=== PATIENT | male | born 1975 | race Caucasian/White ===

== ENCOUNTER 2017-10-06 19:20 | Observation (INO) | payer MEDICARE, SELFPAY ==
[2017-10-06 19:23] VITALS: BP 178/112; PULSE 89; RESP 18; TEMP 37.1; O2SAT 100; BMI 23.8
[2017-10-06 21:31] VITALS: BP 144/97; PULSE 101; RESP 19; O2SAT 98
[2017-10-06 21:46] LABS: Absolute Lymphocyte Count 0.54 X10^3/ul (0.83-4.51); Absolute Neutrophil Count 5.2 X10^3/uL (2.0-7.7); Basophil# 0.01 X10^3/uL; Basophil% 0.2 % (0-1); Eosinophil# 0.03 X10^3/uL; Eosinophils% 0.5 % (0-5); Hematocrit 31.7 % (40-54); Lymphocyte # 0.54 X10^3/ul (4.0); Lymphocyte % 9.2 % (19-41); Mean Corp Hgb Conc 31.5 g/gl (32-36); Mean Corpuscular Hgb 29.7 pg (27.0-32.0); Mean Corpuscular Volume 94.1 fL (80-94); Mean Platelet Vol. 9.4 fl (6.2-12.0); Monocyte# 0.07 X10^3/uL; Monocyte% 1.2 % (0-10); Neutrophil # 5.22 X10^3/uL (2.7-7.7); Neutrophil % 88.9 % (47-70); Platelet Count 180 K/mm3 (150-450); RBC Distribution Width CV 13.6 % (11.6-14.6); RBC Distribution Width SD 46.8 fl (35.1-43.9); Red Blood Count 3.37 M/mm3 (4.6-6.2); White Blood Count 5.9 K/mm3 (4.4-11.0)
[2017-10-06 21:48] LABS: Differential Indicated SCAN CRITERIA MET; POSITIVE COUNT NO; POSITIVE DIFFERENTIAL YES; POSITIVE MORPHOLOGY NO
[2017-10-06 22:00] LABS: Anion Gap 10 (5-15); BUN 40 mg/dL (7-18); BUN/Creat Ratio 2.3 RATIO (10-20); Calcium,Total 6.8 mg/dL (8.5-10.1); Chloride 99 mmol/L (98-107); EST Glomerular Filtration Rate 3 mL/min (>60); Est Glom Filt Rate - Afr Amer 4 mL/min (>60); Estimated Creatinine Clearance 5.74 ml/min; Glucose 153 mg/dL (74-106); Potassium 5.6 mmol/L (3.5-5.1); Sodium Level 138 mmol/L (136-145)
--- NOTE | 2017-10-06 22:02 | EKG12_ITS ---
Test Reason : GENERAL ILLNESS Blood Pressure : / mmHG Vent. Rate : 070 BPM Atrial Rate : 070 BPM P-R Int : 162 ms QRS Dur : 084 ms QT Int : 472 ms P-R-T Axes : 056 -59 041 degrees QTc Int : 509 ms Normal sinus rhythm Left anterior fascicular block Prolonged QT Abnormal ECG Confirmed by VERITO VYAS ([id number]), editor farm journal AMOS LEO ([id number]) on 10/09/2017 2:40:36 PM Referred By: FABIAN Confirmed By:VERITO VYAS
--- NOTE | 2017-10-06 22:02 | ED.RN ---
LAB CALLED WITH CRITICAL LAB RESULTS. POTASSIUM 5.[address] PERALTA MADE AWARE. ORDERS PLACED AT THIS TIME NEPHROLOGY PAGED AT THIS TIME
[2017-10-06] MEDS: Sodium Polystyrene Sulfonate 15 GM/60 ML UDC 30 GM PO (22:18)
--- NOTE | 2017-10-06 22:21 | ED.VISSUMM ---
- ER Visit Summary Date of Service: 10/06/17 Chief Complaint: [Need for dialysis] History of Present Illness: The patient is a 42 M [presents to the emergency department with complaint of needing dialysis. Patient states that earlier today he was at [facility] and had a fistulogram but they would not dialyze him. Patient states his last full dialysis was 3 days ago and that his weight at home and today was 79 kg and normally his dry weight is 72 kg. Patient called his dialysis location and was advised to come to the [facility] for dialysis. Patient denies recent illness.] Physical Examination: [HEENT-PERRLA, EOMI. Cranial nerves II through XII grossly intact. TMs clear. Mucous membranes moist. No adenopathy. Cardiovascular-regular rate and rhythm without murmur or ectopy Lungs-clear to auscultation, chest wall stable without crepitus or subcu emphysema Abdomen-normoactive bowel sounds, soft, nontender, no rebound or rigidity, no peritoneal signs. Extremities-intact ?4, normal range of motion, normal pulses, atraumatic]. Patient has a clean dressing over his left upper arm fistula. Patient has a good thrill noted over the fistula. Patient has normal pulses distally. Test Results: [CBC with differential obtained showed a white blood cell count of 5.9, hemoglobin 10, hematocrit 32, platelets 180. Chemistry showed a potassium of 5.6, glucose 153, BUN 40, creatinine 17.5. EKG obtained showed a sinus rhythm with ventricular rate of 70 bpm with slightly peaked T waves noted throughout. Patient had a prolonged QT.] Emergency Department Course and Treatment: [Patient case was discussed with personal property appraiser on-call Dr. Nevarez]. Patient will be admitted and dialyzed first thing in the morning. Patient case was discussed with Dr. Cristiano Hatch who will admit patient. Patient was given 30 g of Kayexalate p.o. Treatment Plan: [Admit for dialysis] Disposition: [Admit] Impression: [Renal failure Hyperkalemia] This note was generated with [employer] dictation software. It may contain incorrect words, spelling, and punctuation that were not noted in review of the chart prior to signing ED Disposition - Plan for ED Patient: Chief Complaint: General Illness Referrals: Tom Conte MD [Primary Care Provider] -
--- NOTE | 2017-10-06 22:24 | ED.DCSUM_ITS ---
- ER Visit Summary Date of Service: 10/06/17 Chief Complaint: [Need for dialysis] History of Present Illness: The patient is a 42 M [presents to the emergency department with complaint of needing dialysis. Patient states that earlier today he was at [facility] and had a fistulogram but they would not dialyze him. Patient states his last full dialysis was 3 days ago and that his weight at home and today was 79 kg and normally his dry weight is 72 kg. Patient called his dialysis location and was advised to come to [facility] for [facility]. Patient denies recent illness.] Physical Examination: [HEENT-PERRLA, EOMI. Cranial nerves II through XII grossly intact. TMs clear. Mucous membranes moist. No adenopathy. Cardiovascular-regular rate and rhythm without murmur or ectopy Lungs-clear to auscultation, chest wall stable without crepitus or subcu emphysema Abdomen-normoactive bowel sounds, soft, nontender, no rebound or rigidity, no peritoneal signs. Extremities-intact ?4, normal range of motion, normal pulses, atraumatic]. Patient has a clean dressing over his left upper arm fistula. Patient has a good thrill noted over the fistula. Patient has normal pulses distally. Test Results: [CBC with differential obtained showed a white blood cell count of 5.9, hemoglobin 10, hematocrit 32, platelets 180. Chemistry showed a potassium of 5.6, glucose 153, BUN 40, creatinine 17.5. EKG obtained showed a sinus rhythm with ventricular rate of 70 bpm with slightly peaked T waves noted throughout. Patient had a prolonged QT.] Emergency Department Course and Treatment: [Patient case was discussed with synthetic cloth binding cutter on-call Dr. Nevarez]. Patient will be admitted and dialyzed first thing in the morning. Patient case was discussed with Dr. Cristiano Hatch who will admit patient. Patient was given 30 g of Kayexalate p.o. Treatment Plan: [Admit for dialysis] Disposition: [Admit] Impression: [Renal failure Hyperkalemia] This note was generated with [employer] dictation software. It may contain incorrect words, spelling, and punctuation that were not noted in review of the chart prior to signing ED Disposition - Plan for ED Patient: Chief Complaint: General Illness Referrals: Tom Conte MD [Primary Care Provider] -
[2017-10-06 22:25] VITALS: BP 144/97; PULSE 91; RESP 18; O2SAT 97
--- NOTE | 2017-10-06 22:28 | PCM.HP.STD ---
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 (4) ESRD (end stage renal disease) on dialysis Status: Acute (5) HTN (hypertension) Status: Chronic Qualifiers: (6) COPD (chronic obstructive pulmonary disease) Status: Chronic Qualifiers: (7) AICD (automatic cardioverter/defibrillator) present Status: Chronic History of Present Illness Date of Admission: 10/06/17 Chief Complaint: renal failure need dialysis The patient is a 42 year old male patient with end stage renal disease who is dialysis dependent presents to the ER not feeling well. He states earlier today he was at [facility] and had is graft worked on for his dialysis. He has had trouble completing dialysis sessions lately due to arm pain and bleeding from his graft site. He has elevate potassium of 5.6 and creatinine is 17. Nephrology was consulted and admission was requested and plan for dialysis i the AM Past Medical History Past Medical History (Chronic Problems): Chronic Problems Non-compliance with renal dialysis (Chronic) Non compliance with medical treatment (Chronic) Non compliance w medication regimen (Chronic) Renal transplant failure and rejection (Chronic) Renal Txp failure x 2 secondary to non-complaince with treatments and therapies. HTN (hypertension) (Chronic) Anemia due to chronic renal failure treated with erythropoietin, stage 5 (Chronic) Hyperphosphatemia (Chronic) COPD (chronic obstructive pulmonary disease) (Chronic) AICD (automatic cardioverter/defibrillator) present (Chronic) Systolic CHF, chronic (Chronic) Allergies Iodinated Contrast- Oral and IV Dye [CONTRASTS] Allergy (Verified 10/06/17 19:22) Fever and skin rash Penicillins Allergy (Verified 10/06/17 19:22) Anaphylaxis cyclobenzaprine [From Flexeril] Adverse Reaction (Verified 10/06/17 19:22) Other hydralazine Adverse Reaction (Verified 10/06/17 19:22) Low blood pressure tramadol [From Ultram] Adverse Reaction (Verified 10/06/17 19:22) Unknown Home Medications: Ambulatory Orders Medication Instructions Recorded Carvedilol [Coreg (Beta Gurinder)] 25 mg PO BID 10/31/15 Famotidine [Pepcid] 20 mg PO DAILY PRN PRN 10/31/15 Calcium Acetate 4 tab PO TIDCM #100 capsule 09/03/16 Lisinopril [Zestril] 5 mg PO DAILY #30 tablet 12/03/16 Clopidogrel Bisulfate [Plavix] 75 mg PO DAILY 10/06/17 Surgical History: cholecystectomy, - - cadaveric renal transplant x2 in 1996 and 2011, subtotal parathyroidectomy, 2 failed kidney transplants, recent dialysis access Smoking Status: Current every day smoker - *Family History Maternal History Items: - - unknown, does not speak to his mom Paternal History Items: Diabetes, Heart Disease - Father had [place], Hypertension Review of Systems Constitutional: Denies: Chills, Fever, Weight Change HEENT: Denies: Head Aches, Sinus Congestion, Sinus Drainage Cardiovascular: Denies: Chest Pain, Palpitations Respiratory: Denies: Cough, Shortness of breath at rest, Sputum production Gastrointestinal: Denies: Abdominal Pain, Nausea, Vomiting Genitourinary: Denies: Dysuria Musculoskeletal: Reports: Arm Pain. Denies: Joint Pain, Joint Tenderness Skin: Denies: Rash, Wounds Neurological: Denies: Numbness, Tingling, Focal weakness Psychiatric: Denies: Anxiety, Depression, Homicidal Ideations, Suicidal Ideations Hematologic/ Lymphatic: Denies: Easy Bruising, Easy Bleeding VTE Information - Inpt Only VTE Present on Admission: No VTE Mechan Device Prophylaxis: SCD's VTE Pharm Prophylaxis ordered?: No - Physical Exam General: Alert, Oriented x3, Cooperative HEENT: Atraumatic, Normocephalic Neck: Supple Lungs: Clear to auscultation, Normal air movement Cardiovascular: Regular rate, Normal S1, Normal S2 Abdomen: Bowel Sounds Present, Soft, Non Tender Extremities: No edema, Capillary Refill Less than 3 Seconds, - - left arm graft +thrill Skin: No rashes, No breakdown Musculoskeletal: No Tenderness to Palpation of Joints or Extremities Neurological: Neuro grossly intact Psych/Mental Status: Normal Affect, Appropriate Vital Signs Temp Pulse Resp BP Pulse Ox 98.8 F 91 18 144/97 H 97 10/06/17 19:23 10/06/17 22:25 10/06/17 22:25 10/06/17 22:25 10/06/17 22:25 Weight: 171 lb 1.259 oz Body Mass Index (BMI) 23.8 Finger Stick Blood Glucose 86 Laboratory Tests Past 24 Hrs 10/06/17 10/06/17 21:05 21:05 WBC 5.9 RBC 3.37 L Hgb 10.0 L Hct 31.7 L MCV 94.1 H MCH 29.7 MCHC 31.5 L RDW 13.6 RDW Differential 46.8 H Plt Count 180 MPV 9.4 Immature Gran % (Auto) 0.000 Neut % (Auto) 88.9 H Lymph % (Auto) 9.2 L [place] % (Auto) 1.2 Eos % (Auto) 0.5 Baso % (Auto) 0.2 Absolute Neuts (auto) 5.2 Absolute Lymphs (auto) 0.54 L Total Counted Not Reportable Differential Comment Sodium 138 Potassium 5.6 H Chloride 99 Carbon Dioxide 29.0 Anion Gap 10 BUN 40 H Creatinine 17.50 H* Estim Creat Clear Calc 5.74 Est GFR (MDRD) Af Amer 4 L Est GFR (MDRD) Non-Af 3 L BUN/Creatinine Ratio 2.3 L Glucose 153 H Calcium 6.8 L Assessment/Plan Chronic Problems Non-compliance with renal dialysis (Chronic) Non compliance with medical treatment (Chronic) Non compliance w medication regimen (Chronic) Renal transplant failure and rejection (Chronic) Renal Txp failure x 2 secondary to non-complaince with treatments and therapies. HTN (hypertension) (Chronic) Anemia due to chronic renal failure treated with erythropoietin, stage 5 (Chronic) Hyperphosphatemia (Chronic) COPD (chronic obstructive pulmonary disease) (Chronic) AICD (automatic cardioverter/defibrillator) present (Chronic) Systolic CHF, chronic (Chronic) Assessment ESRD Plan - admit to general medical floor - consult nephrology - regular diet plan for dialysis in the AM - [facility] [place] for DVT prophylaxis Code Visit Inpatient E&M: 10403 Init Hosp L2
--- NOTE | 2017-10-06 22:39 | HP.PCM_ITS ---
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 (4) ESRD (end stage renal disease) on dialysis Status: Acute (5) HTN (hypertension) Status: Chronic Qualifiers: (6) COPD (chronic obstructive pulmonary disease) Status: Chronic Qualifiers: (7) AICD (automatic cardioverter/defibrillator) present Status: Chronic History of Present Illness Date of Admission: 10/06/17 Chief Complaint: renal failure need dialysis The patient is a 42 year old male patient with end stage renal disease who is dialysis dependent presents to the ER not feeling well. He states earlier today he was at [facility] and had is graft worked on for his dialysis. He has had trouble completing dialysis sessions lately due to arm pain and bleeding from his graft site. He has elevate potassium of 5.6 and creatinine is 17. Nephrology was consulted and admission was requested and plan for dialysis i the AM Past Medical History Past Medical History (Chronic Problems): Chronic Problems Non-compliance with renal dialysis (Chronic) Non compliance with medical treatment (Chronic) Non compliance w medication regimen (Chronic) Renal transplant failure and rejection (Chronic) Renal Txp failure x 2 secondary to non-complaince with treatments and therapies. HTN (hypertension) (Chronic) Anemia due to chronic renal failure treated with erythropoietin, stage 5 ( Chronic) Hyperphosphatemia (Chronic) COPD (chronic obstructive pulmonary disease) (Chronic) AICD (automatic cardioverter/defibrillator) present (Chronic) Systolic CHF, chronic (Chronic) Allergies Iodinated Contrast- Oral and IV Dye [CONTRASTS] Allergy (Verified 10/06/17 19:22 ) Fever and skin rash Penicillins Allergy (Verified 10/06/17 19:22) Anaphylaxis cyclobenzaprine [From Flexeril] Adverse Reaction (Verified 10/06/17 19:22) Other hydralazine Adverse Reaction (Verified 10/06/17 19:22) Low blood pressure tramadol [From Ultram] Adverse Reaction (Verified 10/06/17 19:22) Unknown Home Medications: Ambulatory Orders Medication Instructions Recorded Carvedilol [Coreg (Beta Gurinder)] 25 mg PO BID 10/31/15 Famotidine [Pepcid] 20 mg PO DAILY PRN PRN 10/31/15 Calcium Acetate 4 tab PO TIDCM #100 capsule 09/03/16 Lisinopril [Zestril] 5 mg PO DAILY #30 tablet 12/03/16 Clopidogrel Bisulfate [Plavix] 75 mg PO DAILY 10/06/17 Surgical History: cholecystectomy, - - cadaveric renal transplant x2 in 1996 and 2011, subtotal parathyroidectomy, 2 failed kidney transplants, recent dialysis access Smoking Status: Current every day smoker - *Family History Maternal History Items: - - unknown, does not speak to his mom Paternal History Items: Diabetes, Heart Disease - Father had [place], Hypertension Review of Systems Constitutional: Denies: Chills, Fever, Weight Change HEENT: Denies: Head Aches, Sinus Congestion, Sinus Drainage Cardiovascular: Denies: Chest Pain, Palpitations Respiratory: Denies: Cough, Shortness of breath at rest, Sputum production Gastrointestinal: Denies: Abdominal Pain, Nausea, Vomiting Genitourinary: Denies: Dysuria Musculoskeletal: Reports: Arm Pain. Denies: Joint Pain, Joint Tenderness Skin: Denies: Rash, Wounds Neurological: Denies: Numbness, Tingling, Focal weakness Psychiatric: Denies: Anxiety, Depression, Homicidal Ideations, Suicidal Ideations Hematologic/ Lymphatic: Denies: Easy Bruising, Easy Bleeding VTE Information - Inpt Only VTE Present on Admission: No VTE Mechan Device Prophylaxis: SCD's VTE Pharm Prophylaxis ordered?: No - Physical Exam General: Alert, Oriented x3, Cooperative HEENT: Atraumatic, Normocephalic Neck: Supple Lungs: Clear to auscultation, Normal air movement Cardiovascular: Regular rate, Normal S1, Normal S2 Abdomen: Bowel Sounds Present, Soft, Non Tender Extremities: No edema, Capillary Refill Less than 3 Seconds, - - left arm graft +thrill Skin: No rashes, No breakdown Musculoskeletal: No Tenderness to Palpation of Joints or Extremities Neurological: Neuro grossly intact Psych/Mental Status: Normal Affect, Appropriate Vital Signs Temp Pulse Resp BP Pulse Ox 98.8 F 91 18 144/97 H 97 10/06/17 19:23 10/06/17 22:25 10/06/17 22:25 10/06/17 22:25 10/06/17 22:25 Weight: 171 lb 1.259 oz Body Mass Index (BMI) 23.8 Finger Stick Blood Glucose 86 Laboratory Tests Past 24 Hrs 10/06/17 10/06/17 21:05 21:05 WBC 5.9 RBC 3.37 L Hgb 10.0 L Hct 31.7 L MCV 94.1 H MCH 29.7 MCHC 31.5 L RDW 13.6 RDW Differential 46.8 H Plt Count 180 MPV 9.4 Immature Gran % (Auto) 0.000 Neut % (Auto) 88.9 H Lymph % (Auto) 9.2 L [place] % (Auto) 1.2 Eos % (Auto) 0.5 Baso % (Auto) 0.2 Absolute Neuts (auto) 5.2 Absolute Lymphs (auto) 0.54 L Total Counted Not Reportable Differential Comment Sodium 138 Potassium 5.6 H Chloride 99 Carbon Dioxide 29.0 Anion Gap 10 BUN 40 H Creatinine 17.50 H* Estim Creat Clear Calc 5.74 Est GFR (MDRD) Af Amer 4 L Est GFR (MDRD) Non-Af 3 L BUN/Creatinine Ratio 2.3 L Glucose 153 H Calcium 6.8 L Assessment/Plan Chronic Problems Non-compliance with renal dialysis (Chronic) Non compliance with medical treatment (Chronic) Non compliance w medication regimen (Chronic) Renal transplant failure and rejection (Chronic) Renal Txp failure x 2 secondary to non-complaince with treatments and therapies. HTN (hypertension) (Chronic) Anemia due to chronic renal failure treated with erythropoietin, stage 5 ( Chronic) Hyperphosphatemia (Chronic) COPD (chronic obstructive pulmonary disease) (Chronic) AICD (automatic cardioverter/defibrillator) present (Chronic) Systolic CHF, chronic (Chronic) Assessment ESRD Plan - admit to general medical floor - consult nephrology - regular diet plan for dialysis in the AM [place] [facility] [place] Code Visit Inpatient E&M: 02586 Init Hosp L2
[2017-10-06 23:16] VITALS: BMI 24.1
[2017-10-07 00:16] VITALS: BMI 24.1
[2017-10-07 01:12] VITALS: PULSE 90; RESP 16
[2017-10-07 06:00] VITALS: BP 126/79; PULSE 78; RESP 16; TEMP 36.7; O2SAT 100
[2017-10-07] MEDS: Calcium Acetate 667 MG Capsule 2668 MG PO ×3 (09:46→22:34)
[2017-10-07] MEDS: Clopidogrel Bisulfate 75 MG Tablet PO (09:47)
[2017-10-07] MEDS: Lisinopril 5 MG Tablet PO (09:47)
[2017-10-07] MEDS: Carvedilol 25 MG Tablet PO (09:47)
--- NOTE | 2017-10-07 09:54 | PCM.CONS.R ---
Consultation - Renal PCP/ Referring MD: Requesting physician: [] Primary care physician: Tom Conte MD - History of Present Illness History of Present Illness: The patient is a 42 year old M ESRD on MWF schedule of HD. Patient underwent fistulagram with angioplasty yesterday at [facility] due to bleeding from the AVF site. Patient missed HD session yesterday due to vascular intervention. Patient presented to [place] [facility] because he is not feeling well. K was 5.6. Patient was admitted to get dialysis this morning. Patient is complaining of pain at the cannulation site. ROS: 12 systems review is negative today except the pain at the AVF cannulation site[] - Allergies Allergies: Allergies Iodinated Contrast- Oral and IV Dye [CONTRASTS] Allergy (Verified 10/06/17 19:22) Fever and skin rash Penicillins Allergy (Verified 10/06/17 19:22) Anaphylaxis cyclobenzaprine [From Flexeril] Adverse Reaction (Verified 10/07/17 00:05) dizzy, faints hydralazine Adverse Reaction (Verified 10/06/17 19:22) Low blood pressure tramadol [From Ultram] Adverse Reaction (Verified 10/07/17 00:05) Rash - Current Medications Current Medications: Current Medications Calcium Acetate (Phoslo Gel Cap) 2,668 mg PO TIDCM [facility] Last Admin: 10/07/17 09:46 Dose: 2,668 mg Carvedilol (Coreg) 25 mg PO BID [facility] Last Admin: 10/07/17 09:47 Dose: 25 mg Clopidogrel Bisulfate (Plavix) 75 mg PO DAILY [facility] Last Admin: 10/07/17 09:47 Dose: 75 mg Famotidine (Pepcid) 20 mg PO DAILY PRN PRN PRN Reason: INDIGESTION Lisinopril (Zestril) 5 mg PO DAILY [facility] Last Admin: 10/07/17 09:47 Dose: 5 mg Magnesium Hydroxide (Milk Of Magnesia) 30 ml PO DAILY PRN PRN PRN Reason: Constipation Sodium Chloride () 5 - 30 ml IV UD PRN PRN Reason: SALINE FLUSH - Past Medical History Past Medical History (Chronic Problems): Chronic Problems Non-compliance with renal dialysis (Chronic) Non compliance with medical treatment (Chronic) Non compliance w medication regimen (Chronic) Renal transplant failure and rejection (Chronic) Renal Txp failure x 2 secondary to non-complaince with treatments and therapies. HTN (hypertension) (Chronic) Anemia due to chronic renal failure treated with erythropoietin, stage 5 (Chronic) Hyperphosphatemia (Chronic) COPD (chronic obstructive pulmonary disease) (Chronic) AICD (automatic cardioverter/defibrillator) present (Chronic) Systolic CHF, chronic (Chronic) - Past Surgical History Surgical History: cholecystectomy, - - cadaveric renal transplant x2 in 1996 and 2011, subtotal parathyroidectomy, 2 failed kidney transplants, recent dialysis access - Social History Smoking Status: Current every day smoker - Family History Maternal History Items: - - unknown, does not speak to his mom Paternal History Items: Diabetes, Heart Disease - Father had [place], Hypertension - Physical Exam General: Alert, Oriented x3 HEENT: Atraumatic Oral: Moist Mucosa Neck: Supple, No JVD Lungs: Clear to auscultation Cardiovascular: Regular rate, Regular Rhythm, Normal S1, Normal S2 Abdomen: Bowel Sounds Present, Soft, Non Tender Extremities: No clubbing, No cyanosis, No edema Lymphatic: No Cervical, Supraclavicular, or Inguinal Adenopathy Neurological: Cranial nerves II-XII grossly intact Psych/Mental Status: Normal Affect Vital Signs Temp Pulse Resp BP Pulse Ox 98.0 F 78 16 126/79 H 100 10/07/17 06:00 10/07/17 06:00 10/07/17 06:00 10/07/17 06:00 10/07/17 06:00 Oxygen Delivery Method Room Air Weight: 78.5 kg Body Mass Index (BMI) 24.1 Assessment/Plan 1- ESRD on MWF Missed HD session Friday 10/06 HD session today foor 3.5 hours, BQ 400 BQ 600 UF 2L HD access is LUE AVF which has good thrill and bruit. 2- Hyperkalemia: HD session today with 2 K bath. Will continue to follow Daniela Oro MD [phone]
--- NOTE | 2017-10-07 10:00 | CON.PCM_ITS ---
Consultation - Renal PCP/ Referring MD: Requesting physician: [] Primary care physician: Tom Conte MD - History of Present Illness History of Present Illness: The patient is a 42 year old M ESRD on MWF schedule of HD. Patient underwent fistulagram with angioplasty yesterday at [facility] due to bleeding from the AVF site. Patient missed HD session yesterday due to vascular intervention. Patient presented to [place] ED because he is not feeling well. K was 5.6. Patient was admitted to get dialysis this morning. Patient is complaining of pain at the cannulation site. ROS: 12 systems review is negative today except the pain at the AVF cannulation site[] - Allergies Allergies: Allergies Iodinated Contrast- Oral and IV Dye [CONTRASTS] Allergy (Verified 10/06/17 19:22 ) Fever and skin rash Penicillins Allergy (Verified 10/06/17 19:22) Anaphylaxis cyclobenzaprine [From Flexeril] Adverse Reaction (Verified 10/07/17 00:05) dizzy, faints hydralazine Adverse Reaction (Verified 10/06/17 19:22) Low blood pressure tramadol [From Ultram] Adverse Reaction (Verified 10/07/17 00:05) Rash - Current Medications Current Medications: Current Medications Calcium Acetate (Phoslo Gel Cap) 2,668 mg PO TIDCM [facility] Last Admin: 10/07/17 09:46 Dose: 2,668 mg Carvedilol (Coreg) 25 mg PO BID [facility] Last Admin: 10/07/17 09:47 Dose: 25 mg Clopidogrel Bisulfate (Plavix) 75 mg PO DAILY [facility] Last Admin: 10/07/17 09:47 Dose: 75 mg Famotidine (Pepcid) 20 mg PO DAILY PRN PRN PRN Reason: INDIGESTION Lisinopril (Zestril) 5 mg PO DAILY [facility] Last Admin: 10/07/17 09:47 Dose: 5 mg Magnesium Hydroxide (Milk Of Magnesia) 30 ml PO DAILY PRN PRN PRN Reason: Constipation Sodium Chloride () 5 - 30 ml IV UD PRN PRN Reason: SALINE FLUSH - Past Medical History Past Medical History (Chronic Problems): Chronic Problems Non-compliance with renal dialysis (Chronic) Non compliance with medical treatment (Chronic) Non compliance w medication regimen (Chronic) Renal transplant failure and rejection (Chronic) Renal Txp failure x 2 secondary to non-complaince with treatments and therapies. HTN (hypertension) (Chronic) Anemia due to chronic renal failure treated with erythropoietin, stage 5 ( Chronic) Hyperphosphatemia (Chronic) COPD (chronic obstructive pulmonary disease) (Chronic) AICD (automatic cardioverter/defibrillator) present (Chronic) Systolic CHF, chronic (Chronic) - Past Surgical History Surgical History: cholecystectomy, - - cadaveric renal transplant x2 in 1996 and 2011, subtotal parathyroidectomy, 2 failed kidney transplants, recent dialysis access - Social History Smoking Status: Current every day smoker - Family History Maternal History Items: - - unknown, does not speak to his mom Paternal History Items: Diabetes, Heart Disease - Father had RI, Hypertension - Physical Exam General: Alert, Oriented x3 HEENT: Atraumatic Oral: Moist Mucosa Neck: Supple, No JVD Lungs: Clear to auscultation Cardiovascular: Regular rate, Regular Rhythm, Normal S1, Normal S2 Abdomen: Bowel Sounds Present, Soft, Non Tender Extremities: No clubbing, No cyanosis, No edema Lymphatic: No Cervical, Supraclavicular, or Inguinal Adenopathy Neurological: Cranial nerves II-XII grossly intact Psych/Mental Status: Normal Affect Vital Signs Temp Pulse Resp BP Pulse Ox 98.0 F 78 16 126/79 H 100 10/07/17 06:00 10/07/17 06:00 10/07/17 06:00 10/07/17 06:00 10/07/17 06:00 Oxygen Delivery Method Room Air Weight: 78.5 kg Body Mass Index (BMI) 24.1 Assessment/Plan 1- ESRD on MWF Missed HD session Friday 10/06 HD session today foor 3.5 hours, BQ 400 BQ 600 UF 2L HD access is LUE AVF which has good thrill and bruit. 2- Hyperkalemia: HD session today with 2 K bath. Will continue to follow Daniela Oro MD [phone]
--- NOTE | 2017-10-07 10:25 | PCM.PROGNOTE ---
Subjective: Chief complaint: Follow-up after admission for mild hypokalemia and highly elevated creatinine due to missed hemodialysis secondary to malfunctioning AV fistula. Patient seen and examined. No acute events overnight. He denies any specific complaints. He denies chest pain or shortness of breath. No abdominal pain, nausea vomiting. He mentioned that he has been having trouble and problems with his left arm AV fistula with multiple sticks, bleeding and pain of his left upper arm during dialysis. Yesterday, he underwent fistulogram with balloon dilatation of the left subclavian vein stent and that was done at [facility]. The patient came last night to the emergency room and mentioned that he did not get his hemodialysis yesterday after he had the fistulogram and he gained about 7 kg. His vital signs are stable. - Physical Exam General: Alert, Oriented x3, Cooperative, No apparent distress HEENT: Atraumatic, PERRLA, EOMI Oral: Moist Mucosa, No Gingival or Mucosal Lesions/ Ulcerations Neck: Supple, No JVD, Negative Carotid Bruits, Trachea Midline, Thyroid Normal Size and Texture Lungs: Clear to auscultation, No rhonchi, No wheeze, No rales, Diminished Cardiovascular: Regular rate, Regular Rhythm, Normal S1, Normal S2, No murmurs, PMI Normal Abdomen: Bowel Sounds Present, Soft, Non Tender, Non-Distended, No Hepato-splenomegaly Extremities: No clubbing, No cyanosis, No edema Skin: No rashes, No breakdown Lymphatic: No Cervical, Supraclavicular, or Inguinal Adenopathy Neurological: Cranial nerves II-XII grossly intact, Motor Exam 5/5 strength throughout Psych/Mental Status: Normal Affect, Appropriate, Alert and oriented to time, place, person, mood and affect Vital Signs Temp Pulse Resp BP Pulse Ox 98.0 F 78 16 126/79 H 100 10/07/17 06:00 10/07/17 06:00 10/07/17 06:00 10/07/17 06:00 10/07/17 06:00 Oxygen Delivery Method Room Air Weight: 173 lb 1.006 oz Body Mass Index (BMI) 24.1 Laboratory Tests 10/06/17 10/06/17 Range/Units 21:05 21:05 WBC 5.9 (4.4-11.0) K/mm3 RBC 3.37 L (4.6-6.2) M/mm3 Hgb 10.0 L (13.0-16.5) g/dl Hct 31.7 L (40-54) % MCV 94.1 H (80-94) fL MCH 29.7 (27.0-32.0) pg MCHC 31.5 L (32-36) g/gl RDW 13.6 (11.6-14.6) % RDW Differential 46.8 H (35.1-43.9) fl Plt Count 180 (150-450) K/mm3 MPV 9.4 (6.2-12.0) fl Immature Gran % (Auto) 0.000 (0.0-0.9) % Neut % (Auto) 88.9 H (47-70) % Lymph % (Auto) 9.2 L (19-41) % [place] % (Auto) 1.2 (0-10) % Eos % (Auto) 0.5 (0-5) % Baso % (Auto) 0.2 (0-1) % Absolute Neuts (auto) 5.2 (2.0-7.7) X10^3/uL Absolute Lymphs (auto) 0.54 L (0.83-4.51) X10^3/ul Total Counted Not Reportable Differential Comment Sodium 138 (136-145) mmol/L Potassium 5.6 H (3.5-5.1) mmol/L Chloride 99 (98-107) mmol/L Carbon Dioxide 29.0 (21.0-32.0) mmol/L Anion Gap 10 (5-15) BUN 40 H (7-18) mg/dL Creatinine 17.50 H* (0.70-1.30) mg/dL Estim Creat Clear Calc 5.74 ml/min Est GFR (MDRD) Af Amer 4 L (>60) mL/min Est GFR (MDRD) Non-Af 3 L (>60) mL/min BUN/Creatinine Ratio 2.3 L (10-20) RATIO Glucose 153 H (74-106) mg/dL Calcium 6.8 L (8.5-10.1) mg/dL Medical Necessity - Tobacco Use Smoking Status: Current every day smoker Assessment/Plan This is a 42 years old male patient presented to the emergency room because he missed his hemodialysis yesterday, getting around 7 kg and he requests to be admitted for hemodialysis. The patient has been having issues with his left arm AV fistula with left upper arm pain, bleeding and difficult cannulation for hemodialysis over the last few weeks and he underwent fistulogram with balloon dilatation of the left subclavian vein stent, found to have highly elevated BUN and creatinine as well as mild hyperkalemia. #1 ESRD on hemodialysis: Missed hemodialysis yesterday because of malfunctioning left upper arm AV fistula. Yesterday, he underwent fistulogram with balloon dilatation of the left subclavian vein stent at [facility]. Patient has been having issues with bleeding, pain and difficult cannulation of the AV fistula over the last few weeks and he missed his hemodialysis yesterday. His creatinine is 17 and his potassium is 5.6. He has no symptoms. Denies chest pain or shortness of breath. No evidence of acute pulmonary edema. His vitals are stable. Nephrology consulted and plan for hemodialysis this afternoon. #2 hyperkalemia: Secondary to missed hemodialysis, admission potassium was 5.6. No EKG changes. He received 1 dose of Kayexalate. Plan for hemodialysis today, repeat BMP tomorrow morning. #3 hypertension: Blood pressure stable, continue Coreg and lisinopril. #4 COPD: Clinically stable, pulse ox is normal on room air. Plan for albuterol as needed. #5 chronic anemia: Secondary to anemia of chronic disease, hemoglobin and hematocrit are stable at baseline. #6 ESRD on hemodialysis MWF: Status post failed renal transplant ?2. Currently on hemodialysis. Plan as above. #7 DVT prophylaxis: Subcu heparin. This note was generated with [employer] dictation software. It may contain incorrect words, spelling, and punctuation that were not noted in checking the note before signing.
--- NOTE | 2017-10-07 10:29 | PN_ITS ---
Subjective: Chief complaint: Follow-up after admission for mild hypokalemia and highly elevated creatinine due to missed hemodialysis secondary to malfunctioning AV fistula. Patient seen and examined. No acute events overnight. He denies any specific complaints. He denies chest pain or shortness of breath. No abdominal pain, nausea vomiting. He mentioned that he has been having trouble and problems with his left arm AV fistula with multiple sticks, bleeding and pain of his left upper arm during dialysis. Yesterday, he underwent fistulogram with balloon dilatation of the left subclavian vein stent and that was done at [facility]. The patient came last night to the emergency room and mentioned that he did not get his hemodialysis yesterday after he had the fistulogram and he gained about 7 kg. His vital signs are stable. - Physical Exam General: Alert, Oriented x3, Cooperative, No apparent distress HEENT: Atraumatic, PERRLA, EOMI Oral: Moist Mucosa, No Gingival or Mucosal Lesions/ Ulcerations Neck: Supple, No JVD, Negative Carotid Bruits, Trachea Midline, Thyroid Normal Size and Texture Lungs: Clear to auscultation, No rhonchi, No wheeze, No rales, Diminished Cardiovascular: Regular rate, Regular Rhythm, Normal S1, Normal S2, No murmurs, PMI Normal Abdomen: Bowel Sounds Present, Soft, Non Tender, Non-Distended, No Hepato- splenomegaly Extremities: No clubbing, No cyanosis, No edema Skin: No rashes, No breakdown Lymphatic: No Cervical, Supraclavicular, or Inguinal Adenopathy Neurological: Cranial nerves II-XII grossly intact, Motor Exam 5/5 strength throughout Psych/Mental Status: Normal Affect, Appropriate, Alert and oriented to time, place, person, mood and affect Vital Signs Temp Pulse Resp BP Pulse Ox 98.0 F 78 16 126/79 H 100 10/07/17 06:00 10/07/17 06:00 10/07/17 06:00 10/07/17 06:00 10/07/17 06:00 Oxygen Delivery Method Room Air Weight: 173 lb 1.006 oz Body Mass Index (BMI) 24.1 Laboratory Tests 3 10/06/17 10/06/17 Range/Units 21:05 21:05 WBC 5.9 (4.4-11.0) K/mm3 RBC 3.37 L (4.6-6.2) M/mm3 Hgb 10.0 L (13.0-16.5) g/dl Hct 31.7 L (40-54) % MCV 94.1 H (80-94) fL MCH 29.7 (27.0-32.0) pg MCHC 31.5 L (32-36) g/gl RDW 13.6 (11.6-14.6) % RDW Differential 46.8 H (35.1-43.9) fl Plt Count 180 (150-450) K/mm3 MPV 9.4 (6.2-12.0) fl Immature Gran % (Auto) 0.000 (0.0-0.9) % Neut % (Auto) 88.9 H (47-70) % Lymph % (Auto) 9.2 L (19-41) % [place] % (Auto) 1.2 (0-10) % Eos % (Auto) 0.5 (0-5) % Baso % (Auto) 0.2 (0-1) % Absolute Neuts (auto) 5.2 (2.0-7.7) X10^3/uL Absolute Lymphs (auto) 0.54 L (0.83-4.51) X10^3/ul Total Counted Not Reportable Differential Comment Sodium 138 (136-145) mmol/L Potassium 5.6 H (3.5-5.1) mmol/L Chloride 99 (98-107) mmol/L Carbon Dioxide 29.0 (21.0-32.0) mmol/L Anion Gap 10 (5-15) BUN 40 H (7-18) mg/dL Creatinine 17.50 H* (0.70-1.30) mg/dL Estim Creat Clear Calc 5.74 ml/min Est GFR (MDRD) Af Amer 4 L (>60) mL/min Est GFR (MDRD) Non-Af 3 L (>60) mL/min BUN/Creatinine Ratio 2.3 L (10-20) RATIO Glucose 153 H (74-106) mg/dL Calcium 6.8 L (8.5-10.1) mg/dL Medical Necessity - Tobacco Use Smoking Status: Current every day smoker Assessment/Plan This is a 42 years old male patient presented to the emergency room because he missed his hemodialysis yesterday, getting around 7 kg and he requests to be admitted for hemodialysis. The patient has been having issues with his left arm AV fistula with left upper arm pain, bleeding and difficult cannulation for hemodialysis over the last few weeks and he underwent fistulogram with balloon dilatation of the left subclavian vein stent, found to have highly elevated BUN and creatinine as well as mild hyperkalemia. #1 ESRD on hemodialysis: Missed hemodialysis yesterday because of malfunctioning left upper arm AV fistula. Yesterday, he underwent fistulogram with balloon dilatation of the left subclavian vein stent at [facility]. Patient has been having issues with bleeding, pain and difficult cannulation of the AV fistula over the last few weeks and he missed his hemodialysis yesterday. His creatinine is 17 and his potassium is 5.6. He has no symptoms. Denies chest pain or shortness of breath. No evidence of acute pulmonary edema. His vitals are stable. Nephrology consulted and plan for hemodialysis this afternoon. #2 hyperkalemia: Secondary to missed hemodialysis, admission potassium was 5.6. No EKG changes. He received 1 dose of Kayexalate. Plan for hemodialysis today, repeat BMP tomorrow morning. #3 hypertension: Blood pressure stable, continue Coreg and lisinopril. #4 COPD: Clinically stable, pulse ox is normal on room air. Plan for albuterol as needed. #5 chronic anemia: Secondary to anemia of chronic disease, hemoglobin and hematocrit are stable at baseline. #6 ESRD on hemodialysis MWF: Status post failed renal transplant ?2. Currently on hemodialysis. Plan as above. #7 DVT prophylaxis: Subcu heparin. This note was generated with [employer] dictation software. It may contain incorrect words, spelling, and punctuation that were not noted in checking the note before signing.
--- NOTE | 2017-10-07 11:46 | CASEMGMT ---
RN NIELS Face to Face with patient for initial transition planning/care coordination assessment. RN NIELS introduced self and role at [facility]. Patient sitting in chair, alert and oriented. Patient willing to participate in assessment and is able to answer all questions appropriately. Care providers, pharmacy, and demographics verified. Patient states that he is currently looking for new place to live and has recently been in assisted and has to go back. Patient states he has no further needs or concerns at this time. Referral made to NASRIN Ge for information regarding housing information. CM to follow for discharge planning needs that may arise. Disposition Plan: Patient to discharge home with family support and follow-up plans in place.
[2017-10-07 11:53] VITALS: BP 132/95; PULSE 86; RESP 16; TEMP 36.6; O2SAT 97
--- NOTE | 2017-10-07 13:32 | NURSING ---
pt in halls stated that he does not want his fistula to work so he does not have to go back to assisted. he stated that he wanted the port placed back in his chest that way he would not be allowed to be in assisted. pt also stated that if he had to go to assisted he was going to removed the dressing to his fistula and show the police that he should not be in assisted. he also stated that he might just leave the [facility].
[2017-10-07 14:43] VITALS: BP 129/78; PULSE 66; RESP 16; TEMP 36.7; O2SAT 100
--- NOTE | 2017-10-07 14:49 | NURSING ---
dialysis nurse with pt.
[2017-10-07 19:46] VITALS: BP 115/63; PULSE 68; RESP 16; TEMP 36.7
[2017-10-07 19:50] VITALS: BP 102/53; PULSE 70; RESP 18; TEMP 37.2; O2SAT 98
--- NOTE | 2017-10-07 19:52 | DIALYSIS ---
hemodialysis completed x 3.5 hrs. 2K bath. See HD flowsheet on chart for details. UF 2000ml. Access via AYDE AVG. pt dyllan well.
[2017-10-07] MEDS: Heparin Injection (Vial) 5,000 UNIT/ML VIAL 5000 UNIT SC (22:34)
[2017-10-08 05:13] VITALS: BP 128/84; PULSE 64; RESP 18; TEMP 36.6; O2SAT 100
[2017-10-08 06:12] LABS: Absolute Lymphocyte Count 1.64 X10^3/ul (0.83-4.51); Absolute Neutrophil Count 2.9 X10^3/uL (2.0-7.7); Basophil# 0.02 X10^3/uL; Basophil% 0.4 % (0-1); Eosinophil# 0.11 X10^3/uL; Eosinophils% 2.1 % (0-5); Hematocrit 28.8 % (40-54); Hemoglobin 9.1 g/dl (13.0-16.5); Lymphocyte # 1.64 X10^3/ul (4.0); Lymphocyte % 31.8 % (19-41); Mean Corp Hgb Conc 31.6 g/gl (32-36); Mean Corpuscular Hgb 29.9 pg (27.0-32.0); Mean Corpuscular Volume 94.7 fL (80-94); Mean Platelet Vol. 9.5 fl (6.2-12.0); Monocyte# 0.52 X10^3/uL; Monocyte% 10.1 % (0-10); Neutrophil # 2.86 X10^3/uL (2.7-7.7); Neutrophil % 55.6 % (47-70); Platelet Count 166 K/mm3 (150-450); RBC Distribution Width CV 13.7 % (11.6-14.6); RBC Distribution Width SD 47.8 fl (35.1-43.9); Red Blood Count 3.04 M/mm3 (4.6-6.2); White Blood Count 5.2 K/mm3 (4.4-11.0)
[2017-10-08 06:19] LABS: Anion Gap 8 (5-15); BUN 25 mg/dL (7-18); BUN/Creat Ratio 2.2 RATIO (10-20); Calcium,Total 6.8 mg/dL (8.5-10.1); Chloride 98 mmol/L (98-107); EST Glomerular Filtration Rate 5 mL/min (>60); Est Glom Filt Rate - Afr Amer 6 mL/min (>60); Estimated Creatinine Clearance 8.66 ml/min; Glucose 84 mg/dL (74-106); Potassium 4.2 mmol/L (3.5-5.1); Sodium Level 140 mmol/L (136-145)
[2017-10-08 06:26] LABS: POSITIVE COUNT NO; POSITIVE DIFFERENTIAL NO; POSITIVE MORPHOLOGY NO
--- NOTE | 2017-10-08 08:50 | DCINST_ITS ---
You will use the following diet at home:: Cardiac, Renal (restricted protein/ sodium) Your food should be the consistency of: Regular Discharge Activity: Return to Normal Activity Weight Bearing Status: Full weight bearing Call your doctor if you observe: Fever of 101 or Higher, Shortness of breath, Dizziness, Fainting spells, Chest pain, Increased palpitations (irregular heartbeat), Uncontrolled pain Additional Instructions: Please follow-up with your kidney doctor as soon as your vascular surgeon who performed the dialysis fistula. Allergies/Adverse Reactions: Allergies Iodinated Contrast- Oral and IV Dye [CONTRASTS] Allergy (Verified 10/06/17 19:22 ) Fever and skin rash Penicillins Allergy (Verified 10/06/17 19:22) Anaphylaxis cyclobenzaprine [From Flexeril] Adverse Reaction (Verified 10/07/17 00:05) dizzy, faints hydralazine Adverse Reaction (Verified 10/06/17 19:22) Low blood pressure tramadol [From Ultram] Adverse Reaction (Verified 10/07/17 00:05) Rash Medications to take at Discharge Carvedilol [Coreg (Beta Gurinder)] 25 mg PO BID 10/31/15 Famotidine [Pepcid] 20 mg PO DAILY PRN PRN 10/31/15 Calcium Acetate 4 tab PO TIDCM #100 capsule 09/03/16 Lisinopril [Zestril] 5 mg PO DAILY #30 tablet 12/03/16 Clopidogrel Bisulfate [Plavix] 75 mg PO DAILY 10/06/17 Primary Care Physician: Tom Conte MD [Primary Care Provider] - Please follow up with your Primary Care Physician in: 1 week.
--- NOTE | 2017-10-08 09:39 | CASEMGMT ---
Social Work Note NASRIN met with pt to discuss discharge planning. Per RN NIELS Red pt is from correction and is not wanting to go back and pt is currently looking for houses to live in as well. NASRIN met with pt, introduced self and role at [facility]. Pt states that he is unsure at this time where he is going at discharge. Pt states that he is waiting for a phone call to determine if he is able to go home or go back to correction at discharge. SW offered support to pt in case he does have to go to correction. Pt states that previously he was living at his cousins home. Pt states that he is currently still looking for a place to live. SW offered to provide pt with housing resources but pt denied. He states 'I don't need any resources I have it handled. SW let pt know that if he decides to have housing resources to let staff know and this worker can come back to see him. Pt denied additional needs or concerns at this time. Plan: Return home Rosalina Ge [employer], [employer]
[2017-10-08 10:00] VITALS: BP 126/94; PULSE 71; RESP 18; TEMP 37.1; O2SAT 100
[2017-10-08] MEDS: Clopidogrel Bisulfate 75 MG Tablet PO (10:06)
[2017-10-08] MEDS: Heparin Injection (Vial) 5,000 UNIT/ML VIAL 5000 UNIT SC (10:06)
[2017-10-08] MEDS: Calcium Acetate 667 MG Capsule 2668 MG PO ×3 (10:06→18:01)
[2017-10-08] MEDS: Carvedilol 25 MG Tablet PO (10:06)
[2017-10-08] MEDS: Nepro Liquid 120 ML LIQUID PO (10:07)
--- NOTE | 2017-10-08 11:30 | PN.RENAL_ITS ---
Subjective: Tolerated HD session well yesterday with 2L UF Seen today today during HD session Tolerating the session well - Physical Exam General: Alert, Oriented x3 HEENT: Atraumatic Oral: Moist Mucosa Neck: Supple, No JVD Lungs: Clear to auscultation, Normal air movement Cardiovascular: Regular rate, Normal S1, Normal S2 Abdomen: Bowel Sounds Present, Soft Extremities: No clubbing, No edema Musculoskeletal: No Tenderness to Palpation of Joints or Extremities Lymphatic: No Cervical, Supraclavicular, or Inguinal Adenopathy Neurological: Cranial nerves II-XII grossly intact, Neuro grossly intact Psych/Mental Status: Normal Affect Vital Signs Temp Pulse Resp BP Pulse Ox 98 F 64 18 128/84 H 100 10/08/17 05:13 10/08/17 05:13 10/08/17 05:13 10/08/17 05:13 10/08/17 05:13 Oxygen Delivery Method Room Air Weight: 78.5 kg Body Mass Index (BMI) 24.1 Intake and Output for Last 24 Hours 10/06/17 10/07/17 10/08/17 23:59 23:59 23:59 Intake Total 950 / 950 1600 / 1600 Output Total 1999 / 1999 Balance -1050 / -1050 1600 / 1600 Laboratory Tests Past 24 Hrs 10/08/17 10/08/17 05:10 05:10 WBC 5.2 RBC 3.04 L Hgb 9.1 L Hct 28.8 L MCV 94.7 H MCH 29.9 MCHC 31.6 L RDW 13.7 RDW Differential 47.8 H Plt Count 166 MPV 9.5 Immature Gran % (Auto) 0.000 Neut % (Auto) 55.6 Lymph % (Auto) 31.8 [place] % (Auto) 10.1 H Eos % (Auto) 2.1 Baso % (Auto) 0.4 Absolute Neuts (auto) 2.9 Absolute Lymphs (auto) 1.64 Total Counted Not Reportable Sodium 140 Potassium 4.2 Chloride 98 Carbon Dioxide 34.0 H Anion Gap 8 BUN 25 H Creatinine 11.60 H* Estim Creat Clear Calc 8.66 Est GFR (MDRD) Af Amer 6 L Est GFR (MDRD) Non-Af 5 L BUN/Creatinine Ratio 2.2 L Glucose 84 Calcium 6.8 L Medical Necessity - Tobacco Use Smoking Status: Current every day smoker Assessment/Plan 1- ESRD on MWF Last HD session 10/07 with 2 L UF HD session today foor 3 hours, BQ 400 BQ 600 UF 2L HD access is LUE AVF which has good thrill and bruit. 2- Hyperkalemia: resolved with HD Will continue to follow Daniela Oro MD [phone]
[2017-10-08 15:00] VITALS: BP 147/81; PULSE 59; RESP 16; TEMP 37.1; O2SAT 99
--- NOTE | 2017-10-08 17:34 | DIALYSIS ---
HD X 3 HRS ON A 3K BATH. UF -2600ML. TOLERATED TREATMENT WELL. POST WEIGHT 74.8KG. EPOGEN AND VENOFER GIVEN DURING DIALYSIS. [place] [facility]. REPORT GIVEN TO FLOOR RN
--- NOTE | 2017-10-08 18:29 | NURSING ---
while giving discharge inst pt asked if he could stay 2 more days because he does not want to go to custodial. told pt no. he stated that he was going to leave and go to a different hospital. he
--- NOTE | 2017-10-09 12:42 | PCM.DC.SUM ---
Discharge Date and Diagnosis Date of Admission: 10/06/17 Date of Discharge: 10/08/17 - Primary Discharge Diagnosis #1 missed hemodialysis, probable early uremia. #2 hyperkalemia. #3 malfunctioning left upper arm AV fistula, status post fistulogram with balloon dilatation of the left subclavian vein stent that was done at [facility] on the day of admission. - Secondary Discharge Diagnosis Chronic Problems Non-compliance with renal dialysis (Chronic) Non compliance with medical treatment (Chronic) Non compliance w medication regimen (Chronic) Renal transplant failure and rejection (Chronic) Renal Txp failure x 2 secondary to non-complaince with treatments and therapies. HTN (hypertension) (Chronic) Anemia due to chronic renal failure treated with erythropoietin, stage 5 (Chronic) Hyperphosphatemia (Chronic) COPD (chronic obstructive pulmonary disease) (Chronic) AICD (automatic cardioverter/defibrillator) present (Chronic) Systolic CHF, chronic (Chronic) Hospital Course and Treatment Dr. Oro: Nephrology. Operations: None Procedures: Dialysis Summary of Care Provided: Patient seen and examined on the day of discharge and appeared to be stable for discharge home. He denied any significant symptoms. Vital signs are stable. - Physical Exam General: Alert, Oriented x3, Cooperative, No apparent distress. HEENT: Atraumatic, PERRLA, EOMI. Neck: Supple, No JVD, Negative Carotid Bruits, Trachea Midline, Thyroid Normal. Lungs: Clear to auscultation, Normal air movement, No rhonchi, No wheeze, No rales. Cardiovascular: Regular rate, Regular Rhythm, Normal S1, Normal S2, PMI Normal. Abdomen: Bowel Sounds Present, Soft, Non Tender, Non-Distended, No Hepato-splenomegaly. Extremities: No clubbing, No cyanosis, No edema Skin: No rashes, No breakdown Neurological: Neuro grossly intact Vital Signs are stable. Hospital course: The patient is a 42 year old M presented to the emergency room requesting admission for hemodialysis because he missed his hemodialysis after he underwent fistulogram with balloon dilatation of the left subclavian vein stent at [facility] that was done on the day of admission. On admission, his BUN was 40 and his creatinine was 17.5. Patient was anxious upon admission and that could be due to probable early uremia. His potassium was 5.6 upon admission without EKG changes. Nephrology consulted and recommended to continue dialysis through the left upper arm AV fistula. Dialysis performed ?2 during this admission through the left upper arm AV fistula without any problems. His potassium came back to normal after dialysis. Patient's vital signs were stable throughout admission. Patient discharged home in a stable medical condition, discharged on his chronic home medication without any changes, recommended follow-up with his customer energy specialist in 2 weeks, follow-up with PCP in 1 week and follow-up with his vascular surgeon at [facility] in the near future for repeat evaluation of his left upper arm AV fistula. Discharge Activity: Return to Normal Activity Weight Bearing Status: Full weight bearing Call your doctor if you observe: Fever of 101 or Higher, Shortness of breath, Dizziness, Fainting spells, Chest pain, Increased palpitations (irregular heartbeat), Uncontrolled pain Home Medications: Medications to take at Discharge Carvedilol [Coreg (Beta Gurinder)] 25 mg PO BID 10/31/15 Famotidine [Pepcid] 20 mg PO DAILY PRN PRN 10/31/15 Calcium Acetate 4 tab PO TIDCM #100 capsule 09/03/16 Lisinopril [Zestril] 5 mg PO DAILY #30 tablet 12/03/16 Clopidogrel Bisulfate [Plavix] 75 mg PO DAILY 10/06/17 Primary Care Physician: Tom Conte MD [Primary Care Provider] - Please follow up with your Primary Care Physician in: 1 week. Please Follow Up With: Juni Conte Disposition: Home Minutes spent on discharge:: 32 Patient Condition:: Stable Medical Necessity - Tobacco Use Smoking Status: Current every day smoker Meaningful Use Info Meaningful Use Diagnoses (Choose all that apply): None applicable Code Visit Inpatient E&M: 17529 Disch Hosp
--- NOTE | 2017-10-09 12:47 | DS.PCM_ITS ---
Discharge Date and Diagnosis Date of Admission: 10/06/17 Date of Discharge: 10/08/17 - Primary Discharge Diagnosis #1 missed hemodialysis, probable early uremia. #2 hyperkalemia. #3 malfunctioning left upper arm AV fistula, status post fistulogram with balloon dilatation of the left subclavian vein stent that was done at [facility] on the day of admission. - Secondary Discharge Diagnosis Chronic Problems Non-compliance with renal dialysis (Chronic) Non compliance with medical treatment (Chronic) Non compliance w medication regimen (Chronic) Renal transplant failure and rejection (Chronic) Renal Txp failure x 2 secondary to non-complaince with treatments and therapies. HTN (hypertension) (Chronic) Anemia due to chronic renal failure treated with erythropoietin, stage 5 ( Chronic) Hyperphosphatemia (Chronic) COPD (chronic obstructive pulmonary disease) (Chronic) AICD (automatic cardioverter/defibrillator) present (Chronic) Systolic CHF, chronic (Chronic) Hospital Course and Treatment Dr. Oro: Nephrology. Operations: None Procedures: Dialysis Summary of Care Provided: Patient seen and examined on the day of discharge and appeared to be stable for discharge home. He denied any significant symptoms. Vital signs are stable. - Physical Exam General: Alert, Oriented x3, Cooperative, No apparent distress. HEENT: Atraumatic, PERRLA, EOMI. Neck: Supple, No JVD, Negative Carotid Bruits, Trachea Midline, Thyroid Normal. Lungs: Clear to auscultation, Normal air movement, No rhonchi, No wheeze, No rales. Cardiovascular: Regular rate, Regular Rhythm, Normal S1, Normal S2, PMI Normal. Abdomen: Bowel Sounds Present, Soft, Non Tender, Non-Distended, No Hepato- splenomegaly. Extremities: No clubbing, No cyanosis, No edema Skin: No rashes, No breakdown Neurological: Neuro grossly intact Vital Signs are stable. Hospital course: The patient is a 42 year old M presented to the emergency room requesting admission for hemodialysis because he missed his hemodialysis after he underwent fistulogram with balloon dilatation of the left subclavian vein stent at [facility] that was done on the day of admission. On admission, his BUN was 40 and his creatinine was 17.5. Patient was anxious upon admission and that could be due to probable early uremia. His potassium was 5.6 upon admission without EKG changes. Nephrology consulted and recommended to continue dialysis through the left upper arm AV fistula. Dialysis performed ?2 during this admission through the left upper arm AV fistula without any problems. His potassium came back to normal after dialysis. Patient's vital signs were stable throughout admission. Patient discharged home in a stable medical condition, discharged on his chronic home medication without any changes , recommended follow-up with his ditch tender in 2 weeks, follow-up with PCP in 1 week and follow-up with his vascular surgeon at [facility] in the near future for repeat evaluation of his left upper arm AV fistula. Discharge Activity: Return to Normal Activity Weight Bearing Status: Full weight bearing Call your doctor if you observe: Fever of 101 or Higher, Shortness of breath, Dizziness, Fainting spells, Chest pain, Increased palpitations (irregular heartbeat), Uncontrolled pain Home Medications: Medications to take at Discharge Carvedilol [Coreg (Beta Gurinder)] 25 mg PO BID 10/31/15 Famotidine [Pepcid] 20 mg PO DAILY PRN PRN 10/31/15 Calcium Acetate 4 tab PO TIDCM #100 capsule 09/03/16 Lisinopril [Zestril] 5 mg PO DAILY #30 tablet 12/03/16 Clopidogrel Bisulfate [Plavix] 75 mg PO DAILY 10/06/17 Primary Care Physician: Tom Conte MD [Primary Care Provider] - Please follow up with your Primary Care Physician in: 1 week. Please Follow Up With: Juni Conte Disposition: Home Minutes spent on discharge:: 32 Patient Condition:: Stable Medical Necessity - Tobacco Use Smoking Status: Current every day smoker Meaningful Use Info Meaningful Use Diagnoses (Choose all that apply): None applicable Code Visit Inpatient E&M: 60092 Disch Hosp
== END 2017-10-08 18:21 | disposition home or self-care (01) ==
LOC: ED 21:45 → MS3 23:05
PROVIDERS: Admitting Provider Family Medicine; Emergency Provider Emergency Medicine; Family Provider Family Medicine; PCP Family Medicine; Visit Provider Hospitalist
DX: E11.22 Type 2 diabetes mellitus with diabetic chronic kidney disease (principal); I13.2 Hypertensive heart and chronic kidney disease with heart failure and with stage 5 chronic kidney disease, or end stage renal disease; N18.6 End stage renal disease; I50.22 Chronic systolic (congestive) heart failure; D63.1 Anemia in chronic kidney disease; Z99.2 Dependence on renal dialysis; Z94.0 Kidney transplant status; Z91.15 Patient's noncompliance with renal dialysis; T86.12 Kidney transplant failure; J44.9 Chronic obstructive pulmonary disease, unspecified; E87.5 Hyperkalemia; Z95.810 Presence of automatic (implantable) cardiac defibrillator; F17.210 Nicotine dependence, cigarettes, uncomplicated
CPT/HCPCS: 36415; 80048; 85025; 90937; 93005; 96372; 96374; 96375; 97802; 99218; 99284; 99406; J0885; A4216; G0257; G0378

== ENCOUNTER 2018-02-05 08:47 | Day surgery (SDC) | payer MEDICARE, SELFPAY ==
[2018-01-30 13:38] LABS: Hemoglobin 11.6 g/dl (13.0-16.5); Mean Corp Hgb Conc 32.2 g/gl (32-36); Mean Corpuscular Hgb 30.1 pg (27.0-32.0); Mean Corpuscular Volume 93.3 fL (80-94); Mean Platelet Vol. 9.7 fl (6.2-12.0); Platelet Count 160 K/mm3 (150-450); RBC Distribution Width CV 13.1 % (11.6-14.6); RBC Distribution Width SD 43.4 fl (35.1-43.9); Red Blood Count 3.86 M/mm3 (4.6-6.2); White Blood Count 7.9 K/mm3 (4.4-11.0)
[2018-01-30 13:42] LABS: Scan Indicated on CBC? Y/N NO
[2018-01-30 14:14] LABS: Anion Gap 8 (5-15); BUN 20 mg/dL (7-18); BUN/Creat Ratio 1.9 RATIO (10-20); Chloride 95 mmol/L (98-107); EST Glomerular Filtration Rate 6 mL/min (>60); Est Glom Filt Rate - Afr Amer 7 mL/min (>60); Glucose 96 mg/dL (74-106); Potassium 4.1 mmol/L (3.5-5.1); Sodium Level 136 mmol/L (136-145)
[2018-02-05] VITALS (10 sets, daily range): BP systolic 98–132; BP diastolic 34–59; PULSE 59–82; RESP 16–18; TEMP 36.2–36.9; O2SAT 97–100; BMI 22.6
--- NOTE | 2018-02-05 11:11 | DCINST_ITS ---
Discharge Diet: Renal Diet Discharge Activity: May Not Drive - for 2-3 days or while taking narcotic pain medications., May Not Shower, May Take a Tub Bath - in 5 days. Lifting Restrictions: 5 pounds Keep extremity elevated above heart level: - - Keep arm elevated above the heart level for 3 days. Additional Activity Instructions:: Exercise hand vigorously with a stress ball. Call your doctor if your incision/area has: Continuous Slow Oozing, Sudden Increased Bleeding - apply pressure and call your doctor., Increased Pain/ Swelling, Increased Redness, Foul Smelling Discharge Call your doctor if you observe: Fever of 101 or Higher Suture Line Care: Avoid Pulling/Pushing, Avoid Pinching/Bending Cleanse incision/area with: Keep Dressing Clean & Dry Additional Dressing/Incision Instructions:: Please elevate your right arm for comfort. If possible please leave the Rogers wrap in place for 3-4 days. Try to strictly elevate your right upper extremity to limit swelling and pain. After 3 -4 days she may remove the Rogers wrap and the cough dressing. Leave the Steri- Strips in place. Keep the incision clean and dry place Allergies/Adverse Reactions: Allergies Iodinated Contrast- Oral and IV Dye [CONTRASTS] Allergy (Verified 01/29/18 08:17 ) Fever and skin rash Penicillins Allergy (Verified 01/29/18 08:17) Anaphylaxis cyclobenzaprine [From Flexeril] Adverse Reaction (Verified 01/29/18 08:17) dizzy, faints hydralazine Adverse Reaction (Verified 01/29/18 08:17) Low blood pressure tramadol [From Ultram] Adverse Reaction (Verified 01/29/18 08:17) Rash Medications to take at Discharge Carvedilol [Coreg (Beta Gurinder)] 25 mg PO BID 10/31/15 Calcium Acetate 4 tab PO TIDCM #100 cap 09/03/16 Oxycodone HCl/Acetaminophen [Percocet 5/325] 1 tab PO Q6H PRN PRN 2 Days #6 tab 02/05/18 The following prescriptions were given: Oxycodone HCl/Acetaminophen [Percocet 5/325] 1 tab PO Q6H PRN PRN 2 Days #6 tab PRN Reason: Pain Primary Care Physician: Tom Conte MD [Primary Care Provider] - Test Results: Test results from this visit will be discussed in further detail at your follow- up appointment, if applicable. Please Follow Up With: Kadeem Ventura MD - [phone] When: Call to make an appointment for suture removal and follow up in 1 week.
[2018-02-05] MEDS: Bupivacaine 0.5% PF 10 ML VIAL (11:23)
[2018-02-05] MEDS: Heparin Injection (Vial) 5,000 UNIT/ML VIAL 5000 UNIT (13:00)
--- NOTE | 2018-02-05 14:02 | OP.PCM_ITS ---
Problem List (1) ESRD (end stage renal disease) on dialysis Status: Acute Report of Operation Date of Procedure: 02/05/18 Pre-Operative Diagnosis: Stage V renal failure. Thrombosed left upper extremity fistula. Need for arteriovenous hemodialysis access Post-Operative Diagnosis: Same Surgery/Procedure Performed:: Transposition right extremity basilic vein to brachial artery arteriovenous fistula creation Description of Surgical Findings:: Timeout informed consent was obtained. 42-year-old gent was taken out from placement table underwent monitored anesthesia care local anesthetic. Clindamycin 900 mg given intravenously preoperatively. The right upper extremity was sterilely prepped and draped. 20 cc of 1% lidocaine mixed 50-50 with 0.5% Marcaine and 21 cc of 0.5% lidocaine was used as local anesthetic the basilic vein appear to extend past the antecubital crease onto the proximal forearm. Local was instilled. A stepwise incision was made in the right proximal forearm and upper inner arm. Tedious sharp and blunt dissection was used to dissect free the basilic vein. Side branches were secured with 3-0 Vicryl ligatures and hemoclips were indicated that dissection was performed all the way up to the axilla. I then had a quite a reasonable length of vein. I then measured the length of vein and at the antecubital area did a sharp blunt dissection to identify the brachial artery vessel loop was placed. A tunneler was used to connect between the brachial artery site and the upper arm site and a generous curve as there was extra vein available. Having then tunneled the vein patient then received 8000 units of heparin. Peripheral vascular clamps are placed on the brachial artery 11 blade was used to make a arteriotomy which was extended with Christian scissors. A end-to-side anastomosis of the basilic vein to brachial artery was created with a running 7-0 Prolene. Repair suture of 7-0 Prolene was additionally utilized to obtain complete hemostasis. Solid anastomosis was felt to be intact. Good flow was noted. There was a pulse thrill and bruit. The right hand was then inspected. Appear to be pink and slightly diminished capillary refill. Doppler signals demonstrated at least biphasic flow at the radial artery and monophasic flow of the ulnar artery. The wounds were now closed with deep layer of multiple interrupted 3-0 Vicryl sutures. The skin edges are approximated running septic or 4-0 Monocryl. Steri -Strips Telfa soft roll Rogers wrap applied. Sponge and instrument and needle counts were reported the surgeon be correct. Specimens none. Drains none. Blood loss 150 cc. Kadeem Ventura M.D., F.A.C.S. Type of Anesthesia:: Local MAC Anesthesiologist: Houston Rehman
== END 2018-02-05 17:01 | disposition home or self-care (01) ==
LOC: SDC 08:48 → AC 08:48
PROVIDERS: Family Provider Family Medicine; PCP Family Medicine; Visit Provider Surgery
PROC: (CPT 36825; principal; 2018-02-05 10:45)
DX: T82.868A Thrombosis due to vascular prosthetic devices, implants and grafts, initial encounter (principal); I13.2 Hypertensive heart and chronic kidney disease with heart failure and with stage 5 chronic kidney disease, or end stage renal disease; N18.6 End stage renal disease; I50.22 Chronic systolic (congestive) heart failure; D63.1 Anemia in chronic kidney disease; T86.12 Kidney transplant failure; F17.200 Nicotine dependence, unspecified, uncomplicated; I27.20 Pulmonary hypertension, unspecified; Z99.2 Dependence on renal dialysis; Z91.15 Patient's noncompliance with renal dialysis; Z95.810 Presence of automatic (implantable) cardiac defibrillator; Z79.899 Other long term (current) drug therapy
CPT/HCPCS: 36825; 36415; 80048; 85027

== ENCOUNTER → 2020-11-02 13:39 | Outpatient (CLI) | payer MEDICARE, MEDICAID, SELFPAY ==
[2020-10-20 13:23] VITALS: BMI 23.8
--- NOTE | 2020-11-02 13:43 | ECHOD_ITS ---
Reason For Study: MURMUR Procedure This was a 2D Doppler, Color Flow transthoracic echocardiogram. Exam performed in department. Left Ventricle Normal LV size. Left ventricular systolic function is lower limits of normal. The estimated ejection fraction is 50 %. Stage 2 diastolic dysfunction. No regional wall motion abnormalities noted. Right Ventricle Normal RV size. ICD or pacer leads identified within the right ventricle. Normal systolic function. Atria The left atrium is moderately enlarged. Normal right atrium. Mitral Valve There is mild mitral annular calcification. Mild (1+) eccentric mitral valve insufficiency. Tricuspid Valve Normal tricuspid valve. Mild tricuspid valve insufficiency. Pulmonary artery systolic pressure is 32 mmHg. Aortic Valve Trisinus/trileaflet aortic valve. Great Vessels Normal aortic root. The pulmonary artery is normal size. Normal inferior vena cava. Pericardium/Pleural No pericardial effusion. Medication DO NOT USE DEFINITY D/T RENAL FAILURE!!. MMode/2D Measurements & Calculations LVIDd: 5.0 cm IVSd: 1.1 cm Ao root diam: 4.0 cm LVIDs: 3.5 cm LVPWd: 1.2 cm RVDd: 3.7 cm FS: 30.9 % LAV(MOD-bp): 77.5 ml LA A4 area: 26.6 cm2 LA dimension(2D): 3.7 cm LAV(MOD-bp) Indexed: 40.1 ml/m2 LAV(MOD-sp2): 63.3 ml LAV(MOD-sp4): 95.6 ml RA A4 area: 19.0 cm2 Time Measurements MV dec time: 0.22 sec Doppler Measurements & Calculations MV E max kasi: 119.3 cm/sec Lat Peak E' Kasi: 11.6 cm/sec Med Peak E' Kasi: 5.9 cm/sec MV A max kasi: 97.5 cm/sec E/E' lat: 10.3 E/E' med: 20.1 MV E/A: 1.2 Ao V2 max: 242.5 cm/sec LV V1 max: 118.7 cm/sec PA V2 max: 131.8 cm/sec Ao max P.5 mmHg LV V1 max P.6 mmHg Ao V2 mean: 167.4 cm/sec LV V1 mean P.9 mmHg Ao mean P.5 mmHg LV V1 mean: 80.2 cm/sec Ao V2 VTI: 49.1 cm LV V1 VTI: 26.4 cm TR max kasi: 262.7 cm/sec TR max P.6 mmHg ECHO/Echo Complete Interpretation Summary Normal LV size. Left ventricular systolic function is lower limits of normal. The estimated ejection fraction is 50 %. Stage 2 diastolic dysfunction. Compared to previous study, the left ventricular systolic function has improved .. Ordering Physician: Joan Joe/Pablo Rogers Referring Physician: EDUARDO BENTON Performed By: Zuleyma Chamberlain, TREY, RVT
== END ==
PROVIDERS: PCP Family Medicine; Referring Provider Physician Assistant Medical; Visit Provider Physician Assistant Medical
DX: I50.22 Chronic systolic (congestive) heart failure (principal); R01.1 Cardiac murmur, unspecified
CPT/HCPCS: 93306

== ENCOUNTER → 2021-02-15 12:42 | Outpatient (CLI) | payer MEDICARE, MEDICAID, SELFPAY ==
[2021-02-15 13:36] LABS: Absolute Lymphocyte Count 0.86 X10^3/uL (0.83-4.51); Absolute Neutrophil Count 4.5 X10^3/uL (2.0-7.7); Basophil# 0.04 X10^3/uL; Basophil% 0.6 % (0-1); Eosinophil# 0.17 X10^3/uL; Eosinophils% 2.7 % (0-5); Hematocrit 28.8 % (40-54); Lymphocyte # 0.86 X10^3/ul (0.83-4.51); Lymphocyte % 13.7 % (19-41); Mean Corp Hgb Conc 31.3 g/dL (32-36); Mean Corpuscular Hgb 28.3 pg (27.0-32.0); Mean Corpuscular Volume 90.6 fL (80-94); Mean Platelet Vol. 8.6 fl (6.2-12.0); Monocyte% 11.2 % (0-10); NRBC Flagged by Analyzer 0 % (0-5); Neutrophil # 4.47 X10^3/uL (2.7-7.7); Neutrophil % 71.3 % (47-70); Platelet Count 220 K/mm3 (150-450); RBC Distribution Width CV 17.2 % (11.6-14.6); RBC Distribution Width SD 56.1 fl (35.1-43.9); Red Blood Count 3.18 M/mm3 (4.6-6.2); White Blood Count 6.3 K/mm3 (4.4-11.0)
[2021-02-15 14:03] LABS: Anion Gap 9 (5-15); BUN 52 mg/dL (7-18); BUN/Creat Ratio 3.5 RATIO (10-20); Calcium,Total 7.6 mg/dL (8.5-10.1); Chloride 100 mmol/L (98-107); EST Glomerular Filtration Rate 4 mL/min (>60); Est Glom Filt Rate - Afr Amer 5 mL/min (>60); Glucose 89 mg/dL (74-106); Potassium 3.2 mmol/L (3.5-5.1); Sodium Level 138 mmol/L (136-145); Uric Acid 5.4 mg/dL (3.5-7.2)
== END ==
PROVIDERS: PCP Family Medicine; Referring Provider Physician Assistant; Visit Provider Physician Assistant
DX: M79.671 Pain in right foot (principal)
CPT/HCPCS: 36415; 80048; 84550; 85025

== ENCOUNTER 2021-03-27 17:17 | Emergency (ER) | payer MEDICARE, MEDICAID, SELFPAY ==
[2021-03-27 17:19] VITALS: BP 159/92; PULSE 84; RESP 16; TEMP 36.4; O2SAT 99; BMI 23.7
--- NOTE | 2021-03-27 17:35 | RAD_ITS ---
STUDY: X-RAY - RIGHT FOOT CLINICAL: Male, 45 years old. Right lower leg swelling since this weekend. TECHNIQUE: 3 view(s) of the foot. COMPARISON: None. FINDINGS: Normal talus, calcaneus, and tarsal bones. Normal visualized subtalar, talonavicular, calcaneocuboid, tarsal and tarsometatarsal articulations. Normal metatarsi. Atherosclerotic calcifications are present. There is degenerative arthrosis of the metatarsophalangeal joint of the hallux . Normal tibial and fibular sesamoid bones. Normal interphalangeal joint of the great toe. Normal phalanges of the great toe. Normal second through fifth metatarsophalangeal joints. Normal interphalangeal joints and phalanges of the lesser toes. The soft tissue structures are unremarkable. There is no demonstrated fracture. RAD/Foot min 3 Views IMPRESSION: No significant process Electronically Signed: Jose Pardo MD at 19:01 EDT , Service support ,
--- NOTE | 2021-03-27 17:36 | EDS_ITS ---
HPI History of Present Illness Chief Complaint: Edema Detail of Chief Complaint: Pain and swelling to right foot and ankle that he said for about 3 or 4 day Informant: patient Narrative Narrative: Patient presents to the emergency department pain and swelling his right foot and ankle that he said for 3 or 4 days. Patient states that he was in urgent care and referred to the emergency department. Patient denies any trauma. Patient states that typically when he wakes up in the morning the swelling is down but throughout the day gets worse. Patient was told that he should have an ultrasound to rule out a blood clot in his leg. He denies recent travel or surgery. He is never had a blood clot. Patient is on peritoneal dialysis currently and has history of hypertension. Patient has history of pacer and defibrillator. [facility] Medical History (Updated 03/27/21 @ 20:[address] Sina Senior, ) Anemia due to chronic renal failure treated with erythropoietin, stage 5 Anxiety and depression Chronic systolic (congestive) heart failure COPD (chronic obstructive pulmonary disease) ESRD (end stage renal disease) on dialysis Essential hypertension GERD (gastroesophageal reflux disease) Hyperkalemia Hyperphosphatemia Non compliance w medication regimen Non compliance with medical treatment Non-compliance with renal dialysis Non-ischemic cardiomyopathy Problem with dialysis access Renal transplant failure and rejection Systolic murmur Home Medications carvedilol 25 mg PO BID 10/31/15 [History Last Taken 10/01/16] acetaminophen 325 mg tablet 650 mg PO Q4H PRN tab 07/07/19 [History Last Taken Unknown] albuterol sulfate 90 mcg/actuation aerosol inhaler 2 puff INHALATION Q6H PRN 07/07/19 [History Last Taken Unknown] amlodipine 10 mg tablet 10 mg PO DAILY 07/07/19 [History Last Taken Unknown] calcium acetate(phosphat bind) 667 mg capsule 2,668 mg PO TIDCM cap 07/07/19 [History Last Taken Unknown] diphenhydramine HCl 50 mg capsule 50 mg PO .COMPLEX #1 cap 07/07/19 [Rx Last Taken Unknown] prednisone 50 mg tablet 50 mg PO .COMPLEX #3 tab 07/07/19 [Rx Last Taken Unknown] Allergy/AdvReac Type Severity Reaction Status Date / Time nifedipine [From Procardia] Allergy Severe Swelling Verified 03/27/21 17:21 Iodinated Contrast Media Allergy Fever and Verified 10/05/21 17:21 [CONTRASTS] skin rash Penicillins Allergy Anaphylaxis Verified 03/27/21 17:21 cyclobenzaprine AdvReac dizzy, Verified 03/27/21 17:21 [From Flexeril] faints hydralazine AdvReac Low blood Verified 03/27/21 17:21 pressure tramadol [From Ultram] AdvReac Rash Verified 03/27/21 17:21 Family History Father Diabetes Heart disease Hypertension Presence of implantable cardioverter-defibrillator (ICD) Brother Heart disease Hypertension Diabetes Presence of implantable cardioverter-defibrillator (ICD) LVAD (left ventricular assist device) present Surgical History History of implantable cardiac defibrillator (ICD) (02/03/15) Hx of cholecystectomy Hx of kidney transplant Hx of partial thyroidectomy (12/07/99) Presence of surgically created primary arteriovenous shunt for hemodialysis Social History (Updated 07/13/19 @ 14:[address] Taras Renee MD) Smoking Status: Current every day smoker tobacco type: cigarettes second hand exposure: Yes quit status: considering quitting alcohol intake: current alcohol intake frequency: holidays/special occasions only substance use type: does not use caffeine: Yes Type: carbonated beverages Number of servings: 3 what type of physical activity do you participate in: walking frequency: daily seatbelt use: always ROS ROS ED Constitutional Constitutional ED: Reports systems reviewed and no addt'l complaints, except as documented; Denies body ache(s), change in weight or chills Eyes Eyes: Denies acute decrease in peripheral vision, change in vision, double vision or loss of vision ENT ENT ED: Reports none; Denies ear pain, lip swelling, loss taste/smell, neck pain, otalgia or sore throat Cardiovascular Cardiovascular: Reports none; Denies abdominal pain, chest pain with activity, leg edema, lightheadedness, palpitations, rapid heart rate or syncope Respiratory/Chest Respiratory/Chest: Reports none; Denies change in mental status, dry cough, dyspnea, hemoptysis, shortness of breath at rest or shortness of breath with exertion Gastrointestinal Gastrointestinal: Reports none; Denies abdominal pain, change in stool character, diarrhea, hematemesis, hematochezia, melena, rectal bleeding or vomiting Genitourinary Genitourinary ED: Reports none; Denies abdominal discomfort, anuria, dysuria, genital pain or polyuria Musculoskeletal Musculoskeletal: Reports none and other Details: Pain right foot and swelling right foot and ankle ; Denies arthralgias, back pain, difficulty walking, extremity pain, muscle weakness or myalgias Integumentary Reports none; Denies abscess or rash Neurologic Neurologic: Reports none; Denies abnormal gait, confusion, focal weakness, frequent falls, headache(s), loss of vision, numbness, paresthesias, radicular pain, vertigo or weakness Psychiatric Psychiatric: Reports systems reviewed and no addt'l complaints, except as documented and none; Denies behavioral changes, confusion, difficulty concentrating, hallucinations, suicidal ideation, tactile hallucinations or visual hallucinations Endocrine Endocrinology: Denies none, cold intolerance, excessive sweating, fatigue or heat intolerance Hematologic/Lymphatic Hematologic/Lymphatic: Reports none; Denies anemia, easy bleeding or easy bruisi ng Allergic/Immunologic Allergic/Immunologic ED: Denies as per HPI, none, lip swelling, mouth swelling, throat swelling, tongue swelling or hives EXAM Physical Exam Const Vital Signs: 03/27/21 17:19 Temperature 97.6 F L Temperature Source Temporal Pulse Rate 84 Respiratory Rate 16 Blood Pressure 159/92 H Blood Pressure Mean 114 Pulse Ox 99 Oxygen Delivery Method Room Air Positive well nourished and well developed General Appearance ED: well developed and NAD HEENT Reports TM's clear and moist mucous membranes normocephalic and atraumatic; Negative for trauma or tenderness Tympanic Membrane ED: Yes TM's clear Eyes PERRL and EOMs intact bilaterally General Eye ED: Negative for pale conjunctiva or scleral icterus Neck no lymphadenopathy, supple and no JVD General: Negative for tenderness Chest Wall inspection of chest normal and palpation of chest normal Chest: Negative for tenderness Resp normal respiratory effort and clear to auscultation bilaterally Effort and Inspection: Negative for respiratory distress or pain with movement Auscultation: Negative for rhonchi, wheezes or diminished lung sounds Cardio regular rate, regular rhythm, S1 normal heart sound, S2 normal heart sound and no murmurs Peripheral Pulses: pulses 2+ throughout GI normal to inspection, nondistended, normoactive bowel sounds, soft to palpation, non-tender, non-distended and no masses Back/Spine no CVA tenderness and no thoracic nor lumbar tenderness Extremity Extremity Narrative: Evaluation of the right lower extremity reveals diffuse swelling about the ankle and right foot. Patient has tenderness over the base of the fifth metatarsal. There is no ecchymosis or bruising. Neurovascularly intact. Patient has normal dorsal pedal and posterior tibial pulses. No evidence of cellulitis and no evidence of open skin noted. General Extremety ED: Negative for edema General Extremity: Negative for edema Neuro oriented x3, CN's II-XII intact bilaterally, no sensory deficits noted and gait normal Sensorium / Orientation: awake, alert, oriented to person, oriented to place and oriented to time Motor Exam: strength 5/5 throughout and strength abnormal Psych mental status grossly normal Skin no rashes or lesions noted and no wounds MDM MDM MDM Narrative Medical decision making narrative: Patient had a negative venous Doppler of the right lower extremity and x-rays were unremarkable. At this point based on his description that the swelling usually resolves by morning when he wakes up and gets worse throughout the day suspect possibly venous insufficiency. Patient advised on compression stockings and follow-up with his primary care physician within next 5 to 7 days. Radiography Diagnostic Testing: Radiology Impression Foot X-Ray 03/27/21 17:35 IMPRESSION: No significant process Electronically Signed: Jose Pardo MD at 19:01 EDT , Service support , Venous Duplex 03/27/21 18:20 IMPRESSION: 1. Normal venous Doppler ultrasound of the right lower extremity. 2. Mild subcutaneous edema in the right calf Electronically Signed: Jose Pardo MD at 19:22 EDT , Service support , Three-view x-rays of the right foot obtained interpreted by myself as no acute fractures. Radiology was in agreement. Discharge Plan Triage Chief Complaint: Edema ED Provider: Sina Senior Dx/Rx/DC Orders Clinical Impression: Leg edema Instructions: ED Peripheral Edema, Unilateral Prescriptions: No Action albuterol sulfate 90 mcg/actuation HFA aerosol inhaler 2 puff INHALATION Q6H PRNRF: 0 amlodipine 10 mg tablet 10 mg PO DAILY RF: 0 acetaminophen 325 mg tablet 650 mg PO Q4H PRNRF: 0 calcium acetate(phosphat bind) 667 mg capsule 2,668 mg PO TIDCM RF: 0 carvedilol 25 MG tablet 25 mg PO BID RF: 0 prednisone 50 mg tablet 50 mg tablet 50 mg PO .COMPLEX Qty: 3 RF: 0 diphenhydramine HCl 50 mg capsule 50 mg PO .COMPLEX Qty: 1 RF: 0 Primary Care Provider: Tom Conte Referrals: Tom Conte MD [Primary Care Provider] - 5-7 Days Disposition Disposition: Home, Self Care
--- NOTE | 2021-03-27 17:41 | ED.RN ---
RLE edema, nonpitting since Friday. Painful to ambulate. Alert and oriented x4.
--- NOTE | 2021-03-27 18:20 | US_ITS ---
STUDY: VENOUS DOPPLER ULTRASOUND - RIGHT LOWER EXTREMITY REASON FOR EXAM: Male, 45 years old. RT FOOT PAIN WITH CALF SWELLING - SUBSIDES WHEN LEG IS ELEVATED TECHNIQUE: Ultrasound evaluation of the deep vein system to include osman-scale imaging and compression was performed. Osman-scale imaging and Doppler sonographic evaluation, including duplex spectral analysis and qualitative color flow sonography, was performed. COMPARISON: None. FINDINGS: Common Femoral Vein: Normal compression, spontaneity and augmentation. Normal color Doppler. Common Femoral Vein/Greater Saphenous Junction: Normal compression, spontaneity and augmentation. Normal color Doppler. Deep Femoral Vein: Normal compression, spontaneity and augmentation. Normal color Doppler. Femoral Proximal: Normal compression, spontaneity and augmentation. Normal color Doppler. Femoral Middle: Normal compression, spontaneity and augmentation. Normal color Doppler. Femoral Distal: Normal compression, spontaneity and augmentation. Normal color Doppler. Popliteal Vein: Normal compression, spontaneity and augmentation. Normal color Doppler. Posterior Tibial Vein: Normal compression, spontaneity and augmentation. Normal color Doppler. Peroneal Vein: Normal compression, spontaneity and augmentation. Normal color Doppler. Mild subcutaneous edema is seen in the right calf. The left common femoral vein was evaluated and is normal. US/Venous Duplex Imag/Limited/Uni IMPRESSION: 1. Normal venous Doppler ultrasound of the right lower extremity. 2. Mild subcutaneous edema in the right calf Electronically Signed: Jose Pardo MD at 19:22 EDT , Service support ,
[2021-03-27 20:36] VITALS: RESP 18; O2SAT 99
== END 2021-03-27 20:37 | disposition home or self-care (01) ==
PROVIDERS: Emergency Provider Emergency Medicine; PCP Family Medicine
DX: M79.89 Other specified soft tissue disorders (principal); F17.210 Nicotine dependence, cigarettes, uncomplicated; Z99.2 Dependence on renal dialysis
CPT/HCPCS: 73630; 93971; 99283

== ENCOUNTER → 2021-11-01 | Outpatient (CLI) | payer MEDICARE, MEDICAID, SELFPAY ==
--- NOTE | 2021-11-01 07:13 | ECHOD_ITS ---
Reason For Study: CHEST PAIN Procedure This was a 2D Doppler, Color Flow transthoracic echocardiogram. Exam performed in department. Left Ventricle Normal LV size. Mild concentric left ventricular hypertrophy. The estimated ejection fraction is 40 %. There is mild to moderate global hypokinesis of the left ventricle. Right Ventricle Normal RV size. ICD or pacer leads identified within the right ventricle. Normal systolic function. Atria Normal left atrium. Normal right atrium. ICD or pacer leads identified within the right atrium. Mitral Valve Normal mitral valve. Mild (1+) eccentric mitral valve insufficiency. Tricuspid Valve Normal tricuspid valve. Aortic Valve Normal aortic valve. Trisinus/trileaflet aortic valve. Peak aortic valve gradient 22 mmHg. Mean aortic valve gradient 14 mmHg. Pulmonic Valve Normal pulmonic valve. Great Vessels Normal aortic root. The pulmonary artery is normal size. Normal inferior vena cava. Pericardium/Pleural Small pericardial effusion. MMode/2D Measurements & Calculations LVIDd: 5.9 cm IVSd: 1.3 cm LVOT diam: 2.0 cm LVIDs: 4.6 cm LVPWd: 1.3 cm LVOT area: 3.0 cm2 RVDd: 3.1 cm FS: 21.4 % Ao root diam: 3.0 cm LAV(MOD-bp): 45.3 ml LVAd ap4: 55.4 cm2 LAV(MOD-bp) Indexed: 23.7 ml/m2 LVLd ap4: 10.0 cm LAV(MOD-sp2): 45.0 ml EDV(MOD-sp4): 249.6 ml LAV(MOD-sp4): 45.5 ml EDV(sp4-el): 261.3 ml LVAs ap4: 39.3 cm2 LVLs ap4: 8.4 cm ESV(MOD-sp4): 150.8 ml ESV(sp4-el): 156.6 ml EF(MOD-sp4): 39.6 % EF(sp4-el): 40.1 % SV(MOD-sp4): 98.8 ml SV(sp4-el): 104.6 ml LA A4 area: 17.8 cm2 LA dimension(2D): 3.5 cm RA A4 area: 16.2 cm2 Time Measurements MV dec time: 0.28 sec Doppler Measurements & Calculations MV E max kasi: 92.3 cm/sec Lat Peak E' Kasi: 9.4 cm/sec Med Peak E' Kasi: 6.3 cm/sec MV A max kasi: 84.4 cm/sec E/E' lat: 9.8 E/E' med: 14.7 MV E/A: 1.1 Ao V2 max: 238.7 cm/sec LV V1 max: 136.8 cm/sec SV(LVOT): 85.5 ml Ao max P.8 mmHg LV V1 max P.5 mmHg Ao V2 mean: 180.1 cm/sec LV V1 mean P.9 mmHg Ao mean P.3 mmHg LV V1 mean: 90.8 cm/sec Ao V2 VTI: 50.1 cm LV V1 VTI: 28.3 cm YARI(I,D): 1.7 cm2 YARI(V,D): 1.7 cm2 PA V2 max: 127.8 cm/sec ECHO/Echo Complete Interpretation Summary Normal LV size. Mild concentric left ventricular hypertrophy. The estimated ejection fraction is 40 %. There is mild to moderate global hypokinesis of the left ventricle. Small pericardial effusion. Ordering Physician: Joan Joe/Pablo Rogers Referring Physician: EDUARDO BENTON Performed By: Diya Ware RDCS
--- NOTE | 2021-11-01 11:53 | STRESSREP ---
Stress Test Report Pharmacal myocardial perfusion stress test. 46-year-old man with a history of chest pain. Stress protocol: Resting KG demonstrates normal sinus rhythm with rate of 63 bpm premature ventricular complexes are noted. Nonspecific ST changes noted. 0.4 mg of regadenoson was infused per usual protocol followed by rapid intravenous saline flush injection continuous EKG monitoring was performed. The maximum heart rate was 78 bpm which was 45% of max impacted heart rate the maximum workload was 1 metabolic equivalent. At rest and during infusion there were nonspecific ST changes noted with did not meet the criteria for ischemia. No clinical angina was noted. The maximum blood pressure was 146/78 mmHg. Myocardial perfusion protocol. 11.1 mCi of technetium 99m sestamibi was injected at rest. 0.4 mg of regadenoson was infused per usual protocol. At peak infusion 33.9 mCi of technetium 99m sestamibi was injected stress images were obtained stress and rest images were reconstructed and compared in the short axis vertical long and horizontal long axis. Gated images were also obtained. Perfusion SPECT analysis: Review of the stress images demonstrate normal uptake of tracer noted in all areas of the myocardium. The resting images similarly demonstrate normal uptake of tracer noted in all areas of the myocardium. No areas of reversibility are noted to suggest ischemia and no previous infarct is noted. Gated SPECT analysis: The gated ejection fraction is estimated to be 40%. Conclusion: Normal pharmacologic myocardial perfusion stress test. Cardiomyopathy present.
== END | disposition home or self-care (01) ==
LOC: CVS 07:13
PROVIDERS: PCP Family Medicine; Referring Provider Physician Assistant Medical; Visit Provider Physician Assistant Medical
DX: R07.9 Chest pain, unspecified (principal); I42.8 Other cardiomyopathies
CPT/HCPCS: 78452; 93017; 93306; A9500; A4216; J2785

== ENCOUNTER 2022-02-04 05:17 | Observation (INO) | payer MEDICARE, MEDICAID, SELFPAY ==
[2022-02-04] VITALS (13 sets, daily range): BP systolic 157–216; BP diastolic 89–133; PULSE 69–86; RESP 16–20; TEMP 36–36.8; O2SAT 96–100; BMI 23.1
--- NOTE | 2022-02-04 05:39 | PCM.HP.STD ---
HPI - General General Date of Admission: 02/04/22 Date of Service: 02/04/22 Chief Complaint: Shortness of breath started about 8 PM on 02/01/2022. Right moderate pleural effusion as per chest x-ray, ER physician RAFA Posadas JOSE ELIAS DODSON, is a 46 M with multiple comorbidities including chronic HFrEF, nonischemic cardiomyopathy status post AICD, ESRD on hemodialysis is directly admitted in PCU from [place] ED for evaluation of shortness of breath. Patient started having shortness of breath on 02/01 evening, Friday which gradually progressed to the extent that he is not able to breathe and went to [place] ED. He also feels congested on the right lung. Patient denies any chest pain or pressure but feels he cannot breathe from right lung. No fever chills, no sinus congestion, sore throat. Patient does not make urine as he is on dialysis. In [place] ED, vitals temperature 97.1 ?F, pulse 95/min, BP 200/112, pulse ox 93% on room air. When patient came to PCU his blood pressure is too high systolic in the 220s. Antihypertensive medications were started. Patient denies symptoms of dizziness near syncope. Lab work from [facility] ED reviewed. K5.1, bicarb 26, BUN/creatinine 76/14.7. CBC H&H 9.8/29.8. NT proBNP more than 35,000 WBC and platelet count normal. EKG normal sinus rhythm 93 bpm, LVH, nonspecific ST-T abnormality QTC 390 ms. High-sensitivity troponin 72. Chest x-ray report available, reported moderate right pleural effusion with associated compressive atelectasis of right lower lobe. Trace left pleural effusion with minimal atelectasis. Chest wall edema. Mild cardiomegaly. Patient came with CD but still not uploaded to view the image. [facility] Medical History Anemia due to chronic renal failure treated with erythropoietin, stage 5 Anxiety and depression Chronic systolic (congestive) heart failure COPD (chronic obstructive pulmonary disease) ESRD (end stage renal disease) on dialysis Essential hypertension GERD (gastroesophageal reflux disease) Hyperkalemia Hyperphosphatemia Non compliance w medication regimen Non compliance with medical treatment Non-compliance with renal dialysis Non-ischemic cardiomyopathy Problem with dialysis access Renal transplant failure and rejection Systolic murmur Home Medications carvedilol 25 mg tablet 25 mg PO BID blood pressure 10/31/15 [History Last Taken 10/01/16] acetaminophen 325 mg tablet 650 mg PO Q4H PRN Pain 07/07/19 [History Last Taken Unknown] amlodipine 10 mg tablet 10 mg PO DAILY 07/07/19 [History Last Taken Unknown] calcium acetate(phosphat bind) 667 mg capsule 2,668 mg PO TIDCM phosphate binder 07/07/19 [History Last Taken Unknown] hydralazine 50 mg tablet 50 mg PO TID 08/21/21 [History Last Taken Unknown] lisinopril 5 mg tablet 5 mg PO DAILY 08/21/21 [History Last Taken Unknown] nifedipine 30 mg tablet,extended release 30 mg PO DAILY 08/21/21 [History Last Taken Unknown] sevelamer carbonate 800 mg tablet 800 mg PO TID 08/21/21 [History Last Taken Unknown] Allergy/AdvReac Type Severity Reaction Status Date / Time nifedipine [From Procardia] Allergy Severe Swelling Verified 11/27/21 10:36 Iodinated Contrast Media Allergy Fever and Verified 11/27/21 10:36 [CONTRASTS] skin rash Penicillins Allergy Anaphylaxis Verified 11/27/21 10:36 cyclobenzaprine AdvReac dizzy, Verified 11/27/21 10:36 [From Flexeril] faints hydralazine AdvReac Low blood Verified 11/27/21 10:36 pressure tramadol [From Ultram] AdvReac Rash Verified 11/27/21 10:36 Family History Father Diabetes Heart disease Hypertension Presence of implantable cardioverter-defibrillator (ICD) Brother Heart disease Hypertension Diabetes Presence of implantable cardioverter-defibrillator (ICD) LVAD (left ventricular assist device) present Surgical History History of implantable cardiac defibrillator (ICD) (02/03/15) Hx of cholecystectomy Hx of kidney transplant Hx of partial thyroidectomy (12/07/99) Presence of surgically created primary arteriovenous shunt for hemodialysis Social History Smoking Status: Current every day smoker tobacco type: cigarettes second hand exposure: Yes quit status: considering quitting alcohol intake: current alcohol intake frequency: holidays/special occasions only substance use type: does not use caffeine: Yes Type: carbonated beverages Number of servings: 3 what type of physical activity do you participate in: walking frequency: daily seatbelt use: always ROS ROS Narrative Constitutional: Reports fatigue and weakness. No fever HEENT: Reports systems reviewed and no addt'l complaints, except as documented Respiratory/Chest: Shortness of breath, dyspnea at rest. Denies chest pain or pressure but mainly right chest congestion. Gastrointestinal: Denies coffee ground emesis, hematemesis or vomiting Genitourinary: Patient does not make urine. Musculoskeletal: Mild knee joint pain and limited range of motion Neurologic: Denies seizure-like activity skin: No ulcer. No rash Endocrinology: Reports systems reviewed and no addt'l complaints, except as documented Hematologic/Lymphatic: Reports systems reviewed and no addt'l complaints, except as documented Rest 14 ROS are negative except as mentioned in HPI Vital Signs Vital Signs Vital Signs: 02/04/22 05:32 02/04/22 05:28 Pulse Rate 85 Respiratory Effort Normal Respiratory Depth Normal Respiratory Pattern Normal Oxygen Delivery Method Nasal Cannula Oxygen Flow Rate (L/min) 3 Weight Weight: 165 lb 9.074 oz Body Mass Index (BMI) 23.1 Physical Exam Narrative General: Alert, Oriented x3, Cooperative HEENT: Atraumatic, PERRLA, EOMI, Normocephalic Oral: Oral mucosa dry. No Gingival or Mucosal Lesions/ Ulcerations Neck: Supple, No JVD, Negative Carotid Bruits Lungs: Air entry diminished/absent in right lung below fifth ICS posteriorly. Stony dullness present. Left lung clear. Cardiovascular: Regular rate, Regular Rhythm, Normal S1, Normal S2, No murmurs. Left subclavicular AICD Abdomen: Bowel Sounds Present, Soft, Non Tender, Non-Distended : On hemodialysis. Right arm dialysis access AV fistula Extremities: Bilateral leg 2+ pitting symmetrical edema, Capillary Refill Less than 3 Seconds Skin: No rashes, No breakdown Musculoskeletal: No Tenderness to Palpation of Joints or Extremities. ROM intact Neurological: Cranial nerves II-XII grossly intact, DTR 2+/4 and Symmetrical Psych/Mental Status: In mild distress due to shortness of breath Results Lab / Micro Data Result Diagrams: 02/04/22 05:44 Assessment & Plan Assessment/Plan (1) Acute dyspnea: (2) Pleural effusion, right: PLAN: Plan This is 38-year-old question gentleman admitted from [place] ED as a direct admit for progressive worsening of shortness of breath for last 3 days and a right moderate pleural effusion. 1. Acute dyspnea and right moderate pleural effusion probably due to missed hemodialysis/CHF exacerbation: As per ER physician from [place] ED, patient had similar pleural effusion in October 2021. Chest x-ray portable ordered stat. Cycle troponin enzymes. On DuoNeb ordered. I myself called Dr. Kaufman and requested urgent hemodialysis for volume overload and shortness of breath. quality assurance monitor. Serum magnesium, phosphorus and BMP ordered stat. 2. Acute on chronic combined systolic and diastolic heart failure : Patient last echo in October 2021 shows EF 40%, mild concentric LVH. Echo in 2020 shows EF 50% with stage II diastolic dysfunction. Pharmacological nuclear stress test in 2021 was normal. Patient was seen in cardiology office by DEBBIE Zaidi in November 2021. Continue patient on maximum medical therapy. Cycle troponin. First troponin was 72 on upper limit normal. I do not think patient is having ischemic event/ACS as per history. 3. COPD: On 3 L of oxygen. Continue DuoNeb every 4 hourly. Does not seem to be in exacerbation. Incentive spirometry Pep and Mucinex. 4. Hypertensive urgency: Blood pressure is very high in systolic 22 hydralazine 10 mg IV stat. Amlodipine 10 mg, carvedilol 25 mg twice daily, hydralazine 50 mg 3 times daily and Afinitor 10 mg daily also ordered. Advised to get hypertension: Blood pressure stable, continue Coreg and lisinopril. 5. Anemia of chronic disease/ESRD on hemodialysis: Patient hemoglobin 9.8/29.8% is on baseline. #6 ESRD on hemodialysis MWF: It seems patient has missed hemodialysis 1 or 2 sessions. Fluid overload. Rest as mentioned above #7 DVT prophylaxis: Subcu heparin. Living will/advanced directive/end of life care: Patient does have living will or advanced directive. His is power of commonwealth attorney for health. After discussion of benefits/risks procedures involved with full code, DNR CC arrest and DNR CC, the patient and his opted for full code. Patient does want artificial life support including intubation, tube feed, ventilator and/chest compression, central venous catheter, vasopressor and DC shock if needed Total time spent in [id number] encounter in discussion of advanced directive 16 minutes. Charges/Coding Visit Charges OBSV E&M: 50283 Initial observation care L3 Procedures Hospitalists Procedures: 21453 Advncd Care Plan 30 Min
--- NOTE | 2022-02-04 06:00 | RAD_ITS ---
STUDY: X-RAY CHEST REASON FOR EXAM: Male, 46 years old. sob, right pleural effusion TECHNIQUE: AP portable. 5:50 AM. COMPARISON: 12/01/2016. FINDINGS: LINES/DEVICES: Pacemaker leads unchanged. Central venous catheter has been removed compared to the prior. LUNGS: Consolidation in the right mid to lower lung hazy opacity in the upper lung. Large right pleural effusion. Patchy opacity in the left lung base. No pneumothorax. MEDIASTINUM: Unremarkable. CARDIAC SILHOUETTE: Not enlarged. BONES AND SOFT TISSUES: No acute abnormalities. RAD/Chest 1 View (Portable) IMPRESSION: Large right pleural effusion with likely combination of atelectasis /consolidation and edema in the right lung. Cannot exclude other underlying abnormality. Minimal left basilar atelectasis. Electronically Signed: Zuleyma Mosquera MD at 7:08 EDT ,
[2022-02-04] MEDS: 0.9% Saline Lock 10 ML Syringe IV (06:48)
[2022-02-04] MEDS: hydrALAZINE 20 MG/ML Vial 10 MG IV (06:48)
[2022-02-04] MEDS: amLODIPine 10 MG Tablet PO (07:00)
[2022-02-04] MEDS: Carvedilol 25 MG Tablet PO (07:00)
[2022-02-04] MEDS: Ipratropium/Albuterol Sulfate 3 ML AMPUL.NEB INHALATION ×2 (07:02→14:09)
[2022-02-04 07:36] LABS: Troponin-I HS 62 pg/mL (3.0-78.0)
[2022-02-04 07:39] LABS: Anion Gap 16 (5-15); BUN 82 mg/dL (7-18); BUN/Creat Ratio 5.4 RATIO (10-20); Chloride 101 mmol/L (98-107); EST Glomerular Filtration Rate 4 mL/min (>60); Est Glom Filt Rate - Afr Amer 4 mL/min (>60); Estimated Creatinine Clearance 6.31 ml/min; Glucose 253 mg/dL (74-106); Potassium 5.4 mmol/L (3.5-5.1); Sodium Level 138 mmol/L (136-145)
--- NOTE | 2022-02-04 11:15 | PCM.HOSP.N ---
Hospitalist Note Patient seen and examined. Patient lying in bed asleep. Currently undergoing dialysis. Discussed case with Carla BARRON with nephrology and will likely get dialysis for the next 3 days.
[2022-02-04 11:54] LABS: Troponin-I HS 59 pg/mL (3.0-78.0)
[2022-02-04] MEDS: SEVELAMER CARBONATE 800 MG TABLET PO (13:30)
[2022-02-04] MEDS: Heparin Injection (Vial) 5,000 UNIT/ML VIAL 5000 UNIT SC (13:30)
[2022-02-04] MEDS: Psyllium 1 PACKET PO (13:31)
[2022-02-04] MEDS: guaiFENesin 1,200 MG Tablet 1200 MG PO (13:31)
[2022-02-04] MEDS: Senna/Docusate Sodium 1 Tablet 2 TABLET PO (13:31)
[2022-02-04] MEDS: Lisinopril 5 MG Tablet PO (13:33)
[2022-02-04] MEDS: NIFEdipine 30 MG Tablet PO (13:33)
[2022-02-04] MEDS: hydrALAZINE 50 MG Tablet PO (13:33)
--- NOTE | 2022-02-04 13:40 | CASEMGMT ---
Addendum entered by Rosalina Rutledge 02/04/22 14:32: This RN CM to room to discuss dialysis and any issues missing HD. Pt states was at work friday and was not able to get to dialysis and was trying to go to clinic on friday. [facility] are only open MWF so friday is not an option. Pt states no concerns with getting OP HD MWF from now on. Pt voices no further questions/concerns/needs. Hitesh PEACOCK CM Addendum entered by Rosalina Rutledge 02/04/22 13:45: Per nurse at [facility], pt only missed friday treatment. Hitesh PEACOCK CM Original Note: Pt goes to OP HD at [facility] in [place] MWF. Hitesh PEACOCK CM
--- NOTE | 2022-02-04 13:48 | DCINST_ITS ---
Discharge Instructions Diet Discharge Diet: Low fat / Low cholesterol and Renal Diet Activity Discharge Activity: Return to Normal Activity Dressing / Incision Call your doctor if you observe: Inability to urinate and Shortness of breath Follow Up Care Test Results: Test results from this visit will be discussed in further detail at your follow- up appointment, if applicable. Discharge Plan Admission Admit Date/Time: 02/04/22 05:17 Primary Reason for Your Visit: ESRD Attending Provider: Chi Perez Primary Care Provider: Tom Conte Consulting Providers: Ambrocio Pablo ; Gerardo Bradford Discharge Orders/Prescriptions Prescriptions: Continued amlodipine 10 mg tablet 10 mg PO DAILY acetaminophen 325 mg tablet 650 mg PO Q4H PRN (Reason: Pain) calcium acetate(phosphat bind) 667 mg capsule 2,668 mg PO TIDCM Label Comments: kidneys Rx Instructions: Take 2 caps with each snack hydralazine 50 mg tablet 50 mg PO TID nifedipine 30 mg tablet extended release 30 mg PO DAILY sevelamer carbonate 800 mg tablet 800 mg PO TID Rx Instructions: must administer with a meal/food lisinopril 5 mg tablet 5 mg PO DAILY carvedilol 25 MG tablet 25 mg PO BID Label Comments: blood pressure/heart - has not had for awhile Referrals / Follow Up: Tom Conte MD [Primary Care Provider] - Disposition Disposition (needs filled in before D/C Order can be placed): Home, Self Care
--- NOTE | 2022-02-04 13:51 | DS.PCM_ITS ---
Documented by User: LORI Colon 02/04/22 13:59 Providers Date of Admission: 02/04/22 Date of Discharge: 02/04/22 Primary Care Physician: Dr. Tom Conte MD Consultations 02/04/22 06:16 Consult: Nephrology Routine Consulting Provider: Ambrocio Pablo Reason for Consult: Urgent HD, SOB EMERGENT Consult: No MD Notified: Yes Date Notified: 02/04/22 Time Notified: 05:48 Method of Notification: Verbal Reason For Visit: SOB, ESRD ON HD Diagnosis Discharge Diagnosis (1) Acute dyspnea: Status: Acute Code(s): R06.00 - Dyspnea, unspecified (2) Pleural effusion, right: Status: Acute Code(s): J90 - Pleural effusion, not elsewhere classified Medications at Discharge Home Medications carvedilol 25 mg tablet 25 mg PO BID blood pressure 10/31/15 acetaminophen 325 mg tablet 650 mg PO Q4H PRN Pain 07/07/19 amlodipine 10 mg tablet 10 mg PO DAILY 07/07/19 calcium acetate(phosphat bind) 667 mg capsule 2,668 mg PO TIDCM phosphate binder 07/07/19 hydralazine 50 mg tablet 50 mg PO TID 08/21/21 lisinopril 5 mg tablet 5 mg PO DAILY 08/21/21 nifedipine 30 mg tablet,extended release 30 mg PO DAILY 08/21/21 sevelamer carbonate 800 mg tablet 800 mg PO TID 08/21/21 Hospital Course Operations None Procedures None Summary of Care Provided Minutes Spent on Discharge: 20 Hospital Course: Patient is a 46-year-old male who initially presented to the ER with shortness of breath. Patient is end-stage renal disease and has been on dialysis for approximately 20 years. Patient stated that he missed dialysis on Friday as he got a new job and thought that he could reschedule at last minute and was not able to. Patient received dialysis this morning and it is much improved, 3100 ml removed. Discussed with patient importance of going to dialysis as scheduled and compliance with all medications, patient verbalized understanding. Physical Exam Const alert, oriented x3 and no apparent distress General Appearance: cooperative HEENT normocephalic and head/scalp atraumatic Eyes conjunctivae normal and no scleral icterus Neck supple General: trachea midline Resp normal respiratory effort and normal air movement Effort and Inspection: able to speak in complete sentences and symmetric chest movement Auscultation: crackles Cardio regular rate, regular rhythm, S1 normal heart sound, S2 normal heart sound and peripheral pulses 2+ throughout GI normal to inspection, nondistended, normoactive bowel sounds, soft to palpation and non-tender Extremity normal capillary refill and no clubbing, cyanosis or edema Extremity Narrative: Fistula to right upper arm, positive thrill and bruit Skin skin turgor normal Neuro no focal motor deficits and no sensory deficits noted Psych affect normal Weight / BMI Weight Weight: 165 lb 9.074 oz Body Mass Index (BMI) 23.1 ABG / Lab / Microbiology Data Result Diagrams: 02/04/22 05:44 Laboratory: Laboratory Results - last 24 hr 02/04/22 05:44: Sodium 138, Potassium 5.4 H, Chloride 101, Carbon Dioxide 21.0, Anion Gap 16 H, BUN 82 H, Creatinine 15.20 H*, Estim Creat Clear Calc 6.31, Est GFR (MDRD) Af Amer 4 L, Est GFR (MDRD) Non-Af 4 L, BUN/Creatinine Ratio 5.4 L, Glucose 253 H, Calcium 8.0 L, Magnesium 3.0 H, Troponin I High Sens Cancelled 02/04/22 05:44: Phosphorus 9.0 H* 02/04/22 06:50: Troponin I High Sens 62 02/04/22 11:07: Troponin I High Sens 59 Radiography Diagnostic Testing: Radiology Impression Chest X-Ray 02/04/22 06:00 IMPRESSION: Large right pleural effusion with likely combination of atelectasis /consolidation and edema in the right lung. Cannot exclude other underlying abnormality. Minimal left basilar atelectasis. Electronically Signed: Zuleyma Mosquera MD at 7:08 EDT , D/C Instructions Discharge Diet: Low fat / Low cholesterol and Renal Diet Call your doctor if you observe: Inability to urinate and Shortness of breath Meaningful Use Info Meaningful Use Diagnoses (Choose all that apply): None applicable Discharge Plan Admission Admit Date/Time: 02/04/22 05:17 Primary Reason for Your Visit: ESRD Attending Provider: Chi Perez Primary Care Provider: Tom Conte Consulting Providers: Ambrocio Pablo ; Gerardo Bradford Discharge Orders/Prescriptions Prescriptions: Continued amlodipine 10 mg tablet 10 mg PO DAILY acetaminophen 325 mg tablet 650 mg PO Q4H PRN (Reason: Pain) calcium acetate(phosphat bind) 667 mg capsule 2,668 mg PO TIDCM Label Comments: kidneys Rx Instructions: Take 2 caps with each snack hydralazine 50 mg tablet 50 mg PO TID nifedipine 30 mg tablet extended release 30 mg PO DAILY sevelamer carbonate 800 mg tablet 800 mg PO TID Rx Instructions: must administer with a meal/food lisinopril 5 mg tablet 5 mg PO DAILY carvedilol 25 MG tablet 25 mg PO BID Label Comments: blood pressure/heart - has not had for awhile Referrals / Follow Up: Tom Conte MD [Primary Care Provider] - Disposition Disposition (needs filled in before D/C Order can be placed): Home, Self Care Documented by User: Dr. Chi Perez DO 02/04/22 16:21 Providers Date of Admission: 02/04/22 Reason For Visit: SOB, ESRD ON HD Diagnosis Discharge Diagnosis (1) Acute dyspnea: Status: Acute Code(s): R06.00 - Dyspnea, unspecified (2) Pleural effusion, right: Status: Acute Code(s): J90 - Pleural effusion, not elsewhere classified Medications at Discharge Home Medications carvedilol 25 mg tablet 25 mg PO BID blood pressure 10/31/15 acetaminophen 325 mg tablet 650 mg PO Q4H PRN Pain 07/07/19 amlodipine 10 mg tablet 10 mg PO DAILY 07/07/19 calcium acetate(phosphat bind) 667 mg capsule 2,668 mg PO TIDCM phosphate binder 07/07/19 hydralazine 50 mg tablet 50 mg PO TID 08/21/21 lisinopril 5 mg tablet 5 mg PO DAILY 08/21/21 nifedipine 30 mg tablet,extended release 30 mg PO DAILY 08/21/21 sevelamer carbonate 800 mg tablet 800 mg PO TID 08/21/21 ABG / Lab / Microbiology Data Result Diagrams: 02/04/22 05:44 Discharge Plan Admission Admit Date/Time: 02/04/22 05:17 Primary Reason for Your Visit: ESRD Attending Provider: Chi Perez Primary Care Provider: Tom Conte Consulting Providers: Ambrocio Pablo ; Gerardo Bradford Discharge Orders/Prescriptions Prescriptions: Continued amlodipine 10 mg tablet 10 mg PO DAILY acetaminophen 325 mg tablet 650 mg PO Q4H PRN (Reason: Pain) calcium acetate(phosphat bind) 667 mg capsule 2,668 mg PO TIDCM Label Comments: kidneys Rx Instructions: Take 2 caps with each snack hydralazine 50 mg tablet 50 mg PO TID nifedipine 30 mg tablet extended release 30 mg PO DAILY sevelamer carbonate 800 mg tablet 800 mg PO TID Rx Instructions: must administer with a meal/food lisinopril 5 mg tablet 5 mg PO DAILY carvedilol 25 MG tablet 25 mg PO BID Label Comments: blood pressure/heart - has not had for awhile Referrals / Follow Up: Tom Conte MD [Primary Care Provider] - Disposition Disposition (needs filled in before D/C Order can be placed): Home, Self Care Charges/Coding Addendum Addendum: Patient seen and examined independently. Data and vitals reviewed. I agree with the above note by the nurse practitioner. This is a 38-year-old male presents with shortness of breath that began the day of admission. Patient was doing well up until the day as he was not able to tiff athe and presented to an outside emergency room. Patient was noted to be hypertensive at 200/112 and was 93% on room air. Chest x-ray showed a large right pleural effusion. Patient is on chronic dialysis and states that he has been compliant. Patient was brought in and his hospitalization was un complicated. Patient did receive dialysis today and was feeling well while on dialysis despite having some leg cramps. Patient feels good and ready to go home and greater to go back to work. Patient states that he is compliant with diet and states that he will have a Sprite that will last him days and does not drink any alcohol and goes to his scheduled dialysis sessions with exception of this past Friday. Physical exam: Patient is seen on dialysis. Large fistula in right upper extremity. Heart rate regular rate and rhythm plus S1-S2 with a murmurs Rubs. Lungs Are Clear to Auscultation Bilaterally. Assessment and plan: Right pleural effusion: Likely transudative due to his end- stage renal disease. It is concerning that he may be more noncompliant that he states but he is adamant that he goes dialysis every session. No indication for thoracentesis at this time but if it does get larger that may be indicated. End-stage renal disease: On hemodialysis. Patient did have dialysis today. Patient to have further dialysis per his senior planning analyst. Greater than 25 minutes spent discussing with patient, reviewing data, documents and developing a plan with the patient. Visit Charges OBSV E&M: 00259 Observation care discharge
--- NOTE | 2022-02-04 14:03 | PHA.DC.MR ---
Pharmacy Service has performed discharge medication reconciliation for this patient. The patient's discharge medication list was reviewed for discrepancies and discrepancies were resolved. Home Medications carvedilol 25 mg tablet 25 mg PO BID blood pressure 10/31/15 acetaminophen 325 mg tablet 650 mg PO Q4H PRN Pain 07/07/19 amlodipine 10 mg tablet 10 mg PO DAILY 07/07/19 calcium acetate(phosphat bind) 667 mg capsule 2,668 mg PO TIDCM phosphate binder 07/07/19 hydralazine 50 mg tablet 50 mg PO TID 08/21/21 lisinopril 5 mg tablet 5 mg PO DAILY 08/21/21 nifedipine 30 mg tablet,extended release 30 mg PO DAILY 08/21/21 sevelamer carbonate 800 mg tablet 800 mg PO TID 08/21/21
--- NOTE | 2022-02-04 14:54 | PCM.CONS.R ---
Assessment & Plan Assessment/Plan (1) ESRD (end stage renal disease) on dialysis: (2) Pleural effusion, right: (3) Essential hypertension: (4) Hyperkalemia: PLAN: Plan Patient was transferred to [facility] for dialysis needs after he presented to [place] emergency room with complaints of shortness of breath. Chest x-ray showed large right pleural effusion, white count normal, patient afebrile. Patient was also noted to be hypertensive and mild hyperkalemic, potassium 5.4. He underwent hemodialysis today over 3 hours and 45 minutes and tolerated about 3 L fluid removal. Patient was requiring oxygen on admission, he is now on room air. Breathing has improved. Blood pressure has improved. No changes were made to his antihypertensives. Patient is feeling better after dialysis. There is possibility that patient will be discharged to home today. Okay for discharge per renal standpoint. Patient states that he will be able to make his dialysis session on Friday. Patient's outpatient EDW 72.5 kg. Dry weight can be slowly challenged in the outpatient setting; reviewed this with patient. Unable to get below EDW today with dialysis today as patient did have some mild bilateral leg cramping towards the end of dialysis. Patient receives WAQAR with dialysis. Thank you for allowing us to participate in the care of Mr. Dodson. HPI Consult Data Date of Consult: 02/04/22 HPI Narrative HPI Narrative: JOSE ELIAS DODSON, is a 46 M with past medical history significant for end-stage renal disease on hemodialysis at [facility] under the direction of Dr. Hu Friday schedule, nonischemic cardiomyopathy status post AICD who presented emergency room with complaints of shortness of breath. Admitted for further evaluation and treatment. Patient reports that he missed his dialysis session last Friday. Patient states he started a new job. He denies any recent fevers or chills, no recent nausea vomiting or diarrhea. No recent cramping with dialysis. FOR[facility]LY [facility] Medical History Anemia due to chronic renal failure treated with erythropoietin, stage 5 Anxiety and depression Chronic systolic (congestive) heart failure COPD (chronic obstructive pulmonary disease) ESRD (end stage renal disease) on dialysis Essential hypertension GERD (gastroesophageal reflux disease) Hyperkalemia Hyperphosphatemia Non compliance w medication regimen Non compliance with medical treatment Non-compliance with renal dialysis Non-ischemic cardiomyopathy Problem with dialysis access Renal transplant failure and rejection Systolic murmur Home Medications carvedilol 25 mg tablet 25 mg PO BID blood pressure 10/31/15 [History Last Taken 10/01/16] acetaminophen 325 mg tablet 650 mg PO Q4H PRN Pain 07/07/19 [History Last Taken Unknown] amlodipine 10 mg tablet 10 mg PO DAILY 07/07/19 [History Last Taken Unknown] calcium acetate(phosphat bind) 667 mg capsule 2,668 mg PO TIDCM phosphate binder 07/07/19 [History Last Taken Unknown] hydralazine 50 mg tablet 50 mg PO TID 08/21/21 [History Last Taken Unknown] lisinopril 5 mg tablet 5 mg PO DAILY 08/21/21 [History Last Taken Unknown] nifedipine 30 mg tablet,extended release 30 mg PO DAILY 08/21/21 [History Last Taken Unknown] sevelamer carbonate 800 mg tablet 800 mg PO TID 08/21/21 [History Last Taken Unknown] Allergy/AdvReac Type Severity Reaction Status Date / Time nifedipine [From Procardia] Allergy Severe Swelling Verified 11/27/21 10:36 Iodinated Contrast Media Allergy Fever and Verified 11/27/21 10:36 [CONTRASTS] skin rash Penicillins Allergy Anaphylaxis Verified 11/27/21 10:36 cyclobenzaprine AdvReac dizzy, Verified 11/27/21 10:36 [From Flexeril] faints hydralazine AdvReac Low blood Verified 11/27/21 10:36 pressure tramadol [From Ultram] AdvReac Rash Verified 11/27/21 10:36 Family History Father Diabetes Heart disease Hypertension Presence of implantable cardioverter-defibrillator (ICD) Brother Heart disease Hypertension Diabetes Presence of implantable cardioverter-defibrillator (ICD) LVAD (left ventricular assist device) present Surgical History History of implantable cardiac defibrillator (ICD) (02/03/15) Hx of cholecystectomy Hx of kidney transplant Hx of partial thyroidectomy (12/07/99) Presence of surgically created primary arteriovenous shunt for hemodialysis Social History Smoking Status: Current every day smoker tobacco type: cigarettes second hand exposure: Yes quit status: considering quitting alcohol intake: current alcohol intake frequency: holidays/special occasions only substance use type: does not use caffeine: Yes Type: carbonated beverages Number of servings: 3 what type of physical activity do you participate in: walking frequency: daily seatbelt use: always Physical Exam Narrative Alert and oriented x3, no apparent distress Cardio: S1-S2, RRR Respiratory: Lung sounds clear anteriorly and posteriorly. On room air GI: Abdomen soft, nontender, positive bowel sounds Extremities: No edema noted to bilateral lower legs or arms AV fistula right arm positive thrill and bruit Lab / Micro Data Result Diagrams: 02/04/22 05:44 Labs: Laboratory Results - last 24 hr 02/04/22 05:44: Sodium 138, Potassium 5.4 H, Chloride 101, Carbon Dioxide 21.0, Anion Gap 16 H, BUN 82 H, Creatinine 15.20 H*, Estim Creat Clear Calc 6.31, Est GFR (MDRD) Af Amer 4 L, Est GFR (MDRD) Non-Af 4 L, BUN/Creatinine Ratio 5.4 L, Glucose 253 H, Calcium 8.0 L, Magnesium 3.0 H, Troponin I High Sens Cancelled 02/04/22 05:44: Phosphorus 9.0 H* 02/04/22 06:50: Troponin I High Sens 62 02/04/22 11:07: Troponin I High Sens 59 Radiology Impression Chest X-Ray 02/04/22 06:00 IMPRESSION: Large right pleural effusion with likely combination of atelectasis /consolidation and edema in the right lung. Cannot exclude other underlying abnormality. Minimal left basilar atelectasis. Electronically Signed: Zuleyma Mosquera MD at 7:08 EDT ,
== END 2022-02-04 13:50 | disposition home or self-care (01) ==
PROVIDERS: Admitting Provider Internal Medicine; PCP Family Medicine
DX: J90 Pleural effusion, not elsewhere classified (principal); I13.2 Hypertensive heart and chronic kidney disease with heart failure and with stage 5 chronic kidney disease, or end stage renal disease; Z99.2 Dependence on renal dialysis; J44.9 Chronic obstructive pulmonary disease, unspecified; I42.8 Other cardiomyopathies; I50.22 Chronic systolic (congestive) heart failure; N18.6 End stage renal disease; F17.210 Nicotine dependence, cigarettes, uncomplicated; Z95.810 Presence of automatic (implantable) cardiac defibrillator; E87.5 Hyperkalemia; D63.1 Anemia in chronic kidney disease; K21.9 Gastro-esophageal reflux disease without esophagitis; Z91.19 Patient's noncompliance with other medical treatment and regimen; Z94.0 Kidney transplant status; Z79.899 Other long term (current) drug therapy; Z99.81 Dependence on supplemental oxygen
CPT/HCPCS: 36415; 71045; 80048; 83735; 84100; 84484; 90937; 94640; 94667; 96372; 96374; 99218; 99251; 99406; J7030; A4216; G0257; G0378; G0379; G0463

== ENCOUNTER 2022-06-29 20:40 | Emergency (ER) | payer MEDICARE, MEDICAID, SELFPAY ==
[2022-06-29 20:41] VITALS: BP 157/89; PULSE 87; RESP 17; TEMP 36.6; O2SAT 100; BMI 21.2
--- NOTE | 2022-06-29 21:20 | EDS_ITS ---
HPI History of Present Illness Chief Complaint: Chest Other Detail of Chief Complaint: Discomfort at the right pleural effusion chest tube. Informant: patient and spouse/S.O. Onset/Context/Timing Onset: Today Context: Gradual Onset Timing: Continuous Current Severity: Mild Maximum Severity: Mild Narrative Narrative: 46-year-old male history of end-stage renal disease gets dialyzed Friday gets heparin with his dialysis is on no other blood thinners. History of COPD, CHF, cardiomyopathy and a defibrillator. Friday about 5 days ago at [facility] he had a right pleural catheter placed by interventional radiology. Procedure was doing well with little uncomfortable but told him that would take some time. He has noticed some blood in the tube and a small amount of seepage around it. He denies any fever or shortness of breath. He had a prior right pleural effusion tube but that [address] the [address] the one that he currently has in. Prior similar symptoms: Yes Recent Illness/Hospitalization: No PFSH PFSH Medical History Anemia due to chronic renal failure treated with erythropoietin, stage 5 Anxiety and depression Chronic systolic (congestive) heart failure COPD (chronic obstructive pulmonary disease) ESRD (end stage renal disease) on dialysis Essential hypertension GERD (gastroesophageal reflux disease) History of implantable cardiac defibrillator (ICD) (02/03/15) Hyperkalemia Hyperphosphatemia Non compliance w medication regimen Non compliance with medical treatment Non-compliance with renal dialysis Non-ischemic cardiomyopathy Problem with dialysis access Renal transplant failure and rejection Systolic murmur Home Medications acetaminophen 325 mg tablet 650 mg PO Q4H PRN Pain 07/07/19 [History Last Taken Unknown] calcium acetate(phosphat bind) 667 mg capsule 2,668 mg PO TIDCM phosphate binder 07/07/19 [History Last Taken Unknown] hydralazine 50 mg tablet 50 mg PO TID 08/21/21 [History Last Taken Unknown] lisinopril 5 mg tablet 5 mg PO DAILY 08/21/21 [History Last Taken Unknown] sevelamer carbonate 800 mg tablet 800 mg PO TID 08/21/21 [History Last Taken Unknown] nifedipine 90 mg tablet,extended release 24 hr 90 mg PO DAILY #90 tabs 06/19/22 [Rx Last Taken Unknown] Allergy/AdvReac Type Severity Reaction Status Date / Time Iodinated Contrast Media Allergy Fever and Verified 06/29/22 20:43 [CONTRASTS] skin rash Penicillins Allergy Anaphylaxis Verified 06/29/22 20:43 cyclobenzaprine AdvReac dizzy, Verified 06/29/22 20:43 [From Flexeril] faints tramadol [From Ultram] AdvReac Rash Verified 06/29/22 20:43 Family History Father Diabetes Heart disease Hypertension Presence of implantable cardioverter-defibrillator (ICD) Brother Heart disease Hypertension Diabetes Presence of implantable cardioverter-defibrillator (ICD) LVAD (left ventricular assist device) present Surgical History Hx of cholecystectomy Hx of kidney transplant Hx of partial thyroidectomy (12/07/99) Presence of surgically created primary arteriovenous shunt for hemodialysis Social History Smoking Status: Current every day smoker tobacco type: cigarettes second hand exposure: Yes quit status: considering quitting alcohol intake: never substance use type: does not use caffeine: Yes Type: carbonated beverages Number of servings: 3 what type of physical activity do you participate in: walking frequency: daily seatbelt use: always ROS ROS ED ROS Narrative Denies recent illness. Review of Systems ROS Unobtainable: Denies due to encephalopathy Constitutional Constitutional ED: Denies chills or fever(s) ENT ENT ED: Denies ear pain Cardiovascular Cardiovascular: Denies chest pain Respiratory/Chest Respiratory/Chest: Denies cough or dyspnea Gastrointestinal Gastrointestinal: Denies abdominal pain Genitourinary Genitourinary ED: Denies dysuria or hematuria Musculoskeletal Musculoskeletal: Denies arthralgias Integumentary Denies abscess Neurologic Neurologic: Denies headache(s) Psychiatric Psychiatric: Denies anxiety or depression Endocrine Endocrinology: Denies cold intolerance Hematologic/Lymphatic Hematologic/Lymphatic: Reports none Allergic/Immunologic Allergic/Immunologic ED: Denies mouth swelling or tongue swelling EXAM Physical Exam Narrative Exam Narrative: Middle-age male. Vital signs stable afebrile. Pulse ox 90% on room air no signs hypoxia. H EENT exam unremarkable. Neck nontender. Lungs clear to auscultation bilaterally. Chest wall nontender. He has a tunneled right pleural effusion catheter placed along his right lower rib cage. It goes underneath the skin and tunnels into his chest cavity. There is no redness. There is a small amount of blood in the tube. There is no signs of infection. Heart regular rhythm. Abdomen soft nontender normal bowel sounds no peritoneal signs. Moving all 4 extremities. Dialysis shunt with a thrill in his right upper arm. Neurologically is awake and alert. Const Vital Signs: 06/29/22 20:41 Temperature 98 F Temperature Source Temporal Pulse Rate 87 Respiratory Rate 17 Blood Pressure 157/89 H Blood Pressure Mean 111 Pulse Ox 100 Oxygen Delivery Method Room Air Positive well nourished and well developed; Negative for obese, cachectic, contractures or unkempt General Appearance ED: well developed and NAD; Negative for unkempt, cachectic, contractures, cyanotic, diaphoretic or pallor Nutritional Appearance: Negative for cachectic or obese HEENT Reports moist mucous membranes Negative for trauma or tenderness Eyes PERRL and EOMs intact bilaterally General Eye ED: Negative for pale conjunctiva or scleral icterus Neck no lymphadenopathy, supple and no JVD General: Negative for tenderness Chest Wall inspection of chest normal and palpation of chest normal Chest Narrative: Right tunneled subcu pleural effusion catheter right lower chest wall. No signs of infection. Resp normal respiratory effort Auscultation: Negative for rales, rhonchi or wheezes Cardio regular rate, regular rhythm, S1 normal heart sound, S2 normal heart sound and no murmurs GI normal to inspection, nondistended, normoactive bowel sounds, non-tender, non- distended and no masses Inspection: Negative for abdominal distention Auscultation: normoactive bowel sounds Palpation: soft; Negative for tender or guarding Back/Spine no CVA tenderness General Back: Negative for CVA tenderness Cervical Spine: Negative for cervical spine tenderness Thoracic Spine / Upper Back: Negative for thoracic spinal tenderness Lumbar Spine / Lower Back: Negative for lumbar spinal tenderness Extremity normal to inspection Extremity Narrative: Right upper arm dialysis catheter with thrill. General Extremety ED: Negative for tenderness Neuro oriented x3 Sensorium / Orientation: alert; Negative for orientation impaired, lethargic or stuporous Motor Exam: strength 5/5 throughout Psych mental status grossly normal Appearance: Negative for unkempt Attitude: No agitated Mood & Affect: Negative for depressed, anxious or tearful Skin no rashes or lesions noted and no wounds General Skin Exam: Negative for jaundice or pallor Lesions: No lesion noted Rashes: No rashes noted Trauma: Negative for abrasion Wounds: Negative for wounds noted MDM MDM MDM Narrative Medical decision making narrative: 46-year-old male with extensive past medical history including cardiac history, COPD end-stage renal disease and right pleural effusion. He has a tunneled right pleural effusion catheter placed by interventional radiology at [facility] 5 days ago. Complains small amount of blood in seepage. Catheter appears to be in good positioning. Obtain a chest x-ray. There is no signs of infection. He does not need any lab work. He has been getting his dialysis regularly. Repeat exam patient is doing well at 10:08 PM. He will be discharged to home. Chest x-ray unremarkable. He will be discharged home. Radiography Chest X-Ray - ED: 1 View, Read by ED Physician, Heart, Mediastinum, Bony Structures, Chronic Changes and Right Effusion Diagnostic Testing: Clinical Impression(s) from Imaging Studies Chest X-Ray 06/29/22 21:25 IMPRESSION: Small right pleural effusion and basilar atelectasis status post chest tube placement. Electronically Signed: Tom Gautam MD at 21:50 EST Reading Location ID and State: [facility] / [place] , Service support , Chest x-ray, portable, single view interpreted by myself and the radiologist shows a right pleural effusion. Right pleural cath in the right lower chest cavity. Discharge Plan Triage Chief Complaint: Chest Other Other Complaint: General Illness ED Provider: Oneil Underwood Dx/Rx/DC Orders Clinical Impression: Complication of chest tube, Pleural effusion on right, History of end stage renal disease Instructions: ED Pleural Effusion Prescriptions: No Action acetaminophen 325 mg tablet 650 mg PO Q4H PRN (Reason: Pain) calcium acetate(phosphat bind) 667 mg capsule 2,668 mg PO TIDCM Label Comments: kidneys Rx Instructions: Take 2 caps with each snack hydralazine 50 mg tablet 50 mg PO TID sevelamer carbonate 800 mg tablet 800 mg PO TID Rx Instructions: must administer with a meal/food lisinopril 5 mg tablet 5 mg PO DAILY nifedipine 90 mg tablet extended release 24hr 90 mg PO DAILY Qty: 90 3RF Primary Care Provider: Tom Conte Referrals: Tom Conte MD [Primary Care Provider] - Activity Restrictions/Additional Instructions: Her fusion appears to be draining. The catheter appears to be in good position. Follow-up. As scheduled. Disposition Disposition: Home, Self Care
--- NOTE | 2022-06-29 21:25 | RAD_ITS ---
INDICATION: recent pleural catheter placed. effusion EXAMINATION/TECHNIQUE: X-RAY - XR Chest 1 View COMPARISON: February 04, 2022 FINDINGS: LINES/DEVICES: Chest tube is seen at the right lung base. Pacemaker noted on the left with electrodes in satisfactory position LUNGS: There is a right pleural effusion with yatelectasis or infiltrate at the right base MEDIASTINUM AND CARDIOVASCULAR STRUCTURES: Cardiac silhouette not enlarged. Central airways and mediastinal contour are unremarkable. BONES AND SOFT TISSUES: Unremarkable. RAD/Chest 1 View (Portable) IMPRESSION: Small right pleural effusion and basilar atelectasis status post chest tube placement. Electronically Signed: Tom Gautam MD at 21:50 EST ,
== END 2022-06-29 22:44 | disposition home or self-care (01) ==
PROVIDERS: Emergency Provider Emergency Medicine; PCP Family Medicine; Visit Provider Emergency Medicine
DX: T85.9XXA Unspecified complication of internal prosthetic device, implant and graft, initial encounter (principal); I13.2 Hypertensive heart and chronic kidney disease with heart failure and with stage 5 chronic kidney disease, or end stage renal disease; Z99.2 Dependence on renal dialysis; J44.9 Chronic obstructive pulmonary disease, unspecified; I50.22 Chronic systolic (congestive) heart failure; N18.6 End stage renal disease; F17.210 Nicotine dependence, cigarettes, uncomplicated; J90 Pleural effusion, not elsewhere classified; X58.XXXA Exposure to other specified factors, initial encounter
CPT/HCPCS: 71045; 99283

== ENCOUNTER 2022-07-30 19:26 | Emergency (ER) | payer MEDICARE, MEDICAID, SELFPAY ==
[2022-07-30 19:27] VITALS: BP 131/75; PULSE 102; RESP 16; TEMP 37.7; O2SAT 93; BMI 21.2
--- NOTE | 2022-07-30 19:30 | EKG12_ITS ---
Test Reason : CP Blood Pressure : / mmHG Vent. Rate : 090 BPM Atrial Rate : 090 BPM P-R Int : 148 ms QRS Dur : 096 ms QT Int : 372 ms P-R-T Axes : 039 -30 119 degrees QTc Int : 455 ms Normal sinus rhythm Left axis deviation Left ventricular hypertrophy with repolarization abnormality Abnormal ECG Confirmed by SARITA MCCALL, NITO ([id number]), communications editor DEJAH LEA ([id number]) on 08/01/2022 1:03:30 PM Referred By: GLADIS Confirmed By:NITO STEIN MD
[2022-07-30 20:27] VITALS: BP 134/78; PULSE 78; RESP 16; O2SAT 99
--- NOTE | 2022-07-30 20:29 | EX.ED.GENINJ ---
HPI History of Present Illness Chief Complaint: Chest Other Narrative Narrative: 46-year-old male with history of nonischemic cardiomyopathy, hypertension, end-stage renal disease on dialysis presenting with fever for the last week. He states that for the last week he has had fevers at night of less than 100 ?F. Last night he said his temperature was 104 ?F. He states that he just sat in took a couple of deep breaths and relax and his fever went away. He did not take anything to treat the fever. He states that he does have a defibrillator and upper chest wall. He reports that this was really red and tender. It is now back to normal. Patient also has a right-sided chest tube in. This is managed by [facility]. He supposed to have this out in a week or so. He states he does not still try to drain fluid from this and is not getting much. He states that his surgeon request that he call him back in a week and report again. Other than the fever the patient states he is not very sent home. He has a little bit of stomach upset. [facility] Medical History Anemia due to chronic renal failure treated with erythropoietin, stage 5 Anxiety and depression Chronic systolic (congestive) heart failure COPD (chronic obstructive pulmonary disease) ESRD (end stage renal disease) on dialysis Essential hypertension GERD (gastroesophageal reflux disease) History of implantable cardiac defibrillator (ICD) (02/03/15) Hyperkalemia Hyperphosphatemia Non compliance w medication regimen Non compliance with medical treatment Non-compliance with renal dialysis Non-ischemic cardiomyopathy Problem with dialysis access Renal transplant failure and rejection Systolic murmur Home Medications acetaminophen 325 mg tablet 650 mg PO Q4H PRN Pain 07/07/19 [History Last Taken Unknown] calcium acetate(phosphat bind) 667 mg capsule 2,668 mg PO TIDCM phosphate binder 07/07/19 [History Last Taken Unknown] hydralazine 50 mg tablet 50 mg PO TID 08/21/21 [History Last Taken Unknown] lisinopril 5 mg tablet 5 mg PO DAILY 08/21/21 [History Last Taken Unknown] sevelamer carbonate 800 mg tablet 800 mg PO TID 08/21/21 [History Last Taken Unknown] nifedipine 90 mg tablet,extended release 24 hr 90 mg PO DAILY #90 tabs 06/19/22 [Rx Last Taken Unknown] Allergy/AdvReac Type Severity Reaction Status Date / Time Iodinated Contrast Media Allergy Fever and Verified 07/30/22 19:31 [CONTRASTS] skin rash Penicillins Allergy Anaphylaxis Verified 07/30/22 19:31 cyclobenzaprine AdvReac dizzy, Verified 07/30/22 19:31 [From Flexeril] faints tramadol [From Ultram] AdvReac Rash Verified 07/30/22 19:31 Family History Father Diabetes Heart disease Hypertension Presence of implantable cardioverter-defibrillator (ICD) Brother Heart disease Hypertension Diabetes Presence of implantable cardioverter-defibrillator (ICD) LVAD (left ventricular assist device) present Surgical History Hx of cholecystectomy Hx of kidney transplant Hx of partial thyroidectomy (12/07/99) Presence of surgically created primary arteriovenous shunt for hemodialysis Social History Smoking Status: Current every day smoker tobacco type: cigarettes second hand exposure: Yes quit status: considering quitting alcohol intake: never substance use type: does not use caffeine: Yes Type: carbonated beverages Number of servings: 3 what type of physical activity do you participate in: walking frequency: daily seatbelt use: always ROS ROS ED Constitutional Constitutional ED: Reports fever(s) Eyes Eyes: Denies change in vision ENT ENT ED: Denies rhinorrhea or sore throat Cardiovascular Cardiovascular: Reports chest pain Respiratory/Chest Respiratory/Chest: Denies cough or dyspnea Gastrointestinal Gastrointestinal: Reports nausea; Denies abdominal pain Genitourinary Genitourinary ED: Denies dysuria or hematuria Musculoskeletal Musculoskeletal: Denies arthralgias or back pain Integumentary Denies abscess or Abrasions Neurologic Neurologic: Denies headache(s) Psychiatric Psychiatric: Denies anxiety or depression EXAM Physical Exam Const Vital Signs: 07/30/22 19:27 07/30/22 20:27 Temperature 99.9 F H Temperature Source Oral Pulse Rate 102 H 78 Respiratory Rate 16 16 Blood Pressure 131/75 H 134/78 H Blood Pressure Mean 93 96 Pulse Ox 93 99 Oxygen Delivery Method Room Air Room Air Positive well nourished General Appearance ED: NAD HEENT atraumatic Eyes PERRL and EOMs intact bilaterally Chest Wall Chest Narrative: Defibrillator site nontender. No surrounding erythema or induration. No fluctuance. Resp normal respiratory effort and clear to auscultation bilaterally Resp Narrative: Equal symmetric breath sounds and chest wall rise. Cardio regular rhythm Rate: regular rate GI normal to inspection, nondistended, normoactive bowel sounds Neuro oriented x3 and CN's II-XII intact bilaterally Sensorium / Orientation: alert and oriented to person Motor Exam: strength 5/5 throughout Psych mental status grossly normal and thought process normal Skin no rashes or lesions noted MDM MDM MDM Narrative Medical decision making narrative: 46-year-old male presenting with fevers for the last week. He states the only happen at night. From what sounds like he did not have a fever until last night and he states it was 104 ?F and he did nothing for this and it resolved on its own. Nobody else in his household is sick. He states he does not feel ill. He does state that there is a tingling sensation from where his pacemaker defibrillator that to the left shoulder. He states not painful. He does report this was previously reddened but it does not look that way currently. There is no fluctuance induration or erythema. The area is not tender. Lungs clear to auscultation bilaterally. Patient slightly tachycardic at a heart rate of 102 initially but after settling in the bed he is 78. Temperature 99.9. Pulse ox currently anywhere 93 to 99%. Differential diagnosis pneumonia, viral etiology most likely. Patient does have a indwelling chest tube for pneumothorax. States is not draining anymore. Does not look infected on examination. CBC to assess white blood cell count, hemoglobin, differential. No leukocytosis. Hemoglobin stable 8.5. Platelet count 318. Minimal left shift. CMP to assess renal function, liver function, electrolytes, glucose and anion gap. LFTs are normal. Glucose 99 no anion gap. Creatinine 10.3 however patient is end-stage renal disease on dialysis. Sodium slightly low at 132. Potassium is normal. EKG normal sinus rhythm with a ventricular rate of 90 bpm with evidence of LVH.High-sensitivity troponin was 41. this is actually much lower than his normal troponins in the past. Patient also had recent negative stress test. COVID and influenza to assess for viral sources and these are negative. Chest x-ray on my interpretation shows a mild increase in the right pleural effusion however the radiologist interpretation agrees. Given patient's essentially normal work-up believe he is stable for discharge. Return precautions were discussed. Impression: 1. Febrile illness Lab Data Attestation: I reviewed the patient's lab results. Labs: Laboratory Results - last 24 hr 07/30/22 07/30/22 20:40 20:40 WBC 8.1 RBC 3.21 L Hgb 8.5 L Hct 27.1 L MCV 84.4 MCH 26.5 L MCHC 31.4 L RDW Std Deviation 46.5 H RDW Coeff of Good 15.1 H Plt Count 318 MPV 8.5 Immature Gran % (Auto) 0.500 Neut % (Auto) 77.1 H Lymph % (Auto) 8.6 L [place] % (Auto) 12.8 H Eos % (Auto) 0.6 Baso % (Auto) 0.4 Absolute Neuts (auto) 6.2 Absolute Lymphs (auto) 0.70 L Nucleated RBC % 0 Sodium 132 L Potassium 4.8 Chloride 93 L Carbon Dioxide 29.0 Anion Gap 10 BUN 55 H Creatinine 10.30 H* Estim Creat Clear Calc 8.56 Est GFR (MDRD) Af Amer 7 L Est GFR (MDRD) Non-Af 6 L BUN/Creatinine Ratio 5.3 L Glucose 99 Calcium 7.8 L Total Bilirubin 0.50 AST 28 ALT 20 Alkaline Phosphatase 95 Troponin I High Sens 41 Total Protein 7.6 Albumin 2.5 L Globulin 5.1 H Albumin/Globulin Ratio 0.5 L Radiography Diagnostic Testing: Clinical Impression(s) from Imaging Studies Chest X-Ray 07/30/22 20:55 IMPRESSION: Increased right pleural effusion. Normal appearance of the cardiac device and leads. Electronically Signed: Cristiano Ngo MD at 21:15 EST , Discharge Plan Triage Chief Complaint: Chest Other ED Provider: Basim Ha Dx/Rx/DC Orders Prescriptions: No Action acetaminophen 325 mg tablet 650 mg PO Q4H PRN (Reason: Pain) calcium acetate(phosphat bind) 667 mg capsule 2,668 mg PO TIDCM Label Comments: kidneys Rx Instructions: Take 2 caps with each snack hydralazine 50 mg tablet 50 mg PO TID sevelamer carbonate 800 mg tablet 800 mg PO TID Rx Instructions: must administer with a meal/food lisinopril 5 mg tablet 5 mg PO DAILY nifedipine 90 mg tablet extended release 24hr 90 mg PO DAILY Qty: 90 3RF Primary Care Provider: Tom Conte Referrals: Tom Conte MD [Primary Care Provider] -
[2022-07-30 20:48] LABS: Absolute Neutrophil Count 6.2 X10^3/uL (2.0-7.7); Basophil# 0.03 X10^3/uL; Basophil% 0.4 % (0-1); Eosinophil# 0.05 X10^3/uL; Eosinophils% 0.6 % (0-5); Hematocrit 27.1 % (40-54); Hemoglobin 8.5 g/dL (13.0-16.5); Lymphocyte % 8.6 % (19-41); Mean Corp Hgb Conc 31.4 g/dL (32-36); Mean Corpuscular Hgb 26.5 pg (27.0-32.0); Mean Corpuscular Volume 84.4 fL (80-94); Mean Platelet Vol. 8.5 fl (6.2-12.0); Monocyte# 1.04 X10^3/uL; Monocyte% 12.8 % (0-10); NRBC Flagged by Analyzer 0 % (0-5); Neutrophil # 6.24 X10^3/uL (2.7-7.7); Neutrophil % 77.1 % (47-70); Platelet Count 318 K/mm3 (150-450); RBC Distribution Width CV 15.1 % (11.6-14.6); RBC Distribution Width SD 46.5 fl (35.1-43.9); Red Blood Count 3.21 M/mm3 (4.6-6.2); White Blood Count 8.1 K/mm3 (4.4-11.0)
--- NOTE | 2022-07-30 20:55 | RAD_ITS ---
INDICATION: Fever, pain at the fibular site EXAMINATION/TECHNIQUE: X-RAY - XR Chest 1 View COMPARISON: 06/29/2022 FINDINGS: LINES/DEVICES: Dual lead cardiac device in the left chest remains. Both leads appear intact and connected to the generator. Right lung base chest tube redemonstrated. LUNGS: Mild increase in right pleural effusion. Right lower lung consolidation/atelectasis redemonstrated. The left lung appears clear. MEDIASTINUM AND CARDIOVASCULAR STRUCTURES: Cardiac silhouette not enlarged. Central airways and mediastinal contour are unremarkable. RAD/Chest 1 View (Portable) IMPRESSION: Increased right pleural effusion. Normal appearance of the cardiac device and leads. Electronically Signed: Cristiano Ngo MD at 21:15 EST ,
[2022-07-30 21:00] VITALS: BP 145/78; PULSE 78; RESP 16; O2SAT 99
[2022-07-30 21:18] LABS: ALB/GLOB Ratio 0.5 RATIO (0.9-2.4); AST(SGOT) 28 U/L (15-37); Alanine Aminotransfer ALT/SGPT 20 U/L (16-61); Albumin, Serum 2.5 g/dL (3.2-5.0); Alkaline Phosphatase 95 U/L (45-117); Anion Gap 10 (5-15); BUN 55 mg/dL (7-18); BUN/Creat Ratio 5.3 RATIO (10-20); Calcium,Total 7.8 mg/dL (8.5-10.1); Chloride 93 mmol/L (98-107); EST Glomerular Filtration Rate 6 mL/min (>60); Est Glom Filt Rate - Afr Amer 7 mL/min (>60); Estimated Creatinine Clearance 8.56 ml/min; Globulin 5.1 g/dL (2.2-4.2); Glucose 99 mg/dL (74-106); Potassium 4.8 mmol/L (3.5-5.1); Protein, Total 7.6 g/dL (6.4-8.2); Sodium Level 132 mmol/L (136-145); Troponin-I HS 41 pg/mL (3.0-78.0)
[2022-07-30 22:00] VITALS: BP 140/47; PULSE 78; RESP 14; O2SAT 98
[2022-07-30 23:03] VITALS: BP 128/78; PULSE 78; RESP 16; O2SAT 100
[2022-07-30 23:05] VITALS: BP 130/78; PULSE 78; RESP 16; TEMP 36.6; O2SAT 99
== END 2022-07-30 23:06 | disposition home or self-care (01) ==
PROVIDERS: Emergency Provider Student in an Organized Health Care Education/Training Program; PCP Family Medicine; Visit Provider Student in an Organized Health Care Education/Training Program
DX: R50.9 Fever, unspecified (principal); I13.2 Hypertensive heart and chronic kidney disease with heart failure and with stage 5 chronic kidney disease, or end stage renal disease; Z99.2 Dependence on renal dialysis; J44.9 Chronic obstructive pulmonary disease, unspecified; I50.22 Chronic systolic (congestive) heart failure; N18.6 End stage renal disease; Z20.822 Contact with and (suspected) exposure to COVID-19
CPT/HCPCS: 71045; 80053; 84484; 85025; 87428; 93005; 99283; A4216

== ENCOUNTER → 2022-10-28 | Outpatient (CLI) | payer MEDICARE, MEDICAID, SELFPAY ==
--- NOTE | 2022-10-28 14:12 | ECHOD_ITS ---
Reason For Study: DCMP Procedure This was a 2D Doppler, Color Flow transthoracic echocardiogram. Exam performed in department. Left Ventricle Mildly dilated left ventricle. Moderately severe global left ventricular systolic dysfunction. The estimated ejection fraction is 30 %. Stage 2 diastolic dysfunction. There is moderate to severe global hypokinesis of the left ventricle. Right Ventricle Normal RV size. ICD or pacer leads identified within the right ventricle. Normal systolic function. Atria Normal left atrium. Normal right atrium. Mitral Valve Normal mitral valve. Tricuspid Valve Normal tricuspid valve. Mild (1+) tricuspid valve insufficiency. Aortic Valve Trisinus/trileaflet aortic valve. Mild focal aortic valve calcification. Pulmonic Valve Normal pulmonic valve. Great Vessels Normal aortic root. The pulmonary artery is normal size. Normal inferior vena cava. Pericardium/Pleural No pericardial effusion. MMode/2D Measurements & Calculations LVIDd: 6.5 cm IVSd: 0.94 cm Ao root diam: 2.7 cm LVIDs: 5.8 cm LVPWd: 1.1 cm RVDd: 2.6 cm FS: 11.4 % LAV(MOD-sp4): 45.8 ml LVAd ap4: 44.6 cm2 SV(MOD-sp4): 66.3 ml LVLd ap4: 9.3 cm EDV(MOD-sp4): 175.8 ml EDV(sp4-el): 182.2 ml LVAs ap4: 31.4 cm2 LVLs ap4: 7.3 cm ESV(MOD-sp4): 109.5 ml ESV(sp4-el): 114.5 ml EF(MOD-sp4): 37.7 % EF(sp4-el): 37.2 % SV(sp4-el): 67.7 ml LA A4 area: 17.4 cm2 LA dimension(2D): 4.3 cm RA A4 area: 20.4 cm2 TAPSE_phl: 2.7 cm Time Measurements MV dec time: 0.14 sec Doppler Measurements & Calculations MV E max kasi: 79.9 cm/sec Lat Peak E' Kasi: 7.7 cm/sec Med Peak E' Kasi: 5.3 cm/sec MV A max kasi: 76.4 cm/sec E/E' lat: 10.4 E/E' med: 15.0 MV E/A: 1.0 MV V2 max: 95.3 cm/sec Ao V2 max: 205.1 cm/sec MV max P.6 mmHg MV dec slope: 560.3 cm/sec2 Ao max P.8 mmHg MV V2 mean: 61.0 cm/sec Ao V2 mean: 140.3 cm/sec MV mean P.7 mmHg Ao mean P.3 mmHg MV V2 VTI: 28.8 cm Ao V2 VTI: 36.1 cm AV (velocity ratio): 0.85 LV V1 max: 168.3 cm/sec PA V2 max: 102.8 cm/sec TR max kasi: 273.8 cm/sec LV V1 max P.3 mmHg PA V2 mean: 74.4 cm/sec TR max P.0 mmHg LV V1 mean P.2 mmHg LV V1 mean: 126.6 cm/sec LV V1 VTI: 30.8 cm ECHO/Echo Complete Interpretation Summary Mildly dilated left ventricle. Moderately severe global left ventricular systolic dysfunction. There is moderate to severe global hypokinesis of the left ventricle. The estimated ejection fraction is 30 %. Stage 2 diastolic dysfunction. Compared to previous study, the left ventricular systolic function has worsened .. Ordering Physician: Tevin Khan Referring Physician: Tevin Khan Performed By: Anushka Acuña RCS
== END | disposition home or self-care (01) ==
LOC: CVS 14:08
PROVIDERS: PCP Family Medicine; Referring Provider Internal Medicine Cardiovascular Disease; Visit Provider Internal Medicine Cardiovascular Disease
DX: I42.8 Other cardiomyopathies (principal)
CPT/HCPCS: 93306

== ENCOUNTER → 2024-10-07 | Outpatient (CLI) | payer MEDICARE, MEDICAID, SELFPAY ==
--- NOTE | 2024-10-07 13:45 | ECHOD_ITS ---
Reason For Study Reason For Study: OTHER Procedure This was a 2D Doppler, Color Flow transthoracic echocardiogram. Exam performed in department. Left Ventricle Normal LV size. Mild concentric left ventricular hypertrophy. The left ventricular ejection fraction is 50 %. Stage I diastolic dysfunction with elevated left atrial filling pressures. Right Ventricle Normal right ventricle. ICD or pacer leads identified within the right ventricle. Atria The left atrium is mildly enlarged. Normal right atrium. ICD or pacer leads identified within the right atrium. Mitral Valve Mild diffuse mitral valve thickening. Moderate (2+) mitral valve insufficiency. Tricuspid Valve Mild tricuspid valve insufficiency. Normal pulmonary artery pressure. Aortic Valve Trisinus/trileaflet aortic valve. Mild diffuse aortic valve thickening. Pulmonic Valve The pulmonic valve is not well visualized. Great Vessels Normal sized aortic root. Pericardium/Pleural No pericardial effusion. MMode/2D Measurements & Calculations LVIDd: 4.8 cm IVSd: 1.4 cm LVOT diam: 2.1 cm LVIDs: 3.7 cm LVPWd: 1.5 cm LVOT area: 3.4 cm2 RVDd: 3.2 cm FS: 22.6 % Ao root diam: 3.0 cm LAV(MOD-bp): 54.4 ml LVAd ap4: 37.8 cm2 LAV(MOD-bp) Indexed: 27.6 ml/m2 LVLd ap4: 9.9 cm LAV(MOD-sp2): 58.4 ml EDV(MOD-sp4): 125.9 ml LAV(MOD-sp4): 49.8 ml EDV(sp4-el): 124.9 ml LVAs ap4: 27.1 cm2 LVLs ap4: 8.7 cm ESV(MOD-sp4): 73.9 ml ESV(sp4-el): 71.6 ml EF(MOD-sp4): 41.3 % EF(sp4-el): 42.7 % SV(MOD-sp4): 52.0 ml SV(sp4-el): 53.3 ml LA A4 area: 17.8 cm2 SI(MOD-sp4): 26.4 ml/m2 LA dimension(2D): 4.3 cm RA A4 area: 16.7 cm2 Time Measurements MV dec time: 0.14 sec Doppler Measurements & Calculations MV E max aksi: 112.5 cm/sec Lat Peak E' Kasi: 10.8 cm/sec Med Peak E' Kasi: 5.7 cm/sec MV A max kasi: 125.8 cm/sec E/E' lat: 10.4 E/E' med: 19.6 MV E/A: 0.89 MV V2 max: 121.1 cm/sec Ao V2 max: 231.4 cm/sec MV max P.9 mmHg MV dec slope: 815.1 cm/sec2 Ao max P.4 mmHg MV V2 mean: 98.7 cm/sec Ao V2 mean: 164.9 cm/sec MV mean P.1 mmHg Ao mean P.4 mmHg MV V2 VTI: 39.1 cm Ao V2 VTI: 50.2 cm AV (velocity ratio): 0.78 MVA(VTI): 3.4 cm2 YARI(I,D): 2.6 cm2 YARI(V,D): 2.6 cm2 LV V1 max: 178.4 cm/sec SV(LVOT): 132.2 ml PA V2 max: 114.3 cm/sec LV V1 max P.7 mmHg PA V2 mean: 82.9 cm/sec LV V1 mean P.0 mmHg LV V1 mean: 69.1 cm/sec LV V1 VTI: 39.2 cm ECHO/Echo Complete Interpretation Summary Mild concentric left ventricular hypertrophy. The left ventricular ejection fraction is 50 %. Stage I diastolic dysfunction with elevated left atrial filling pressures. The left atrium is mildly enlarged. Moderate (2+) mitral valve insufficiency. Mild tricuspid valve insufficiency. Mild diffuse aortic valve thickening. Ordering Physician: Tevin Khan Referring Physician: Tevin Khan Performed By: Anushka Acuña RCS
== END | disposition home or self-care (01) ==
LOC: CVS 13:40
PROVIDERS: Referring Provider Internal Medicine Cardiovascular Disease; Visit Provider Internal Medicine Cardiovascular Disease
DX: I42.8 Other cardiomyopathies (principal); Z95.810 Presence of automatic (implantable) cardiac defibrillator
CPT/HCPCS: 93306

== ENCOUNTER 2024-12-07 21:22 | Emergency (ER) | payer MEDICARE, MEDICAID, SELFPAY ==
[2024-12-07 21:22] VITALS: BP 166/89; PULSE 86; RESP 17; TEMP 36; O2SAT 98
[2024-12-07 21:39] VITALS: BMI 23.6
[2024-12-07] MEDS: 0.9% Normal Saline (1000mL) 1,000 ML 250 ML IV (22:03)
[2024-12-07] MEDS: Morphine 2 MG/ML Syringe IV (22:04)
[2024-12-07] MEDS: DiphenhydrAMINE 50 MG/ML Syringe IV (22:04)
[2024-12-07] MEDS: Methylprednisolone Sod Succ 40 MG/ML VIAL IV (22:06)
[2024-12-07 22:15] LABS: Absolute Lymphocyte Count 1.05 X10^3/uL (0.83-4.51); Absolute Neutrophil Count 3.4 X10^3/uL (2.0-7.7); Basophil# 0.05 X10^3/uL; Eosinophil# 0.15 X10^3/uL; Eosinophils% 2.9 % (0-5); Hematocrit 22.4 % (40-54); Hemoglobin 7.4 g/dL (13.0-16.5); Lymphocyte # 1.05 X10^3/ul (0.83-4.51); Lymphocyte % 20.3 % (19-41); Mean Corpuscular Hgb 27.9 pg (27.0-32.0); Mean Corpuscular Volume 84.5 fL (80-94); Mean Platelet Vol. 10.3 fl (6.2-12.0); Monocyte# 0.51 X10^3/uL; Monocyte% 9.8 % (0-10); NRBC Flagged by Analyzer 0 % (0-5); Neutrophil % 65.6 % (47-70); Platelet Count 171 K/mm3 (150-450); RBC Distribution Width CV 13.3 % (11.6-14.6); RBC Distribution Width SD 40.7 fl (35.1-43.9); Red Blood Count 2.65 M/mm3 (4.6-6.2); White Blood Count 5.2 K/mm3 (4.4-11.0)
--- NOTE | 2024-12-07 22:25 | CT_ITS ---
PROCEDURE: ABDOMEN/PELVIS W IV CONT ONLY 12/07/2024 REASON FOR EXAM: RIGHT LOWER QUADRANT ABDOMINAL PAIN TECHNIQUE: ABDOMEN/PELVIS W IV CONT ONLY. Coronal and Sagittal reconstruction series were provided. ORAL CONTRAST TYPE: None. AMOUNT: mL CONTRAST: Isovue 370 VOLUME: 81 mL One or more dose reduction techniques were used (e.g., Automated exposure control, adjustment of the mA and/or kV according to patient size, use of iterative reconstruction technique. RADIATION DOSE SUMMARY: CTDlvol: 9.97+ 11.0 mGy DLP: 588.47 mGycm COMPARISON: None. FINDINGS: Right lower lobe scarring. Right pleural thickening and loculated pleural effusion with peripheral calcifications. Cardiomegaly. The peripheral soft tissues are unremarkable. Degenerative changes of the spine. Atherosclerosis. Normal caliber abdominal aorta. The liver is enlarged with normal attenuation. Surgically absent gallbladder. The pancreas, and adrenals are unremarkable. The right kidney is not visualized. Severe atrophy of the left kidney. The urinary bladder is decompressed. Loops of small bowel in the right lower quadrant measuring up to 3.0 cm. The appendix is not discretely visualized. Within the bilateral pelvis there is a right 2.0 x 3.9 cm and left 3.8 x 2.2 cm partially calcified lesions. CT/Abdomen/Pelvis W IV Cont ONLY IMPRESSION: Focally dilated loops of small bowel possibly representing developing/low-grade obstruction. Right lower lobe pleural thickening with a loculated effusion with peripheral c alcifications and right lower lobe scarring. Consider prior asbestos exposure. Pelvic calcified lesions which may represent lymph nodes. Reading Location: [place] [id number]
--- NOTE | 2024-12-07 22:44 | EX.ED.DYSGE1 ---
HPI <Dr. Blaise Marinelli MD - Last Filed: 12/08/24 13:46> History of Present Illness Chief Complaint: Abd Pain Detail of Chief Complaint: Right lower quadrant abdominal pain Informant: patient Onset/Context/Timing Onset: Days (Onset 3 to 4 days ago) Context: Gradual Onset Timing: Continuous Quality: Decreased appetite and pain Location: Right lower quadrant Current Severity: Mild Maximum Severity: Moderate Worsened by: Palpation Relieved by: Nothing Associated Symptoms Associated Symptoms: Decreased appetite Narrative Narrative: Patient is a 49-year-old male with end-stage renal disease who had a failed left cadaveric renal transplant and a failed right cadaveric renal transplant who presents with right lower quadrant Jeff pain. He is presently on no immunosuppressive meds. He does he hemodialysis at home 5 days/week. He denies fever, chills night sweats. He does endorse nausea and decreased appetite. He makes no urine. There is no history of diverticulosis or diverticulitis. Prior similar symptoms: No Recent Illness/Hospitalization: No PFSH <Dr. Blaise Marinelli MD - Last Filed: 12/08/24 13:46> PFSH Medical History Inferior vena caval stenosis Steel syndrome Anemia of chronic disease Chest pain History of implantable cardiac defibrillator (ICD) (02/03/15) Chronic systolic (congestive) heart failure Tobacco abuse disorder Systolic murmur Non-ischemic cardiomyopathy GERD (gastroesophageal reflux disease) Anxiety and depression Essential hypertension Problem with dialysis access Non-compliance with renal dialysis Non compliance with medical treatment Non compliance w medication regimen Hyperkalemia COPD (chronic obstructive pulmonary disease) Hyperphosphatemia Anemia due to chronic renal failure treated with erythropoietin, stage 5 ESRD (end stage renal disease) on dialysis Renal transplant failure and rejection Home Medications ?Medication ?Instructions ?Recorded ?Last Taken ?Type acetaminophen 325 mg tablet 650 mg PO Q4H PRN Pain 07/07/19 Unknown History sevelamer carbonate 800 mg tablet 800 mg PO TID 08/21/21 Unknown History aspirin 81 mg tablet,delayed 81 mg PO DAILY 02/04/24 Unknown History release (Adult Low Dose Aspirin) atorvastatin 40 mg tablet (Lipitor) 40 mg PO DAILY 02/04/24 Unknown History hydralazine 100 mg tablet 100 mg PO TID 04/07/24 Unknown History carvedilol 6.25 mg tablet 6.25 mg PO BID #180 tabs 09/08/24 Unknown Rx isosorbide mononitrate 60 mg 60 mg PO QAM #30 tabs 10/14/24 Unknown Rx tablet,extended release 24 hr albuterol sulfate 90 mcg/actuation 2 puff inhalation Q4H PRN PRN 12/08/24 Unknown History aerosol inhaler wheezing carvedilol 3.125 mg tablet 3.125 mg PO BID 12/08/24 Unknown History isosorbide mononitrate 30 mg 30 mg PO BID 12/08/24 Unknown History tablet,extended release 24 hr nicotine 21 mg/24 hr daily 1 patch topical DAILY 12/08/24 Unknown History transdermal patch Allergy/AdvReac Type Severity Reaction Status Date / Time Iodinated Contrast Media Allergy Fever and Verified 09/07/24 14:59 (CONTRASTS) skin rash Penicillins Allergy Anaphylaxis Verified 09/07/24 14:59 cyclobenzaprine (From AdvReac dizzy, Verified 09/07/24 14:59 Flexeril) faints tramadol (From Ultram) AdvReac Rash Verified 09/07/24 14:59 Family History Father Diabetes Heart disease Hypertension Presence of implantable cardioverter-defibrillator (ICD) Brother Heart disease Hypertension Diabetes Presence of implantable cardioverter-defibrillator (ICD) LVAD (left ventricular assist device) present Surgical History Hx of cardiac catheterization (~09/26/22) S/P internal cardiac defibrillator procedure Presence of surgically created primary arteriovenous shunt for hemodialysis Hx of cholecystectomy Hx of kidney transplant Hx of partial thyroidectomy (12/07/99) Social History Smoking Status: Light Smoker (<10/day) second hand exposure: Yes quit status: considering quitting alcohol intake: never substance use type: does not use caffeine: Yes Type: carbonated beverages Number of servings: 3 what type of physical activity do you participate in: walking frequency: daily seatbelt use: always ROS <Dr. Blaise Marinelli MD - Last Filed: 12/08/24 13:46> ROS ED Constitutional Constitutional ED: Denies chills, fever(s), subjective or sweats Cardiovascular Cardiovascular: Denies chest pain or palpitations Respiratory/Chest Respiratory/Chest: Denies cough, dyspnea or dyspnea on exertion Gastrointestinal Gastrointestinal: Reports nausea; Denies abdominal pain, constipation, diarrhea, melena or vomiting Genitourinary Genitourinary ED: Denies dysuria, hematuria or urinary frequency Musculoskeletal Musculoskeletal: Denies arthralgias, back pain or myalgias Integumentary Denies rash Hematologic/Lymphatic Hematologic/Lymphatic: Reports systems reviewed and no addt'l complaints, except as documented EXAM <Dr. Blaise Marinelli MD - Last Filed: 12/08/24 13:46> Physical Exam Const Vital Signs: 12/07/24 21:22 12/07/24 23:22 12/08/24 01:00 Temperature 96.8 F L Temperature Source Temporal Pulse Rate 86 84 83 Respiratory Rate 17 16 16 Blood Pressure 166/89 H 184/96 H 173/97 H Blood Pressure Mean 114 125 122 Pulse Ox 98 94 94 Oxygen Delivery Method Room Air Room Air Room Air 12/08/24 03:00 12/08/24 03:15 Temperature 97.6 F L Temperature Source Pulse Rate 79 83 Respiratory Rate 16 16 Blood Pressure 169/98 H 175/95 H Blood Pressure Mean 121 121 Pulse Ox 98 96 Oxygen Delivery Method Room Air Positive well nourished and well developed General Appearance ED: well developed and NAD; Negative for cyanotic or diaphoretic HEENT Reports dry mucous membranes HEENT Narrative: Head atraumatic and normocephalic. Ears normal. Nares patent. Mouth ED: Yes dry mucous membranes Mouth: dry mucous membranes Eyes PERRL and EOMs intact bilaterally General Eye ED: Yes pale conjunctiva; Negative for scleral icterus Neck no lymphadenopathy, supple and no JVD Resp normal respiratory effort and clear to auscultation bilaterally Cardio regular rate, regular rhythm, S1 normal heart sound, S2 normal heart sound and no murmurs GI no masses; Negative for normal to inspection, nondistended, normoactive bowel sounds, non-tender, non-distended or hepatosplenomegaly GI Narrative: Multiple surgical scars noted. Inspection: abdominal distention Auscultation: hypoactive bowel sounds Palpation: soft and tender RLQ and McBurney's point; Negative for guarding, splenomegaly, mass or rebound tenderness present Back/Spine no CVA tenderness Extremity normal to inspection Neuro oriented x3, CN's II-XII intact bilaterally and no sensory deficits noted Sensorium / Orientation: alert Psych mental status grossly normal Skin no rashes or lesions noted, no wounds and skin turgor normal <Dr. Jenn Cullen DO - Last Filed: 12/08/24 02:25> Physical Exam Const Vital Signs: 12/07/24 21:22 12/07/24 23:22 12/08/24 01:00 Temperature 96.8 F L Temperature Source Temporal Pulse Rate 86 84 83 Respiratory Rate 17 16 16 Blood Pressure 166/89 H 184/96 H 173/97 H Blood Pressure Mean 114 125 122 Pulse Ox 98 94 94 Oxygen Delivery Method Room Air Room Air Room Air 12/08/24 03:00 12/08/24 03:15 Temperature 97.6 F L Temperature Source Pulse Rate 79 83 Respiratory Rate 16 16 Blood Pressure 169/98 H 175/95 H Blood Pressure Mean 121 121 Pulse Ox 98 96 Oxygen Delivery Method Room Air MDM <Dr. Blaise Marinelli MD - Last Filed: 12/08/24 13:46> [facility] MDM Narrative Medical decision making narrative: Abdominal pain unknown etiology, appendicitis, mesenteric adenitis, right-sided diverticulitis, inflammatory bowel disorder which would be unlikely since he denies diarrhea or mucus in his stool and no prior history. Patient was pretreated with Solu-Cortef and diphenhydramine since he has rash to contrast. Lab Data Labs: Laboratory Results - last 24 hr 12/07/24 21:45 WBC 5.2 RBC 2.65 L Hgb 7.4 L Hct 22.4 L MCV 84.5 MCH 27.9 MCHC 33.0 RDW Std Deviation 40.7 RDW Coeff of Good 13.3 Plt Count 171 MPV 10.3 Immature Gran % (Auto) 0.400 Neut % (Auto) 65.6 Lymph % (Auto) 20.3 [place] % (Auto) 9.8 Eos % (Auto) 2.9 Baso % (Auto) 1.0 Absolute Neuts (auto) 3.4 Absolute Lymphs (auto) 1.05 Nucleated RBC % 0 Sodium 136 Potassium 5.0 Chloride 92 L Carbon Dioxide 28.7 Anion Gap 15 BUN 51 H Creatinine 12.60 H* Estim Creat Clear Calc 7.39 L* Est GFR (MDRD) Non-Af 4 L BUN/Creatinine Ratio 4.0 L Glucose 115 H Calcium 8.3 Radiography Diagnostic Testing: Clinical Impression(s) from Imaging Studies Abdomen/Pelvis CT 12/07/24 22:25 IMPRESSION: Focally dilated loops of small bowel possibly representing developing/low-grade obstruction. Right lower lobe pleural thickening with a loculated effusion with peripheral calcifications and right lower lobe scarring. Consider prior asbestos exposure. Pelvic calcified lesions which may represent lymph nodes. Reading Location: [place] [id number] Treatment and Re-Evaluation :: Patient was reassessed at 2333. He still has pain in the right lower quadrant. His pain has improved after IV opiate analgesia. Case was turned over to Dr. Ruperto Cullen to make disposition once CAT scan has been interpreted by radiologist. <Dr. Jenn Cullen, DO - Last Filed: 12/08/24 02:25> [facility] Lab Data Labs: Laboratory Results - last 24 hr 12/07/24 21:45 WBC 5.2 RBC 2.65 L Hgb 7.4 L Hct 22.4 L MCV 84.5 MCH 27.9 MCHC 33.0 RDW Std Deviation 40.7 RDW Coeff of Good 13.3 Plt Count 171 MPV 10.3 Immature Gran % (Auto) 0.400 Neut % (Auto) 65.6 Lymph % (Auto) 20.3 [place] % (Auto) 9.8 Eos % (Auto) 2.9 Baso % (Auto) 1.0 Absolute Neuts (auto) 3.4 Absolute Lymphs (auto) 1.05 Nucleated RBC % 0 Sodium 136 Potassium 5.0 Chloride 92 L Carbon Dioxide 28.7 Anion Gap 15 BUN 51 H Creatinine 12.60 H* Estim Creat Clear Calc 7.39 L* Est GFR (MDRD) Non-Af 4 L BUN/Creatinine Ratio 4.0 L Glucose 115 H Calcium 8.3 Radiography Diagnostic Testing: Clinical Impression(s) from Imaging Studies Abdomen/Pelvis CT 12/07/24 22:25 IMPRESSION: Focally dilated loops of small bowel possibly representing developing/low-grade obstruction. Right lower lobe pleural thickening with a loculated effusion with peripheral calcifications and right lower lobe scarring. Consider prior asbestos exposure. Pelvic calcified lesions which may represent lymph nodes. Reading Location: [id number] Treatment and Re-Evaluation :: Patient was reassessed at 2333. He still has pain in the right lower quadrant. His pain has improved after IV opiate analgesia. Case was turned over to Dr. Jenn Cullen to make disposition once CAT scan has been interpreted by radiologist. Patient signed out to me by Dr. Marinelli pending CT results. Patient had recurrent pain is given additional 2 mg IV morphine. No further vomiting at this time. CT shows focally dilated loops of small bowel possibly representing developing or low-grade obstruction. Case discussed with general surgery, Dr. Brannon, who reviewed the images. He agrees that probably is a developing obstruction but is concerned this is right in the area of one of his prior renal transplant and feels that the patient be better suited at a facility with transplant medicine backup. I spoke with the patient who is agreeable to transport. His transplant previously was at [facility] however he is in the process of trying to get established over at and would like to go to . I spoke to [facility] at Dr. Foy who agreed with transfer and recommended ER to ER transfer. I then spoke with Dr. Orellana who accepted the patient. Will arrange for transportation. Patient remains hemodynamically stable in the emergency room. Blood pressure is elevated however patient does have history of hypertension. CT of the abdomen pelvis also picked up right lower lobe pleural thickening with a loculated effusion and peripheral calcifications. This is more of a chronic finding and not associate with his clinical presentation today my opinion. Discharge Plan Triage Chief Complaint: Abd Pain ED Provider: Blaise Marinelli Dx/Rx/DC Orders Clinical Impression: Abdominal pain, acute, right lower quadrant, Essential hypertension, Non-ischemic cardiomyopathy, Tobacco abuse disorder, S/P internal cardiac defibrillator procedure, Anemia of chronic disease, Coronary artery disease, End-stage renal disease on hemodialysis, Partial small bowel obstruction Prescriptions: No Action acetaminophen 325 mg tablet 650 mg PO Q4H PRN (Reason: Pain) sevelamer carbonate 800 mg tablet 800 mg PO TID Rx Instructions: must administer with a meal/food atorvastatin [Lipitor] 40 mg tablet 40 mg PO DAILY aspirin [Adult Low Dose Aspirin] 81 mg tablet,delayed release (DR/EC) 81 mg PO DAILY carvedilol 6.25 mg tablet 6.25 mg PO BID Qty: 180 3RF Rx Instructions: must administer with a meal/food isosorbide mononitrate 30 mg tablet extended release 24 hr 30 mg PO BID carvedilol 3.125 mg tablet 3.125 mg PO BID nicotine 21 mg/24 hr patch 24 hour 1 patch topical DAILY albuterol sulfate 90 mcg/actuation HFA aerosol inhaler 2 puff inhalation Q4H PRN PRN (Reason: wheezing) hydralazine 100 mg tablet 100 mg PO TID isosorbide mononitrate 60 mg tablet extended release 24 hr 60 mg PO QAM Qty: 30 11RF Primary Care Provider: Truman Alston Referrals: Truman Alston DO [Primary Care Provider] - Print Language: Setswana Disposition Disposition: Acute Care Hospital Discharge Location: Main Discharge Date/Time: 12/08/24 04:17
[2024-12-07 22:49] LABS: Anion Gap 15 (5-15); BUN 51 mg/dL (4-19); Calcium,Total 8.3 mg/dL (7.6-11.0); Carbon Dioxide 28.7 mmol/L (21.0-32.0); Chloride 92 mmol/L (98-108); EST Glomerular Filtration Rate 4 (>60); Estimated Creatinine Clearance 7.39 ml/min (50-250); Glucose 115 mg/dL (70-99); Sodium Level 136 mmol/L (133-145)
[2024-12-07 23:22] VITALS: BP 184/96; PULSE 84; RESP 16; O2SAT 94
[2024-12-08 01:00] VITALS: BP 173/97; PULSE 83; RESP 16; O2SAT 94
[2024-12-08] MEDS: Morphine 2 MG/ML Syringe IV (01:09)
[2024-12-08 03:00] VITALS: BP 169/98; PULSE 79; RESP 16; O2SAT 98
[2024-12-08 03:15] VITALS: BP 175/95; PULSE 83; RESP 16; TEMP 36.4; O2SAT 96
== END 2024-12-08 04:17 | disposition short-term general hospital (02) ==
LOC: ED 22:15
PROVIDERS: Emergency Provider Emergency Medicine; Visit Provider Emergency Medicine
DX: R10.31 Right lower quadrant pain (principal); I13.2 Hypertensive heart and chronic kidney disease with heart failure and with stage 5 chronic kidney disease, or end stage renal disease; N18.6 End stage renal disease; I50.22 Chronic systolic (congestive) heart failure; K56.600 Partial intestinal obstruction, unspecified as to cause; J44.9 Chronic obstructive pulmonary disease, unspecified; I42.8 Other cardiomyopathies; R21 Rash and other nonspecific skin eruption; F17.200 Nicotine dependence, unspecified, uncomplicated; Z99.2 Dependence on renal dialysis; I25.10 Atherosclerotic heart disease of native coronary artery without angina pectoris; D63.1 Anemia in chronic kidney disease; T86.12 Kidney transplant failure; K21.9 Gastro-esophageal reflux disease without esophagitis; Z79.899 Other long term (current) drug therapy
CPT/HCPCS: 74177; 80048; 85025; 96361; 96374; 96375; 96376; 99285; Q9967; A4216

== ENCOUNTER 2025-03-15 21:20 | Emergency (ER) | payer MEDICARE, MEDICAID, SELFPAY ==
[2025-03-15 21:21] VITALS: BP 165/97; PULSE 95; RESP 18; TEMP 36.4; O2SAT 97; BMI 22.4
--- OUTSIDE RECORDS SUMMARY | 2025-03-15 21:57 | XMS RPT_ITS | CCD ---
Author Organization [facility] Care Team Providers Care Sugar Trucker Name Role Phone Tom Conte Unavailable Unavailable None, No PCP Unavailable Unavailable Update Needed Unavailable Unavailable Anabela Jurado Unavailable Unavailable Tom Conte Unavailable Unavailable Napoleon Wu Unavailable Unavailable Tom Conte Unavailable BOGDAN QUEZADA Attending Unavailable ROBERT GARCIA Referring Unavailable TOM CONTE Primary Care Unavailable TOM CONTE MD Primary Care Physician Tom Conte MD Primary Care Provider Robert Garcia MD Unavailable TOM CONTE MD Primary Care Physician Dr. Tom Conte Primary Care Provider Dr. Tom Conte Referring Provider DEBBIE Olivera Attending Provider DEBBIE Olivera Referring Provider DEBBIE Olivera Other Provider Dr. Pablo Rogers Attending Provider Robert Garcia MD Unavailable Dr. Tom Conte Primary Care Provider Dr. Tom Conte Referring Provider DEBBIE Olivera Attending Provider Dr. Gerardo Bradford Admit Provider Dr. Gerardo Bradford Attending Provider Dr. Gerardo Bradford Other Provider Tom Conte MD Primary Care Provider Latha MCCALL, Dayanand Unavailable Latha MCCALL, Dayanand Unavailable Tom Conte MD Primary Care Provider Tom Conte MD Primary Care Provider Latha MCCALL, Dayanand Unavailable [phone] Tom Conte Primary Care Provider Dr. Tom Conte Referring Provider Dr. Tevin Khan Attending Provider AJ HUERTA Attending Unavailable TOM CONTE Primary Care Unavailable TOM CONTE Referring Unavailable FERNANDO FITZPATRICK Admitting Unavailable FERNANDO FITZPATRICK Attending Unavailable TOM CONTE Primary Care Unavailable TOM CONTE Primary Care Unavailable GHANDOUR, ABED AL HAMID Admitting Unavaila ble GHANDOUR, ABED AL HAMID Attending Unavaila ble ZOILA DANIA Consulting Unavailable CHAYA LEO Referring Unavailable TOM CONTE Primary Care Unavailable FERNANDO REDDY Attending Unavailable RHIANNA WILKINS Admitting Unavailable THOR OLIVO Admitting Unavailable MANJIT FIELD Referring Unavailable THOR OLIVO Attending Unavailable TOM CONTE Primary Care Unavailable TOM CONTE Primary Care Unavailable OLGA LIDIA SHERIDAN Admitting Unavailable OLGA LIDIA SHERIDAN Attending Unavailable CELSO REED Admitting Unavailab CELSO Mir Attending Unavailab le TOM CONTE Primary Care Unavailable TOM CONTE Primary Care Unavailable АЛЕКСАНДРANDOUR, ABED AL HAMID Admitting Unavaila ble GHANDOUR, ABED AL HAMID Attending Unavaila MANJIT Powers Referring Unavailable TOM CONTE Primary Care Unavailable GLORIA MALIK MD Admitting Unava ilable KING, GLORIA MCCALL Attending Unava ilable GLORIA MALIK MD Primary Care Unava ilable TOM CONTE MD Consulting Unavailable PROVIDER, UNKNOWN Consulting Unavailable ALLAN, FERNANDO Admitting Unavailable ALLAN, FERNANDO Attending Unavailable JERRELL, FERNANDO Primary Care Unavailable TOM CONTE MD Consulting Unavailable PROVIDER, UNKNOWN Consulting Unavailable JULIAN MCLEAN Admitting Unavailable LEMJULIAN SUAREZ Attending Unavailable JULIAN MCLEAN Primary Care Unavailable TOM CONTE MD Consulting Unavailable TOM CONTE MD Referring Unavailable PROVIDER, UNKNOWN Consulting Unavailable CHRISTOPHER BAEZA DO Admitting Unavailable CHRISTOPHER BAEZA DO Attending Unavailable CHRISTOPHER BAEZA DO Primary Care Unavailable TOM CONTE MD Consulting Unavailable TOM CONTE MD Referring Unavailable PROVIDER, UNKNOWN Consulting Unavailable SONU, SERENA E Admitting Unavailable SONUSERENA Attending Unavailable SONU, SERENA E Primary Care Unavailable TOM CONTE MD Consulting Unavailable PROVIDER, UNKNOWN Consulting Unavailable SONU, SERENA E Admitting Unavailable SONU SERENA E Attending Unavailable SONU, SERENA E Primary Care Unavailable TOM CONTE MD Consulting Unavailable TOM CONTE MD Referring Unavailable PROVIDER, UNKNOWN Consulting Unavailable AHRAPHAEL NOWAK Admitting Unavailable RAPHAEL SHORT Attending Unavailable RAPHAEL SHORT Primary Care Unavailable TOM CONTE MD Consulting Unavailable PROVIDER, UNKNOWN Consulting Unavailable Dr. Tom Conte Primary Care Provider Dr. Tom Conte Referring Provider Dr. Tevin Khan Attending Provider Janie Mcclure Attending Provider Unavailable Dr. Pablo Rogers Attending Provider [phone] MONIE ALSTON DO Attending Unavailable MONIE ALSTON DO Primary Care Unavailable DR ERNST MACIEL MD Attending UnavailTOM Webb MD Primary Care Unavailable CAROLE LEDBETTER DO Attending Unavailable TOM CONTE MD Primary Care Unavailable DR HARVEY HARVEY MD Attending Unavailable TOM CONTE MD Primary Care Unavailable ELISEO STORY MD Attending Unavailable INÉS MCCALL, TOM Vega Primary Care Unavailable VINCENZO BARBER MD Attending Unavailable TOM CONTE MD Primary Care Unavailable INÉS MCCALL, TOM Vega Primary Care Unavailable DR ALIZA BLUNT MD Attending Unavailable GERALDINE AVLIA DO Admitting Unavailable TOM CONTE MD Primary Care Unavailable AJ BRYANT MD Consulting Unavailable JUAN FRANCISCO MCCALL, HUGO Stanley Attending Unavailabl cecilio GARCIA MD, ROBERT Consulting Unavailable YOLANDA MCCALL, YARA Consulting U deysi BARBER MD, VINCENZO Consulting Unavailable ELISEO STORY MD Attending Unavailable INÉS MCCALL, TOM Vega Primary Care Unavailable RAMIRO MARTIN MD Attending Unavailable INÉS MCCALL, TOM Vega Primary Care Unavailable VERONICA MCCALL, RAMIRO Ward Attending Unavailable INÉS MCCALL, TOM Vega Primary Care Unavailable INÉS MCCALL, TOM Vega Primary Care Unavailable JEFF SOUZA DO Attending Unavailable Latha MCCALL, Irmand Unavailable Monie Alston DO Primary Care Provider Monie Alston DO Primary Care Provider Inés MCCALL, Tom Vega Primary Care Provider Latha MCCALL, Robert Unavailable MONIE ALSTON DO Primary Care Physician Dr. Monie Alston DO Primary Care Provider [phone] Dr. Pablo Rogers MD Attending Provider Dr. Pablo Rogers MD Referring Provider Dr. Monie Alston DO Referring Provider Dr. Tevin Khan MD Attending Provider Dr. Tevin Khan MD Referring Provider MONIE ALSTON Primary Care Unavailable CHRISTAL LIMA Referring Unavailable MONIE ALSTON Primary Care Unavailable MONIE ALSTON Primary Care Unavailable MONIE ALSTON Primary Care Unavailable MONIE ALSTON Primary Care Unavailable CHAYA BRIDGES Attending Unavailable MONIE ALSTON Primary Care Unavailable COLUMBA KEITH Attending Unavailable Dr. Blaise Marinelli MD Emergency Provider [phone] Inés MCCALL, Tom Barksdale Primary Care Provider Teresa Torres Unavailable Unavailable BOGDAN PONCE MD Admitting Unavailable NAKIA BUSTOS MD, LEIGHA Consulting Un available CHANDANA NEWMAN MD Attending Unavailable MONIE ALSTON DO Primary Care Unavailable NORMA MARIE MD, DR NICHOLAS GAFFNEY Consulting Unavaila lisa OWENS MD, CHAYA Ny Consulting Unavailable VIOLET MCCALL, KD Consulting Unavailable VIOLET MCCALL, KD Attending Unavailable CARMEN HOUSE DO Consulting Unavailable KALYANI PERFORMANCE INSTRUCTOR-MANUFACTURING COORDINATOR, UNA Duff Referring Unavail able ALSTON DO, MONIE E Primary Care Unavailable CARL GRAVES PA-C Attending Unavailable ALSTON DO, MONIE E Primary Care Unavailable ALSTON DO, MONIE E Primary Care Unavailable KATYA PERFORMANCE INSTRUCTOR-MANUFACTURING COORDINATOR, NAIDA Attending Unavailab ralf ALCAZAR MD, KAYLAH Attending Unavailable YARA GUERRERO MD Admitting U YARA Bradley MD Consulting U navailable ALSTON DO, MONIE E Primary Care Unavailable ROMAN MCCALL, CHAYA Ny Consulting Unavailable DESI MCCALL, SILVER Vega Consulting Unavaila lisa KOTHARI MD, JALEN Vgea Consulting Unavailable Bill, Tevin Referring Unavailable Alston, Monie Primary Care Unavailable Bill, Tevin Attending Unavailable Alston, Monie Primary Care Unavailable Blaise Marinelli Attending Unavailable Ken, Pablo Attending Unavailable Ken, Pablo Referring Unavailable Alston, Monie Primary Care Unavailable Alston, Monie Primary Care Unavailable Ken, Pablo Referring Unavailable Ken, [place] Attending Unavailable Alston, Monie Primary Care Unavailable Alston, Monie Referring Unavailable Bill, Tevin Attending Unavailable Alston, Monie Referring Unavailable Alston, Monie Primary Care Unavailable Bill, Tevin Attending Unavailable Alston, Monie Primary Care Unavailable Bill, Tevin Attending Unavailable Ken, [place] Referring Unavailable Alston, Monie Primary Care Unavailable Ken, [place] Attending Unavailable Joan Olivera Attending Unavail able Alston, Monie Primary Care Unavailable Alston, Monie Referring Unavailable ALSTON DO, MONIE E Primary Care Unavailable ROBERT GARCIA MD Attending Unavailable ALSTON DO, MONIE E Primary Care Unavailable ALSTON DO, MONIE E Attending Unavailable ALSTON DO, MONIE E Primary Care Unavailable ALSTON DO, MONIE E Attending Unavailable ALSTON DO, MONIE E Primary Care Unavailable HÉCTOR JEONG DO Attending Unavailable YOLANDA MCCALL, YARA Consulting U deysi PONCE MD, BOGDAN Al Consulting Unavailable KRIS MCCALL, DR ALBA Attending Unavailabl e ALSTON DO, MONIE E Primary Care Unavailable ALSTON DO, MONIE E Primary Care Unavailable SILVIA PAVON MD Attending Unavailable ANGEL MANZANO, MONIE Barron Primary Care Unavailable ODILIA DAVILA DO Attending Unavailable SCANNING, GENERIC PROVIDER Referring Unava ilable TOM CONTE Primary Care Unavailabl e JESUS CASTREJON Attending Unavailable EVARISTO DONNELLY Admitting Unavailabl e JESUS CASTREJON Referring Unavailable TOM CONTE [facility] Care Unavailabl e TOM CONTE [facility] Care Unavailabl e TOM CONTE [place] Primary Care Unavailabl e LOIDA PEREA Attending Unavailable TONYA BELL Attending Unavailab le TOM CONTE Primary Care Unavailabl e Allergies Allergy Classification Reported Allergen(s) Allergy Type Date of Onset Reaction(s) Facility [facility] (3 sources) Contrast media Substance Allergy [facility] Work Phone: Penicillins (antibiotic) (3 sources) Penicillins; Translations: [Penicillins] Drug Allergy [facility] Work Phone: (14 sources) Penicillins; Translations: [Penicillins] drug allergy 05-16-[address] [facility] Other [place] [facility] (1 source) allergy to substance [facility] Work Phone: (8 sources) Contrast media Allergy to substance (finding) [facility] Work Phone: (19 sources) Contrast media; Translations: [iodinated radiocontrast agents] Drug allergy Eruption of skin (disorder), Fever (finding) [facility] (20 sources) hydrALAZINE; Translations: [hydralazine] Drug Allergy 02-06-20 17 Unknown [facility] (20 sources) NIFEdipine; Translations: [nifedipine] Drug Allergy 05-28-20 16 Swelling [facility] (20 sources) Penicillin; Translations: [penicillin] Drug Allergy Anaphylaxis (disorder) [facility] (20 sources) traMADol; Translations: [tramadol] Drug Allergy 02-06-20 17 Unknown, Eruption of skin (disorder) [facility] (20 sources) Contrast media; Translations: [DYE] Drug Intolerance 07-04-19 16 Other: See Comments [facility] Work Phone: (20 sources) cyclobenzaprine; Translations: [CYCLOBENZAPRINE] Drug Allergy 02-06-20 17 Unknown, Eruption of skin (disorder) [facility] Work Phone: (4 sources) Penicillins Propensity to adverse reactions to drug 05-16-[address] [facility] Work Phone: (20 sources) Iodinated [facility]; Translations: [IODINATED CONTRAST MEDIA] Allergy to substance 07-13-19 20 Rash, Fever [facility] (20 sources) Penicillins Propensity to adverse reactions to drug 05-16-[address] [facility] Work Phone: (6 sources) Penicillins Allergy to substance 06-29-19 Anaphylaxis [facility] (1 source) cyclobenzaprine Drug Allergy [facility] Repository (1 source) hydrALAZINE Drug Allergy [facility] Repository (1 source) NIFEdipine Drug Allergy [facility] Rep[facility] (1 source) traMADol Drug Allergy [facility] Rep[facility] (1 source) CONTRAST ALLERGY PREMED PACK Drug allergy (disorder) [facility] Rep[facility] (1 source) Penicillins Propensity to adverse reactions to drug 05-16-[address] [facility] (4 sources) Penicillin G; Translations: [PENICILLIN G] Drug Allergy 12-09-19 [facility] Work Phone: (6 sources) fentaNYL; Translations: [fentanyl] Drug Allergy Feeling agitated (finding) [facility] (6 sources) Propranolol; Translations: [propranolol] Drug Allergy Feeling agitated (finding) [facility] (1 source) cyclobenzaprine Drug Allergy 09-08-19 [facility] (1 source) Penicillins Drug allergy (disorder) 09-08-19 [facility] (1 source) traMADol Drug Allergy 09-08-19 [facility] Medications Current Medications Medication Drug Class(es) Dates Sig (Normalized) Sig (Original) acetaminophen 325 mg oral tablet (20 sources) Start: 12-08-2024 take 1 tablet by mouth every four hours as needed 650 mg, oral, Every 4 hours PRN, pain mild (1-3), first line, Starting on Fri12/08/24 at 1027, Administer tablet or oral liquid per patient preference., If ordered PRN for pain, nurse is permitted to administer this medication for higher pain scores based on patient preference? Yes Start: 09-23-2022 acetaminophen 325 mg oral capsule Dose : 650 mg = 2 cap(s), Oral, q4h, PRN for pain, 0 Refill(s) Start Date: 09/23/22 Status: Ordered Medication Dispense Status: Completed Total Allowed Fills: 1 Fills Dispensed: 0 Start: 07-07-2019 take 650 mg by mouth every four hours Acetaminophen Active 650 MG PO Q4H July 07, 2019 1:00am Start: 09-29-2017 Tylenol Extra Strength 500 mg oral tablet Dose : 1,500 mg = 3 tab(s), Oral, q4h, PRN as needed for pain Start Date: 09/29/17 Status: Ordered Start: 03-19-2016 take 2 tablets by mo uth every four hours as needed for pain Acetaminophen 325 mg tablet Active 650 mg PO Q4H as needed for Pain July 07, 2019 1:00am Comment on above: Take 2 tablets every 4 hours as needed for pain. acetaminophen 325 mg / HYDROcodone bitartrate 5 mg oral tablet (2 sources) Opioid Agonist Start: 12-09-2022 End: 12-12-2022 take 1 tablet by mouth every eight hours as needed for pain Norman 325- 5 mg oral tablet Dose = 1 tab(s), Oral, q8h, PRN as needed for pain, X 3 day(s), # 9 tab(s), 0 Refill(s), Sciatic pain, 68 Start Date: 12/09/22 Stop Date: 12/12/22 Status: Ordered Start: 01-27-2022 End: 01-30-2022 take 1 tablet by mouth every eight hours as needed for pain Norman 325- 5 mg oral tablet Dose = 1 tab(s), Oral, q8h, PRN as needed for pain, X 3 day(s), # 9 tab(s), 0 Refill(s), Strain of muscle of left posterior lower leg Torn muscle, 73 Start Date: 01/27/22 Stop Date: 01/30/22 Status: Ordered albuterol 0.83 mg/ml inhalation solution (17 sources) beta2-Adrenergic Agonist Start: 12-08-2024 take 2.5 mg by inhalation every four hours as needed 2.5 mg, nebulization, Every 4 hours PRN, shortness of breath, Starting on Fri12/08/24 at 0939 Start: 12-08-2024 Albuterol Sulf ate 90 mcg/actuation HFA aerosol inhaler Active 2 NMA INHALATION EVERY 4 HOURS NEEDED as needed for wheezing December 08, 2024 12:00am Start: 08-24-2024 take 2 puff(s) by in halation every four hours as needed for wheezing albuterol 90 mcg/actuation inhaler INHALE 2 PUFFS EVERY 4 HOURS NEEDED FOR FOR WHEEZING 08/24/2024 Active Start: 05-30-2024 take 2 puff(s) by in halation every four hours as needed for wheezing albuterol HFA (PROVENTIL HFA, VENTOLIN HFA) 90 mcg/actuation inhaler Inhale 2 Puffs as instructed every 4 hours as needed for wheezing/shortness of breath. 8 g 05/30/2024 Active Start: 07-07-2019 End: 08-21-2021 Albuterol Sulfate 90 mcg/act uation HFA aerosol inhaler Discontinued 2 NMA INHALATION EVERY 6 HOURS as needed July 07, 2019 1:00am August 21, 2021 11:57am Start: 07-07-2019 End: 08-21-2021 take 1 puff(s) by inhalation every six hours Albuterol Sulfate Discontinued 2 PUFF INHALATION EVERY 6 HOURS July 07, 2019 1:00am August 21, 2021 11:57am albuterol MDI (90 mcg/inh) CFC free inhalation aerosol (10 sources) Start: 08-24-2024 take 1 puff(s) by inhalation every four hours as needed for wheezing albuterol MDI (90 mcg/inh) CFC free inhalation aerosol 1 puff(s), Inhalation, q4h, PRN as needed for wheezing, # 18 gram(s), 3 Refill(s), Pharmacy: [id number], 184.8, cm, 08/24/24 14:18:00 EST, Height, kg, 08/24/24 14:18:00 EST, Dosing Weight Start Date: 08/24/24 Status: Ordered Medication Dispense Status: Completed Quantity: 18.0 Unit: g Total Allowed Fills: 4 Fills Dispensed: 0 Start: 08-24-2024 take 1 puff(s) by in halation every four hours as needed for wheezing albuterol MDI (90 mcg/inh) CFC free inhalation aerosol 1 puff(s), Inhalation, q4h, PRN as needed for wheezing, # 18 gram(s), 3 Refill(s), Pharmacy: [id number], 184.8, cm, 08/24/24 14:18:00 EST, Height, kg, 08/24/24 14:18:00 EST, Dosing Weight Start Date: 08/24/24 Status: Ordered Quantity: 18.0 Unit: g Repeat number: 4 aspirin 81 mg delayed release oral tablet (20 sources) Platelet Aggregation Inhibitor, Nonsteroidal Anti-inflammatory Drug Start: 02-04-2024 take 1 tablet by mouth once daily aspirin 81 mg EC tablet Take 1 tablet (81 mg) by mouth once daily. 02/04/2024 Active Start: 08-09-2023 take 1 tablet by michael once daily aspirin 81 mg chewable tablet 1 tablet by ORAL/FEEDING TUBE route once daily. 08/09/2023 Active Comment on above: 1 tablet by ORAL/FEE DING TUBE route once daily. atorvastatin 40 mg oral tablet (20 sources) HMG-CoA Reductase Inhibitor Start: 12-20-2024 atorvastatin 40 mg oral tablet Dose : 40 mg = 1 tab(s), Oral, qDay, # 100 tab(s), 3 Refill(s), Pharmacy: [facility]/pharmacy #[id number], 165.1, cm, 12/18/24 18:33:00 EDT, Height, kg, 12/20/24 16:54:00 EDT, Dosing Weight Start Date: 12/20/24 Status: Ordered Medication Dispense Status: Completed Quantity: 100.0 Unit: tab(s) Total Allowed Fills: 4 Fills Dispensed: 0 Start: 12-08-2024 take 40 mg by mouth once daily 40 mg, oral, Nightly, First dose on Fri12/08/24 at 2100 Start: 08-08-2023 End: 10-22-2024 take 1 tablet by mouth once daily atorvastatin (Lipitor) 40 mg tablet Take 1 tablet (40 mg) by mouth once daily. 08/08/2023 Active Start: 09-27-2022 End: 10-27-2022 atorvastatin 40 mg oral tabl et Dose : 40 mg = 1 tab(s), Oral, qDay, # 30 tab(s), 0 Refill(s), Pharmacy: [id number], 180.3, cm, 09/23/22 13:37:00 EDT, Height Start Date: 09/27/22 Stop Date: 10/27/22 Status: Ordered Quantity: 30.0 Unit: tab(s) Repeat number: 1 Comment on above: Take 1 tablet by michael th daily at bedtime. busPIRone hydrochloride 5 mg oral tablet (20 sources) Start: 02-03-2025 End: 05-04-2025 busPIRone 5 mg oral tablet Dose : 5 mg = 1 tab(s), Oral, TID, # 270 tab(s), 0 Refill(s), Pharmacy: [facility]/pharmacy #[id number], 184, cm, 02/03/25 9:50:00 EDT, Height, kg, 02/03/25 9:50:00 EDT, Dosing Weight Start Date: 02/03/25 Stop Date: 05/04/25 Status: Ordered Medication Dispense Status: Completed Quantity: 270.0 Unit: tab(s) Total Allowed Fills: 1 Fills Dispensed: 0 Start: 08-26-2022 End: 09-11-2023 take 1 tablet by mouth three times daily Buspirone 5 mg tablet Discontinued 5 mg PO THREE TIMES A DAY September 19, 2022 12:00am September 11, 2023 10:12am Comment on above: Take 1 tablet by michael th three times daily. calcium acetate 667 mg oral capsule (20 sources) Start: 09-23-2022 calcium acetate 667 mg oral capsule Dose : 2,668 mg = 4 cap(s), Oral, TIDM, 0 Refill(s) Start Date: 09/23/22 Status: Ordered Medication Dispense Status: Completed Total Allowed Fills: 1 Fills Dispensed: 0 Start: 07-07-2019 End: 02-04-2024 take 2 capsules by mouth three times daily at mealtime Calcium Acetate(Phosphat Bind) 667 mg capsule Discontinued 2668 mg PO 3 TIMES DAILY WITH MEALS July 07, 2019 9:36am February 04, 2024 3:11pm Take 2 caps with each snack Start: 09-03-2016 End: 07-07-2019 Calcium Acetate(Phosphat Bin d) 667 MG capsule Discontinued 4 {tbl} PO 3 TIMES DAILY WITH MEALS September 03, 2016 1:22pm July 07, 2019 9:39am Start: 10-31-2015 End: 09-03-2016 Calcium Acetate(Phosphat Bin d) 667 MG capsule Discontinued 3 {tbl} PO NEEDED as needed for AFTER SNACKS October 31, 2015 12:00am September 03, 2016 1:20pm Start: 10-31-2015 End: 07-07-2019 take 4 tablets by mouth three times daily at mealtime Calcium Acetate(Phosphat Bind) Discontinued 4 TABLET PO 3 TIMES DAILY WITH MEALS September 03, 2016 1:22pm July 07, 2019 9:39am End: 08-08-2023 calcium acetate (PHOSLO) 667 mg tab Take 667 mg by mouth as directed. takes 4 capsules 3 times a day plus 2 capsules with each snack. 08/08/2023 Discontinued (Erroneous entry) Comment on above: Take 667 mg by mouth as directed. takes 4 capsules 3 times a day plus 2 capsules with each snack. carvedilol 6.25 mg oral tablet (20 sources) alpha-Adrenergic Marcela, beta-Adrenergic Marcela Start: 12-20-2024 carvedilol 6.25 mg oral tablet Dose : 6.25 mg = 1 tab(s), Oral, BID, # 180 tab(s), 3 Refill(s), Pharmacy: [facility]/pharmacy #[id number], 165.1, cm, 12/18/24 18:33:00 EDT, Height, kg, 12/20/24 16:54:00 EDT, Dosing Weight Start Date: 12/20/24 Status: Ordered Medication Dispense Status: Completed Quantity: 180.0 Unit: tab(s) Total Allowed Fills: 4 Fills Dispensed: 0 Start: 09-08-2024 take 1 tablet by michael th twice daily at mealtime Carvedilol 6.25 mg tablet Active 6.25 mg PO TWICE A DAY 180 September 08, 2024 12:00am must administer with a meal/food Start: 03-03-2023 End: 09-08-2024 take 1 tablet by mouth twice daily carvedilol (Coreg) 3.125 mg tablet Take 1 tablet (3.125 mg) by mouth 2 times a day. 03/03/2023 Active Start: 09-27-2022 End: 10-27-2022 Coreg 3.125 mg oral tablet D ose : 3.125 mg = 1 tab(s), Oral, BIDM, # 60 tab(s), 0 Refill(s), Pharmacy: [id number], 180.3, cm, 09/23/22 13:37:00 EDT, Height Start Date: 09/27/22 Stop Date: 10/27/22 Status: Ordered Start: 12-07-2018 take 1 tablet by michael th twice daily carvedilol 6.25 mg oral tablet TAKE 1 TABLET BY MOUTH TWICE DAILY Start Date: 12/07/18 Status: Ordered Start: 10-31-2015 End: 03-03-2023 take 1 tablet by mouth twice daily Carvedilol 25 MG tablet Discontinued 25 mg PO TWICE A DAY October 31, 2015 12:00am June 19, 2022 7:18pm Start: 09-17-2014 End: 10-19-2014 take 1 tablet by mouth twice daily Carvedilol 6.25 MG tablet Discontinued 6.25 mg PO TWICE A DAY 60 September 17, 2014 12:00am October 19, 2014 11:55am Carvedilol 25 MG Oral Tablet Quantity: 0 Refills: 0 Ordered: 14-Oct-2019 DO Active Comment on above: Take 25 mg by mouth twice daily with meals. Take 1 tablet by michael th twice daily with meals. Per [facility] cefdinir 300 mg oral capsule (1 source) Cephalosporin Antibacterial Start: 11-25-19 End: 12-02-19 cefdinir (OMNICEF) 300 mg capsule Indications: Other acute nonsuppurative otitis media of left ear, recurrence not specified Take 1 capsule by mouth every 48 hours for 7 days. Take after dialysis 4 capsule 11/24/2024 12/01/2024 Active doxycycline hyclate 100 mg oral tablet (3 sources) Tetracycline-class Drug Start: 05-30-20 End: 06-09-20 take 1 tablet by mouth twice daily doxycycline (VIBRA-TABS) 100 mg tablet Indications: Acute cough Take 1 tablet by mouth two times a day for 10 days. 20 tablet 05/30/2024 06/09/2024 Active Start: 04-13-2024 End: 04-20-2024 take 1 tablet by mouth twice daily doxycycline (VIBRA-TABS) 100 mg tablet Take 1 tablet by mouth two times a day for 7 days. 14 tablet 04/13/2024 04/20/2024 Active Start: 04-30-2021 End: 05-07-2021 doxycycline hyclate 100 mg o ral capsule Dose : 100 mg = 1 cap(s), Oral, BID, X 7 day(s), # 14 cap(s), 0 Refill(s), 05/07/21 22:01:00 EST, 72.7 Start Date: 04/30/21 Stop Date: 05/07/21 Status: Ordered 12 hr guaiFENesin 600 mg extended release oral tablet (1 source) Start: 11-24-2024 End: 12-01-2024 take 1 tablet by mouth twice daily guaiFENesin (MUCINEX) 600 mg 12 hr tablet Indications: Viral URI with cough Take 1 tablet by mouth two times a day for 7 days. 14 tablet 11/24/2024 12/01/2024 Active 1 ml heparin sodium, porcine 5000 unt/ml injection (1 source) Unfractionated Heparin, Anti-coagulant Start: 12-08-2024 inject 5000 [IU] by subcutaneous injection every eight hours 5,000 Units, subcutaneous, Every 8 hours scheduled, First dose on Fri12/08/24 at 0935 Inhalational Spacing Device (1 source) Start: 05-30-2024 End: 05-30-2024 Inhalational Spacing Device 1 Device one time only for 1 dose. 1 Each 05/30/2024 05/30/2024 Active 24 hr isosorbide mononitrate 30 mg extended release oral tablet (20 sources) Nitrate Vasodilator Start: 12-03-2024 End: 04-19-2025 isosorbide mononitrate 30 mg oral tablet, extended release Dose : 60 mg = 2 tab(s), Oral, qDayAC, # 180 tab(s), 3 Refill(s), [id number], 165.1, cm, 12/18/24 18:33:00 EDT, Height, kg, 12/20/24 16:54:00 EDT, Dosing Weight Start Date: 12/20/24 Stop Date: 04/19/25 Status: Ordered Medication Dispense Status: Completed Quantity: 180.0 Unit: tab(s) Total Allowed Fills: 4 Fills Dispensed: 0 Start: 10-14-2024 take 1 tablet by michael once daily 60 mg, oral, Daily, First dose on Fri12/08/24 at 1000, If scored, tablet may be split. Do not crush or chew. Start: 02-04-2024 End: 10-14-2024 take 1 tablet by mouth once daily, then take 1 tablet by mouth every twenty-four hours Isosorbide Mononitrate 30 mg tablet extended release 24 hr Discontinued 30 mg PO DAILY February 04, 2024 3:41pm October 14, 2024 9:35am Start: 09-27-2022 End: 10-27-2022 isosorbide mononitrate 30 mg oral tablet, extended release Dose : 30 mg = 1 tab(s), Oral, qDayAC, # 30 tab(s), 0 Refill(s), Pharmacy: [id number], 180.3, cm, 09/23/22 13:37:00 EDT, Height Start Date: 09/27/22 Stop Date: 10/27/22 Status: Ordered Quantity: 30.0 Unit: tab(s) Repeat number: 1 Start: 09-27-2022 End: 04-02-2025 take 2 tablets by mouth once daily isosorbide mononitrate ER (Imdur) 30 mg 24 hr tablet Take 2 tablets (60 mg) by mouth once daily. 09/27/2022 04/02/2025 Active iv contrast (will be provided with radiology test) (1 source) Start: 05-29-2023 End: 05-30-2023 inject 1 dose intravenously once iv contrast (will be provided with radiology test) Indications: Vasculopathy CTA CHEST - No IV access, insert saline lock prior to the sedation, infusion, injection for imaging exam. Discontinue saline lock post exam. If Pt. has a central line or IVAD, may access for administration according to line specific nursing protocol. Once exam is complete flush line and de-access according to line specific nursing protocol in the CT contrast administration guidelines link. 1 Each 0 05/29/2023 05/30/2023 Active Comment on above: CTA CHEST - No IV access, insert saline lock prior to the sedation, infusion, injection for imaging exam. Discontinue saline lock post exam. If Pt. has a central line or IVAD, may access for administration according to line specific nursing protocol. Once exam is complete flush line and de-access according to line specific nursing protocol in the CT contrast administration guidelines link. lanolin 0.157 mg/mg / menthol 0.0044 mg/mg / petrolatum 0.24 mg/mg / zinc oxide 0.206 mg/mg topical ointment (3 sources) Start: 12-23-2024 apply 1 dose topically three times daily Calmoseptine 0.44%-20.6% topical ointment Apply 1 kyleigh, Topical, TID, clean affected area before application, # 113 gram(s), 2 Refill(s), Pharmacy: [facility]/pharmacy #[id number], Ointment, 184, cm, 12/23/24 9:59:00 EDT, Height, 70.6, kg, 12/23/24 9:59:00 EDT, Dosing Weight Start Date: 12/23/24 Status: Ordered Medication Dispense Status: Completed Quantity: 113.0 Unit: g Total Allowed Fills: 3 Fills Dispensed: 0 Indications: Pressure ulcer of unspecified site, stage 1; lidocaine 0.05 mg/mg medicated patch (20 sources) Antiarrhythmic, Amide Local Anesthetic Start: 12-09-2022 End: 01-08-2023 Lidoderm 5% topical patch Apply 1 patch(es), Transdermal, qDay, X 30 day(s), # 30 patch(es), 0 Refill(s), 68 Start Date: 12/09/22 Stop Date: 01/08/23 Status: Ordered Start: 07-01-2022 apply 1 dose transde rmal route every twenty-four hours lidocaine (LIDODERM) 5 % Apply 1 Patch as directed every 24 hours. 10 Patch 2 07/01/2022 Suspended Comment on above: Apply 1 Patch as dir ected every 24 hours. metroNIDAZOLE 500 mg oral tablet (1 source) Nitroimidazole Antimicrobial Start: End: metroNIDAZOLE 500 mg oral tablet Dose : 500 mg = 1 tab(s), Oral, q8h, X 10 day(s), # 30 tab(s), 0 Refill(s), 10/21/21 20:05:00 EDT, 73 Start Date: 10/11/21 Stop Date: 10/21/21 Status: Ordered midodrine hydrochloride 5 mg oral tablet (3 sources) alpha-Adrenergic Agonist Start: midodrine 5 mg oral tablet Dose : 10 mg = 2 tab(s), Oral, TID, # 180 tab(s), 0 Refill(s) Start Date: 09/18/23 Status: Ordered Quantity: 180.0 Unit: tab(s) Repeat number: 1 Nephro-Elle oral tablet (6 sources) Start: take 1 tablet by mouth once daily Nephro-Elle oral tablet Dose = 1 tab(s), Oral, Daily, # 90 tab(s), 0 Refill(s) Start Date: 10/22/20 Status: Ordered 24 hr nicotine 0.875 mg/hr transdermal system (7 sources) Cholinergic Nicotinic Agonist Start: 025 apply 1 dose topically every twenty-four hours Nicotine 21 mg/24 hr patch 24 hour Active 1 NMA TOPICAL DAILY December 08, 2024 12:00am Start: 12-06-2024 apply 1 dose transde rmal route every twenty-four hours nicotine (Nicoderm CQ) 21 mg/[address] 1 patch on the skin once every 24 hours. 12/06/2024 Active Start: 12-03-2024 End: 01-02-2025 nicotine 21 mg/24 hr transde rmal film, extended release 21 = mg Apply 1 patch(es), Transdermal, qDay, apply to skin, X 30 day(s), # 30 patch(es), 0 Refill(s), Pharmacy: [facility]/pharmacy #[id number], 180, cm, 12/03/24 13:46:00 EDT, Height, 75.5, kg, 12/03/24 13:46:00 EDT, Dosing Weight Start Date: 12/03/24 Stop Date: 01/02/25 Status: Ordered Quantity: 30.0 Unit: patch(es) Repeat number: 1 nystatin 100,000 units/g topical powder (1 source) Start: 04-30-2021 End: 05-07-2021 nystatin 100,000 units/g topical powder Apply 1 kyleigh, Topical, BID, X 7 day(s), # 30 gram(s), 0 Refill(s), Powder, 72.7 Start Date: 04/30/21 Stop Date: 05/07/21 Status: Ordered ondansetron 4 mg disintegrating oral tablet (1 source) Serotonin-3 Receptor Antagonist Start: 10-11-2021 End: 10-14-2021 ondansetron 4 mg oral tablet, disintegrating Dose : 4 mg = 1 tab(s), Oral, TID, X 3 day(s), # 10 tab(s), 0 Refill(s), 10/14/21 18:24:00 EDT Start Date: 10/11/21 Stop Date: 10/14/21 Status: Ordered oxyCODONE hydrochloride 5 mg oral tablet (19 sources) Opioid Agonist Start: 08-08-2023 End: 08-15-2023 take 1 tablet by mouth every six hours as needed oxyCODONE IR (ROXICODONE) 5 mg immediate release tablet Indications: Postoperative pain Take 1 tablet by mouth every 6 hours as needed for up to 7 days. 28 tablet 0 08/08/2023 08/15/2023 Active Start: 10-31-2014 End: 11-02-2014 take 2 tablets by mouth every four hours as needed for pain Oxycodone 5 MG tablet Discontinued 10 mg PO EVERY 4 HOURS NEEDED as needed for Pain October 31, 2014 12:11pm November 02, 2014 12:03pm Start: 10-19-2014 End: 10-31-2014 take 10-20 mg by mouth every four hours as needed for pain Oxycodone 5 MG tablet Discontinued 10 - 20 mg PO EVERY 4 HOURS NEEDED as needed for Pain 80 October 19, 2014 12:00am October 31, 2014 12:11pm Start: 10-19-2014 End: 11-02-2014 take 10 mg by mouth every four hours as needed Oxycodone Discontinued 10 MG PO EVERY 4 HOURS NEEDED October 31, 2014 12:11pm November 02, 2014 12:03pm Comment on above: Take 1 tablet by michael th every 6 hours as needed for up to 7 days. polyethylene glycol 3350 29179 mg powder for oral solution (2 sources) Osmotic Laxative Start: 12-08-2024 17 g, oral, Daily, First dose on Fri12/08/24 at 0900, Bowel Regimen - for prevention of constipation. Start: 10-06-2020 End: 07-17-2021 polyethylene glycol 3350 (SD RALAX, GLYCOLAX) 17 gram/dose powder Indications: Blood in stool Use as directed for Miralax / Gatorade Bowel Prep Kit 238 g 10/06/2020 07/17/2021 Discontinued predniSONE 10 mg oral tablet (20 sources) Start: 08-24-2024 End: 09-07-2024 take 6 tablets by mouth once daily, then take 4 tablets by mouth once daily, then take 2 tablets by mouth once daily, then take 1 tablet by mouth once daily, then take 0.5 tablet by mouth once daily prednisone 10mg tab (TAPER) Taper 78-41-89-10-5 mg, Oral, Daily, Take 6 tabs daily x 3days, then 4 tabs daily x 3days, then 2 tabs daily x 3days,then 1 tab daily x 3days,then 1/2 tab daily x 2 days, # 40 tab(s), 0 Refill(s), Pharmacy: [facility] #[id number], Low back pain with left-sided sciatica, 184.8, cm, 08/24/24 14:18:00 EST, Height, kg, 08/24/24 14:18:00 EST, Dosing Weight Start Date: 08/24/24 Stop Date: 09/07/24 Status: Ordered Quantity: 40.0 Unit: tab(s) Repeat number: 1 Indication: Lumbago with sciatica, left side Start: 04-13-2024 predniSONE (DE LTASONE) 10 mg tablet Take 4 tabs daily for 3 days, then 2 tabs daily for 3 days, then 1 tab daily for 3 days with food. 21 tablet 05/30/2024 Active Start: 04-01-2024 End: 04-05-2024 take 2 tablets by mouth once daily at mealtime predniSONE (DELTASONE) 20 mg tablet Take 2 tablets by mouth once daily for 4 days. Take daily with food. 8 tablet 04/01/2024 04/05/2024 Active Start: 05-29-2023 predniSONE (DE LTASONE) 50 mg Take one tablet by mouth13 hrs prior to scan, then 7 hrs prior to scan and then 1 hr prior to scan 3 tablet 0 05/29/2023 Suspended Start: 12-09-2022 End: 12-14-2022 predniSONE 10 mg oral tablet Dose : 40 mg = 4 tab(s), Oral, qDay, # 20 tab(s), 0 Refill(s) Start Date: 12/09/22 Stop Date: 12/14/22 Status: Ordered Start: 07-07-2019 End: 08-21-2021 Prednisone 50 mg tablet Discontinued 50 mg PO .COMPLEX July 07, 2019 1:00am August 21, 2021 11:57am 50 mg PO Take 1 tablet 13 hours, 7 hours and 1 hour prior to test; Start: 04-18-2013 End: 01-24-2014 take 4 tablets by mouth once daily Prednisone 5 MG tablet Discontinued 20 mg PO DAILY April 18, 2013 12:00am January 24, 2014 1:17pm Start: 04-18-2013 End: 01-24-2014 take 20 mg by mouth once daily Prednisone Discontinued 20 MG PO DAILY April 18, 2013 12:00am January 24, 2014 1:17pm Comment on above: Take one tablet by m outh13 hrs prior to scan, then 7 hrs prior to scan and then 1 hr prior to scan sertraline 25 mg oral tablet (7 sources) Serotonin Reuptake Inhibitor Start: 10-09-2020 End: 07-17-2021 sertraline 25 mg oral tablet Dose : 25 mg = 1 tab(s), Oral, qDay, # 30 tab(s), 0 Refill(s) Start Date: 10/22/20 Status: Ordered sevelamer carbonate 800 mg oral tablet (20 sources) Phosphate Binder Start: 09-29-2017 Renvela 800 mg oral tablet (NF) Dose : 800 mg = 1 tab(s), Oral, TIDM Start Date: 09/29/17 Status: Ordered Medication Dispense Status: Completed Total Allowed Fills: 1 Fills Dispensed: 0 Renvela TABS Terry ntity: 0 Refills: 0 Ordered: 18-Aug-2018 DO Active Renvela TABS Ref ills: 0 Active Renvela TABS Ref ills: 0 DO Active Comment on above: Take 1 tablet by michael th three times daily. sodium zirconium cyclosilicate 56696 mg powder for oral suspension (1 source) Start: 5 End: 5 take 10 g by mouth every eight hours 10 g, oral, Every 8 hours, First dose on Fri12/08/24 at 0905, For 6 doses, Empty entire contents of packet(s) into 45 mL water. Stir well and administer immediately. If powder remains, rinse glass with water and administer. Symbicort 80 mcg-4.5 mcg/inh Inhaler (10 sources) Start: 4 take 1 dose by inhalation twice daily Symbicort 80 mcg-4.5 mcg/inh Inhaler Dose = 2 puff(s), Inhalation, BID, # 10.2 gram(s), 2 Refill(s), Pharmacy: [facility] #[id number], COPD (chronic obstructive pulmonary disease), 184.4, cm, 06/02/24 14:51:00 EST, Height, kg, 06/02/24 14:51:00 EST, Dosing Weight Start Date: 06/02/24 Status: Ordered Medication Dispense Status: Completed Quantity: 10.2 Unit: g Total Allowed Fills: 3 Fills Dispensed: 0 Indications: Chronic obstructive pulmonary disease, unspecified; Start: 06-02-2024 take 1 dose by inhal ation twice daily Symbicort 80 mcg-4.5 mcg/inh Inhaler Dose = 2 puff(s), Inhalation, BID, # 10.2 gram(s), 2 Refill(s), Pharmacy: [facility] #[id number], COPD (chronic obstructive pulmonary disease), 184.4, cm, 06/02/24 14:51:00 EST, Height, kg, 06/02/24 14:51:00 EST, Dosing Weight Start Date: 06/02/24 Status: Ordered Quantity: 10.2 Unit: g Repeat number: 3 Indications: Chronic obstructive pulmonary disease, unspecified; Start: 06-02-2024 take 1 dose by inhal ation twice daily Symbicort 80 mcg-4.5 mcg/inh Inhaler Dose = 2 puff(s), Inhalation, BID, # 10.2 gram(s), 2 Refill(s), Pharmacy: [facility] #[id number], COPD (chronic obstructive pulmonary disease), 184.4, cm, 06/02/24 14:51:00 EST, Height, kg, 06/02/24 14:51:00 EST, Dosing Weight Start Date: 06/02/24 Status: Ordered Quantity: 10.2 Unit: g Repeat number: 3 Indication: Chronic obstructive pulmonary disease, unspecified tiZANidine 2 mg oral tablet (3 sources) Central alpha-2 Adrenergic Agonist Start: 10-08-2022 tiZANidine 2 mg oral tablet Dose : 2 mg = 1 tab(s), Oral, q8h, # 24 tab(s), 0 Refill(s), Chest pain Start Date: 10/08/22 Status: Ordered Completed/Discontinued Medications Medication Drug Class(es) Dates Sig (Normalized) Sig (Original) acetaminophen 325 mg / oxyCODONE hydrochloride 5 mg oral tablet (16 sources) Opioid Agonist Start: 02-05-2018 End: 02-13-2018 Oxycodone-Acetamino phen 1 TABLET tablet Discontinued 1 {tbl} PO EVERY 6 HOURS NEEDED as needed for Pain 6 2 February 05, 2018 12:00am February 13, 2018 3:05pm Start: 02-05-2018 End: 02-13-2018 take 1 tablet by mouth every six hours as needed Oxycodone-Acetaminophen Discontinued 1 TABLET PO EVERY 6 HOURS NEEDED 6 February 05, 2018 12:00am February 13, 2018 3:05pm Start: 09-15-2014 End: 09-17-2014 Oxycodone-Acetaminophen (Per cocet 10-325 Mg Tablet) 1 EACH tablet Discontinued 1 {tbl} PO EVERY 8 HOURS NEEDED as needed for Pain September 15, 2014 12:00am September 17, 2014 11:14am ALPRAZolam 1 mg oral tablet (20 sources) Benzodiazepine Start: 08-02-2015 End: 09-07-2015 take 1 tablet by mouth twice daily as needed for anxiety Alprazolam (Xanax) 1 MG tablet Discontinued 1 mg PO TWICE DAILY NEEDED as needed for Anxiety August 02, 2015 5:12pm September 07, 2015 4:48pm Start: 10-31-2014 End: 11-02-2014 take 1 tablet by mouth three times daily Alprazolam 0.5 MG tablet Discontinued 0.5 mg PO THREE TIMES A DAY October 31, 2014 12:00am November 02, 2014 12:02pm Start: 09-17-2014 End: 09-17-2014 take 2 tablets by mouth twice daily as needed for anxiety Alprazolam 0.25 MG tablet Discontinued 0.5 mg PO TWICE DAILY NEEDED as needed for anxiety September 17, 2014 11:12am September 17, 2014 11:15am Start: 09-17-2014 End: 09-17-2014 take 0.5 mg by mouth twice daily as needed Alprazolam Discontinued 0.5 MG PO TWICE DAILY NEEDED September 17, 2014 11:12am September 17, 2014 11:15am Start: 09-15-2014 End: 09-17-2014 take 1 tablet by mouth twice daily Alprazolam 0.25 MG tablet Discontinued 0.25 mg PO TWICE A DAY September 15, 2014 12:00am September 17, 2014 11:13am amLODIPine 10 mg oral tablet (20 sources) Dihydropyridine Calcium Channel Marcela Start: 09-03-2016 End: 08-08-2023 take 1 tablet by mouth once daily Amlodipine 10 MG tablet Discontinued 10 mg PO DAILY September 03, 2016 1:23pm December 03, 2016 8:50am Start: 04-29-2013 End: 01-24-2014 take 1 tablet by mouth once daily Amlodipine 5 MG tablet Discontinued 5 mg PO DAILY April 29, 2013 1:00am January 24, 2014 1:15pm amLODIPine Besyl ate 10 MG Oral Tablet Quantity: 0 Refills: 0 Ordered: 14-Oct-2019 DO Active Comment on above: Take 1 tablet by michael once daily. azithromycin 250 mg oral tablet (20 sources) Macrolide Antimicrobial Start: 02-26-2022 End: 07-01-2022 azithromycin (ZITHROMAX) 250 mg tablet Take 2 tabs on the first day, then one tab daily for 4 days. 6 tablet 02/26/2022 07/01/2022 Discontinued (Course of therapy completed) Start: 09-07-2013 End: 01-24-2014 take 1 tablet by mouth once daily Azithromycin 250 MG tablet Discontinued 250 mg PO DAILY September 07, 2013 12:00am January 24, 2014 1:16pm Comment on above: Take 2 tabs on the f irst day, then one tab daily for 4 days. baclofen 10 mg oral tablet (4 sources) gamma-Aminobutyric Acid-ergic Agonist Start: 3 End: 3 baclofen 10 mg oral tablet Dose : 10 mg = 1 tab(s), Oral, TID, # 21 tab(s), 0 Refill(s) Start Date: 12/09/22 Stop Date: 12/16/22 Status: Ordered Quantity: 21.0 Unit: tab(s) Repeat number: 1 benzonatate 100 mg oral capsule (16 sources) Non-narcotic Antitussive Start: 0 End: 0 take 1 capsule by mouth three times daily as needed Benzonatate 100 mg capsule Discontinued 100 mg PO THREE TIMES A DAY as needed July 07, 2019 1:00am July 13, 2019 2:31pm Start: 09-07-2013 End: 01-24-2014 take 2 capsules by mouth three times daily as needed for cough Benzonatate 100 MG capsule Discontinued 200 mg PO 3 TIMES DAILY NEEDED as needed for Cough September 07, 2013 12:00am January 24, 2014 1:16pm Start: 09-07-2013 End: 01-24-2014 take 200 mg by mouth three times daily as needed Benzonatate Discontinued 200 MG PO 3 TIMES DAILY NEEDED September 07, 2013 12:00am January 24, 2014 1:16pm bisacodyl 5 mg delayed release oral tablet (1 source) Stimulant Laxative Start: 10-06-2020 End: 07-17-2021 Bisacodyl (DULCOLAX) 5 mg tab Indications: Blood in stool Use as directed for Miralax / Gatorade Bowel Prep Kit 4 tablet 10/06/2020 07/17/2021 Discontinued calcium carbonate 500 mg chewable tablet (20 sources) Start: 09-15-2014 End: 08-20-2015 take 3 tablets by mouth three times daily Calcium Carbonate 500 MG tablet Discontinued 1500 mg PO THREE TIMES A DAY September 15, 2014 12:00am August 20, 2015 12:53pm Start: 09-15-2014 End: 08-20-2015 take 1500 mg by mouth three times daily Calcium Carbonate Discontinued 1500 MG PO THREE TIMES A DAY September 15, 2014 12:00am August 20, 2015 12:53pm Start: 04-29-2013 End: 01-24-2014 take 3 tablets by mouth three times daily at mealtime Calcium Carbonate 500 MG tablet Discontinued 1500 mg PO 3 TIMES DAILY WITH MEALS April 29, 2013 1:00am January 24, 2014 1:17pm Start: 04-29-2013 End: 01-24-2014 take 1500 mg by mouth three times daily at mealtime Calcium Carbonate Discontinued 1500 MG PO 3 TIMES DAILY WITH MEALS April 29, 2013 1:00am January 24, 2014 1:17pm Tums CHEW TAKE T ABLET PRN Quantity: 0 Refills: 0 Ordered: 29-Sep-2018 DO Active Tums CHEW TAKE T ABLET PRN Refills: 0 Active Tums CHEW TAKE T ABLET PRN Refills: 0 DO Active calcium chloride 0.0014 meq/ml / potassium chloride 0.004 meq/ml / sodium chloride 0.103 meq/ml / sodium lactate 0.028 meq/ml injectable solution (1 source) Start: 12-08-2024 End: 12-08-2024 1,000 mL, intravenous, at 999 mL/hr, Administer over 1 Hours, Once, On Fri12/08/24 at 0550, For 1 dose clopidogrel 75 mg oral tablet (19 sources) [id number] Platelet Inhibitor Start: 09-30-2017 End: 01-19-2018 take 1 tablet by mouth once daily Clopidogrel 75 MG tablet Discontinued 75 mg PO DAILY October 06, 2017 12:00am January 19, 2018 12:54pm Plavix 75 MG Ora l Tablet Quantity: 0 Refills: 0 Ordered: 28-Feb-2021 DO Active diphenhydrAMINE hydrochloride 50 mg oral capsule (20 sources) Histamine-1 Receptor Antagonist Start: 05-29-2023 diphenhydrAMINE (BENADRYL) 50 mg capsule Take 1 capsule by mouth as directed for 1 dose. Take 1 capsule by mouth 1 hour prior to your scan. 1 capsule 0 05/29/2023 Suspended Start: 07-07-2019 End: 08-21-2021 Diphenhydramine Hcl 50 mg ca psule Discontinued 50 mg PO .COMPLEX 1 July 07, 2019 1:00am August 21, 2021 11:57am 50 mg PO Take 1 tablet night prior to test; Start: 09-29-2017 Benadryl 25 mg oral tablet Dose : 25 mg = 1 tab(s), Oral, TID, PRN as needed for allergy symptoms Start Date: 09/29/17 Status: Ordered Comment on above: Take 1 capsule by [facility] as directed for 1 dose. Take 1 capsule by mouth 1 hour prior to your scan. etodolac 400 mg oral tablet (6 sources) Nonsteroidal Anti-inflammatory Drug Start: 1 End: 1 etodolac 400 mg oral tablet Dose : 400 mg = 1 tab(s), Oral, BID, # 14 tab(s), 0 Refill(s), Foot pain Start Date: 02/07/21 Stop Date: 02/14/21 Status: Ordered famotidine 20 mg oral tablet (8 sources) Histamine-2 Receptor Antagonist Start: 6 End: 8 take 1 tablet by mouth once daily as needed Famotidine 20 MG tablet Discontinued 20 mg PO DAILY NEEDED as needed for Indigestion October 31, 2015 12:00am January 19, 2018 12:54pm Gatorade Sports Drink (1 source) Start: 1 End: 2 Gatorade Sports Drink Indications: Blood in stool Use as directed for Miralax / Gatorade Bowel Prep Kit 64 oz 10/06/2020 07/17/2021 Discontinued hydrALAZINE (20 sources) Arteriolar Vasodilator Start: 5 End: 5 take 1 tablet by mouth in the evening hydrALAZINE Start: 01/31/25 4:00:00 PM EDT, Dose = 25 mg, = 1 tab(s), Oral, 0, 01/31/25 9:27:00 EDT Start Date: 01/31/25 Stop Date: 01/31/25 Status: Completed Medication Dispense Status: Completed Total Allowed Fills: 1 Fills Dispensed: 0 Start: 01-31-2025 End: 01-31-2025 take 1 tablet by mouth in the morning hydrALAZINE Start: 01/31/25 9:32:00 AM EDT, Dose = 25 mg, = 1 tab(s), Oral, 0, 01/31/25 9:27:00 EDT Start Date: 01/31/25 Stop Date: 01/31/25 Status: Completed Medication Dispense Status: Completed Total Allowed Fills: 1 Fills Dispensed: 0 Start: 12-20-2024 hydrALAZINE 25 mg oral tablet Dose : 25 mg = 1 tab(s), Oral, TID, # 270 tab(s), 3 Refill(s), Pharmacy: [facility]/pharmacy #[id number], 165.1, cm, 12/18/24 18:33:00 EDT, Height, kg, 12/20/24 16:54:00 EDT, Dosing Weight Start Date: 12/20/24 Status: Ordered Medication Dispense Status: Completed Quantity: 270.0 Unit: tab(s) Total Allowed Fills: 4 Fills Dispensed: 0 Start: 12-20-2024 End: 12-20-2024 take 1 tablet by mouth in the evening hydrALAZINE Start: 12/20/24 7:31:00 PM EDT, Dose = 25 mg, = 1 tab(s), Oral, NOW, 12/20/24 19:31:00 EDT Start Date: 12/20/24 Stop Date: 12/20/24 Status: Completed Repeat number: 1 Start: 12-08-2024 take 50 mg by mouth three times daily 50 mg, oral, 3 times daily, First dose on Fri12/08/24 at 0910 Start: 04-07-2024 take 1 tablet by michael th three times daily hydrALAZINE (Apresoline) 100 mg tablet Take 1 tablet (100 mg) by mouth 3 times a day. 12/01/2024 Active Start: 03-16-2024 End: 04-07-2024 take 1 tablet by mouth twice daily Hydralazine 50 mg tablet Discontinued 50 mg PO TWICE A DAY March 16, 2024 12:00am April 07, 2024 9:24am Start: 03-08-2024 take 2 tablets by mo uth three times daily hydrALAZINE (APRESOLINE) 50 mg tablet Take 100 mg by mouth three times a day. 03/08/2024 Active Start: 03-08-2024 take 1 tablet by michael every twelve hours hydrALAZINE (APRESOLINE) 50 mg tablet Take 1 tablet by mouth every 12 hours. 03/08/2024 Active Start: 01-29-2023 End: 09-11-2023 take 1 tablet by mouth twice daily Hydralazine 10 mg tablet Discontinued 10 mg PO TWICE A DAY 60 January 29, 2023 12:00am September 11, 2023 10:13am Start: 10-22-2020 End: 08-08-2023 take 1 tablet by mouth three times daily Hydralazine 50 mg tablet Discontinued 50 mg PO THREE TIMES A DAY August 21, 2021 1:00am January 21, 2023 10:58am Start: 09-17-2014 End: 10-19-2014 take 1 tablet by mouth three times daily Hydralazine 25 MG tablet Discontinued 25 mg PO THREE TIMES A DAY 90 September 17, 2014 12:00am October 19, 2014 11:55am hydrALAZINE HCl - 25 MG Oral Tablet Quantity: 0 Refills: 0 Ordered: 14-Oct-2019 DO Active Comment on above: Take 50 mg by mouth three times daily. 0.5 ml HYDROmorphone hydrochloride 1 mg/ml prefilled syringe (1 source) Opioid Agonist Start: 12-09-19 End: 12-09-19 0.5 mg, intravenous, Once, On Fri12/08/24 at 0550, For 1 dose hydrOXYzine hydrochloride 25 mg oral tablet (20 sources) Antihistamine Start: 09-20-19 End: 02-04-20 take 1 tablet by mouth three times daily as needed Hydroxyzine Hcl 25 mg tablet Discontinued 25 mg PO THREE TIMES A DAY as needed for itching September 19, 2022 12:00am February 04, 2024 3:11pm Start: 08-26-2022 End: 10-01-2022 take 0.5 tablet by mouth three times daily as needed for anxiety hydrOXYzine HCl (ATARAX) 25 mg tablet Indications: SONJA (generalized anxiety disorder) Take 0.5 tablets by mouth three times daily as needed for anxiety. 30 tablet 1 10/01/2022 Suspended Comment on above: Take 0.5 tablets by mouth three times daily as needed for itching/rash. Take 0.5 tablets by mouth three times daily as needed for anxiety. levoFLOXacin 500 mg oral tablet (8 sources) Quinolone Antimicrobial Start: 2016 End: 2016 take 1 tablet by mouth once daily Levofloxacin 500 MG tablet Discontinued 500 mg PO DAILY July 22, 2016 1:00am July 29, 2016 4:29pm lisinopril 5 mg oral tablet (20 sources) Angiotensin Converting Enzyme Inhibitor Start: 2016 End: 2023 take 1 tablet by mouth once daily Lisinopril 5 mg tablet Discontinued 5 mg PO DAILY August 21, 2021 1:00am September 11, 2023 10:13am On Hold: hypotension Comment on above: 5 mg. Take 5 mg by mouth o nce daily. methylPREDNISolone 4 mg oral tablet (18 sources) Corticosteroid Start: 2021 End: 2022 methylPREDNISolone (MEDROL, CHETAN,) 4 mg Dose-Pack Use orally as directed. 21 tablet 02/26/2022 07/01/2022 Discontinued (Course of therapy completed) Comment on above: Use orally as direct ed. metoprolol tartrate 50 mg oral tablet (8 sources) beta-Adrenergic Marcela Start: 2015 End: 2015 take 1 tablet by mouth twice daily Metoprolol Tartrate 50 MG tablet Discontinued 50 mg PO TWICE A DAY September 06, 2015 12:00am September 07, 2015 4:46pm Multi Vitamin TABS (1 source) Multi Vitamin TA BS Refills: 0 Active Multi Vitamin TABS (8 sources) Multi Vitamin TA BS Quantity: 0 Refills: 0 Ordered: 14-Oct-2019 DO Active mycophenolate mofetil 250 mg oral capsule (16 sources) Start: 2012 End: 2013 take 1 capsule by mouth twice daily Mycophenolate Mofetil 250 MG capsule Discontinued 500 mg PO TWICE A DAY April 29, 2013 1:00am January 24, 2014 1:16pm Start: 04-29-2013 End: 01-24-2014 take 500 mg by mouth twice daily Mycophenolate Mofetil Discontinued 500 MG PO TWICE A DAY April 29, 2013 1:00am January 24, 2014 1:16pm Start: 04-18-2013 End: 04-29-2013 take 1 tablet by mouth twice daily Mycophenolate Mofetil 500 MG tablet Discontinued 500 mg PO TWICE A DAY April 18, 2013 12:00am April 29, 2013 5:31am nabumetone 500 mg oral tablet (3 sources) Nonsteroidal Anti-inflammatory Drug Start: 01-27-2022 End: 02-03-2022 nabumetone 500 mg oral tablet Dose : 1,000 mg = 2 tab(s), Oral, BID, # 28 tab(s), 0 Refill(s), Strain of muscle of left posterior lower leg Start Date: 01/27/22 Stop Date: 02/03/22 Status: Ordered NIFEdipine 90 mg osmotic 24 hr extended release oral tablet (20 sources) Dihydropyridine Calcium Channel Marcela Start: 06-19-2022 End: 03-03-2023 take 1 tablet by mouth once daily Nifedipine 90 mg tablet extended release 24hr Discontinued 90 mg PO DAILY March 03, 2023 2:27pm March 03, 2023 2:46pm Currently holding due to low BP Start: 05-29-2022 End: 06-19-2022 take 3 tablets by mouth once daily Nifedipine 30 mg tablet extended release Discontinued 90 mg PO DAILY May 29, 2022 12:24pm June 19, 2022 7:17pm Start: 05-29-2022 End: 06-19-2022 take 90 mg by mouth once daily Nifedipine Discontinued 90 MG PO DAILY May 29, 2022 12:24pm June 19, 2022 7:17pm Start: 08-21-2021 End: 05-29-2022 take 1 tablet by mouth once daily Nifedipine 30 mg tablet extended release Discontinued 30 mg PO DAILY August 21, 2021 1:00am May 29, 2022 12:24pm Start: 04-30-2021 End: 03-03-2023 take 1 tablet by mouth twice daily NIFEdipine XL (ADALAT CC) 30 mg 24 hr tablet Take 30 mg by mouth twice daily. 04/30/2021 03/03/2023 Discontinued (Discontinued by another Health Care Provider) Comment on above: Take 30 mg by mouth twice daily. perflutren lipid microspheres 1.3 mL in NaCl (PF) 0.9% 10 mL injection (DEFINITY) (6 sources) Start: 10-12-2020 End: 01-11-2022 perflutren lipid microspheres 1.3 mL in NaCl (PF) 0.9% 10 mL injection (DEFINITY) 125 ml sodium chloride 9 mg/ml prefilled syringe (6 sources) Start: 10-12-2020 End: 01-11-2022 sodium chloride 0.9 % (flush) 10 mL (BD POSIFLUSH) sulfamethoxazole 400 mg / trimethoprim 80 mg oral tablet (16 sources) Dihydrofolate Reductase Inhibitor Antibacterial, Sulfonamide Antimicrobial Start: 04-29-2013 End: 01-24-2014 Sulfamethoxazole-Trime thoprim (Bactrim 400-80 Mg Tablet) 1 EACH tablet Discontinued 1 {tbl} PO DAILY April 29, 2013 1:00am January 24, 2014 1:17pm Start: 04-18-2013 End: 04-29-2013 take 1 tablet by mouth once daily Bactrim 400-80 mg Tablet Discontinued 1 TABLET PO DAILY April 18, 2013 5:43am April 29, 2013 5:31am Start: 04-18-2013 End: 04-29-2013 Bactrim 400-80 mg Tablet Discontinued 1 {tbl} PO DAILY April 18, 2013 12:00am April 29, 2013 5:31am Start: 04-18-2013 End: 04-29-2013 take 1 tablet by mouth once daily Bactrim 400-80 mg Tablet Discontinued 1 TABLET PO DAILY April 17, 2013 11:00pm April 29, 2013 4:31am Start: 04-18-2013 End: 04-29-2013 take 1 tablet by mouth once daily Bactrim 400-80 mg Tablet Discontinued 1 TABLET PO DAILY April 18, 2013 12:00am April 29, 2013 5:31am suvorexant 10 mg oral tablet (1 source) Orexin Receptor Antagonist Start: 11-14-2020 End: 01-13-2021 take 1 tablet by mouth at bedtime as needed suvorexant (BELSOMRA) 10 mg tab Indications: Chronic insomnia Take 1 tablet by mouth at bedtime as needed for up to 60 days. For insomnia 30 tablet 1 11/14/2020 01/13/2021 tacrolimus 1 mg oral capsule (20 sources) Calcineurin Inhibitor Immunosuppressant Start: 04-29-2013 End: 01-24-2014 take 6 mg by mouth twice daily Tacrolimus 1 MG capsule Discontinued 6 mg PO TWICE A DAY April 29, 2013 1:00am January 24, 2014 1:17pm Start: 04-29-2013 End: 01-24-2014 take 6 mg by mouth twice daily Tacrolimus Discontinued 6 MG PO TWICE A DAY April 29, 2013 1:00am January 24, 2014 1:17pm Start: 04-18-2013 End: 04-29-2013 take 3 capsules by mouth once daily Tacrolimus 1 MG capsule Discontinued 3 mg PO DAILY April 18, 2013 12:00am April 29, 2013 5:30am Start: 04-18-2013 End: 04-29-2013 take 4 capsules by mouth at bedtime Tacrolimus 1 MG capsule Discontinued 4 mg PO AT BEDTIME April 18, 2013 12:00am April 29, 2013 5:31am Start: 04-18-2013 End: 04-29-2013 Tacrolimus (Protopic) 60 GM Oint...G. Discontinued April 18, 2013 12:00am April 29, 2013 5:30am Start: 04-18-2013 End: 04-29-2013 take 3 mg by mouth once daily Tacrolimus Discontinued 3 MG PO DAILY April 18, 2013 12:00am April 29, 2013 5:30am Start: 04-18-2013 End: 04-29-2013 take 4 mg by mouth at bedtime Tacrolimus Discontinued 4 MG PO AT BEDTIME April 18, 2013 12:00am April 29, 2013 5:31am Problems Active Problems Problem Classification Problem Date Documented Date Episodic/Chronic Acute and unspecified renal failure (19 sources) Chronic renal failure 03-01-2014 Chronic Comment on above: Cleared for surgery 04/26/15. Last hemodialysis 02/28/14, full run per pt Has history of two f alessio kidey transplants and prior peritoneal dialysis.Needs catheter for future dialysis. Allergic reactions (4 sources) Radiographic dye allergy status; Translations: [Allergy status to narcotic agent status] Onset: Episodic Anxiety disorders (20 sources) Anxiety; Translations: [Anxiety disorder, unspecified] Onset: 4 03-01-2014 Chronic Comment on above: active without cardi ac limitations, EKG NSR without changes suggestive for ischemia Attention-deficit, conduct, and disruptive behavior disorders (10 sources) Behavior showing reduced motor activity 08-24-2024 Episodic Bacterial infection; unspecified site (11 sources) History of methicillin resistant Staphylococcus aureus infection; Translations: [Personal history of Methicillin resistant Staphylococcus aureus infection] Onset: 5 05-13-2023 Episodic Chronic kidney disease (20 sources) End stage renal disease; Translations: [End stage renal disease] Onset: 3 10-25-2014 Chronic Comment on above: Last hemodialysis . Chronic obstructive pulmonary disease and bronchiectasis (20 sources) Chronic obstructive lung disease; Translations: [Chronic airway obstruction, not elsewhere classified] Onset: 6 08-02-2015 Chronic Chronic ulcer of skin (7 sources) Pressure ulcer stage 1; Translations: [Pressure ulcer of unspecified site, stage 1] Onset: 5 12-23-2024 Chronic Complication of device; implant or graft (20 sources) Kidney transplant failure; Translations: [Kidney transplant failure and rejection] Onset: 3 02-12-2017 Chronic Comment on above: Renal Txp failure x 2 secondary to non-complaince with treatments and therapies. Complication of device; implant or graft (20 sources) Complication of catheter; Translations: [Unspecified complication of internal prosthetic device, implant and graft, initial encounter] Onset: 3 07-01-2022 Episodic Complications of surgical procedures or medical care (8 sources) History of subtotal thyroidectomy; Translations: [Postprocedural hypothyroidism] Onset: 0 03-26-2021 Chronic Comment on above: Three and a half gla nd parathyroidectomy, bilateral cervical thymectomy Complications of surgical procedures or medical care (3 sources) Postprocedural hematoma of skin and subcutaneous tissue following other procedure; Translations: [Infection following a procedure, superficial incisional surgical site, initial encounter] Onset: 5 Episodic Conduction disorders (20 sources) Automatic implantable cardiac defibrillator in situ; Translations: [Automatic implantable cardiac defibrillator in situ] Onset: 5 04-26-2015 Chronic Comment on above: Patient states devic e has never fired. Device placed 01/2015 is a [employer] Itrevia 7 DR-T,model [id number];serial [id number] The device is a [email or web address].May use a magnet per cardiology clearance. Congestive heart failure; nonhypertensive (20 sources) Congestive heart failure; Translations: [Congestive heart failure, unspecified] Onset: 6 08-02-2015 Chronic Coronary atherosclerosis and other heart disease (20 sources) Coronary arteriosclerosis; Translations: [Atherosclerotic heart disease of [place] coronary artery without angina pectoris] Onset: 5 09-07-2024 Chronic Deficiency and other anemia (6 sources) Anemia of chronic disease; Translations: [Anemia in other chronic diseases classified elsewhere] 05-01-2023 Chronic Deficiency and other anemia (1 source) Anemia of chronic renal failure; Translations: [Anemia in chronic kidney disease] Chronic Deficiency and other anemia (1 source) Anemia in chronic kidney disease; Translations: [Anemia in chronic kidney disease] Onset: 5 Chronic Deficiency and other anemia (1 source) Anemia in other chronic diseases classified elsewhere; Translations: [Anemia in other chronic diseases classified elsewhere] Onset: 5 Chronic Deficiency and other anemia (20 sources) Anemia; Translations: [Anemia, unspecified] Onset: 3 03-01-2014 Episodic Deficiency and other anemia (1 source) Anemia, unspecified; Translations: [Anemia, unspecified] Onset: 5 Episodic Digestive congenital anomalies (20 sources) Malrotation of colon; 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 Fluid and electrolyte disorders (20 sources) Hyponatremia; Translations: [Hypo-osmolality and hyponatremia] Onset: 5 02-05-2018 Episodic Genitourinary symptoms and ill-defined conditions (20 sources) History of chronic renal impairment; Translations: [Personal history of other specified urinary system disorders] Onset: 3 07-01-2022 Episodic Headache; including migraine (20 sources) Migraine; Translations: [Migraine, unspecified, not intractable, without status migrainosus] Onset: 3 10-25-2014 Chronic Headache; including migraine (20 sources) Headache; Translations: [Headache] Onset: 3 10-25-2014 Episodic Heart valve disorders (20 sources) Aortic stenosis, non-rheumatic ; Translations: [Nonrheumatic aortic (valve) stenosis] Onset: 3 Chronic Heart valve disorders (20 sources) Systolic murmur; Translations: [Cardiac murmur, unspecified] Onset: 3 07-01-2022 Episodic Hypertension with complications and secondary hypertension (20 sources) Benign hypertensive renal disease; Translations: [Hypertensive chronic kidney disease with stage 5 chronic kidney disease or end stage renal disease] Onset: 5 10-05-2013 Chronic Intestinal obstruction without hernia (5 sources) Partial obstruction of small bowel; Translations: [Partial intestinal obstruction, unspecified as to cause] Onset: 5 12-08-2024 Episodic Malaise and fatigue (20 sources) Asthenia; Translations: [Weakness] Onset: 5 08-23-2014 Episodic Miscellaneous mental health disorders (20 sources) Psychophysiologic insomnia; Translations: [Psychophysiologic insomnia] Onset: 1 11-14-2020 Chronic Mood disorders (20 sources) Depressive disorder; Translations: [Recurrent major depressive episodes, moderate ] Onset: 7 10-25-2014 Chronic Nonspecific chest pain (20 sources) Chest wall pain; Translations: [Other chest pain] Episodic Open wounds of extremities (2 sources) Laceration of forearm; Translations: [Laceration without foreign body of left forearm, initial encounter] Onset: 5 Episodic Other aftercare (3 sources) Encounter for therapeutic drug level monitoring; Translations: [Encounter for therapeutic drug level monitoring] Onset: 5 Episodic Other aftercare (1 source) snf (current) use of inhaled steroids; Translations: [snf (current) use of inhaled steroids] Onset: 5 Episodic Other aftercare (3 sources) Other sourcer (current) drug therapy; Translations: [Other skilled nursing (current) drug therapy] Onset: 5 Episodic Other aftercare (1 source) snf (current) use of bisphosphonates; Translations: [snf (current) use of bisphosphonates] Onset: 5 Episodic Other aftercare (1 source) snf (current) use of aspirin; Translations: [student counselor (current) use of aspirin] Onset: 5 Episodic Other and ill-defined heart disease (20 sources) Left ventricular systolic dysfunction; Translations: [Heart disease, unspecified] Onset: 6 07-01-2022 Chronic Other circulatory disease (20 sources) Acquired arteriovenous fistula; Translations: [Arteriovenous fistula, acquired] Onset: 3 Chronic Other circulatory disease (1 source) Carotid bruit; Translations: [Other specified symptoms and signs involving the circulatory and respiratory systems] Episodic Other circulatory disease (1 source) Low blood pressure; Translations: [Hypotension, unspecified] 01-20-2023 Episodic Other circulatory disease (2 sources) Vascular disorder; Translations: [Unspecified disorder of circulatory system] 05-23-2023 Episodic Other congenital anomalies (3 sources) Hereditary disorder of musculoskeletal system; Translations: [Other specified congenital malformation syndromes, not elsewhere classified] 11-11-2023 Chronic Other connective tissue disease (1 source) Foot pain; Translations: [Pain in unspecified foot] Onset: 3 Episodic Other connective tissue disease (1 source) Musculoskeletal symptom; Translations: [Other symptoms and signs involving the musculoskeletal system] Onset: 3 Episodic Other connective tissue disease (11 sources) Wrist sign 01-16-2023 Episodic Other connective tissue disease (10 sources) Triggering of digit 02-20-2024 Episodic Other diseases of veins and lymphatics (1 source) Obstruction of superior vena cava; 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] 05-23-2023 Episodic Other diseases of veins and lymphatics (3 sources) Inferior vena cava stenosis; 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] 11-11-2023 Episodic Other ear and sense organ disorders (9 sources) Impacted cerumen 06-10-2025 Episodic Other endocrine disorders (1 source) Hyperparathyroidism, unspecified; Translations: [Hyperparathyroidism, unspecified] Onset: 5 Chronic Other gastrointestinal disorders (20 sources) Diarrhea; Translations: [Diarrhea, unspecified] Onset: 2 Episodic Other injuries and conditions due to external causes (2 sources) Traumatic AND/OR non-traumatic injury; Translations: [Other injury of unspecified body region, initial encounter] Onset: 2 Episodic Other injuries and conditions due to external causes (10 sources) History of fall 08-24-2024 Episodic Other injuries and conditions due to external causes (10 sources) Injury of ankle; Translations: [Unspecified injury of unspecified ankle, initial encounter] Onset: 5 Episodic Other injuries and conditions due to external causes (1 source) History of falling; Translations: [History of falling] Onset: 5 Episodic Other injuries and conditions due to external causes (2 sources) Tear of skin 03-11-2025 Episodic Other injuries and conditions due to external causes (1 source) Other injury of unspecified body region, initial encounter; Translations: [Other injury of unspecified body region, initial encounter] Onset: 5 Episodic Other lower respiratory disease (20 sources) Dyspnea on exertion 08-02-2015 Episodic Other lower respiratory disease (20 sources) Dyspnea; Translations: [Shortness of breath] Onset: 3 08-23-2014 Episodic Other lower respiratory disease (2 sources) H/O: pneumonia; Translations: [Personal history of pneumonia (recurrent)] Episodic Other lower respiratory disease (1 source) Dyspnea, unspecified; Translations: [Other respiratory abnormalities] Episodic Other lower respiratory disease (1 source) Other disorders of lung; Translations: [Restrictive lung disease] Onset: 3 Episodic Other lower respiratory disease (1 source) Cough; Translations: [Acute cough] 05-30-2024 Episodic Other nervous system disorders (20 sources) Uremic encephalopathy; 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] Onset: 3 07-01-2022 Chronic Other nutritional; endocrine; and metabolic disorders (8 sources) Hyperphosphatemia; Translations: [Other disorders of phosphorus metabolism] 02-05-2018 Chronic Other nutritional; endocrine; and metabolic disorders (16 sources) Hypocalcemia; Translations: [Hypocalcemia] 02-05-2018 Chronic Other nutritional; endocrine; and metabolic disorders (20 sources) H/O: endocrine disorder; Translations: [Personal history of other endocrine, nutritional and metabolic disease] Onset: 3 08-02-2015 Episodic Comment on above: HYPERPARATHYROIDISM - DR HERNANDEZ NOTES Other nutritional; endocrine; and metabolic disorders (10 sources) Overweight in adulthood with body mass index of 25 or more but less than 30 01-14-2024 Episodic Other screening for suspected conditions (not mental disorders or infectious disease) (20 sources) Electrocardiogram abnormal; Translations: [Abnormal electrocardiogram [ECG] [EKG]] Onset: 3 07-01-2022 Episodic Other upper respiratory disease (1 source) Epistaxis; Translations: [Left-sided epistaxis] Onset: 5 Episodic Other upper respiratory infections (2 sources) Acute upper respiratory infection, unspecified; Translations: [Viral upper respiratory tract infection] Onset: 5 11-24-2024 Episodic Otitis media and related conditions (11 sources) Other acute nonsuppurative otitis media, left ear; Translations: [Acute secretory otitis media] Onset: 5 11-24-2024 Episodic La-; endo-; and myocarditis; cardiomyopathy (except that caused by tuberculosis or sexually transmitted disease) (20 sources) Cardiomyopathy; Translations: [Other primary cardiomyopathies] Onset: 3 08-02-2015 Chronic Comment on above: Echo 12/2014 EF 20%. Echo 09/2023 EF 30% Peripheral and visceral atherosclerosis (9 sources) Peripheral vascular disease, unspecified; Translations: [Peripheral vascular disease, unspecified] Onset: 4 11-12-2023 Chronic Pleurisy; pneumothorax; pulmonary collapse (20 sources) Pleural effusion; Translations: [Pleural effusion, not elsewhere classified] Onset: 2 Resolved: 3 Episodic Pneumonia (except that caused by tuberculosis or sexually transmitted disease) (20 sources) Pneumonia; Translations: [Pneumonia, unspecified organism] Onset: 3 10-28-2014 Episodic Pulmonary heart disease (2 sources) Pulmonary hypertension; Translations: [Pulmonary hypertension, unspecified] Onset: 5 Chronic Residual codes; unclassified (19 sources) Device in situ 08-02-2015 Episodic Comment on above: dialysis cath right chest Residual codes; unclassified (20 sources) Noncompliance with treatment; Translations: [Patient's noncompliance with other medical treatment and regimen] Onset: 7 02-12-2017 Episodic Residual codes; unclassified (20 sources) Edema of lower extremity; Translations: [Localized edema] Onset: 3 Resolved: 3 07-01-2022 Episodic Residual codes; unclassified (8 sources) Tobacco user; Translations: [Tobacco use] 07-13-2019 Episodic Residual codes; unclassified (8 sources) Noncompliance with medication regimen; Translations: [Patient's other noncompliance with medication regimen] 03-26-2021 Episodic Residual codes; unclassified (1 source) Procedure and treatment not carried out because of patient's decision for other reasons; Translations: [Procedure and treatment not carried out because of patient's decision for other reasons] Onset: 5 Episodic Residual codes; unclassified (1 source) Family history of ischemic heart disease and other diseases of the circulatory system; Translations: [Family history of ischemic heart disease and other diseases of the circulatory system] Onset: 5 Episodic Respiratory failure; insufficiency; arrest (adult) (20 sources) Acute hypoxemic respiratory failure; Translations: [Acute respiratory failure with hypoxia] Onset: 3 Resolved: 3 07-01-2022 Episodic Screening and history of mental health and substance abuse codes (1 source) Personal history of nicotine dependence; Translations: [Personal history of nicotine dependence] Onset: 5 Episodic Spondylosis; intervertebral disc disorders; other back problems (14 sources) Sciatica; Translations: [Sciatica, unspecified side] Onset: 3 Episodic Sprains and strains (20 sources) Shoulder strain; Translations: [Strain of unspecified muscle, fascia and tendon at shoulder and upper arm level, right arm, initial encounter] Onset: 2 Episodic Substance-related disorders (20 sources) Cigarette smoker ; Translations: [Tobacco user] Onset: 6 08-02-2015 Chronic Superficial injury; contusion (8 sources) Contusion of hand; Translations: [Contusion of right hand, initial encounter] 02-05-2018 Episodic Syncope (8 sources) Syncope and collapse; Translations: [Syncope and collapse] 02-05-2018 Episodic Unclassified (19 sources) Eye glasses, device (physical object) 10-25-2014 Unclassified (19 sources) Infection control status 04-26-2015 Comment on above: MRSA Unclassified (19 sources) Patient noncompliance - general 08-02-2015 Comment on above: NOTED ON DR HERNANDEZ'S OFFICE NOTES Unclassified (1 source) New Patient Onset: 2 Unclassified (1 source) ENCOUNTER FOR SCREENING FOR COVID-19; Translations: [ENCOUNTER FOR SCREENING FOR COVID-19] Onset: 2 Unclassified (10 sources) Finding related to ability to use transport 02-20-2024 Past or Other Problems Problem Classification Problem Date Documented Date Episodic/Chronic Abdominal pain (20 sources) Abdominal pain; Translations: [Unspecified abdominal pain] Onset: 10-01-2013 07-30-2015 Episodic Coma; stupor; and brain damage (20 sources) Daytime somnolence; Translations: [Somnolence] Onset: 08-18-2015 08-18-2015 Episodic Diabetes mellitus without complication (20 sources) High hemoglobin A1c level; Translations: [Other abnormal glucose] Onset: 10-13-2020 10-13-2020 Episodic Immunizations and screening for infectious disease (20 sources) Methicillin resistant staphylococcus aureus carrier; Translations: [Carrier or suspected carrier of Methicillin resistant Staphylococcus aureus] Onset: 02-28-2014 02-28-2014 Episodic Nausea and vomiting (20 sources) Vomiting; Translations: [Vomiting, unspecified] Onset: 10-11-2021 Episodic Other injuries and conditions due to external causes (1 source) Unspecified injury of unspecified ankle, initial encounter; Translations: [Unspecified injury of unspecified ankle, initial encounter] Onset: 12-06-2024 Episodic Other lower respiratory disease (20 sources) Snoring; Translations: [Snoring] Onset: 08-18-2015 08-18-2015 Episodic Other lower respiratory disease (4 sources) Shortness of breath; Translations: [Shortness of breath] Onset: 02-04-2022 Episodic Other nervous system disorders (17 sources) Postoperative pain ; Translations: [Other acute postprocedural pain] Onset: 08-07-2023 08-07-2023 Episodic Unclassified (4 sources) Patient encounter status; Translations: [Pre-transplant evaluation for kidney transplant] NEGATED: Highlighted row has not occurred!Residual codes; unclassified (20 sources) Disease Episodic Results Test Name Value Interpretation Reference [facility] XR CHEST 2 VIEWSon XR CHEST 2 VIEWS ORIGINAL HISTORY: Cough, shortness of breath COMPARISON: 04 January 2025 FINDINGS: A left ICD is unchanged. There is patchy airspace disease in the right lower lobe. There is a small right effusion. The pulmonary vasculature is unremarkable in appearance. The cardiac silhouette is enlarged. IMPRESSION: Right consolidation and small right effusion. Interpreted by: Aj Dhaliwal MD Preliminary Report By: Aj Dhaliwal MD Electronically signed By Aj Dhaliwal MD Dictated Date: 03/11/2025 8:56:24 AM Prelim Date: 03/11/2025 8:57:16 AM Sign Date: 03/11/2025 8:57:16 AM Ordering Provider: ROBERT Street [facility] ABO and Rh group panel (Bld) on 02-15-2025 ABO group Nom (Bld) O Normal [facility] Comment on above: Performed By: #### 5 7021-8 #### MARTINEZ Al ([id number]) [facility] ([facility]) [address] [place] [address] 59712 D Ag Ql (Bld) Positive Normal [facility] Comment on above: Performed By: #### 5 7021-8 #### MARTINEZ Al ([id number]) [facility] ([facility]) [address] [place] [address] 13701 Amylaseon 02-15-2025 Amylase [Catalytic activity/Vol] 74 U/L Normal 29-103 [facility] Comment on above: Performed By: #### 5 7021-8 #### MARTINEZ Al ([id number]) [facility] ([facility]) [address] [place] [address] 41051 C peptideon 02-15-2025 C peptide [Mass/Vol] 7.3 ng/mL High 0.7-3.9 [facility] Comment on above: Performed By: #### 1 9123-9 #### MARTINEZ Al ([id number]) [facility] ([facility]) [address] [place] [address] 34690 CBC panel Auto (Bld)on 02-15 Erythrocyte distribution width (RBC) [Ratio] 16.5 % High 11.5-14.5 [facility] Comment on above: Performed By: #### 5 8410-2 #### MARTINEZ Al ([id number]) [facility] ([facility]) [address] [place] [address] 95289 Hematocrit (Bld) [Volume fraction] 21.9 % Low 41.0-52.0 [facility] Comment on above: Performed By: #### 5 8410-2 #### MARTINEZ Al ([id number]) [facility] ([facility]) [address] [place] [address] 73507 Hemoglobin (Bld) [Mass/Vol] 6.7 g/dL Low 13.5-17.5 [facility] Comment on above: Performed By: #### 5 8410-2 #### MARTINEZ Al ([id number]) [facility] ([facility]) [address] [place] [address] 53187 MCH (RBC) [Entitic mass] 28.2 pg Normal 26.0-34.0 [facility] Comment on above: Performed By: #### 5 8410-2 #### MARTINEZ Al ([id number]) [facility] ([facility]) [address] [place] [address] 83579 MCHC (RBC) [Mass/Vol] 30.6 g/dL Low 32.0-36.0 [facility] Comment on above: Performed By: #### 5 8410-2 #### MARTINEZ Al ([id number]) [facility] ([facility]) [address] [place] [address] 16260 MCV (RBC) [Entitic vol] 92 fL Normal 80-100 [facility] Comment on above: Performed By: #### 5 8410-2 #### MARTINEZ Al ([id number]) [facility] ([facility]) [address] [place] [address] Nucleated RBC/100 WBC (Bld) [Ratio] 0.0 /100 WBCs Normal 0.0-0.0 [facility] Comment on above: Performed By: #### 5 8410-2 #### MARTINEZ Al ([id number]) [facility] ([facility]) [address] [place] [address] 94258 Platelets (Bld) [#/Vol] 204 x10*3/uL Normal 150-450 [facility] Comment on above: Performed By: #### 5 8410-2 #### MARTINEZ Al ([id number]) [facility] ([facility]) [address] [place] [address] 06077 RBC (Bld) [#/Vol] 2.38 x10*6/uL Low 4.50-5.90 [facility] Comment on above: Performed By: #### 5 8410-2 #### MARTINEZ Al ([id number]) [facility] ([facility]) [address] [place] [address] 19846 WBC (Bld) [#/Vol] 5.3 x10*3/uL Normal 4.4-11.3 [facility] Comment on above: Performed By: #### 5 8410-2 #### MARTINEZ Al ([id number]) [facility] ([facility]) [address] [place] [address] 19624 Coagulation tissue factor in ducedon 02-15-2025 PT Coag (PPP) [Time] 12.1 s Normal 9.8-12.4 [facility] Comment on above: Performed By: #### 5 902-2 #### MARTINEZ TALBERT L ([id number]) [facility] ([facility]) [address] [place] [address] Creatinineon 02-15-2025 Creatinine [Mass/Vol] 16.54 mg/dL High 0.50-1.30 [facility] Comment on above: Performed By: #### 5 7021-8 #### MARTINEZ Al ([id number]) [facility] ([facility]) [address] [place], [place] [address] Creatinine [Mass/Vol]on 01-22 Glomerular filtration rate 3 mL/min/1.73m*2 Low >60 [facility] Comment on above: Result Comment: Calc ulations of estimated GFR are performed using the 2020 CKD-EPI Study Refit equation without the race variable for the IDMS-Traceable creatinine methods. https://jasn.asnjournals.org/content/early//ASN.905010 5258 Performed By: #### 5 7021-8 #### MARTINEZ Al ([id number]) [facility] ([facility]) [address] [place] [address] Cytomegalovirus Ab.IgG avidi tyon 02-15-2025 CMV IgG avidity IA [Ratio] Reactive Abnormal Nonreactive [facility] Comment on above: Performed By: #### 1 9123-9 #### MARTINEZ Al ([id number]) [facility] ([facility]) [address] [place] [address] DRUG PROFILE 9, BLOOD W/ REF BOAZ TO CONFIRMATIONon 02-15-2025 Amphetamines Screen Ql Negative Normal [facility] Comment on above: Result Comment: Pres umptively Negative by immunoassay. Testing by mass spectrometry is available on request. Interpretive Information: Amphetamines Screen, S/P Methodology: Immunoassay Positive Cutoff: 20 ng/mL Performed By: #### 2 4323-8 #### MARTINEZ Al ([id number]) [facility] ([facility]) [address] [place], [place] [address] Annotation comment [Interpretation] Narrative See Note Normal [facility] Comment on above: Result Comment: Inte rpretive Information: Drug Screen with Reflex to Quant S/P Presumptive negative results for drug(s) and/or drug metabolite(s) may indicate non-compliance, inappropriate timing of specimen collection relative to drug administration, poor drug absorption, or limitations of testing. The concentration at which the screening test can detect a drug or metabolite varies within a drug class. For medical purposes only; not valid for forensic use. This test was developed and its performance characteristics determined by [employer]. It has not been cleared or approved by the [place] Food and Drug Administration. This test was performed in a CLIA certified laboratory and is intended for clinical purposes. Performed By: [facility] [address] [place] [address] [employer] Electrician Helper: Waqas Nelson MD, PhD CLIA Number: [id number] Performed By: #### 2 4323-8 #### MARTINEZ TALBERT L ([id number]) [facility] ([facility]) [address] [place] [address] Barbiturates Screen Ql Negative [facility] Comment on above: Result Comment: Pres umptively Negative by immunoassay. Testing by mass spectrometry is available on request. Interpretive Information: Barbiturates Screen, S/P Methodology: Immunoassay Positive Cutoff: 50 ng/mL Performed By: #### 2 4323-8 #### MARTINEZ SCHMOTZER L ([id number]) [facility] ([facility]) [address] [place] [address] Benzodiazepines Screen Ql Negative [facility] Comment on above: Result Comment: Pres umptively Negative by immunoassay. Testing by mass spectrometry is available on request. Interpretive Information: Benzodiazepines Screen, S/P Methodology: Immunoassay Positive Cutoff: 50 ng/mL Performed By: #### 2 4323-8 #### MARTINEZ CERDAMOTZER L ([id number]) [facility] ([facility]) [address] [place], [place] [address] Buprenorphine [Mass/Vol] Negative [facility] Comment on above: Result Comment: Pres umptively Negative by immunoassay. Testing by mass spectrometry is available on request. Interpretive Information: Buprenorphine Screen, S/P Methodology: Immunoassay Positive Cutoff: 1 ng/mL Performed By: #### 2 4323-8 #### MARTINEZ CERDAMOTZER L ([id number]) [facility] ([facility]) [address] [place] [address] Cannabinoids Screen Ql Negative [facility] Comment on above: Result Comment: Pres umptively Negative by immunoassay. Testing by mass spectrometry is available on request. Interpretive Information: Carboxy-THC Screen, S/P Methodology: Immunoassay Positive Cutoff: 20 ng/mL This test does not distinguish between the delta-8 and delta-9 forms of Carboxy-THC or their metabolites. Performed By: #### 2 4323-8 #### MARTINEZ Al ([id number]) [facility] ([facility]) [address] [place] [address] Cocaine Screen Ql Negative Normal [facility] Comment on above: Result Comment: Pres umptively Negative by immunoassay. Testing by mass spectrometry is available on request. Interpretive Information: Cocaine Screen, S/P Methodology: Immunoassay Positive Cutoff: 20 ng/mL Performed By: #### 2 4323-8 #### MARTINEZ CERDAMOTZER L ([id number]) [facility] [place] [address] Methadone Screen Ql Negative Normal [facility] Comment on above: Result Comment: Pres umptively Negative by immunoassay. Testing by mass spectrometry is available on request. Interpretive Information: Methadone Screen, S/P Methodology: Immunoassay Positive Cutoff: 25 ng/mL Performed By: #### 2 4323-8 #### MARTINEZ CERDAMOTZER L ([id number]) [facility] ([place] [address] Methamphetamine Ql Negative Normal [facility] Comment on above: Result Comment: Pres umptively Negative by immunoassay. Testing by mass spectrometry is available on request. Interpretive Information: Methamphetamine Screen, S/P Methodology: Immunoassay Positive Cutoff: 20 ng/mL Performed By: #### 2 4323-8 #### MARTINEZ CERDAMOTZER L ([id number]) [facility] ([facility]) [address] [place] [address] Opiates Screen Ql Negative Normal [facility] Comment on above: Result Comment: Pres umptively Negative by immunoassay. Testing by mass spectrometry is available on request. Interpretive Information: Opiates Screen, S/P Methodology: Immunoassay Positive Cutoff: 20 ng/mL Performed By: #### 2 4323-8 #### MARTINEZ SCHMOTZER L ([id number]) [facility] ([facility]) [address] [place] [address] oxyCODONE Ql Negative Normal [facility] Comment on above: Result Comment: Pres umptively Negative by immunoassay. Testing by mass spectrometry is available on request. Interpretive Information: Oxycodone/Oxymorphone Screen, S/P Methodology: Immunoassay Positive Cutoff: 20 ng/mL Performed By: #### 2 4323-8 #### MARTINEZ Al ([id number]) [facility] ([facility]) [address] [place] [address] Phencyclidine Screen Ql Negative Normal [facility] Comment on above: Result Comment: Pres umptively Negative by immunoassay. Testing by mass spectrometry is available on request. Interpretive Information: Phencyclidine Screen, S/P Methodology: Immunoassay Positive Cutoff: 10 ng/mL Performed By: #### 2 4323-8 #### MARTINEZ Al ([id number]) [facility] ([facility]) [address] [place] [address] YADIEL-DAVALOS VIRUS ANTIBODY PANELon 02-15-2025 EBV capsid IgG IA Qn (S) Positive Abnormal Negative [facility] Comment on above: Order Comment: EBV I NTERPRETATION CHARTPRIMARY ACUTEVCA-IGG: +/-VCA-IGM: +/-EA-IGG: +/-NA-IGG: -LATE ACUTEVCA-IGG: +VCA-IGM: +/-EA-IGG: +/-NA-IGG: +/-RECOVERINGVCA-IGG: +VCA-IGM: -EA-IGG: +NA-IGG: -PREVIOUS INFECTIONVCA-IGG: +VCA-IGM: -EA-IGG: -NA-IGG: +/- Performed By: #### 1 9123-9 #### MARTINEZ Al ([id number]) [facility] ([facility]) [address] [place] [address] EBV capsid IgM IA Qn (S) Negative Normal Negative [facility] Comment on above: Order Comment: EBV I NTERPRETATION CHARTPRIMARY ACUTEVCA-IGG: +/-VCA-IGM: +/-EA-IGG: +/-NA-IGG: -LATE ACUTEVCA-IGG: +VCA-IGM: +/-EA-IGG: +/-NA-IGG: +/-RECOVERINGVCA-IGG: +VCA-IGM: -EA-IGG: +NA-IGG: -PREVIOUS INFECTIONVCA-IGG: +VCA-IGM: -EA-IGG: -NA-IGG: +/- Performed By: #### 1 9123-9 #### MARTINEZ Al ([id number]) [facility] ([facility]) [address] [place] [address] EBV early IgG Ql (S) Positive Abnormal Negative [facility] Comment on above: Order Comment: EBV I NTERPRETATION CHARTPRIMARY ACUTEVCA-IGG: +/-VCA-IGM: +/-EA-IGG: +/-NA-IGG: -LATE ACUTEVCA-IGG: +VCA-IGM: +/-EA-IGG: +/-NA-IGG: +/-RECOVERINGVCA-IGG: +VCA-IGM: -EA-IGG: +NA-IGG: -PREVIOUS INFECTIONVCA-IGG: +VCA-IGM: -EA-IGG: -NA-IGG: +/- Performed By: #### 1 9123-9 #### MARTINEZ Al ([id number]) [facility] ([facility]) [address] [place] [address] EBV nuclear Ab Ql (S) Positive Abnormal Negative [facility] Comment on above: Order Comment: EBV I NTERPRETATION CHARTPRIMARY ACUTEVCA-IGG: +/-VCA-IGM: +/-EA-IGG: +/-NA-IGG: -LATE ACUTEVCA-IGG: +VCA-IGM: +/-EA-IGG: +/-NA-IGG: +/-RECOVERINGVCA-IGG: +VCA-IGM: -EA-IGG: +NA-IGG: -PREVIOUS INFECTIONVCA-IGG: +VCA-IGM: -EA-IGG: -NA-IGG: +/- Performed By: #### 1 9123-9 #### MARTINEZ Al ([id number]) [facility] ([facility]) [address] [place] [address] FLOW AUTOCROSSMATCHon 2024 FLOW AUTOCROSSMATCH Normal [facility] Comment on above: Order Comment: Test performed at:[facility] LaboratoryW.[facility], [address] [place] [address] Performed By: #### 1 9123-9 #### MARTINEZ Al ([id number]) [facility] ([facility]) [address] [place] [address] HLA RESULTS See Attached Normal [facility] Comment on above: Order Comment: Test performed at:[facility] and Immunogenetics LaboratoryWKyle [facility], [address] [place] [address] Performed By: #### 1 9123-9 #### MARTINEZ Al ([id number]) [facility] ([facility]) [address] [place] [address] Performed By: #### 2 4323-8 #### MARTINEZ Al ([id number]) [facility] ([facility]) [address] [place] [address] HIV 1+2 Ab+HIV1 p24 Agon HIV 1+2 Ab+HIV1 p24 Ag IA Ql Non-Reactive Normal Nonreactive [facility] Comment on above: Order Comment: HIV A g/Ab screen is performed using the Siemens [employer] HIV Ag/Ab Combo assay which detects the presence of HIV p24 antigen as well as antibodies to HIV-1 (Group M and O) and HIV-2.No laboratory evidence of HIV infection. If acute HIV infection is suspected, consider testing for HIV RNA by PCR (viral load). Performed By: #### 5 7021-8 #### MARTINEZ Al ([id number]) [facility] ([facility]) [address] [place] [address] HLA DNA TYPE PANELon 025 HLA-A AND B AND C (class I) typing panel Normal [facility] Comment on above: Order Comment: Test performed at:[facility] and Immunogenetics Laboratory.[facility], [address]th [place] [id number] Performed By: #### 2 4323-8 #### MARTINEZ Al ([id number]) [facility] ([facility]) [address] [place] [address] 42536 HLA-DP2 Ql (Bld/Tiss) Normal [facility] Comment on above: Order Comment: Test performed at:[facility] and [facility]ogenetics Laboratory.[facility], [address] [place] [id number] Performed By: #### 2 4323-8 #### MARTINEZ Al ([id number]) [facility] ([facility]) [address] [place], [place] [address] HLA-DQB1 High resolution Nom (Bld/Tiss) Normal [facility] Comment on above: Order Comment: Test performed at:[facility] and Immunogenetics LaboratoryW.[facility], [address] [place], [place] [address] Performed By: #### 2 4323-8 #### MARTINEZ Al ([id number]) [facility] ([facility]) [address] [place], [place] [address] HLA-DRB1 High resolution Nom (Bld/Tiss) Normal [facility] Comment on above: Order Comment: Test performed at:[facility] and [facility]etics Laboratory.[facility], [address] [place], [place] [address] Performed By: #### 2 4323-8 #### MARTINEZ Al ([id number]) [facility] ([facility]) [address] [place] [address] 26449 HLA NEW KIDNEY,K/P EVALUATIO N PANELon 02-15-2025 FLOW AUTOCROSSMATCH Normal [facility] Comment on above: Order Comment: Test performed at:[facility] and Immunogenetics LaboratoryKyle [facility], [address] [place], [place] [phone] performed at:[facility], [address] [place] [phone] Performed By: #### 1 9123-9 #### MARTINEZ Al ([id number]) [facility] ([facility]) [address] [place] [address] 06968 HLA CLASS I AB SCREEN, Normal [facility] Comment on above: Order Comment: Test performed at:[facility] and Immunogenetics LaboratoryW.[facility], [address] [place] [id number] performed at:[facility] Laboratory.[facility], [address] [place] [phone] Performed By: #### 1 9123-9 #### MARTINEZ Al ([id number]) [facility] ([facility]) [address] [place] [address] HLA CLASS II AB SCREEN, Normal [facility] Comment on above: Order Comment: Test performed at:[facility] and Immunogenetics LaboratoryW.[facility], [address] [place] [phone] performed at:[facility], [address] [place] [phone] Performed By: #### 1 9123-9 #### MARTINEZ Al ([id number]) [facility] ([facility]) [address] [place], [place] [address] HLA RESULTS Collection only Normal [facility] Comment on above: Order Comment: Test performed at:[facility] and Immunogenetics LaboratoryA[facility], [address] [place] [id number] performed at:[facility] and Immunogen[facility] LaboratoryA[facility], [address] [place] [phone] Performed By: #### 1 9123-9 #### MARTINEZ Al ([id number]) [facility] ([facility]) [address] [place] [address] 62417 HLA-A AND B AND C (class I) typing panel Normal [facility] Comment on above: Order Comment: Test performed at:[facility] and [facility] Laboratory.[facility], [address] [address]Psiw performed at:[facility] and Immunogenetics LaboratoryA[facility], [address] [place] [phone] Performed By: #### 1 9123-9 #### MARTINEZ Al ([id number]) [facility] ([facility]) [address] [place], [place] [address] HLA-DP2 Ql (Bld/Tiss) Normal [facility] Comment on above: Order Comment: Test performed at:[facility] and Immunogenetics LaboratoryW.[facility], [address] [place], [place] [phone] performed at:[facility] and [facility]ogen[facility] LaboratoryA[facility], [address] [place], [place] [address] Performed By: #### 1 9123-9 #### MARTINEZ Al ([id number]) [facility] ([facility]) [address] [place], [place] [address] HLA-DQB1 High resolution Nom (Bld/Tiss) Normal [facility] Comment on above: Order Comment: Test performed at:[facility] and [facility] LaboratoryA[facility], [address] [place] [address]Rwrv performed at:[facility] and [facility]ogen[facility] LaboratoryA[facility], [address] [place], [place] [address] Performed By: #### 1 9123-9 #### MARTINEZ Al ([id number]) [facility] ([facility]) [address] [place], [place] [address] HLA-DRB1 High resolution Nom (Bld/Tiss) Normal [facility] Comment on above: Order Comment: Test performed at:[facility] and Immunogenetics LaboratoryKyle [facility], [address] [place], [place] [address]Test performed at:[facility] and Immunogenetics LaboratoryK[facility], [address] [place], [place] [address] Performed By: #### 1 9123-9 #### MARTINEZ Al ([id number]) [facility] ([facility]) [address] [place], [place] [address] HLA TRANSPLANT ANTIBODY PANE Deng 02-15-2025 HLA-A+B+C (class I) Ab (S) Normal [facility] Comment on above: Order Comment: Test performed at:[facility] and Immunogenetics LaboratoryKyle [facility], [address] [place] [address] Performed By: #### 2 4323-8 #### MARTINEZ Al ([id number]) [facility] ([facility]) [address] [place], [place] [address] HLA-DP+DQ+DR (class II) Ab (S) Normal [facility] Comment on above: Order Comment: Test performed at:[facility] and Immunogenetics LaboratoryK[facility], [address] [place], [place] [address] Performed By: #### 2 4323-8 #### MARTINEZ Al ([id number]) [facility] ([facility]) [address] [place] [address] HbA1c (Bld) [Mass fraction]o n 02-15-2025 Average glucose Estimated from glycated hemoglobin (Bld) [Mass/Vol] 114 mg/dL Normal Not Established [facility] Comment on above: Order Comment: Diagn osis of Diabetes-Adults Non-Diabetic: < or = 5.6% Increased risk for developing diabetes: 5.7-6.4% Diagnostic of diabetes: > or = 6.5% Performed By: #### 4 548-4 #### MARTINEZ Al ([id number]) [facility] ([facility]) [address] [place] [address] Hemoglobin A1c/Hemoglobin.to tiffany 02-15-2025 HbA1c (Bld) [Mass fraction] 5.6 % Normal See comment [facility] Comment on above: Order Comment: Diagn osis of Diabetes-Adults Non-Diabetic: < or = 5.6% Increased risk for developing diabetes: 5.7-6.4% Diagnostic of diabetes: > or = 6.5% Performed By: #### 4 548-4 #### MARTINEZ Al ([id number]) [facility] ([facility]) [address] [place] [address] 87324 Hepatic function 2000 panelo n 02-15-2025 Albumin BCP dye [Mass/Vol] 4.2 g/dL Normal 3.4-5.0 [facility] Comment on above: Performed By: #### 5 7021-8 #### MARTINEZ Al ([id number]) [facility] ([facility]) [id number] [place] [address] 47131 ALP [Catalytic activity/Vol] 59 U/L Normal 33-120 [facility] [facility] Comment on above: Performed By: #### 5 7021-8 #### MARTINEZ Al ([id number]) [facility] ([facility]) [address] [place] [address]198 ALT With P-5'-P [Catalytic activity/Vol] 23 U/L Normal 10-52 [facility] Comment on above: Result Comment: Elana ents treated with Sulfasalazine may generate falsely decreased results for ALT. Performed By: #### 5 7021-8 #### MARTINEZ Al ([id number]) [facility] ([facility]) [id number] [place] [address] 65288 AST With P-5'-P [Catalytic activity/Vol] 23 U/L Normal 9-39 [facility] Comment on above: Performed By: #### 5 7021-8 #### MARTINEZ Al ([id number]) [facility] ([facility]) [address] [place] [address] 61766 Bilirubin [Mass/Vol] 0.4 mg/dL Normal 0.0-1.2 [facility] Comment on above: Performed By: #### 5 7021-8 #### MARTINEZ Al ([id number]) [facility] ([facility]) [address] [place], [place] [address] Bilirubin.direct [Mass/Vol] 0.1 mg/dL Normal 0.0-0.3 [facility] Comment on above: Performed By: #### 5 7021-8 #### MARTINEZ Al ([id number]) [facility] ([facility]) [address] [place], [place] [address] Protein [Mass/Vol] 6.7 g/dL Normal 6.4-8.2 [facility] Comment on above: Performed By: #### 5 7021-8 #### MARTINEZ Al ([id number]) [facility] ([facility]) [address] [place], [place] [address] Hepatitis B virus core Abon 02-15-2025 HBV core Ab Ql (S) Non-Reactive Normal Nonreactive [facility] Comment on above: Performed By: #### 1 9123-9 #### MARTINEZ Al ([id number]) [facility] ([facility]) [address] [place], [place] [address] Hepatitis B virus surface Ab on 02-15-2025 HBV surface Ab Qn (S) 980.4 mIU/mL High <10.0 U [facility] Comment on above: Result Comment: Inte rpretive Criteria: <10 mIU/mL Nonreactive >=10 mIU/mL Reactive Biotin interference may cause falsely decreased results. Patients taking a Biotin dose of up to 5 mg/day should refrain from taking Biotin for 24 hours before sample collection. Providers may contact their local laboratory for further information. Performed By: #### 5 7021-8 #### MARTINEZ Al ([id number]) [facility] ([facility]) [address] [place], [place] [address] Hepatitis B virus surface Ag on 02-15-2025 HBV surface Ag IA Ql Non-Reactive Normal Nonreactive [facility] Comment on above: Result Comment: Biot in interference may cause falsely decreased results. Patients taking a Biotin dose of up to 5 mg/day should refrain from taking Biotin for 24 hours before sample collection. Providers may contact their local laboratory for further information. Performed By: #### 5 7021-8 #### MARTINEZ Al ([id number]) [facility] ([facility]) [id number] [place], [place] [id number] Hepatitis C virus Abon 02-15 HCV Ab Ql (S) Non-Reactive Normal Nonreactive [facility] Comment on above: Result Comment: Resu lts from patients taking biotin supplements or receiving high-dose biotin therapy should be interpreted with caution due to possible interference with this test. Providers may contact their local laboratory for further information. Performed By: #### 1 9123-9 #### MARTINEZ Al ([id number]) [facility] ([facility]) [address] [place], [place] [address] Homocysteineon 02-15-2025 Homocysteine [Moles/Vol] 41.59 umol/L High 5.00-13.90 [facility] Comment on above: Order Comment: Refer ence values apply to fasting specimens only. Non-fasting specimens produce slightly higher and likely clinically insignificant changes in homocysteine levels. Performed By: #### 1 9123-9 #### MARTINEZ Al ([id number]) [facility] ([facility]) [address] [place], [place] [address] LIPID PANEL NON-FASTINGon Cholesterol [Mass/Vol] 95 mg/dL Normal 0-199 [facility] Comment on above: Result Comment: Age Desirable Borderline High High 0-19 Y 0 - 169 170 - 199 >/= 200 20-24 Y 0 - 189 190 - 224 >/= 225 >24 Y 0 - 199 200 - 239 >/= 240 All ranges are based on fasting samples. Specific therapeutic targets will vary based on patient-specific cardiac risk. Pediatric guidelines reference:Pediatrics 2011, 128(S5).Adult guidelines reference: NCEP ATPIII Guidelines,AMINTA 2001, 258:2486-09 Venipuncture immediately after or during the administration of Metamizole may lead to falsely low results. Testing should be performed immediately prior to Metamizole dosing. Performed By: #### 5 7021-8 #### MARTINEZ lA ([id number]) [facility] ([facility]) [address] [place] [address] 63553 Cholesterol in HDL [Mass/Vol] 37.6 mg/dL [facility] Comment on above: Result Comment: Age Very Low Low Normal High 0-19 Y < 35 < 40 40-45 ---- 20-24 Y ---- < 40 >45 ---- >24 Y ---- < 40 40-60 >60 Performed By: #### 5 7021-8 #### MARTINEZ Al ([id number]) [facility] ([facility]) [address] [place] [address] 68613 CHOLESTEROL/HDL RATIO 2.5 Normal [facility] Comment on above: Result Comment: Ref Values Desirable < 3.4 High Risk > 5.0 Performed By: #### 5 7021-8 #### MARTINEZ Al ([id number]) [facility] ([facility]) [address] [place] [address] 08798 NON-HDL CHOLESTEROL 57 mg/dL Normal 0-149 [facility] Comment on above: Result Comment: Age Desiable Borderline High High Very High 0-19 Y 0 - 119 120 - 144 >/= 145 >/= 160 20-24 Y 0 - 149 150 - 189 >/= 190 ---- >24 Y 30 MG/DL ABOVE LDL CHOLESTEROL GOAL Performed By: #### 5 7021-8 #### MARTINEZ Al ([id number]) [facility] ([facility]) [address] [place] [address]246 M. tuberculosis stim IFN-g a nd spot count panel (Bld)on 02-15-2025 Gamma interferon negative control spot count (Bld) [#] Passed [facility] Comment on above: Performed By: #### 2 4323-8 #### MARTINEZ Al ([id number]) [facility] ([facility]) [address] [place] [address] M. tuberculosis stim IFN-g CFP10 Ag spot count (Bld) [#] 0 Normal [facility] Comment on above: Performed By: #### 2 4323-8 #### MARTINEZ TALBERT L ([id number]) [facility] ([facility]) [address] [place] [address] M. tuberculosis stim IFN-g ESAT-6 Ag spot count (Bld) [#] 0 Normal [facility] Comment on above: Performed By: #### 2 4323-8 #### MARTINEZ TALBERT L ([id number]) [facility] ([facility]) [address] [place] [address] 07346 M. tuberculosis stim IFN-g Ql (Bld) [Interp] Negative Normal Negative [facility] Comment on above: Result Comment: A negative test result does not exclude the possibility of exposure to or infection with Mycobacterium tuberculosis (M. tuberculosis). Patients with recent exposure to TB infected individuals exhibiting a negative T-SPOT.TB result should be considered for retesting within 6 weeks or if other relevant clinical symptoms indicate. Results from T-SPOT.TB testing must be used in conjunction with each individual's epidemiological history, current medical status, and results of other diagnostic evaluations. The T-SPOT.TB test is qualitative and results are reported as positive, borderline, or negative, given that the test controls perform as expected. In line with the Centers for Disease Control and Prevention's 2010 recommendation to report quantitative measurements alongside the qualitative result, the laboratory provides spot counts for informational purposes only. The T-SPOT.TB test should not be interpreted as a quantitative test. Performed By: #### 2 4323-8 #### MARTINEZ Al ([id number]) [facility] ([facility]) [address] [place] [address] Mitogen stimulated gamma interferon positive control spot count (Bld) [#] Passed [facility] Comment on above: Result Comment: For additional information, please refer to [email or web address] (This link is being provided for informational/ educational purposes only.) Performed By: #### 2 4323-8 #### MARTINEZ Al ([id number]) [facility] ([facility]) [address] [place] [address]35 NICOTINE AND METABOLITES,Son 02-15-2025 Cotinine [Mass/Vol] 177 ng/mL Normal [facility] Comment on above: Performed By: #### 2 4323-8 #### MARTINEZ Al ([id number]) [facility] ([facility]) [address] [place] [address] 12323 Nicotine [Mass/Vol] <5 Normal [facility] Comment on above: Result Comment: INTE RPRETIVE INFORMATION: Nicotine and Metabolites, Serum or Plasma, Quantitative Methodology: Quantitative Liquid Chromatography-Tandem Mass Spectrometry Positive cutoff: 5 ng/mL For medical purposes only; not valid for forensic use. This test is designed to evaluate recent use of nicotine-containing products. Passive and active exposure cannot be discriminated definitively, although a cutoff of 10 ng/mL cotinine is frequently used for surgery qualification purposes. For smoking cessation programs or compliance testing, the absence of expected drug(s) and/or drug metabolite(s) may indicate non-compliance, inappropriate timing of specimen collection relative to drug administration, poor drug absorption, or limitations of testing. This test cannot distinguish between use of tobacco and purified nicotine products. The concentration value must be greater than or equal to the cutoff to be reported as positive. This test was developed and its performance characteristics determined by [facility] [facility]. It has not been cleared or approved by the [place] Food and Drug Administration. This test was performed in a CLIA certified laboratory and is intended for clinical purposes. Performed By: [facility] [address] [place] [address] [employer] Electric[employer] Helper: Waqas Nelson MD, PhD CLIA Number: [id number] Performed By: #### 2 4323-8 #### MARTINEZ Al ([id number]) [facility] ([facility]) [address] [place] [address] 19551 PSA, TOTAL AND FREEon 2024 Free PSA [Mass/Vol] 0.1 ng/mL Normal [facility] Comment on above: Performed By: #### 2 4323-8 #### MARTINEZ Al ([id number]) [facility] ([facility]) [address] [place] [address] 47457 Free PSA/Total PSA [Mass fraction] 25 % Normal [facility] Comment on above: Result Comment: INTE RPRETIVE INFORMATION: Prostate Specific Antigen, Free Percentage [facility] uses the Belia Free PSA electrochemiluminescent immunoassay method in conjunction with the Belia PSA electrochemiluminescent immunoassay method to determine the free PSA percentage. Values obtained with different assay methods should not be used interchangeably. The free PSA percentage is an aid in distinguishing prostate cancer from benign prostatic conditions in individuals with a prostate age 50 years and older with a total PSA between 3 and 10 ng/mL and negative digital rectal examination findings. Prostatic biopsy is required for the diagnosis of cancer. In patients with total PSA concentrations of 4-10 ng/mL, the probability of finding prostate cancer on needle biopsy by age in years is: %fPSA 50-59 60-69 70 or older 0 - 10% 49% 58% 65% 11 - 18% 27% 34% 41% 19 - 25% 18% 24% 30% Greater than 25% 9% 12% 16% Other factors may help determine the actual risk of prostate cancer in individual patients. Performed By: [facility] [address] [place] [address] [employer] Electrician Helper: Waqas Nelson MD, PhD CLIA Number: [id number] Performed By: #### 2 4323-8 #### MARTINEZ Al ([id number]) [facility] ([facility]) [address] [place] [address] 30726 Prostate specific Ag IA [Mass/Vol] 0.4 ng/mL Normal 0.0-4.0 [facility] Comment on above: Result Comment: INTE RPRETIVE INFORMATION: Prostate Specific Antigen The Belia PSA electrochemiluminescent immunoassay is used. Results obtained with different test methods or kits cannot be used interchangeably. The Belia PSA method is approved for use as an aid in the detection of prostate cancer when used in conjunction with a digital rectal exam in individuals with a prostate age 50 years and older. The Belia PSA is also indicated for the serial measurement of PSA to aid in the prognosis and management of prostate cancer patients. Elevated PSA concentrations can only suggest the presence of prostate cancer until biopsy is performed. PSA concentrations can also be elevated in benign prostatic hyperplasia or inflammatory conditions of the prostate. PSA is generally not elevated in healthy individuals or individuals with nonprostatic carcinoma. Performed By: #### 2 4323-8 #### MARTINEZ Al ([id number]) [facility] ([facility]) [id number] [place] [address] 10638 PT Coag (PPP) [Time]on 02-15 INR Coag (PPP) [Relative time] 1.1 Normal 0.9-1.1 [facility] Comment on above: Performed By: #### 5 902-2 #### MARTINEZ Al ([id number]) [facility] ([facility]) [address] [place] [address] 38932 Phosphateon 02-15-2025 Phosphate [Mass/Vol] 10.2 mg/dL High 2.5-4.9 [facility] Comment on above: Performed By: #### 5 7021-8 #### MARTINEZ Al ([id number]) [facility] ([facility]) [address] [place] [address] 63145 Treponema pallidum Ab.IgG+Ig Mon 02-15-2025 T. pallidum IgG+IgM IA Ql (S) Non-Reactive Normal Nonreactive [facility] Comment on above: Result Comment: No s ignificant level of Treponema pallidum antibody detected. Repeat testing in 2 to 4 weeks may be considered if early infection or incubating syphilis infection is suspected. Performed By: #### 1 9123-9 #### MARTINEZ Al ([id number]) [facility] ([facility]) [address] [place] [address] 43435 Urea nitrogenon 02-15-2025 Urea nitrogen [Mass/Vol] 90 mg/dL High 6-23 [facility] Comment on above: Performed By: #### 5 7021-8 #### MARTINEZ Al ([id number]) [facility] ([facility]) [address] [place] [address] 01353 VZV IgG IA Ql (S)on 02-16-20 25 VARICELLA ZOSTER IGG INDEX 7.5 AI High <=0.8 [facility] Comment on above: Order Comment: NEGAT RAFITA: No IgG antibodies specific to VZV detected.It is likely that the patient has not had aprevious exposure to VZV through infectionor vaccination. Alternatively, the patient may have beenexposed to VZV but a failure to respond may indicateimmunodeficiency.EQUIVOCAL:Equivocal results; obtain additional sample for retesting.POSITIVE: IgG antibody to VZV detected. This may indicate thatthe patient was exposed to VZV through infection orvaccination. The interpretation of serological tests shouldtake into account the immunological status of the patient. Testresults for patients, including immunocompromised patients, neonates,and pediatric patients, reflect their capacity to respondimmunologically to the virus as well as their exposure to thepathogen. Patients treated with IVIG may demonstrate alteredresults in serological assays. Performed By: #### 1 9123-9 #### MARTINEZ Al ([id number]) [facility] ([facility]) [address] [place] [address] Varicella zoster virus Ab.Ig Brendan 02-15-2025 VZV IgG IA Ql (S) Positive Abnormal Negative [facility] Comment on above: Order Comment: NEGAT RAFITA: No IgG antibodies specific to VZV detected.It is likely that the patient has not had aprevious exposure to VZV through infectionor vaccination. Alternatively, the patient may have beenexposed to VZV but a failure to respond may indicateimmunodeficiency.EQUIVOCAL:Equivocal results; obtain additional sample for retesting.POSITIVE: IgG antibody to VZV detected. This may indicate thatthe patient was exposed to VZV through infection orvaccination. The interpretation of serological tests shouldtake into account the immunological status of the patient. Testresults for patients, including immunocompromised patients, neonates,and pediatric patients, reflect their capacity to respondimmunologically to the virus as well as their exposure to thepathogen. Patients treated with IVIG may demonstrate alteredresults in serological assays. Performed By: #### 1 9123-9 #### MARTINEZ Al ([id number]) [facility] ([facility]) [address] [place] [address] .Auto Diffon 01-31-2025 Basophil, Absolute 0.0 10 3/mcL Normal 0.0-0.3 [facility] Comment on above: Performed By: #### C MP, MG, GFR, ANEU, CBC, ADIFF #### [address] [address] Basophils/100 WBC (Bld) 0.4 % Normal 0.0-2.5 [facility] Comment on above: Performed By: #### C MP, MG, GFR, ANEU, CBC, ADIFF #### [address] [address] Eosinophil, Absolute 0.0 10 3/mcL Normal 0.0-0.7 [facility] Comment on above: Performed By: #### C MP, MG, GFR, ANEU, CBC, ADIFF #### [address] [address] Eosinophils/100 WBC (Bld) 0.5 % Normal 0.0-6.0 [facility] Comment on above: Performed By: #### C MP, MG, GFR, ANEU, CBC, ADIFF #### [address] [address] Lymphocyte, Absolute 1.1 10 3/mcL Normal 0.9-4.3 [facility] Comment on above: Performed By: #### C MP, MG, GFR, ANEU, CBC, ADIFF #### [address] [address] Lymphocytes/100 WBC (Bld) 17.2 % Low 20.0-40.0 [facility] Comment on above: Performed By: #### C MP, MG, GFR, ANEU, CBC, ADIFF #### [address] [address] Monocyte, Absolute 0.5 10 3/mcL Normal 0.1-1.4 [facility] Comment on above: Performed By: #### C MP, MG, GFR, ANEU, CBC, ADIFF #### [address] [address] Monocytes/100 WBC (Bld) 7.1 % Normal 2.0-13.0 [facility] Comment on above: Performed By: #### C MP, MG, GFR, ANEU, CBC, ADIFF #### [address] [place], [place] [address] Neutrophils/100 WBC (Bld) 74.8 % Normal 50.0-75.0 [facility] Comment on above: Performed By: #### C MP, MG, GFR, ANEU, CBC, ADIFF #### [address] [address] .GFRon 01-31-2025 Estimated Glomerular Filtration Rate 4 ml/min/1.73sqm Normal [facility] Comment on above: Result Comment: Stages of Chronic Kidney Disease (CKD) Stage Description eGFR(ml/min/1.73 sq.m.) CKD 1 Normal kidney function or >=90 normal kindney function with possible kidney damage (ex. Proteinuria) CKD 2 Kidney damage with mild loss 60-89 of kidney function CKD 3a Mild to moderate loss of kidney 45-59 function CKD 3b Moderate to severe loss of 30-44 of kindey function CKD 4 Severe loss of kidney function 15-29 CKD 5 Kidney failure <15 Note: (go live 2024) the eGFR calculation was updated to the 2020 CKD-EPI creatinine equation without a race factor to calculate the eGFR results. Performed By: #### C MP, MG, GFR, ANEU, CBC, ADIFF #### [address] [address] .NEUABSon 01-31-2025 Neutrophil, Absolute 4.9 10 3/mcL Normal 2.3-8.1 [facility] Comment on above: Performed By: #### C MP, MG, GFR, ANEU, CBC, ADIFF #### [address] [address] BMPon 01-31-2025 BUN/Creatinine Ratio 5.1 ratio Low 10.0-22.0 [facility] Comment on above: Performed By: #### C MP, MG, GFR, ANEU, CBC, ADIFF #### [address] [address] Calcium [Mass/Vol] 8.1 mg/dL Low 8.7-10.4 [facility] Comment on above: Performed By: #### C MP, MG, GFR, ANEU, CBC, ADIFF #### [address] [address] Chloride [Moles/Vol] 96 mmol/L Low 98-110 [facility] Comment on above: Performed By: #### C MP, MG, GFR, ANEU, CBC, ADIFF #### [address] [address] CO2 [Moles/Vol] 27 mmol/L Normal 22-32 [facility] Comment on above: Performed By: #### C MP, MG, GFR, ANEU, CBC, ADIFF #### [address] [address] Creatinine [Mass/Vol] 14.74 mg/dL High 0.60-1.40 [facility] Comment on above: Result Comment: Test ing performed on [employer] analyzer using enzymatic creatinine methodology. Performed By: #### C MP, MG, GFR, ANEU, CBC, ADIFF #### [address] [address] Electrolyte Balance 13.0 mEq/L Normal 4.0-15.0 [facility] Comment on above: Performed By: #### C MP, MG, GFR, ANEU, CBC, ADIFF #### [address] [address] Glucose [Mass/Vol] 96 mg/dL Normal 70-110 [facility] Comment on above: Performed By: #### C MP, MG, GFR, ANEU, CBC, ADIFF #### [address] [address] Potassium [Moles/Vol] 4.7 mmol/L Normal 3.5-5.0 [facility] Comment on above: Performed By: #### C MP, MG, GFR, ANEU, CBC, ADIFF #### [address] [address] Sodium [Moles/Vol] 136 mmol/L Normal 136-145 [facility] Comment on above: Performed By: #### C MP, MG, GFR, ANEU, CBC, ADIFF #### [address] [address] Urea nitrogen [Mass/Vol] 75.0 mg/dL High 8.0-22.0 [facility] Comment on above: Performed By: #### C MP, MG, GFR, ANEU, CBC, ADIFF #### [place] [id number] CBCon 01-31-2025 Erythrocyte distribution width (RBC) [Ratio] 15.6 % High 11.5-15.5 [facility] Comment on above: Performed By: #### C MP, MG, GFR, ANEU, CBC, ADIFF #### [place] [address] Hematocrit (Bld) [Volume fraction] 21.1 % Low 40.0-52.0 [facility] Comment on above: Performed By: #### C MP, MG, GFR, ANEU, CBC, ADIFF #### [place] [address] Hgb 7.0 G/dL Low 13.0-17.5 [facility] Comment on above: Performed By: #### C MP, MG, GFR, ANEU, CBC, ADIFF #### [place] [id number] MCH (RBC) [Entitic mass] 28.0 pg Normal 27.0-33.0 [facility] Comment on above: Performed By: #### C MP, MG, GFR, ANEU, CBC, ADIFF #### [place] [id number] MCHC 33.1 G/dL Normal 32.0-36.0 [facility] Comment on above: Performed By: #### C MP, MG, GFR, ANEU, CBC, ADIFF #### [place] [address] MCV (RBC) [Entitic vol] 84.7 fL Normal 81.0-100.0 [facility] Comment on above: Performed By: #### C MP, MG, GFR, ANEU, CBC, ADIFF #### [place] [id number] Platelet 187 10 3/mcL Normal 150-450 [facility] Comment on above: Performed By: #### C MP, MG, GFR, ANEU, CBC, ADIFF #### [place] [address] Platelet mean volume (Bld) [Entitic vol] 7.5 fL Normal 6.4-10.5 [facility] Comment on above: Performed By: #### C MP, MG, GFR, ANEU, CBC, ADIFF #### [place] [address] RBC 2.49 10 6/mcL Low 4.50-6.00 [facility] Comment on above: Performed By: #### C MP, MG, GFR, ANEU, CBC, ADIFF #### [place] [address] WBC 6.6 10 3/mcL Normal 4.5-10.8 [facility] Comment on above: Performed By: #### C MP, MG, GFR, ANEU, CBC, ADIFF #### [place] [address] HEPACon 01-31-2025 Hep A IgM Ab Non-Reactive Normal Non-Reactive [facility] Comment on above: Performed By: #### C MP, MG, GFR, ANEU, CBC, ADIFF #### [place] [address] Hep A IgM Ab Int See [facility] Comment on above: Result Comment: Clinical Interpretation: No serological evidence of a current Hepatitis A infection. Performed By: #### C MP, MG, GFR, ANEU, CBC, ADIFF #### [place] [address] Hep B Core IgM Ab Non-Reactive Normal Non-Reactive [facility] Comment on above: Performed By: #### C MP, MG, GFR, ANEU, CBC, ADIFF #### [place] [address] Hep B Core IgM Ab Int See [facility] Comment on above: Result Comment: Clinical Interpretation: Samples with a value < 0.80 Index are considered nonreactive (negative) for IgM antibodies to hepatitis B core antigen. Performed By: #### C MP, MG, GFR, ANEU, CBC, ADIFF #### [facility] [address] [place] [address] Hep B Surf Ag Non-Reactive Normal Non-Reactive [facility] Comment on above: Performed By: #### C MP, MG, GFR, ANEU, CBC, ADIFF #### [place] [id number] [place] [address] Hep C Ab Non-Reactive Normal Non-Reactive [facility] Comment on above: Performed By: #### C MP, MG, GFR, ANEU, CBC, ADIFF #### [place] [id number] [place] [address] Hep C Ab Int See Interp Normal [facility] Comment on above: Result Comment: Clinical Interpretation: Nonreactive: Samples with a value < 0.80 are considered nonreactive (negative) for antibodies to HCV. A negative test result does not exclude the possibility of exposure to or infection with HCV. HCV antibodies may be undetectable in some stages of the infection and in some clinical conditions. Performed By: #### C MP, MG, GFR, ANEU, CBC, ADIFF #### [place] [address] LABORATORYOrdered By: Misty Fuller on 01-31-2025 LDose Vancomycin: (random) See eMAR (01/31/25 1:50 PM) Normal Chemistry S LABORATORYOrdered By: SYSTEM SYSTEM on 01-31-2025 Vancomycin [Mass/Vol] 16.3 mcg/mL Invalid Interpretation Code AH ADM SS Albumin BCP dye [Mass/Vol] 3.5 G/dL Normal 3.2 - 4.8 G/dL AH ADM SS Basophils (Bld) [#/Vol] 0.0 103/mcL Normal 0.0 - 0.3 10^3/mcL AH Workflow SS Basophils/100 WBC (Bld) 0.4 % Normal 0.0 - 2.5 % AH Workflow SS Eosinophils (Bld) [#/Vol] 0.0 103/mcL Normal 0.0 - 0.7 10^3/mcL AH Workflow SS Eosinophils/100 WBC (Bld) 0.5 % Normal 0.0 - 6.0 % AH Workflow SS Erythrocyte distribution width (RBC) [Ratio] 15.6 % High 11.5 - 15.5 % AH Workflow SS Estimated Glomerular Filtration Rate 4 ml/min/1.73sqm Invalid Interpretation Code AH ADM SS Comment on above: Interpretive Data: Stages of Chronic Kidney Disease (CKD) Stage Description eGFR(ml/min/1.73 sq.m.) CKD 1 Normal kidney function or >=90 normal kindney function with possible kidney damage (ex. Proteinuria) CKD 2 Kidney damage with mild loss 60-89 of kidney function CKD 3a Mild to moderate loss of kidney 45-59 function CKD 3b Moderate to severe loss of 30-44 of kindey function CKD 4 Severe loss of kidney function 15-29 CKD 5 Kidney failure <15 Note: (go live 2024) the eGFR calculation was updated to the 2020 CKD-EPI creatinine equation without a race factor to calculate the eGFR results. Hematocrit (Bld) [Volume fraction] 21.1 % Low 40.0 - 52.0 % AH Workflow SS Hemoglobin (Bld) [Mass/Vol] 7.0 G/dL Low 13.0 - 17.5 G/dL AH Workflow SS Lymphocytes (Bld) [#/Vol] 1.1 103/mcL Normal 0.9 - 4.3 10^3/mcL AH Workflow SS Lymphocytes/100 WBC (Bld) 17.2 % Low 20.0 - 40.0 % AH Workflow SS MCH (RBC) [Entitic mass] 28.0 pg Normal 27.0 - 33.0 pg AH Workflow SS MCHC 33.1 G/dL Normal 32.0 - 36.0 G/dL AH Workflow SS MCV (RBC) [Entitic vol] 84.7 fL Normal 81.0 - 100.0 fL AH Workflow SS Monocytes (Bld) [#/Vol] 0.5 103/mcL Normal 0.1 - 1.4 10^3/mcL AH Workflow SS Monocytes/100 WBC (Bld) 7.1 % Normal 2.0 - 13.0 % AH Workflow SS Neutrophils (Bld) [#/Vol] 4.9 103/mcL Normal 2.3 - 8.1 10^3/mcL AH Workflow SS Neutrophils/100 WBC (Bld) 74.8 % Normal 50.0 - 75.0 % AH Workflow SS Phosphate [Mass/Vol] 9.9 mg/dL Invalid Interpretation Code 2.4 - 5.1 mg/dL ADM SS Platelet mean volume (Bld) [Entitic vol] 7.5 fL Normal 6.4 - 10.5 fL AH Workflow SS Platelets (Bld) [#/Vol] 187 103/mcL Normal 150 - 450 10^3/mcL AH Workflow SS RBC (Bld) [#/Vol] 2.49 106/mcL Low 4.50 - 6.0 0 10^6/mcL AH Workflow SS WBC (Bld) [#/Vol] 6.6 103/mcL Normal 4.5 - 10.8 10^3/mcL AH Workflow SS LABORATORYOrdered By: Maddie foster on 01-31-2025 Cholesterol [Mass/Vol] 82 mg/dL Normal 50 - 199 mg/dL ADM SS Comment on above: Interpretive Data: C holesterol Reference Interval: Less than 200 Desirable 200-239 Borderline high risk 240 and above High risk Cholesterol in HDL [Mass/Vol] 33 mg/dL Low 40 - 59 mg/dL ADM SS Cholesterol in LDL [Mass/Vol] 35 mg/dL Normal 0 - 129 mg/dL ADM SS HAV IgM IA Ql See Interp 12 *NA* (01/31/25 5:36 AM) Invalid Interpretation Code [place] [facility] S Comment on above: Result Comment: Clinical Interpretation: No serological evidence of a current Hepatitis A infection. HAV IgM IA Ql Non-Reactive (01/31/25 5:36 AM) Normal Non-Reactive AH ADM SS HBV core IgM IA Ql See Interp 11 *NA* (01/31/25 5:36 AM) Invalid Interpretation Code [place] [facility] S Comment on above: Result Comment: Clinical Interpretation: Samples with a value < 0.80 Index are considered nonreactive (negative) for IgM antibodies to hepatitis B core antigen. HBV core IgM IA Ql Non-Reactive (01/31/25 5:36 AM) Normal Non-Reactive AH ADM SS HBV surface Ag IA Ql Non-Reactive (01/31/25 5:36 AM) Normal Non-Reactive AH ADM SS HCV Ab IA Ql Non-Reactive (01/31/25 5:36 AM) Normal Non-Reactive AH ADM SS HCV Ab IA Ql See Interp 13 *NA* (01/31/25 5:36 AM) Invalid Interpretation Code [place] [facility] S Comment on above: Result Comment: Clinical Interpretation: Nonreactive: Samples with a value < 0.80 are considered nonreactive (negative) for antibodies to HCV. A negative test result does not exclude the possibility of exposure to or infection with HCV. HCV antibodies may be undetectable in some stages of the infection and in some clinical conditions. Triglyceride [Mass/Vol] 72 mg/dL Normal 3 - 149 mg/dL ADM SS LIPIDon 01-31-2025 Cholesterol [Mass/Vol] 82 mg/dL Normal 50-199 [facility] Comment on above: Result Comment: Chol esterol Reference Interval: Less than 200 Desirable 200-239 Borderline high risk 240 and above High risk Performed By: #### C MP, MG, GFR, ANEU, CBC, ADIFF #### [address] [address] Cholesterol in HDL [Mass/Vol] 33 mg/dL Low 40-59 [facility] Comment on above: Performed By: #### C MP, MG, GFR, ANEU, CBC, ADIFF #### [address] [address] Cholesterol in LDL [Mass/Vol] 35 mg/dL Normal 0-129 [facility] Comment on above: Performed By: #### C MP, MG, GFR, ANEU, CBC, ADIFF #### [address] [address] Triglyceride [Mass/Vol] 72 mg/dL Normal 3-149 [facility] Comment on above: Performed By: #### C MP, MG, GFR, ANEU, CBC, ADIFF #### [address] [address] Laboratory - Chemistry and C hemistry - challengeOrdered By: SYSTEM SYSTEM on 01-31-2025 Calcium [Mass/Vol] 8.1 mg/dL Low 8.7 - 10. 4 mg/dL ADM SS Chloride [Moles/Vol] 96 mmol/L Low 98 - 11 0 mEq/L AH ADM SS CO2 [Moles/Vol] 27 mmol/L Normal 22 - 32 mEq/L AH ADM SS Creatinine [Mass/Vol] 14.74 mg/dL High 0.60 - 1.40 mg/dL ADM SS Comment on above: Interpretive Data: T esting performed on [employer] analyzer using enzymatic creatinine methodology. Glucose [Mass/Vol] 96 mg/dL Normal 70 - 110 mg/dL ADM SS Potassium [Moles/Vol] 4.7 mmol/L Normal 3.5 - 5.0 mEq/L AH ADM SS Sodium [Moles/Vol] 136 mmol/L Normal 136 - 145 mEq/L AH ADM SS Urea nitrogen [Mass/Vol] 75.0 mg/dL High 8.0 - 22.0 mg/dL AH ADM SS Urea nitrogen/Creatinine [Mass ratio] 5.1 ratio Low 10.0 - 22.0 ratio AH ADM SS No Panel InformationOrdered By: SYSTEM SYSTEM on 01-31-2025 Electrolyte Balance 13.0 mEq/L Normal 4.0 - 15 .0 mEq/L AH ADM SS RFPon 01-31-2025 Albumin Level 3.5 G/dL Normal 3.2-4.8 [facility] Comment on above: Performed By: #### C MP, MG, GFR, ANEU, CBC, ADIFF #### [place] [address] Phosphate [Mass/Vol] 9.9 mg/dL Critically abnormal 2.4-5.1 [facility] Comment on above: Performed By: #### C MP, MG, GFR, ANEU, CBC, ADIFF #### [place] [address] VANCRon 01-31-2025 LDose Vancomycin: (random) See eMAR Normal [facility] Comment on above: Order Comment: Post Dialysis Performed By: #### A DIFF, GFR, BMP, CBC, ANEU #### [place] [address] Vancomycin Lvl (random) 16.3 mcg/mL Normal [facility] Comment on above: Order Comment: Post Dialysis Performed By: #### A DIFF, GFR, BMP, CBC, ANEU #### [place] [address] .Auto Diffon 01-30-2025 Basophil, Absolute 0.0 10 3/mcL Normal 0.0-0.3 [facility] Comment on above: Performed By: #### C MP, MG, GFR, ANEU, CBC, ADIFF #### [place] [address] Basophils/100 WBC (Bld) 0.5 % Normal 0.0-2.5 [facility] Comment on above: Performed By: #### C MP, MG, GFR, ANEU, CBC, ADIFF #### [address] [address] Eosinophil, Absolute 0.0 10 3/mcL Normal 0.0-0.7 [facility] Comment on above: Performed By: #### C MP, MG, GFR, ANEU, CBC, ADIFF #### [address] [address] Eosinophils/100 WBC (Bld) 0.0 % Normal 0.0-6.0 [facility] Comment on above: Performed By: #### C MP, MG, GFR, ANEU, CBC, ADIFF #### [address] [address] Lymphocyte, Absolute 0.3 10 3/mcL Low 0.9-4.3 [facility] Comment on above: Performed By: #### C MP, MG, GFR, ANEU, CBC, ADIFF #### [address] [address] Lymphocytes/100 WBC (Bld) 8.7 % Low 20.0-40.0 [facility] Comment on above: Performed By: #### C MP, MG, GFR, ANEU, CBC, ADIFF #### [address] [address] Monocyte, Absolute 0.0 10 3/mcL Low 0.1-1.4 [facility] Comment on above: Performed By: #### C MP, MG, GFR, ANEU, CBC, ADIFF #### [address] [address] Monocytes/100 WBC (Bld) 1.2 % Low 2.0-13.0 [facility] Comment on above: Performed By: #### C MP, MG, GFR, ANEU, CBC, ADIFF #### [address] [address] Neutrophils/100 WBC (Bld) 89.6 % High 50.0-75.0 [facility] Comment on above: Performed By: #### C MP, MG, GFR, ANEU, CBC, ADIFF #### [address] [address] .GFRon 01-30-2025 Estimated Glomerular Filtration Rate 4 ml/min/1.73sqm Normal [facility] Comment on above: Result Comment: Stages of Chronic Kidney Disease (CKD) Stage Description eGFR(ml/min/1.73 sq.m.) CKD 1 Normal kidney function or >=90 normal kindney function with possible kidney damage (ex. Proteinuria) CKD 2 Kidney damage with mild loss 60-89 of kidney function CKD 3a Mild to moderate loss of kidney 45-59 function CKD 3b Moderate to severe loss of 30-44 of kindey function CKD 4 Severe loss of kidney function 15-29 CKD 5 Kidney failure <15 Note: (go live 2024) the eGFR calculation was updated to the 2020 CKD-EPI creatinine equation without a race factor to calculate the eGFR results. Performed By: #### A DIFF, GFR, BMP, CBC, ANEU #### [place] [address] .NEUABSon 01-30-2025 Neutrophil, Absolute 3.0 10 3/mcL Normal 2.3-8.1 [facility] Comment on above: Performed By: #### C MP, MG, GFR, ANEU, CBC, ADIFF #### [place] [address] CBCon 01-30-2025 Erythrocyte distribution width (RBC) [Ratio] 15.7 % High 11.5-15.5 [facility] Comment on above: Performed By: #### C MP, MG, GFR, ANEU, CBC, ADIFF #### [place] [address] Hematocrit (Bld) [Volume fraction] 22.6 % Low 40.0-52.0 [facility] Comment on above: Performed By: #### C MP, MG, GFR, ANEU, CBC, ADIFF #### [place] [address] Hgb 7.4 G/dL Low 13.0-17.5 [facility] Comment on above: Performed By: #### C MP, MG, GFR, ANEU, CBC, ADIFF #### [place] [address] MCH (RBC) [Entitic mass] 27.6 pg Normal 27.0-33.0 [facility] Comment on above: Performed By: #### C MP, MG, GFR, ANEU, CBC, ADIFF #### [place] [address] MCHC 32.6 G/dL Normal 32.0-36.0 [facility] Comment on above: Performed By: #### C MP, MG, GFR, ANEU, CBC, ADIFF #### [place] [address] MCV (RBC) [Entitic vol] 84.8 fL Normal 81.0-100.0 [facility] Comment on above: Performed By: #### C MP, MG, GFR, ANEU, CBC, ADIFF #### [place] [address] Platelet 172 10 3/mcL Normal 150-450 [facility] Comment on above: Performed By: #### C MP, MG, GFR, ANEU, CBC, ADIFF #### [place] [address] Platelet mean volume (Bld) [Entitic vol] 8.0 fL Normal 6.4-10.5 [facility] Comment on above: Performed By: #### C MP, MG, GFR, ANEU, CBC, ADIFF #### [place] [address] RBC 2.67 10 6/mcL Low 4.50-6.00 [facility] Comment on above: Performed By: #### C MP, MG, GFR, ANEU, CBC, ADIFF #### [place] [address] WBC 3.3 10 3/mcL Low 4.5-10.8 [facility] Comment on above: Performed By: #### C MP, MG, GFR, ANEU, CBC, ADIFF #### [place] [address] CMPon 01-30-2025 Albumin Level 3.4 G/dL Normal 3.2-4.8 [facility] Comment on above: Performed By: #### C MP, MG, GFR, ANEU, CBC, ADIFF #### [place] [address] Albumin/Globulin [Mass ratio] 1.0 {ratio} Normal 0.9-1.6 [facility] Comment on above: Performed By: #### C MP, MG, GFR, ANEU, CBC, ADIFF #### [place] [id number] ALP [Catalytic activity/Vol] 58 U/L Normal 38-126 [facility] Comment on above: Performed By: #### C MP, MG, GFR, ANEU, CBC, ADIFF #### [place] [id number] ALT/SGPT <7 Low 12-55 [facility] Comment on above: Performed By: #### C MP, MG, GFR, ANEU, CBC, ADIFF #### [place] [id number] AST [Catalytic activity/Vol] 8 U/L Normal 8-34 [facility] Comment on above: Performed By: #### C MP, MG, GFR, ANEU, CBC, ADIFF #### [place] [id number] Bili Total 0.20 mg/dL Normal 0.20-1.20 [facility] Comment on above: Result Comment: Use of this assay is not recommended for patients undergoing treatment with eltrombopag due to the potential for falsely elevated results. Performed By: #### C MP, MG, GFR, ANEU, CBC, ADIFF #### [place] [id number] BUN/Creatinine Ratio 4.7 ratio Low 10.0-22.0 [facility] Comment on above: Performed By: #### C MP, MG, GFR, ANEU, CBC, ADIFF #### [place] [id number] Calcium [Mass/Vol] 8.2 mg/dL Low 8.7-10.4 [facility] Comment on above: Performed By: #### C MP, MG, GFR, ANEU, CBC, ADIFF #### [address] [address] Chloride [Moles/Vol] 97 mmol/L Low 98-110 [facility] Comment on above: Performed By: #### C MP, MG, GFR, ANEU, CBC, ADIFF #### [address] [address] CO2 [Moles/Vol] 26 mmol/L Normal 22-32 [facility] Comment on above: Performed By: #### C MP, MG, GFR, ANEU, CBC, ADIFF #### [address] [address] Creatinine [Mass/Vol] 12.75 mg/dL High 0.60-1.40 [facility] Comment on above: Result Comment: Test ing performed on [employer] analyzer using enzymatic creatinine methodology. Performed By: #### C MP, MG, GFR, ANEU, CBC, ADIFF #### [address] [address] Electrolyte Balance 12.0 mEq/L Normal 4.0-15.0 [facility] Comment on above: Performed By: #### C MP, MG, GFR, ANEU, CBC, ADIFF #### [address] [address] Globulin 3.3 G/dL Normal 2.5-4.2 [facility] Comment on above: Performed By: #### C MP, MG, GFR, ANEU, CBC, ADIFF #### [address] [address] Glucose [Mass/Vol] 197 mg/dL High 70-110 [facility] Comment on above: Performed By: #### C MP, MG, GFR, ANEU, CBC, ADIFF #### [address] [address] Potassium [Moles/Vol] 4.8 mmol/L Normal 3.5-5.0 [facility] Comment on above: Performed By: #### C MP, MG, GFR, ANEU, CBC, ADIFF #### [address] [address] Sodium [Moles/Vol] 135 mmol/L Low 136-145 [facility] Comment on above: Performed By: #### C MP, MG, GFR, ANEU, CBC, ADIFF #### [place] [address] Total Protein 6.7 G/dL Normal 5.7-8.2 [facility] Comment on above: Performed By: #### C MP, MG, GFR, ANEU, CBC, ADIFF #### [place] [address] Urea nitrogen [Mass/Vol] 60.0 mg/dL High 8.0-22.0 [facility] Comment on above: Performed By: #### C MP, MG, GFR, ANEU, CBC, ADIFF #### [place] [address] CRPon 01-30-2025 C-Reactive Protein 2.6 mg/dL High 0.0-1.0 [facility] Comment on above: Performed By: #### A DIFF, GFR, BMP, CBC, ANEU #### [place] [address] ESRon 01-30-2025 Erythrocyte Sed Rate 38 mm/hr High 0-20 [facility] Comment on above: Performed By: #### A DIFF, GFR, BMP, CBC, ANEU #### [place] [address] LABORATORYOrdered By: SYSTEM SYSTEM on 01-30-2025 Troponin I.cardiac DL <= 0.01 ng/mL [Mass/Vol] 24 ng/L Normal 0 - 54 ng/L ADM Comment on above: Interpretive Data: High Sensitive Troponin I Reference Ranges: Female: 0-34 ng/L Male: 0-54 ng/L Testing performed on [employer] analyzer using direct chemiluminescent technology. Albumin BCP dye [Mass/Vol] 3.4 G/dL Normal 3.2 - 4.8 G/dL ADM SS Albumin/Globulin [Mass ratio] 1.0 {ratio} Normal 0.9 - 1.6 ratio ADM SS ALP [Catalytic activity/Vol] 58 U/L Normal 38 - 126 U/L ADM SS ALT No additional P-5'-P [Catalytic activity/Vol] U/L 1 Low 12 - 55 U/L ADM SS AST [Catalytic activity/Vol] 8 U/L Normal 8 - 34 U/L ADM SS Basophils (Bld) [#/Vol] 0.0 103/mcL Normal 0.0 - 0.3 10^3/mcL AH Workflow SS Basophils/100 WBC (Bld) 0.5 % Normal 0.0 - 2.5 % Workflow SS Bilirubin [Mass/Vol] 0.20 mg/dL Normal 0.20 - 1.20 mg/dL ADM SS Comment on above: Interpretive Data: U se of this assay is not recommended for patients undergoing treatment with eltrombopag due to the potential for falsely elevated results. Calcium [Mass/Vol] 8.2 mg/dL Low 8.7 - 10. 4 mg/dL ADM SS Chloride [Moles/Vol] 97 mmol/L Low 98 - 11 0 mEq/L ADM SS CO2 [Moles/Vol] 26 mmol/L Normal 22 - 32 mEq/L ADM SS Creatinine [Mass/Vol] 12.75 mg/dL High 0.60 - 1.40 mg/dL ADM SS Comment on above: Interpretive Data: T esting performed on [employer] analyzer using enzymatic creatinine methodology. CRP [Mass/Vol] 2.6 mg/dL High 0.0 - 1.0 mg/dL ADM SS Electrolyte Balance 12.0 mEq/L Normal 4.0 - 15 .0 mEq/L ADM SS Eosinophils (Bld) [#/Vol] 0.0 103/mcL Normal 0.0 - 0.7 10^3/mcL Workflow SS Eosinophils/100 WBC (Bld) 0.0 % Normal 0.0 - 6.0 % Workflow SS Erythrocyte distribution width (RBC) [Ratio] 15.7 % High 11.5 - 15.5 % Workflow SS Estimated Glomerular Filtration Rate 4 ml/min/1.73sqm Invalid Interpretation Code ADM SS Comment on above: Interpretive Data: Stages of Chronic Kidney Disease (CKD) Stage Description eGFR(ml/min/1.73 sq.m.) CKD 1 Normal kidney function or >=90 normal kindney function with possible kidney damage (ex. Proteinuria) CKD 2 Kidney damage with mild loss 60-89 of kidney function CKD 3a Mild to moderate loss of kidney 45-59 function CKD 3b Moderate to severe loss of 30-44 of kindey function CKD 4 Severe loss of kidney function 15-29 CKD 5 Kidney failure <15 Note: (go live 2024) the eGFR calculation was updated to the 2020 CKD-EPI creatinine equation without a race factor to calculate the eGFR results. Globulin 3.3 G/dL Normal 2.5 - 4.2 G/dL AH ADM SS Glucose [Mass/Vol] 197 mg/dL High 70 - 110 mg/dL AH ADM SS Hematocrit (Bld) [Volume fraction] 22.6 % Low 40.0 - 52.0 % AH Workflow SS Hemoglobin (Bld) [Mass/Vol] 7.4 G/dL Low 13.0 - 17.5 G/dL AH Workflow SS Lymphocytes (Bld) [#/Vol] 0.3 103/mcL Low 0.9 - 4.3 10^3/mcL AH Workflow SS Lymphocytes/100 WBC (Bld) 8.7 % Low 20.0 - 40.0 % AH Workflow SS Magnesium [Mass/Vol] 2.5 mg/dL High 1.6 - 2 .4 mg/dL ADM SS MCH (RBC) [Entitic mass] 27.6 pg Normal 27.0 - 33.0 pg AH Workflow SS MCHC 32.6 G/dL Normal 32.0 - 36.0 G/dL AH Workflow SS MCV (RBC) [Entitic vol] 84.8 fL Normal 81.0 - 100.0 fL AH Workflow SS Monocytes (Bld) [#/Vol] 0.0 103/mcL Low 0.1 - 1.4 10^3/mcL AH Workflow SS Monocytes/100 WBC (Bld) 1.2 % Low 2.0 - 13.0 % AH Workflow SS Neutrophils (Bld) [#/Vol] 3.0 103/mcL Normal 2.3 - 8.1 10^3/mcL AH Workflow SS Neutrophils/100 WBC (Bld) 89.6 % High 50.0 - 75.0 % AH Workflow SS Platelet mean volume (Bld) [Entitic vol] 8.0 fL Normal 6.4 - 10.5 fL AH Workflow SS Platelets (Bld) [#/Vol] 172 103/mcL Normal 150 - 450 10^3/mcL AH Workflow SS Potassium [Moles/Vol] 4.8 mmol/L Normal 3.5 - 5.0 mEq/L AH ADM SS Protein [Mass/Vol] 6.7 G/dL Normal 5.7 - 8.2 G/dL AH ADM SS RBC (Bld) [#/Vol] 2.67 106/mcL Low 4.50 - 6.0 0 10^6/mcL Workflow SS Sodium [Moles/Vol] 135 mmol/L Low 136 - 145 mEq/L AH ADM SS Troponin I.cardiac DL <= 0.01 ng/mL [Mass/Vol] 26 ng/L Normal 0 - 54 ng/L AH ADM SS Comment on above: Interpretive Data: High Sensitive Troponin I Reference Ranges: Female: 0-34 ng/L Male: 0-54 ng/L Testing performed on [employer] IM analyzer using direct chemiluminescent technology. Urea nitrogen [Mass/Vol] 60.0 mg/dL High 8.0 - 22.0 mg/dL AH ADM SS Urea nitrogen/Creatinine [Mass ratio] 4.7 ratio Low 10.0 - 22.0 ratio AH ADM SS WBC (Bld) [#/Vol] 3.3 103/mcL Low 4.5 - 10.8 10^3/mcL Workflow SS Troponin I.cardiac DL <= 0.01 ng/mL [Mass/Vol] 29 ng/L Normal 0 - 54 ng/L AH ADM SS Comment on above: Interpretive Data: High Sensitive Troponin I Reference Ranges: Female: 0-34 ng/L Male: 0-54 ng/L Testing performed on [employer] IM analyzer using direct chemiluminescent technology. LABORATORYOrdered By: Melquiades Davis on 01-30-2025 ESR 15 minute reading (Bld) [Velocity] 38 mm/hr High 0 - 20 mm/hr AH Auto Heme SS MGon 01-30-2025 Magnesium [Mass/Vol] 2.5 mg/dL High 1.6-2.4 [facility] Comment on above: Performed By: #### C MP, MG, GFR, ANEU, CBC, ADIFF #### [place] [address] No Panel Informationon 01-30 Microscopic examination of blood, culture Culture has been received in lab and is no growth to date. Routine cultures are held for [address] [facility] Work Phone: [facility] High Sensitivity Troponin I 24 ng/L Normal 0-54 [facility] Comment on above: Result Comment: High Sensitive Troponin I Reference Ranges: Female: 0-34 ng/L Male: 0-54 ng/L Testing performed on [employer] IM analyzer using direct chemiluminescent technology. Performed By: #### A DIFF, GFR, BMP, CBC, ANEU #### [place] [address] High Sensitivity Troponin I 26 ng/L Normal 0-54 [facility] Comment on above: Result Comment: High Sensitive Troponin I Reference Ranges: Female: 0-34 ng/L Male: 0-54 ng/L Testing performed on [employer] IM analyzer using direct chemiluminescent technology. Performed By: #### C MP, MG, GFR, ANEU, CBC, ADIFF #### [place] [address] High Sensitivity Troponin I 29 ng/L Normal 0-54 [facility] Comment on above: Result Comment: High Sensitive Troponin I Reference Ranges: Female: 0-34 ng/L Male: 0-54 ng/L Testing performed on [employer] IM analyzer using direct chemiluminescent technology. Performed By: #### A DIFF, GFR, BMP, CBC, ANEU #### [place] [address] .GFRon 01-29-2025 Estimated Glomerular Filtration Rate 5 ml/min/1.73sqm Normal [facility] Comment on above: Result Comment: Stages of Chronic Kidney Disease (CKD) Stage Description eGFR(ml/min/1.73 sq.m.) CKD 1 Normal kidney function or >=90 normal kindney function with possible kidney damage (ex. Proteinuria) CKD 2 Kidney damage with mild loss 60-89 of kidney function CKD 3a Mild to moderate loss of kidney 45-59 function CKD 3b Moderate to severe loss of 30-44 of kindey function CKD 4 Severe loss of kidney function 15-29 CKD 5 Kidney failure <15 Note: (go live 2024) the eGFR calculation was updated to the 2020 CKD-EPI creatinine equation without a race factor to calculate the eGFR results. Performed By: #### B MP, MORPH, DIFF, ESR, MDW, CBC, TROPHS, CRP, GFR ####[address] [address] .MDWon 01-29-2025 Monocyte Distribution Width 18.67 Normal 0.00-20.00 [facility] Comment on above: Result Comment: For ED adult patients suspected of sepsis, MDW<=20.0 does not rule out sepsis or risk of sepsis Performed By: #### B MP, MORPH, DIFF, ESR, MDW, CBC, TROPHS, CRP, GFR ####[address] [address] .Manual Diffon 01-29-2025 Basophil %, Manual 0.0 % Normal 0.0-2.5 [facility] Comment on above: Performed By: #### B MP, MORPH, DIFF, ESR, MDW, CBC, TROPHS, CRP, GFR ####[address] [address] Basophil, Abs Manual 0.0 10 3/mcL Normal 0.0-0.3 [facility] Comment on above: Performed By: #### B MP, MORPH, DIFF, ESR, MDW, CBC, TROPHS, CRP, GFR ####[address] [address] Eosinophil %, Manual 3.0 % Normal 0.0-6.0 [facility] Comment on above: Performed By: #### B MP, MORPH, DIFF, ESR, MDW, CBC, TROPHS, CRP, GFR ####[address] [address] Eosinophil, Abs Manual 0.2 10 3/mcL Normal 0.0-0.7 [facility] Comment on above: Performed By: #### B MP, MORPH, DIFF, ESR, MDW, CBC, TROPHS, CRP, GFR ####[address] [address] Lymphocyte %, Manual 19.0 % Low 20.0-40.0 [facility] Comment on above: Performed By: #### B MP, MORPH, DIFF, ESR, MDW, CBC, TROPHS, CRP, GFR ####[address] [address] Lymphocyte, Abs Manual 0.9 10 3/mcL Normal 0.9-4.3 [facility] Comment on above: Performed By: #### B MP, MORPH, DIFF, ESR, MDW, CBC, TROPHS, CRP, GFR ####[address] [address] Monocyte %, Manual 8.0 % Normal 2.0-13.0 [facility] Comment on above: Performed By: #### B MP, MORPH, DIFF, ESR, MDW, CBC, TROPHS, CRP, GFR ####[address] [address] Monocyte, Abs Manual 0.4 10 3/mcL Normal 0.1-1.4 [facility] Comment on above: Performed By: #### B MP, MORPH, DIFF, ESR, MDW, CBC, TROPHS, CRP, GFR ####[address] [address] Neutrophil %, Manual 70.0 % Normal 50.0-75.0 [facility] Comment on above: Performed By: #### B MP, MORPH, DIFF, ESR, MDW, CBC, TROPHS, CRP, GFR ####[address] [address] Neutrophil, Abs Manual 3.5 10 3/mcL Normal 2.3-8.1 [facility] Comment on above: Performed By: #### B MP, MORPH, DIFF, ESR, MDW, CBC, TROPHS, CRP, GFR ####[address] [address] Nucleated RBC 0.0 /100 WBC Normal [facility] Comment on above: Performed By: #### B MP, MORPH, DIFF, ESR, MDW, CBC, TROPHS, CRP, GFR ####[address] [address] .Morphon 01-29-2025 Anisocytosis Ql (Bld) 1+ Normal [facility] Comment on above: Performed By: #### B MP, MORPH, DIFF, ESR, MDW, CBC, TROPHS, CRP, GFR ####[facility] [place], [place] [address] Hypochrom 1+ Normal [facility] Comment on above: Performed By: #### B MP, MORPH, DIFF, ESR, MDW, CBC, TROPHS, CRP, GFR ####[facility] [place], [place] [address] Microcytosis 1+ Normal [facility] Comment on above: Performed By: #### B MP, MORPH, DIFF, ESR, MDW, CBC, TROPHS, CRP, GFR ####[address] [place], [place] [address] Ovalocytes 1+ Normal [facility] Comment on above: Performed By: #### B MP, MORPH, DIFF, ESR, MDW, CBC, TROPHS, CRP, GFR ####[address] [place], [place] [address] Platelet Estimate Normal Normal [facility] Comment on above: Performed By: #### B MP, MORPH, DIFF, ESR, MDW, CBC, TROPHS, CRP, GFR ####[address] [place], [place] [address] ABO/Rh (Gel)on 01-29-2025 ABO/Rh Interp Positive Invalid Interpretation Code [facility] Comment on above: Performed By: #### A BSGEL, ABOGEL #### [address] [address] ABS (Gel)on 01-29-2025 ABSC Interp (Gel) Negative Normal [facility] Comment on above: Performed By: #### A BSGEL, ABOGEL #### [address] [place], [place] [address] BMPon 01-29-2025 BUN/Creatinine Ratio 5 ratio Low 7-27 [facility] Comment on above: Performed By: #### B MP, MORPH, DIFF, ESR, MDW, CBC, TROPHS, CRP, GFR ####[facility] [place], [place] [address] Calcium [Mass/Vol] 8.3 mg/dL Low 8.4-10.2 [facility] Comment on above: Performed By: #### B MP, MORPH, DIFF, ESR, MDW, CBC, TROPHS, CRP, GFR ####[address] [address] Chloride [Moles/Vol] 98 mmol/L Normal 98-107 [facility] Comment on above: Performed By: #### B MP, MORPH, DIFF, ESR, MDW, CBC, TROPHS, CRP, GFR ####[address] [address] CO2 [Moles/Vol] 33 mmol/L High 22-29 [facility] Comment on above: Performed By: #### B MP, MORPH, DIFF, ESR, MDW, CBC, TROPHS, CRP, GFR ####[address] [address] Creatinine [Mass/Vol] 11.99 mg/dL High 0.67-1.17 [facility] Comment on above: Performed By: #### B MP, MORPH, DIFF, ESR, MDW, CBC, TROPHS, CRP, GFR ####[address] [address] Electrolyte Balance 7.0 mEq/L Normal 4.0-15.0 [facility] Comment on above: Performed By: #### B MP, MORPH, DIFF, ESR, MDW, CBC, TROPHS, CRP, GFR ####[address] [address] Glucose [Mass/Vol] 97 mg/dL Normal 70-105 [facility] Comment on above: Performed By: #### B MP, MORPH, DIFF, ESR, MDW, CBC, TROPHS, CRP, GFR ####[address] [address] Potassium [Moles/Vol] 4.6 mmol/L Normal 3.5-5.1 [facility] Comment on above: Performed By: #### B MP, MORPH, DIFF, ESR, MDW, CBC, TROPHS, CRP, GFR ####[address] [place], [place] [address] Sodium [Moles/Vol] 138 mmol/L Normal 136-145 [facility] Comment on above: Performed By: #### B MP, MORPH, DIFF, ESR, MDW, CBC, TROPHS, CRP, GFR ####[address] [place], [place] [address] Urea nitrogen [Mass/Vol] 62 mg/dL High 7-18 [facility] Comment on above: Performed By: #### B MP, MORPH, DIFF, ESR, MDW, CBC, TROPHS, CRP, GFR ####[address] [place], [place] [address] CBCon 01-29-2025 Erythrocyte distribution width (RBC) [Ratio] 15.7 % High 11.5-15.5 [facility] Comment on above: Performed By: #### B MP, MORPH, DIFF, ESR, MDW, CBC, TROPHS, CRP, GFR ####[address] [address] Hematocrit (Bld) [Volume fraction] 20.5 % Low 40.0-52.0 [facility] Comment on above: Performed By: #### B MP, MORPH, DIFF, ESR, MDW, CBC, TROPHS, CRP, GFR ####[address] [place], [place] [address] Hgb 6.7 G/dL Critically abnormal 13.0-17.5 [facility] Comment on above: Performed By: #### B MP, MORPH, DIFF, ESR, MDW, CBC, TROPHS, CRP, GFR ####[address] [place], [place] [address] MCH (RBC) [Entitic mass] 27.5 pg Normal 27.0-33.0 [facility] Comment on above: Performed By: #### B MP, MORPH, DIFF, ESR, MDW, CBC, TROPHS, CRP, GFR ####[address] [place], [place] [address] MCHC 32.8 G/dL Normal 32.0-36.0 [facility] Comment on above: Performed By: #### B MP, MORPH, DIFF, ESR, MDW, CBC, TROPHS, CRP, GFR ####[facility] [place], [place] [address] MCV (RBC) [Entitic vol] 83.9 fL Normal 81.0-100.0 [facility] Comment on above: Performed By: #### B MP, MORPH, DIFF, ESR, MDW, CBC, TROPHS, CRP, GFR ####[address] [place], [place] [address] Platelet 165 10 3/mcL Normal 150-450 [facility] Comment on above: Performed By: #### B MP, MORPH, DIFF, ESR, MDW, CBC, TROPHS, CRP, GFR ####[address] [place], [place] [address] Platelet mean volume (Bld) [Entitic vol] 7.5 fL Normal 6.4-10.5 [facility] Comment on above: Performed By: #### B MP, MORPH, DIFF, ESR, MDW, CBC, TROPHS, CRP, GFR ####[facility] [place], [place] [address] RBC 2.44 10 6/mcL Low 4.50-6.00 [facility] Comment on above: Performed By: #### B MP, MORPH, DIFF, ESR, MDW, CBC, TROPHS, CRP, GFR ####[facility] [place], [place] [address] WBC 5.0 10 3/mcL Normal 4.5-10.8 [facility] Comment on above: Performed By: #### B MP, MORPH, DIFF, ESR, MDW, CBC, TROPHS, CRP, GFR ####[facility] [place], [place] [address] CRPon 01-29-2025 C-Reactive Protein 3.1 mg/dL High 0.0-0.3 [facility] Comment on above: Performed By: #### B MP, MORPH, DIFF, ESR, MDW, CBC, TROPHS, CRP, GFR ####[address] [place], [place] [address] CT THORAX W/ CONTRASTon CT THORAX W/ CONTRAST ORIGINAL EXAMINATION: CT OF THE CHEST WITH CONTRAST 01/29/2025 8:17 pm TECHNIQUE: CT of the chest was performed with the administration of intravenous contrast. Multiplanar reformatted images are provided for review. Automated exposure control, iterative reconstruction, and/or weight based adjustment of the mA/kV was utilized to reduce the radiation dose to as low as reasonably achievable. COMPARISON: 12/18/2024, 01/04/2025 HISTORY: ORDERING SYSTEM PROVIDED HISTORY: Reason for Exam: possible infection upper left chest post pacemaker installation on Friday. pt is having drainage and pain at surgical sight. pt unable to raise left arm Soft tissue infection suspected, chest, no prior imaging FINDINGS: Mediastinum: The aorta and main pulmonary artery are normal in caliber. Mild cardiomegaly is similar to prior exam. There are no pathologically enlarged mediastinal lymph nodes. There is no pericardial effusion. Atherosclerotic calcifications are seen within the coronary arteries and aorta. Lungs/pleura: Interval improvement of right pleural effusion. There is still a trace amount of right pleural fluid. Again demonstrated is right-sided pleural thickening and right upper peritoneal thickening. Improving right middle lobe and right lower lobe airspace disease. Septal thickening is improved compared to prior exam. No pneumothorax. No mass is seen. There are a few scattered calcified granulomas. Upper Abdomen: No acute process in the visualized portions of the upper abdomen. Atrophic left kidney. Similar appearing peritoneal thickening around the liver. Soft Tissues/Bones: No acute osseous abnormality. Mild degenerative changes of the thoracic spine. There is a large collection in the left chest wall near the pacemaker site which is difficult to measure and incompletely visualized on this CT due to streak artifacts from the pacemaker. Locules of air are seen superiorly within the collection. IMPRESSION: 1. Large collection in the left anterior chest wall surrounds the pacemaker and contains locules of air, concerning for an abscess. 2. Slight interval improvement of right lower and middle lobe airspace disease. 3. Probably resolved edema with trace right effusion. 4. Other stable findings as above. I have personally reviewed the images of this examination and agree with the resident's findings and interpretation. Interpreted by: [place] Rachel, DO Preliminary Report By: Daron Olivo Electronically signed By Nayeli España DO Dictated Date: 01/29/2025 8:30:31 PM Prelim Date: 01/29/2025 8:49:51 PM Sign Date: 01/29/2025 9:04:32 PM Ordering Provider: [address] [facility] ESRon 01-29-2025 Erythrocyte Sed Rate 22 mm/hr High 0-20 [facility] Comment on above: Performed By: #### B MP, MORPH, DIFF, ESR, MDW, CBC, TROPHS, CRP, GFR ####[address] [place] [address] LABORATORYOrdered By: Constanza Joy on 01-29-2025 ABO and Rh group Nom (Bld) Blood group O Rh(D) positive Invalid Interpretation Code AO BB Auto SS Blood group antibody screen Ql Negative ABSC (01/29/25 8:19 PM) Normal AO BB Auto SS RBC Product Ready RBC Ready for Pickup (01/29/25 8:04 PM) Normal AO BB SS ESR Photometric method (Bld) [Velocity] 22 mm/hr High 0 - 20 mm/hr AO Man Heme SS LABORATORYOrdered By: SYSTEM SYSTEM on 01-29-2025 CRP [Mass/Vol] 3.1 mg/dL High 0.0 - 0.3 mg/dL AO ADM SS Anisocytosis Ql (Bld) 1+ *NA* (01/29/25 7:33 PM) Invalid Interpretation Code AO Workflow SS Basophil %, Manual 0.0 % Normal 0.0 - 2.5 % AO Wo rkflow SS Basophils (Bld) [#/Vol] 0.0 103/mcL Normal 0.0 - 0.3 10^3/mcL AO Workflow SS Calcium [Mass/Vol] 8.3 mg/dL Low 8.4 - 10. 2 mg/dL AO ADM SS Chloride [Moles/Vol] 98 mmol/L Normal 98 - 10 7 mmol/L AO ADM SS CO2 [Moles/Vol] 33 mmol/L High 22 - 29 mmol/L AO ADM SS Creatinine [Mass/Vol] 11.99 mg/dL High 0.67 - 1.17 mg/dL AO ADM SS Electrolyte Balance 7.0 mEq/L Normal 4.0 - 15 .0 mEq/L AO ADM SS Eosinophil %, Manual 3.0 % Normal 0.0 - 6.0 % AO Workflow SS Eosinophils (Bld) [#/Vol] 0.2 103/mcL Normal 0.0 - 0.7 10^3/mcL AO Workflow SS Erythrocyte distribution width (RBC) [Ratio] 15.7 % High 11.5 - 15.5 % AO Workflow SS Estimated Glomerular Filtration Rate 5 ml/min/1.73sqm Invalid Interpretation Code AO Chemistry S Comment on above: Interpretive Data: Stages of Chronic Kidney Disease (CKD) Stage Description eGFR(ml/min/1.73 sq.m.) CKD 1 Normal kidney function or >=90 normal kindney function with possible kidney damage (ex. Proteinuria) CKD 2 Kidney damage with mild loss 60-89 of kidney function CKD 3a Mild to moderate loss of kidney 45-59 function CKD 3b Moderate to severe loss of 30-44 of kindey function CKD 4 Severe loss of kidney function 15-29 CKD 5 Kidney failure <15 Note: (go live 2024) the eGFR calculation was updated to the 2020 CKD-EPI creatinine equation without a race factor to calculate the eGFR results. Glucose [Mass/Vol] 97 mg/dL Normal 70 - 105 mg/dL AO ADM SS Hematocrit (Bld) [Volume fraction] 20.5 % Low 40.0 - 52.0 % AO Workflow SS Hemoglobin (Bld) [Mass/Vol] 6.7 G/dL Invalid Interpretation Code 13.0 - 17.5 G/dL AO Workflow SS Hypochromia Ql (Bld) 1+ *NA* (01/29/25 7:33 PM) Invalid Interpretation Code AO Workflow SS Lymphocytes (Bld) [#/Vol] 0.9 103/mcL Normal 0.9 - 4.3 10^3/mcL AO Workflow SS Lymphocytes/100 WBC (Bld) 19.0 % Low 20.0 - 40.0 % AO Workflow SS MCH (RBC) [Entitic mass] 27.5 pg Normal 27.0 - 33.0 pg AO Workflow SS MCHC 32.8 G/dL Normal 32.0 - 36.0 G/dL AO Workflow SS MCV (RBC) [Entitic vol] 83.9 fL Normal 81.0 - 100.0 fL AO Workflow SS Microcytes Ql (Bld) 1+ *NA* (01/29/25 7:33 PM) Invalid Interpretation Code AO Workflow SS Monocyte distribution width Auto (Bld) [Entitic vol] 18.67 1 Normal 0.00 - 20.00 AO Workflow SS Comment on above: Result Comment: For ED adult patients suspected of sepsis, MDW<=20.0 does not rule out sepsis or risk of sepsis Monocytes (Bld) [#/Vol] 0.4 103/mcL Normal 0.1 - 1.4 10^3/mcL AO Workflow SS Monocytes/100 WBC (Bld) 8.0 % Normal 2.0 - 13.0 % AO Workflow SS Neutrophils (Bld) [#/Vol] 3.5 103/mcL Normal 2.3 - 8.1 10^3/mcL AO Workflow SS Neutrophils/100 WBC (Bld) 70.0 % Normal 50.0 - 75.0 % AO Workflow SS Nucleated RBC 0.0 /100 WBC Invalid Interpretation Code AO Workflow SS Ovalocytes LM Ql (Bld) 1+ *NA* (01/29/25 7:33 PM) Invalid Interpretation Code AO Workflow SS Platelet mean volume (Bld) [Entitic vol] 7.5 fL Normal 6.4 - 10.5 fL AO Workflow SS Platelets (Bld) [#/Vol] 165 103/mcL Normal 150 - 450 10^3/mcL AO Workflow SS Platelets LM Ql (Bld) Normal *NA* (01/29/25 7:33 PM) Invalid Interpretation Code AO Workflow SS Potassium [Moles/Vol] 4.6 mmol/L Normal 3.5 - 5.1 mmol/L AO ADM SS RBC (Bld) [#/Vol] 2.44 106/mcL Low 4.50 - 6.0 0 10^6/mcL AO Workflow SS Sodium [Moles/Vol] 138 mmol/L Normal 136 - 145 mmol/L AO ADM SS Troponin I.cardiac DL <= 0.01 ng/mL [Mass/Vol] 40 ng/L Normal 0 - 76 ng/L AO ADM SS Comment on above: Interpretive Data: H igh Sensitive Troponin I Reference Ranges: Female: 0-51 ng/L Male: 0-76 ng/L Testing performed on [employer] using a homogeneous sandwich chemiluminescent immunoassay based on [employer] technology. Urea nitrogen [Mass/Vol] 62 mg/dL High 7 - 18 mg/dL AO ADM SS Urea nitrogen/Creatinine [Mass ratio] 5 ratio Low 7 - 27 ratio AO ADM SS WBC (Bld) [#/Vol] 5.0 103/mcL Normal 4.5 - 10.8 10^3/mcL AO Workflow SS RBC (Product)on 01-29-2025 RBC Product Ready RBC Ready for Pickup Normal [facility] Comment on above: Performed By: #### R BCP #### [facility] [address] [place], [place] [address] TROPHSon 01-29-2025 High Sensitivity Troponin I 40 ng/L Normal 0-76 [facility] Comment on above: Result Comment: High Sensitive Troponin I Reference Ranges: Female: 0-51 ng/L Male: 0-76 ng/L Testing performed on [employer] using a homogeneous sandwich chemiluminescent immunoassay based on [employer] technology. Performed By: #### B MP, MORPH, DIFF, ESR, MDW, CBC, TROPHS, CRP, GFR ####[address] [place], [place] [address] .Auto Diffon 01-26-2025 Basophil, Absolute 0.1 10 3/mcL Normal 0.0-0.3 [facility] Comment on above: Performed By: #### A DIFF, GFR, BMP, CBC, ANEU #### [address] [address] Basophils/100 WBC (Bld) 2.5 % Normal 0.0-2.5 [facility] Comment on above: Performed By: #### A DIFF, GFR, BMP, CBC, ANEU #### [address] [address] Eosinophil, Absolute 0.1 10 3/mcL Normal 0.0-0.7 [facility] Comment on above: Performed By: #### A DIFF, GFR, BMP, CBC, ANEU #### [address] [address] Eosinophils/100 WBC (Bld) 2.8 % Normal 0.0-6.0 [facility] Comment on above: Performed By: #### A DIFF, GFR, BMP, CBC, ANEU #### [address] [address] Lymphocyte, Absolute 1.0 10 3/mcL Normal 0.9-4.3 [facility] Comment on above: Performed By: #### A DIFF, GFR, BMP, CBC, ANEU #### [address] [address] Lymphocytes/100 WBC (Bld) 21.3 % Normal 20.0-40.0 [facility] Comment on above: Performed By: #### A DIFF, GFR, BMP, CBC, ANEU #### [address] [address] Monocyte, Absolute 0.4 10 3/mcL Normal 0.1-1.4 [facility] Comment on above: Performed By: #### A DIFF, GFR, BMP, CBC, ANEU #### [address] [address] Monocytes/100 WBC (Bld) 7.9 % Normal 2.0-13.0 [facility] Comment on above: Performed By: #### A DIFF, GFR, BMP, CBC, ANEU #### [address] [address] Neutrophils/100 WBC (Bld) 65.5 % Normal 50.0-75.0 [facility] Comment on above: Performed By: #### A DIFF, GFR, BMP, CBC, ANEU #### [address] [address] .GFRon 01-26-2025 Estimated Glomerular Filtration Rate 4 ml/min/1.73sqm Normal [facility] Comment on above: Result Comment: Stages of Chronic Kidney Disease (CKD) Stage Description eGFR(ml/min/1.73 sq.m.) CKD 1 Normal kidney function or >=90 normal kindney function with possible kidney damage (ex. Proteinuria) CKD 2 Kidney damage with mild loss 60-89 of kidney function CKD 3a Mild to moderate loss of kidney 45-59 function CKD 3b Moderate to severe loss of 30-44 of kindey function CKD 4 Severe loss of kidney function 15-29 CKD 5 Kidney failure <15 Note: (go live 2024) the eGFR calculation was updated to the 2020 CKD-EPI creatinine equation without a race factor to calculate the eGFR results. Performed By: #### A DIFF, GFR, BMP, CBC, ANEU #### [facility] [address] [place], [place] [address] .NEUABSon 01-26-2025 Neutrophil, Absolute 3.2 10 3/mcL Normal 2.3-8.1 [facility] Comment on above: Performed By: #### A DIFF, GFR, BMP, CBC, ANEU #### [address] [address] BMPon 01-26-2025 BUN/Creatinine Ratio 5.0 ratio Low 10.0-22.0 [facility] Comment on above: Performed By: #### A DIFF, GFR, BMP, CBC, ANEU #### [place] [id number] Calcium [Mass/Vol] 8.3 mg/dL Low 8.7-10.4 [facility] Comment on above: Performed By: #### A DIFF, GFR, BMP, CBC, ANEU #### [place] [address] Chloride [Moles/Vol] 98 mmol/L Normal 98-110 [facility] Comment on above: Performed By: #### A DIFF, GFR, BMP, CBC, ANEU #### [place] [id number] CO2 [Moles/Vol] 26 mmol/L Normal 22-32 [facility] Comment on above: Performed By: #### A DIFF, GFR, BMP, CBC, ANEU #### [place] [id number] Creatinine [Mass/Vol] 15.10 mg/dL High 0.60-1.40 [facility] Comment on above: Result Comment: Test ing performed on [employer] analyzer using enzymatic creatinine methodology. Performed By: #### A DIFF, GFR, BMP, CBC, ANEU #### [place] [id number] Electrolyte Balance 16.0 mEq/L High 4.0-15.0 [facility] Comment on above: Performed By: #### A DIFF, GFR, BMP, CBC, ANEU #### [place] [id number] Glucose [Mass/Vol] 91 mg/dL Normal 70-110 [facility] Comment on above: Performed By: #### A DIFF, GFR, BMP, CBC, ANEU #### [place] [address] Potassium [Moles/Vol] 4.5 mmol/L Normal 3.5-5.0 [facility] Comment on above: Performed By: #### A DIFF, GFR, BMP, CBC, ANEU #### [place] [address] Sodium [Moles/Vol] 140 mmol/L Normal 136-145 [facility] Comment on above: Performed By: #### A DIFF, GFR, BMP, CBC, ANEU #### [place] [address] Urea nitrogen [Mass/Vol] 76.0 mg/dL High 8.0-22.0 [facility] Comment on above: Performed By: #### A DIFF, GFR, BMP, CBC, ANEU #### [place] [id number] CBCon 01-26-2025 Erythrocyte distribution width (RBC) [Ratio] 15.1 % Normal 11.5-15.5 [facility] Comment on above: Performed By: #### A DIFF, GFR, BMP, CBC, ANEU #### [place] [address] Hematocrit (Bld) [Volume fraction] 26.8 % Low 40.0-52.0 [facility] Comment on above: Performed By: #### A DIFF, GFR, BMP, CBC, ANEU #### [place] [address] Hgb 8.7 G/dL Low 13.0-17.5 [facility] Comment on above: Performed By: #### A DIFF, GFR, BMP, CBC, ANEU #### [place] [address] MCH (RBC) [Entitic mass] 27.2 pg Normal 27.0-33.0 [facility] Comment on above: Performed By: #### A DIFF, GFR, BMP, CBC, ANEU #### [address] [address] MCHC 32.4 G/dL Normal 32.0-36.0 [facility] Comment on above: Performed By: #### A DIFF, GFR, BMP, CBC, ANEU #### [address] [address] MCV (RBC) [Entitic vol] 83.9 fL Normal 81.0-100.0 [facility] Comment on above: Performed By: #### A DIFF, GFR, BMP, CBC, ANEU #### [place] [address] Platelet 175 10 3/mcL Normal 150-450 [facility] Comment on above: Performed By: #### A DIFF, GFR, BMP, CBC, ANEU #### [place] [address] Platelet mean volume (Bld) [Entitic vol] 8.1 fL Normal 6.4-10.5 [facility] Comment on above: Performed By: #### A DIFF, GFR, BMP, CBC, ANEU #### [address] [address] RBC 3.19 10 6/mcL Low 4.50-6.00 [facility] Comment on above: Performed By: #### A DIFF, GFR, BMP, CBC, ANEU #### [address] [address] WBC 4.9 10 3/mcL Normal 4.5-10.8 [facility] Comment on above: Performed By: #### A DIFF, GFR, BMP, CBC, ANEU #### [address] [address] LABORATORYOrdered By: SYSTEM SYSTEM on 01-26-2025 Basophils (Bld) [#/Vol] 0.1 103/mcL Normal 0.0 - 0.3 10^3/mcL AH Workflow SS Basophils/100 WBC (Bld) 2.5 % Normal 0.0 - 2.5 % AH Workflow SS Calcium [Mass/Vol] 8.3 mg/dL Low 8.7 - 10. 4 mg/dL AH ADM SS Chloride [Moles/Vol] 98 mmol/L Normal 98 - 11 0 mEq/L AH ADM SS CO2 [Moles/Vol] 26 mmol/L Normal 22 - 32 mEq/L ADM SS Creatinine [Mass/Vol] 15.10 mg/dL High 0.60 - 1.40 mg/dL ADM SS Comment on above: Interpretive Data: T esting performed on [employer] analyzer using enzymatic creatinine methodology. Electrolyte Balance 16.0 mEq/L High 4.0 - 15 .0 mEq/L ADM SS Eosinophils (Bld) [#/Vol] 0.1 103/mcL Normal 0.0 - 0.7 10^3/mcL Workflow SS Eosinophils/100 WBC (Bld) 2.8 % Normal 0.0 - 6.0 % Workflow SS Erythrocyte distribution width (RBC) [Ratio] 15.1 % Normal 11.5 - 15.5 % Workflow SS Estimated Glomerular Filtration Rate 4 ml/min/1.73sqm Invalid Interpretation Code Chemistry S Comment on above: Interpretive Data: Stages of Chronic Kidney Disease (CKD) Stage Description eGFR(ml/min/1.73 sq.m.) CKD 1 Normal kidney function or >=90 normal kindney function with possible kidney damage (ex. Proteinuria) CKD 2 Kidney damage with mild loss 60-89 of kidney function CKD 3a Mild to moderate loss of kidney 45-59 function CKD 3b Moderate to severe loss of 30-44 of kindey function CKD 4 Severe loss of kidney function 15-29 CKD 5 Kidney failure <15 Note: (go live 2024) the eGFR calculation was updated to the 2020 CKD-EPI creatinine equation without a race factor to calculate the eGFR results. Glucose [Mass/Vol] 91 mg/dL Normal 70 - 110 mg/dL ADM SS Hematocrit (Bld) [Volume fraction] 26.8 % Low 40.0 - 52.0 % Workflow SS Hemoglobin (Bld) [Mass/Vol] 8.7 G/dL Low 13.0 - 17.5 G/dL Workflow SS Lymphocytes (Bld) [#/Vol] 1.0 103/mcL Normal 0.9 - 4.3 10^3/mcL Workflow SS Lymphocytes/100 WBC (Bld) 21.3 % Normal 20.0 - 40.0 % Workflow SS MCH (RBC) [Entitic mass] 27.2 pg Normal 27.0 - 33.0 pg Workflow SS MCHC 32.4 G/dL Normal 32.0 - 36.0 G/dL Workflow SS MCV (RBC) [Entitic vol] 83.9 fL Normal 81.0 - 100.0 fL AH Workflow SS Monocytes (Bld) [#/Vol] 0.4 103/mcL Normal 0.1 - 1.4 10^3/mcL AH Workflow SS Monocytes/100 WBC (Bld) 7.9 % Normal 2.0 - 13.0 % AH Workflow SS Neutrophils (Bld) [#/Vol] 3.2 103/mcL Normal 2.3 - 8.1 10^3/mcL AH Workflow SS Neutrophils/100 WBC (Bld) 65.5 % Normal 50.0 - 75.0 % Workflow SS Platelet mean volume (Bld) [Entitic vol] 8.1 fL Normal 6.4 - 10.5 fL Workflow SS Platelets (Bld) [#/Vol] 175 103/mcL Normal 150 - 450 10^3/mcL Workflow SS Potassium [Moles/Vol] 4.5 mmol/L Normal 3.5 - 5.0 mEq/L ADM SS RBC (Bld) [#/Vol] 3.19 106/mcL Low 4.50 - 6.0 0 10^6/mcL Workflow SS Sodium [Moles/Vol] 140 mmol/L Normal 136 - 145 mEq/L ADM SS Urea nitrogen [Mass/Vol] 76.0 mg/dL High 8.0 - 22.0 mg/dL ADM SS Urea nitrogen/Creatinine [Mass ratio] 5.0 ratio Low 10.0 - 22.0 ratio ADM SS WBC (Bld) [#/Vol] 4.9 103/mcL Normal 4.5 - 10.8 10^3/mcL Workflow SS XR CHEST 2 VIEWSon XR CHEST 2 VIEWS ORIGINAL EXAMINATION: TWO XRAY VIEWS OF THE CHEST01/04/2025 2:08 pm COMPARISON: Chest x-ray 12/18/2024 HISTORY: ORDERING SYSTEM PROVIDED HISTORY: Reason for Exam: CP, hx ICD FINDINGS: Cardiomediastinal contours are within normal limits. ICD is present overlying the left thorax with leads terminating in the right atrium and the right ventricle. There is no evidence of lead fracture. Chronic interstitial right lower lobe consolidation and scarring with a small underlying effusion. Right posterolateral 8th rib hyperdense lesion measuring 6.4 x 8.0 mm may represent nodule versus sclerotic focus. No pneumothorax or pleural effusion. No acute osseous abnormalities. IMPRESSION: Chronic appearing right lower lobe consolidation and or scarring with underlying effusion. Hyperdense lesion measuring 6.4 x 8.0 mm may represent nodule versus sclerotic focus. Recommend radiographic follow-up to resolution. I have personally reviewed the images of this examination and agree with the resident's findings and interpretation. Interpreted by: Aj Dhaliwal MD Preliminary Report By: Christopher Merida Electronically signed By Aj Dhaliwal MD Dictated Date: 01/04/2025 3:25:44 PM Prelim Date: 01/04/2025 4:06:33 PM Sign Date: 01/04/2025 4:06:33 PM Ordering Provider: [address] [facility] .Auto Diffon 12-20-2024 Basophil, Absolute 0.1 10 3/mcL Normal 0.0-0.3 [facility] Comment on above: Performed By: #### A DIFF, GFR, BMP, CBC, ANEU #### [address] [address] Basophils/100 WBC (Bld) 1.0 % Normal 0.0-2.5 [facility] Comment on above: Performed By: #### A DIFF, GFR, BMP, CBC, ANEU #### [address] [address] Eosinophil, Absolute 0.1 10 3/mcL Normal 0.0-0.7 [facility] Comment on above: Performed By: #### A DIFF, GFR, BMP, CBC, ANEU #### [address] [address] Eosinophils/100 WBC (Bld) 1.2 % Normal 0.0-6.0 [facility] Comment on above: Performed By: #### A DIFF, GFR, BMP, CBC, ANEU #### [address] [address] Lymphocyte, Absolute 1.0 10 3/mcL Normal 0.9-4.3 [facility] Comment on above: Performed By: #### A DIFF, GFR, BMP, CBC, ANEU #### [address] [address] Lymphocytes/100 WBC (Bld) 11.6 % Low 20.0-40.0 [facility] Comment on above: Performed By: #### A DIFF, GFR, BMP, CBC, ANEU #### [address] [address] Monocyte, Absolute 1.7 10 3/mcL High 0.1-1.4 [facility] Comment on above: Performed By: #### A DIFF, GFR, BMP, CBC, ANEU #### [address] [address] Monocytes/100 WBC (Bld) 18.9 % High 2.0-13.0 [facility] Comment on above: Performed By: #### A DIFF, GFR, BMP, CBC, ANEU #### [address] [address] Neutrophils/100 WBC (Bld) 67.3 % Normal 50.0-75.0 [facility] Comment on above: Performed By: #### A DIFF, GFR, BMP, CBC, ANEU #### [address] [address] .GFRon 12-20-2024 Estimated Glomerular Filtration Rate 6 ml/min/1.73sqm Normal [facility] Comment on above: Result Comment: Stages of Chronic Kidney Disease (CKD) Stage Description eGFR(ml/min/1.73 sq.m.) CKD 1 Normal kidney function or >=90 normal kindney function with possible kidney damage (ex. Proteinuria) CKD 2 Kidney damage with mild loss 60-89 of kidney function CKD 3a Mild to moderate loss of kidney 45-59 function CKD 3b Moderate to severe loss of 30-44 of kindey function CKD 4 Severe loss of kidney function 15-29 CKD 5 Kidney failure <15 Note: (go live 2024) the eGFR calculation was updated to the 2020 CKD-EPI creatinine equation without a race factor to calculate the eGFR results. Performed By: #### A DIFF, GFR, BMP, CBC, ANEU #### [address] [address] .NEUABSon 12-20-2024 Neutrophil, Absolute 6.1 10 3/mcL Normal 2.3-8.1 [facility] Comment on above: Performed By: #### A DIFF, GFR, BMP, CBC, ANEU #### [place] [address] CBCon 12-20-2024 Erythrocyte distribution width (RBC) [Ratio] 15.4 % Normal 11.5-15.5 [facility] Comment on above: Performed By: #### A DIFF, GFR, BMP, CBC, ANEU #### [place] [address] Hematocrit (Bld) [Volume fraction] 21.8 % Low 40.0-52.0 [facility] Comment on above: Performed By: #### A DIFF, GFR, BMP, CBC, ANEU #### [place] [address] Hgb 7.2 G/dL Low 13.0-17.5 [facility] Comment on above: Performed By: #### A DIFF, GFR, BMP, CBC, ANEU #### [place] [address] MCH (RBC) [Entitic mass] 28.1 pg Normal 27.0-33.0 [facility] Comment on above: Performed By: #### A DIFF, GFR, BMP, CBC, ANEU #### [place] [address] MCHC 33.1 G/dL Normal 32.0-36.0 [facility] Comment on above: Performed By: #### A DIFF, GFR, BMP, CBC, ANEU #### [place] [address] MCV (RBC) [Entitic vol] 85.0 fL Normal 81.0-100.0 [facility] Comment on above: Performed By: #### A DIFF, GFR, BMP, CBC, ANEU #### [place] [address] Platelet 229 10 3/mcL Normal 150-450 [facility] Comment on above: Performed By: #### A DIFF, GFR, BMP, CBC, ANEU #### [place] [address] Platelet mean volume (Bld) [Entitic vol] 7.6 fL Normal 6.4-10.5 [facility] Comment on above: Performed By: #### A DIFF, GFR, BMP, CBC, ANEU #### [place] [address] RBC 2.56 10 6/mcL Low 4.50-6.00 [facility] Comment on above: Performed By: #### A DIFF, GFR, BMP, CBC, ANEU #### [place] [address] WBC 9.0 10 3/mcL Normal 4.5-10.8 [facility] Comment on above: Performed By: #### A DIFF, GFR, BMP, CBC, ANEU #### [place] [address] CMPon 12-20-2024 Albumin/Globulin [Mass ratio] 1.2 {ratio} Normal 0.9-1.6 [facility] Comment on above: Performed By: #### A DIFF, GFR, BMP, CBC, ANEU #### [place] [address] ALP [Catalytic activity/Vol] 59 U/L Normal 38-126 [facility] Comment on above: Performed By: #### A DIFF, GFR, BMP, CBC, ANEU #### [place] [address] ALT [Catalytic activity/Vol] 10 U/L Low 12-55 [facility] Comment on above: Performed By: #### A DIFF, GFR, BMP, CBC, ANEU #### [place] [address] AST [Catalytic activity/Vol] 30 U/L Normal 8-34 [facility] Comment on above: Performed By: #### A DIFF, GFR, BMP, CBC, ANEU #### [place] [address] Bili Total <0.20 Normal 0.20-1.20 [facility] Comment on above: Result Comment: Use of this assay is not recommended for patients undergoing treatment with eltrombopag due to the potential for falsely elevated results. Performed By: #### A DIFF, GFR, BMP, CBC, ANEU #### [facility] [address] [place] [address] Globulin 2.9 G/dL Normal 2.5-4.2 [facility] Comment on above: Performed By: #### A DIFF, GFR, BMP, CBC, ANEU #### [place] [id number] [place] [address] Total Protein 6.4 G/dL Normal 5.7-8.2 [facility] Comment on above: Performed By: #### A DIFF, GFR, BMP, CBC, ANEU #### [place] [id number] [place] [id number] LABORATORYOrdered By: SYSTEM SYSTEM on 12-20-2024 Albumin/Globulin [Mass ratio] 1.2 {ratio} Normal 0.9 - 1.6 ratio AH ADM SS ALP [Catalytic activity/Vol] 59 U/L Normal 38 - 126 U/L ADM SS ALT No additional P-5'-P [Catalytic activity/Vol] 10 U/L Low 12 - 55 U/L AH ADM SS AST [Catalytic activity/Vol] 30 U/L Normal 8 - 34 U/L AH ADM SS Basophils (Bld) [#/Vol] 0.1 103/mcL Normal 0.0 - 0.3 10^3/mcL AH Workflow SS Basophils/100 WBC (Bld) 1.0 % Normal 0.0 - 2.5 % Workflow SS Bilirubin [Mass/Vol] mg/dL Normal 0.20 - 1.20 mg/dL ADM SS Comment on above: Interpretive Data: U se of this assay is not recommended for patients undergoing treatment with eltrombopag due to the potential for falsely elevated results. Eosinophils (Bld) [#/Vol] 0.1 103/mcL Normal 0.0 - 0.7 10^3/mcL Workflow SS Eosinophils/100 WBC (Bld) 1.2 % Normal 0.0 - 6.0 % Workflow SS Erythrocyte distribution width (RBC) [Ratio] 15.4 % Normal 11.5 - 15.5 % Workflow SS Estimated Glomerular Filtration Rate 6 ml/min/1.73sqm Invalid Interpretation Code AH ADM SS Comment on above: Interpretive Data: Stages of Chronic Kidney Disease (CKD) Stage Description eGFR(ml/min/1.73 sq.m.) CKD 1 Normal kidney function or >=90 normal kindney function with possible kidney damage (ex. Proteinuria) CKD 2 Kidney damage with mild loss 60-89 of kidney function CKD 3a Mild to moderate loss of kidney 45-59 function CKD 3b Moderate to severe loss of 30-44 of kindey function CKD 4 Severe loss of kidney function 15-29 CKD 5 Kidney failure <15 Note: (go live 2024) the eGFR calculation was updated to the 2020 CKD-EPI creatinine equation without a race factor to calculate the eGFR results. Globulin 2.9 G/dL Normal 2.5 - 4.2 G/dL AH ADM SS Hematocrit (Bld) [Volume fraction] 21.8 % Low 40.0 - 52.0 % AH Workflow SS Hemoglobin (Bld) [Mass/Vol] 7.2 G/dL Low 13.0 - 17.5 G/dL AH Workflow SS Lymphocytes (Bld) [#/Vol] 1.0 103/mcL Normal 0.9 - 4.3 10^3/mcL AH Workflow SS Lymphocytes/100 WBC (Bld) 11.6 % Low 20.0 - 40.0 % AH Workflow SS Magnesium [Mass/Vol] 2.3 mg/dL Normal 1.6 - 2 .4 mg/dL AH ADM SS MCH (RBC) [Entitic mass] 28.1 pg Normal 27.0 - 33.0 pg AH Workflow SS MCHC 33.1 G/dL Normal 32.0 - 36.0 G/dL AH Workflow SS MCV (RBC) [Entitic vol] 85.0 fL Normal 81.0 - 100.0 fL AH Workflow SS Monocytes (Bld) [#/Vol] 1.7 103/mcL High 0.1 - 1.4 10^3/mcL AH Workflow SS Monocytes/100 WBC (Bld) 18.9 % High 2.0 - 13.0 % AH Workflow SS Neutrophils (Bld) [#/Vol] 6.1 103/mcL Normal 2.3 - 8.1 10^3/mcL AH Workflow SS Neutrophils/100 WBC (Bld) 67.3 % Normal 50.0 - 75.0 % AH Workflow SS Phosphate [Mass/Vol] 6.4 mg/dL High 2.4 - 5 .1 mg/dL AH ADM SS Platelet mean volume (Bld) [Entitic vol] 7.6 fL Normal 6.4 - 10.5 fL AH Workflow SS Platelets (Bld) [#/Vol] 229 103/mcL Normal 150 - 450 10^3/mcL AH Workflow SS Protein [Mass/Vol] 6.4 G/dL Normal 5.7 - 8.2 G/dL AH ADM SS RBC (Bld) [#/Vol] 2.56 106/mcL Low 4.50 - 6.0 0 10^6/mcL AH Workflow SS WBC (Bld) [#/Vol] 9.0 103/mcL Normal 4.5 - 10.8 10^3/mcL AH Workflow SS Laboratory - Chemistry and C hemistry - challengeOrdered By: SYSTEM SYSTEM on 12-20-2024 Albumin BCP dye [Mass/Vol] 3.5 G/dL Normal 3.2 - 4.8 G/dL ADM SS Calcium [Mass/Vol] 8.4 mg/dL Low 8.7 - 10. 4 mg/dL AH ADM SS Chloride [Moles/Vol] 99 mmol/L Normal 98 - 11 0 mEq/L AH ADM SS CO2 [Moles/Vol] 28 mmol/L Normal 22 - 32 mEq/L AH ADM SS Creatinine [Mass/Vol] 9.51 mg/dL High 0.60 - 1.40 mg/dL AH ADM SS Comment on above: Interpretive Data: T esting performed on [employer] analyzer using enzymatic creatinine methodology. Glucose [Mass/Vol] 88 mg/dL Normal 70 - 110 mg/dL AH ADM SS Potassium [Moles/Vol] 4.3 mmol/L Normal 3.5 - 5.0 mEq/L AH ADM SS Sodium [Moles/Vol] 138 mmol/L Normal 136 - 145 mEq/L AH ADM SS Urea nitrogen [Mass/Vol] 30.0 mg/dL High 8.0 - 22.0 mg/dL AH ADM SS Urea nitrogen/Creatinine [Mass ratio] 3.2 ratio Low 10.0 - 22.0 ratio AH ADM SS MGon 12-20-2024 Magnesium [Mass/Vol] 2.3 mg/dL Normal 1.6-2.4 [facility] Comment on above: Performed By: #### A DIFF, GFR, BMP, CBC, ANEU #### [place] [address] No Panel InformationOrdered By: SYSTEM SYSTEM on 12-20-2024 Electrolyte Balance 11.0 mEq/L Normal 4.0 - 15 .0 mEq/L ADM SS RFPon 12-20-2024 Albumin Level 3.5 G/dL Normal 3.2-4.8 [facility] Comment on above: Performed By: #### A DIFF, GFR, BMP, CBC, ANEU #### [address] [address] BUN/Creatinine Ratio 3.2 ratio Low 10.0-22.0 [facility] Comment on above: Performed By: #### A DIFF, GFR, BMP, CBC, ANEU #### [address] [address] Calcium [Mass/Vol] 8.4 mg/dL Low 8.7-10.4 [facility] Comment on above: Performed By: #### A DIFF, GFR, BMP, CBC, ANEU #### [address] [address] Chloride [Moles/Vol] 99 mmol/L Normal 98-110 [facility] Comment on above: Performed By: #### A DIFF, GFR, BMP, CBC, ANEU #### [address] [address] CO2 [Moles/Vol] 28 mmol/L Normal 22-32 [facility] Comment on above: Performed By: #### A DIFF, GFR, BMP, CBC, ANEU #### [address] [address] Creatinine [Mass/Vol] 9.51 mg/dL High 0.60-1.40 [facility] Comment on above: Result Comment: Test ing performed on [employer] analyzer using enzymatic creatinine methodology. Performed By: #### A DIFF, GFR, BMP, CBC, ANEU #### [address] [address] Electrolyte Balance 11.0 mEq/L Normal 4.0-15.0 [facility] Comment on above: Performed By: #### A DIFF, GFR, BMP, CBC, ANEU #### [address] [address] Glucose [Mass/Vol] 88 mg/dL Normal 70-110 [facility] Comment on above: Performed By: #### A DIFF, GFR, BMP, CBC, ANEU #### [address] [address] Phosphate [Mass/Vol] 6.4 mg/dL High 2.4-5.1 [facility] Comment on above: Performed By: #### A DIFF, GFR, BMP, CBC, ANEU #### [place] [id number] Potassium [Moles/Vol] 4.3 mmol/L Normal 3.5-5.0 [facility] Comment on above: Performed By: #### A DIFF, GFR, BMP, CBC, ANEU #### [address] [address] Sodium [Moles/Vol] 138 mmol/L Normal 136-145 [facility] Comment on above: Performed By: #### A DIFF, GFR, BMP, CBC, ANEU #### [place] [id number] Urea nitrogen [Mass/Vol] 30.0 mg/dL High 8.0-22.0 [facility] Comment on above: Performed By: #### A DIFF, GFR, BMP, CBC, ANEU #### [address] [address] .Auto Diffon 12-19-2024 Basophil, Absolute 0.0 10 3/mcL Normal 0.0-0.3 [facility] Comment on above: Performed By: #### A DIFF, GFR, BMP, CBC, ANEU #### [address] [address] Basophils/100 WBC (Bld) 0.6 % Normal 0.0-2.5 [facility] Comment on above: Performed By: #### A DIFF, GFR, BMP, CBC, ANEU #### [address] [address] Eosinophil, Absolute 0.0 10 3/mcL Normal 0.0-0.7 [facility] Comment on above: Performed By: #### A DIFF, GFR, BMP, CBC, ANEU #### [address] [address] Eosinophils/100 WBC (Bld) 0.3 % Normal 0.0-6.0 [facility] Comment on above: Performed By: #### A DIFF, GFR, BMP, CBC, ANEU #### [address] [address] Lymphocyte, Absolute 0.9 10 3/mcL Normal 0.9-4.3 [facility] Comment on above: Performed By: #### A DIFF, GFR, BMP, CBC, ANEU #### [address] [address] Lymphocytes/100 WBC (Bld) 12.9 % Low 20.0-40.0 [facility] Comment on above: Performed By: #### A DIFF, GFR, BMP, CBC, ANEU #### [address] [address] Monocyte, Absolute 0.9 10 3/mcL Normal 0.1-1.4 [facility] Comment on above: Performed By: #### A DIFF, GFR, BMP, CBC, ANEU #### [address] [address] Monocytes/100 WBC (Bld) 13.1 % High 2.0-13.0 [facility] Comment on above: Performed By: #### A DIFF, GFR, BMP, CBC, ANEU #### [address] [address] Neutrophils/100 WBC (Bld) 73.1 % Normal 50.0-75.0 [facility] Comment on above: Performed By: #### A DIFF, GFR, BMP, CBC, ANEU #### [address] [address] .GFRon 12-19-2024 Estimated Glomerular Filtration Rate 5 ml/min/1.73sqm Normal [facility] Comment on above: Result Comment: Stages of Chronic Kidney Disease (CKD) Stage Description eGFR(ml/min/1.73 sq.m.) CKD 1 Normal kidney function or >=90 normal kindney function with possible kidney damage (ex. Proteinuria) CKD 2 Kidney damage with mild loss 60-89 of kidney function CKD 3a Mild to moderate loss of kidney 45-59 function CKD 3b Moderate to severe loss of 30-44 of kindey function CKD 4 Severe loss of kidney function 15-29 CKD 5 Kidney failure <15 Note: (go live 2024) the eGFR calculation was updated to the 2020 CKD-EPI creatinine equation without a race factor to calculate the eGFR results. Performed By: #### A DIFF, GFR, BMP, CBC, ANEU #### [address] [address] .NEUABSon 12-19-2024 Neutrophil, Absolute 4.9 10 3/mcL Normal 2.3-8.1 [facility] Comment on above: Performed By: #### A DIFF, GFR, BMP, CBC, ANEU #### [place] [id number] BGon 12-19-2024 Base excess Calc (Bld) [Moles/Vol] 3.0 mmol/L Normal [facility] Comment on above: Performed By: #### A DIFF, GFR, BMP, CBC, ANEU #### [place] [address] CO2 [Moles/Vol] 29.5 mmol/L Normal 22.0-30.0 [facility] Comment on above: Performed By: #### A DIFF, GFR, BMP, CBC, ANEU #### [place] [address] HCO3 (Bld) [Moles/Vol] 28.1 mmol/L Normal 21.0-29.0 [facility] Comment on above: Performed By: #### A DIFF, GFR, BMP, CBC, ANEU #### [place] [address] Oxygen (Bld) [Partial pressure] 141.8 mm[Hg] High 74.0-108.0 [facility] Comment on above: Performed By: #### A DIFF, GFR, BMP, CBC, ANEU #### [place] [address] Oxygen saturation in Blood 99.1 % High 92.0-96.0 [facility] Comment on above: Performed By: #### A DIFF, GFR, BMP, CBC, ANEU #### [address] [address] pCO2 45.7 mmHg Normal 32.0-46.0 [facility] Comment on above: Performed By: #### A DIFF, GFR, BMP, CBC, ANEU #### [place] [address] pH (Bld) 7.406 [pH] Normal 7.380-7.460 [facility] Comment on above: Performed By: #### A DIFF, GFR, BMP, CBC, ANEU #### [place] [address] CBCon 12-19-2024 Erythrocyte distribution width (RBC) [Ratio] 15.1 % Normal 11.5-15.5 [facility] Comment on above: Performed By: #### A DIFF, GFR, BMP, CBC, ANEU #### [place] [address] Hematocrit (Bld) [Volume fraction] 22.3 % Low 40.0-52.0 [facility] Comment on above: Performed By: #### A DIFF, GFR, BMP, CBC, ANEU #### [place] [address] Hgb 7.3 G/dL Low 13.0-17.5 [facility] Comment on above: Performed By: #### A DIFF, GFR, BMP, CBC, ANEU #### [place] [address] MCH (RBC) [Entitic mass] 27.8 pg Normal 27.0-33.0 [facility] Comment on above: Performed By: #### A DIFF, GFR, BMP, CBC, ANEU #### [place] [address] MCHC 32.7 G/dL Normal 32.0-36.0 [facility] Comment on above: Performed By: #### A DIFF, GFR, BMP, CBC, ANEU #### [place] [address] MCV (RBC) [Entitic vol] 85.0 fL Normal 81.0-100.0 [facility] Comment on above: Performed By: #### A DIFF, GFR, BMP, CBC, ANEU #### [address] [address] Platelet 234 10 3/mcL Normal 150-450 [facility] Comment on above: Performed By: #### A DIFF, GFR, BMP, CBC, ANEU #### [place] [address] Platelet mean volume (Bld) [Entitic vol] 7.6 fL Normal 6.4-10.5 [facility] Comment on above: Performed By: #### A DIFF, GFR, BMP, CBC, ANEU #### [place] [address] RBC 2.62 10 6/mcL Low 4.50-6.00 [facility] Comment on above: Performed By: #### A DIFF, GFR, BMP, CBC, ANEU #### [place] [address] WBC 6.7 10 3/mcL Normal 4.5-10.8 [facility] Comment on above: Performed By: #### A DIFF, GFR, BMP, CBC, ANEU #### [address] [address] CMPon 12-19-2024 Albumin/Globulin [Mass ratio] 1.1 {ratio} Normal 0.9-1.6 [facility] Comment on above: Performed By: #### A DIFF, GFR, BMP, CBC, ANEU #### [place] [id number] ALP [Catalytic activity/Vol] 55 U/L Normal 38-126 [facility] Comment on above: Performed By: #### A DIFF, GFR, BMP, CBC, ANEU #### [place] [id number] ALT/SGPT <8 Low 12-55 [facility] Comment on above: Performed By: #### A DIFF, GFR, BMP, CBC, ANEU #### [place] [address] AST [Catalytic activity/Vol] 13 U/L Normal 8-34 [facility] Comment on above: Performed By: #### A DIFF, GFR, BMP, CBC, ANEU #### [place] [address] Bili Total 0.20 mg/dL Normal 0.20-1.20 [facility] Comment on above: Result Comment: Use of this assay is not recommended for patients undergoing treatment with eltrombopag due to the potential for falsely elevated results. Performed By: #### A DIFF, GFR, BMP, CBC, ANEU #### [place] [address] Globulin 2.9 G/dL Normal 2.5-4.2 [facility] Comment on above: Performed By: #### A DIFF, GFR, BMP, CBC, ANEU #### [place] [address] Total Protein 6.2 G/dL Normal 5.7-8.2 [facility] Comment on above: Performed By: #### A DIFF, GFR, BMP, CBC, ANEU #### [place] [address] LABORATORYOrdered By: Li Rose on 12-19-2024 CO2 [Moles/Vol] 29.5 mmol/L Normal 22.0 - 30.0 mmol/L [facility] SS HCO3 (Bld) [Moles/Vol] 28.1 mmol/L Normal 21.0 - 29.0 mmol/L [facility] SS Oxygen (Bld) [Partial pressure] 141.8 mm[Hg] High 74.0 - 108.0 mm Hg [facility] SS pCO2 45.7 mm[Hg] Normal 32.0 - 46.0 mm Hg [facility] SS pH (Bld) 7.406 [pH] Normal 7.380 - 7.460 [facility] SS Sodium [Moles/Vol] 3.0 mmol/L Invalid Interpretation Code Main [facility] Comm SS LABORATORYOrdered By: SYSTEM SYSTEM on 12-19-2024 Albumin/Globulin [Mass ratio] 1.1 {ratio} Normal 0.9 - 1.6 ratio ADM SS ALP [Catalytic activity/Vol] 55 U/L Normal 38 - 126 U/L ADM SS ALT No additional P-5'-P [Catalytic activity/Vol] U/L 1 Low 12 - 55 U/L ADM SS AST [Catalytic activity/Vol] 13 U/L Normal 8 - 34 U/L ADM SS Basophils (Bld) [#/Vol] 0.0 103/mcL Normal 0.0 - 0.3 10^3/mcL Workflow SS Basophils/100 WBC (Bld) 0.6 % Normal 0.0 - 2.5 % Workflow SS Bilirubin [Mass/Vol] 0.20 mg/dL Normal 0.20 - 1.20 mg/dL ADM SS Comment on above: Interpretive Data: U se of this assay is not recommended for patients undergoing treatment with eltrombopag due to the potential for falsely elevated results. Eosinophils (Bld) [#/Vol] 0.0 103/mcL Normal 0.0 - 0.7 10^3/mcL Workflow SS Eosinophils/100 WBC (Bld) 0.3 % Normal 0.0 - 6.0 % Workflow SS Erythrocyte distribution width (RBC) [Ratio] 15.1 % Normal 11.5 - 15.5 % Workflow SS Estimated Glomerular Filtration Rate 5 ml/min/1.73sqm Invalid Interpretation Code ADM SS Comment on above: Interpretive Data: Stages of Chronic Kidney Disease (CKD) Stage Description eGFR(ml/min/1.73 sq.m.) CKD 1 Normal kidney function or >=90 normal kindney function with possible kidney damage (ex. Proteinuria) CKD 2 Kidney damage with mild loss 60-89 of kidney function CKD 3a Mild to moderate loss of kidney 45-59 function CKD 3b Moderate to severe loss of 30-44 of kindey function CKD 4 Severe loss of kidney function 15-29 CKD 5 Kidney failure <15 Note: (go live 2024) the eGFR calculation was updated to the 2020 CKD-EPI creatinine equation without a race factor to calculate the eGFR results. Globulin 2.9 G/dL Normal 2.5 - 4.2 G/dL ADM SS Hematocrit (Bld) [Volume fraction] 22.3 % Low 40.0 - 52.0 % Workflow SS Hemoglobin (Bld) [Mass/Vol] 7.3 G/dL Low 13.0 - 17.5 G/dL Workflow SS Lymphocytes (Bld) [#/Vol] 0.9 103/mcL Normal 0.9 - 4.3 10^3/mcL AH Workflow SS Lymphocytes/100 WBC (Bld) 12.9 % Low 20.0 - 40.0 % AH Workflow SS Magnesium [Mass/Vol] 2.2 mg/dL Normal 1.6 - 2 .4 mg/dL AH ADM SS MCH (RBC) [Entitic mass] 27.8 pg Normal 27.0 - 33.0 pg AH Workflow SS MCHC 32.7 G/dL Normal 32.0 - 36.0 G/dL AH Workflow SS MCV (RBC) [Entitic vol] 85.0 fL Normal 81.0 - 100.0 fL AH Workflow SS Monocytes (Bld) [#/Vol] 0.9 103/mcL Normal 0.1 - 1.4 10^3/mcL AH Workflow SS Monocytes/100 WBC (Bld) 13.1 % High 2.0 - 13.0 % AH Workflow SS Neutrophils (Bld) [#/Vol] 4.9 103/mcL Normal 2.3 - 8.1 10^3/mcL AH Workflow SS Neutrophils/100 WBC (Bld) 73.1 % Normal 50.0 - 75.0 % AH Workflow SS Phosphate [Mass/Vol] 8.5 mg/dL High 2.4 - 5 .1 mg/dL AH ADM SS Platelet mean volume (Bld) [Entitic vol] 7.6 fL Normal 6.4 - 10.5 fL AH Workflow SS Platelets (Bld) [#/Vol] 234 103/mcL Normal 150 - 450 10^3/mcL AH Workflow SS Protein [Mass/Vol] 6.2 G/dL Normal 5.7 - 8.2 G/dL AH ADM SS RBC (Bld) [#/Vol] 2.62 106/mcL Low 4.50 - 6.0 0 10^6/mcL AH Workflow SS WBC (Bld) [#/Vol] 6.7 103/mcL Normal 4.5 - 10.8 10^3/mcL AH Workflow SS LABORATORYOrdered By: Linh Suggs on 12-19-2024 Cholesterol [Mass/Vol] 95 mg/dL Normal 50 - 199 mg/dL AH ADM SS Comment on above: Interpretive Data: C holesterol Reference Interval: Less than 200 Desirable 200-239 Borderline high risk 240 and above High risk Cholesterol in HDL [Mass/Vol] 24 mg/dL Low 40 - 59 mg/dL AH ADM SS Cholesterol in LDL [Mass/Vol] 37 mg/dL Normal 0 - 129 mg/dL ADM SS Triglyceride [Mass/Vol] 168 mg/dL High 3 - 149 mg/dL ADM SS LABORATORYOrdered By: Li Roy on 12-19-2024 Blood Glucose Testing Reason Routine (12/19/24 1:04 AM) [facility] Work Phone: Glucose [Mass/Vol] 106 mg/dL Normal 70 - 110 mg/dL [facility] Work Phone: LIPIDon 12-19-2024 Cholesterol [Mass/Vol] 95 mg/dL Normal 50-199 [facility] Comment on above: Result Comment: Chol esterol Reference Interval: Less than 200 Desirable 200-239 Borderline high risk 240 and above High risk Performed By: #### A DIFF, GFR, BMP, CBC, ANEU #### [address] [address] Cholesterol in HDL [Mass/Vol] 24 mg/dL Low 40-59 [facility] Comment on above: Performed By: #### A DIFF, GFR, BMP, CBC, ANEU #### [address] [address] Cholesterol in LDL [Mass/Vol] 37 mg/dL Normal 0-129 [facility] Comment on above: Performed By: #### A DIFF, GFR, BMP, CBC, ANEU #### [address] [address] Triglyceride [Mass/Vol] 168 mg/dL High 3-149 [facility] Comment on above: Performed By: #### A DIFF, GFR, BMP, CBC, ANEU #### [address] [address] Laboratory - Chemistry and C hemistry - challengeOrdered By: SYSTEM SYSTEM on 12-19-2024 Albumin BCP dye [Mass/Vol] 3.3 G/dL Normal 3.2 - 4.8 G/dL ADM SS Calcium [Mass/Vol] 8.1 mg/dL Low 8.7 - 10. 4 mg/dL ADM SS Chloride [Moles/Vol] 98 mmol/L Normal 98 - 11 0 mEq/L AH ADM SS CO2 [Moles/Vol] 28 mmol/L Normal 22 - 32 mEq/L ADM SS Creatinine [Mass/Vol] 11.63 mg/dL High 0.60 - 1.40 mg/dL ADM SS Comment on above: Interpretive Data: T esting performed on [employer] analyzer using enzymatic creatinine methodology. Glucose [Mass/Vol] 91 mg/dL Normal 70 - 110 mg/dL ADM SS Potassium [Moles/Vol] 5.6 mmol/L High 3.5 - 5.0 mEq/L ADM SS Sodium [Moles/Vol] 138 mmol/L Normal 136 - 145 mEq/L ADM SS Urea nitrogen [Mass/Vol] 44.0 mg/dL High 8.0 - 22.0 mg/dL ADM SS Urea nitrogen/Creatinine [Mass ratio] 3.8 ratio Low 10.0 - 22.0 ratio ADM SS MGon 12-19-2024 Magnesium [Mass/Vol] 2.2 mg/dL Normal 1.6-2.4 [facility] Comment on above: Performed By: #### A DIFF, GFR, BMP, CBC, ANEU #### [address] [address] No Panel InformationOrdered By: SYSTEM SYSTEM on 12-19-2024 Electrolyte Balance 12.0 mEq/L Normal 4.0 - 15 .0 mEq/L ADM RFPon 12-19-2024 Albumin Level 3.3 G/dL Normal 3.2-4.8 [facility] Comment on above: Performed By: #### A DIFF, GFR, BMP, CBC, ANEU #### [address] [address] BUN/Creatinine Ratio 3.8 ratio Low 10.0-22.0 [facility] Comment on above: Performed By: #### A DIFF, GFR, BMP, CBC, ANEU #### [address] [address] Calcium [Mass/Vol] 8.1 mg/dL Low 8.7-10.4 [facility] Comment on above: Performed By: #### A DIFF, GFR, BMP, CBC, ANEU #### [address] [address] Chloride [Moles/Vol] 98 mmol/L Normal 98-110 [facility] Comment on above: Performed By: #### A DIFF, GFR, BMP, CBC, ANEU #### [address] [address] CO2 [Moles/Vol] 28 mmol/L Normal 22-32 [facility] Comment on above: Performed By: #### A DIFF, GFR, BMP, CBC, ANEU #### [address] [address] Creatinine [Mass/Vol] 11.63 mg/dL High 0.60-1.40 [facility] Comment on above: Result Comment: Test ing performed on [employer] analyzer using enzymatic creatinine methodology. Performed By: #### A DIFF, GFR, BMP, CBC, ANEU #### [address] [address] Electrolyte Balance 12.0 mEq/L Normal 4.0-15.0 [facility] Comment on above: Performed By: #### A DIFF, GFR, BMP, CBC, ANEU #### [address] [address] Glucose [Mass/Vol] 91 mg/dL Normal 70-110 [facility] Comment on above: Performed By: #### A DIFF, GFR, BMP, CBC, ANEU #### [address] [address] Phosphate [Mass/Vol] 8.5 mg/dL High 2.4-5.1 [facility] Comment on above: Performed By: #### A DIFF, GFR, BMP, CBC, ANEU #### [address] [address] Potassium [Moles/Vol] 5.6 mmol/L High 3.5-5.0 [facility] Comment on above: Performed By: #### A DIFF, GFR, BMP, CBC, ANEU #### [address] [address] Sodium [Moles/Vol] 138 mmol/L Normal 136-145 [facility] Comment on above: Performed By: #### A DIFF, GFR, BMP, CBC, ANEU #### [address] [address] Urea nitrogen [Mass/Vol] 44.0 mg/dL High 8.0-22.0 [facility] Comment on above: Performed By: #### A DIFF, GFR, BMP, CBC, ANEU #### [place] [address] .GFRon 12-18-2024 Estimated Glomerular Filtration Rate 6 ml/min/1.73sqm [facility] Comment on above: Result Comment: Stages of Chronic Kidney Disease (CKD) Stage Description eGFR(ml/min/1.73 sq.m.) CKD 1 Normal kidney function or >=90 normal kindney function with possible kidney damage (ex. Proteinuria) CKD 2 Kidney damage with mild loss 60-89 of kidney function CKD 3a Mild to moderate loss of kidney 45-59 function CKD 3b Moderate to severe loss of 30-44 of kindey function CKD 4 Severe loss of kidney function 15-29 CKD 5 Kidney failure <15 Note: (go live 2024) the eGFR calculation was updated to the 2020 CKD-EPI creatinine equation without a race factor to calculate the eGFR results. Performed By: #### A DIFF, GFR, BMP, CBC, ANEU #### [place] [address] Estimated Glomerular Filtration Rate 3 ml/min/1.73sqm [facility] Comment on above: Result Comment: Stages of Chronic Kidney Disease (CKD) Stage Description eGFR(ml/min/1.73 sq.m.) CKD 1 Normal kidney function or >=90 normal kindney function with possible kidney damage (ex. Proteinuria) CKD 2 Kidney damage with mild loss 60-89 of kidney function CKD 3a Mild to moderate loss of kidney 45-59 function CKD 3b Moderate to severe loss of 30-44 of kindey function CKD 4 Severe loss of kidney function 15-29 CKD 5 Kidney failure <15 Note: (go live 2024) the eGFR calculation was updated to the 2020 CKD-EPI creatinine equation without a race factor to calculate the eGFR results. Performed By: #### A DIFF, GFR, BMP, CBC, ANEU #### [place] [id number] .Manual Diffon 12-18-2024 Basophil %, Manual 0.0 % Normal 0.0-2.5 [facility] Comment on above: Performed By: #### A DIFF, GFR, BMP, CBC, ANEU #### [address] [address] Basophil, Abs Manual 0.0 10 3/mcL Normal 0.0-0.3 [facility] Comment on above: Performed By: #### A DIFF, GFR, BMP, CBC, ANEU #### [address] [address] Eosinophil %, Manual 0.0 % Normal 0.0-6.0 [facility] Comment on above: Performed By: #### A DIFF, GFR, BMP, CBC, ANEU #### [address] [address] Eosinophil, Abs Manual 0.0 10 3/mcL Normal 0.0-0.7 [facility] Comment on above: Performed By: #### A DIFF, GFR, BMP, CBC, ANEU #### [address] [address] Lymphocyte %, Manual 3.0 % Low 20.0-40.0 [facility] Comment on above: Performed By: #### A DIFF, GFR, BMP, CBC, ANEU #### [address] [address] Lymphocyte, Abs Manual 0.3 10 3/mcL Low 0.9-4.3 [facility] Comment on above: Performed By: #### A DIFF, GFR, BMP, CBC, ANEU #### [address] [address] Monocyte %, Manual 0.0 % Low 2.0-13.0 [facility] Comment on above: Performed By: #### A DIFF, GFR, BMP, CBC, ANEU #### [address] [address] Monocyte, Abs Manual 0.0 10 3/mcL Low 0.1-1.4 [facility] Comment on above: Performed By: #### A DIFF, GFR, BMP, CBC, ANEU #### [address] [address] Neutrophil %, Manual 97.0 % High 50.0-75.0 [facility] Comment on above: Performed By: #### A DIFF, GFR, BMP, CBC, ANEU #### [place] [address] Neutrophil, Abs Manual 9.0 10 3/mcL High 2.3-8.1 [facility] Comment on above: Performed By: #### A DIFF, GFR, BMP, CBC, ANEU #### [place] [address] Nucleated RBC 0.0 /100 WBC Normal [facility] Comment on above: Performed By: #### A DIFF, GFR, BMP, CBC, ANEU #### [place] [address] .Morphon 12-18-2024 Platelet Clumps Few Normal [facility] Comment on above: Performed By: #### A DIFF, GFR, BMP, CBC, ANEU #### [place] [address] Platelet Estimate Normal [facility] Comment on above: Performed By: #### A DIFF, GFR, BMP, CBC, ANEU #### [place] [address] Ovalocytes 1+ Normal [facility] Comment on above: Performed By: #### A DIFF, GFR, BMP, CBC, ANEU #### [place] [address] Poik 1+ [facility] Comment on above: Performed By: #### A DIFF, GFR, BMP, CBC, ANEU #### [place] [address] BGon 12-18-2024 Base excess Calc (Bld) [Moles/Vol] -5.8000 mmol/L [facility] Comment on above: Performed By: #### C MP, MG, GFR, ANEU, CBC, ADIFF #### [place] [address] CO2 [Moles/Vol] 20.7 mmol/L Low 22.0-30.0 [facility] Comment on above: Performed By: #### C MP, MG, GFR, ANEU, CBC, ADIFF #### [place] [address] HCO3 (Bld) [Moles/Vol] 19.6 mmol/L Low 21.0-29.0 [facility] Comment on above: Performed By: #### C MP, MG, GFR, ANEU, CBC, ADIFF #### [place] [address] Oxygen (Bld) [Partial pressure] 80.5 mm[Hg] Normal 74.0-108.0 [facility] Comment on above: Performed By: #### C MP, MG, GFR, ANEU, CBC, ADIFF #### [place] [address] Oxygen saturation in Blood 94.2 % Normal 92.0-96.0 [facility] Comment on above: Performed By: #### C MP, MG, GFR, ANEU, CBC, ADIFF #### [place] [address] pCO2 37.6 mmHg Normal 32.0-46.0 [facility] Comment on above: Performed By: #### C MP, MG, GFR, ANEU, CBC, ADIFF #### [place] [address] pH (Bld) 7.334 [pH] Low 7.380-7.460 [facility] Comment on above: Performed By: #### C MP, MG, GFR, ANEU, CBC, ADIFF #### [place] [address] CAIONon 12-18-2024 Calcium Ionized 0.93 mmol/L Low 1.12-1.32 [facility] Comment on above: Performed By: #### A DIFF, GFR, BMP, CBC, ANEU #### [place] [address] CBCon 12-18-2024 WBC 9.3 10 3/mcL Normal 4.5-10.8 [facility] Comment on above: Performed By: #### A DIFF, GFR, BMP, CBC, ANEU #### [place] [address] Platelet 272 10 3/mcL Normal 150-450 [facility] Comment on above: Performed By: #### A DIFF, GFR, BMP, CBC, ANEU #### [place] [address] Platelet mean volume (Bld) [Entitic vol] 7.9 fL Normal 6.4-10.5 [facility] Comment on above: Performed By: #### A DIFF, GFR, BMP, CBC, ANEU #### [place] [address] Erythrocyte distribution width (RBC) [Ratio] 14.9 % Normal 11.5-15.5 [facility] Comment on above: Performed By: #### A DIFF, GFR, BMP, CBC, ANEU #### [place] [address] Hematocrit (Bld) [Volume fraction] 25.1 % Low 40.0-52.0 [facility] Comment on above: Performed By: #### A DIFF, GFR, BMP, CBC, ANEU #### [place] [address] Hgb 8.0 G/dL Low 13.0-17.5 [facility] Comment on above: Performed By: #### A DIFF, GFR, BMP, CBC, ANEU #### [place] [id number] MCH (RBC) [Entitic mass] 27.2 pg Normal 27.0-33.0 [facility] Comment on above: Performed By: #### A DIFF, GFR, BMP, CBC, ANEU #### [place] [address] MCHC 31.8 G/dL Low 32.0-36.0 [facility] Comment on above: Performed By: #### A DIFF, GFR, BMP, CBC, ANEU #### [place] [address] MCV (RBC) [Entitic vol] 85.3 fL Normal 81.0-100.0 [facility] Comment on above: Performed By: #### A DIFF, GFR, BMP, CBC, ANEU #### [place] [id number] RBC 2.94 10 6/mcL Low 4.50-6.00 [facility] Comment on above: Performed By: #### A DIFF, GFR, BMP, CBC, ANEU #### [place] [id number] CMPon 12-18-2024 Albumin Level 3.5 G/dL Normal 3.2-4.8 [facility] Comment on above: Performed By: #### A DIFF, GFR, BMP, CBC, ANEU #### [place] [address] Albumin/Globulin [Mass ratio] 1.1 {ratio} Normal 0.9-1.6 [facility] Comment on above: Performed By: #### A DIFF, GFR, BMP, CBC, ANEU #### [place] [address] ALP [Catalytic activity/Vol] 63 U/L Normal 38-126 [facility] Comment on above: Performed By: #### A DIFF, GFR, BMP, CBC, ANEU #### [place] [address] ALT/SGPT <8 Low 12-55 [facility] Comment on above: Performed By: #### A DIFF, GFR, BMP, CBC, ANEU #### [place] [address] AST [Catalytic activity/Vol] 13 U/L Normal 8-34 [facility] Comment on above: Performed By: #### A DIFF, GFR, BMP, CBC, ANEU #### [place] [address] Bili Total 0.30 mg/dL Normal 0.20-1.20 [facility] Comment on above: Result Comment: Use of this assay is not recommended for patients undergoing treatment with eltrombopag due to the potential for falsely elevated results. Performed By: #### A DIFF, GFR, BMP, CBC, ANEU #### [place] [address] BUN/Creatinine Ratio 3.5 ratio Low 10.0-22.0 [facility] Comment on above: Performed By: #### A DIFF, GFR, BMP, CBC, ANEU #### [address] [address] Calcium [Mass/Vol] 8.5 mg/dL Low 8.7-10.4 [facility] Comment on above: Performed By: #### A DIFF, GFR, BMP, CBC, ANEU #### [address] [address] Chloride [Moles/Vol] 99 mmol/L Normal 98-110 [facility] Comment on above: Performed By: #### A DIFF, GFR, BMP, CBC, ANEU #### [address] [address] CO2 [Moles/Vol] 26 mmol/L Normal 22-32 [facility] Comment on above: Performed By: #### A DIFF, GFR, BMP, CBC, ANEU #### [place] [id number] Creatinine [Mass/Vol] 9.32 mg/dL High 0.60-1.40 [facility] Comment on above: Result Comment: Test ing performed on [employer] analyzer using enzymatic creatinine methodology. Performed By: #### A DIFF, GFR, BMP, CBC, ANEU #### [address] [address] Electrolyte Balance 13.0 mEq/L Normal 4.0-15.0 [facility] Comment on above: Performed By: #### A DIFF, GFR, BMP, CBC, ANEU #### [address] [address] Globulin 3.3 G/dL Normal 2.5-4.2 [facility] Comment on above: Performed By: #### A DIFF, GFR, BMP, CBC, ANEU #### [address] [address] Glucose [Mass/Vol] 114 mg/dL High 70-110 [facility] Comment on above: Performed By: #### A DIFF, GFR, BMP, CBC, ANEU #### [place] [id number] Potassium [Moles/Vol] 4.7 mmol/L Normal 3.5-5.0 [facility] Comment on above: Performed By: #### A DIFF, GFR, BMP, CBC, ANEU #### [address] [address] Sodium [Moles/Vol] 138 mmol/L Normal 136-145 [facility] Comment on above: Performed By: #### A DIFF, GFR, BMP, CBC, ANEU #### [place] [id number] Total Protein 6.8 G/dL Normal 5.7-8.2 [facility] Comment on above: Performed By: #### A DIFF, GFR, BMP, CBC, ANEU #### [place] [id number] Urea nitrogen [Mass/Vol] 33.0 mg/dL High 8.0-22.0 [facility] Comment on above: Performed By: #### A DIFF, GFR, BMP, CBC, ANEU #### [place] [address] Albumin Level 3.5 G/dL Normal 3.2-4.8 [facility] Comment on above: Performed By: #### A DIFF, GFR, BMP, CBC, ANEU #### [place] [id number] Albumin/Globulin [Mass ratio] 1.0 {ratio} Normal 0.9-1.6 [facility] Comment on above: Performed By: #### A DIFF, GFR, BMP, CBC, ANEU #### [address] [address] ALP [Catalytic activity/Vol] 67 U/L Normal 38-126 [facility] Comment on above: Performed By: #### A DIFF, GFR, BMP, CBC, ANEU #### [place] [id number] ALT/SGPT <7 Low 12-55 [facility] Comment on above: Performed By: #### A DIFF, GFR, BMP, CBC, ANEU #### [place] [id number] AST [Catalytic activity/Vol] 15 U/L Normal 8-34 [facility] Comment on above: Performed By: #### A DIFF, GFR, BMP, CBC, ANEU #### [address] [address] Bili Total <0.20 Normal 0.20-1.20 [facility] Comment on above: Result Comment: Use of this assay is not recommended for patients undergoing treatment with eltrombopag due to the potential for falsely elevated results. Performed By: #### A DIFF, GFR, BMP, CBC, ANEU #### [place] [id number] BUN/Creatinine Ratio 3.9 ratio Low 10.0-22.0 [facility] Comment on above: Performed By: #### A DIFF, GFR, BMP, CBC, ANEU #### [address] [address] Calcium [Mass/Vol] 8.1 mg/dL Low 8.7-10.4 [facility] Comment on above: Performed By: #### A DIFF, GFR, BMP, CBC, ANEU #### [place] [id number] Chloride [Moles/Vol] 100 mmol/L Normal 98-110 [facility] Comment on above: Performed By: #### A DIFF, GFR, BMP, CBC, ANEU #### [place] [id number] CO2 [Moles/Vol] 20 mmol/L Low 22-32 [facility] Comment on above: Performed By: #### A DIFF, GFR, BMP, CBC, ANEU #### [address] [address] Creatinine [Mass/Vol] 18.40 mg/dL High 0.60-1.40 [facility] Comment on above: Result Comment: Test ing performed on [employer] analyzer using enzymatic creatinine methodology. Performed By: #### A DIFF, GFR, BMP, CBC, ANEU #### [address] [address] Electrolyte Balance 18.0 mEq/L High 4.0-15.0 [facility] Comment on above: Performed By: #### A DIFF, GFR, BMP, CBC, ANEU #### [address] [address] Globulin 3.6 G/dL Normal 2.5-4.2 [facility] Comment on above: Performed By: #### A DIFF, GFR, BMP, CBC, ANEU #### [address] [address] Glucose [Mass/Vol] 165 mg/dL High 70-110 [facility] Comment on above: Performed By: #### A DIFF, GFR, BMP, CBC, ANEU #### [address] [address] Potassium [Moles/Vol] 5.3 mmol/L High 3.5-5.0 [facility] Comment on above: Performed By: #### A DIFF, GFR, BMP, CBC, ANEU #### [address] [address] Sodium [Moles/Vol] 138 mmol/L Normal 136-145 [facility] Comment on above: Performed By: #### A DIFF, GFR, BMP, CBC, ANEU #### [address] [address] Total Protein 7.1 G/dL Normal 5.7-8.2 [facility] Comment on above: Performed By: #### A DIFF, GFR, BMP, CBC, ANEU #### [address] [address] Urea nitrogen [Mass/Vol] 72.0 mg/dL High 8.0-22.0 [facility] Comment on above: Performed By: #### A DIFF, GFR, BMP, CBC, ANEU #### [address] [address] [address] ANGIOGRAPHY CHEST W/CONTR Shola 12-18-2024 CT ANGIOGRAPHY CHEST W/CONTRAST ORIGINAL EXAMINATION: CTA OF THE CHEST 12/18/2024 5:09 am TECHNIQUE: CTA of the chest was performed after the administration of intravenous contrast. Multiplanar reformatted images are provided for review. MIP images are provided for review. Automated exposure control, iterative reconstruction, and/or weight based adjustment of the mA/kV was utilized to reduce the radiation dose to as low as reasonably achievable. COMPARISON: Chest x-ray on 12/17/2024. CT chest on 09/13/2024. HISTORY: ORDERING SYSTEM PROVIDED HISTORY: Reason for Exam: pt states he began to have midsternal chest pain tonight, now radiating to the left arm upon arrival. pt states hx of pacemaker and dialysis difficulty breathing; suspect PE FINDINGS: Pulmonary Arteries: Pulmonary arteries are adequately opacified for evaluation. No evidence of intraluminal filling defect to suggest pulmonary embolism. The main pulmonary artery is mildly dilated with diameter 3.2 cm. Mediastinum: There is no mediastinal mass or lymph node enlargement. There is moderate generalized enlargement of the heart. Cardiac size is actually increased compared with CT scan on 09/13/2024 from transverse diameter of 14.5 cm to 16 cm. No pericardial fluid is present. There is moderate atherosclerotic coronary artery calcification. The thoracic aorta is nonaneurysmal. Lungs/pleura: There is new small right pleural effusion. Right lower lobe and right middle lobe airspace disease is present. Septal thickening is present bilaterally consistent with pulmonary edema. There is no focal left lung infiltrate and no left pleural fluid. Upper Abdomen: Limited images of the upper abdomen demonstrate peritoneal thickening around the liver which shows only mild progression since 10/11/2021 CT abdomen. Upper pole the left kidney is included and demonstrates chronic atrophy. Soft Tissues/Bones: No acute bone or soft tissue abnormality. IMPRESSION: 1. No evidence of pulmonary embolism. 2. Moderate cardiomegaly with pulmonary edema and small right pleural effusion. 3. Right lower lobe and right middle lobe airspace disease may be due to pneumonia or atelectasis. 4. Peritoneal thickening around the liver shows only mild progression since 10/11/2021. Interpreted by: Raymon Calle MD Preliminary Report By: Raymon Calle MD Electronically signed By Raymon Calle MD Dictated Date: 12/18/2024 5:13:31 AM Prelim Date: 12/18/2024 5:24:11 AM Sign Date: 12/18/2024 5:24:11 AM Ordering Provider: HÉCTOR JEONG Interpreted by: Raymon Calle MD Preliminary Report By: Raymon Calle MD Electronically signed By Raymon Calle MD Dictated Date: 12/18/2024 5:13:31 AM Prelim Date: 12/18/2024 5:24:11 AM Sign Date: 12/18/2024 5:24:11 AM Ordering Provider: HÉCTOR JEONG Normal [facility] HBSAGon 12-18-2024 Hep B Surf Ag Non-Reactive Normal Non-Reactive [facility] Comment on above: Performed By: #### A DIFF, GFR, BMP, CBC, ANEU #### [facility] [address] [place] [address] LABORATORYOrdered By: Li Roy on 12-18-2024 Blood Glucose Testing Reason Routine (12/18/24 8:49 PM) [facility] Work Phone: Glucose [Mass/Vol] 115 mg/dL High 70 - 110 mg/dL [facility] Work Phone: Blood Glucose Testing Reason Routine (12/18/24 5:15 PM) [facility] Work Phone: Glucose [Mass/Vol] 114 mg/dL High 70 - 110 mg/dL [facility] Work Phone: LABORATORYOrdered By: SYSTEM SYSTEM on 12-18-2024 Albumin/Globulin [Mass ratio] 1.1 {ratio} Normal 0.9 - 1.6 ratio ADM SS ALP [Catalytic activity/Vol] 63 U/L Normal 38 - 126 U/L ADM SS ALT No additional P-5'-P [Catalytic activity/Vol] U/L 1 Low 12 - 55 U/L ADM SS AST [Catalytic activity/Vol] 13 U/L Normal 8 - 34 U/L ADM SS Bilirubin [Mass/Vol] 0.30 mg/dL Normal 0.20 - 1.20 mg/dL ADM SS Comment on above: Interpretive Data: U se of this assay is not recommended for patients undergoing treatment with eltrombopag due to the potential for falsely elevated results. Estimated Glomerular Filtration Rate 6 ml/min/1.73sqm Invalid Interpretation Code ADM SS Comment on above: Interpretive Data: Stages of Chronic Kidney Disease (CKD) Stage Description eGFR(ml/min/1.73 sq.m.) CKD 1 Normal kidney function or >=90 normal kindney function with possible kidney damage (ex. Proteinuria) CKD 2 Kidney damage with mild loss 60-89 of kidney function CKD 3a Mild to moderate loss of kidney 45-59 function CKD 3b Moderate to severe loss of 30-44 of kindey function CKD 4 Severe loss of kidney function 15-29 CKD 5 Kidney failure <15 Note: (go live 2024) the eGFR calculation was updated to the 2020 CKD-EPI creatinine equation without a race factor to calculate the eGFR results. Globulin 3.3 G/dL Normal 2.5 - 4.2 G/dL AH ADM SS Magnesium [Mass/Vol] 2.2 mg/dL Normal 1.6 - 2 .4 mg/dL AH ADM SS Protein [Mass/Vol] 6.8 G/dL Normal 5.7 - 8.2 G/dL AH ADM SS Troponin I.cardiac DL <= 0.01 ng/mL [Mass/Vol] 42 ng/L Normal 0 - 54 ng/L AH ADM SS Comment on above: Interpretive Data: High Sensitive Troponin I Reference Ranges: Female: 0-34 ng/L Male: 0-54 ng/L Testing performed on [employer] analyzer using direct chemiluminescent technology. Basophils (Bld) [#/Vol] 0.0 103/mcL Normal 0.0 - 0.3 10^3/mcL AH Workflow SS Basophils/100 WBC (Bld) 0.0 % Normal 0.0 - 2.5 % AH Workflow SS Eosinophils (Bld) [#/Vol] 0.0 103/mcL Normal 0.0 - 0.7 10^3/mcL AH Workflow SS Eosinophils/100 WBC (Bld) 0.0 % Normal 0.0 - 6.0 % AH Workflow SS Erythrocyte distribution width (RBC) [Ratio] 14.9 % Normal 11.5 - 15.5 % AH Workflow SS Hematocrit (Bld) [Volume fraction] 25.1 % Low 40.0 - 52.0 % AH Workflow SS Hemoglobin (Bld) [Mass/Vol] 8.0 G/dL Low 13.0 - 17.5 G/dL AH Workflow SS Lymphocytes (Bld) [#/Vol] 0.3 103/mcL Low 0.9 - 4.3 10^3/mcL AH Workflow SS Lymphocytes/100 WBC (Bld) 3.0 % Low 20.0 - 40.0 % AH Workflow SS MCH (RBC) [Entitic mass] 27.2 pg Normal 27.0 - 33.0 pg AH Workflow SS MCHC 31.8 G/dL Low 32.0 - 36.0 G/dL AH Workflow SS MCV (RBC) [Entitic vol] 85.3 fL Normal 81.0 - 100.0 fL AH Workflow SS Monocytes (Bld) [#/Vol] 0.0 103/mcL Low 0.1 - 1.4 10^3/mcL AH Workflow SS Monocytes/100 WBC (Bld) 0.0 % Low 2.0 - 13.0 % AH Workflow SS Natriuretic peptide.B prohormone N-Terminal IA [Mass/Vol] 028765 pg/mL High 0 - 900 pg/mL AH ADM SS Neutrophils (Bld) [#/Vol] 9.0 103/mcL High 2.3 - 8.1 10^3/mcL AH Workflow SS Neutrophils/100 WBC (Bld) 97.0 % High 50.0 - 75.0 % AH Workflow SS Nucleated RBC 0.0 /100 WBC Invalid Interpretation Code AH Workflow SS Ovalocytes LM Ql (Bld) 1+ *NA* (12/18/24 9:29 AM) Invalid Interpretation Code AH Workflow SS Phosphate [Mass/Vol] 8.0 mg/dL High 2.4 - 5 .1 mg/dL AH ADM SS Platelet Clumps Few *NA* (12/18/24 9:29 AM) Invalid Interpretation Code AH Workflow SS Platelet mean volume (Bld) [Entitic vol] 7.9 fL Normal 6.4 - 10.5 fL AH Workflow SS Platelets (Bld) [#/Vol] 272 103/mcL Normal 150 - 450 10^3/mcL AH Workflow SS Platelets LM Ql (Bld) Normal *NA* (12/18/24 9:29 AM) Invalid Interpretation Code AH Workflow SS Poikilocytosis LM Ql (Bld) 1+ *NA* (12/18/24 9:29 AM) Invalid Interpretation Code AH Workflow SS RBC (Bld) [#/Vol] 2.94 106/mcL Low 4.50 - 6.0 0 10^6/mcL AH Workflow SS Troponin I.cardiac DL <= 0.01 ng/mL [Mass/Vol] 37 ng/L Normal 0 - 54 ng/L AH ADM SS Comment on above: Interpretive Data: High Sensitive Troponin I Reference Ranges: Female: 0-34 ng/L Male: 0-54 ng/L Testing performed on [employer] IM analyzer using direct chemiluminescent technology. TSH Qn 6.993 mIU/mL High 0.550 - 4.780 mIU/mL AH ADM SS WBC (Bld) [#/Vol] 9.3 103/mcL Normal 4.5 - 10.8 10^3/mcL AH Workflow SS LABORATORYOrdered By: Li Rose on 12-18-2024 Calcium Ionized 0.93 mmol/L Low 1.12 - 1.32 mmol/L AH Main Rapid Comm SS LABORATORYOrdered By: Linh Suggs on 12-18-2024 HBV surface Ag IA Ql Non-Reactive (12/18/24 9:29 AM) Normal Non-Reactive AH ADM SS CO2 [Moles/Vol] 20.7 mmol/L Low 22.0 - 30.0 mmol/L AH Main Rapid Comm SS HCO3 (Bld) [Moles/Vol] 19.6 mmol/L Low 21.0 - 29.0 mmol/L Main Rapid Comm SS Oxygen (Bld) [Partial pressure] 80.5 mm[Hg] Normal 74.0 - 108.0 mm Hg AH Main Rapid Comm SS pCO2 37.6 mm[Hg] Normal 32.0 - 46.0 mm Hg AH Main Rapid Comm SS pH (Bld) 7.334 [pH] Low 7.380 - 7.460 AH Main Rapid Comm SS Sodium [Moles/Vol] -5.8000 mmol/L Invalid Interpretation Code Main Rapid Comm SS MGon 12-18-2024 Magnesium [Mass/Vol] 2.2 mg/dL Normal 1.6-2.4 [facility] Comment on above: Performed By: #### A DIFF, GFR, BMP, CBC, ANEU #### [address] [address] Magnesium [Mass/Vol] 2.6 mg/dL High 1.6-2.4 [facility] Comment on above: Performed By: #### A DIFF, GFR, BMP, CBC, ANEU #### [address] [address] PBNPon 12-18-2024 Natriuretic peptide B (Bld) [Mass/Vol] 770657 pg/mL High 0-900 [facility] Comment on above: Performed By: #### A DIFF, GFR, BMP, CBC, ANEU #### [address] 12-18-2024 Phosphate [Mass/Vol] 8.0 mg/dL High 2.4-5.1 [facility] Comment on above: Performed By: #### A DIFF, GFR, BMP, CBC, ANEU #### [address] 12-18-2024 High Sensitivity Troponin I 42 ng/L Normal 0-54 [facility] Comment on above: Result Comment: High Sensitive Troponin I Reference Ranges: Female: 0-34 ng/L Male: 0-54 ng/L Testing performed on [employer] IM analyzer using direct chemiluminescent technology. Performed By: #### A DIFF, GFR, BMP, CBC, ANEU #### [place] [address] High Sensitivity Troponin I 37 ng/L Normal 0-54 [facility] Comment on above: Result Comment: High Sensitive Troponin I Reference Ranges: Female: 0-34 ng/L Male: 0-54 ng/L Testing performed on [employer] IM analyzer using direct chemiluminescent technology. Performed By: #### A DIFF, GFR, BMP, CBC, ANEU #### [place] [address] TSHon 12-18-2024 TSH 6.993 mIU/mL High 0.550-4.780 [facility] Comment on above: Performed By: #### A DIFF, GFR, BMP, CBC, ANEU #### [place] [address] XR CHEST 1 VIEWon 12-18-2024 XR CHEST 1 VIEW ORIGINAL EXAMINATION: ONE XRAY VIEW OF THE CHEST12/18/2024 8:13 am COMPARISON: 12/18/2024 HISTORY: ORDERING SYSTEM PROVIDED HISTORY: Reason for Exam: Intubated FINDINGS: The exam is rotated. Enlarged cardiac silhouette noted. The endotracheal tube projects 5.2 cm above the reyna. The enteric tube courses below the diaphragm. Pacer/defibrillator device seen from a left chest wall approach, unchanged. Loculated right pleural effusions seen. Consolidation is most prevalent at the right lung base. There are some patchy alveolar opacities in the left lung. No visible pneumothorax. No aggressive bony lesions. Bony detail is limited. IMPRESSION: Loculated right pleural effusion. Multifocal airspace disease is most confluent in the right lung base. Follow to resolution. Support devices, as above Interpreted by: Jaycob Grimaldo MD Preliminary Report By: Jaycob Grimaldo MD Electronically signed By Jaycob Grimaldo MD Dictated Date: 12/18/2024 8:32:50 AM Prelim Date: 12/18/2024 8:34:21 AM Sign Date: 12/18/2024 8:34:21 AM Ordering Provider: NOEMÍ MORENO Interpreted by: Jaycob Grimaldo MD Preliminary Report By: Jaycob Grimaldo MD Electronically signed By Jaycob Grimaldo MD Dictated Date: 12/18/2024 8:32:50 AM Prelim Date: 12/18/2024 8:34:21 AM Sign Date: 12/18/2024 8:34:21 AM Ordering Provider: NOEMÍ MORENO [facility] XR CHEST 1 VIEW ORIGINAL EXAMINATION: ONE XRAY VIEW OF THE CHEST 12/18/2024 6:43 am COMPARISON: Chest x-ray on 12/17/2024. CT chest on 12/18/2024 HISTORY: ORDERING SYSTEM PROVIDED HISTORY: Reason for Exam: Tube/line placement Post-intubation FINDINGS: The endotracheal tube tip is 5 cm above the reyna. Enteric tube tip is in the stomach. The side port is at the gastroesophageal junction. Left subclavian cardiac conduction device is in place. Cardiomegaly is stable. Left mid and lower lung zone airspace disease and small left pleural effusion are unchanged. There is no acute left lung infiltrate. No pneumothorax is present. IMPRESSION: 1. Endotracheal tube in satisfactory position. 2. Enteric tube side port is at the gastroesophageal junction. Recommend advancing the enteric tube by 8 cm. 3. Stable left lung infiltrate and small left pleural effusion. Interpreted by: Raymon Calle MD Preliminary Report By: Raymon Calle MD Electronically signed By Raymon Calle MD Dictated Date: 12/18/2024 6:48:01 AM Prelim Date: 12/18/2024 6:50:32 AM Sign Date: 12/18/2024 6:50:32 AM Ordering Provider: HÉCTOR JEONG Interpreted by: Raymon Calle MD Preliminary Report By: Raymon Calle MD Electronically signed By Raymon Calle MD Dictated Date: 12/18/2024 6:48:01 AM Prelim Date: 12/18/2024 6:50:32 AM Sign Date: 12/18/2024 6:50:32 AM Ordering Provider: HÉCTOR JEONG Normal [facility] .Auto Diffon 12-17-2024 Basophil, Absolute 0.1 10 3/mcL Normal 0.0-0.3 [facility] Comment on above: Performed By: #### T ROPHS, PRO, GFR, CBC, ANEU, PBNP, CMP, ADIFF, APTT, W ####[facility] [place], [place] [address] Basophils/100 WBC (Bld) 1.3 % Normal 0.0-2.5 [facility] Comment on above: Performed By: #### T ROPHS, PRO, GFR, CBC, ANEU, PBNP, CMP, ADIFF, APTT, KAYLA ####[facility] [place], [place] [address] Eosinophil, Absolute 0.2 10 3/mcL Normal 0.0-0.7 [facility] Comment on above: Performed By: #### T ROPHS, PRO, GFR, CBC, ANEU, PBNP, CMP, ADIFF, APTT, W ####[facility] [place], [place] [address] Eosinophils/100 WBC (Bld) 4.3 % Normal 0.0-6.0 [facility] Comment on above: Performed By: #### T ROPHS, PRO, GFR, CBC, ANEU, PBNP, CMP, ADIFF, APTT, W ####[facility] [place], [place] [address] Lymphocyte, Absolute 0.8 10 3/mcL Low 0.9-4.3 [facility] Comment on above: Performed By: #### T ROPHS, PRO, GFR, CBC, ANEU, PBNP, CMP, ADIFF, APTT, KAYLA ####[address] [place], [place] [address] Lymphocytes/100 WBC (Bld) 17.5 % Low 20.0-40.0 [facility] Comment on above: Performed By: #### T ROPHS, PRO, GFR, CBC, ANEU, PBNP, CMP, ADIFF, APTT, W ####[address] [place], [place] [address] Monocyte, Absolute 0.8 10 3/mcL Normal 0.1-1.4 [facility] Comment on above: Performed By: #### T ROPHS, PRO, GFR, CBC, ANEU, PBNP, CMP, ADIFF, APTT, KAYLA ####[address] [place], [place] [address] Monocytes/100 WBC (Bld) 16.1 % High 2.0-13.0 [facility] Comment on above: Performed By: #### T ROPHS, PRO, GFR, CBC, ANEU, PBNP, CMP, ADIFF, APTT, KAYLA ####[address] [place], [place] [address] Neutrophils/100 WBC (Bld) 60.8 % Normal 50.0-75.0 [facility] Comment on above: Performed By: #### T ROPHS, PRO, GFR, CBC, ANEU, PBNP, CMP, ADIFF, APTT, KAYLA ####[address] [place], [place] [address] .GFRon 12-17-2024 Estimated Glomerular Filtration Rate 3 ml/min/1.73sqm Normal [facility] Comment on above: Result Comment: Stages of Chronic Kidney Disease (CKD) Stage Description eGFR(ml/min/1.73 sq.m.) CKD 1 Normal kidney function or >=90 normal kindney function with possible kidney damage (ex. Proteinuria) CKD 2 Kidney damage with mild loss 60-89 of kidney function CKD 3a Mild to moderate loss of kidney 45-59 function CKD 3b Moderate to severe loss of 30-44 of kindey function CKD 4 Severe loss of kidney function 15-29 CKD 5 Kidney failure <15 Note: (go live 2024) the eGFR calculation was updated to the 2020 CKD-EPI creatinine equation without a race factor to calculate the eGFR results. Performed By: #### T ROPHS, PRO, GFR, CBC, ANEU, PBNP, CMP, ADIFF, APTT, KAYLA ####[facility] [place], [place] [address] .MDWon 12-17-2024 Monocyte Distribution Width 16.34 Normal 0.00-20.00 [facility] Comment on above: Result Comment: For ED adult patients suspected of sepsis, MDW<=20.0 does not rule out sepsis or risk of sepsis Performed By: #### T ROPHS, PRO, GFR, CBC, ANEU, PBNP, CMP, ADIFF, APTT, KAYLA ####[address] [place] [address] .NEUABSon 12-17-2024 Neutrophil, Absolute 2.9 10 3/mcL Normal 2.3-8.1 [facility] Comment on above: Performed By: #### T ROPHS, PRO, GFR, CBC, ANEU, PBNP, CMP, ADIFF, APTT, KAYLA ####[address] [place] [address] APTTon 12-17-2024 aPTT Coag (Bld) [Time] 38.0 s High 25.0-35.0 [facility] Comment on above: Result Comment: For Heparin anticoagulation therapy, the recommended therapeutic range is: 45.4-75.9 seconds. Patients on heparin therapy may have an extreme result. Performed By: #### T ROPHS, PRO, GFR, CBC, ANEU, PBNP, CMP, ADIFF, APTT, KAYLA ####[address] [place] [address] CBCon 12-17-2024 Erythrocyte distribution width (RBC) [Ratio] 14.9 % Normal 11.5-15.5 [facility] Comment on above: Performed By: #### T ROPHS, PRO, GFR, CBC, ANEU, PBNP, CMP, ADIFF, APTT, KAYLA ####[address] [place] [id number] Hematocrit (Bld) [Volume fraction] 24.4 % Low 40.0-52.0 [facility] Comment on above: Performed By: #### T CARENHS, PRO, GFR, CBC, ANEU, PBNP, CMP, ADIFF, APTT, MDW ####[address] [place], [place] [address] Hgb 8.0 G/dL Low 13.0-17.5 [facility] Comment on above: Performed By: #### T ROPHS, PRO, GFR, CBC, ANEU, PBNP, CMP, ADIFF, APTT, MDW ####[address] [place], [place] [address] MCH (RBC) [Entitic mass] 28.0 pg Normal 27.0-33.0 [facility] Comment on above: Performed By: #### T AMAYA, PRO, GFR, CBC, ANEU, PBNP, CMP, ADIFF, APTT, KAYLA ####[address] [place], [place] [address] MCHC 32.7 G/dL Normal 32.0-36.0 [facility] Comment on above: Performed By: #### T AMAYA, PRO, GFR, CBC, ANEU, PBNP, CMP, ADIFF, APTT, W ####[address] [place], [place] [address] MCV (RBC) [Entitic vol] 85.5 fL Normal 81.0-100.0 [facility] Comment on above: Performed By: #### T CARENHS, PRO, GFR, CBC, ANEU, PBNP, CMP, ADIFF, APTT, MDW ####[address] [place], [place] [address] Platelet 239 10 3/mcL Normal 150-450 [facility] Comment on above: Performed By: #### T ROPHS, PRO, GFR, CBC, ANEU, PBNP, CMP, ADIFF, APTT, MDW ####[address] [place], [place] [address] Platelet mean volume (Bld) [Entitic vol] 7.2 fL Normal 6.4-10.5 [facility] Comment on above: Performed By: #### T AMAYA, PRO, GFR, CBC, ANEU, PBNP, CMP, ADIFF, APTT, KAYLA ####[address] [place], [place] [address] RBC 2.85 10 6/mcL Low 4.50-6.00 [facility] Comment on above: Performed By: #### T AMAYA, PRO, GFR, CBC, ANEU, PBNP, CMP, ADIFF, APTT, KAYLA ####[address] [place], [place] [address] WBC 4.8 10 3/mcL Normal 4.5-10.8 [facility] Comment on above: Performed By: #### T AMAYA, PRO, GFR, CBC, ANEU, PBNP, CMP, ADIFF, APTT, KAYLA ####[address] [place], [place] [address] CMPon 12-17-2024 Albumin Level 3.3 G/dL Low 3.5-5.0 [facility] Comment on above: Performed By: #### T AMAYA, PRO, GFR, CBC, ANEU, PBNP, CMP, ADIFF, APTT, KAYLA ####[address] [place], [place] [address] Albumin/Globulin [Mass ratio] 0.8 {ratio} Low 1.1-2.5 [facility] Comment on above: Performed By: #### T AMAYA, PRO, GFR, CBC, ANEU, PBNP, CMP, ADIFF, APTT, KAYLA ####[address] [place], [place] [address] ALP [Catalytic activity/Vol] 72 U/L Normal 40-135 [facility] Comment on above: Performed By: #### T CARENHS, PRO, GFR, CBC, ANEU, PBNP, CMP, ADIFF, APTT, KAYLA ####[address] [place], [place] [address] ALT [Catalytic activity/Vol] 15 U/L Low 16-63 [facility] Comment on above: Performed By: #### T ROPHS, PRO, GFR, CBC, ANEU, PBNP, CMP, ADIFF, APTT, KAYLA ####[address] [place], [place] [address] AST [Catalytic activity/Vol] 10 U/L Normal 10-40 [facility] Comment on above: Performed By: #### T ROPHS, PRO, GFR, CBC, ANEU, PBNP, CMP, ADIFF, APTT, KAYLA ####[address] [place], [place] [address] Bili Total 0.4 mg/dL Normal 0.2-1.0 [facility] Comment on above: Result Comment: Use of this assay is not recommended for patients undergoing treatment with eltrombopag due to the potential for falsely elevated results. Performed By: #### T ROPHS, PRO, GFR, CBC, ANEU, PBNP, CMP, ADIFF, APTT, KAYLA ####[address] [place], [place] [address] BUN/Creatinine Ratio 4 ratio Low 7-27 [facility] Comment on above: Performed By: #### T ROPHS, PRO, GFR, CBC, ANEU, PBNP, CMP, ADIFF, APTT, KAYLA ####[address] [place], [place] [address] Calcium [Mass/Vol] 7.8 mg/dL Low 8.4-10.2 [facility] Comment on above: Performed By: #### T ROPHS, PRO, GFR, CBC, ANEU, PBNP, CMP, ADIFF, APTT, KAYLA ####[address] [place], [place] [address] Chloride [Moles/Vol] 103 mmol/L Normal 98-107 [facility] Comment on above: Performed By: #### T ROPHS, PRO, GFR, CBC, ANEU, PBNP, CMP, ADIFF, APTT, KAYLA ####[address] [place], [place] [address] CO2 [Moles/Vol] 28 mmol/L Normal 22-29 [facility] Comment on above: Performed By: #### T CARENHS, PRO, GFR, CBC, ANEU, PBNP, CMP, ADIFF, APTT, KAYLA ####[address] [place], [place] [address] Creatinine [Mass/Vol] 16.91 mg/dL High 0.67-1.17 [facility] Comment on above: Performed By: #### T ROPHS, PRO, GFR, CBC, ANEU, PBNP, CMP, ADIFF, APTT, KAYLA ####[address] [place], [place] [address] Electrolyte Balance 13.0 mEq/L Normal 4.0-15.0 [facility] Comment on above: Performed By: #### T CARENHS, PRO, GFR, CBC, ANEU, PBNP, CMP, ADIFF, APTT, KAYLA ####[address] [place], [place] [address] Globulin 4.2 G/dL Normal 2.7-4.4 [facility] Comment on above: Performed By: #### T AMAYA, PRO, GFR, CBC, ANEU, PBNP, CMP, ADIFF, APTT, KAYLA ####[address] [place], [place] [address] Glucose [Mass/Vol] 110 mg/dL High 70-105 [facility] Comment on above: Performed By: #### T AMAYA, PRO, GFR, CBC, ANEU, PBNP, CMP, ADIFF, APTT, KAYLA ####[address] [place], [place] [address] Potassium [Moles/Vol] 4.5 mmol/L Normal 3.5-5.1 [facility] Comment on above: Performed By: #### T CARENHS, PRO, GFR, CBC, ANEU, PBNP, CMP, ADIFF, APTT, KAYLA ####[address] [place], [place] [address] Sodium [Moles/Vol] 144 mmol/L Normal 136-145 [facility] Comment on above: Performed By: #### T ROPHS, PRO, GFR, CBC, ANEU, PBNP, CMP, ADIFF, APTT, W ####[address] [place], [place] [address] Total Protein 7.5 G/dL Normal 6.4-8.2 [facility] Comment on above: Performed By: #### T ROPHS, PRO, GFR, CBC, ANEU, PBNP, CMP, ADIFF, APTT, KAYLA ####[address] [place], [place] [address] Urea nitrogen [Mass/Vol] 73 mg/dL High 7-18 [facility] Comment on above: Performed By: #### T ROPHS, PRO, GFR, CBC, ANEU, PBNP, CMP, ADIFF, APTT, KAYLA ####[address] [place], [place] [address] LABORATORYOrdered By: SYSTEM SYSTEM on 12-17-2024 Troponin I.cardiac DL <= 0.01 ng/mL [Mass/Vol] 29 ng/L Normal 0 - 76 ng/L AO ADM SS Comment on above: Interpretive Data: H igh Sensitive Troponin I Reference Ranges: Female: 0-51 ng/L Male: 0-76 ng/L Testing performed on [employer] using a homogeneous sandwich chemiluminescent immunoassay based on [employer] technology. Albumin BCP dye [Mass/Vol] 3.3 G/dL Low 3.5 - 5.0 G/dL AO ADM SS Albumin/Globulin [Mass ratio] 0.8 {ratio} Low 1.1 - 2.5 ratio AO ADM SS ALP [Catalytic activity/Vol] 72 U/L Normal 40 - 135 U/L AO ADM SS ALT With P-5'-P [Catalytic activity/Vol] 15 U/L Low 16 - 63 U/L AO ADM SS aPTT Coag (PPP) [Time] 38.0 s High 25.0 - 35.0 seconds AO [facility] SS Comment on above: Interpretive Data: F or Heparin anticoagulation therapy, the recommended therapeutic range is: 45.4-75.9 seconds. Patients on heparin therapy may have an extreme result. AST With P-5'-P [Catalytic activity/Vol] 10 U/L Normal 10 - 40 U/L AO ADM SS Basophils (Bld) [#/Vol] 0.1 103/mcL Normal 0.0 - 0.3 10^3/mcL AO Workflow SS Basophils/100 WBC (Bld) 1.3 % Normal 0.0 - 2.5 % AO Workflow SS Bilirubin [Mass/Vol] 0.4 mg/dL Normal 0.2 - 1 .0 mg/dL AO ADM SS Comment on above: Interpretive Data: U se of this assay is not recommended for patients undergoing treatment with eltrombopag due to the potential for falsely elevated results. Calcium [Mass/Vol] 7.8 mg/dL Low 8.4 - 10. 2 mg/dL AO ADM SS Chloride [Moles/Vol] 103 mmol/L Normal 98 - 10 7 mmol/L AO ADM SS CO2 [Moles/Vol] 28 mmol/L Normal 22 - 29 mmol/L AO ADM SS Creatinine [Mass/Vol] 16.91 mg/dL High 0.67 - 1.17 mg/dL AO ADM SS Electrolyte Balance 13.0 mEq/L Normal 4.0 - 15 .0 mEq/L AO ADM SS Eosinophil, Absolute 0.2 103/mcL Normal 0.0 - 0 .7 10^3/mcL AO Workflow SS Eosinophils/100 WBC (Bld) 4.3 % Normal 0.0 - 6.0 % AO Workflow SS Erythrocyte distribution width (RBC) [Ratio] 14.9 % Normal 11.5 - 15.5 % AO Workflow SS Estimated Glomerular Filtration Rate 3 ml/min/1.73sqm Invalid Interpretation Code AO Chemistry S Comment on above: Interpretive Data: Stages of Chronic Kidney Disease (CKD) Stage Description eGFR(ml/min/1.73 sq.m.) CKD 1 Normal kidney function or >=90 normal kindney function with possible kidney damage (ex. Proteinuria) CKD 2 Kidney damage with mild loss 60-89 of kidney function CKD 3a Mild to moderate loss of kidney 45-59 function CKD 3b Moderate to severe loss of 30-44 of kindey function CKD 4 Severe loss of kidney function 15-29 CKD 5 Kidney failure <15 Note: (go live 2024) the eGFR calculation was updated to the 2020 CKD-EPI creatinine equation without a race factor to calculate the eGFR results. Globulin 4.2 G/dL Normal 2.7 - 4.4 G/dL AO ADM SS Glucose [Mass/Vol] 110 mg/dL High 70 - 105 mg/dL AO ADM SS Hematocrit (Bld) [Volume fraction] 24.4 % Low 40.0 - 52.0 % AO Workflow SS Hemoglobin (Bld) [Mass/Vol] 8.0 G/dL Low 13.0 - 17.5 G/dL AO Workflow SS INR Coag (PPP) [Relative time] 1.0 {INR} Invalid Interpretation Code AO [facility] SS Comment on above: Interpretive Data: Omar bishop [employer] [place] [employer] (CHEST, 1991, 102:[id number]) recommended therapeutic range for oral anticoagulant therapy is: LOW RISK: Prophylaxis of venous thrombosis INR: 2.0-3.0 Treatment of pulmonary embolism 2.0-3.0 Prevention of systemic embolism 2.0-3.0 HIGH RISK: Mechanical prosthetic valves 2.5-3.5 Lymphocytes (Bld) [#/Vol] 0.8 103/mcL Low 0.9 - 4.3 10^3/mcL AO Workflow SS Lymphocytes/100 WBC (Bld) 17.5 % Low 20.0 - 40.0 % AO Workflow SS MCH (RBC) [Entitic mass] 28.0 pg Normal 27.0 - 33.0 pg AO Workflow SS MCHC 32.7 G/dL Normal 32.0 - 36.0 G/dL AO Workflow SS MCV (RBC) [Entitic vol] 85.5 fL Normal 81.0 - 100.0 fL AO Workflow SS Monocyte distribution width Auto (Bld) [Entitic vol] 16.34 1 Normal 0.00 - 20.00 AO Workflow SS Comment on above: Result Comment: For ED adult patients suspected of sepsis, MDW<=20.0 does not rule out sepsis or risk of sepsis Monocytes (Bld) [#/Vol] 0.8 103/mcL Normal 0.1 - 1.4 10^3/mcL AO Workflow SS Monocytes/100 WBC (Bld) 16.1 % High 2.0 - 13.0 % AO Workflow SS Neutrophils (Bld) [#/Vol] 2.9 103/mcL Normal 2.3 - 8.1 10^3/mcL AO Workflow SS Neutrophils/100 WBC (Bld) 60.8 % Normal 50.0 - 75.0 % AO Workflow SS Platelet mean volume (Bld) [Entitic vol] 7.2 fL Normal 6.4 - 10.5 fL AO Workflow SS Platelets (Bld) [#/Vol] 239 103/mcL Normal 150 - 450 10^3/mcL AO Workflow SS Potassium [Moles/Vol] 4.5 mmol/L Normal 3.5 - 5.1 mmol/L AO ADM SS Protein [Mass/Vol] 7.5 G/dL Normal 6.4 - 8.2 G/dL AO ADM SS PT Coag (PPP) [Time] 11.9 s Normal 9.0 - 1 4.4 seconds AO [facility] SS RBC (Bld) [#/Vol] 2.85 106/mcL Low 4.50 - 6.0 0 10^6/mcL AO Workflow SS Sodium [Moles/Vol] 144 mmol/L Normal 136 - 145 mmol/L AO ADM SS Troponin I.cardiac DL <= 0.01 ng/mL [Mass/Vol] 35 ng/L Normal 0 - 76 ng/L AO ADM SS Comment on above: Interpretive Data: H igh Sensitive Troponin I Reference Ranges: Female: 0-51 ng/L Male: 0-76 ng/L Testing performed on [employer] using a homogeneous sandwich chemiluminescent immunoassay based on [employer] technology. Urea nitrogen [Mass/Vol] 73 mg/dL High 7 - 18 mg/dL AO ADM SS Urea nitrogen/Creatinine [Mass ratio] 4 ratio Low 7 - 27 ratio AO ADM SS WBC (Bld) [#/Vol] 4.8 103/mcL Normal 4.5 - 10.8 10^3/mcL AO Workflow SS LABORATORYOrdered By: Jennifer Licona on 12-17-2024 Natriuretic peptide.B prohormone N-Terminal [Mass/Vol] pg/mL High 0 - 125 pg/mL AO Chemistry S PBNPon 12-17-2024 N-Terminal proBNP >37680 High 0-125 [facility] Comment on above: Performed By: #### T AMAYA, PRO, GFR, CBC, ANEU, PBNP, CMP, ADIFF, APTT, KAYLA ####[address] [place], [place] [address] PROon 12-17-2024 PT Coag (PPP) [Time] 11.9 s Normal 9.0-14.4 [facility] Comment on above: Performed By: #### T AMAYA, PRO, GFR, CBC, ANEU, PBNP, CMP, ADIFF, APTT, KAYLA ####[address] [place], [place] [address] PT International Ratio 1.0 Normal [facility] Comment on above: Result Comment: [employer] [place] [employer] [place] [employer] (CHEST, 1991, 102:[id number]) recommended therapeutic range for oral anticoagulant therapy is: LOW RISK: Prophylaxis of venous thrombosis INR: 2.0-3.0 Treatment of pulmonary embolism 2.0-3.0 Prevention of systemic embolism 2.0-3.0 HIGH RISK: Mechanical prosthetic valves 2.5-3.5 Performed By: #### T AMAYA, PRO, GFR, CBC, ANEU, PBNP, CMP, ADIFF, APTT, KAYLA ####[address] [place], [place] [address] TROPHSon 12-17-2024 High Sensitivity Troponin I 29 ng/L Normal 0-76 [facility] Comment on above: Result Comment: High Sensitive Troponin I Reference Ranges: Female: 0-51 ng/L Male: 0-76 ng/L Testing performed on [employer] using a homogeneous sandwich chemiluminescent immunoassay based on [employer] technology. Performed By: #### Omar CONDE ###[address] [place], [place] [address] High Sensitivity Troponin I 35 ng/L Normal 0-[address] [place] [address] Comment on above: Result Comment: High Sensitive Troponin I Reference Ranges: Female: 0-51 ng/L Male: 0-76 ng/L Testing performed on [employer] using a homogeneous sandwich chemiluminescent immunoassay based on [employer] technology. Performed By: #### T AMAYA, PRO, GFR, CBC, ANEU, PBNP, CMP, ADIFF, APTT, KAYLA ####[address] [place], [place] [address] XR CHEST 1 VIEWon 12-17-2024 XR CHEST 1 VIEW ORIGINAL EXAMINATION: ONE XRAY VIEW OF THE CHEST12/17/2024 10:29 pm COMPARISON: 10/08/2022 HISTORY: ORDERING SYSTEM PROVIDED HISTORY: Reason for Exam: chest pain FINDINGS: Left chest wall ICD with leads in stable position. Stable cardiomediastinal contours. Small right pleural effusion with adjacent right basilar airspace opacities. No large left pleural effusion or visible pneumothorax. No acute osseous abnormality. IMPRESSION: Small right pleural effusion with adjacent right basilar atelectasis or other airspace disease. Recommend follow-up to resolution. I have reviewed the resident's preliminary report and agree with findings and impression. Interpreted by: Omer Marks Preliminary Report By: Parth Vega Electronically signed By Omer Marks Dictated Date: 12/17/2024 11:26:52 PM Prelim Date: 12/17/2024 11:29:54 PM Sign Date: 12/17/2024 11:40:51 PM Ordering Provider: HÉCTOR JEONG Interpreted by: Omer Marks Preliminary Report By: Parth Vega Electronically signed By Omer Marks Dictated Date: 12/17/2024 11:26:52 PM Prelim Date: 12/17/2024 11:29:54 PM Sign Date: 12/17/2024 11:40:51 PM Ordering Provider: HÉCTOR JEONG Normal [facility] Blood type and Indirect anti body screen panel (Bld)on 12-08-2024 ABO group Nom (Bld) O [facility] Blood group antibody screen Ql Negative [facility] D Ag Ql (Bld) Positive [facility] ABO group Nom (Bld) O Normal [facility] Comment on above: Performed By: #### 3 4532-2 #### MARTINEZ Al ([id number]) [facility] ([facility]) [address] [place] [address] Blood group antibody screen Ql Negative [facility] Comment on above: Performed By: #### 3 4532-2 #### MARTINEZ Al ([id number]) [facility] ([facility]) [address] [place] [address] D Ag Ql (Bld) Positive [facility] Comment on above: Performed By: #### 3 4532-2 #### MARTINEZ Al ([id number]) [facility] ([facility]) [address] [place] [address] CBC W Auto Differential pane l (Bld)on 12-08-2024 Basophils (Bld) [#/Vol] 0.01 10*3/uL [facility] Basophils/100 WBC (Bld) 0.2 % 0.0 - 2.0 % [facility] Eosinophils (Bld) [#/Vol] 0.01 10*3/uL [facility] Eosinophils/100 WBC (Bld) 0.2 % 0.0 - 6.0 % [facility] Erythrocyte distribution width (RBC) [Ratio] 13.2 % 11.5 - 14.5 % [facility] Hematocrit (Bld) [Volume fraction] 23.2 % Low 41.0 - 52.0 % [facility] Hemoglobin (Bld) [Mass/Vol] 7.7 g/dL Low 13.5 - 17.5 g/dL [facility] Immature granulocytes (Bld) [#/Vol] 0.01 10*3/uL [facility] Immature granulocytes/100 WBC (Bld) 0.2 % 0.0 - 0.9 % [facility] Comment on above: Immature Granulocyte Count (IG) includes promyelocytes, myelocytes and metamyelocytes but does not include bands. Percent differential counts (%) should be interpreted in the context of the absolute cell counts (cells/UL). Interpretation and review of laboratory results Abnormal [facility] Lymphocytes (Bld) [#/Vol] 0.37 10*3/uL Low [facility] Lymphocytes/100 WBC (Bld) 7.9 % 13.0 - 44.0 % [facility] MCH (RBC) [Entitic mass] 27.4 pg 26.0 - 34.0 pg [facility] MCHC (RBC) [Mass/Vol] 33.2 g/dL 32.0 - 36.0 g/dL [facility] MCV (RBC) [Entitic vol] 83 fL 80 - 100 fL [facility] Monocytes (Bld) [#/Vol] 0.09 10*3/uL Low [facility] Monocytes/100 WBC (Bld) 1.9 % 2.0 - 10.0 % [facility] Neutrophils (Bld) [#/Vol] 4.22 10*3/uL [facility] Comment on above: Percent differential counts (%) should be interpreted in the context of the absolute cell counts (cells/uL). Neutrophils/100 WBC (Bld) 89.6 % 40.0 - 80.0 % [facility] Nucleated RBC/100 WBC (Bld) [Ratio] 0 % [facility] Platelets (Bld) [#/Vol] 191 10*3/uL [facility] RBC (Bld) [#/Vol] 2.81 10*6/uL Low [facility] WBC (Bld) [#/Vol] 4.7 10*3/uL [facility] Basophils (Bld) [#/Vol] 0.01 x10*3/uL Normal 0.00-0.10 [facility] Comment on above: Performed By: #### 5 7021-8 #### MARTINEZ Al ([id number]) [facility] ([facility]) [address] [place] [address] 66227 Basophils/100 WBC (Bld) 0.2 % Normal 0.0-2.0 [facility] Comment on above: Performed By: #### 5 7021-8 #### MARTINEZ Al ([id number]) [facility] ([facility]) [address] [place] [address] 18360 Eosinophils (Bld) [#/Vol] 0.01 x10*3/uL Normal 0.00-0.70 [facility] Comment on above: Performed By: #### 5 7021-8 #### MARTINEZ Al ([id number]) [facility] ([facility]) [address] [place] [address] 16313 Eosinophils/100 WBC (Bld) 0.2 % Normal 0.0-6.0 [facility] Comment on above: Performed By: #### 5 7021-8 #### MARTINEZ Al ([id number]) [facility] ([facility]) [address] [place] [address] 01425 Erythrocyte distribution width (RBC) [Ratio] 13.2 % Normal 11.5-14.5 [facility] Comment on above: Performed By: #### 5 7021-8 #### MARTINEZ Al ([id number]) [facility] ([facility]) [address] [place] [address] 02020 Hematocrit (Bld) [Volume fraction] 23.2 % Low 41.0-52.0 [facility] Comment on above: Performed By: #### 5 7021-8 #### MARTINEZ CERDAMOALYSAER L ([id number]) [facility] ([facility]) [address] [place] [address] 86015 Hemoglobin (Bld) [Mass/Vol] 7.7 g/dL Low 13.5-17.5 [facility] Comment on above: Performed By: #### 5 7021-8 #### MARTINEZ TALBERT L ([id number]) [facility] ([facility]) [address] [place] [address] 58315 Immature granulocytes (Bld) [#/Vol] 0.01 x10*3/uL Normal 0.00-0.70 [facility] Comment on above: Performed By: #### 5 7021-8 #### MARTINEZ TALBERT L ([id number]) [facility] ([facility]) [address] [place] [address] 50892 Immature granulocytes/100 WBC (Bld) 0.2 % Normal 0.0-0.9 [facility] Comment on above: Result Comment: Willa ture Granulocyte Count (IG) includes promyelocytes, myelocytes and metamyelocytes but does not include bands. Percent differential counts (%) should be interpreted in the context of the absolute cell counts (cells/UL). Performed By: #### 5 7021-8 #### MARTINEZ TALBERT L ([id number]) [facility] ([facility]) [address] [place] [address] 68175 Lymphocytes (Bld) [#/Vol] 0.37 x10*3/uL Low 1.20-4.80 [facility] Comment on above: Performed By: #### 5 7021-8 #### MARTINEZ CERDAMOALYSAER L ([id number]) [facility] ([facility]) [address] [place] [address] 86141 Lymphocytes/100 WBC (Bld) 7.9 % Normal 13.0-44.0 [facility] Comment on above: Performed By: #### 5 7021-8 #### MARTINEZ Al ([id number]) [facility] ([facility]) [address] [place] [address] 46949 MCH (RBC) [Entitic mass] 27.4 pg Normal 26.0-34.0 [facility] Comment on above: Performed By: #### 5 7021-8 #### MARTINEZ lA ([id number]) [facility] ([facility]) [address] [place] [address] 14808 MCHC (RBC) [Mass/Vol] 33.2 g/dL Normal 32.0-36.0 [facility] Comment on above: Performed By: #### 5 7021-8 #### MARTINEZ Al ([id number]) [facility] ([facility]) [address] [place] [address] 22952 MCV (RBC) [Entitic vol] 83 fL Normal 80-100 [facility] Comment on above: Performed By: #### 5 7021-8 #### MARTINEZ Al ([id number]) [facility] ([facility]) [address] [place] [address] 21459 Monocytes (Bld) [#/Vol] 0.09 x10*3/uL Low 0.10-1.00 [facility] Comment on above: Performed By: #### 5 7021-8 #### MARTINEZ Al ([id number]) [facility] ([facility]) [address] [place] [address] 15712 Monocytes/100 WBC (Bld) 1.9 % Normal 2.0-10.0 [facility] Comment on above: Performed By: #### 5 7021-8 #### MARTINEZ Al ([id number]) [facility] ([facility]) [address] [place] [address] 04609 Neutrophils (Bld) [#/Vol] 4.22 x10*3/uL Normal 1.20-7.70 [facility] Comment on above: Result Comment: Perc ent differential counts (%) should be interpreted in the context of the absolute cell counts (cells/uL). Performed By: #### 5 7021-8 #### MARTINEZ Al ([id number]) [facility] ([facility]) [address] [place] [address] Neutrophils/100 WBC (Bld) 89.6 % Normal 40.0-80.0 [facility] Comment on above: Performed By: #### 5 7021-8 #### MARTINEZ Al ([id number]) [facility] ([facility]) [address] [place] [address] 60914 Nucleated RBC/100 WBC (Bld) [Ratio] 0.0 /100 WBCs Normal 0.0-0.0 [facility] Comment on above: Performed By: #### 5 7021-8 #### MARTINEZ Al ([id number]) [facility] ([facility]) [address] [place] [address] 61351 Platelets (Bld) [#/Vol] 191 x10*3/uL Normal 150-450 [facility] Comment on above: Performed By: #### 5 7021-8 #### MARTINEZ Al ([id number]) [facility] ([facility]) [address] [place] [address] 49907 RBC (Bld) [#/Vol] 2.81 x10*6/uL Low 4.50-5.90 [facility] Comment on above: Performed By: #### 5 7021-8 #### MARTINEZ Al ([id number]) [facility] ([facility]) [address] [place] [address] 49805 WBC (Bld) [#/Vol] 4.7 x10*3/uL Normal 4.4-11.3 [facility] Comment on above: Performed By: #### 5 7021-8 #### MARTINEZ Al ([id number]) [facility] ([facility]) [address] [place] [address] 15425 Comprehensive metabolic 2000 panelon 12-08-2024 Albumin BCP dye [Mass/Vol] 4 g/dL 3.4 - 5.0 g/dL [facility] ALP [Catalytic activity/Vol] 62 U/L 33 - 120 U/L [facility] ALT With P-5'-P [Catalytic activity/Vol] 11 U/L 10 - 52 U/L [facility] Comment on above: Patients treated wit h Sulfasalazine may generate falsely decreased results for ALT. Anion gap [Moles/Vol] 19 mmol/L 10 - 2 0 mmol/L [facility] AST With P-5'-P [Catalytic activity/Vol] 12 U/L 9 - 39 U/L [facility] Bilirubin [Mass/Vol] 0.5 mg/dL 0.0 - 1 .2 mg/dL [facility] Calcium [Mass/Vol] 8.5 mg/dL Low 8.6 - 10. 6 mg/dL [facility] Chloride [Moles/Vol] 93 mmol/L Low 98 - 10 7 mmol/L [facility] CO2 [Moles/Vol] 27 mmol/L 21 - 32 mmol/L [facility] Creatinine [Mass/Vol] 13.53 mg/dL High 0.50 - 1.30 mg/dL [facility] GFR/1.73 sq M.predicted among non-blacks MDRD (S/P/Bld) [Vol rate/Area] 4 mL/min/{1.73_m2} Low - PINF [facility] Comment on above: Calculations of deanna mated GFR are performed using the 2020 CKD-EPI Study Refit equation without the race variable for the IDMS-Traceable creatinine methods. https://jasn.asnjournals.org/content/early/ASN.075132 0249 Glucose [Mass/Vol] 136 mg/dL High 74 - 99 mg/dL [facility] Interpretation and review of laboratory results Abnormal [facility] Potassium [Moles/Vol] 5.4 mmol/L High 3.5 - 5.3 mmol/L [facility] Protein [Mass/Vol] 7.4 g/dL 6.4 - 8.2 g/dL [facility] Sodium [Moles/Vol] 134 mmol/L Low 136 - 145 mmol/L [facility] Urea nitrogen [Mass/Vol] 55 mg/dL High 6 - 23 mg/dL [facility] Albumin BCP dye [Mass/Vol] 4.0 g/dL Normal 3.4-5.0 [facility] Comment on above: Performed By: #### 2 4323-8 #### MARTINEZ Al ([id number]) [facility] ([facility]) [address] [place] [address] 99879 ALP [Catalytic activity/Vol] 62 U/L Normal 33-120 [facility] Comment on above: Performed By: #### 2 4323-8 #### MARTINEZ Al ([id number]) [facility] ([facility]) [address] [place] [address] 83759 ALT With P-5'-P [Catalytic activity/Vol] 11 U/L Normal 10-52 [facility] Comment on above: Result Comment: Elana ents treated with Sulfasalazine may generate falsely decreased results for ALT. Performed By: #### 2 4323-8 #### MARTINEZ Al ([id number]) [facility] ([facility]) [address] [place] [address] 57423 Anion gap [Moles/Vol] 19 mmol/L Normal 10-20 [facility] Comment on above: Performed By: #### 2 4323-8 #### MARTINEZ Al ([id number]) [facility] ([facility]) [address] [place] [address] 60767 AST With P-5'-P [Catalytic activity/Vol] 12 U/L Normal 9-39 [facility] Comment on above: Performed By: #### 2 4323-8 #### MARTINEZ Al ([id number]) [facility] ([facility]) [address] [place] [address] 01433 Bilirubin [Mass/Vol] 0.5 mg/dL Normal 0.0-1.2 [facility] Comment on above: Performed By: #### 2 4323-8 #### MARTINEZ Al ([id number]) [facility] ([facility]) [address] [place] [address] Calcium [Mass/Vol] 8.5 mg/dL Low 8.6-10.6 [facility] Comment on above: Performed By: #### 2 4323-8 #### MARTINEZ Al ([id number]) [facility] ([facility]) [address] [place] [address] Chloride [Moles/Vol] 93 mmol/L Low 98-107 [facility] Comment on above: Performed By: #### 2 4323-8 #### MARTINEZ TALBERT L ([id number]) [facility] ([facility]) [address] [place] [address] CO2 [Moles/Vol] 27 mmol/L Normal 21-32 [facility] Comment on above: Performed By: #### 2 4323-8 #### MARTINEZ Al ([id number]) [facility] ([facility]) [address] [place] [address] Creatinine [Mass/Vol] 13.53 mg/dL High 0.50-1.30 [facility] Comment on above: Performed By: #### 2 4323-8 #### MARTINEZ TALBERT L ([id number]) [facility] ([facility]) [address] [place] [address] Glomerular filtration rate/1.73 sq M.predicted 4 mL/min/1.73m*2 Low >60 [facility] Comment on above: Result Comment: Calc ulations of estimated GFR are performed using the 2020 CKD-EPI Study Refit equation without the race variable for the IDMS-Traceable creatinine methods. https://jasn.asnjournals.org/content//ASN.241176 7532 Performed By: #### 2 4323-8 #### MARTINEZ Al ([id number]) [facility] ([facility]) [address] [place] [address] Glucose [Mass/Vol] 136 mg/dL High 74-99 [facility] Comment on above: Performed By: #### 2 4323-8 #### MARTINEZ SHEAER L ([id number]) [facility] ([facility]) [address] [place] [address] Potassium [Moles/Vol] 5.4 mmol/L High 3.5-5.3 [facility] Comment on above: Performed By: #### 2 4323-8 #### MARTINEZ TALBERT L ([id number]) [facility] ([facility]) [address] [place] [address] 29630 Protein [Mass/Vol] 7.4 g/dL Normal 6.4-8.2 [facility] Comment on above: Performed By: #### 2 4323-8 #### MARTINEZ TALBERT L ([id number]) [facility] ([facility]) [address] [place] [address] 15674 Sodium [Moles/Vol] 134 mmol/L Low 136-145 [facility] Comment on above: Performed By: #### 2 4323-8 #### MARTINEZ TALBERT L ([id number]) [facility] ([facility]) [address] [place] [address] 94940 Urea nitrogen [Mass/Vol] 55 mg/dL High 6-23 [facility] Comment on above: Performed By: #### 2 4323-8 #### MARTINEZ TALBERT L ([id number]) [facility] ([facility]) [address] [place] [address] 79245 ECG 12-LEADon 12-08-2024 ECG 12-LEAD Ventricular Rate 76 Atrial Rate 76 P-R Interval 158 QRS Duration 96 Q-T Interval 436 QTC Calculation(Bazett) 490 P Ogilvie 51 R Ogilvie -12 T Ogilvie 83 QRS Count 12 Q Onset 214 P Onset 135 P Offset 186 T Offset 432 QTC Fredericia 471 Diagnosis Normal sinus rhythm Minimal voltage criteria for LVH, may be normal variant ( [place] product ) QTcB >= 480 msec Abnormal ECG When compared with ECG of 20-OCT-2018 14:38, QRS axis Shifted left See ED provider note for full interpretation and clinical correlation Confirmed by Francie Chandler ([id number]) on 12/09/2024 12:14:04 AM Normal [facility] Gas panel (BldV)on Anion gap 4 (BldV) [Moles/Vol] 11 mmol/L 10.0 - 25.0 mmol/L [facility] Base excess Calc (BldV) [Moles/Vol] 3.4 mmol/L High -2.0 - 3.0 mmol/L [facility] Calcium.ionized (BldV) [Moles/Vol] 0.99 mmol/L Low 1.10 - 1.33 mmol/L [facility] Chloride (BldV) [Moles/Vol] 98 mmol/L 98 - 107 mmol/L [facility] CO2 (BldV) [Partial pressure] 45 mm[Hg] [facility] Glucose [Mass/Vol] 143 mg/dL High 74 - 99 mg/dL [facility] HCO3 (Bld) [Moles/Vol] 28.5 mmol/L High 22.0 - 26.0 mmol/L [facility] Hematocrit Est (Bld) [Volume fraction] 25 % Low 41.0 - 52.0 % [facility] Hemoglobin (Bld) [Mass/Vol] 8.2 g/dL Low 13.5 - 17.5 g/dL [facility] Inhaled oxygen concentration 21 % [facility] Interpretation and review of laboratory results Abnormal [facility] Lactate (BldV) [Moles/Vol] 0.7 mmol/L 0.4 - 2.0 mmol/L [facility] Oxygen (BldV) [Partial pressure] 32 mm[Hg] Low [facility] Oxygen saturation in Venous blood 44 % Low 45 - 75 % [facility] Oxyhemoglobin (BldV) [Mass fraction] 42.6 % Low 45.0 - 75.0 % [facility] pH (BldV) 7.41 [pH] 7.33 - 7.43 pH [facility] Potassium (BldV) [Moles/Vol] 5.9 mmol/L High 3.5 - 5.3 mmol/L [facility] Sodium (BldV) [Moles/Vol] 132 mmol/L Low 136 - 145 mmol/L [facility] Anion gap 4 (BldV) [Moles/Vol] 11.0 mmol/L Normal 10.0-25.0 [facility] Comment on above: Performed By: #### 2 4339-4 #### MARTINEZ Al ([id number]) [facility] ([facility]) [address] [place] [address] 62132 Base excess Calc (BldV) [Moles/Vol] 3.4 mmol/L High -2.0-3.0 [facility] Comment on above: Performed By: #### 2 4339-4 #### MARTINEZ Al ([id number]) [facility] ([facility]) [address] [place] [address] 13380 Calcium.ionized (BldV) [Moles/Vol] 0.99 mmol/L Low 1.10-1.33 [facility] Comment on above: Performed By: #### 2 4339-4 #### MARTINEZ Al ([id number]) [facility] ([facility]) [address] [place] [address] 00512 Chloride (BldV) [Moles/Vol] 98 mmol/L Normal 98-107 [facility] Comment on above: Performed By: #### 2 4339-4 #### MARTINEZ Al ([id number]) [facility] ([facility]) [address] [place] [address] 57498 CO2 (BldV) [Partial pressure] 45 mm Hg Normal 41-51 [facility] Comment on above: Performed By: #### 2 4339-4 #### MARTINEZ Al (64851) [facility] ([facility]) [address] [place] [address] 52186 Glucose [Mass/Vol] 143 mg/dL High 74-99 [facility] Comment on above: Performed By: #### 2 4339-4 #### MARTINEZ Al (55015) [facility] ([facility]) [address] [place] [address] 99264 HCO3 (Bld) [Moles/Vol] 28.5 mmol/L High 22.0-26.0 [facility] Comment on above: Performed By: #### 2 4339-4 #### MARTINEZ Al ([id number]) [facility] ([facility]) [address] [place] [address] 15180 Hematocrit Est (Bld) [Volume fraction] 25.0 % Low 41.0-52.0 [facility] Comment on above: Performed By: #### 2 4339-4 #### MARTINEZ Al (77876) [facility] ([facility]) [address] [place] [address] 81608 Hemoglobin (Bld) [Mass/Vol] 8.2 g/dL Low 13.5-17.5 [facility] Comment on above: Performed By: #### 2 4339-4 #### MARTINEZ Al (78391) [facility] ([facility]) [address] [place] [address] 47640 Inhaled oxygen concentration 21 % Normal [facility] Comment on above: Performed By: #### 2 4339-4 #### MARTINEZ Al ([id number]) [facility] ([facility]) [address] [place] [address] 35988 Lactate (BldV) [Moles/Vol] 0.7 mmol/L Normal 0.4-2.0 [facility] Comment on above: Performed By: #### 2 4339-4 #### MARTINEZ Al ([id number]) [facility] ([facility]) [address] [place] [address] 37700 Oxygen (BldV) [Partial pressure] 32 mm Hg Low 35-45 [facility] Comment on above: Performed By: #### 2 4339-4 #### MARTINEZ Al ([id number]) [facility] ([facility]) [address] [place] [address] 26604 Oxygen saturation in Venous blood 44 % Low 45-75 [facility] Comment on above: Performed By: #### 2 4339-4 #### MARTINEZ Al ([id number]) [facility] ([facility]) [address] [place] [address] 67902 Oxyhemoglobin (BldV) [Mass fraction] 42.6 % Low 45.0-75.0 [facility] Comment on above: Performed By: #### 2 4339-4 #### MARTINEZ Al ([id number]) [facility] ([facility]) [address] [place] [address] 89082 pH (BldV) 7.41 [pH] Normal 7.33-7.43 [facility] Comment on above: Performed By: #### 2 4339-4 #### MARTINEZ TALBERT L ([id number]) [facility] ([facility]) [address] [place] [address] 54753 Potassium (BldV) [Moles/Vol] 5.9 mmol/L High 3.5-5.3 [facility] Comment on above: Performed By: #### 2 4339-4 #### MARTINEZ SHEAER L ([id number]) [facility] ([facility]) [address] [place] [address] 89521 Sodium (BldV) [Moles/Vol] 132 mmol/L Low 136-145 [facility] Comment on above: Performed By: #### 2 4339-4 #### MARTINEZ COPETZER L ([id number]) [facility] ([facility]) [address] [place] [address] 31217 HBV surface Ab Qn (S)on 11-21 Interpretation and review of laboratory results Abnormal [facility] HBV surface Ag IA Qlon 12-08 Interpretation and review of laboratory results Normal [facility] Hepatitis B surface antibody on 12-08-2024 HBV surface Ab Qn (S) [facility] Comment on above: Interpretive Criteri a: <10 mIU/mL Nonreactive >=10 mIU/mL Reactive Biotin interference may cause falsely decreased results. Patients taking a Biotin dose of up to 5 mg/day should refrain from taking Biotin for 24 hours before sample collection. Providers may contact their local laboratory for further information. Hepatitis B surface antigeno n 12-08-2024 HBV surface Ag IA Ql Non-Reactive Nonreactive [facility] Comment on above: Biotin interference may cause falsely decreased results. Patients taking a Biotin dose of up to 5 mg/day should refrain from taking Biotin for 24 hours before sample collection. Providers may contact their local laboratory for further information. Hepatitis B virus surface Ab on 12-08-2024 HBV surface Ab Qn (S) >1000.0 High <10.0 [facility] Comment on above: Result Comment: Inte rpretive Criteria: <10 mIU/mL Nonreactive >=10 mIU/mL Reactive Biotin interference may cause falsely decreased results. Patients taking a Biotin dose of up to 5 mg/day should refrain from taking Biotin for 24 hours before sample collection. Providers may contact their local laboratory for further information. Performed By: #### 1 6935-9 #### MARTINEZ Al ([id number]) [facility] ([facility]) [address] [place] [address] Hepatitis B virus surface Ag on 12-08-2024 HBV surface Ag IA Ql Non-Reactive Normal Nonreactive [facility] Comment on above: Result Comment: Biot in interference may cause falsely decreased results. Patients taking a Biotin dose of up to 5 mg/day should refrain from taking Biotin for 24 hours before sample collection. Providers may contact their local laboratory for further information. Performed By: #### 5 196-1 #### MARTINEZ Al (84998) [facility] ([facility]) [address] [place] [address] 74853 Magnesiumon 12-08-2024 Magnesium [Mass/Vol] 2.34 mg/dL 1.60 - 2.40 mg/dL [facility] Magnesium [Mass/Vol] 2.34 mg/dL Normal 1.60-2.40 [facility] Comment on above: Performed By: #### 1 9123-9 #### MARTINEZ Al ([id number]) [facility] ([facility]) [address] [place] [address] 91528 Magnesium [Mass/Vol]on 12-08 Interpretation and review of laboratory results Normal [facility] No Panel Informationon 12-08 [facility] Abdomen/Pelvis W IV Cont ONL Yon 12-07-2024 Abdomen/Pelvis W IV Cont ONLY [facility] [address] [place] [address] Abdomen/Pelvis W IV Cont ONLY MR#: [id number] Acct: [id number] Name: CARLITOS SWEENEY Rep #: [id number] : 1975 M 49 From: Sarthak Carrillo MD PCP: Dr. Monie Alston, DO Status: REG ER Study: Abdomen/Pelvis W IV Cont ONLY Date of Exam: Exam# [id number] Ordering Dr: Blaise Marinelli MD PROCEDURE: ABDOMEN/PELVIS W IV CONT ONLY 12/07/2024 REASON FOR EXAM: RIGHT LOWER QUADRANT ABDOMINAL PAIN TECHNIQUE: ABDOMEN/PELVIS W IV CONT ONLY. Coronal and Sagittal reconstruction series were provided. ORAL CONTRAST TYPE: None. AMOUNT: mL CONTRAST: Isovue 370 VOLUME: 81 mL One or more dose reduction techniques were used (e.g., Automated exposure control, adjustment of the mA and/or kV according to patient size, use of iterative reconstruction technique. RADIATION DOSE SUMMARY: CTDlvol: 9.97+ 11.0 mGy DLP: 588.47 mGycm COMPARISON: None. FINDINGS: Right lower lobe scarring. Right pleural thickening and loculated pleural effusion with peripheral calcifications. Cardiomegaly. The peripheral soft tissues are unremarkable. Degenerative changes of the spine. Atherosclerosis. Normal caliber abdominal aorta. The liver is enlarged with normal attenuation. Surgically absent gallbladder. The pancreas, and adrenals are unremarkable. The right kidney is not visualized. Severe atrophy of the left kidney. The urinary bladder is decompressed. Loops of small bowel in the right lower quadrant measuring up to 3.0 cm. The appendix is not discretely visualized. Within the bilateral pelvis there is a right 2.0 x 3.9 cm and left 3.8 x 2.2 cm partially calcified lesions. CT/Abdomen/Pelvis W IV Cont ONLY IMPRESSION: Focally dilated loops of small bowel possibly representing developing/low-grade obstruction. Right lower lobe pleural thickening with a loculated effusion with peripheral calcifications and right lower lobe scarring. Consider prior asbestos exposure. Pelvic calcified lesions which may represent lymph nodes. Reading Location: [id number] CC: Dr. Monie Alston DO; Dr. Blaise Marinelli MD Fishing Rod Marker: Signed Normal [facility] Absolute lymphocyte countOrd ered By: Blaise Marinelli on 12-07-2024 Lymphocytes Auto (Unsp spec) [#/Vol] 1.05 10*3/uL 0.83-4.51 [facility] Absolute neutrophil countOrd ered By: Blaiseamaris Marinelli on 12-07-2024 Neutrophils (Bld) [#/Vol] 3.4 10*3/uL 2.0-7.7 [facility] Anion gap in Serum or Plasma Ordered By: Blaiseamaris Marinelli on 12-07-2024 Anion gap [Moles/Vol] 15 mmol/L 5-15 [facility] Automated lymphocyte count a s percentage of total leukocytesOrdered By: Blaiseamaris Marinelli on 12-07-2024 Lymphocytes/100 WBC Auto (Unsp spec) 20.3 % 19-41 [facility] BUN/creatinine ratioOrdered By: Blaiseamaris Marinelli on 12-07-2024 Urea nitrogen/Creatinine [Mass ratio] 4.0 mg/mg Low 10-20 [facility] Basic Metabolic Profile (BMP )on 12-07-2024 BUN/CRE 4.0 RATIO Low 10-20 [facility] Comment on above: Performed By: #### L 100.0100, L500.2500 #### [facility] [address] [place], [address] Calcium [Mass/Vol] 8.3 mg/dL Normal 7.6-11.0 [facility] Comment on above: Performed By: #### L 100.0100, L500.2500 #### [facility] [address] [place], [address] Chloride [Moles/Vol] 92 mmol/L Low 98-108 [facility] Comment on above: Performed By: #### L 100.0100, L500.2500 #### [facility] [address] [place], [address] CO2 [Moles/Vol] 28.7 mmol/L Normal 21.0-32.0 [facility] Comment on above: Performed By: #### L 100.0100, L500.2500 #### [facility] [address] [place], [address] Creatinine [Mass/Vol] 12.60 mg/dL Invalid Interpretation Code 0.70-1.20 [facility] Comment on above: Result Comment: Crit ical Result(s) Called at 2248: by: NBURNS TO MMARTIAN??Results read back by same. Performed By: #### L 100.0100, L500.2500 #### [facility] [address] [place], [address] ECRCL 7.39 ml/min Invalid Interpretation Code 50-250 [facility] Comment on above: Performed By: #### L 100.0100, L500.2500 #### [facility] [address] [place], [address] GAP 15 Normal 5-15 [facility] Comment on above: Performed By: #### L 100.0100, L500.2500 #### [facility] [address] [place], [address] GFR/1.73 sq M.predicted among non-blacks MDRD (S/P/Bld) [Vol rate/Area] 4 mL/min/{1.73_m2} Low >60 [facility] Comment on above: Result Comment: mL/m in/1.73m2 CKD-EPI Creatinine Equation (2020) Performed By: #### L 100.0100, L500.2500 #### [facility] [address] [place], [address] Glucose [Mass/Vol] 115 mg/dL High 70-99 [facility] Comment on above: Performed By: #### L 100.0100, L500.2500 #### [facility] [address] [place], [address] Potassium [Moles/Vol] 5.0 mmol/L Normal 3.3-5.1 [facility] Comment on above: Performed By: #### L 100.0100, L500.2500 #### [facility] [address] [place], [address] Sodium [Moles/Vol] 136 mmol/L Normal 133-145 [facility] Comment on above: Performed By: #### L 100.0100, L500.2500 #### [facility] [address] [place], [address] Urea nitrogen [Mass/Vol] 51 mg/dL High 4-19 [facility] Comment on above: Performed By: #### L 100.0100, L500.2500 #### [facility] [address] [place], [address] Basophil percentageOrdered B y: Blaise Marinelli on 12-07-2024 Basophils/100 WBC (Bld) 1.0 % 0-1 [facility] CBC W/Diff, Automatedon 11-21 Absolute Lymph 1.05 X10 3/uL Normal 0.83-4.51 [facility] Comment on above: Performed By: #### L 100.0100, L500.2500 #### [facility] [address] [place], [address] Absolute Neut 3.4 X10 3/uL Normal 2.0-7.7 [facility] Comment on above: Performed By: #### L 100.0100, L500.2500 #### [facility] [address] [place], [address] Basophils/100 WBC (Bld) 1.0 % Normal 0-1 [facility] Comment on above: Performed By: #### L 100.0100, L500.2500 #### [facility] [address] [place], [address] Eosinophils/100 WBC (Bld) 2.9 % Normal 0-5 [facility] Comment on above: Performed By: #### L 100.0100, L500.2500 #### [facility] [address] [place], [address] Erythrocyte distribution width (RBC) [Ratio] 13.3 % Normal 11.6-14.6 [facility] Comment on above: Performed By: #### L 100.0100, L500.2500 #### [facility] [address] [place], [address] Hematocrit (Bld) [Volume fraction] 22.4 % Low 40-54 [facility] Comment on above: Performed By: #### L 100.0100, L500.2500 #### [facility] [address] [place], [address] Hemoglobin (Bld) [Mass/Vol] 7.4 g/dL Low 13.0-16.5 [facility] Comment on above: Performed By: #### L 100.0100, L500.2500 #### [facility] [address] [place], [address] IG% 0.400 Normal 0.0-0.9 [facility] Comment on above: Result Comment: IG% - Immature Granulocytes (promyelocytes, myelocytes and metamyelocytes) > 1% indicates that a LEFT SHIFT is Present. Performed By: #### L 100.0100, L500.2500 #### [facility] [address] [place], [address] Lymphocytes/100 WBC (Bld) 20.3 % Normal 19-41 [facility] Comment on above: Performed By: #### L 100.0100, L500.2500 #### [facility] [address] [place], [address] MCH (RBC) [Entitic mass] 27.9 pg Normal 27.0-32.0 [facility] Comment on above: Performed By: #### L 100.0100, L500.2500 #### [facility] [address] [place], [address] MCHC (RBC) [Mass/Vol] 33.0 g/dL Normal 32-36 [facility] Comment on above: Performed By: #### L 100.0100, L500.2500 #### [facility] [address] [place], [address] MCV (RBC) [Entitic vol] 84.5 fL Normal 80-94 [facility] Comment on above: Performed By: #### L 100.0100, L500.2500 #### [facility] [address] [place], [address] Monocytes/100 WBC (Bld) 9.8 % Normal 0-10 [facility] Comment on above: Performed By: #### L 100.0100, L500.2500 #### [facility] [address] [place], [address] Neutrophils/100 WBC (Bld) 65.6 % Normal 47-70 [facility] Comment on above: Performed By: #### L 100.0100, L500.2500 #### [facility] [address] [place], [address] Nucleated RBC (Bld) [#/Vol] 0 10*3/uL Normal 0-5 [facility] Comment on above: Performed By: #### L 100.0100, L500.2500 #### [facility] [address] [place], [address] Platelet mean volume (Bld) [Entitic vol] 10.3 fL Normal 6.2-12.0 [facility] Comment on above: Performed By: #### L 100.0100, L500.2500 #### [facility] [address] [place], [address] Platelets (Bld) [#/Vol] 171 10*3/uL Normal 150-450 [facility] Comment on above: Performed By: #### L 100.0100, L500.2500 #### [facility] [address] [place], [address] RBC (Bld) [#/Vol] 2.65 10*6/uL Low 4.6-6.2 [facility] Comment on above: Performed By: #### L 100.0100, L500.2500 #### [facility] [address] [place], [address] RDW SD 40.7 fl Normal 35.1-43.9 [facility] Comment on above: Performed By: #### L 100.0100, L500.2500 #### [facility] [address] [place], [address] WBC (Bld) [#/Vol] 5.2 10*3/uL Normal 4.4-11.0 [facility] Comment on above: Performed By: #### L 100.0100, L500.2500 #### [facility] [address] [place], [address] Carbon dioxide, total [Moles /volume] in Central venous bloodOrdered By: Blaise Marinelli on 12-07-2024 CO2 [Moles/Vol] 28.7 mmol/L 21.0-32.0 [facility] Chloride assayOrdered By: Ug o Marinelli on 12-07-2024 Chloride [Moles/Vol] 92 mmol/L Low 98-108 [facility] Emergency Department Summary on 12-07-2024 Emergency Department Summary [facility] Medical Records Department [address] [place] [address] Emergency Department Summary 12/07/24 MR#: [id number] Acct: [id number] Name: CARLITOS SWEENEY Rep #: [id number] : 1975 49 From: Blaise Marinelli MD PCP: Dr. Monie Alston, DO Status:DEP ER Location: ED HPI History of Present Illness Chief Complaint: Abd Pain Detail of Chief Complaint: Right lower quadrant abdominal pain Informant: patient Onset/Context/Timing Onset: Days (Onset 3 to 4 days ago) Context: Gradual Onset Timing: Continuous Quality: Decreased appetite and pain Location: Right lower quadrant Current Severity: Mild Maximum Severity: Moderate Worsened by: Palpation Relieved by: Nothing Associated Symptoms Associated Symptoms: Decreased appetite Narrative Narrative: Patient is a 49-year-old male with end-stage renal disease who had a failed left cadaveric renal transplant and a failed right cadaveric renal transplant who presents with right lower quadrant Do nnell pain. He is presently on no immunosuppressive meds. He does he hemodialysis at home 5 days/week. He denies fever, chills night sweats. He does endorse nausea and decreased appetite. He makes no urine. There is no history of diverticulosis or diverticulitis. Prior similar symptoms: No Recent Illness/Hospitalization: No PFSH PFSH Medical History Inferior vena caval stenosis Steel syndrome Anemia of chronic disease Chest pain History of implantable cardiac defibrillator (ICD) (02/03/15) Chronic systolic (congestive) heart failure Tobacco abuse disorder Systolic murmur Non-ischemic cardiomyopathy GERD (gastroesophageal reflux disease) Anxiety and depression Essential hypertension Problem with dialysis access Non-compliance with renal dialysis Non compliance with medical treatment Non compliance w medication regimen Hyperkalemia COPD (chronic obstructive pulmonary disease) Hyperphosphatemia Anemia due to chronic renal failure treated with erythropoietin, stage 5 ESRD (end stage renal disease) on dialysis Renal transplant failure and rejection Home Medications ???Medication ???Instructions ???Recorded ???Last Taken ???Type acetaminophen 325 mg tablet 650 mg PO Q4H PRN Pain 07/07/19 Un known History sevelamer carbonate 800 mg tablet 800 mg PO TID 08/21/21 Unknown Hi story aspirin 81 mg tablet,delayed 81 mg PO DAILY 02/04/24 Unknown Hi story release (Adult Low Dose Aspirin) atorvastatin 40 mg tablet (Lipitor) 40 mg PO DAILY 02/04/24 Unknown History hydralazine 100 mg tablet 100 mg PO TID 04/07/24 Unknown His tory carvedilol 6.25 mg tablet 6.25 mg PO BID #180 tabs 09/08/24 Unknown Rx isosorbide mononitrate 60 mg 60 mg PO QAM #30 tabs 10/14/24 Unk nown Rx tablet,extended release 24 hr albuterol sulfate 90 mcg/actuation 2 puff inhalation Q4H PRN PRN Unknown History aerosol inhaler wheezing carvedilol 3.125 mg tablet 3.125 mg PO BID 12/08/24 Unknown H istory isosorbide mononitrate 30 mg 30 mg PO BID 12/08/24 Unknown Hist ory tablet,extended release 24 hr nicotine 21 mg/24 hr daily 1 patch topical DAILY 12/08/24 Unk nown History transdermal patch Allergy/AdvReac Type Severity Reaction Status Date / Time Iodinated Contrast Media Allergy Fever and Verified 09/07/24 14:59 (CONTRASTS) skin rash Penicillins Allergy Anaphylaxis Verified 09/07/24 14:59 cyclobenzaprine (From AdvReac dizzy, Verified 09/07/24 14:59 Flexeril) faints tramadol (From Ultram) AdvReac Rash Verified 09/07/24 14:59 Family History Father Diabetes Heart disease Hypertension Presence of implantable cardioverter-defibrillator (ICD) Brother Heart disease Hypertension Diabetes Presence of implantable cardioverter-defibrillator (ICD) LVAD (left ventricular assist device) present Surgical History Hx of cardiac catheterization ( 09/26/22) S/P internal cardiac defibrillator procedure Presence of surgically created primary arteriovenous shunt for hemodialysis Hx of cholecystectomy Hx of kidney transplant Hx of partial thyroidectomy (12/07/99) Social History Smoking Status: Light Smoker (<10/day) second hand exposure: Yes quit status: considering quitting alcohol intake: never substance use type: does not use caffeine: Yes Type: carbonated beverages Number of servings: 3 what type of physical activity do you participate in: walking frequency: daily seatbelt use: always ROS ROS ED Constitutional Constitutional ED: Denies chills, fever(s), subjective or sweats Cardiovascular Cardiovascular: Denies chest pain or palpitations Respirat (more content not included)... Normal [facility] Eosinophil percentageOrdered By: Blaise Marinelli on 12-07-2024 Eosinophils/100 WBC (Bld) 2.9 % 0-5 [facility] Erythrocyte distribution wid th ratioOrdered By: Blaiseamaris Marinelli on 12-07-2024 Erythrocyte distribution width (RBC) [Ratio] 13.3 % 11.6-14.6 [facility] Erythrocyte distribution wid th standard deviationOrdered By: Blaiseamaris Marinelli on 12-07-2024 Erythrocyte distribution width (RBC) [Ratio] 40.7 fl 35.1-43.9 [facility] Glomerular filtration rate ( GFR) estimation/1.73 sq m using serum, plasma, or whole bOrdered By: Blaiseamaris Marinelli on 12-07-2024 GFR/1.73 sq M.predicted among non-blacks MDRD (S/P/Bld) [Vol rate/Area] 4 mL/min/{1.73_m2} Low >60 [facility] Comment on above: mL/min/1.73m2 CKD-EP I Creatinine Equation (2020) Hematocrit Auto (Bld) [Volum e fraction]Ordered By: Blaiseamaris Marinelli on 12-07-2024 Hematocrit (Bld) [Volume fraction] 22.4 % Low 40-54 [facility] Hemoglobin measurementOrdere d By: Blaise Marinelli on 12-07-2024 Hemoglobin (Bld) [Mass/Vol] 7.4 g/dL Low 13.0-16.5 [facility] Immature granulocytes/100 WB C Auto (Bld)Ordered By: Blaise Marinelli 12-07-2024 Immature granulocytes/100 WBC (Bld) 0.400 % 0.0-0.9 [facility] Comment on above: IG% - Immature Granu locytes (promyelocytes, myelocytes and metamyelocytes) > 1% indicates that a LEFT SHIFT is Present. MCV (mean corpuscular volume ) determinationOrdered By: Blaise Marinelli on 12-07-2024 MCV (RBC) [Entitic vol] 84.5 fL 80-94 [facility] Mean corpuscular hemoglobin (MCH) determinationOrdered By: Blaiseamaris Marinelli 12-07-2024 MCH (RBC) [Entitic mass] 27.9 pg 27.0-32.0 [facility] Mean corpuscular hemoglobin concentration (MCHC) determinationOrdered By: Blaise Marinelli on 12-07-2024 MCHC (RBC) [Mass/Vol] 33.0 g/dL 32-36 [facility] Mean platelet volume determi nationOrdered By: Blaise Marinelli on 12-07-2024 Platelet mean volume (Bld) [Entitic vol] 10.3 fL 6.2-12.0 [facility] Monocyte percentageOrdered B y: Blaise Marinelli on 12-07-2024 Monocytes/100 WBC (Bld) 9.8 % 0-10 [facility] Neutrophil percentageOrdered By: Blaiseamaris Marinelli on 12-07-2024 Neutrophils/100 WBC (Bld) 65.6 % 47-70 [facility] Nucleated red blood cell per centageOrdered By: Blaise Marinelli on 12-07-2024 Nucleated RBC/100 WBC (Bld) [Ratio] 0 % 0-5 [facility] Platelet countOrdered By: López Marinelli on 12-07-2024 Platelets (Bld) [#/Vol] 171 10*3/uL 150-450 [facility] Potassium measurement (mass/ volume)Ordered By: Blaise Marinelli on 12-07-2024 Potassium (Unsp spec) [Mass/Vol] 5.0 mmol/L 3.3-5.1 [facility] RBC Auto (Bld) [#/Vol]Ordere d By: Blaise Marinelli on 12-07-2024 RBC (Bld) [#/Vol] 2.65 10*6/uL Low 4.6-6.2 [facility] Serum creatinine measurement (mass/volume)Ordered By: Blaise Marinelli on 12-07-2024 Creatinine [Mass/Vol] 12.60 mg/dL High 0.70-1.20 [facility] Comment on above: Critical Result(s) C alled at 4652: by: NBURNS TO MMARTIAN Results read back by same. Serum glucose measurement (m ass/volume)Ordered By: Blaise Marinelli on 12-07-2024 Glucose [Mass/Vol] 115 mg/dL High 70-99 [facility] Serum or plasma calcium kassandra urement (mass/volume)Ordered By: [facility] on 12-07-2024 Calcium [Mass/Vol] 8.3 mg/dL 7.6-11.0 [facility] Serum or plasma urea nitroge n measurement (mass/volume)Ordered By: [facility] on 12-07-2024 Urea nitrogen [Mass/Vol] 51 mg/dL High 4-19 [facility] Sodium levelOrdered By: [facility] on 12-07-2024 Sodium [Moles/Vol] 136 mmol/L 133-145 [facility] White blood cell (WBC) count Ordered By: [facility] on 12-07-2024 WBC (Bld) [#/Vol] 5.2 10*3/uL 4.4-11.0 [facility] XR ANKLE AND FOOT 6 VIEWS RI АЛЕКСАНДРTon 12-06-2024 XR ANKLE AND FOOT 6 VIEWS RIGHT ORIGINAL EXAMINATION: 6 XRAY VIEWS OF THE RIGHT FOOT and ankle12/06/2024 9:42 pm COMPARISON: 08/15/2022 HISTORY: ORDERING SYSTEM PROVIDED HISTORY: Reason for Exam: injury, FINDINGS: No acute fracture or dislocation is seen. Vascular calcifications. Os peroneum seen. IMPRESSION: No acute fracture or dislocation. I have personally reviewed the images of this examination and agree with the resident's findings and interpretation. Interpreted by: Lyle Mendenhall Preliminary Report By: Ranjith Donovan Electronically signed By Lyle Mendenhall Dictated Date: 12/06/2024 9:46:46 PM Prelim Date: 12/06/2024 9:52:03 PM Sign Date: 12/06/2024 10:00:33 PM Ordering Provider: ODILIA Street [facility] Aren 11-24-2024 CNOV Office Visit ([facility] ) -- CARLITOS SWEENEY ([id number]) 1975 M NFR Date Time Provider Department 11/24/24 12:00 PM COLUMBA KEITH [facility] During your visit today, we recorded the following information about you: Pulse Respiration Blood pressure Weight 97/minute 20/minute 142/82 76.3 kg Columba Keith APRN.MANUFACTURING COORDINATOR 11/24/2024 12:57 PM Signed [facility] Subjective Carlitos Sweeney is a 49 year old male. Patient presents with: Sinus Problem: Congestion, cough, left ear issues x 4 days Sinus Problem Associated symptoms include congestion and coughing. Pertinent negatives include no chest pain, chills, fatigue, fever, headaches, myalgias, rash or sore throat. Carlitos Sweeney is a 49 year old male who presents with congestion, cough, sinus congestion and drainage and left ear feeling clogged for the past 4 days. He is currently on dialysis due to ESRD. Denies fever, chills, body aches. Has taken OTC cold medication without improvement. Review of Systems Constitutional: Negative for chills, fatigue and fever. HENT: Positive for congestion, ear pain, hearing loss and sinus pressure. Negative for ear discharge, sinus pain and sore throat. Respiratory: Positive for cough. Negative for shortness of breath and wheezing. Cardiovascular: Negative for chest pain. Musculoskeletal: Negative for myalgias. Skin: Negative for rash. Neurological: Negative for headaches. Objective BP 142/82 Pulse 97 Resp 20 Wt 76.3 kg (168 lb 3.4 oz) SpO2 98% BMI 23.46 kg/m? PAST MEDICAL HISTORY Diagnosis Date - Abdominal pain 10/01/2013 - Anemia associated with stage 5 chronic renal failure (HCC) ([facility]) 07/01/2022 - Anxiety 10/01/2013 - Arteriovenous fistula, acquired ([facility]) 11/21/2022 - BENIGN HYP RENAL W KID FAIL 02/11/2005 - Cardiomyopathy ([facility]) 07/01/2022 Echo 12/2014 EF 20%. - Chronic combined systolic and diastolic CHF (congestive heart failure) ([facility]) 08/18/2015 Seeing cardio in [place] (has pace maker/defibulator) - Chronic kidney disease, stage 5 ([facility]) Dialysis M,W,F @ [facility] - Chronic obstructive pulmonary disease ([facility]) 08/18/2015 - Chronic obstructive pulmonary disease ([facility]) 08/18/[address] 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 - Elevated hemoglobin A1c 10/13/2020 - End stage renal failure on dialysis (HCC) 02/12/2017 - Essential hypertension 09/10/2013 - Gastroesophageal reflux disease without esophagitis 10/23/2016 - H/O: endocrine disorder 07/01/2022 Comment on above: HYPERPARATHYROIDISM - DR HERNANDEZ NOTES - Hemodialysis patient ([facility]) 03/28/2016 - History of cardiac pacemaker in situ 08/31/2015 - History of implantable cardiac defibrillator (ICD) 02/03/2015 - Hyperkalemia 02/12/2017 - Hyperphosphatemia 02/12/2017 - Hypertensive heart disease with congestive heart failure (HCC) 02/12/2017 - Hypocalcemia 02/12/2017 - Implantable cardioverter-defibrillator (ICD) in situ 02/12/2017 - Kidney replaced by transplant 05/27/1997 - Kidney transplant failure and rejection 05/12/2013 - Kidney transplant rejection 05/12/2013 - Left ventricular systolic dysfunction 08/31/2015 - Malrotation of colon 07/01/[address]d 07/02/2015 Comment on above: noted on ct abd 07/02/2015 - Migraine headache 07/01/2022 - Mild episode of recurrent major depressive disorder (HCC) 09/04/2021 - Moderate episode of recurrent major depressive disorder (HCC) 10/23/2016 - MRSA colonization, nasal 02/28/2014 - Nonrheumatic aortic valve stenosis 11/21/2022 Seeing cardio - Presence of combination internal cardiac defibrillator (ICD) and pacemaker - Psychophysiological insomnia 11/14/2020 Patient needs substance agreement and Tox screening done at appt on 01/10/2021. If cancels or No Shows the Belsomra will be stopped. - Recurrent right pleural effusion 02/12/2022 - Smoker 08/18/2015 Started at age 14 up to 1-1.5 PPD, currently at 1/2 PPD (10/2016), as of 05/2019 less than 1/2 a PPD - Uremic encephalopathy 07/01/2022 PAST SURGICAL HISTORY Procedure Laterality Date - 2D ECHO (EXEP) 11/02/2020 EF=50%, mod Joshi dysf - CHOLECYSTECTOMY - INSJ TUNNELED CVC W/O SUBQ PORT/MANAGER TRAINING AND DEVELOPMENT AGE 3 YR/> 01/21/2014 - PAST SURGICAL HISTORY OF 05/1997 Renal Transplant, cadaveric - PAST SURGICAL HISTORY OF 09/2011 renal transplant - PAST SURGICAL HISTORY OF Right cautery right nare for chronic nosebleeds - PAST SURGICAL HISTORY OF 01/31/2017 LEFT UPPER ARM AVG ALLERGIES Iodinated Contrast Media, Cyclobenzaprine, Dye, Penicillins, Procardia [Nifedipine], and Tramadol MEDICATIONS - albuterol HFA (PROVENTIL HFA, VENTOLIN HFA) 90 mcg/actuation inhaler Inhale 2 Puffs as instructed every 4 hours as needed for wheezing/shortness of breath. - hydrALAZINE (APRESOLINE) 50 mg tablet Take 100 mg by mouth three times a day. - atorvastatin (LIPITOR) 40 mg (more content not included)... Normal [facility] CNOVon 10-18-2024 CNOV Office Visit ([facility] ) -- CARLITOS SWEENEY ([id number]) 1975 M NFR Date Time Provider Department 10/18/24 10:30 AM CHAYA BRIDGES [facility] During your visit today, we recorded the following information about you: Temperature Pulse Respiration Blood pressure 96.9 degrees 86/minute 16/minute 172/80 Weight 78.7 kg Chaya Bridges MD 10/18/2024 11:22 AM Signed [facility] Subjective Carlitos Murphy Zahra is a 49 year old male. Patient presents with: Nose Bleed: left side x this am Patient presents with concern for nosebleed that began at 3 AM. He did have blood run down the back of his throat and he coughed out a blood clot. Bleeding stopped but had resumed once more today. He feels as though it is going to start bleeding again soon. He denies any injury. He has some frontal sinus pressure but no significant headache. He took his blood pressure medication 1 hour before arrival. His blood pressure has been running 150s to 170s over 80s to 90s at dialysis. He denies any abnormal bruising or blood in his stool. He makes no urine and is edentulous. He has had epistaxis requiring cautery and packing in the past. Review of Systems Objective BP 182/100 Pulse 86 Temp 36.1 ?C (96.9 ?F) Resp 16 Wt 78.7 kg (173 lb 8 oz) SpO2 98% BMI 24.20 kg/m? Last 4 Encounter BP Readings: Date: BP: 10/18/2024 172/80 05/30/2024 109/69 04/13/2024 159/77 04/01/2024 140/80 Physical Exam Constitutional: General: He is not in acute distress. Appearance: He is not ill-appearing. HENT: Right Ear: There is impacted cerumen. Left Ear: Tympanic membrane and ear canal normal. Ears: Comments: Rounded whitish mass (reports mass has been present for years) in the distal right canal anterior superior aspect occluding one third of the canal with the remainder of the canal occluded with cerumen at that level Nose: Comments: Small eschar very superior vestibule of the cartilaginous nose left nostril. Eschar and suspected ulceration left nostril septum without active bleeding Eyes: Extraocular Movements: Extraocular movements intact. Conjunctiva/sclera: Conjunctivae normal. Pupils: Pupils are equal, round, and reactive to light. Cardiovascular: Rate and Rhythm: Normal rate and regular rhythm. Heart sounds: No murmur heard. Pulmonary: Effort: No respiratory distress. Breath sounds: No wheezing, rhonchi or rales. Musculoskeletal: Cervical back: Neck supple. Lymphadenopathy: Cervical: No cervical adenopathy. Neurological: Mental Status: He is alert. {ASSESSMENT/PLAN: 1. Left-sided epistaxis - ICD9: 784.7, ICD10: R04.0 (primary diagnosis) Appears to have distal source of epistaxis. I advised pinching the nose for 10 minutes if bleeding recurs. Follow-up with ENT or with the emergency room if unable to stop bleeding for packing or cauterization. 2. Essential hypertension - ICD9: 401.9, ICD10: I10 Repeat BP 172/80. 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 Chaya Bridges MD Differential Diagnoses - distal nasal epistaxis from mechanical abrasion is more likely for the following reason(s): suggested by HANDP Procedures Allergies As of Date: 10/18/2024 Noted Allergy Reaction IODINATED CONTRAST MEDIA 07/13/2019 2 - Rash CYCLOBENZAPRINE 02/05/2017 16 - Unknown DYE 07/04/2015 14 - Other: See Comments Comments: IV contrast makes pt run a high temperature PENICILLINS 05/16/2003 2 - Rash PROCARDIA (NIFEDIPINE) 05/28/2016 7 - Swelling TRAMADOL 02/05/2017 16 - Unknown Date Reviewed: 10/18/2024 Reviewed by: Autumn Taylor MA - Fully Assessed Reason for Visit: Nose Bleed [204] Cmt: left side x this am Primary Visit Diagnosis:Left-sided epistaxis [R04.0] Other Visit Diagnosis:Essential hypertension [I10] Prescriptions as of 10/18/2024 - albuterol HFA (PROVENTIL HFA, VENTOLIN HFA) 90 mcg/actuation inhaler Inhale 2 Puffs as instructed every 4 hours as needed for wheezing/shortness of breath. - hydrALAZINE (APRESOLINE) 50 mg tablet Take 100 mg by mouth three times a day. - atorvastatin (LIPITOR) 40 mg tablet Take 1 tablet by mouth daily at bedtime. - aspirin 81 mg chewable tablet 1 tablet by ORAL/FEEDING TUBE route once daily. - carvedilol (COREG) 3.125 mg tablet Take 1 tablet by mouth twice daily with meals. Per [facility] - sevelamer carbonate (RENVELA) 800 mg tablet Take 1 tablet by mouth three times daily. - acetaminophen (TYLENOL) 325 mg tablet Take 2 tablets every 4 hours as needed for pain. Problem List As Of Date 10/18/2024 Noted Resolved Kidney replaced by transplant [Z94.0] 02/11/2005 Benign hypertensive kidney disease with chronic*02/11/2005 CKD (chronic kidney disease) stage 5, GFR less *04/26/2013 Kidney transplant failure and rejection [T86.12*05/12/2013 Essential hypertension [I10] 09/10/2013 Anxiety [ (more content not included)... Normal [facility] Echocardiogram study reportO rdered By: Tevin Khan on 10-11-2024 Study report [facility] [address] [place] [address] Echo Complete 10/07/24 1354 MR#: [id number] Acct: [id number] Name: CARLITOS SWEENEY Rep #:[id number] : 1975 49 From: Tevin Khan MD Attending Dr: Dr. Tevin Khan MD Status: REG CLI Ordering Dr: Tevin Khan MD Date: Location: [facility] Sex: M C Admitted: Reason For Study Reason For Study: OTHER Procedure This was a 2D Doppler, Color Flow transthoracic echocardiogram. Exam performed in department. Left Ventricle Normal LV size. Mild concentric left ventricular hypertrophy. The left ventricular ejection fraction is 50 %. Stage I diastolic dysfunction with elevated left atrial filling pressures. Right Ventricle Normal right ventricle. ICD or pacer leads identified within the right ventricle. Atria The left atrium is mildly enlarged. Normal right atrium. ICD or pacer leads identified within the right atrium. Mitral Valve Mild diffuse mitral valve thickening. Moderate (2+) mitral valve insufficiency. Tricuspid Valve Mild tricuspid valve insufficiency. Normal pulmonary artery pressure. Aortic Valve Trisinus/trileaflet aortic valve. Mild diffuse aortic valve thickening. Pulmonic Valve The pulmonic valve is not well visualized. Great Vessels Normal sized aortic root. Pericardium/Pleural No pericardial effusion. MMode/2D Measurements & Calculations LVIDd: 4.8 cm IVSd: 1.4 cm LVOT diam: 2.1 cm LVIDs: 3.7 cm LVPWd: 1.5 cm LVOT area: 3.4 cm2 RVDd: 3.2 cm FS: 22.6 % Ao root diam: 3.0 cm LAV(MOD-bp): 54.4 ml LVAd ap4: 37.8 cm2 LAV(MOD-bp) Indexed: 27.6 ml/m2 LVLd ap4: 9.9 cm LAV(MOD-sp2): 58.4 ml EDV(MOD-sp4): 125.9 ml LAV(MOD-sp4): 49.8 ml EDV(sp4-el): 124.9 ml LVAs ap4: 27.1 cm2 LVLs ap4: 8.7 cm ESV(MOD-sp4): 73.9 ml ESV(sp4-el): 71.6 ml EF(MOD-sp4): 41.3 % EF(sp4-el): 42.7 % SV(MOD-sp4): 52.0 ml SV(sp4-el): 53.3 ml LA A4 area: 17.8 cm2 SI(MOD-sp4): 26.4 ml/m2 __ LA dimension(2D): 4.3 cm RA A4 area: 16.7 cm2 Time Measurements MV dec time: 0.14 sec Doppler Measurements & Calculations MV E max vianey: 112.5 cm/sec Lat Peak E' Vianey: 10.8 cm/sec Med Peak E' Vianey: 5.7 cm/sec MV A max vianey: 125.8 cm/sec E/E' lat: 10.4 E/E' med: 19.6 MV E/A: 0.89 __ MV V2 max: 121.1 cm/sec Ao V2 max: 231.4 cm/sec MV max P.9 mmHg MV dec slope: 815.1 cm/sec2 Ao max P.4 mmHg MV V2 mean: 98.7 cm/sec Ao V2 mean: 164.9 cm/sec MV mean P.1 mmHg Ao mean P.4 mmHg MV V2 VTI: 39.1 cm Ao V2 VTI: 50.2 cm AV (velocity ratio): 0.78 MVA(VTI): 3.4 cm2 YARI(I,D): 2.6 cm2 YARI(V,D): 2.6 cm2 __ LV V1 max: 178.4 cm/sec SV(LVOT): 132.2 ml PA V2 max: 114.3 cm/sec LV V1 max P.7 mmHg PA V2 mean: 82.9 cm/sec LV V1 mean P.0 mmHg LV V1 mean: 69.1 cm/sec LV V1 VTI: 39.2 cm ECHO/Echo Complete Interpretation Summary Mild concentric left ventricular hypertrophy. The left ventricular ejection fraction is 50 %. Stage I diastolic dysfunction with elevated left atrial filling pressures. The left atrium is mildly enlarged. Moderate (2+) mitral valve insufficiency. Mild tricuspid valve insufficiency. Mild diffuse aortic valve thickening. Ordering Physician: Tevin Khan Referring Physician: Tevin Khan Performed By: Anushka Acuña RCS 10/11/24 0835 Date _ Tevin Khan MD CC: Dr. Tevin Khan MD; Dr. 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 Tevin Khan MD Status: REG CLI Ordering Dr: Tevin Khan MD Date: 10/07/24 Location: [facility] Sex: M C Admitted: Reason For Study Reason For Study: OTHER Procedure This was a 2D Doppler, Color Flow transthoracic echocardiogram. Exam performed in department. Left Ventricle Normal LV size. Mild concentric left ventricular hypertrophy. The left ventricular ejection fraction is 50 %. Stage I diastolic dysfunction with elevated left atrial filling pressures. Right Ventricle Normal right ventricle. ICD or pacer leads identified within the right ventricle. Atria The left atrium is mildly enlarged. Normal right atrium. ICD or pacer leads identified within the right atrium. Mitral Valve Mild diffuse mitral valve thickening. Moderate (2+) mitral valve insufficiency. Tricuspid Valve Mild tricuspid valve insufficiency. Normal pulmonary artery pressure. Aortic Valve Trisinus/trileaflet aortic valve. Mild diffuse aortic valve thickening. Pulmonic Valve The pulmonic valve is not well visualized. Great Vessels Normal sized aortic root. Pericardium/Pleural No pericardial effusion. MMode/2D Measurements Calculations LVIDd: 4.8 cm IVSd: 1.4 cm LVOT diam: 2.1 cm LVIDs: 3.7 cm LVPWd: 1.5 cm LVOT area: 3.4 cm2 RVDd: 3.2 cm FS: 22.6 % Ao root diam: 3.0 cm LAV(MOD-bp): 54.4 ml LVAd ap4: 37.8 cm2 LAV(MOD-bp) Indexed: 27.6 ml/m2 LVLd ap4: 9.9 cm LAV(MOD-sp2): 58.4 ml EDV(MOD-sp4): 125.9 ml LAV(MOD-sp4): 49.8 ml EDV(sp4-el): 124.9 ml LVAs ap4: 27.1 cm2 LVLs ap4: 8.7 cm ESV(MOD-sp4): 73.9 ml ESV(sp4-el): 71.6 ml EF(MOD-sp4): 41.3 % EF(sp4-el): 42.7 % SV(MOD-sp4): 52.0 ml SV(sp4-el): 53.3 ml LA A4 area: 17.8 cm2 SI(MOD-sp4): 26.4 ml/m2 LA dimension(2D): 4.3 cm RA A4 area: 16.7 cm2 Time Measurements MV dec time: 0.14 sec Doppler Measurements Calculations MV E max vianey: 112.5 cm/sec Lat Peak E' Vianey: 10.8 cm/sec Med Peak E' Vianey: 5.7 cm/sec MV A max vianey: 125.8 cm/sec E/E' lat: 10.4 E/E' med: 19.6 MV E/A: 0.89 MV V2 max: 121.1 cm/sec Ao V2 max: 231.4 cm/sec MV max P.9 mmHg MV dec slope: 815.1 cm/sec2 Ao max P.4 mmHg MV V2 mean: 98.7 cm/sec Ao V2 mean: 164.9 cm/sec MV mean P.1 mmHg Ao mean P.4 mmHg MV V2 VTI: 39.1 cm Ao V2 VTI: 50.2 cm AV (velocity ratio): 0.78 MVA(VTI): 3.4 cm2 YARI(I,D): 2.6 cm2 YARI(V,D): 2.6 cm2 LV V1 max: 178.4 cm/sec SV(LVOT): 132.2 ml PA V2 max: 114.3 cm/sec LV V1 max P.7 mmHg PA V2 mean: 82.9 cm/sec LV V1 mean P.0 mmHg LV V1 mean: 69.1 cm/sec LV V1 VTI: 39.2 cm ECHO/Echo Complete Interpretation Summary Mild concentric left ventricular hypertrophy. The left ventricular ejection fraction is 50 %. Stage I diastolic dysfunction with elevated left atrial filling pressures. The left atrium is mildly enlarged. Moderate (2+) mitral valve insufficiency. Mild tricuspid valve insufficiency. Mild diffuse aortic valve thickening. Ordering Physician: Tevin Khan Referring Physician: Tevin Khan Performed By: Anushka Acuña RCS 10/11/24 0835 Date Tevin Khan MD CC: Dr. Tevin Khan MD; Dr. 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 Multiplanar reformatted images are provided for review. Automated exposure control, iterative reconstruction, and/or weight based adjustment of the mA/kV was utilized to reduce the radiation dose to as low as reasonably achievable. COMPARISON: CT thorax 11/28/2022 HISTORY: ORDERING SYSTEM PROVIDED HISTORY: Reason for Exam: current tobacco use, age [age] pt reports 40 pack year hx. Current smoker. Hx COPD. FINDINGS: The heart is enlarged but stable in size. Left subclavian AICD is noted with leads in unchanged position. No significant change in a suspected calcified fibrin sheath within the superior vena cava. Mild aortic atherosclerotic calcifications. Severe multivessel coronary artery calcifications and/or stents. The great vessels appear normal in caliber. There is redemonstration of multiple collateral vessels within the chest wall. No lymphadenopathy is visible on this unenhanced exam. Gallbladder is surgically absent. Redemonstration of severe left renal atrophy. There are a couple small left renal cyst. No suspicious findings seen in the visualized portion of the abdomen. The abdomen is not evaluated in detail. Trachea and mainstem bronchi are patent. The previously seen small loculated right pleural effusion has completely resolved. There is mild residual right pleural thickening and subpleural scarring throughout the right lung. No focal consolidation, large pleural effusion or pneumothorax. There is a left upper lobe calcified granuloma. Couple additional punctate right lung calcified granulomas. Stable 2 mm right apical pulmonary nodule (series 4, image 30). Stable 3 mm right upper lobe pulmonary nodule (series 4, image 61). 3 mm left upper lobe pulmonary nodule (series 4, image 34). No new or enlarging pulmonary nodules. There are mild pleural calcifications within the right lung base. No aggressive osseous lesions visible. Degenerative changes seen in the spine. IMPRESSION: Stable small lung nodules. For patients with appropriate lung cancer risk, annual CT screening is recommended. Severe coronary artery calcifications and/or stents. No significant change in suspected calcified fibrin sheath within the superior vena cava. Resolution of previously seen loculated right pleural effusion with mild right pleural thickening and subpleural scarring. Information below is for Lung nodule tracking purposes: Nodule: S3 BLN Other Findings: P-CAC Change: No Change Recall : 1yr scr Recall Type: LDCT LungRads: 2s Interpreted by: Bernabe Chávez Preliminary Report By: Bernabe Chávez Electronically signed By Bernabe Chávez Dictated Date: 09/15/2024 9:52:08 AM Prelim Date: 09/15/2024 10:06:05 AM Sign Date: 09/15/2024 10:06:05 AM Ordering Provider: MONIE ALSTON [facility] Cardiology Visit Reporton Cardiology Visit Report [facility] [address] [place], [place] [address] OFFICE VISIT Date of Service: 09/07/24 MR#: [id number] Acct: [id number] Name: CARLITOS SWEENEY Rep #: [id number] : 1975 Provider: Dr. Tevin Khan MD Age/Sex: 48/M Location: [facility] Status: Signed HPI HPI History of Present Illness Details: This gentleman with history of nonischemic cardiomyopathy, hypertension and end-stage renal disease is here for follow-up visit. He has an ICD implanted. Denies any complaints today. No chest pains. No shortness of breath. No palpitations. Denies orthopnea or PND. No ankle edema. Intake Vital Signs 03/16/24 15:21 09/07/24 08:17 Height 5 ft 11 in 5 ft 11 in Weight: 164 lb 7.437 oz BMI 22.9 BP 142/88 H Blood Pressure Location Lt brachial Position Sitting Respiration 18 Pulse 86 Pulse Source NIBP Intake Visit Reasons: 6 M FU Artificial Flowers [place] Required: No Accompanied by: Is patient in pain?: No Allergies Iodinated Contrast Media (CONTRASTS) Allergy (Verified 09/07/24 14:59) Fever and skin rash Penicillins Allergy (Verified 09/07/24 14:59) Anaphylaxis cyclobenzaprine (From Flexeril) Adverse Reaction (Verified 09/07/24 14:59) dizzy, faints tramadol (From Ultram) Adverse Reaction (Verified 09/07/24 14:59) Rash Medications ???Medication ???Instructions ???Recorded ???Confirmed ???Type acetaminophen 325 mg tablet 650 mg PO Q4H PRN Pain 07/07/19 History sevelamer carbonate 800 mg tablet 800 mg PO TID 08/21/21 09/07/24 H istory aspirin 81 mg tablet,delayed 81 mg PO DAILY 02/04/24 09/07/24 H istory release (Adult Low Dose Aspirin) atorvastatin 40 mg tablet (Lipitor) 40 mg PO DAILY 02/04/24 5 History carvedilol 3.125 mg tablet (Coreg) 3.125 mg PO BID 02/04/24 5 History isosorbide mononitrate 30 mg 30 mg PO DAILY #30 tabs 02/04/24 0 09/07/24 Rx tablet,extended release 24 hr hydralazine 100 mg tablet 100 mg PO TID 04/07/24 09/07/24 Hi story Ejection fraction %: 30 Have you fallen in the past year?: No PFSH Medical History Anemia due to chronic renal failure treated with erythropoietin, stage 5 Anemia of chronic disease Anxiety and depression Chest pain Chronic systolic (congestive) heart failure COPD (chronic obstructive pulmonary disease) ESRD (end stage renal disease) on dialysis Essential hypertension GERD (gastroesophageal reflux disease) History of implantable cardiac defibrillator (ICD) (02/03/15) Hyperkalemia Hyperphosphatemia Inferior vena caval stenosis Non compliance w medication regimen Non compliance with medical treatment Non-compliance with renal dialysis Non-ischemic cardiomyopathy Problem with dialysis access 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 Systolic murmur Tobacco abuse disorder Surgical History Hx of cardiac catheterization ( 09/26/22) Hx of cholecystectomy Hx of kidney transplant Hx of partial thyroidectomy (12/07/99) Presence of surgically created primary arteriovenous shunt for hemodialysis S/P internal cardiac defibrillator procedure Family History Father Diabetes Heart disease Hypertension Presence of implantable cardioverter-defibrillator (ICD) Brother Heart disease Hypertension Diabetes Presence of implantable cardioverter-defibrillator (ICD) LVAD (left ventricular assist device) present Social History Smoking Status: Light Smoker (<10/day) second hand exposure: Yes quit status: considering quitting alcohol intake: never substance use type: does not use caffeine: Yes Type: carbonated beverages Number of servings: 3 what type of physical activity do you participate in: walking frequency: daily seatbelt use: always ROS Const Const: Positive for headache(s) (chronic); Negative for fatigue, weakness or weight gain ENT ENT: Positive for headache(s) (chronic); Negative for dizziness, Nosebleed/epistaxis or balance problems Cardio Chest Pain: No Palpitations: No Edema: None Muscle aches with walking: None Resp Respiratory: Negative for SOB with activity, SOB at rest or SOB orthopnea SOB lying down GI GI: Negative nausea, vomiting or heartburn Musc Musc: Positive for joint pain (low back pain); Negative for muscle aches/ myalgia, muscle weakness or balance problems Neuro Neuro: Positive for headache(s) (chronic); Negative for dizziness, lightheadedness, near syncope, syncope or weakness Endo Endo: Negative for fatigue Cardiology Exam Const Appearance: comfortable and no acute distress Nutritional Appearance: w (more content not included)... Normal [facility] CNPNon 09-01-2024 CNPN Telephone (VASSMN) -- CARLITOS SWEENEY ([id number]) 1975 M NFR Date Time Provider Department 09/01/24 BRITTON MORIN During your visit today, we recorded the following information about you: Yessy Bridges 09/01/2024 2:58 PM Signed Left voicemail for patient to call office to update/verify correct mailing address. Allergies As of Date: 09/01/2024 Noted Allergy Reaction IODINATED CONTRAST MEDIA 07/13/2019 2 - Rash CYCLOBENZAPRINE 02/05/2017 16 - Unknown DYE 07/04/2015 14 - Other: See Comments Comments: IV contrast makes pt run a high temperature PENICILLINS 05/16/2003 2 - Rash PROCARDIA (NIFEDIPINE) 05/28/2016 7 - Swelling TRAMADOL 02/05/2017 16 - Unknown Date Reviewed: 05/30/2024 Reviewed by: Enriqueta Mcleod MA - Fully Assessed Prescriptions as of 09/01/2024 - predniSONE (DELTASONE) 10 mg tablet Take 4 tabs daily for 3 days, then 2 tabs daily for 3 days, then 1 tab daily for 3 days with food. - albuterol HFA (PROVENTIL HFA, VENTOLIN HFA) 90 mcg/actuation inhaler Inhale 2 Puffs as instructed every 4 hours as needed for wheezing/shortness of breath. - predniSONE (DELTASONE) 10 mg tablet Take 4 tabs daily for 3 days, then 2 tabs daily for 3 days, then 1 tab daily for 3 days with food. - hydrALAZINE (APRESOLINE) 50 mg tablet Take 100 mg by mouth three times a day. - atorvastatin (LIPITOR) 40 mg tablet Take 1 tablet by mouth daily at bedtime. - aspirin 81 mg chewable tablet 1 tablet by ORAL/FEEDING TUBE route once daily. - carvedilol (COREG) 3.125 mg tablet Take 1 tablet by mouth twice daily with meals. Per [facility] - sevelamer carbonate (RENVELA) 800 mg tablet Take 1 tablet by mouth three times daily. - acetaminophen (TYLENOL) 325 mg tablet Take 2 tablets every 4 hours as needed for pain. Problem List As Of Date 09/01/2024 Noted Resolved Kidney replaced by transplant [Z94.0] 02/11/2005 Benign hypertensive kidney disease with chronic*02/11/2005 CKD (chronic kidney disease) stage 5, GFR less *04/26/2013 Kidney transplant failure and rejection [T86.12*05/12/2013 Essential hypertension [I10] 09/10/2013 Anxiety [F41.9] 10/01/2013 Abdominal pain [R10.9] 10/01/2013 MRSA colonization, nasal [Z22.322] 02/28/2014 Smoker [F17.200] 08/18/2015 Chronic obstructive pulmonary disease (HCC) [J4*08/18/2015 Chronic combined systolic and diastolic CHF (co*08/18/2015 Hemodialysis patient ([facility]) [Z99.2] 03/28/2016 Gastroesophageal reflux disease without esophag*10/23/2016 Noncompliance with renal dialysis (HCC) [Z91.15*10/23/2016 Noncompliance with treatment [Z91.199] 10/23/2016 Implantable cardioverter-defibrillator (ICD) in*02/12/2017 ESRD (end stage renal disease) ([facility]) [N18.6] 02/12/2017 Hypertensive heart disease with congestive hear*02/12/2017 Elevated hemoglobin A1c [R73.09] 10/13/2020 Psychophysiological insomnia [F51.04] 11/14/2020 Mild episode of recurrent major depressive diso*09/04/2021 Recurrent right pleural effusion [J90] 02/12/2022 11/21/2022 Acute respiratory failure with hypoxemia (HCC) *07/01/2022 11/21/2022 Anemia associated with stage 5 chronic renal fa*07/01/2022 Cardiomyopathy (HCC) [I42.9] 07/01/2022 Complication of catheter [T85.9XXA] 07/01/2022 Encounter for screening for cardiovascular diso*07/01/2022 History of implantable cardiac defibrillator (I*02/03/2015 History of cardiac pacemaker in situ [Z95.0] 08/31/2015 H/O: endocrine disorder [Z86.39] 07/01/2022 Left ventricular systolic dysfunction [I51.9] 08/31/2015 Edema of lower extremity [R60.0] 07/01/2022 11/21/2022 Malrotation of colon [Q43.3] 07/01/2022 Migraine headache [G43.909] 07/01/2022 Nonrheumatic aortic valve stenosis [I35.0] 11/21/2022 Arteriovenous fistula, acquired (HCC) [I77.0] 11/21/2022 Postoperative pain [G89.18] 08/07/2023 Peripheral arterial disease (HCC) [I73.9] 11/12/2023 Encounter Status:Closed by YESSY BRIDGES on 09/01/24 Normal [facility] XR SPINE LUMBAR FLEX/EXT W/O BLIQUESon 08-24-2024 XR SPINE LUMBAR FLEX/EXT W/OBLIQUES ORIGINAL EXAMINATION: 7 XRAY VIEWS OF THE LUMBAR SPINE WITH OBLIQUES AND FLEXION/EXTENSION VIEWS08/24/2024 3:49 pm COMPARISON: 09/10/2020. HISTORY: ORDERING SYSTEM PROVIDED HISTORY: Reason for Exam: months of low back pain left sciatica, eval spine health for fracture malalignment etc FINDINGS: There are 5 lumbar-type vertebral bodies. Vertebral body heights are maintained. There is slight retrolisthesis of L2 on L3 and L3 on L4. These findings appear unchanged on flexion and extension imaging. Intervertebral disc space heights are maintained. Mild facet arthropathy is noted within the lower lumbar spine. A poly lobulated calcified density projects over the right pelvis. ICD leads are partially visualized. IMPRESSION: No acute osseous abnormality. Mild multilevel degenerative changes within the lumbar spine, as described above. These findings have slightly progressed since the prior exam. Nonspecific calcified body in the pelvis, similar to the prior exam I have personally reviewed the images of this examination and agree with the resident's findings and interpretation. Interpreted by: Jaycob Grimaldo MD Preliminary Report By: Martinez Barrios Electronically signed By Jaycob Grimaldo MD Dictated Date: 08/24/2024 3:54:48 PM Prelim Date: 08/24/2024 4:23:52 PM Sign Date: 08/24/2024 4:23:52 PM Ordering Provider: MONIE ALSTON [facility] [place] 08-04-2024 CNPN Telephone (Kleen ExtremeSMN) -- CARLITOS SWEENEY ([id number]) 1975 M NFR Date Time Provider Department 08/04/24 GIO VELARDE During your visit today, we recorded the following information about you: Yessy Bridges 08/04/2024 2:34 PM Signed Received returned mail from post office, triend calling patient to verify correct address, no answer and no v/m available. Allergies As of Date: 08/04/2024 Noted Allergy Reaction IODINATED CONTRAST MEDIA 07/13/2019 2 - Rash CYCLOBENZAPRINE 02/05/2017 16 - Unknown DYE 07/04/2015 14 - Other: See Comments Comments: IV contrast makes pt run a high temperature PENICILLINS 05/16/2003 2 - Rash PROCARDIA (NIFEDIPINE) 05/28/2016 7 - Swelling TRAMADOL 02/05/2017 16 - Unknown Date Reviewed: 05/30/2024 Reviewed by: Enriqueta Mcleod MA - Fully Assessed Reason for Visit: Patient Update [1234] Prescriptions as of 08/04/2024 - predniSONE (DELTASONE) 10 mg tablet Take 4 tabs daily for 3 days, then 2 tabs daily for 3 days, then 1 tab daily for 3 days with food. - albuterol HFA (PROVENTIL HFA, VENTOLIN HFA) 90 mcg/actuation inhaler Inhale 2 Puffs as instructed every 4 hours as needed for wheezing/shortness of breath. - predniSONE (DELTASONE) 10 mg tablet Take 4 tabs daily for 3 days, then 2 tabs daily for 3 days, then 1 tab daily for 3 days with food. - hydrALAZINE (APRESOLINE) 50 mg tablet Take 100 mg by mouth three times a day. - atorvastatin (LIPITOR) 40 mg tablet Take 1 tablet by mouth daily at bedtime. - aspirin 81 mg chewable tablet 1 tablet by ORAL/FEEDING TUBE route once daily. - carvedilol (COREG) 3.125 mg tablet Take 1 tablet by mouth twice daily with meals. Per [facility] - sevelamer carbonate (RENVELA) 800 mg tablet Take 1 tablet by mouth three times daily. - acetaminophen (TYLENOL) 325 mg tablet Take 2 tablets every 4 hours as needed for pain. Problem List As Of Date 08/04/2024 Noted Resolved Kidney replaced by transplant [Z94.0] 02/11/2005 Benign hypertensive kidney disease with chronic*02/11/2005 CKD (chronic kidney disease) stage 5, GFR less *04/26/2013 Kidney transplant failure and rejection [T86.12*05/12/2013 Essential hypertension [I10] 09/10/2013 Anxiety [F41.9] 10/01/2013 Abdominal pain [R10.9] 10/01/2013 MRSA colonization, nasal [Z22.322] 02/28/2014 Smoker [F17.200] 08/18/2015 Chronic obstructive pulmonary disease (HCC) [J4*08/18/2015 Chronic combined systolic and diastolic CHF (co*08/18/2015 Hemodialysis patient ([facility]) [Z99.2] 03/28/2016 Gastroesophageal reflux disease without esophag*10/23/2016 Noncompliance with renal dialysis (HCC) [Z91.15*10/23/2016 Noncompliance with treatment [Z91.199] 10/23/2016 Implantable cardioverter-defibrillator (ICD) in*02/12/2017 ESRD (end stage renal disease) (HCC) [N18.6] 02/12/2017 Hypertensive heart disease with congestive hear*02/12/2017 Elevated hemoglobin A1c [R73.09] 10/13/2020 Psychophysiological insomnia [F51.04] 11/14/2020 Mild episode of recurrent major depressive diso*09/04/2021 Recurrent right pleural effusion [J90] 02/12/2022 11/21/2022 Acute respiratory failure with hypoxemia (HCC) *07/01/2022 11/21/2022 Anemia associated with stage 5 chronic renal fa*07/01/2022 Cardiomyopathy (HCC) [I42.9] 07/01/2022 Complication of catheter [T85.9XXA] 07/01/2022 Encounter for screening for cardiovascular diso*07/01/2022 History of implantable cardiac defibrillator (I*02/03/2015 History of cardiac pacemaker in situ [Z95.0] 08/31/2015 H/O: endocrine disorder [Z86.39] 07/01/2022 Left ventricular systolic dysfunction [I51.9] 08/31/2015 Edema of lower extremity [R60.0] 07/01/2022 11/21/2022 Malrotation of colon [Q43.3] 07/01/2022 Migraine headache [G43.909] 07/01/2022 Nonrheumatic aortic valve stenosis [I35.0] 11/21/2022 Arteriovenous fistula, acquired (HCC) [I77.0] 11/21/2022 Postoperative pain [G89.18] 08/07/2023 Peripheral arterial disease (HCC) [I73.9] 11/12/2023 Encounter Status:Closed by YESSY BRIDGES on 08/04/24 [facility] 05-30-2024 CNOV Office Visit ([facility] ) -- CARLITOS SWEENEY ([id number]) 1975 M NFR Date Time Provider Department 05/30/24 12:00 PM SOILA MARIATR During your visit today, we recorded the following information about you: Temperature Pulse Respiration Blood pressure 99.5 degrees 95/minute 16/minute 109/69 Weight 72.6 kg Soila Maria APRN.CNP 05/30/2024 12:38 PM Signed This note was created using NoteWriter. Subjective Carlitos Sweeney is a 48 year old male. 48 year old male with PMH migraine, CHF, cardiomyopathy, kidney failure ( @ age of 18) and is M-W-F (last treatment Friday) presents for illness. Acute onset 3 days ago + cough +productive +runny nose +sinus pressure Denies fever or chills Denies body aches Denies N/V/D Denies CP Denies dyspnea Used allergy medicine with some relief of sinus pressure Cough worse with laying down and at night +tobacco usage , but endorses he cannot smoke as much related to illness The history is provided by the patient. No medical language specialist was used. URI He complains of cough, shortness of breath, sputum production and wheezing. There is no chest tightness, difficulty breathing, frequent throat clearing, hemoptysis or hoarse voice. This is a new problem. The current episode started in the past 7 days. The problem occurs constantly. The problem has been gradually worsening. The cough is productive of sputum. Associated symptoms include ear congestion, ear pain, headaches, nasal congestion, postnasal drip, rhinorrhea, sneezing and a sore throat. Pertinent negatives include no appetite change, chest pain, dyspnea on exertion, fever, heartburn, malaise/fatigue, myalgias, orthopnea, PND, sweats, trouble swallowing or weight loss. His symptoms are aggravated by nothing. His symptoms are alleviated by nothing. He reports no improvement on treatment. Risk factors for lung disease include smoking/tobacco exposure. There is no history of asthma, bronchiectasis, bronchitis, COPD, emphysema or pneumonia. PAST MEDICAL HISTORY Diagnosis Date Abdominal pain 10/01/2013 Anemia associated with stage 5 chronic renal failure (HCC) (HCC) 07/01/2022 Anxiety 10/01/2013 Arteriovenous fistula, acquired (HCC) 11/21/2022 BENIGN HYP RENAL W KID FAIL 02/11/2005 Cardiomyopathy (HCC) 07/01/2022 Echo 12/2014 EF 20%. Chronic combined systolic and diastolic CHF (congestive heart failure) ([facility]) 08/18/2015 Seeing cardio in [place] (has pace maker/defibulator) Chronic kidney disease, stage 5 ([facility]) Dialysis M,W,F @ [facility] Chronic obstructive pulmonary disease ([facility]) 08/18/2015 Chronic obstructive pulmonary disease ([facility]) 08/18/[address] Barber ([place]) Congenital solitary kidney pt was born with solitary atrophic kidney Elevated hemoglobin A1c 10/13/2020 End stage renal failure on dialysis ([facility]) 02/12/2017 Essential hypertension 09/10/2013 Gastroesophageal reflux disease without esophagitis 10/23/2016 H/O: endocrine disorder 07/01/2022 Comment on above: HYPERPARATHYROIDISM - DR HERNANDEZ NOTES Hemodialysis patient ([facility]) 03/28/2016 History of cardiac pacemaker in situ 08/31/2015 History of implantable cardiac defibrillator (ICD) 02/03/2015 Hyperkalemia 02/12/2017 Hyperphosphatemia 02/12/2017 Hypertensive heart disease with congestive heart failure ([facility]) 02/12/2017 Hypocalcemia 02/12/2017 Implantable cardioverter-defibrillator (ICD) in situ 02/12/2017 Kidney replaced by transplant 05/27/1997 Kidney transplant failure and rejection 05/12/2013 Kidney transplant rejection 05/12/2013 Left ventricular systolic dysfunction 08/31/2015 Malrotation of colon 07/01/[address]d 07/02/2015 Comment on above: noted on ct abd 07/02/2015 Migraine headache 07/01/2022 Mild episode of recurrent major depressive disorder (HCC) 09/04/2021 Moderate episode of recurrent major depressive disorder (HCC) 10/23/2016 MRSA colonization, nasal 02/28/2014 Nonrheumatic aortic valve stenosis 11/21/2022 Seeing cardio Presence of combination internal cardiac defibrillator (ICD) and pacemaker Psychophysiological insomnia 11/14/2020 Patient needs substance agreement and Tox screening done at appt on 01/10/2021. If cancels or No Shows the Belsomra will be stopped. 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 PAST SURGICAL HISTORY Procedure Laterality Date 2D ECHO (EXEP) 11/02/2020 EF=50%, mod Joshi dysf CHOLECYSTECTOMY INSJ TUNNELED CVC W/O SUBQ PORT/MANAGER TRAINING AND DEVELOPMENT AGE 3 YR/> 01/21/2014 PAST SURGICAL HISTORY OF 05/1997 Renal Transplant, cadaveric PAST SURGICAL HISTORY OF 09/2011 renal transplant PAST SURGICAL HISTORY OF Right cautery right nare for chronic nosebleeds PAST SURGICAL HISTORY OF 01/31/2017 LEFT UPPER ARM AVG (more content not included)... Normal [facility] CNOVon 04-13-2024 CNOV Office Visit ([facility] ) -- CARLITOS SWEENEY ([id number]) 1975 M NFR Date Time Provider Department 04/13/24 2:30 PM SOILA MARIA [facility] During your visit today, we recorded the following information about you: Temperature Pulse Respiration Blood pressure 97.7 degrees 83/minute 18/minute 159/77 Weight 76 kg Soila Maria APRN.CNP 04/13/2024 3:07 PM Signed This note was created using Swankriter. Subjective Carlitosamy Sweeney is a 48 year old male. 48 year old male with extensive PMH which includes cardiomyopathy, HFrEF status post AICD, congenital solitary kidney, COPD, HTN, GERD, ESRD s/p renal transplant now on HD MWF via RUE fistula presents for illness. Acute onset 4 days ago + sinus pressure + cough +productive, increasing sputum Increased SOB Denies dyspnea Denies hemoptysis Denies CP Current tobacco smoker Girlfriend here for same. Patient endorses he was able to complete all of his dialysis yesterday. The history is provided by the patient. No medical language specialist was used. Cough This is a new problem. The current episode started more than 2 days ago. The problem occurs constantly. The problem has been gradually worsening. The cough is Productive of sputum. There has been no fever. Associated symptoms include shortness of breath and wheezing. Pertinent negatives include no chest pain, no chills, no sweats, no weight loss, no ear congestion, no ear pain, no headaches, no rhinorrhea, no sore throat, no myalgias and no eye redness. He has tried nothing for the symptoms. The treatment provided no relief. He is a smoker. His past medical history is significant for bronchitis and COPD. His past medical history does not include pneumonia, bronchiectasis, emphysema or asthma. PAST MEDICAL HISTORY Diagnosis Date Abdominal pain 10/01/2013 Anemia associated with stage 5 chronic renal failure ([facility]) ([facility]) 07/01/2022 Anxiety 10/01/2013 Arteriovenous fistula, acquired ([facility]) 11/21/2022 BENIGN HYP RENAL W KID FAIL 02/11/2005 Cardiomyopathy ([facility]) 07/01/2022 Echo 12/2014 EF 20%. Chronic combined systolic and diastolic CHF (congestive heart failure) ([facility]) 08/18/2015 Seeing cardio in [place] (has pace maker/defibulator) Chronic kidney disease, stage 5 ([facility]) Dialysis M,W,F @ [facility] Chronic obstructive pulmonary disease ([facility]) 08/18/2015 Chronic obstructive pulmonary disease ([facility]) 08/18/[address] Barber ([place]) Congenital solitary kidney pt was born with solitary atrophic kidney Elevated hemoglobin A1c 10/13/2020 End stage renal failure on dialysis ([facility]) 02/12/2017 Essential hypertension 09/10/2013 Gastroesophageal reflux disease without esophagitis 10/23/2016 H/O: endocrine disorder 07/01/2022 Comment on above: HYPERPARATHYROIDISM - DR HERNANDEZ NOTES Hemodialysis patient ([facility]) 03/28/2016 History of cardiac pacemaker in situ 08/31/2015 History of implantable cardiac defibrillator (ICD) 02/03/2015 Hyperkalemia 02/12/2017 Hyperphosphatemia 02/12/2017 Hypertensive heart disease with congestive heart failure ([facility]) 02/12/2017 Hypocalcemia 02/12/2017 Implantable cardioverter-defibrillator (ICD) in situ 02/12/2017 Kidney replaced by transplant 05/27/1997 Kidney transplant failure and rejection 05/12/2013 Kidney transplant rejection 05/12/2013 Left ventricular systolic dysfunction 08/31/2015 Malrotation of colon 07/01/[address]d 07/02/2015 Comment on above: noted on ct abd 07/02/2015 Migraine headache 07/01/2022 Mild episode of recurrent major depressive disorder (HCC) 09/04/2021 Moderate episode of recurrent major depressive disorder (HCC) 10/23/2016 MRSA colonization, nasal 02/28/2014 Nonrheumatic aortic valve stenosis 11/21/2022 Seeing cardio Presence of combination internal cardiac defibrillator (ICD) and pacemaker Psychophysiological insomnia 11/14/2020 Patient needs substance agreement and Tox screening done at appt on 01/10/2021. If cancels or No Shows the Belsomra will be stopped. 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 PAST SURGICAL HISTORY Procedure Laterality Date 2D ECHO (EXEP) 11/02/2020 EF=50%, mod Joshi dysf CHOLECYSTECTOMY INSJ TUNNELED CVC W/O SUBQ PORT/MANAGER TRAINING AND DEVELOPMENT AGE 3 YR/> 01/21/2014 PAST SURGICAL HISTORY OF 05/1997 Renal Transplant, cadaveric PAST SURGICAL HISTORY OF 09/2011 renal transplant PAST SURGICAL HISTORY OF Right cautery right nare for chronic nosebleeds PAST SURGICAL HISTORY OF 01/31/2017 LEFT UPPER ARM AVG ALLERGIES Iodinated Contrast Media, Cyclobenzaprine, Dye, Penicillins, Procardia [Nifedipine], and Tramadol MEDICATIONS hydrALAZINE (APRESOLINE) 50 mg tablet Take 100 mg by mouth three times a day. atorvastatin (LIPITOR) 40 mg tablet Take 1 tablet by m (more content not included)... [facility] CNOVon 04-01-2024 CNOV Office Visit ([facility] ) -- CARLITOS SWEENEY ([id number]) 1975 M NFR Date Time Provider Department 04/01/24 2:30 PM CHRISTAL LIMA [facility] During your visit today, we recorded the following information about you: Temperature Pulse Respiration Blood pressure 98 degrees 93/minute 18/minute 140/80 Weight 76 kg Christal Lima PA 04/01/2024 3:26 PM Signed This note was created using HazelMail. Subjective Carlitos Sweeney is a 48 year old male. Relevant PMH and allergies reviewed: HTN, CHF, ESRD current dialysis patient, smoker, chronic lower back pain Pt is a 48 year old male who presents today with lower back pain x5 days. Pt states he has a history of lower back pain after falling off of a ladder 10-15 years ago but this is the worse his pain has ever been. Pt states this week his lower back pain has been progressively worsening throughout the week. He does not remember any particular injury to his back this week. He denies any new numbness or tingling in the extremities, radiating pain or loss of bowel/bladder. Pt states pain worsens when he tries to get up from laying down, sitting too long or bends over. He was using a back brace to help with the pain, but whenever the brace was off the pain was very intense. Pt states since he is a dialysis patient he is limited on the medication he can use and has to use tylenol for most problem, but the tylenol has not been helping to decrease the lower back pain this week. Pt states he has tried heat and lidocaine patches in the past without any significant relief. He has also tried going to the chiropractor without any lasting relief. Pt denies any fever, chills, nausea, vomiting, abdominal pain, chest pain, shortness of breath, fatigue, weakness and headaches. The history is provided by the patient. No medical language specialist was used. Back Pain This is a chronic problem. The current episode started more than 2 days ago. The problem occurs constantly. The problem has been gradually worsening. The pain is associated with falling. The pain is present in the lumbar spine. The quality of the pain is described as aching. The pain does not radiate. The pain is severe. The symptoms are aggravated by bending and certain positions. The pain is The same all the time. Stiffness is present In the morning. Pertinent negatives include no chest pain, no fever, no numbness, no headaches, no abdominal pain, no bowel incontinence, no bladder incontinence, no dysuria, no tingling and no weakness. He has tried NSAIDs for the symptoms. The treatment provided no relief. PAST MEDICAL HISTORY Diagnosis Date Abdominal pain 10/01/2013 Anemia associated with stage 5 chronic renal failure ([facility]) ([facility]) 07/01/2022 Anxiety 10/01/2013 Arteriovenous fistula, acquired ([facility]) 11/21/2022 BENIGN HYP RENAL W KID FAIL 02/11/2005 Cardiomyopathy ([facility]) 07/01/2022 Echo 12/2014 EF 20%. Chronic combined systolic and diastolic CHF (congestive heart failure) ([facility]) 08/18/2015 Seeing cardio in [place] (has pace maker/defibulator) Chronic kidney disease, stage 5 ([facility]) Dialysis M,W,F @ [facility] Chronic obstructive pulmonary disease ([facility]) 08/18/2015 Chronic obstructive pulmonary disease ([facility]) 08/18/[address] Barber ([place]) Congenital solitary kidney pt was born with solitary atrophic kidney Elevated hemoglobin A1c 10/13/2020 End stage renal failure on dialysis ([facility]) 02/12/2017 Essential hypertension 09/10/2013 Gastroesophageal reflux disease without esophagitis 10/23/2016 H/O: endocrine disorder 07/01/2022 Comment on above: HYPERPARATHYROIDISM - DR HERNANDEZ NOTES Hemodialysis patient ([facility]) 03/28/2016 History of cardiac pacemaker in situ 08/31/2015 History of implantable cardiac defibrillator (ICD) 02/03/2015 Hyperkalemia 02/12/2017 Hyperphosphatemia 02/12/2017 Hypertensive heart disease with congestive heart failure ([facility]) 02/12/2017 Hypocalcemia 02/12/2017 Implantable cardioverter-defibrillator (ICD) in situ 02/12/2017 Kidney replaced by transplant 05/27/1997 Kidney transplant failure and rejection 05/12/2013 Kidney transplant rejection 05/12/2013 Left ventricular systolic dysfunction 08/31/2015 Malrotation of colon 07/01/[address]d 07/02/2015 Comment on above: noted on ct abd 07/02/2015 Migraine headache 07/01/2022 Mild episode of recurrent major depressive disorder ([facility]) 09/04/2021 Moderate episode of recurrent major depressive disorder ([facility]) 10/23/2016 MRSA colonization, nasal 02/28/2014 Nonrheumatic aortic valve stenosis 11/21/2022 Seeing cardio Presence of combination internal cardiac defibrillator (ICD) and pacemaker Psychophysiological insomnia 11/14/2020 Patient [facility] substance agreement [facility] If cancels or No Shows the Belsomra will be stopped. Recurrent right pleural effusion 02/12/2022 Smoker (more content not included)... [facility] XR LUMBAR 3V AP/LAT/L5-S1on 04-01-2024 XR LUMBAR 3V AP/LAT/L5-S1 * * *Final Report* * * DATE OF EXAM: Apr 01 2024 2:58PM WOX [id number] - XR LUMBAR 3V AP/LAT/L5-S1 / PROCEDURE REASON: Lumbar pain * * * * Physician Interpretation * * * * X-ray lumbosacral spine, AP, lateral and L5-S1 views Indication: Low back pain Comparison: CT abdomen and pelvis 01/06/2018 Counting reference: Lumbosacral junction. For the purposes of this report, L5S1 is considered the last lumbar type disc space and L4-5 is considered the level of the iliac crest. No acute fracture or facet subluxation. Mild dextroscoliosis of the lumbar spine. Intervertebral disc spaces are maintained. Sacroiliac joints appear normal. Calcification in the right pelvis corresponds to a calcified atrophic right renal transplant on the prior CT. IMPRESSION: NO EVIDENCE OF FRACTURE Fishing Rod Marker: HENRY Transcribe Date/Time: Apr 01 2024 2:59P Dictated by : HENRIQUE LEES MD This examination was interpreted and the report reviewed and electronically signed by: HENRIQUE LEES MD on Apr 01 2024 3:03PM EST [id number] [facility] XR Lumbar spine 3 Viewson IMPRESSION: NO EVIDE NCE OF FRACTURE Fishing Rod Marker: PSCB Transcribe Date/Time: Apr 01 2024 2:59P Dictated by : HENRIQUE LEES MD This examination was interpreted and the report reviewed and electronically signed by: HENRIQUE LEES MD on Apr 01 2024 3:03PM EST DIVISION OF RADIOLOGY * * *Final Report* * * DATE OF EXAM: Apr 01 2024 2:58PM WOX [id number] - XR LUMBAR 3V AP/LAT/L5-S1 / PROCEDURE REASON: Lumbar pain * * * * Physician Interpretation * * * * X-ray lumbosacral spine, AP, lateral and L5-S1 views Indication: Low back pain Comparison: CT abdomen and pelvis 01/06/2018 Counting reference: Lumbosacral junction. For the purposes of this report, L5S1 is considered the last lumbar type disc space and L4-5 is considered the level of the iliac crest. No acute fracture or facet subluxation. Mild dextroscoliosis of the lumbar spine. Intervertebral disc spaces are maintained. Sacroiliac joints appear normal. Calcification in the right pelvis corresponds to a calcified atrophic right renal transplant on the prior CT. DIVISION OF RADIOLOGY Provider, Mary Ann Reyna [facility] - 04/01/2024 * * *Final Report* * * DATE OF EXAM: Apr 01 2024 2:58PM WOX [id number] - XR LUMBAR 3V AP/LAT/L5-S1 / PROCEDURE REASON: Lumbar pain * * * * Physician Interpretation * * * * X-ray lumbosacral spine, AP, lateral and L5-S1 views Indication: Low back pain Comparison: CT abdomen and pelvis 01/06/2018 Counting reference: Lumbosacral junction. For the purposes of this report, L5S1 is considered the last lumbar type disc space and L4-5 is considered the level of the iliac crest. No acute fracture or facet subluxation. Mild dextroscoliosis of the lumbar spine. Intervertebral disc spaces are maintained. Sacroiliac joints appear normal. Calcification in the right pelvis corresponds to a calcified atrophic right renal transplant on the prior CT. IMPRESSION IMPRESSION: NO EVIDENCE OF FRACTURE Fishing Rod Marker: PSCB Transcribe Date/Time: Apr 01 2024 2:59P Dictated by : HENRIQUE LEES MD This examination was interpreted and the report reviewed and electronically signed by: HENRIQUE LEES MD on Apr 01 2024 3:03PM EST [facility] Radiology Study observation (narrative) [facility] XR Lumbar spine 3 ViewsOrder ed By: [facility] Provider on 04-01-[address] [facility] Cardiology Visit Reporton Cardiology Visit Report [facility] [address] [place] [address] OFFICE VISIT Date of Service: 03/16/24 MR#: [id number] Acct: [id number] Name: CARLITOS SWEENEY Rep #: [id number] : 1975 Provider: DEBBIE Barboza Age/Sex: 48/M Location: [facility] Status: Signed HPI HPI History of Present Illness Details: Carlitos Sweeney is a 48-year-old gentleman with a history of nonischemic cardiomyopathy with defibrillator placement in 2014. EF has improved. He also has a history of end-stage renal disease for he is on hemodialysis he has had 2 failed kidney transplants. He had an echocardiogram done in 2002 which demonstrated mildly dilated left ventricle, moderately severe global left ventricular systolic dysfunction with an estimated ejection fraction of 30%. Stage II diastolic dysfunction. He did have an echocardiogram in 2020 which demonstrated an EF of 50%. He did undergo a diagnostic heart catheterization at [facility] in September 2022 which demonstrated left ventricle estimated ejection fraction 40 to 45%. Mild coronary artery disease. No significant lesion identified. Nonischemic cardiomyopathy. In January he was noted to have more chest discomfort. He was started on isosorbide. He has not had any further symptoms of chest discomfort since starting the isosorbide. He does not have any worsening shortness of breath His dialysis at //Fri at [facility]. He is done with his treatments by 1030. Intake Vital Signs 02/04/24 15:10 03/16/24 15:18 03/16/24 15:21 Height 5 ft 11 in 5 ft 11 in 5 ft 11 in Weight: 170 lb BMI 23.7 BP 134/78 H Blood Pressure Location Lt brachial Position Sitting Respiration 18 Pulse 77 Pulse Source Monitor Pulse Oximetry (%) 98 Intake Visit Reasons: 6 W FU Artificial Flowers [place] Required: No Is patient in pain?: No Allergies Iodinated Contrast Media (CONTRASTS) Allergy (Verified 03/16/24 15:19) Fever and skin rash Penicillins Allergy (Verified 03/16/24 15:19) Anaphylaxis cyclobenzaprine (From Flexeril) Adverse Reaction (Verified 03/16/24 15:19) dizzy, faints tramadol (From Ultram) Adverse Reaction (Verified 03/16/24 15:19) Rash Medications ???Medication ???Instructions ???Recorded ???Confirmed ???Type acetaminophen 325 mg tablet 650 mg PO Q4H PRN Pain 07/07/19 02/04/24 History sevelamer carbonate 800 mg tablet 800 mg PO TID 08/21/21 02/04/24 History aspirin 81 mg tablet,delayed 81 mg PO DAILY 02/04/24 02/04/24 History release (Adult Low Dose Aspirin) atorvastatin 40 mg tablet (Lipitor) 40 mg PO DAILY 02/04/24 03/16/24 History carvedilol 3.125 mg tablet (Coreg) 3.125 mg PO BID 02/04/24 03/16/24 History isosorbide mononitrate 30 mg 30 mg PO DAILY #30 tabs 02/04/24 03/16/24 Rx tablet,extended release 24 hr hydralazine 50 mg tablet 50 mg PO BID 03/16/24 03/16/24 History Nurse's Note: no medication list, was started on a new blood pressure medication doesnt know what it is PFSH Medical History Inferior vena caval stenosis Steel syndrome Anemia of chronic disease Chest pain History of implantable cardiac defibrillator (ICD) (02/03/15) Chronic systolic (congestive) heart failure Tobacco abuse disorder Systolic murmur Non-ischemic cardiomyopathy GERD (gastroesophageal reflux disease) Anxiety and depression Essential hypertension Problem with dialysis access Non-compliance with renal dialysis Non compliance with medical treatment Non compliance w medication regimen Hyperkalemia COPD (chronic obstructive pulmonary disease) Hyperphosphatemia Anemia due to chronic renal failure treated with erythropoietin, stage 5 ESRD (end stage renal disease) on dialysis Renal transplant failure and rejection Surgical History Hx of cardiac catheterization ( 09/26/22) S/P internal cardiac defibrillator procedure Presence of surgically created primary arteriovenous shunt for hemodialysis Hx of cholecystectomy Hx of kidney transplant Hx of partial thyroidectomy (12/07/99) Family History Father Diabetes Heart disease Hypertension Presence of implantable cardioverter-defibrillator (ICD) Brother Heart disease Hypertension Diabetes Presence of implantable cardioverter-defibrillator (ICD) LVAD (left ventricular assist device) present Social History Smoking Status: Light Smoker (<10/day) second hand exposure: Yes quit status: considering quitting alcohol intake: never substance use type: does not use caffeine: Yes Type: carbonated beverages Number of servings: 3 what type of physical activity do you participate in: walkin (more content not included)... Normal [facility] ICD CLINIC CHECKon 4 AV Delay Adaptive Paced Minimum (ms) [address] [facility] AV Delay Paced (ms) 140 ms [facility] Battery Voltage 2.[address] [facility] Omer RA Pacing Amplitude (volts) 1.[address] [facility] Omer RA Pacing Polarity BI [facility] Omer RA Pacing Pulse Width (ms) 0.[address] [facility] Omer RA Sensing Amplitude (mvolts) 0.[address] [facility] Omer RA Sensing Polarity BI [facility] Omer RV Pacing Amplitude (volts) 1.[address] [facility] Omer RV Pacing Polarity BI [facility] Omer RV Pacing Pulse Width (ms) 0.[address] [facility] Omer RV Sensing Amplitude (mvolts) 0.[address] [facility] Omer RV Sensing Polarity BI [facility] Detection Configuration (Vent) 1 - Zone [facility] FastVT_Detection Interval [address] [facility] ICD FastVT DetectionStatus Monitor [facility] ICD-AMS EPISODES 160 {beats}/min [facility] ICD-ATP Episodes (Vent) [address] [facility] ICD-Device [facility] ICD-Fast Ventricular Tachycardia [address] [facility] ICD-LEADIMPEDANCEATRI AL [address] [facility] ICD-Percent Pacing (Atrial) 2 % [facility] ICD-Percent Pacing (Vent) 0 % [facility] [id number] 0 [facility] ICD-SHOCKSDELIVEREDVE NTRICULAR [address] [facility] Lead Impedance (RV) 736 ohm [facility] Lead Impedance High Voltage [address] [facility] Lead1 g [facility] Lead2 g [facility] Location RV [facility] Location RA [facility] Lower Rate (bpm) 60 {beats}/min [facility] Max Sensor Rate (bpm) 120 {beats}/min [facility] MDT_PROG_TACHY_ZONE_D ETECTIONS_STATUS ENABLED [facility] Model 660619 Itrevia 7 DR-T [facility] Model 359 065 Linox Smart SD 60/[address] [facility] Model Setrox S60 [facility] Pacing Mode DDD [facility] Serial Number [id number] [facility] Serial Number [id number] [facility] Serial Number [id number] [facility] Test Charge Energy 40 J [facility] Test Charge Time 9.3 s [facility] Therapy Status (Vent) Enabled [facility] Thresh RA Capture Amplitude (volts) 0.[address] [facility] Thresh RA Capture Duration (ms) 0.[address] [facility] Thresh RV Capture Amplitude (VOLTS) 0.[address] [facility] Thresh RV Capture Duration (MS) 0.[address] [facility] Tracking Rate (bpm) 140 {beats}/min [facility] VF Zone Detection Interval [address] [facility] VF Zone Therapy Configuration 1 ATP(s) + 8 Shock(s) [facility] No Panel Informationon 08-08 BLANK _ [facility] Implant Date 02/03/[address] [facility] ICD CLINIC CHECKon 4 AV Delay Adaptive Paced Minimum (ms) [address] [facility] AV Delay Adaptive Rate Maximum (bpm) 130 {beats}/min [facility] AV Delay Adaptive Rate Minimum (bpm) 60 {beats}/min [facility] AV Delay Adaptive Sensed Minimum (ms) [address] [facility] AV Delay Adaptive Status ENABLED [facility] AV Delay Paced (ms) 140 ms [facility] AV Delay Sensed (ms) [address] [facility] Omer LV Pacing Polarity Unknown [facility] Omer LV Sensing Polarity Unknown [facility] Omer RA Pacing Amplitude (volts) 1.[address] [facility] Omer RA Pacing Polarity BI [facility] Omer RA Pacing Pulse Width (ms) 0.[address] [facility] Omer RA Sensing Amplitude (mvolts) 0.[address] [facility] Omer RA Sensing Polarity BI [facility] Omer RV Pacing Amplitude (volts) 1.[address] [facility] Omer RV Pacing Polarity BI [facility] Omer RV Pacing Pulse Width (ms) 0.[address] [facility] Omer RV Sensing Amplitude (mvolts) 0.[address] [facility] Omer RV Sensing Polarity BI [facility] Detection Configuration (Vent) 1 - Zone [facility] ICD FastVT DetectionStatus DISABLED [facility] ICD-AMS EPISODES 160 {beats}/min [facility] ICD-Device Mfg BIO [facility] ICD-FALLBACKRATE_BPM DDIR [facility] ICD-Hysteresis Rate 60 {beats}/min C [facility] ICD-PVC Intervention 375 [facility] ICD-Rate Modulation Acceleration Reaction [address] [facility] ICD-Rate Modulation Deceleration 0.[address] [facility] ICD-Rate Modulation [place] Medium [facility] ICD-Rate Modulation Threshold Mean [facility] ICD-Rhythm Sinus Rhythm [facility] Lead1 Mfg BIO [facility] Lead2 Mfg BIO [facility] Location RV [facility] Location RA [facility] Lower Rate (bpm) 60 {beats}/min [facility] Max Sensor Rate (bpm) 120 {beats}/min [facility] MDT_PROG_TACHY_ZONE_D ETECTIONS_STATUS DISABLED [facility] Model 997386 Itrevia 7 DR-Omar [facility] Model 359 065 Linox Smart SD 60/[address] [facility] Model Setrox S60 [facility] Pacemaker Dependent? NO [facility] Pacing Mode DDD [facility] Serial Number [id number] [facility] Serial Number [id number] [facility] Serial Number [id number] [facility] Therapy Status (Vent) Enabled [facility] Tracking Rate (bpm) 140 {beats}/min [facility] VF Zone Detection Interval [address] [facility] VF Zone Therapy Configuration 0 ATP(s) + 8 Shock(s) [facility] No Panel Informationon 08-07 BLANK _ [facility] Implant Date 02/03/[address] [facility] CNPNon 06-30-2023 CNPN Telephone (CDLBME) -- CARLITOS SWEENEY ([id number]) 1975 M NFR Date Time Provider Department 06/30/23 DEBBIE ROBERTSON During your visit today, we recorded the following information about you: Debbie Robertson RN 06/30/2023 1:14 PM Signed Left message regarding reminder for stress test tomorrow and given instructions. Allergies As of Date: 06/30/2023 Noted Allergy Reaction IODINATED CONTRAST MEDIA 07/13/2019 2 - Rash CYCLOBENZAPRINE 02/05/2017 16 - Unknown DYE 07/04/2015 14 - Other: See Comments Comments: IV contrast makes pt run a high temperature PENICILLINS 05/16/2003 2 - Rash PROCARDIA (NIFEDIPINE) 05/28/2016 7 - Swelling TRAMADOL 02/05/2017 16 - Unknown Date Reviewed: 06/04/2023 Reviewed by: Sona Jordan MA - Fully Assessed Reason for Visit: Reminder Call [[id number]] Prescriptions as of 06/30/2023 - predniSONE (DELTASONE) 50 mg Take one tablet by mouth13 hrs prior to scan, then 7 hrs prior to scan and then 1 hr prior to scan - diphenhydrAMINE (BENADRYL) 50 mg capsule Take 1 capsule by mouth as directed for 1 dose. Take 1 capsule by mouth 1 hour prior to your scan. - carvedilol (COREG) 3.125 mg tablet Take 1 tablet by mouth twice daily with meals. Per [facility] - busPIRone (BUSPAR) 5 mg tablet Take 1 tablet by mouth three times daily. - hydrOXYzine HCl (ATARAX) 25 mg tablet Take 0.5 tablets by mouth three times daily as needed for anxiety. - lidocaine (LIDODERM) 5 % Apply 1 Patch as directed every 24 hours. - hydrALAZINE (APRESOLINE) 50 mg tablet Take 50 mg by mouth three times daily. - sevelamer carbonate (RENVELA) 800 mg tablet Take 1 tablet by mouth three times daily. - lisinopril (ZESTRIL, PRINIVIL) 5 mg tablet Take 5 mg by mouth once daily. - amLODIPine (NORVASC) 10 mg tablet Take 1 tablet by mouth once daily. - acetaminophen (TYLENOL) 325 mg tablet Take 2 tablets every 4 hours as needed for pain. - calcium acetate (PHOSLO) 667 mg tab Take 667 mg by mouth as directed. takes 4 capsules 3 times a day plus 2 capsules with each snack. 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] 02/28/2014 Smoker [F17.200] 08/18/2015 Chronic obstructive pulmonary disease (HCC) [J4*08/18/2015 Chronic combined systolic and diastolic CHF (co*08/18/2015 Hemodialysis patient (HCC) [Z99.2] 03/28/2016 Gastroesophageal reflux disease without esophag*10/23/2016 Noncompliance with renal dialysis (HCC) [Z91.15*10/23/2016 Noncompliance with treatment [Z91.199] 10/23/2016 Implantable cardioverter-defibrillator (ICD) in*02/12/2017 ESRD (end stage renal disease) ([facility]) [N18.6] 02/12/2017 Hypertensive heart disease with congestive hear*02/12/2017 Elevated hemoglobin A1c [R73.09] 10/13/2020 Psychophysiological insomnia [F51.04] 11/14/2020 Mild episode of recurrent major depressive diso*09/04/2021 Recurrent right pleural effusion [J90] 02/12/2022 11/21/2022 Acute respiratory failure with hypoxemia (HCC) *07/01/2022 11/21/2022 Anemia associated with stage 5 chronic renal fa*07/01/2022 Cardiomyopathy (HCC) [I42.9] 07/01/2022 Complication of catheter [T85.9XXA] 07/01/2022 Encounter for screening for cardiovascular diso*07/01/2022 History of implantable cardiac defibrillator (I*02/03/2015 History of cardiac pacemaker in situ [Z95.0] 08/31/2015 H/O: endocrine disorder [Z86.39] 07/01/2022 Left ventricular systolic dysfunction [I51.9] 08/31/2015 Edema of lower extremity [R60.0] 07/01/2022 11/21/2022 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 A/V FISTULA GRAFT UNL VAS LABon 06-04-[address] [facility] FT4on 05-13-2023 Free T4 [Mass/Vol] 0.82 ng/dL Normal 0.76-1.46 [facility] ([place]) Comment on above: Performed By: #### P SA, TSH, FT4, VIDH ####[address] [place] [address] PSAon 05-13-2023 Prostate Specific Antigen 0.50 ng/mL Normal 0.00-4.00 [facility] ([place]) Comment on above: Performed By: #### P SA, TSH, FT4, VIDH ####[address] [place] [address] TSHon 05-13-2023 TSH Qn 2.18 m[IU]/L Normal 0.36-3.74 [facility] ([place]) Comment on above: Performed By: #### P SA, TSH, FT4, VIDH ####[address] [place], [place] [address] VIDHon 05-13-2023 Vit. D 25-Hydroxy 44.1 ng/mL Normal [facility] ([place]) Comment on above: Result Comment: Inte rpretive Values Based on Total 25(OH) Vitamin D: Deficient <20 ng/mL Insufficient 20 - <30 ng/mL Sufficient 30-100 ng/mL Performed By: #### P SA, TSH, FT4, VIDH ####[address] [place], [place] [address] XR HAND MINIMUM 3 VIEWS RIGH Ton 05-13-2023 XR HAND MINIMUM 3 VIEWS RIGHT ORIGINAL EXAMINATION: THREE XRAY VIEWS OF THE RIGHT HAND05/13/2023 3:18 pm COMPARISON: None HISTORY: ORDERING SYSTEM PROVIDED HISTORY: Reason for Exam: right thumb wound at tip rule out osteomyelitis FINDINGS: There is no acute fracture or dislocation. There is minimal soft tissue ulceration at the distal tip of the thumb. No subcutaneous gas or osseous erosive change. There is no radiopaque foreign body. The articulations are intact. IMPRESSION: No acute osseous abnormality. Interpreted by: Christopher Bishop DO Preliminary Report By: Christopher Bishop DO Electronically signed By Christopher Bishop DO Dictated Date: 05/13/2023 3:19:36 PM Prelim Date: 05/13/2023 3:20:58 PM Sign Date: 05/13/2023 3:20:58 PM Ordering Provider: MONIE ALSTON [facility] ([place]) IR ARTERIOGRAM-AV SHUNT FIST ULOGRAMon 05-06-2023 IR ARTERIOGRAM-AV SHUNT FISTULOGRAM ORIGINAL HISTORY: ORDERING SYSTEM PROVIDED HISTORY: Reason for Exam: CENTRAL STENOSIS, right upper extremity swelling, hemodialysis PROCEDURE: 1 34000 - Ultrasound guidance for vascular access 2. 97424 - Diagnostic angiography of dialysis circuit (fistulogram) with fluoroscopy (no intervention) 3. 86605 - +Angioplasty, central dialysis segment MEDICAL ASSISTANT OB GYN: Dr. Blunt SILK SCREEN ETCHER: None FLUORO: 60 min AIR KERMA DOSE: 5.2 mGy ANESTHESIA: Moderate conscious sedation administered. Patient was monitored throughout the procedure by nurse. INTRASERVICE TIME (min): 117 CONTRAST: Documented in Surginet. DIALYSIS ACCESS: Right upper arm AV fistula, brachiobasilic MATERIALS: 7 Fr Prelude 6 [place] Island[place] guide catheter ferraro Micropuncture Stiff Glidewire Amplatz Inflator [place] balloons: 14 mm DEFINITIONS: Dialysis circuit: Segments of vessel/graft from arterial anastomosis (including perianastomotic artery immediately adjacent to arterial anastomosis) to the RA. Peripheral dialysis segment: Portion of circuit from arterial anastomosis to central segment. Includes through axillary/cephalic vein as well through CFV. Perianastomotic segment included. Central dialysis segment: All draining veins central to peripheral segment (subclavian, BCV, SVC, EIV, CIV, IVC, and central collaterals). Src: [email or web address] STENOSIS: Normal: 0% stenosis Minimal: <25% stenosis Mild: 25-49% Moderate: 50-69% Severe: >=70% The procedure, risks, limitations, and alternatives were discussed. All questions answered. Written informed consent obtained. Maximal sterile barrier technique including cutaneous antisepsis utilized. Percutaneous site sterilely prepped and draped. Time out performed. Access utilized ultrasound with permanent image stored. After local anesthesia administration, fistula access cannulated with micropuncture directed antegrade. Diagnostic angiography through micropuncture sheath performed. FINDINGS: Peripheral dialysis segment: No severe stenosis of visualized fistula, basilic vein, and axillary vein. Reflux angiogram 2 value with the anastomosis was not performed as there is a strong thrill present. 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 Focal stenosis is projecting just inferior to the medial clavicular head. Right subclavian vein is widely patent.. SVC demonstrates no definite severe stenosis although flow is suboptimal given upstream stenosis. 2 lead left ICD noted. Working sheath placed. Over the wire, balloon dilation performed of stenosis. Prolonged inflation performed for 3 minutes. Severe waisting noted during inflation. Follow up angiography demonstrates minimal 10% residual stenosis. There is near complete resolution of collaterals. However now visible is a mild to moderate 40-50% stenosis of the inferior SVC just upstream to the caval atrial junction. Given markedly improved flow this was not treated at this time as right brachiocephalic lesion treatment may be adequate for clinical response of upper extremity edema. All wires and catheters removed. After sheath removal, hemostasis obtained with manual compression and QuikClot pad. Sterile dressing placed. COMPLICATIONS: None EBL: Minimal CONDITION: Stable, unchanged IMPRESSION: 1. 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 2. Successful balloon dilatation of stenosis with minimal 10% residual stenosis. Also now better visualized due to improve flow into the SVC, there is 40-50% stenosis of the inferior SVC near the cavoatrial junction. This was not treated as resolution of the right brachiocephalic vein lesion may be adequate for relieving right upper extremity swelling. 3. Remaining dialysis circuit demonstrates no significant stenosis. Reflux angiogram not performed the anastomosis given strong thrill present within fistula. DISCHARGE SUMMARY: REASON FOR HOSPITALIZATION: Fistulogram with angioplasty OUTCOME: No acute complication. DISPOSITION: To prior residence. FOLLOW UP: With referring provider and IR as needed. Interpreted by: Aliza Blunt MD Preliminary Report By: Aliza Blunt MD Electronically signed By Aliza Blunt MD Dictated Date: 05/06/2023 5:15:36 PM Prelim Date: 05/06/2023 5:31:16 PM Sign Date: 05/06/2023 5:31:16 PM Ordering Provider: GLORIA Street [facility] ([place]) .Auto Diffon 04-22-2023 Basophil, Absolute 0.0 10 3/mcL Normal 0.0-0.3 Count includes the [facility] ([place]) Comment on above: Performed By: #### C BC, BMP, GFR, PRO, ADIFF, ANEU ####[address] [address] Basophils/100 WBC (Bld) 0.3 % Normal 0.0-2.5 [facility] ([place]) Comment on above: Performed By: #### C BC, BMP, GFR, PRO, ADIFF, ANEU ####[address] [address] Eosinophil, Absolute 0.0 10 3/mcL Normal 0.0-0.7 [facility] ([place]) Comment on above: Performed By: #### C BC, BMP, GFR, PRO, ADIFF, ANEU ####[address] [address] Eosinophils/100 WBC (Bld) 0.0 % Normal 0.0-6.0 [facility] ([place]) Comment on above: Performed By: #### C BC, BMP, GFR, PRO, ADIFF, ANEU ####[address] [address] Lymphocyte, Absolute 0.3 10 3/mcL Low 0.9-4.3 [facility] ([place]) Comment on above: Performed By: #### C BC, BMP, GFR, PRO, ADIFF, ANEU ####[address] [address] Lymphocytes/100 WBC (Bld) 5.2 % Low 20.0-40.0 [facility] ([place]) Comment on above: Performed By: #### C BC, BMP, GFR, PRO, ADIFF, ANEU ####[address] [address] Monocyte, Absolute 0.1 10 3/mcL Normal 0.1-1.4 Count includes the [facility] ([place]) Comment on above: Performed By: #### C BC, BMP, GFR, PRO, ADIFF, ANEU ####[address] [address] Monocytes/100 WBC (Bld) 0.9 % Low 2.0-13.0 [facility] ([place]) Comment on above: Performed By: #### C BC, BMP, GFR, PRO, ADIFF, ANEU ####[address] [address] Neutrophils/100 WBC (Bld) 93.6 % High 50.0-75.0 [facility] ([place]) Comment on above: Performed By: #### C BC, BMP, GFR, PRO, ADIFF, ANEU ####[address] [address] .GFRon 04-22-2023 GFR 7 ml/min/1.73sqm Normal [facility] ([place]) Comment on above: Result Comment: GFR Population mean for , Non- Americans Ages 20-29 = 116 mL/min/1.73 sq.m. Ages 30-39 = 107 mL/min/1.73 sq.m. Ages 40-49 = 99 mL/min/1.73 sq.m. Ages 50-59 = 93 mL/min/1.73 sq.m. Ages 60-69 = 85 mL/min/1.73 sq.m. Ages 70+ = 75 mL/min/1.73 sq.m. Chronic Kidney Disease: Less than 60 mL/min/1.73 square meters End Stage Renal Disease: Less than 15 mL/min/1.73 square meters Performed By: #### C BC, BMP, GFR, PRO, ADIFF, ANEU ####[address] [address] GFR Non- 6 ml/min/1.73sqm Normal [facility] ([place]) Comment on above: Result Comment: GFR Population mean for , Non- Americans Ages 20-29 = 116 mL/min/1.73 sq.m. Ages 30-39 = 107 mL/min/1.73 sq.m. Ages 40-49 = 99 mL/min/1.73 sq.m. Ages 50-59 = 93 mL/min/1.73 sq.m. Ages 60-69 = 85 mL/min/1.73 sq.m. Ages 70+ = 75 mL/min/1.73 sq.m. Chronic Kidney Disease: Less than 60 mL/min/1.73 square meters End Stage Renal Disease: Less than 15 mL/min/1.73 square meters Performed By: #### C BC, BMP, GFR, PRO, ADIFF, ANEU ####[address] [address] .NEUABSon 04-22-2023 Neutrophil, Absolute 5.2 10 3/mcL Normal 2.3-8.1 [facility] ([place]) Comment on above: Performed By: #### C BC, BMP, GFR, PRO, ADIFF, ANEU ####[address] [address] BMPon 04-22-2023 BUN/Creatinine Ratio 4.4 ratio Low 10.0-22.0 Count includes the [facility] ([place]) Comment on above: Performed By: #### C BC, BMP, GFR, PRO, ADIFF, ANEU ####[address] [address] Calcium [Mass/Vol] 9.2 mg/dL Normal 8.7-10.4 [facility] ([place]) Comment on above: Performed By: #### C BC, BMP, GFR, PRO, ADIFF, ANEU ####[address] [address] Chloride [Moles/Vol] 98 mmol/L Normal 98-110 Count includes the [facility] ([place]) Comment on above: Performed By: #### C BC, BMP, GFR, PRO, ADIFF, ANEU ####[address] [address] CO2 [Moles/Vol] 33 mmol/L High 22-32 [facility] ([place]) Comment on above: Performed By: #### C BC, BMP, GFR, PRO, ADIFF, ANEU ####[address] [address] Creatinine [Mass/Vol] 9.81 mg/dL High 0.60-1.40 [facility] ([place]) Comment on above: Performed By: #### C BC, BMP, GFR, PRO, ADIFF, ANEU ####[address] [address] Electrolyte Balance 4.0 mEq/L Normal 4.0-15.0 [facility] ([place]) Comment on above: Performed By: #### C BC, BMP, GFR, PRO, ADIFF, ANEU ####[address] [address] Glucose [Mass/Vol] 134 mg/dL High 70-110 [facility] ([place]) Comment on above: Performed By: #### C BC, BMP, GFR, PRO, ADIFF, ANEU ####[address] [address] Potassium [Moles/Vol] 4.4 mmol/L Normal 3.5-5.0 [facility] ([place]) Comment on above: Performed By: #### C BC, BMP, GFR, PRO, ADIFF, ANEU ####[place] [address] Sodium [Moles/Vol] 135 mmol/L Low 136-145 [facility] ([place]) Comment on above: Performed By: #### C BC, BMP, GFR, PRO, ADIFF, ANEU ####[address] [address] Urea nitrogen [Mass/Vol] 43.0 mg/dL High 8.0-22.0 [facility] ([place]) Comment on above: Performed By: #### C BC, BMP, GFR, PRO, ADIFF, ANEU ####[address] [address] CBCon 04-22-2023 Erythrocyte distribution width (RBC) [Ratio] 15.3 % Normal 11.5-15.5 [facility] ([place]) Comment on above: Performed By: #### C BC, BMP, GFR, PRO, ADIFF, ANEU ####[place] [address] Hematocrit (Bld) [Volume fraction] 33.5 % Low 40.0-52.0 [facility] ([place]) Comment on above: Performed By: #### C BC, BMP, GFR, PRO, ADIFF, ANEU ####[place] [address] Hgb 11.2 G/dL Low 13.0-17.5 [facility] ([place]) Comment on above: Performed By: #### C BC, BMP, GFR, PRO, ADIFF, ANEU ####[place] [address] MCH (RBC) [Entitic mass] 30.6 pg Normal 27.0-33.0 [facility] ([place]) Comment on above: Performed By: #### C BC, BMP, GFR, PRO, ADIFF, ANEU ####[place] [address] MCHC 33.5 G/dL Normal 32.0-36.0 [facility] ([place]) Comment on above: Performed By: #### C BC, BMP, GFR, PRO, ADIFF, ANEU ####[place] [address] MCV (RBC) [Entitic vol] 91.6 fL Normal 81.0-100.0 [facility] ([place]) Comment on above: Performed By: #### C BC, BMP, GFR, PRO, ADIFF, ANEU ####[place] [address] Platelet 228 10 3/mcL Normal 150-450 [facility] ([place]) Comment on above: Performed By: #### C BC, BMP, GFR, PRO, ADIFF, ANEU ####[place] [address] Platelet mean volume (Bld) [Entitic vol] 7.4 fL Normal 6.4-10.5 [facility] ([place]) Comment on above: Performed By: #### C BC, BMP, GFR, PRO, ADIFF, ANEU ####[place] [address] RBC 3.65 10 6/mcL Low 4.50-6.00 [facility] ([place]) Comment on above: Performed By: #### C BC, BMP, GFR, PRO, ADIFF, ANEU ####[place] [address] WBC 5.5 10 3/mcL Normal 4.5-10.8 [facility] ([place]) Comment on above: Performed By: #### C BC, BMP, GFR, PRO, ADIFF, ANEU ####[place] [address] PROon 04-22-2023 INR Coag (PPP) [Relative time] 0.9 {INR} Normal [facility] ([place]) Comment on above: Result Comment: [employer] [place] [employer] [place] [employer] (CHEST, 1992, 102:[id number]) recommended therapeutic range for oral anticoagulant therapy is: LOW RISK: Prophylaxis of venous thrombosis INR: 2.0-3.0 Treatment of pulmonary embolism 2.0-3.0 Prevention of systemic embolism 2.0-3.0 HIGH RISK: Mechanical prosthetic valves 2.5-3.5 Performed By: #### C BC, BMP, GFR, PRO, ADIFF, ANEU ####[place] [address] PT Coag (PPP) [Time] 10.7 s Normal 9.0-14.2 Count includes the [facility] ([place]) Comment on above: Result Comment: Effe ctive 01/05/08, Protime results may be affected by some antibiotics (i.e. Ciprofloxacin, Azithromycin, Bactrim) which may potentiate the action of oral anticoagulants, with further increases in Protime/INR. Performed By: #### C BC, BMP, GFR, PRO, ADIFF, ANEU ####[place] [address] XR WRIST NAVICULAR 4 VIEWS L Ton 01-16-2023 XR WRIST NAVICULAR 4 VIEWS LEFT ORIGINAL EXAMINATION: 4 XRAY VIEWS OF THE LEFT WRIST 01/16/2023 4:39 pm COMPARISON: 02/22/2020 HISTORY: ORDERING SYSTEM PROVIDED HISTORY: Reason for Exam: trauma FINDINGS: No acute fracture or dislocation. The joint spaces are maintained. Maintained carpal arcs.. No radiopaque retained foreign body or appreciable soft tissue swelling. Vascular calcifications. IMPRESSION: No acute fracture or dislocation. I have personally reviewed the images of this examination and agree with the resident's findings and interpretation. Interpreted by: Bernabe Long Preliminary Report By: Elder Fuller Electronically signed By Bernabe Long Dictated Date: 01/16/2023 5:08:21 PM Prelim Date: 01/16/2023 5:10:43 PM Sign Date: 01/16/2023 5:34:20 PM Ordering Provider: ERNST MACIEL [facility]) XR FOOT MINIMUM 3 VIEWS LEFT on 12-28-2022 XR FOOT MINIMUM 3 VIEWS LEFT ORIGINAL EXAMINATION: THREE XRAY VIEWS OF THE LEFT FOOT 12/28/2022 4:57 pm COMPARISON: None. HISTORY: ORDERING SYSTEM PROVIDED HISTORY: Reason for Exam: pain FINDINGS: No acute fracture or dislocation. Chronic appearing irregularity of the big toe proximal phalanx distally, presumably degenerative. Peripheral vascular calcifications. No radiopaque foreign body IMPRESSION: No acute fracture or dislocation. Interpreted by: Lyle Mendenhall Preliminary Report By: Lyle Mendenhall Electronically signed By Lyle Mendenhall Dictated Date: 12/28/2022 5:48:21 PM Prelim Date: 12/28/2022 5:50:37 PM Sign Date: 12/28/2022 5:50:37 PM Ordering Provider: CAROLE LEDBETTER [facility]) CT THORAX W/O CONTRASTon CT THORAX W/O CONTRAST ORIGINAL EXAMINATION: CT OF THE CHEST WITHOUT CONTRAST 11/28/2022 8:03 pm TECHNIQUE: CT of the chest was performed without the administration of intravenous contrast. Multiplanar reformatted images are provided for review. Automated exposure control, iterative reconstruction, and/or weight based adjustment of the mA/kV was utilized to reduce the radiation dose to as low as reasonably achievable. COMPARISON: Chest radiograph 10/08/2022, CT chest 08/31/2022. HISTORY: ORDERING SYSTEM PROVIDED HISTORY: Reason for Exam: pleural effusion. sob on exertion FINDINGS: Thyroid gland is unremarkable. There is no mediastinal or hilar lymphadenopathy. Heart is normal in size without significant pericardial thickening or effusion. Moderate atherosclerotic calcifications are present within coronary arteries and aortic arch. Aorta and pulmonary artery are normal in caliber. Left subclavian approach cardiac pacer/AICD device is noted with the tips projecting at the level of right atrium and right ventricle. Proximal left subclavian artery stent. Major airways are patent. Small loculated right pleural effusion with adjacent atelectasis. Small loculated thick-walled pleural collection measures 7.8 x 3.2 x 2.9 cm (AP X TR x CC), previously 10.5 x 5.4 x 5.2 cm. No pneumothorax. No pneumothorax. Consolidative opacities are improved from previous study. Focal area of subpleural fibrosis noted in the right lower lung. 3-4 mm calcified granulomas vs fibrocalcific scarring noted in the right lower lobe and left upper lobe. No acute or suspicious osseous lesions identified. Partially visualized atrophic left kidney. Small hiatal hernia. IMPRESSION: Loculated right pleural effusion has decreased in size from 08/31/2022, and is described as above. Interval improvement in consolidative opacities within the right lung. I have personally reviewed the images of this examination and agree with the resident's finding and interpretation. Interpreted by: Napoleon Blunt MD Preliminary Report By: Nuzhat Murphy Electronically signed By Napoleon Blunt MD Dictated Date: 11/29/2022 1:25:57 PM Prelim Date: 11/29/2022 2:56:11 PM Sign Date: 11/29/2022 2:56:11 PM Ordering Provider: VINCENZO BARBER [facility] ([place]) EMERGENCY REPORTon 3 EMERGENCY REPORT [facility] EMERGENCY ROOM REPORT NAME ACCOUNT SEX AGE ADMIT DISCHARGE PT MED. RECORD# NUMBER DATE DATE TYPE [facility] [id number] M 46 09/23/22 3 [id number] ROOM: ER DATE OF : 1975 DICTATING PHYSICIAN: Julian Mclean HISTORY OF PRESENT ILLNESS: This is a 46-year-old male who presents with concern for shortness of breath. He states that he woke up this morning and was slightly short of breath. He went outside into the cold air to go to dialysis and became more short of breath. He called EMS. EMS states he was 80% on room air. He was placed on a nonrebreather. He has a slight cough but no worse than normal. He denies any fever, chills, nausea or vomiting. He receives dialysis on Friday, Friday and Friday. He was last dialyzed on Friday, which is now 3 days ago. Full dialysis. PAST MEDICAL HISTORY: COPD and end-stage renal disease. PAST SURGICAL HISTORY: Right AV fistula. SOCIAL HISTORY: Current smoker. REVIEW OF SYSTEMS: Ten systems were reviewed and otherwise negative unless stated above. PHYSICAL EXAMINATION: GENERAL: The patient appears ill, pale and nontoxic. HEENT: Head is normocephalic without evidence of trauma. Eyes: Extraocular motions are intact, PERRLA. Mouth: Buccal mucosa is slightly tacky. NECK: Trachea is midline. Supple. LUNGS: Lungs are coarse with diminished breath sounds bilaterally and expiratory wheezing. Mild to moderate distress. HEART: S1 and S2 appreciated, tachycardic. ABDOMEN: Soft and nontender. No rebound or guarding. MUSCULOSKELETAL: Muscle strength is +5/5 in the upper and lower extremities. EXTREMITIES: Right upper extremity fistula with palpable thrill. NEUROLOGIC: Alert. No focal deficits. SKIN: Pale. PSYCHIATRIC: Mood and affect are normal. DIAGNOSTIC DATA: Abnormal laboratory work as follows: Hemoglobin is 8.8, hematocrit 28, and platelets 506,000. Potassium is 6.1, chloride 95, BUN 65, and creatinine 11.58. AST is 203, ALT 112, and alkaline phosphatase 121. Anion gap is 21. Pro-BNP is greater than 35,000. ABGs showed a pH of 7.51, CO2 of 33, pO2 of 61, and bicarbonate of 27. Chest x-ray shows a right pleural effusion as well as pulmonary edema and possible consolidation. EMERGENCY DEPARTMENT COURSE AND TREATMENT: The patient appears ill. Page 1 of 2 [facility] Emergency Room Report [facility] : 1975 The patient is on a nonrebreather. The patient was switched to nasal cannula at 3 liters and maintained saturations of 93-94%. He was treated with two [id number] DuoNebs with improvement of his respiratory status. He was found to be chronically anemic. The patient also has end-stage renal disease and hyperkalemia. He was treated with calcium gluconate, sodium bicarbonate, insulin, and dextrose. The patient has no current fever or leukocytosis at this time and will not be treated with antibiotic therapy. The patient needs dialysis. I spoke first with [facility] at his request, and they have no bed availability. I then spoke with Yana, who is agreeable to accept the patient. Dr. Avila is the accepting hospitalist. DIAGNOSIS: 1. Acute hypoxemic respiratory failure. 2. End-stage renal disease. 3. Pulmonary edema. 4. Chronic anemia. 5. Pleural effusion. PLAN/DISPOSITION: The patient was transferred in stable condition for further treatment and evaluation. Dictated By: Julian Mclean DO 09/23/22 11:25 JOB #: [id number] Transcribed By: della 09/23/22 11:32 Electronically signed by: E-SIGN: Julian Mclean D.O. 10/14/22 06:57 Page 2 of 2 [facility] Emergency Room Report Normal [facility] 10-08-2022 Troponin I High Sensitivity 34.6 ng/L Normal 0.0-76.2 [facility] ([place]) Comment on above: Performed By: #### T [facility] ####[id number] [place], [place] [address] XR CHEST 2 VIEWSon 3 XR CHEST 2 VIEWS ORIGINAL EXAMINATION: TWO XRAY VIEWS OF THE CHEST 10/08/2022 4:16 pm COMPARISON: Chest x-ray 09/26/2022 HISTORY: ORDERING SYSTEM PROVIDED HISTORY: Reason for Exam: Chest Pain FINDINGS: Left AICD with 2 intact leads in stable position. Stable cardiomediastinal contours. Improved aeration at the left lung base. Moderate locule right pleural effusion has slightly decreased in size. Airspace disease within the right lower lung is relatively unchanged. No vascular congestion or pneumothorax. IMPRESSION: Moderate loculated right pleural effusion has slightly decreased in size from the prior study. There is similar appearance of adjacent pneumonia and/or atelectasis. Improved aeration of the left lung with no residual airspace disease at the left lung base. I have personally reviewed the images of this examination and agree with the resident's findings and interpretation. Interpreted by: Bernabe Long Preliminary Report By: Betsey Mcarthur Electronically signed By Bernabe Long Dictated Date: 10/08/2022 4:25:16 PM Prelim Date: 10/08/2022 4:28:40 PM Sign Date: 10/08/2022 4:29:36 PM Ordering Provider: ELISEO Street [facility] ([place]) .Auto Diffon 09-27-2022 Basophil, Absolute 0.1 10 3/mcL Normal 0.0-0.3 Count includes the [facility] ([place]) Comment on above: Performed By: #### C BC, GFR, BMP, ADIFF, ANEU ####[address] [address] Basophils/100 WBC (Bld) 1.1 % Normal 0.0-2.5 [facility] ([place]) Comment on above: Performed By: #### C BC, GFR, BMP, ADIFF, ANEU ####[address] [address] Eosinophil, Absolute 0.2 10 3/mcL Normal 0.0-0.7 [facility] ([place]) Comment on above: Performed By: #### C BC, GFR, BMP, ADIFF, ANEU ####[address] [address] Eosinophils/100 WBC (Bld) 3.8 % Normal 0.0-6.0 [facility] ([place]) Comment on above: Performed By: #### C BC, GFR, BMP, ADIFF, ANEU ####[address] [address] Lymphocyte, Absolute 0.6 10 3/mcL Low 0.9-4.3 [facility] ([place]) Comment on above: Performed By: #### C BC, GFR, BMP, ADIFF, ANEU ####[address] [address] Lymphocytes/100 WBC (Bld) 10.6 % Low 20.0-40.0 [facility] ([place]) Comment on above: Performed By: #### C BC, GFR, BMP, ADIFF, ANEU ####[address] [address] Monocyte, Absolute 0.7 10 3/mcL Normal 0.1-1.4 Count includes the [facility] ([place]) Comment on above: Performed By: #### C BC, GFR, BMP, ADIFF, ANEU ####[address] [address] Monocytes/100 WBC (Bld) 11.4 % Normal 2.0-13.0 [facility] ([place]) Comment on above: Performed By: #### C BC, GFR, BMP, ADIFF, ANEU ####[address] [address] Neutrophils/100 WBC (Bld) 73.1 % Normal 50.0-75.0 [facility] ([place]) Comment on above: Performed By: #### C BC, GFR, BMP, ADIFF, ANEU ####[address] [address] .GFRon 09-27-2022 GFR 9 ml/min/1.73sqm Normal [facility] ([place]) Comment on above: Result Comment: GFR Population mean for , Non- Americans Ages 20-29 = 116 mL/min/1.73 sq.m. Ages 30-39 = 107 mL/min/1.73 sq.m. Ages 40-49 = 99 mL/min/1.73 sq.m. Ages 50-59 = 93 mL/min/1.73 sq.m. Ages 60-69 = 85 mL/min/1.73 sq.m. Ages 70+ = 75 mL/min/1.73 sq.m. Chronic Kidney Disease: Less than 60 mL/min/1.73 square meters End Stage Renal Disease: Less than 15 mL/min/1.73 square meters Performed By: #### C BC, GFR, BMP, ADIFF, ANEU ####[address] [address] GFR Non- 8 ml/min/1.73sqm Normal [facility] ([place]) Comment on above: Result Comment: GFR Population mean for , Non- Americans Ages 20-29 = 116 mL/min/1.73 sq.m. Ages 30-39 = 107 mL/min/1.73 sq.m. Ages 40-49 = 99 mL/min/1.73 sq.m. Ages 50-59 = 93 mL/min/1.73 sq.m. Ages 60-69 = 85 mL/min/1.73 sq.m. Ages 70+ = 75 mL/min/1.73 sq.m. Chronic Kidney Disease: Less than 60 mL/min/1.73 square meters End Stage Renal Disease: Less than 15 mL/min/1.73 square meters Performed By: #### C BC, GFR, BMP, ADIFF, ANEU ####[address] [address] .NEUABSon 09-27-2022 Neutrophil, Absolute 4.2 10 3/mcL Normal 2.3-8.1 [facility] ([place]) Comment on above: Performed By: #### C BC, GFR, BMP, ADIFF, ANEU ####[place] [address] BMPon 09-27-2022 BUN/Creatinine Ratio 4.3 ratio Low 10.0-22.0 Count includes the [facility] ([place]) Comment on above: Performed By: #### C BC, GFR, BMP, ADIFF, ANEU ####[place] [address] Calcium [Mass/Vol] 8.2 mg/dL Low 8.7-10.4 [facility] ([place]) Comment on above: Performed By: #### C BC, GFR, BMP, ADIFF, ANEU ####[place] [address] Chloride [Moles/Vol] 99 mmol/L Normal 98-110 Count includes the [facility] ([place]) Comment on above: Performed By: #### C BC, GFR, BMP, ADIFF, ANEU ####[place] [address] CO2 [Moles/Vol] 29 mmol/L Normal 22-32 [facility] ([place]) Comment on above: Performed By: #### C BC, GFR, BMP, ADIFF, ANEU ####[address] [address] Creatinine [Mass/Vol] 7.64 mg/dL High 0.60-1.40 [facility] ([place]) Comment on above: Performed By: #### C BC, GFR, BMP, ADIFF, ANEU ####[place] [address] Electrolyte Balance 6.0 mEq/L Normal 4.0-15.0 [facility] ([place]) Comment on above: Performed By: #### C BC, GFR, BMP, ADIFF, ANEU ####[place] [address] Glucose [Mass/Vol] 89 mg/dL Normal 70-110 [facility] ([place]) Comment on above: Performed By: #### C BC, GFR, BMP, ADIFF, ANEU ####[place] [id number] Potassium [Moles/Vol] 5.5 mmol/L High 3.5-5.0 [facility] ([place]) Comment on above: Performed By: #### C BC, GFR, BMP, ADIFF, ANEU ####[place] [address] Sodium [Moles/Vol] 134 mmol/L Low 136-145 [facility] ([place]) Comment on above: Performed By: #### C BC, GFR, BMP, ADIFF, ANEU ####[place] [address] Urea nitrogen [Mass/Vol] 33.0 mg/dL High 8.0-22.0 [facility] ([place]) Comment on above: Performed By: #### C BC, GFR, BMP, ADIFF, ANEU ####[place] [address] CBCon 09-27-2022 Erythrocyte distribution width (RBC) [Ratio] 17.7 % High 11.5-15.5 [facility] ([place]) Comment on above: Performed By: #### C BC, GFR, BMP, ADIFF, ANEU ####[place] [address] Hematocrit (Bld) [Volume fraction] 26.4 % Low 40.0-52.0 [facility] ([place]) Comment on above: Performed By: #### C BC, GFR, BMP, ADIFF, ANEU ####[place] [address] Hgb 8.1 G/dL Low 13.0-17.5 [facility] ([place]) Comment on above: Performed By: #### C BC, GFR, BMP, ADIFF, ANEU ####[place] [address] MCH (RBC) [Entitic mass] 25.1 pg Low 27.0-33.0 [facility] ([place]) Comment on above: Performed By: #### C BC, GFR, BMP, ADIFF, ANEU ####[place] [address] MCHC 30.9 G/dL Low 32.0-36.0 [facility] ([place]) Comment on above: Performed By: #### C BC, GFR, BMP, ADIFF, ANEU ####[place] [address] MCV (RBC) [Entitic vol] 81.2 fL Normal 81.0-100.0 [facility] ([place]) Comment on above: Performed By: #### C BC, GFR, BMP, ADIFF, ANEU ####[place] [address] Platelet 312 10 3/mcL Normal 150-450 [facility] ([place]) Comment on above: Performed By: #### C BC, GFR, BMP, ADIFF, ANEU ####[place] [address] Platelet mean volume (Bld) [Entitic vol] 6.3 fL Low 6.4-10.5 [facility] ([place]) Comment on above: Performed By: #### C BC, GFR, BMP, ADIFF, ANEU ####[place] [address] RBC 3.25 10 6/mcL Low 4.50-6.00 [facility] ([place]) Comment on above: Performed By: #### C BC, GFR, BMP, ADIFF, ANEU ####[place] [address] WBC 5.8 10 3/mcL Normal 4.5-10.8 [facility] ([place]) Comment on above: Performed By: #### C BC, GFR, BMP, ADIFF, ANEU ####[place] [address] Jose 04-07-2023 Potassium [Moles/Vol] 4.1 mmol/L Normal 3.5-5.0 [facility] ([place]) Comment on above: Performed By: #### R BCP #### [address] [address] .Auto Diffon 09-26-2022 Basophil, Absolute 0.0 10 3/mcL Normal 0.0-0.3 Count includes the [facility] ([place]) Comment on above: Performed By: #### G FR, FES, FOL, CMP, MG, FERR, CBC, B12, ADIFF, RFP, ANEU ####[address] [address] Basophils/100 WBC (Bld) 0.8 % Normal 0.0-2.5 [facility] ([place]) Comment on above: Performed By: #### G FR, FES, FOL, CMP, MG, FERR, CBC, B12, ADIFF, RFP, ANEU ####[address] [address] Eosinophil, Absolute 0.2 10 3/mcL Normal 0.0-0.7 [facility] ([place]) Comment on above: Performed By: #### G FR, FES, FOL, CMP, MG, FERR, CBC, B12, ADIFF, RFP, ANEU ####[address] [address] Eosinophils/100 WBC (Bld) 2.5 % Normal 0.0-6.0 [facility] ([place]) Comment on above: Performed By: #### G FR, FES, FOL, CMP, MG, FERR, CBC, B12, ADIFF, RFP, ANEU ####[address] [address] Lymphocyte, Absolute 0.7 10 3/mcL Low 0.9-4.3 [facility] ([place]) Comment on above: Performed By: #### G FR, FES, FOL, CMP, MG, FERR, CBC, B12, ADIFF, RFP, ANEU ####[address] [address] Lymphocytes/100 WBC (Bld) 11.3 % Low 20.0-40.0 [facility] ([place]) Comment on above: Performed By: #### G FR, FES, FOL, CMP, MG, FERR, CBC, B12, ADIFF, RFP, ANEU ####[address] [address] Monocyte, Absolute 0.8 10 3/mcL Normal 0.1-1.4 Count includes the [facility] ([place]) Comment on above: Performed By: #### G FR, FES, FOL, CMP, MG, FERR, CBC, B12, ADIFF, RFP, ANEU ####[address] [address] Monocytes/100 WBC (Bld) 13.1 % High 2.0-13.0 [facility] ([place]) Comment on above: Performed By: #### G FR, FES, FOL, CMP, MG, FERR, CBC, B12, ADIFF, RFP, ANEU ####[address] [address] Neutrophils/100 WBC (Bld) 72.3 % Normal 50.0-75.0 [facility] ([place]) Comment on above: Performed By: #### G FR, FES, FOL, CMP, MG, FERR, CBC, B12, ADIFF, RFP, ANEU ####[address] [address] .GFRon 09-26-2022 GFR 13 ml/min/1.73sqm Normal [facility] ([place]) Comment on above: Result Comment: GFR Population mean for , Non- Americans Ages 20-29 = 116 mL/min/1.73 sq.m. Ages 30-39 = 107 mL/min/1.73 sq.m. Ages 40-49 = 99 mL/min/1.73 sq.m. Ages 50-59 = 93 mL/min/1.73 sq.m. Ages 60-69 = 85 mL/min/1.73 sq.m. Ages 70+ = 75 mL/min/1.73 sq.m. Chronic Kidney Disease: Less than 60 mL/min/1.73 square meters End Stage Renal Disease: Less than 15 mL/min/1.73 square meters Performed By: #### G FR, FES, FOL, CMP, MG, FERR, CBC, B12, ADIFF, RFP, ANEU ####[address] [address] GFR Non- 11 ml/min/1.73sqm Normal [facility] ([place]) Comment on above: Result Comment: GFR Population mean for , Non- Americans Ages 20-29 = 116 mL/min/1.73 sq.m. Ages 30-39 = 107 mL/min/1.73 sq.m. Ages 40-49 = 99 mL/min/1.73 sq.m. Ages 50-59 = 93 mL/min/1.73 sq.m. Ages 60-69 = 85 mL/min/1.73 sq.m. Ages 70+ = 75 mL/min/1.73 sq.m. Chronic Kidney Disease: Less than 60 mL/min/1.73 square meters End Stage Renal Disease: Less than 15 mL/min/1.73 square meters Performed By: #### G FR, FES, FOL, CMP, MG, FERR, CBC, B12, ADIFF, RFP, ANEU ####[place] [address] .NEUABSon 09-26-2022 Neutrophil, Absolute 4.6 10 3/mcL Normal 2.3-8.1 [facility] ([place]) Comment on above: Performed By: #### G FR, FES, FOL, CMP, MG, FERR, CBC, B12, ADIFF, RFP, ANEU ####[place] [address] B12on 09-26-2022 Cobalamin (Vitamin B12) [Mass/Vol] 650 pg/mL Normal 211-911 [facility] ([place]) Comment on above: Performed By: #### G FR, FES, FOL, CMP, MG, FERR, CBC, B12, ADIFF, RFP, ANEU ####[place] [address] CBCon 09-26-2022 Erythrocyte distribution width (RBC) [Ratio] 17.5 % High 11.5-15.5 [facility] ([place]) Comment on above: Performed By: #### G FR, FES, FOL, CMP, MG, FERR, CBC, B12, ADIFF, RFP, ANEU ####[place] [address] Hematocrit (Bld) [Volume fraction] 24.6 % Low 40.0-52.0 [facility] ([place]) Comment on above: Performed By: #### G FR, FES, FOL, CMP, MG, FERR, CBC, B12, ADIFF, RFP, ANEU ####[place] [address] Hgb 7.6 G/dL Low 13.0-17.5 [facility] ([place]) Comment on above: Performed By: #### G FR, FES, FOL, CMP, MG, FERR, CBC, B12, ADIFF, RFP, ANEU ####[place] [address] MCH (RBC) [Entitic mass] 24.9 pg Low 27.0-33.0 [facility] ([place]) Comment on above: Performed By: #### G FR, FES, FOL, CMP, MG, FERR, CBC, B12, ADIFF, RFP, ANEU ####[place] [address] MCHC 30.7 G/dL Low 32.0-36.0 [facility] ([place]) Comment on above: Performed By: #### G FR, FES, FOL, CMP, MG, FERR, CBC, B12, ADIFF, RFP, ANEU ####[place] [address] MCV (RBC) [Entitic vol] 81.0 fL Normal 81.0-100.0 [facility] ([place]) Comment on above: Performed By: #### G FR, FES, FOL, CMP, MG, FERR, CBC, B12, ADIFF, RFP, ANEU ####[place] [address] Platelet 325 10 3/mcL Normal 150-450 [facility] ([place]) Comment on above: Performed By: #### G FR, FES, FOL, CMP, MG, FERR, CBC, B12, ADIFF, RFP, ANEU ####[place] [address] Platelet mean volume (Bld) [Entitic vol] 6.3 fL Low 6.4-10.5 [facility] ([place]) Comment on above: Performed By: #### G FR, FES, FOL, CMP, MG, FERR, CBC, B12, ADIFF, RFP, ANEU ####[place] [address] RBC 3.04 10 6/mcL Low 4.50-6.00 [facility] ([place]) Comment on above: Performed By: #### G FR, FES, FOL, CMP, MG, FERR, CBC, B12, ADIFF, RFP, ANEU ####[place] [address] WBC 6.4 10 3/mcL Normal 4.5-10.8 [facility] ([place]) Comment on above: Performed By: #### G FR, FES, FOL, CMP, MG, FERR, CBC, B12, ADIFF, RFP, ANEU ####[place] [address] CMPon 09-26-2022 Albumin/Globulin [Mass ratio] 0.6 {ratio} Low 0.9-1.6 [facility] ([place]) Comment on above: Performed By: #### G FR, FES, FOL, CMP, MG, FERR, CBC, B12, ADIFF, RFP, ANEU ####[place] [address] ALP [Catalytic activity/Vol] 79 U/L Normal 38-126 [facility] ([place]) Comment on above: Performed By: #### G FR, FES, FOL, CMP, MG, FERR, CBC, B12, ADIFF, RFP, ANEU ####[place] [address] ALT [Catalytic activity/Vol] 70 U/L High 12-55 [facility] ([place]) Comment on above: Performed By: #### G FR, FES, FOL, CMP, MG, FERR, CBC, B12, ADIFF, RFP, ANEU ####[place] [address] AST [Catalytic activity/Vol] 53 U/L High 8-34 [facility] ([place]) Comment on above: Performed By: #### G FR, FES, FOL, CMP, MG, FERR, CBC, B12, ADIFF, RFP, ANEU ####[place] [address] Bili Total 0.20 mg/dL Normal 0.20-1.20 [facility] ([place]) Comment on above: Result Comment: Use of this assay is not recommended for patients undergoing treatment with eltrombopag due to the potential for falsely elevated results. Performed By: #### G FR, FES, FOL, CMP, MG, FERR, CBC, B12, ADIFF, RFP, ANEU ####[place] [address] Globulin 4.4 G/dL High 1.5-3.8 [facility] ([place]) Comment on above: Performed By: #### G FR, FES, FOL, CMP, MG, FERR, CBC, B12, ADIFF, RFP, ANEU ####[place] [address] Total Protein 6.9 G/dL Normal 5.7-8.2 [facility] ([place]) Comment on above: Result Comment: No te - New Reference Range in effect 20 Performed By: #### G FR, FES, FOL, CMP, MG, FERR, CBC, B12, ADIFF, RFP, ANEU ####[place] [address] Ilia 09-26-2022 Ferritin [Mass/Vol] 1977.5 ng/mL High 26.0-388.0 [facility] ([place]) Comment on above: Performed By: #### G FR, FES, FOL, CMP, MG, FERR, CBC, B12, ADIFF, RFP, ANEU ####[place] [address] FESon 09-26-2022 Iron [Mass/Vol] 23 ug/dL Low 65-175 [facility] ([place] Comment on above: Performed By: #### G FR, FES, FOL, CMP, MG, FERR, CBC, B12, ADIFF, RFP, ANEU ####[place] [address] Iron Sat 13 % Normal [facility] ([place] Comment on above: Performed By: #### G FR, FES, FOL, CMP, MG, FERR, CBC, B12, ADIFF, RFP, ANEU ####[place] [address] TIBC 183 mcg/dL Low 250-500 [facility] ([place] Comment on above: Performed By: #### G FR, FES, FOL, CMP, MG, FERR, CBC, B12, ADIFF, RFP, ANEU ####[place] [address] FOLon 09-26-2022 Folate 3.88 ng/mL Low 5.38-24.00 [facility] ([place] Comment on above: Performed By: #### G FR, FES, FOL, CMP, MG, FERR, CBC, B12, ADIFF, RFP, ANEU ####[place] [address] MGon 09-26-2022 Magnesium [Mass/Vol] 2.1 mg/dL Normal 1.6-2.4 Count includes the [facility] ([place]) Comment on above: Performed By: #### G FR, FES, FOL, CMP, MG, FERR, CBC, B12, ADIFF, RFP, ANEU ####[place] [address] RFPon 09-26-2022 Albumin Level 2.5 G/dL Low 3.2-4.8 [facility] ([place] Comment on above: Performed By: #### G FR, FES, FOL, CMP, MG, FERR, CBC, B12, ADIFF, RFP, ANEU ####[place] [address] BUN/Creatinine Ratio 4.0 ratio Low 10.0-22.0 Count includes the [facility] ([place]) Comment on above: Performed By: #### G FR, FES, FOL, CMP, MG, FERR, CBC, B12, ADIFF, RFP, ANEU ####[place] [address] Calcium [Mass/Vol] 8.0 mg/dL Low 8.7-10.4 [facility] ([place]) Comment on above: Performed By: #### G FR, FES, FOL, CMP, MG, FERR, CBC, B12, ADIFF, RFP, ANEU ####[address] [address] Chloride [Moles/Vol] 102 mmol/L Normal 98-110 Count includes the [facility] ([place]) Comment on above: Performed By: #### G FR, FES, FOL, CMP, MG, FERR, CBC, B12, ADIFF, RFP, ANEU ####[address] [address] CO2 [Moles/Vol] 31 mmol/L Normal 22-32 [facility] ([place] Comment on above: Performed By: #### G FR, FES, FOL, CMP, MG, FERR, CBC, B12, ADIFF, RFP, ANEU ####[address] [address] Creatinine [Mass/Vol] 5.75 mg/dL High 0.60-1.40 [facility] ([place]) Comment on above: Performed By: #### G FR, FES, FOL, CMP, MG, FERR, CBC, B12, ADIFF, RFP, ANEU ####[address] [address] Electrolyte Balance 5.0 mEq/L Normal 4.0-15.0 [facility] ([place]) Comment on above: Performed By: #### G FR, FES, FOL, CMP, MG, FERR, CBC, B12, ADIFF, RFP, ANEU ####[address] [address] Glucose [Mass/Vol] 96 mg/dL Normal 70-110 [facility] ([place]) Comment on above: Performed By: #### G FR, FES, FOL, CMP, MG, FERR, CBC, B12, ADIFF, RFP, ANEU ####[address] [address] Phosphate [Mass/Vol] 3.1 mg/dL Normal 2.4-5.1 Count includes the [facility] ([place]) Comment on above: Result Comment: No te - New Reference Range in effect 20 Performed By: #### G FR, FES, FOL, CMP, MG, FERR, CBC, B12, ADIFF, RFP, ANEU ####[place] [address] [address] [place] [id number] Potassium [Moles/Vol] 5.1 mmol/L High 3.5-5.0 [facility] ([place]) Comment on above: Performed By: #### G FR, FES, FOL, CMP, MG, FERR, CBC, B12, ADIFF, RFP, ANEU ####[address] [address] Sodium [Moles/Vol] 138 mmol/L Normal 136-145 [facility] ([place]) Comment on above: Performed By: #### G FR, FES, FOL, CMP, MG, FERR, CBC, B12, ADIFF, RFP, ANEU ####[address] [address] Urea nitrogen [Mass/Vol] 23.0 mg/dL High 8.0-22.0 [facility] ([place] Comment on above: Performed By: #### G FR, FES, FOL, CMP, MG, FERR, CBC, B12, ADIFF, RFP, ANEU ####[address] [address] XR CHEST 1 VIEWon 09-26-2022 XR CHEST 1 VIEW ORIGINAL EXAMINATION: ONE XRAY VIEW OF THE CHEST09/26/2022 9:27 am COMPARISON: 2022 HISTORY: ORDERING SYSTEM PROVIDED HISTORY: Reason for Exam: F/U Vascular Congestion FINDINGS: The heart is enlarged. Pacer/defibrillator device is unchanged. Masslike area of consolidation seen in the right lung base. Bibasilar airspace disease noted. There are likely bilateral pleural effusions, larger on the right. No aggressive osseous lesions identified. IMPRESSION: Masslike consolidative density in the right lung base may correlate with an area of rounded atelectasis on the CT exam. CT surveillance advised Persistent loculated right pleural fluid collection. There is likely a small left pleural effusion Bibasilar lateral airspace disease seen in the lower lungs, more prevalent on the right. Interpreted by: Jaycob Grimaldo MD Preliminary Report By: Jaycob Grimaldo MD Electronically signed By Jaycob Grimaldo MD Dictated Date: 09/26/2022 9:33:57 AM Prelim Date: 09/26/2022 9:36:05 AM Sign Date: 09/26/2022 9:36:05 AM Ordering Provider: NAPOLEON CARVAJAL [facility] ([place]) XR CHEST 1 VIEW ORIGINAL EXAMINATION: ONE XRAY VIEW OF THE CHEST 2022 6:25 pm COMPARISON: Chest x-ray 09/23/2022, CT chest 08/31/2022. HISTORY: ORDERING SYSTEM PROVIDED HISTORY: Reason for Exam: pleural effusion, please check after dialysis FINDINGS: Left subclavian pacemaker/AICD is noted with leads in unchanged position. A left subclavian vascular stent is noted. Surgical clip is noted within the lower right neck. Cardiomediastinal silhouette is stable. Atherosclerotic calcifications are noted within the aortic arch. There is an unchanged moderate right loculated appearing pleural effusion with adjacent hazy airspace disease. Unchanged small left pleural effusion with mild adjacent hazy airspace disease. No pneumothorax. IMPRESSION: No significant change in bilateral lung aeration with moderate loculated right pleural effusion and small left pleural effusion with adjacent hazy airspace disease. I have reviewed this report and agree with the resident findings and interpretation. Interpreted by: Aj Dhaliwal MD Preliminary Report By: Bernabe Chávez Electronically signed By Aj Dhaliwal MD Dictated Date: 2022 10:11:06 PM Prelim Date: 2022 10:13:44 PM Sign Date: 2022 10:16:49 PM Ordering Provider: TONY BOSCH [facility] ([place]) .Auto Diffon 2022 Basophil, Absolute 0.1 10 3/mcL Normal 0.0-0.3 Count includes the [facility] ([place]) Comment on above: Performed By: #### C BC, MG, CMP, ADIFF, GFR, ANEU ####[address] [address] Basophils/100 WBC (Bld) 1.1 % Normal 0.0-2.5 [facility] ([place]) Comment on above: Performed By: #### C BC, MG, CMP, ADIFF, GFR, ANEU ####[address] [address] Eosinophil, Absolute 0.2 10 3/mcL Normal 0.0-0.7 [facility] ([place]) Comment on above: Performed By: #### C BC, MG, CMP, ADIFF, GFR, ANEU ####[address] [address] Eosinophils/100 WBC (Bld) 3.9 % Normal 0.0-6.0 [facility] ([place]) Comment on above: Performed By: #### C BC, MG, CMP, ADIFF, GFR, ANEU ####[address] [address] Lymphocyte, Absolute 0.5 10 3/mcL Low 0.9-4.3 [facility] ([place]) Comment on above: Performed By: #### C BC, MG, CMP, ADIFF, GFR, ANEU ####[address] [address] Lymphocytes/100 WBC (Bld) 9.1 % Low 20.0-40.0 [facility] ([place]) Comment on above: Performed By: #### C BC, MG, CMP, ADIFF, GFR, ANEU ####[address] [address] Monocyte, Absolute 0.6 10 3/mcL Normal 0.1-1.4 Count includes the [facility] ([place]) Comment on above: Performed By: #### C BC, MG, CMP, ADIFF, GFR, ANEU ####[address] [address] Monocytes/100 WBC (Bld) 11.5 % Normal 2.0-13.0 [facility] ([place]) Comment on above: Performed By: #### C BC, MG, CMP, ADIFF, GFR, ANEU ####[address] [address] Neutrophils/100 WBC (Bld) 74.4 % Normal 50.0-75.0 [facility] ([place]) Comment on above: Performed By: #### C BC, MG, CMP, ADIFF, GFR, ANEU ####[address] [address] .GFRon 2022 GFR 9 ml/min/1.73sqm Normal [facility] ([place]) Comment on above: Result Comment: GFR Population mean for , Non- Americans Ages 20-29 = 116 mL/min/1.73 sq.m. Ages 30-39 = 107 mL/min/1.73 sq.m. Ages 40-49 = 99 mL/min/1.73 sq.m. Ages 50-59 = 93 mL/min/1.73 sq.m. Ages 60-69 = 85 mL/min/1.73 sq.m. Ages 70+ = 75 mL/min/1.73 sq.m. Chronic Kidney Disease: Less than 60 mL/min/1.73 square meters End Stage Renal Disease: Less than 15 mL/min/1.73 square meters Performed By: #### C BC, MG, CMP, ADIFF, GFR, ANEU ####[place] [address] GFR Non- 7 ml/min/1.73sqm Normal [facility] ([place]) Comment on above: Result Comment: GFR Population mean for , Non- Americans Ages 20-29 = 116 mL/min/1.73 sq.m. Ages 30-39 = 107 mL/min/1.73 sq.m. Ages 40-49 = 99 mL/min/1.73 sq.m. Ages 50-59 = 93 mL/min/1.73 sq.m. Ages 60-69 = 85 mL/min/1.73 sq.m. Ages 70+ = 75 mL/min/1.73 sq.m. Chronic Kidney Disease: Less than 60 mL/min/1.73 square meters End Stage Renal Disease: Less than 15 mL/min/1.73 square meters Performed By: #### C BC, MG, CMP, ADIFF, GFR, ANEU ####[place] [address] .NEUABSon 2022 Neutrophil, Absolute 3.8 10 3/mcL Normal 2.3-8.1 [facility] ([place]) Comment on above: Performed By: #### C BC, MG, CMP, ADIFF, GFR, ANEU ####[place] [address] ABO/Rh (Gel)on 2022 ABO/Rh Interp Positive Invalid Interpretation Code [facility] ([place]) Comment on above: Performed By: #### A KEYON ABOGEL #### [place] [address] ABS (Gel)on 2022 ABSC Interp (Gel) Negative Normal [facility] ([place]) Comment on above: Performed By: #### A KEYON ABOGEL ####[place] [address] CBCon 2022 Erythrocyte distribution width (RBC) [Ratio] 17.1 % High 11.5-15.5 [facility] ([place]) Comment on above: Performed By: #### C BC, MG, CMP, ADIFF, GFR, ANEU ####[place] [address] Hematocrit (Bld) [Volume fraction] 23.8 % Low 40.0-52.0 [facility] ([place] Comment on above: Performed By: #### C BC, MG, CMP, ADIFF, GFR, ANEU ####[place] [address] Hgb 7.5 G/dL Low 13.0-17.5 [facility] ([place] Comment on above: Performed By: #### C BC, MG, CMP, ADIFF, GFR, ANEU ####[place] [address] MCH (RBC) [Entitic mass] 25.3 pg Low 27.0-33.0 [facility] ([place] Comment on above: Performed By: #### C BC, MG, CMP, ADIFF, GFR, ANEU ####[place] [address] MCHC 31.5 G/dL Low 32.0-36.0 [facility] ([place] Comment on above: Performed By: #### C BC, MG, CMP, ADIFF, GFR, ANEU ####[place] [address] MCV (RBC) [Entitic vol] 80.2 fL Low 81.0-100.0 [facility] ([place] Comment on above: Performed By: #### C BC, MG, CMP, ADIFF, GFR, ANEU ####[place] [address] Platelet 342 10 3/mcL Normal 150-450 [facility] ([place] Comment on above: Performed By: #### C BC, MG, CMP, ADIFF, GFR, ANEU ####[place] [address] Platelet mean volume (Bld) [Entitic vol] 6.6 fL Normal 6.4-10.5 [facility] ([place] Comment on above: Performed By: #### C BC, MG, CMP, ADIFF, GFR, ANEU ####[place] [address] RBC 2.97 10 6/mcL Low 4.50-6.00 [facility] ([place] Comment on above: Performed By: #### C BC, MG, CMP, ADIFF, GFR, ANEU ####[place] [address] WBC 5.2 10 3/mcL Normal 4.5-10.8 [facility] ([place] Comment on above: Performed By: #### C BC, MG, CMP, ADIFF, GFR, ANEU ####[place] [address] CMPon 2022 Albumin Level 2.4 G/dL Low 3.2-4.8 [facility] ([place] Comment on above: Performed By: #### C BC, MG, CMP, ADIFF, GFR, ANEU ####[place] [address] Albumin/Globulin [Mass ratio] 0.6 {ratio} Low 0.9-1.6 [facility] ([place] Comment on above: Performed By: #### C BC, MG, CMP, ADIFF, GFR, ANEU ####[place] [address] ALP [Catalytic activity/Vol] 79 U/L Normal 38-126 [facility] ([place] Comment on above: Performed By: #### C BC, MG, CMP, ADIFF, GFR, ANEU ####[address] [address] ALT [Catalytic activity/Vol] 65 U/L High 12-55 [facility] ([place] Comment on above: Performed By: #### C BC, MG, CMP, ADIFF, GFR, ANEU ####[address] [address] AST [Catalytic activity/Vol] 46 U/L High 8-34 [facility] ([place] Comment on above: Performed By: #### C BC, MG, CMP, ADIFF, GFR, ANEU ####[address] [address] Bili Total <0.20 Normal 0.20-1.20 [facility] ([place] Comment on above: Result Comment: Use of this assay is not recommended for patients undergoing treatment with eltrombopag due to the potential for falsely elevated results. Performed By: #### C BC, MG, CMP, ADIFF, GFR, ANEU ####[address] [address] BUN/Creatinine Ratio 4.7 ratio Low 10.0-22.0 Count includes the [facility] ([place]) Comment on above: Performed By: #### C BC, MG, CMP, ADIFF, GFR, ANEU ####[address] [address] Calcium [Mass/Vol] 7.8 mg/dL Low 8.7-10.4 [facility] ([place]) Comment on above: Performed By: #### C BC, MG, CMP, ADIFF, GFR, ANEU ####[address] [address] Chloride [Moles/Vol] 102 mmol/L Normal 98-110 Count includes the [facility] ([place]) Comment on above: Performed By: #### C BC, MG, CMP, ADIFF, GFR, ANEU ####[address] [address] CO2 [Moles/Vol] 31 mmol/L Normal 22-32 [facility] ([place] Comment on above: Performed By: #### C BC, MG, CMP, ADIFF, GFR, ANEU ####[address] [address] Creatinine [Mass/Vol] 7.85 mg/dL High 0.60-1.40 [facility] ([place]) Comment on above: Performed By: #### C BC, MG, CMP, ADIFF, GFR, ANEU ####[address] [address] Electrolyte Balance 8.0 mEq/L Normal 4.0-15.0 [facility] ([place]) Comment on above: Performed By: #### C BC, MG, CMP, ADIFF, GFR, ANEU ####[address] [address] Globulin 4.1 G/dL High 1.5-3.8 [facility] ([place] Comment on above: Performed By: #### C BC, MG, CMP, ADIFF, GFR, ANEU ####[address] [address] Glucose [Mass/Vol] 124 mg/dL High 70-110 [facility] ([place] Comment on above: Performed By: #### C BC, MG, CMP, ADIFF, GFR, ANEU ####[address] [address] Potassium [Moles/Vol] 4.8 mmol/L Normal 3.5-5.0 [facility] ([place] Comment on above: Performed By: #### C BC, MG, CMP, ADIFF, GFR, ANEU ####[address] [address] Sodium [Moles/Vol] 141 mmol/L Normal 136-145 [facility] ([place]) Comment on above: Performed By: #### C BC, MG, CMP, ADIFF, GFR, ANEU ####[address] [address] Total Protein 6.5 G/dL Normal 5.7-8.2 [facility] ([place]) Comment on above: Result Comment: No te - New Reference Range in effect 20 Performed By: #### C BC, MG, CMP, ADIFF, GFR, ANEU ####[place] [address] Urea nitrogen [Mass/Vol] 37.0 mg/dL High 8.0-22.0 [facility] ([place] Comment on above: Performed By: #### C BC, MG, CMP, ADIFF, GFR, ANEU ####[place] [address] MGon 2022 Magnesium [Mass/Vol] 2.2 mg/dL Normal 1.6-2.4 Count includes the [facility] ([place]) Comment on above: Performed By: #### C BC, MG, CMP, ADIFF, GFR, ANEU ####[place] [address] RBC (Product)on 2022 RBC Product Ready RBC Ready for Pickup Normal [facility] ([place]) Comment on above: Performed By: #### R BCP #### [place] [address] TROPHSon 2022 Troponin I High Sensitivity 32.00 ng/L Normal 0.00-54.00 [facility] ([place]) Comment on above: Result Comment: If t he High Sensitive Troponin result is below the 99th percentile value (<45 ng/L) at the first blood draw, at least two additional blood samples should be drawn before results are interpreted as negative for AMI. Performed By: #### T ROP ####[place] [address] .Auto Diffon 09-24-2022 Basophil, Absolute 0.0 10 3/mcL Normal 0.0-0.3 Count includes the [facility] ([place]) Comment on above: Performed By: #### R BCP #### [place] [address] Basophils/100 WBC (Bld) 0.7 % Normal 0.0-2.5 [facility] ([place] Comment on above: Performed By: #### R BCP #### [place] [address] Eosinophil, Absolute 0.2 10 3/mcL Normal 0.0-0.7 [facility] ([place]) Comment on above: Performed By: #### R BCP #### [address] [address] Eosinophils/100 WBC (Bld) 3.1 % Normal 0.0-6.0 [facility] ([place]) Comment on above: Performed By: #### R BCP #### [address] [address] Lymphocyte, Absolute 0.5 10 3/mcL Low 0.9-4.3 [facility] ([place]) Comment on above: Performed By: #### R BCP #### [address] [address] Lymphocytes/100 WBC (Bld) 9.9 % Low 20.0-40.0 [facility] ([place] Comment on above: Performed By: #### R BCP #### [address] [address] Monocyte, Absolute 0.5 10 3/mcL Normal 0.1-1.4 Count includes the [facility] ([place]) Comment on above: Performed By: #### R BCP #### [address] [address] Monocytes/100 WBC (Bld) 9.7 % Normal 2.0-13.0 [facility] ([place]) Comment on above: Performed By: #### R BCP #### [address] [address] Neutrophils/100 WBC (Bld) 76.6 % High 50.0-75.0 [facility] ([place]) Comment on above: Performed By: #### R BCP #### [address] [address] .GFRon 09-24-2022 GFR Non- 4 ml/min/1.73sqm Normal [facility] ([place]) Comment on above: Result Comment: GFR Population mean for , Non- Americans Ages 20-29 = 116 mL/min/1.73 sq.m. Ages 30-39 = 107 mL/min/1.73 sq.m. Ages 40-49 = 99 mL/min/1.73 sq.m. Ages 50-59 = 93 mL/min/1.73 sq.m. Ages 60-69 = 85 mL/min/1.73 sq.m. Ages 70+ = 75 mL/min/1.73 sq.m. Chronic Kidney Disease: Less than 60 mL/min/1.73 square meters End Stage Renal Disease: Less than 15 mL/min/1.73 square meters Performed By: #### A DIFF, MG, LD, ANEU, GFR, CMP, CBC ####[place] [address] GFR 5 ml/min/1.73sqm Normal [facility] ([place]) Comment on above: Result Comment: GFR Population mean for , Non- Americans Ages 20-29 = 116 mL/min/1.73 sq.m. Ages 30-39 = 107 mL/min/1.73 sq.m. Ages 40-49 = 99 mL/min/1.73 sq.m. Ages 50-59 = 93 mL/min/1.73 sq.m. Ages 60-69 = 85 mL/min/1.73 sq.m. Ages 70+ = 75 mL/min/1.73 sq.m. Chronic Kidney Disease: Less than 60 mL/min/1.73 square meters End Stage Renal Disease: Less than 15 mL/min/1.73 square meters Performed By: #### A DIFF, MG, LD, ANEU, GFR, CMP, CBC ####[place] [address] .NEUABSon 09-24-2022 Neutrophil, Absolute 4.3 10 3/mcL Normal 2.3-8.1 [facility] ([place]) Comment on above: Performed By: #### A DIFF, MG, LD, ANEU, GFR, CMP, CBC ####[place] [address] CBCon 09-24-2022 Erythrocyte distribution width (RBC) [Ratio] 17.4 % High 11.5-15.5 [facility] ([place] Comment on above: Performed By: #### R BCP #### [address] [address] Hematocrit (Bld) [Volume fraction] 24.3 % Low 40.0-52.0 [facility] ([place]) Comment on above: Performed By: #### R BCP #### [place] [address] Hgb 7.7 G/dL Low 13.0-17.5 [facility] ([place] Comment on above: Performed By: #### R BCP #### [place] [address] MCH (RBC) [Entitic mass] 25.0 pg Low 27.0-33.0 [facility] ([place] Comment on above: Performed By: #### R BCP #### [place] [address] MCHC 31.5 G/dL Low 32.0-36.0 [facility] ([place] Comment on above: Performed By: #### R BCP #### [place] [address] MCV (RBC) [Entitic vol] 79.5 fL Low 81.0-100.0 [facility] ([place] Comment on above: Performed By: #### R BCP #### [place] [address] Platelet 368 10 3/mcL Normal 150-450 [facility] ([place]) Comment on above: Performed By: #### R BCP #### [place] [address] Platelet mean volume (Bld) [Entitic vol] 6.9 fL Normal 6.4-10.5 [facility] ([place] Comment on above: Performed By: #### R BCP #### [place] [address] RBC 3.06 10 6/mcL Low 4.50-6.00 [facility] ([place] Comment on above: Performed By: #### R BCP #### [place] [address] WBC 5.6 10 3/mcL Normal 4.5-10.8 [facility] ([place] Comment on above: Performed By: #### R BCP #### [address] [address] CMPon 09-24-2022 Albumin Level 2.4 G/dL Low 3.2-4.8 [facility] ([place] Comment on above: Performed By: #### A DIFF, MG, LD, ANEU, GFR, CMP, CBC ####[address] [address] Albumin/Globulin [Mass ratio] 0.6 {ratio} Low 0.9-1.6 [facility] ([place] Comment on above: Performed By: #### A DIFF, MG, LD, ANEU, GFR, CMP, CBC ####[address] [address] ALP [Catalytic activity/Vol] 89 U/L Normal 38-126 [facility] ([place] Comment on above: Performed By: #### A DIFF, MG, LD, ANEU, GFR, CMP, CBC ####[place] [id number] ALT [Catalytic activity/Vol] 83 U/L High 12-55 [facility] ([place] Comment on above: Performed By: #### A DIFF, MG, LD, ANEU, GFR, CMP, CBC ####[place] [id number] AST [Catalytic activity/Vol] 96 U/L High 8-34 [facility] ([place] Comment on above: Performed By: #### A DIFF, MG, LD, ANEU, GFR, CMP, CBC ####[place] [id number] Bili Total 0.20 mg/dL Normal 0.20-1.20 [facility] ([place]) Comment on above: Result Comment: Use of this assay is not recommended for patients undergoing treatment with eltrombopag due to the potential for falsely elevated results. Performed By: #### A DIFF, MG, LD, ANEU, GFR, CMP, CBC ####[place] [address] BUN/Creatinine Ratio 6.2 ratio Low 10.0-22.0 Count includes the [facility] ([place]) Comment on above: Performed By: #### A DIFF, MG, LD, ANEU, GFR, CMP, CBC ####[place] [address] Calcium [Mass/Vol] 7.5 mg/dL Low 8.7-10.4 [facility] ([place] Comment on above: Performed By: #### A DIFF, MG, LD, ANEU, GFR, CMP, CBC ####[place] [address] Chloride [Moles/Vol] 98 mmol/L Normal 98-110 Count includes the [facility] ([place] Comment on above: Performed By: #### A DIFF, MG, LD, ANEU, GFR, CMP, CBC ####[place] [address] CO2 [Moles/Vol] 27 mmol/L Normal 22-32 [facility] ([place] Comment on above: Performed By: #### A DIFF, MG, LD, ANEU, GFR, CMP, CBC ####[place] [address] Creatinine [Mass/Vol] 12.90 mg/dL High 0.60-1.40 [facility] ([place]) Comment on above: Performed By: #### A DIFF, MG, LD, ANEU, GFR, CMP, CBC ####[place] [address] Electrolyte Balance 13.0 mEq/L Normal 4.0-15.0 [facility] ([place]) Comment on above: Performed By: #### A DIFF, MG, LD, ANEU, GFR, CMP, CBC ####[place] [address] Globulin 4.1 G/dL High 1.5-3.8 [facility] ([place] Comment on above: Performed By: #### A DIFF, MG, LD, ANEU, GFR, CMP, CBC ####[place] [address] Glucose [Mass/Vol] 146 mg/dL High 70-110 [facility] ([place] Comment on above: Performed By: #### A DIFF, MG, LD, ANEU, GFR, CMP, CBC ####[address] [address] Potassium [Moles/Vol] 5.0 mmol/L Normal 3.5-5.0 [facility] ([place]) Comment on above: Performed By: #### A DIFF, MG, LD, ANEU, GFR, CMP, CBC ####[place] [address] Sodium [Moles/Vol] 138 mmol/L Normal 136-145 [facility] ([place]) Comment on above: Performed By: #### A DIFF, MG, LD, ANEU, GFR, CMP, CBC ####[place] [address] Total Protein 6.5 G/dL Normal 5.7-8.2 [facility] ([place]) Comment on above: Result Comment: No te - New Reference Range in effect 20 Performed By: #### A DIFF, MG, LD, ANEU, GFR, CMP, CBC ####[place] [address] Urea nitrogen [Mass/Vol] 80.0 mg/dL High 8.0-22.0 [facility] ([place]) Comment on above: Performed By: #### A DIFF, MG, LD, ANEU, GFR, CMP, CBC ####[place] [address] [facility]Hon 09-24-2022 Hematocrit (Bld) [Volume fraction] 25.2 % Low 40.0-52.0 [facility] ([place]) Comment on above: Order Comment: pleas e check after HD and call for transfusion if less than 8. Performed By: #### H H ####[place] [address] Hgb 8.0 G/dL Low 13.0-17.5 [facility] ([place]) Comment on above: Order Comment: pleas e check after HD and call for transfusion if less than 8. Performed By: #### H H ####[place] [address] LDHon 09-24-2022 LDH 248 U/L High 120-246 [facility] ([place]) Comment on above: Performed By: #### A DIFF, MG, LD, ANEU, GFR, CMP, CBC ####[address] [address] MGon 09-24-2022 Magnesium [Mass/Vol] 2.6 mg/dL High 1.6-2.4 Count includes the [facility] ([place]) Comment on above: Performed By: #### A DIFF, MG, LD, ANEU, GFR, CMP, CBC ####[address] [address] US ABDOMEN LIMITEDon 023 US ABDOMEN LIMITED ORIGINAL EXAMINATION: RIGHT UPPER QUADRANT ULTRASOUND 09/24/2022 3:44 pm COMPARISON: CT abdomen and pelvis 10/11/2021 HISTORY: ORDERING SYSTEM PROVIDED HISTORY: Reason for Exam: Elevated LFTs FINDINGS: LIVER: There is mildly increased echogenicity throughout the liver with obscuration of the underlying portal triads and poor through transmission of sound. No focal hepatic masses. No intrahepatic biliary dilatation. BILIARY SYSTEM: Gallbladder surgically absent. Common bile duct is within normal limits measuring 2.0 mm. RIGHT KIDNEY: Surgically absent. PANCREAS: Visualized portions of the pancreas are unremarkable. OTHER: No evidence of right upper quadrant ascites. IMPRESSION: Mild hepatic steatosis versus other diffuse hepatocellular disease. I have reviewed this report and agree with the resident findings and interpretation. Interpreted by: Aj Dhaliwal MD Preliminary Report By: Bernabe Chávez Electronically signed By Aj Dhaliwal MD Dictated Date: 09/24/2022 4:01:45 PM Prelim Date: 09/24/2022 4:04:42 PM Sign Date: 09/24/2022 4:44:50 PM Ordering Provider: TONY Street [facility] ([place]) .Auto Diffon 09-23-2022 Basophil, Absolute 0.1 10 3/mcL Normal 0.0-0.3 Count includes the [facility] ([place]) Comment on above: Performed By: #### T ROPHS, GFR, ADIFF, ANEU, CBC, BMP ####[address] [address] Basophils/100 WBC (Bld) 1.0 % Normal 0.0-2.5 [facility] ([place]) Comment on above: Performed By: #### T ROPHS, GFR, ADIFF, ANEU, CBC, BMP ####[address] [address] Eosinophil, Absolute 0.0 10 3/mcL Normal 0.0-0.7 [facility] ([place]) Comment on above: Performed By: #### T ROPHS, GFR, ADIFF, ANEU, CBC, BMP ####[address] [address] Eosinophils/100 WBC (Bld) 0.3 % Normal 0.0-6.0 [facility] ([place]) Comment on above: Performed By: #### T ROPHS, GFR, ADIFF, ANEU, CBC, BMP ####[address] [address] Lymphocyte, Absolute 0.7 10 3/mcL Low 0.9-4.3 [facility] ([place]) Comment on above: Performed By: #### T ROPHS, GFR, ADIFF, ANEU, CBC, BMP ####[address] [address] Lymphocytes/100 WBC (Bld) 8.1 % Low 20.0-40.0 [facility] ([place]) Comment on above: Performed By: #### T ROPHS, GFR, ADIFF, ANEU, CBC, BMP ####[address] [address] Monocyte, Absolute 0.8 10 3/mcL Normal 0.1-1.4 Count includes the [facility] ([place]) Comment on above: Performed By: #### T ROPHS, GFR, ADIFF, ANEU, CBC, BMP ####[address] [address] Monocytes/100 WBC (Bld) 9.0 % Normal 2.0-13.0 [facility] ([place]) Comment on above: Performed By: #### T ROPHS, GFR, ADIFF, ANEU, CBC, BMP ####[address] [address] Neutrophils/100 WBC (Bld) 81.6 % High 50.0-75.0 [facility] ([place]) Comment on above: Performed By: #### T ROPHS, GFR, ADIFF, ANEU, CBC, BMP ####[place] [id number] .GFRon 09-23-2022 GFR 6 ml/min/1.73sqm Normal [facility] ([place]) Comment on above: Result Comment: GFR Population mean for , Non- Americans Ages 20-29 = 116 mL/min/1.73 sq.m. Ages 30-39 = 107 mL/min/1.73 sq.m. Ages 40-49 = 99 mL/min/1.73 sq.m. Ages 50-59 = 93 mL/min/1.73 sq.m. Ages 60-69 = 85 mL/min/1.73 sq.m. Ages 70+ = 75 mL/min/1.73 sq.m. Chronic Kidney Disease: Less than 60 mL/min/1.73 square meters End Stage Renal Disease: Less than 15 mL/min/1.73 square meters Performed By: #### T AMAYA, GFR, ADIFF, ANEU, CBC, BMP ####[place] [address] GFR Non- 5 ml/min/1.73sqm Normal [facility] ([place]) Comment on above: Result Comment: GFR Population mean for , Non- Americans Ages 20-29 = 116 mL/min/1.73 sq.m. Ages 30-39 = 107 mL/min/1.73 sq.m. Ages 40-49 = 99 mL/min/1.73 sq.m. Ages 50-59 = 93 mL/min/1.73 sq.m. Ages 60-69 = 85 mL/min/1.73 sq.m. Ages 70+ = 75 mL/min/1.73 sq.m. Chronic Kidney Disease: Less than 60 mL/min/1.73 square meters End Stage Renal Disease: Less than 15 mL/min/1.73 square meters Performed By: #### T AMAYA, GFR, ADIFF, ANEU, CBC, BMP ####[place] [id number] .NEUABSon 09-23-2022 Neutrophil, Absolute 7.2 10 3/mcL Normal 2.3-8.1 [facility] ([place]) Comment on above: Performed By: #### T ROPHS, GFR, ADIFF, ANEU, CBC, BMP ####[facility] [place] [address] ARTERIAL BLOOD GAS ANALYSISo n 09-23-2022 ALLENS TEST Positive Normal [facility] Comment on above: Result Comment: { TI ME CALLED [id number] Performed By: #### 2 17403 #### [facility],[address] [place] [address] ARTERIAL BLOOD GAS ANALYSIS Normal [facility] Comment on above: Result Comment: KARISSA RIAL BLOOD GAS Performed By: #### 2 34083 #### [facility],[address] [place] [address] BE 3 Normal -2 - 3 [facility] Comment on above: Performed By: #### 2 18170 #### [facility],[address] [place], [place] [id number] HCO3 (Bld) [Moles/Vol] 27 mmol/L High 22 - 26 [facility] Comment on above: Performed By: #### 2 43077 #### [facility],[address] [place] [address] Heart rate 104 /min Normal [facility] Comment on above: Performed By: #### 2 10398 #### [facility],[address] [place] [address] MODALITY NC Normal [facility] Comment on above: Performed By: #### 2 73289 #### [facility],[address] [place] [address] PCO2 33 mm Hg Low 35 - 45 [facility] Comment on above: Performed By: #### 2 88153 #### [facility],[address] [place] [address] pH (Bld) 7.51 [pH] High 7.35 - 7.45 [facility] Comment on above: Performed By: #### 2 57107 #### [facility],[address] [place] [address] PO2 61 mm Hg Low 80 - 105 [facility] Comment on above: Performed By: #### 2 13942 #### [facility],[address] [place] [address] SAMPLE SITE LR Normal [facility] Comment on above: Performed By: #### 2 36843 #### [facility],[address] [place] [address] SaO2 93 Low 95 - 98 [facility] Comment on above: Result Comment: TIME RESULT CALLED _[id number] 09/23/22.0753.SONJA. { FIO2/LPM 2L Performed By: #### 2 54734 #### [facility],[address] [place] [address] TOTAL RR 40 Normal [facility] Comment on above: Performed By: #### 2 64936 #### [facility],[address] [place] [address] VENT N/A Normal [facility] Comment on above: Performed By: #### 2 36137 #### [facility],[address] [place] [address] BMPon 09-23-2022 BUN/Creatinine Ratio 6.3 ratio Low 10.0-22.0 Count includes the [facility] ([place]) Comment on above: Performed By: #### T AMAYA, GFR, ADIFF, ANEU, CBC, BMP ####[address] [address] Calcium [Mass/Vol] 8.3 mg/dL Low 8.7-10.4 [facility] ([place]) Comment on above: Performed By: #### T AMAYA, GFR, ADIFF, ANEU, CBC, BMP ####[address] [address] Chloride [Moles/Vol] 98 mmol/L Normal 98-110 Count includes the [facility] ([place]) Comment on above: Performed By: #### T ROPHS, GFR, ADIFF, ANEU, CBC, BMP ####[address] [address] CO2 [Moles/Vol] 26 mmol/L Normal 22-32 [facility] ([place]) Comment on above: Performed By: #### T ROPHS, GFR, ADIFF, ANEU, CBC, BMP ####[address] [address] Creatinine [Mass/Vol] 11.89 mg/dL High 0.60-1.40 [facility] ([place]) Comment on above: Performed By: #### T ROPHS, GFR, ADIFF, ANEU, CBC, BMP ####[place] [address] Electrolyte Balance 14.0 mEq/L Normal 4.0-15.0 [facility] ([place]) Comment on above: Performed By: #### T ROPHS, GFR, ADIFF, ANEU, CBC, BMP ####[place] [address] Glucose [Mass/Vol] 112 mg/dL High 70-110 [facility] ([place]) Comment on above: Performed By: #### T ROPHS, GFR, ADIFF, ANEU, CBC, BMP ####[address] [address] Potassium [Moles/Vol] 5.0 mmol/L Normal 3.5-5.0 [facility] ([place]) Comment on above: Performed By: #### T ROPHS, GFR, ADIFF, ANEU, CBC, BMP ####[address] [address] Sodium [Moles/Vol] 138 mmol/L Normal 136-145 [facility] ([place]) Comment on above: Performed By: #### T ROPHS, GFR, ADIFF, ANEU, CBC, BMP ####[address] [address] Urea nitrogen [Mass/Vol] 75.0 mg/dL High 8.0-22.0 [facility] ([place]) Comment on above: Performed By: #### T ROPHS, GFR, ADIFF, ANEU, CBC, BMP ####[place] [address] CBCon 09-23-2022 Erythrocyte distribution width (RBC) [Ratio] 17.6 % High 11.5-15.5 [facility] ([place]) Comment on above: Performed By: #### T ROPHS, GFR, ADIFF, ANEU, CBC, BMP ####[place] [address] Hematocrit (Bld) [Volume fraction] 26.9 % Low 40.0-52.0 [facility] ([place]) Comment on above: Performed By: #### T ROPHS, GFR, ADIFF, ANEU, CBC, BMP ####[place] [address] Hgb 8.6 G/dL Low 13.0-17.5 [facility] ([place]) Comment on above: Performed By: #### T ROPLITO, GFR, ADIFF, ANEU, CBC, BMP ####[place] [address] MCH (RBC) [Entitic mass] 25.4 pg Low 27.0-33.0 [facility] ([place]) Comment on above: Performed By: #### T ROPLITO, GFR, ADIFF, ANEU, CBC, BMP ####[place] [address] MCHC 32.1 G/dL Normal 32.0-36.0 [facility] ([place]) Comment on above: Performed By: #### T ROPHS, GFR, ADIFF, ANEU, CBC, BMP ####[place] [address] MCV (RBC) [Entitic vol] 79.1 fL Low 81.0-100.0 [facility] ([place]) Comment on above: Performed By: #### T ROPHS, GFR, ADIFF, ANEU, CBC, BMP ####[place] [address] Platelet 387 10 3/mcL Normal 150-450 [facility] ([place]) Comment on above: Performed By: #### T ROPHS, GFR, ADIFF, ANEU, CBC, BMP ####[place] [address] Platelet mean volume (Bld) [Entitic vol] 7.0 fL Normal 6.4-10.5 [facility] ([place]) Comment on above: Performed By: #### T ROPHS, GFR, ADIFF, ANEU, CBC, BMP ####[place] [address] RBC 3.40 10 6/mcL Low 4.50-6.00 [facility] ([place]) Comment on above: Performed By: #### T ROPHS, GFR, ADIFF, ANEU, CBC, BMP ####[place] [address] WBC 8.8 10 3/mcL Normal 4.5-10.8 [facility] ([place]) Comment on above: Performed By: #### T ROPHS, GFR, ADIFF, ANEU, CBC, BMP ####[place] [address] CBC + DIFFon 09-23-2022 Baso # 0.10 x10EE3/UL Normal 0.00 - 0.10 [facility] Comment on above: Performed By: #### 2 59936 #### [facility],[address] [place] [address] Basophils/100 WBC (Bld) 0.7 % Normal 0.0 - 2.0 [facility] Comment on above: Performed By: #### 2 64551 #### [facility],[address] [place] [address] CBC + DIFF Normal [facility] Comment on above: Result Comment: CBC- COMPLETE BLOOD COUNT Performed By: #### 2 91954 #### [address] [address] EO # 0.10 x10EE3/UL Normal 0.00 - 0.50 [facility] Comment on above: Performed By: #### 2 20686 #### [facility],[address] [place] [address] Eosinophils/100 WBC (Bld) 0.6 % Normal 0.0 - 7.0 [facility] Comment on above: Performed By: #### 2 28992 #### [facility],[address] [place] [address] Erythrocyte distribution width (RBC) [Ratio] 17.6 % High 12.0 - 15.6 [facility] Comment on above: Performed By: #### 2 03840 #### [facility],[address] [place] [address] Hematocrit (Bld) [Volume fraction] 28.0 % Low 40.0 - 52.0 [facility] Comment on above: Performed By: #### 2 99056 #### [facility],[address] [place] [address] Hemoglobin (Bld) [Mass/Vol] 8.8 g/dL Low 13.0 - 17.5 [facility] Comment on above: Performed By: #### 2 91290 #### [facility],[address] [place] [address] Lymph # 0.80 x10EE3/UL Normal 0.80 - 2.80 [facility] Comment on above: Performed By: #### 2 50031 #### [facility],[address] [place] [address] Lymphocytes/100 WBC (Bld) 8.2 % Low 20.0 - 45.0 [facility] Comment on above: Performed By: #### 2 92933 #### [facility],[address] [place] [address] MANUAL DIFF N/A Normal [facility] Comment on above: Performed By: #### 2 29650 #### [facility],[address] [place] [address] MCH (RBC) [Entitic mass] 25 pg Low 27 - 33 [facility] Comment on above: Performed By: #### 2 08586 #### [facility],[address] [place] [address] MCHC 31 X10 3 Low 32 - 36 [facility] Comment on above: Performed By: #### 2 31070 #### [facility],[address] [place], [place] [phone] MCV (RBC) [Entitic vol] 80 fL Low 81 - 98 [facility] Comment on above: Performed By: #### 2 11205 #### [facility],[address] [place] [address] [place] # 0.80 x10EE3/UL Normal 0.20 - 1.00 [facility] Comment on above: Performed By: #### 2 87619 #### [facility],[address] [place] [address] MONOS % 8.4 % Normal 0.0 - 10.0 [facility] Comment on above: Performed By: #### 2 43043 #### [facility],[address] [place], [place] [phone] Morphology Jose (Bld) [Interp] N/A Normal [facility] Comment on above: Performed By: #### 2 29090 #### [facility],[address] [place] [address] Neut # 8.00 x10EE3/UL High 1.50 - 7.10 [facility] Comment on above: Performed By: #### 2 13906 #### [facility],[address] [place], [place] [phone] Neutrophils/100 WBC (Bld) 82.1 % High 46.0 - 76.0 [facility] Comment on above: Performed By: #### 2 27527 #### [facility],[address] [place], [place] [phone] PLATELET 506 x10EE3/UL High 150 - 450 [facility] Comment on above: Performed By: #### 2 30069 #### [facility],[address] [place] [address] Platelet mean volume (Bld) [Entitic vol] 6.6 fL Normal 6.4 - 10.5 [facility] Comment on above: Result Comment: AUTO MATED DIFFERENTIAL Performed By: #### 2 00311 #### [facility],[address] [place] [address] RBC 3.51 x 10EE6/UL Low 4.50 - 6.00 [facility] Comment on above: Performed By: #### 2 83467 #### [facility],[address] [place] [address] WBC 9.8 x 10EE3/UL Normal 4.5 - 10.8 [facility] Comment on above: Performed By: #### 2 98617 #### [facility],[address] [place] [address] CHEST 1 VIEWon 09-23-2022 CHEST 1 VIEW [place] [address] Patient: CARLITOS SWEENEY Phone#: : 1975 Age: 46 Gender: M Pt. Type: ER Account: [id number] Location: [facility] Ordering: JULIAN MCLEAN Exam Date: 09/23/2022/7:15 Family Phys: TOM CONTE Charge Code: [id number] Physician: [place] Order #: [id number] Dose#: PROCEDURE: X-RAY CHEST 1 VIEW COMPARISON: [facility], XR, CHEST 2 VIEWS, 02/11/2022, 0:16. INDICATIONS: Shortness of breath. FINDINGS: LUNGS: Asymmetric diffuse hazy opacity in the right lung may represent interstitial edema versus diffuse infiltrate. There is focal superimposed opacity in the right lung base measuring approximately 4.2 x 4.5 cm. There is loss of visualization the right hemidiaphragm, may be due to pleural effusion versus atelectasis or airspace disease Left lung base hazy interstitial markings may represent infiltrate versus atelectasis. VASCULATURE: Normal. Unremarkable pulmonary vasculature. CARDIAC: Cardiomegaly. Left chest wall cardiac device with 2 leads. MEDIASTINUM: Aortic calcifications PLEURA: Obscured right hemidiaphragm may represent pleural effusion or airspace disease BONES: Normal. No fracture or visible bony lesion. OTHER: Vascular stent noted at the level the upper thorax. Monitoring leads project across the thorax CONCLUSION: 1. Right lung base opacity may represent mass versus consolidation. When the patient's acute symptoms have resolved recommend follow-up confirm clearing. 2. Diffuse asymmetric right hazy opacity concerning for diffuse infiltrate versus pulmonary edema. 3. Subtle left lung base hazy opacity may represent infiltrate versus atelectasis Dictated by: Kathy Boateng MD on 09/23/2022 at 8:45 Approved by: Kathy Boateng MD on 09/23/2022 at 8:48 Normal [facility] CMP with eGFRon 09-23-2022 AGE 46 years Normal [facility] Comment on above: Performed By: #### 2 69129 #### [facility],[address] [place] [address] Albumin [Mass/Vol] 3.2 g/dL Low 3.4 - 5.0 [facility] Comment on above: Performed By: #### 2 67038 #### [facility],[address] [place] [address] Albumin/Globulin [Mass ratio] 0.6 {ratio} Low 0.9 - 1.6 [facility] Comment on above: Performed By: #### 2 97109 #### [facility],[address] [place] [address] ALK PHOS 121 U/L High 46 - 116 [facility] Comment on above: Performed By: #### 2 75202 #### [facility],[address] [place] [address] ALT [Catalytic activity/Vol] 112 U/L High 16 - 63 [facility] Comment on above: Performed By: #### 2 10435 #### [facility],[address] [place] [address] Anion gap [Moles/Vol] 21 mmol/L High 10 - 20 [facility] Comment on above: Performed By: #### 2 07138 #### [facility],[address] [place] [address] AST [Catalytic activity/Vol] 203 U/L High 15 - 37 [facility] Comment on above: Performed By: #### 2 19217 #### [facility],[address] [place] [address] B/C RATIO 6 ratio Normal 0 - 30 [facility] Comment on above: Performed By: #### 2 36968 #### [facility],[address] [place] [address] Bilirubin [Mass/Vol] 0.6 mg/dL Normal 0.2 - 1.0 [facility] Comment on above: Performed By: #### 2 09749 #### [facility],[address] [place] [address] Calcium [Mass/Vol] 8.8 mg/dL Normal 8.5 - 10.1 [facility] Comment on above: Performed By: #### 2 58443 #### [facility],[address] [place] [address] Chloride [Moles/Vol] 95 mmol/L Low 98 - 107 [facility] Comment on above: Performed By: #### 2 08644 #### [facility],[address] [place] [address] CMP with eGFR Normal [facility] Comment on above: Result Comment: COMP REHENSIVE METABOLIC PANEL Performed By: #### 2 55967 #### [facility],[address] [place] [address] CO2 [Moles/Vol] 25.8 mmol/L Normal 21.0 - 32.0 [facility] Comment on above: Performed By: #### 2 35048 #### [facility],[address] [place] [address] Creatinine [Mass/Vol] 11.58 mg/dL High 0.70 - 1.30 J l [facility] Comment on above: Performed By: #### 2 70134 #### [facility],[address] [place] [address] eGFR 5 ML/MINUTE Low 60 - 999 [facility] Comment on above: Performed By: #### 2 95024 #### [facility],[address] [place] [address] eGFR(AA) 6 ML/MINUTE Low 60 - 999 [facility] Comment on above: Result Comment: ACCO RDING TO THE NATIONAL KIDNEY DISEASE EDUCATION PROGRAM(NKDE), A NORMAL eGFR IS A VALUE GREATER THAN OR EQUAL TO 60 ML/MIN/1.73 SQ METERS. CHRONIC KIDNEY DISEASE: <60mL/MIN/1.73 SQ METERS KIDNEY FAILURE: <15mL/MIN/1.73 SQ METERS THIS TEST SHOULD ONLY BE USED FOR PATIENTS 18 YEARS OF AGE AND OLDER. Performed By: #### 2 02339 #### [facility],[address] [place] [address] Globulin (S) [Mass/Vol] 5.8 g/dL High 1.5 - 3.8 [facility] Comment on above: Performed By: #### 2 78321 #### [facility],[address] [place] [address] Glucose [Mass/Vol] 103 mg/dL Normal 74 - 106 [facility] Comment on above: Performed By: #### 2 24118 #### [facility],[address] [place] [address] Potassium [Moles/Vol] 6.1 mmol/L Critically high 3.5 - 5.1 [facility] Comment on above: Result Comment: { CA LLED TO SHIELA/Morelia2/BKO { READ BACK BY SHIELA/[id number] Performed By: #### 2 08822 #### [facility],[address] [place] [address] Protein [Mass/Vol] 9.0 g/dL High 6.4 - 8.2 [facility] Comment on above: Performed By: #### 2 94307 #### [facility],[address] [place] [address] Sodium [Moles/Vol] 136 mmol/L Normal 136 - 145 [facility] Comment on above: Performed By: #### 2 28184 #### [facility],[address] [place] [address] Urea nitrogen [Mass/Vol] 65 mg/dL High 7 - 18 [facility] Comment on above: Performed By: #### 2 40288 #### [facility],[address] [place], [place] [address] CORONAVIRUS (SARS) ANTIGEN T ESTon 09-23-2022 EXTERNAL QC DONE? YES Normal [facility] Comment on above: Performed By: #### 2 48272 #### [place] [address] INTERNAL CONTROL PASS Normal [facility] Comment on above: Performed By: #### 2 30219 #### [facility],[address] [place] [address] SARS ANTIGEN Negative Normal NORMAL: NEGATIVE [facility] Comment on above: Performed By: #### 2 41791 #### [place] [address] SEND TO ? YES Normal [facility] Comment on above: Result Comment: SARS -CoV-2 THIS TEST IS BEING USED UNDER THE FDA EUA PROCEDURE. THIS ASSAY HAS BEEN VALIDATED AT [facility] FOR USE WITH NASAL AND NASOPHARYNGEAL SWAB SPECIMENS. INTERPRETIVE DATA TEST RESULTS SHOULD ALWAYS BE CONSIDERED IN THE CONTEXT OF CLINICAL OBSERVATIONS AND EPIDEMIOLOGICAL DATA IN MAKING FINAL DIAGNOSIS AND PATIENT MANAGEMENT DECISIONS. PATIENT MANAGEMENT SHOULD FOLLOW CURRENT CDC GUIDELINES. THE [place]RISTIAN[place] SARS ANTIGEN EMY DOES NOT DIFFERENTIATE BETWEEN SARS-CoV & SARS-CoV-2. A POSITIVE TEST RESULT INDICATES THE PRESENCE OF SARS-CoV-2 NUCLEOCAPSID PROTEIN ANTIGEN, AND THE PATIENT IS INFECTED WITH THE VIRUS AND PRESUMED TO BE CONTAGIOUS. A NEGATIVE TEST RESULT FOR THIS TEST MEANS THAT SARS-CoV-2 NUCLEOCAPSID PROTEIN ANTIGEN WAS NOT PRESENT IN THE SPECIMEN ABOVE THE LIMIT OF DETECTION. HOWEVER, A NEGATIVE RESULT DOES NOT RULE OUT COVID-19 AND SHOULD NOT BE USED THE SOLE BASIS FOR TREATMENT OR PATIENT MANAGEMENT DECISIONS. A NEGATIVE RESULT DOES NOT EXCLUDE THE POSSIBILITY OF COVID-19. NEGATIVE RESULTS, FROM PATIENTS WITH SYMPTOM ONSET BEYOND FIVE DAYS, SHOULD BE TREATED PRESUMPTIVE AND CONFIRMATION WITH A MOLECULAR ASSAY, IF NECESSARY, FOR PATIENT MANAGEMENT, MAY BE PERFORMED. WHEN DIAGNOSTIC TESTING IS NEGATIVE, THE POSSIBLILTY OF A FALSE NEGATIVE RESULT SHOULD BE CONSIDERED IN THE CONTEXT OF A PATIENT'S RECENT EXPOSURES AND THE PRESENCE OF CLINICAL SIGNS AND SYMPTOMS CONSISTENT WITH COVID-19. THE POSSIBILITY OF A FALSE NEGATIVE RESULT SHOULD ESPECIALLY BE CONSIDERED IF THE PATIENT'S RECENT EXPOSURES OR CLINICAL PRESENTATION INDICATE THAT COVID-19 IS LIKELY, AND DIAGNOSTIC TESTS FOR OTHER CAUSES OF ILLNESS (e.g., OTHER RESPIRATORY ILLNESS) ARE NEGATIVE. IF COVID-19 IS STILL SUSPECTED BASED ON EXPOSURE HISTORY TOGETHER WITH OTHER CLINICAL FINDINGS, RE-TESTING SHOULD BE CONSIDERED BY HEALTHCARE PROVIDERS IN CONSULTATION WITH PUBLIC HEALTH AUTHORITIES. Performed By: #### 2 [id number] #### [place] [id number] CULTURE BLOOD [YANA]on Microscopic examination of blood, culture CULTURE BLOOD [YANA] _BLOOD CULTURE_ [facility] RE[facility] AND ATTACHMENTS FOR SCANNED REPORT 09/30/[email or web address] Normal [facility] Comment on above: Performed By: #### 2 [id number] #### [facility],[address] [place] [address] Performed By: #### 2 [id number] #### [address] [address] LACTATEon 09-23-2022 Lactate [Moles/Vol] 1.9 mmol/L Normal 0.4 - 2.0 [facility] Comment on above: Performed By: #### 2 [id number] #### [address] [address] NT-proBNPon 09-23-2022 NT PRO-BNP >53708 High 0 - 125 [facility] Comment on above: Performed By: #### 2 [id number] #### [facility],[address] [place] [address] TROPHSon 09-23-2022 Troponin I High Sensitivity 33.71 ng/L Normal 0.00-54.00 [facility] ([place]) Comment on above: Result Comment: If t he High Sensitive Troponin result is below the 99th percentile value (<45 ng/L) at the first blood draw, at least two additional blood samples should be drawn before results are interpreted as negative for AMI. Performed By: #### T AMAYA ####[place] [address] Troponin I High Sensitivity 42.23 ng/L Normal 0.00-54.00 [facility] ([place]) Comment on above: Result Comment: If t he High Sensitive Troponin result is below the 99th percentile value (<45 ng/L) at the first blood draw, at least two additional blood samples should be drawn before results are interpreted as negative for AMI. Performed By: #### T AMAYA, GFR, ADIFF, ANEU, CBC, BMP ####[place] [id number] TROPONIN I, HIGH SENSITIVITY on 09-23-2022 HS TROPONIN 28.6 pg/mL Normal 0.0 - 76.2 [facility] Comment on above: Performed By: #### 2 [id number] #### [facility],[address] [place] [address] XR CHEST 1 VIEWon 09-23-2022 XR CHEST 1 VIEW ORIGINAL EXAMINATION: ONE XRAY VIEW OF THE CHEST09/23/2022 2:39 pm CHEST ONE VIEW AP/PA COMPARISON: 09/01/2022, 08/31/2022 HISTORY: ORDERING SYSTEM PROVIDED HISTORY: Reason for Exam: Shortness of breath FINDINGS: The heart size is stable. There is a left-sided AICD. There is moderate right pleural effusion with adjacent consolidation. There may be a small left pleural effusion. Prominent interstitial markings are seen in the right lung. Overall aeration is not significantly changed. There is no pneumothorax. No acute osseous abnormality. IMPRESSION: Right basilar consolidation with moderate right pleural effusion. Suspect small left pleural effusion. Overall aeration is not significantly changed. Interpreted by: Christopher Blood MD Preliminary Report By: Christopher Blood MD Electronically signed By Christopher Blood MD Dictated Date: 09/23/2022 3:34:35 PM Prelim Date: 09/23/2022 3:38:23 PM Sign Date: 09/23/2022 3:38:23 PM Ordering Provider: EBER Street [facility] ([place]) XR Chest PA and Lateralon IMPRESSION: Stable abnormal chest. Significant opacification of the right hemithorax. Fishing Rod Marker: PSCB Transcribe Date/Time: Sep 19 2022 4:31P Dictated by : ISIDRO HUGO MD This examination was interpreted and the report reviewed and electronically signed by: ISIDRO HUGO MD on Sep 19 2022 4:33PM [facility] DIVISION OF RADIOLOGY * * *Final Report* * * DATE OF EXAM: Sep 19 2022 12:21PM WOX [id number] - XR CHEST 2V FRONTAL/LAT / PROCEDURE REASON: Pleural effusion * * * * Physician Interpretation * * * * EXAMINATION: CHEST RADIOGRAPH (2 VIEW FRONTAL & LATERAL) CLINICAL HISTORY: Pleural effusion MQ: XC2_6 EXAM DATE/TIME: 09/19/2022 12:21 PM COMPARISON: 09/01/2022 RESULT: Lines, tubes, and devices: Left cardiac pacer and leads is unchanged Lungs and pleura: Large area of opacification involving much of the mid and lower lung field on the right remains consistent with loculated fluid and consolidation. No new significant collapse or consolidation. No pneumothorax Cardiomediastinal silhouette: Stable cardiomediastinal silhouette. Bones and soft tissues: Unremarkable. DIVISION OF RADIOLOGY Provider, [facility] - 09/19/2022 * * *Final Report* * * DATE OF EXAM: Sep 19 2022 12:21PM WOX [id number] - XR CHEST 2V FRONTAL/LAT / PROCEDURE REASON: Pleural effusion * * * * Physician Interpretation * * * * EXAMINATION: CHEST RADIOGRAPH (2 VIEW FRONTAL & LATERAL) CLINICAL HISTORY: Pleural effusion MQ: XC2_6 EXAM DATE/TIME: 09/19/2022 12:21 PM COMPARISON: 09/01/2022 RESULT: Lines, tubes, and devices: Left cardiac pacer and leads is unchanged Lungs and pleura: Large area of opacification involving much of the mid and lower lung field on the right remains consistent with loculated fluid and consolidation. No new significant collapse or consolidation. No pneumothorax Cardiomediastinal silhouette: Stable cardiomediastinal silhouette. Bones and soft tissues: Unremarkable. IMPRESSION IMPRESSION: Stable abnormal chest. Significant opacification of the right hemithorax. Fishing Rod Marker: PSCB Transcribe Date/Time: Sep 19 2022 4:31P Dictated by : ISIDRO HUGO MD This examination was interpreted and the report reviewed and electronically signed by: ISIDRO HUGO MD on Sep 19 2022 4:33PM EST [facility] Radiology Study observation (narrative) [facility] XR Chest PA and LateralOrder ed By: [facility] Provider on 09-19-[address] [facility] CNPNon 09-17-2022 CNPN Telephone [facility] -- CARLITOS SWEENEY ([id number]) 1975 M NFR Date Time Provider Department 09/17/22 VALERIE PUENTE [facility] During your visit today, we recorded the following information about you: Valerie Puente Sec 09/17/2022 9:21 AM Signed The patient was scheduled 09-12-22 with the [facility] Failure Clinic, however, no showed. A letter was mailed to the patient asking them to contact the Clinic to reschedule. Allergies As of Date: 09/17/2022 Noted Allergy Reaction IODINATED CONTRAST MEDIA 07/13/2019 2 - Rash CYCLOBENZAPRINE 02/05/2017 16 - Unknown DYE 07/04/2015 14 - Other: See Comments Comments: IV contrast makes pt run a high temperature PENICILLINS 05/16/2003 2 - Rash PROCARDIA (NIFEDIPINE) 05/28/2016 7 - Swelling TRAMADOL 02/05/2017 16 - Unknown Date Reviewed: 09/16/2022 Reviewed by: Manjit Field MD - Fully Assessed Reason for Visit: Appointment [186] Cmt: [facility] missed appt letter Prescriptions as of 09/17/2022 - busPIRone (BUSPAR) 5 mg tablet Take 1 tablet by mouth three times daily. - hydrOXYzine HCl (ATARAX) 25 mg tablet Take 0.5 tablets by mouth three times daily as needed for itching/rash. - lidocaine (LIDODERM) 5 % Apply 1 Patch as directed every 24 hours. - hydrALAZINE (APRESOLINE) 50 mg tablet Take 50 mg by mouth three times daily. - NIFEdipine XL (ADALAT CC) 30 mg 24 hr tablet Take 30 mg by mouth twice daily. - sevelamer carbonate (RENVELA) 800 mg tablet Take 1 tablet by mouth three times daily. - lisinopril (ZESTRIL, PRINIVIL) 5 mg tablet 5 mg. - amLODIPine (NORVASC) 10 mg tablet Take 1 tablet by mouth once daily. - acetaminophen (TYLENOL) 325 mg tablet Take 2 tablets every 4 hours as needed for pain. - calcium acetate (PHOSLO) 667 mg tab Take 667 mg by mouth as directed. takes 4 capsules 3 times a day plus 2 capsules with each snack. - carvedilol (COREG) 25 mg tablet Take 25 mg by mouth twice daily with meals. Problem List As Of Date 09/17/2022 Noted Resolved Kidney replaced by transplant [Z94.0] 02/11/2005 Benign hypertensive kidney disease with chronic*02/11/2005 CKD (chronic kidney disease) stage 4, GFR 15-29*04/26/2013 Kidney transplant failure and rejection [T86.12*05/12/2013 Essential hypertension [I10] 09/10/2013 Anxiety [F41.9] 10/01/2013 Abdominal pain [R10.9] 10/01/2013 MRSA colonization, nasal [Z22.322] 02/28/2014 Anemia of chronic renal failure [N18.9, D63.1] 08/18/2015 Tobacco use disorder [F17.200] 08/18/2015 Chronic obstructive pulmonary disease (HCC) [J4*08/18/2015 Chronic combined systolic and diastolic CHF (co*08/18/2015 Snores [R06.83] 08/18/2015 Uncontrolled daytime somnolence [R40.0] 08/18/2015 Hemodialysis patient ([facility]) [Z99.2] 03/28/2016 Gastroesophageal reflux disease without esophag*10/23/2016 Moderate episode of recurrent major depressive *10/23/2016 Noncompliance with renal dialysis (HCC) [Z91.15]10/23/2016 Noncompliance with treatment [Z91.199] 10/23/2016 Implantable cardioverter-defibrillator (ICD) in*02/12/2017 End stage renal failure on dialysis (HCC) [N18.*02/12/2017 Hypertensive heart disease with congestive hear*02/12/2017 Elevated hemoglobin A1c [R73.09] 10/13/2020 Psychophysiological insomnia [F51.04] 11/14/2020 Mild episode of recurrent major depressive diso*09/04/2021 Recurrent right pleural effusion [J90] 02/12/2022 Abnormal electrocardiography [R94.31] 07/01/2022 Acute respiratory failure with hypoxemia ([facility]) *07/01/2022 Anemia [D64.9] 07/01/2022 Cardiomyopathy ([facility]) [I42.9] 07/01/2022 Cigarette smoker [F17.210] 02/04/2022 Complication of catheter [T85.9XXA] 07/01/2022 Diarrhea [R19.7] 10/11/2021 Encounter for kidney dialysis [[id number]] 07/01/2022 History of implantable cardiac defibrillator (I*02/03/2015 Headache [R51] 07/01/2022 History of cardiac pacemaker in situ [Z95.0] 08/31/2015 History of end stage renal disease [Z87.448] 07/01/2022 H/O: endocrine disorder [Z86.39] 07/01/2022 Left ventricular systolic dysfunction [I51.9] 08/31/2015 Edema of lower extremity [R60.0] 07/01/2022 Depressive disorder [F32.A] 07/01/2022 Malrotation of colon [Q43.3] 07/01/2022 Migraine headache [G43.909] 07/01/2022 Pneumonia [J18.9] 07/01/2022 Acute dyspnea [R06.00] 07/01/2022 Smoker's respiratory syndrome [F17.200] 08/31/2015 Strain of shoulder [S46.919A] 01/27/2022 Systolic murmur [R01.1] 07/01/2022 Vomiting [R11.10] 10/11/2021 Uremic encephalopathy [G93.49, N19] 07/01/2022 Pleural effusion, right [J90] 09/02/2022 Letter Text Encounter Status:Closed by VALERIE VEGA on 09/17/22 [facility] Telephone ([facility]) -- CARLITOS SWEENEY ([id number]) 1975 M NFR Date Time Provider Department 09/12/22 MYAH BOURGEOIS [facility] During your visit today, we recorded the following information about you: Myah Bourgeois RN 09/12/2022 2:18 PM Signed Call placed to patient for scheduled telehealth appt. Pt did not answer. Voicemail left for pt with [facility] phone number to reschedule. Allergies As of Date: 09/12/2022 Noted Allergy Reaction IODINATED CONTRAST MEDIA 07/13/2019 2 - Rash CYCLOBENZAPRINE 02/05/2017 16 - Unknown DYE 07/04/2015 14 - Other: See Comments Comments: IV contrast makes pt run a high temperature PENICILLINS 05/16/2003 2 - Rash PROCARDIA (NIFEDIPINE) 05/28/2016 7 - Swelling TRAMADOL 02/05/2017 16 - Unknown Date Reviewed: 09/01/2022 Reviewed by: Jana Ochoa RN - Fully Assessed Reason for Visit: Appointment [186] Prescriptions as of 09/12/2022 - busPIRone (BUSPAR) 5 mg tablet Take 1 tablet by mouth three times daily. - hydrOXYzine HCl (ATARAX) 25 mg tablet Take 0.5 tablets by mouth three times daily as needed for itching/rash. - lidocaine (LIDODERM) 5 % Apply 1 Patch as directed every 24 hours. - hydrALAZINE (APRESOLINE) 50 mg tablet Take 50 mg by mouth three times daily. - NIFEdipine XL (ADALAT CC) 30 mg 24 hr tablet Take 30 mg by mouth twice daily. - sevelamer carbonate (RENVELA) 800 mg tablet Take 1 tablet by mouth three times daily. - lisinopril (ZESTRIL, PRINIVIL) 5 mg tablet 5 mg. - amLODIPine (NORVASC) 10 mg tablet Take 1 tablet by mouth once daily. - acetaminophen (TYLENOL) 325 mg tablet Take 2 tablets every 4 hours as needed for pain. - calcium acetate (PHOSLO) 667 mg tab Take 667 mg by mouth as directed. takes 4 capsules 3 times a day plus 2 capsules with each snack. - carvedilol (COREG) 25 mg tablet Take 25 mg by mouth twice daily with meals. Problem List As Of Date 09/12/2022 Noted Resolved Kidney replaced by transplant [Z94.0] 02/11/2005 Benign hypertensive kidney disease with chronic*02/11/2005 CKD (chronic kidney disease) stage 4, GFR 15-29*04/26/2013 Kidney transplant failure and rejection [T86.12*05/12/2013 Essential hypertension [I10] 09/10/2013 Anxiety [F41.9] 10/01/2013 Abdominal pain [R10.9] 10/01/2013 MRSA colonization, nasal [Z22.322] 02/28/2014 Anemia of chronic renal failure [N18.9, D63.1] 08/18/2015 Tobacco use disorder [F17.200] 08/18/2015 Chronic obstructive pulmonary disease (HCC) [J4*08/18/2015 Chronic combined systolic and diastolic CHF (co*08/18/2015 Snores [R06.83] 08/18/2015 Uncontrolled daytime somnolence [R40.0] 08/18/2015 Hemodialysis patient ([facility]) [Z99.2] 03/28/2016 Gastroesophageal reflux disease without esophag*10/23/2016 Moderate episode of recurrent major depressive *10/23/2016 Noncompliance with renal dialysis (HCC) [Z91.15]10/23/2016 Noncompliance with treatment [Z91.199] 10/23/2016 Implantable cardioverter-defibrillator (ICD) in*02/12/2017 End stage renal failure on dialysis (HCC) [N18.*02/12/2017 Hypertensive heart disease with congestive hear*02/12/2017 Elevated hemoglobin A1c [R73.09] 10/13/2020 Psychophysiological insomnia [F51.04] 11/14/2020 Mild episode of recurrent major depressive diso*09/04/2021 Recurrent right pleural effusion [J90] 02/12/2022 Abnormal electrocardiography [R94.31] 07/01/2022 Acute respiratory failure with hypoxemia (HCC) *07/01/2022 Anemia [D64.9] 07/01/2022 Cardiomyopathy (HCC) [I42.9] 07/01/2022 Cigarette smoker [F17.210] 02/04/2022 Complication of catheter [T85.9XXA] 07/01/2022 Diarrhea [R19.7] 10/11/2021 Encounter for kidney dialysis [FZE1810] 07/01/2022 History of implantable cardiac defibrillator (I*02/03/2015 Headache [R51] 07/01/2022 History of cardiac pacemaker in situ [Z95.0] 08/31/2015 History of end stage renal disease [Z87.448] 07/01/2022 H/O: endocrine disorder [Z86.39] 07/01/2022 Left ventricular systolic dysfunction [I51.9] 08/31/2015 Edema of lower extremity [R60.0] 07/01/2022 Depressive disorder [F32.A] 07/01/2022 Malrotation of colon [Q43.3] 07/01/2022 Migraine headache [G43.909] 07/01/2022 Pneumonia [J18.9] 07/01/2022 Acute dyspnea [R06.00] 07/01/2022 Smoker's respiratory syndrome [F17.200] 08/31/2015 Strain of shoulder [S46.919A] 01/27/2022 Systolic murmur [R01.1] 07/01/2022 Vomiting [R11.10] 10/11/2021 Uremic encephalopathy [G93.49, N19] 07/01/2022 Pleural effusion, right [J90] 09/02/2022 Encounter Status:Closed by MYAH BOURGEOIS on 09/12/22 [facility] CNPKaryn 09-03-2022 CNPN Telephone ([facility]) -- ZAHRACARLITOS ([id number]) 1975 M NFR Date Time Provider Department 09/03/22 VALERIE PUENTE [facility] During your visit today, we recorded the following information about you: Valerie Puente Sec 09/03/2022 4:04 PM Signed The patient was discharged from [facility] 09-02-22 with an order to schedule with the Heart Failure Clinic. The Clinic reached out to the patient. TeleHealth appointment scheduled 09-12-22. Allergies As of Date: 09/03/2022 Noted Allergy Reaction IODINATED CONTRAST MEDIA 07/13/2019 2 - Rash CYCLOBENZAPRINE 02/05/2017 16 - Unknown DYE 07/04/2015 14 - Other: See Comments Comments: IV contrast makes pt run a high temperature PENICILLINS 05/16/2003 2 - Rash PROCARDIA (NIFEDIPINE) 05/28/2016 7 - Swelling TRAMADOL 02/05/2017 16 - Unknown Date Reviewed: 09/01/2022 Reviewed by: Jana Ochoa RN - Fully Assessed Reason for Visit: Orders [681] Cmt: [facility] order contact/appt Prescriptions as of 09/03/2022 - busPIRone (BUSPAR) 5 mg tablet Take 1 tablet by mouth three times daily. - hydrOXYzine HCl (ATARAX) 25 mg tablet Take 0.5 tablets by mouth three times daily as needed for itching/rash. - lidocaine (LIDODERM) 5 % Apply 1 Patch as directed every 24 hours. - hydrALAZINE (APRESOLINE) 50 mg tablet Take 50 mg by mouth three times daily. - NIFEdipine XL (ADALAT CC) 30 mg 24 hr tablet Take 30 mg by mouth twice daily. - sevelamer carbonate (RENVELA) 800 mg tablet Take 1 tablet by mouth three times daily. - lisinopril (ZESTRIL, PRINIVIL) 5 mg tablet 5 mg. - amLODIPine (NORVASC) 10 mg tablet Take 1 tablet by mouth once daily. - acetaminophen (TYLENOL) 325 mg tablet Take 2 tablets every 4 hours as needed for pain. - calcium acetate (PHOSLO) 667 mg tab Take 667 mg by mouth as directed. takes 4 capsules 3 times a day plus 2 capsules with each snack. - carvedilol (COREG) 25 mg tablet Take 25 mg by mouth twice daily with meals. Problem List As Of Date 09/03/2022 Noted Resolved Kidney replaced by transplant [Z94.0] 02/11/2005 Benign hypertensive kidney disease with chronic*02/11/2005 CKD (chronic kidney disease) stage 4, GFR 15-29*04/26/2013 Kidney transplant failure and rejection [T86.12*05/12/2013 Essential hypertension [I10] 09/10/2013 Anxiety [F41.9] 10/01/2013 Abdominal pain [R10.9] 10/01/2013 MRSA colonization, nasal [Z22.322] 02/28/2014 Anemia of chronic renal failure [N18.9, D63.1] 08/18/2015 Tobacco use disorder [F17.200] 08/18/2015 Chronic obstructive pulmonary disease (HCC) [J4*08/18/2015 Chronic combined systolic and diastolic CHF (co*08/18/2015 Snores [R06.83] 08/18/2015 Uncontrolled daytime somnolence [R40.0] 08/18/2015 Hemodialysis patient ([facility]) [Z99.2] 03/28/2016 Gastroesophageal reflux disease without esophag*10/23/2016 Moderate episode of recurrent major depressive *10/23/2016 Noncompliance with renal dialysis (HCC) [Z91.15]10/23/2016 Noncompliance with treatment [Z91.199] 10/23/2016 Implantable cardioverter-defibrillator (ICD) in*02/12/2017 End stage renal failure on dialysis (HCC) [N18.*02/12/2017 Hypertensive heart disease with congestive hear*02/12/2017 Elevated hemoglobin A1c [R73.09] 10/13/2020 Psychophysiological insomnia [F51.04] 11/14/2020 Mild episode of recurrent major depressive diso*09/04/2021 Recurrent right pleural effusion [J90] 02/12/2022 Abnormal electrocardiography [R94.31] 07/01/2022 Acute respiratory failure with hypoxemia (HCC) *07/01/2022 Anemia [D64.9] 07/01/2022 Cardiomyopathy (HCC) [I42.9] 07/01/2022 Cigarette smoker [F17.210] 02/04/2022 Complication of catheter [T85.9XXA] 07/01/2022 Diarrhea [R19.7] 10/11/2021 Encounter for kidney dialysis [[id number]] 07/01/2022 History of implantable cardiac defibrillator (I*02/03/2015 Headache [R51] 07/01/2022 History of cardiac pacemaker in situ [Z95.0] 08/31/2015 History of end stage renal disease [Z87.448] 07/01/2022 H/O: endocrine disorder [Z86.39] 07/01/2022 Left ventricular systolic dysfunction [I51.9] 08/31/2015 Edema of lower extremity [R60.0] 07/01/2022 Depressive disorder [F32.A] 07/01/2022 Malrotation of colon [Q43.3] 07/01/2022 Migraine headache [G43.909] 07/01/2022 Pneumonia [J18.9] 07/01/2022 Acute dyspnea [R06.00] 07/01/2022 Smoker's respiratory syndrome [F17.200] 08/31/2015 Strain of shoulder [S46.919A] 01/27/2022 Systolic murmur [R01.1] 07/01/2022 Vomiting [R11.10] 10/11/2021 Uremic encephalopathy [G93.49, N19] 07/01/2022 Pleural effusion, right [J90] 09/02/2022 Encounter Status:Closed by VALERIE VEGA on 09/03/22 [facility] CNDSon 09-02-2022 CNDS HNO ID: [id number] Author: Fernando Reddy DO Service: Hospital Medicine Author Type: Physician Type: Discharge Summary Filed: 09/02/2022 2:30 PM Note Text: DISCHARGE SUMMARY PATIENT NAME: Carlitos Sweeney Code Status: Not on file Highest Readmission Risk Score: 20 The 30 day readmissions risk score is derived from an internally validated risk model which evaluates patient level characteristics, utilization history, medication orders and lab results up until the day of discharge. Patients with a score of 40 or above are considered highest risk for readmission. Specific patient level drivers will be listed at the bottom of the summary. Admission Information Admission Information ADMIT DATE: 09/01/2022 DISCHARGE DATE: 09/02/2022 MY DOCTORS AND MEDICAL TEAM: My Main Hospital Doctor: Fernando Reddy DO Primary Care Provider: Tom Conte MD My Medical Team Members: Treatment Team: Attending Provider: Fernando Reddy DO Consulting: Mandeep Figueroa MD Primary Service: SANDRA ALEXANDRA Consulting: Carmela Gabriel MD Consulting: Dania Oconnor MD MY CONDITION AT DISCHARGE: Stable REASON I WAS IN THE HOSPITAL: dyspnea SUMMARY OF WHAT HAPPENED WHILE I WAS IN THE HOSPITAL: Patient was admitted for dyspnea. 46 yo M with hx of ESRD, chronic systolic and diastolic HF who presented with dyspnea and moderate sized R pleural effusion on chest xray. He recently had a pleurX catheter removed on 08/08/22 (per ) for a pleural effusion they were told was form his CHF. Pulmonology consulted and recommend HD, no plans for PleurX catheter this admission. They will order repeat chest xray in 1-2 weeks to reevaluate the effusion. His symptoms have improved and he is stable for discharge after dialysis. He does not urinate, so no indication for lasix. He had some pain at his ICD site prior to admission, but that has since resolved, and he can follow up with his PCP outpatient. He states he has a court date tomorrow at 9:30 that he needs to attend. OTHER PROBLEMS/DIAGNOSIS: Active Problems: * No active hospital problems. * Resolved Problems: * No resolved hospital problems. * OPERATIONS PERFORMED WHILE IN THE HOSPITAL: None IMPORTANT TEST/PROCEDURES: dialysis TEST RESULTS NOT AVAILABLE AT THIS TIME: No pending results Discharge Disposition Home/Self Care Activity When You Leave the Hospital Activity Resume pre-hospital activity Diet Instructions Diet Resume pre-hospital diet Follow Up Appointments Follow-Up Appointment Follow up chest xray in 1 week When: In 1 week Manjit Field MD [phone] [address] [place] [address] PCP Requested Referral Follow-Up Appointment When: In 1 week Tom Conte MD [phone] [address] [facility] [address] PCP Requested Referral Additional Provider to Provider Information: Treatment Team: Attending Provider: Fernando Reddy DO Consulting: Mandeep Figueroa MD Primary Service: SANDRA ALEXANDRA Consulting: Carmela Gabriel MD Consulting: Dania Oconnor MD FOLLOW-UP APPOINTMENTS ALREADY SCHEDULED WITH A [facility] PROVIDER: Future Appointments Date Time Provider Department Center 09/16/2022 2:15 PM Manjit Field MD [facility] 09/26/2022 2:00 PM Lyudmila An APRN.MANUFACTURING COORDINATOR [facility] [employer] Allergen Reactions Iodinated Contrast * Rash Cyclobenzaprine Unknown Dye Other: See Comments IV contrast makes pt run a high temperature Penicillins Rash Procardia [Nifedipi* Swelling Tramadol Unknown DISCHARGE MEDICATION: Current Discharge Medication List CONTINUE these medications which have NOT CHANGED busPIRone (BUSPAR) 5 mg Take 5 mg by mouth three times daily. Qty: 90 tablet Refills: 0 Associated Diagnoses:SONJA (generalized anxiety disorder) hydrOXYzine HCl (ATARAX) 12.5 mg Take 12.5 mg by mouth three times daily as needed for itching/rash. Qty: 30 tablet Refills: 0 Associated Diagnoses:SONJA (generalized anxiety disorder) lidocaine (LIDODERM) 1 Patch Apply 1 Patch as directed every 24 hours. Qty: 10 Patch Refills: 2 hydrALAZINE (APRESOLINE) 50 mg Take 50 mg by mouth three times daily. NIFEdipine XL (ADALAT CC) 30 mg Take 30 mg by mouth twice daily. sevelamer carbonate (RENVELA) 1 tablet Take 1 tablet by mouth three times daily. lisinopril (ZESTRIL) 5 mg 5 mg. amLODIPine (NORVASC) 10 mg Take 10 mg by mouth once daily. Refills: 0 acetaminophen (TYLENOL) 325 mg tablet Take 2 tablets every 4 hours as needed for pain. calcium acetate(phosphat bind) (ELIPHOS) 667 mg Take 667 mg by mouth as directed. takes 4 capsules 3 times a day plus 2 capsules with each snack. carvedilol (COREG) 25 mg Take 25 mg by mouth twice daily with meals. BP 113/69 Pulse 78 Temp 36.7 ?C (98.1 ?F) (Oral) Resp 16 Ht 180.3 cm (5' 11) Wt 69 kg (152 lb 1.9 oz) SpO2 98% BMI 21.22 kg/m? GEN: AANDox3, NAD CARDIO: s1 s2, RRR, no rubs or gallop (more content not included)... Normal [facility] CONSULTon 09-02-2022 CONSULT HNO ID: [id number] Author: Chen Avalos MD Service: Pulmonary Disease Author Type: Physician Type: Consults Filed: 09/02/2022 2:36 PM Note Text: Attending Note I have personally performed a face to face assessment of the patient and have reviewed the KYLEIGH note. I performed a substantive portion of the visit including all aspects of the following. My michael findings include: HISTORY OF PRESENT ILLNESS: Carlitos Sweeney is a 46 year old male, Ht 180.3 cm (5' 11) BMI 21.22 kg/m2, with a history of ESRD on HD every MWF. Reports strict compliance with HD sessions. Reports typically gets 1 to 2 kg off each dialysis session. Has a past medical history significant for Right Aspira tunneled catheter, for recurrent right pleural effusion. First TPC was placed March 2022. Larger TPC placed 07/25/2022. TPC was removed 08/08/2022 due to minimal pleural fluid drainage. Pleural labs January 2022 consistent with transudative effusion. February 14, 2022 pleural fluid cytology negative for malignancy. Consulted today for recurrent right pleural effusion. Currently denies any shortness of breath. OBJECTIVE: 09/01/22 1724 09/01/22 1956 09/02/22 0400 09/02/22 0900 BP: 108/67 109/63 119/69 113/69 Pulse: 77 76 78 78 Resp: 16 17 18 16 Temp: 36.7 ?C (98.1 ?F) 37.1 ?C (98.8 ?F) 36.9 ?C (98.4 ?F) 36.7 ?C (98.1 ?F) TempSrc: Oral Oral Oral Oral SpO2: 96% 97% 98% 98% Weight: Height: PHYSICAL EXAM: PSYCHOLOGIST SOCIAL: Alert and oriented Eyes: PER Neck: Unremarkable; No adenopathy or JVD Cardiovascular: Regular rhythm Respiratory: Clear to auscultation Abdomen: Soft and Nontender Extremities: Edema- No Skin: Abnormalities- No IMPRESSION: -Right pleural effusion -ESRD HD every MWF -Acute on chronic HFrEF -Restrictive lung disease (due to previous pleural effusion) -Tobacco use disorder Plan: - He is asymptomatic from his right pleural effusion. Would continue to diurese per HD. -Encouraged to quit smoking. -Continue medical management of CHF -He has an outpatient pulmonary appointment coming up with Dr. Daniela Field. Instructed to have a chest x-ray a day or 2 prior to that appointment and the need for repeat thoracentesis can be assessed at that appointment. . Other additions or changes: None Signature: Chen Avalos MD Date: 09/02/2022 Time: 2:21 PM [facility] PULMONARY MEDICINE CONSULT NOTE SERVICE DATE: 09/02/2022 SERVICE TIME: 9:17 AM REASON FOR ADMISSION: Chest pain REASON FOR CONSULT: Pleural effusion Subjective CHIEF COMPLAINT: chest pain HISTORY OF PRESENT ILLNESS: Carlitos Sweeney is a 46 year old male with a past medical history of ESRD on IHD s/p kidney transplant x 2 () for congential solitary kidney, HFrEF s/p ICD placement, current smoker. Presented to the [facility] ED on 09/01/2022 evaluation of chest pain at his ICD site. Pain had been worsening over the last several days. ED work-up significant for Cr 9.27, right pleural effusion on chest x-ray, patient was admitted to [facility] for further management. When seen today patient is on room air. He denies shortness of breath, cough, fever, chills, lower extremity edema. Patient recently had a Pleurx catheter removed on 08/08, was placed for recurrent right-sided pleural effusion which was transudate, cytology and culture negative, thought to be secondary to CHF/renal disease. Denies missing any dialysis sessions. States he feels well enough to go home, has not been having dyspnea, able to accomplish all his daily activities without issue. Current smoker, cut down to 2 to 3 cigarettes/day, was smoking a pack a day for about 30 years. 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 Has 2 dogs at home. No known exposure to asbestos. Not on home O2 or inhalers. REVIEW OF SYSTEMS: Constitutional: Denies malaise, fever/chills, night sweats, weight loss. HEENT: Denies headache, rhinorrhea, sore throat RESPIRATORY: See HPI, Denies shortness of breath, cough, wheezing CARDIOVASCULAR: Admits to chest pain, denies palpitations GASTROINTESTINAL: Denies abdominal pain, nausea, vomiting, diarrhea GENITOURINARY: Denies dysuria, frequency or incontinence. MUSCULOSKELETAL: Denies joint pain or swelling, back pain. NEUROLOGIC: Denies focal neurological deficits, dizziness or syncope. SKIN: Denies lesions, rash, and itching. HEMATOLOGIC/LYMPHATIC/IMMU NOLOGIC: Denies easy bruising or swollen glands. ENDOCRINE: Denies cold or heat intolerance, polyuria, polydipsia. The remainder of the ROS were reviewed and negative. Objective PAST MEDICAL HISTORY Diagnosis Date Abdominal pain 10/01/2013 Anemia of chronic renal failure 08/18/2015 Anxiety 10/01/2013 BENIGN HYP RENAL W KID FAIL 02/11/2005 Chronic combined systolic and diastolic CHF (congestive heart failure) (HCC) 08/18/2015 S (more content not included)... Normal [facility] NT-proBNP [facility]-nc 09-02 Natriuretic peptide.B prohormone N-Terminal [Mass/Vol] >82893 High <125 [facility] Comment on above: Order Comment: Speci men Type: BLOOD SPECIMENOrdering Facility: [facility] Address: [address] [place] [id number] Performed By: #### 2 4362-6, 89943-0 ####[facility] LABORATORYCLIA [id number] [place] [address] [place] Renal function 2000 panelon 09-02-2022 Albumin [Mass/Vol] 3.4 g/dL Low 3.9-4.9 [facility] Comment on above: Order Comment: Speci men Type: BLOOD SPECIMENOrdering Facility: [facility] Address: [address] [place] [address] Performed By: #### 2 4362-6, 22617-7 ####[facility] LABORATORYCLIA [id number] [place] [address] [place] Anion gap [Moles/Vol] 14 mmol/L Normal 9-18 [facility] Comment on above: Order Comment: Speci men Type: BLOOD SPECIMENOrdering Facility: [facility] Address: [address] [place] [address] Performed By: #### 2 4362-6, 78354-1 ####[facility] LABORATORYCLIA [id number] [place] [address] [place] Calcium [Mass/Vol] 8.6 mg/dL Normal 8.5-10.2 [facility] Comment on above: Order Comment: Speci men Type: BLOOD SPECIMENOrdering Facility: [facility] Address: [address] [place] [address] Performed By: #### 2 4362-6, 30354-3 ####[facility] LABORATORYCLIA [id number] [place] [address] [place] Chloride [Moles/Vol] 93 mmol/L Low 97-105 [facility] Comment on above: Order Comment: Speci men Type: BLOOD SPECIMENOrdering Facility: [facility] Address: [address] [place] [address] Performed By: #### 2 4362-6, 60389-3 ####[facility] LABORATORYCLIA [id number] [place] [address] [place] CO2 [Moles/Vol] 25 mmol/L Normal 22-30 [facility] Comment on above: Order Comment: Speci men Type: BLOOD SPECIMENOrdering Facility: [facility] Address: [address] [place] [address] Performed By: #### 2 4362-6, 28376-6 ####[facility] LABORATORYCLIA [id number] [place] [address] [place] Creatinine [Mass/Vol] 9.27 mg/dL High 0.73-1.22 [facility] Comment on above: Order Comment: Milad chapman Type: BLOOD SPECIMENOrdering Facility: [facility] Address: [address] [address] Performed By: #### 2 4362-6, 82681-5 ####[facility] HOSPITALIA [id number] [address] ESTIMATED GLOMERULAR FILTRATION RATE 6 mL/min/1.73m??? Low >=60 [facility] Comment on above: Order Comment: Milad chapman Type: BLOOD SPECIMENOrdering Facility: [facility] Address: [address] [place] [address] Result Comment: Deanna mated Glomerular Filtration Rate (eGFR) is calculated using the 2020 CKD-EPI creatinine equation. This equation utilizes serum creatinine, sex, and age as parameters. The creatinine assay has traceable calibration to isotope dilution-mass spectrometry. Refer to KDIGO guidelines for clinical interpretation. In patients with unstable renal function, e.g. those with acute kidney injury, the eGFR may not accurately reflect actual GFR. Performed By: #### 2 4362-6, 31249-1 ####[facility] HOSPITALIA [id number] [address] [place] Glucose [Mass/Vol] 101 mg/dL High 74-99 [facility] Comment on above: Order Comment: Milad chapman Type: BLOOD SPECIMENOrdering Facility: [facility] Address: [address] [place] [address] Result Comment: The [place] Diabetes Association (ADA) provides guidance for cutoff values for fasting glucose and random glucose. The ADA defines fasting as no caloric intake for at least 8 hours. Fasting plasma glucose results between 100 to 125 mg/dL indicate increased risk for diabetes (prediabetes). Fasting plasma glucose results greater than or equal to 126 mg/dL meet the criteria for diagnosis of diabetes. In the absence of unequivocal hyperglycemia, results should be confirmed by repeat testing. In a patient with classic symptoms of hyperglycemia or hyperglycemic crisis, random plasma glucose results greater than or equal to 200 mg/dL meet the criteria for diagnosis of diabetes. Reference: Standards of Medical Care in Diabetes 2016, [place] Diabetes Association. Diabetes Care. 2016.39(Suppl 1). Performed By: #### 2 4362-6, 55615-2 ####[facility] LABORATORYCLIA [id number] [place] [address] [place] Phosphate [Mass/Vol] 4.8 mg/dL Normal 2.7-4.8 [facility] Comment on above: Order Comment: Speci men Type: BLOOD SPECIMENOrdering Facility: [facility] Address: [address] [place] [address] Performed By: #### 2 4362-6, 80815-3 ####[facility] LABORATORYCLIA [id number] [place] [address] [place] Potassium [Moles/Vol] 5.3 mmol/L High 3.7-5.1 [facility] Comment on above: Order Comment: Speci men Type: BLOOD SPECIMENOrdering Facility: [facility] Address: [address] [address] Performed By: #### 2 4362-6, 31016-6 ####[facility] LABORATORYCLIA [id number] [address] [place] Sodium [Moles/Vol] 132 mmol/L Low 136-144 [facility] Comment on above: Order Comment: Speci men Type: BLOOD SPECIMENOrdering Facility: [facility] Address: [address] [address] Performed By: #### 2 4362-6, 18666-9 ####[facility] LABORATORYCLIA [id number] [place] [address] [place] Urea nitrogen [Mass/Vol] 53 mg/dL High 9-24 [facility] Comment on above: Order Comment: Speci men Type: BLOOD SPECIMENOrdering Facility: [facility] Address: [address] [address] Performed By: #### 2 4362-6, 50301-4 ####[facility] LABORATORYCLIA [id number] [place], [place] [address] [place] [address] OF [facility] .Auto Diffon 09-01-2022 Basophil, Absolute 0.1 10 3/mcL Normal 0.0-0.2 Count includes the [facility] ([place]) Comment on above: Performed By: #### R BCP #### [address] [address] Basophils/100 WBC (Bld) 1.2 % Normal 0.0-2.5 [facility] ([place]) Comment on above: Performed By: #### R BCP #### [address] [address] Eosinophil, Absolute 0.2 10 3/mcL Normal 0.0-0.4 [facility] ([place]) Comment on above: Performed By: #### R BCP #### [address] [address] Eosinophils/100 WBC (Bld) 3.4 % Normal 0.0-7.0 [facility] ([place]) Comment on above: Performed By: #### R BCP #### [address] [address] Lymphocyte, Absolute 0.8 10 3/mcL Normal 0.8-3.9 [facility] ([place]) Comment on above: Performed By: #### R BCP #### [address] [address] Lymphocytes/100 WBC (Bld) 12.1 % Normal 10.0-50.0 [facility] ([place]) Comment on above: Performed By: #### R BCP #### [address] [address] Monocyte, Absolute 0.9 10 3/mcL Normal 0.2-1.0 Count includes the [facility] ([place]) Comment on above: Performed By: #### R BCP #### [address] [address] Monocytes/100 WBC (Bld) 12.9 % Normal 1.7-13.0 [facility] ([place]) Comment on above: Performed By: #### R BCP #### [address] [address] Neutrophils/100 WBC (Bld) 70.4 % Normal 37.0-80.0 [facility] ([place]) Comment on above: Performed By: #### R BCP #### [address] [address] .GFRon 09-01-2022 GFR 9 ml/min/1.73sqm Normal [facility] ([place]) Comment on above: Result Comment: GFR Population mean for , Non- Americans Ages 20-29 = 116 mL/min/1.73 sq.m. Ages 30-39 = 107 mL/min/1.73 sq.m. Ages 40-49 = 99 mL/min/1.73 sq.m. Ages 50-59 = 93 mL/min/1.73 sq.m. Ages 60-69 = 85 mL/min/1.73 sq.m. Ages 70+ = 75 mL/min/1.73 sq.m. Chronic Kidney Disease: Less than 60 mL/min/1.73 square meters End Stage Renal Disease: Less than 15 mL/min/1.73 square meters Performed By: #### R BCP #### [address] [address] GFR Non- 8 ml/min/1.73sqm Normal [facility] ([place]) Comment on above: Result Comment: GFR Population mean for , Non- Americans Ages 20-29 = 116 mL/min/1.73 sq.m. Ages 30-39 = 107 mL/min/1.73 sq.m. Ages 40-49 = 99 mL/min/1.73 sq.m. Ages 50-59 = 93 mL/min/1.73 sq.m. Ages 60-69 = 85 mL/min/1.73 sq.m. Ages 70+ = 75 mL/min/1.73 sq.m. Chronic Kidney Disease: Less than 60 mL/min/1.73 square meters End Stage Renal Disease: Less than 15 mL/min/1.73 square meters Performed By: #### R BCP #### [address] [address] .MDWon 09-01-2022 Monocyte Distribution Width 17.04 Normal 0.00-20.00 [facility] ([place]) Comment on above: Result Comment: For ED adult patients suspected of sepsis, MDW<=20.0 does not rule out sepsis or risk of sepsis Performed By: #### R BCP #### [address] [address] .NEUABSon 09-01-2022 Neutrophil, Absolute 4.7 10 3/mcL Normal 2.9-6.2 [facility] ([place]) Comment on above: Performed By: #### R BCP #### [address] [address] ALLIED [facility] [place] 09-01-2022 ALLIED HEALTH HNO ID: [id number] Author: Jayne Valdes RT(R) Service: Radiology Author Type: Mdm Sr Type: Allied Health Filed: 09/01/2022 10:28 AM Note Text: Radiology Service Progress Note PATIENT NAME: Carlitos Sweeney DATE OF SERVICE: September 01, 2022 TIME: 10:28 AM PATIENT IDENTITY VERIFICATION COMPLETED USING TWO (2) IDENTIFIERS: Name and Date of confirmed by patient verbally and Name and Date of confirmed by identification band. FALL SCREENING: Has the patient had 2 falls in the last year or 1 fall with injury or currently using an Ambulatory Assistive Device (Walker, Cane, Wheelchair, Crutches, etc.)? Inpatient: Screened on floor PATIENT GENDER DATA: Male PATIENT RELEVANT IMPLANT DATA REVIEWED: Not Applicable RADIOLOGY DEPARTMENT: General X-ray: Exam(s) Completed: Chest X-Ray PERIPHERAL IV DATA: Not applicable SIGNED BY: Kell Dutton RT(R) September 01, 2022 10:28 AM Normal [facility] BMPon 09-01-2022 BUN/Creatinine Ratio 5 ratio Low 7-27 Count includes the [facility] ([place]) Comment on above: Performed By: #### R BCP #### [address] [address] Calcium [Mass/Vol] 8.1 mg/dL Low 8.4-10.2 [facility] ([place]) Comment on above: Performed By: #### R BCP #### [address] [address] Chloride [Moles/Vol] 96 mmol/L Low 98-107 Count includes the [facility] ([place]) Comment on above: Performed By: #### R BCP #### [address] [address] CO2 [Moles/Vol] 32 mmol/L High 22-29 [facility] ([place]) Comment on above: Performed By: #### R BCP #### [address] [address] Creatinine [Mass/Vol] 7.52 mg/dL High 0.70-1.30 [facility] ([place]) Comment on above: Performed By: #### R BCP #### [address] [place] [address] Electrolyte Balance 7.0 mEq/L Normal 4.0-15.0 [facility] ([place]) Comment on above: Performed By: #### R BCP #### [address] [address] Glucose [Mass/Vol] 102 mg/dL Normal 70-105 [facility] ([place]) Comment on above: Performed By: #### R BCP #### [address] [address] Potassium [Moles/Vol] 4.4 mmol/L Normal 3.5-5.1 [facility] ([place]) Comment on above: Performed By: #### R BCP #### [address] [id number] Sodium [Moles/Vol] 135 mmol/L Low 136-145 [facility] ([place]) Comment on above: Performed By: #### R BCP #### [address] [address] Urea nitrogen [Mass/Vol] 36 mg/dL High 7-18 [facility] ([place]) Comment on above: Performed By: #### R BCP #### [address] [address] CBCon 09-01-2022 Erythrocyte distribution width (RBC) [Ratio] 16.9 % High 11.5-14.5 [facility] ([place]) Comment on above: Performed By: #### R BCP #### [address] [place] [address] Hematocrit (Bld) [Volume fraction] 23.3 % Low 42.0-52.0 [facility] ([place]) Comment on above: Performed By: #### R BCP #### [address] [place] [address] Hgb 7.4 G/dL Low 14.0-18.0 [facility] ([place]) Comment on above: Performed By: #### R BCP #### [address] [place] [address] MCH (RBC) [Entitic mass] 25.7 pg Low 27.0-31.2 [facility] ([place]) Comment on above: Performed By: #### R BCP #### [address] [place] [address] MCHC 31.8 G/dL Normal 31.8-35.4 [facility] ([place]) Comment on above: Performed By: #### R BCP #### [address] [place] [address] MCV (RBC) [Entitic vol] 80.6 fL Normal 80.0-94.0 [facility] ([place]) Comment on above: Performed By: #### R BCP #### [address] [place] [address] Platelet 377 10 3/mcL Normal 130-400 [facility] ([place]) Comment on above: Performed By: #### R BCP #### [address] [place] [address] Platelet mean volume (Bld) [Entitic vol] 6.6 fL Low 7.4-10.4 [facility] ([place]) Comment on above: Performed By: #### R BCP #### [address] [place] [id number] RBC 2.89 10 6/mcL Low 4.04-6.13 [facility] ([place]) Comment on above: Performed By: #### R BCP #### [address] [place] [id number] WBC 6.7 10 3/mcL Normal 4.6-10.8 [facility] ([place]) Comment on above: Performed By: #### R BCP #### [facility] [address] [place] [address] CONSULTon 09-01-2022 CONSULT HNO ID: [id number] Author: Mandeep Figueroa MD Service: Nephrology Author Type: Physician Type: Consults Filed: 09/01/2022 4:58 PM Note Text: [facility] [address] [place] [address] Consult Note Patient's Name: Carlitos Sweeney 3:38 PM 09/01/2022 ATTENDING/ADMITTING PHYSICIAN:Rhianna Wilkins MD Reason for consultation: ESRD. History of Present Ilness: Carlitos Sweeney is a 46-year-old man with past history of ESRD status post failed kidney transplant, COPD, hypertension and secondary hyperparathyroidism. The patient initially presented to [facility] with pain around the ICD insertion site. During the work-up in the ED, the patient was found to have dyspnea and right pleural effusion. The patient used to have a Pleurx catheter for chronic right pleural effusion which was removed about 1 month ago. The patient is admitted to the hospital for treatment of right pleural effusion and heart failure exacerbation. Nephrology is asked see the patient because of dialysis management in ESRD patient. The patient feels better today. There is no chest pain. Dyspnea has improved, and he can lay flat when I visited him. There has been no nausea, vomiting, or diarrhea. PAST MEDICAL HISTORY Diagnosis Date Abdominal pain 10/01/2013 Anemia of chronic renal failure 08/18/2015 Anxiety 10/01/2013 BENIGN HYP RENAL W KID FAIL 02/11/2005 Chronic combined systolic and diastolic CHF (congestive heart failure) ([facility]) 08/18/2015 Seeing cardio in [place] (has pace maker/defibulator) Chronic kidney disease, stage 5 ([facility]) Dialysis M,W,F @ [facility] Chronic obstructive pulmonary disease ([facility]) 08/18/2015 CKD (chronic kidney disease) stage 4, GFR 15-29 ml/min ([facility]) 04/26/[address] 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 End stage renal failure on dialysis ([facility]) 02/12/2017 Essential hypertension 09/10/2013 Gastroesophageal reflux disease without esophagitis 10/23/2016 Hemodialysis patient ([facility]) 03/28/2016 History of cardiac pacemaker in situ 08/31/2015 History of implantable cardiac defibrillator (ICD) 02/03/2015 Hyperkalemia 02/12/2017 Hyperphosphatemia 02/12/2017 Hypertensive heart disease with congestive heart failure (HCC) 02/12/2017 Hypocalcemia 02/12/2017 Implantable cardioverter-defibrillator (ICD) in situ 02/12/2017 Kidney replaced by transplant 05/27/97 Kidney transplant failure and rejection 05/12/2013 Kidney transplant rejection 05/12/2013 Moderate episode of recurrent major depressive disorder (HCC) 10/23/2016 MRSA colonization, nasal 02/28/2014 Presence of combination internal cardiac defibrillator (ICD) and pacemaker Psychophysiological insomnia 11/14/2020 Patient needs substance agreement and Tox screening done at appt on 01/10/2021. If cancels or No Shows the Belsomra will be stopped. Smoker 08/18/2015 Started at age 14 up to 1-1.5 PPD, currently at 1/2 PPD (10/2016), as of 05/2019 less than 1/2 a PPD PAST SURGICAL HISTORY Procedure Laterality Date 2D ECHO (EXEP) 11/02/2020 EF=50%, mod Joshi dysf CHOLECYSTECTOMY INSJ TUNNELED CVC W/O SUBQ PORT/MANAGER TRAINING AND DEVELOPMENT AGE 3 YR/> 01/21/2014 PAST SURGICAL HISTORY OF 05/1997 Renal Transplant, cadaveric PAST SURGICAL HISTORY OF 09/2011 renal transplant PAST SURGICAL HISTORY OF Right cautery right nare for chronic nosebleeds PAST SURGICAL HISTORY OF 01/31/2017 LEFT UPPER ARM AVG FAMILY HISTORY Problem Relation Age of Onset Diabetes Father Heart Father Asthma Brother Heart Brother Diabetes Paternal Uncle Anesthesia Problems No Family History reports that he has been smoking cigarettes. He has a 14.50 pack-year smoking history. He has never used smokeless tobacco. He reports that he does not drink alcohol and does not use drugs. Allergies: Iodinated Contrast Media, Cyclobenzaprine, Dye, Penicillins, Procardia [Nifedipine], and Tramadol Current Medications: Current Facility-Administered Medications Medication Dose Route Frequency carvedilol 25 mg tab(s) (COREG) 25 mg ORAL BID w MEALS busPIRone 5 mg tab(s) (BUSPAR) 5 mg ORAL TID hydrOXYzine HCl 12.5 mg tab(s) (ATARAX) 12.5 mg ORAL TID PRN lisinopril 5 mg tab(s) (ZESTRIL) 5 mg ORAL DAILY hydrALAZINE 50 mg tab(s) (APRESOLINE) 50 mg ORAL TID amLODIPine 10 mg tab(s) (NORVASC) 10 mg ORAL DAILY NIFEdipine ER 30 mg tab(s) (PROCARDIA XL) 30 mg ORAL BID calcium acetate 667 mg tab(s) (CALPHRON) 667 mg ORAL As Directed sevelamer carbonate 800 mg tab(s) (RENVELA) 800 mg ORAL TID lidocaine 4 % 1 Patch (SALONPAS) 1 Patch TRANSDERMAL DAILY lidocaine patch - REMOVE OTHER AT BEDTIME Review of Systems: 10 ROS negative other than stated above Physical exam: BP 153/94 Pulse 85 Temp 36.8 ?C (98.2 ?F) (Oral) Resp 18 Ht 180.3 cm (5' 11) Wt 69 kg (152 lb 1.9 oz) SpO2 96% BMI 21.22 kg/m? General: AAO x 3, speaking in full sentences, no access (more content not included)... Normal [facility] [id number] 09-01-2022 SARS-CoV-2 (COVID-19) RNA JAMILAH+probe Ql (Unsp spec) Negative Normal Negative [facility] ([place]) Comment on above: Performed By: #### C OVD19 ####[id number] [place], [place] [address] SARS-CoV-2 (COVID-19) RNA JAMILAH+probe Ql (Unsp spec) Normal [facility] ([place]) Comment on above: Result Comment: Nega tive results do not preclude SARS-CoV-2 infection and should not be used as the sole basis for patient management decisions. Negative results must be combined with clinical observations, patient history, and epidemiological information. There is a risk of false negative values resulting from improperly collected, transported, or handled specimens. There is a risk of false negative values due to the presence of sequence variants in the pathogen targets of the assay, procedural errors, amplification inhibitors in specimens, or inadequate numbers of organisms for amplification. BARRIE SARS-CoV-2 Assay is a Real-Time reverse-transcriptase polymerase chain reaction (RT-PCR) based qualitative in vitro diagnostic test intended for the qualitative detection of nucleic acid from the SARS-CoV-2 in nasopharyngeal swab specimens collected from individuals suspected of COVID-19 by their healthcare provider. Testing is limited to laboratories certified under the Clinical Laboratory Improvement Amendments of 1988 (CLIA), 42 U.S.C. ?263a, to perform moderate and high complexity tests. COVID-19 Int Performed By: #### C OVD19 ####[address] [place], [place] [address] CT THORAX W/O CONTRASTon CT THORAX W/O CONTRAST ORIGINAL EXAMINATION: CT OF THE CHEST WITHOUT CONTRAST 08/31/2022 11:34 pm TECHNIQUE: CT of the chest was performed without the administration of intravenous contrast. Multiplanar reformatted images are provided for review. Automated exposure control, iterative reconstruction, and/or weight based adjustment of the mA/kV was utilized to reduce the radiation dose to as low as reasonably achievable. COMPARISON: Chest x-ray of the same date. HISTORY: ORDERING SYSTEM PROVIDED HISTORY: Reason for Exam: pneumonia, pleural effusion on CXR Patient reported thoracentesis 6 weeks ago at [facility]. FINDINGS: Evaluation of the lungs demonstrates dense consolidations of the basilar aspects of all 3 right lung lobes. There is associated atelectasis seen of the right middle lobe. Furthermore, there is demonstration of a pleural effusion with locules of air within highly concerning for empyema or possible pulmonary abscess. The empyema appears to measure approximately 10.5 x 5.4 x 5.2 cm in size. This is difficult to evaluate due to lack of IV contrast. The left lung demonstrates left basilar atelectasis and is otherwise clear. No evidence of pneumothorax. The heart is moderately enlarged status post left-sided AICD device placement. Coronary artery calcifications are appreciated. The main pulmonary artery is borderline in size measuring 3.2 cm indicative of pulmonary arterial hypertension. Lack of IV contrast limits evaluation of lymphadenopathy. Within this limitation there appears to be a enlarged subcarinal lymph node measuring 1.1 cm. Additional borderline right paratracheal lymph nodes are noted. These are likely reactive in nature. Limited evaluation of the upper abdomen demonstrates left renal atrophy. No acute fracture or aggressive osseous lesion is seen of the bony structures. IMPRESSION: Dense consolidations seen of the right lung as described above consistent with pneumonia. Findings on the basis of empyema versus large right basilar pulmonary abscess with evaluation limited due to lack of IV contrast. This measures approximately 10.5 x 5.4 x 5.2 cm. Reactive mediastinal lymphadenopathy. Borderline dilated main pulmonary artery indicative of pulmonary arterial hypertension. Coronary artery calcifications. Interpreted by: Jean Carlos Turner MD Preliminary Report By: Jean Carlos Turner MD Electronically signed By Jean Carlos Turner MD Dictated Date: 08/31/2022 11:36:24 PM Prelim Date: 08/31/2022 11:47:27 PM Sign Date: 08/31/2022 11:47:27 PM Ordering Provider: RAMIRO Street [facility] ([place]) HISTORY PHYSICALon HISTORY PHYSICAL HNO ID: [id number] Author: Rhianna Wilkins MD Service: Hospital Medicine Author Type: Physician Type: HANDP Filed: 09/01/2022 2:43 PM Note Text: DEPARTMENT OF INTERNAL MEDICINE HISTORY AND PHYSICAL EXAM SERVICE DATE: 09/01/2022 SERVICE TIME: 9a Primary Care Physician: Tom Conte MD Subjective CHIEF COMPLAINT: Chest Pain HPI: This is a 46 year old male who presents with chest pain around his ICD area that brought him to the [facility] ER. Patient noticed that he had been having some SOb with exertion for the past weeks. Patient had previously had a pleurex cath place on his right side for a pleural effusion in March 2022, which he said was from his CHF. THe pleurex cath was removed a month ago after the effusion improved. Work up in the ED shows a recollection of the right pleural effusion. Now patient is no longer with pain at his ICD site, the device did not fire. No fever or chills. No cough. No nvd. PAST MEDICAL HISTORY Diagnosis Date Abdominal pain 10/01/2013 Anemia of chronic renal failure 08/18/2015 Anxiety 10/01/2013 BENIGN HYP RENAL W KID FAIL 02/11/2005 Chronic combined systolic and diastolic CHF (congestive heart failure) (HCC) 08/18/2015 Seeing cardio in [place] (has pace maker/defibulator) Chronic kidney disease, stage 5 (HCC) Dialysis M,W,F @ [facility] Chronic obstructive pulmonary disease ([facility]) 08/18/2015 CKD (chronic kidney disease) stage 4, GFR 15-29 ml/min ([facility]) 04/26/[address] 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 End stage renal failure on dialysis ([facility]) 02/12/2017 Essential hypertension 09/10/2013 Gastroesophageal reflux disease without esophagitis 10/23/2016 Hemodialysis patient ([facility]) 03/28/2016 History of cardiac pacemaker in situ 08/31/2015 History of implantable cardiac defibrillator (ICD) 02/03/2015 Hyperkalemia 02/12/2017 Hyperphosphatemia 02/12/2017 Hypertensive heart disease with congestive heart failure ([facility]) 02/12/2017 Hypocalcemia 02/12/2017 Implantable cardioverter-defibrillator (ICD) in situ 02/12/2017 Kidney replaced by transplant 05/27/97 Kidney transplant failure and rejection 05/12/2013 Kidney transplant rejection 05/12/2013 Moderate episode of recurrent major depressive disorder ([facility]) 10/23/2016 MRSA colonization, nasal 02/28/2014 Presence of combination internal cardiac defibrillator (ICD) and pacemaker Psychophysiological insomnia 11/14/2020 Patient needs substance agreement and Tox screening done at appt on 01/10/2021. If cancels or No Shows the Belsomra will be stopped. Smoker 08/18/2015 Started at age 14 up to 1-1.5 PPD, currently at 1/2 PPD (10/2016), as of 05/2019 less than 1/2 a PPD PAST SURGICAL HISTORY Procedure Laterality Date 2D ECHO (EXEP) 11/02/2020 EF=50%, mod Joshi dysf CHOLECYSTECTOMY INSJ TUNNELED CVC W/O SUBQ PORT/MANAGER TRAINING AND DEVELOPMENT AGE 3 YR/> 01/21/2014 PAST SURGICAL HISTORY OF 05/1997 Renal Transplant, cadaveric PAST SURGICAL HISTORY OF 09/2011 renal transplant PAST SURGICAL HISTORY OF Right cautery right nare for chronic nosebleeds PAST SURGICAL HISTORY OF 01/31/2017 LEFT UPPER ARM AVG FAMILY HISTORY Problem Relation Age of Onset Diabetes Father Heart Father Asthma Brother Heart Brother Diabetes Paternal Uncle Anesthesia Problems No Family History Social History Tobacco Use Smoking status: Every Day Packs/day: 0.50 Years: 29.00 Pack years: 14.50 Types: Cigarettes Smokeless tobacco: Never Tobacco comments: off and on, less than half of pack Vaping Use Vaping Use: Never used Substance Use Topics Alcohol use: No Drug use: No MEDICATIONS: Reviewed ALLERGIES Allergen Reactions Iodinated Contrast * Rash Cyclobenzaprine Unknown Dye Other: See Comments IV contrast makes pt run a high temperature Penicillins Rash Procardia [Nifedipi* Swelling Tramadol Unknown REVIEW OF SYSTEM: All systems were reviewed and negative, except for what is mentioned in the HPI. Objective PHYSICAL EXAM: BP 153/94 Pulse 85 Temp (Src) 98.2 (Oral) Resp 18 Ht 5' 11 (1.80m) Wt 152 lb 1.9 oz (69.0kg) SpO2 96% BMI 21.23 kg/(m2). O2 Therapy: Room Air GENERAL: Alert, no distress, cooperative SKIN: Skin color, texture, turgor normal. No rashes or lesions. HEAD/SINUSES: No significant findings LUNGS: decrease BS R>L CARDIAC: Normal S1 and S2; no rubs, murmurs, or gallops ABDOMEN: Abdomen soft, non-tender, BS normal, No masses or organomegaly EXTREMITIES: Extremities normal, no deformities, edema, clubbing or skin discoloration. Good capillary refill., No ulcers NEURO: Gait normal. Reflexes normal and symmetric. Sensation grossly intact, Cranial nerves II-XII intact PULSES: 2+ radial, 2+ carotid DATA: Diagnostic tests reviewed for today's visit: MEDICATIONS: Current Facility-Administered Medications Medication Dose Route Frequency carvedilol 25 mg tab(s) (COREG) 25 mg ORAL BID w MEALS (more content not included)... Normal [facility] LABORATORYOrdered By: SYSTEM SYSTEM on 09-01-2022 Troponin I.cardiac DL <= 0.01 ng/mL [Mass/Vol] 35.9 ng/L Invalid Interpretation Code 0.0 - 76.2 ng/L AO ADM SS LABORATORYOrdered By: Diane Benjamin on 09-01-2022 SARS-CoV-2 (COVID-19) RNA JAMILAH+probe Ql (Resp) Negative results do not preclude SARS-CoV-2 infection and should not be used as the sole basis for patient management decisions. Negative results must be combined with clinical observations, patient history, and epidemiological information.There is a risk of false negative values resulting from improperly collected, transported, or handled specimens.There is a risk of false negative values due to the presence of sequence variants in the pathogen targets of the assay, procedural errors, amplification inhibitors in specimens, or inadequate numbers of organisms for amplification.BARRIE SARS-CoV-2 Assay is a Real-Time reverse-transcriptase polymerase chain reaction (RT-PCR) based qualitative in vitro diagnostic test intended for the qualitative detection of nucleic acid from the SARS-CoV-2 in nasopharyngeal swab specimens collected from individuals suspected of COVID-19 by their healthcare provider. Testing is limited to laboratories certified under the Clinical Laboratory Improvement Amendments of 1988 (CLIA), 42 U.S.C. 263a, to perform moderate and high complexity tests. Invalid Interpretation Code AO Auto Urine SS No Panel Informationon 09-01 Microscopic examination of blood, culture Culture has been received in lab and is no growth to date. Routine cultures are held for 5 days. [facility] Work Phone: [facility] 09-01-2022 Troponin I High Sensitivity 35.9 ng/L Normal 0.0-76.2 [facility] ([place]) Comment on above: Performed By: #### T [facility] #### [facility] [address] [place], [place] [address] Troponin I High Sensitivity 33.3 ng/L Normal 0.0-76.2 [facility] ([place]) Comment on above: Performed By: #### R [facility] #### [facility] [address] [place] [id number] XR CHEST 1V FRONTALon 2022 XR CHEST 1V FRONTAL * * *Final Report* * * DATE OF EXAM: Sep 01 2022 10:27AM [id number] - XR CHEST 1V FRONTAL / PROCEDURE REASON: Shortness of breath * * * * Physician Interpretation * * * * EXAMINATION: CHEST RADIOGRAPH (SINGLE VIEW AP OR PA) CLINICAL HISTORY: Shortness of breath MQ: XC1_5 Comparison: Previous studies with the most recent performed 07/15/2022 RESULT: Lines, tubes, and devices: Left-sided AICD again noted. Interval removal of the previously seen right-sided pleural drain. Lungs and pleura: Moderate right-sided pleural effusion, increased in volume from previous. This could be at least partially loculated laterally. Parenchymal changes at the right lung base compatible with pneumonia or atelectasis. Cardiomediastinal silhouette: Stable cardiac size. Other: None IMPRESSION: Enlarging right pleural effusion. Basilar atelectasis or pneumonia. Right lower lobe lung parenchyma is suboptimally evaluated due to the effusion. Fishing Rod Marker: HENRY Transcribe Date/Time: Sep 01 2022 1:42P Dictated by : TAL OSPINA MD This examination was interpreted and the report reviewed and electronically signed by: ATL OSPINA MD on Sep 01 2022 1:43PM EST [id number] Normal [facility] XR CHEST 2 VIEWSon 3 XR CHEST 2 VIEWS ORIGINAL EXAMINATION: TWO XRAY VIEWS OF THE CHEST 08/31/2022 10:29 pm COMPARISON: Chest x-ray 06/15/2021, 08/23/2018.. HISTORY: ORDERING SYSTEM PROVIDED HISTORY: Reason for Exam: Chest Pain for 1 hour FINDINGS: Left dual lead AICD is noted with leads in unchanged position. A vascular stent is noted within the region of the left subclavian vessels. The cardiomediastinal silhouette is stable. There is a small loculated right pleural effusion with adjacent right basilar consolidation. There is mild bilateral interstitial prominence which is likely chronic in etiology. The osseous structures appear intact. IMPRESSION: Right basilar pneumonia with small right loculated appearing pleural effusion. Bilateral interstitial prominence is most likely chronic. Superimposed edema or atypical infection is not excluded. I have personally reviewed the images of this examination and agree with the resident's findings and interpretation. Interpreted by: Jean Carlos Turner MD Preliminary Report By: Bernabe Chávez Electronically signed By Jean Carlos Turner MD Dictated Date: 08/31/2022 10:32:02 PM Prelim Date: 08/31/2022 10:36:14 PM Sign Date: 08/31/2022 10:38:31 PM Ordering Provider: RAMIRO MARTIN [facility] ([place]) LABORATORYOrdered By: Diane Benjamin on 08-31-2022 Basophil, Absolute 0.1 103/mcL Invalid Interpretation Code 0.0 - 0.2 10^3/mcL AO Workflow SS Basophils/100 WBC (Bld) 1.2 % Invalid Interpretation Code 0.0 - 2.5 % AO Workflow SS Eosinophil, Absolute 0.2 103/mcL Invalid Interpretation Code 0.0 - 0.4 10^3/mcL AO Workflow SS Eosinophils/100 WBC (Bld) 3.4 % Invalid Interpretation Code 0.0 - 7.0 % AO Workflow SS Erythrocyte distribution width (RBC) [Ratio] 16.9 % Invalid Interpretation Code 11.5 - 14.5 % AO Workflow SS Hematocrit (Bld) [Volume fraction] 23.3 % Invalid Interpretation Code 42.0 - 52.0 % AO Workflow SS Hemoglobin (Bld) [Mass/Vol] 7.4 G/dL Invalid Interpretation Code 14.0 - 18.0 G/dL AO Workflow SS Lymphocyte, Absolute 0.8 103/mcL Invalid Interpretation Code 0.8 - 3.9 10^3/mcL AO Workflow SS Lymphocytes/100 WBC (Bld) 12.1 % Invalid Interpretation Code 10.0 - 50.0 % AO Workflow SS MCH (RBC) [Entitic mass] 25.7 pg Invalid Interpretation Code 27.0 - 31.2 pg AO Workflow SS MCHC 31.8 G/dL Invalid Interpretation Code 31.8 - 35.4 G/dL AO Workflow SS MCV (RBC) [Entitic vol] 80.6 fL Invalid Interpretation Code 80.0 - 94.0 fL AO Workflow SS Monocyte distribution width Auto (Bld) [Entitic vol] 17.04 Invalid Interpretation Code 0.00 - 20.00 AO Workflow SS Comment on above: Result Comment: For ED adult patients suspected of sepsis, MDW<=20.0 does not rule out sepsis or risk of sepsis Monocyte, Absolute 0.9 103/mcL Invalid Interpretation Code 0.2 - 1.0 10^3/mcL AO Workflow SS Monocytes/100 WBC (Bld) 12.9 % Invalid Interpretation Code 1.7 - 13.0 % AO Workflow SS Neutrophil, Absolute 4.7 103/mcL Invalid Interpretation Code 2.9 - 6.2 10^3/mcL AO Workflow SS Neutrophils/100 WBC (Bld) 70.4 % Invalid Interpretation Code 37.0 - 80.0 % AO Workflow SS Platelet mean volume (Bld) [Entitic vol] 6.6 fL Invalid Interpretation Code 7.4 - 10.4 fL AO Workflow SS Platelets (Bld) [#/Vol] 377 103/mcL Invalid Interpretation Code 130 - 400 10^3/mcL AO Workflow SS RBC (Bld) [#/Vol] 2.89 106/mcL Invalid Interpretation Code 4.04 - 6.13 10^6/mcL AO Workflow SS WBC (Bld) [#/Vol] 6.7 103/mcL Invalid Interpretation Code 4.6 - 10.8 10^3/mcL AO Workflow SS LABORATORYOrdered By: SYSTEM SYSTEM on 08-31-2022 Calcium [Mass/Vol] 8.1 mg/dL Invalid Interpretation Code 8.4 - 10.2 mg/dL AO ADM SS Chloride [Moles/Vol] 96 mmol/L Invalid Interpretation Code 98 - 107 mmol/L AO ADM SS CO2 [Moles/Vol] 32 mmol/L Invalid Interpretation Code 22 - 29 mmol/L AO ADM SS Creatinine [Mass/Vol] 7.52 mg/dL Invalid Interpretation Code 0.70 - 1.30 mg/dL AO ADM SS Electrolyte Balance 7.0 mEq/L Invalid Interpretation Code 4.0 - 15.0 mEq/L AO ADM SS GFR 9 ml/min/1.73sqm Invalid Interpretation Code AO Chemistry S GFR Non- 8 ml/min/1.73sqm Invalid Interpretation Code AO Chemistry S Glucose [Mass/Vol] 102 mg/dL Invalid Interpretation Code 70 - 105 mg/dL AO ADM SS Potassium [Moles/Vol] 4.4 mmol/L Invalid Interpretation Code 3.5 - 5.1 mmol/L AO ADM SS Sodium [Moles/Vol] 135 mmol/L Invalid Interpretation Code 136 - 145 mmol/L AO ADM SS Troponin I.cardiac DL <= 0.01 ng/mL [Mass/Vol] 33.3 ng/L Invalid Interpretation Code 0.0 - 76.2 ng/L AO ADM SS Urea nitrogen [Mass/Vol] 36 mg/dL Invalid Interpretation Code 7 - 18 mg/dL AO ADM SS Urea nitrogen/Creatinine [Mass ratio] 5 ratio Invalid Interpretation Code 7 - 27 ratio AO ADM SS XR HAND MINIMUM 3 VIEWS RIGH Ton 08-20-2022 XR HAND MINIMUM 3 VIEWS RIGHT ORIGINAL EXAMINATION: THREE XRAY VIEWS OF THE RIGHT HAND08/20/2022 4:55 pm COMPARISON: 12/07/2018 HISTORY: ORDERING SYSTEM PROVIDED HISTORY: Reason for Exam: pain FINDINGS: No acute fracture. Mild dorsal displacement of the ulna. Mild overlying soft tissue swelling is present. Subtle remote deformity of the distal 5th metacarpal consistent with previous fracture. No radiopaque foreign body. IMPRESSION: 1. Mild dorsal displacement of the ulna appreciated on lateral view is probably positional. Clinical correlation with symptoms and signs is recommended and if malalignment is suspected, orthopedic consult and/or nonemergent MRI may be considered for further evaluation. 2. No acute fracture identified. I have personally reviewed the images of this examination and agree with the resident's findings and interpretation. Interpreted by: Bernabe Long Preliminary Report By: Napoleon Turcios Electronically signed By Bernabe Long Dictated Date: 08/20/2022 4:59:04 PM Prelim Date: 08/20/2022 5:03:40 PM Sign Date: 08/20/2022 5:20:31 PM Ordering Provider: RAMIRO MARTIN [facility] ([place]) XR FOOT MINIMUM 3 VIEWS [facility] 08-15-2022 XR FOOT MINIMUM 3 VIEWS RIGHT ORIGINAL EXAMINATION: THREE XRAY VIEWS OF THE RIGHT FOOT 08/15/2022 7:46 pm COMPARISON: Right ankle radiographs 02/07/2021. right foot radiographs 10/23/2020 HISTORY: ORDERING SYSTEM PROVIDED HISTORY: Reason for Exam: foot pain FINDINGS: No visible acute fracture or dislocation. Incidental note is made of an os perineum. Normal osseous mineralization. No visible aggressive osseous lesions. There is no significant arthrosis present. Normal midfoot alignment. No tibiotalar effusion. Minimal atherosclerosis. No visible radiopaque foreign body. IMPRESSION: 1. No acute fracture or dislocation. Interpreted by: Jaycob Schwartz DO Preliminary Report By: Jaycob Schwartz DO Electronically signed By Jaycob Schwartz DO Dictated Date: 08/15/2022 7:57:18 PM Prelim Date: 08/15/2022 7:58:22 PM Sign Date: 08/15/2022 7:58:22 PM Ordering Provider: JEFF SOUZA [facility] ([place]) BRIEF OP NOTon 08-08-2022 BRIEF OP NOT HNO ID: [id number] Author: Fernando Fitzpatrick DO Service: Interventional Radiology Author Type: Physician Type: Brief Op Note Filed: 08/08/2022 8:52 AM Note Text: BRIEF OPERATIVE / PROCEDURE NOTE LOG ID: [id number] SURGERY/PROCEDURE DATE: 08/08/2022 INCISION/PROCEDURE START TIME: 8:27 AM INCISION CLOSE/PROCEDURE END TIME: 8:41 AM SURGEON(S)/PROCEDURALIST(S ) AND SILK SCREEN ETCHER(S): Surgeon(s) and Role: * Fernanod Fitzpatrick DO - Primary No Additional Staff SURGERY/PROCEDURE(S): Tunneled pleural drain removal ANESTHESIA: Local FINDINGS: Initial radiograph showed small loculated right pleural effusion, not being drained by tunneled pleural drain. Discussion was had with patient, and despite small fluid collection decision was made to remove the tube. Right Aspira drain subsequently removed without issue. ESTIMATED BLOOD LOSS: 0 ml SPECIMENS: None COMPLICATIONS: None PRE-OP/PRE-PROCEDURE DIAGNOSIS: Pleural effusion POST-OP/POST-PROCEDURE DIAGNOSIS: Same as Preop SIGNATURE: Fernando Fitzpatrick DO PATIENT NAME: Carlitos Sweeney DATE: August 08, 2022 TIME: 8:49 AM Normal [facility] IR REM TUNNEL INTRAPERI CATH on 08-08-2022 IR REM TUNNEL INTRAPERI CATH * * *Final Report* * * DATE OF EXAM: Aug 08 2022 8:46AM [place] [id number] - IR REM TUNNEL INTRAPERI CATH / PROCEDURE REASON: effusion * * * * Physician Interpretation * * * * PROCEDURE: TUNNELED PLEURAL CATHETER REMOVAL Procedural Personnel Attending physician(s): Fernando Fitzpatrick D.O. Fellow physician(s): None Resident physician(s): None Advanced practice provider(s): None Medical Student(s): None Pre-procedure diagnosis: Pleural effusion Post-procedure diagnosis: Same Indication: Catheter no longer needed Additional clinical history: Patient with history of recurrent pleural effusion with tunneled pleural drainage catheter placed on 04/04/2022 requiring subsequent revision on 06/14/2022 and 06/25/2022. Patient is having pain at the site of the tunneled pleural catheter and is no longer having output from the drain, removal was requested. PROCEDURE SUMMARY: - Tunneled central venous catheter removal - Additional procedure(s): Thoracentesis PROCEDURE DETAILS: Pre-procedure Consent: Risks, benefits, treatment options, potential complications and personnel to be involved were discussed (including the risks of radiation exposure, contrast and anesthesia administration, and any equipment needed for the procedure to ensure best possible outcome) with the patient and all questions were answered and consent was obtained prior to procedure. Transfusion of blood products: No Medication reconciliation: The patient's medications and allergies were reviewed in the electronic medical record and reconciled to the proposed procedure/treatment. La-procedure discussion: The appropriate elements of the pre-procedure discussion, safety check list and sign-out were performed. Time out: A time out was performed immediately prior to procedure start with the nursing and interventional team, correctly identifying the name, date of , procedure, anatomy (including marking of site and side if applicable), patient position, procedure consent form, relevant diagnostic and radiology test results, antibiotic administration if applicable, safety precautions, and procedure-specific equipment needs. Start of procedure: 826 End of procedure: 840 Patient position: Supine Preparation: The site was prepared and draped using all elements of maximal sterile barrier technique including sterile gloves, sterile gown, cap, mask, large sterile sheet, hand hygiene and cutaneous antisepsis. Contrast Contrast agent: None Contrast volume (mL): 0 Image Guidance Fluoroscopic guidance. FLUOROSCOPIC RADIATION SUMMARY: Plane A, Air Kerma: 1.0 mGy Dose Area Product (DAP): Fluoro Time: 0:06 min:sec Radiation dose exceed 5 Gy: No If radiation dose exceeded 5 Gy, was counseling and instructional brochure provided: N/A Anesthesia/sedation Level of anesthesia/sedation: No sedation Anesthesia/sedation administered by: Not applicable Total intra-service sedation time (minutes): 0 Local anesthesia: 1 % lidocaine Preparation The site was prepared and draped using maximal sterile barrier technique including cutaneous antisepsis. Thoracentesis Indwelling right tunneled pleural drainage catheter was attached to suction and approximately 100 mL serous fluid was drained prior to removal. Catheter removal Local anesthesia was administered. The suture holding the catheter was severed and catheter was removed with gentle traction without any dissection. Closure Hemostasis was achieved with manual compression. Sterile dressing(s) applied. Additional Details Additional description of procedure: None Equipment details: None Number and Type of Removed Specimens: : N/A Estimated blood loss (mL): Less than 10 Standardized report: [email or web address] [id number] Complications There were no immediate complications and no other complications. Conclusion The patient was comfortable and was transferred to the recovery room in stable condition. The procedure was performed by the: attending radiologist, without an document control assistant. The attending radiologist performed the following procedural activities: Entire procedure IMPRESSION: 1. RIGHT THORACENTESIS WITH 100ML SEROUS FLUID DRAINED THROUGH INDWELLING PLEURAL CATHETER PRIOR TO REMOVAL. 2. REMOVAL OF RIGHT-SIDED TUNNELED CHEST DRAINAGE CATHETER. Plan: Please re-consult interventional radiology if new catheter placement is desired. Attestation Signer name: Fernando Fitzpatrick DO I attest that I was present for the entire procedure. I reviewed the stored images and agree with the report as written. Fishing Rod Marker: PSCB Transcribe Date/Time: Aug 12 2022 1:46P Dictated by : FERNANDO FITZPATRICK DO This examination was interpreted and the report reviewed and electronically signed by: FERNANDO FITZPATRICK DO on Aug 12 2022 1:50PM EST [id number] Normal [facility] NURSING PROGon 08-08-2022 NURSING PROG HNO ID: [id number] Author: Harini Araujo RN Service: Interventional Radiology Author Type: Registered Nurse Type: Nursing Progress Note Filed: 08/08/2022 8:26 AM Note Text: Aspira connected to wall suction per Dr Fitzpatrick. 100 cc fluid drained. Patient tolerated well. Normal [facility] PT EDon 08-08-2022 PT ED HNO ID: [id number] Author: Harini Araujo RN Service: Interventional Radiology Author Type: Registered Nurse Type: Patient Education Filed: 08/08/2022 8:17 AM Note Text: At home instructions reviewed with patient and understanding verbalized. Written copy provided for discharge. Normal [facility] Absolute lymphocyte countOrd ered By: Dr. Ha on 07-30-2022 Lymphocytes Auto (Unsp spec) [#/Vol] 0.70 10*3/uL 0.83-4.51 [facility] Basophil percentageOrdered B y: Dr. Ha on 07-30-2022 Basophils/100 WBC (Bld) 0.4 % 0-1 [facility] Bilirubin [Mass/Vol] 0.50 mg/dL 0.20-1.00 [facility] Comment on above: For patients on eltr ombopag therapy, use of Dimension Raymond TBIL is not recommended. Chloride [Moles/Vol] 93 mmol/L 98-107 [facility] Eosinophils/100 WBC (Bld) 0.6 % 0-5 [facility] Glucose [Mass/Vol] 99 mg/dL 74-106 [facility] Neutrophils (Bld) [#/Vol] 6.2 10*3/uL 2.0-7.7 [facility] Neutrophils/100 WBC (Bld) 77.1 % 47-70 [facility] Potassium [Moles/Vol] 4.8 mmol/L 3.5-5.1 [facility] Protein [Mass/Vol] 7.6 g/dL 6.4-8.2 [facility] Sodium [Moles/Vol] 132 mmol/L 136-145 [facility] WBC (Bld) [#/Vol] 8.1 10*3/uL 4.4-11.0 [facility] Blood erythrocytes count (nu mber/volume)Ordered By: Dr. Ha on 07-30-2022 RBC (Bld) [#/Vol] 3.21 10*6/uL 4.6-6.2 [facility] Blood hemoglobin measurement (mass/volume)Ordered By: Dr. Ha on 07-30-2022 Hemoglobin (Bld) [Mass/Vol] 8.5 g/dL 13.0-16.5 [facility] Blood lymphocytes/100 leukoc ytesOrdered By: Dr. Ha on 07-30-2022 Lymphocytes/100 WBC (Bld) 8.6 % 19-41 [facility] Blood monocytes/100 leukocyt esOrdered By: Dr. Ha on 07-30-2022 Monocytes/100 WBC (Bld) 12.8 % 0-10 [facility] Blood platelet mean volumeOr dered By: Dr. Ha on 07-30-2022 Platelet mean volume (Bld) [Entitic vol] 8.5 fL 6.2-12.0 [facility] Determination of erythrocyte mean corpuscular volume (MCV)Ordered By: Dr. Ha on 07-30-2022 MCV (RBC) [Entitic vol] 84.4 fL 80-94 [facility] Hematocrit Auto (Bld) [Volum e fraction]Ordered By: Dr. Ha on 07-30-2022 Hematocrit (Bld) [Volume fraction] 27.1 % 40-54 [facility] Influenza virus A and B and SARS-CoV-2 (COVID-19) Ag panel - Upper respiratory specimOrdered By: Dr. Ha on 07-30-2022 SARS-CoV-2 (COVID-19) RNA JAMILAH+probe Ql (Resp) [facility] Laboratory - Chemistry and C hemistry - challengeOrdered By: Dr. Ha on 07-30-2022 ALP [Catalytic activity/Vol] 95 U/L 45-117 [facility] ALT [Catalytic activity/Vol] 20 U/L 16-61 [facility] CO2 [Moles/Vol] 29.0 mmol/L 21.0-32.0 [facility] Globulin (S) [Mass/Vol] 5.1 g/dL 2.2-4.2 [facility] Urea nitrogen/Creatinine [Mass ratio] 5.3 mg/mg 10-20 [facility] - Hematology and Cell countsOrdered By: Dr. Ha on 07-30-2022 Erythrocyte distribution width (RBC) [Entitic vol] 46.5 fL 35.1-43.9 [facility] Erythrocyte distribution width (RBC) [Ratio] 15.1 % 11.6-14.6 [facility] Immature granulocytes/100 WBC (Bld) 0.500 % 0.0-0.9 [facility] Comment on above: IG% - Immature Granu locytes (promyelocytes, myelocytes and metamyelocytes) > 1% indicates that a LEFT SHIFT is Present. MCH (RBC) [Entitic mass] 26.5 pg 27.0-32.0 [facility] Nucleated RBC/100 WBC (Bld) [Ratio] 0 % 0-5 [facility] MCHC Auto (RBC) [Mass/Vol]Or dered By: Dr. Ha on 07-30-2022 MCHC (RBC) [Mass/Vol] 31.4 g/dL 32-36 [facility] No Panel InformationOrdered By: Dr. Ha on 07-30-2022 Estimated Creatinine Clearance Calc 8.56 ml/min [facility] Estimated GFR (MDRD) Amer 7 mL/min >60 [facility] Comment on above: GFR Calc Estimated GFR (MDRD) Non-Af Amer 6 mL/min >60 [facility] Comment on above: Non- GFR Calc Troponin I High Sensitivity 41 pg/mL 3.0-78.0 [facility] Comment on above: Please Note: [place] t Units and Gender Specific Reference Ranges. For more information see Policy Stat Procedure Raymond High Sensitivity Troponin (TNIH) and attachments. Platelets bldOrdered By: Dr. Ha on 07-30-2022 Platelets (Bld) [#/Vol] 318 10*3/uL 150-450 [facility] Serum or plasma albumin kassandra urement (mass/volume)Ordered By: Dr. Ha on 07-30-2022 Albumin [Mass/Vol] 2.5 g/dL 3.2-5.0 [facility] Serum or plasma albumin/glob ulin mass ratioOrdered By: Dr. Ha on 07-30-2022 Albumin/Globulin [Mass ratio] 0.5 {ratio} 0.9-2.4 [facility] Serum or plasma calcium kassandra urement (mass/volume)Ordered By: Dr. Ha on 07-30-2022 Calcium [Mass/Vol] 7.8 mg/dL 8.5-10.1 [facility] Serum or plasma creatinine m easurement (mass/volume)Ordered By: Dr. Ha on 07-30-2022 Creatinine [Mass/Vol] 10.30 mg/dL 0.70-1.30 [facility] Comment on above: Critical Result(s) C alled at: 21:24:12 07/30/2022 by: Tati Nettles. Results read back by same.The validity of the calculated GFR & GFRAA in patients over 70 years has not been determined. Clinical correlation is essential. Serum or plasma urea nitroge n measurement (mass/volume)Ordered By: Dr. Ha on 07-30-2022 Urea nitrogen [Mass/Vol] 55 mg/dL 7-18 [facility] Thin prep Papanicolaou smear with manual screeningOrdered By: Dr. Ha on 07-30-2022 Thin prep Papanicolaou smear with manual screening 28 U/L 15-37 [facility] Thin prep Papanicolaou smear with manual screening 10 5-15 [facility] XR CHEST 2V FRONTAL/LATon [facility] XR Chest PA and Lateralon IMPRESSION: Persistent partially loculated yiiys-le-suvioibj right pleural effusion without substantial interval change with subjacent patchy opacities. Fishing Rod Marker: HENRY Transcribe Date/Time: Jul 15 2022 3:45P Dictated by : COURTNEY DOWNS MD This examination was interpreted and the report reviewed and electronically signed by: COURTNEY DOWNS MD on Jul 15 2022 3:46PM [facility] DIVISION OF RADIOLOGY * * *Final Report* * * DATE OF EXAM: Jul 15 2022 2:41PM WOX [id number] - XR CHEST 2V FRONTAL/LAT / PROCEDURE REASON: Pleural effusion * * * * Physician Interpretation * * * * EXAMINATION: CHEST RADIOGRAPH (2 VIEW FRONTAL & LATERAL) CLINICAL HISTORY: Pleural effusion MQ: XC2_6 EXAM DATE/TIME: 07/15/2022 2:41 PM COMPARISON: Chest x-ray dated May 31, 2022 RESULT: Lines, tubes, and devices: Left transvenous pacemaker/AICD with leads projecting over the right-sided cardiac chambers. Thin bore right pleural catheter projects over the right base. Lungs and pleura: There is a persistent partially loculated clrua-xc-apczpcst right pleural effusion without substantial interval change with subjacent patchy opacities. No pneumothorax. Cardiomediastinal silhouette: Normal cardiomediastinal silhouette. Bones and soft tissues: Stable appearance DIVISION OF RADIOLOGY Provider, [facility] - 07/15/2022 * * *Final Report* * * DATE OF EXAM: Jul 15 2022 2:41PM WOX 5291 - XR CHEST 2V FRONTAL/LAT / PROCEDURE REASON: Pleural effusion * * * * Physician Interpretation * * * * EXAMINATION: CHEST RADIOGRAPH (2 VIEW FRONTAL & LATERAL) CLINICAL HISTORY: Pleural effusion MQ: XC2_6 EXAM DATE/TIME: 07/15/2022 2:41 PM COMPARISON: Chest x-ray dated May 31, 2022 RESULT: Lines, tubes, and devices: Left transvenous pacemaker/AICD with leads projecting over the right-sided cardiac chambers. Thin bore right pleural catheter projects over the right base. Lungs and pleura: There is a persistent partially loculated oxloe-lf-pufnwpbs right pleural effusion without substantial interval change with subjacent patchy opacities. No pneumothorax. Cardiomediastinal silhouette: Normal cardiomediastinal silhouette. Bones and soft tissues: Stable appearance IMPRESSION IMPRESSION: Persistent partially loculated ssxmd-bj-acytmcpf right pleural effusion without substantial interval change with subjacent patchy opacities. Fishing Rod Marker: PSCB Transcribe Date/Time: Jul 15 2022 3:45P Dictated by : COURTNEY DOWNS MD This examination was interpreted and the report reviewed and electronically signed by: COURTNEY DOWNS MD on Jul 15 2022 3:46PM EST [facility] Radiology Study observation (narrative) [facility] XR Chest PA and LateralOrder ed By: [facility] Provider on 07-15-[address] [facility] BRIEF OP NOTon 06-25-2022 BRIEF OP NOT HNO ID: [id number] Author: Braxton Olivia MD Service: Radiology Author Type: Resident Type: Brief Op Note Filed: 06/25/2022 2:05 PM Note Text: BRIEF OPERATIVE / PROCEDURE NOTE LOG ID: [id number] SURGERY/PROCEDURE DATE: 06/25/2022 INCISION/PROCEDURE START TIME: 9:50 AM INCISION CLOSE/PROCEDURE END TIME: 10:10 AM SURGEON(S)/PROCEDURALIST(S ) AND SILK SCREEN ETCHER(S): Surgeon(s) and Role: * Ministerio Hauser MD, MD - Primary No Additional Staff SURGERY/PROCEDURE(S): Right sided tunneled pleural catheter, Aspira drain, placement. Right Aspira pleural catheter removal. ANESTHESIA: Procedural Sedation FINDINGS: Loculated effusion. Basilar tunneled catheter placement ESTIMATED BLOOD LOSS: <10 mls SPECIMENS: None COMPLICATIONS: None PRE-OP/PRE-PROCEDURE DIAGNOSIS: Persistent right pleural effusion POST-OP/POST-PROCEDURE DIAGNOSIS: Same as Preop SIGNATURE: Braxton Olivia MD PATIENT NAME: Carlitos Sweeney DATE: June 25, 2022 TIME: 10:20 AM Normal [facility] HISTORY PHYSICALon HISTORY PHYSICAL HNO ID: [id number] Author: Braxton Olivia MD Service: Radiology Author Type: Resident Type: HANDP Filed: 06/25/2022 9:32 AM Note Text: -- Attestation signed by Ministerio Hauser MD, MD at 06/25/2022 11:34 AM Agree -- UPDATED PROCEDURAL SEDATION HISTORY AND PHYSICAL EXAMINATION SERVICE DATE: 06/25/2022 SERVICE TIME: 9:31 AM PROCEDURE SCHEDULED: Procedure(s) with comments: INSERTION PLEURAL CATHETER/ EXCHANGE? 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 SEDATION GOAL: Moderate SIGNATURE: Braxton Olivia MD PATIENT NAME: Carlitos Sweeney DATE: June 25, 2022 TIME: 9:31 AM PAGER: Normal [facility] IR INSERT TUNNELED PLEURAL C ATHon 06-25-2022 IR INSERT TUNNELED PLEURAL CATH * * *Final Report* * * DATE OF EXAM: Jun 25 2022 10:31AM [facility]JUAN [id number] - IR INSERT TUNNELED PLEURAL CATH / PROCEDURE REASON: effusion * * * * Physician Interpretation * * * * PROCEDURE: TUNNELED PLEURAL CATHETER PLACEMENT (ASPIRA) AND THORACENTESIS, REMOVAL OF OLD TUNNELED PLEURAL CATHETER Procedural Personnel Attending physician(s): Ministerio Cadena MD Fellow physician(s): None Resident physician(s): Braxton Olivia MD Advanced practice provider(s): None Medical Student(s): None Pre-procedure diagnosis: Persistent right pleural effusion. Post-procedure diagnosis: Same Indication: Non-malignant pleural effusion Additional clinical history: None PROCEDURE DETAILS: Pre-procedure Consent: Risks, benefits, treatment options, potential complications and personnel to be involved were discussed (including the risks of radiation exposure, contrast and anesthesia administration, and any equipment needed for the procedure to ensure best possible outcome) with the patient and all questions were answered and consent was obtained prior to procedure. Transfusion of blood products: No Medication reconciliation: The patient's medications and allergies were reviewed in the electronic medical record and reconciled to the proposed procedure/treatment. La-procedure discussion: The appropriate elements of the pre-procedure discussion, safety check list and sign-out were performed. Time out: A time out was performed immediately prior to procedure start with the nursing and interventional team, correctly identifying the name, date of , procedure, anatomy (including marking of site and side if applicable), patient position, procedure consent form, relevant diagnostic and radiology test results, antibiotic administration if applicable, safety precautions, and procedure-specific equipment needs. Start of procedure: 0950 End of procedure: 1010 Patient position: Supine Preparation: The site was prepared and draped using maximal sterile barrier technique including cutaneous antisepsis. Antibiotics: None Antibiotic infusion start time: N/A Prophylactic antibiotic administered: None Additional med: None Contrast Contrast agent: None Contrast volume (mL): 0 Image Guidance: Fluoroscopic and sonographic with digital storage of pertinent images FLUOROSCOPIC RADIATION SUMMARY: Plane A, Air Kerma: 30.0 mGy Fluoro Time: 3:12 min:sec Radiation dose exceed 5 Gy: No If radiation dose exceeded 5 Gy, was counseling and instructional brochure provided: N/A Anesthesia/sedation Level of anesthesia/sedation: Moderate sedation (conscious sedation) Anesthesia/sedation administered by: Independent trained observer under attending supervision with continuous monitoring of the patient?s level of consciousness and physiologic status Total intra-service sedation time (minutes): 21 minutes Local anesthesia: Lidocaine Limited thoracic ultrasound Limited thoracic ultrasound was performed. A safe window for catheter insertion was identified. Findings: Moderate pleural effusion with significant number of loculations. Tunneled pleural catheter placement Local anesthesia was administered. The pleural cavity was accessed with a 18 G needle needle and a wire was placed. A subcutaneous tunnel was anesthetized adjacent to the puncture site and the catheter was tunneled through the subcutaneous tissues. Serial dilation of the pleural access point was performed, and a peel-away sheath was placed. The catheter was passed into the sheath as it was peeled away. Pleural access technique: Real-time ultrasound guidance Catheter placed: Aspira tunneled pleural catheter system. Closure The pleural access site was closed and the catheter was secured to the skin. A sterile bandage was applied. Access site closure technique: Absorbable suture and tissue adhesive Catheter securement technique: Non-absorbable suture Tunneled pleural catheter removal The cuff securing the catheter in place was freed utilizing blunt and sharp dissection. The catheter was removed in its entirety. Skin entry site was closed with nonabsorbable suture. A sterile dressing was applied. Additional Details Additional description of procedure: Fluid was removed Equipment details: None Number and Type of Removed Specimens: 0: N/A Estimated blood loss (mL): Less than 10 Standardized report: SIR_TunneledPleuralCathete r_v3 Complications There were no immediate complications and no other complications. Conclusion The patient was comfortable and was transferred to the recovery room in stable condition. The procedure was performed by the: the document control assistant, and the attending radiologist personally supervised the entire procedure. The attending radiologist performed the following procedural activities: Personal supervision of the entir (more content not included)... Normal [facility] IR CHEST TUBE INSERTon 06-14 IR CHEST TUBE INSERT * * *Final Report* * * DATE OF EXAM: Jun 14 2022 3:26PM [facility] [id number] - IR CHEST TUBE INSERT / PROCEDURE REASON: effusion * * * * Physician Interpretation * * * * EXAMINATION: IR CHEST TUBE INSERT PATIENT/TECHNOLOGIST PROVIDED HISTORY: Recurrent right pleural effusion CLINICAL INFORMATION: effusion. The patient reports that when he initially got the catheter placed, the used to drain about 1 L every other day, now, he gets about 200 cc of fluid every other day. Comparison: 04/04/2022 Contrast Media 1: cavity administration of 5 ml of OMNIPAQUE 300 Fluoroscopic Radiation Summary: Plane A, Air Kerma: 52.0 mGy Fluoro time: 5:36 min:sec Sedation/anesthesia: No sedation and no anesthesia was administered. Start time: 3:04 PM End time: 3:20 PM TECHNIQUE/RESULTS: Initial contrast injection through the catheter was performed. This demonstrated that there are several sideholes which are occluded and which are not draining appropriately. However, there was still a significant amount of contrast entering into the pleural space. The hub of the Aspira after was removed, and a Fernandes catheter and Bentson wire were advanced as far distally into the catheter as possible. tPA was instilled throughout the length of the catheter as the Fernandes catheter was being retracted. A total of 10 mg of tPA was instilled throughout the length of the catheter. The tPA was allowed to dwell for 1 hour. After 1 hour, catheter aspiration was performed. This demonstrated significant improvement in drainage, and a total of 650 cc of fluid was able to be aspirated. IMPRESSION: Partially obstructed Aspira Catheter, with several sideholes partially occluded. Successful tPA treatment, with improvement in drainage of the catheter (650 cc was able to be obtained at the end of the procedure). Fishing Rod Marker: [facility] Transcribe Date/Time: Jun 14 2022 4:22P Dictated by : MINISTERIO CADENA MD This examination was interpreted and the report reviewed and electronically signed by: MINISTERIO CADENA MD on Jun 14 2022 4:33PM EST [id number] Normal [facility] XR Chest PA and Lateralon IMPRESSION: Improvement without resolution of the right pleural effusion after placement of a right chest tube. A follow-up exam is recommended. Fishing Rod Marker: [facility] Transcribe Date/Time: Jun 02 2022 4:35P Dictated by : RAVI ESCOBAR MD This examination was interpreted and the report reviewed and electronically signed by: RAVI ESCOBAR MD on Jun 02 2022 4:37PM EST DIVISION OF RADIOLOGY * * *Final Report* * * DATE OF EXAM: May 31 2022 12:50PM WOX 5291 - XR CHEST 2V FRONTAL/LAT / PROCEDURE REASON: Pleural effusion * * * * Physician Interpretation * * * * EXAMINATION: CHEST RADIOGRAPH (2 VIEW FRONTAL & LATERAL) CLINICAL HISTORY: Pleural effusion MQ: XC2_6 EXAM DATE/TIME: 05/31/2022 12:50 PM COMPARISON: 03/11/2022. RESULT: Lines, tubes, and devices: A right lower chest tube has been placed since the prior examination. A left pacemaker remains in place. Lungs and pleura: There has been improvement of the partially loculated right pleural effusion. There are persistent right lower lung infiltrate/atelectatic changes. Cardiomediastinal silhouette: Normal cardiomediastinal silhouette. Bones and soft tissues: Unremarkable. DIVISION OF RADIOLOGY Provider, [facility] - 06/02/2022 * * *Final Report* * * DATE OF EXAM: May 31 2022 12:50PM WOX 5291 - XR CHEST 2V FRONTAL/LAT / PROCEDURE REASON: Pleural effusion * * * * Physician Interpretation * * * * EXAMINATION: CHEST RADIOGRAPH (2 VIEW FRONTAL & LATERAL) CLINICAL HISTORY: Pleural effusion MQ: XC2_6 EXAM DATE/TIME: 05/31/2022 12:50 PM COMPARISON: 03/11/2022. RESULT: Lines, tubes, and devices: A right lower chest tube has been placed since the prior examination. A left pacemaker remains in place. Lungs and pleura: There has been improvement of the partially loculated right pleural effusion. There are persistent right lower lung infiltrate/atelectatic changes. Cardiomediastinal silhouette: Normal cardiomediastinal silhouette. Bones and soft tissues: Unremarkable. IMPRESSION IMPRESSION: Improvement without resolution of the right pleural effusion after placement of a right chest tube. A follow-up exam is recommended. Fishing Rod Marker: PSCB Transcribe Date/Time: Jun 02 2022 4:35P Dictated by : RAVI ESCOBAR MD This examination was interpreted and the report reviewed and electronically signed by: RAVI ESCOBAR MD on Jun 02 2022 4:37PM EST [facility] XR Chest PA and LateralOrder ed By: [facility] Provider on 06-02-[address] [facility] XR Chest PA and Lateralon Radiology Study observation (narrative) [facility] [place] 04-08-2022 [facility] Telephone ([facility]) -- CARLITOS SWEENEY ([id number]) 1975 M NFR Date Time Provider Department 04/08/22 DEONTE PONCE During your visit today, we recorded the following information about you: Deonte Ponce APRN.CNP 04/08/2022 3:20 PM Signed Called back to pt and relied answer from Dr. Huerta that this could be a piece of fat. Deonte Ponce APRN.CNP Allergies As of Date: 04/08/2022 Noted Allergy Reaction CYCLOBENZAPRINE 02/05/2017 16 - Unknown DYE 07/04/2015 14 - Other: See Comments Comments: IV contrast makes pt run a high temperature HYDRALAZINE 02/05/2017 16 - Unknown PENICILLINS 05/16/2003 2 - Rash PROCARDIA (NIFEDIPINE) 05/28/2016 7 - Swelling TRAMADOL 02/05/2017 16 - Unknown Date Reviewed: 04/04/2022 Reviewed by: Aleja Shankar, MADONNA - Fully Assessed Reason for Visit: Returning Patient's Call [[id number]] Prescriptions as of 04/08/2022 - azithromycin (ZITHROMAX) 250 mg tablet Take 2 tabs on the first day, then one tab daily for 4 days. - methylPREDNISolone (MEDROL, CHETAN,) 4 mg Dose-Pack Use orally as directed. - hydrALAZINE (APRESOLINE) 50 mg tablet Take 50 mg by mouth three times daily. - NIFEdipine XL (ADALAT CC) 30 mg 24 hr tablet Take 30 mg by mouth twice daily. - sevelamer carbonate (RENVELA) 800 mg tablet Take 1 tablet by mouth three times daily. - lisinopril (ZESTRIL, PRINIVIL) 5 mg tablet 5 mg. - amLODIPine (NORVASC) 10 mg tablet Take 1 tablet by mouth once daily. - acetaminophen (TYLENOL) 325 mg tablet Take 2 tablets every 4 hours as needed for pain. - calcium acetate (PHOSLO) 667 mg tab Take 667 mg by mouth as directed. takes 4 capsules 3 times a day plus 2 capsules with each snack. - carvedilol (COREG) 25 mg tablet Take 25 mg by mouth twice daily with meals. 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] 02/28/2014 Anemia of chronic renal failure [N18.9, D63.1] 08/18/2015 Tobacco use disorder [F17.200] 08/18/2015 Chronic obstructive pulmonary disease (HCC) [J4*08/18/2015 Chronic combined systolic and diastolic CHF (co*08/18/2015 Snores [R06.83] 08/18/2015 Uncontrolled daytime somnolence [R40.0] 08/18/2015 Hemodialysis patient (HCC) [Z99.2] 03/28/2016 Gastroesophageal reflux disease without esophag*10/23/2016 Moderate episode of recurrent major depressive *10/23/2016 Noncompliance with renal dialysis (HCC) [Z91.15]10/23/2016 Noncompliance with treatment [Z91.199] 10/23/2016 Implantable cardioverter-defibrillator (ICD) in*02/12/2017 End stage renal failure on dialysis (HCC) [N18.*02/12/2017 Hypertensive heart disease with congestive hear*02/12/2017 Elevated hemoglobin A1c [R73.09] 10/13/2020 Psychophysiological insomnia [F51.04] 11/14/2020 Mild episode of recurrent major depressive diso*09/04/2021 Recurrent right pleural effusion [J90] 02/12/2022 Encounter Status:Closed by DEONTE PONCE on 04/08/22 [facility] BRIEF OP NOTon 04-04-2022 BRIEF OP NOT HNO ID: [id number] Author: Celso Reed MD, MD Service: Interventional Radiology Author Type: Physician Type: Brief Op Note Filed: 04/04/2022 5:12 PM Note Text: INTERVENTIONAL RADIOLOGY POST PROCEDURE NOTE DATE: 04/04/22 NAME: Carlitos Sweeney LOG ID: [id number] Pre-Procedure Diagnosis: Recurrent pleural effusion. ESRD Staff Midwife/Apprenticeship Director: Surgeon(s) and Role: * Celso Reed MD, - Primary Procedure: Right tunneled pleural catheter (Aspira) Anesthesia: Procedural Sedation Findings: Tunneled catheter placed. Good position. A total of 1,500 cc of fluid were aspirated. Estimated Blood Loss: 10 mls Specimen: 10 cc of right pleural fluid to the lab. Complications: None Post-Op/Post-Procedure Diagnosis: Successful placement of tunneled right pleural catheter (Aspira) Ready to use. Normal [facility] CBC panel Auto (Bld)on 04-04 Erythrocyte distribution width (RBC) [Ratio] 16.1 % High 11.5-15.0 [facility] Comment on above: Order Comment: Milad chapman Type: BLOOD SPECIMENOrdering Facility: [facility] Address: [address] [place] [address] Performed By: #### 5 8410-2 ####[facility] LABORATORYCLIA [id number] [place] [address] [place] Hematocrit (Bld) [Volume fraction] 30.3 % Low 39.0-51.0 [facility] Comment on above: Order Comment: Milad chapman Type: BLOOD SPECIMENOrdering Facility: [facility] Address: [address] [place] [address] Performed By: #### 5 8410-2 ####[facility] LABORATORYCLIA [id number] [place] [address] [place] Hemoglobin (Bld) [Mass/Vol] 9.5 g/dL Low 13.0-17.0 [facility] Comment on above: Order Comment: Milad chapman Type: BLOOD SPECIMENOrdering Facility: [facility] Address: [address] [address] Performed By: #### 5 8410-2 ####[facility] LABORATORYCLIA [id number] [address] MCH (RBC) [Entitic mass] 28.3 pg Normal 26.0-34.0 [facility] Comment on above: Order Comment: Speci men Type: BLOOD SPECIMENOrdering Facility: [facility] Address: [address] [place] [address] Performed By: #### 5 8410-2 ####[facility] LABORATORYCLIA [id number] [address] MCHC (RBC) [Mass/Vol] 31.4 g/dL Normal 30.5-36.0 [facility] Comment on above: Order Comment: Speci men Type: BLOOD SPECIMENOrdering Facility: [facility] Address: [address] [place] [address] Performed By: #### 5 8410-2 ####[facility] LABORATORYCLIA [id number] [address] MCV (RBC) [Entitic vol] 90.2 fL Normal 80.0-100.0 [facility] Comment on above: Order Comment: Speci men Type: BLOOD SPECIMENOrdering Facility: [facility] Address: [address] [place] [address] Performed By: #### 5 8410-2 ####[facility] LABORATORYCLIA [id number] [address] Nucleated RBC (Bld) [#/Vol] 10*3/uL Normal <0.01 [facility] Comment on above: Order Comment: Speci men Type: BLOOD SPECIMENOrdering Facility: [facility] Address: [address] [place] [address] Performed By: #### 5 8410-2 ####[facility] LABORATORYCLIA [id number] [address] Platelet mean volume (Bld) [Entitic vol] 8.7 fL Low 9.0-12.7 [facility] Comment on above: Order Comment: Speci men Type: BLOOD SPECIMENOrdering Facility: [facility] Address: [address] [place] [address] Performed By: #### 5 8410-2 ####[facility] LABORATORYCLIA [id number] [address] Platelets (Bld) [#/Vol] 196 10*3/uL Normal 150-400 [facility] Comment on above: Order Comment: Speci men Type: BLOOD SPECIMENOrdering Facility: [facility] Address: [address] [place] [address] Performed By: #### 5 8410-2 ####[facility] LABORATORYCLIA [id number] [address] RBC (Bld) [#/Vol] 3.36 10*6/uL Low 4.20-6.00 [facility] Comment on above: Order Comment: Speci men Type: BLOOD SPECIMENOrdering Facility: [facility] Address: [address] [place] [address] Performed By: #### 5 8410-2 ####[facility] LABORATORYCLIA [id number] [address] WBC (Bld) [#/Vol] 4.15 10*3/uL Normal 3.70-11.00 [facility] Comment on above: Order Comment: Speci men Type: BLOOD SPECIMENOrdering Facility: [facility] Address: [address] [place] [address] Performed By: #### 5 8410-2 ####[facility] LABORATORYCLIA [id number] [address] [place] Erythrocyte distribution width (RBC) [Ratio] 16.1 % High 11.5 - 15.0 % [facility] Hematocrit (Bld) [Volume fraction] 30.3 % Low 39.0 - 51.0 % [facility] Hemoglobin (Bld) [Mass/Vol] 9.5 g/dL Low 13.0 - 17.0 g/dL [facility] MCH (RBC) [Entitic mass] 28.3 pg 26.0 - 34.[address] [facility] MCHC (RBC) [Mass/Vol] 31.4 g/dL 30.5 - 36.0 g/dL [facility] MCV (RBC) [Entitic vol] 90.2 fL 80.0 - 100.[address] [facility] Nucleated RBC (Bld) [#/Vol] <0.01 k/uL [facility] Platelet mean volume (Bld) [Entitic vol] 8.7 fL Low 9.0 - 12.[address] [facility] Platelets (Bld) [#/Vol] 196 10*3/uL 150 - 400 k/uL [facility] RBC (Bld) [#/Vol] 3.36 10*6/uL Low 4.20 - 6.0 0 m/uL [facility] WBC (Bld) [#/Vol] 4.15 10*3/uL 3.70 - 11. 00 k/uL [facility] HISTORY PHYSICALon HISTORY PHYSICAL HNO ID: [id number] Author: Celso Reed MD, MD Service: Interventional Radiology Author Type: Physician Type: HANDP Filed: 04/04/2022 10:30 AM Note Text: UPDATED HISTORY AND PHYSICAL EXAMINATION Date: 04/04/22 Name: Carlitos Sweeney PHYSICAL EXAM MUST BE COMPLETED ON ADMISSION The History and Physical (completed in the past 30 days) has been reviewed and the patient has been examined. The contents accurately reflect the patient's condition with the following additions or revisions since the HANDP was completed. Examination indicates no changes. This HANDP can be found in the attached. Normal [facility] IR INSERT TUNNELED PLEURAL C ATH 04-04-2022 IR INSERT TUNNELED PLEURAL CATH * * *Final Report* * * DATE OF EXAM: Apr 04 2022 3:27PM [facility] [id number] - IR INSERT TUNNELED PLEURAL CATH / PROCEDURE REASON: effusion * * * * Physician Interpretation * * * * 1. ULTRASOUND GUIDED PUNCTURE RIGHT CHEST 2. PLACEMENT OF TUNNELED RIGHT CHEST CATHETER (ASPIRA) UNDER FLUOROSCOPIC GUIDANCE 3. CONSCIOUS SEDATION INDICATION: Recurrent right pleural effusion. The referring physician has requested placement of a tunneled chest catheter. COMPARISON: Chest x-ray dated 03/11/2022. TECHNIQUE AND FINDINGS: The advantages, alternatives and potential complications of placement of tunneled chest tube placement, including but not limited to bleeding, infection, pneumothorax, damage to surrounding viscera, electrolyte disturbance, renal failure, hypotension, adverse reaction to intraprocedural medications and aggravation of existing medical conditions were discussed with the patient who understood the discussion and provided written consent for the procedure. Preprocedural laboratory values were in an acceptable range for the planned procedure. Time out was performed prior to the study. Ultrasound of the right chest confirmed the presence of a large pleural effusion. The mid/lower right lateral chest was chosen for puncture. The surgical site was cleaned, prepped and draped. Maximal sterile barrier technique was used throughout the complete procedure. Local anesthesia was given to the soft tissues with lidocaine 1%. The chest was punctured under direct sonographic guidance with an 18 G single wall needle. An Amplatz guidewire was advanced. A second incision was made anterior and superior to the puncture site. Using blunt dissection, a subcutaneous tunnel was created. The catheter was then advanced through the tunnel toward the entry puncture site. The entry site was dilated for placement of a peel-away sheath. The catheter was finally advanced through the sheath and positioned at the lower chest. Fluoroscopy confirmed good position of the catheter. The chest entry site was closed with 4-0 resorbable suture and surgical glue. The catheter was secured to the skin with 2-0 Prolene x2. There was adequate function of the catheter with aspiration of pleural fluid in the IR suite (1500 cc). The drainage catheter was then capped. The patient tolerated the procedure well and left IR in stable condition. There were no immediate complications. MODERATE SEDATION: Under Dr. Nolasco's supervision, Versed 1.5 mg and Fentanyl 75 micrograms were provided intravenously for moderate conscious sedation. Heart rate, blood pressure and oxygen saturation were continuously monitored during the complete procedure by the IR physician and IR nurse. Moderate sedation physician-patient face time: 35 minutes. Cumulative dose: 4 mGy. Fluoroscopy time: 1.5 minutes. Estimated blood loss: Less than 10 cc. Medications: Lidocaine 1% 10 cc. IMPRESSION: 1. Successful placement of a right-sided tunneled chest catheter (Aspira) as described above. 2. No immediate complications. Fishing Rod Marker: HENRY Transcribe Date/Time: Apr 10 2022 1:05A Dictated by : CELSO REED MD This examination was interpreted and the report reviewed and electronically signed by: CELSO REED MD on Apr 10 2022 1:09AM EST [id number] Normal [facility] PT panel Coag (PPP)on 2021 INR Coag (PPP) [Relative time] 1.0 {INR} Normal 0.9-1.3 [facility] Comment on above: Order Comment: Specdevin chapman Type: BLOOD SPECIMENOrdering Facility: [facility] Address: [address] [place], [place] [id number] Result Comment: Jacquelyn min K Antagonist (VKA) Therapeutic Range: INR 2 to 3 (Target INR of 2.5) Note: For patients treated with VKA drugs, such as warfarin, the [place] [employer] 2012 Guideline recommends a therapeutic INR range of 2 to 3 (target INR of 2.5). This recommendation includes high-risk patients with antiphospholipid syndrome with previous arterial or venous thromboembolism, current-generation mechanical or bioprosthetic aortic heart valve replacement. Note: Patients with mechanical aortic valve replacement and additional risk factors for thromboembolic events (atrial fibrillation, previous thromboembolism, LV dysfunction, hypercoagulable conditions) or an older generation mechanical AVR (i.e., ball in-Cage) or any mechanical MVR should have a INR therapeutic range of 2.5 to 3.5 (target INR of 3). Andrew FOUNTAIN, et al. Chest 2012, 141:7S-47S Mireya RA, et al. [facility] 2017, 70: 252-289 Performed By: #### 3 4528-0 ####[facility] LABORATORYCLIA [id number] [address] [place] PT Coag (PPP) [Time] 10.7 s Normal 9.7-13.0 [facility] Comment on above: Order Comment: Milad chapman Type: BLOOD SPECIMENOrdering Facility: [facility] Address: [address] [id number] Performed By: #### 3 4528-0 ####[facility] LABORATORYCLIA [id number] [address] [place] INR Coag (PPP) [Relative time] 1.0 {INR} 0.9 - 1.[address] [facility] PT Coag (PPP) [Time] 10.7 s 9.7 - 1 3.[address] [facility] No Panel Informationon 04-[address] [facility] SPIROMETRY - BASELINE AND PO ST DILATORon 04-02-2022 DLCO (ml/min/mmHg) 11.16 ml/min/mmHg [facility] DLCO/VA (ml/min/mmHg/L) 3.86 ml/min/mmHg/L [facility] ERV BOX (L) 0.[address] [facility] [id number]% POST (L/S) 2.11 L/S [facility] [id number]% PRE (L/S) 1.34 L/S [facility] FEV1 PRE (L) 1.[address] [facility] FEV1/FVC POST (%) 83 % [facility] FEV1/FVC PRE (%) 81 % [facility] FEV1_POST (L) 1.[address] [facility] FRC Box (L) 1.[address] [facility] FVC POST (L) 1.[address] [facility] FVC PRE (L) 1.[address] [facility] IC BOX (L) 1.[address] [facility] PEF POST (L/S) 4.13 L/S [facility] PEF PRE (L/S) 3.80 L/S [facility] RV Box (L) 1.[address] [facility] RV/TLC Box (%) 49 % [facility] TLC Box (L) 3.[address] [facility] VA (L) 2.[address] [facility] VC (L) BOX 1.[address] [facility] CNOVon 04-01-2022 CNOV Office Visit ([facility]) -- CARLITOS SWEENEY ([id number]) 1975 M NFR Date Time Provider Department 04/01/22 2:00 PM AJ HUERTA [facility] During your visit today, we recorded the following information about you: Pulse Blood pressure Weight Height 61/minute 134/70 71.4 kg 1.803 m Aj Huerta MD 04/01/2022 6:21 PM Signed PRIMARY CARE PHYSICIAN: Tom Conte [address] [place] [address] Subjective Chief Complaint Patient presents with: New Patient: Referral Leslie Field MD recurrent (R) pleural effusion. HISTORY OF PRESENT ILLNESS: Mr. Sweeney is a 46 year old male presenting to the office for evaluation of recurrent right-sided pleural effusion. He has a past medical history of ESRD on HD, 2 kidney transplants, and right AV fistula. He also has hypertension, HFrEF status post AICD with an EF of 40%, congenital solitary kidney, and a history of peritonitis with an indwelling peritoneal dialysis catheter up until about September of this year. He is a current every day smoker with about 27-sczy-zwux history. So far has had 2 thoracenteses on the right with removal of 2 L of 1.2 L last on March 11, 2022. He was prescribed antibiotics and steroids at this time, neither which helped. Both times, the patient requested the procedure be stopped due to pain/shortness of breath and coughing, therefore fluid was left inside the chest cavity both times. Fluid returned mostly transudative with no malignant cells. The patient denies nausea, vomiting, fevers, chills, lightheadedness, dizziness, orthopnea, PND, headaches, back pain, easily bleeding or bruising, recent cancer diagnoses, or recent hospitalizations for any reason other than stated above. Review of Systems Constitutional: Negative for chills, fever, malaise/fatigue and weight loss. HENT: Negative for sore throat. Eyes: Negative for blurred vision and double vision. Respiratory: Positive for cough and shortness of breath. Negative for hemoptysis, wheezing and stridor. Cardiovascular: Positive for chest pain. Negative for palpitations, leg swelling and PND. Gastrointestinal: Negative for abdominal pain, melena, nausea and vomiting. Genitourinary: Negative for flank pain and hematuria. Musculoskeletal: Negative for myalgias. Skin: Negative for rash. Neurological: Negative for dizziness, seizures, loss of consciousness and weakness. Endo/Heme/Allergies: Does not bruise/bleed easily. Objective PAST MEDICAL HISTORY Diagnosis Date Abdominal pain 10/01/2013 Anemia of chronic renal failure 08/18/2015 Anxiety 10/01/2013 BENIGN HYP RENAL W KID FAIL 02/11/2005 Chronic combined systolic and diastolic CHF (congestive heart failure) ([facility]) 08/18/2015 Seeing cardio in [place] (has pace maker/defibulator) Chronic kidney disease, stage 5 ([facility]) Dialysis M,W,F @ [facility] Chronic obstructive pulmonary disease ([facility]) 08/18/2015 CKD (chronic kidney disease) stage 4, GFR 15-29 ml/min ([facility]) 04/26/[address] 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 End stage renal failure on dialysis ([facility]) 02/12/2017 Essential hypertension 09/10/2013 Gastroesophageal reflux disease without esophagitis 10/23/2016 Hemodialysis patient ([facility]) 03/28/2016 Hyperkalemia 02/12/2017 Hyperphosphatemia 02/12/2017 Hypertensive heart disease with congestive heart failure ([facility]) 02/12/2017 Hypocalcemia 02/12/2017 Implantable cardioverter-defibrillator (ICD) in situ 02/12/2017 Kidney replaced by transplant 05/27/97 Kidney transplant failure and rejection 05/12/2013 Kidney transplant rejection 05/12/2013 Moderate episode of recurrent major depressive disorder (HCC) 10/23/2016 MRSA colonization, nasal 02/28/2014 Presence of combination internal cardiac defibrillator (ICD) and pacemaker Psychophysiological insomnia 11/14/2020 [facility] needs substance agreement [facility]. If cancels or No Shows the Belsomra will be stopped. Smoker 08/18/2015 Started at age 14 up to 1-1.5 PPD, currently at 1/2 PPD (10/2016), as of 05/2019 less than 1/2 a PPD PAST SURGICAL HISTORY Procedure Laterality Date 2D ECHO (EXEP) 11/02/2020 EF=50%, mod Joshi dysf CHOLECYSTECTOMY INSJ TUNNELED CVC W/O SUBQ PORT/MANAGER TRAINING AND DEVELOPMENT AGE 3 YR/> 01/21/2014 PAST SURGICAL HISTORY OF 05/1997 Renal Transplant, cadaveric PAST SURGICAL HISTORY OF 09/2011 renal transplant PAST SURGICAL HISTORY OF Right cautery right nare for chronic nosebleeds PAST SURGICAL HISTORY OF 01/31/2017 LEFT UPPER ARM AVG FAMILY HISTORY Problem Relation Age of Onset Diabetes Father Heart Father Asthma Brother Heart Brother Diabetes Paternal Uncle Anesthesia Problems No Family History Social History Tobacco Use Smoking status: Every Day Packs/day: 0.50 Years: 29.00 Pack years: 14.50 (more content not included)... Normal [facility] [place] 04-01-2022 [facility] ([facility] -- CARLITOS SWEENEY ([id number]) 1975 M NFR Date Time Provider Department 04/01/22 AJ HUERTA [facility] During your visit today, we recorded the following information about you: Chris Jean-Baptiste 04/01/2022 4:05 PM Signed Phoned [facility] Interventional Radiology [phone] to schedule pt for placement right pleural catheter. They will call pt directly to schedule procedure. Allergies As of Date: 04/01/2022 Noted Allergy Reaction CYCLOBENZAPRINE 02/05/2017 16 - Unknown DYE 07/04/2015 14 - Other: See Comments Comments: IV contrast makes pt run a high temperature HYDRALAZINE 02/05/2017 16 - Unknown PENICILLINS 05/16/2003 2 - Rash PROCARDIA (NIFEDIPINE) 05/28/2016 7 - Swelling TRAMADOL 02/05/2017 16 - Unknown Date Reviewed: 04/01/2022 Reviewed by: Elvia Ramirez LPN - Fully Assessed Reason for Visit: Patient Update [1234] Prescriptions as of 04/01/2022 - azithromycin (ZITHROMAX) 250 mg tablet Take 2 tabs on the first day, then one tab daily for 4 days. - methylPREDNISolone (MEDROL, CHETAN,) 4 mg Dose-Pack Use orally as directed. - hydrALAZINE (APRESOLINE) 50 mg tablet Take 50 mg by mouth three times daily. - NIFEdipine XL (ADALAT CC) 30 mg 24 hr tablet Take 30 mg by mouth twice daily. - sevelamer carbonate (RENVELA) 800 mg tablet Take 1 tablet by mouth three times daily. - lisinopril (ZESTRIL, PRINIVIL) 5 mg tablet 5 mg. - amLODIPine (NORVASC) 10 mg tablet Take 1 tablet by mouth once daily. - acetaminophen (TYLENOL) 325 mg tablet Take 2 tablets every 4 hours as needed for pain. - calcium acetate (PHOSLO) 667 mg tab Take 667 mg by mouth as directed. takes 4 capsules 3 times a day plus 2 capsules with each snack. - carvedilol (COREG) 25 mg tablet Take 25 mg by mouth twice daily with meals. Problem List As Of Date 04/01/2022 Noted Resolved Kidney replaced by transplant [Z94.0] 02/11/2005 Benign hypertensive kidney disease with chronic*02/11/2005 CKD (chronic kidney disease) stage 4, GFR 15-29*04/26/2013 Kidney transplant failure and rejection [T86.12*05/12/2013 Essential hypertension [I10] 09/10/2013 Anxiety [F41.9] 10/01/2013 Abdominal pain [R10.9] 10/01/2013 MRSA colonization, nasal [Z22.322] 02/28/2014 Anemia of chronic renal failure [N18.9, D63.1] 08/18/2015 Tobacco use disorder [F17.200] 08/18/2015 Chronic obstructive pulmonary disease (HCC) [J4*08/18/2015 Chronic combined systolic and diastolic CHF (co*08/18/2015 Snores [R06.83] 08/18/2015 Uncontrolled daytime somnolence [R40.0] 08/18/2015 Hemodialysis patient (HCC) [Z99.2] 03/28/2016 Gastroesophageal reflux disease without esophag*10/23/2016 Moderate episode of recurrent major depressive *10/23/2016 Noncompliance with renal dialysis (HCC) [Z91.15]10/23/2016 Noncompliance with treatment [Z91.199] 10/23/2016 Implantable cardioverter-defibrillator (ICD) in*02/12/2017 End stage renal failure on dialysis (HCC) [N18.*02/12/2017 Hypertensive heart disease with congestive hear*02/12/2017 Elevated hemoglobin A1c [R73.09] 10/13/2020 Psychophysiological insomnia [F51.04] 11/14/2020 Mild episode of recurrent major depressive diso*09/04/2021 Recurrent right pleural effusion [J90] 02/12/2022 Encounter Status:Closed by CHRIS JEAN-BAPTISTE on 04/01/22 Normal [facility] CORONAVIRUS PCR - [facility] 03-28-2022 SARS-CoV-2 (COVID-19) RNA JAMILAH+probe Ql (Unsp spec) Negative Normal NORMAL: NEGATIVE [facility] Comment on above: Performed By: #### 2 [id number] #### [facility],[address] [place] [address] SEND TO IC? YES Normal [facility] Comment on above: Result Comment: RESU LTS FAXED TO INFECTION CONTROL. SARS-CoV-2 THIS TEST IS BEING USED UNDER THE FDA EUA PROCEDURE. THIS ASSAY HAS BEEN VALIDATED IN THE [facility] FOR USE WITH NASOPHARYNGEAL SPECIMENS IN [facility]. INTERPRET[facility] LABORATORY TEST RESULTS SHOULD ALWAYS BE CONSIDERED IN THE CONTEXT OF CLINICAL OBSERVATIONS AND EPIDEMIOLOGICAL DATA IN MAKING FINAL DIAGNOSIS AND PATIENT MANAGEMENT DECISIONS. PATIENT MANAGEMENT SHOULD FOLLOW CURRENT CDC GUIDELINES. A POSITIVE TEST RESULT FOR COVID-19 INDICATES THAT RNA FROM SARS-CoV-2 WAS DETECTED, AND THE PATIENT IS INFECTED WITH THE VIRUS AND PRESUMED TO BE CONTAGIOUS. A NEGATIVE TEST RESULT FOR THIS TEST MEANS THAT SARS-CoV-2 RNA WAS NOT PRESENT IN THE SPECIMEN ABOVE THE LIMIT OF DETECTION. HOWEVER, A NEGATVIE RESULT DOES NOT RULE OUT COVID-19 AND SHOULD NOT BE USED THE SOLE BASIS FOR TREATMENT OR PATIENT MANAGEMENT DECISIONS. A NEGATIVE RESULT DOES NOT EXCLUDE THE POSSIBILITY OF COVID-19. WHEN DIAGNOSTIC TESTING IS NEGATIVE, THE POSSIBLILTY OF A FALSE NEGATIVE RESULT SHOULD BE CONSIDERED IN THE CONTEXT OF A PATIENT'S RECENT EXPOSURES AND THE PRESENCE OF CLINICAL SIGNS AND SYMPTOMS CONSISTENT WITH COVID-19. THE POSSIBILITY OF A FALSE NEGATIVE RESULT SHOULD ESPECIALLY BE CONSIDERED IF THE PATIENT'S RECENT EXPOSURES OR CLINICAL PRESENTATION INDICATE THAT COVID-19 IS LIKELY, AND DIAGNOSTIC TESTS FOR OTHER CAUSES OF ILLNESS (e.g., OTHER RESPIRATORY ILLNESS) ARE NEGATIVE. IF COVID-19 IS STILL SUSPECTED BASED ON EXPOSURE HISTORY TOGETHER WITH OTHER CLINICAL FINDINGS, RE-TESTED SHOULD BE CONSIDERED BY HEALTHCARE PROVIDERS IN CONSULTATION WITH PUBLIC HEALTH AUTHORITIES. Performed By: #### 2 [id number] #### [facility],[address] [place] [address] HEALTH 03-11-2022 [facility] HNO ID: [id number] Author: RT Jag(R) Service: Radiology Author Type: Technologist Type: Allied Health Filed: 03/11/2022 2:41 PM Note Text: Radiology Service Progress Note PATIENT NAME: Carlitos Sweeney DATE OF SERVICE: March 11, 2022 TIME: 2:41 PM PATIENT IDENTITY VERIFICATION COMPLETED USING TWO (2) IDENTIFIERS: Name and Date of confirmed by patient verbally and Name and Date of confirmed by identification band. FALL SCREENING: Has the patient had 2 falls in the last year or 1 fall with injury or currently using an Ambulatory Assistive Device (Walker, Cane, Wheelchair, Crutches, etc.)? No PATIENT GENDER DATA: Male PATIENT RELEVANT IMPLANT DATA REVIEWED: Not Applicable RADIOLOGY DEPARTMENT: General X-ray: Exam(s) Completed: Chest X-Ray PERIPHERAL IV DATA: Not applicable SIGNED BY: RT Jag(R) March 11, 2022 2:41 PM [facility] BRIEF OP NOTon 03-11-2022 BRIEF OP NOT HNO ID: [id number] Author: Olga Lidia Sheridan APRN.CNP Service: Interventional Radiology Author Type: Nurse Practitioner Type: Brief Op Note Filed: 03/11/2022 2:30 PM Note Text: BRIEF OP NOTE LOG ID: [id number] Surgery/Procedure Date: 03/11/2022 Surgeon(s)/Proceduralist(s ) and Social And Human Services Assistant(s): Olga Lidia Sheridan APRN.CNP Procedure(s): R thoracentesis Anesthesia: local 5 ml lidocaine Findings: 1200 ml clear yellow fluid, stopped due to pain/pressure/coughing. At least a moderate to large effusion remained. Estimated Blood Loss: <3 ml Specimens: No Complications: none Pre-Op/Pre-Procedure Diagnosis: effusion Post-Op/Post-Procedure Diagnosis: same SIGNATURE: Olga Lidia Sheridan APRN.CNP PATIENT NAME: Carlitos Sweeney DATE: March 11, 2022 TIME: 2:20 PM PAGER/CONTACT #: [phone] Normal [facility] IMAGING GUIDED THORACENTESIS on 03-11-[address] [facility] US THORACENTESIS BIon 2021 US THORACENTESIS BI * * *Final Report* * * DATE OF EXAM: Mar 11 2022 2:34PM SANDRAU 2049 - US THORACENTESIS BI / PROCEDURE REASON: J90 * * * * Physician Interpretation * * * * EXAM TITLE: ULTRASOUND GUIDED RIGHT THORACENTESIS DATE: 03/11/2022 COMPARISON: Thoracentesis dated 02/14/2022 CLINICAL INDICATION/HISTORY: Pleural effusion TECHNIQUE: Informed consent was obtained from the patient. The patient was placed in an erect position with the arms over a tray table and ultrasound interrogated the right hemithorax. An appropriate skin entrance site was identified, prepped, and anesthetized. Under ultrasound guidance a 5-[place] Islander Yueh needle was passed into the pleural space and fluid was aspirated with the aid of a vacuum bottle. A specimen was not sent for laboratory analysis. An image was captured documenting the needle in the pleural space. PPE: Surgical mask, protective eyewear, and gloves. FINDINGS: Ultrasound reveals a large amount of fluid. 1200 cc of clear yellow fluid was obtained. IMPRESSION: Technically successful ultrasound-guided right thoracentesis yielded 1200 cc of clear yellow fluid which was not sent for laboratory analysis. Stopped due to coughing, pressure, and pain. At least a moderate to large effusion remained. A follow-up chest radiograph will be obtained to determine the presence or absence of pneumothorax. Fishing Rod Marker: HENRY Transcribe Date/Time: Mar 11 2022 3:05P Dictated by : OLGA LIDIA SHERIDAN CNP This examination was interpreted and the report reviewed and electronically signed by: OLGA LIDIA SHERIDAN CNP on Mar 11 2022 3:07PM EST [id number] Normal [facility] XR CHEST 1V FRONTALon 2021 XR CHEST 1V FRONTAL * * *Final Report* * * DATE OF EXAM: Mar 11 2022 2:41PM AKX [id number] - XR CHEST 1V FRONTAL / PROCEDURE REASON: Post-operative / post-procedure assessment, asymptomatic * * * * Physician Interpretation * * * * EXAMINATION: CHEST RADIOGRAPH (SINGLE VIEW AP OR PA) CLINICAL HISTORY: Post-operative / post-procedure assessment, asymptomatic MQ: XC1_5 Comparison: Chest x-ray February 26, 2022 RESULT: Lines, tubes, and devices: Left chest AICD with leads profiling right atrium and right ventricle. Lungs and pleura: No pneumothorax. Pleural parenchymal opacities at the right lung base likely representing combination of right lower lung atelectasis and small to moderate-sized pleural effusion. The effusion is decreased in size from prior chest x-ray. Cardiomediastinal silhouette: Normal cardiomediastinal silhouette. Other: . IMPRESSION: No pneumothorax. Decrease in size of right pleural effusion. Probable small to moderate-sized residual pleural effusion. Left lung base atelectasis. Fishing Rod Marker: PSCB Transcribe Date/Time: Mar 11 2022 2:45P Dictated by : DWIGHT MOSCOSO MD This examination was interpreted and the report reviewed and electronically signed by: DWIGHT MOSCOSO MD on Mar 11 2022 2:47PM EST [id number] Normal [facility] XR CHEST 2V FRONTAL/LATon [facility] XR Chest PA and Lateralon IMPRESSION: Moderately large right pleural effusion with subjacent opacity. Fishing Rod [facility] Transcribe Date/Time: Feb 26 2022 12:36P Dictated by : COURTNEY DOWNS MD This examination was interpreted and the report reviewed and electronically signed by: COURTNEY DOWNS MD on Feb 26 2022 12:47PM EST DIVISION OF RADIOLOGY * * *Final Report* * * DATE OF EXAM: Feb 26 2022 12:11PM WOX 5291 - XR CHEST 2V FRONTAL/LAT / PROCEDURE REASON: Shortness of breath * * * * Physician Interpretation * * * * EXAMINATION: CHEST RADIOGRAPH (2 VIEW FRONTAL & LATERAL) CLINICAL HISTORY: Shortness of breath MQ: XC2_6 EXAM DATE/TIME: 02/26/2022 12:11 PM COMPARISON: Chest x-ray dated February 14, 2022 RESULT: Lines, tubes, and devices: Left transvenous pacemaker/AICD with leads projecting over the right-sided cardiac chambers. Left subclavian vascular stent. Lungs and pleura: Moderately large right pleural effusion with subjacent opacity. No pneumothorax. Cardiomediastinal silhouette: Evaluation degraded by obscuring with right-sided borders. Bones and soft tissues: Stable appearance of the osseous structures. Sclerotic density projects over the right scapular region. DIVISION OF RADIOLOGY Provider, Mary Ann Carbone - 02/26/2022 * * *Final Report* * * DATE OF EXAM: Feb 26 2022 12:11PM WOX 5291 - XR CHEST 2V FRONTAL/LAT / PROCEDURE REASON: Shortness of breath * * * * Physician Interpretation * * * * EXAMINATION: CHEST RADIOGRAPH (2 VIEW FRONTAL & LATERAL) CLINICAL HISTORY: Shortness of breath MQ: XC2_6 EXAM DATE/TIME: 02/26/2022 12:11 PM COMPARISON: Chest x-ray dated February 14, 2022 RESULT: Lines, tubes, and devices: Left transvenous pacemaker/AICD with leads projecting over the right-sided cardiac chambers. Left subclavian vascular stent. Lungs and pleura: Moderately large right pleural effusion with subjacent opacity. No pneumothorax. Cardiomediastinal silhouette: Evaluation degraded by obscuring with right-sided borders. Bones and soft tissues: Stable appearance of the osseous structures. Sclerotic density projects over the right scapular region. IMPRESSION IMPRESSION: Moderately large right pleural effusion with subjacent opacity. Fishing Rod Marker: HENRY Transcribe Date/Time: Feb 26 2022 12:36P Dictated by : COURTNEY DOWNS MD This examination was interpreted and the report reviewed and electronically signed by: COURTNEY DOWNS MD on Feb 26 2022 12:47PM EST [facility] Radiology Study observation (narrative) [facility] XR Chest PA and LateralOrder ed By: Ccf Provider on 02-26-[address] [facility] ALLIED HEALTHon 02-14-2022 ALLIED HEALTH HNO ID: [id number] Author: RT Gracie(R) Service: Radiology Author Type: Technologist Type: Allied Health Filed: 02/14/2022 11:52 AM Note Text: Radiology Service Progress Note PATIENT NAME: Carlitos Sweeney DATE OF SERVICE: February 14, 2022 TIME: 11:51 AM PATIENT IDENTITY VERIFICATION COMPLETED USING TWO (2) IDENTIFIERS: Name and Date of confirmed by patient verbally and Name and Date of confirmed by identification band. FALL SCREENING: Has the patient had 2 falls in the last year or 1 fall with injury or currently using an Ambulatory Assistive Device (Walker, Cane, Wheelchair, Crutches, etc.)? No PATIENT GENDER DATA: Male PATIENT RELEVANT IMPLANT DATA REVIEWED: Not Applicable RADIOLOGY DEPARTMENT: General X-ray: Exam(s) Completed: Chest X-Ray PERIPHERAL IV DATA: Not applicable SIGNED BY: DUC TSANG RT(R) February 14, 2022 11:51 AM Normal [facility] BF MANUAL DIFFon 02-14-2022 Diff Total Body Fluid 100 cells counted [facility] Eosin%, BF 1 % [facility] Lymph%, BF 53 % High 18 - 36 % [facility] Macro%, BF 24 % Low 64 - 80 % [facility] Meso%, BF 15 % High 0 - 2 % [facility] [place]%, BF 6 % [facility] Neut%, BF 1 % 0 - 1 % [facility] DIF TTL, BODY FLUID 100 cells counted Normal [facility] Comment on above: Order Comment: Speci men Type: BODY FLUID SAMPLEOrdering Facility: [facility] Address: [address] [place] [address] Performed By: #### C CBF, [id number] ####[facility] LABORATORYCLIA [id number] [address] OF [place] EOSIN%, BF 1 % Normal [facility] Comment on above: Order Comment: Speci men Type: BODY FLUID SAMPLEOrdering Facility: [facility] Address: [address] [place] [address] Performed By: #### C CBF, [id number] ####[facility] LABORATORYCLIA [id number] [place] [address] [place] LYMPH%, BF 53 % High 18-36 [facility] Comment on above: Order Comment: Speci men Type: BODY FLUID SAMPLEOrdering Facility: [facility] Address: [address] [place] [address] Performed By: #### C CBF, [id number] ####[facility]ORATORYCLIA [id number] [address] MACRO%, BF 24 % Low 64-80 [facility] Comment on above: Order Comment: Speci men Type: BODY FLUID SAMPLEOrdering Facility: [facility] Address: [address] [place] [address] Performed By: #### C CBF, [id number] ####[facility] LABORATORYCLIA [id number] [address] OF [place] MESO %, BF 15 % High 0-2 [facility] Comment on above: Order Comment: Speci men Type: BODY FLUID SAMPLEOrdering Facility: [facility] Address: [address] [place] [address] Performed By: #### C CBF, [id number] ####[facility]ATORYCLIA [id number] [address] MONO% BF 6 % Normal [facility] Comment on above: Order Comment: Speci men Type: BODY FLUID SAMPLEOrdering Facility: [facility] Address: [address] [place] [address] Performed By: #### C CBF, [id number] ####[facility]ORATORYCLIA [id number] [address] NEUT%, BF 1 % Normal 0-1 [facility] Comment on above: Order Comment: Speci men Type: BODY FLUID SAMPLEOrdering Facility: [facility] Address: [address] [place] [address] Performed By: #### C CBF, [id number] ####[facility]ORATORYCLIA [id number] [address] BODY FLUID CELL COUNTon 08-2 Clarity (Unsp spec) Not Indicated Normal Clear [facility] Comment on above: Order Comment: Speci men Type: BODY FLUID SAMPLEOrdering Facility: [facility] Address: [address] [place] [address] Performed By: #### C CBF, [id number] ####[facility]ATORYCLIA [id number] [address] Color (Body fld) Not Indicated Normal Yellow [facility] Comment on above: Order Comment: Speci men Type: BODY FLUID SAMPLEOrdering Facility: [facility] Address: [address] [place] [address] Performed By: #### C CBF, [id number] ####[facility] LABORATORYCLIA [id number] [address] RBC Manual cnt (Body fld) [#/Vol] <2000 Normal <2000 [facility] Comment on above: Order Comment: Speci men Type: BODY FLUID SAMPLEOrdering Facility: [facility] Address: [address] [place] [address] Performed By: #### C CBF, [id number] ####[facility] LABORATORYCLIA [id number] [address] Specimen source Nom (Body fld) Pleural Normal [facility] Comment on above: Order Comment: Speci men Type: BODY FLUID SAMPLEOrdering Facility: [facility] Address: [address] [place] [address] Performed By: #### C CBF, [id number] ####[facility] LABORATORYCLIA [id number] [address] WBC Manual cnt (Body fld) [#/Vol] 243 /uL Normal <1000 [facility] Comment on above: Order Comment: Speci men Type: BODY FLUID SAMPLEOrdering Facility: [facility] Address: [address] [place] [address] Performed By: #### C CBF, [id number] ####[facility] LABORATORYCLIA [id number] [address] Clarity (Unsp spec) Clear Clear [facility] Clarity (Unsp spec) Not Indicated Clear [facility] Color (Body fld) Yellow Yellow [facility] Color (Body fld) Not Indicated Yellow [facility] RBC Manual cnt (Body fld) [#/Vol] <2,000 /uL [facility] Specimen source Nom (Body fld) Pleural [facility] WBC Manual cnt (Body fld) [#/Vol] 243 /uL <1,000 /uL [facility] BRIEF OP NOTon 02-14-2022 BRIEF OP NOT HNO ID: [id number] Author: Keyla Lemons APRN.CNP Service: Interventional Radiology Author Type: Nurse Practitioner Type: Brief Op Note Filed: 02/14/2022 11:35 AM Note Text: BRIEF OPERATIVE / PROCEDURE NOTE LOG ID: [id number] SURGERY/PROCEDURE DATE: 02/14/2022 SURGEON(S)/PROCEDURALIST(S ) AND SILK SCREEN ETCHER(S): Surgeon(s) and Role: Keyla Lemons CNP * Thor Olivo APRN.MANUFACTURING COORDINATOR - Primary No Additional Staff SURGERY/PROCEDURE(S): R thoracentesis ANESTHESIA: Local FINDINGS: 1.5L of clear yellow fluid removed. Thoracentesis stopped due to chest pain and coughing, patient unable to tolerate further fluid removal. Large pleural effusion remaining. ESTIMATED BLOOD LOSS: 0 ml SPECIMENS: Sent to lab COMPLICATIONS: None PRE-OP/PRE-PROCEDURE DIAGNOSIS: pleural effusion POST-OP/POST-PROCEDURE DIAGNOSIS: Same as Preop SIGNATURE: Keyla Lemons APRN.CNP PATIENT NAME: Carlitos Sweeney DATE: February 14, 2022 TIME: 11:33 AM Normal [facility] Bacteria Fld Culton 02-15-20 22 Bacteria identified Cx Nom (Body fld) No growth 5 days Normal [facility] Comment on above: Order Comment: Speci men Type: MICROBIAL ISOLATEOrdering Facility: [facility] Address: [address] [place] [address] Performed By: #### 6 11-4 ####[facility] LABORATORYCLIA [id number] [address] STATES OF [facility] Bacteria identified Cx Nom ( Body fld)on 02-14-2022 Microscopic observation Smear Nom (Unsp spec) Normal [facility] Comment on above: Order Comment: Speci men Type: MICROBIAL ISOLATEOrdering Facility: [facility] Address: [address] [place] [address] Result Comment: No o rganisms seen Few Polymorphonuclear leukocytes Performed By: #### 6 11-4 ####[facility] LABORATORYCLIA [id number] [place] [address] [place] [address] CHEST WO IVCONon 02-15-20 CT CHEST WO IVCON * * *Final Report* * * DATE OF EXAM: Feb 14 2022 11:57AM [facility] 0541 - CT CHEST WO IVCON / PROCEDURE REASON: Recurrent right pleural effusion * * * * Physician Interpretation * * * * EXAMINATION: CHEST CT WITHOUT CONTRAST CLINICAL HISTORY: Recurrent right pleural effusion Technique: Spiral CT acquisition of the chest from the thoracic inlet to the upper abdomen without contrast. MQ: CTCWO_6 CT Radiation dose: Integrated Dose-length product (DLP) for this visit = 227 mGy*cm CT Dose Reduction Employed: mAs-kVp adjusted based on patient size-age Comparison: CT of the chest 02/11/2022 and prior RESULT: Limitations: None. Lines, tubes, and devices: Left chest wall pacer/AICD with leads terminating in the right atrium and right ventricle. Lung parenchyma and airways: Improved aeration of the right upper and Results, persistent and subpleural consolidation in the dependent portion of the lateral right middle lobe and basal segments of the right lower lobe, likely a combination of passive atelectasis and scarring. No suspicious nodularity. There is a 0.6 cm nodule with extrinsic calcification and intramural tract in the superior lingula, possibly the sequela of prior inflammation although not including the bjuqv-ng-ahnt of prior studies. The central airways are patent. Pleural space: Mediastinal fat stranding reflecting congestive changes. Status post right thoracentesis with significantly decreased pleural effusion and mild to moderate residual fluid in the right lung base. A few pleural-based calcifications in the right maxillary region likely related to chronic inflammation as noted on prior exams. Trace left pleural effusion and minimal basilar hypoventilation, as noted on 02/11. Lower neck, lymph nodes, and mediastinum: The imaged thyroid gland is normal. No lymphadenopathy in the supraclavicular, axillary, mediastinal, or hilar regions. Heart, pericardium, and thoracic vessels: Short segment of narrowing at the right brachiocephalic trunk, as noted on prior exams. The thoracic aorta and main pulmonary artery are normal in caliber. Moderate cardiomegaly. Severe coronary artery atherosclerotic calcifications are noted, although the study is not optimized for coronary assessment. No pericardial effusion or thickening. Bones and soft tissues: Diffuse subcutaneous edema reflecting congestive changes. Prominent subcutaneous veins in the interpolar region, possibly related to chronic narrowing of the brachiocephalic trunk as noted on the angiogram of 12/2020. No acute osseous abnormalities. Upper abdomen: Partially imaged atrophic left kidney. No acute abnormalities in the visualized portions of the upper abdomen. Mop Maker (topogram) images: No additional findings. IMPRESSION: 1. Right thoracentesis with moderate residual effusion. Diffuse congestive changes. 2. Improved ventilation of the peroneal persist and atelectatic changes in the basal segments, possibly a combination of basilar atelectasis and scarring. Recommend follow-up to assess for resolution. 3. A 0.6 cm nodularity with coarse calcification in the superior lingula is incompletely characterized. Recommend follow-up CT in 12 months to assess stability. Other chronic findings, as above. Fishing Rod Marker: HENRY Transcribe Date/Time: Feb 14 2022 12:56P Dictated by : EMERY LEVI MD This examination was interpreted and the report reviewed and electronically signed by: EMERY LEVI MD on Feb 14 2022 1:06PM EST [id number] Normal [facility] CYTOLOGY NON-GYNon 2 CASE REPORT Normal [facility] Comment on above: Order Comment: Milad chapman Type: FLUID SAMPLEOrdering Facility: [facility] Address: [address] [place] [address] Result Comment: [facility] Cytology Report Case: [id number] Authorizing Provider: Keyla Lemons, Collected: 02/14/2022 11:27 AM PERFORMANCE INSTRUCTOR.MANUFACTURING COORDINATOR [facility]ing [facility] Received: 02/14/2022 12:54 PM INTERVENTIONAL RADIOLOGY Pathologist: Saira Garcia MD Specimen: PLEURAL FLUID RIGHT Performed By: #### C YTONON ####[facility] LABORATORYCLIA [id number] [place] [id number] [place] CLINICAL HISTORY Normal [facility] Comment on above: Order Comment: Speci men Type: FLUID SAMPLEOrdering Facility: [facility] Address: [address] [place] [address] Performed By: #### C YTONON ####[facility] LABORATORYCLIA [id number] [address] FINAL DIAGNOSIS Normal [facility] Comment on above: Order Comment: Speci men Type: FLUID SAMPLEOrdering Facility: [facility] Address: [address] [place] [address] Result Comment: A - PLEURAL FLUID RIGHT Negative for malignant cells. The following cell blocks were associated with this case: A1Cell Block, Formalin Fixed [place] Performed By: #### C YTONON ####[facility] LABORATORYCLIA [id number] [address] FINAL PERFORMING LAB Normal [facility] Comment on above: Order Comment: Speci men Type: FLUID SAMPLEOrdering Facility: [facility] Address: [address] [place] [address] Result Comment: Tech nical component, family protection specialist screening performed at [facility], [address] [place] [address] CLIA# [id number] Diagnostic interpretation performed at [facility], [address] [place] [address] CLIA# [id number] Stage Electrician Helper: Chi Ascencio M.D. Performed By: #### C YTONON ####[facility] LABORATORYCLIA [id number] [address] GROSS DESCRIPTION Normal [facility] Comment on above: Order Comment: Speci men Type: FLUID SAMPLEOrdering Facility: [facility] Address: [address] [place] [address] Result Comment: A. P LEURAL FLUID RIGHT 1000 cc hazy yellow fluid. ThinPrep and Cell Block prepared. Performed By: #### C YTONON ####[facility] LABORATORYCLIA [id number] [address] OF [facility] GLUCOSE BFLon 02-14-2022 Glucose (Body fld) [Mass/Vol] 107 mg/dL See Comment mg/dL [facility] Glucose Fld-mCncon 2 Glucose (Body fld) [Mass/Vol] 107 mg/dL Normal See Comment [facility] Comment on above: Order Comment: Speci men Type: BODY FLUID SAMPLEOrdering Facility: [facility] Address: [address] [place] [phone] Result Comment: Syno vial fluid: Synovial fluid glucose measurement may be useful in classifying various joint disorders. A concurrent plasma glucose measurement should be performed to determine the glucose plasma minus glucose synovial fluid difference, which is normally <= 10.0 mg/dL. Artificial lowering of synovial fluid glucose, due to glycolytic action of leukocytes, may result from analyses that occur more than one hour from the time of collection. Reference: 1. CLSI. Analysis of Body Fluids in Clinical Chemistry Approved Guideline. CLSI document C49A. DEBBIE Miranda: Clinical Laboratory Standards [place]: 2007. This test was developed and its performance characteristics determined by [facility]'s [facility] Pathology and Laboratory Medicine [place] ([facility]). It has not been cleared or approved by the FDA. -[facility] is regulated under CLIA as qualified to perform high-complexity testing. This test is used for clinical purposes. It should not be regarded as investigational or for research. Performed By: #### 2 344-0, 2529-6, 2881-1 ####[facility] LABCLIA [id number] [facility] [id number] [address] [place] IMAGING GUIDED THORACENTESIS on 02-14-[address] [facility] LDH BODY FLUIDon 02-14-2022 LDH (Body fld) [Catalytic activity/Vol] 115 U/L See Comment U/L [facility] LDH Fld-cCncon 02-14-2022 LDH (Body fld) [Catalytic activity/Vol] 115 U/L Normal See Comment [facility] Comment on above: Order Comment: Speci men Type: BODY FLUID SAMPLEOrdering Facility: [facility] Address: [address] [place] [phone] Result Comment: Pleu ral fluids: Pleural fluid lactate dehydrogenase (LDH) measurements may be useful for classifying pleural effusions as exudates. A ratio of pleural fluid LDH to a concurrent serum LDH > 0.6 is suggestive of exudate. Peritoneal fluids: Ascitic fluid LDH measurements may aid in characterizing secondary peritonitis and should be interpreted along with other clinical and laboratory information. Synovial fluids: Synovial fluid LDH measurements may be useful as an inflammatory marker for various arthritic conditions and should be interpreted along with other clinical and laboratory information. Reference: 1. CLSI. Analysis of Body Fluids in Clinical Chemistry Approved Guideline. CLSI document C49A. DEBBIE Miranda: Clinical Laboratory Standards Woodman: 2007. Reference: 2. Juan Miguel LESLIE, Nicole Vega. Body fluid analysis: clinical utility and applicability of published studies to guide interpretation of today's laboratory testing in serous fluids. Crit Rev Clin Lab Sci, 2013:50(4,5):107 to 124. Reference: 3. Florencio Reese, Tova Vega, Jennifer LESLIE. Lactate dehydrogenase activity and its isoenzymes in serum and synovial fluid of patients with rheumatoid arthritis and osteoarthritis. J Rheumatol. 1992:19:529 to 533. This test was developed and its performance characteristics determined by [facility] [place] ([facility] It has not been cleared or approved by the FDA. -[facility] is regulated under CLIA as qualified to perform high-complexity testing. This test is used for clinical purposes. It should not be regarded as investigational or for research. Performed By: #### 2 344-0, 2529-6, 2881-1 ####[facility] LABCLIA [id number] [place] [address] [place] PH BODY FLUIDon 02-14-2022 pH (Body fld) 7.50 [pH] [facility] PROTEIN BFLon 02-14-2022 Protein (Body fld) [Mass/Vol] 3.4 g/dL See Comment g/dL [facility] Prot Fld-mCncon 02-14-2022 Protein (Body fld) [Mass/Vol] 3.4 g/dL Normal See Comment [facility] Comment on above: Order Comment: Speci men Type: BODY FLUID SAMPLEOrdering Facility: [facility] Address: [address] [place] [phone] Result Comment: Sero us fluids: Effusions are the accumulation of clinically detected fluid in any of the serous cavities. Effusions are further into transudates and exudates, which aid in determining the etiology of the effusion. Transudate: Body fluid total protein measurement < 3.0 g/dL. A ratio of serous fluid total protein to a concurrent serum total protein < 0.5 indicates a transudate. Exudate: Body fluid total protein measurement >= 3.0 g/dL. A ratio of serous fluid total protein to a concurrent serum total protein >= 0.5 indicates an exudate. Reference: 1. CLSI. Analysis of Body Fluids in Clinical Chemistry Approved Guideline. CLSI document C49A. DEBBIE Miranda: Clinical Laboratory Standards [place]: 2007. This test was developed and its performance characteristics determined by [facility] [place] ([facility]). It has not been cleared or approved by the FDA. [facility] is regulated under CLIA as qualified to perform high-complexity testing. This test is used for clinical purposes. It should not be regarded as investigational or for research. Performed By: #### 2 344-0, 2529-6, 2881-1 ####[facility] LABCLIA [id number] [facility] [id number] [place] [address] [place] US THORACENTESIS BIon 2021 US THORACENTESIS BI * * *Final Report* * * DATE OF EXAM: Feb 14 2022 11:30AM AKU 2049 - US THORACENTESIS BI / PROCEDURE REASON: J90 * * * * Physician Interpretation * * * * EXAM TITLE: ULTRASOUND GUIDED RIGHT THORACENTESIS DATE: 02/14/22 COMPARISON: .CT chest from 02/11/22 CLINICAL INDICATION/HISTORY: Pleural effusion TECHNIQUE: Informed consent was obtained from the patient. The patient was placed in an erect position with the arms over a tray table and ultrasound interrogated the right hemithorax. An appropriate skin entrance site was identified, prepped, and anesthetized. Under ultrasound guidance a 5-[place] Islander Yueh needle was passed into the pleural space and fluid was aspirated with the aid of a vacuum bottle. A specimen was sent for laboratory analysis. An image was captured documenting the needle in the pleural space. PPE: Surgical mask, protective eyewear, , and gloves. FINDINGS: Ultrasound reveals a large amount of fluid. 1500 cc of clear yellow fluid was obtained. IMPRESSION: Technically successful ultrasound-guided right thoracentesis yielded 1500 cc of clear yellow fluid which was sent for laboratory analysis. A follow-up chest radiograph will be obtained to determine the presence or absence of pneumothorax. Thoracentesis stopped due to sx:CP and coughing. Patient unable to tolerate further fluid removal. Large pleural effusion remaining. Keyla Lemons CNP under the supervision of Thor Olivo CNP Fishing Rod Marker: HENRY Transcribe Date/Time: Feb 14 2022 12:39P Dictated by : THOR OLIVO CNP This examination was interpreted and the report reviewed and electronically signed by: THOR OLIVO CNP on Feb 14 2022 2:10PM EST [id number] Normal [facility] XR CHEST 1V FRONTALon 2021 XR CHEST 1V FRONTAL * * *Final Report* * * DATE OF EXAM: Feb 14 2022 11:50AM AKX 5290 - XR CHEST 1V FRONTAL / PROCEDURE REASON: Post-operative / post-procedure assessment, symptomatic * * * * Physician Interpretation * * * * EXAMINATION: CHEST RADIOGRAPH (SINGLE VIEW AP OR PA) CLINICAL HISTORY: Post-operative / post-procedure assessment, symptomatic MQ: XC1_5 Comparison: 02/11/2022 RESULT: Lines, tubes, and devices: A left pacemaker remains in place. Lungs and pleura: There has been improvement of the partially loculated right lower chest pleural effusion. There is an ill-defined infiltrate or atelectasis involving the right lower lung.. No evidence of pneumothorax no lung wedge No immediate normalization PA millimeters interval. Cardiomediastinal silhouette: There is mild cardiomegaly. Other: The visualized bony thorax appears unremarkable. IMPRESSION: Improvement without resolution of the right pleural effusion with a right lower lung infiltrate/atelectasis. A follow-up exam is recommended. Fishing Rod Marker: HENRY Transcribe Date/Time: Feb 14 2022 11:53A Dictated by : RAVI ESCOBAR MD This examination was interpreted and the report reviewed and electronically signed by: RAVI ESCOBAR MD on Feb 14 2022 11:57AM EST [id number] Normal [facility] pH (Body fld)on 02-14-2022 Fluid Nom (Body fld) Pleural Normal [facility] Comment on above: Order Comment: Speci men Type: BODY FLUID SAMPLEOrdering Facility: [facility] Address: [address] [place] [address] Performed By: #### 2 748-2 ####[facility] LABORATORYCLIA [id number] [place] [address] [place] Fluid Nom (Body fld) Pleural [facility] pH Fldon 02-14-2022 pH (Body fld) 7.50 [pH] Normal [facility] Comment on above: Order Comment: Speci men Type: BODY FLUID SAMPLEOrdering Facility: [facility] Address: [address] [place] [address] Result Comment: No r eference range has been established for this specimen type. Performed By: #### 2 748-2 ####[facility] LABORATORYCLIA [id number] [place] [address] [place] Comprehensive metabolic 2000 panelon 02-12-2022 Albumin [Mass/Vol] 4.4 g/dL Normal 3.9-4.9 [facility] Comment on above: Order Comment: Speci men Type: BLOOD SPECIMENOrdering Facility: [facility] Address: [address] [place] [address] Performed By: #### 2 532-0, 96184-9 ####[facility] LABORATORYCLIA [id number] [address] [place] ALP [Catalytic activity/Vol] 76 U/L Normal 38-113 [facility] Comment on above: Order Comment: Speci men Type: BLOOD SPECIMENOrdering Facility: [facility] Address: [address] [place] [address] Performed By: #### 2 532-0, 19339-3 ####[facility] LABORATORYCLIA [id number] [address] OF [facility] ALT With P-5'-P [Catalytic activity/Vol] 17 U/L Normal 10-54 [facility] Comment on above: Order Comment: Speci men Type: BLOOD SPECIMENOrdering Facility: [facility] Address: [address] [place] [address] Performed By: #### 2 532-0, 51856-2 ####[facility] LABORATORYCLIA [id number] [address] [place] Anion gap [Moles/Vol] 17 mmol/L Normal 9-18 [facility] Comment on above: Order Comment: Speci men Type: BLOOD SPECIMENOrdering Facility: [facility] Address: [address] [place] [address] Performed By: #### 2 532-0, 88478-9 ####[facility] LABORATORYCLIA [id number] [address] [place] AST With P-5'-P [Catalytic activity/Vol] 18 U/L Normal 14-40 [facility] Comment on above: Order Comment: Speci men Type: BLOOD SPECIMENOrdering Facility: [facility] Address: [address] [place] [address] Performed By: #### 2 532-0, 91079-3 ####[facility] LABORATORYCLIA [id number] [address] [place] Bilirubin [Mass/Vol] 0.4 mg/dL Normal 0.2-1.3 [facility] Comment on above: Order Comment: Speci men Type: BLOOD SPECIMENOrdering Facility: [facility] Address: [address] [place] [address] Performed By: #### 2 532-0, 10109-9 ####[facility] LABORATORYCLIA [id number] [address] STATES OF [facility] Calcium [Mass/Vol] 8.6 mg/dL Normal 8.5-10.2 [facility] Comment on above: Order Comment: Speci men Type: BLOOD SPECIMENOrdering Facility: [facility] Address: [address] [address] Performed By: #### 2 532-0, 39410-3 ####[facility] LABORATORYCLIA [id number] [address] [place] Chloride [Moles/Vol] 94 mmol/L Low 97-105 [facility] Comment on above: Order Comment: Speci men Type: BLOOD SPECIMENOrdering Facility: [facility] Address: [address] [place] [address] Performed By: #### 2 532-0, 68313-9 ####[facility] LABORATORYCLIA [id number] [address] [place] CO2 [Moles/Vol] 29 mmol/L Normal 22-30 [facility] Comment on above: Order Comment: Speci men Type: BLOOD SPECIMENOrdering Facility: [facility] Address: [address] [place] [address] Performed By: #### 2 532-0, 73880-6 ####[facility] LABORATORYCLIA [id number] [address] [place] Creatinine [Mass/Vol] 9.43 mg/dL High 0.73-1.22 [facility] Comment on above: Order Comment: Speci men Type: BLOOD SPECIMENOrdering Facility: [facility] Address: [address] [place] [address] Performed By: #### 2 532-0, 74767-3 ####[facility] LABORATORYCLIA [id number] [address] ESTIMATED GLOMERULAR FILTRATION RATE 6 mL/min/1.73m??? Low >=60 [facility] Comment on above: Order Comment: Speci men Type: BLOOD SPECIMENOrdering Facility: [facility] Address: [address] [place] [address] Result Comment: Deanna mated Glomerular Filtration Rate (eGFR) is calculated using the 2020 CKD-EPI creatinine equation. This equation utilizes serum creatinine, sex, and age as parameters. The creatinine assay has traceable calibration to isotope dilution-mass spectrometry. Refer to KDIGO guidelines for clinical interpretation. In patients with unstable renal function, e.g. those with acute kidney injury, the eGFR may not accurately reflect actual GFR. Performed By: #### 2 532-0, 10073-8 ####[facility] LABORATORYCLIA [id number] [place] [address] [place] Glucose [Mass/Vol] 153 mg/dL High 74-99 [facility] Comment on above: Order Comment: Milad chapman Type: BLOOD SPECIMENOrdering Facility: [facility] Address: [address] [place], [place] [phone] Result Comment: The [place] Diabetes Association (ADA) provides guidance for cutoff values for fasting glucose and random glucose. The ADA defines fasting as no caloric intake for at least 8 hours. Fasting plasma glucose results between 100 to 125 mg/dL indicate increased risk for diabetes (prediabetes). Fasting plasma glucose results greater than or equal to 126 mg/dL meet the criteria for diagnosis of diabetes. In the absence of unequivocal hyperglycemia, results should be confirmed by repeat testing. In a patient with classic symptoms of hyperglycemia or hyperglycemic crisis, random plasma glucose results greater than or equal to 200 mg/dL meet the criteria for diagnosis of diabetes. Reference: Standards of Medical Care in Diabetes 2016, [place] Diabetes Association. Diabetes Care. 2016.39(Suppl 1). Performed By: #### 2 532-0, 02065-3 ####[facility] LABORATORYCLIA [id number] [place] [address] [place] Potassium [Moles/Vol] 5.4 mmol/L High 3.7-5.1 [facility] Comment on above: Order Comment: Milad chapman Type: BLOOD SPECIMENOrdering Facility: [facility] Address: [address] [phone] Performed By: #### 2 532-0, 45168-4 ####[facility] LABORATORYCLIA [id number] [place] [address] [place] Protein [Mass/Vol] 7.1 g/dL Normal 6.3-8.0 [facility] Comment on above: Order Comment: Milad chapman Type: BLOOD SPECIMENOrdering Facility: [facility] Address: [address] [place], [place] [phone] Performed By: #### 2 532-0, 97559-2 ####[facility] LABORATORYCLIA [id number] [place] [address] [place] Sodium [Moles/Vol] 140 mmol/L Normal 136-144 [facility] Comment on above: Order Comment: Speci men Type: BLOOD SPECIMENOrdering Facility: [facility] Address: [address] [place] [address] Performed By: #### 2 532-0, 30716-1 ####[facility] LABORATORYCLIA [id number] [place] [address] [place] Urea nitrogen [Mass/Vol] 45 mg/dL High 9-24 [facility] Comment on above: Order Comment: Speci men Type: BLOOD SPECIMENOrdering Facility: [facility] Address: [address] [place] [address] Performed By: #### 2 532-0, 04523-2 ####[facility] LABORATORYCLIA [id number] [place] [address] [place] EMERGENCY REPORTon 2 EMERGENCY REPORT [facility] EMERGENCY ROOM REPORT NAME ACCOUNT SEX AGE ADMIT DISCHARGE PT MED. RECORD# NUMBER DATE DATE TYPE CARLITOS SWEENEY [id number] M 46 02/11/22 02/11/22 3 [id number] ROOM: ER DATE OF : 1975 DICTATING PHYSICIAN: Serena Ascencio HISTORY OF PRESENT ILLNESS: The patient came in complaining of right-sided chest pain. He denies any injuries. He said the pain was a 10 out of 10, and he could not tolerate it. He had a fever last week, which he was actually admitted to the hospital for. He denied any shortness of breath. PAST MEDICAL HISTORY: He does have a history of COPD, anxiety, and depression. He is taking dialysis, and is scheduled for dialysis in the morning. He has a history of anemia, hypertension, kidney disease. PAST SURGICAL HISTORY: He has had 2 kidney transplants. He has had a pacemaker defibrillator. He has also had a cholecystectomy. SOCIAL HISTORY: He does smoke. He denies alcohol use. REVIEW OF SYSTEMS: Ten systems reviewed and negative except as mentioned above. PHYSICAL EXAMINATION: GENERAL: He is an awake, alert, and oriented male in no acute distress. VITAL SIGNS: He is afebrile. Pulse 96, respirations 18, blood pressure 188/112, and pulse oximetry 97% on room air. HEENT: Head is normocephalic and atraumatic. Eyes: Pupils are equal, round, and reactive to light. Extraocular muscles are intact. Nares are patent. Throat has adequate oral moisture. Uvula is midline. NECK: Neck is supple without petechiae or rash. HEART: Heart is regular rate and rhythm without murmur. S1 equals S2. No S3 or S4 appreciated. LUNGS: Lungs are clear to auscultation bilaterally. No rales, rhonchi, or retractions. ABDOMEN: Abdomen is soft, nontender, and nondistended. SKIN: Skin is warm and dry. DIAGNOSTIC DATA: The patient's chemistries are unremarkable other than he does have a BUN of 57, creatinine 10.9. Potassium is 5.4. Troponin is 75. White count is 5000, H&H 8.9 and 30. The patient had a chest x-ray that showed effusion. I did a CT, and it showed an effusion also. EMERGENCY DEPARTMENT COURSE AND TREATMENT: I did want to admit him to the hospital. We were going to see if Arjun could handle this. He needs a pulmonary Page 1 of 2 CARLITOS SWEENEY Emergency Room Report CARLITOS SWEENEY : 1975 consult, may be a thoracic surgeon consult, and also a place where they do dialysis, which we cannot do. He says he really does not feel that bad. He does not really feel short of breath. I did give him 0.5 mg of Dilaudid initially when he came in. He was here for several hours. PLAN/DISPOSITION: He says he is going to leave against medical advice, and I told him to return if any problems or concerns. He will be discharged in stable condition leaving against medical advice. Dictated By: Serena Ascencio DO 02/11/22 06:41 JOB #: [id number] Transcribed By: am 02/11/22 11:26 Electronically signed by: DEBBY Ascencio DO 02/12/22 09:22 Page 2 of 2 ZAHRA CARLITOS K Emergency Room Report Normal [facility] LDH SerPl-cCncon 02-12-2022 LDH [Catalytic activity/Vol] 191 U/L Normal 135-225 [facility] Comment on above: Order Comment: Speci men Type: BLOOD SPECIMENOrdering Facility: [facility] Address: [address] [place] [phone] Performed By: #### 2 532-0, 12579-5 ####[facility] LABORATORYCLIA [id number] [place] [address] [place] [facility] CBC + DIFFon 02-11-2022 Baso # 0.20 x10EE3/UL High 0.00 - 0.10 [facility] Comment on above: Performed By: #### 2 41786 #### [facility],[address] [place] [address] Basophils/100 WBC (Bld) 2.9 % High 0.0 - 2.0 [facility] Comment on above: Performed By: #### 2 66238 #### [facility],[address] [place] [address] CBC + DIFF Normal [facility] Comment on above: Result Comment: CBC- COMPLETE BLOOD COUNT Performed By: #### 2 60844 #### [facility],[address] [place] [address] EO # 0.20 x10EE3/UL Normal 0.00 - 0.50 [facility] Comment on above: Performed By: #### 2 30022 #### [facility],[address] [place] [address] Eosinophils/100 WBC (Bld) 3.7 % Normal 0.0 - 7.0 [facility] Comment on above: Performed By: #### 2 06152 #### [facility],[address] [place] [address] Erythrocyte distribution width (RBC) [Ratio] 16.0 % High 12.0 - 15.6 [facility] Comment on above: Performed By: #### 2 04243 #### [facility],[address] [place], [place] [phone] Hematocrit (Bld) [Volume fraction] 30.6 % Low 40.0 - 52.0 [facility] Comment on above: Performed By: #### 2 17917 #### [facility],[address] [place] [address] Hemoglobin (Bld) [Mass/Vol] 9.8 g/dL Low 13.0 - 17.5 [facility] Comment on above: Performed By: #### 2 31041 #### [facility],[address] [place] [address] Lymph # 0.90 x10EE3/UL Normal 0.80 - 2.80 [facility] Comment on above: Performed By: #### 2 09703 #### [facility],[address] [place] [address] Lymphocytes/100 WBC (Bld) 16.2 % Low 20.0 - 45.0 [facility] Comment on above: Performed By: #### 2 20947 #### [facility],[address] [place], [place] [phone] MANUAL DIFF N/A Normal [facility] Comment on above: Performed By: #### 2 13939 #### [facility],[address] [place], [place] [phone] MCH (RBC) [Entitic mass] 28 pg Normal 27 - 33 [facility] Comment on above: Performed By: #### 2 27432 #### [facility],[address] [place] [address] MCHC 32 X10 3 Normal 32 - 36 [facility] Comment on above: Performed By: #### 2 89918 #### [facility],[address] [place] [address] MCV (RBC) [Entitic vol] 86 fL Normal 81 - 98 [facility] Comment on above: Performed By: #### 2 67543 #### [facility],[address] [place] [address] [place] # 0.50 x10EE3/UL Normal 0.20 - 1.00 [facility] Comment on above: Performed By: #### 2 24770 #### [facility],[address] [place] [address] MONOS % 9.5 % Normal 0.0 - 10.0 [facility] Comment on above: Performed By: #### 2 56610 #### [facility],[address] [place] [address] Morphology Jose (Bld) [Interp] N/A Normal [facility] Comment on above: Result Comment: {CD] Performed By: #### 2 68502 #### [facility],[address] [place] [address] Neut # 3.70 x10EE3/UL Normal 1.50 - 7.10 [facility] Comment on above: Performed By: #### 2 62155 #### [facility],[address] [place] [address] Neutrophils/100 WBC (Bld) 67.7 % Normal 46.0 - 76.0 [facility] Comment on above: Performed By: #### 2 83698 #### [facility],[address] [place] [address] PLATELET 251 x10EE3/UL Normal 150 - 450 [facility] Comment on above: Performed By: #### 2 56579 #### [address] [address] Platelet mean volume (Bld) [Entitic vol] 6.9 fL Normal 6.4 - 10.5 [facility] Comment on above: Result Comment: AUTO MATED DIFFERENTIAL Performed By: #### 2 69068 #### [facility],[address] [place] [address] RBC 3.55 x 10EE6/UL Low 4.50 - 6.00 [facility] Comment on above: Performed By: #### 2 92079 #### [facility],[address] [place] [address]75 WBC 5.4 x 10EE3/UL Normal 4.5 - 10.8 [facility] Comment on above: Performed By: #### 2 65719 #### [facility],[address] [place] [address] CHEST 2 VIEWSon 02-11-2022 CHEST 2 VIEWS [place] [id number] Patient: CARLITOS SWEENEY Phone#: : 1975 Age: 46 Gender: M Pt. Type: ER Account: [id number] Location: [facility] Ordering: SERENA ASCENCIO Exam Date: 02/11/2022/0:16 Family Phys: TOM CONTE Charge Code: [id number] Physician: Laurens Order #: [id number] DLP Dose#: PROCEDURE: X-RAY CHEST 2 VIEWS COMPARISON: [facility], XR, CHEST 1 VIEW, 02/03/2022, 22:46. INDICATIONS: Shortness of breath. FINDINGS: LUNGS: Normal. No significant pulmonary parenchymal abnormalities. VASCULATURE: Normal. Unremarkable pulmonary vasculature. CARDIAC: Mild stable cardiomegaly. MEDIASTINUM: Calcifications present at the aortic arch. PLEURA: Moderate size left pleural effusion is present extending to the level of the hilum and unchanged from prior exam. There is minimal blunting of the left costophrenic angle consistent with small effusion. BONES: Normal. No fracture or visible bony lesion. OTHER: Cardiac pacing device is present. CONCLUSION: 1. Bilateral pleural effusions larger on the right and similar to prior exam. Dictated by: Kady Gonzales MD on 02/11/2022 at 8:14 Approved by: Kady Gonzales MD on 02/11/2022 at 8:15 Normal [facility] CMP with eGFRon 02-11-2022 AGE 46 years Normal [facility] Comment on above: Performed By: #### 2 43229 #### [facility],[address] [place] [address] Albumin [Mass/Vol] 3.7 g/dL Normal 3.4 - 5.0 [facility] Comment on above: Performed By: #### 2 84394 #### [facility],[address] [place] [address] Albumin/Globulin [Mass ratio] 0.8 {ratio} Low 0.9 - 1.6 [facility] Comment on above: Performed By: #### 2 28376 #### [facility],[address] [place] [address]70 ALK PHOS 81 U/L Normal 46 - 116 [facility] Comment on above: Performed By: #### 2 98960 #### [facility] / [facility],[address] [place] [address] 14751 ALT [Catalytic activity/Vol] 27 U/L Normal 16 - 63 [facility] Comment on above: Performed By: #### 2 71418 #### [facility],[address] [place] [address] 49919 Anion gap [Moles/Vol] 18 mmol/L Normal 10 - 20 [facility] Comment on above: Performed By: #### 2 33799 #### [facility],[address] [place] [address] 08425 AST [Catalytic activity/Vol] 21 U/L Normal 15 - 37 [facility] Comment on above: Performed By: #### 2 82665 #### [facility],[address] [place] [address] 75736 B/C RATIO 5 ratio Normal 0 - 30 [facility] Comment on above: Performed By: #### 2 83198 #### [facility],[address] [place] [address] 92466 Bilirubin [Mass/Vol] 0.6 mg/dL Normal 0.2 - 1.0 [facility] Comment on above: Performed By: #### 2 82151 #### [facility],[address] [place] [address] 82625 Calcium [Mass/Vol] 8.1 mg/dL Low 8.5 - 10.1 [facility] Comment on above: Performed By: #### 2 05897 #### [facility],[address] [place] [address] 89267 Chloride [Moles/Vol] 96 mmol/L Low 98 - 107 [facility] Comment on above: Performed By: #### 2 61680 #### [facility],[address] [place] [address] 32333 CMP with eGFR Normal [facility] Comment on above: Result Comment: COMP REHENSIVE METABOLIC PANEL Performed By: #### 2 81282 #### [facility],[address] [place] [address] 27519 CO2 [Moles/Vol] 31.4 mmol/L Normal 21.0 - 32.0 [facility] Comment on above: Performed By: #### 2 12190 #### [facility],[address] [place] [address] 85102 Creatinine [Mass/Vol] 10.91 mg/dL High 0.70 - 1.30 [facility] Comment on above: Performed By: #### 2 98725 #### [facility],[address] [place] [address] 09074 eGFR 5 ML/MINUTE Low 60 - 999 [facility] Comment on above: Performed By: #### 2 09204 #### [facility],[address] [place] [address] 23977 eGFR(AA) 6 ML/MINUTE Low 60 - 999 [facility] Comment on above: Result Comment: ACCO RDING TO THE NATIONAL KIDNEY DISEASE EDUCATION PROGRAM(NKDE), A NORMAL eGFR IS A VALUE GREATER THAN OR EQUAL TO 60 ML/MIN/1.73 SQ METERS. CHRONIC KIDNEY DISEASE: <60mL/MIN/1.73 SQ METERS KIDNEY FAILURE: <15mL/MIN/1.73 SQ METERS THIS TEST SHOULD ONLY BE USED FOR PATIENTS 18 YEARS OF AGE AND OLDER. Performed By: #### 2 41341 #### [facility],[address] [place] [address] 06541 Globulin (S) [Mass/Vol] 4.4 g/dL High 1.5 - 3.8 [facility] Comment on above: Performed By: #### 2 04075 #### [facility],[address] [place] [address] 45646 Glucose [Mass/Vol] 91 mg/dL Normal 74 - 106 [facility] Comment on above: Performed By: #### 2 45976 #### [facility],[address] [place] [address] 68806 Potassium [Moles/Vol] 5.4 mmol/L High 3.5 - 5.1 [facility] Comment on above: Performed By: #### 2 14921 #### [facility],[address] [place] [address] 90564 Protein [Mass/Vol] 8.1 g/dL Normal 6.4 - 8.2 [facility] Comment on above: Performed By: #### 2 08272 #### [facility],[address] [place] [address] 61693 Sodium [Moles/Vol] 140 mmol/L Normal 136 - 145 [facility] Comment on above: Performed By: #### 2 83816 #### [facility],[address] [place] [address] 43301 Urea nitrogen [Mass/Vol] 57 mg/dL High 7 - 18 [facility] Comment on above: Performed By: #### 2 56802 #### [facility],[address] [place] [address] CHEST/ABD/PELVIS C-on CT CHEST/ABD/[place] [address] Patient: CARLITOS SWEENEY Phone#: : 1975 Age: 46 Gender: M Pt. Type: ER Account: [id number] Location: 052 Ordering: [facility] Exam Date: 02/11/2022/0:52 Family Phys: TOM CONTE Charge Code: 953251 Physician: Laurens Order #: [id number] DLP Dose#: 6.20 PROCEDURE: CT CHEST/ABD/PELVIS WO COMPARISON: None. INDICATIONS: Abdominal pain. TECHNIQUE: CT images were obtained without the administration of intravenous contrast material. All CT scans at this facility use dose modulation, iterative reconstruction, and/or weight based dosing when appropriate to reduce radiation dose to as low as reasonably achievable. IV CONTRAST: No IV contrast used,0ml TOTAL DOSE: 6.20 CTDIvol(mGy) FINDINGS: LUNGS: Normal. No visible pulmonary disease. VASCULATURE: Normal. Thrombus cannot be excluded without intravenous contrast. CELESTINO: Normal. No mass or adenopathy. MEDIASTINUM: Normal. No mass or adenopathy. CARDIAC: Coronary artery calcification is present. PLEURA: Large right-sided pleural effusion is present. There is compression atelectasis in the right middle and right lower lobes underlying infiltrate cannot be excluded. CHEST WALL: Normal. No mass or axillary adenopathy. LIVER: Normal. No enlargement, atrophy, abnormal density, or significant focal lesion. BILIARY: Normal. No visible dilatation or calcification. PANCREAS: Normal. No lesion, fluid collection, ductal dilatation, or atrophy. SPLEEN: Normal. No enlargement or focal lesion. Continued Report - Page 2 of 2 Patient: CARLITOS SWEENEY Phone#: : 1975 Age: 46 Gender: M Pt. Type: ER Account: [id number] Location: 052 Ordering: [facility] Exam Date: 02/11/2022/0:52 Family Phys: TOM CONTE Charge Code: [id number] Physician: Laurens Order #: [id number] DLP Dose#: 6.20 KIDNEYS: The right kidney is not identified. Markedly atrophic left kidney is present. There are dense calcifications in the pelvis bilaterally of questionable origin. Possibility atrophy in calcified renal transplants is raised. ADRENALS: Normal. No mass or enlargement. AORTA/VASCULAR: Normal. No aneurysm. RETROPERITONEUM: Normal. No mass or adenopathy. BOWEL/MESENTERY: There is moderate stool retention. ABDOMINAL WALL: Normal. No mass or hernia. URINARY BLADDER: Normal. No visible focal wall thickening, lesion, or calculus. PELVIC NODES: Normal. No adenopathy. PELVIC ORGANS: Normal. No visible mass. Pelvic organs appropriate for patient age. BONES: Normal. No bony lesion or fracture. OTHER: Cardiac pacing device is present. There is mesenteric and subcutaneous abdominal wall edema CONCLUSION: 1. Marked left renal atrophy. The right kidney is not identified. Amorphous calcifications are present in the pelvis bilaterally of questionable etiology. 2. Anasarca. 3. Large right pleural effusion. Dictated by: Kady Gonzales MD on 02/11/2022 at 8:29 Approved by: Kady Gonzales MD on 02/11/2022 at 8:55 Normal [facility] TROPONIN I, HIGH SENSITIVITY on 02-11-2022 HS TROPONIN 75.9 pg/mL Normal 0.0 - 76.2 [facility] Comment on above: Performed By: #### 2 78993 #### [facility],[address] [place] [address] EMERGENCY REPORTon 2 EMERGENCY REPORT [facility] EMERGENCY ROOM REPORT NAME ACCOUNT SEX AGE ADMIT DISCHARGE PT MED. RECORD# NUMBER DATE DATE TYPE CARLITOS SWEENEY [id number] M 46 02/03/22 02/04/22 3 [id number] ROOM: ER DATE OF : 1975 DICTATING PHYSICIAN: Christopher Baeza ADDENDUM: DIAGNOSTIC DATA: We did get a chest x-ray here, which did show a moderate right pleural effusion. I ended up getting a CT scan of the chest without contrast. That report showed a moderate right pleural effusion and associated compressive atelectasis of the right lower lobe, and there was some chest wall edema and mild cardiomegaly as well. His blood work showed a white count of 5.6, hemoglobin 9.8, hematocrit 29.8, and platelet count was 230,000. Sodium was 144, potassium 5.1, chloride 101, CO2 25.9, BUN elevated at 76, and creatinine elevated at 14.77. His glucose was 92. Liver functions all came back within normal limits. Anion gap was mildly elevated at 22. Troponin was normal at 72. His EKG showed a normal sinus rhythm at a rate of 93 beats per minute. No acute injury pattern, just some left ventricular hypertrophy. Ogilvie was 60 degrees. QT interval was 390 ms, which was normal. His ProBNP was elevated at greater than 35,000. DIAGNOSES: 1. Dyspnea. 2. Acute exacerbation of chronic obstructive pulmonary disease. 3. Chronic renal failure, missed dialysis. 4. Moderate right pleural effusion. PLAN/DISPOSITION: I did give the patient an albuterol and DuoNeb aerosol treatment here. I also gave him Solu-Medrol 125 mg IV. He states it did help his shortness of breath some, but when I look at him he still to me looks somewhat short of breath. He speaks in full sentences. I do not really appreciate any conversational dyspnea when he is sitting on the bed, but he just looks to me like he is a little bit labored with his breathing. I am sure if we got him up and walked him that would get worse. The fact that he has a moderate right pleural effusion with the already COPD, I feel it is also hampering his breathing. Then he missed dialysis yesterday, so he has some fluid overload as well, and I did not feel that he should go home. I spoke with [facility] because his loom fixer apprentice is Dr. Hu, but they have no beds. They are full. The Page 1 of 2 CARLITOS SWEENEY Emergency Room Report CARLITOS SWEENEY : 1975 patient told me he has been admitted up at [facility] before, so I spoke with Dr. Wilson, the Hospitalist chantal at [facility], and he did accept this patient for admission there. We are presently awaiting EMS to arrive for an ambulance transfer up to [facility] for a direct admission under Dr. Wilson's service. I have discussed the treatment plan with the patient, and he is agreeable. Dictated By: Christopher Baeza DO 02/04/22 02:36 JOB #: [id number] Transcribed By: am 02/05/22 09:10 Electronically signed by: E-Sign: Dr. Christopher Baeza D.O. 02/05/22 14:29 Page 2 of 2 CARLITOS SWEENEY Emergency Room Report Normal [facility] EMERGENCY REPORT [facility] EMERGENCY ROOM REPORT NAME ACCOUNT SEX AGE ADMIT DISCHARGE PT MED. RECORD# NUMBER DATE DATE TYPE CARLITOS SWEENEY [id number] Mary Ann 46 02/03/22 02/04/22 3 [id number] ROOM: ER DATE OF : 1975 DICTATING PHYSICIAN: Christopher Baeza TIME SEEN: 2230 hours. HISTORY OF PRESENT ILLNESS: This is a 46-year-old white male complaining of shortness of breath that started around 8 p.m. tonight. He does have a history of chronic renal failure and was supposed to have dialysis on Friday, which would have been yesterday, but he had to miss it. [facility] was going to try to find him a place to have dialysis today, but they could not. The patient denies any pain anywhere. He does have a history of COPD and suspects that this shortness of breath may be just secondary to a COPD exacerbation. His PCP is Dr. Conte. PAST MEDICAL HISTORY: Hypertension and COPD. He does have a history of chronic renal failure and is presently on renal dialysis. 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 The second kidney transplant did last for 11 years. He also has a pacemaker-defibrillator, and he has had a previous cholecystectomy. ALLERGIES: The patient is allergic to penicillin and contrast dye SOCIAL HISTORY: The patient is a smoker of one pack per day. He denies any alcohol or drug use. He lives at home with family. REVIEW OF SYSTEMS: He denies any fevers, sweats or chills. He denies any chest pain but does admit to shortness of breath. He does admit to an occasional cough. He denies any sputum. He does complain of some wheezing off and on. He denies any abdominal pain, nausea, vomiting, diarrhea, constipation, headache, numbness, unsteady gait, weakness, neck or back pain, joint pain, skin rash or swelling, hives, hay fever, or swollen glands. Further review of systems is negative. PHYSICAL EXAMINATION: VITAL SIGNS: Temperature is 97.1, pulse 95, respiratory rate 22, blood pressure 200/120, pulse oximetry 93% on room air, and weight 158 pounds. GENERAL: The patient is alert and oriented x3. He presently appears in no acute distress. He is pleasant and cooperative. He makes eye contact. He speaks in full sentences. HEENT: Head appears atraumatic. Pupils are equal and reactive to light. Red reflexes are intact bilaterally. Extraocular muscles are intact. No conjunctival injection. NOSE: Nose exhibits no rhinorrhea or epistaxis. MOUTH: Mucous membranes are moist. No pharyngeal erythema. Uvula is midline and elevates. NECK: Page 1 of 2 CARLITOS SWEENEY Emergency Room Report CARLITOS SWEENEY : 1975 Neck is supple. Trachea is midline. No JVD or lymphadenopathy. No posterior cervical tenderness. No nuchal rigidity. LUNGS: Lungs demonstrate diminished breath sounds in all lung luis. I do hear some end expiratory wheezing but at rest I do not note any accessory muscle use or supraclavicular retractions. CV: Heart rate and rhythm are regular. No murmur is noted. Distant heart sounds are again noted. ABDOMEN: Abdomen is soft and nontender with normoactive bowel sounds x4 quadrants. No guarding or rigidity. No rebound. No palpable abdominal masses. No hepatosplenomegaly. BACK: Back exhibits no midline or paraspinal region tenderness. No increased paraspinal muscle rigidity. Negative Raman's sign. EXTREMITIES: The patient does have prominent vasculature in his right upper arm secondary to his dialysis shunt, but he does move all 4 extremities strong and symmetric. I do not note any edema or cyanosis. Peripheral pulses are intact. SKIN: Skin is warm and dry. No diaphoresis or rash. NEUROLOGIC: Neurologic examination shows the patient to be alert and oriented x4. No motor or sensory deficits are noted. At rest, normal speech. I do not note any conversational dyspnea. DIAGNOSTIC DATA: We did do an EKG at 2231 hours. It shows a normal sinus rhythm at a rate of [address]-segment changes were noted. Ogilvie is approximately 60 degrees. EMERGENCY DEPARTMENT COURSE AND TREATMENT: Presently, I do have some screening bloodwork pending. We will get a chest x-ray. I am going to give the patient some Solu-Medrol here as well as give him a DuoNeb and an albuterol aerosol treatment and then we will reevaluate. Dictated By: Christopher Baeza DO 02/03/22 22:56 JOB #: [id number] Transcribed By: della 02/05/22 07:54 Electronically signed by: E-Sign: Dr. Christopher Baeza D.O. 02/05/22 14:28 Page 2 of 2 CARLITOS SWEENEY Emergency Room Report Normal [facility] Basophil percentageon 2021 Basophil percentage 9.0 mg[facility] Comment on above: Critical Result(s) C alled at: 07:44:33 02/04/2022 by: Carla Pedersen. Results read back by same. Chloride [Moles/Vol] 101 mmol/L 98-107 [facility] Work Phone: Glucose [Mass/Vol] 253 mg/dL 74-106 [facility] Work Phone: Comment on above: Glucose result great er than or equal to 200 mg/dLsuggests DIABETES MELLITUS per A.D.A. criteria. Potassium [Moles/Vol] 5.4 mmol/L 3.5-5.1 [facility] Work Phone: Sodium [Moles/Vol] 138 mmol/L 136-145 [facility] Work Phone: CBC + DIFFon 02-04-2022 Baso # 0.10 x10EE3/UL Normal 0.00 - 0.10 [facility] Comment on above: Performed By: #### 2 91700 #### [facility],[address] [place] [address] Basophils/100 WBC (Bld) 1.6 % Normal 0.0 - 2.0 [facility] Comment on above: Performed By: #### 2 08006 #### [place] [address] CBC + DIFF Normal [facility] Comment on above: Result Comment: CBC- COMPLETE BLOOD COUNT Performed By: #### 2 99204 #### [facility],[address] [place] [address] EO # 0.20 x10EE3/UL Normal 0.00 - 0.50 [facility] Comment on above: Performed By: #### 2 69179 #### [facility],[address] [place] [address] Eosinophils/100 WBC (Bld) 3.8 % Normal 0.0 - 7.0 [facility] Comment on above: Performed By: #### 2 98926 #### [facility],[address] [place] [address] Erythrocyte distribution width (RBC) [Ratio] 15.8 % High 12.0 - 15.6 [facility] Comment on above: Performed By: #### 2 64790 #### [facility],[address] [place] [address] Hematocrit (Bld) [Volume fraction] 29.8 % Low 40.0 - 52.0 [facility] Comment on above: Performed By: #### 2 83060 #### [facility],[address] [place] [address] Hemoglobin (Bld) [Mass/Vol] 9.8 g/dL Low 13.0 - 17.5 [facility] Comment on above: Performed By: #### 2 44308 #### [facility],[address] [place] [address] Lymph # 0.80 x10EE3/UL Normal 0.80 - 2.80 [facility] Comment on above: Performed By: #### 2 83799 #### [facility],[address] [place], [place] [id number] Lymphocytes/100 WBC (Bld) 13.8 % Low 20.0 - 45.0 [facility] Comment on above: Performed By: #### 2 26726 #### [facility],[address] [place] [address] MANUAL DIFF N/A Normal [facility] Comment on above: Performed By: #### 2 98712 #### [facility],[address] [place] [address] MCH (RBC) [Entitic mass] 28 pg Normal 27 - 33 [facility] Comment on above: Performed By: #### 2 51653 #### [facility],[address] [place] [address] MCHC 33 X10 3 Normal 32 - 36 [facility] Comment on above: Performed By: #### 2 06150 #### [facility],[address] [place] [address] MCV (RBC) [Entitic vol] 86 fL Normal 81 - 98 [facility] Comment on above: Performed By: #### 2 80316 #### [facility],[address] [place] [address] [place] # 0.50 x10EE3/UL Normal 0.20 - 1.00 [facility] Comment on above: Performed By: #### 2 60460 #### [facility],[address] [place] [address] MONOS % 9.2 % Normal 0.0 - 10.0 [facility] Comment on above: Performed By: #### 2 34968 #### [facility],[address] [place] [address] Morphology Jose (Bld) [Interp] N/A Normal [facility] Comment on above: Result Comment: {CD] Performed By: #### 2 83660 #### [facility],[address] [place] [address] Neut # 4.00 x10EE3/UL Normal 1.50 - 7.10 [facility] Comment on above: Performed By: #### 2 68455 #### [facility],[address] [place] [address] Neutrophils/100 WBC (Bld) 71.6 % Normal 46.0 - 76.0 [facility] Comment on above: Performed By: #### 2 47939 #### [facility],[address] [place] [address] 58859 PLATELET 230 x10EE3/UL Normal 150 - 450 [facility] Comment on above: Performed By: #### 2 33660 #### [facility],[address] [place] [address] 29114 Platelet mean volume (Bld) [Entitic vol] 7.4 fL Normal 6.4 - 10.5 [facility] Comment on above: Result Comment: AUTO MATED DIFFERENTIAL Performed By: #### 2 20360 #### [facility],[address] [place] [address] 01170 RBC 3.48 x 10EE6/UL Low 4.50 - 6.00 [facility] Comment on above: Performed By: #### 2 99960 #### [facility],[address] [place] [address] 69635 WBC 5.6 x 10EE3/UL Normal 4.5 - 10.8 [facility] Comment on above: Performed By: #### 2 99697 #### [facility],[address] [place] [address] 97678 CHEST 1 VIEWon 02-04-2022 CHEST 1 VIEW [place] [address] Patient: CARLITOS SWEENEY Phone#: : 1975 Age: 46 Gender: M Pt. Type: ER Account: [id number] Location: [facility] Ordering: CHRISTOPHER BAEZA Exam Date: 02/03/2022/22:46 Family Phys: TOM CONTE Charge Code: [id number] Physician: Laurens Order #: [id number] DLP Dose#: This report includes an Addendum and supersedes previous reports for this exam. PROCEDURE: X-RAY CHEST 1 VIEW COMPARISON: [facility], CT, CHEST W/O CON, 02/04/2022, 0:31. [facility], XR, CHEST 1 VIEW, 09/26/2021, 23:52. INDICATIONS: COPD. FINDINGS: LUNGS: Confluent opacity at the right lung base likely due to a combination of pleural effusion and compressive atelectasis. Cannot exclude superimposed infiltrate. VASCULATURE: Normal. Unremarkable pulmonary vasculature. CARDIAC: Cardiac silhouette is partially obscured by adjacent airspace disease and pleural effusion, though appears enlarged. Left chest wall cardiac device with 2 leads. MEDIASTINUM: Normal. No visible mass or adenopathy. PLEURA: Moderate-sized right pleural effusion BONES: Normal. No fracture or visible bony lesion. OTHER: Monitoring leads project across the thorax. CONCLUSION: 1. Moderate size right pleural effusion and associated compressive atelectasis. Cannot exclude superimposed infiltrate. Dictated by: Kathy Boateng MD on 02/04/2022 at 8:54 Approved by: Kathy Boateng MD on 02/04/2022 at 8:56 ADDENDUM: Stent in the left upper thorax. Continued Report - Page 2 of 2 Patient: CARLITOS SWEENEY Phone#: : 1975 Age: 46 Gender: M Pt. Type: ER Account: [id number] Location: [facility] Ordering: CHRISTOPHER BAEZA Exam Date: 02/03/2022/22:46 Family Phys: TOM CONTE Charge Code: [id number] Physician: Laurens Order #: [id number] DLP Dose#: Dictated by: Kathy Boateng MD on 02/04/2022 at 11:42 Approved by: Kathy Boateng MD on 02/04/2022 at 11:42 Normal [facility] CMP with eGFRon 02-04-2022 AGE 46 years Normal [facility] Comment on above: Performed By: #### 2 25379 #### [facility],[address] [place] [address] Albumin [Mass/Vol] 3.7 g/dL Normal 3.4 - 5.0 [facility] Comment on above: Performed By: #### 2 14597 #### [facility],[address] [place] [address] Albumin/Globulin [Mass ratio] 0.9 {ratio} Normal 0.9 - 1.6 [facility] Comment on above: Performed By: #### 2 61441 #### [facility],[address] [place] [address] 72705 ALK PHOS 75 U/L Normal 46 - 116 [facility] Comment on above: Performed By: #### 2 21017 #### [facility],[address] [place] [address] 91259 ALT [Catalytic activity/Vol] 25 U/L Normal 16 - 63 [facility] Comment on above: Performed By: #### 2 82495 #### [facility],[address] [place] [address] 16421 Anion gap [Moles/Vol] 22 mmol/L High 10 - 20 [facility] Comment on above: Performed By: #### 2 28591 #### [facility],[address] [place] [address] 47824 AST [Catalytic activity/Vol] 24 U/L Normal 15 - 37 [facility] Comment on above: Performed By: #### 2 60529 #### [facility],[address] [place] [address] 95959 B/C RATIO 5 ratio Normal 0 - 30 [facility] Comment on above: Performed By: #### 2 27704 #### [facility],[address] [place] [address] 05710 Bilirubin [Mass/Vol] 0.7 mg/dL Normal 0.2 - 1.0 [facility] Comment on above: Performed By: #### 2 35314 #### [facility],[address] [place] [address] 04881 Calcium [Mass/Vol] 8.0 mg/dL Low 8.5 - 10.1 [facility] Comment on above: Performed By: #### 2 67821 #### [facility],[address] [place] [address] 57759 Chloride [Moles/Vol] 101 mmol/L Normal 98 - 107 [facility] / [facility] Comment on above: Performed By: #### 2 [id number] #### [facility],[address] [place] [address] 76199 CMP with eGFR Normal [facility] Comment on above: Result Comment: COMP REHENSIVE METABOLIC PANEL Performed By: #### 2 07129 #### [facility],[address] [place] [address] 37814 CO2 [Moles/Vol] 25.9 mmol/L Normal 21.0 - 32.0 [facility] Comment on above: Performed By: #### 2 19565 #### [facility],[address] [place] [address] 38091 Creatinine [Mass/Vol] 14.77 mg/dL High 0.70 - 1.30 [facility] Comment on above: Performed By: #### 2 03074 #### [facility],[address] [place] [address] 13431 eGFR 4 ML/MINUTE Low 60 - 999 [facility] Comment on above: Performed By: #### 2 01703 #### [facility],[address] [place] [address] 17936 eGFR(AA) 4 ML/MINUTE Low 60 - 999 [facility] Comment on above: Result Comment: ACCO RDING TO THE NATIONAL KIDNEY DISEASE EDUCATION PROGRAM(NKDE), A NORMAL eGFR IS A VALUE GREATER THAN OR EQUAL TO 60 ML/MIN/1.73 SQ METERS. CHRONIC KIDNEY DISEASE: <60mL/MIN/1.73 SQ METERS KIDNEY FAILURE: <15mL/MIN/1.73 SQ METERS THIS TEST SHOULD ONLY BE USED FOR PATIENTS 18 YEARS OF AGE AND OLDER. Performed By: #### 2 12904 #### [facility],[address] [place] [address] 84304 Globulin (S) [Mass/Vol] 4.2 g/dL High 1.5 - 3.8 [facility] Comment on above: Performed By: #### 2 95249 #### [facility],[address] [place] [address] 59135 Glucose [Mass/Vol] 92 mg/dL Normal 74 - 106 [facility] Comment on above: Performed By: #### 2 94080 #### [facility],[address] [place], [place] [id number] Potassium [Moles/Vol] 5.1 mmol/L Normal 3.5 - 5.1 [facility] Comment on above: Performed By: #### 2 19196 #### [facility],[address] [place] [address] Protein [Mass/Vol] 7.9 g/dL Normal 6.4 - 8.2 [facility] Comment on above: Performed By: #### 2 48058 #### [facility],[address] [place] [address] Sodium [Moles/Vol] 144 mmol/L Normal 136 - 145 [facility] Comment on above: Performed By: #### 2 02273 #### [facility],[address] [place] [address] Urea nitrogen [Mass/Vol] 76 mg/dL High 7 - 18 [facility] Comment on above: Performed By: #### 2 66388 #### [facility],[address] [place] [address] CORONAVIRUS (SARS) ANTIGEN T ESTon 02-04-2022 EXTERNAL QC DONE? YES Normal [facility] Comment on above: Performed By: #### 2 05994 #### [facility],[address] [place] [address] INTERNAL CONTROL PASS Normal [facility] Comment on above: Performed By: #### 2 31681 #### [facility],[address] [place] [address] SARS ANTIGEN Negative Normal NORMAL: NEGATIVE [facility] Comment on above: Performed By: #### 2 00385 #### [facility],[address] [place] [address] SEND TO ? YES Normal [facility] Comment on above: Result Comment: SARS -CoV-2 THIS TEST IS BEING USED UNDER THE FDA EUA PROCEDURE. THIS ASSAY HAS BEEN VALIDATED AT [facility] FOR USE WITH NASAL AND NASOPHARYNGEAL SWAB SPECIMENS. INTERPRETIVE DATA TEST RESULTS SHOULD ALWAYS BE CONSIDERED IN THE CONTEXT OF CLINICAL OBSERVATIONS AND EPIDEMIOLOGICAL DATA IN MAKING FINAL DIAGNOSIS AND PATIENT MANAGEMENT DECISIONS. PATIENT MANAGEMENT SHOULD FOLLOW CURRENT CDC GUIDELINES. THE CHRISTIANO SARS ANTIGEN EMY DOES NOT DIFFERENTIATE BETWEEN SARS-CoV & SARS-CoV-2. A POSITIVE TEST RESULT INDICATES THE PRESENCE OF SARS-CoV-2 NUCLEOCAPSID PROTEIN ANTIGEN, AND THE PATIENT IS INFECTED WITH THE VIRUS AND PRESUMED TO BE CONTAGIOUS. A NEGATIVE TEST RESULT FOR THIS TEST MEANS THAT SARS-CoV-2 NUCLEOCAPSID PROTEIN ANTIGEN WAS NOT PRESENT IN THE SPECIMEN ABOVE THE LIMIT OF DETECTION. HOWEVER, A NEGATIVE RESULT DOES NOT RULE OUT COVID-19 AND SHOULD NOT BE USED THE SOLE BASIS FOR TREATMENT OR PATIENT MANAGEMENT DECISIONS. A NEGATIVE RESULT DOES NOT EXCLUDE THE POSSIBILITY OF COVID-19. NEGATIVE RESULTS, FROM PATIENTS WITH SYMPTOM ONSET BEYOND FIVE DAYS, SHOULD BE TREATED PRESUMPTIVE AND CONFIRMATION WITH A MOLECULAR ASSAY, IF NECESSARY, FOR PATIENT MANAGEMENT, MAY BE PERFORMED. WHEN DIAGNOSTIC TESTING IS NEGATIVE, THE POSSIBLILTY OF A FALSE NEGATIVE RESULT SHOULD BE CONSIDERED IN THE CONTEXT OF A PATIENT'S RECENT EXPOSURES AND THE PRESENCE OF CLINICAL SIGNS AND SYMPTOMS CONSISTENT WITH COVID-19. THE POSSIBILITY OF A FALSE NEGATIVE RESULT SHOULD ESPECIALLY BE CONSIDERED IF THE PATIENT'S RECENT EXPOSURES OR CLINICAL PRESENTATION INDICATE THAT COVID-19 IS LIKELY, AND DIAGNOSTIC TESTS FOR OTHER CAUSES OF ILLNESS (e.g., OTHER RESPIRATORY ILLNESS) ARE NEGATIVE. IF COVID-19 IS STILL SUSPECTED BASED ON EXPOSURE HISTORY TOGETHER WITH OTHER CLINICAL FINDINGS, RE-TESTING SHOULD BE CONSIDERED BY HEALTHCARE PROVIDERS IN CONSULTATION WITH PUBLIC HEALTH AUTHORITIES. Performed By: #### 2 52377 #### [facility],[address] [place] [address] CT CHEST W/O CONTRASTon 01-21 CT CHEST W/O CONTRAST [place] [id number] Patient: CARLITOS SWEENEY Phone#: : 1975 Age: 46 Gender: M Pt. Type: ER Account: [id number] Location: 052 Ordering: CHRISTOPHER Jerald BAEZA Exam Date: 02/04/2022/0:31 Family Phys: TOM CONTE Charge Code: 587922 Physician: Laurens Order #: [id number] DLP Dose#: 5.30 PROCEDURE: CT CHEST WITHOUT CONTRAST COMPARISON: None. INDICATIONS: Shortness of breath. TECHNIQUE: CT images were created without the administration of contrast material. All CT scans at this facility use dose modulation, iterative reconstruction, and/or weight based dosing when appropriate to reduce radiation dose to as low as reasonably achievable. IV CONTRAST: No IV contrast used,0ml TOTAL DOSE: 5.30 CTDIvol(mGy) FINDINGS: Evaluation of the soft tissues is limited in the absence of intravenous contrast. LUNGS: Interstitial thickening. Patchy nodular opacity in the left lung base. Compressive atelectasis in the right lung base. VASCULATURE: There is a stent located between the left clavicle and 1st rib. Intrathoracic pulmonary vessels unremarkable in size CELESTINO: Normal. No mass or adenopathy. MEDIASTINUM: Normal. No mass or adenopathy. CARDIAC: Cardiomegaly. Blood pool is hypodense relative to the myocardium, this can be seen with anemia. Cardiac device with leads terminating in the right heart. PLEURA: Moderate-sized right pleural effusion. Small left pleural effusion. AORTA: Aortic calcifications CHEST WALL: There is edema in the right lateral chest wall. LIMITED ABDOMEN: Normal. Limited images of the upper abdomen are unremarkable. BONES: Coarse calcifications adjacent to the inferior aspect of the lateral left clavicle. OTHER: Negative. CONCLUSION: Continued Report - Page 2 of 2 Patient: CARLITOS SWEENEY Phone#: : 1975 Age: 46 Gender: M Pt. Type: ER Account: [id number] Location: 052 Ordering: CHRISTOPHER BAEZA Exam Date: 02/04/2022/0:31 Family Phys: TOM CONTE Charge Code: 276841 Physician: Laurens Order #: [id number] DLP Dose#: 5.30 1. Moderate-sized right pleural effusion. Small left pleural effusion. There is associated compressive atelectasis, cannot exclude superimposed infiltrate. 2. Right chest wall edema 3. Cardiomegaly 4. Suspected anemia Dictated by: Kathy Boateng MD on 02/04/2022 at 11:42 Approved by: Kathy Boateng MD on 02/04/2022 at 11:48 Normal [facility] Laboratory - Chemistry and C hemistry - challengeon 02-04-2022 CO2 [Moles/Vol] 21.0 mmol/L 21.0-32.0 [facility] Work Phone: Magnesium [Mass/Vol] 3.0 mg/dL 1.6-2.6 [facility] Work Phone: Comment on above: Critical Result(s) C alled at: 07:44:33 02/04/2022 by: Carla Pedersen. Results read back by same. Urea nitrogen/Creatinine [Mass ratio] 5.4 mg/mg 10-20 [facility] Work Phone: NT-proBNPon 02-04-2022 NT PRO-BNP >97729 High 0 - 125 [facility] Comment on above: Performed By: #### 2 15444 #### [facility],[address] [address] No Panel Informationon 02-04 Troponin I High Sensitivity 59 pg/mL 3.0-78.0 [facility] Work Phone: Comment on above: Please Note: [place] t Units and Gender Specific Reference Ranges. For more information see Policy Stat Procedure Raymond High Sensitivity Troponin (TNIH) and attachments. Estimated Creatinine Clearance Calc 6.31 ml/min [facility] Work Phone: Estimated GFR (MDRD) Amer 4 mL/min >60 [facility] Work Phone: Comment on above: GFR Calc Estimated GFR (MDRD) Non-Af Amer 4 mL/min >60 [facility] Work Phone: Comment on above: Non- GFR Calc Serum or plasma calcium kassandra urement (mass/volume)on 02-04-2022 Calcium [Mass/Vol] 8.0 mg/dL 8.5-10.1 [facility] Work Phone: Serum or plasma creatinine m easurement (mass/volume)on 02-04-2022 Creatinine [Mass/Vol] 15.20 mg/dL 0.70-1.30 [facility] Work Phone: Comment on above: The validity of the calculated GFR & GFRAA in patients over 70 years has not been determined. Clinical correlation is essential. Serum or plasma urea nitroge n measurement (mass/volume)on 02-04-2022 Urea nitrogen [Mass/Vol] 82 mg/dL 7-18 [facility] Work Phone: TROPONIN I, HIGH SENSITIVITY on 02-04-2022 HS TROPONIN 72.0 pg/mL Normal 0.0 - 76.2 [facility] Comment on above: Performed By: #### 2 92146 #### [facility],[address] [place] [address] Thin prep Papanicolaou smear with manual screeningon 02-04-2022 Thin prep Papanicolaou smear with manual screening 16 11-04 [facility] Work Phone: XR Chest PA and Lateralon IMPRESSION: Moderate fluid and atelectasis at the right base. Superimposed consolidation cannot be excluded. Cardiomegaly Fishing Rod Marker: HENRY Transcribe Date/Time: Nov 01 2021 10:55A Dictated by : ISIDRO HUGO MD This examination was interpreted and the report reviewed and electronically signed by: ISIDRO HUGO MD on Nov 01 2021 10:57AM EST ZZZ_DO_NOT_ USE_DIVISIO N OF RADIOLOGY * * *Final Report* * * DATE OF EXAM: Nov 01 2021 10:48AM WOX 5291 - XR CHEST 2V FRONTAL/LAT / PROCEDURE REASON: History of pneumonia * * * * Physician Interpretation * * * * EXAMINATION: CHEST RADIOGRAPH (2 VIEW FRONTAL & LATERAL) CLINICAL HISTORY: History of pneumonia MQ: XC2_6 EXAM DATE/TIME: 11/01/2021 10:48 AM COMPARISON: 11/15/2020 RESULT: Lines, tubes, and devices: Left cardiac pacer and leads is unchanged Lungs and pleura: Moderate fluid and atelectasis at the right lung base is new. Superimposed consolidation cannot be excluded. Left lung is clear. No pneumothorax Cardiomediastinal silhouette: Mildly enlarged cardiomediastinal silhouette. Bones and soft tissues: Unremarkable. ZZZ_DO_NOT_ USE_DIVISIO N OF RADIOLOGY Provider, Mary Ann Reyna [facility] - 11/01/2021 * * *Final Report* * * DATE OF EXAM: Nov 01 2021 10:48AM WOX 5291 - XR CHEST 2V FRONTAL/LAT / PROCEDURE REASON: History of pneumonia * * * * Physician Interpretation * * * * EXAMINATION: CHEST RADIOGRAPH (2 VIEW FRONTAL & LATERAL) CLINICAL HISTORY: History of pneumonia MQ: XC2_6 EXAM DATE/TIME: 11/01/2021 10:48 AM COMPARISON: 11/15/2020 RESULT: Lines, tubes, and devices: Left cardiac pacer and leads is unchanged Lungs and pleura: Moderate fluid and atelectasis at the right lung base is new. Superimposed consolidation cannot be excluded. Left lung is clear. No pneumothorax Cardiomediastinal silhouette: Mildly enlarged cardiomediastinal silhouette. Bones and soft tissues: Unremarkable. IMPRESSION IMPRESSION: Moderate fluid and atelectasis at the right base. Superimposed consolidation cannot be excluded. Cardiomegaly Fishing Rod Marker: HENRY Transcribe Date/Time: Nov 01 2021 10:55A Dictated by : ISIDRO HUGO MD This examination was interpreted and the report reviewed and electronically signed by: ISIDRO HUGO MD on Nov 01 2021 10:57AM EST [facility] Radiology Study observation (narrative) [facility] XR Chest PA and LateralOrder ed By: [facility] Provider on 11-01-[address] [facility] EMERGENCY REPORTon EMERGENCY REPORT [facility] EMERGENCY ROOM REPORT NAME ACCOUNT SEX AGE ADMIT DISCHARGE PT MED. RECORD# NUMBER DATE DATE TYPE CARLITOS SWEENEY [id number] Mary Ann 46 10/25/21 10/26/21 3 [id number] ROOM: ER DATE OF : 1975 DICTATING PHYSICIAN: Serena Ascencio HISTORY OF PRESENT ILLNESS: The patient came in complaining of abdominal pain. He had intense pain that occurred 2 hours prior to arrival. He had a similar episode he said a month ago and presents to the Emergency Department. He denies any fevers or chills. He did have nausea and vomiting and presented to the Emergency Department by EMS. He says the pain is an 8/10. It is a constant, sharp pain. Nothing made it better or worse. PAST MEDICAL HISTORY: He does have kidney failure, for which he has been on dialysis on and off since 1994. He has COPD, asthma, coronary artery disease, hypertension, and renal failure. PAST SURGICAL HISTORY: Cholecystectomy, pacemaker, and dialysis catheter. SOCIAL HISTORY: He does smoke, which he was counseled to stop. He denies alcohol. REVIEW OF SYSTEMS: Ten systems were reviewed and were negative except as mentioned above. PHYSICAL EXAMINATION: VITAL SIGNS: The patient is afebrile. Pulse is 80, respirations 20, blood pressure 122/73, and pulse oximetry 99% on room air. HEENT: Head is normocephalic, atraumatic. Eyes: Pupils are equal, round and reactive to light. Extraocular muscles are intact. Nares are patent. Throat has adequate oral moisture. Uvula is midline. NECK: Neck is supple without petechiae or rash. HEART: Heart rate is regular without murmur. S1 is equal to S2. No S3 or S4 appreciated. LUNGS: Lungs are clear to auscultation bilaterally. No rales, rhonchi or retractions. ABDOMEN: Abdomen is soft, nontender and nondistended. SKIN: Skin is warm and dry. DIAGNOSTIC DATA: The patient had a CT which showed a moderated-sized right pleural effusion, atelectasis, and increased stool/mild constipation. EMERGENCY DEPARTMENT COURSE AND TREATMENT: While he was here, he was given pain medication of Dilaudid as well as Zofran. He feels better at this time. We will also write him for MiraLax, and we will give him milk of magnesia tonight. DIAGNOSES: Page 1 of 2 CARLITOS SWEENEY Emergency Room Report CARLITOS SWEENEY : 1975 1. Abdominal pain - cause not clear. 2. Increased stool/constipation. 3. Right lung effusion. PLAN/DISPOSITION: He should follow up with Dr. Conte in 3 days and return if any problems or concerns. Dictated By: Serena Ascencio DO 10/26/21 04:29 JOB #: [id number] Transcribed By: della 10/26/21 15:42 Electronically signed by: DEBBY Ascencio DO 10/28/21 08:08 Page 2 of 2 CARLITOS SWEENEY Emergency Room Report Normal [facility] CBC + DIFFon 10-26-2021 Baso # 0.10 x10EE3/UL Normal 0.00 - 0.10 [facility] Comment on above: Performed By: #### 2 51374 #### [facility],[address] [place], [place] [id number] Basophils/100 WBC (Bld) 1.5 % Normal 0.0 - 2.0 [facility] Comment on above: Performed By: #### 2 82908 #### [facility],[address] [place] [address] 53112 CBC + DIFF Normal [facility] Comment on above: Result Comment: CBC- COMPLETE BLOOD COUNT Performed By: #### 2 44133 #### [facility],[address] [place] [address] 94335 EO # 0.20 x10EE3/UL Normal 0.00 - 0.50 [facility] Comment on above: Performed By: #### 2 95691 #### [facility],[address] [place] [address] 62391 Eosinophils/100 WBC (Bld) 4.4 % Normal 0.0 - 7.0 [facility] Comment on above: Performed By: #### 2 39375 #### [facility],[address] [place] [address] 82300 Erythrocyte distribution width (RBC) [Ratio] 18.3 % High 12.0 - 15.6 [facility] Comment on above: Performed By: #### 2 33467 #### [facility],[address] [place] [address] 76027 Hematocrit (Bld) [Volume fraction] 36.9 % Low 40.0 - 52.0 [facility] Comment on above: Performed By: #### 2 48909 #### [facility],[address] [place] [address] 10209 Hemoglobin (Bld) [Mass/Vol] 11.8 g/dL Low 13.0 - 17.5 [facility] Comment on above: Performed By: #### 2 80844 #### [facility],[address] [place], [place] [id number] Lymph # 0.90 x10EE3/UL Normal 0.80 - 2.80 [facility] Comment on above: Performed By: #### 2 62722 #### [facility],[address] [place] [address] 13327 Lymphocytes/100 WBC (Bld) 20.3 % Normal 20.0 - 45.0 [facility] Comment on above: Performed By: #### 2 62512 #### [facility],[address] [place], [place] [phone] MANUAL DIFF N/A Normal [facility] Comment on above: Performed By: #### 2 06301 #### [facility],[address] [place] [address] 88699 MCH (RBC) [Entitic mass] 28 pg Normal 27 - 33 [facility] Comment on above: Performed By: #### 2 43689 #### [facility],[address] [place] [address] 59558 MCHC 32 X10 3 Normal 32 - 36 [facility] Comment on above: Performed By: #### 2 29031 #### [facility],[address] [place] [address] 26350 MCV (RBC) [Entitic vol] 87 fL Normal 81 - 98 [facility] Comment on above: Performed By: #### 2 38794 #### [facility],[address] [place] [address] 12485 [place] # 0.70 x10EE3/UL Normal 0.20 - 1.00 [facility] Comment on above: Performed By: #### 2 47957 #### [facility],[address] [place] [address] 39855 MONOS % 14.9 % High 0.0 - 10.0 [facility] Comment on above: Performed By: #### 2 08272 #### [facility],[address] [place] [address] 83270 Morphology Jose (Bld) [Interp] N/A Normal [facility] Comment on above: Performed By: #### 2 52554 #### [facility],[address] [place] [address] 21203 Neut # 2.60 x10EE3/UL Normal 1.50 - 7.10 [facility] Comment on above: Performed By: #### 2 17442 #### [facility],[address] [place] [address] 48125 Neutrophils/100 WBC (Bld) 58.9 % Normal 46.0 - 76.0 [facility] Comment on above: Performed By: #### 2 40095 #### [facility],[address] [place] [address] 45026 PLATELET 272 x10EE3/UL Normal 150 - 450 [facility] Comment on above: Performed By: #### 2 14908 #### [facility],[address] [place] [address] 60052 Platelet mean volume (Bld) [Entitic vol] 6.8 fL Normal 6.4 - 10.5 [facility] Comment on above: Result Comment: AUTO MATED DIFFERENTIAL Performed By: #### 2 87225 #### [facility],[address] [place] [address] 42667 RBC 4.24 x 10EE6/UL Low 4.50 - 6.00 [facility] Comment on above: Performed By: #### 2 84495 #### [facility],[address] [place] [address] 73127 WBC 4.4 x 10EE3/UL Low 4.5 - 10.8 [facility] Comment on above: Performed By: #### 2 44465 #### [facility],[address] [place] [address] 68635 CMP with eGFRon 10-26-2021 AGE 46 years Normal [facility] Comment on above: Performed By: #### 2 95380 #### [facility],[address] [place] [address] 36268 Albumin [Mass/Vol] 3.8 g/dL Normal 3.4 - 5.0 [facility] Comment on above: Performed By: #### 2 32443 #### [facility],[address] [place] [address] 86882 Albumin/Globulin [Mass ratio] 1.0 {ratio} Normal 0.9 - 1.6 [facility] Comment on above: Performed By: #### 2 93468 #### [facility],[address] [place] [address] 59466 ALK PHOS 80 U/L Normal 46 - 116 [facility] Comment on above: Performed By: #### 2 19089 #### [facility],[address] [place] [address] 70546 ALT [Catalytic activity/Vol] 16 U/L Normal 16 - 63 [facility] Comment on above: Performed By: #### 2 40494 #### [facility],[address] [place] [address] 51553 Anion gap [Moles/Vol] 12 mmol/L Normal 10 - 20 [facility] Comment on above: Performed By: #### 2 67161 #### [facility],[address] [place] [address] 23723 AST [Catalytic activity/Vol] 13 U/L Low 15 - 37 [facility] Comment on above: Performed By: #### 2 05716 #### [facility],[address] [place] [address] 48298 B/C RATIO 4 ratio Normal 0 - 30 [facility] Comment on above: Performed By: #### 2 09412 #### [facility],[address] [place] [address] 82581 Bilirubin [Mass/Vol] 0.4 mg/dL Normal 0.2 - 1.0 [facility] Comment on above: Performed By: #### 2 49062 #### [facility],[address] [place] [address] 14215 Calcium [Mass/Vol] 9.1 mg/dL Normal 8.5 - 10.1 [facility] Comment on above: Performed By: #### 2 95751 #### [facility],[address] [place] [address] 46236 Chloride [Moles/Vol] 94 mmol/L Low 98 - 107 [facility] Comment on above: Performed By: #### 2 74224 #### [facility],[address] [place] [address] 48615 CMP with eGFR Normal [facility] Comment on above: Result Comment: COMP REHENSIVE METABOLIC PANEL Performed By: #### 2 10958 #### [facility],[address] [place] [address] 63639 CO2 [Moles/Vol] 33.6 mmol/L High 21.0 - 32.0 [facility] Comment on above: Performed By: #### 2 23253 #### [facility],[address] [place] [address] 61266 Creatinine [Mass/Vol] 9.56 mg/dL High 0.70 - 1.30 [facility] Comment on above: Performed By: #### 2 03517 #### [facility],[address] [place] [address] 71746 eGFR 6 ML/MINUTE Low 60 - 999 [facility] Comment on above: Performed By: #### 2 98073 #### [facility],[address] [place] [address] 97164 eGFR(AA) 7 ML/MINUTE Low 60 - 999 [facility] Comment on above: Result Comment: ACCO RDING TO THE NATIONAL KIDNEY DISEASE EDUCATION PROGRAM(NKDE), A NORMAL eGFR IS A VALUE GREATER THAN OR EQUAL TO 60 ML/MIN/1.73 SQ METERS. CHRONIC KIDNEY DISEASE: <60mL/MIN/1.73 SQ METERS KIDNEY FAILURE: <15mL/MIN/1.73 SQ METERS THIS TEST SHOULD ONLY BE USED FOR PATIENTS 18 YEARS OF AGE AND OLDER. Performed By: #### 2 54183 #### [facility],[address] [place] [address] 65655 Globulin (S) [Mass/Vol] 4.0 g/dL High 1.5 - 3.8 [facility] Comment on above: Performed By: #### 2 94714 #### [facility],[address] [place] [address] 65149 Glucose [Mass/Vol] 101 mg/dL Normal 74 - 106 [facility] Comment on above: Performed By: #### 2 49668 #### [facility],[address] [place] [address] 20388 Potassium [Moles/Vol] 4.1 mmol/L Normal 3.5 - 5.1 [facility] Comment on above: Performed By: #### 2 67076 #### [facility],[address] [place] [address] 95254 Protein [Mass/Vol] 7.8 g/dL Normal 6.4 - 8.2 [facility] Comment on above: Performed By: #### 2 04978 #### [facility],[address] [place] [address]85 Sodium [Moles/Vol] 135 mmol/L Low 136 - 145 [facility] Comment on above: Performed By: #### 2 13215 #### [facility],[address] [place] [address] 77580 Urea nitrogen [Mass/Vol] 38 mg/dL High 7 - 18 [facility] Comment on above: Performed By: #### 2 [id number] #### [facility],[address] [place] [address] ABDOMEN/PELVIS [facility] 10-26 CT ABDOMEN/PELVIS [address] [address] Patient: CARLITOS SWEENEY Phone#: : 1975 Age: 46 Gender: M Pt. Type: ER Account: [id number] Location: [facility] Ordering: SERENA ASCENCIO Exam Date: 10/26/2021/0:49 Family Phys: TOM CONTE Charge Code: 404955 Physician: Laurens Order #: [id number] DLP Dose#: 5.30 PROCEDURE: CT ABDOMEN/PELVIS WITHOUT CONTRAST COMPARISON: None. INDICATIONS: Abdominal pain. TECHNIQUE: CT images were created without intravenous contrast. All CT scans at this facility use dose modulation, iterative reconstruction, and/or weight based dosing when appropriate to reduce radiation dose to as low as reasonably achievable. IV CONTRAST: No IV contrast used,0ml TOTAL DOSE: 5.30 CTDIvol(mGy) FINDINGS: LIVER: Normal. No enlargement, atrophy, abnormal density, or significant focal lesion. BILIARY: The gallbladder is absent. Surgical clip is present in the gallbladder fossa. PANCREAS: Normal. No lesion, fluid collection, ductal dilatation, or atrophy. SPLEEN: Normal. No enlargement or focal lesion. KIDNEYS: [place] kidneys are markedly atrophic. Dense calcification of bilateral renal transplants is noted in the right and left pelvis. ADRENALS: Normal. No mass or enlargement. AORTA/VASCULAR: Vascular calcification is present. RETROPERITONEUM: Normal. No mass or adenopathy. BOWEL/MESENTERY: A few nonspecific mesenteric lymph nodes are present. There is moderate stool retention. ABDOMINAL WALL: Normal. No mass or hernia. URINARY BLADDER: Normal. No visible focal wall thickening, lesion, or calculus. PELVIC NODES: Normal. No adenopathy. PELVIC ORGANS: Normal. No visible mass. Pelvic organs appropriate for patient age. BONES: Normal. No bony lesion or fracture. Continued Report - Page 2 of 2 Patient: CARLITOS SWEENEY Phone#: : 1975 Age: 46 Gender: M Pt. Type: ER Account: [id number] Location: 052 Ordering: SERENA ASCENCIO Exam Date: 10/26/2021/0:49 Family Phys: TOM CONTE Charge Code: 521100 Physician: Laurens Order #: [id number] DLP Dose#: 5.30 LUNG BASES: Cardiac pacing device is present. Coronary artery calcification is present. There is moderate right-sided pleural effusion. Bibasilar atelectasis is present. OTHER: Negative. CONCLUSION: 1. Moderate right pleural effusion. 2. Marked atrophy of the [place] kidneys. Dense calcification of bilateral transplant kidneys. 3. Moderate stool retention. Dictated by: Kady Gonzales MD on 10/26/2021 at 9:24 Approved by: Kady Gonzales MD on 10/26/2021 at 9:30 Normal [facility] LIPASEon 10-26-2021 Lipase [Catalytic activity/Vol] 103.0 U/L Normal 73.0 - 393 [facility] Comment on above: Performed By: #### 2 [id number] #### [facility],[address] [place] [address] LABORATORYOrdered By: Ghulam Mae on 10-11-2021 Albumin BCP dye [Mass/Vol] 3.6 G/dL Invalid Interpretation Code 3.5 - 5.0 G/dL AO ADM SS Albumin/Globulin [Mass ratio] 1.0 {ratio} Invalid Interpretation Code 1.1 - 2.5 ratio AO ADM SS ALP [Catalytic activity/Vol] 64 U/L Invalid Interpretation Code 40 - 135 U/L AO ADM SS ALT With P-5'-P [Catalytic activity/Vol] 15 U/L Invalid Interpretation Code 16 - 63 U/L AO ADM SS AST With P-5'-P [Catalytic activity/Vol] 12 U/L Invalid Interpretation Code 10 - 40 U/L AO ADM SS Basophil, Absolute 0.00 103/mcL Invalid Interpretation Code 0.00 - 0.19 10^3/mcL AO Auto Heme SS Basophils/100 WBC (Bld) 0.1 % Invalid Interpretation Code 0.0 - 2.5 % AO Auto Heme SS Bilirubin [Mass/Vol] 0.6 mg/dL Invalid Interpretation Code 0.2 - 1.0 mg/dL AO ADM SS Calcium [Mass/Vol] 9.2 mg/dL Invalid Interpretation Code 8.4 - 10.2 mg/dL AO ADM SS Chloride [Moles/Vol] 95 mmol/L Invalid Interpretation Code 98 - 107 mmol/L AO ADM SS CO2 [Moles/Vol] 27 mmol/L Invalid Interpretation Code 22 - 29 mmol/L AO ADM SS Creatinine [Mass/Vol] 8.91 mg/dL Invalid Interpretation Code 0.70 - 1.30 mg/dL AO ADM SS Electrolyte Balance 13.0 mEq/L Invalid Interpretation Code 4.0 - 15.0 mEq/L AO ADM SS Eosinophil, Absolute 0.20 103/mcL Invalid Interpretation Code 0.00 - 0.40 10^3/mcL AO Auto Heme SS Eosinophils/100 WBC (Bld) 3.3 % Invalid Interpretation Code 0.0 - 7.0 % AO Auto Heme SS Erythrocyte distribution width (RBC) [Ratio] 17.9 % Invalid Interpretation Code 11.5 - 14.5 % AO Auto Heme SS Globulin 3.6 G/dL Invalid Interpretation Code AO ADM SS Glucose [Mass/Vol] 94 mg/dL Invalid Interpretation Code 70 - 105 mg/dL AO ADM SS Hematocrit (Bld) [Volume fraction] 35.4 % Invalid Interpretation Code 42.0 - 52.0 % AO Auto Heme SS Hemoglobin (Bld) [Mass/Vol] 11.7 G/dL Invalid Interpretation Code 14.0 - 18.0 G/dL AO Auto Heme SS Lipase [Catalytic activity/Vol] 39 U/L Invalid Interpretation Code 73 - 393 U/L AO ADM SS Lymphocyte, Absolute 0.20 103/mcL Invalid Interpretation Code 0.77 - 3.85 10^3/mcL AO Auto Heme SS Lymphocytes/100 WBC (Bld) 4.2 % Invalid Interpretation Code 10.0 - 50.0 % AO Auto Heme SS MCH (RBC) [Entitic mass] 28.2 pg Invalid Interpretation Code 27.0 - 31.2 pg AO Auto Heme SS MCHC (RBC) [Mass/Vol] 33.2 G/dL Invalid Interpretation Code 31.8 - 35.4 G/dL AO Auto Heme SS MCV (RBC) [Entitic vol] 85.0 fL Invalid Interpretation Code 80.0 - 94.0 fL AO Auto Heme SS Monocyte, Absolute 0.30 103/mcL Invalid Interpretation Code 0.15 - 1.00 10^3/mcL AO Auto Heme SS Monocytes/100 WBC (Bld) 4.9 % Invalid Interpretation Code 1.7 - 13.0 % AO Auto Heme SS Neutrophil, Absolute 4.50 103/mcL Invalid Interpretation Code 2.85 - 6.16 10^3/mcL AO Auto Heme SS Neutrophils/100 WBC (Bld) 87.5 % Invalid Interpretation Code 37.0 - 80.0 % AO Auto Heme SS Platelet mean volume (Bld) [Entitic vol] 6.5 fL Invalid Interpretation Code 7.4 - 10.4 fL AO Auto Heme SS Platelets (Bld) [#/Vol] 286 103/mcL Invalid Interpretation Code 130 - 400 10^3/mcL AO Auto Heme SS Potassium [Moles/Vol] 4.5 mmol/L Invalid Interpretation Code 3.5 - 5.1 mmol/L AO ADM SS Protein [Mass/Vol] 7.2 G/dL Invalid Interpretation Code 6.4 - 8.2 G/dL AO ADM SS RBC (Bld) [#/Vol] 4.16 106/mcL Invalid Interpretation Code 4.04 - 6.13 10^6/mcL AO Auto Heme SS Sodium [Moles/Vol] 135 mmol/L Invalid Interpretation Code 136 - 145 mmol/L AO ADM SS Urea nitrogen [Mass/Vol] 39 mg/dL Invalid Interpretation Code 7 - 18 mg/dL AO ADM SS Urea nitrogen/Creatinine [Mass ratio] 4 ratio Invalid Interpretation Code 7 - 27 ratio AO ADM SS WBC (Bld) [#/Vol] 5.20 103/mcL Invalid Interpretation Code 4.60 - 10.80 10^3/mcL AO Auto Heme SS LABORATORYOrdered By: SYSTEM SYSTEM on 10-11-2021 GFR 8 ml/min/1.73sqm Invalid Interpretation Code AO Chemistry S GFR Non- 6 ml/min/1.73sqm Invalid Interpretation Code AO Chemistry S LABORATORYOrdered By: SYSTEM SYSTEM on 06-15-2021 Base excess Calc (BldMV) [Moles/Vol] 10.0 mEq/L Invalid Interpretation Code 4.0 - 15.0 mEq/L AH ADM SS Basophils (Bld) [#/Vol] 0.10 103/mcL Invalid Interpretation Code 0.00 - 0.27 10^3/mcL AH Remisol SS Basophils/100 WBC (Bld) 1.3 % Invalid Interpretation Code 0.0 - 2.5 % AH Remisol SS Calcium [Mass/Vol] 8.5 mg/dL Invalid Interpretation Code 8.4 - 10.1 mg/dL AH ADM SS Chloride [Moles/Vol] 98 mmol/L Invalid Interpretation Code 98 - 110 mEq/L AH ADM SS CO2 [Moles/Vol] 29 mmol/L Invalid Interpretation Code 22 - 32 mEq/L AH ADM SS Creatinine [Mass/Vol] 10.40 mg/dL Invalid Interpretation Code 0.60 - 1.40 mg/dL AH ADM SS Eosinophils (Bld) [#/Vol] 0.60 103/mcL Invalid Interpretation Code 0.00 - 0.65 10^3/mcL Remisol SS Eosinophils/100 WBC (Bld) 8.8 % Invalid Interpretation Code 0.0 - 6.0 % AH Remisol SS Erythrocyte distribution width (RBC) [Ratio] 16.4 % Invalid Interpretation Code 11.5 - 15.5 % Remisol SS GFR/1.73 sq M.predicted among blacks MDRD (S/P/Bld) [Vol rate/Area] 7 ml/min/1.73sqm Invalid Interpretation Code AH ADM SS GFR/1.73 sq M.predicted among non-blacks MDRD (S/P/Bld) [Vol rate/Area] 5 ml/min/1.73sqm Invalid Interpretation Code ADM SS Glucose [Mass/Vol] 95 mg/dL Invalid Interpretation Code 70 - 110 mg/dL ADM SS Hematocrit (Bld) [Volume fraction] 26.4 % Invalid Interpretation Code 40.0 - 52.0 % Remisol SS Hemoglobin (Bld) [Mass/Vol] 8.5 G/dL Invalid Interpretation Code 13.0 - 17.5 G/dL Remisol SS Lymphocytes (Bld) [#/Vol] 0.70 103/mcL Invalid Interpretation Code 0.90 - 4.32 10^3/mcL Remisol SS Lymphocytes/100 WBC (Bld) 9.9 % Invalid Interpretation Code 20.0 - 40.0 % Remisol SS MCH (RBC) [Entitic mass] 28.9 pg Invalid Interpretation Code 27.0 - 33.0 pg AH Remisol SS MCHC (RBC) [Mass/Vol] 32.3 G/dL Invalid Interpretation Code 32.0 - 36.0 G/dL AH Remisol SS MCV (RBC) [Entitic vol] 89.3 fL Invalid Interpretation Code 81.0 - 100.0 fL AH Remisol SS Monocytes (Bld) [#/Vol] 0.70 103/mcL Invalid Interpretation Code 0.09 - 1.40 10^3/mcL AH Remisol SS Monocytes/100 WBC (Bld) 10.1 % Invalid Interpretation Code 2.0 - 13.0 % AH Remisol SS Neutrophils (Bld) [#/Vol] 4.80 103/mcL Invalid Interpretation Code 2.25 - 8.10 10^3/mcL AH Remisol SS Neutrophils/100 WBC (Bld) 69.9 % Invalid Interpretation Code 50.0 - 75.0 % AH Remisol SS Platelet mean volume (Bld) [Entitic vol] 6.5 fL Invalid Interpretation Code 6.4 - 10.5 fL AH Remisol SS Platelets (Bld) [#/Vol] 249 103/mcL Invalid Interpretation Code 150 - 450 10^3/mcL AH Remisol SS Potassium [Moles/Vol] 4.7 mmol/L Invalid Interpretation Code 3.5 - 5.0 mEq/L AH ADM SS RBC (Bld) [#/Vol] 2.96 106/mcL Invalid Interpretation Code 4.50 - 6.00 10^6/mcL AH Remisol SS Sodium [Moles/Vol] 137 mmol/L Invalid Interpretation Code 136 - 145 mEq/L AH ADM SS Urea nitrogen [Mass/Vol] 50.0 mg/dL Invalid Interpretation Code 8.0 - 22.0 mg/dL AH ADM SS Urea nitrogen/Creatinine [Mass ratio] 4.8 ratio Invalid Interpretation Code 10.0 - 22.0 ratio AH ADM SS WBC (Bld) [#/Vol] 6.80 103/mcL Invalid Interpretation Code 4.50 - 10.80 10^3/mcL AH Remisol SS No Panel Informationon 03-12 SEE SEPARATE REPORT [facility]-Tr anspla Arian Work Phone: Echocardiogramon 02-28-2021 Echocardiography Please click on the link to view the study images Normal [facility]- [place] [address]100 Work Phone: Hemoglobin A1Con 02-28-2021 Glucose [Mass/Vol] 120 mg/dL [facility]-Nep hrolo [facility]-[place] 2480 DO Work Phone: HbA1c (Bld) [Mass fraction] 5.8 % Abnormal [facility]Nephrol[facility]-[place] 2480 DO Work Phone: Comment on above: Diagnosis of Diabete s-Adults Non-Diabetic: < or = 5.6% Increased risk for developing diabetes: 5.7-6.4% Diagnostic of diabetes: > or = 6.5%. Monitoring of Diabetes Age (y) Therapeutic Goal (%) Adults: >18 <7.0 Pediatrics: 13-18 <7.5 7-12 <8.0 0- 6 7.5-8.5 Citizen Of [place] Diabetes Association. Diabetes Care 33(S1), Jun 2009. Laboratory - Chemistry and C hemistry - challengeon 02-28-2021 Anion gap [Moles/Vol] 21 mmol/L above high threshold 10 - 20 [facility] 2480 DO Work Phone: Calcium [Mass/Vol] 8.0 mg/dL below low threshold 8.6 - 10.6 [facility] 2480 DO Work Phone: Chloride [Moles/Vol] 95 mmol/L below low threshold 98 - 107 [facility] 2480 DO Work Phone: CO2 [Moles/Vol] 30 mmol/L 21 - 32 [facility]ro lo [facility]-[place] 2480 DO Work Phone: Creatinine [Mass/Vol] 16.49 mg/dL above high threshold See Below [facility] 2480 DO Work Phone: Comment on above: Reference Range: 0.5 0 - 1.30 Glucose [Mass/Vol] 76 mg/dL 74 - 99 [facility]-[place] 2480 DO Work Phone: Potassium [Moles/Vol] 3.8 mmol/L 3.5 - 5.3 [facility]- [facility] 2480 DO Work Phone: Sodium [Moles/Vol] 142 mmol/L 136 - 145 [facility] 2480 DO Work Phone: Urea nitrogen [Mass/Vol] 53 mg/dL above high threshold 6 - 23 [facility] 2480 DO Work Phone: No Panel Informationon 02-28 4 {mL/min/1.73m2} Abnormal >60 [facility]Neph duane [facility]-[place] 2480 DO Work Phone: Comment on above: CALCULATIONS OF DEANNA MATED GFR ARE PERFORMED USING THE MDRD STUDY EQUATION FOR THE IDMS-TRACEABLE CREATININE METHODS. CLIN CHEM 2007;53:766-72 3 {mL/min/1.73m2} Abnormal >60 [facility] dunae [facility] 2480 DO Work Phone: Office VIsit (Pre-Transplant Surgery)on 02-28-2021 Follow-up visit Diagnosis/Problems Assessed Pre-transplant evaluation for kidney transplant (V72.83) (Z01.818) Orders Pre-transplant evaluation for kidney transplant Basic Metabolic Panel; Status:In Progress - Specimen/Data Collected; Done: [id number] Perform:Lab Services - Lab To Draw (Blood Test); Order Comments:pre-transplant C0500; Due:[id number];Ordered; For:Pre-transplant evaluation for kidney transplant; Ordered By:Nevaeh Bowens; Hemoglobin A1C; Status:In Progress - Specimen/Data Collected; Done: [id number] Perform:Lab Services - Lab To Draw (Blood Test); Order Comments:pre-transplant C0500; Due:[id number];Ordered; For:Pre-transplant evaluation for kidney transplant; Ordered By:Nevaeh Bowens; Patient Discussion/Summary Impression: Kidney Transplant: Review of Listing Status Patient Discussion: Annual Review of Kidney Transplant Listing For CARLITOS DYE. HEALTH SCREENING NEEDED: [] Colonoscopy Males: [] PSA - last done 08/18/2018 IMAGING NEEDED: Age-based protocol imaging needed for transplant evaluation: Standard imaging: [] Chest X-ray PA lateral - last done 08/18/2018 Cross sectional imaging: [] CT scan abdomen/pelvis to evaluate Aortoiliac vascular disease - last done 09/08/2018 [] Kidney Ultrasound to evaluate for potential renal cell carcinoma [] MRI Brain to evaluate for cerebrovascular aneurysm Cardiovascular imaging: [] Complete ECHO - last done 08/03/2019 [] Cardiac stress testing - last done 10/20/2018 [] CT calcium scoring OTHER: 1.Renal failure - Currently on PD which is working well for him - Had severe hypotension on HD in 2020; will need to check cardiovascular function 2. Non ischemic cardiomyopathy - Cardiology notes documented EF as low as 10% in the past which led to the implant of ICD in 2016 - Heart function on last ECHO has improved with EF of 55-60% - Last stress test showed a mildly dilated left ventricle but no active ischemia - Follows with roving or yarn color checker regularly 3. Central venous stenosis - Trying to obtain details from routine hospital - Unknown if he has true SVC syndrome without records - Will check bilateral subclavian veins and internal jugular vein to evaluate vein patency 4. Other - Reviewed with him that he has a high antibody levels of 100% - High risk of rejection with next transplant if he misses any immunosuppression medication discussed with the patient. Surgical Summary: Will present to selection committee for discussion as a potential candidate for active listing at [facility]. Medical Evaluation to be Performed: Nephrology, Transplant Clinical Science Consultant and Transplant Combine Mechanic. - Patient understands these requirements and will proceed with evaluation and possibility of listing for transplant. Based on today's encounter: CARLITOS is a reasonable candidate. - Patient will be discussed at Transplant Selection Committee. By signing my name below, I, Martha Reza, attest that this documentation has been prepared under the direction and in the presence of Dr. Tyler Monteiro. All medical record entries made by the Scribe were at my direction and personally dictated by me. I have reviewed the chart and agree that the record accurately reflects my personal performance of the history, physical exam, discussion and plan. Chief Complaint Annual follow up while on kidney transplant list History of Present Illness Kidney Transplant Reason For Visit: Pre-Transplant . Annual review of listing status. CKD: end stage renal disease. TIEDI: previous UTx and PRA 100%. Listing date: 01/20/2019, currently status 7 Hemodialysis: Friday, Friday, Friday. Dialysis Center: [facility] Disease Etiology: Congenital anomalies of kidneys. Compliance/Tolerance/Contr ol: good compliance with treatment. Primary Care Provider: Dr. Tom Conte (tel: [phone]). Referral: Dr. Chaya Owens (tel: [phone]; fax: [phone]). I am seeing CARLITOS SWEENEY at the referring provider's request for surgical suitability for kidney transplant candidate listing at [facility]. History of Present Illness Comments: Mr. 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 He has had two previous kidney transplants in 2006 and 2011. 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 The patient's current cPRA is 100%. He started on peritoneal dialysis earlier this year due to hypotension during hemodialysis. Today, the patient presents for an annual review of kidney transplant listing status. The patient also has a past medical history of severe cardiomyopathy with an implanted ICD. He currently has problems with upper extremity venous outflow. 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 Otherwise, no nausea, vomiting, or diarrhea. Eating and drinking well. No chest (more content not included)... Normal [facility] Transplant SW Assessment Upd ate 02-28-2021 Transplant SW Assessment Update Note Body SW met with pt and sig other, Marina, for psychosocial update. Pt was engaged. Sig other was quiet but supportive. Pt's R hand was bandaged, he stating he had 2nd degree gallegos on his hands and leg from cooking on grill. Pt also had all of his bottom teeth removed. He states he is gong to have the remaining teeth removed at a later date. Pt is doing home PD since Aug 2020. He does treatments every night for 9 hours. Pt states there is no change with his insurance, [employer]. He should not require a PAP for transplant medications. Pt identifies his sig other, Marina , as primary support. Pt and sig other live together. Pt states his previous primary support is no longer in the picture. Pt's cousin, Andres , as back up support. Pt states he has other family members and friends are available as well. All supports drive and able to transport to post op appointments. Pt reports his mood as good, but admits to some periods of depression. Pt states he will talk to his sig other. Pt reports he has cut down on his cigarette use, smoking 1/2ppd. He denies any alcohol or illicit drug use. SW discussed the inpatient transplant stay and the need for support to be a part of education session. SW discussed the potential need for dialysis after transplant and treatments would be at [facility]. SW also discussed the frequency of post op appointments - once a week MD visits and twice a week labs for 2-3 months. Pt and sig other express understanding. Pt is moderate psychosocial risk due to previous noncompliance and changing support. Signatures Electronically signed by : MCKENZIE Burns; Feb 28 2021 1:36PM EST (Author) Normal Touchworks No Panel Informationon 02-13 SEE SEPARATE REPORT [facility] [place] 2100 Work Phone: XR Chest PA and Lateralon IMPRESSION: Free air beneath the diaphragm. After discussion with Dr. Alaniz, it was determined that the patient recently had peritoneal dialysis. The chest is clear Findings discussed with Dr. Alaniz at 15[address] F[address] Rod Marker: HENRY Transcribe Date/Time: Nov 15 2020 3:13P Dictated by : ISIDRO HUGO MD This examination was interpreted and the report reviewed and electronically signed by: ISIDRO HUGO MD on Nov 15 2020 3:28PM EST DIVISION OF RADIOLOGY * * *Final Report* * * DATE OF EXAM: Nov 15 2020 3:12PM WOX 5291 - XR CHEST 2V FRONTAL/LAT / PROCEDURE REASON: Cough * * * * Physician Interpretation * * * * EXAMINATION: CHEST RADIOGRAPH (2 VIEW FRONTAL & LATERAL) CLINICAL HISTORY: Cough MQ: XC2_6 EXAM DATE/TIME: 11/15/2020 3:12 PM COMPARISON: 03/29/2019 RESULT: Lines, tubes, and devices: Left cardiac pacer and leads is unchanged Lungs and pleura: No consolidation. No lung mass. No pleural effusion. No pneumothorax. Cardiomediastinal silhouette: Normal cardiomediastinal silhouette. Bones and soft tissues: Unremarkable. Free air is seen beneath the diaphragm DIVISION OF RADIOLOGY Provider, Mary Ann Carbone - 11/15/2020 * * *Final Report* * * DATE OF EXAM: Nov 15 2020 3:12PM WOX 5291 - XR CHEST 2V FRONTAL/LAT / PROCEDURE REASON: Cough * * * * Physician Interpretation * * * * EXAMINATION: CHEST RADIOGRAPH (2 VIEW FRONTAL & LATERAL) CLINICAL HISTORY: Cough MQ: XC2_6 EXAM DATE/TIME: 11/15/2020 3:12 PM COMPARISON: 03/29/2019 RESULT: Lines, tubes, and devices: Left cardiac pacer and leads is unchanged Lungs and pleura: No consolidation. No lung mass. No pleural effusion. No pneumothorax. Cardiomediastinal silhouette: Normal cardiomediastinal silhouette. Bones and soft tissues: Unremarkable. Free air is seen beneath the diaphragm IMPRESSION IMPRESSION: Free air beneath the diaphragm. After discussion with Dr. Alaniz, it was determined that the patient recently had peritoneal dialysis. The chest is clear Findings discussed with Dr. Alaniz at [address] Marker: [facility] Transcribe Date/Time: Nov 15 2020 3:13P Dictated by : ISIDRO HUGO MD This examination was interpreted and the report reviewed and electronically signed by: ISIDRO HUGO MD on Nov 15 2020 3:28PM EST [facility] Radiology Study observation (narrative) [facility] XR Chest PA and LateralOrder ed By: Ccf Provider on 11-15-[address] [facility] IR DIALYSIS INJ W/ANGIOPLAST Yon 09-13-2020 IR DIALYSIS INJ W/ANGIOPLASTY Final Report DATE OF EXAM: Sep 13 2020 3:13PM AKA 0944 - IR DIALYSIS INJ W/ANGIOPLASTY / PROCEDURE REASON: esrd Physician Interpretation EXAM TITLE: RIGHT ARM FISTULOGRAM, ANGIOPLASTY OF CENTRAL STENOSIS WITH A 6 X 6, 9 X 6, AND 10 X 8 MUSTANG BALLOON DATE:09/13/2020 CLINICAL INDICATION/HISTORY: The patient now on. Peritoneal dialysis. Patient with multiple venous collaterals across chest. TECHNIQUE: All elements of maximal barrier technique including cap and mask, sterile gown, sterile gloves, a large sterile drape, hand hygiene and appropriate prep agent for cutaneous antisepsis were utilized and maintained during the procedure. Procedure performed by Brian Mendoza MD. Dictation software used to generate report, errors are common. After local anesthetic was infused, utilizing the micropuncture technique, the right arm AV fistula was accessed. A fistulogram was performed. This identified a similar area of central stenosis just prior to the pacing wires. The moderate degree of difficulty we were eventually able to cross the area of stenosis utilizing a Glidewire. Exchange out for a Bentson wire. The area stenosis was angioplastied with a 6 x 6 Viborg balloon followed by 9 x 6 and a 10 x 8. The completion the case, there is improvement in area of stenosis. Catheters wires removed and pressure is held. FINDINGS: No evidence of inflow stenosis. No evidence of outflow stenosis. Area of central stenosis similar to prior fistulogram's, improvement status post angioplasty with a 6, 9, and 10 Viborg balloon IMPRESSION: Improvement of area of central stenosis status post angioplasty. 114 MG Y, 12.2 minutes fluoroscopy time, 48 cc contrast Fishing Rod Marker: HENRY Transcribe Date/Time: Sep 14 2020 10:56A Dictated by : BRIAN MENDOZA MD This examination was interpreted and the report reviewed and electronically signed by: BRIAN MENDOZA MD on Sep 14 2020 11:03AM EST Normal [facility] IR DIALYSIS INJ W/ANGIOPLAST Yon 02-07-2020 IR DIALYSIS INJ W/ANGIOPLASTY Final Report DATE OF EXAM: Feb 07 2020 7:44AM [facility] 09 - IR DIALYSIS INJ W/ANGIOPLASTY / PROCEDURE REASON: esrd Physician Interpretation EXAM TITLE: ULTRASOUND-GUIDED INTERROGATION OF RIGHT ARM AV FISTULA, FISTULOGRAM, ANGIOPLASTY OF CENTRAL STENOSIS WITH A 9 X 16 10 X 60 MUSTANG DATE:02/03/2020 CLINICAL INDICATION/HISTORY: Central venous swelling, likely outflow stenosis Dictation software used to generate report, errors are common. TECHNIQUE: All elements of maximal barrier technique including cap and mask, sterile gown, sterile gloves, a large sterile drape, hand hygiene and appropriate prep agent for cutaneous antisepsis were utilized and maintained during the procedure. Procedure performed by Brian Mendoza MD. The ultrasound was used to interrogate the right arm AV fistula. No evidence of inflow stenosis was observed by ultrasound. Ultrasound images were recorded. The right arm AV fistula was accessed utilizing the micropuncture technique technique and the sheath was upsized to a 6 [place] sheath. A fistulogram was performed. Central access was obtained. Utilizing a Glidewire and a glide catheter we were able to traverse the area of stenosis just proximal to the pacing wires, and a similar to area to the previous area stenosis. Successful angioplasty of the area stenosis was performed utilizing a 9 x 60 and 10 x 60 Viborg balloon. The completion the case catheters wires removed and pressure is held. FINDINGS: No evidence of inflow stenosis by ultrasound. No evidence of outflow stenosis, large AV fistula Area of central stenosis, similar to previous, in area associated with pacing wires, successful angioplasty with 9 x 6 and 10 x 6 Viborg balloon. IMPRESSION: Successful angioplasty of central stenosis. 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 Otheron 10-20-2018 Interpreted by: MEHTA10/20/18 16:37MRN: [id number] Name: CARLITOS SWEENEY STUDY:CARDIAC STRESS/REST INJECTION; CARDIAC STRESS/REST (MYOCARDIALPERFUSION/MIBI) ; PART 2 STRESS OR REST (NO CHARGE); 10/20/2018 3:51pm; 10/20/2018 3:23 pm INDICATION:cardiac risk stratification for renal transplant. 43-year-old malewith history of congenital kidney disease, ESRD, status postpacemaker, referred for preop risk assessment COMPARISON:None. [id number]; [id number] ORDERING CLINICIAN:NAPOLEON WU TECHNIQUE:DIVISION OF NUCLEAR MEDICINEPHARMACOLOGIC STRESS MYOCARDIAL PERFUSION SCAN, ONE DAY PROTOCOL The patient received an intravenous dose of 10.3 mCi of Tc-99mMyoview and resting emission tomographic (SPECT) images of themyocardium were acquired. The patient then received an intravenousinfusion of 0.4mg regadenoson (Lexiscan) followed by an additionaldose of 30.6 mCi of Tc-99m Myoview. Stress phase SPECT images of themyocardium were then acquired. These included ECG-gated images toassess and quantify ventricular function. FINDINGS:Stress images demonstrate a small fixed are of reduced activity alongthe mid to distal anterior septal wall, but which thickens normallyon the gated images, and which therefore, likely reflects attenuationartifact.Additi onally, there is small fixed defect in the basal inferoseptalsegment which does demonstrate a reduction in systolic thickening,and which is therefore, is consistent with a small area of priorinfarction.The remainder of the left ventricle demonstrates normal perfusionGated images demonstrate borderline LV function with a calculatedejection fraction 45% (normal above 45%).Moderately dilated left ventricle with end-diastolic volume of 164 mL IMPRESSION:1. A small area of prior infarct is seen in the basal inferior septalwall2. No additional evidence of stress-induced myocardial ischemia orinfarct.3. Borderline LV function with an EF of 45%.4. Moderately dilated left ventricle. I personally reviewed the images/study and I agree with the findingsas stated. This study was interpreted at [place], [place].Electronically signed by: ABRAHAM 10/20/18 16:37 Normal [facility] Work Phone: [id number] [id number] [address] [place] [address], [address] [place] [address], [address], [place] [address]Psj [phone] and [place] [facility] Stress TestPatient Name: Carlitos Dye Ordering Physician:Study Date: 10/20/2018 Reading Physician: Polly Oneil MDMRN/PID: [id number] Supervising Physician: Polly Oenil MDAccession/Order#: [id number] Referring Physician: [id number] Jam MARTINate of : 1975 PCP:Gender: M Fellow:Admission Status: Outpatient Mdm Sr: Angelita Allen: 180.34 cm Nurse: Balbina MooreWeight: 79.38 kg Product Development Consultant: NABSA: 1.99 m2 Technologist:BMI: 24.41 kg/m2 Additional Staff:Age: 43 years cc report to:Patient Location: [facility] report to:Stress LabStudy Type: Circa Nuclear OrderDiagnosis/ICD: I50.9-Heart failure, unspecified; Z01.818-Encounter for otherpreprocedural examinationIndication: Congestive Heart Failure and Pretransplant evaluationProcedure/CPT: Stress Test Interpretation-[id number]; Stress Test Supervision-[id number] Details: Correct procedure and correct patient verified verbally and withID Band checked.Patient History: Previous deep vein thrombosis. 43 yo male with congenital kidney disease for pretransplant evaluation. Currently on hemodialysis. [facility] kidney transplant 1996 and 2011, S/P pacemaker ICD 2014 (est), hypertension.Medications: The patient's prescribed medication is Renvela, Tumms,.Patient Performance: Patient received a total of 0.4 mg of Regadenoson at 2:42:48 PM. Patient received a total of 30.6 mCi of Myoview at 2:43:13 PM. The patient did not exercise during infusion. The peak heart rate achieved was 80 bpm, which was 46 % of the age predicted target heart rate of 175 bpm. The resting blood pressure was 176/105 mmHg with a heart rate of 60 bpm. The patient developed vague complaints typical for Lexiscan during the stress exam. The blood pressure response was normal. The test was terminated due to: completed lab protocol. Patient has met the discharge criteria and is discharged to home.Baseline ECG: Resting ECG showed normal sinus rhythm.Stress ECG: No ST changes. Peak BP 140/92 Peak HR 80.Stress Stage Data:+--+------+-------+-- +\F\HR\F \Sys BP\F\Joshi BP\F\Comments \F\+--+------+-------+---- +\F\60\F\1 76 \F\105 \F\ \F\+--+------+-------+---- +\F\60\F\ \F\ \F\Lexiscan 0.4 mg IVP \F\+--+------+-------+---- +\F\78\F\1 40 \F\92 \F\01:00 vague symptoms\F\+--+------+---- ---+ +\ F\79\F\153 \F\94 \F\02:00 \F\+--+------+-------+---- +Recovery ECG: Recovery ECG showed normal sinus rhythm, with no abnormal findings. The heart rate recovery was normal.+ +--+-- ----+-------+--------+\F\ \F\HR\F\Sys BP\F\Joshi BP\F\Comments\F\+--------- ---+--+------+-------+---- ----+\F\Recovery I \F\80\F\161 \F\100 \F\2 min \F\+ +--+------ +-------+--------+\F\Recov abdulkadir II \F\71\F\167 \F\98 \F\4 min \F\+ +--+------ +-------+--------+\F\Recov abdulkadir III\F\74\F\160 \F\101 \F\6 min \F\+ +--+------ +-------+--------+\F\Recov abdulkadir IV \F\ \F\ \F\ \F\ \F\+ +--+------ +-------+--------+Summary: 1. No clinical or electrocardiographic evidence for ischemia at a maximal infusion.2. Nuclear image results are reported separately.3. The adequate level of stress was achieved.[id number] Alexandra Russ MDElectronically signed on 10/20/2018 at 4:27:57 PM Final [facility]Trans[facility] nt[facility] Work Phone: Otheron 09-29-2018 67 1 [facility]Trans[facility] nt-[facility] Work Phone: [phone] [facility] Work Phone: 88 1 [facility] Work Phone: [phone] [facility] Work Phone: [phone] [facility] Work Phone: 57 1 [facility] Work Phone: [id number] [facility] Work Phone: 11 1 [facility] Work Phone: [phone] 1 [facility] Work Phone: 142 1 [facility] Work Phone: 195 1 [facility] Work Phone: [phone] [facility] Work Phone: [phone] [facility] Work Phone: -[phone] 1 [facility] Work Phone: Normal sinus rhythm [facility]-Tr anspla nt-[facility] Work Phone: Vital Signs Date Time Vital Sign Value Performing Clinician Jeana monroe 02-15-2025 13:52-0400 Body height 180.3 cm Loida Perea MD Work Phone: [facility] 02-15-2025 13:52-0400 Body mass index (BMI) [Ratio] 23.26 kg/m2 Loida Perea MD Work Phone: [facility] 02-15-2025 13:52-0400 Body temperature 97.81 [degF] Loida Perea MD Work Phone: [facility] 02-15-2025 13:52-0400 Body weight 75.66 kg Loida Perea MD Work Phone: [facility] 02-15-2025 13:52-0400 Diastolic blood pressure 80 mm[Hg] Loida Perea MD Work Phone: [facility] 02-15-2025 13:52-0400 Heart rate 79 /min Loida Perea MD Work Phone: [facility] 02-15-2025 13:52-0400 SaO2% (BldA) [Mass fraction] 98 % Loida Perea MD Work Phone: [facility] 02-15-2025 13:52-0400 Systolic blood pressure 163 mm[Hg] Loida Perea MD Work Phone: [facility] 02-15-2025 13:49-0400 Body height 180.3 cm Tonya garcia MD Work Phone: [facility] 02-15-2025 13:49-0400 Body mass index (BMI) [Ratio] 23.26 kg/m2 Tonya Bell MD Work Phone: [facility] 02-15-2025 13:49-0400 Body temperature 97.81 [degF] Toyna garcia MD Work Phone: [facility] 02-15-2025 13:49-0400 Body weight 75.66 kg Tonya garcia MD Work Phone: [facility] 02-15-2025 13:49-0400 Diastolic blood pressure 80 mm[Hg] Tonya Bell MD Work Phone: [facility] 02-15-2025 13:49-0400 Heart rate 79 /min Tonya garcia MD Work Phone: [facility] 02-15-2025 13:49-0400 SaO2% (BldA) [Mass fraction] 98 % Tonya Bell MD Work Phone: [facility] 02-15-2025 13:49-0400 Systolic blood pressure 163 mm[Hg] Tonya Bell MD Work Phone: [facility] 12-19-2024 15:39-0400 SaO2% (BldA) [Mass fraction] 99.1 % YARA GUERRERO MD [facility] 12-18-2024 08:32-0400 SaO2% (BldA) [Mass fraction] 94.2 % YARA GUERRERO MD [facility] 12-08-2024 12:21-0400 Diastolic blood pressure 89 mm[Hg] Jan Simeon MD MPH Work Phone: [facility] 12-08-2024 12:21-0400 Heart rate 78 /min Jan Simeon MD MPH Work Phone: [facility] 12-08-2024 12:21-0400 Respiratory rate 19 /min Jan Simeon MD MPH Work Phone: [facility] 12-08-2024 12:21-0400 SaO2% (BldA) [Mass fraction] 100 % Jan Simeon MD MPH Work Phone: [facility] 12-08-2024 12:21-0400 Systolic blood pressure 146 mm[Hg] Jan Simeon MD MPH Work Phone: [facility] 12-08-2024 06:01-0400 Body temperature 37 Jan Simeon MD MPH Work Phone: [facility] 12-08-2024 05:52-0400 Body height 180.3 cm Jan Simeon MD MPH Work Phone: [facility] 12-08-2024 05:52-0400 Body mass index (BMI) [Ratio] 23.21 kg/m2 Jan Simeon MD MPH Work Phone: [facility] 12-08-2024 05:52-0400 Body temperature 97.7 [degF] Jan Simeon MD MPH Work Phone: [facility] 12-08-2024 05:52-0400 Body weight 75.5 kg Jan Simeon MD MPH Work Phone: [facility] 12-08-2024 05:51-0400 Body temperature 37.0 degrees Celsius GENERIC SCANNING [facility] Comment on above: Performed By: #### [id number] #### MARTINEZ Al ([id number]) [facility] ([facility]) [address] [place] [address] 12-08-2024 03:15-0400 Body temperature 97.6 [degF] Dr. Monie Alston DO Work Phone: [facility] 12-08-2024 03:15-0400 Diastolic blood pressure 95 mm[Hg] Dr. Monie Alston DO Work Phone: [facility] 12-08-2024 03:15-0400 Heart rate 83 /min Dr. Monie Alston DO Work Phone: [facility] 12-08-2024 03:15-0400 Respiratory rate 16 /min Dr. Monie Alston DO Work Phone: [facility] 12-08-2024 03:15-0400 SaO2% (BldA) [Mass fraction] 96 % Dr. Monie Alston DO Work Phone: [facility] 12-08-2024 03:15-0400 Systolic blood pressure 175 mm[Hg] Dr. Monie Alston DO Work Phone: [facility] 12-07-2024 23:22-0400 Diastolic blood pressure 96 mm[Hg] Dr. Monie Alston DO Work Phone: [facility] 12-07-2024 23:22-0400 Heart rate 84 /min Dr. Monie Alston DO Work Phone: [facility] 12-07-2024 23:22-0400 Respiratory rate 16 /min Dr. Monie Alston DO Work Phone: [facility] 12-07-2024 23:22-0400 SaO2% (BldA) [Mass fraction] 94 % Dr. Monie Alston DO Work Phone: [facility] 12-07-2024 23:22-0400 Systolic blood pressure 184 mm[Hg] Dr. Monie Alston DO Work Phone: [facility] 12-07-2024 21:39-0400 Body mass index (BMI) [Ratio] 23.6 kg/m2 Dr. Monie Alston DO Work Phone: [facility] 12-07-2024 21:39-0400 Body weight 76.[address] Monie Alston DO Work Phone: [facility] 12-07-2024 21:22-0400 Body height 180.[address] Monie Alston DO Work Phone: [facility] 12-07-2024 21:22-0400 Body temperature 96.8 [degF] Dr. Monie Alston DO Work Phone: [facility] 11-24-2024 12:16-0400 Body mass index (BMI) [Ratio] 23.46 kg/m2 Columba Praisler-Wood PERFORMANCE INSTRUCTOR.MANUFACTURING COORDINATOR Work Phone: [facility] 11-24-2024 12:16-0400 Body weight 76.3 kg Columba Praisler-Wood PERFORMANCE INSTRUCTOR.MANUFACTURING COORDINATOR Work Phone: [facility] 11-24-2024 12:16-0400 Diastolic blood pressure 82 mm[Hg] Columba Praisler-Wood PERFORMANCE INSTRUCTOR.MANUFACTURING COORDINATOR Work Phone: [facility] 11-24-2024 12:16-0400 Heart rate 97 /min Columba Praisler-Wood PERFORMANCE INSTRUCTOR.MANUFACTURING COORDINATOR Work Phone: [facility] 11-24-2024 12:16-0400 Respiratory rate 20 /min Columba Praisler-Wood PERFORMANCE INSTRUCTOR.MANUFACTURING COORDINATOR Work Phone: [facility] 11-24-2024 12:16-0400 SaO2% (BldA) [Mass fraction] 98 % Columba Praisler-Wood PERFORMANCE INSTRUCTOR.MANUFACTURING COORDINATOR Work Phone: [facility] 11-24-2024 12:16-0400 Systolic blood pressure 142 mm[Hg] Columba Praisler-Wood PERFORMANCE INSTRUCTOR.MANUFACTURING COORDINATOR Work Phone: [facility] 09-07-2024 08:17-0400 Body mass index (BMI) [Ratio] 22.9 kg/m2 Dr. Monie Alston DO Work Phone: [facility] 09-07-2024 08:17-0400 Body weight 74.[address] Monie Alston DO Work Phone: [facility] 09-07-2024 08:17-0400 Diastolic blood pressure 88 mm[Hg] Dr. Monie Alston DO Work Phone: [facility] 03-18-2025 08:17-0400 Heart rate 86 /min Dr. Monie Alston DO Work Phone: [facility] 09-07-2024 08:17-0400 Respiratory rate 18 /min Dr. Monie Alston DO Work Phone: [facility] 09-07-2024 08:17-0400 Systolic blood pressure 142 mm[Hg] Dr. Monie Alston DO Work Phone: [facility] 05-30-2024 11:53-0500 Body mass index (BMI) [Ratio] 22.32 kg/m2 Soila Maria PERFORMANCE INSTRUCTOR.MANUFACTURING COORDINATOR Work Phone: [facility] 05-30-2024 11:53-0500 Body temperature 99.5 [degF] Soila Maria PERFORMANCE INSTRUCTOR.MANUFACTURING COORDINATOR Work Phone: [facility] 05-30-2024 11:53-0500 Body weight 72.6 kg Soila Maria PERFORMANCE INSTRUCTOR.MANUFACTURING COORDINATOR Work Phone: [facility] 05-30-2024 11:53-0500 Diastolic blood pressure 69 mm[Hg] Soila Maria PERFORMANCE INSTRUCTOR.MANUFACTURING COORDINATOR Work Phone: [facility] 05-30-2024 11:53-0500 Heart rate 95 /min Soila Maria PERFORMANCE INSTRUCTOR.MANUFACTURING COORDINATOR Work Phone: [facility] 05-30-2024 11:53-0500 Respiratory rate 16 /min Soila Maria PERFORMANCE INSTRUCTOR.MANUFACTURING COORDINATOR Work Phone: [facility] 05-30-2024 11:53-0500 SaO2% (BldA) [Mass fraction] 97 % Soila Maria PERFORMANCE INSTRUCTOR.MANUFACTURING COORDINATOR Work Phone: [facility] 05-30-2024 11:53-0500 Systolic blood pressure 109 mm[Hg] Soila Maria PERFORMANCE INSTRUCTOR.MANUFACTURING COORDINATOR Work Phone: [facility] 04-13-2024 14:34-0400 Body mass index (BMI) [Ratio] 23.37 kg/m2 Soila Maria PERFORMANCE INSTRUCTOR.MANUFACTURING COORDINATOR Work Phone: [facility] 04-13-2024 14:34-0400 Body temperature 97.7 [degF] Soila Maria PERFORMANCE INSTRUCTOR.MANUFACTURING COORDINATOR Work Phone: [facility] 04-13-2024 14:34-0400 Body weight 76 kg Soila Maria PERFORMANCE INSTRUCTOR.MANUFACTURING COORDINATOR Work Phone: [facility] 04-13-2024 14:34-0400 Diastolic blood pressure 77 mm[Hg] Soila Maria PERFORMANCE INSTRUCTOR.MANUFACTURING COORDINATOR Work Phone: [facility] 04-13-2024 14:34-0400 Heart rate 83 /min Soila Maria PERFORMANCE INSTRUCTOR.MANUFACTURING COORDINATOR Work Phone: [facility] 04-13-2024 14:34-0400 Respiratory rate 18 /min Soila Maria PERFORMANCE INSTRUCTOR.MANUFACTURING COORDINATOR Work Phone: [facility] 04-13-2024 14:34-0400 SaO2% (BldA) [Mass fraction] 98 % Soila Maria PERFORMANCE INSTRUCTOR.MANUFACTURING COORDINATOR Work Phone: [facility] 04-13-2024 14:34-0400 Systolic blood pressure 159 mm[Hg] Soila Maria PERFORMANCE INSTRUCTOR.MANUFACTURING COORDINATOR Work Phone: [facility] 04-01-2024 14:28-0400 Body mass index (BMI) [Ratio] 23.37 kg/m2 Krislyn Aberegg PA Work Phone: [facility] 04-01-2024 14:28-0400 Body temperature 98.01 [degF] Krislyn Aberegg PA Work Phone: [facility] 04-01-2024 14:28-0400 Body weight 76 kg Krislyn Aberegg PA Work Phone: [facility] 04-01-2024 14:28-0400 Diastolic blood pressure 80 mm[Hg] Krislyn Aberegg PA Work Phone: [facility] 04-01-2024 14:28-0400 Heart rate 93 /min Krislyn Aberegg PA Work Phone: [facility] 04-01-2024 14:28-0400 Respiratory rate 18 /min Krislyn Aberegg PA Work Phone: [facility] 04-01-2024 14:28-0400 SaO2% (BldA) [Mass fraction] 98 % Krislyn Aberegg PA Work Phone: [facility] 04-01-2024 14:28-0400 Systolic blood pressure 140 mm[Hg] Krislyekaterina Aberegg PA Work Phone: [facility] 11-12-2023 10:25-0400 Diastolic blood pressure 70 mm[Hg] Gio Velarde MD Work Phone: [facility] 11-12-2023 10:25-0400 Heart rate 66 /min Gio Velarde MD Work Phone: [facility] 11-12-2023 10:25-0400 Systolic blood pressure 101 mm[Hg] Gio Velarde MD Work Phone: [facility] 06-04-2023 09:51-0500 Body height 182.9 cm Gio Velarde MD Work Phone: [facility] 06-04-2023 09:51-0500 Body temperature 97.2 [degF] Gio Velarde MD Work Phone: [facility] 06-04-2023 09:51-0500 Body weight 74.34 kg Gio Velarde MD Work Phone: [facility] 06-04-2023 09:51-0500 Diastolic blood pressure 65 mm[Hg] Gio Velarde MD Work Phone: [facility] 06-04-2023 09:51-0500 Heart rate 90 /min Gio Velarde MD Work Phone: [facility] 06-04-2023 09:51-0500 Respiratory rate 16 /min Gio Velarde MD Work Phone: [facility] 06-04-2023 09:51-0500 SaO2% (BldA) [Mass fraction] 99 % Gio Velarde MD Work Phone: [facility] 06-04-2023 09:51-0500 Systolic blood pressure 106 mm[Hg] Gio Velarde MD Work Phone: [facility] 03-13-2023 09:28-0400 Body height 180.3 cm Manjit Field MD Work Phone: [facility] 03-13-2023 09:28-0400 Body temperature 97 [degF] Manjit Field MD Work Phone: [facility] 03-13-2023 09:28-0400 Body weight 75.39 kg Manjit Field MD Work Phone: [facility] 03-13-2023 09:28-0400 Diastolic blood pressure 60 mm[Hg] Manjit Field MD Work Phone: [facility] 03-13-2023 09:28-0400 Heart rate 77 /min Manjit Field MD Work Phone: [facility] 03-13-2023 09:28-0400 Respiratory rate 16 /min Manjit Field MD Work Phone: [facility] 03-13-2023 09:28-0400 SaO2% (BldA) [Mass fraction] 100 % Manjit Field MD Work Phone: [facility] 03-13-2023 09:28-0400 Systolic blood pressure 97 mm[Hg] Manjit Field MD Work Phone: [facility] 01-20-2023 16:12-0400 Body weight 72.12 kg Lyudmila An APRN.MANUFACTURING COORDINATOR Work Phone: [facility] 01-20-2023 16:12-0400 Diastolic blood pressure 58 mm[Hg] Lyudmila An APRN.MANUFACTURING COORDINATOR Work Phone: [facility] 07-31-2023 16:12-0400 Heart rate 90 /min Lyudmila An APRN.MANUFACTURING COORDINATOR Work Phone: [facility] 01-20-2023 16:12-0400 Respiratory rate 16 /min Lyudmila An APRN.MANUFACTURING COORDINATOR Work Phone: [facility] 01-20-2023 16:12-0400 Systolic blood pressure 102 mm[Hg] Lyudmila An APRN.MANUFACTURING COORDINATOR Work Phone: [facility] 01-16-2023 16:12-[address] ERNST MACIEL MD [facility] 01-16-2023 16:12-[address] ERNST MACIEL MD [facility] 01-16-2023 16:12-0400 Body height 180.[address] ERNST MACIEL MD [facility] 01-16-2023 16:12-0400 Body temperature 98.06 [degF] DR ERNST MACIEL MD [facility] 01-16-2023 16:12-0400 Body weight [address] ERNST MACIEL MD [facility] 01-16-2023 16:12-0400 Diastolic Blood Pressure Non-Invasive [address] ERNST MACIEL MD [facility] 01-16-2023 16:12-0400 Heart rate 94 /min DR ERNST MACIEL MD [facility] 01-16-2023 16:12-0400 Respiratory rate 18 /min DR ERNST MACIEL MD [facility] 01-16-2023 16:12-0400 Systolic Blood Pressure Non-Invasive [address] ERNST MACIEL MD [facility] 12-28-2022 16:30-0400 Body temperature 98.06 [degF] CAROLE REICHFIELD DO [facility] 12-28-2022 16:30-0400 Diastolic Blood Pressure Non-Invasive 77 1 CAROLE REICHFIELD DO [facility] 12-28-2022 16:30-0400 Heart rate 86 /min CAROLE REICHFIELD DO [facility] 12-28-2022 16:30-0400 Respiratory rate 18 /min CAROLE REICHFIELD DO [facility] 12-28-2022 16:30-0400 Systolic Blood Pressure Non-Invasive 111 1 CAROLE REICHFIELD DO [facility] 12-09-2022 14:30-0400 Body height [address] HARVEY HARVEY MD [facility] 12-09-2022 14:30-0400 Body temperature 98.96 [degF] DR HARVEY HARVEY MD [facility] 12-09-2022 14:30-0400 Body weight [address] HARVEY HARVEY MD [facility] 12-09-2022 14:30-0400 Diastolic Blood Pressure Non-Invasive [address] HARVEY HARVEY MD [facility] 12-09-2022 14:30-0400 Heart rate 88 /min DR HARVEY HARVEY MD [facility] 12-09-2022 14:30-0400 Respiratory rate 18 /min DR HARVEY HARVEY MD [facility] 12-09-2022 14:30-0400 Systolic Blood Pressure Non-Invasive [address] HARVEY HARVEY MD [facility] 11-21-2022 14:21-0400 Body weight 68.49 kg Tom Conte MD Work Phone: [facility] 11-21-2022 14:21-0400 Diastolic blood pressure 84 mm[Hg] Tom Conte MD Work Phone: [facility] 11-21-2022 14:21-0400 Heart rate 86 /min Tom Conte MD Work Phone: [facility] 11-21-2022 14:21-0400 Respiratory rate 18 /min Tom Conte MD Work Phone: [facility] 11-21-2022 14:21-0400 Systolic blood pressure 134 mm[Hg] Tom Conte MD Work Phone: [facility] 09-23-2022 09:58-0400 SaO2% (BldA) [Mass fraction] 94 % GLORIA ACEVEDOPONDERIRAM [facility] Comment on above: Performed By: #### [id number] #### [facility],[address] [place] [address] 09-19-2022 11:20-0400 Body height 180.[address] Tom Conte Work Phone: [facility] 09-19-2022 11:20-0400 Body mass index (BMI) [Ratio] 21.6 kg/m2 Dr. Tom Conte Work Phone: [facility] 09-19-2022 11:20-0400 Body weight 70.[address] Tom Conte Work Phone: [facility] 09-19-2022 11:20-0400 Diastolic blood pressure 66 mm[Hg] Dr. Tom Conte Work Phone: [facility] 09-19-2022 11:20-0400 Heart rate 73 /min Dr. Tom Conte Work Phone: [facility] 09-19-2022 11:20-0400 Respiratory rate 16 /min Dr. Tom Conte Work Phone: [facility] 09-19-2022 11:20-0400 Systolic blood pressure 128 mm[Hg] Dr. Tom Conte Work Phone: [facility] 09-01-2022 03:38-0400 Body temperature 98.78 [degF] RAMIRO MARTIN MD [facility] 09-01-2022 03:38-0400 Diastolic Blood Pressure Non-Invasive 90 1 RAMIRO MARTIN MD [facility] 09-01-2022 03:38-0400 Heart rate 85 /min RAMIRO MARTIN MD [facility] 09-01-2022 03:38-0400 Respiratory rate 23 /min RAMIRO MARTIN MD [facility] 09-01-2022 03:38-0400 Systolic Blood Pressure Non-Invasive 149 1 RAMIRO MARTIN MD [facility] 09-01-2022 00:59-0500 Diastolic Blood Pressure Non-Invasive 90 1 RAMIRO MARTIN MD [facility] 09-01-2022 00:59-0500 Heart rate 86 /min RAMIRO MARTIN MD [facility] 09-01-2022 00:59-0500 Reason For Taking VItal Signs RAMIRO MARTIN MD [facility] 09-01-2022 00:59-0500 Respiratory rate 22 /min RAMIRO MARTIN MD [facility] 09-01-2022 00:59-0500 Systolic Blood Pressure Non-Invasive 148 1 RAMIRO MARTIN MD [facility] 08-31-2022 23:52-0500 Diastolic Blood Pressure Non-Invasive 79 1 RAMIRO MARTIN MD [facility] 08-31-2022 23:52-0500 Heart rate 86 /min RAMIRO MARTIN MD [facility] 08-31-2022 23:52-0500 Respiratory rate 24 /min RAMIRO MARTIN MD [facility] 08-31-2022 23:52-0500 Systolic Blood Pressure Non-Invasive 136 1 RAMIRO MARTIN MD [facility] 08-31-2022 22:00-0500 Body temperature 99.5 [degF] RAMIRO MARTIN MD [facility] 08-15-2022 21:13-0500 Diastolic Blood Pressure Non-Invasive 88 1 JEFF SOUZA DO [facility] 08-15-2022 21:13-0500 Heart rate 98 /min JEFF SOUZA DO [facility] 08-15-2022 21:13-0500 Reason For Taking VItal Signs JEFF SOUZA DO [facility] 08-15-2022 21:13-0500 Respiratory rate 18 /min JEFF SOUZA DO [facility] 08-15-2022 21:13-0500 Systolic Blood Pressure Non-Invasive 163 1 JEFF BOLEST [facility] 08-15-2022 18:04-0500 Body temperature 98.6 [degF] JEFF SOUZA DO [facility] 08-15-2022 18:04-0500 Diastolic Blood Pressure Non-Invasive 83 1 JEFF SOUZA DO [facility] 08-15-2022 18:04-0500 Heart rate 102 /min JEFF SOUZA DO [facility] 08-15-2022 18:04-0500 Respiratory rate 18 /min JEFF SOUZA DO [facility] 08-15-2022 18:04-0500 Systolic Blood Pressure Non-Invasive 159 1 JEFF SOUZA DO [facility] 07-30-2022 23:05-0500 Body temperature 97.8 [degF] Dr. Tom Conte Work Phone: [facility] 07-30-2022 23:05-0500 Diastolic blood pressure 78 mm[Hg] Dr. Tom Conte Work Phone: [facility] 07-30-2022 23:05-0500 Heart rate 78 /min Dr. Tom Conte Work Phone: [facility] 07-30-2022 23:05-0500 Respiratory rate 16 /min Dr. Tom Conte Work Phone: [facility] 07-30-2022 23:05-0500 SaO2% (BldA) [Mass fraction] 99 % Dr. Tom Conte Work Phone: [facility] 07-30-2022 23:05-0500 Systolic blood pressure 130 mm[Hg] Dr. Tom Conte Work Phone: [facility] 07-30-2022 19:27-0500 Body height 180.[address] Tom Conte Work Phone: [facility] 07-30-2022 19:27-0500 Body mass index (BMI) [Ratio] 21.2 kg/m2 Dr. Tom Conte Work Phone: [facility] 07-30-2022 19:27-0500 Body weight [address] Tom Conte Work Phone: [facility] 07-01-2022 13:45-0500 Body height 180.3 cm Manjit Field MD Work Phone: [facility] 07-01-2022 13:45-0500 Body temperature 98.91 [degF] Manjit Field MD Work Phone: [facility] 07-01-2022 13:45-0500 Body weight 69.36 kg Manjit Field MD Work Phone: [facility] 07-01-2022 13:45-0500 Diastolic blood pressure 80 mm[Hg] Manjit Field MD Work Phone: [facility] 07-01-2022 13:45-0500 Heart rate 89 /min Manjit Field MD Work Phone: [facility] 07-01-2022 13:45-0500 Respiratory rate 16 /min Manjit Field MD Work Phone: [facility] 07-01-2022 13:45-0500 SaO2% (BldA) [Mass fraction] 100 % Manjit Field MD Work Phone: [facility] 07-01-2022 13:45-0500 Systolic blood pressure 152 mm[Hg] Manjit Field MD Work Phone: [facility] 06-29-2022 20:41-0500 Body height 180.[address] Tom Conte Work Phone: [facility] Work Phone: 06-29-2022 20:41-0500 Body mass index (BMI) [Ratio] 21.2 kg/m2 Dr. Tom Conte Work Phone: [facility] 06-29-2022 20:41-0500 Body temperature 98 [degF] Dr. Tom Conte Work Phone: [facility] 06-29-2022 20:41-0500 Body weight 68.[address] Tom Conte Work Phone: 1(065)418-615182 [place] [address] 06-29-2022 20:41-0500 Diastolic blood pressure 89 mm[Hg] Dr. Tom Conte Work Phone: 8(575)781-475282 [place] [address] 06-29-2022 20:41-0500 Heart rate 87 /min Dr. Tom Conte Work Phone: 6(012)612-365182 [place] [address] 06-29-2022 20:41-0500 Respiratory rate 17 /min Dr. Tom Conte Work Phone: 5(530)764-380782 [place] [address] 06-29-2022 20:41-0500 SaO2% (BldA) [Mass fraction] 100 % Dr. Tom Conte Work Phone: 0(837)796-115582 [place] [address] 06-29-2022 20:41-0500 Systolic blood pressure 157 mm[Hg] Dr. Tom Conte Work Phone: 9(323)515-321382 [place] [address] 05-29-2022 11:01-0500 Body mass index (BMI) [Ratio] 21.4 kg/m2 Dr. Tom Conte Work Phone: 6(716)232-653682 [place] [address] 05-29-2022 11:01-0500 Body weight 69.[address] Tom Cotne Work Phone: 3(415)222-306382 [place] [address] 05-29-2022 11:01-0500 Diastolic blood pressure 84 mm[Hg] Dr. Tom Conte Work Phone: 4(289)238-848482 [place] [address] 05-29-2022 11:01-0500 Heart rate 77 /min Dr. Tom Conte Work Phone: 9(992)548-624182 [place] [address] 05-29-2022 11:01-0500 Respiratory rate 18 /min Dr. Tom Conte Work Phone: 0(451)606-058282 [place] [address] 05-29-2022 11:01-0500 SaO2% (BldA) [Mass fraction] 99 % Dr. Tom Conte Work Phone: 4(907)418-065482 [place] [address] 05-29-2022 11:01-0500 Systolic blood pressure 149 mm[Hg] Dr. Tom Conte Work Phone: [facility] 04-04-2022 16:06-0400 Diastolic blood pressure 86 mm[Hg] Celso Reed MD, MD Work Phone: [facility] 04-04-2022 16:06-0400 Respiratory rate 18 /min Celso barron MD, MD Work Phone: [facility] 04-04-2022 16:06-0400 SaO2% (BldA) [Mass fraction] 96 % Celso Reed MD, MD Work Phone: [facility] 04-04-2022 16:06-0400 Systolic blood pressure 145 mm[Hg] Celso Reed MD, MD Work Phone: [facility] 04-04-2022 15:18-0400 Heart rate 72 /min Celso barron MD, MD Work Phone: [facility] 04-04-2022 10:07-0400 Body temperature 97.5 [degF] Celso barron MD, MD Work Phone: [facility] 02-04-2022 14:36-0400 Body temperature 96.8 [degF] Dr. Tom Conte Work Phone: [facility] Work Phone: 02-04-2022 14:36-0400 Diastolic blood pressure 89 mm[Hg] Dr. Tom Conte Work Phone: [facility] Work Phone: 02-04-2022 14:36-0400 Heart rate 74 /min Dr. Tom Conte Work Phone: [facility] Work Phone: 02-04-2022 14:36-0400 Respiratory rate 16 /min Dr. Tom Conte Work Phone: [facility] Work Phone: 02-04-2022 14:36-0400 SaO2% (BldA) [Mass fraction] 98 % Dr. Tom Conte Work Phone: [facility] Work Phone: 02-04-2022 14:36-0400 Systolic blood pressure 157 mm[Hg] Dr. Tom Conte Work Phone: [facility] Work Phone: 02-04-2022 10:00-0400 Inhaled oxygen flow rate 3 L/min Dr. Tom Conte Work Phone: [facility] Work Phone: 02-04-2022 04:58-0400 Body height 180.[address] Tom Conte Work Phone: [facility] Work Phone: 02-04-2022 04:58-0400 Body mass index (BMI) [Ratio] 23.1 kg/m2 Dr. Tom Conte Work Phone: [facility] Work Phone: 02-04-2022 04:58-0400 Body weight 75.[address] Tom Conte Work Phone: [facility] Work Phone: 01-27-2022 22:24-0400 Body temperature 98.42 [degF] DR HARVEY HARVEY MD [facility] 01-27-2022 22:24-0400 Diastolic blood pressure 102 mm[Hg] DR HARVEY HARVEY MD [facility] 01-27-2022 22:24-0400 Heart rate 94 /min DR HARVEY HARVEY MD [facility] 01-27-2022 22:24-0400 Respiratory rate 24 /min DR HARVEY HARVEY MD [facility] 01-27-2022 22:24-0400 Systolic blood pressure 196 mm[Hg] DR HARVEY HARVEY MD [facility] 11-27-2021 10:36-0400 Body mass index (BMI) [Ratio] 22.8 kg/m2 Dr. Tom Conte Work Phone: [facility] Work Phone: 11-27-2021 10:36-0400 Body weight 74.[address] Tom Conte Work Phone: [facility] Work Phone: 11-27-2021 10:36-0400 Diastolic blood pressure 72 mm[Hg] Dr. Tom Conte Work Phone: [facility] Work Phone: 11-27-2021 10:36-0400 Heart rate 70 /min Dr. Tom Conte Work Phone: [facility] Work Phone: 11-27-2021 10:36-0400 Respiratory rate 18 /min Dr. Tom Conte Work Phone: [facility] Work Phone: 11-27-2021 10:36-0400 SaO2% (BldA) [Mass fraction] 97 % Dr. Tom Conte Work Phone: [facility] Work Phone: 11-27-2021 10:36-0400 Systolic blood pressure 135 mm[Hg] Dr. Tom Conte Work Phone: [facility] Work Phone: 10-18-2021 10:26-0400 Body weight 78.47 kg Marina Marley APRN.MANUFACTURING COORDINATOR Work Phone: [facility] 10-18-2021 10:26-0400 Diastolic blood pressure 86 mm[Hg] Marina Marley APRN.MANUFACTURING COORDINATOR Work Phone: [facility] 10-18-2021 10:26-0400 Heart rate 72 /min Marina Tannhof PERFORMANCE INSTRUCTOR.MANUFACTURING COORDINATOR Work Phone: [facility] 10-18-2021 10:26-0400 Respiratory rate 16 /min Marina Noguerahof PERFORMANCE INSTRUCTOR.MANUFACTURING COORDINATOR Work Phone: [facility] 10-18-2021 10:26-0400 Systolic blood pressure 134 mm[Hg] Marina Noguerahof PERFORMANCE INSTRUCTOR.MANUFACTURING COORDINATOR Work Phone: [facility] 10-11-2021 19:49-0400 Diastolic blood pressure 74 mm[Hg] SHIELA BALDERAS MD [facility] 10-11-2021 19:49-0400 Heart rate 86 /min SHIELA BALDERAS MD [facility] 10-11-2021 19:49-0400 Respiratory rate 18 /min SHIELA BALDERAS MD [facility] 10-11-2021 19:49-0400 Systolic blood pressure 126 mm[Hg] SHIELA BALDERAS MD [facility] 10-11-2021 17:45-0400 Body temperature 98.6 [degF] SHIELA BALDERAS MD [facility] 10-11-2021 17:45-0400 Body weight 73 kg SHIELA BALDERAS MD [facility] 10-11-2021 17:45-0400 Diastolic blood pressure 70 mm[Hg] SHIELA BALDERAS MD [facility] 10-11-2021 17:45-0400 Heart rate 88 /min SHIELA BALDERAS MD [facility] 10-11-2021 17:45-0400 Respiratory rate 18 /min SHIELA BALDERAS MD [facility] 10-11-2021 17:45-0400 Systolic blood pressure 135 mm[Hg] SHIELA BALDERAS MD [facility] 08-21-2021 09:51-0500 Body height 180.[address] Tom Conte Work Phone: [facility] Work Phone: 08-21-2021 09:51-0500 Body mass index (BMI) [Ratio] 22.8 kg/m2 Dr. Tom Conte Work Phone: [facility] Work Phone: 08-21-2021 09:51-0500 Body weight 74.[address] Tom Conte Work Phone: [facility] Work Phone: 08-21-2021 09:51-0500 Diastolic blood pressure 86 mm[Hg] Dr. Tom Conte Work Phone: [facility] Work Phone: 08-21-2021 09:51-0500 Heart rate 75 /min Dr. Tom Conte Work Phone: [facility] Work Phone: 08-21-2021 09:51-0500 Respiratory rate 18 /min Dr. Tom Conte Work Phone: [facility] Work Phone: 08-21-2021 09:51-0500 SaO2% (BldA) [Mass fraction] 100 % Dr. Tom Conte Work Phone: [facility] Work Phone: 08-21-2021 09:51-0500 Systolic blood pressure 157 mm[Hg] Dr. Tom Conte Work Phone: [facility] Work Phone: 06-15-2021 05:34-0500 Body temperature 97.88 [degF] GILBERTO WILLIAM MD [facility] 06-15-2021 05:34-0500 Diastolic blood pressure 81 mm[Hg] GILBERTO WILLIAM MD [facility] 06-15-2021 05:34-0500 Heart rate 78 /min GILBERTO WILLIAM MD [facility] 06-15-2021 05:34-0500 Respiratory rate 20 /min GILBERTO WILLIAM MD [facility] 06-15-2021 05:34-0500 Systolic blood pressure 167 mm[Hg] GILBERTO WILLIAM MD [facility] 04-30-2021 21:38-0500 Body height 180 cm ODILIA DANUTAESKA DO [facility] 04-30-2021 21:38-0500 Body temperature 98.24 [degF] ODILIA DURESKA DO [facility] 04-30-2021 21:38-0500 Body weight 72.7 kg ODILIA DURESKA DO [facility] 04-30-2021 21:38-0500 Diastolic blood pressure 111 mm[Hg] ODILIA DURESKA DO [facility] 04-30-2021 21:38-0500 Heart rate 99 /min ODILIA DURESKA DO [facility] 04-30-2021 21:38-0500 Respiratory rate 20 /min ODILIA DURESKA DO [facility] 04-30-2021 21:38-0500 Systolic blood pressure 187 mm[Hg] ODILIA DAVILA DO [facility] 02-28-2021 11:29-0400 Body height 180.34 cm Tom Conte Work Phone: EX-Dijifam-Hgfopn l 2099 Work Phone: 02-28-2021 11:29-0400 Body mass index (BMI) [Ratio] 22.51 kg/m2 Tom Conte Work Phone: NG-Oketcib-Zrlxid l 2099 Work Phone: 02-28-2021 11:29-0400 Body surface area Derived from formula 1.93 m2 Tom Conte Work Phone: YR-Pcaqiqy-Tyqwqz l 2099 Work Phone: 02-28-2021 11:29-0400 Body temperature 97.5 [degF] Tom Conte Work Phone: GF-Orchxgu-Tcvsue l 2099 Work Phone: 02-28-2021 11:29-0400 Body weight 73.21 kg Tom Conte Work Phone: FB-Vkcufoh-Qcnjlp l 2099 Work Phone: 02-28-2021 11:29-0400 Diastolic blood pressure 74 mm[Hg] Tom Conte Work Phone: FG-Kmckspd-Tbcznm l 2100 Work Phone: 02-28-2021 11:29-0400 Heart rate 74 /min Tom Conte Work Phone: UN-Eyglhge-Ygdkym l 2100 Work Phone: 02-28-2021 11:29-0400 SaO2% (BldA) [Mass fraction] 100 % Tom Conte Work Phone: PK-Zupasnf-Ydniav l 2100 Work Phone: 02-28-2021 11:29-0400 Systolic blood pressure 121 mm[Hg] Tom Conte Work Phone: NY-Wojkwzp-Cockfy l 2100 Work Phone: Encounters Encounter Date Encounter Type Care Provider Facility Start: 03-11-2025 End: 03-11-2025 Emergency department patient visit SILVIA PAVON MD [facility] Start: 03-10-2025 ambulatory Monie Alston Facility: [facility] Start: 03-10-2025 End: 03-10-2025 ambulatory MONIE ALSTON DO Facility:[facility] [place] Start: 03-10-2025 End: 03-10-2025 Patient encounter procedure ROBERT GARCIA MD [facility] Start: 02-15-2025 End: 02-15-2025 Office outpatient new 60 minutes Loida Perea MD Work Phone: [facility] Comment on above: ESRD (end stage joe l disease) (Multi) (Primary Dx); Kidney replaced by transplant ([facility]); Pre-transplant evaluation for kidney transplant Pre-transplant evalu ation for kidney transplant (Primary Dx) Start: 02-15-2025 End: 02-15-2025 Patient encounter status Loida Perea MD Work Phone: [facility] Work Phone: Start: 02-15-2025 End: 02-15-2025 ambulatory [facility] Start: 02-15-2025 End: 02-15-2025 ambulatory [facility] Start: 02-15-2025 End: 02-15-2025 Encounter for other preprocedural examination [facility] Start: 01-29-2025 End: 01-31-2025 Evaluation and management of inpatient BOGDAN PONCE MD [facility] Start: 01-29-2025 End: 01-29-2025 Emergency department patient visit DR PARTH PONCE MD [facility] Start: 01-26-2025 End: 01-26-2025 ambulatory KD RODRIGUEZ MD Facility:A Start: 01-26-2025 End: 01-26-2025 SAME DAY STAY KD RODRIGUEZ MD [facility] Start: 01-04-2025 End: 01-04-2025 ambulatory CARL GRAVES PA-C Facility:[facility] Start: 01-04-2025 End: 01-04-2025 Patient encounter procedure CARL GRAVES PA-C [facility] Start: 12-18-2024 End: 12-20-2024 Evaluation and management of inpatient YARA GUERRERO MD [facility] Start: 12-17-2024 End: 12-18-2024 Emergency department patient visit HÉCTOR JEONG DO [facility] Start: 12-08-2024 End: 12-08-2024 ambulatory JESUS CASTREJON [facility] Start: 12-08-2024 End: 12-08-2024 ambulatory GENERIC PROVIDER SCANNING [facility] Start: 12-08-2024 End: 12-08-2024 Evaluation and management of inpatient aJn Simeon MD MPH Work Phone: [facility] Start: 12-07-2024 End: 12-08-2024 Emergency department patient visit Dr. Monie Alston DO Work Phone: -Emergency Department Work Phone: Start: 12-06-2024 End: 12-06-2024 Emergency department patient visit ODILIA DAVILA DO [facility] Start: 11-29-2024 End: 11-29-[address] Monie Alston DO Work Phone: [facility] Work Phone: Start: 11-29-2024 End: 11-29-[address] Pablo Rogers MD -[facility] Work Phone: Start: 11-24-2024 End: 11-24-2024 ambulatory MONIE ALSTON Facility:[facility] Start: 11-24-2024 End: 11-24-2024 Patient encounter procedure Columba Keith APRN.CNP Work Phone: [facility] Comment on above: Other acute nonsuppu rative otitis media of left ear, recurrence not specified (Primary Dx); Viral URI with cough Start: 10-18-2024 End: 10-18-2024 ambulatory MONIE ALSTON Facility:[facility] Start: 10-12-2024 ambulatory MONIE ALSTON DO Faci lity:A Start: 10-07-2024 Non-patient / Non-visit Dr. Tevin goyal MD -[facility] Start: 10-07-2024 End: 10-07-[address] Monie Alston DO Work Phone: [facility] Work Phone: Start: 10-07-2024 End: 10-07-[address] Tevin Khan MD -Cardiovascular Services Work Phone: Start: 10-07-2024 End: 10-07-2024 ambulatory Tevin Khan Facility:[facility] Start: 09-13-2024 End: 09-13-2024 ambulatory MONIE ALSTON DO Facility:[facility] Start: 09-07-2024 End: 09-07-[address] Tevin Khan MD -[facility] Work Phone: Start: 09-07-2024 End: 09-07-2024 ambulatory [facility] Facility:[facility] Start: 09-01-2024 End: 09-01-2024 Telephone encounter Britton Morin APRN.MANUFACTURING COORDINATOR Work Phone: Vascular Surg Dept Start: 08-30-2024 End: 08-30-2024 ambulatory [facility] Facility:[facility] Start: 08-30-2024 End: 08-30-[address] Pablo Rogers MD -[facility] Work Phone: Start: 08-24-2024 End: 08-24-2024 ambulatory MONIE E ALSTON DO Facility:[facility] Start: 08-24-2024 End: 08-24-2024 Patient encounter procedure MONIE E ALSTON DO [facility] Start: 08-04-2024 End: 08-04-2024 Telephone encounter Gio Velarde MD Work Phone: Vascular Surg Dept Comment on above: Patient Update Start: 06-01-2024 End: 06-01-2024 ambulatory Pablo Rogers Facility:[facility] Start: 05-30-2024 End: 05-30-2024 ambulatory [facility] Facility:[facility] Start: 05-30-2024 End: 05-30-2024 Patient encounter procedure Soila Maria APRN.MANUFACTURING COORDINATOR Work Phone: [facility] Comment on above: Acute cough (Primary Dx); Asthma with COPD with exacerbation (HCC) Start: 04-13-2024 End: 04-13-2024 ambulatory [facility] Facility:[facility] Start: 04-13-2024 End: 04-13-2024 Patient encounter procedure Soila Maria APRN.MANUFACTURING COORDINATOR Work Phone: [facility] Comment on above: COPD with exacerbati on (HCC) (Primary Dx) Start: 04-01-2024 End: 04-01-2024 Subsequent hospital visit by physician [facility] Work Phone: Radiology Comment on above: Lumbar pain [M54.50] Start: 04-01-2024 End: 04-01-2024 ambulatory MONIE ALSTON Facility:[facility] Start: 04-01-2024 End: 04-01-2024 Patient encounter procedure Christal LEWIS Work Phone: [facility] Comment on above: Lumbar pain (Primary Dx) Start: 03-16-2024 End: 03-16-2024 ambulatory Joan LEWIS Facility:[facility] Start: 11-12-2023 End: 11-12-2023 Patient encounter procedure Gio Velarde MD Work Phone: Vascular Surg Dept Comment on above: Peripheral arterial disease (HCC) (Primary Dx); Chronic combined systolic and diastolic CHF (congestive heart failure) (HCC) Start: 10-23-2023 Orders Only Gio browning MD Work Phone: [facility] Surg [facility] Comment on above: ESRD (end stage joe l disease) (HCC) (Primary Dx) Arteriovenous fistul a, acquired (HCC) (Primary Dx) Start: 09-28-2023 Telephone encounter Vania Turner PERFORMANCE INSTRUCTOR.MANUFACTURING COORDINATOR Work Phone: Cardiothoracic Start: 08-26-2023 Telephone encounter Gio nguyen MD Work Phone: V[facility] Surg [facility] Start: 08-12-2023 ambulatory Abigail mclaughlin LPN NURSE BOTTOM [employer]ING LATHE T[employer]ER Comment on above: post op concern Start: 08-12-2023 Telephone encounter Fredis french PERFORMANCE INSTRUCTOR.MANUFACTURING COORDINATOR Work Phone: Cardiothoracic Comment on above: Returning Patient's Call Start: 08-08-2023 Follow-up encounter Juni Abdullahi DO Work Phone: [facility] Start: 08-08-2023 Orders Only Gio browning MD Work Phone: Vascular Surg Dept Comment on above: ESRD (end stage joe l disease) (HCC) (Primary Dx); Arteriovenous fistula, acquired (HCC) Start: 08-08-2023 Patient encounter procedure Juni Abdullahi DO Work Phone: [facility] Start: 08-07-2023 Follow-up encounter Juni Abdullahi DO Work Phone: [facility] Start: 08-07-2023 Patient encounter procedure Juni Abdullahi DO Work Phone: [facility] Start: 08-06-2023 Telephone encounter Gio nguyen MD Work Phone: Vascular Surg Dept Comment on above: Appointment Start: 08-05-2023 Telephone encounter Gio nguyen MD Work Phone: V[facility] Surg Dept Comment on above: Patient Update Start: 08-01-2023 Telephone encounter Gio nguyen MD Work Phone: V[facility] Surg [facility] Comment on above: Patient Update ESRD (end stage joe l disease) (HCC) (Primary Dx) Start: 07-24-2023 Telephone encounter iGo nguyen MD Work Phone: Vascular Surg [facility] Comment on above: Patient Update (Resc heduling surgery ) Start: 06-04-2023 End: 06-04-2023 Patient encounter procedure Gio Velarde MD Work Phone: [facility] Comment on above: Encounter for screen ing for cardiovascular disorders (Primary Dx); ESRD (end stage renal disease) (HCC); Arteriovenous fistula, acquired (HCC) Start: 05-29-2023 Orders Only Gio browning MD Work Phone: V[facility]urg [facility] Comment on above: Vasculopathy (Primar y Dx) Start: 05-28-2023 Telephone encounter Gio nguyen MD Work Phone: [facility] Comment on above: Patient Update Start: 05-23-2023 Orders Only Gio browning MD Work Phone: [facility] Comment on above: Vasculopathy (Primar y Dx); SVC (superior vena cava obstruction) Start: 05-13-2023 End: 05-14-2023 ambulatory MONIE ALSTON DO Facility:[facility] Start: 04-22-2023 End: 04-22-2023 ambulatory TOM CONTE MD Facility:[facility] Start: 03-13-2023 End: 03-13-2023 Patient encounter procedure Manjit Field MD Work Phone: Pulmonary Comment on above: Tobacco use disorder (Primary Dx); Recurrent right pleural effusion Start: 03-12-2023 ambulatory Tom browning MD Work Phone: [facility] Start: 03-12-2023 Letter encounter Tom michael MD Work Phone: [facility] Comment on above: Service animal lette r Start: 03-05-2023 ambulatory Tom browning MD Work Phone: [facility] Comment on above: Note for service ani mal Start: 03-03-2023 Chart abstracting Tom krishnamurthy MD Work Phone: [facility] Comment on above: ext document (Cardio OV note) Start: 01-21-2023 Telephone encounter Lyudmila saldivar APRN.MANUFACTURING COORDINATOR Work Phone: [facility] Comment on above: Results Start: 01-20-2023 End: 01-20-2023 Patient encounter procedure Lyudmila An APRN.MANUFACTURING COORDINATOR Work Phone: [facility] Comment on above: Hypotension, unspeci fied hypotension type (Primary Dx); End stage renal failure on dialysis (HCC) Start: 01-16-2023 End: 01-16-2023 Emergency department patient visit DR ERNST MACIEL MD Facility:B Start: 01-16-2023 End: 01-16-2023 Emergency department patient visit DR ERNST MACIEL MD [facility] Start: 12-28-2022 End: 12-28-2022 Emergency department patient visit CAROLE LEDBETTER DO Facility:B Start: 12-28-2022 End: 07-08-2023 Emergency department patient visit CAROLE LEDBETTER DO [facility] Start: 12-09-2022 End: 12-09-2022 Emergency department patient visit DR HARVEY HARVEY MD Facility:B Start: 12-09-2022 End: 12-09-2022 Emergency department patient visit DR HARVEY HARVEY MD [facility] Start: 11-28-2022 End: 11-29-2022 ambulatory VINCENZO BARBER MD Facility:A Start: 11-25-2022 Telephone encounter Tom Conte MD Work Phone: [facility] Comment on above: Results Start: 11-21-2022 End: 11-21-2022 Patient encounter procedure Tom Conte MD Work Phone: [facility] Comment on above: Essential hypertensi on (Primary Dx); Cardiomyopathy, unspecified type (HCC); Hypertensive heart disease with congestive heart failure, unspecified heart failure type (HCC); Chronic combined systolic and diastolic CHF (congestive heart failure) ([facility]); Left ventricular systolic dysfunction; Implantable cardioverter-defibrillator (ICD) in situ; Nonrheumatic aortic valve stenosis; Elevated hemoglobin A1c; Gastroesophageal reflux disease without esophagitis; Migraine without aura and without status migrainosus, not intractable; Chronic obstructive pulmonary disease, unspecified COPD type ([facility]); Anxiety; Mild episode of recurrent major depressive disorder (HCC); CKD (chronic kidney disease) stage 5, GFR less than 15 ml/min (HCC); End stage renal failure on dialysis (HCC); Anemia associated with stage 5 chronic renal failure ([facility]); Hemodialysis patient ([facility]); Smoker; Need for vaccination; Bilateral carotid bruits; Arteriovenous fistula, acquired ([facility]) Start: 10-28-2022 Non-patient / Non-visit Dr. Paco Conte Work Phone: [facility] Start: 10-28-2022 End: 10-28-[address] Tom Conte Work Phone: [facility] Work Phone: Start: 10-28-2022 End: 10-28-[address] Tom Conte Work Phone: [facility] Start: 10-17-2022 Telephone encounter Valerie Cindi [facility] Comment on above: Appointment (HFC def erral) Start: 10-08-2022 End: 10-08-2022 Emergency department patient visit ELISEO STORY MD Facility:B Start: 10-02-2022 ambulatory BASHARAT [facility] Start: 10-01-2022 ambulatory Keenan Her LPN [facility] Comment on above: Opened In Error Start: 10-01-2022 Chart abstracting Tom krishnamurthy MD [facility] Comment on above: dischare summary Start: 10-01-2022 Telephone encounter Tom Conte MD Work Phone: [facility] Comment on above: Patient Update; Medi cation Problem Start: 09-23-2022 End: 09-27-2022 Evaluation and management of inpatient GERALDINE AVILA DO Facility:A Start: 09-23-2022 Chart abstracting Tom krishnamurthy MD Work Phone: [facility] Start: 09-23-2022 End: 09-23-2022 Emergency department patient visit JULIAN MCLEAN [facility] Start: 09-21-2022 End: 09-21-2022 Emergency department patient visit ELISEO STORY MD Facility:B Start: 09-20-2022 End: 09-20-[address] Tom Conte Work Phone: [facility] Start: 09-19-2022 Chart abstracting Tom krishnamurthy MD [facility] Phone: [facility] Comment on above: Consult (Cardiology /) Start: 09-19-2022 End: 09-19-2022 Subsequent hospital visit by physician Xr [facility] Work Phone: Radiology Comment on above: Pleural effusion [J9 0] Start: 09-19-2022 End: 09-19-[address] Tom Conte Work Phone: [facility] Start: 09-17-2022 Telephone encounter Valerie Puente [facility] Comment on above: Appointment (HFC mis sed appt letter) Start: 09-12-2022 Telephone encounter Myah ward RN [facility] Comment on above: Appointment Start: 09-03-2022 ambulatory Nayla porter RN Work Phone: [facility] Start: 09-03-2022 Telephone encounter Valerie Puente [facility] Comment on above: Orders (HFC order co ntact/appt) Transition Of Care ( TCM Initial [facility] Discharge 09/02/22) Start: 09-02-2022 Orders Only Napoleon Gordillo PA-C Work Phone: Pulmonary Medicine Comment on above: Pleural effusion (Pr imary Dx) Start: 09-01-2022 End: 09-02-2022 ambulatory DANIA CATKA Facility:[facility] Start: 08-31-2022 End: 09-01-2022 Emergency department patient visit RAMIRO MARTIN MD Facility:B Start: 08-31-2022 End: 09-01-2022 Emergency department patient visit RAMIRO MARTIN MD [facility] Start: 08-20-2022 End: 08-20-2022 Emergency department patient visit RAMIRO MARTIN MD Facility:B Start: 08-18-2022 ambulatory Manjit garvey MD Work Phone: Pulmonary Comment on above: Possible fluid Start: 08-15-2022 End: 08-15-2022 Emergency department patient visit TOM CONTE MD Facility:B Start: 08-15-2022 End: 08-15-2022 Emergency department patient visit JEFF SOUZA DO [facility] Start: 08-08-2022 End: 08-08-2022 ambulatory FERNANDO FITZPATRICK Facility:[facility] Start: 07-31-2022 Chart abstracting Tom krishnamurthy MD Work Phone: [facility] Comment on above: Patient Update (ER W CH ) Start: 07-31-2022 Telephone encounter Manjit Field MD Work Phone: Pulmonary Comment on above: Patient Question; Pa tient Update Start: 07-30-2022 End: 07-30-2022 Emergency department patient visit Dr. [facility] Con[facility] Start: 07-24-2022 Telephone encounter Manjit Field MD Work Phone: Pulmonary Comment on above: Patient Update Start: 07-15-2022 End: 07-15-2022 Subsequent hospital visit by physician Xr [facility] Work Phone: Radiology Comment on above: Pleural effusion [J9 0] Start: 07-15-2022 Telephone encounter Manjit Field MD Work Phone: Pulmonary Medicine Comment on above: Drainage (Pleurx cat heter) Start: 07-04-2022 ambulatory Manjit garvey MD Work Phone: Pulmonary Comment on above: Aspire for ashok padilla and bandages Insurance cards Start: 07-01-2022 End: 07-01-2022 Patient encounter procedure Manjit Field MD Work Phone: Pulmonary Comment on above: Pleural effusion (Pr imary Dx); Recurrent right pleural effusion Start: 07-01-2022 Telephone encounter Manjit Field MD Work Phone: Pulmonary Medicine Comment on above: Medication Authoriza tion (lidocaine (LIDODERM) Prior Authorization no longer needed (see notes)) Start: 06-29-2022 End: 06-29-2022 Emergency department patient visit Dr. Tom Conet Work Phone: [facility] Start: 06-25-2022 End: 06-25-2022 ambulatory TOM CONTE [facility] Start: 06-19-2022 Telephone encounter Manjit Field MD Work Phone: Pulmonary Comment on above: Patient Update Start: 06-14-2022 ambulatory TOM CONTE Facili ty:[facility] Start: 06-11-2022 Telephone encounter Manjit Field MD Work Phone: Pulmonary Comment on above: Patient Question Start: 05-31-2022 End: 05-31-2022 Subsequent hospital visit by physician Pio [facility] Work Phone: Radiology Comment on above: Pleural effusion [J9 0] Start: 05-29-2022 End: 05-29-[address] Tom Conte Work Phone: [facility] Start: 05-27-2022 Telephone encounter Manjit Field MD Work Phone: Pulmonary Comment on above: Patient Question Start: 04-24-2022 ambulatory Manjit garvey MD Work Phone: Pulmonary Comment on above: Drain Start: 04-08-2022 Telephone encounter Deonte Ponce APRN.CNP Work Phone: [facility] Comment on above: Returning Patient's Call Start: 04-04-2022 ambulatory CELSO Velazquez acility:[facility] Start: 04-04-2022 End: 04-04-2022 Subsequent hospital visit by physician Celso Reed MD Work Phone: [facility] Comment on above: Pleural effusion [J9 0] Start: 04-03-2022 Telephone encounter Manjit Field MD Work Phone: Pulmonary Medicine Comment on above: Results Start: 04-02-2022 End: 04-02-2022 ambulatory Pulm Mc Work Phone: [facility] Comment on above: Spirometry Start: 04-02-2022 End: 04-02-2022 Patient encounter procedure Pulm Lab Tarun Mccartney Work Phone: [facility] Start: 04-01-2022 End: 04-01-2022 ambulatory AJ HUERTA Facility:[facility] Start: 04-01-2022 Telephone encounter Aj brannon MD Work Phone: [facility] Comment on above: Patient Update Start: 03-26-2022 End: 03-26-2022 ambulatory [facility] Start: 03-11-2022 ambulatory TOM Silvia METCALFEY [facility] ty:[facility] Start: 03-11-2022 End: 03-11-2022 Subsequent hospital visit by physician Olga Lidia Sheridan APRN.MANUFACTURING COORDINATOR Work Phone: [facility] Comment on above: Recurrent right pleu ral effusion [J90] Start: 03-05-2022 Orders Only Manjit garvey MD Work Phone: [facility] Comment on above: Recurrent right pleu ral effusion (Primary Dx) Start: 02-26-2022 End: 02-26-2022 Orders Only Manjit Field MD Work Phone: Pulmonary Medicine Comment on above: Recurrent right pleu ral effusion (Primary Dx) Results Shortness of breath [R06.02] Start: 02-24-2022 ambulatory Manjit garvey MD Work Phone: Pulmonary Comment on above: Fluid on the lung Start: 02-14-2022 Telephone encounter Manjit Field MD Work Phone: Pulmonary Comment on above: Results (Cussed the results of his CT scan and initial thoracentesis fluid analysis. He is feeling okay at this time but still has some chest pain that is starting to ease out on the right side.) Start: 02-14-2022 ambulatory THOR OLIVO [facility] Start: 02-14-2022 End: 02-14-2022 Subsequent hospital visit by physician Thor Olivo APRN.MANUFACTURING COORDINATOR Work Phone: [facility] Comment on above: Pleural effusion [J9 0] Start: 02-12-2022 End: 02-13-2022 ambulatory MANJIT FIELD [facility] Start: 02-11-2022 End: 02-11-2022 Emergency department patient visit SERENA ASCENCIO [facility] Start: 02-04-2022 Non-patient / Non-visit Dr. Paco Conte Work Phone: [facility] Start: 02-04-2022 End: 02-04-2022 Evaluation and management of inpatient Dr. Tom Conte Work Phone: [facility] Start: 02-04-2022 End: 02-04-2022 Emergency department patient visit CHRISTOPHER PANTOJA [facility] Start: 01-27-2022 End: 01-27-2022 Emergency department patient visit DR HARVEY HARVEY MD [facility] Start: 01-24-2022 ambulatory Tom browning MD Work Phone: [facility] Comment on above: Blood work for job Start: 11-27-2021 End: 11-27-[address] Tom Conte Work Phone: [facility] Start: 11-05-2021 End: 11-05-2021 ambulatory GLORIA MCCALL [facility] Start: 11-03-2021 Telephone encounter Marina Figueroa tnof PERFORMANCE INSTRUCTOR.MANUFACTURING COORDINATOR Work Phone: [facility] Comment on above: Results Start: 11-01-2021 Chart abstracting Tom krishnamurthy MD [facility] Start: 11-01-2021 Non-patient / Non-visit Dr. Paco Conte Work Phone: [facility] Start: 11-01-2021 End: 11-01-2021 Subsequent hospital visit by physician [facility] Work Phone: Radiology Comment on above: History of pneumonia [Z87.01] Start: 11-01-2021 End: 11-01-[address] Tom Conte Work Phone: [facility] Start: 10-26-2021 End: 10-26-2021 Emergency department patient visit SERENA Barron SONU [facility] Start: 10-18-2021 End: 10-18-2021 Patient encounter procedure Marina Marley APRN.MANUFACTURING COORDINATOR Work Phone: [facility] Comment on above: History of pneumonia (Primary Dx); End stage renal failure on dialysis (HCC) Start: 10-11-2021 End: 10-11-2021 Emergency department patient visit SHIELA BALDERAS MD [facility] Start: 09-28-2021 ambulatory Tom browning MD Work Phone: [facility] Comment on above: Hospital have pneumo barbara Start: 08-21-2021 End: 08-21-[address] Tom Conte Work Phone: [facility] Start: 06-15-2021 End: 06-15-2021 Emergency department patient visit GILBERTO WILLIAM MD [facility] Start: 04-30-2021 End: 04-30-2021 Emergency department patient visit ODILIA DAVILA DO [facility] Start: 04-06-2021 AUDIT Tom browning Work Phone: CZ-Whvhgvnkta-Vpqafu Work Phone: Start: 03-19-2021 Chart Update Tom browning Work Phone: WQ-Bysaljpopo-Rfkzfkif 2480 DO Work Phone: Start: 03-15-2021 AUDIT Tom browning Work Phone: SO-Psdkwigvwq-Ghonmp Work Phone: Start: 03-02-2021 ambulatory [facility] Facility :[facility] Start: 03-02-2021 Chart Update Tom browning Work Phone: QC-Yvnrekahjb-Aadpoy Work Phone: Start: 02-28-2021 Patient encounter procedure Tom Conte Work Phone: AZ-Qxmcxtv-Pndbwpc 2100 Work Phone: Start: 01-18-2021 AUDIT Tom Metcalf ey Work Phone: IH-Noiuzsmour-Kdkdcg Work Phone: Start: 12-13-2020 AUDIT Tom Silvia Doe ey Work Phone: FA-Jarfhazqoi-Nhoigv Work Phone: Start: 11-15-2020 End: 11-15-2020 Subsequent hospital visit by physician Xr [facility] Work Phone: Radiology Comment on above: Cough [R05] Start: 11-30-2019 Patient encounter procedure Meisam Moghbelli HS-Ficlavsmhq-Dplsgh 1800 Wound Work Phone: Start: 10-14-2019 Patient encounter procedure Meisam Moghbelli EQ-Rbzvaqfuee-Eprdpb 1800 Wound Work Phone: Start: 08-03-2019 Patient encounter procedure Meisam Moghbelli CC-Nmyjklcgsk-Qkwhvu 1800 Wound Work Phone: Start: 12-16-2018 Patient encounter procedure Tom Conte RI-Ztytwmpprq-Cbpnpg Work Phone: Start: 09-29-2018 Patient encounter procedure Tom Conte OE-Fdiwnqdirx-Vufcbc Work Phone: Start: 08-18-2018 Patient encounter procedure Tom Conte XD-Dzncamftxk-Ptdqfp Work Phone: Start: 06-30-2018 Patient encounter procedure Tom Conte QD-Ewlvlqzehp-Oxgfdw Work Phone: Patient encounter status Tom Conte Work Phone: UN-Vjubsjqzvf-Cegyio Work Phone: Procedures Date Procedure Procedure Detail Performing Clinician Start: 12-08-2024 Iaad ia hepatitis b surface antigen Frances Koch MD Work Phone: Start: 12-08-2024 Blood typing serologic rh (d) Tanisha Mcneil DO Work Phone: Start: 12-08-2024 Chloride bld Tanisha Mcneil DO Work Phone: Start: 12-07-2024 Computed tomography of abdomen and pelvis with intravenous contrast Dr. Monie Alston DO Work Phone: Start: 12-07-[address] Monie Alston DO Work Phone: Start: 04-01-2024 Radex spine lumbosacral 2/3 views Christal LEWIS Work Phone: Start: 08-08-2023 ICD CLINIC CHECK Juni Abdullahi DO Work Phone: Start: 08-07-2023 ICD CLINIC CHECK Juni Abdullahi DO Work Phone: Start: 11-21-2022 [facility] COVID-19 BIVALENT VACCINE, AGE 12+ YR Tom Conte MD Work Phone: Start: 11-21-2022 Lipid 1996 panel - Serum or Plasma Tom Conte MD Work Phone: Start: 09-19-2022 Radiologic exam chest 2 views Napoleon Gordillo PA-C Work Phone: Start: 07-30-2022 Plain chest X-ray Dr. Tom Conte Work Phone: Start: 07-15-2022 Radiologic exam chest 2 views Manjit Field MD Work Phone: Start: 06-29-2022 Plain chest X-ray Dr. Tom Conte Work Phone: Start: 05-31-2022 Radiologic exam chest 2 views Manjit Field MD Work Phone: Start: 04-04-2022 Blood count complete automated Celso Reed MD Work Phone: Start: 04-02-2022 Brncdilat rspse spmtry pre&post-brncdilat admn Manjit Field MD Work Phone: Start: 03-11-2022 Radiologic exam chest single view Olga Lidia Nitz PERFORMANCE INSTRUCTOR.MANUFACTURING COORDINATOR Work Phone: Start: 03-11-2022 Thoracentesis needle/cath pleura w/imaging Manjit Field MD Work Phone: Start: 02-26-2022 Radiologic exam chest 2 views Manjit Field MD Work Phone: Start: 02-14-2022 Radiologic exam chest single view Keyla Lemons PERFORMANCE INSTRUCTOR.MANUFACTURING COORDINATOR Work Phone: Start: 02-14-2022 Thoracentesis needle/cath pleura w/imaging Manjit Field MD Work Phone: Start: 02-14-2022 Cul bact xcpt urine blood/stool aerobic isol Manjit Field MD Work Phone: Start: 02-14-2022 BF MANUAL DIFF Manjit Field MD Work Phone: Start: 02-14-2022 Cell count misc body fluids w/differential count Manjit Field MD Work Phone: Start: 02-14-2022 Glucose body fluid other than blood Manjit Field MD Work Phone: Start: 02-04-2022 Plain chest X-ray Dr. Tom Conte Work Phone: Start: 11-01-2021 Radiologic exam chest 2 views Marina Marley PERFORMANCE INSTRUCTOR.MANUFACTURING COORDINATOR Work Phone: Start: 11-01-2021 Cardiovascular stress test using pharmacologic stress agent Dr. Tom Conte Work Phone: Start: 02-28-2021 Echocardiography Tom Conte Work Phone: Start: 11-15-2020 Radiologic exam chest 2 views Waqas Alaniz APRNZaraMANUFACTURING COORDINATOR Work Phone: Start: 11-30-2019 Echocardiography Anabela Jurado Start: 11-30-2019 NM Cardiac Stress/Rest Nuclear Med Order Anabela Jurado Start: 12-16-2018 Echocardiography Tom Conte Start: 10-31-2018 Echocardiography Tom Conte Start: 01-24-2015 Defibrillator, device (physical object) ODILIA LOLA DO Comment on above: Biotronik generator left chest Itrevia 6 [id number] Biotronik RA Setrox S 60 [id number] Biotronik RV Linox Smart [id number] 01/26/2025 generator c hange by Dr Rodriguez model Ilivia Jai 7 LISBETH DF-1 Pro[employer] [id number] Start: 01-24-2015 Implantation of cardiac pacemaker ODILIA DAVILA DO Start: 02-11-2005 History of renal transplant Kidney replaced by transplant Tom Conte MD Work Phone: Cholecystectomy ODILIA Vega DO Cholecystectomy ODILIA CARRILLO A DO Dialysis catheter (physical object) ODILIA DAVILA DO History of cholecystectomy Hx of cholecys tectomy Dr. Tom Conte Work Phone: History of renal transplant ODILIA DAVILA DO Comment on above: x 2 History of renal transplant ODILIA DAVILA DO History of renal transplant Hx of kidney transplant Dr. Tom Conte Work Phone: Comment on above: Right- 1996. Left- 2011 History of renal transplant Kidney replaced by transplant ([facility]) Loida Perea MD Work Phone: Insertion of pacemak er pulse generator Tom Conte Insertion of pulse generator of implantable cardioverter defibrillator Tom Conte Nasal septoplasty ODILIA SHARP ELAINESilvia DO Parathyroid structur e (body structure) ODILIA DAVILA DO Parathyroidectomy ODILIA LLAMAS DO Procedure on peritoneum BONI Ekaterina LANDEROSMARIA DEL ROSARIO DO Comment on above: catheters inserted and remvoed Renal dialysis Kidney dialysis( Confirmed ) 14, 15 ODILIA TIGREMARIA DEL ROSARIO DO Comment on above: Last dialysis 08/08/15. hemodialysis SARS-CoV-2 & FLU Ant igen (Rapid) Dr. Tom Conte Work Phone: Transplant of kidney Tom Conte Transplant of kidney ODILIA GAMBOA DO Plan of Treatment Date Care Activity Detail Author Start: 2038 PNEUMOCOCCAL (4 - PP SV23 if available, else PCV20) PNEUMOCOCCAL (4 - PPSV23 if available, else PCV20) [facility] Start: 2038 PNEUMOCOCCAL (4 - PP SV23 or PCV20) PNEUMOCOCCAL (4 - PPSV23 or PCV20) [facility] Start: 2038 Pneumococcal vaccination [facility] Start: 10-23-2030 DTaP/Tdap/Td Vaccine s (3 - Td or Tdap) DTaP/Tdap/Td Vaccines (3 - Td or Tdap) [facility] Start: 10-23-2030 Urine microalbumin profile [facility] Start: 04-23-2030 Evaluation and manag ement of inpatient 04/23/2030 6:00 AM ED[place] [id number] [address] Department of Surgery-Transplant [place] [phone] [facility] Work Phone: Start: 11-22-2027 Lipid 1996 panel - S david or Plasma Lipid Screening [facility] Start: 11-22-2027 Lipid panel Lipid Screening [facility] Start: 11-22-2027 LIPID SCREEN LIPID SCREEN [facility] Start: 08-08-2026 Diabetes Screening Diabetes Screenin g [facility] Start: 07-17-2026 Diabetes Screening Diabetes Screenin g [facility] Start: 01-20-2026 DIABETES SCREEN DIABETES SCREEN [facility] Start: 01-20-2026 Diabetes Screening Diabetes Screenin g [facility] Start: 12-08-2025 Creatinine measurement Creatinine Le vianey [facility] Start: 12-08-2025 Diabetes mellitus screening Diabetes Screening [facility] Start: 12-08-2025 Potassium measurement Potassium Leve l [facility] Start: 11-21-2025 DIABETES SCREEN DIABETES SCREEN [facility] Start: 05-30-2025 BP Controlled (<130/80) BP Controlle d (<130/80) [facility] Start: 03-08-2025 Hepatitis B Vaccines (2 of 3 - 19+ 3-dose series) Hepatitis B Vaccines (2 of 3 - 19+ 3-dose series) [facility] Start: 02-21-2025 Influenza vaccination [facility] Start: 02-15-2025 End: 02-15-2025 Patient encounter procedure [facility] Start: 02-15-2025 End: 02-15-2025 Nursing evaluation of patient and report [facility] Start: 02-12-2025 DI[address]ES SCREEN DIABETES SCREEN [facility] Start: 12-08-2024 [facility] Start: 11-11-2024 BP Controlled (<130/80) BP Controlle d (<130/80) [facility] Start: 08-08-2024 Complete blood count Hemoglobin/Manoj tocrit [facility] Start: 08-08-2024 Creatinine measurement Serum Creatin ine [facility] Start: 07-17-2024 BP Controlled (<130/80) BP Controlle d (<130/80) [facility] Start: 07-17-2024 Complete blood count Hemoglobin/Manoj tocort [facility] Start: 07-17-2024 Creatinine measurement Serum Creatin ine [facility] Start: 07-17-2024 DI[address]ETES SCREEN DIABETES SCREEN [facility] Start: 06-04-2024 BP Controlled (<130/80) BP Controlle d (<130/80) [facility] Start: 03-13-2024 BP Controlled (<130/80) BP Controlle d (<130/80) [facility] Start: 02-22-2024 COVID-19 Vaccine () COVID-19 Vaccine () [facility] Start: 02-22-2024 Covid-19 Vaccine ( season) Covid-19 Vaccine () [facility] Start: 02-22-2024 Influenza vaccination C [facility] Start: 01-21-2024 ANNUAL PCP TEAM [employer]IE ADJUSTER FRANSICO DISEASE VISIT ANNUAL PCP TEAM CHRONIC DISEASE VISIT [facility] Start: 01-21-2024 BP CONTROLLED (<130/80) BP CONTROLLE D (<130/80) [facility] Start: 01-21-2024 Creatinine measurement Serum Creatin ine [facility] Start: 01-21-2024 SERUM CREATININE SERUM CREATININE Cl [facility] Start: 12-04-2023 LIPID SCREEN LIPID SCREEN [facility] Start: 11-22-2023 ANNUAL PCP TEAM [employer] ADJUSTER FRANSICO DISEASE VISIT ANNUAL PCP TEAM CHRONIC DISEASE VISIT [facility] Start: 11-22-2023 BP CONTROLLED (<130/80) BP CONTROLLE D (<130/80) [facility] Start: 11-22-2023 COLORECTAL CANCER SCREENING COLORECTAL CANCER SCREENING [facility] Comment on above: Postponed from 09/25 (Declined at this time) Start: 11-22-2023 Diabetes mellitus screening Diabetes Screening [facility] Start: 11-22-2023 Screening for malign ant neoplasm of colon Colorectal Cancer Screening [facility] Comment on above: Postponed from 09/25 (Declined at this time) Start: 11-22-2023 SERUM CREATININE SERUM CREATININE Cl [facility] Start: 11-22-2023 SHINGRIX VACCINE (1 of 2) FRANKLIN GRIX VACCINE (1 of 2) [facility] Comment on above: Postponed from 09/25 (Insurance Coverage) Start: 11-12-2023 End: 11-12-2023 Patient encounter procedure Vascular Surgery Comment on above: 1 Month S/P DRILL Pr ocedure W/ RUE Fistula & Arterial Arm Duplexes 1 month post op f/u Start: 09-26-2023 Pneumococcal vaccination Pneum ococcal Vaccine (3 of 3 - PCV20 or PCV21) [facility] Start: 09-26-2023 Pneumococcal Vaccine : 50+ (4 of 4 - PCV20 or PCV21) Pneumococcal Vaccine: 50+ (4 of 4 - PCV20 or PCV21) [facility] Start: 09-26-2023 Prostate specific an tigen measurement PSA Prostate Cancer Screening [facility] Start: 09-26-2023 Zoster Vaccines (1 of 2) Zoste r Vaccines (1 of 2) [facility] Start: 09-03-2023 SERUM CREATININE SERUM CREATININE [facility] Start: 08-27-2023 ANNUAL PCP TEAM AUTOMATIC STEEL TIE ADJUSTER FRANSICO DISEASE VISIT ANNUAL PCP TEAM CHRONIC DISEASE VISIT [facility] Start: 05-29-2023 End: 08-28-2023 CREATININE BLD CREATININE BLD Lab Routine Vasculopathy Expected: 05/29/2023, Expires: 08/28/2023 [facility] Work Phone: Comment on above: Expected: 05/29/2023 , Expires: 08/28/2023 Start: 04-04-2023 Complete blood count Hemoglobin/Manoj tocrit [facility] Start: 04-04-2023 HEMOGLOBIN/HEMATOCRIT HEMOGLOBIN/HEM ATOCRIT [facility] Start: 02-21-2023 Covid-19 Vaccine ( season) Covid-19 Vaccine ( season) [facility] Start: 02-21-2023 Influenza vaccination [facility] Start: 02-12-2023 SERUM CREATININE SERUM CREATININE [facility] Start: 01-20-2023 End: 03-22-2023 Comprehensive metabolic 2000 panel - Serum or Plasma [facility] Work Phone: Comment on above: Expected: 01/20/2023 , Expires: 03/22/2023 Start: 01-16-2023 COVID-19 VACCINE (4 - Booster for Pfizer series) COVID-19 VACCINE (4 - Booster for Pfizer series) [facility] Start: 01-16-2023 COVID-19 VACCINE (4 - Pfizer risk series) COVID-19 VACCINE (4 - Pfizer risk series) [facility] Start: 11-21-2022 End: 01-21-2023 Comprehensive metabolic 2000 panel - Serum or Plasma [facility] Work Phone: Comment on above: Expected: 11/21/2022 , Expires: 01/21/2023 Start: 11-21-2022 End: 01-21-2023 Hemoglobin A1c in Blood [facility] Work Phone: Comment on above: Expected: 11/21/2022 , Expires: 01/21/2023 Start: 11-21-2022 End: 01-21-2023 LIPID PANEL, NONFASTING [facility] Work Phone: Comment on above: Expected: 11/21/2022 , Expires: 01/21/2023 Start: 10-18-2022 ANNUAL PCP TEAM [employer]OMAT[employer] STE[employer] T[employer] ADJUSTER FRANSICO DISEASE VISIT ANNUAL PCP TEAM CHRONIC DISEASE VISIT [facility] Start: 09-04-2022 ANNUAL PCP TEAM AUTOMATIC STEEL TIE ADJUSTER FRANSICO DISEASE VISIT ANNUAL PCP TEAM CHRONIC DISEASE VISIT [facility] Start: 07-17-2022 HEMOGLOBIN/HEMATOCRIT HEMOGLOBIN/HEM ATOCRIT [facility] Start: 07-17-2022 SERUM CREATININE SERUM CREATININE Cl [facility] Start: 07-15-2022 End: 07-31-2023 Radiologic exam chest 2 views XR CHEST 2V FRONTAL/LAT Radiology Routine Pleural effusion Expected: 07/15/2022, Expires: 07/31/2023 [facility] Work Phone: Comment on above: Expected: 07/15/2022 , Expires: 07/31/2023 Start: 04-25-2022 End: 06-25-2022 CBC panel - Blood by Automated count CBC Lab Routine Pleural effusion Expected: 04/25/2022, Expires: 06/25/2022 [facility] Work Phone: Comment on above: Expected: 04/25/2022 , Expires: 06/25/2022 Start: 02-28-2022 Echocardiography Echocardiogram [facility] Start: 02-21-2022 [facility] Start: 02-05-2022 Blood chemistry [facility] Work Phone: Start: 02-04-2022 Patient discharge [facility] Work Phone: Start: 02-04-2022 [facility] Work Phone: Start: 02-04-2022 Ambulation without limitation [facility] Work Phone: Start: 02-04-2022 Assessment of risk o f venous thromboembolism [facility] Work Phone: Start: 02-04-2022 Bacteria identified in Sputum by Culture [facility] Work Phone: Start: 02-04-2022 Incentive spirometry [facility] Work Phone: Start: 02-04-2022 Insertion of cathete r into peripheral vein [facility] Work Phone: Start: 02-04-2022 Measuring intake and output [facility] Work Phone: Start: 02-04-2022 Oxygen therapy [facility] Work Phone: Start: 02-04-2022 Physiotherapy of chest [facility] Work Phone: Start: 02-04-2022 Providing care accor ding to standard [facility] Work Phone: Start: 02-04-2022 Referral to loom fixer apprentice [facility] Work Phone: Start: 02-04-2022 [facility] Work Phone: Start: 02-04-2022 Verification routine [facility] Work Phone: Start: 02-04-2022 Admission procedure [facility] Work Phone: Start: 02-04-2022 Following clinical p athway protocol [facility] Work Phone: Start: 02-04-2022 Inhalation therapy procedure [facility] Work Phone: Start: 06-25-2021 COVID-19 VACCINE (3 - Pfizer risk 4-dose series) COVID-19 VACCINE (3 - Pfizer risk 4-dose series) [facility] Start: 06-25-2021 COVID-19 VACCINE (3 - Pfizer risk series) COVID-19 VACCINE (3 - Pfizer risk series) [facility] Start: 09-14-2021 TXPEVAL, Provider: Jing Moran, Status: Pen, Time: 3:40 PM TXPEVAL, Provider: Jing Moran, Status: Pen, Time: 3:40 PM MP-Vzmnxvrwxf-Asdbk r Work Phone: Start: 02-01-2021 ECHO, Provider: MARILYN SMITH HHVI 1,MG CARD, Status: Pen, Time: 12:40 PM ECHO, Provider: MARILYN SMITH HHVI 1,MG CARD, Status: Pen, Time: 12:40 PM UE-Zcyofixeos-Gkhlb r Work Phone: Start: 02-01-2021 KIDANNSW, Provider: Soila Urena, Status: Pen, Time: 12:00 PM KIDANNSW, Provider: Soila Urena, Status: Pen, Time: 12:00 PM XX-Rybbasutxm-Chhkt r Work Phone: Start: 02-01-2021 KIET, Provider : Marisel Torrez, Status: Pen, Time: 11:30 AM ALEAHUSCHEYENNE, Provider: Marisel Torrez, Status: Pen, Time: 11:30 AM UG-Yureuogsiw-Jtsah r Work Phone: Start: 2018 COLOGUARD (FIT-DNA) COLOGUARD (FIT-D NA) [facility] Start: 2018 Colonoscopy COLONOSCOPY [facility] Start: 2018 COLORECTAL CANCER SCREENING COLORECTAL CANCER SCREENING [facility] Start: [address] [facility] Start: 2018 FECAL OCCULT BLOOD FECAL OCCULT BLOO D [facility] Start: 2018 Screening for malign ant neoplasm of colon [facility] Start: 2018 SIGMOIDOSCOPY SIGMOIDOSCOPY [facility] Start: 09-26-2003 Zoledronic acid therapy ALPHA- 1 ANTITRYPSIN DEFICIENCY SCREENING [facility] Start: 1993 Hepatitis B Vaccine (1 of 3 - Risk Dialysis 4-dose series) Hepatitis B Vaccine (1 of 3 - Risk Dialysis 4-dose series) [facility] Start: 1992 Hepatitis B Vaccines (1 of 3 - 19+ 3-dose series) Hepatitis B Vaccines (1 of 3 - 19+ 3-dose series) [facility] Start: 1992 SHINGRIX VACCINE (1 of 2) FRANKLIN GRIX VACCINE (1 of 2) [facility] Start: 1992 Urine microalbumin profile DTAP,TDAP ,TD (1 - Tdap) [facility] Start: 1992 Urine screening for protein CKD: Urine Protein Screening [facility] Start: 09-26-1991 BP CONTROLLED (<130/80) BP CONTROLLE D (<130/80) [facility] Start: 09-26-1991 SPIROMETRY SPIROMETRY [facility] Start: 1974 MMR Vaccines (1 of 1 - Standard series) MMR Vaccines (1 of 1 - Standard series) [facility] Start: 1973 Lipid panel Lipid Panel [facility] Start: 1973 Medicare Annual Well ness Visit Medicare Annual Wellness Visit (AWV) [facility] Start: 1973 Screening for malign ant neoplasm of colon [facility] Bacteria identified in Body fluid by Culture BODY FLUID CULTURE AND GRAM STAIN Microbiology Routine Recurrent right pleural effusion 02/14/2022 11:28 AM EDT [facility] Work Phone: End: 12-08-2024 Blood type and Indirect antibody screen panel - Blood Type and Screen Lab Routine Once (Lab) for 1 Occurrences starting 12/08/2024 until 12/08/2024 [facility] Work Phone: Comment on above: Once (Lab) for 1 Occ urrences starting 12/08/2024 until 12/08/2024 End: 12-11-2024 CBC W Auto Differential panel - Blood CBC and Auto Differential Lab Routine Morning draw (Lab) for 3 Occurrences starting 12/09/2024 until 12/11/2024 [facility] Work Phone: Comment on above: Morning draw (Lab) f or 3 Occurrences starting 12/09/2024 until 12/11/2024 End: 06-21-2024 Ct angio abd&plvis cntrst mtrl w/wo cntrst img CTA ABD/PEL WO/W IVCON Radiology Routine Vasculopathy SVC (superior vena cava obstruction) 1 Occurrences starting 05/23/2023 until 06/21/2024 [facility] Work Phone: Comment on above: 1 Occurrences starti ng 05/23/2023 until 06/21/2024 End: 06-21-2024 Ct angiography chest w/contrast/noncontrast CTA CHEST (NONGATED) WO/W IVCON Radiology Routine Vasculopathy SVC (superior vena cava obstruction) 1 Occurrences starting 05/23/2023 until 06/21/2024 [facility] Work Phone: Comment on above: 1 Occurrences starti ng 05/23/2023 until 06/21/2024 End: 06-27-2024 Ct angiography chest w/contrast/noncontrast CTA CHEST (NONGATED) WO/W IVCON Radiology Routine Vasculopathy 1 Occurrences starting 05/29/2023 until 06/27/2024 [facility] Work Phone: Comment on above: 1 Occurrences starti ng 05/29/2023 until 06/27/2024 CYTOLOGY NON-DIESEL ENGINE ENGINEER CYTOLOGY NON-GY N Lab Routine 02/14/2022 11:27 AM EDT [facility] Work Phone: End: 06-04-2024 Echocardiography ECHO Cardiology Routine ESRD (end stage renal disease) (HCC) 1 Occurrences starting 06/04/2023 until 06/04/2024 [facility] Work Phone: Comment on above: 1 Occurrences starti ng 06/04/2023 until 06/04/2024 End: 12-08-2024 Electrocardiogram, 12-lead PRN ACS symptoms [facility] Service Area Work Phone: Comment on above: As needed until disc ontinued starting 12/08/2024 Once for 1 Occurrenc es starting 12/08/2024 until 12/08/2024 End: 12-09-2024 Hemodialysis Hemodialysis inpatient 3 Hours Dialysis Routine Once for 1 Occurrences starting 12/09/2024 until 12/09/2024 [facility] Work Phone: Comment on above: Once for 1 Occurrenc es starting 12/09/2024 until 12/09/2024 IR INTERVENTIONAL RADIOLOGY CONSULT IR INTERVENTIONAL RADIOLOGY CONSULT Radiology Routine Pleural effusion Ordered: 06/11/2022 [facility] Work Phone: Comment on above: Ordered: 06/11/2022 IR INTERVENTIONAL RADIOLOGY CONSULT IR INTERVENTIONAL RADIOLOGY CONSULT Radiology Routine Pleural effusion Ordered: 06/21/2022 [facility] Work Phone: Comment on above: Ordered: 06/21/2022 IR INTERVENTIONAL RADIOLOGY CONSULT IR INTERVENTIONAL RADIOLOGY CONSULT Radiology Routine Pleural effusion Ordered: 07/25/2022 [facility] Work Phone: Comment on above: Ordered: 07/25/2022 End: 12-11-2024 Magnesium [Mass/volume] in Serum or Plasma Magnesium Lab Routine Morning draw (Lab) for 3 Occurrences starting 12/09/2024 until 12/11/2024 [facility] Work Phone: Comment on above: Morning draw (Lab) f or 3 Occurrences starting 12/09/2024 until 12/11/2024 End: 12-08-2024 Magnesium [Mass/volume] in Serum or Plasma Magnesium Lab Routine Evening draw (Lab) for 1 Occurrences starting 12/08/2024 until 12/08/2024 [facility] Work Phone: Comment on above: Evening draw (Lab) f or 1 Occurrences starting 12/08/2024 until 12/08/2024 End: 07-03-2024 NM CARDIAC PERF STRESS/PHARM NM CARDIAC PERF STRESS/PHARM Radiology Routine Encounter for screening for cardiovascular disorders ESRD (end stage renal disease) (HCC) 1 Occurrences starting 06/04/2023 until 07/03/2024 [facility] Work Phone: Comment on above: 1 Occurrences starti ng 06/04/2023 until 07/03/2024 Patient Education [facility] Work Phone: Patient referral [facility] Work Phone: End: 11-17-2022 Radiologic exam chest 2 views XR CHEST 2V FRONTAL/LAT Radiology Routine History of pneumonia 1 Occurrences starting 10/18/2021 until 11/17/2022 [facility] Work Phone: Comment on above: 1 Occurrences starti ng 10/18/2021 until 11/17/2022 End: 05-25-2023 Radiologic exam chest 2 views XR CHEST 2V FRONTAL/LAT Radiology Routine Pleural effusion 1 Occurrences starting 04/25/2022 until 05/25/2023 [facility] Work Phone: Comment on above: 1 Occurrences starti ng 04/25/2022 until 05/25/2023 End: 06-28-2023 Radiologic exam chest 2 views XR CHEST 2V FRONTAL/LAT Radiology Routine Pleural effusion 1 Occurrences starting 05/29/2022 until 06/28/2023 [facility] Work Phone: Comment on above: 1 Occurrences starti ng 05/29/2022 until 06/28/2023 End: 09-18-2023 Radiologic exam chest 2 views XR CHEST 2V FRONTAL/LAT Radiology Routine Pleural effusion 1 Occurrences starting 08/19/2022 until 09/18/2023 [facility] Work Phone: Comment on above: 1 Occurrences starti ng 08/19/2022 until 09/18/2023 End: 10-02-2023 Radiologic exam chest 2 views XR CHEST 2V FRONTAL/LAT Radiology Routine Pleural effusion 1 Occurrences starting 09/02/2022 until 10/02/2023 [facility] Work Phone: Comment on above: 1 Occurrences starti ng 09/02/2022 until 10/02/2023 End: 12-11-2024 Renal function 2000 panel - Serum or Plasma Renal Function Panel Lab Routine Morning draw (Lab) for 3 Occurrences starting 12/09/2024 until 12/11/2024 [facility] Work Phone: Comment on above: Morning draw (Lab) f or 3 Occurrences starting 12/09/2024 until 12/11/2024 End: 12-08-2024 Renal function 2000 panel - Serum or Plasma Renal function panel Lab Routine Evening draw (Lab) for 1 Occurrences starting 12/08/2024 until 12/08/2024 [facility] Work Phone: Comment on above: Evening draw (Lab) f or 1 Occurrences starting 12/08/2024 until 12/08/2024 Thoracentesis THORACENTESIS Cardiology Routine Recurrent right pleural effusion Ordered: 02/26/2022 [facility] Work Phone: Comment on above: Ordered: 02/26/2022 Thoracentesis needle /cath pleura w/imaging IMAGING GUIDED THORACENTESIS Radiology Routine Recurrent right pleural effusion Ordered: 03/05/2022 [facility] Work Phone: Comment on above: Ordered: 03/05/2022 End: 08-08-2024 US AV fistula US A/V FISTULA GRAFT UNL [facility] Vascular Lab Routine ESRD (end stage renal disease) ([facility]) Arteriovenous fistula, acquired ([facility]) 1 Occurrences starting 08/08/2023 until 08/08/2024 [facility] Work Phone: Comment on above: 1 Occurrences starti ng 08/08/2023 until 08/08/2024 End: 10-22-2024 US AV fistula US A/V FISTULA GRAFT [facility] Vascular Lab Routine ESRD (end stage renal disease) ([facility]) 1 Occurrences starting 10/23/2023 until 10/22/2024 [facility] Work Phone: Comment on above: 1 Occurrences starti ng 10/23/2023 until 10/22/2024 End: 11-22-2023 US CAROTID ARTERIES MIA [facility] US CAROTID ARTERIES MIA [facility] Vascular Lab Routine Bilateral carotid bruits 1 Occurrences starting 11/21/2022 until 11/22/2023 [facility] Work Phone: Comment on above: 1 Occurrences starti ng 11/21/2022 until 11/22/2023 End: 06-04-2024 US LEG VEIN MAP MIA [facility] US LEG VEIN MAP MIA [facility] Vascular Lab Routine ESRD (end stage renal disease) ([facility]) 1 Occurrences starting 06/04/2023 until 06/04/2024 [facility] Work Phone: Comment on above: 1 Occurrences starti ng 06/04/2023 until 06/04/2024 End: 10-22-2024 US Lower extremity artery US LEG ARTERIAL PERIPH UNL [facility] Vascular Lab Routine ESRD (end stage renal disease) ([facility]) 1 Occurrences starting 10/23/2023 until 10/22/[address] [facility] Comment on above: 1 Occurrences starti ng 10/23/2023 until 10/22/2024 End: 08-08-2024 US Upper extremity artery US ARM ARTERIAL UNL [facility] Vascular Lab Routine ESRD (end stage renal disease) (HCC) Arteriovenous fistula, acquired (HCC) 1 Occurrences starting 08/08/2023 until 08/08/2024 [facility] Work Phone: Comment on above: 1 Occurrences starti ng 08/08/2023 until 08/08/2024 End: 10-22-2024 US Upper extremity artery US ARM ARTERIAL UNL [facility] Vascular Lab Routine Arteriovenous fistula, acquired (HCC) 1 Occurrences starting 10/23/2023 until 10/22/2024 [facility] Work Phone: Comment on above: 1 Occurrences starti ng 10/23/2023 until 10/22/2024 [facility] Immunizations Immunization Date Immunization Notes Care Provider [facility] 11-21-2022 COVID-19 vaccine, ag e 12+ yr, bivalent ([employer]) Tom Conte MD Work Phone: [facility] 05-28-2021 SARS-CoV-2 mRNA (tozinameran) vaccine DR HARVEY HARVEY MD [facility] 05-07-2021 SARS-CoV-2 mRNA (tozinameran) vaccine DR HARVEY HARVEY MD [facility] 04-23-2021 Covid (Pfizer) Dr. Tom mcrae Work Phone: [facility] 10-23-2020 tetanus toxoid, redu sahara diphtheria toxoid, and acellular pertussis vaccine, adsorbed Manjit Field MD Work Phone: [facility] 10-23-2020 tetanus toxoid, redu sahara diphtheria toxoid, and acellular pertussis vaccine, adsorbed; Translations: [Boostrix (Tdap)] ODILIA DAVILA DO [facility] 05-07-2020 COVID-19 original vaccine, age 12+ yr, monovalent ([employer] - PURPLE TOP) Manjit Field MD Work Phone: [facility] 03-23-2019 influenza virus vacc ine, unspecified formulation DR HARVEY HARVEY MD [facility] 03-23-2019 influenza, seasonal, injectable Tom Conte Work Phone: [facility] 04-07-2017 pneumococcal conjuga te vaccine, [address] Tom Conte Work Phone: [facility] 10-23-2016 pneumococcal conjuga te vaccine, 13 valent Tom Conte Work Phone: [facility] 05-23-[address] Tom Conte Work Phone: [facility] 05-23-2016 influenza, seasonal, injectable, preservative free Manjit Field MD Work Phone: [facility] 06-03-2015 influenza nasal, unspecified formulation Manjit Field MD Work Phone: [facility] 06-03-2015 influenza virus vacc ine, unspecified formulation Tom Conte Work Phone: [facility] 06-03-2015 pneumococcal polysaccharide vaccine, 23 valent Tom Conte Work Phone: [facility] 04-11-[address] Tom Conte Work Phone: [facility] 04-11-2015 influenza, seasonal, injectable Manjit Field MD Work Phone: [facility] 03-23-[address] Tom Conte Work Phone: [facility] 03-23-2014 influenza, seasonal, injectable Manjit Field MD Work Phone: [facility] 02-24-2014 pneumococcal polysaccharide vaccine, 23 valent ODILIASARA LANDEROSKA DO [facility] 11-19-2013 tetanus toxoid, redu sahara diphtheria toxoid, and acellular pertussis vaccine, adsorbed ODILIA DURESKA DO [facility] 12-04-2007 pneumococcal polysaccharide vaccine, 23 valent Tom Conte MD Work Phone: [facility] 06-23-2007 pneumococcal polysaccharide vaccine, 23 valent ODILIA DAVILA DO [facility] 05-16-2003 influenza virus vacc ine, unspecified formulation Tom Conte MD Work Phone: [facility] 06-23-1996 pneumococcal polysaccharide vaccine, 23 valraisa Field MD Work Phone: [facility] 06-23-[address] Shawn Conte Work Phone: [facility] Work Phone: 06-23-1996 pneumococcal vaccine , unspecified formulation Dr. Tom Conte Work Phone: [facility] Payers Date Payer Category Payer Private Health Insurance [id number] 2024 Unknown 2024 Self-pay [id number] 2023 Dual Eligibility Medicare/Medicaid Organization [id number] 2023 Medicare (Managed Care) ELIEL Chopra [facility] MEDICARE [id number] 2023 Unknown [id number] 2021 [place] [id number] 2021-Present [phone] [address] [place] [address] Medicaid [id number] 2021 Medicaid [id number] 2017 Medicaid [id number] 2016 Medicare [id number] 2007 Medicare MEDICARE MEDICAR E A AND B [id number] 2007-Present [phone] [place] [address] Medicare [id number] 2007 Medicare [id number] 2007 Medicare [id number] 1973 Unknown [id number] [id number] .594 1973 Unknown [id number] 2.16.840.1.918016.3.579.2 .651 1973 Unknown [id number] 2.16.840.1.372092.3.579.2 .65 1973 Unknown [id number] 2.16.840.1.748615.3.579.2 .65 1973 Unknown [id number] 2.16.840.1.265267.3.579.2 .65 1973 Unknown [id number] 2.16.840.1.562913.3.579.2 .65 1973 Unknown [id number] 2.16840.1.876230.3.579.2 .1973 Unknown [id number] 2.840.1.660972.3.579.2 1973 Unknown [id number] 2.840.1.694342.3.579.2 .1973 Unknown [id number] 2.840.1.499638.3.579.2 .1973 Unknown [id number] .840.1.745853.3.579.2 .1973 Unknown [id number] 2.16840.1.061736.3.579.2 .1973 Unknown [id number] .840.1.615809.3.579.2 .1973 Unknown [id number] .16840.1.393620.3.579.2 .1973 Unknown [id number] 2.16840.1.172901.3.579.2 .1973 Unknown [id number] 2.16840.1.426709.3.579.2 .1973 Unknown [id number] 2.16840.1.108276.3.579.2 1973 Unknown [id number] 2.16.840.1.186041.3.579.2 1973 Unknown [id number] 2.16.840.1.624016.3.579.2 1973 Unknown [id number] 2.16.840.1.628319.3.579.2 1973 Unknown [id number] 2.16.840.1.467179.3.579.2 1973 Unknown [id number] 2.16.840.1.857550.3.579.2 1973 Unknown [id number] 2.16.840.1.416891.3.579.2 1973 Unknown [id number] 2.16.840.1.478760.3.579.2 1973 Unknown [id number] 2.16840.1.521996.3.579.2 1973 Unknown [id number] 2.16.840.1.484517.3.579.2 1973 Unknown [id number] 2.16.840.1.544494.3.579.2 1973 Unknown [id number] 2.16.840.1.113149.3.579.2 1973 Unknown [id number] 1975 Unknown [id number] 2.16.840.1.376670.3.579.2 1975 Unknown [id number] 2.16.840.1.305154.3.579.2 1973 Unknown [id number] 2.16.840.1.874459.3.579.2 1973 Unknown [id number] 2.16.840.1.669386.3.579.2 .1245 1973 Unknown [id number] 2.16.840.1.399850.3.579.2 .124 1973 Unknown [id number] 2.16.840.1.378361.3.579.2 .124 1973 Unknown [id number] 2.16.840.1.616509.3.579.2 .1244 1973 Unknown [id number] 2.16.840.1.311699.3.579.2 .124 1973 Unknown [id number] 2.16.840.1.357882.3.579.2 .1244 1973 Unknown [id number] 2.16.840.1.236035.3.579.2 .1245 Unknown [id number] 2.16840.1.608504.3.579.2 .462 Unknown [id number] 2.16.840.1.643141.3.579.2 .462 Unknown [id number] 2.16.840.1.436846.3.579.2 .462 Unknown [id number] 2.16.840.1.778900.3.579.2 .462 Unknown [id number] 2.16.840.1.817795.3.579.2 .462 Unknown [id number] 2.16840.1.037716.3.579.2 .462 Unknown [id number] 2.16840.1.695499.3.579.2 .462 Unknown [id number] 2.16.840.1.740889.3.579.2 .462 Unknown [id number] 2.16840.1.429639.3.579.2 .462 Social History Date Type Detail Facility Assertion Unknown if ever smoked [facility] Work Phone: Start: 12-07-2018 End: 11-30-2024 Light tobacco smoker (finding) [facility] Sex Assigned At [facility] Start: 12-20-2014 End: 04-01-2024 Tobacco smoking status NHIS Smokes tobacco daily [facility] History of tobacco use Cigarette Smoker C [facility] Start: 12-20-2014 End: 02-15-2025 Cigarettes smoked current (pack per day) - Reported 0.[address] [facility] Start: 12-20-2014 End: 04-01-2024 Tobacco use and exposure Smokeless tobacco non-user [facility] Start: 09-04-2021 End: 05-30-2024 Alcohol intake Current non-drinker of alcohol (finding) [facility] Start: 10-04-2020 End: 09-02-2022 History SDOH Alcohol Frequency [address] [facility] Start: 10-04-2020 History SDOH Alcohol Std Drinks [address] [facility] Start: 10-04-2020 End: 08-26-2022 History SDOH Social Connections Phone [address] [facility] Start: 10-04-2020 End: 09-02-2022 History SDOH Social Connections Membership [address] [facility] Start: 10-04-2020 History SDOH Social Connections Living [address] [facility] Start: 10-04-2020 End: 08-26-2022 History SDOH Physical Activity DPW [address] [facility] Start: 10-04-2020 End: 08-26-2022 History SDOH Physical Activity MPS [address] [facility] Start: 10-03-2020 Education [address] [facility] Start: 07-11-2020 End: 02-12-2022 Tobacco Comment off and on, less than half of pack [facility] Start: 1975 Sex Assigned At Not on file C [facility] Start: 10-16-2020 End: 05-23-2022 Exposure to SARS-CoV-2 (event) Not sure [facility] Start: 08-21-2021 End: 09-19-2022 Tobacco smoking status NHIS Unknown if ever smoked [facility] Start: 12-02-2016 None [facility] Start: 12-02-2016 Roommate [facility] Start: 10-20-2020 Non-smoker [facility] Start: 1975 Sex Assigned At Male [facility] Start: 08-26-2022 History SDOH Alcohol Std Drinks [address] [facility] Start: 08-26-2022 End: 09-02-2022 History SDOH Stress [address] [facility] Start: 08-26-2022 End: 02-15-2025 Social connection and isolation panel [facility] Do you belong to any clubs or organizations such as muslim groups, unions, [employer] or athletic groups, or school groups? No [facility] Are you now , , , , never or living with a partner? [facility] How often to you hav e a drink containing alcohol? Never [facility] Start: 05-17-[address] inks containing alcohol do you have on a typical day? Patient does not drink [facility] How hard is it for y ou to pay for the very basics like food, housing, medical care, and heating Not very hard [facility] Do you feel stress - tense, restless, nervous, or anxious, or unable to sleep at night because your mind is troubled all the time - these days [OSQ] Rather much [facility] (I/We) worried wheaaron er (my/our) food would run out before (I/we) got money to buy more. Never true [facility] Start: 05-02-2021 Gender identity Identifies as male gender (finding) [facility] Start: 05-02-2021 Sexual orientation Heterosexual (fin ding) [facility] Start: 07-17-2023 Tobacco Comment off and on, co uple cigarettes per day [facility] Are you now , , , , never or living with a partner? Living with partner [facility] Do you feel stress - tense, restless, nervous, or anxious, or unable to sleep at night because your mind is troubled all the time - these days [OSQ] Only a little [facility] Start: 04-01-2008 End: 10-13-2024 Sex Male (finding) [facility] Start: 12-23-2024 End: 01-14-2025 Tobacco smoking status Ex-smoker (finding) [facility] Comment on above: Quir smoking 11/2024 History of tobacco use [facility] Start: 02-15-2025 Alcoholic beverage intake Ex-drinker (finding) [facility] Work Phone: Do you feel stress - tense, restless, nervous, or anxious, or unable to sleep at night because your mind is troubled all the time - these days [OSQ] To some extent [facility] Work Phone: Start: 02-15-2025 Tobacco Comment Using nicotine patches for the past 3 months to assist with quitting. [facility] Work Phone: Medical Equipment Procedure Code Equipment Code Equipment Origin al Text Equipment Identifier Dates FDA Start: 09-30-2017 FDA Start: 09-30-2017 Catheter [place]ck Curl Cath 15fr 180d Silicone 62.5cm Dialysis 2 - [id number] Start: 07-18-2020 FDA Start: 09-30-2017 SUTURE,LIGA CLIP MED LT200 FDA Start: 02-05-2018 SUTURE,LIGA CLIP SM LT-100 FDA Start: 02-05-2018 SUTURE,LIGA CLIP MED LT200 FDA Start: 02-05-2018 SUTURE,LIGA CLIP MED LT200 FDA Start: 02-05-2018 SUTURE,LIGA CLIP MED LT200 FDA Start: 02-05-2018 SUTURE,LIGA CLIP SM LT-100 FDA Start: 02-05-2018 SUTURE,LIGA CLIP SM LT-100 FDA Start: 02-05-2018 SUTURE,LIGA CLIP SM LT-100 FDA Start: 02-05-2018 SUTURE,LIGA CLIP SM LT-100 FDA Start: 02-05-2018 SUTURE,LIGA CLIP SM LT-100 FDA Start: 02-05-2018 Unknown Unknown 09/30/17 Unknown Unknown FDA Start: 09-30-2017 SUTURE,LIGA CLIP MED LT200 FDA Start: 02-05-2018 SUTURE,LIGA CLIP SM LT-100 FDA Start: 02-05-2018 SUTURE,LIGA CLIP MED LT200 FDA Start: 02-05-2018 SUTURE,LIGA CLIP MED LT200 FDA Start: 02-05-2018 SUTURE,LIGA CLIP MED LT200 FDA Start: 02-05-2018 SUTURE,LIGA CLIP SM LT-100 FDA Start: 02-05-2018 SUTURE,LIGA CLIP SM LT-100 FDA Start: 02-05-2018 SUTURE,LIGA CLIP SM LT-100 FDA Start: 02-05-2018 SUTURE,LIGA CLIP SM LT-100 FDA Start: 02-05-2018 SUTURE,LIGA CLIP SM LT-100 FDA Start: 02-05-2018 Kit Aspira Drain age Starter 1 Insertion Tray Catheter Peritoneal Pleural - [id number] Start: 04-04-2022 SUTURE,LIGA CLIP MED LT200 FDA Start: 02-05-2018 SUTURE,LIGA CLIP SM LT-100 FDA Start: 02-05-2018 SUTURE,LIGA CLIP MED LT200 FDA Start: 02-05-2018 SUTURE,LIGA CLIP MED LT200 FDA Start: 02-05-2018 SUTURE,LIGA CLIP MED LT200 FDA Start: 02-05-2018 SUTURE,LIGA CLIP SM LT-100 FDA Start: 02-05-2018 SUTURE,LIGA CLIP SM LT-100 FDA Start: 02-05-2018 SUTURE,LIGA CLIP SM LT-100 FDA Start: 02-05-2018 SUTURE,LIGA CLIP SM LT-100 FDA Start: 02-05-2018 SUTURE,LIGA CLIP SM LT-100 FDA Start: 02-05-2018 Kit Aspira Drain age Starter 1 Insertion Tray Catheter Peritoneal Pleural - [id number] Start: 06-25-2022 SUTURE,LIGA CLIP MED LT200 FDA Start: 02-05-2018 SUTURE,LIGA CLIP SM LT-100 FDA Start: 02-05-2018 SUTURE,LIGA CLIP MED LT200 FDA Start: 02-05-2018 SUTURE,LIGA CLIP MED LT200 FDA Start: 02-05-2018 SUTURE,LIGA CLIP MED LT200 FDA Start: 02-05-2018 SUTURE,LIGA CLIP SM LT-100 FDA Start: 02-05-2018 SUTURE,LIGA CLIP SM LT-100 FDA Start: 02-05-2018 SUTURE,LIGA CLIP SM LT-100 FDA Start: 02-05-2018 SUTURE,LIGA CLIP SM LT-100 FDA Start: 02-05-2018 SUTURE,LIGA CLIP SM LT-100 FDA Start: 02-05-2018 Unknown Unknown 09/30/17 Unknown Unknown FDA Start: 09-30-2017 Unknown Unknown 09/30/17 Unknown Unknown FDA Start: 09-30-2017 SUTURE,LIGA CLIP MED LT200 FDA Start: 02-05-2018 SUTURE,LIGA CLIP SM LT-100 FDA Start: 02-05-2018 SUTURE,LIGA CLIP MED LT200 FDA Start: 02-05-2018 SUTURE,LIGA CLIP MED LT200 FDA Start: 02-05-2018 SUTURE,LIGA CLIP MED LT200 FDA Start: 02-05-2018 SUTURE,LIGA CLIP SM LT-100 FDA Start: 02-05-2018 SUTURE,LIGA CLIP SM LT-100 FDA Start: 02-05-2018 SUTURE,LIGA CLIP SM LT-100 FDA Start: 02-05-2018 SUTURE,LIGA CLIP SM LT-100 FDA Start: 02-05-2018 SUTURE,LIGA CLIP SM LT-100 FDA Start: 02-05-2018 Unknown Unknown 09/30/17 Unknown Unknown FDA Start: 09-30-2017 Unknown Unknown 09/30/17 Unknown Unknown FDA Start: 09-30-2017 Unknown Unknown 09/30/17 Unknown Unknown FDA Start: 09-30-2017 [id number] Itrev ia 7 [id number] Start: 02-03-2015 Unknown Unknown 09/30/17 Unknown Unknown FDA Start: 09-30-2017 SUTURE,LIGA CLIP MED LT200 FDA Start: 02-05-2018 SUTURE,LIGA CLIP SM LT-100 FDA Start: 02-05-2018 SUTURE,LIGA CLIP MED LT200 FDA Start: 02-05-2018 SUTURE,LIGA CLIP MED LT200 FDA Start: 02-05-2018 SUTURE,LIGA CLIP MED LT200 FDA Start: 02-05-2018 SUTURE,LIGA CLIP SM LT-100 FDA Start: 02-05-2018 SUTURE,LIGA CLIP SM LT-100 FDA Start: 02-05-2018 SUTURE,LIGA CLIP SM LT-100 FDA Start: 02-05-2018 SUTURE,LIGA CLIP SM LT-100 FDA Start: 02-05-2018 SUTURE,LIGA CLIP SM LT-100 FDA Start: 02-05-2018 Unknown Unknown 09/30/17 Unknown Unknown FDA Start: 09-30-2017 SUTURE,LIGA CLIP MED LT200 FDA Start: 02-05-2018 SUTURE,LIGA CLIP SM LT-100 FDA Start: 02-05-2018 SUTURE,LIGA CLIP MED LT200 FDA Start: 02-05-2018 SUTURE,LIGA CLIP MED LT200 FDA Start: 02-05-2018 SUTURE,LIGA CLIP MED LT200 FDA Start: 02-05-2018 SUTURE,LIGA CLIP SM LT-100 FDA Start: 02-05-2018 SUTURE,LIGA CLIP SM LT-100 FDA Start: 02-05-2018 SUTURE,LIGA CLIP SM LT-100 FDA Start: 02-05-2018 SUTURE,LIGA CLIP SM LT-100 FDA Start: 02-05-2018 SUTURE,LIGA CLIP SM LT-100 FDA Start: 02-05-2018 SUTURE,LIGA CLIP MED LT200 FDA Start: 02-05-2018 SUTURE,LIGA CLIP SM LT-100 FDA Start: 02-05-2018 SUTURE,LIGA CLIP MED LT200 FDA Start: 02-05-2018 SUTURE,LIGA CLIP MED LT200 FDA Start: 02-05-2018 SUTURE,LIGA CLIP MED LT200 FDA Start: 02-05-2018 SUTURE,LIGA CLIP SM LT-100 FDA Start: 02-05-2018 SUTURE,LIGA CLIP SM LT-100 FDA Start: 02-05-2018 SUTURE,LIGA CLIP SM LT-100 FDA Start: 02-05-2018 SUTURE,LIGA CLIP SM LT-100 FDA Start: 02-05-2018 SUTURE,LIGA CLIP SM LT-100 FDA Start: 02-05-2018 Unknown Unknown 09/30/17 Unknown Unknown FDA Start: 09-30-2017 Unknown Unknown 09/30/17 Unknown Unknown FDA Start: 09-30-2017 Unknown Unknown 09/30/17 Unknown Unknown FDA Start: 09-30-2017 Unknown Unknown 09/30/17 Unknown Unknown FDA Start: 09-30-2017 Unknown Unknown 09/30/17 Unknown Unknown FDA Start: 09-30-2017 Unknown Unknown 09/30/17 Unknown Unknown FDA Start: 09-30-2017 Unknown Unknown 09/30/17 Unknown Unknown FDA Start: 09-30-2017 Unknown Unknown 09/30/17 Unknown Unknown FDA Start: 09-30-2017 Goals Date Patient Goal Desired Activity /State Personal health goal Functional Status Date Assessment Result Facility 02-15-2025 Patient Health Questionnaire 2 item (PHQ-2) [Reported] [facility] Work Phone: 02-15-2025 Total score [AUDIT-C] 0 02/16/20 25 11:27 AM Nanci Palmer LSW [facility] Work Phone: 12-08-2024 Friendly - suicide severity rating scale screener - recent [C-SSRS] [facility] Work Phone: 08-08-2023 Are you deaf, or do you have serious difficulty hearing No 08/08/2023 6:21 PM Desiree Bentley, MADONNA No [facility] 08-08-2023 Are you blind, or do you have serious difficulty seeing, even when wearing glasses No 08/08/2023 6:21 PM Desiree Bentley, MADONNA No [facility] 08-08-2023 Do you have serious difficulty walking or climbing stairs Yes 08/08/2023 6:21 PM Desiree Bentley, MADONNA Yes [facility] 08-08-2023 Do you have difficul ty dressing or bathing Yes 08/08/2023 6:21 PM Desiree Bentley, MADONNA Yes [facility] 08-08-2023 Because of a physica l, mental, or emotional condition, do you have difficulty doing errands alone such as visiting a physician's office or shopping No 08/08/2023 6:21 PM Desiree Bentley, MADONNA No [facility] 01-16-2023 Functional Status Independent [facility] 01-16-2023 Functional Status ID band on, Allergy Band on, Call device within reach, Bed in low position, Wheels locked, Upper/Half-Length side-rails up, Visitor at bedside [facility] 12-28-2022 Functional Status Independent [facility] 12-09-2022 Functional Status Up ad carolyn [facility] 12-09-2022 Functional Status Standard Safet y ID band on, Allergy Band on, Call device within reach, Bed in low position, Wheels locked [facility] 08-31-2022 Functional Status Standard Safet y ID band on, Allergy Band on, Call device within reach, Bed in low position, Wheels locked, Upper/Half-Length side-rails up, Phone within reach, personal items within reach, Bedside Cart Locked, Visitor at bedside [facility] 08-15-2022 Functional Status Standard Safet y ID band on, Allergy Band on, Call device within reach, Bed in low position, Wheels locked, Bedside Cart Locked, Visitor at bedside, Safety level maintained [facility] 02-04-2022 Functional status Bedrest [facility] Work Phone: 01-27-2022 Functional Status Standard Safet y ID band on, Allergy Band on, Call device within reach, Bed in low position, Wheels locked, Upper/Half-Length side-rails up, Bedside Cart Locked, Visitor at bedside, Safety level maintained [facility] 10-11-2021 Functional Status [facility] Work Phone: NEGATED: Highlighted row Functional performance Functional status health issues are not documented Disease [facility] Work Phone: Mental Status Date Assessment Result Facility 08-08-2023 Because of a physical, mental, or emotional condition, do you have serious difficulty concentrating, remembering, or making decisions No 08/08/2023 6:21 PM Desiree Bentley RN [facility] 01-16-2023 Mental Status Orientation [facility] x [address] [place] [address] 01-16-2023 Mental Status [facility] 12-28-2022 Mental Status Orientation Orie nted x [address] [place] [address] 12-09-2022 Mental Status Orientation [address] 12-09-2022 Mental Status [facility] 08-31-2022 Mental Status Orientation Orie nted x [address] [place] [address] 08-15-2022 Mental Status Oriented x [address] [place] [address] 07-30-2022 Cognitive function Voice/Name [facility] Work Phone: 06-29-2022 Cognitive function Level Of Cons ciousness Awake;Alert;Appropriate [facility] Work Phone: 02-04-2022 Cognitive function Voice/Name [facility] Work Phone: 01-27-2022 Mental Status Oriented x 4 [facility] 10-11-2021 Mental Status [facility] NEGATED: Highlighted row Cognitive function [Interpretation] Cognitive status health issues are not documented Disease [facility] Work Phone: Clinical Notes 02-03-2015 to 03-11-2025 Tonya Bell MD - 02/15/2025 2:30 PM EDTLoida Perea MD - 02/15/2025 2:00 PM EDT Note Date & Type Note Facility 03-11-2025 Hospital Discharge instructions Patient Education 03/11/2025 01:03:14 Skin Avulsion Skin Tear (Skin Avulsion) A skin avulsion is a tearing of the top layer of skin. This commonly happens after a fall or other injury. It also tends to be more common in older people, or those taking blood thinners or steroids for long periods of time. Home care These guidelines will help you care for your wound at home: Keep the wound clean and dry for the first 24 to 48 hours, or as your healthcare provider advises. If there is a dressing or bandage, change it when it gets wet or dirty. Otherwise, leave it on for the first 24 hours, then change it once a day or as often as the doctor says. If stitches or yajaira were used, check the wound every day. After taking off the dressing, wash the area gently with soap and water. Clean as close to the stitches as you can. Avoid washing or rubbing the stitches directly. After 3 days you can keep the bandages off the wound, unless told otherwise, or there is continued drainage. Allow the wound to be open to the air. Keep a thin layer of antibiotic ointment on the cut. This will keep the wound clean, make it easier to remove the stitches, and reduce scarring. If your wound is oozing, you can put a nonstick dressing over it. Then, reapply the bandage or dressing as you were told. You can shower as usual after the first 24 hours, but don't soak the area in water (no baths or swimming) until the stitches or yajaira are taken out. If surgical tape was used, keep the area clean and dry. If it becomes wet, blot it dry with a clean towel. If skin glue was used, don't put any creams, lotions, or antibiotic ointments on it. These can dissolve the glue. Usually the glue will flake off in about 5 to 10 days by itself. Try to resist picking it off before that so the wound doesn't open up. When it gets wet, pat it dry. Here is some information about medicine: You may use rhny-fcs-vpcjinl medicine such as acetaminophen or ibuprofen to control pain, unless another pain medicine was given. If you have chronic liver or kidney disease or ever had a stomach ulcer or gastrointestinal bleeding, talk with your doctor before using these medicines. If you were given antibiotics, take them until they are all used up. It is important to finish the antibiotics even if the wound looks better. This will ensure that the infection has cleared. Follow-up care Follow up with your healthcare provider, or as advised. Watch for any signs of infection, such as increasing redness, swelling, or pus coming out. If this happens, don't wait for your scheduled visit. Instead, see a doctor sooner. Stitches or yajaira are usually taken out within 5 to 14 days. This varies depending on what part of your body they are on, and the type of wound. The doctor will tell you how long stitches should be left in. If surgical tape was used, it is usually left on for 7 to 10 days. You can remove surgical tape after that unless you were told otherwise. If you try to remove it, and it is too hard, soaking can help. Surgical tape strips will eventually fall off on their own. If the edges of the cut pull apart, stop removing the tape or strips and follow up with your doctor As mentioned above, skin glue will flake off by itself in 5 to 10 days, so you don't need to pull it off. If any X-rays were done, you will be notified of any changes that may affect your care. When to seek medical advice Call your healthcare provider right away if any of these occur: Increasing pain in the wound Redness, swelling, or pus coming from the wound Fever of 100.4 F (38 C) or higher, or as directed by your healthcare provider Sutures or yajaira come apart or fall out before your next appointment and the wound edges look as if they will re-open Surgical tape closures fall off before 7 days, and the wound edges look as if they will re-open Bleeding not controlled by direct pressure [id number] [employer]. [address] [place] [address], [place] [address]. All rights reserved. This information is not intended as a substitute for professional medical care. Always follow your healthcare professional's instructions. Follow Up Care 03/11/2025 00:04:32 With:MONIE ALSTON Address: [address] [place] [phone] Business (1) When:Within 1 Week(s) Comments:Follow-up as needed.Daily wound care with application of topical antibiotic ointment and dry sterile dressing.Watch for signs of infection.Return to the ED if symptoms worsen. [facility] 03-11-2025 Note Discharge Instructions Thank you for allowing [facility] to assist you with your healthcare needs. The following is important discharge information regarding your hospital visit. Diagnosis from Today's Visit Skin tear of left forearm without complication What to Do Next Instructions from Your Care Team No qualifying data available. Post Acute Orders No qualifying data available. You Need to Schedule the Following Appointments Follow Up with MONIE ALSTON When:In 1 week Where:[address] [place] [phone] [employer] (1) Additional Information: Follow-up as needed. Daily wound care with application of topical antibiotic ointment and dry sterile dressing. Watch for signs of infection. Return to the ED if symptoms worsen. Allergies penicillin (Moderate) Anaphylaxis, rash Contrast dye Skin rash, Fever fentaNYL Agitation propranolol Agitation Medications Please ask your primary doctor or pharmacist before taking any other medication not listed, including over the counter drugs, herbal medications, vitamins and or supplements as they may interact with your home medications. What How Much When Why Instructions Last Dose Unchanged acetaminophen (acetaminophen 325 mg oral capsule) 2 cap by mouth Every 4 hours as needed for for pain Unchanged albuterol (albuterol MDI (90 mcg/ inh) CFC free inhalation aerosol) 1 puff(s) by inhalation Every 4 hours as needed for as needed for wheezing Unchanged atorvastatin (atorvastatin 40 mg oral tablet) 1 tab(s) by mouth Once a day Unchanged budesonide-formoterol (Symbicort 80 mcg-4.5 mcg/ inh Inhaler) 2 puff(s) by inhalation Two (2) times a day COPD (chronic obstructive pulmonary disease) Unchanged busPIRone (busPIRone 5 mg oral tablet) 1 tab(s) by mouth Three (3) times a day Duration: 90 Days Unchanged calcium acetate (calcium acetate 667 mg oral capsule) 4 cap by mouth Three (3) times a day with meals Unchanged carvedilol (carvedilol 6.25 mg oral tablet) 1 tab(s) by mouth Two (2) times a day Unchanged hydrALAZINE (hydrALAZINE 25 mg oral tablet) 1 tab(s) by mouth Three (3) times a day Unchanged isosorbide mononitrate (isosorbide mononitrate 30 mg oral tablet, extended release) 2 tab(s) by mouth Once a day before a meal Unchanged sevelamer (Renvela 800 mg oral tablet (NF)) 1 tab(s) by mouth Three (3) times a day with meals Please take this list to your next doctor s visit. Bring all medications you take, including over the counter medications, herbals and other supplements with you to your doctor s visit. Patients and families are reminded to discard old lists and to update any records with all medication providers or retail pharmacies. Education Materials Skin Tear (Skin Avulsion) A skin avulsion is a tearing of the top layer of skin. This commonly happens after a fall or other injury. It also tends to be more common in older people, or those taking blood thinners or steroids for long periods of time. Home care These guidelines will help you care for your wound at home: Keep the wound clean and dry for the first 24 to 48 hours, or as your healthcare provider advises. If there is a dressing or bandage, change it when it gets wet or dirty. Otherwise, leave it on for the first 24 hours, then change it once a day or as often as the doctor says. If stitches or yajaira were used, check the wound every day. After taking off the dressing, wash the area gently with soap and water. Clean as close to the stitches as you can. Avoid washing or rubbing the stitches directly. After 3 days you can keep the bandages off the wound, unless told otherwise, or there is continued drainage. Allow the wound to be open to the air. Keep a thin layer of antibiotic ointment on the cut. This will keep the wound clean, make it easier to remove the stitches, and reduce scarring. If your wound is oozing, you can put a nonstick dressing over it. Then, reapply the bandage or dressing as you were told. You can shower as usual after the first 24 hours, but don't soak the area in water (no baths or swimming) until the stitches or yajaira are taken out. If surgical tape was used, keep the area clean and dry. If it becomes wet, blot it dry with a clean towel. If skin glue was used, don't put any creams, lotions, or antibiotic ointments on it. These can dissolve the glue. Usually the glue will flake off in about 5 to 10 days by itself. Try to resist picking it off before that so the wound doesn't open up. When it gets wet, pat it dry. Here is some information about medicine: You may use tdmc-puv-jmypocq medicine such as acetaminophen or ibuprofen to control pain, unless another pain medicine was given. If you have chronic liver or kidney disease or ever had a stomach ulcer or gastrointestinal bleeding, talk with your doctor before using these medicines. If you were given antibiotics, take them until they are all used up. It is important to finish the antibiotics even if the wound looks better. This will ensure that the infection has cleared. Follow-up care Follow up with your healthcare provider, or as advised. Watch for any signs of infection, such as increasing redness, swelling, or pus coming out. If this happens, don't wait for your scheduled visit. Instead, see a doctor sooner. Stitches or yajaira are usually taken out within 5 to 14 days. This varies depending on what part of your body they are on, and the type of wound. The doctor will tell you how long stitches should be left in. If surgical tape was used, it is usually left on for 7 to 10 days. You can remove surgical tape after that unless you were told otherwise. If you try to remove it, and it is too hard, soaking can help. Surgical tape strips will eventually fall off on their own. If the edges of the cut pull apart, stop removing the tape or strips and follow up with your doctor As mentioned above, skin glue will flake off by itself in 5 to 10 days, so you don't need to pull it off. If any X-rays were done, you will be notified of any changes that may affect your care. When to seek medical advice Call your healthcare provider right away if any of these occur: Increasing pain in the wound Redness, swelling, or pus coming from the wound Fever of 100.4 F (38 C) or higher, or as directed by your healthcare provider Sutures or yajaira come apart or fall out before your next appointment and the wound edges look as if they will re-open Surgical tape closures fall off before 7 days, and the wound edges look as if they will re-open Bleeding not controlled by direct pressure [id number] [employer]. [address] [place] [address]. All rights reserved. This information is not intended as a substitute for professional medical care. Always follow your healthcare professional's instructions. Additional Information VACCINATE! IT SAVES LIVES! Members of the community who have not yet received the COVID-19 vaccine and would like to receive it can visit one of [facility] vaccine clinics. There are many vaccine clinic locations within the [facility]. For locations and available times, please visit [email or web address].[place].go [email or web address] It is important to note that some COVID mobile vaccine clinics are held outdoors and may be canceled in rainy or stormy conditions. To learn more about pediatric vaccinations (ages 5-11), we invite you to visit the [facility] webpage. https://www.[email or web address].org/pag es/5382-Uusqr-Clsabndcspx-Frequent rv-Cobiu-Qphnogfej.html To learn more about the COVID-19 vaccine, we invite you to visit the CDC website for a list of frequently asked questions. https://www.cdc.gov/coronavirus/ncov/vaccines/faq.html [facility] Patient Portal Access Instructions: Stay connected with your healthcare team and access your personal medical information anytime with the [facility] Patient Portal. If you would like a full copy of your medical records please contact the [facility] Medical Records Department Friday through Friday between 8a.m. and 4:30p.m. Please follow the directions below to access the portal: 1.Access the email account you provided upon registration to the [facility].2.Look for an invitation email from [facility].3.Open the email and access the invitation link: Accept Invitation to [facility].Fill in the required luis to create your account. To access your account, visit [employer] or scan the [employer] code above. Click the blue button labeled Access Patient Portal and then log in with the username and password that you created in the steps above. You can then view a summary of results, a summary of your visits, and the ability to download your summaries to your computer or send the information securely to a physician. Remember that your healthcare information is confidential, so carefully consider who you will allow to register on the [facility] Patient Portal for access to your information. You can also access the [facility] Patient Portal on the [employer] kyleigh. Simply click on Health Records under Health Data and then click on the InsideMaps logo. HOW TO SAFELY DISPOSE OF PRESCRIPTION MEDICATIONS Please use one of the following methods to safely dispose of your unused medications. 1.Use a drug disposal kit: the drug disposal pouch allows you to safely discard your old and unused drugs. Ask your nurse to give you one when you are discharged.2.Visit a local take-back location: Many local pharmacies and police departments have programs that collect old and unwanted prescription drugs. Call your local pharmacy or go to http://bit.ly/9B3Zx7s to find one close to you.3.Make use of household items: Use cat litter or old coffee grounds to dispose medications if other options are not available. Mix your drugs with these household products, seal them in an airtight container and throw it into the garbage. Call [facility]: [phone] to be sure your drugs can be disposed of in this way. Some medicines may require a different approach.4.Never flush your medications down the toilet. IF YOU HAVE BEEN PRESCRIBED AN OPIOIDS FOR PAIN If you have been prescribed an opioid (such as hydrocodone, oxycodone or morphine), it is critical to understand the possible side effects and risks of opioid pain medications. Even when taken as directed, opioids can have several side effects including: Tolerance, meaning you might need to take more of a medication for the same pain relief. Nausea, vomiting and/or constipation. Sleepiness, dizziness, dry mouth, confusion, depression or itching. Physical dependence, meaning you have withdrawal symptoms when a medication is stopped ? this can develop within a few days. KNOW YOUR RESPONSIBILITIES It is important to know exactly how much and how often to take the opioid pain medications you are prescribed. Never take opioids in higher amounts or more often than prescribed. Do not combine opioids with alcohol or other drugs that cause drowsiness, such as benzodiazepines, also known as benzos, including diazepam and alprazolam, muscle relaxants or sleep aids. Never sell or share prescription opioids. This is illegal. Store opioids in a secure place and out of reach of others (including children, family, friends and visitors). The last page(s) of this document has been signed and retained as a CHART COPY Signatures Patient Education Materials [employer] Medication Leaflets My discharge plan and instructions have been reviewed and explained to me and IZAHRA CHAD K understand my current condition and have read and understand these discharge instructions. I have received a written copy of the plan/instructions. If I have questions, I am aware that I should contact my doctor. 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 TRANSPLANT NEPHROLOGY CONSULT : KIDNEY TRANSPLANT RECIPIENT EVALUATION SERVICE DATE: 02/15/2025 REASON FOR CONSULT/CHIEF COMPLAINT: FOR KIDNEY TRANSPLANT RECIPIENT EVALUATION. HPI: Mr. Sweeney is a 49 y.o. 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 He started hemodialysis after his second transplant failed in 2014. He was on PD afterwards but suffered peritonitis and technique failure so he was resumed on in center hemodialysis. He switched to home hemodialysis in 08/2024. Currently doing 5 sessions a week. EDW around 71 kg. His daughter helps with cannulation of his right AVF. He feels well. No recent illness. His cardiac disease has been stable. Denies AICD shock or syncope or passing out. Denies history of coronary artery disease requiring a stent or a bypass surgery. His COPD is mild; he only uses inhaler as needed. Denies hospitalization in the past year. Quit smoking in November 2024. BLOOD TYPE: O Functional status : Physically active > 4 METs Urine output : Anuric Potential Donor : His daughter? Last GFR /Creatinine: Lab Results Component Value Date CREATININE 13.53 (H) 12/08/2024 No results found for: GFRMALE, NONUHFIRE Hx of PRBC Transfusion Denies Recent Hospitalization/ED visit: No The patient is here for kidney transplant recipient evaluation. Mr. Sweeney has had multiple complications from end stage severe renal disease including anemia, secondary hyperparathyroidism, and osteodystrophy. The patient is here today for an evaluation for kidney transplantation to improve quality of life and decrease the risk of cardiovascular disease, coronary artery disease and stroke. The patient is doing well without complaints. Denied chest pain, shortness of breath, palpitation, dyspnea on exertion, dysuria, fever, nausea, vomiting, diarrhea and flu-liked symptoms. No swelling of the extremities. No recent hospitalization or ED visit. ROS: Review of 14 systems was performed system by system. See HPI. Otherwise, the symptoms were negative. PAST MEDICAL HISTORY: Please see HPI. Medical History[1] PAST SURGICAL HISTORY: Please see HPI. Surgical History[2] SOCIAL HISTORY: Please see our social work msw's note for details. Social History Socioeconomic History Marital status: Spouse name: Not on file Number of children: Not on file Years of education: Not on file Highest education level: Not on file Occupational History Not on file Tobacco Use Smoking status: Former Types: Cigarettes Smokeless tobacco: Not on file Tobacco comments: Using nicotine patches for the past 3 months to assist with quitting. Substance and Sexual Activity Alcohol use: Not Currently Drug use: Never Sexual activity: Not on file Other Topics Concern Not on file Social History Narrative Not on file Social Drivers of Health Financial Resource Strain: Low Risk (02/15/2025) Overall Financial Resource Strain (CARDIA) Difficulty of Paying Living Expenses: Not hard at all Food Insecurity: No Food Insecurity (09/02/2022) Received from [facility] Hunger Vital Sign Within the past 12 months, you worried that your food would run out before you got the money to buy more.: Never true Within the past 12 months, the food you bought just didn't last and you didn't have money to get more.: Never true Transportation Needs: No Transportation Needs (02/15/2025) PRAPARE - Transportation Lack of Transportation (Medical): No Lack of Transportation (Non-Medical): No Physical Activity: Sufficiently Active (08/26/2022) Received from [facility] Exercise Vital Sign On average, how many days per week do you engage in moderate to strenuous exercise (like a brisk walk)?: 7 days On average, how many minutes do you engage in exercise at this level?: 30 min Stress: Stress Concern Present (02/15/2025) [employer] [facility] [employer] - Occupational Stress Questionnaire Feeling of Stress: To some extent Social Connections: Moderately Isolated (08/26/2022) Received from [facility] Social Connection and Isolation Panel In a typical week, how many times do you talk on the phone with family, friends, or neighbors?: More than three times a week How often do you get together with friends or relatives?: More than three times a week How often do you attend muslim or advent services?: Never Do you belong to any clubs or organizations such as muslim groups, unions, fraternal or athletic groups, or school groups?: No How often do you attend meetings of the clubs or organizations you belong to?: Never Are you , , , , never , or living with a partner?: Intimate Partner Violence: Not At Risk (02/15/2025) Humiliation, Afraid, Rape, and Kick questionnaire Fear of Current or Ex-Partner: No Emotionally Abused: No Physically Abused: No Sexually Abused: No Housing Stability: Unknown (02/15/2025) Housing Stability Vital Sign Unable to Pay for Housing in the Last Year: No Number of Times Moved in the Last Year: Not on file Homeless in the Last Year: No FAMILY HISTORY: Family History[3] MEDICATION LIST: Current Outpatient Medications Medication Instructions albuterol 90 mcg/actuation inhaler INHALE 2 PUFFS EVERY 4 HOURS NEEDED FOR FOR WHEEZING aspirin 81 mg, oral, Daily atorvastatin (LIPITOR) 40 mg, oral, Daily carvedilol (COREG) 3.125 mg, oral, 2 times daily hydrALAZINE (APRESOLINE) 100 mg, oral, 3 times daily isosorbide mononitrate ER (IMDUR) 60 mg, oral, Daily nicotine (Nicoderm CQ) 21 mg/24 hr patch 1 patch, transdermal, Every 24 hours ALLERGY Allergies[4] PHYSICAL EXAM: Visit Vitals BP 163/80 Pulse 79 Temp 36.6 C (97.8 F) (Temporal) Ht 1.803 m (5' 11) Wt 75.7 kg (166 lb 12.8 oz) SpO2 98% BMI 23.26 kg/m Smoking Status Former BSA 1.95 m General Appearance - NAD, Good speech, oriented and alert HEENT - Supple. Not pale. No jaundice. CVS - RRR. Normal S1/S2. No murmur, click , rub or gallop. ICD pocket at left upper chest. Lungs- clear to auscultation bilaterally Abdomen - soft , not tender, no guarding, no rigidity. No hepatosplenomegaly. Normal bowel sounds. No masses and ascites. Musculoskeletal /Extremities - no edema. Full ROM. No joint tenderness. Neuro/Psych - appropriate mood and affect. Motor power V/V all extremities. CN I -XII were grossly intact. Skin - No visible rash Dialysis access : RUE AVF is clean, dry and intact. No signs of infection. LABS: Lab Results Component Value Date WBC 4.7 12/08/2024 HGB 7.7 (L) 12/08/2024 HCT 23.2 (L) 12/08/2024 PLT 191 12/08/2024 ALT 11 12/08/2024 AST 12 12/08/2024 NA 134 (L) 12/08/2024 K 5.4 (H) 12/08/2024 CL 93 (L) 12/08/2024 CREATININE 13.53 (H) 12/08/2024 BUN 55 (H) 12/08/2024 CO2 27 12/08/2024 PSA 0.86 08/18/2018 INR 1.1 08/18/2018 HGBA1C 4.8 11/21/2022 par EKG: Reviewed Echocardiogram: Echocardiogram [facility], [address] [place] [address] and TRANSTHORACIC ECHOCARDIOGRAM REPORT Patient Name: CARLITOS ZAHRA Reading Physician: [id number] Raman Green MD Study Date: 02/28/2021 Referring Physician: MARISEL TORREZ MRN/PID: [id number] PCP: Accession/Order#: [id number] Department Location: [facility] Non Invasive Date of : 1975 Fellow: Gender: M Nurse: Admit Date: Product Development Consultant: Concepción Valdez RDCS Admission Status: Outpatient Additional Staff: Height: 180.34 cm CC Report to: Weight: 72.57 kg Study Type: Echocardiogram BSA: 1.92 m2 Blood Pressure: 143 /83 mmHg Diagnosis/ICD: Z01.818-Encounter for other preprocedural examination Indication: Pre-Kidney Transplant Procedure/CPT: Echo Complete w Full Doppler-[id number] Patient History: Pertinent History: CHF, COPD and HTN. 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 Study Detail: The following Echo studies were performed: 2D, M-Mode, Doppler and color flow. PHYSICIAN INTERPRETATION: Left Ventricle: The left ventricular systolic function is normal, with an estimated ejection fraction of 55-60%. There are no regional wall motion abnormalities. The left ventricular cavity size is normal. There is mild concentric left ventricular hypertrophy. Spectral Doppler shows a normal pattern of left ventricular diastolic filling. Left Atrium: The left atrium is severely dilated. Right Ventricle: The right ventricle is normal in size. There is normal right ventricular global systolic function. A device is visualized in the right ventricle. Right Atrium: The right atrium is normal in size. There is a device visualized in the right atrium. Aortic Valve: The aortic valve is trileaflet. There is mild aortic valve cusp calcification. There is evidence of mild aortic valve stenosis. The peak aortic velocity was obtained from the right parasternal view. There is no evidence of aortic valve regurgitation. The peak instantaneous gradient of the aortic valve is 32.6 mmHg. The mean gradient of the aortic valve is 17.4 mmHg. Mitral Valve: The mitral valve is normal in structure. There is mild mitral valve regurgitation. Tricuspid Valve: The tricuspid valve is structurally normal. There is trace tricuspid regurgitation. The Doppler estimated RVSP is within normal limits at 28.3 mmHg. Pulmonic Valve: The pulmonic valve is structurally normal. There is physiologic pulmonic valve regurgitation. Pericardium: There is no pericardial effusion noted. Aorta: The aortic root is normal. Systemic Veins: The inferior vena cava appears to be of normal size. There is IVC inspiratory collapse greater than 50%. In comparison to the previous echocardiogram(s): CONCLUSIONS: 1. The left ventricular systolic function is normal with a 55-60% estimated ejection fraction. 2. The left atrium is severely dilated. 3. RVSP within normal limits. 4. Mild aortic valve stenosis. QUANTITATIVE DATA SUMMARY: 2D MEASUREMENTS: Normal Ranges: Ao Root d: 2.70 cm (2.0-3.7cm) LAs: 3.86 cm (2.7-4.0cm) IVSd: 1.10 cm (0.6-1.1cm) LVPWd: 1.39 cm (0.6-1.1cm) LVIDd: 5.44 cm (3.9-5.9cm) LVIDs: 3.83 cm LV Mass Index: 146.5 g/m2 LV % FS 29.6 % LA VOLUME: Normal Ranges: LA Vol A4C: 74.0 ml (22+/-6mL/m2) LA Vol A2C: 111.3 ml LA Vol BP: 92.2 ml LA Vol Index A4C: 38.6 ml/m2 LA Vol Index A2C: 58.0 ml/m2 LA Vol Index BP: 48.0 ml/m2 LA Area A4C: 23.6 cm2 LA Area A2C: 29.4 cm2 LA Major Ogilvie A4C: 6.4 cm LA Major Ogilvie A2C: 6.6 cm LA Volume Index: 48.0 ml/m2 LA Vol A4C: 67.4 ml LA Vol A2C: 104.2 ml RA VOLUME BY A/L METHOD: Normal Ranges: RA Vol A4C: 56.7 ml (8.3-19.5ml) RA Vol Index A4C: 29.6 ml/m2 RA Area A4C: 18.8 cm2 RA Major Ogilvie A4C: 5.3 cm AORTA MEASUREMENTS: Normal Ranges: Asc Ao, d: 2.90 cm (2.1-3.4cm) LV SYSTOLIC FUNCTION BY 2D PLANIMETRY (MOD): Normal Ranges: EF-A4C View: 54.7 % (>55%) EF-A2C View: 59.5 % EF-Biplane: 56.4 % LV DIASTOLIC FUNCTION: Normal Ranges: MV Peak E: 1.06 m/s (0.7-1.2 m/s) MV Peak A: 1.03 m/s (0.42-0.7 m/s) E/A Ratio: 1.03 (1.0-2.2) MV e' 0.08 m/s (>8.0) MV lateral e' 0.09 m/s MV medial e' 0.06 m/s MV A Dur: 140.82 msec E/e' Ratio: 14.16 (<8.0) MV DT: 207 msec (150-240 msec) MITRAL VALVE: Normal Ranges: MV DT: 207 msec (150-240msec) AORTIC VALVE: Normal Ranges: AoV Vmax: 2.85 m/s (<1.7m/s) AoV Peak P.6 mmHg (<20mmHg) AoV Mean P.4 mmHg (1.7-11.5mmHg) LVOT Max Vianey: 1.65 m/s (<1.1m/s) AoV VTI: 57.35 cm (18-25cm) LVOT VTI: 35.33 cm LVOT Diameter: 1.98 cm (1.8-2.4cm) AoV Area, VTI: 1.90 cm2 (2.5-5.5cm2) AoV Area,Vmax: 1.78 cm2 (2.5-4.5cm2) AoV Dimensionless Index: 0.62 RIGHT VENTRICLE: RV 1 3.8 cm RV 2 3.1 cm RV 3 9.6 cm TAPSE: 23.1 mm RV s' 0.14 m/s TRICUSPID VALVE/RVSP: Normal Ranges: Peak TR Velocity: 2.51 m/s RV Syst Pressure: 28.3 mmHg (< 30mmHg) IVC Diam: 1.90 cm PULMONIC VALVE: Normal Ranges: PV Max Vianey: 1.1 m/s (0.6-0.9m/s) PV Max P.9 mmHg [id number] Raman Green MD Electronically signed on 03/01/2021 at 9:19:20 AM PFT 04/02/2022 PRE-BRONCH POST-BRONCH Pred LLN ULN Actual %Pred Actual %Chng SPIROMETRY FVC (L) 5.21 4.08 6.34 1.55 29 1.65 6 FEV1 (L) 4.10 3.21 4.95 1.25 30 1.37 9 FEV1/FVC 0.79 0.68 0.88 0.81 102 0.83 IMPRESSION: Spirometry indicates very severe obstruction. There is no significant bronchodilator response. The TLC is reduced indicating restriction. The diffusing capacity is severely reduced. The diffusing capacity independent of alveolar volume (kCO), is normal. The presence of a reduced lung diffusion capacity - that normalizes when measured independent of alveolar volume (kCO) is consistent with a nonparenchymal disorder but does not rule out parenchymal or pulmonary vascular disorder. ASSESSMENT AND PLAN: After completion of taking history and physical examination, the patient seems to be a reasonable candidate to proceed with the rest of transplant evaluation. However, patient will need the following tests to determine the eligibility for kidney transplant per [facility]'s kidney transplant evaluation guideline : -Cardiology consult for cardiac clearance; repeat echo and stress test -Pulmonary function test and consider pulmonology consult if needed -CT A/P review per surgery; CT chest for lung cancer screening -Update cancer screening per age/sex - Will need to complete the rest of work up per protocol This patient has ESKD/advanced CKD which is a major risk for cardiovascular disease. It is necessary to have echocardiogram, stress test and cardiac testing per protocol to ensure safety of kidney transplantation. ===== The case will be presented at the selection committee at the [facility]. 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 The above recommendations were discussed with the patient at length. In addition, the following were also discussed: - Risks and benefits of transplantation, both short-term and long-term - Risk of primary graft non-function, DGF, SGF, rejection, primary disease recurrence, return to dialysis - Risks of immunosuppression including infections, CA, CV risk - Need for compliance with medications and medical care in general - We reviewed the necessity of HBV vaccination and other recommended vaccines before a kidney transplant, following the Centers for Disease Control and Prevention(CDC)'s guidelines [https://www.cdc.gov/vaccines/sche dules/downloads/adult/adult-combin ed-schedule.pdf] Currently, the patient has received the following vaccines: Immunization History Administered Date(s) Administered COVID-19, mRNA, LNP-S, PF, 30 mcg/0.3 mL dose 05/07/2021, 05/28/2021 Client Outlook COVID-19 vaccine, bivalent, age 12 years and older (30 mcg/0.3 mL) 11/21/2022 The patient expressed understanding of the above and wishes to proceed. I answered all of his questions. I urged the patient to look for living donors. - I have spent over 60 minutes with the patient, reviewing medical record, lab result , CXR result and other specialty's notes. More than 50% of the time was spent in counseling, explaining about the transplantation and answering the questions. I also reviewed the medical record, blood test results, imaging and previous studies which were obtained from the nephrologists. I also order the tests needed to complete the evaluation and I will review the results of those tests. Thank you for this consultation. Please feel free to contact me for questions. Tonya Bell MD Transplant Nephrology [1] Past Medical History: Diagnosis Date Personal history of other diseases of urinary system History of chronic kidney disease [2] Past Surgical History: Procedure Laterality Date OTHER SURGICAL HISTORY 08/18/2018 Kidney transplantation OTHER SURGICAL HISTORY 08/18/2018 Pacemaker insertion OTHER SURGICAL HISTORY 08/18/2018 Cardioverter defibrillator insertion [3] No family history on file. [4] Allergies Allergen Reactions Iodinated Contrast Media Fever Penicillin G Hives documented in this encounter [facility] Work Phone: 02-15-2025 History of Present illness Narrative Sebastian Sweeney is a 49 y.o. male who presents for kidney transplant evaluation visit. 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 Doing home HD 5x/week Denies CP, SOB No history of SD or CVA Review of Systems Constitutional: Negative for chills and fever. HENT: Negative. Negative for congestion. Eyes: Negative. Respiratory: Negative for cough and shortness of breath. Cardiovascular: Negative for chest pain. Gastrointestinal: Negative for abdominal distention, abdominal pain, constipation and diarrhea. Endocrine: Negative for cold intolerance and heat intolerance. Genitourinary: Negative for dysuria, frequency, hematuria and urgency. Musculoskeletal: Negative for arthralgias. Skin: Negative for color change. Allergic/Immunologic: Negative for environmental allergies. Neurological: Negative for dizziness, weakness and light-headedness. Hematological: Negative for adenopathy. Psychiatric/Behavioral: Negative for agitation, confusion and hallucinations. Objective Vitals: 02/15/25 1352 BP: 163/80 Pulse: 79 Temp: 36.6 C (97.8 F) SpO2: 98% Physical Exam Constitutional: Appearance: Normal appearance. HENT: Head: Normocephalic and atraumatic. Nose: Nose normal. Eyes: Pupils: Pupils are equal, round, and reactive to light. Cardiovascular: Rate and Rhythm: Normal rate. Pulmonary: Effort: Pulmonary effort is normal. No respiratory distress. Abdominal: General: There is no distension. Palpations: Abdomen is soft. There is no mass. Musculoskeletal: General: No swelling. Normal range of motion. Cervical back: Normal range of motion. Skin: General: Skin is warm and dry. Neurological: General: No focal deficit present. Mental Status: He is alert and oriented to person, place, and time. Psychiatric: Mood and Affect: Mood normal. Behavior: Behavior normal. Lab Review Blood Type: No results found for: [facility] Lab Results Component Value Date WBC 4.7 12/08/2024 HGB 7.7 (L) 12/08/2024 HCT 23.2 (L) 12/08/2024 MCV 83 12/08/2024 PLT 191 12/08/2024 Lab Results Component Value Date GLUCOSE 136 (H) 12/08/2024 CALCIUM 8.5 (L) 12/08/2024 NA 134 (L) 12/08/2024 K 5.4 (H) 12/08/2024 CO2 27 12/08/2024 CL 93 (L) 12/08/2024 BUN 55 (H) 12/08/2024 CREATININE 13.53 (H) 12/08/2024 Lab Results Component Value Date ALT 11 12/08/2024 AST 12 12/08/2024 ALKPHOS 62 12/08/2024 BILITOT 0.5 12/08/2024 Current Outpatient Medications: albuterol 90 mcg/actuation inhaler, INHALE 2 PUFFS EVERY 4 HOURS NEEDED FOR FOR WHEEZING, Disp: , Rfl: aspirin 81 mg EC tablet, Take 1 tablet (81 mg) by mouth once daily., Disp: , Rfl: atorvastatin (Lipitor) 40 mg tablet, Take 1 tablet (40 mg) by mouth once daily., Disp: , Rfl: carvedilol (Coreg) 3.125 mg tablet, Take 1 tablet (3.125 mg) by mouth 2 times a day., Disp: , Rfl: hydrALAZINE (Apresoline) 100 mg tablet, Take 1 tablet (100 mg) by mouth 3 times a day., Disp: , Rfl: isosorbide mononitrate ER (Imdur) 30 mg 24 hr tablet, Take 2 tablets (60 mg) by mouth once daily., Disp: , Rfl: nicotine (Nicoderm CQ) 21 mg/24 hr patch, Place 1 patch on the skin once every 24 hours., Disp: , Rfl: Echo Stress CAC Kidney Transplant Education and Discussion I had a discussion with this patient regarding 1 year graft and patient survival statistics following renal transplantation for both living and donor allograft recipients. This data included [facility] data compared to National data readily available for review on https://www.SRTR.org. The patient also had attended the kidney transplant education class provided by the transplant institute. The difference between allograft function was discussed comparing living donor, KDPI 0-85%, and >85% kidneys. Further discussion included: -The transplant selection committee process. -The need for lifelong immunosuppressive therapy, and the side effects of these medications including the risk of infections, cancer, and lymphoma. -The wait list time approximately is 5 years or more for donor transplants and the statistical superiority of a living donor. - Using identified donors with risk criteria for transmission of infection -Potential transmission of infectious disease from any donors, as well as living donors. -The possibility of transmission of tumors and infections via the transplanted organ. -The inability to completely test for all potential harmful tumors or infectious agents. -The possibility of listing at multiple locations. Surgical complications including need for reoperation(s) including but not limited to: -Bleeding. -Repair of leaks. -Control of infection. -Possible kidney transplant removal. The medical complications including but not limited to: -. -Cardiac. -Pulmonary. -Infectious. -Neurologic. -Other Complications. We also discussed how the kidney transplant could function: -Non-function and possible kidney transplant removal within the first 3 to 6 months. -Delayed graft function (dialysis needed after transplant). -The potential of recurrence of kidney disease leading to kidney transplant graft loss. Assessment/Plan Diagnoses: 1. ESRD (end stage renal disease) (Multi) 2. Kidney replaced by transplant ([facility]) 3. Pre-transplant evaluation for kidney transplant Carlitos Sweeney is a still a reasonable candidate for kidney transplant Previous transplant x 2 History of congential solitary kidneys On HD since 2014, home HD 5x/week Has bilateral Parrish incision, will be midline approach Will obtain Echo, CAC, Stress and cardiology consult He has a pacemaker/AICD Need to obtain CT for anatomy evaluation documented in this encounter [facility] Work Phone: 02-04-2025 Note . MICRO - Microbiology PROCEDURE: Blood Culture (bacterial) [*1] SOURCE: Blood BODY SITE: COLLECTED DATE/TIME: 01/29/2025 19:33 EDT RECEIVED DATE/TIME: 01/30/2025 13:54 EDT START DATE/TIME: 01/30/2025 13:54 EDT FREE TEXT SOURCE: FINAL REPORTS Final Report [] Verified Date/Time/Personnel: 02/04/2025 13:59 EDT Blood Culture: No Growth at 5 days. PRELIMINARY REPORTS Preliminary Report [] Verified Date/Time/Personnel: 01/30/2025 14:59 EDT Culture has been received in lab and is no growth to date. Routine cultures are held for 5 days. Performing Locations *1: This test was performed at: [address], [address] [place] [address] 02-04-2025 Note . MICRO - Microbiology PROCEDURE: Blood Culture (bacterial) [*1] SOURCE: Blood BODY SITE: COLLECTED DATE/TIME: 01/29/2025 19:33 EDT RECEIVED DATE/TIME: 01/30/2025 13:54 EDT START DATE/TIME: 01/30/2025 13:54 EDT FREE TEXT SOURCE: FINAL REPORTS Final Report [] Verified Date/Time/Personnel: 02/04/2025 13:59 EDT Blood Culture: No Growth at 5 days. PRELIMINARY REPORTS Preliminary Report [] Verified Date/Time/Personnel: 01/30/2025 14:59 EDT Culture has been received in lab and is no growth to date. Routine cultures are held for 5 days. Performing Locations *1: This test was performed at: [address], [address] [place] [address] 02-04-2025 Note . MICRO - Microbiology PROCEDURE: Blood Culture (bacterial) [*1] SOURCE: Blood BODY SITE: COLLECTED DATE/TIME: 01/30/2025 02:52 EDT RECEIVED DATE/TIME: 01/30/2025 03:00 EDT START DATE/TIME: 01/30/2025 03:00 EDT FREE TEXT SOURCE: FINAL REPORTS Final Report [] Verified Date/Time/Personnel: 02/04/2025 03:59 EDT Blood Culture: No Growth at 5 days. PRELIMINARY REPORTS Preliminary Report [] Verified Date/Time/Personnel: 01/30/2025 03:59 EDT Culture has been received in lab and is no growth to date. Routine cultures are held for 5 days. Performing Locations *1: This test was performed at: [facility], [address] [place] [address], [facility] , [facility] 01-31-2025 Note Date of Service 01/31/2025 Reason for Consultation Recent ICD generator change on 01/26, concerns for pocket infection versus hematoma Referring Physician Dr. Joseph History of Present Illness Patient is a 49-year-old male with medical history significant for ESRD on IHD (follows Dr. Wiley), nonischemic cardiomyopathy EF 30% 2022 improved to 50% September 2024, mild nonobstructive CAD 2022, s/p ICD 2014, mild (V-max 2.4, YARI 1.6, DVI 0.5), moderate MR, mild PHTN, mild, hypertension, current tobacco use and hyperlipidemia. He had his ICD generator change on 01/26/2025 (performed by Sarthak Obregon). Postprocedurally, he had mild pain however it increased and became more tender along with worsening swelling around the device. He noticed yellowish/clear drainage from the lateral side of the dressing on 01/29. Denies any fever or chills. He is on hemodialysis (Friday, Friday, Friday) however because of his procedure on Friday he got his dialysis on and Friday. He had CT chest with contrast at [facility] showing large collection of fluid left anterior chest wall surrounding pacemaker with concerns for abscess vs hematoma. EP was consulted for evaluation. Review of Systems Negative except as per HPI Physical Exam Vitals and Measurements T: 36.1 C (Skin) TMIN: 36.0 C (Axillary) TMAX: 36.6 C (Oral) HR: 75 (Monitored) RR: 16 BP: 184/100 SpO2: 98% WT: 77.8 kg Weight Dosing Weight: 77.8 kg (01/31/25) Dosing Weight: 73.3 kg (01/30/25) General: AAOX3, NAD HEENT: Anicteric sclera, MMM Neck: Trachea midline, no JVD appreciated CVS: RRR, normal S1/S2, faint systolic murmur Lung/chest: No increased work of breathing, area of induration and swelling around recent ICD incision pocket. Minimal ecchymosis noted around the area. No redness, warmth, significant tenderness to palpation. Abd: Soft, NT/ND Extrem: Fistula noted on the right upper extremity Skin: Warm, Intact Neuro: AAOX3, spontaneous movement of all extremities Psych: Appropriate mood & affect Lab Results 01/31 05:36 WBC: 6.6 Hgb: 7.0 L Hct: 21.1 L Platelet: 187 Neutrophil %: 74.8 Glucose Level: 96 Glucose Level: 96 Sodium Level: 136 Sodium Level: 136 Potassium Level: 4.7 Potassium Level: 4.7 BUN: 75.0 H BUN: 75.0 H Creatinine Lvl (s): 14.74 H Creatinine Lvl (s): 14.74 H 01/30 06:39 WBC: 3.3 L Hgb: 7.4 L Hct: 22.6 L Platelet: 172 Neutrophil %: 89.6 H Glucose Level: 197 H Sodium Level: 135 L Potassium Level: 4.8 BUN: 60.0 H Creatinine Lvl (s): 12.75 H Imaging Results and Diagnostics CT Thorax 01/30 IMPRESSION: 1. Large collection in the left anterior chest wall surrounds the pacemaker and contains locules of air, concerning for an abscess. 2. Slight interval improvement of right lower and middle lobe airspace disease. 3. Probably resolved edema with trace right effusion. Assessment/Plan ICD pocket hematoma in the setting of recent ICD generator change 01/26/2025, very low concerns for pocket infection Hx of dual-chamber ICD 2015 (Medtronic) follows Dr. Rodriguez - left upper chest evaluated. No redness, purulent discharge, fevers, chills, pruritus, skin breakdown noted. Area around incision does appear somewhat swollen with associated fluid collection, likely representing hematoma. Air around fluid collection likely related to the recensy of the procedure. Minimal-mild tenderness with palpation. - At this time, would recommend continue monitoring closely. No immediate indications for device removal. However, it is worth noting that hematoma does increase risk of developing an infection. Nonischemic cardiomyopathy with improved EF 50% (09/2024, previously 30%), not in acute exacerbation ESRD on iHD (M/W/F) follows Dr. Serna, stable Nonobstructive CAD per cath 2022 Mild MS (V-max 2.4, YARI 1.6, LVOT VTI 0.5), Moderate MR; stable Hypertension Current tobacco use Hyperlipidemia Problem List/Past Medical History Ongoing Abdominal pain Acute hypoxic respiratory failure AICD (automatic cardioverter/defibrillator) present Anemia Ankle injury Anxiety Assistance needed with transportation BMI 26.0-26.9,adult CAD in [place] artery Cardiomyopathy Chest pain Chronic renal failure Cigarette smoker COPD (chronic obstructive pulmonary disease) Coronary artery calcification, severe on CT 2024 Depression STRAUSS (dyspnea on exertion) End stage renal disease Glasses Headache HFrEF (heart failure with reduced ejection fraction) History of fall , about 10 feet into gravel History of MRSA infection Hx of hyperparathyroidism Hypertension Hypertensive urgency Hypokinesis on echo 2022 Impacted cerumen of right ear Left serous otitis media Low back pain with left-sided sciatica Malrotation colon Medically noncompliant Migraine Mitral regurgitation Need for isolation Pressure ulcer, stage 1 SOBOE (shortness of breath on exertion) Trigger finger, right middle finger Vascular dialysis catheter in place Weakness Wrist sign 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 Procedure/Surgical History Defibrillator: 01/24/15 Peritoneal procedure Kidney transplant Parathyroid Dialysis catheter Nasal septoplasty Cholecystectomy Parathyroidectomy Cholecystectomy Medications Inpatient aspirin 81 mg oral delayed release tablet, 81 mg= 1 tab(s), Oral, Daily atorvastatin, 40 mg= 1 tab(s), Oral, qDay carvedilol 6.25 mg oral tablet, 6.25 mg= 1 tab(s), Oral, BID cefTAZidime Dextrose 50% IV Push, 25 gram(s)= 50 mL, IV Push, AsDirected, PRN DuoNeb, 3 mL, Inhalation, q4hRT, PRN Flagyl, 500 mg= 1 tab(s), Oral, BID heparin, 5000 unit(s)= 1 mL, Subcutaneous, q8h hydrALAZINE, 25 mg= 1 tab(s), Oral, TID isosorbide mononitrate 30 mg oral tablet, extended release, 60 mg= 2 tab(s), Oral, qDayAC magnesium sulfate for IV bolus, 2 gram(s)= 50 mL, IV Piggyback, AsDirected, PRN magnesium sulfate for IV bolus, 4 gram(s)= 100 mL, IV Piggyback, AsDirected, PRN magnesium sulfate for IV bolus melatonin, 6 mg= 2 tab(s), Oral, qHS, PRN Norman 325- 5 mg oral tablet, 1 tab(s), Oral, q4h, PRN Norman 325-10 mg oral tablet, 1 tab(s), Oral, q4h, PRN potassium chloride, 20 mEq= 1 tab(s), Oral, AsDirected, PRN potassium chloride, 40 mEq= 2 tab(s), Oral, AsDirected, PRN potassium chloride, 40 mEq= 2 tab(s), Oral, AsDirected, PRN potassium chloride bolus, 20 mEq= 100 mL, IV Piggyback, AsDirected, PRN Renvela 800 mg oral tablet, 800 mg= 1 tab(s), Oral, TIDM Tylenol, 650 mg= 2 tab(s), Oral, q4h, PRN vancomycin, 1 EA, Miscellaneous, Daily Zofran, 4 mg= 2 mL, IV Push, q4h, PRN Home acetaminophen 325 mg oral capsule, 650 mg= 2 cap(s), Oral, q4h, PRN albuterol MDI (90 mcg/inh) CFC free inhalation aerosol, 1 puff(s), Inhalation, q4h, PRN, 3 refills aspirin 81 mg oral delayed release tablet, 81 mg= 1 tab(s), Oral, Daily, 3 refills atorvastatin 40 mg oral tablet, 40 mg= 1 tab(s), Oral, qDay, 3 refills calcium acetate 667 mg oral capsule, 2668 mg= 4 cap(s), Oral, TIDM carvedilol 6.25 mg oral tablet, 6.25 mg= 1 tab(s), Oral, BID, 3 refills hydrALAZINE 25 mg oral tablet, 25 mg= 1 tab(s), Oral, TID, 3 refills isosorbide mononitrate 30 mg oral tablet, extended release, 60 mg= 2 tab(s), Oral, qDayAC, 3 refills Renvela 800 mg oral tablet (NF), 800 mg= 1 tab(s), Oral, TIDM Symbicort 80 mcg-4.5 mcg/inh Inhaler, 2 puff(s), Inhalation, BID, 2 refills Allergies penicillin (Moderate) Anaphylaxis, rash Contrast dye Skin rash, Fever fentaNYL Agitation propranolol Agitation Social History Smoking Status - 11/25/2017 Current every day smoker Alcohol - Denies Alcohol Use, 01/16/2017 Use: Never., 12/07/2018 Home/Environment Living situation: Home/Independent. Domestic Concerns: Denies. Current Home Treatments Hemodialysis., 01/26/2025 Nutrition/Health Type of diet: Regular. Caffeine intake amount: 3-4 servings/day. Appetite Fair. Eating Difficulties None., 01/26/2025 Substance Abuse - Denies Substance Abuse, 01/16/2017 Use: Never., 12/07/2018 Tobacco Nicotine Use: Former smoker, quit more than 30 days ago., 01/14/2025 Family History Diabetes mellitus: Father. Heart disease: Father. Hypertension: Father. Health Status Family Member(s) Immunizations pneumococcal 13-valent conjugate vaccine: 0 unknown unit (10/23/16) pneumococcal 23-valent vaccine(Pneumovax: 0 unknown unit (06/03/15) pneumococcal 23-valent vaccine(Pneumovax: 0.5 mL (02/24/14) pneumococcal 23-valent vaccine(Pneumovax: 0 unknown unit (06/23/07) SARS-CoV-2 mRNA (tozinameran) vaccine: 0.3 unknown unit (05/28/21) SARS-CoV-2 mRNA (tozinameran) vaccine: 0.3 unknown unit (05/07/21) tetanus/diphtheria/pertussMUL.ORD! [id number]: 0.5 mL (10/23/20) tetanus/diphtheria/pertussMUL.ORD! [id number]: 0.5 mL (11/19/13) Digitally Signed by LEIGHA BOWEN MD on 01/31/2025 04:[address] [facility] 01-31-2025 Note Exam Date Time Procedure Performing Provider Status 01/31/25 7:10 PM Echocardiogram, Adult - CV DOMINGA FREEMAN MD; Auth (Verified) [id number] Cardiology Progress note Date of Service 01/31/2025 Chief Complaint Surgical Site Drainage Subjective Patient is a 49-year-old male with medical history significant for ESRD on IHD (follows Dr. Wiley), nonischemic cardiomyopathy EF 30% 2022 improved to 50% September 2024, mild nonobstructive CAD 2022, s/p ICD 2014, mild (V-max 2.4, YARI 1.6, DVI 0.5), moderate MR, mild PHTN, mild, hypertension, current tobacco use and hyperlipidemia. He had his ICD generator change on 01/26/2025 (performedby Sarthak Obregon). Follows Dr. [place] Patient stated he underwent ICD generator change on 01/26/2025,postprocedure he had mild pain however it increased and became more tender along with worsening swelling around the device. He noticed yellowish drainage from the lateral side of the dressing yesterday. Denies any fever or chills. He is on hemodialysis (Friday, Friday, Friday) however because ofhis procedure on Friday he got his dialysis on and Friday. He had CT chest with contrast at [facility] showing large collection of fluid left anterior chest wall surrounding pacemaker with locules of air with concerns for abscess formation. Concern for right lower and middle lobe airspace disease. Trace effusion on the right. Noted to have acute on chronic anemia with hemoglobin 6.7 (B/L Hgb 7-8), received transfusion at [facility]. CRP 3.1. HS troponin 40 (similar to previous level). EKG reviewed showing sinus rhythm at a rate of 87 bpm with left axis deviation with incomplete LBBB pattern. Last 24 Hours: Patient had dialysis performed today around 1200H. Afterwards he said that he started having left breast swelling in the region of his ICD placement that extended up to his left clavicle. Patient states that it is tender to the touch. Other than this the patient is not experiencing any fever, chills, nausea, vomiting, diarrhea, shortness of breath, abdominal pain, or lightheadedness. Objective Vitals and Measurements T: 36.5 C (Oral) TMIN: 36.0 C (Axillary) TMAX: 36.7 C (Oral) HR: 76 (Monitored) RR: 20 BP: 166/81 SpO2: 98% WT: 76.7 kg Intake and Output 7AM Yesterday to 7AM Today Intake and Output (Last 24 hours) Intake Oral Intake 240.00 Output Urine Voided 0.00 Hemodialysis 1500.00 Total Summary Total Intake 240.00 Total Output 1500.00 Fluid Balance -1260.00 Physical Exam General: Alert, in no acute discomfort at rest. Skin: Surgical site of ICD placement is not actively oozing or bleeding. Mild edema is present overthe left breast, underneath the ICD, that is not fluctuant, warm to the touch, or has any overlyingerythematous skin changes. Head: Normocephalic, atraumatic. Neck: No JVD, or tracheal deviation. Supple, nontender. Eyes: PEERL. Normal conjunctiva. EOMs intact ENT: Oral mucous membranes moist. Cardiovascular: Regular rate and rhythm. No murmurs, rubs, gallops appreciated. Palpable radial pulses bilaterally. Respiratory: Lungs are clear without any wheezes, rhonchi, rales. Abdomen: Abdomen soft, nontender. No guarding. No rebound. No masses or rigidity. Back: No CVA tenderness. Musculoskeletal: No edema or bony deformity. Palpable DP/PT pulses bilaterally. Neurologic: Awake alert and oriented. Normal speech. Psychiatric: Cooperative. Appropriate mood and affect. Weight Dosing Weight: 76.7 kg (01/31/25) Dosing Weight: 77.8 kg (01/31/25) Medications Medications (25) Active Scheduled: (11) aspirin 81 mg EC 81 mg 1 tab(s), Oral, Daily atorvastatin 40 mg tablet 40 mg 1 tab(s), Oral, qDay carvedilol 6.25 mg tablet 6.25 mg 1 tab(s), Oral, BID ceftazidime 1 gram(s), IV Piggyback, q24h heparin 5,000 units/mL (1 mL) vial 5,000 unit(s) 1 mL, Subcutaneous, q8h hydralazine 25 mg Tablet 25 mg 1 tab(s), Oral, TID isosorbide mononitrate 30 mg ER tablet 60 mg 2 tab(s), Oral, qDayAC metronidazole 500 mg Tablet 500 mg 1 tab(s), Oral, BID sevelamer carbonate 800 mg tablet 800 mg 1 tab(s), Oral, TIDM VANCOMYCIN -- pharmacy re-dosing by random level 1 EA, Miscellaneous, Daily vancomycin PMX 500 mg 100 mL, IV Piggyback, Mon/Fri/Fri Continuous: (0) PRN: (14) acetaminophen 325 mg Tablet 650 mg 2 tab(s), Oral, q4h acetaminophen-HYDROcodone 325-10 mg tablet 1 tab(s), Oral, q4h acetaminophen-HYDROcodone 325-5 mg tablet 1 tab(s), Oral, q4h albuterol - ipratropium 2.5 mg-0.5 mg/3 mL Inhal Elizabeth UD 3 mL, Inhalation, q4hRT dextrose 50% Solution Disp syringe 50 mL 25 gram(s) 50 mL, IV Push, AsDirected magnesium sulfate 4 gram(s)/100mL PMX 4 g 100 mL, IV Piggyback, AsDirected magnesium sulfate 50% (500mg/mL) 6 g 12 mL, IV Piggyback, AsDirected magnesium sulfate PMX 2 g 50 mL, IV Piggyback, AsDirected melatonin 3 mg tablet 6 mg 2 tab(s), Oral, qHS ondansetron 2 mg/ 1 mL 2 mL INJ 4 mg 2 mL, IV Push, q4h potassium chloride (PMX) 20 mEq/100 mL 20 mEq 100 mL, IV Piggyback, AsDirected potassium chloride 20 mEq ER tablet 20 mEq 1 tab(s), Oral, AsDirected potassium chloride 20 mEq ER tablet 40 mEq 2 tab(s), Oral, AsDirected potassium chloride 20 mEq ER tablet 40 mEq 2 tab(s), Oral, AsDirected Lab Results 01/31 05:36 WBC: 6.6 Hgb: 7.0 L Hct: 21.1 L Platelet: 187 Neutrophil %: 74.8 Glucose Level: 96 Glucose Level: 96 Sodium Level: 136 Sodium Level: 136 Potassium Level: 4.7 Potassium Level: 4.7 BUN: 75.0 H BUN: 75.0 H Creatinine Lvl (s): 14.74 H Creatinine Lvl (s): 14.74 H 01/30 06:39 WBC: 3.3 L Hgb: 7.4 L Hct: 22.6 L Platelet: 172 Neutrophil %: 89.6 H Glucose Level: 197 H Sodium Level: 135 L Potassium Level: 4.8 BUN: 60.0 H Creatinine Lvl (s): 12.75 H EKG No qualifying data available. Assessment/Plan ICD pocket hematoma versus infection Acute on chronic anemia (B/L 7-8) Recent ICD generator change 01/26/2025 S/p dual-chamber ICD 2014 (Medtronic) follows Dr. Rodriguez Nonischemic cardiomyopathy with improved EF 50%, not in decompensation Nonobstructive CAD per cath 2022 ESRD on iHD (M/W/F) follows Dr. Serna Mild MS (V-max 2.4, YARI 1.6, LVOT VTI 0.5) Moderate MR Hypertension Current tobacco use Hyperlipidemia ICD pocket hematoma versus infection Recent ICD generator change 01/26/2025 Due to concern that there was infection of the ICD placement, ID and EP was consulted. ID recommended continuing Ceftazidime, Flagyl, and vancomycin. EP saw the patient today after the patient reported swelling. EP reported to us that did not believe the area is infected, but rather hematoma from the surgery. They believe that they air/swelling is from the procedure, not infectious causing organisms. To rule out further infective endocarditis a TTE will be ordered. 3 sets of blood cultures havebeen sent, 1 on 01/29/2025 and 2 on 01/30/2025; all have been negative so far. Will continue to monitor the cultures and manage accordingly. If TTE is negative and patient continues showing no signs of s ystemic infection then I believe the patient will be discharged tomorrow, 02/01/2025. Acute on chronic anemia (B/L 7-8) Hemoglobin was recorded at 7.0 this morning. Will continue monitoring labs tomorrow and if stable will have no further tension at this time. Digitally Signed by ANNAMARIE QUINTANILLA on 01/31/2025 04:[address] [facility] [id number] Cardiology Progress note Date of Service 01/31/2025 Chief Complaint Surgical Site Drainage Subjective Patient is a 49-year-old male with medical history significant for ESRD on IHD (follows Dr. Wiley), nonischemic cardiomyopathy EF 30% 2022 improved to 50% September 2024, mild nonobstructive CAD 2022, s/p ICD 2014, mild (V-max 2.4, YARI 1.6, DVI 0.5), moderate MR, mild PHTN, mild, hypertension, current tobacco use and hyperlipidemia. He had his ICD generator change on 01/26/2025 (april Obregon). Follows Dr. [place] Patient stated he underwent ICD generator change on 01/26/2025,postprocedure he had mild pain however it increased and became more tender along with worsening swelling around the device. He noticed yellowish drainage from the lateral side of the dressing yesterday. Denies any fever or chills. He is on hemodialysis (Friday, Friday, Friday) however because ofhis procedure on Friday he got his dialysis on and Friday. He had CT chest with contrast at [facility] showing large collection of fluid left anterior chest wall surrounding pacemaker with locules of air with concerns for abscess formation. Concern for right lower and middle lobe airspace disease. Trace effusion on the right. Noted to have acute on chronic anemia with hemoglobin 6.7 (B/L Hgb 7-8), received transfusion at [facility]. CRP 3.1. HS troponin 40 (similar to previous level). EKG reviewed showing sinus rhythm at a rate of 87 bpm with left axis deviation with incomplete LBBB pattern. Last 24 Hours: Patient had dialysis performed today around 1200H. Afterwards he said that he started having left breast swelling in the region of his ICD placement that extended up to his left clavicle. Patient states that it is tender to the touch. Other than this the patient is not experiencing any fever, chills, nausea, vomiting, diarrhea, shortness of breath, abdominal pain, or lightheadedness. Objective Vitals and Measurements T: 36.5 C (Oral) TMIN: 36.0 C (Axillary) TMAX: 36.7 C (Oral) HR: 76 (Monitored) RR: 20 BP: 166/81 SpO2: 98% WT: 76.7 kg Intake and Output 7AM Yesterday to 7AM Today Intake and Output (Last 24 hours) Intake Oral Intake 240.00 Output Urine Voided 0.00 Hemodialysis 1500.00 Total Summary Total Intake 240.00 Total Output 1500.00 Fluid Balance -1260.00 Physical Exam General: Alert, in no acute discomfort at rest. Skin: Surgical site of ICD placement is not actively oozing or bleeding. Mild edema is present overthe left breast, underneath the ICD, that is not fluctuant, warm to the touch, or has any overlyingerythematous skin changes. Head: Normocephalic, atraumatic. Neck: No JVD, or tracheal deviation. Supple, nontender. Eyes: PEERL. Normal conjunctiva. EOMs intact ENT: Oral mucous membranes moist. Cardiovascular: Regular rate and rhythm. No murmurs, rubs, gallops appreciated. Palpable radial pulses bilaterally. Respiratory: Lungs are clear without any wheezes, rhonchi, rales. Abdomen: Abdomen soft, nontender. No guarding. No rebound. No masses or rigidity. Back: No CVA tenderness. Musculoskeletal: No edema or bony deformity. Palpable DP/PT pulses bilaterally. Neurologic: Awake alert and oriented. Normal speech. Psychiatric: Cooperative. Appropriate mood and affect. Weight Dosing Weight: 76.7 kg (01/31/25) Dosing Weight: 77.8 kg (01/31/25) Medications Medications (25) Active Scheduled: (11) aspirin 81 mg EC 81 mg 1 tab(s), Oral, Daily atorvastatin 40 mg tablet 40 mg 1 tab(s), Oral, qDay carvedilol 6.25 mg tablet 6.25 mg 1 tab(s), Oral, BID ceftazidime 1 gram(s), IV Piggyback, q24h heparin 5,000 units/mL (1 mL) vial 5,000 unit(s) 1 mL, Subcutaneous, q8h hydralazine 25 mg Tablet 25 mg 1 tab(s), Oral, TID isosorbide mononitrate 30 mg ER tablet 60 mg 2 tab(s), Oral, qDayAC metronidazole 500 mg Tablet 500 mg 1 tab(s), Oral, BID sevelamer carbonate 800 mg tablet 800 mg 1 tab(s), Oral, TIDM VANCOMYCIN -- pharmacy re-dosing by random level 1 EA, Miscellaneous, Daily vancomycin PMX 500 mg 100 mL, IV Piggyback, Mon/Wed/Fri Continuous: (0) PRN: (14) acetaminophen 325 mg Tablet 650 mg 2 tab(s), Oral, q4h acetaminophen-HYDROcodone 325-10 mg tablet 1 tab(s), Oral, q4h acetaminophen-HYDROcodone 325-5 mg tablet 1 tab(s), Oral, q4h albuterol - ipratropium 2.5 mg-0.5 mg/3 mL Inhal Elizabeth UD 3 mL, Inhalation, q4hRT dextrose 50% Solution Disp syringe 50 mL 25 gram(s) 50 mL, IV Push, AsDirected magnesium sulfate 4 gram(s)/100mL PMX 4 g 100 mL, IV Piggyback, AsDirected magnesium sulfate 50% (500mg/mL) 6 g 12 mL, IV Piggyback, AsDirected magnesium sulfate PMX 2 g 50 mL, IV Piggyback, AsDirected melatonin 3 mg tablet 6 mg 2 tab(s), Oral, qHS ondansetron 2 mg/ 1 mL 2 mL INJ 4 mg 2 mL, IV Push, q4h potassium chloride (PMX) 20 mEq/100 mL 20 mEq 100 mL, IV Piggyback, AsDirected potassium chloride 20 mEq ER tablet 20 mEq 1 tab(s), Oral, AsDirected potassium chloride 20 mEq ER tablet 40 mEq 2 tab(s), Oral, AsDirected potassium chloride 20 mEq ER tablet 40 mEq 2 tab(s), Oral, AsDirected Lab Results 01/31 05:36 WBC: 6.6 Hgb: 7.0 L Hct: 21.1 L Platelet: 187 Neutrophil %: 74.8 Glucose Level: 96 Glucose Level: 96 Sodium Level: 136 Sodium Level: 136 Potassium Level: 4.7 Potassium Level: 4.7 BUN: 75.0 H BUN: 75.0 H Creatinine Lvl (s): 14.74 H Creatinine Lvl (s): 14.74 H 01/30 06:39 WBC: 3.3 L Hgb: 7.4 L Hct: 22.6 L Platelet: 172 Neutrophil %: 89.6 H Glucose Level: 197 H Sodium Level: 135 L Potassium Level: 4.8 BUN: 60.0 H Creatinine Lvl (s): 12.75 H EKG No qualifying data available. Assessment/Plan ICD pocket hematoma versus infection Acute on chronic anemia (B/L 7-8) Recent ICD generator change 01/26/2025 S/p dual-chamber ICD 2014 (Medtronic) follows Dr. Rodriguez Nonischemic cardiomyopathy with improved EF 50%, not in decompensation Nonobstructive CAD per cath 2022 ESRD on iHD (M/W/F) follows Dr. Serna Mild MS (V-max 2.4, YARI 1.6, LVOT VTI 0.5) Moderate MR Hypertension Current tobacco use Hyperlipidemia ICD pocket hematoma versus infection Recent ICD generator change 01/26/2025 Due to concern that there was infection of the ICD placement, ID and EP was consulted. ID recommended continuing Ceftazidime, Flagyl, and vancomycin. EP saw the patient today after the patient reported swelling. EP reported to us that did not believe the area is infected, but rather hematoma from the surgery. They believe that they air/swelling is from the procedure, not infectious causing organisms. To rule out further infective endocarditis a TTE will be ordered. 3 sets of blood cultures have been sent, 1 on 01/29/2025 and 2 on 01/30/2025; all have been negative so far. Will continue to monitor the cultures and manage accordingly. If TTE is negative and patient continues showing no signs ofsystemic infection then I believe the patient will be discharged tomorrow, 02/01/2025. Acute on chronic anemia (B/L 7-8) Hemoglobin was recorded at 7.0 this morning. Will continue monitoring labs tomorrow and if stable will have no further tension at this time. Digitally Signed by ANNAMARIE QUINTANILLA on 01/31/2025 04:[address] [facility] [id number] Note Date of Service 01/31/2025 Reason for Consultation Recent ICD generator change on 01/26, concerns for pocket infection versus hematoma Referring Physician Dr. Joseph History of Present Illness Patient is a 49-year-old male with medical history significant for ESRD on IHD (follows Dr. Wiley), nonischemic cardiomyopathy EF 30% 2022 improved to 50% September 2024, mild nonobstructive CAD 2022, s/p ICD 2014, mild (V-max 2.4, YARI 1.6, DVI 0.5), moderate MR, mild PHTN, mild, hypertension, current tobacco use and hyperlipidemia. He had his ICD generator change on 01/26/2025 (performedkamini Obregon). Postprocedurally, he had mild pain however it increased and became more tender along with worsening swelling around the device. He noticed yellowish/clear drainage from the lateral side of the dressing on 01/29. Denies any fever or chills. He is on hemodialysis (Friday, Friday, Friday) however because of his procedure on Friday he got his dialysis on and Friday. He had CT chest with contrast at [facility] showing large collection of fluid left anterior chest wall surrounding pacemaker with concerns for abscess vs hematoma. EP was consulted for evaluation. Review of Systems Negative except as per HPI Physical Exam Vitals and Measurements T: 36.1 C (Skin) TMIN: 36.0 C (Axillary) TMAX: 36.6 C (Oral) HR: 75 (Monitored) RR: 16 BP: 184/100 SpO2: 98% WT: 77.8 kg Weight Dosing Weight: 77.8 kg (01/31/25) Dosing Weight: 73.3 kg (01/30/25) General: AAOX3, NAD HEENT: Anicteric sclera, MMM Neck: Trachea midline, no JVD appreciated CVS: RRR, normal S1/S2, faint systolic murmur Lung/chest: No increased work of breathing, area of induration and swelling around recent ICD incision pocket. Minimal ecchymosis noted around the area. No redness, warmth, significant tenderness to palpation. Abd: Soft, NT/ND Extrem: Fistula noted on the right upper extremity Skin: Warm, Intact Neuro: AAOX3, spontaneous movement of all extremities Psych: Appropriate mood & affect Lab Results 01/31 05:36 WBC: 6.6 Hgb: 7.0 L Hct: 21.1 L Platelet: 187 Neutrophil %: 74.8 Glucose Level: 96 Glucose Level: 96 Sodium Level: 136 Sodium Level: 136 Potassium Level: 4.7 Potassium Level: 4.7 BUN: 75.0 H BUN: 75.0 H Creatinine Lvl (s): 14.74 H Creatinine Lvl (s): 14.74 H 01/30 06:39 WBC: 3.3 L Hgb: 7.4 L Hct: 22.6 L Platelet: 172 Neutrophil %: 89.6 H Glucose Level: 197 H Sodium Level: 135 L Potassium Level: 4.8 BUN: 60.0 H Creatinine Lvl (s): 12.75 H Imaging Results and Diagnostics CT Thorax 01/30 IMPRESSION: 1. Large collection in the left anterior chest wall surrounds the pacemaker and contains locules of air, concerning for an abscess. 2. Slight interval improvement of right lower and middle lobe airspace disease. 3. Probably resolved edema with trace right effusion. Assessment/Plan ICD pocket hematoma in the setting of recent ICD generator change 01/26/2025, very low concerns for pocket infection Hx of dual-chamber ICD 2014 (Medtronic) follows Dr. Rodriguez - left upper chest evaluated. No redness, purulent discharge, fevers, chills, pruritus, skin breakdown noted. Area around incision does appear somewhat swollen with associated fluid collection, likely representing hematoma. Air around fluid collection likely related to the recensy of the procedure.Minimal- mild tenderness with palpation. - At this time, would recommend continue monitoring closely. No immediate indications for device removal. However, it is worth noting that hematoma does increase risk of developing an infection. Nonischemic cardiomyopathy with improved EF 50% (09/2024, previously 30%), not in acute exacerbation ESRD on iHD (M/W/F) follows Dr. Serna, stable Nonobstructive CAD per cath 2022 Mild MS (V-max 2.4, YRAI 1.6, LVOT VTI 0.5), Moderate MR; stable Hypertension Current tobacco use Hyperlipidemia Problem List/Past Medical History Ongoing Abdominal pain Acute hypoxic respiratory failure AICD (automatic cardioverter/defibrillator) present Anemia Ankle injury Anxiety Assistance needed with transportation BMI 26.0-26.9,adult CAD in [place] artery Cardiomyopathy Chest pain Chronic renal failure Cigarette smoker COPD (chronic obstructive pulmonary disease) Coronary artery calcification, severe on CT 2024 Depression STRAUSS (dyspnea on exertion) End stage renal disease Glasses Headache HFrEF (heart failure with reduced ejection fraction) History of fall , about 10 feet into gravel History of MRSA infection Hx of hyperparathyroidism Hypertension Hypertensive urgency Hypokinesis on echo 2022 Impacted cerumen of right ear Left serous otitis media Low back pain with left-sided sciatica Malrotation colon Medically noncompliant Migraine Mitral regurgitation Need for isolation Pressure ulcer, stage 1 SOBOE (shortness of breath on exertion) Trigger finger, right middle finger Vascular dialysis catheter in place Weakness Wrist sign 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 Procedure/Surgical History Defibrillator: 01/24/15 Peritoneal procedure Kidney transplant Parathyroid Dialysis catheter Nasal septoplasty Cholecystectomy Parathyroidectomy Cholecystectomy Medications Inpatient aspirin 81 mg oral delayed release tablet, 81 mg= 1 tab(s), Oral, Daily atorvastatin, 40 mg= 1 tab(s), Oral, qDay carvedilol 6.25 mg oral tablet, 6.25 mg= 1 tab(s), Oral, BID cefTAZidime Dextrose 50% IV Push, 25 gram(s)= 50 mL, IV Push, AsDirected, PRN DuoNeb, 3 mL, Inhalation, q4hRT, PRN Flagyl, 500 mg= 1 tab(s), Oral, BID heparin, 5000 unit(s)= 1 mL, Subcutaneous, q8h hydrALAZINE, 25 mg= 1 tab(s), Oral, TID isosorbide mononitrate 30 mg oral tablet, extended release, 60 mg= 2 tab(s), Oral, qDayAC magnesium sulfate for IV bolus, 2 gram(s)= 50 mL, IV Piggyback, AsDirected, PRN magnesium sulfate for IV bolus, 4 gram(s)= 100 mL, IV Piggyback, AsDirected, PRN magnesium sulfate for IV bolus melatonin, 6 mg= 2 tab(s), Oral, qHS, PRN Norman 325- 5 mg oral tablet, 1 tab(s), Oral, q4h, PRN Norman 325-10 mg oral tablet, 1 tab(s), Oral, q4h, PRN potassium chloride, 20 mEq= 1 tab(s), Oral, AsDirected, PRN potassium chloride, 40 mEq= 2 tab(s), Oral, AsDirected, PRN potassium chloride, 40 mEq= 2 tab(s), Oral, AsDirected, PRN potassium chloride bolus, 20 mEq= 100 mL, IV Piggyback, AsDirected, PRN Renvela 800 mg oral tablet, 800 mg= 1 tab(s), Oral, TIDM Tylenol, 650 mg= 2 tab(s), Oral, q4h, PRN vancomycin, 1 EA, Miscellaneous, Daily Zofran, 4 mg= 2 mL, IV Push, q4h, PRN Home acetaminophen 325 mg oral capsule, 650 mg= 2 cap(s), Oral, q4h, PRN albuterol MDI (90 mcg/inh) CFC free inhalation aerosol, 1 puff(s), Inhalation, q4h, PRN, 3 refills aspirin 81 mg oral delayed release tablet, 81 mg= 1 tab(s), Oral, Daily, 3 refills atorvastatin 40 mg oral tablet, 40 mg= 1 tab(s), Oral, qDay, 3 refills calcium acetate 667 mg oral capsule, 2668 mg= 4 cap(s), Oral, TIDM carvedilol 6.25 mg oral tablet, 6.25 mg= 1 tab(s), Oral, BID, 3 refills hydrALAZINE 25 mg oral tablet, 25 mg= 1 tab(s), Oral, TID, 3 refills isosorbide mononitrate 30 mg oral tablet, extended release, 60 mg= 2 tab(s), Oral, qDayAC, 3 refills Renvela 800 mg oral tablet (NF), 800 mg= 1 tab(s), Oral, TIDM Symbicort 80 mcg-4.5 mcg/inh Inhaler, 2 puff(s), Inhalation, BID, 2 refills Allergies penicillin (Moderate) Anaphylaxis, rash Contrast dye Skin rash, Fever fentaNYL Agitation propranolol Agitation Social History Smoking Status - 11/25/2017 Current every day smoker Alcohol - Denies Alcohol Use, 01/16/2017 Use: Never., 12/07/2018 Home/Environment Living situation: Home/Independent. Domestic Concerns: Denies. Current Home Treatments Hemodialysis., 01/26/2025 Nutrition/Health Type of diet: Regular. Caffeine intake amount: 3-4 servings/day. Appetite Fair. Eating DifficultiesNone., 01/26/2025 Substance Abuse - Denies Substance Abuse, 01/16/2017 Use: Never., 12/07/2018 Tobacco Nicotine Use: Former smoker, quit more than 30 days ago., 01/14/2025 Family History Diabetes mellitus: Father. Heart disease: Father. Hypertension: Father. Health Status Family Member(s) Immunizations pneumococcal 13-valent conjugate vaccine: 0 unknown unit (10/23/16) pneumococcal 23-valent vaccine(Pneumovax: 0 unknown unit (06/03/15) pneumococcal 23-valent vaccine(Pneumovax: 0.5 mL (02/24/14) pneumococcal 23-valent vaccine(Pneumovax: 0 unknown unit (06/23/07) SARS-CoV-2 mRNA (toyiselnameran) vaccine: 0.3 unknown unit (05/28/21) SARS-CoV-2 mRNA (tozinameran) vaccine: 0.3 unknown unit (05/07/21) tetanus/diphtheria/pertussMUL.ORD![id number]: 0.5 mL (10/23/20) tetanus/diphtheria/pertussMUL.ORD![id number]: 0.5 mL (11/19/13) Digitally Signed by LEIGHA BOWEN MD on 01/31/2025 04:[address] [id number] Infectious disease Progress note Date of Service 01/31/2025 Chief Complaint Concern for AICD pocket infection Subjective Patient seen and independently evaluated the bedside. He is resting in bed comfortably in no acute distress. Seen up in dialysis. States that he will be leaving today, agrees to sign out AMA. No new complaints. No fever, chills or night sweats. No nausea, vomiting or diarrhea. No abdominal pain. Nourinary complaints. Objective Vitals and Measurements T: 36.1 C (Skin) TMIN: 36.0 C (Axillary) TMAX: 36.6 C (Oral) HR: 66 (Monitored) RR: 16 BP: 164/88 SpO2: 98% WT: 77.8 kg Intake and Output 7AM Yesterday to 7AM Today Intake and Output (Last 24 hours) Intake Oral Intake 460.00 Output Urine Voided 0.00 Total Summary Total Intake 460.00 Total Output 0.00 Fluid Balance 460.00 Physical Exam General: No acute distress. Alert and Appropriate Skin: Transparent dressing over the cardiac pacemaker site, dressing is clean, dry and intact HEENT: Head is normocephalic and atraumatic. No lesions. Pupils equal in size. Extraocular movements within normal limits. Nose: No septal deviation. Mouth: Oropharynx mucosa is without lesion. Neck: Supple. No lymphadenopathy, thyromegaly noted. No carotid bruit heard. Lungs: Bilaterally clear breath sounds with no crepitation or wheeze. Cardiovascular: Heart is regular rhythm, S1S2, No extra-audible heart tones Abdomen: Abdomen is soft, nontender. Bowel sounds positive all four quadrants. No hepatosplenomegaly noted. Extremities: No clubbing, cyanosis or edema. Peripheral pulses palpable. No calf tenderness. Adequate peripheral circulation. Neurological: The patient is awake, oriented to person, place and time. Following simple commands, moving all extremities. Weight Dosing Weight: 77.8 kg (01/31/25) Dosing Weight: 73.3 kg (01/30/25) Medications Medications (24) Active Scheduled: (10) aspirin 81 mg EC 81 mg 1 tab(s), Oral, Daily atorvastatin 40 mg tablet 40 mg 1 tab(s), Oral, qDay carvedilol 6.25 mg tablet 6.25 mg 1 tab(s), Oral, BID ceftazidime 2 gram(s), IV Piggyback, q24h heparin 5,000 units/mL (1 mL) vial 5,000 unit(s) 1 mL, Subcutaneous, q8h hydralazine 25 mg Tablet 25 mg 1 tab(s), Oral, TID isosorbide mononitrate 30 mg ER tablet 60 mg 2 tab(s), Oral, qDayAC metronidazole 500 mg Tablet 500 mg 1 tab(s), Oral, BID sevelamer carbonate 800 mg tablet 800 mg 1 tab(s), Oral, TIDM VANCOMYCIN -- pharmacy re-dosing by random level 1 EA, Miscellaneous, Daily Continuous: (0) PRN: (14) acetaminophen 325 mg Tablet 650 mg 2 tab(s), Oral, q4h acetaminophen-HYDROcodone 325-10 mg tablet 1 tab(s), Oral, q4h acetaminophen-HYDROcodone 325-5 mg tablet 1 tab(s), Oral, q4h albuterol - ipratropium 2.5 mg-0.5 mg/3 mL Inhal Elizabeth UD 3 mL, Inhalation, q4hRT dextrose 50% Solution Disp syringe 50 mL 25 gram(s) 50 mL, IV Push, AsDirected magnesium sulfate 4 gram(s)/100mL PMX 4 g 100 mL, IV Piggyback, AsDirected magnesium sulfate 50% (500mg/mL) 6 g 12 mL, IV Piggyback, AsDirected magnesium sulfate PMX 2 g 50 mL, IV Piggyback, AsDirected melatonin 3 mg tablet 6 mg 2 tab(s), Oral, qHS ondansetron 2 mg/ 1 mL 2 mL INJ 4 mg 2 mL, IV Push, q4h potassium chloride (PMX) 20 mEq/100 mL 20 mEq 100 mL, IV Piggyback, AsDirected potassium chloride 20 mEq ER tablet 20 mEq 1 tab(s), Oral, AsDirected potassium chloride 20 mEq ER tablet 40 mEq 2 tab(s), Oral, AsDirected potassium chloride 20 mEq ER tablet 40 mEq 2 tab(s), Oral, AsDirected Lab Results 01/31 05:36 WBC: 6.6 Hgb: 7.0 L Hct: 21.1 L Platelet: 187 Neutrophil %: 74.8 Glucose Level: 96 Glucose Level: 96 Sodium Level: 136 Sodium Level: 136 Potassium Level: 4.7 Potassium Level: 4.7 BUN: 75.0 H BUN: 75.0 H Creatinine Lvl (s): 14.74 H Creatinine Lvl (s): 14.74 H 01/30 06:39 WBC: 3.3 L Hgb: 7.4 L Hct: 22.6 L Platelet: 172 Neutrophil %: 89.6 H Glucose Level: 197 H Sodium Level: 135 L Potassium Level: 4.8 BUN: 60.0 H Creatinine Lvl (s): 12.75 H Imaging Results and Diagnostics N/A EKG EKG - Completed -- 01/29/25 23:57:00 EDT Assessment/Plan Questionable chest cellulitis Chest wall abscess versus procedural changes AICD pocket infection Status post ICD generator change on 01/26/2025 ESRD via right arm AV fistula Patient is a 49-year-old male with history of nonischemic cardiomyopathy status post ICD, ESRD on HD through right AV fistula, mild AAS, recent ICD generator change on 01/26/2025 with findings of significant calcification of the ICD pocket presents to the hospital on 01/29/2025 with swelling and pain near the generator site with fluid draining. CT of the chest showed large fluid collection to the anterior left chest wall surrounding the pacemaker and contains locule of air concerning for abscess. ID following for concern of AICD pocket site infection. #1 AICD pocket infection. EP recommending TTE to evaluate for infection. It is unclear whether thisis infection or secondary to recent procedure. He is clinically improving, no fever no leukocytosis. Discussed with patient in regards to risks of leaving AMA including mortality and morbidity. Patient is adamant that he would like to be discharged as he has a tomorrow and needs to sign paperwork in order to be on the will. ID advises against this and at this time we cannot leave final recommendations. He would recommend aspiration of the fluid surrounding the pacemaker and recommend cultures to be collected to evaluate for infection. At this time, we recommend to hold antibiotics. Plan of care discussed in depth with patient. All questions answered. Discussed with my collaborating physician Dr. Jan Toledo. Any changes to the plan will be added to end as an addendum. Time Spent I spent a total of 42 minutes reviewing the patient s diagnostic labs/tests, seeing and examining the patient and documenting in the medical record, see assessment for further detail. Digitally Signed by HENRIQUE GAMBLE on 01/31/2025 07:[address] [facility] [id number] Nephrology Progress note Objective Vitals and Measurements T: 36.3 C (Oral) TMIN: 36.0 C (Axillary) TMAX: 36.7 C (Oral) HR: 70 (Monitored) RR: 19 BP: 154/70 SpO2: 97% Intake and Output 7AM Yesterday to 7AM Today Intake and Output (Last 24 hours) Intake Oral Intake 680.00 Output Urine Voided 0.00 Total Summary Total Intake 680.00 Total Output 0.00 Fluid Balance 680.00 Physical Exam General: No distress on room air HEENT: Mucosa was moist, sclera anicteric, extraocular muscles intact, neck veins were flat, no carotid bruits Access: Right arm AV fistula with positive bruit and thrill. Multiple aneurysms. Lungs: Clear bilaterally with no crackles wheezes or rhonchi Heart: Regular with no murmurs rubs or gallops Abdomen: Positive bowel sounds, soft, no palpable masses Extremities: No edema, pulses 2+ in all 4 extremities Skin: No rashes, normal turgor Weight Dosing Weight: 73.3 kg (01/30/25) Medications Medications (18) Active Scheduled: (4) ceftazidime 2 gram(s), IV Piggyback, q24h heparin 5,000 units/mL (1 mL) vial 5,000 unit(s) 1 mL, Subcutaneous, q8h metronidazole 500 mg Tablet 500 mg 1 tab(s), Oral, BID VANCOMYCIN -- pharmacy re-dosing by random level 1 EA, Miscellaneous, Daily Continuous: (0) PRN: (14) acetaminophen 325 mg Tablet 650 mg 2 tab(s), Oral, q4h acetaminophen-HYDROcodone 325-10 mg tablet 1 tab(s), Oral, q4h acetaminophen-HYDROcodone 325-5 mg tablet 1 tab(s), Oral, q4h albuterol - ipratropium 2.5 mg-0.5 mg/3 mL Inhal Elizabeth UD 3 mL, Inhalation, q4hRT dextrose 50% Solution Disp syringe 50 mL 25 gram(s) 50 mL, IV Push, AsDirected magnesium sulfate 4 gram(s)/100mL PMX 4 g 100 mL, IV Piggyback, AsDirected magnesium sulfate 50% (500mg/mL) 6 g 12 mL, IV Piggyback, AsDirected magnesium sulfate PMX 2 g 50 mL, IV Piggyback, AsDirected melatonin 3 mg tablet 6 mg 2 tab(s), Oral, qHS ondansetron 2 mg/ 1 mL 2 mL INJ 4 mg 2 mL, IV Push, q4h potassium chloride (PMX) 20 mEq/100 mL 20 mEq 100 mL, IV Piggyback, AsDirected potassium chloride 20 mEq ER tablet 20 mEq 1 tab(s), Oral, AsDirected potassium chloride 20 mEq ER tablet 40 mEq 2 tab(s), Oral, AsDirected potassium chloride 20 mEq ER tablet 40 mEq 2 tab(s), Oral, AsDirected Lab Results 01/31 05:36 WBC: 6.6 Hgb: 7.0 L Hct: 21.1 L Platelet: 187 Neutrophil %: 74.8 01/30 06:39 WBC: 3.3 L Hgb: 7.4 L Hct: 22.6 L Platelet: 172 Neutrophil %: 89.6 H Glucose Level: 197 H Sodium Level: 135 L Potassium Level: 4.8 BUN: 60.0 H Creatinine Lvl (s): 12.75 H EKG EKG - Completed -- 01/29/25 23:57:00 EDT Time Spent esrd on hd. home hd anemia heart failure plan plan for hd today. 3k bath. uf to dry weright as tolerated. will give epo with dialysis. consdier 1unit transfusion. dose meds for gfr<10. [1] Consult Note; CHAYA OWENS MD 01/30/2025 10:54 EDT Digitally Signed by ROBERT GARCIA MD on 01/31/2025 02:[address] [facility] [address] [id number] History and physical note Date of Service 01/30/2025 09:43:17 History of Present Illness Patient is a 49-year-old male with medical history significant for ESRD on IHD (follows Dr. Wiley), nonischemic cardiomyopathy EF 30% 2022 improved to 50% September 2024, mild nonobstructive CAD 2022, s/p ICD 2014, mild (V-max 2.4, YARI 1.6, DVI 0.5), moderate MR, mild PHTN, mild, hypertension, current tobacco use and hyperlipidemia. He had his ICD generator change on 01/26/2025 (april [place]). Follows Dr. Colorado --Functionally independent, lives with his . Patient stated he underwent ICD generator change on 01/26/2025, postprocedure he had mild pain however it increased and became more tender along with worsening swelling around the device. He noticed yellowish drainage from the lateral side of the dressing yesterday. Denies any fever or chills. He is on hemodialysis (Friday, Friday, Friday) however because of his procedure on Friday he got hisdialysis on and Friday. He had CT chest with contrast at [facility] showing large collection of fluid left anterior chest wall surrounding pacemaker with locules of air with concerns for abscess formation. Concern for right lower and middle lobe airspace disease. Trace effusion on the right. Noted to have acute on chronic anemia with hemoglobin 6.7 (B/L Hgb 7-8), received transfusion at [facility]. CRP 3.1. HS troponin 40 (similar to previous level). EKG reviewed showing sinus rhythm at a rate of 87 bpm with left axis deviation with incomplete LBBB pattern. Review of Systems Negative except as mentioned in HPI Physical Exam Vitals and Measurements T: 36.7 C (Oral) TMIN: 36.6 C (Oral) TMAX: 37.0 C (Oral) HR: 75 (Monitored) RR: 16 BP: 144/78 SpO2: 97% HT: 180.3 cm WT: 73.3 kg BMI: 22.55 Weight Dosing Weight: 73.3 kg (01/30/25) General: Appears stated age and in no acute distress HEENT: EOMI, PERRLA, anicteric, mucous membranes moist Neck: No JVD Chest: Dressing present left upper chest with edema around the dressing with mild erythema and warmth with no discharge noted Respiratory: CTAB with nonlabored breathing Cardiovascular: Regular rhythm with normal S1-S2 with systolic murmur RUSB Abdomen: Soft, BS present Extremities: Trace edema b/l LE, AV fistula right upper extremity Integumentary: Warm and dry Neurological: AO x 3, speech normal, no FND, strength and sensation grossly intact. Lab Results 01/30 06:39 WBC: 3.3 L Hgb: 7.4 L Hct: 22.6 L Platelet: 172 Neutrophil %: 89.6 H Glucose Level: 197 H Sodium Level: 135 L Potassium Level: 4.8 BUN: 60.0 H Creatinine Lvl (s): 12.75 H Assessment/Plan # ICD pocket hematoma versus infection # Acute on chronic anemia (B/L 7-8) # Recent ICD generator change 01/26/2025 # S/p dual-chamber ICD 2014 (Medtronic) follows Dr. Rodriguez # Nonischemic cardiomyopathy with improved EF 50%, not in decompensation # Nonobstructive CAD per cath 2022 # ESRD on iHD (M/W/F) follows Dr. Serna # Mild MS (V-max 2.4, YARI 1.6, LVOT VTI 0.5) # Moderate MR # Hypertension # Current tobacco use # Hyperlipidemia Cardiac testing: Echo 12/20/2024 showed EF 40 to 45% with mild diffuse hypokinesis, systolic function mildly reduced,GI DD. Mild . Mild MR. Echo 09/24/2022 showed EF 30% with severely reduced systolic function with diastolic dysfunction. Mild and mild MR. LHC/exercise 2022 showed mild CAD mild Patient is a 49-year-old male with above-mentioned medical history presented to [facility] for pain and swelling around the ICD pocket, he recently had generator change on 01/26/2025, since then the pain has been getting worse along with the swelling and has become more tender. He had noticed some discharge from the lateral side yesterday. On exam he was noted to have significant tenderness aroundwith swelling and mild erythema, no discharge was noted, dressing seemed intact. He does not have any systemic signs of infection at this time. CRP mildly elevated at 3.1. CT reviewed showing soft tissue edema with air. He is noted to have hemoglobin of 6.7 at [facility], received a transfusion, repeat CBC pending. Plan: - Started patient on vancomycin, obtain blood cultures showed no growth so far - ID, Nephro and EP are consulted. - He has noted to have acute anemia with Hgb 6.7 (baseline 7-8), received PRBC transfusion at [facility], repeat CBC pending, no overt signs of bleeding noted. - Resume home medications This note was transcribed using [employer] dictation software; please excuse any inadvertent typographical or grammatical errors. The plan was reviewed with the attending, who is in agreement. Problem List/Past Medical History Ongoing Abdominal pain Acute hypoxic respiratory failure AICD (automatic cardioverter/defibrillator) present Anemia Ankle injury Anxiety Assistance needed with transportation BMI 26.0-26.9,adult CAD in [place] artery Cardiomyopathy Chest pain Chronic renal failure Cigarette smoker COPD (chronic obstructive pulmonary disease) Coronary artery calcification, severe on CT 2024 Depression STRAUSS (dyspnea on exertion) End stage renal disease Glasses Headache HFrEF (heart failure with reduced ejection fraction) History of fall , about 10 feet into gravel History of MRSA infection Hx of hyperparathyroidism Hypertension Hypertensive urgency Hypokinesis on echo 2022 Impacted cerumen of right ear Left serous otitis media Low back pain with left-sided sciatica Malrotation colon Medically noncompliant Migraine Mitral regurgitation Need for isolation Pressure ulcer, stage 1 SOBOE (shortness of breath on exertion) Trigger finger, right middle finger Vascular dialysis catheter in place Weakness Wrist sign 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44%-20.6% topical ointment 1 kyleigh, Topical, TID carvedilol 6.25 mg oral tablet 6.25 mg = 1 tab(s), Oral, BID hydrALAZINE 25 mg oral tablet 25 mg = 1 tab(s), Oral, TID isosorbide mononitrate 30 mg oral tablet, extended release 60 mg = 2 tab(s), Oral, qDayAC Renvela 800 mg oral tablet (NF) 800 mg = 1 tab(s), Oral, TIDM Symbicort 80 mcg-4.5 mcg/inh Inhaler 2 puff(s), Inhalation, BID Allergies penicillin (Moderate) Anaphylaxis, rash Contrast dye Skin rash, Fever fentaNYL Agitation propranolol Agitation Social History Smoking Status - 11/25/2017 Current every day smoker Alcohol - Denies Alcohol Use, 01/16/2017 Use: Never., 12/07/2018 Home/Environment Living situation: Home/Independent. Domestic Concerns: Denies. Current Home Treatments Hemodialysis., 01/26/2025 Nutrition/Health Type of diet: Regular. Caffeine intake amount: 3-4 servings/day. Appetite Fair. Eating DifficultiesNone., 01/26/2025 Substance Abuse - Denies Substance Abuse, 01/16/2017 Use: Never., 12/07/2018 Tobacco Nicotine Use: Former smoker, quit more than 30 days ago., 01/14/2025 Family History Diabetes mellitus: Father. Heart disease: Father. Hypertension: Father. Health Status Family Member(s) Immunizations pneumococcal 13-valent conjugate vaccine: 0 unknown unit (10/23/16) pneumococcal 23-valent vaccine(Pneumovax: 0 unknown unit (06/03/15) pneumococcal 23-valent vaccine(Pneumovax: 0.5 mL (02/24/14) pneumococcal 23-valent vaccine(Pneumovax: 0 unknown unit (06/23/07) SARS-CoV-2 mRNA (tozinameran) vaccine: 0.3 unknown unit (05/28/21) SARS-CoV-2 mRNA (tozinameran) vaccine: 0.3 unknown unit (05/07/21) tetanus/diphtheria/pertussMUL.ORD![id number]: 0.5 mL (10/23/20) tetanus/diphtheria/pertussMUL.ORD![id number]: 0.5 mL (11/19/13) Code Status Code Status - Ordered -- 01/30/25 1:48:00 EDT, Full Code, Constant Order Digitally Signed by ROB JOSEPH MD on 01/30/2025 09:[address] [facility] [address] [id number] History and physical note Date of Service 01/30/2025 09:43:17 History of Present Illness Patient is a 49-year-old male with medical history significant for ESRD on IHD (follows Dr. Wiley), nonischemic cardiomyopathy EF 30% 2022 improved to 50% September 2024, mild nonobstructive CAD 2022, s/p ICD 2014, mild (V-max 2.4, YARI 1.6, DVI 0.5), moderate MR, mild PHTN, mild, hypertension, current tobacco use and hyperlipidemia. He had his ICD generator change on 01/26/2025 (april [place]). Follows Dr. Colorado --Functionally independent, lives with his . Patient stated he underwent ICD generator change on 01/26/2025, postprocedure he had mild pain however it increased and became more tender along with worsening swelling around the device. He noticed yellowish drainage from the lateral side of the dressing yesterday. Denies any fever or chills. He is on hemodialysis (Friday, Friday, Friday) however because of his procedure on Friday he got hisdialysis on and Friday. He had CT chest with contrast at [facility] showing large collection of fluid left anterior chest wall surrounding pacemaker with locules of air with concerns for abscess formation. Concern for right lower and middle lobe airspace disease. Trace effusion on the right. Noted to have acute on chronic anemia with hemoglobin 6.7 (B/L Hgb 7-8), received transfusion at [facility]. CRP 3.1. HS troponin 40 (similar to previous level). EKG reviewed showing sinus rhythm at a rate of 87 bpm with left axis deviation with incomplete LBBB pattern. Review of Systems Negative except as mentioned in HPI Physical Exam Vitals and Measurements T: 36.7 C (Oral) TMIN: 36.6 C (Oral) TMAX: 37.0 C (Oral) HR: 75 (Monitored) RR: 16 BP: 144/78 SpO2:97% HT: 180.3 cm WT: 73.3 kg BMI: 22.55 Weight Dosing Weight: 73.3 kg (01/30/25) General: Appears stated age and in no acute distress HEENT: EOMI, PERRLA, anicteric, mucous membranes moist Neck: No JVD Chest: Dressing present left upper chest with edema around the dressing with mild erythema and warmth with no discharge noted Respiratory: CTAB with nonlabored breathing Cardiovascular: Regular rhythm with normal S1-S2 with systolic murmur RUSB Abdomen: Soft, BS present Extremities: Trace edema b/l LE, AV fistula right upper extremity Integumentary: Warm and dry Neurological: AO x 3, speech normal, no FND, strength and sensation grossly intact. Lab Results 01/30 06:39 WBC: 3.3 L Hgb: 7.4 L Hct: 22.6 L Platelet: 172 Neutrophil %: 89.6 H Glucose Level: 197 H Sodium Level: 135 L Potassium Level: 4.8 BUN: 60.0 H Creatinine Lvl (s): 12.75 H Assessment/Plan # ICD pocket hematoma versus infection # Acute on chronic anemia (B/L 7-8) # Recent ICD generator change 01/26/2025 # S/p dual-chamber ICD 2014 (Medtronic) follows Dr. Rodriguez # Nonischemic cardiomyopathy with improved EF 50%, not in decompensation # Nonobstructive CAD per cath 2022 # ESRD on iHD (M/W/F) follows Dr. Serna # Mild MS (V-max 2.4, YARI 1.6, LVOT VTI 0.5) # Moderate MR # Hypertension # Current tobacco use # Hyperlipidemia Cardiac testing: Echo 12/20/2024 showed EF 40 to 45% with mild diffuse hypokinesis, systolic function mildly reduced,GI DD. Mild . Mild MR. Echo 09/24/2022 showed EF 30% with severely reduced systolic function with diastolic dysfunction. Mild and mild MR. LHC/exercise 2022 showed mild CAD mild Patient is a 49-year-old male with above-mentioned medical history presented to [facility] for pain and swelling around the ICD pocket, he recently had generator change on 01/26/2025, since then the pain has been getting worse along with the swelling and has become more tender. He had noticed some discharge from the lateral side yesterday. On exam he was noted to have significant tenderness aroundwith swelling and mild erythema, no discharge was noted, dressing seemed intact. He does not have any systemic signs of infection at this time. CRP mildly elevated at 3.1. CT reviewed showing soft tissue edema with air. He is noted to have hemoglobin of 6.7 at [facility], received a transfusion, repeat CBC pending. Plan: - Started patient on vancomycin, obtain blood cultures showed no growth so far - ID, Nephro and EP are consulted. - He has noted to have acute anemia with Hgb 6.7 (baseline 7-8), received PRBC transfusion at [facility], repeat CBC pending, no overt signs of bleeding noted. - Resume home medications This note was transcribed using [employer] dictation software; please excuse any inadvertent typographical or grammatical errors. The plan was reviewed with the attending, who is in agreement. Problem List/Past Medical History Ongoing Abdominal pain Acute hypoxic respiratory failure AICD (automatic cardioverter/defibrillator) present Anemia Ankle injury Anxiety Assistance needed with transportation BMI 26.0-26.9,adult CAD in [place] artery Cardiomyopathy Chest pain Chronic renal failure Cigarette smoker COPD (chronic obstructive pulmonary disease) Coronary artery calcification, severe on CT 2024 Depression STRAUSS (dyspnea on exertion) End stage renal disease Glasses Headache HFrEF (heart failure with reduced ejection fraction) History of fall , about 10 feet into gravel History of MRSA infection Hx of hyperparathyroidism Hypertension Hypertensive urgency Hypokinesis on echo 2022 Impacted cerumen of right ear Left serous otitis media Low back pain with left-sided sciatica Malrotation colon Medically noncompliant Migraine Mitral regurgitation Need for isolation Pressure ulcer, stage 1 SOBOE (shortness of breath on exertion) Trigger finger, right middle finger Vascular dialysis catheter in place Weakness Wrist sign 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44%-20.6% topical ointment 1 kyleigh, Topical, TID carvedilol 6.25 mg oral tablet 6.25 mg = 1 tab(s), Oral, BID hydrALAZINE 25 mg oral tablet 25 mg = 1 tab(s), Oral, TID isosorbide mononitrate 30 mg oral tablet, extended release 60 mg = 2 tab(s), Oral, qDayAC Renvela 800 mg oral tablet (NF) 800 mg = 1 tab(s), Oral, TIDM Symbicort 80 mcg-4.5 mcg/inh Inhaler 2 puff(s), Inhalation, BID Allergies penicillin (Moderate) Anaphylaxis, rash Contrast dye Skin rash, Fever fentaNYL Agitation propranolol Agitation Social History Smoking Status - 11/25/2017 Current every day smoker Alcohol - Denies Alcohol Use, 01/16/2017 Use: Never., 12/07/2018 Home/Environment Living situation: Home/Independent. Domestic Concerns: Denies. Current Home Treatments Hemodialysis., 01/26/2025 Nutrition/Health Type of diet: Regular. Caffeine intake amount: 3-4 servings/day. Appetite Fair. Eating DifficultiesNone., 01/26/2025 Substance Abuse - Denies Substance Abuse, 01/16/2017 Use: Never., 12/07/2018 Tobacco Nicotine Use: Former smoker, quit more than 30 days ago., 01/14/2025 Family History Diabetes mellitus: Father. Heart disease: Father. Hypertension: Father. Health Status Family Member(s) Immunizations pneumococcal 13-valent conjugate vaccine: 0 unknown unit (10/23/16) pneumococcal 23-valent vaccine(Pneumovax: 0 unknown unit (06/03/15) pneumococcal 23-valent vaccine(Pneumovax: 0.5 mL (02/24/14) pneumococcal 23-valent vaccine(Pneumovax: 0 unknown unit (06/23/07) SARS-CoV-2 mRNA (tozinameran) vaccine: 0.3 unknown unit (05/28/21) SARS-CoV-2 mRNA (tozinameran) vaccine: 0.3 unknown unit (05/07/21) tetanus/diphtheria/pertussMUL.ORD![id number]: 0.5 mL (10/23/20) tetanus/diphtheria/pertussMUL.ORD![id number]: 0.5 mL (11/19/13) Code Status Code Status - Ordered -- 01/30/25 1:48:00 EDT, Full Code, Constant Order Digitally Signed by ROB JOSEPH MD on 01/30/2025 09:[address] [facility] [address] [id number] Evaluation + Plan noteExtracted from: Title:History and Physical Author:ROB JOSEPH MD Date:01/30/25 # ICD pocket hematoma versus infection # Acute on chronic anemia (B/L 7-8) # Recent ICD generator change 01/26/2025 # S/p dual-chamber ICD 2014 (Medtronic) follows Dr. Rodriguez # Nonischemic cardiomyopathy with improved EF 50%, not in decompensation # Nonobstructive CAD per cath 2022 # ESRD on iHD (M/W/F) follows Dr. Serna # Mild MS (V-max 2.4, YARI 1.6, LVOT VTI 0.5) # Moderate MR # Hypertension # Current tobacco use # Hyperlipidemia Cardiac testing: Echo 12/20/2024 showed EF 40 to 45% with mild diffuse hypokinesis, systolic function mildly reduced, GI DD. Mild . Mild MR. Echo 09/24/2022 showed EF 30% with severely reduced systolic function with diastolic dysfunction. Mild and mild MR. LHC/exercise 2022 showed mild CAD mild Patient is a 49-year-old male with above-mentioned medical history presented to [facility] for pain and swelling around the ICD pocket, he recently had generator change on 01/26/2025, since then the pain has been getting worse along with the swelling and has become more tender. He had noticed some discharge from the lateral side yesterday. On exam he was noted to have significant tenderness around with swelling and mild erythema, no discharge was noted, dressing seemed intact. He does not have any systemic signs of infection at this time. CRP mildly elevated at 3.1. CT reviewed showing soft tissue edema with air. He is noted to have hemoglobin of 6.7 at [facility], received a transfusion, repeat CBC pending. Plan: - Started patient on vancomycin, obtain blood cultures showed no growth so far - ID, Nephro and EP are consulted. - He has noted to have acute anemia with Hgb 6.7 (baseline 7-8), received PRBC transfusion at [facility], repeat CBC pending, no overt signs of bleeding noted. - Resume home medications This note was transcribed using [employer] dictation software; please excuse any inadvertent typographical or grammatical errors. The plan was reviewed with the attending, who is in agreement. Addendum by CHANDANA NEWMAN on January 30, 2025 19:41:54 EDT I have personally seen, examined, and evaluated the patient on the encounter date. I have reviewed the fellow s documentation and agree with the fellow s findings and plan as documented, unless otherwise stated. Addendum by CHANDANA NEWMAN on January 30, 2025 19:42:01 EDT d/w Dr Kevin METZ consult Future Appointments Appointment Date:02/10/2025 09:00:00 AM Scheduled Provider: Location:[facility] Appointment Type:CV Incision Check Appointment Date:04/28/2025 09:30:00 AM Scheduled Provider: Location:[facility] Appointment Type:CV Office Procedure ICD Appointment Date:07/29/2025 06:45:00 PM Scheduled Provider: Location:[facility] Appointment Type:CV Remote Procedure HM Appointment Date:08/26/2025 12:30:00 PM Scheduled Provider:MONIE ALSTON DO Location:[facility] Appointment Type:PC Wellness Annual Future Scheduled Tests Laboratory* Lipoprotein (a) 09/24/24 * Apolipoprotein B 09/24/24 * TSH with Reflex to FT4 09/24/24 * Prostate Specific Antigen 09/24/24 * A1C Hemoglobin 09/24/24 * Lipid Profile 09/24/24 Radiology* MRI Spine Lumbar w/o Contrast 09/14/[address] [facility] 08-10-2025 Infectious disease Consult note Date of Service 01/30/25 Reason for Consultation concern of possible ICD pocket site infection. Referring Physician Dr Ponce History of Present Illness This is a 49-year-old male with history of nonischemic cardiomyopathy (EF previously 30% in 2022, improved to 50% in September 2024), mild aortic stenosis, moderate mitral regurgitation, mild pulmonary hypertension, hypertension, dyslipidemia, ESRD on hemodialysis, and tobacco use who recently underwent successful dual-chamber ICD generator change 01/26/25 and was noted to have significant calcification of the ICD pocket . He presented to the emergency room with complaints of swelling and pain to thegenerator site and was noted to have some fluid draining from the lateral aspect of his incision. CT scan of the chest was obtained demonstrating large fluid collection in the anterior left chest wall surrounded the pacemaker and contains locules of air concerning for abscess. Slight interval improvement of right lower and middle lobe airspace disease. The patient was admitted for further workup evaluation. ID was consulted for concern of possible ICD pocket site infection. Review of Systems Left-sided chest wall swelling and tenderness otherwise 10 point review of systems negative Physical Exam Vitals and Measurements T: 36.7 C (Oral) TMIN: 36.6 C (Oral) TMAX: 37.0 C (Oral) HR: 75 (Monitored) RR: 16 BP: 144/78 SpO2:97% HT: 180.3 cm WT: 73.3 kg BMI: 22.55 Weight Dosing Weight: 73.3 kg (01/30/25) General Appearance: Awake, alert, and oriented HEENT: Normocephaly. PERRL Neck: Normal without lymphadenopathy Cardiac: Heart regular rhythm Lungs: Clear Left-sided chest wall at the AICD site swelling and tenderness and mild drainage Abdomen: Soft, non-tender, non-distended Extremities:Warm without clubbing, cyanosis or edema. Neurological: No deficits Skin: Warm, dry, intact. No rashes Psychiatric: No abnormal behaviors Lab Results 01/30 06:39 WBC: 3.3 L Hgb: 7.4 L Hct: 22.6 L Platelet: 172 Neutrophil %: 89.6 H Glucose Level: 197 H Sodium Level: 135 L Potassium Level: 4.8 BUN: 60.0 H Creatinine Lvl (s): 12.75 H Imaging Results and Diagnostics Imaging at [facility] reviewed Assessment/Plan Chest pain cellulitis with abnormal CT scan findings concerning for large fluid collection to the anterior left chest wall Chest wall abscess/AICD pocket infection versus other non infectious etiology Status post recent dual-chamber ICD generator change on 01/26/2025 End-stage renal disease-right arm AV fistula This is a 49-year-old male with history of nonischemic cardiomyopathy (EF previously 30% in 2022, improved to 50% in September 2024), mild aortic stenosis, moderate mitral regurgitation, mild pulmonary hypertension, hypertension, dyslipidemia, ESRD on hemodialysis, and tobacco use who recently underwent successful dual-chamber ICD generator change 01/26/25 and was noted to have significant calcification of the ICD pocket . He presented to the emergency room with complaints of swelling and pain to thegenerator site and was noted to have some fluid draining from the lateral aspect of his incision. CT scan of the chest was obtained demonstrating large fluid collection in the anterior left chest wall surrounded the pacemaker and contains locules of air concerning for abscess. Slight interval improvement of right lower and middle lobe airspace disease. The patient was admitted for further workup evaluation. ID was consulted for concern of possible ICD pocket site infection. End-stage renal dialysis patient, has right arm AV fistula, per nephrology notes in the past, veryaneurysmal Patient has remained afebrile. No leukocytosis. Blood cultures show no growth to date Antibiotics adjusted to vancomycin, ceftazidime and Flagyl Will benefit from JEET Will await evaluation by cardiology EP team, as patient will require surgical intervention, potential extraction versus other intervention, will await blood cultures, discussed with patient and family at length at bedside Will follow clinical course and microdata imaging studies Discussed the above at length with patient and family at bedside and all their questions were answered Thank you for allowing us to see this patient in consultation Dr. Qiu will be covering tomorrow I was present for Karen Donovan LPN , and personally directed, all components of the patient's complete evaluation and management documented by the scribe today. I have personally examined the patient and reviewed all diagnostic data. I have reviewed all of this documentation by the scribe. It documents the history obtained, examination performed, diagnostic testing results compiled by him/her,and discharge information. We provided service elements including disease transmission risk assessment and mitigation, public health investigation, analysis and testing, and complex antimicrobial therapy counseling and treatment. We discussed ways of infection control and prevention. Risks and benefits of complex antimicrobial therapy was discussed at length with patient and staff. Plan of care has been discussed with patient at bedside, we discussed potential side effects of antimicrobial therapy/antifungal/antiviral therapy. Problem List/Past Medical History Ongoing Abdominal pain Acute hypoxic respiratory failure AICD (automatic cardioverter/defibrillator) present Anemia Ankle injury Anxiety Assistance needed with transportation BMI 26.0-26.9,adult CAD in [place] artery Cardiomyopathy Chest pain Chronic renal failure Cigarette smoker COPD (chronic obstructive pulmonary disease) Coronary artery calcification, severe on CT 2024 Depression STRAUSS (dyspnea on exertion) End stage renal disease Glasses Headache HFrEF (heart failure with reduced ejection fraction) History of fall , about 10 feet into gravel History of MRSA infection Hx of hyperparathyroidism Hypertension Hypertensive urgency Hypokinesis on echo 2022 Impacted cerumen of right ear Left serous otitis media Low back pain with left-sided sciatica Malrotation colon Medically noncompliant Migraine Mitral regurgitation Need for isolation Pressure ulcer, stage 1 SOBOE (shortness of breath on exertion) Trigger finger, right middle finger Vascular dialysis catheter in place Weakness Wrist sign 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 Procedure/Surgical History Defibrillator: 01/24/15 Peritoneal procedure Kidney transplant Parathyroid Dialysis catheter Nasal septoplasty Cholecystectomy Parathyroidectomy Cholecystectomy Medications Inpatient Dextrose 50% IV Push, 25 gram(s)= 50 mL, IV Push, AsDirected, PRN DuoNeb, 3 mL, Inhalation, q4hRT, PRN heparin, 5000 unit(s)= 1 mL, Subcutaneous, q8h magnesium sulfate for IV bolus, 2 gram(s)= 50 mL, IV Piggyback, AsDirected, PRN magnesium sulfate for IV bolus, 4 gram(s)= 100 mL, IV Piggyback, AsDirected, PRN magnesium sulfate for IV bolus melatonin, 6 mg= 2 tab(s), Oral, qHS, PRN Norman 325- 5 mg oral tablet, 1 tab(s), Oral, q4h, PRN Norman 325-10 mg oral tablet, 1 tab(s), Oral, q4h, PRN potassium chloride, 20 mEq= 1 tab(s), Oral, AsDirected, PRN potassium chloride, 40 mEq= 2 tab(s), Oral, AsDirected, PRN potassium chloride, 40 mEq= 2 tab(s), Oral, AsDirected, PRN potassium chloride bolus, 20 mEq= 100 mL, IV Piggyback, AsDirected, PRN Tylenol, 650 mg= 2 tab(s), Oral, q4h, PRN vancomycin, 1 EA, Miscellaneous, Daily Zofran, 4 mg= 2 mL, IV Push, q4h, PRN Home acetaminophen 325 mg oral capsule, 650 mg= 2 cap(s), Oral, q4h, PRN albuterol MDI (90 mcg/inh) CFC free inhalation aerosol, 1 puff(s), Inhalation, q4h, PRN, 3 refills aspirin 81 mg oral delayed release tablet, 81 mg= 1 tab(s), Oral, Daily, 3 refills atorvastatin 40 mg oral tablet, 40 mg= 1 tab(s), Oral, qDay, 3 refills calcium acetate 667 mg oral capsule, 2668 mg= 4 cap(s), Oral, TIDM Calmoseptine 0.44%-20.6% topical ointment, 1 kyleigh, Topical, TID, 2 refills, Not taking carvedilol 6.25 mg oral tablet, 6.25 mg= 1 tab(s), Oral, BID, 3 refills hydrALAZINE 25 mg oral tablet, 25 mg= 1 tab(s), Oral, TID, 3 refills isosorbide mononitrate 30 mg oral tablet, extended release, 60 mg= 2 tab(s), Oral, qDayAC, 3 refills Renvela 800 mg oral tablet (NF), 800 mg= 1 tab(s), Oral, TIDM Symbicort 80 mcg-4.5 mcg/inh Inhaler, 2 puff(s), Inhalation, BID, 2 refills Allergies penicillin (Moderate) Anaphylaxis, rash Contrast dye Skin rash, Fever fentaNYL Agitation propranolol Agitation Social History Smoking Status - 11/25/2017 Current every day smoker Alcohol - Denies Alcohol Use, 01/16/2017 Use: Never., 12/07/2018 Home/Environment Living situation: Home/Independent. Domestic Concerns: Denies. Current Home Treatments Hemodialysis., 01/26/2025 Nutrition/Health Type of diet: Regular. Caffeine intake amount: 3-4 servings/day. Appetite Fair. Eating DifficultiesNone., 01/26/2025 Substance Abuse - Denies Substance Abuse, 01/16/2017 Use: Never., 12/07/2018 Tobacco Nicotine Use: Former smoker, quit more than 30 days ago., 01/14/2025 Family History Diabetes mellitus: Father. Heart disease: Father. Hypertension: Father. Health Status Family Member(s) Immunizations pneumococcal 13-valent conjugate vaccine: 0 unknown unit (10/23/16) pneumococcal 23-valent vaccine(Pneumovax: 0 unknown unit (06/03/15) pneumococcal 23-valent vaccine(Pneumovax: 0.5 mL (02/24/14) pneumococcal 23-valent vaccine(Pneumovax: 0 unknown unit (06/23/07) SARS-CoV-2 mRNA (tozinameran) vaccine: 0.3 unknown unit (05/28/21) SARS-CoV-2 mRNA (tozinameran) vaccine: 0.3 unknown unit (05/07/21) tetanus/diphtheria/pertussMUL.ORD![id number]: 0.5 mL (10/23/20) tetanus/diphtheria/pertussMUL.ORD![id number]: 0.5 mL (11/19/13) Digitally Signed by NICHOLAS CARDENAS BA, MD on 01/30/2025 01:52 PM Digitally Signed by Karen Donovan Licensed Scribe on 01/30/2025 09:08 AM Digitally Signed by Karen Donovan Licensed Scribe on 01/30/2025 10:07 AM Digitally Signed by NICHOLAS CARDENAS BA, MD on 01/30/2025 04:[address] [id number] Nephrology Consult note Date of Service January 30, 2025 Reason for Consultation End-stage renal disease History of Present Illness Patient is 49 years old. History of end-stage renal disease. He does home dialysis 5 days weekly. Last week he did treatments Friday. Friday he had AICD placement.He presented to an outside hospital with swelling and drainage from the AICD pocket. Cultures have been sent. He is afebrile. He does not have a leukocytosis. Today feels better. Appetite is intact. No nausea. No shortness of breath. No anginal chest pain. No edema. Review of Systems As above and otherwise negative Physical Exam Vitals and Measurements T: 36.7 C (Oral) TMIN: 36.6 C (Oral) TMAX: 37.0 C (Oral) HR: 75 (Monitored) RR: 16 BP: 144/78 SpO2:97% HT: 180.3 cm WT: 73.3 kg BMI: 22.55 Weight Dosing Weight: 73.3 kg (01/30/25) General: No distress on room air HEENT: Mucosa was moist, sclera anicteric, extraocular muscles intact, neck veins were flat, no carotid bruits Access: Right arm AV fistula with positive bruit and thrill. Multiple aneurysms. Lungs: Clear bilaterally with no crackles wheezes or rhonchi Heart: Regular with no murmurs rubs or gallops Abdomen: Positive bowel sounds, soft, no palpable masses Extremities: No edema, pulses 2+ in all 4 extremities Skin: No rashes, normal turgor Lab Results 01/30 06:39 WBC: 3.3 L Hgb: 7.4 L Hct: 22.6 L Platelet: 172 Neutrophil %: 89.6 H Glucose Level: 197 H Sodium Level: 135 L Potassium Level: 4.8 BUN: 60.0 H Creatinine Lvl (s): 12.75 H Assessment/Plan 1. End-stage renal disease: Patient does dialysis. Had a treatment yesterday. Will hold today and plan dialysis tomorrow. Labs reviewed. Euvolemic on exam. 2. ICD pocket hematoma versus infection. Cultures have been sent. Blood cultures no growth to date.On vancomycin. 3. Anemia: In part due to chronic kidney disease. Hemoglobin was below 7 upon arrival to an outsideER. He did receive 1 unit packed red blood cells. Hemoglobin 7.4 today. Continue ESAs with dialysis. 4. Heart failure with reduced ejection fraction: This is nonischemic cardiomyopathy. Continue to manage volume with dialysis. Problem List/Past Medical History Ongoing Abdominal pain Acute hypoxic respiratory failure AICD (automatic cardioverter/defibrillator) present Anemia Ankle injury Anxiety Assistance needed with transportation BMI 26.0-26.9,adult CAD in [place] artery Cardiomyopathy Chest pain Chronic renal failure Cigarette smoker COPD (chronic obstructive pulmonary disease) Coronary artery calcification, severe on CT 2024 Depression STRAUSS (dyspnea on exertion) End stage renal disease Glasses Headache HFrEF (heart failure with reduced ejection fraction) History of fall , about 10 feet into gravel History of MRSA infection Hx of hyperparathyroidism Hypertension Hypertensive urgency Hypokinesis on echo 2022 Impacted cerumen of right ear Left serous otitis media Low back pain with left-sided sciatica Malrotation colon Medically noncompliant Migraine Mitral regurgitation Need for isolation Pressure ulcer, stage 1 SOBOE (shortness of breath on exertion) Trigger finger, right middle finger Vascular dialysis catheter in place Weakness Wrist sign 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 Procedure/Surgical History Defibrillator: 01/24/15 Peritoneal procedure Kidney transplant Parathyroid Dialysis catheter Nasal septoplasty Cholecystectomy Parathyroidectomy Cholecystectomy Medications Inpatient cefTAZidime Dextrose 50% IV Push, 25 gram(s)= 50 mL, IV Push, AsDirected, PRN DuoNeb, 3 mL, Inhalation, q4hRT, PRN Flagyl, 500 mg= 1 tab(s), Oral, BID heparin, 5000 unit(s)= 1 mL, Subcutaneous, q8h magnesium sulfate for IV bolus, 2 gram(s)= 50 mL, IV Piggyback, AsDirected, PRN magnesium sulfate for IV bolus, 4 gram(s)= 100 mL, IV Piggyback, AsDirected, PRN magnesium sulfate for IV bolus melatonin, 6 mg= 2 tab(s), Oral, qHS, PRN Norman 325- 5 mg oral tablet, 1 tab(s), Oral, q4h, PRN Norman 325-10 mg oral tablet, 1 tab(s), Oral, q4h, PRN potassium chloride, 20 mEq= 1 tab(s), Oral, AsDirected, PRN potassium chloride, 40 mEq= 2 tab(s), Oral, AsDirected, PRN potassium chloride, 40 mEq= 2 tab(s), Oral, AsDirected, PRN potassium chloride bolus, 20 mEq= 100 mL, IV Piggyback, AsDirected, PRN Tylenol, 650 mg= 2 tab(s), Oral, q4h, PRN vancomycin, 1 EA, Miscellaneous, Daily Zofran, 4 mg= 2 mL, IV Push, q4h, PRN Home acetaminophen 325 mg oral capsule, 650 mg= 2 cap(s), Oral, q4h, PRN albuterol MDI (90 mcg/inh) CFC free inhalation aerosol, 1 puff(s), Inhalation, q4h, PRN, 3 refills aspirin 81 mg oral delayed release tablet, 81 mg= 1 tab(s), Oral, Daily, 3 refills atorvastatin 40 mg oral tablet, 40 mg= 1 tab(s), Oral, qDay, 3 refills calcium acetate 667 mg oral capsule, 2668 mg= 4 cap(s), Oral, TIDM Calmoseptine 0.44%-20.6% topical ointment, 1 kyleigh, Topical, TID, 2 refills, Not taking carvedilol 6.25 mg oral tablet, 6.25 mg= 1 tab(s), Oral, BID, 3 refills hydrALAZINE 25 mg oral tablet, 25 mg= 1 tab(s), Oral, TID, 3 refills isosorbide mononitrate 30 mg oral tablet, extended release, 60 mg= 2 tab(s), Oral, qDayAC, 3 refills Renvela 800 mg oral tablet (NF), 800 mg= 1 tab(s), Oral, TIDM Symbicort 80 mcg-4.5 mcg/inh Inhaler, 2 puff(s), Inhalation, BID, 2 refills Allergies penicillin (Moderate) Anaphylaxis, rash Contrast dye Skin rash, Fever fentaNYL Agitation propranolol Agitation Social History Smoking Status - 11/25/2017 Current every day smoker Alcohol - Denies Alcohol Use, 01/16/2017 Use: Never., 12/07/2018 Home/Environment Living situation: Home/Independent. Domestic Concerns: Denies. Current Home Treatments Hemodialysis., 01/26/2025 Nutrition/Health Type of diet: Regular. Caffeine intake amount: 3-4 servings/day. Appetite Fair. Eating DifficultiesNone., 01/26/2025 Substance Abuse - Denies Substance Abuse, 01/16/2017 Use: Never., 12/07/2018 Tobacco Nicotine Use: Former smoker, quit more than 30 days ago., 01/14/2025 Family History Diabetes mellitus: Father. Heart disease: Father. Hypertension: Father. Health Status Family Member(s) Immunizations pneumococcal 13-valent conjugate vaccine: 0 unknown unit (10/23/16) pneumococcal 23-valent vaccine(Pneumovax: 0 unknown unit (06/03/15) pneumococcal 23-valent vaccine(Pneumovax: 0.5 mL (02/24/14) pneumococcal 23-valent vaccine(Pneumovax: 0 unknown unit (06/23/07) SARS-CoV-2 mRNA (tozinameran) vaccine: 0.3 unknown unit (05/28/21) SARS-CoV-2 mRNA (tozinameran) vaccine: 0.3 unknown unit (05/07/21) tetanus/diphtheria/pertussMUL.ORD![id number]: 0.5 mL (10/23/20) tetanus/diphtheria/pertussMUL.ORD![id number]: 0.5 mL (11/19/13) Digitally Signed by CHAYA OWENS MD on 01/30/2025 11:[address] [facility] [id number] History and physical note Date of Service 01/30/2025 09:43:17 History of Present Illness Patient is a 49-year-old male with medical history significant for ESRD on IHD (follows Dr. Wiley), nonischemic cardiomyopathy EF 30% 2022 improved to 50% September 2024, mild nonobstructive CAD 2022, s/p ICD 2014, mild (V-max 2.4, YARI 1.6, DVI 0.5), moderate MR, mild PHTN, mild, hypertension, current tobacco use and hyperlipidemia. He had his ICD generator change on 01/26/2025 (performedby Sarthak Obregon). Follows Dr. [place] --Functionally independent, lives with his . Patient stated he underwent ICD generator change on 01/26/2025, postprocedure he had mild pain however it increased and became more tender along with worsening swelling around the device. He noticed yellowish drainage from the lateral side of the dressing yesterday. Denies any fever or chills. He is on hemodialysis (Friday, Friday, Friday) however because of his procedure on Friday he got hisdialysis on and Friday. He had CT chest with contrast at [facility] showing large collection of fluid left anterior chest wall surrounding pacemaker with locules of air with concerns for abscess formation. Concern for right lower and middle lobe airspace disease. Trace effusion on the right. Noted to have acute on chronic anemia with hemoglobin 6.7 (B/L Hgb 7-8), received transfusion at [facility]. CRP 3.1. HS troponin 40 (similar to previous level). EKG reviewed showing sinus rhythm at a rate of 87 bpm with left axis deviation with incomplete LBBB pattern. Review of Systems Negative except as mentioned in HPI Physical Exam Vitals and Measurements T: 36.7 C (Oral) TMIN: 36.6 C (Oral) TMAX: 37.0 C (Oral) HR: 75 (Monitored) RR: 16 BP: 144/78 SpO2:97% HT: 180.3 cm WT: 73.3 kg BMI: 22.55 Weight Dosing Weight: 73.3 kg (01/30/25) General: Appears stated age and in no acute distress HEENT: EOMI, PERRLA, anicteric, mucous membranes moist Neck: No JVD Chest: Dressing present left upper chest with edema around the dressing with mild erythema and warmth with no discharge noted Respiratory: CTAB with nonlabored breathing Cardiovascular: Regular rhythm with normal S1-S2 with systolic murmur RUSB Abdomen: Soft, BS present Extremities: Trace edema b/l LE, AV fistula right upper extremity Integumentary: Warm and dry Neurological: AO x 3, speech normal, no FND, strength and sensation grossly intact. Lab Results 01/30 06:39 WBC: 3.3 L Hgb: 7.4 L Hct: 22.6 L Platelet: 172 Neutrophil %: 89.6 H Glucose Level: 197 H Sodium Level: 135 L Potassium Level: 4.8 BUN: 60.0 H Creatinine Lvl (s): 12.75 H Assessment/Plan # ICD pocket hematoma versus infection # Acute on chronic anemia (B/L 7-8) # Recent ICD generator change 01/26/2025 # S/p dual-chamber ICD 2014 ([employer]) follows Dr. Rodriguez # Nonischemic cardiomyopathy with improved EF 50%, not in decompensation # Nonobstructive CAD per cath 2022 # ESRD on iHD (M/W/F) follows Dr. Serna # Mild MS (V-max 2.4, YARI 1.6, LVOT VTI 0.5) # Moderate MR # Hypertension # Current tobacco use # Hyperlipidemia Cardiac testing: Echo 12/20/2024 showed EF 40 to 45% with mild diffuse hypokinesis, systolic function mildly reduced,GI DD. Mild . Mild MR. Echo 09/24/2022 showed EF 30% with severely reduced systolic function with diastolic dysfunction. Mild and mild MR. LHC/exercise 2022 showed mild CAD mild Patient is a 49-year-old male with above-mentioned medical history presented to [facility] for pain and swelling around the ICD pocket, he recently had generator change on 01/26/2025, since then the pain has been getting worse along with the swelling and has become more tender. He had noticed some discharge from the lateral side yesterday. On exam he was noted to have significant tenderness aroundwith swelling and mild erythema, no discharge was noted, dressing seemed intact. He does not have any systemic signs of infection at this time. CRP mildly elevated at 3.1. CT reviewed showing soft tissue edema with air. He is noted to have hemoglobin of 6.7 at [facility], received a transfusion, repeat CBC pending. Plan: - Started patient on vancomycin, obtain blood cultures showed no growth so far - ID, Nephro and EP are consulted. - He has noted to have acute anemia with Hgb 6.7 (baseline 7-8), received PRBC transfusion at [facility], repeat CBC pending, no overt signs of bleeding noted. - Resume home medications This note was transcribed using [employer] dictation software; please excuse any inadvertent typographical or grammatical errors. The plan was reviewed with the attending, who is in agreement. Problem List/Past Medical History Ongoing Abdominal pain Acute hypoxic respiratory failure AICD (automatic cardioverter/defibrillator) present Anemia Ankle injury Anxiety Assistance needed with transportation BMI 26.0-26.9,adult CAD in [place] artery Cardiomyopathy Chest pain Chronic renal failure Cigarette smoker COPD (chronic obstructive pulmonary disease) Coronary artery calcification, severe on CT 2024 Depression STRAUSS (dyspnea on exertion) End stage renal disease Glasses Headache HFrEF (heart failure with reduced ejection fraction) History of fall , about 10 feet into gravel History of MRSA infection Hx of hyperparathyroidism Hypertension Hypertensive urgency Hypokinesis on echo 2022 Impacted cerumen of right ear Left serous otitis media Low back pain with left-sided sciatica Malrotation colon Medically noncompliant Migraine Mitral regurgitation Need for isolation Pressure ulcer, stage 1 SOBOE (shortness of breath on exertion) Trigger finger, right middle finger Vascular dialysis catheter in place Weakness Wrist sign 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44%-20.6% topical ointment 1 kyleigh, Topical, TID carvedilol 6.25 mg oral tablet 6.25 mg = 1 tab(s), Oral, BID hydrALAZINE 25 mg oral tablet 25 mg = 1 tab(s), Oral, TID isosorbide mononitrate 30 mg oral tablet, extended release 60 mg = 2 tab(s), Oral, qDayAC Renvela 800 mg oral tablet (NF) 800 mg = 1 tab(s), Oral, TIDM Symbicort 80 mcg-4.5 mcg/inh Inhaler 2 puff(s), Inhalation, BID Allergies penicillin (Moderate) Anaphylaxis, rash Contrast dye Skin rash, Fever fentaNYL Agitation propranolol Agitation Social History Smoking Status - 11/25/2017 Current every day smoker Alcohol - Denies Alcohol Use, 01/16/2017 Use: Never., 12/07/2018 Home/Environment Living situation: Home/Independent. Domestic Concerns: Denies. Current Home Treatments Hemodialysis., 01/26/2025 Nutrition/Health Type of diet: Regular. Caffeine intake amount: 3-4 servings/day. Appetite Fair. Eating DifficultiesNone., 01/26/2025 Substance Abuse - Denies Substance Abuse, 01/16/2017 Use: Never., 12/07/2018 Tobacco Nicotine Use: Former smoker, quit more than 30 days ago., 01/14/2025 Family History Diabetes mellitus: Father. Heart disease: Father. Hypertension: Father. Health Status Family Member(s) Immunizations pneumococcal 13-valent conjugate vaccine: 0 unknown unit (10/23/16) pneumococcal 23-valent vaccine(Pneumovax: 0 unknown unit (06/03/15) pneumococcal 23-valent vaccine(Pneumovax: 0.5 mL (02/24/14) pneumococcal 23-valent vaccine(Pneumovax: 0 unknown unit (06/23/07) SARS-CoV-2 mRNA (tozinameran) vaccine: 0.3 unknown unit (05/28/21) SARS-CoV-2 mRNA (tozinameran) vaccine: 0.3 unknown unit (05/07/21) tetanus/diphtheria/pertussMUL.ORD![id number]: 0.5 mL (10/23/20) tetanus/diphtheria/pertussMUL.ORD![id number]: 0.5 mL (11/19/13) Code Status Code Status - Ordered -- 01/30/25 1:48:00 EDT, Full Code, Constant Order Digitally Signed by ROB JOSEPH MD on 01/30/2025 09:[address] [facility] [id number] Note* Exam Date Time Procedure Performing Provider Status 01/30/25 12:02 AM Electrocardiogram - EKG - CV BOGDAN PONCE MD; Auth (Verified) ECG Final Report SINUS RHYTHM LEFT ANTERIOR FASCICULAR BLOCK LVH WITH SECONDARY REPOLARIZATION ABNORMALITY PROLONGED QT INTERVAL Electronic Signature: BOGDAN PONCE MD 01/30/2025 13:03:[address] [facility] [id number] Note* Exam Date Time Procedure Performing Provider Status 01/29/25 8:[address] Thorax w/ Contrast NAYELI ESPAÑA; Auth (Verified) [id number] ORIGINAL EXAMINATION: CT OF THE CHEST WITH CONTRAST 01/29/2025 8:17 pm TECHNIQUE: CT of the chest was performed with the administration of intravenous contrast. Multiplanar reformatted images are provided for review. Automated exposure control, iterative reconstruction, and/or weight based adjustment of the mA/kV was utilized to reduce the radiation dose to as low as reasonably achievable. COMPARISON: 12/18/2024, 01/04/2025 HISTORY: ORDERING SYSTEM PROVIDED HISTORY: Reason for Exam: possible infection upper left chest post pacemaker installation on Friday. pt is having drainage and pain at surgical sight. pt unable to raise left arm Soft tissue infection suspected, chest, no prior imaging FINDINGS: Mediastinum: The aorta and main pulmonary artery are normal in caliber. Mild cardiomegaly is similar to prior exam. There are no pathologically enlarged mediastinal lymph nodes. There is no pericardial effusion. Atherosclerotic calcifications are seen within the coronary arteries and aorta. Lungs/pleura: Interval improvement of right pleural effusion. There is still a trace amount of right pleural fluid. Again demonstrated is right-sided pleural thickening and right upper peritoneal thickening. Improving right middle lobe and right lower lobe airspace disease. Septal thickening is improved compared to prior exam. No pneumothorax. No mass is seen. There are a few scattered calcified granulomas. Upper Abdomen: No acute process in the visualized portions of the upper abdomen. Atrophic left kidney. Similar appearing peritoneal thickening around the liver. Soft Tissues/Bones: No acute osseous abnormality. Mild degenerative changes of the thoracic spine. There is a large collection in the left chest wall near the pacemaker site which is difficult to measure and incompletely visualized on this CT due to streak artifacts from the pacemaker. Locules of air are seen superiorly within the collection. IMPRESSION: 1. Large collection in the left anterior chest wall surrounds the pacemaker and contains locules of air, concerning for an abscess. 2. Slight interval improvement of right lower and middle lobe airspace disease. 3. Probably resolved edema with trace right effusion. 4. Other stable findings as above. I have personally reviewed the images of this examination and agree with the resident's findings and interpretation. Interpreted by: Nayeli España DO Preliminary Report By: Daron Olivo Electronically signed By Nayeli España DO Dictated Date: 01/29/2025 8:30:31 PM Prelim Date: 01/29/2025 8:49:51 PM Sign Date: 01/29/2025 9:04:32 PM Ordering Provider: PARTH PONCE [facility]08-09-2025 Note* Exam Date Time Procedure Performing Provider Status 01/29/25 7:35 PM EKG [ED AOH] - CV PARTH PONCE MD; A [facility] (Verified) ECG Final Report Sinus rhythm Probable left atrial enlargement Left anterior fascicular block LVH with secondary repolarization abnormality Borderline prolonged QT interval Electronic Signature: PARTH PONCE MD 01/29/2025 19:47:08 [facility]08-06-2025 Hospital Discharge instructions Patient Education 01/26/2025 12:54:04 3- Pacemaker/ICD generator replacement (03/2018) (CUSTOM) PACEMAKER/ICD GENERATOR REPLACEMENT Discharge Instructions WOUND CARE DO NOT place any ointments, creams, powders or lotions on the incision. Call your pacemaker/ICD doctor s office immediately if you have: Increased redness Drainage from the incision Opening of the incision Increased pain, warmth or swelling on or around the site Increased temperature above 100.5 Call if you experience dizziness, palpitations or a fast or slow heart rate If an Aquacel Ag surgical dressing has been applied: You may take a shower as long as the dressing is sealed well to your skin. You may remove the bandage in 7 days: To do this, press down on your skin with one hand and carefully lift an edge of the bandage with your other hand. Stretch the dressing to break the adhesive sealand gently pull it off. If the bandage becomes loose or falls off in less than 5 days, you will not be able to take any showers or baths. You must keep the incision dry for the first 5 days after your procedure. DO NOT clean the incision with any soap, water, peroxide or alcohol. Leave it dry and uncovered for 5 days, then you may shower using soap and water. Wear loose fitting clothes over the incisional site to avoid irritation until it is healed. MEDICATIONS Take antibiotics before dental work as prescribed by your physician (if prescribed) Take medications as directed until prescription is finished Avoid alcohol while taking medications You may take Tylenol (acetaminophen) for incisional pain or discomfort. ACTIVITY Avoid activity that requires pushing or pulling for the first week. Please move your operation side arm freely after the first week. Document Released: 06/09/2006 Document Revised: 05/26/2013 Document Reviewed: 06/10/2014 ExitCare Patient Information 2015 [employer]. This information is not intended to replace advicegiven to you by your health care provider. Make sure you discuss any questions you have with your health care provider. 01/26/2025 12:53:46 General Anesthesia, Adult, Care After General Anesthesia, Adult, Care After This sheet gives you information about how to care for yourself after your procedure. Your health care provider may also give you more specific instructions. If you have problems or questions, contact your health care provider. What can I expect after the procedure? After the procedure, the following side effects are common: Pain or discomfort at the IV site. Nausea. Vomiting. Sore throat. Trouble concentrating. Feeling cold or chills. Weak or tired. Sleepiness and fatigue. Soreness and body aches. These side effects can affect parts of the body that were not involved in surgery. Follow these instructions at home: For at least 24 hours after the procedure: Have a responsible adult stay with you. It is important to have someone help care for you until youare awake and alert. Rest as needed. Do not: ?Participate in activities in which you could fall or become injured. ?Drive. ?Use heavy machinery. ?Drink alcohol. ?Take sleeping pills or medicines that cause drowsiness. ?Make important decisions or sign legal documents. ?Take care of children on your own. Eating and drinking Follow any instructions from your health care provider about eating or drinking restrictions. When you feel hungry, start by eating small amounts of foods that are soft and easy to digest (bland), such as toast. Gradually return to your regular diet. Drink enough fluid to keep your urine pale yellow. If you vomit, rehydrate by drinking water, juice, or clear broth. General instructions If you have sleep apnea, surgery and certain medicines can increase your risk for breathing problems. Follow instructions from your health care provider about wearing your sleep device: ?Anytime you are sleeping, including during daytime naps. ?While taking prescription pain medicines, sleeping medicines, or medicines that make you drowsy. Return to your normal activities as told by your health care provider. Ask your health care provider what activities are safe for you. Take daud-pjy-ukhnwlm and prescription medicines only as told by your health care provider. If you smoke, do not smoke without supervision. Keep all follow-up visits as told by your health care provider. This is important. Contact a health care provider if: You have nausea or vomiting that does not get better with medicine. You cannot eat or drink without vomiting. You have pain that does not get better with medicine. You are unable to pass urine. You develop a skin rash. You have a fever. You have redness around your IV site that gets worse. Get help right away if: You have difficulty breathing. You have chest pain. You have blood in your urine or stool, or you vomit blood. Summary After the procedure, it is common to have a sore throat or nausea. It is also common to feel tired. Have a responsible adult stay with you for the first 24 hours after general anesthesia. It is important to have someone help care for you until you are awake and alert. When you feel hungry, start by eating small amounts of foods that are soft and easy to digest (bland), such as toast. Gradually return to your regular diet. Drink enough fluid to keep your urine pale yellow. Return to your normal activities as told by your health care provider. Ask your health care provider what activities are safe for you. This information is not intended to replace advice given to you by your health care provider. Make sure you discuss any questions you have with your health care provider. Document Released: 09/15/2001 Document Revised: 06/12/2018 Document Reviewed: 01/23/2018 [employer] Patient Education 2020 [employer]. Follow Up Care 01/12/2025 10:07:30 With:KD RODRIGUEZ MD Address: [address] [facility] [address] [place] [address] [phone] When:02/10/2025 09:00:00 Comments:This is your incision check in the Device Clinic. With:KD RODRIGUEZ MD Address: [address] [facility] [address] [place] [address]- [phone] When:04/28/2025 09:30:00 Comments:This is your hospital follow up in the Device Clinic. [facility] 08-06-2025 Discharge summary Date of Service 01/26/2025 12:50:39 Discharge Diagnosis Dual Chamber ICD Generator Change Nonischemic Cardiomyopathy Mild Aortic Stenosis Moderate Mitral Regurgitation Mild Pulmonary Hypertension Hypertension Dyslipidemia End Stage Renal Disease on Hemodialysis Tobacco Use Disorder Hospital Course This 49-year-old male with a history of nonischemic cardiomyopathy (EF previously 30% in 2022, improved to 50% in September 2024), mild aortic stenosis, moderate mitral regurgitation, mild pulmonary hypertension, hypertension, dyslipidemia, ESRD on hemodialysis, and tobacco use presented for ICD generator change. The patient's device was nearing end-of-life with 6% battery remaining. He reported chest pain and swelling at the ICD site, but no signs of infection were noted on exam. Due to concerns for possible impending erosion and near end-of-life for the generator decision was made to proceed with generator change. Patient underwent successful dual-chamber ICD generator change. He is significant calcification of the ICD pocket. There were significant varicosities in bleeders subcutaneously. Postprocedure patient had a pressure dressing which was observed for about 4 hours postop and was discharged to home with pressure dressing removed. Intraoperative testing showed excellent R wave sensing at 9.6 mV. RV lead impedance was 714ohms andthreshold was 0.9 V at 0.4 ms. There is no indication of lead malfunction. Allergies penicillin (Moderate) Anaphylaxis, rash Contrast dye Skin rash, Fever fentaNYL Agitation propranolol Agitation Procedures Dual-chamber ICD generator change Consults No qualifying data available. Imaging Results and Diagnostics None Objective Vitals and Measurements T: 36.3 C (Skin) TMIN: 36.3 C (Skin) TMAX: 36.7 C (Oral) HR: 76 RR: 16 BP: 142/80 SpO2: 96% HT: 182.9 cm WT: 72.4 kg Weight Dosing Weight: 72.4 kg (01/26/25) After pressure dressing removal left pectoral incision dressing was dry and intact. There is no evidence of bleeding, hematoma or drainage. There is mild postoperative swelling noted. Pending Labs and Studies None Code Status No qualifying data available. Admission Date January 26, 2025 Discharge Date January 26, 2025 Patient Instructions Remove dressing in 7 days. May shower and bath. Do not soak dressing in water for prolong periods of time. May drive starting tomorrow. Medications Unchanged acetaminophen (acetaminophen 325 mg oral capsule)2 cap by mouth every 4 hours as needed for pain. albuterol (albuterol MDI (90 mcg/inh) CFC free inhalation aerosol)1 puff(s) by inhalation every 4 hours as needed as needed for wheezing. Refills: 3. aspirin (aspirin 81 mg oral delayed release tablet)1 tab(s) by mouth every day. Refills: 3. atorvastatin (atorvastatin 40 mg oral tablet)1 tab(s) by mouth once a day. Refills: 3. budesonide-formoterol (Symbicort 80 mcg-4.5 mcg/inh Inhaler)2 puff(s) by inhalation two (2) times aday. Refills: 2. calcium acetate (calcium acetate 667 mg oral capsule)4 cap by mouth three (3) times a day with meals. carvedilol (carvedilol 6.25 mg oral tablet)1 tab(s) by mouth two (2) times a day. Refills: 3. hydrALAZINE (hydrALAZINE 25 mg oral tablet)1 tab(s) by mouth three (3) times a day. Refills: 3. isosorbide mononitrate (isosorbide mononitrate 30 mg oral tablet, extended release)2 tab(s) by mouth once a day before a meal. Refills: 3. menthol-zinc oxide topical (Calmoseptine 0.44%-20.6% topical ointment)1 application Topical three (3) times a day. clean affected area before application. Refills: 2. sevelamer (Renvela 800 mg oral tablet (NF))1 tab(s) by mouth three (3) times a day with meals. Follow Up Follow Up with KD RODRIGUEZ MD When:02/10/2025 09:00 AM EDT Where:[address] [facility] [address] [place] [address]- [phone] Additional Information: This is your incision check in the Device Clinic. Follow Up with KD RODRIGUEZ MD When:04/28/2025 09:30 AM EST Where:[address] [facility] [address] [place] [address]- [phone] Additional Information: This is your hospital follow up in the Device Clinic. Follow Up Appointments No qualifying data available. Follow Up Labs/Studies Discharge Labs No Follow-up Labs Discharge Studies No Follow-up Studies Discharge Diet No qualifying data available. Discharge Activity No qualifying data available. Condition on Discharge Stable Readmission Risk/Palliative Score No qualifying data available. Discharge Disposition Home Digitally Signed by KD RODRIGUEZ MD on 01/26/2025 12:[address] [facility] [address] [id number] Summary of episode note Discharge Instructions Thank you for allowing [facility] to assist you with your healthcare needs. The following is importantdischarge information regarding your hospital visit. Your Care Team MONIE ALSTON DO Your Diagnosis COPD (chronic obstructive pulmonary disease) What to do next Scheduled Follow-Up Appointments Appointment Type When With Where Contact Information StatusCV Incision Check 02/10/2025 09:00 AM EDT [facility] Confirmed CV Office Procedure ICD 04/28/2025 09:30 AM EST [facility] Confirmed CV Remote Procedure HM 07/29/2025 06:45 PM EST [facility] Confirmed PC Wellness Annual 08/26/2025 12:30 PM EST [facility] [address] [place] [address] Confirmed Follow Up Appointments Follow Up with KD RODRIGUEZ MD When:02/10/2025 09:00 AM EDT Where:[address] [facility] [address] [place] [address]- [phone] Additional Information: This is your incision check in the Device Clinic. Follow Up with KD RODRIGUEZ MD When:04/28/2025 09:30 AM EST Where:[address] [facility] [address] [facility] [place] [address]- [phone] Additional Information: This is your hospital follow up in the Device Clinic. The Following Activity and Diet Have Been Ordered for You Discharge Driving Restrictions - Ordered -- * Other, specify in special instructions, No driving for the remainder of the day post-procedure., 01/26/25 12:53:00 EDT Discharge Diet - Ordered -- Follow the post-operative/post-procedure diet instructions provided by your physician's office.,01/26/25 12:53:00 EDT Allergies penicillin (Moderate) Anaphylaxis, rash Contrast dye Skin rash, Fever fentaNYL Agitation propranolol Agitation Medications Please ask your primary doctor or pharmacist before taking any other medication not listed, including over the counter drugs, herbal medications, vitamins and or supplements as they may interact withyour home medications. What How Much When Why Instructions Last Dose Unchanged acetaminophen (acetaminophen 325 mg oral capsule) 2 cap by mouth Every 4 hours as needed for for pain Unchanged albuterol (albuterol MDI (90 mcg/ inh) CFC free inhalation aerosol) 1 puff(s) by inhalation Every 4 hours as needed for as needed for wheezing Unchanged aspirin (aspirin 81 mg oral delayed release tablet) 1 tab(s) by mouth Every day Unchanged atorvastatin (atorvastatin 40 mg oral tablet) 1 tab(s) by mouth Once a day Unchanged budesonide-formoterol (Symbicort 80 mcg-4.5 mcg/ inh Inhaler) 2 puff(s) by inhalation Two (2) times a day COPD (chronic obstructive pulmonary disease) Unchanged calcium acetate (calcium acetate 667 mg oral capsule) 4 cap by mouth Three (3) times a day with meals Unchanged carvedilol (carvedilol 6.25 mg oral tablet) 1 tab(s) by mouth Two (2) times a day Unchanged hydrALAZINE (hydrALAZINE 25 mg oral tablet) 1 tab(s) by mouth Three (3) times a day Unchanged isosorbide mononitrate (isosorbide mononitrate 30 mg oral tablet, extended release) 2 tab(s) by mouth Once a day before a meal Unchanged menthol-zinc oxide topical (Calmoseptine 0.44%-20.6% topical ointment) 1 application Topical Three (3) times a day Pressure ulcer, stage 1 clean affected area before application Unchanged sevelamer (Renvela 800 mg oral tablet (NF)) 1 tab(s) by mouth Three (3) times a day with meals Please take this list to your next doctor s visit. Bring all medications you take, including over the counter medications, herbals and other supplements with you to your doctor s visit. Patients and families are reminded to discard old lists and to update any records with all medication providers or retail pharmacies. Education Materials PACEMAKER/ICD GENERATOR REPLACEMENT Discharge Instructions WOUND CARE DO NOT place any ointments, creams, powders or lotions on the incision. Call your pacemaker/ICD doctor s office immediately if you have: Increased redness Drainage from the incision Opening of the incision Increased pain, warmth or swelling on or around the site Increased temperature above 100.5 Call if you experience dizziness, palpitations or a fast or slow heart rate If an Aquacel Ag surgical dressing has been applied: You may take a shower as long as the dressing is sealed well to your skin. You may remove the bandage in 7 days: To do this, press down on your skin with one hand and carefully lift an edge of the bandage with your other hand. Stretch the dressing to break the adhesive sealand gently pull it off. If the bandage becomes loose or falls off in less than 5 days, you will not be able to take any showers or baths. You must keep the incision dry for the first 5 days after your procedure. DO NOT clean the incision with any soap, water, peroxide or alcohol. Leave it dry and uncovered for 5 days, then you may shower using soap and water. Wear loose fitting clothes over the incisional site to avoid irritation until it is healed. MEDICATIONS Take antibiotics before dental work as prescribed by your physician (if prescribed) Take medications as directed until prescription is finished Avoid alcohol while taking medications You may take Tylenol (acetaminophen) for incisional pain or discomfort. ACTIVITY Avoid activity that requires pushing or pulling for the first week. Please move your operation side arm freely after the first week. Document Released: 06/09/2006 Document Revised: 05/26/2013 Document Reviewed: 06/10/2014 ExitCare Patient Information 2015 [employer]. This information is not intended to replace advicegiven to you by your health care provider. Make sure you discuss any questions you have with your health care provider. General Anesthesia, Adult, Care After This sheet gives you information about how to care for yourself after your procedure. Your health care provider may also give you more specific instructions. If you have problems or questions, contact your health care provider. What can I expect after the procedure? After the procedure, the following side effects are common: Pain or discomfort at the IV site. Nausea. Vomiting. Sore throat. Trouble concentrating. Feeling cold or chills. Weak or tired. Sleepiness and fatigue. Soreness and body aches. These side effects can affect parts of the body that were not involved in surgery. Follow these instructions at home: For at least 24 hours after the procedure: Have a responsible adult stay with you. It is important to have someone help care for you until youare awake and alert. Rest as needed. Do not: ? Participate in activities in which you could fall or become injured. ? Drive. ? Use heavy machinery. ? Drink alcohol. ? Take sleeping pills or medicines that cause drowsiness. ? Make important decisions or sign legal documents. ? Take care of children on your own. Eating and drinking Follow any instructions from your health care provider about eating or drinking restrictions. When you feel hungry, start by eating small amounts of foods that are soft and easy to digest (bland), such as toast. Gradually return to your regular diet. Drink enough fluid to keep your urine pale yellow. If you vomit, rehydrate by drinking water, juice, or clear broth. General instructions If you have sleep apnea, surgery and certain medicines can increase your risk for breathing problems. Follow instructions from your health care provider about wearing your sleep device: ? Anytime you are sleeping, including during daytime naps. ? While taking prescription pain medicines, sleeping medicines, or medicines that make you drowsy. Return to your normal activities as told by your health care provider. Ask your health care provider what activities are safe for you. Take psig-leg-eyguora and prescription medicines only as told by your health care provider. If you smoke, do not smoke without supervision. Keep all follow-up visits as told by your health care provider. This is important. Contact a health care provider if: You have nausea or vomiting that does not get better with medicine. You cannot eat or drink without vomiting. You have pain that does not get better with medicine. You are unable to pass urine. You develop a skin rash. You have a fever. You have redness around your IV site that gets worse. Get help right away if: You have difficulty breathing. You have chest pain. You have blood in your urine or stool, or you vomit blood. Summary After the procedure, it is common to have a sore throat or nausea. It is also common to feel tired. Have a responsible adult stay with you for the first 24 hours after general anesthesia. It is important to have someone help care for you until you are awake and alert. When you feel hungry, start by eating small amounts of foods that are soft and easy to digest (bland), such as toast. Gradually return to your regular diet. Drink enough fluid to keep your urine pale yellow. Return to your normal activities as told by your health care provider. Ask your health care provider what activities are safe for you. This information is not intended to replace advice given to you by your health care provider. Make sure you discuss any questions you have with your health care provider. Document Released: 09/15/2001 Document Revised: 06/12/2018 Document Reviewed: 01/23/2018 [employer] Patient Education 2020 [employer] Additional Information VACCINATE! IT SAVES LIVES! Members of the community who have not yet received the COVID-19 vaccine and would like to receive it can visit one of [facility] vaccine clinics. There are many vaccine clinic locations within the [facility]. For locations and available times, please visit https://gettheshot.coronavirus.[place].gov/. It is important to note that some COVID mobile vaccine clinics are held outdoors and may be canceled in rainy or stormy conditions. To learn more about pediatric vaccinations (ages 5-11), we invite you to visit the [facility] webpage. https://www.[facility].org/pages/2475-Hwjsn-Cpplvpxfyaw-Heizrsnyqo-Uvsfn-Cra stions.htmlTo learn more about the COVID-19 vaccine, we invite you to visit the CDC website for a list of frequently asked questions.https://www.cdc.gov/coronavirus/2019-ncov/vaccines/faq.html [facility] Patient Portal Access Instructions: Stay connected with your healthcare team and access your personal medical information anytime with the [facility] Patient Portal. Please follow the directions below to create your [employer] account: 1.Access the email account you provided upon registration to the hospital/physician office.2.Look for an invitation email from [facility].3.Open the email and access the invitation link: AcceptInvitation to [facility].4.Fill in the required luis to create your account. To access your account, visit [email or web address]. Click the blue button labeled Access Patient Portal and then log in with the username and password that you created in the steps above. You will be able to view your test results, lab results, a summary of your visits, upcoming appointments and more. There is also a convenient messaging option where you can send secure messages to your p rovider. In addition, you will have the ability to download any documents or summaries to your computer and/or send the information securely to a physician. Remember that your healthcare information is confidential, so carefully consider who you will allowto register on the [facility] Patient Portal for access to your information. You can also access the [facility] Patient Portal on the [employer] [facility] kyleigh. Simply click on Patient Portal and then log into your account. If you would like to receive a full copy of your medical records, please contact the [facility] Medical Records Department by calling [phone], Friday through Friday between 8 a.m. and 4:30 p.m. HOW TO SAFELY DISPOSE OF PRESCRIPTION MEDICATIONS Please use one of the following methods to safely dispose of your unused medications. 1.Use a drug disposal kit: the drug disposal pouch allows you to safely discard your old and unuseddrugs. Ask your nurse to give you one when you are discharged.2.Visit a local take-back location: Many local pharmacies and police departments have programs that collect old and unwanted prescriptiondrugs. Call your local pharmacy or go to http://Kardium.Golgi/8U6Li1q to find one close to you.3.Make use of household items: Use cat litter or old coffee grounds to dispose medications if other options arenot available. Mix your drugs with these household products, seal them in an airtight container andthrow it into the garbage. Call [facility]: [phone] to be sure your drugs can be disposed of in this way. Some medicines may require a different approach.4.Never flush your medications down the toilet. IF YOU HAVE BEEN PRESCRIBED AN OPIOID FOR PAIN If you have been prescribed an opioid (such as hydrocodone, oxycodone or morphine), it is critical to understand the possible side effects and risks of opioid pain medications. Even when taken as directed, opioids can have several side effects including: Tolerance, meaning you might need to take more of a medication for the same pain relief. Nausea, vomiting and/or constipation. Sleepiness, dizziness, dry mouth, confusion, depression or itching. Physical dependence, meaning you have withdrawal symptoms when a medication is stopped, can develop within a few days. KNOW YOUR RESPONSIBILITIES It is important to know exactly how much and how often to take the opioid pain medications you are prescribed. Never take opioids in higher amounts or more often than prescribed. Do not combine opioids with alcohol or other drugs that cause drowsiness, such as benzodiazepines, also known as benzos, including diazepam and alprazolam, muscle relaxants or sleep aids. Never sell or share prescription opioids. This is illegal. Store opioids in a secure place and out of reach of others (including children, family, friends and visitors). The last page of this document has been signed and retained as a CHART COPY. Signatures Patient Education Materials 3- Pacemaker/ICD generator replacement (03/2018) (CUSTOM) General Anesthesia, Adult, Care After Medication Leaflets My discharge plan and instructions have been reviewed and explained to me and IZAHRA CHAD K understand my current condition and have read and understand these discharge instructions. I have received a written copy of the plan/instructions. If I have questions, I am aware that I should contact my doctor. 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 Anesthesiology Consult note Patient: CARLITOS SWEENEY Age: 49 years Sex: Male : 1975 Associated Diagnoses: None Author: CARMEN HOUSE DO Postoperative Information Post Operative Info: Post op day: Post Anesthesia Care Unit. Patient location: PACU. Assessment Postanesthesia assessment Vitals: Vital signs from flowsheet : Vital Signs 01/26/2025 11:45 EDT Peripheral Pulse Rate 75 bpm Respiratory Rate 16 br/min 01/26/2025 10:55 EDT Respiratory Rate 16 br/min 01/26/2025 10:25 EDT Peripheral Pulse Rate 67 bpm Respiratory Rate 16 br/min Systolic Blood Pressure Non-Invasive 141 mmHg HI Diastolic Blood Pressure Non-Invasive 84 mmHg Blood Pressure Method Automatic Blood Pressure Location Left arm 01/26/2025 9:55 EDT Heart Rate Monitored 73 bpm Respiratory Rate 17 br/min Systolic Blood Pressure Non-Invasive 142 mmHg HI Diastolic Blood Pressure Non-Invasive 87 mmHg Blood Pressure Method Automatic Blood Pressure Location Left arm 01/26/2025 9:49 EDT Heart Rate Monitored 76 bpm Respiratory Rate 16 br/min Systolic Blood Pressure Non-Invasive 161 mmHg HI Diastolic Blood Pressure Non-Invasive 87 mmHg Mean Arterial Pressure (NBP) 109 mmHg 01/26/2025 9:35 EDT Heart Rate Monitored 77 bpm Respiratory Rate 14 br/min Systolic Blood Pressure Non-Invasive 158 mmHg HI Diastolic Blood Pressure Non-Invasive 77 mmHg Mean Arterial Pressure (NBP) 102 mmHg 01/26/2025 9:21 EDT Temperature Skin 36.3 DegC Heart Rate Monitored 77 bpm Respiratory Rate 15 br/min Systolic Blood Pressure Non-Invasive 140 mmHg Diastolic Blood Pressure Non-Invasive 6 mmHg Mean Arterial Pressure (NBP) 97 mmHg 01/26/2025 9:20 EDT Respiratory Rate - Anes 0 br/min br/min 01/26/2025 9:15 EDT Respiratory Rate - Anes 0 br/min br/min 01/26/2025 9:13 EDT Systolic Blood Pressure Non-Invasive 123 mmHg mmHg Diastolic Blood Pressure Non-Invasive 76 mmHg mmHg 01/26/2025 9:10 EDT Heart Rate Monitored 79 bpm bpm Respiratory Rate - Anes 13 br/min br/min Systolic Blood Pressure Non-Invasive 123 mmHg mmHg Diastolic Blood Pressure Non-Invasive 75 mmHg mmHg 01/26/2025 9:07 EDT Systolic Blood Pressure Non-Invasive 127 mmHg mmHg Diastolic Blood Pressure Non-Invasive 75 mmHg mmHg 01/26/2025 9:05 EDT Heart Rate Monitored 78 bpm bpm Respiratory Rate - Anes 13 br/min br/min 01/26/2025 9:04 EDT Systolic Blood Pressure Non-Invasive 123 mmHg mmHg Diastolic Blood Pressure Non-Invasive 72 mmHg mmHg 01/26/2025 9:01 EDT Systolic Blood Pressure Non-Invasive 120 mmHg mmHg Diastolic Blood Pressure Non-Invasive 73 mmHg mmHg 01/26/2025 9:00 EDT Heart Rate Monitored 78 bpm bpm Respiratory Rate - Anes 12 br/min br/min 01/26/2025 8:58 EDT Systolic Blood Pressure Non-Invasive 121 mmHg mmHg Diastolic Blood Pressure Non-Invasive 73 mmHg mmHg 01/26/2025 8:55 EDT Heart Rate Monitored 79 bpm bpm Respiratory Rate - Anes 14 br/min br/min Systolic Blood Pressure Non-Invasive 122 mmHg mmHg Diastolic Blood Pressure Non-Invasive 73 mmHg mmHg 01/26/2025 8:52 EDT Systolic Blood Pressure Non-Invasive 122 mmHg mmHg Diastolic Blood Pressure Non-Invasive 71 mmHg mmHg 01/26/2025 8:50 EDT Heart Rate Monitored 79 bpm bpm Respiratory Rate - Anes 13 br/min br/min 01/26/2025 8:49 EDT Systolic Blood Pressure Non-Invasive 116 mmHg mmHg Diastolic Blood Pressure Non-Invasive 71 mmHg mmHg 01/26/2025 8:46 EDT Systolic Blood Pressure Non-Invasive 124 mmHg mmHg Diastolic Blood Pressure Non-Invasive 79 mmHg mmHg 01/26/2025 8:45 EDT Heart Rate Monitored 78 bpm bpm Respiratory Rate - Anes 11 br/min br/min 01/26/2025 8:43 EDT Systolic Blood Pressure Non-Invasive 114 mmHg mmHg Diastolic Blood Pressure Non-Invasive 73 mmHg mmHg 01/26/2025 8:40 EDT Heart Rate Monitored 78 bpm bpm Respiratory Rate - Anes 10 br/min br/min Systolic Blood Pressure Non-Invasive 121 mmHg mmHg Diastolic Blood Pressure Non-Invasive 84 mmHg mmHg 01/26/2025 8:37 EDT Systolic Blood Pressure Non-Invasive 122 mmHg mmHg Diastolic Blood Pressure Non-Invasive 74 mmHg mmHg 01/26/2025 8:35 EDT Heart Rate Monitored 78 bpm bpm Respiratory Rate - Anes 14 br/min br/min 01/26/2025 8:34 EDT Systolic Blood Pressure Non-Invasive 130 mmHg mmHg Diastolic Blood Pressure Non-Invasive 82 mmHg mmHg 01/26/2025 8:31 EDT Systolic Blood Pressure Non-Invasive 136 mmHg mmHg Diastolic Blood Pressure Non-Invasive 82 mmHg mmHg 01/26/2025 8:30 EDT Heart Rate Monitored 79 bpm bpm Respiratory Rate - Anes 11 br/min br/min 01/26/2025 8:28 EDT Systolic Blood Pressure Non-Invasive 131 mmHg mmHg Diastolic Blood Pressure Non-Invasive 82 mmHg mmHg 01/26/2025 8:25 EDT Heart Rate Monitored 75 bpm bpm Respiratory Rate - Anes 12 br/min br/min Systolic Blood Pressure Non-Invasive 147 mmHg mmHg Diastolic Blood Pressure Non-Invasive 85 mmHg mmHg 01/26/2025 8:22 EDT Systolic Blood Pressure Non-Invasive 158 mmHg mmHg Diastolic Blood Pressure Non-Invasive 89 mmHg mmHg 01/26/2025 8:20 EDT Heart Rate Monitored 80 bpm bpm Respiratory Rate - Anes 20 br/min br/min 01/26/2025 8:19 EDT Systolic Blood Pressure Non-Invasive 162 mmHg mmHg Diastolic Blood Pressure Non-Invasive 93 mmHg mmHg 01/26/2025 8:16 EDT Systolic Blood Pressure Non-Invasive 160 mmHg mmHg Diastolic Blood Pressure Non-Invasive 94 mmHg mmHg 01/26/2025 8:15 EDT Heart Rate Monitored 83 bpm bpm Respiratory Rate - Anes 12 br/min br/min 01/26/2025 8:13 EDT Systolic Blood Pressure Non-Invasive 162 mmHg mmHg Diastolic Blood Pressure Non-Invasive 94 mmHg mmHg 01/26/2025 8:10 EDT Heart Rate Monitored 84 bpm bpm Respiratory Rate - Anes 22 br/min br/min 01/26/2025 8:09 EDT Systolic Blood Pressure Non-Invasive 177 mmHg mmHg Diastolic Blood Pressure Non-Invasive 90 mmHg mmHg 01/26/2025 8:05 EDT Respiratory Rate - Anes 12 br/min br/min (Modified) 01/26/2025 5:30 EDT Temperature Oral 36.7 DegC Peripheral Pulse Rate 82 bpm Respiratory Rate 18 br/min Systolic Blood Pressure Non-Invasive 179 mmHg HI Diastolic Blood Pressure Non-Invasive 95 mmHg HI Blood Pressure Method Automatic Blood Pressure Location Left arm , Oxygen Therapy : Oxygen Therapy & Oxygenation Information 01/26/2025 11:45 EDT Oxygen Saturation 96 % 01/26/2025 11:40 EDT Oxygen Therapy Room air 01/26/2025 10:55 EDT Oxygen Therapy Room air 01/26/2025 10:25 EDT Oxygen Therapy Room air Oxygen Saturation 96 % 01/26/2025 9:55 EDT Oxygen Therapy Room air Oxygen Saturation 97 % 01/26/2025 9:49 EDT Oxygen Therapy Room air Oxygen Saturation 97 % 01/26/2025 9:35 EDT Oxygen Therapy Nasal cannula 0L-6L Oxygen Saturation 100 % Oxygen Flow Rate 2 L/min 01/26/2025 9:21 EDT Oxygen Therapy Nonrebreather mask Oxygen Saturation 100 % Oxygen Flow Rate 4 L/min 01/26/2025 9:10 EDT Oxygen Saturation 100 % % 01/26/2025 9:05 EDT Oxygen Saturation 100 % % 01/26/2025 9:00 EDT Oxygen Saturation 100 % % 01/26/2025 8:55 EDT Oxygen Saturation 100 % % 01/26/2025 8:50 EDT Oxygen Saturation 100 % % 01/26/2025 8:45 EDT Oxygen Saturation 100 % % 01/26/2025 8:40 EDT Oxygen Saturation 100 % % 01/26/2025 8:35 EDT Oxygen Saturation 100 % % 01/26/2025 8:30 EDT Oxygen Saturation 100 % % 01/26/2025 8:25 EDT Oxygen Saturation 100 % % 01/26/2025 8:20 EDT Oxygen Saturation 100 % % 01/26/2025 8:15 EDT Oxygen Saturation 100 % % 01/26/2025 8:10 EDT Oxygen Saturation 93 % % 01/26/2025 5:30 EDT Oxygen Therapy Room air Oxygen Saturation 97 % . Mental status: at preoperative baseline. Respiratory function: respirations are non-labored, Stable. Respiratory support: none. CV function: Stable. Cardiovascular support: none. Pain: Satisfactory. Nausea status: Satisfactory. Postoperative hydration status: within normal limits. Notes: Patient is sufficiently recovered from anesthesia to participate in the evaluation. No follow-up care needed. No complications post-anesthesia.. Digitally Signed by CARMEN HOUSE DO on 01/26/2025 11:[address] [facility] [id number] Anesthesiology Consult note Patient: CARLITOS SWEENEY Age: 49 years Sex: Male : 1975 Associated Diagnoses: None Author: CARMEN HOUSE DO Preoperative Information NPO greater than 8 hours food and greater than 2 hours liquid Anesthesia history Patient's history: negative. Health Status Allergies: Allergic Reactions (Selected) Moderate Penicillin- Anaphylaxis and rash. Severity Not Documented Contrast dye- Skin rash and fever. FentaNYL- Agitation. Propranolol- Agitation., Allergies (4) ActiveSeverityReaction penicillinModeraterash, Anaphylaxis Contrast dyeFever, Skin rash fentaNYLAgitation propranololAgitation Current medications: (Selected) Prescriptions Prescribed Calmoseptine 0.44%-20.6% topical ointment: 1 kyleigh, Topical, TID, clean affected area before application, 113 gram(s), 2 Refill(s) Symbicort 80 mcg-4.5 mcg/inh Inhaler: 2 puff(s), Inhalation, BID, 10.2 gram(s), 2 Refill(s) albuterol MDI (90 mcg/inh) CFC free inhalation aerosol: 1 puff(s), Inhalation, q4h, PRN: as needed for wheezing, 18 gram(s), 3 Refill(s) aspirin 81 mg oral delayed release tablet: 81 mg, 1 tab(s), Oral, Daily, 90 tab(s), 3 Refill(s) atorvastatin 40 mg oral tablet: 40 mg, 1 tab(s), Oral, qDay, 100 tab(s), 3 Refill(s) carvedilol 6.25 mg oral tablet: 6.25 mg, 1 tab(s), Oral, BID, 180 tab(s), 3 Refill(s) hydrALAZINE 25 mg oral tablet: 25 mg, 1 tab(s), Oral, TID, 270 tab(s), 3 Refill(s) isosorbide mononitrate 30 mg oral tablet, extended release: 60 mg, 2 tab(s), Oral, qDayAC, 180 tab(s), 3 Refill(s) Documented Medications Documented Renvela 800 mg oral tablet (NF): 800 mg, 1 tab(s), Oral, TIDM acetaminophen 325 mg oral capsule: 650 mg, 2 cap(s), Oral, q4h, PRN: for pain, 0 Refill(s) calcium acetate 667 mg oral capsule: 2,668 mg, 4 cap(s), Oral, TIDM, 0 Refill(s), No qualifying data available Problem list: Medical Abdominal pain / SNOMED CT 79269516 / Confirmed Acute hypoxic respiratory failure / SNOMED CT 431082692 / Confirmed Anemia / SNOMED CT 039543447 / Confirmed Anxiety / SNOMED CT 69008469 / Confirmed AICD (automatic cardioverter/defibrillator) present / SNOMED CT 1307120628 / Confirmed Hypokinesis on echo 2022 / SNOMED CT 436857396 / Confirmed Coronary artery calcification, severe on CT 2024 / SNOMED CT 1255355310 / Confirmed Cardiomyopathy / SNOMED CT 444394871 / Confirmed Chest pain / SNOMED CT 48905660 / Confirmed COPD (chronic obstructive pulmonary disease) / SNOMED CT 99362571 / Confirmed Chronic renal failure / SNOMED CT 944394777 / Confirmed Cigarette smoker / SNOMED CT 037931527 / Confirmed CAD in [place] artery / SNOMED CT 13522633 / Confirmed Depression / SNOMED CT 754544074 / Confirmed Vascular dialysis catheter in place / SNOMED CT 3932961546 / Confirmed SOBOE (shortness of breath on exertion) / SNOMED CT 887680778 / Confirmed STRAUSS (dyspnea on exertion) / SNOMED CT 877772812 / Confirmed End stage renal disease / SNOMED CT 45199236 / Confirmed Assistance needed with transportation / SNOMED CT 063465645 / Confirmed Glasses / SNOMED CT 3721755119 / Confirmed Hx of hyperparathyroidism / SNOMED CT 992776467 / Confirmed Headache / SNOMED CT 31281754 / Confirmed HFrEF (heart failure with reduced ejection fraction) / SNOMED CT 4479960900 / Confirmed History of fall 1999s, about 10 feet into gravel / SNOMED CT 0121682377 / Confirmed History of MRSA infection / SNOMED CT 4827575878 / Confirmed Hypertension / SNOMED CT [id number] / Confirmed Hypertensive urgency / SNOMED CT 5397194951 / Confirmed Impacted cerumen of right ear / SNOMED CT 06620646 / Confirmed Need for isolation / SNOMED CT 4822169962 / Confirmed Ankle injury / SNOMED CT 717613373 / Confirmed Low back pain with left-sided sciatica / SNOMED CT 247019331 / Confirmed Malrotation colon / SNOMED CT 09625324 / Confirmed Migraine / SNOMED CT 06820123 / Confirmed Mitral regurgitation / SNOMED CT 99350397 / Confirmed BMI 26.0-26.9,adult / SNOMED CT 7234808034 / Confirmed Medically noncompliant / SNOMED CT 1645736528 / Confirmed Pressure ulcer, stage 1 / SNOMED CT 2126766112 / Confirmed Left serous otitis media / SNOMED CT 925753867 / Confirmed Trigger finger, right middle finger / SNOMED CT 497454105 / Confirmed Weakness / SNOMED CT 92156060 / Confirmed Wrist sign / SNOMED CT 27707455 / Confirmed Resolved: Endocarditis / SNOMED CT 35627073 Resolved: 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) / SNOMED CT 9635054608 Canceled: Cholecystectomy / SNOMED CT 20149731 Canceled: Heart failure / SNOMED CT 988739755 Canceled: High blood pressure / SNOMED CT 88156471 Canceled: Kidney dialysis / SNOMED CT 407054993 Canceled: Kidney transplant / SNOMED CT 435961007 Canceled: Kidney transplant / SNOMED CT 946952468 Canceled: Low back pain with right-sided sciatica / SNOMED CT 0024691181 Canceled: Pneumonia / SNOMED CT 470478341 Canceled: Shortness of breath / SNOMED CT [id number], Active Problems (41) Abdominal pain Acute hypoxic respiratory failure AICD (automatic cardioverter/defibrillator) present Anemia Ankle injury Anxiety Assistance needed with transportation BMI 26.0-26.9,adult CAD in [place] artery Cardiomyopathy Chest pain Chronic renal failure Cigarette smoker COPD (chronic obstructive pulmonary disease) Coronary artery calcification, severe on CT 2024 Depression STRAUSS (dyspnea on exertion) End stage renal disease Glasses Headache HFrEF (heart failure with reduced ejection fraction) History of fall , about 10 feet into gravel History of MRSA infection Hx of hyperparathyroidism Hypertension Hypertensive urgency Hypokinesis on echo 2022 Impacted cerumen of right ear Left serous otitis media Low back pain with left-sided sciatica Malrotation colon Medically noncompliant Migraine Mitral regurgitation Need for isolation Pressure ulcer, stage 1 SOBOE (shortness of breath on exertion) Trigger finger, right middle finger Vascular dialysis catheter in place Weakness Wrist sign Histories Past Medical History: Active Hypertension ([id number]) Comments: 03/01/2014 EDT 9:56 MADONNA Bernal Echo 02/22/14 EF 40-45%.Trivial MR,TR. 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 03/01/2014 EDT 11:50 MAINE SANCHEZ MD Last hemodialysis 02/28/14, full run per pt 04/26/2015 EST 12:27 MADONNA Thorpe Cleared for surgery 04/26/15. Anxiety (15383177) Comments: 03/01/2014 EDT 11:50 MAINE SANCHEZ MD active without cardiac limitations, EKG NSR without changes suggestive for ischemia Weakness (77898924) End stage renal disease (79354951) Comments: 08/09/2015 EST 12:48 MADONNA Thorpe Last hemodialysis 08/08/15. Headache (71263030) Migraine (12892132) Glasses (8831405666) Depression (556813932) Need for isolation (6607034496) Comments: 04/26/2015 EST 12:10 MADONNA Thorpe MRSA AICD (automatic cardioverter/defibrillator) present (3441137018) Comments: 04/26/2015 EST 12:26 MADONNA Thorpe The device is a Biotronik.May use a magnet per cardiology clearance. 08/09/2015 EST 12:51 MADONNA Thorpe Device placed 01/2015 is a Biotronik Itrevia 7 LISBETH,model [id number];serial [id number] 08/09/2015 EST 12:52 MADONNA Thorpe Patient states device has never fired. Abdominal pain (02363562) Vascular dialysis catheter in place (1715862937) Comments: 08/02/2015 EST 12:10 MADONNA Sewell dialysis cath right chest Malrotation colon (23039945) Comments: 08/02/2015 EST 13:26 MADONNA Sewell noted on ct abd 07/02/2015 COPD (chronic obstructive pulmonary disease) (71349429) SOBOE (shortness of breath on exertion) (950498891) Cardiomyopathy (666963940) Comments: 08/09/2015 EST 12:47 MADONNA Thorpe Echo 12/2014 EF 20%. 06/02/2024 EST 15:17 CARISA BIANCHI PERFORMANCE INSTRUCTOR-MANUFACTURING COORDINATOR Echo 09/2023 EF 30% Cigarette smoker (203626983) Medically noncompliant (2293896363) Comments: 08/02/2015 EST 14:28 MADONNA Sewell NOTED ON DR HERNANDEZ'S OFFICE NOTES Hx of hyperparathyroidism (411504545) Comments: 08/02/2015 EST 14:29 MADONNA Sewell HYPERPARATHYROIDISM - DR HERNANDEZ NOTES Resolved 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) (7451701696): Onset on 02/21/2014 at 38 years. Resolved. Comments: 2022 EDT 8:37 EDT - MADONNA Crawford Removed disease alert on 2022 per Infection Prevention Policy patient has met criteria Endocarditis (84169241): Resolved. Family History: Diabetes mellitus Father Hypertension Father Heart disease Father Procedure history: Pacemaker ([id number]) on 01/24/2015 at 39 Years. Defibrillator (30718098) on 01/24/2015 at 39 Years. Comments: 12/28/2024 16:14 Millicent Camarillo RN Biotronik generator left chest Itrevia [id number] Biotronik RA Setrox S 60 [id number] Biotronik RV Linox Smart [id number] Cholecystectomy (58475895). Parathyroidectomy (57388654). Nasal septoplasty (43346144). Cholecystectomy (58753018). History of kidney transplant ([id number]). Comments: 08/23/2014 6:35 MADONNA Sanchez x 2 Hx of kidney transplant ([id number]). Dialysis catheter (2187454099). Kidney transplant (877715269). Parathyroid (7130662). Peritoneal procedure (2234414739). Comments: 08/02/2015 13:27 MADONNA Sewell catheters inserted and remvoed Social History: Social & Psychosocial Habits Alcohol 01/26/2025Risk Assessment: Denies Alcohol Use 01/26/2025 Use: Never Substance Abuse 01/26/2025Risk Assessment: Denies Substance Abuse 01/26/2025 Use: Never Tobacco 01/26/2025 Tobacco Use: Former smoker, quit more Comment: Quir smoking 11/2024 - 01/14/2025 10:24 - Rivera Mcclellan LPN Home/Environment 01/26/2025 Living situation: Home/Independent Domestic Concerns Denies Current Home Treatments Hemodialysis Nutrition/Health 01/26/2025 Type of diet: Regular Caffeine intake amount: 3-4 servings/day Appetite Fair Eating Difficulties None Physical Examination Vital Signs (last 24 hrs) Last Charted Temp Oral36.7 DegC (JAN 26 05:30) Heart Rate Rrhdehtaj10 bpm (JAN 26 08:20) XJF056 mmHg (JAN 26 08:22) DBP89 mmHg (JAN 26 08:22) General: Alert and oriented. Airway: Mallampati classification: II (soft palate, fauces, uvula visible). Dentition Evaluation: Intact. Respiratory: Lungs are clear to auscultation, Respirations are non-labored. Cardiovascular: Normal rate, Regular rhythm. Heart Sounds: Normal. Neurologic: Alert, Oriented. Review / Management Results review: Labs (Last four charted values) WBC 4.9(JAN 26) Hgb L 8.7(JAN 26) Hct L 26.8(JAN 26) Plt 175(JAN 26) Na 140(JAN 26) K 4.5(JAN 26) CO2 26(JAN 26) Cl 98(JAN 26) Cr H 15.10(JAN 26) BUN H 76.0(JAN 26) Glucose 91(JAN 26) Ca L 8.3(JAN 26) . Documentation reviewed: Current records. Assessment and Plan Citizen Of [place] Society of Anesthesiologists (ASA) physical status classification: Class III. Anesthetic Preoperative Plan Premedication: intravenous. Anesthetic technique: MAC. Induction: intravenously. Maintenance airway: Mask. Postoperative pain management: Per surgeon. Informed consent: signed by patient. Notes: This is a late entry documentation due to involvement in patient care and inability to document prior to the start of the anesthetic. I completed my preoperative assessment, discussion of anesthetic plan and risks with the patient prior to this documentation. However, I was not able to complete the documentation until a later time.. Digitally Signed by CARMEN HOUSE DO on 01/26/2025 08:[address] [facility] [id number] Note* Exam Date Time Procedure Performing Provider Status 01/26/25 8:02 AM ICD Generator Change KD RODRIGUEZ; Auth (Verified) [facility] [id number] Note* Exam Date Time Procedure Performing Provider Status 01/26/25 6:15 AM Electrocardiogram - EKG - CV Nav FREEMAN MD; Auth (Verified) ECG Final Report SINUS RHYTHM LEFT ANTERIOR FASCICULAR BLOCK LVH WITH SECONDARY REPOLARIZATION ABNORMALITY PROLONGED QT INTERVAL Electronic Signature: TERENCE FREEMAN MD 01/26/2025 23:36:[address] [facility] [id number] Note* Exam Date Time Procedure Performing Provider Status 01/04/25 2:08 PM XR Chest 2 Views AJ DHALIWAL MD; [facility] (Verified) [id number] ORIGINAL EXAMINATION: TWO XRAY VIEWS OF THE CHEST01/04/2025 2:08 pm COMPARISON: Chest x-ray 12/18/2024 HISTORY: ORDERING SYSTEM PROVIDED HISTORY: Reason for Exam: CP, hx ICD FINDINGS: Cardiomediastinal contours are within normal limits. ICD is present overlying the left thorax with leads terminating in the right atrium and the right ventricle. There is no evidence of lead fracture. Chronic interstitial right lower lobe consolidation and scarring with a small underlying effusion. Right posterolateral 8th rib hyperdense lesion measuring 6.4 x 8.0 mm may represent nodule versus sclerotic focus. No pneumothorax or pleural effusion. No acute osseous abnormalities. IMPRESSION: Chronic appearing right lower lobe consolidation and or scarring with underlying effusion. Hyperdense lesion measuring 6.4 x 8.0 mm may represent nodule versus sclerotic focus. Recommend radiographic follow-up to resolution. I have personally reviewed the images of this examination and agree with the resident's findings and interpretation. Interpreted by: Aj Dhaliwal MD Preliminary Report By: Christopher Merida Electronically signed By Aj Dhaliwal MD Dictated Date: 01/04/2025 3:25:44 PM Prelim Date: 01/04/2025 4:06:33 PM Sign Date: 01/04/2025 4:06:33 PM Ordering Provider: CARL GRAVES [facility] [id number] Hospital Discharge instructions Patient Education 12/20/2024 20:17:16 Hypertension, Adult, Llaf-nk-Powe Hypertension, Adult Hypertension is another name for high blood pressure. High blood pressure forces your heart to workharder to pump blood. This can cause problems over time. There are two numbers in a blood pressure reading. There is a top number (systolic) over a bottom number (diastolic). It is best to have a blood pressure that is below 120/80. Healthy choices can help lower your blood pressure, or you may need medicine to help lower it. What are the causes? The cause of this condition is not known. Some conditions may be related to high blood pressure. What increases the risk? Smoking. Having type 2 diabetes mellitus, high cholesterol, or both. Not getting enough exercise or physical activity. Being overweight. Having too much fat, sugar, calories, or salt (sodium) in your diet. Drinking too much alcohol. Having long-term (chronic) kidney disease. Having a family history of high blood pressure. Age. Risk increases with age. Race. You may be at higher risk if you are . Gender. Men are at higher risk than women before age 45. After age 65, women are at higher risk than men. Having obstructive sleep apnea. Stress. What are the signs or symptoms? High blood pressure may not cause symptoms. Very high blood pressure (hypertensive crisis) may cause: ?Headache. ?Feelings of worry or nervousness (anxiety). ?Shortness of breath. ?Nosebleed. ?A feeling of being sick to your stomach (nausea). ?Throwing up (vomiting). ?Changes in how you see. ?Very bad chest pain. ?Seizures. How is this treated? This condition is treated by making healthy lifestyle changes, such as: ?Eating healthy foods. ?Exercising more. ?Drinking less alcohol. Your health care provider may prescribe medicine if lifestyle changes are not enough to get your blood pressure under control, and if: ?Your top number is above 130. ?Your bottom number is above 80. Your personal target blood pressure may vary. Follow these instructions at home: Eating and drinking If told, follow the DASH eating plan. To follow this plan: ?Fill one half of your plate at each meal with fruits and vegetables. ?Fill one fourth of your plate at each meal with whole grains. Whole grains include whole-wheat pasta, brown rice, and whole-grain bread. ?Eat or drink low-fat dairy products, such as skim milk or low-fat yogurt. ?Fill one fourth of your plate at each meal with low-fat (lean) proteins. Low- fat proteins include fish, chicken without skin, eggs, beans, and tofu. ?Avoid fatty meat, cured and processed meat, or chicken with skin. ?Avoid pre-made or processed food. Eat less than 1,500 mg of salt each day. Do not drink alcohol if: ?Your doctor tells you not to drink. ?You are , may be , or are planning to become . If you drink alcohol: ?Limit how much you use to: ?0 1 drink a day for women. ?0 2 drinks a day for men. ?Be aware of how much alcohol is in your drink. In the [place] one drink equals one 12 oz bottle of beer (355 mL), one 5 oz glass of wine (148 mL), or one 1 oz glass of hard liquor (44 mL). Lifestyle Work with your doctor to stay at a healthy weight or to lose weight. Ask your doctor what the best weight is for you. Get at least 30 minutes of exercise most days of the week. This may include walking, swimming, or biking. Get at least 30 minutes of exercise that strengthens your muscles (resistance exercise) at least 3 days a week. This may include lifting weights or doing Pilates. Do not use any products that contain nicotine or tobacco, such as cigarettes, e- cigarettes, and chewing tobacco. If you need help quitting, ask your doctor. Check your blood pressure at home as told by your doctor. Keep all follow-up visits as told by your doctor. This is important. Medicines Take rvth-jsb-zvsyrcv and prescription medicines only as told by your doctor. Follow directions carefully. Do not skip doses of blood pressure medicine. The medicine does not work as well if you skip doses.Skipping doses also puts you at risk for problems. Ask your doctor about side effects or reactions to medicines that you should watch for. Contact a doctor if you: Think you are having a reaction to the medicine you are taking. Have headaches that keep coming back (recurring). Feel dizzy. Have swelling in your ankles. Have trouble with your vision. Get help right away if you: Get a very bad headache. Start to feel mixed up (confused). Feel weak or numb. Feel faint. Have very bad pain in your: ?Chest. ?Belly (abdomen). Throw up more than once. Have trouble breathing. Summary Hypertension is another name for high blood pressure. High blood pressure forces your heart to work harder to pump blood. For most people, a normal blood pressure is less than 120/80. Making healthy choices can help lower blood pressure. If your blood pressure does not get lower with healthy choices, you may need to take medicine. This information is not intended to replace advice given to you by your health care provider. Make sure you discuss any questions you have with your health care provider. Document Released: 11/25/2008 Document Revised: 02/17/2019 Document Reviewed: 02/17/2019 [employer] Patient Education 2020 [employer]. 12/20/2024 20:16:44 Acute Respiratory Distress Syndrome, Adult Acute Respiratory Distress Syndrome, Adult Acute respiratory distress syndrome is a life-threatening condition in which fluid collects in the lungs. This prevents the lungs from filling with air and passing oxygen into the blood. This can cause the lungs and other vital organs to fail. The condition usually develops following an infection, illness, surgery, or injury. What are the causes? This condition may be caused by: An infection, such as sepsis or pneumonia. A serious injury to the head or chest. Severe bleeding from an injury. A major surgery. Breathing in harmful chemicals or smoke. Blood transfusions. A blood clot in the lungs. Breathing in vomit (aspiration). Near-drowning. Inflammation of the pancreas (pancreatitis). A drug overdose. What are the signs or symptoms? Sudden shortness of breath and rapid breathing are the main symptoms of this condition. Other symptoms may include: A fast or irregular heartbeat. Skin, lips, or fingernails that look blue (cyanosis). Confusion. Tiredness or loss of energy. Chest pain, particularly while taking a breath. Coughing. Restlessness or anxiety. Fever. This is usually present if there is an underlying infection, such as pneumonia. How is this diagnosed? This condition is diagnosed based on: Your symptoms. Medical history. A physical exam. During the exam, your health care provider will listen to your heart and check forcrackling or wheezing sounds in your lungs. You may also have other tests to confirm the diagnosis and measure how well your lungs are working.These may include: Measuring the amount of oxygen in your blood. Your health care provider will use two methods to do this procedure: ?A small device (pulse oximeter) that is placed on your finger, earlobe, or toe. ?An arterial blood gas test. A sample of blood is taken from an artery and tested for oxygen levels. Blood tests. Chest X-rays or CT scans to look for fluid in the lungs. Taking a sample of your sputum to test for infection. Heart test, such as an echocardiogram or electrocardiogram. This is done to rule out any heart problems (such as heart failure) that may be causing your symptoms. Bronchoscopy. During this test, a thin, flexible tube with a light is passed into the mouth or nose, down the windpipe, and into the lungs. How is this treated? Treatment depends on the cause of your condition. The goal is to support you while your lungs heal and the underlying cause is treated. Treatment may include: Oxygen therapy. This may be done through: ?A tube in your nose or a face mask. ?A ventilator. This device helps move air into and out of your lungs through a breathing tube that is inserted into your mouth or nose. Continuous positive airway pressure (CPAP). This treatment uses mild air pressure to keep the airways open. A mask or other device will be placed over your nose or mouth. Tracheostomy. During this procedure, a small cut is made in your neck to create an opening to your windpipe. A breathing tube is placed directly into your windpipe. The breathing tube is connected toa ventilator. This is done if you have problems with your airway or if you need a ventilator for a long period of time. Positioning you to lie on your stomach (prone position). Medicines, such as: ?Sedatives to help you relax. ?Blood pressure medicines. ?Antibiotics to treat infection. ?Blood thinners to prevent blood clots. ?Diuretics to help prevent excess fluid. Fluids and nutrients given through an IV tube. Wearing compression stockings on your legs to prevent blood clots. Extra corporeal membrane oxygenation (ECMO). This treatment takes blood outside your body, adds oxygen, and removes carbon dioxide. The blood is then returned to your body. This treatment is only used in severe cases. Follow these instructions at home: Take cynj-myv-zshiqfk and prescription medicines only as told by your health care provider. Do not use any products that contain nicotine or tobacco, such as cigarettes and e-cigarettes. If you need help quitting, ask your health care provider. Limit alcohol intake to no more than 1 drink per day for non women and 2 drinks per day formen. One drink equals 12 oz of beer, 5 oz of wine, or 1 oz of hard liquor. Ask friends and family to help you if daily activities make you tired. Attend any pulmonary rehabilitation as told by your health care provider. This may include: ?Education about your condition. ?Exercises. ?Breathing training. ?Counseling. ?Learning techniques to conserve energy. ?Nutrition counseling. Keep all follow-up visits as told by your health care provider. This is important. Contact a health care provider if: You become short of breath during activity or while resting. You develop a cough that does not go away. You have a fever. Your symptoms do not get better or they get worse. You become anxious or depressed. Get help right away if: You have sudden shortness of breath. You develop sudden chest pain that does not go away. You develop a rapid heart rate. You develop swelling or pain in one of your legs. You cough up blood. You have trouble breathing. Your skin, lips, or fingernails turn blue. These symptoms may represent a serious problem that is an emergency. Do not wait to see if the symptoms will go away. Get medical help right away. Call your local emergency services (911 in the [place] Do not drive yourself to the hospital. Summary Acute respiratory distress syndrome is a life-threatening condition in which fluid collects in the lungs, which leads the lungs and other vital organs to fail. This condition usually develops following an infection, illness, surgery, or injury. Sudden shortness of breath and rapid breathing are the main symptoms of acute respiratory distress syndrome. Treatment may include oxygen therapy, continuous positive airway pressure (CPAP), tracheostomy, lying on your stomach (prone position), medicines, fluids and nutrients given through an IV tube, compression stockings, and extra corporeal membrane oxygenation (ECMO). This information is not intended to replace advice given to you by your health care provider. Make sure you discuss any questions you have with your health care provider. Document Released: 06/09/2006 Document Revised: 05/22/2018 Document Reviewed: 05/26/2017 [employer] Patient Education 2020 [employer]. 12/20/2024 20:13:55 Eating Plan for Dialysis, Ttld-tj-Dpbv Eating Plan for Dialysis Dialysis is a treatment that cleans your blood. It is used when your kidneys are damaged. When you need dialysis, you should watch what you eat. This is because some nutrients can build up in your blood between treatments and make you sick. Your doctor or diet specialist (dietitian) will: Tell you what nutrients you should include or avoid. Tell you how much of these nutrients you should get each day. Help you plan meals. Tell you how much to drink each day. What are tips for following this plan? Reading food labels Check food labels for: ?Potassium. This is found in milk, fruits, and vegetables. ?Phosphorus. This is found in milk, cheese, beans, nuts, and carbonated beverages. ?Salt (sodium). This is in processed meats, cured meats, ready-made frozen meals, canned vegetables, and salty snack foods. Try to find foods that are low in potassium, phosphorus, and sodium. Look for foods that are labeled sodium free, reduced sodium, or low sodium. Shopping Do not buy whole-grain and high-fiber foods. Do not buy or use salt substitutes. Do not buy processed foods. Cooking Drain all fluid from cooked vegetables and canned fruits before you eat them. Before you cook potatoes, cut them into small pieces. Then boil them in unsalted water. Try using herbs and spices that do not contain sodium to add flavor. Meal planning Most people on dialysis should try to eat: 6-11 servings of grains each day. One serving is equal to 1 slice of bread or cup of cooked rice orpasta. 2 3 servings of low-potassium vegetables each day. One serving is equal to cup. 2 3 servings of low-potassium fruits each day. One serving is equal to cup. Protein, such as meat, poultry, fish, and eggs. Talk with your doctor or dietitian about the right amount and type of protein to eat. cup of dairy each day. General information Follow your doctor's instructions about how much to drink. You may be told to: ?Write down what you drink. ?Write down the foods you eat that are made mostly from water, such as gelatin and soups. ?Drink from small cups. Take vitamin and mineral supplements only as told by your doctor. Take hynf-hia-kvonubw and prescription medicines only as told by your doctor. What foods can I eat? Fruits Apples. Fresh or frozen berries. Fresh or canned pears, peaches, and pineapple. Grapes. Plums. Vegetables Fresh or frozen broccoli, carrots, and green beans. Cabbage. Cauliflower. Celery. Cucumbers. Eggplant. Radishes. Zucchini. Grains White bread. White rice. Cooked cereal. Unsalted popcorn. Tortillas. Pasta. Meats and other proteins Fresh or frozen beef, pork, chicken, and fish. Eggs. Dairy Cream cheese. Heavy cream. Ricotta cheese. Beverages Apple cider. Cranberry juice. Grape juice. Lemonade. Black coffee. Rice milk (that is not enriched or fortified). Seasonings and condiments Herbs. Spices. Jam and jelly. Honey. Sweets and desserts Sherbet. Cakes. Cookies. Fats and oils Zillah oil, canola oil, and safflower oil. Other foods Non-dairy creamer. Non-dairy whipped topping. Homemade broth without salt. The items listed above may not be a complete list of foods and beverages you can eat. Contact your dietitian for more options. What foods should I avoid? Fruits Star fruit. Bananas. Oranges. Kiwi. Nectarines. Prunes. Melon. Dried fruit. Avocado. Vegetables Potatoes. Beets. Tomatoes. Winter squash and pumpkin. Asparagus. Spinach. Parsnips. Grains Whole-grain bread. Whole-grain pasta. High-fiber cereal. Meats and other proteins Canned, smoked, and cured meats. Packaged lunch meat. Sardines. Nuts and seeds. Peanut butter. Beans and legumes. Dairy Milk. Buttermilk. Yogurt. Cheese and cottage cheese. Processed cheese spreads. Beverages Dix juice. Prune juice. Carbonated soft drinks. Seasonings and condiments Salt. Salt substitutes. Soy sauce. Sweets and desserts Ice cream. Chocolate. Candied nuts. Fats and oils Butter. Margarine. Other foods Ready-made frozen meals. Canned soups. The items listed above may not be a complete list of foods and beverages you should avoid. Contact your dietitian for more information. Summary If you are having dialysis, it is important to watch what you eat. Certain nutrients and wastes canbuild up in your blood and cause you to get sick. Your dietitian will help you make an eating plan that meets your needs. Avoid foods that are high in potassium, salt (sodium), and phosphorus. Restrict fluids as told by your doctor or dietitian. This information is not intended to replace advice given to you by your health care provider. Make sure you discuss any questions you have with your health care provider. Document Released: 12/08/2012 Document Revised: 08/26/2018 Document Reviewed: 06/10/2018 [employer] Patient Education 2020 [employer]. 12/20/2024 20:13:02 Angina, Berx-an-Vozv Angina Angina is very bad discomfort or pain in the chest, neck, arm, jaw, or back. The discomfort is caused by a lack of blood in the middle layer of the heart wall (myocardium). What are the causes? This condition is caused by a buildup of fat and cholesterol (plaque) in your arteries (atherosclerosis). This buildup narrows the arteries and makes it hard for blood to flow. What increases the risk? You are more likely to develop this condition if: You have high levels of cholesterol in your blood. You have high blood pressure (hypertension). You have diabetes. You have a family history of heart disease. You are not active, or you do not exercise enough. You feel sad (depressed). You have been treated with high energy rays (radiation) on the left side of your chest. Other risk factors are: Using tobacco. Being very overweight (obese). Eating a diet high in unhealthy fats (saturated fats). Having stress, or being exposed to things that cause stress. Using drugs, such as cocaine. Women have a greater risk for angina if: They are older than 55. They have stopped having their period (are in postmenopause). What are the signs or symptoms? Common symptoms of this condition in both men and women may include: Chest pain, which may: ?Feel like a crushing or squeezing in the chest. ?Feel like a tightness, pressure, fullness, or heaviness in the chest. ?Last for more than a few minutes at a time. ?Stop and come back (recur) after a few minutes. Pain in the neck, arm, jaw, or back. Heartburn or upset stomach (indigestion) for no reason. Being short of breath. Feeling sick to your stomach (nauseous). Sudden cold sweats. Women and people with diabetes may have other symptoms that are not usual, such as feeling: Tired (fatigue). Worried or nervous (anxious) for no reason. Weak for no reason. Dizzy or passing out (fainting). How is this treated? This condition may be treated with: Medicines. These are given to: ?Prevent blood clots. ?Prevent heart attack. ?Relax blood vessels and improve blood flow to the heart (nitrates). ?Reduce blood pressure. ?Improve the pumping action of the heart. ?Reduce fat and cholesterol in the blood. A procedure to widen a narrowed or blocked artery in the heart (angioplasty). Surgery to allow blood to go around a blocked artery (coronary artery bypass surgery). Follow these instructions at home: Medicines Take akgz-kul-dasogaf and prescription medicines only as told by your doctor. Do not take these medicines unless your doctor says that you can: ?NSAIDs. These include: ?Ibuprofen. ?Naproxen. ?Vitamin supplements that have vitamin A, vitamin E, or both. ?Hormone therapy that contains estrogen with or without progestin. Eating and drinking Eat a heart-healthy diet that includes: ?Lots of fresh fruits and vegetables. ?Whole grains. ?Low-fat (lean) protein. ?Low-fat dairy products. Follow instructions from your doctor about what you cannot eat or drink. Activity Follow an exercise program that your doctor tells you. Talk with your doctor about joining a program to help improve the health of your heart (cardiac rehab). When you feel tired, take a break. Plan breaks if you know you are going to feel tired. Lifestyle Do not use any products that contain nicotine or tobacco. This includes cigarettes, e-cigarettes, and chewing tobacco. If you need help quitting, ask your doctor. If your doctor says you can drink alcohol: ?Limit how much you use to: ?0 1 drink a day for women who are not . ? 0 2 drinks a day for men. ?Be aware of how much alcohol is in your drink. In the [place] one drink equals: ?One 12 oz bottle of beer (355 mL). ?One 5 oz glass of wine (148 mL). ?One 1 oz glass of hard liquor (44 mL). General instructions Stay at a healthy weight. If your doctor tells you to do so, work with him or her to lose weight. Learn to deal with stress. If you need help, ask your doctor. Keep your vaccines up to date. Get a flu shot every year. Talk with your doctor if you feel sad. Take a screening test to see if you are at risk for depression. Work with your doctor to manage any other health problems that you have. These may include diabetesor high blood pressure. Keep all follow-up visits as told by your doctor. This is important. Get help right away if: You have pain in your chest, neck, arm, jaw, or back, and the pain: ?Lasts more than a few minutes. ?Comes back. ?Does not get better after you take medicine under your tongue (sublingual nitroglycerin). ?Keeps getting worse. ?Comes more often. You have any of these problems for no reason: ?Sweating a lot. ?Heartburn or upset stomach. ?Shortness of breath. ?Trouble breathing. ?Feeling sick to your stomach. ?Throwing up (vomiting). ?Feeling more tired than normal. ?Feeling nervous or worrying more than normal. ?Weakness. You are suddenly dizzy or light-headed. You pass out. These symptoms may be an emergency. Do not wait to see if the symptoms will go away. Get medical help right away. Call your local emergency services (911 in the [place] Do not drive yourself to the hospital. Summary Angina is very bad discomfort or pain in the chest, neck, arm, neck, or back. Symptoms include chest pain, heartburn or upset stomach for no reason, and shortness of breath. Women or people with diabetes may have symptoms that are not usual, such as feeling nervous or worried for no reason, weak for no reason, or tired. Take all medicines only as told by your doctor. You should eat a heart-healthy diet and follow an exercise program. This information is not intended to replace advice given to you by your health care provider. Make sure you discuss any questions you have with your health care provider. Document Released: 11/25/2008 Document Revised: 01/25/2019 Document Reviewed: 01/25/2019 [employer] Patient Education 2020 [employer]. Follow Up Care 12/18/2024 00:14:18 With:YARA GUERRERO MD Address: [address] [place] [address] [address] [facility] [place] [place] [address]- When:5 to [address] [facility] 06-30-2025 Note Discharge Instructions Thank you for allowing [facility] to assist you with your healthcare needs. The following is importantdischarge information regarding your hospital visit. Your Care Team MONIE ALSTON DO Your Diagnosis COPD (chronic obstructive pulmonary disease) What to do next Instructions From Your Doctor If BP still higher than 170 at home, please take an extra half pill of hydralazine. Then resume home dose of hydralazine starting tomorrow morning. Scheduled Follow-Up Appointments Appointment Type When With Where Contact Information StatusCV Hospital Follow Up 01/14/2025 10:30 AM EDT [facility] Confirmed Wellness Annual 08/26/2025 12:30 PM EST MONIE ALSTON DO [facility] [address] [place] [id number] Confirmed Follow Up Appointments Follow Up with YARA GUERRERO MD When:Within 5 to 7 days Where:[address] [facility] [place] [address]- The Following Activity and Diet Have Been Ordered for You Discharge Activity - Ordered -- NO activity restrictions, 12/20/24 17:44:00 EDT Discharge Diet - Ordered -- Type of Diet: Regular, Sodium limit: Low, Fats limit: Low, 12/20/24 17:44:00 EDT The Following Equipment Has Been Ordered for You No qualifying data available. The Following Treatments Have Been Ordered for You Discharge Labs Discharge Outpatient Labwork - Ordered -- CMP, Mag, CBC, Dialysis, Results Notify to: YARA GUERRERO MD, 12/20/24 17:44:00 EDT Discharge Radiology No qualifying data available. Other Therapies No qualifying data available. Post Acute Orders No qualifying data available. Someone Will Contact You Regarding These Home Health Referrals No home referrals have been ordered for you. No one will call you. Allergies penicillin (Moderate) Anaphylaxis, rash Contrast dye Skin rash, Fever Medications Please ask your primary doctor or pharmacist before taking any other medication not listed, including over the counter drugs, herbal medications, vitamins and or supplements as they may interact withyour home medications. What How Much When Why Instructions Last Dose New hydrALAZINE (hydrALAZINE 25 mg oral tablet) 1 tab(s) by mouth Three (3) times a day Refills: 3 Pickup at [id number] Changed carvedilol (carvedilol 6.25 mg oral tablet) 1 tab(s) by mouth Two (2) [id number] Changed isosorbide mononitrate (isosorbide mononitrate 30 mg oral tablet, extended release) 2 tab(s) by mouth Once a day before a meal [id number] Unchanged acetaminophen (acetaminophen 325 mg oral capsule) 2 cap by mouth Every 4 hours as needed for for pain Unchanged albuterol (albuterol MDI (90 mcg/ inh) C[employer] free inhalation aerosol) 1 puff(s) by inhalation Every 4 hours as needed for as needed for wheezing Unchanged aspirin (aspirin 81 mg oral delayed release tablet) 1 tab(s) by mouth [id number] Unchanged atorvastatin (atorvastatin 40 mg oral tablet) 1 tab(s) by mouth Once a day [id number] Unchanged budesonide-formoterol (Symbicort 80 mcg-4.5 mcg/ inh Inhaler) 2 puff(s) by inhalation Two (2) times a day COPD (chronic obstructive pulmonary disease) Unchanged calcium acetate (calcium acetate 667 mg oral capsule) 4 cap by mouth Three (3) times a day with meals Unchanged nicotine (nicotine 21 mg/ 24 hr transdermal film, extended release) 1 patch(es) Transdermal Once a day Duration: 30 Days apply to skin Unchanged sevelamer (Renvela 800 mg oral tablet (NF)) 1 tab(s) by mouth Three (3) times a day with meals [id number] [address], [place] [id number] [phone] What How Much When Comments Stop Taking midodrine (midodrine 5 mg oral tablet) 2 tab(s) by mouth Three (3) times a day Please take this list to your next doctor s visit. Bring all medications you take, including over the counter medications, herbals and other supplements with you to your doctor s visit. Patients and families are reminded to discard old lists and to update any records with all medication providers or retail pharmacies. Medication Leaflets carvedilol (COLETTE ve ranjit marcano) Coreg, Coreg CR What is the most important information I should know about carvedilol? You should not take carvedilol if you have asthma, bronchitis, emphysema, severe liver disease, or a serious heart condition such as heart block, 'sick sinus syndrome,' or slow heart rate (unless youhave a pacemaker). What is carvedilol? Carvedilol is a beta-marcela that is used to treat heart failure and hypertension (high blood pressure). Carvedilol is also used after a heart attack that has caused your heart not to pump as well. Carvedilol may also be used for purposes not listed in this medication guide. What should I discuss with my healthcare provider before taking carvedilol? You should not take carvedilol if you are allergic to it, or if you have: asthma, bronchitis, emphysema; severe liver disease; or a serious heart condition such as severe heart failure, heart block, 'sick sinus syndrome,' or slowheart rate (unless you have a pacemaker). Tell your doctor if you have ever had: coronary artery disease (clogged arteries); slow heartbeats that have caused you to faint; fluid retention; asthma or other lung problems; angina (chest pain); diabetes (taking carvedilol can make it harder for you to tell when you have low blood sugar); a thyroid disorder; kidney disease; circulation problems (such as Raynaud's syndrome); or pheochromocytoma (tumor of the adrenal gland). Tell your doctor if you are or . Carvedilol is not approved for use by anyone younger than 18 years old. How should I take carvedilol? Follow all directions on your prescription label and read all medication guides or instruction sheets. Your doctor may occasionally change your dose. Use the medicine exactly as directed. Carvedilol works best if you take it with food, at the same time every day. Swallow the extended-release capsule whole and do not crush, chew, break, or open it. If you cannot swallow a capsule whole, open it and sprinkle the medicine into a spoonful of cold applesauce. Swallow the mixture right away without chewing. Do not save it for later use. If you are switched from carvedilol tablets to carvedilol extended-release capsules (Coreg CR), your daily total dose of this medicine may be higher or lower than before. Older adults may be more likely to become dizzy or feel faint when switching from tablets to extended-release capsules. Follow your doctor's instructions. Your blood pressure will need to be checked often. If you need surgery (including cataract surgery), tell your surgeon you currently use this medicine. You may need to stop for a short time. You should not stop using carvedilol suddenly. Stopping suddenly may cause chest pain or a heart attack. Follow your doctor's instructions about tapering your dose. If you are being treated for high blood pressure, keep using this medication even if you feel well.High blood pressure often has no symptoms. You may need to use blood pressure medication for the rest of your life. Carvedilol is only part of a complete treatment program that may also include diet, exercise, and weight control. Follow your doctor's instructions very closely. Store at room temperature away from moisture and heat. What happens if I miss a dose? Take the medicine as soon as you can, but skip the missed dose if it is almost time for your next dose. Do not take two doses at one time. What happens if I overdose? Seek emergency medical attention or call the Poison Help line at . Overdose symptoms may include uneven heartbeats, shortness of breath, bluish- colored fingernails, dizziness, weakness, fainting, and seizure (convulsions). What should I avoid while taking carvedilol? Avoid driving or hazardous activity until you know how this medicine will affect you. Your reactions could be impaired. Avoid getting up too fast from a sitting or lying position, or you may feel dizzy. What are the possible side effects of carvedilol? Get emergency medical help if you have signs of an allergic reaction: hives; difficulty breathing; swelling of your face, lips, tongue, or throat. Call your doctor at once if you have: a light-headed feeling, like you might pass out; slow or uneven heartbeats; cold feeling or numbness in your fingers or toes; chest pain, dry cough, wheezing, chest tightness; heart problems--swelling, rapid weight gain, feeling short of breath; or high blood sugar--increased thirst, increased urination, dry mouth, fruity breath odor. Common side effects may include: dizziness; slow heartbeats; diarrhea; weight gain; dry eyes; or problems wearing contact lenses. This is not a complete list of side effects and others may occur. Call your doctor for medical advice about side effects. You may report side effects to FDA at 8-536-FBZ-3618. What other drugs will affect carvedilol? Sometimes it is not safe to use certain medications at the same time. Some drugs can affect your blood levels of other drugs you take, which may increase side effects or make the medications less effective. Other drugs may affect carvedilol, including prescription and ttmi-gvs-oqpqcqm medicines, vitamins,and herbal products. Tell your doctor about all your current medicines and any medicine you start or stop using. Where can I get more information? Your pharmacist can provide more information about carvedilol. Remember, keep this and all other medicines out of the reach of children, never share your medicines with others, and use this medication only for the indication prescribed. Every effort has been made to ensure that the information provided by [employer]. [employer]') is accurate, up-to-date, and complete, but no guarantee is made to that effect. Drug information contained herein may be time sensitive. [employer] information has been compiled for use by healthcare practitioners and consumers in the [place] and therefore [employer] does not warrant that uses outside of the [place] are appropriate, unless specifically indicated otherwise. [employer] drug information does not endorse drugs, diagnose patients or recommend therapy. [employer] drug information isan informational resource designed to assist licensed healthcare practitioners in caring for their p atients and/or to serve consumers viewing this service as a supplement to, and not a substitute for, the expertise, skill, knowledge and judgment of healthcare practitioners. The absence of a warningfor a given drug or drug combination in no way should be construed to indicate that the drug or drug combination is safe, effective or appropriate for any given patient. [employer] does not assume any responsibility for any aspect of healthcare administered with the aid of information [employer] provides. The information contained herein is not intended to cover all possible uses, directions, precautions, warnings, drug interactions, allergic reactions, or adverse effects. If you have questions about the drugs you are taking, check with your doctor, nurse or pharmacist. Copyright 8249-9863 [employer]. Version: 16.01. Revision Date: 10/15/2018. hydralazine (kaiser esteban) What is the most important information I should know about hydralazine? You should not use this medicine if you have coronary artery disease, or rheumatic heart disease affecting the mitral valve. What is hydralazine? Hydralazine is a vasodilator that works by relaxing the muscles in your blood vessels to help them dilate (widen). This lowers blood pressure and allows blood to flow more easily through your veins and arteries. Hydralazine is used to treat high blood pressure (hypertension). Hydralazine may also be used for purposes not listed in this medication guide. What should I discuss with my healthcare provider before taking hydralazine? You should not use hydralazine if you are allergic to it, or if you have: coronary artery disease; or rheumatic heart disease affecting the mitral valve. To make sure hydralazine is safe for you, tell your doctor if you have ever had: kidney disease; systemic lupus erythematosus; angina (chest pain); or a stroke. It is not known whether this medicine will harm an unborn baby. Tell your doctor if you are or plan to become . Hydralazine can pass into breast milk, but effects on the nursing baby are not known. Tell your doctor if you are breast-feeding. Hydralazine is not approved for use by anyone younger than 18 years old. How should I take hydralazine? Follow all directions on your prescription label. Do not take this medicine in larger or smaller amounts or for longer than recommended. Your blood pressure will need to be checked often. You may also need frequent blood tests. Keep using this medicine as directed, even if you feel well. High blood pressure often has no symptoms. You may need to use blood pressure medicine for the rest of your life. Store at room temperature away from moisture and heat. What happens if I miss a dose? Take the missed dose as soon as you remember. Skip the missed dose if it is almost time for your next scheduled dose. Do not take extra medicine to make up the missed dose. What happens if I overdose? Seek emergency medical attention or call the Poison Help line at . Overdose symptoms may include rapid heartbeats, warmth or tingling under your skin, chest pain, or fainting. What should I avoid while taking hydralazine? Avoid getting up too fast from a sitting or lying position, or you may feel dizzy. Get up slowly and steady yourself to prevent a fall. What are the possible side effects of hydralazine? Get emergency medical help if you have signs of an allergic reaction: hives; difficult breathing; swelling of your face, lips, tongue, or throat. Call your doctor at once if you have: chest pain or pressure, pain spreading to your jaw or shoulder; fast or pounding heartbeats; a light-headed feeling, like you might pass out; numbness, tingling, or burning pain in your hands or feet; painful or difficult urination; little or no urination; or lupus-like syndrome--joint pain or swelling with fever, swollen glands, muscle aches, chest pain, vomiting, unusual thoughts or behavior, and patchy skin color. Common side effects may include: chest pain, fast heart rate; headache; or nausea, vomiting, diarrhea, loss of appetite. This is not a complete list of side effects and others may occur. Call your doctor for medical advice about side effects. You may report side effects to FDA at 4-059-RJH-1703. What other drugs will affect hydralazine? Tell your doctor about all your current medicines and any you start or stop using, especially: diazoxide (an injectable blood pressure medication); or an MAO inhibitor--isocarboxazid, linezolid, methylene blue injection, phenelzine, rasagiline, selegiline, tranylcypromine, and others. This list is not complete. Other drugs may interact with hydralazine, including prescription and futt-tcm-nlpvorb medicines, vitamins, and herbal products. Not all possible interactions are listed inthis medication guide. Where can I get more information? Your pharmacist can provide more information about hydralazine. Remember, keep this and all other medicines out of the reach of children, never share your medicines with others, and use this medication only for the indication prescribed. Every effort has been made to ensure that the information provided by [employer]') is accurate, up-to-date, and complete, but no guarantee is made to that effect. Drug information contained herein may be time sensitive. [employer] information has been compiled for use by healthcare practitioners and consumers in the [place] and therefore [employer] does not warrant that uses outside of the [place] are appropriate, unless specifically indicated otherwise. [employer] drug information does not endorse drugs, diagnose patients or recommend therapy. [employer] drug information isan informational resource designed to assist licensed healthcare practitioners in caring for their p atients and/or to serve consumers viewing this service as a supplement to, and not a substitute for, the expertise, skill, knowledge and judgment of healthcare practitioners. The absence of a warningfor a given drug or drug combination in no way should be construed to indicate that the drug or drug combination is safe, effective or appropriate for any given patient. [employer] does not assume any responsibility for any aspect of healthcare administered with the aid of information [employer] provides. The information contained herein is not intended to cover all possible uses, directions, precautions, warnings, drug interactions, allergic reactions, or adverse effects. If you have questions about the drugs you are taking, check with your doctor, nurse or pharmacist. Copyright 7255-5782 [employer]. Version: 7.01. Revision Date: 01/24/2023. Education Materials Hypertension, Adult Hypertension is another name for high blood pressure. High blood pressure forces your heart to workharder to pump blood. This can cause problems over time. There are two numbers in a blood pressure reading. There is a top number (systolic) over a bottom number (diastolic). It is best to have a blood pressure that is below 120/80. Healthy choices can help lower your blood pressure, or you may need medicine to help lower it. What are the causes? The cause of this condition is not known. Some conditions may be related to high blood pressure. What increases the risk? Smoking. Having type 2 diabetes mellitus, high cholesterol, or both. Not getting enough exercise or physical activity. Being overweight. Having too much fat, sugar, calories, or salt (sodium) in your diet. Drinking too much alcohol. Having long-term (chronic) kidney disease. Having a family history of high blood pressure. Age. Risk increases with age. Race. You may be at higher risk if you are . Gender. Men are at higher risk than women before age 45. After age 65, women are at higher risk than men. Having obstructive sleep apnea. Stress. What are the signs or symptoms? High blood pressure may not cause symptoms. Very high blood pressure (hypertensive crisis) may cause: ? Headache. ? Feelings of worry or nervousness (anxiety). ? Shortness of breath. ? Nosebleed. ? A feeling of being sick to your stomach (nausea). ? Throwing up (vomiting). ? Changes in how you see. ? Very bad chest pain. ? Seizures. How is this treated? This condition is treated by making healthy lifestyle changes, such as: ? Eating healthy foods. ? Exercising more. ? Drinking less alcohol. Your health care provider may prescribe medicine if lifestyle changes are not enough to get your blood pressure under control, and if: ? Your top number is above 130. ? Your bottom number is above 80. Your personal target blood pressure may vary. Follow these instructions at home: Eating and drinking If told, follow the DASH eating plan. To follow this plan: ? Fill one half of your plate at each meal with fruits and vegetables. ? Fill one fourth of your plate at each meal with whole grains. Whole grains include whole-wheat pasta, brown rice, and whole-grain bread. ? Eat or drink low-fat dairy products, such as skim milk or low-fat yogurt. ? Fill one fourth of your plate at each meal with low-fat (lean) proteins. Low-fat proteins include fish, chicken without skin, eggs, beans, and tofu. ? Avoid fatty meat, cured and processed meat, or chicken with skin. ? Avoid pre-made or processed food. Eat less than 1,500 mg of salt each day. Do not drink alcohol if: ? Your doctor tells you not to drink. ? You are , may be , or are planning to become . If you drink alcohol: ? Limit how much you use to: ? 0 1 drink a day for women. ? 0 2 drinks a day for men. ? Be aware of how much alcohol is in your drink. In the [place] one drink equals one 12 oz bottle of beer (355 mL), one 5 oz glass of wine (148 mL), or one 1 oz glass of hard liquor (44 mL). Lifestyle Work with your doctor to stay at a healthy weight or to lose weight. Ask your doctor what the best weight is for you. Get at least 30 minutes of exercise most days of the week. This may include walking, swimming, or biking. Get at least 30 minutes of exercise that strengthens your muscles (resistance exercise) at least 3 days a week. This may include lifting weights or doing Pilates. Do not use any products that contain nicotine or tobacco, such as cigarettes, e- cigarettes, and chewing tobacco. If you need help quitting, ask your doctor. Check your blood pressure at home as told by your doctor. Keep all follow-up visits as told by your doctor. This is important. Medicines Take pafq-afq-twokonw and prescription medicines only as told by your doctor. Follow directions carefully. Do not skip doses of blood pressure medicine. The medicine does not work as well if you skip doses.Skipping doses also puts you at risk for problems. Ask your doctor about side effects or reactions to medicines that you should watch for. Contact a doctor if you: Think you are having a reaction to the medicine you are taking. Have headaches that keep coming back (recurring). Feel dizzy. Have swelling in your ankles. Have trouble with your vision. Get help right away if you: Get a very bad headache. Start to feel mixed up (confused). Feel weak or numb. Feel faint. Have very bad pain in your: ? Chest. ? Belly (abdomen). Throw up more than once. Have trouble breathing. Summary Hypertension is another name for high blood pressure. High blood pressure forces your heart to work harder to pump blood. For most people, a normal blood pressure is less than 120/80. Making healthy choices can help lower blood pressure. If your blood pressure does not get lower with healthy choices, you may need to take medicine. This information is not intended to replace advice given to you by your health care provider. Make sure you discuss any questions you have with your health care provider. Document Released: 11/25/2008 Document Revised: 02/17/2019 Document Reviewed: 02/17/2019 [employer] Education 2020 [employer] Acute Respiratory Distress Syndrome, Adult Acute respiratory distress syndrome is a life-threatening condition in which fluid collects in the lungs. This prevents the lungs from filling with air and passing oxygen into the blood. This can cause the lungs and other vital organs to fail. The condition usually develops following an infection, illness, surgery, or injury. What are the causes? This condition may be caused by: An infection, such as sepsis or pneumonia. A serious injury to the head or chest. Severe bleeding from an injury. A major surgery. Breathing in harmful chemicals or smoke. Blood transfusions. A blood clot in the lungs. Breathing in vomit (aspiration). Near-drowning. Inflammation of the pancreas (pancreatitis). A drug overdose. What are the signs or symptoms? Sudden shortness of breath and rapid breathing are the main symptoms of this condition. Other symptoms may include: A fast or irregular heartbeat. Skin, lips, or fingernails that look blue (cyanosis). Confusion. Tiredness or loss of energy. Chest pain, particularly while taking a breath. Coughing. Restlessness or anxiety. Fever. This is usually present if there is an underlying infection, such as pneumonia. How is this diagnosed? This condition is diagnosed based on: Your symptoms. Medical history. A physical exam. During the exam, your health care provider will listen to your heart and check forcrackling or wheezing sounds in your lungs. You may also have other tests to confirm the diagnosis and measure how well your lungs are working.These may include: Measuring the amount of oxygen in your blood. Your health care provider will use two methods to do this procedure: ? A small device (pulse oximeter) that is placed on your finger, earlobe, or toe. ? An arterial blood gas test. A sample of blood is taken from an artery and tested for oxygen levels. Blood tests. Chest X-rays or CT scans to look for fluid in the lungs. Taking a sample of your sputum to test for infection. Heart test, such as an echocardiogram or electrocardiogram. This is done to rule out any heart problems (such as heart failure) that may be causing your symptoms. Bronchoscopy. During this test, a thin, flexible tube with a light is passed into the mouth or nose, down the windpipe, and into the lungs. How is this treated? Treatment depends on the cause of your condition. The goal is to support you while your lungs heal and the underlying cause is treated. Treatment may include: Oxygen therapy. This may be done through: ? A tube in your nose or a face mask. ? A ventilator. This device helps move air into and out of your lungs through a breathing tube that is inserted into your mouth or nose. Continuous positive airway pressure (CPAP). This treatment uses mild air pressure to keep the airways open. A mask or other device will be placed over your nose or mouth. Tracheostomy. During this procedure, a small cut is made in your neck to create an opening to your windpipe. A breathing tube is placed directly into your windpipe. The breathing tube is connected toa ventilator. This is done if you have problems with your airway or if you need a ventilator for a long period of time. Positioning you to lie on your stomach (prone position). Medicines, such as: ? Sedatives to help you relax. ? Blood pressure medicines. ? Antibiotics to treat infection. ? Blood thinners to prevent blood clots. ? Diuretics to help prevent excess fluid. Fluids and nutrients given through an IV tube. Wearing compression stockings on your legs to prevent blood clots. Extra corporeal membrane oxygenation (ECMO). This treatment takes blood outside your body, adds oxygen, and removes carbon dioxide. The blood is then returned to your body. This treatment is only used in severe cases. Follow these instructions at home: Take cqwb-pes-zrtqbvk and prescription medicines only as told by your health care provider. Do not use any products that contain nicotine or tobacco, such as cigarettes and e-cigarettes. If you need help quitting, ask your health care provider. Limit alcohol intake to no more than 1 drink per day for non women and 2 drinks per day formen. One drink equals 12 oz of beer, 5 oz of wine, or 1 oz of hard liquor. Ask friends and family to help you if daily activities make you tired. Attend any pulmonary rehabilitation as told by your health care provider. This may include: ? Education about your condition. ? Exercises. ? Breathing training. ? Counseling. ? Learning techniques to conserve energy. ? Nutrition counseling. Keep all follow-up visits as told by your health care provider. This is important. Contact a health care provider if: You become short of breath during activity or while resting. You develop a cough that does not go away. You have a fever. Your symptoms do not get better or they get worse. You become anxious or depressed. Get help right away if: You have sudden shortness of breath. You develop sudden chest pain that does not go away. You develop a rapid heart rate. You develop swelling or pain in one of your legs. You cough up blood. You have trouble breathing. Your skin, lips, or fingernails turn blue. These symptoms may represent a serious problem that is an emergency. Do not wait to see if the symptoms will go away. Get medical help right away. Call your local emergency services (911 in the [place] Do not drive yourself to the hospital. Summary Acute respiratory distress syndrome is a life-threatening condition in which fluid collects in the lungs, which leads the lungs and other vital organs to fail. This condition usually develops following an infection, illness, surgery, or injury. Sudden shortness of breath and rapid breathing are the main symptoms of acute respiratory distress syndrome. Treatment may include oxygen therapy, continuous positive airway pressure (CPAP), tracheostomy, lying on your stomach (prone position), medicines, fluids and nutrients given through an IV tube, compression stockings, and extra corporeal membrane oxygenation (ECMO). This information is not intended to replace advice given to you by your health care provider. Make sure you discuss any questions you have with your health care provider. Document Released: 06/09/2006 Document Revised: 05/22/2018 Document Reviewed: 05/26/2017 [employer] Patient Education 2020 [employer]. Eating Plan for Dialysis Dialysis is a treatment that cleans your blood. It is used when your kidneys are damaged. When you need dialysis, you should watch what you eat. This is because some nutrients can build up in your blood between treatments and make you sick. Your doctor or diet specialist (dietitian) will: Tell you what nutrients you should include or avoid. Tell you how much of these nutrients you should get each day. Help you plan meals. Tell you how much to drink each day. What are tips for following this plan? Reading food labels Check food labels for: ? Potassium. This is found in milk, fruits, and vegetables. ? Phosphorus. This is found in milk, cheese, beans, nuts, and carbonated beverages. ? Salt (sodium). This is in processed meats, cured meats, ready-made frozen meals, canned vegetables,and salty snack foods. Try to find foods that are low in potassium, phosphorus, and sodium. Look for foods that are labeled sodium free, reduced sodium, or low sodium. Shopping Do not buy whole-grain and high-fiber foods. Do not buy or use salt substitutes. Do not buy processed foods. Cooking Drain all fluid from cooked vegetables and canned fruits before you eat them. Before you cook potatoes, cut them into small pieces. Then boil them in unsalted water. Try using herbs and spices that do not contain sodium to add flavor. Meal planning Most people on dialysis should try to eat: 6-11 servings of grains each day. One serving is equal to 1 slice of bread or cup of cooked rice orpasta. 2 3 servings of low-potassium vegetables each day. One serving is equal to cup. 2 3 servings of low-potassium fruits each day. One serving is equal to cup. Protein, such as meat, poultry, fish, and eggs. Talk with your doctor or dietitian about the right amount and type of protein to eat. cup of dairy each day. General information Follow your doctor's instructions about how much to drink. You may be told to: ? Write down what you drink. ? Write down the foods you eat that are made mostly from water, such as gelatin and soups. ? Drink from small cups. Take vitamin and mineral supplements only as told by your doctor. Take aful-skl-ktdnhbo and prescription medicines only as told by your doctor. What foods can I eat? Fruits Apples. Fresh or frozen berries. Fresh or canned pears, peaches, and pineapple. Grapes. Plums. Vegetables Fresh or frozen broccoli, carrots, and green beans. Cabbage. Cauliflower. Celery. Cucumbers. Eggplant. Radishes. Zucchini. Grains White bread. White rice. Cooked cereal. Unsalted popcorn. Tortillas. Pasta. Meats and other proteins Fresh or frozen beef, pork, chicken, and fish. Eggs. Dairy Cream cheese. Heavy cream. Ricotta cheese. Beverages Apple cider. Cranberry juice. Grape juice. Lemonade. Black coffee. Rice milk (that is not enriched or fortified). Seasonings and condiments Herbs. Spices. Jam and jelly. Honey. Sweets and desserts Sherbet. Cakes. Cookies. Fats and oils Zillah oil, canola oil, and safflower oil. Other foods Non-dairy creamer. Non-dairy whipped topping. Homemade broth without salt. The items listed above may not be a complete list of foods and beverages you can eat. Contact your dietitian for more options. What foods should I avoid? Fruits Star fruit. Bananas. Oranges. Kiwi. Nectarines. Prunes. Melon. Dried fruit. Avocado. Vegetables Potatoes. Beets. Tomatoes. Winter squash and pumpkin. Asparagus. Spinach. Parsnips. Grains Whole-grain bread. Whole-grain pasta. High-fiber cereal. Meats and other proteins Canned, smoked, and cured meats. Packaged lunch meat. Sardines. Nuts and seeds. Peanut butter. Beans and legumes. Dairy Milk. Buttermilk. Yogurt. Cheese and cottage cheese. Processed cheese spreads. Beverages Dix juice. Prune juice. Carbonated soft drinks. Seasonings and condiments Salt. Salt substitutes. Soy sauce. Sweets and desserts Ice cream. Chocolate. Candied nuts. Fats and oils Butter. Margarine. Other foods Ready-made frozen meals. Canned soups. The items listed above may not be a complete list of foods and beverages you should avoid. Contact your dietitian for more information. Summary If you are having dialysis, it is important to watch what you eat. Certain nutrients and wastes canbuild up in your blood and cause you to get sick. Your dietitian will help you make an eating plan that meets your needs. Avoid foods that are high in potassium, salt (sodium), and phosphorus. Restrict fluids as told by your doctor or dietitian. This information is not intended to replace advice given to you by your health care provider. Make sure you discuss any questions you have with your health care provider. Document Released: 12/08/2012 Document Revised: 08/26/2018 Document Reviewed: 06/10/2018 [employer] Patient Education 2020 [employer] Angina Angina is very bad discomfort or pain in the chest, neck, arm, jaw, or back. The discomfort is caused by a lack of blood in the middle layer of the heart wall (myocardium). What are the causes? This condition is caused by a buildup of fat and cholesterol (plaque) in your arteries (atherosclerosis). This buildup narrows the arteries and makes it hard for blood to flow. What increases the risk? You are more likely to develop this condition if: You have high levels of cholesterol in your blood. You have high blood pressure (hypertension). You have diabetes. You have a family history of heart disease. You are not active, or you do not exercise enough. You feel sad (depressed). You have been treated with high energy rays (radiation) on the left side of your chest. Other risk factors are: Using tobacco. Being very overweight (obese). Eating a diet high in unhealthy fats (saturated fats). Having stress, or being exposed to things that cause stress. Using drugs, such as cocaine. Women have a greater risk for angina if: They are older than 55. They have stopped having their period (are in postmenopause). What are the signs or symptoms? Common symptoms of this condition in both men and women may include: Chest pain, which may: ? Feel like a crushing or squeezing in the chest. ? Feel like a tightness, pressure, fullness, or heaviness in the chest. ? Last for more than a few minutes at a time. ? Stop and come back (recur) after a few minutes. Pain in the neck, arm, jaw, or back. Heartburn or upset stomach (indigestion) for no reason. Being short of breath. Feeling sick to your stomach (nauseous). Sudden cold sweats. Women and people with diabetes may have other symptoms that are not usual, such as feeling: Tired (fatigue). Worried or nervous (anxious) for no reason. Weak for no reason. Dizzy or passing out (fainting). How is this treated? This condition may be treated with: Medicines. These are given to: ? Prevent blood clots. ? Prevent heart attack. ? Relax blood vessels and improve blood flow to the heart (nitrates). ? Reduce blood pressure. ? Improve the pumping action of the heart. ? Reduce fat and cholesterol in the blood. A procedure to widen a narrowed or blocked artery in the heart (angioplasty). Surgery to allow blood to go around a blocked artery (coronary artery bypass surgery). Follow these instructions at home: Medicines Take haow-rdb-fhzekvc and prescription medicines only as told by your doctor. Do not take these medicines unless your doctor says that you can: ? NSAIDs. These include: ? Ibuprofen. ? Naproxen. ? Vitamin supplements that have vitamin A, vitamin E, or both. ? Hormone therapy that contains estrogen with or without progestin. Eating and drinking Eat a heart-healthy diet that includes: ? Lots of fresh fruits and vegetables. ? Whole grains. ? Low-fat (lean) protein. ? Low-fat dairy products. Follow instructions from your doctor about what you cannot eat or drink. Activity Follow an exercise program that your doctor tells you. Talk with your doctor about joining a program to help improve the health of your heart (cardiac rehab). When you feel tired, take a break. Plan breaks if you know you are going to feel tired. Lifestyle Do not use any products that contain nicotine or tobacco. This includes cigarettes, e-cigarettes, and chewing tobacco. If you need help quitting, ask your doctor. If your doctor says you can drink alcohol: ? Limit how much you use to: ? 0 1 drink a day for women who are not . ? 0 2 drinks a day for men. ? Be aware of how much alcohol is in your drink. In the [place] one drink equals: ? [id number] Note Date of Service 12/20/2024 Reason for Consultation Battery life Referring Physician Dr. [place] History of Present Illness This is a 49-year-old male with a past medical history significant for ESRD [on dialysis], mild CAD[[facility] 2022], heart failure with improved ejection fraction [EF 30% in 2022 to 50% 10/11/2024], mild aortic stenosis [peak systolic velocity 2.4, mean systolic gradient 13, DVI 0.5, YARI 1.6], mild mitral regurgitation, pulmonary hypertension [RVSP 41], hypertension, COPD, nonischemic cardiomyopathy status post ICD presented due to chest pain and respiratory distress for which the patient was intubated. On initial arrival, blood pressure was 211/138 with a heart rate of 113. CBC unremarkable except for hemoglobin of 8. INR 1. CMP remarkable for creatinine 16.9, calcium of 7.8. NT proBNP greater than35,000. Troponins negative x 4. TSH 6.9. Patient underwent a CT chest which was negative for pulmonary embolism, showed moderate cardiomegaly with pulmonary edema and small right pleural effusion. Right lower lobe and middle lobe airspace disease due to pneumonia or atelectasis. Peritoneal thickening around liver showing mild progression since 10/11/2021. EKG showing normal sinus rhythm at 85 bpm with underlying left anterior fascicular block Device interrogation reviewed. Patient currently on JANET with 6% battery life remaining. ICD inserted 2014 Biotronik. Currently set at DDD. No VT, VF, AT, AF. A sensed V sensed 100%. Review of Systems Negative except for those mentioned above Physical Exam Vitals and Measurements T: 37.0 C (Oral) TMIN: 36.3 C (Skin) TMAX: 37.2 C (Oral) HR: 84 (Monitored) RR: 17 BP: 150/76 SpO2:96% Weight Dosing Weight: 75.2 kg (12/18/24) Dosing Weight: 75.2 kg (12/18/24) General: AAOX3, NAD HEENT: Anicteric sclera, MMM Neck: Trachea midline, no JVD appreciated CVS: RRR, normal S1/S2, no murmurs/rubs/gallops Lung: CTAB, no wheezes/rhonchi/rales Abd: Soft, NT/ND Extrem: WWP, no LE edema Skin: Warm, Intact Neuro: AAOX3, spontaneous movement of all extremities Psych: Appropriate mood & affect Lab Results 12/20 07:01 WBC: 9.0 Hgb: 7.2 L Hct: 21.8 L Platelet: 229 Neutrophil %: 67.3 Glucose Level: 88 Glucose Level: 88 Sodium Level: 138 Sodium Level: 138 Potassium Level: 4.3 Potassium Level: 4.3 BUN: 30.0 H BUN: 30.0 H Creatinine Lvl (s): 9.51 H Creatinine Lvl (s): 9.51 H 12/19 06:39 WBC: 6.7 Hgb: 7.3 L Hct: 22.3 L Platelet: 234 Neutrophil %: 73.1 Glucose Level: 91 Glucose Level: 91 Sodium Level: 138 Sodium Level: 138 Potassium Level: 5.6 H Potassium Level: 5.6 H BUN: 44.0 H BUN: 44.0 H Creatinine Lvl (s): 11.63 H Creatinine Lvl (s): 11.63 H Assessment/Plan Concern for low battery life Acute on chronic heart failure with improved ejection fraction Fluid overload due to ESRD History of ESRD [on dialysis], mild CAD [[facility] 2022], heart failure with improved ejection fraction [EF 30% in 2022 to 50% 10/11/2024], mild aortic stenosis [peak systolic velocity 2.4, mean systolic gradient 13, DVI 0.5, YARI 1.6], mild mitral regurgitation, pulmonary hypertension [RVSP 41], hypertension, COPD, nonischemic cardiomyopathy status post ICD Concern for low battery life Currently in JANET with 6% battery life remaining. Will follow-up as an outpatient to proceed with replacement Thank you for allowing us to participate in the care of this patient. Case discussed with attendingphysician. We will sign off. Do not hesitate to contact us if you have any questions or concerns Problem List/Past Medical History Ongoing Abdominal pain AICD (automatic cardioverter/defibrillator) present Anemia Ankle injury Anxiety Assistance needed with transportation BMI 26.0-26.9,adult CAD in [place] artery Cardiomyopathy Chest pain Chronic renal failure Cigarette smoker COPD (chronic obstructive pulmonary disease) Coronary artery calcification, severe on CT 2024 Depression STRAUSS (dyspnea on exertion) End stage renal disease Glasses Headache HFrEF (heart failure with reduced ejection fraction) History of fall , about 10 feet into gravel History of MRSA infection Hx of hyperparathyroidism Hypertension Hypokinesis on echo 2022 Impacted cerumen of right ear Left serous otitis media Low back pain with left-sided sciatica Malrotation colon Medically noncompliant Migraine Mitral regurgitation Need for isolation SOBOE (shortness of breath on exertion) Trigger finger, right middle finger Vascular dialysis catheter in place Weakness Wrist sign 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 Procedure/Surgical History Defibrillator: 01/24/15 Peritoneal procedure Kidney transplant Parathyroid Dialysis catheter Nasal septoplasty Cholecystectomy Cholecystectomy Parathyroidectomy Medications Inpatient albuterol 2.5 mg/3 mL (0.083%) inhalation solution, 2.5 mg= 3 mL, Inhalation, QIDRT aspirin 81 mg oral delayed release tablet, 81 mg= 1 tab(s), Oral, Daily atorvastatin, 40 mg= 1 tab(s), Oral, qDay calcium acetate, 2668 mg= 4 tab(s), Oral, TIDM carvedilol 3.125 mg oral tablet, 3.125 mg= 1 tab(s), Oral, BIDM Colace, 100 mg= 1 cap(s), Oral, BID, PRN Dexmedetomidine for IV 400 mcg [0.2 mcg/kg/hr] + Sodium Chloride 0.9% intravenous solution 96 mL Dextrose 50% IV Push, 25 gram(s)= 50 mL, IV Push, AsDirected, PRN DuoNeb, 3 mL, Inhalation, q4hRT, PRN fentaNYL for IV 1,250 mcg [25 mcg/hr] + NS PMX titrate 250 mL furosemide, 40 mg= 4 mL, IV Push, BID heparin 5000 units/mL injection, 5000 unit(s)= 1 mL, Subcutaneous, q8h isosorbide mononitrate 30 mg oral tablet, extended release, 60 mg= 2 tab(s), Oral, qDayAC magnesium sulfate for IV bolus, 2 gram(s)= 50 mL, IV Piggyback, AsDirected, PRN magnesium sulfate for IV bolus, 4 gram(s)= 100 mL, IV Piggyback, AsDirected, PRN magnesium sulfate for IV bolus Milk of Magnesia, 30 mL, Oral, qHS, PRN Miralax Powder Packet, 17 gram(s)= 15 mL, Oral, qDay, PRN Nicoderm C-Q 14 mg/24 hr transdermal film, extended release, 14 mg= 1 patch(es), Transdermal, q24h Nicoderm C-Q 21 mg/24 hr transdermal film, extended release, 21 mg= 1 patch(es), Transdermal, q24h nicotine (Nicoderm Patch REMOVAL), 1 EA, Miscellaneous, q24h potassium chloride, 20 mEq= 1 tab(s), Oral, AsDirected, PRN potassium chloride, 40 mEq= 2 tab(s), Oral, AsDirected, PRN potassium chloride, 40 mEq= 2 tab(s), Oral, AsDirected, PRN potassium chloride bolus, 20 mEq= 100 mL, IV Piggyback, AsDirected, PRN Propofol for IV 1,000 mg [10 mcg/kg/min] + IV Premix Diluent titrate 100 mL Protonix IV Push, 40 mg, IV Push, BIDAC Pulmicort Respules 0.25 mg/2 mL inhalation suspension, 0.25 mg= 2 mL, Inhalation, BIDRT Renvela 800 mg oral tablet, 800 mg= 1 tab(s), Oral, TIDM Tylenol, 650 mg= 2 tab(s), Oral, q4h, PRN Zofran, 4 mg= 2 mL, IV Push, q4h, PRN Home acetaminophen 325 mg oral capsule, 650 mg= 2 cap(s), Oral, q4h, PRN albuterol MDI (90 mcg/inh) CFC free inhalation aerosol, 1 puff(s), Inhalation, q4h, PRN, 3 refills aspirin 81 mg oral delayed release tablet, 81 mg= 1 tab(s), Oral, Daily, 3 refills atorvastatin 40 mg oral tablet, 40 mg= 1 tab(s), Oral, qDay, 3 refills calcium acetate 667 mg oral capsule, 2668 mg= 4 cap(s), Oral, TIDM carvedilol 3.125 mg oral tablet, 3.125 mg= 1 tab(s), Oral, BIDM, 3 refills isosorbide mononitrate 30 mg oral tablet, extended release, 60 mg= 2 tab(s), Oral, qDayAC, 3 refills midodrine 5 mg oral tablet, 10 mg= 2 tab(s), Oral, TID nicotine 21 mg/24 hr transdermal film, extended release, 21 mg= 1 patch(es), Transdermal, qDay Renvela 800 mg oral tablet (NF), 800 mg= 1 tab(s), Oral, TIDM Symbicort 80 mcg-4.5 mcg/inh Inhaler, 2 puff(s), Inhalation, BID, 2 refills Allergies penicillin (Moderate) Anaphylaxis, rash Contrast dye Skin rash, Fever Social History Smoking Status - 11/25/2017 Current every day smoker Alcohol - Denies Alcohol Use, 01/16/2017 Use: Never., 12/07/2018 Nutrition/Health Caffeine intake amount: 3-4 servings/day., 05/08/2023 Substance Abuse - Denies Substance Abuse, 01/16/2017 Use: Never., 12/07/2018 Tobacco Nicotine Use: 4 or less cigarettes(less than 1/4 pack)/day in last 30 days. Type: Cigarettes., 11/30/2024 Family History Diabetes mellitus: Father. Heart disease: Father. Hypertension: Father. Health Status Family Member(s) Immunizations pneumococcal 13-valent conjugate vaccine: 0 unknown unit (10/23/16) pneumococcal 23-valent vaccine(Pneumovax: 0 unknown unit (06/03/15) pneumococcal 23-valent vaccine(Pneumovax: 0.5 mL (02/24/14) pneumococcal 23-valent vaccine(Pneumovax: 0 unknown unit (06/23/07) SARS-CoV-2 mRNA (tozinameran) vaccine: 0.3 unknown unit (05/28/21) SARS-CoV-2 mRNA (tozinameran) vaccine: 0.3 unknown unit (05/07/21) tetanus/diphtheria/pertussMUL.ORD![id number]: 0.5 mL (10/23/20) tetanus/diphtheria/pertussMUL.ORD![id number]: 0.5 mL (11/19/13) Digitally Signed by CLARK GARIBAY MD on 12/20/2024 04:[address] [facility] [id number] Note Date of Service 12/20/24 Reason for Consultation Consult Skin Team re: Pressure Staging - Ordered -- 12/19/24 14:30:16 EDT Skin Team Findings Vitals and Measurements T: 37.0 C (Oral) TMIN: 36.3 C (Skin) TMAX: 37.2 C (Oral) HR: 78 RR: 16 BP: 150/76 SpO2: 94% Pressure Area Details ------Pressure Area------ Reassigned from coccyx: Sacrum - Pressure Area Description: Purple, Indurated Sacrum - Pressure Area Dressing Description: Reinforced Sacrum - Pressure Area Dressing Type: Foam Sacrum - Pressure Area Length: 8 cm Sacrum - Pressure Area Surrounding Tissue: Normal skin tone Sacrum - Pressure Area Width: 14 cm Sacrum - Pressure Ulcer Present On Admission: Yes Sacrum - Pressure Ulcer Stage: Deep tissue injury ------Pressure Area Measurements------ Sacrum - Pressure Area Length: 8 cm Sacrum - Pressure Area Width: 14 cm (laying on left hip with slight stretch) Assessments and Recommendations ------Assessments------ Present For Wound Observation: Caregiver ------Recommendations------ Recommended Skin/Wound Interventions: Fluid Immersion mattress, Seat cushion, Turn and position system, Turn and reposition every 2 hours, Other: skin prep & foam daily, turn side to side with wedges ensuring sacrum is offloaded by placing hand on sacrum after wedge applied, limit chair time with seat shifts Education Individuals Taught: Patient, Family member Learning Readiness: Willing to learn Barriers to Learning: None evident Teaching Method: Demonstration, Explanation Problem List/Past Medical History Ongoing Abdominal pain AICD (automatic cardioverter/defibrillator) present Anemia Ankle injury Anxiety Assistance needed with transportation BMI 26.0-26.9,adult CAD in [place] artery Cardiomyopathy Chest pain Chronic renal failure Cigarette smoker COPD (chronic obstructive pulmonary disease) Coronary artery calcification, severe on CT 2024 Depression STRAUSS (dyspnea on exertion) End stage renal disease Glasses Headache HFrEF (heart failure with reduced ejection fraction) History of fall , about 10 feet into gravel History of MRSA infection Hx of hyperparathyroidism Hypertension Hypokinesis on echo 2022 Impacted cerumen of right ear Left serous otitis media Low back pain with left-sided sciatica Malrotation colon Medically noncompliant Migraine Mitral regurgitation Need for isolation SOBOE (shortness of breath on exertion) Trigger finger, right middle finger Vascular dialysis catheter in place Weakness Wrist sign 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 [facility] [id number] Note Date of Service 12/20/2024 Reason for Consultation Battery life Referring Physician Dr. [place] History of Present Illness This is a 49-year-old male with a past medical history significant for ESRD [on dialysis], mild CAD[[facility] 2022], heart failure with improved ejection fraction [EF 30% in 2022 to 50% 10/11/2024], mild aortic stenosis [peak systolic velocity 2.4, mean systolic gradient 13, DVI 0.5, YARI 1.6], mild mitral regurgitation, pulmonary hypertension [RVSP 41], hypertension, COPD, nonischemic cardiomyopathy status post ICD presented due to chest pain and respiratory distress for which the patient was intubated. On initial arrival, blood pressure was 211/138 with a heart rate of 113. CBC unremarkable except for hemoglobin of 8. INR 1. CMP remarkable for creatinine 16.9, calcium of 7.8. NT proBNP greater than35,000. Troponins negative x 4. TSH 6.9. Patient underwent a CT chest which was negative for pulmonary embolism, showed moderate cardiomegaly with pulmonary edema and small right pleural effusion. Right lower lobe and middle lobe airspace disease due to pneumonia or atelectasis. Peritoneal thickening around liver showing mild progression since 10/11/2021. EKG showing normal sinus rhythm at 85 bpm with underlying left anterior fascicular block Device interrogation reviewed. Patient currently on JANET with 6% battery life remaining. ICD inserted 2014 [employer]ron[employer]. Currently set at DDD. No VT, VF, AT, AF. A sensed V sensed 100%. Review of Systems Negative except for those mentioned above Physical Exam Vitals and Measurements T: 37.0 C (Oral) TMIN: 36.3 C (Skin) TMAX: 37.2 C (Oral) HR: 84 (Monitored) RR: 17 BP: 150/76 SpO2:96% Weight Dosing Weight: 75.2 kg (12/18/24) Dosing Weight: 75.2 kg (12/18/24) General: AAOX3, NAD HEENT: Anicteric sclera, MMM Neck: Trachea midline, no JVD appreciated CVS: RRR, normal S1/S2, no murmurs/rubs/gallops Lung: CTAB, no wheezes/rhonchi/rales Abd: Soft, NT/ND Extrem: WWP, no LE edema Skin: Warm, Intact Neuro: AAOX3, spontaneous movement of all extremities Psych: Appropriate mood & affect Lab Results 12/20 07:01 WBC: 9.0 Hgb: 7.2 L Hct: 21.8 L Platelet: 229 Neutrophil %: 67.3 Glucose Level: 88 Glucose Level: 88 Sodium Level: 138 Sodium Level: 138 Potassium Level: 4.3 Potassium Level: 4.3 BUN: 30.0 H BUN: 30.0 H Creatinine Lvl (s): 9.51 H Creatinine Lvl (s): 9.51 H 12/19 06:39 WBC: 6.7 Hgb: 7.3 L Hct: 22.3 L Platelet: 234 Neutrophil %: 73.1 Glucose Level: 91 Glucose Level: 91 Sodium Level: 138 Sodium Level: 138 Potassium Level: 5.6 H Potassium Level: 5.6 H BUN: 44.0 H BUN: 44.0 H Creatinine Lvl (s): 11.63 H Creatinine Lvl (s): 11.63 H Assessment/Plan Concern for low battery life Acute on chronic heart failure with improved ejection fraction Fluid overload due to ESRD History of ESRD [on dialysis], mild CAD [[facility] 2022], heart failure with improved ejection fraction [EF 30% in 2022 to 50% 10/11/2024], mild aortic stenosis [peak systolic velocity 2.4, mean systolic gradient 13, DVI 0.5, YARI 1.6], mild mitral regurgitation, pulmonary hypertension [RVSP 41], hypertension, COPD, nonischemic cardiomyopathy status post ICD Concern for low battery life Currently in JANET with 6% battery life remaining. Will follow-up as an outpatient to proceed with replacement Thank you for allowing us to participate in the care of this patient. Case discussed with attendingphysician. We will sign off. Do not hesitate to contact us if you have any questions or concerns Problem List/Past Medical History Ongoing Abdominal pain AICD (automatic cardioverter/defibrillator) present Anemia Ankle injury Anxiety Assistance needed with transportation BMI 26.0-26.9,adult CAD in [place] artery Cardiomyopathy Chest pain Chronic renal failure Cigarette smoker COPD (chronic obstructive pulmonary disease) Coronary artery calcification, severe on CT 2024 Depression STRAUSS (dyspnea on exertion) End stage renal disease Glasses Headache HFrEF (heart failure with reduced ejection fraction) History of fall , about 10 feet into gravel History of MRSA infection Hx of hyperparathyroidism Hypertension Hypokinesis on echo 2022 Impacted cerumen of right ear Left serous otitis media Low back pain with left-sided sciatica Malrotation colon Medically noncompliant Migraine Mitral regurgitation Need for isolation SOBOE (shortness of breath on exertion) Trigger finger, right middle finger Vascular dialysis catheter in place Weakness Wrist sign 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 Procedure/Surgical History Defibrillator: 01/24/15 Peritoneal procedure Kidney transplant Parathyroid Dialysis catheter Nasal septoplasty Cholecystectomy Cholecystectomy Parathyroidectomy Medications Inpatient albuterol 2.5 mg/3 mL (0.083%) inhalation solution, 2.5 mg= 3 mL, Inhalation, QIDRT aspirin 81 mg oral delayed release tablet, 81 mg= 1 tab(s), Oral, Daily atorvastatin, 40 mg= 1 tab(s), Oral, qDay calcium acetate, 2668 mg= 4 tab(s), Oral, TIDM carvedilol 3.125 mg oral tablet, 3.125 mg= 1 tab(s), Oral, BIDM Colace, 100 mg= 1 cap(s), Oral, BID, PRN Dexmedetomidine for IV 400 mcg [0.2 mcg/kg/hr] + Sodium Chloride 0.9% intravenous solution 96 mL Dextrose 50% IV Push, 25 gram(s)= 50 mL, IV Push, AsDirected, PRN DuoNeb, 3 mL, Inhalation, q4hRT, PRN fentaNYL for IV 1,250 mcg [25 mcg/hr] + NS PMX titrate 250 mL furosemide, 40 mg= 4 mL, IV Push, BID heparin 5000 units/mL injection, 5000 unit(s)= 1 mL, Subcutaneous, q8h isosorbide mononitrate 30 mg oral tablet, extended release, 60 mg= 2 tab(s), Oral, qDayAC magnesium sulfate for IV bolus, 2 gram(s)= 50 mL, IV Piggyback, AsDirected, PRN magnesium sulfate for IV bolus, 4 gram(s)= 100 mL, IV Piggyback, AsDirected, PRN magnesium sulfate for IV bolus Milk of Magnesia, 30 mL, Oral, qHS, PRN Miralax Powder Packet, 17 gram(s)= 15 mL, Oral, qDay, PRN Nicoderm C-Q 14 mg/24 hr transdermal film, extended release, 14 mg= 1 patch(es), Transdermal, q24h Nicoderm C-Q 21 mg/24 hr transdermal film, extended release, 21 mg= 1 patch(es), Transdermal, q24h nicotine (Nicoderm Patch REMOVAL), 1 EA, Miscellaneous, q24h potassium chloride, 20 mEq= 1 tab(s), Oral, AsDirected, PRN potassium chloride, 40 mEq= 2 tab(s), Oral, AsDirected, PRN potassium chloride, 40 mEq= 2 tab(s), Oral, AsDirected, PRN potassium chloride bolus, 20 mEq= 100 mL, IV Piggyback, AsDirected, PRN Propofol for IV 1,000 mg [10 mcg/kg/min] + IV Premix Diluent titrate 100 mL Protonix IV Push, 40 mg, IV Push, BIDAC Pulmicort Respules 0.25 mg/2 mL inhalation suspension, 0.25 mg= 2 mL, Inhalation, BIDRT Renvela 800 mg oral tablet, 800 mg= 1 tab(s), Oral, TIDM Tylenol, 650 mg= 2 tab(s), Oral, q4h, PRN Zofran, 4 mg= 2 mL, IV Push, q4h, PRN Home acetaminophen 325 mg oral capsule, 650 mg= 2 cap(s), Oral, q4h, PRN albuterol MDI (90 mcg/inh) CFC free inhalation aerosol, 1 puff(s), Inhalation, q4h, PRN, 3 refills aspirin 81 mg oral delayed release tablet, 81 mg= 1 tab(s), Oral, Daily, 3 refills atorvastatin 40 mg oral tablet, 40 mg= 1 tab(s), Oral, qDay, 3 refills calcium acetate 667 mg oral capsule, 2668 mg= 4 cap(s), Oral, TIDM carvedilol 3.125 mg oral tablet, 3.125 mg= 1 tab(s), Oral, BIDM, 3 refills isosorbide mononitrate 30 mg oral tablet, extended release, 60 mg= 2 tab(s), Oral, qDayAC, 3 refills midodrine 5 mg oral tablet, 10 mg= 2 tab(s), Oral, TID nicotine 21 mg/24 hr transdermal film, extended release, 21 mg= 1 patch(es), Transdermal, qDay Renvela 800 mg oral tablet (NF), 800 mg= 1 tab(s), Oral, TIDM Symbicort 80 mcg-4.5 mcg/inh Inhaler, 2 puff(s), Inhalation, BID, 2 refills Allergies penicillin (Moderate) Anaphylaxis, rash Contrast dye Skin rash, Fever Social History Smoking Status - 11/25/2017 Current every day smoker Alcohol - Denies Alcohol Use, 01/16/2017 Use: Never., 12/07/2018 Nutrition/Health Caffeine intake amount: 3-4 servings/day., 05/08/2023 Substance Abuse - Denies Substance Abuse, 01/16/2017 Use: Never., 12/07/2018 Tobacco Nicotine Use: 4 or less cigarettes(less than 1/4 pack)/day in last 30 days. Type: Cigarettes., 11/30/2024 Family History Diabetes mellitus: Father. Heart disease: Father. Hypertension: Father. Health Status Family Member(s) Immunizations pneumococcal 13-valent conjugate vaccine: 0 unknown unit (10/23/16) pneumococcal 23-valent vaccine(Pneumovax: 0 unknown unit (06/03/15) pneumococcal 23-valent vaccine(Pneumovax: 0.5 mL (02/24/14) pneumococcal 23-valent vaccine(Pneumovax: 0 unknown unit (06/23/07) SARS-CoV-2 mRNA (toyiselnameran) vaccine: 0.3 unknown unit (05/28/21) SARS-CoV-2 mRNA (tozinameran) vaccine: 0.3 unknown unit (05/07/21) tetanus/diphtheria/pertussMUL.ORD![id number]: 0.5 mL (10/23/20) tetanus/diphtheria/pertussMUL.ORD![id number]: 0.5 mL (11/19/13) Digitally Signed by CLARK GARIBAY MD on 12/20/2024 04:[address] [id number] Nephrology Progress note Subjective resting Objective Vitals and Measurements T: 37.0 C (Oral) TMIN: 36.3 C (Skin) TMAX: 37.2 C (Oral) HR: 84 (Monitored) RR: 17 BP: 150/76 SpO2:96% Intake and Output 7AM Yesterday to 7AM Today Intake and Output (Last 24 hours) Intake Oral Intake 0.00 Output Urine Voided 0.00 Hemodialysis 0.00 Total Summary Total Intake 0.00 Total Output 0.00 Fluid Balance 0.00 Physical Exam General: Alert, awake and oriented x 3 HEENT: Icterus-; Pallor + Neck: No swelling. JVD normal. Chest: Chest equal in expansion, and clear to auscultation bilaterally. Heart: s1s2 heard. regular. No murmur/rub appreciated. Abdomen: Soft. Nondistended. Nontender. Bowel sounds heard. Neuro: asterexis-; sensation b/l intact. Skin: rash-; ecchymosis - Musculoskeletal: joint effusion -; cyanosis-; lower extremitity edema: - Genitourinary/rectal: FMS: - velazquez:- Breast: deferred Access: Weight Dosing Weight: 75.2 kg (12/18/24) Dosing Weight: 75.2 kg (12/18/24) Medications Medications (31) Active Scheduled: (14) albuterol 0.083% Soln UD (2.5mg/3 mL) 2.5 mg 3 mL, Inhalation, QIDRT aspirin 81 mg EC 81 mg 1 tab(s), Oral, Daily atorvastatin 40 mg tablet 40 mg 1 tab(s), Oral, qDay budesonide 0.25 mg/2 mL Susp UD 0.25 mg 2 mL, Inhalation, BIDRT calcium acetate 667 mg Tab 2,668 mg 4 tab(s), Oral, TIDM carvedilol 3.125 mg tablet 3.125 mg 1 tab(s), Oral, BIDM furosemide 40 mg/4 mL vial 40 mg 4 mL, IV Push, BID heparin 5,000 units/mL (1 mL) vial 5,000 unit(s) 1 mL, Subcutaneous, q8h isosorbide mononitrate 30 mg ER tablet 60 mg 2 tab(s), Oral, qDayAC Nicoderm patch REMOVAL 1 EA, Miscellaneous, q24h nicotine 14 mg/24 hr ER patch 14 mg 1 patch(es), Transdermal, q24h nicotine 21 mg/24 hr ER patch 21 mg 1 patch(es), Transdermal, q24h pantoprazole 40 mg VIAL 40 mg, IV Push, BIDAC sevelamer carbonate 800 mg tablet 800 mg 1 tab(s), Oral, TIDM Continuous: (3) dexmedetomidine 400 mcg [0.2 mcg/kg/hr] + Sodium Chloride 0.9% 96 mL 96 mL, Intravenous, 3.92 mL/hr fentaNYL 1,250 mcg [25 mcg/hr] + NS Premix Diluent 250 mL 250 mL, Intravenous, 5 mL/hr propofol 1,000 mg [10 mcg/kg/min] + IV Premix Diluent 100 mL 100 mL, Intravenous, 4.5 mL/hr PRN: (14) acetaminophen 325 mg Tablet 650 mg 2 tab(s), Oral, q4h albuterol - ipratropium 2.5 mg-0.5 mg/3 mL Inhal Elizabeth UD 3 mL, Inhalation, q4hRT dextrose 50% Solution Disp syringe 50 mL 25 gram(s) 50 mL, IV Push, AsDirected docusate sodium 100 mg Capsule 100 mg 1 cap(s), Oral, BID magnesium hydroxide 8% Suspension 30 mL UD 30 mL, Oral, qHS magnesium sulfate 4 gram(s)/100mL PMX 4 g 100 mL, IV Piggyback, AsDirected magnesium sulfate 50% (500mg/mL) 6 g 12 mL, IV Piggyback, AsDirected magnesium sulfate PMX 2 g 50 mL, IV Piggyback, AsDirected ondansetron 2 mg/ 1 mL 2 mL INJ 4 mg 2 mL, IV Push, q4h polyethylene glycol 3350 - UD packet 17 gram(s) 15 mL, Oral, qDay potassium chloride (PMX) 20 mEq/100 mL 20 mEq 100 mL, IV Piggyback, AsDirected potassium chloride 20 mEq ER tablet 20 mEq 1 tab(s), Oral, AsDirected potassium chloride 20 mEq ER tablet 40 mEq 2 tab(s), Oral, AsDirected potassium chloride 20 mEq ER tablet 40 mEq 2 tab(s), Oral, AsDirected Lab Results 12/20 07:01 WBC: 9.0 Hgb: 7.2 L Hct: 21.8 L Platelet: 229 Neutrophil %: 67.3 Glucose Level: 88 Glucose Level: 88 Sodium Level: 138 Sodium Level: 138 Potassium Level: 4.3 Potassium Level: 4.3 BUN: 30.0 H BUN: 30.0 H Creatinine Lvl (s): 9.51 H Creatinine Lvl (s): 9.51 H 12/19 06:39 WBC: 6.7 Hgb: 7.3 L Hct: 22.3 L Platelet: 234 Neutrophil %: 73.1 Glucose Level: 91 Glucose Level: 91 Sodium Level: 138 Sodium Level: 138 Potassium Level: 5.6 H Potassium Level: 5.6 H BUN: 44.0 H BUN: 44.0 H Creatinine Lvl (s): 11.63 H Creatinine Lvl (s): 11.63 H EKG EKG - Completed -- 12/18/24 7:33:00 EDT Assessment/Plan COPD (chronic obstructive pulmonary disease) Time Spent End-stage renal disease on hemodialysis at home Hypotension Recent hypertensive urgency Respiratory failure Chest pain Hyperkalemia Plan Status post dialysis yesterday. Hemoglobin trends are bit concerning but will optimize with Epogen on dialysis. Metabolically reasonable today hemodynamics are reasonable as well. will plan for hd today. ogoing cardiac plans. Digitally Signed by ROBERT GARCIA MD on 12/20/2024 12:32 PM Digitally Signed by ROBERT GARCIA MD on 12/20/2024 12:[address] [facility] [id number] Cardiology Progress note Date of Service 12/19/2024 Subjective Patient examined at bedside. Patient is alert oriented x 3. Denies any complaints. Background: A 49-year-old male with PMH of ESRD [on dialysis], CAD [mild; 09/2022], chronic HFimpEF [EF 50%; 09/2022], active smoker, hypertension, COPD, status post AICD in situ, presented as a transfer from [place] [facility] because of chest pain. On encounter, the patient was examined in room 323. He was intubated. As per the records, patient went to [facility] ED because of midsternal chest pain radiating to the left arm. STEMI alert was called, her troponins were negative, EKG was not concerning for STEMI was aborted. Patient went into respiratory arrest and was intubated at [facility] before transferring to CCU. Objective Vitals and Measurements T: 36.5 C (Oral) TMIN: 36.2 C (Oral) TMAX: 37 C (Oral) HR: 70 (Monitored) RR: 20 BP: 94/49 SpO2: 98% HT: 165.1 cm WT: 75.2 kg BMI: 27.59 Intake and Output 7AM Yesterday to 7AM Today Intake and Output (Last 24 hours) Intake Enteral Tube Intake: 270.00 Administration Information 914.45 Oral Intake 0.00 Output Urine Voided 0.00 Hemodialysis 3350.00 Gastric Tube Output: 400.00 Stool Count 0.00 Total Summary Total Intake 1184.45 Total Output 3750.00 Fluid Balance -2565.55 Physical Exam General: AAOX3, NAD HEENT: Anicteric sclera, MMM Neck: Trachea midline, no JVD appreciated CVS: RRR, normal S1/S2, no murmurs/rubs/gallops Lung: CTAB, no wheezes/rhonchi/rales Abd: Soft, NT/ND Extrem: WWP, no LE edema Skin: Warm, Intact Neuro: AAOX3, spontaneous movement of all extremities Psych: Appropriate mood & affect Weight Dosing Weight: 75.2 kg (12/18/24) Dosing Weight: 75.2 kg (12/18/24) Medications Medications (27) Active Scheduled: (10) albuterol 0.083% Soln UD (2.5mg/3 mL) 2.5 mg 3 mL, Inhalation, QIDRT aspirin 81 mg EC 81 mg 1 tab(s), Oral, Daily atorvastatin 40 mg tablet 40 mg 1 tab(s), Oral, qDay budesonide 0.25 mg/2 mL Susp UD 0.25 mg 2 mL, Inhalation, BIDRT calcium acetate 667 mg Tab 2,668 mg 4 tab(s), Oral, TIDM carvedilol 3.125 mg tablet 3.125 mg 1 tab(s), Oral, BIDM furosemide 40 mg/4 mL vial 40 mg 4 mL, IV Push, BID isosorbide mononitrate 30 mg ER tablet 60 mg 2 tab(s), Oral, qDayAC pantoprazole 40 mg VIAL 40 mg, IV Push, BIDAC sevelamer carbonate 800 mg tablet 800 mg 1 tab(s), Oral, TIDM Continuous: (3) dexmedetomidine 400 mcg [0.2 mcg/kg/hr] + Sodium Chloride 0.9% 96 mL 96 mL, Intravenous, 3.92 mL/hr fentaNYL 1,250 mcg [25 mcg/hr] + NS Premix Diluent 250 mL 250 mL, Intravenous, 5 mL/hr propofol 1,000 mg [10 mcg/kg/min] + IV Premix Diluent 100 mL 100 mL, Intravenous, 4.5 mL/hr PRN: (14) acetaminophen 325 mg Tablet 650 mg 2 tab(s), Oral, q4h albuterol - ipratropium 2.5 mg-0.5 mg/3 mL Inhal Elizabeth UD 3 mL, Inhalation, q4hRT dextrose 50% Solution Disp syringe 50 mL 25 gram(s) 50 mL, IV Push, AsDirected docusate sodium 100 mg Capsule 100 mg 1 cap(s), Oral, BID magnesium hydroxide 8% Suspension 30 mL UD 30 mL, Oral, qHS magnesium sulfate 4 gram(s)/100mL PMX 4 g 100 mL, IV Piggyback, AsDirected magnesium sulfate 50% (500mg/mL) 6 g 12 mL, IV Piggyback, AsDirected magnesium sulfate PMX 2 g 50 mL, IV Piggyback, AsDirected ondansetron 2 mg/ 1 mL 2 mL INJ 4 mg 2 mL, IV Push, q4h polyethylene glycol 3350 - UD packet 17 gram(s) 15 mL, Oral, qDay potassium chloride (PMX) 20 mEq/100 mL 20 mEq 100 mL, IV Piggyback, AsDirected potassium chloride 20 mEq ER tablet 20 mEq 1 tab(s), Oral, AsDirected potassium chloride 20 mEq ER tablet 40 mEq 2 tab(s), Oral, AsDirected potassium chloride 20 mEq ER tablet 40 mEq 2 tab(s), Oral, AsDirected Lab Results 12/19 06:39 WBC: 6.7 Hgb: 7.3 L Hct: 22.3 L Platelet: 234 Neutrophil %: 73.1 12/18 17:43 Glucose Level: 114 H Sodium Level: 138 Potassium Level: 4.7 BUN: 33.0 H Creatinine Lvl (s): 9.32 H 12/18 09:29 WBC: 9.3 Hgb: 8.0 L Hct: 25.1 L Platelet: 272 Glucose Level: 165 H Sodium Level: 138 Potassium Level: 5.3 H BUN: 72.0 H Creatinine Lvl (s): 18.40 H EKG Electrocardiogram (EKG) - InProcess -- 12/18/24 7:33:00 EDT Assessment/Plan 1. Acute on chronic HFimpEF exacerbation 2. Nonischemic cardiomyopathy Patient presented to [facility] because of chest pain Blood pressure on admission was 172/97, patient was intubated [results not documented well] CT PE protocol suggestive of pulmonary vascular congestion proBNP: 477136 ECHO [09/2024]: EF 50% [facility] Plan Fluid restriction to 1500 mL/day Salt restricted diet Daily weight monitoring Accurate input and output CONTINUE carvedilol 3.125 mg p.o. twice daily CONTINUE Isorbid mononitrate 60 mg p.o. daily Negative fluid balance based on dialysis FOLLOW ECHO Not on ZELDA/ARB/ARNI/SGLT2 because of ESRD status For chest pain with negative troponins, possible stress test once he is extubated. 3. Hypertensive urgency 4. Hypertension Blood pressure at presentation of 172 systolic Patient likely went into flash pulmonary edema which was likely the reason for intubation Blood pressure now is low because patient is on propofol and we will try to reduce the propofol because the EF is known to be low CONTINUE carvedilol 3.125 mg p.o. twice daily CONTINUE isosorbide mononitrate 60 mg p.o. daily 5. ESRD On dialysis s/p 2 transplants failed Plan Nephrology consult for scheduled dialysis 6. Hypertension Blood pressure is low because of propofol Plan CONTINUE carvedilol 3.25 mg p.o. twice daily 7. COPD Patient is currently intubated Plan Critical care 8. Status post AICD Biortronik pacemaker > 10 years old Family says the battery is down to 1% Plan Will call in EP for advice [1] History and Physical; CARMELO KIM MD 12/18/2024 10:48 EDT Digitally Signed by CARMELO KIM MD on 12/19/2024 10:[address] [facility] [id number] Nephrology Progress note Date of Service December 19, 2024 Subjective No review of systems possible due to sedation and intubation Objective Vitals and Measurements T: 36.7 C (Oral) TMIN: 36.2 C (Oral) TMAX: 37 C (Oral) HR: 69 (Monitored) RR: 20 BP: 91/42 SpO2: 99% HT: 165.1 cm WT: 75.2 kg BMI: 27.59 Intake and Output 7AM Yesterday to 7AM Today Intake and Output (Last 24 hours) Intake Enteral Tube Intake: 270.00 Administration Information 914.45 Oral Intake 0.00 Output Urine Voided 0.00 Hemodialysis 3350.00 Gastric Tube Output: 400.00 Stool Count 0.00 Total Summary Total Intake 1184.45 Total Output 3750.00 Fluid Balance -2565.55 Physical Exam General: Intubated. Sedate HEENT: Endotracheal tube in place. JVD present. Lungs: More clear Heart: Regular. 1-2 out of 6 systolic murmur Abdomen: Positive bowel sounds, soft, no palpable masses Extremities: Minimal edema, pulses 2+ in all 4 extremities Access: Right arm AV fistula: Positive bruit and thrill. Very aneurysmal Skin: No rashes, normal turgor Weight Dosing Weight: 75.2 kg (12/18/24) Dosing Weight: 75.2 kg (12/18/24) Medications Medications (27) Active Scheduled: (10) albuterol 0.083% Soln UD (2.5mg/3 mL) 2.5 mg 3 mL, Inhalation, QIDRT aspirin 81 mg EC 81 mg 1 tab(s), Oral, Daily atorvastatin 40 mg tablet 40 mg 1 tab(s), Oral, qDay budesonide 0.25 mg/2 mL Susp UD 0.25 mg 2 mL, Inhalation, BIDRT calcium acetate 667 mg Tab 2,668 mg 4 tab(s), Oral, TIDM carvedilol 3.125 mg tablet 3.125 mg 1 tab(s), Oral, BIDM furosemide 40 mg/4 mL vial 40 mg 4 mL, IV Push, BID isosorbide mononitrate 30 mg ER tablet 60 mg 2 tab(s), Oral, qDayAC pantoprazole 40 mg VIAL 40 mg, IV Push, BIDAC sevelamer carbonate 800 mg tablet 800 mg 1 tab(s), Oral, TIDM Continuous: (3) dexmedetomidine 400 mcg [0.2 mcg/kg/hr] + Sodium Chloride 0.9% 96 mL 96 mL, Intravenous, 3.92 mL/hr fentaNYL 1,250 mcg [25 mcg/hr] + NS Premix Diluent 250 mL 250 mL, Intravenous, 5 mL/hr propofol 1,000 mg [10 mcg/kg/min] + IV Premix Diluent 100 mL 100 mL, Intravenous, 4.5 mL/hr PRN: (14) acetaminophen 325 mg Tablet 650 mg 2 tab(s), Oral, q4h albuterol - ipratropium 2.5 mg-0.5 mg/3 mL Inhal Elizabeth UD 3 mL, Inhalation, q4hRT dextrose 50% Solution Disp syringe 50 mL 25 gram(s) 50 mL, IV Push, AsDirected docusate sodium 100 mg Capsule 100 mg 1 cap(s), Oral, BID magnesium hydroxide 8% Suspension 30 mL UD 30 mL, Oral, qHS magnesium sulfate 4 gram(s)/100mL PMX 4 g 100 mL, IV Piggyback, AsDirected magnesium sulfate 50% (500mg/mL) 6 g 12 mL, IV Piggyback, AsDirected magnesium sulfate PMX 2 g 50 mL, IV Piggyback, AsDirected ondansetron 2 mg/ 1 mL 2 mL INJ 4 mg 2 mL, IV Push, q4h polyethylene glycol 3350 - UD packet 17 gram(s) 15 mL, Oral, qDay potassium chloride (PMX) 20 mEq/100 mL 20 mEq 100 mL, IV Piggyback, AsDirected potassium chloride 20 mEq ER tablet 20 mEq 1 tab(s), Oral, AsDirected potassium chloride 20 mEq ER tablet 40 mEq 2 tab(s), Oral, AsDirected potassium chloride 20 mEq ER tablet 40 mEq 2 tab(s), Oral, AsDirected Lab Results 12/19 06:39 WBC: 6.7 Hgb: 7.3 L Hct: 22.3 L Platelet: 234 Neutrophil %: 73.1 Glucose Level: 91 Glucose Level: 91 Sodium Level: 138 Sodium Level: 138 Potassium Level: 5.6 H Potassium Level: 5.6 H BUN: 44.0 H BUN: 44.0 H Creatinine Lvl (s): 11.63 H Creatinine Lvl (s): 11.63 H 12/18 17:43 Glucose Level: 114 H Sodium Level: 138 Potassium Level: 4.7 BUN: 33.0 H Creatinine Lvl (s): 9.32 H 12/18 09:29 WBC: 9.3 Hgb: 8.0 L Hct: 25.1 L Platelet: 272 Glucose Level: 165 H Sodium Level: 138 Potassium Level: 5.3 H BUN: 72.0 H Creatinine Lvl (s): 18.40 H EKG No qualifying data available. Assessment/Plan 1. End-stage renal disease: Patient does home hemodialysis. Has large aneurysmal right arm AV fistula. Underwent hemodialysis yesterday. Volume status improved. Blood pressure now low. Will need treatment today for hyperkalemia however no fluid removal due to hypotension. 2. Hypertensive urgency: Likely due to fluid overload. Blood pressure now low after fluid removal with dialysis. Temporarily required norepinephrine. On 30% FiO2. 3. Respiratory failure: Secondary to pulmonary edema. Improved. Remains intubated on 30% FiO2. Willreassess after dialysis. 4. Chest pain: CT of chest negative for PE. Being evaluated for ischemic heart disease by cardiology. 5. Anemia: Dose Epogen with dialysis. 6. Hyperkalemia: Plan dialysis again today. Digitally Signed by CHAYA OWENS MD on 12/19/2024 09:[address] [facility] [id number] Cardiology Progress note Date of Service 12/19/2024 Subjective Patient examined at bedside. Patient is alert oriented x 3. Denies any complaints. Background: A 49-year-old male with PMH of ESRD [on dialysis], CAD [mild; 09/2022], chronic HFimpEF [EF 50%; 09/2022], active smoker, hypertension, COPD, status post AICD in situ, presented as a transfer from [facility] because of chest pain. On encounter, the patient was examined in room 323. He was intubated. As per the records, patient went to [facility] ED because of midsternal chest pain radiating to the left arm. STEMI alert was called, her troponins were negative, EKG was not concerning for STEMI was aborted. Patient went into respiratory arrest and was intubated at [facility] before transferring to CCU. Objective Vitals and Measurements T: 36.5 C (Oral) TMIN: 36.2 C (Oral) TMAX: 37 C (Oral) HR: 70 (Monitored) RR: 20 BP: 94/49 SpO2: 98% HT: 165.1 cm WT: 75.2 kg BMI: 27.59 Intake and Output 7AM Yesterday to 7AM Today Intake and Output (Last 24 hours) Intake Enteral Tube Intake: 270.00 Administration Information 914.45 Oral Intake 0.00 Output Urine Voided 0.00 Hemodialysis 3350.00 Gastric Tube Output: 400.00 Stool Count 0.00 Total Summary Total Intake 1184.45 Total Output 3750.00 Fluid Balance -2565.55 Physical Exam General: AAOX3, NAD HEENT: Anicteric sclera, MMM Neck: Trachea midline, no JVD appreciated CVS: RRR, normal S1/S2, no murmurs/rubs/gallops Lung: CTAB, no wheezes/rhonchi/rales Abd: Soft, NT/ND Extrem: WWP, no LE edema Skin: Warm, Intact Neuro: AAOX3, spontaneous movement of all extremities Psych: Appropriate mood & affect Weight Dosing Weight: 75.2 kg (12/18/24) Dosing Weight: 75.2 kg (12/18/24) Medications Medications (27) Active Scheduled: (10) albuterol 0.083% Soln UD (2.5mg/3 mL) 2.5 mg 3 mL, Inhalation, QIDRT aspirin 81 mg EC 81 mg 1 tab(s), Oral, Daily atorvastatin 40 mg tablet 40 mg 1 tab(s), Oral, qDay budesonide 0.25 mg/2 mL Susp UD 0.25 mg 2 mL, Inhalation, BIDRT calcium acetate 667 mg Tab 2,668 mg 4 tab(s), Oral, TIDM carvedilol 3.125 mg tablet 3.125 mg 1 tab(s), Oral, BIDM furosemide 40 mg/4 mL vial 40 mg 4 mL, IV Push, BID isosorbide mononitrate 30 mg ER tablet 60 mg 2 tab(s), Oral, qDayAC pantoprazole 40 mg VIAL 40 mg, IV Push, BIDAC sevelamer carbonate 800 mg tablet 800 mg 1 tab(s), Oral, TIDM Continuous: (3) dexmedetomidine 400 mcg [0.2 mcg/kg/hr] + Sodium Chloride 0.9% 96 mL 96 mL, Intravenous, 3.92 mL/hr fentaNYL 1,250 mcg [25 mcg/hr] + NS Premix Diluent 250 mL 250 mL, Intravenous, 5 mL/hr propofol 1,000 mg [10 mcg/kg/min] + IV Premix Diluent 100 mL 100 mL, Intravenous, 4.5 mL/hr PRN: (14) acetaminophen 325 mg Tablet 650 mg 2 tab(s), Oral, q4h albuterol - ipratropium 2.5 mg-0.5 mg/3 mL Inhal Elizabeth UD 3 mL, Inhalation, q4hRT dextrose 50% Solution Disp syringe 50 mL 25 gram(s) 50 mL, IV Push, AsDirected docusate sodium 100 mg Capsule 100 mg 1 cap(s), Oral, BID magnesium hydroxide 8% Suspension 30 mL UD 30 mL, Oral, qHS magnesium sulfate 4 gram(s)/100mL PMX 4 g 100 mL, IV Piggyback, AsDirected magnesium sulfate 50% (500mg/mL) 6 g 12 mL, IV Piggyback, AsDirected magnesium sulfate PMX 2 g 50 mL, IV Piggyback, AsDirected ondansetron 2 mg/ 1 mL 2 mL INJ 4 mg 2 mL, IV Push, q4h polyethylene glycol 3350 - UD packet 17 gram(s) 15 mL, Oral, qDay potassium chloride (PMX) 20 mEq/100 mL 20 mEq 100 mL, IV Piggyback, AsDirected potassium chloride 20 mEq ER tablet 20 mEq 1 tab(s), Oral, AsDirected potassium chloride 20 mEq ER tablet 40 mEq 2 tab(s), Oral, AsDirected potassium chloride 20 mEq ER tablet 40 mEq 2 tab(s), Oral, AsDirected Lab Results 12/19 06:39 WBC: 6.7 Hgb: 7.3 L Hct: 22.3 L Platelet: 234 Neutrophil %: 73.1 12/18 17:43 Glucose Level: 114 H Sodium Level: 138 Potassium Level: 4.7 BUN: 33.0 H Creatinine Lvl (s): 9.32 H 12/18 09:29 WBC: 9.3 Hgb: 8.0 L Hct: 25.1 L Platelet: 272 Glucose Level: 165 H Sodium Level: 138 Potassium Level: 5.3 H BUN: 72.0 H Creatinine Lvl (s): 18.40 H EKG Electrocardiogram (EKG) - InProcess -- 12/18/24 7:33:00 EDT Assessment/Plan 1. Acute on chronic HFimpEF exacerbation 2. Nonischemic cardiomyopathy Patient presented to [facility] ED because of chest pain Blood pressure on admission was 172/97, patient was intubated [results not documented well] CT PE protocol suggestive of pulmonary vascular congestion proBNP: 249365 ECHO [09/2024]: EF 50% [facility] Plan Fluid restriction to 1500 mL/day Salt restricted diet Daily weight monitoring Accurate input and output CONTINUE carvedilol 3.125 mg p.o. twice daily CONTINUE Isorbid mononitrate 60 mg p.o. daily Negative fluid balance based on dialysis FOLLOW ECHO Not on ZELDA/ARB/ARNI/SGLT2 because of ESRD status For chest pain with negative troponins, possible stress test once he is extubated. 3. Hypertensive urgency 4. Hypertension Blood pressure at presentation of 172 systolic Patient likely went into flash pulmonary edema which was likely the reason for intubation Blood pressure now is low because patient is on propofol and we will try to reduce the propofol because the EF is known to be low CONTINUE carvedilol 3.125 mg p.o. twice daily CONTINUE isosorbide mononitrate 60 mg p.o. daily 5. ESRD On dialysis s/p 2 transplants failed Plan Nephrology consult for scheduled dialysis 6. Hypertension Blood pressure is low because of propofol Plan CONTINUE carvedilol 3.25 mg p.o. twice daily 7. COPD Patient is currently intubated Plan Critical care 8. Status post AICD Biortronik pacemaker > 10 years old Family says the battery is down to 1% Plan Will call in EP for advice [1] History and Physical; CARMELO KIM MD 12/18/2024 10:48 EDT Digitally Signed by CARMELO KIM MD on 12/19/2024 10:[address] [id number] Note [facility] Cardiac Critical Care Progress Note Date: 12/19/2024 07:07:26 Patient Name: CARLITOS SWEENEY : 1975 ICU Admit Date: 12/18/24 Intubation Date: 12/18/24 Reason for Consult: Critical Care and Vent Management HPI: Carlitos Sweeney is a 49 year old male with PMH of ESRD on HD s/p failed kidney transplants (2006 and 2013), CAD, HFrEF, tobacco use, HTN, COPD, chronic anemia, and NICM s/p AICD in 2014 who presented to [facility] ED with chest pain radiating to his left arm. Troponin was negative and EKG was not concerning so STEMI was cancelled. He then went into respiratory distress and was intubated. Prior to transfer to [facility], a CT angio chest was negative for PE. He arrived to CCU intubated and sedated. Impression: Fluid overload ESRD on HD s/p failed kidney transplants (2006 and 2013) CAD HFrEF Tobacco use HTN COPD Chronic anemia NICM s/p AICD in 2014 Assessment/Plan: -Remains intubated and sedated on Propofol and Fentanyl. Adjusting to Precedex this morning and start weaning for extubation today -Nephrology consulted. HD yesterday and will today. -Echo ordered -NPO -Home meds restarted -Remainder per primary -Cardiac CCM to follow Allergies: Contrast dye; penicillin Objective: Vitals Signs(Last 24 hrs)__ Last Charted Minimum Maximum Temp 36.5(DEC 19 03:15) 36.5(DEC 19 03:15) 37(DEC 18 16:44) Heart Rate 63(DEC 19 06:12) 63(DEC 19 06:12) H 123(DEC 18 07:56) SBP L 88(DEC 19 06:12) L 85(DEC 18 09:28) H 260(DEC 18 07:45) DBP C 45(DEC 19 06:12) C 36(DEC 18 09:28) C 129(DEC 18 08:27) Intake and Output (Last 24 hours) Intake Enteral Tube Intake: 270.00 Administration Information 914.45 Oral Intake 0.00 Output Urine Voided 0.00 Hemodialysis 3350.00 Gastric Tube Output: 400.00 Stool Count 0.00 Total Summary Total Intake 1184.45 Total Output 3750.00 Fluid Balance -2565.55 PHYSICAL EXAM: GENERAL: Obese male intubated. Following commands and awakes to voice SKIN: warm and dry, no rashes noted. Multiple tattoos HEENT: atraumatic normocephalic. oral mucus membranes moist HEART: RRR LUNGS: clear to auscultation bilaterally ABDOMEN: soft,, non tender,, bowel sounds normal MUSCULOSKELETAL: Spontaneously moves all extremities x 4. VASCULAR: Bilateral pedal and radial pulses are palpable +2 and symmetric. no edema Labs: Event Name Event Result Date/Time WBC 9.3 10^3/mcL 12/18/24 09:29:00 Hgb 8 G/dL Low 12/18/24 09:29:00 Hct 25.1 % Low 12/18/24 09:29:00 Platelet 272 10^3/mcL 12/18/24 09:29:00 Glucose Level 114 mg/dL High 12/18/24 17:43:00 Sodium Level 138 mEq/L 12/18/24 17:43:00 Potassium Level 4.7 mEq/L 12/18/24 17:43:00 Chloride 99 mEq/L 12/18/24 17:43:00 CO2 26 mEq/L 12/18/24 17:43:00 BUN 33 mg/dL High 12/18/24 17:43:00 Creatinine Lvl (s) 9.32 mg/dL High 12/18/24 17:43:00 Magnesium Lvl 2.2 mg/dL 12/18/24 17:43:00 Phosphorus 8 mg/dL High 12/18/24 09:29:00 Calcium Ionized 0.93 mmol/L Low 12/18/24 09:29:00 Imaging: XR Chest 1 View Result Date: December 18, 2024 Verified By: GONZALO MCCALL, JAYCOB Reese CLINICAL STATEMENT: IMPRESSION: Loculated right pleural effusion. Multifocal airspace disease is mostconfluent in the right lung base. Follow to resolution. Support devices, as above Echo: pending Pertinent Reviewed: Allergies, Medications, Labs, Imaging, and Physician and Nursing Notes. Critical Care services I provided [id number] 45 minutes. The time involved in the performance of this care was exclusive of separately billable procedures, teaching time, and treating other patients. The time was spent personally by myself for the following activities: examination of the patient, ordering and/or performing treatment, reviewing the laboratory and radiographic studies and if applicable,ventilator management and blood gas interpretation. Patient treatment plan of care discussed with bedside RN. Noemí Moreno MD Cardiac Critical Care Digitally Signed by NOEMÍ MORENO MD on 12/19/2024 10:[address] [facility] [id number] Nephrology procedure note Date of Service December 18, 2024 Patient seen in dialysis. Blood pressure has decreased into the 120s. He is more sedated however. Discussed with family at bedside. Next scheduled treatment will be Friday and possibly tomorrow if needed for volume Digitally Signed by CHAYA OWENS MD on 12/18/2024 04:[address] [facility] [id number] Nurse Progress note Velazquez catheter ordered and 40mg IVP lasix BID to be given. Pt family is at bedside, and sisterrefusing for pt to have velazquez catheter placed or lasix given. Dr. Kim is aware. Digitally Signed by Martinez Chu RN on 12/18/2024 02:[address] [facility] [id number] Evaluation + Plan noteExtracted from: Title:History and Physical Author:CARMELO KIM MD Date:12/18/24 1. Acute on chronic HFimpEF exacerbation 2. Nonischemic cardiomyopathy Patient presented to [facility] ED because of chest pain Blood pressure on admission was 172/97, patient was intubated [results not documented well] CT PE protocol suggestive of pulmonary vascular congestion proBNP: [id number] ECHO [09/2024]: EF 50% [facility] Plan Fluid restriction to 1500 mL/day Salt restricted diet Daily weight monitoring Accurate input and output START furosemide 40 mg IVP every 12 hours --> will give a trial for 24 hours as family says he makes very little urine CONTINUE carvedilol 3.125 mg p.o. twice daily CONTINUE Isorbid mononitrate 60 mg p.o. daily FOLLOW ECHO Not on ZELDA/ARB/ARNI/SGLT2 because of ESRD status 3. Hypertensive urgency 4. Hypertension Blood pressure at presentation of 172 systolic Patient likely went into flash pulmonary edema which was likely the reason for intubation Blood pressure now is low because patient is on propofol and we will try to reduce the propofol because the EF is known to be low CONTINUE carvedilol 3.125 mg p.o. twice daily CONTINUE isosorbide mononitrate 60 mg p.o. daily 5. ESRD On dialysis s/p 2 transplants failed Plan Nephrology consult for scheduled dialysis 6. Hypertension Blood pressure is low because of propofol Plan CONTINUE carvedilol 3.25 mg p.o. twice daily 7. COPD Patient is currently intubated Plan Critical care 8. Status post AICD Biortronik pacemaker > 10 years old Family says the battery is down to 1% Plan Will call in EP for advice Addendum by KAYLAH ALCAZAR MD on December 18, 2024 12:03:39 EDT I have personally seen, examined, and evaluated the patient on the encounter date. I have reviewed the fellow s documentation and agree with the fellow s findings and plan as documented, unless otherwise stated. Future Appointments Appointment Date:01/14/2025 10:30:00 AM Scheduled Provider:CARLTON COLORADO Location:[facility] Appointment Type:[facility] Hospital Follow Up Appointment Date:08/26/2025 12:30:00 PM Scheduled Provider:MONIE ALSTON DO Location:[facility] Appointment Type: Wellness Annual Future Scheduled Tests Laboratory* Lipoprotein (a) 09/24/24 * Apolipoprotein B 09/24/24 * TSH with Reflex to FT4 09/24/24 * Prostate Specific Antigen 09/24/24 * A1C Hemoglobin 09/24/24 * Lipid Profile 09/24/24 Radiology* MRI Spine Lumbar w/o Contrast 09/14/[address] [facility] 06-28-2025 Critical care medicine Consult note [facility] Cardiac Critical Care Consultation Note Date: 12/18/2024 11:54:48 Patient Name: CARLITOS SWEENEY : 1975 ICU Admit Date: 12/18/24 Intubation Date: 12/18/24 Reason for Consult: Critical Care and Vent Management HPI: Carlitos Sweeney is a 49 year old male with PMH of ESRD on HD s/p failed kidney transplants (2006 and 2013), CAD, HFrEF, tobacco use, HTN, COPD, chronic anemia, and NICM s/p AICD in 2014 who presented to [facility] ED with chest pain radiating to his left arm. Troponin was negative and EKG was not concerning so STEMI was cancelled. He then went into respiratory distress and was intubated. Prior to transfer to [facility], a CT angio chest was negative for PE. He arrived to CCU intubated and sedated. 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 Nutrition/Health Details: Caffeine intake amount: 3-4 servings/day. Substance Abuse Risk Assessment: Denies Substance Abuse; Details: Use: Never. Tobacco Details: Nicotine Use: 4 or less cigarettes(less than 1/4 pack)/day in last 30 days. Type: Cigarettes. Family History: Father: Diabetes mellitus; Heart disease; Hypertension Medications: acetaminophen: 650 mg = 2 cap(s), Oral, q4h, PRN (for pain) albuterol: 1 puff(s), Inhalation, q4h, PRN (as needed for wheezing) aspirin: 81 mg = 1 tab(s), Oral, Daily atorvastatin: 40 mg = 1 tab(s), Oral, qDay budesonide-formoterol: 2 puff(s), Inhalation, BID calcium acetate: 2,668 mg = 4 cap(s), Oral, TIDM carvedilol: 3.125 mg = 1 tab(s), Oral, BIDM isosorbide mononitrate: 60 mg = 2 tab(s), Oral, qDayAC midodrine: 10 mg = 2 tab(s), Oral, TID nicotine: 21 mg = 1 patch(es), Transdermal, qDay, apply to skin sevelamer: 800 mg = 1 tab(s), Oral, TIDM Review of Systems: Patient unable to participate in ROS due to sedation and intubation. Objective: Vitals Signs(Last 24 hrs)__ Last Charted Minimum Maximum Temp 36.9(DEC 18 07:28) 36.9(DEC 18 07:28) 36.9(DEC 18:28) Heart Rate 76(DEC 18 11:28) 76(DEC 18 11:28) H 123(DEC 18 07:56) SBP 138(DEC 18 11:28) L 85(DEC 18 09:28) H 260(DEC 18 07:45) DBP 69(DEC 18 11:28) C 36(DEC 18:28) C 129(DEC 18 08:27) Intake and Output (Last 24 hours) Intake Output Total Summary Total Intake 0.00 Total Output 0.00 Fluid Balance 0.00 PHYSICAL EXAM: GENERAL: Obese male intubated and sedated. SKIN: warm and dry, no rashes noted HEENT: atraumatic normocephalic. oral mucus membranes moist HEART: RRR LUNGS: Coarse breath sounds throughout ABDOMEN: soft,, bowel sounds diminished MUSCULOSKELETAL: Spontaneously moves all extremities x 4 when agitated. RUE fistula +bruit/thrill present VASCULAR: Bilateral pedal and radial pulses are palpable +2 and symmetric. no edema in LEs Labs: Event Name Event Result Date/Time WBC 9.3 10^3/mcL 12/18/24 09:29:00 Hgb 8 G/dL Low 12/18/24 09:29:00 Hct 25.1 % Low 12/18/24 09:29:00 Platelet 272 10^3/mcL 12/18/24 09:29:00 Glucose Level 165 mg/dL High 12/18/24 09:29:00 Sodium Level 138 mEq/L 12/18/24 09:29:00 Potassium Level 5.3 mEq/L High 12/18/24 09:29:00 Chloride 100 mEq/L 12/18/24 09:29:00 CO2 20 mEq/L Low 12/18/24 09:29:00 BUN 72 mg/dL High 12/18/24 09:29:00 Creatinine Lvl (s) 18.4 mg/dL High 12/18/24 09:29:00 Magnesium Lvl 2.6 mg/dL High 12/18/24 09:29:00 Phosphorus 8 mg/dL High 12/18/24 09:29:00 Calcium Ionized 0.93 mmol/L Low 12/18/24 09:29:00 Imaging: XR Chest 1 View Result Date: December 18, 2024 Verified By: JAYCOB GRIMALDO MD CLINICAL STATEMENT: IMPRESSION: Loculated right pleural effusion. Multifocal airspace disease is mostconfluent in the right lung base. Follow to resolution. Support devices, as above Echo: pending Pertinent Reviewed: Allergies, Medications, Labs, Imaging, and Physician and Nursing Notes. Critical Care services I provided [id number] 65 minutes. The time involved in the performance of this care was exclusive of separately billable procedures, teaching time, and treating other patients. The time was spent personally by myself for the following activities: examination of the patient, ordering and/or performing treatment, reviewing the laboratory and radiographic studies and if applicable,ventilator management and blood gas interpretation. Patient treatment plan of care discussed with Dr. Alcazar and bedside RN. Noemí Moreno MD Cardiac Critical Care Digitally Signed by NOEMÍ MORENO MD on 12/18/2024 12:[address] [facility] [id number] History and physical note Date of Service 12/18/2024 Chief Complaint Chest Pain History of Present Illness A 49-year-old male with PMH of ESRD [on dialysis], CAD [mild; 09/2022], chronic HFimpEF [EF 50%; 09/2022], active smoker, hypertension, COPD, status post AICD in situ, presented as a transfer from [facility] ED because of chest pain. On encounter, the patient was examined in room 323. He was intubated. As per the records, patient went to [facility] ED because of midsternal chest pain radiating to the left arm. STEMI alert was called, her troponins were negative, EKG was not concerning for STEMI was aborted. Patient went into respiratory arrest and was intubated at [facility] before transferring to CCU. Review of Systems ROS not possible because patient is intubated Physical Exam Vitals and Measurements T: 36.9 C (Oral) HR: 81 (Monitored) RR: 20 BP: 105/46 SpO2: 98% HT: 165.1 cm WT: 75 kg BMI: 27.51 Weight Dosing Weight: 75 kg (12/18/24) General: AAOX3, NAD HEENT: Anicteric sclera, MMM Neck: Trachea midline, no JVD appreciated CVS: RRR, normal S1/S2, no murmurs/rubs/gallops Lung: CTAB, no wheezes/rhonchi/rales Abd: Soft, NT/ND Extrem: WWP, no LE edema Skin: Warm, Intact Neuro: AAOX3, spontaneous movement of all extremities Psych: Appropriate mood & affect Lab Results 12/18 09:29 Hgb: 8.0 L Hct: 25.1 L Glucose Level: 165 H Sodium Level: 138 Potassium Level: 5.3 H BUN: 72.0 H Creatinine Lvl (s): 18.40 H Assessment/Plan 1. Acute on chronic HFimpEF exacerbation 2. Nonischemic cardiomyopathy Patient presented to [facility] ED because of chest pain Blood pressure on admission was 172/97, patient was intubated [results not documented well] CT PE protocol suggestive of pulmonary vascular congestion proBNP: [id number] ECHO [09/2024]: EF 50% [facility] Plan Fluid restriction to 1500 mL/day Salt restricted diet Daily weight monitoring Accurate input and output START furosemide 40 mg IVP every 12 hours --> will give a trial for 24 hours as family says he makes very little urine CONTINUE carvedilol 3.125 mg p.o. twice daily CONTINUE Isorbid mononitrate 60 mg p.o. daily FOLLOW ECHO Not on ZELDA/ARB/ARNI/SGLT2 because of ESRD status 3. Hypertensive urgency 4. Hypertension Blood pressure at presentation of 172 systolic Patient likely went into flash pulmonary edema which was likely the reason for intubation Blood pressure now is low because patient is on propofol and we will try to reduce the propofol because the EF is known to be low CONTINUE carvedilol 3.125 mg p.o. twice daily CONTINUE isosorbide mononitrate 60 mg p.o. daily 5. ESRD On dialysis s/p 2 transplants failed Plan Nephrology consult for scheduled dialysis 6. Hypertension Blood pressure is low because of propofol Plan CONTINUE carvedilol 3.25 mg p.o. twice daily 7. COPD Patient is currently intubated Plan Critical care 8. Status post AICD Biortronik pacemaker > 10 years old Family says the battery is down to 1% Plan Will call in EP for advice Problem List/Past Medical History Ongoing Abdominal pain AICD (automatic cardioverter/defibrillator) present Anemia Ankle injury Anxiety Assistance needed with transportation BMI 26.0-26.9,adult CAD in [place] artery Cardiomyopathy Chest pain Chronic renal failure Cigarette smoker COPD (chronic obstructive pulmonary disease) Coronary artery calcification, severe on CT 2024 Depression STRAUSS (dyspnea on exertion) End stage renal disease Glasses Headache HFrEF (heart failure with reduced ejection fraction) History of fall , about 10 feet into gravel History of MRSA infection Hx of hyperparathyroidism Hypertension Hypokinesis on echo 2022 Impacted cerumen of right ear Left serous otitis media Low back pain with left-sided sciatica Malrotation colon Medically noncompliant Migraine Mitral regurgitation Need for isolation SOBOE (shortness of breath on exertion) Trigger finger, right middle finger Vascular dialysis catheter in place Weakness Wrist sign 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 Procedure/Surgical History Defibrillator: 01/24/15 Peritoneal procedure Kidney transplant Parathyroid Dialysis catheter Nasal septoplasty Cholecystectomy Parathyroidectomy Cholecystectomy Medications Home Medications (11) Active acetaminophen 325 mg oral capsule 650 mg = 2 cap(s), PRN, Oral, q4h albuterol MDI (90 mcg/inh) CFC free inhalation aerosol 1 puff(s), PRN, Inhalation, q4h aspirin 81 mg oral delayed release tablet 81 mg = 1 tab(s), Oral, Daily atorvastatin 40 mg oral tablet 40 mg = 1 tab(s), Oral, qDay calcium acetate 667 mg oral capsule 2,668 mg = 4 cap(s), Oral, TIDM carvedilol 3.125 mg oral tablet 3.125 mg = 1 tab(s), Oral, BIDM isosorbide mononitrate 30 mg oral tablet, extended release 60 mg = 2 tab(s), Oral, qDayAC midodrine 5 mg oral tablet 10 mg = 2 tab(s), Oral, TID nicotine 21 mg/24 hr transdermal film, extended release 21 mg = 1 patch(es), Transdermal, qDay Renvela 800 mg oral tablet (NF) 800 mg = 1 tab(s), Oral, TIDM Symbicort 80 mcg-4.5 mcg/inh Inhaler 2 puff(s), Inhalation, BID Allergies penicillin (Moderate) Anaphylaxis, rash Contrast dye Skin rash, Fever Social History Smoking Status - 11/25/2017 Current every day smoker Alcohol - Denies Alcohol Use, 01/16/2017 Use: Never., 12/07/2018 Nutrition/Health Caffeine intake amount: 3-4 servings/day., 05/08/2023 Substance Abuse - Denies Substance Abuse, 01/16/2017 Use: Never., 12/07/2018 Tobacco Nicotine Use: 4 or less cigarettes(less than 1/4 pack)/day in last 30 days. Type: Cigarettes., 11/30/2024 Family History Diabetes mellitus: Father. Heart disease: Father. Hypertension: Father. Health Status Family Member(s) Immunizations pneumococcal 13-valent conjugate vaccine: 0 unknown unit (10/23/16) pneumococcal 23-valent vaccine(Pneumovax: 0 unknown unit (06/03/15) pneumococcal 23-valent vaccine(Pneumovax: 0.5 mL (02/24/14) pneumococcal 23-valent vaccine(Pneumovax: 0 unknown unit (06/23/07) SARS-CoV-2 mRNA (tozinameran) vaccine: 0.3 unknown unit (05/28/21) SARS-CoV-2 mRNA (tozinameran) vaccine: 0.3 unknown unit (05/07/21) tetanus/diphtheria/pertussMUL.ORD![id number]: 0.5 mL (10/23/20) tetanus/diphtheria/pertussMUL.ORD![id number]: 0.5 mL (11/19/13) Code Status Code Status - Ordered -- 12/18/24 7:45:00 EDT, Full Code, Constant Order Digitally Signed by CARMELO KIM MD on 12/18/2024 11:[address] [facility] [id number] History and physical note Date of Service 12/18/2024 Chief Complaint Chest Pain History of Present Illness A 49-year-old male with PMH of ESRD [on dialysis], CAD [mild; 09/2022], chronic HFimpEF [EF 50%; 09/2022], active smoker, hypertension, COPD, status post AICD in situ, presented as a transfer from [facility] ED because of chest pain. On encounter, the patient was examined in room 323. He was intubated. As per the records, patient went to [facility] ED because of midsternal chest pain radiating to the left arm. STEMI alert was called, her troponins were negative, EKG was not concerning for STEMI was aborted. Patient went into respiratory arrest and was intubated at [facility] before transferring to CCU. Review of Systems ROS not possible because patient is intubated Physical Exam Vitals and Measurements T: 36.9 C (Oral) HR: 81 (Monitored) RR: 20 BP: 105/46 SpO2: 98% HT: 165.1 cm WT: 75 kg BMI: 27.51 Weight Dosing Weight: 75 kg (12/18/24) General: AAOX3, NAD HEENT: Anicteric sclera, MMM Neck: Trachea midline, no JVD appreciated CVS: RRR, normal S1/S2, no murmurs/rubs/gallops Lung: CTAB, no wheezes/rhonchi/rales Abd: Soft, NT/ND Extrem: WWP, no LE edema Skin: Warm, Intact Neuro: AAOX3, spontaneous movement of all extremities Psych: Appropriate mood & affect Lab Results 12/18 09:29 Hgb: 8.0 L Hct: 25.1 L Glucose Level: 165 H Sodium Level: 138 Potassium Level: 5.3 H BUN: 72.0 H Creatinine Lvl (s): 18.40 H Assessment/Plan 1. Acute on chronic HFimpEF exacerbation 2. Nonischemic cardiomyopathy Patient presented to [facility] ED because of chest pain Blood pressure on admission was 172/97, patient was intubated [results not documented well] CT PE protocol suggestive of pulmonary vascular congestion proBNP: [id number] ECHO [09/2024]: EF 50% [facility] Plan Fluid restriction to 1500 mL/day Salt restricted diet Daily weight monitoring Accurate input and output START furosemide 40 mg IVP every 12 hours --> will give a trial for 24 hours as family says he makes very little urine CONTINUE carvedilol 3.125 mg p.o. twice daily CONTINUE Isorbid mononitrate 60 mg p.o. daily FOLLOW ECHO Not on ZELDA/ARB/ARNI/SGLT2 because of ESRD status 3. Hypertensive urgency 4. Hypertension Blood pressure at presentation of 172 systolic Patient likely went into flash pulmonary edema which was likely the reason for intubation Blood pressure now is low because patient is on propofol and we will try to reduce the propofol because the EF is known to be low CONTINUE carvedilol 3.125 mg p.o. twice daily CONTINUE isosorbide mononitrate 60 mg p.o. daily 5. ESRD On dialysis s/p 2 transplants failed Plan Nephrology consult for scheduled dialysis 6. Hypertension Blood pressure is low because of propofol Plan CONTINUE carvedilol 3.25 mg p.o. twice daily 7. COPD Patient is currently intubated Plan Critical care 8. Status post AICD Biortronik pacemaker > 10 years old Family says the battery is down to 1% Plan Will call in EP for advice Problem List/Past Medical History Ongoing Abdominal pain AICD (automatic cardioverter/defibrillator) present Anemia Ankle injury Anxiety Assistance needed with transportation BMI 26.0-26.9,adult CAD in [place] artery Cardiomyopathy Chest pain Chronic renal failure Cigarette smoker COPD (chronic obstructive pulmonary disease) Coronary artery calcification, severe on CT 2024 Depression STRAUSS (dyspnea on exertion) End stage renal disease Glasses Headache HFrEF (heart failure with reduced ejection fraction) History of fall , about 10 feet into gravel History of MRSA infection Hx of hyperparathyroidism Hypertension Hypokinesis on echo 2022 Impacted cerumen of right ear Left serous otitis media Low back pain with left-sided sciatica Malrotation colon Medically noncompliant Migraine Mitral regurgitation Need for isolation SOBOE (shortness of breath on exertion) Trigger finger, right middle finger Vascular dialysis catheter in place Weakness Wrist sign 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 Procedure/Surgical History Defibrillator: 01/24/15 Peritoneal procedure Kidney transplant Parathyroid Dialysis catheter Nasal septoplasty Cholecystectomy Parathyroidectomy Cholecystectomy Medications Home Medications (11) Active acetaminophen 325 mg oral capsule 650 mg = 2 cap(s), PRN, Oral, q4h albuterol MDI (90 mcg/inh) CFC free inhalation aerosol 1 puff(s), PRN, Inhalation, q4h aspirin 81 mg oral delayed release tablet 81 mg = 1 tab(s), Oral, Daily atorvastatin 40 mg oral tablet 40 mg = 1 tab(s), Oral, qDay calcium acetate 667 mg oral capsule 2,668 mg = 4 cap(s), Oral, TIDM carvedilol 3.125 mg oral tablet 3.125 mg = 1 tab(s), Oral, BIDM isosorbide mononitrate 30 mg oral tablet, extended release 60 mg = 2 tab(s), Oral, qDayAC midodrine 5 mg oral tablet 10 mg = 2 tab(s), Oral, TID nicotine 21 mg/24 hr transdermal film, extended release 21 mg = 1 patch(es), Transdermal, qDay Renvela 800 mg oral tablet (NF) 800 mg = 1 tab(s), Oral, TIDM Symbicort 80 mcg-4.5 mcg/inh Inhaler 2 puff(s), Inhalation, BID Allergies penicillin (Moderate) Anaphylaxis, rash Contrast dye Skin rash, Fever Social History Smoking Status - 11/25/2017 Current every day smoker Alcohol - Denies Alcohol Use, 01/16/2017 Use: Never., 12/07/2018 Nutrition/Health Caffeine intake amount: 3-4 servings/day., 05/08/2023 Substance Abuse - Denies Substance Abuse, 01/16/2017 Use: Never., 12/07/2018 Tobacco Nicotine Use: 4 or less cigarettes(less than 1/4 pack)/day in last 30 days. Type: Cigarettes., 11/30/2024 Family History Diabetes mellitus: Father. Heart disease: Father. Hypertension: Father. Health Status Family Member(s) Immunizations pneumococcal 13-valent conjugate vaccine: 0 unknown unit (10/23/16) pneumococcal 23-valent vaccine(Pneumovax: 0 unknown unit (06/03/15) pneumococcal 23-valent vaccine(Pneumovax: 0.5 mL (02/24/14) pneumococcal 23-valent vaccine(Pneumovax: 0 unknown unit (06/23/07) SARS-CoV-2 mRNA (tozinameran) vaccine: 0.3 unknown unit (05/28/21) SARS-CoV-2 mRNA (tozinameran) vaccine: 0.3 unknown unit (05/07/21) tetanus/diphtheria/pertussMUL.ORD![id number]: 0.5 mL (10/23/20) tetanus/diphtheria/pertussMUL.ORD!i63738: 0.5 mL (11/19/13) Code Status Code Status - Ordered -- 12/18/24 7:45:00 EDT, Full Code, Constant Order Digitally Signed by CARMELO KIM MD on 12/18/2024 11:[address] [id number] Nephrology Consult note Date of Service December 18, 2024 Reason for Consultation End-stage renal disease History of Present Illness Patient is 49 years old. History of end-stage renal disease currently on home hemodialysis. Patientpresented to an outside emergency department with chest discomfort. He was found to have elevated troponin levels. He did have a CT angiogram that demonstrated evidence of pulmonary edema but no PE. He was transferred to [place] for cardiac evaluation. Patient did develop respiratory distress at the outside ER and required intubation. He currently remains intubated on 35% FiO2. History is limited. Review of Systems No review of systems due to intubation and sedation Physical Exam Vitals and Measurements Weight Dosing Weight: 75 kg (12/18/24) General: Intubated. Agitated. Not following commands HEENT: Endotracheal tube in place. JVD present. Lungs: Fine crackles bilaterally Heart: Tachycardic. 1-2 out of 6 systolic murmur Abdomen: Positive bowel sounds, soft, no palpable masses Extremities: Minimal edema, pulses 2+ in all 4 extremities Access: Right arm AV fistula: Positive bruit and thrill. Very aneurysmal Skin: No rashes, normal turgor Lab Results No 36 Hour Lab Data Assessment/Plan Orders: epoetin anca(epoetin alpha (Retacrit / Procrit) 10,000 unit(s)/mL (DIALYSIS)), 41620 unit(s)= 1 mL,IV Push, prep pharm Dialysis Machine Bicarb Setting, 12/18/24 8:40:00 EDT, Total Bicarb Buffer 37 Dialysis Machine Sodium Setting, 12/18/24 8:40:00 EDT, Sodium Machine Setting 138 Dialysis Machine Temperature Setting, 12/18/24 8:40:00 EDT, Machine Temp Setting 36.5 Discontinue Order, 12/18/24 8:40:00 EDT, Once, Please discontinue all active orders when current dialysis treatment is complete, 12/18/24 8:40:00 EDT Standard Hemodialysis(Dialysis, Standard), 12/18/24 8:40:00 EDT, Dialyzer: F 160, Dialysate 3K+, Dialysate Rate (mL/min) 600, 3.5 hours, 3.5 liters removed, No, Blood Flow Rate (mL/min) 400, Keep SBP>100 1. End-stage renal disease: Patient does home hemodialysis. Unsure of last treatment. Has large aneurysmal right arm AV fistula. Positive bruit and thrill. Given hypertension and evidence of pulmonary edema, plan dialysis now. See orders. 2. Hypertensive urgency: Likely due to fluid overload. Will reassess blood pressure after fluid removal with dialysis. Currently on nitro drip as well as carvedilol. 3. Respiratory failure: Remains intubated on 35% FiO2. Will reassess after dialysis. 4. Chest pain: CT of chest negative for PE. Being evaluated for ischemic heart disease by cardiology. 5. Anemia: Dose Epogen with dialysis. Problem List/Past Medical History Ongoing Abdominal pain AICD (automatic cardioverter/defibrillator) present Anemia Ankle injury Anxiety Assistance needed with transportation BMI 26.0-26.9,adult CAD in [place] artery Cardiomyopathy Chest pain Chronic renal failure Cigarette smoker COPD (chronic obstructive pulmonary disease) Coronary artery calcification, severe on CT 2024 Depression STRAUSS (dyspnea on exertion) End stage renal disease Glasses Headache HFrEF (heart failure with reduced ejection fraction) History of fall , about 10 feet into gravel History of MRSA infection Hx of hyperparathyroidism Hypertension Hypokinesis on echo 2022 Impacted cerumen of right ear Left serous otitis media Low back pain with left-sided sciatica Malrotation colon Medically noncompliant Migraine Mitral regurgitation Need for isolation SOBOE (shortness of breath on exertion) Trigger finger, right middle finger Vascular dialysis catheter in place Weakness Wrist sign 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 Procedure/Surgical History Defibrillator: 01/24/15 Peritoneal procedure Kidney transplant Parathyroid Dialysis catheter Nasal septoplasty Cholecystectomy Parathyroidectomy Cholecystectomy Medications Inpatient albuterol 2.5 mg/3 mL (0.083%) inhalation solution, 2.5 mg= 3 mL, Inhalation, QIDRT aspirin 81 mg oral delayed release tablet, 81 mg= 1 tab(s), Oral, Daily atorvastatin, 40 mg= 1 tab(s), Oral, qDay calcium acetate, 2668 mg= 4 tab(s), Oral, TIDM carvedilol 3.125 mg oral tablet, 3.125 mg= 1 tab(s), Oral, BIDM Colace, 100 mg= 1 cap(s), Oral, BID, PRN Dextrose 50% IV Push, 25 gram(s)= 50 mL, IV Push, AsDirected, PRN DuoNeb, 3 mL, Inhalation, q4hRT, PRN epoetin alpha (Retacrit / Procrit) 10,000 unit(s)/mL (DIALYSIS), 08495 unit(s)= 1 mL, IV Push, preppharm isosorbide mononitrate 30 mg oral tablet, extended release, 60 mg= 2 tab(s), Oral, qDayAC magnesium sulfate for IV bolus, 2 gram(s)= 50 mL, IV Piggyback, AsDirected, PRN magnesium sulfate for IV bolus, 4 gram(s)= 100 mL, IV Piggyback, AsDirected, PRN magnesium sulfate for IV bolus Milk of Magnesia, 30 mL, Oral, qHS, PRN Miralax Powder Packet, 17 gram(s)= 15 mL, Oral, qDay, PRN potassium chloride, 20 mEq= 1 tab(s), Oral, AsDirected, PRN potassium chloride, 40 mEq= 2 tab(s), Oral, AsDirected, PRN potassium chloride, 40 mEq= 2 tab(s), Oral, AsDirected, PRN potassium chloride bolus, 20 mEq= 100 mL, IV Piggyback, AsDirected, PRN Pulmicort Respules 0.25 mg/2 mL inhalation suspension, 0.25 mg= 2 mL, Inhalation, BIDRT Renvela 800 mg oral tablet, 800 mg= 1 tab(s), Oral, TIDM Tylenol, 650 mg= 2 tab(s), Oral, q4h, PRN Zofran, 4 mg= 2 mL, IV Push, q4h, PRN Home acetaminophen 325 mg oral capsule, 650 mg= 2 cap(s), Oral, q4h, PRN albuterol MDI (90 mcg/inh) CFC free inhalation aerosol, 1 puff(s), Inhalation, q4h, PRN, 3 refills aspirin 81 mg oral delayed release tablet, 81 mg= 1 tab(s), Oral, Daily, 3 refills atorvastatin 40 mg oral tablet, 40 mg= 1 tab(s), Oral, qDay, 3 refills calcium acetate 667 mg oral capsule, 2668 mg= 4 cap(s), Oral, TIDM carvedilol 3.125 mg oral tablet, 3.125 mg= 1 tab(s), Oral, BIDM, 3 refills isosorbide mononitrate 30 mg oral tablet, extended release, 60 mg= 2 tab(s), Oral, qDayAC, 3 refills midodrine 5 mg oral tablet, 10 mg= 2 tab(s), Oral, TID nicotine 21 mg/24 hr transdermal film, extended release, 21 mg= 1 patch(es), Transdermal, qDay Renvela 800 mg oral tablet (NF), 800 mg= 1 tab(s), Oral, TIDM Symbicort 80 mcg-4.5 mcg/inh Inhaler, 2 puff(s), Inhalation, BID, 2 refills Allergies penicillin (Moderate) Anaphylaxis, rash Contrast dye Skin rash, Fever Social History Smoking Status - 11/25/2017 Current every day smoker Alcohol - Denies Alcohol Use, 01/16/2017 Use: Never., 12/07/2018 Nutrition/Health Caffeine intake amount: 3-4 servings/day., 05/08/2023 Substance Abuse - Denies Substance Abuse, 01/16/2017 Use: Never., 12/07/2018 Tobacco Nicotine Use: 4 or less cigarettes(less than 1/4 pack)/day in last 30 days. Type: Cigarettes., 11/30/2024 Family History Diabetes mellitus: Father. Heart disease: Father. Hypertension: Father. Health Status Family Member(s) Immunizations pneumococcal 13-valent conjugate vaccine: 0 unknown unit (10/23/16) pneumococcal 23-valent vaccine(Pneumovax: 0 unknown unit (06/03/15) pneumococcal 23-valent vaccine(Pneumovax: 0.5 mL (02/24/14) pneumococcal 23-valent vaccine(Pneumovax: 0 unknown unit (06/23/07) SARS-CoV-2 mRNA (tozinameran) vaccine: 0.3 unknown unit (05/28/21) SARS-CoV-2 mRNA (tozinameran) vaccine: 0.3 unknown unit (05/07/21) tetanus/diphtheria/pertussMUL.ORD![id number]: 0.5 mL (10/23/20) tetanus/diphtheria/pertussMUL.ORD!f24775: 0.5 mL (11/19/13) Digitally Signed by CHAYA OWENS MD on 12/18/2024 08:[address] [facility] [id number] Note* Exam Date Time Procedure Performing Provider Status 12/18/24 8:13 AM XR Chest 1 View JAYCOB GRIMALDO; Auth (Verified) [id number] ORIGINAL EXAMINATION: ONE XRAY VIEW OF THE CHEST12/18/2024 8:13 am COMPARISON: 12/18/2024 HISTORY: ORDERING SYSTEM PROVIDED HISTORY: Reason for Exam: Intubated FINDINGS: The exam is rotated. Enlarged cardiac silhouette noted. The endotracheal tube projects 5.2 cm above the reyna. The enteric tube courses below the diaphragm. Pacer/defibrillator device seen from a left chest wall approach, unchanged. Loculated right pleural effusions seen. Consolidation is most prevalent at the right lung base. There are some patchy alveolar opacities in the left lung. No visible pneumothorax. No aggressive bony lesions. Bony detail is limited. IMPRESSION: Loculated right pleural effusion. Multifocal airspace disease is most confluent in the right lung base. Follow to resolution. Support devices, as above Interpreted by: Jaycob Grimaldo MD Preliminary Report By: Jaycob Grimaldo MD Electronically signed By Jaycob Grimaldo MD Dictated Date: 12/18/2024 8:32:50 AM Prelim Date: 12/18/2024 8:34:21 AM Sign Date: 12/18/2024 8:34:21 AM Ordering Provider: NOEMÍ MORENO Interpreted by: Jaycob Grimaldo MD Preliminary Report By: Jaycob Grimaldo MD Electronically signed By Jaycob Grimaldo MD Dictated Date: 12/18/2024 8:32:50 AM Prelim Date: 12/18/2024 8:34:21 AM Sign Date: 12/18/2024 8:34:21 AM Ordering Provider: NOEMÍ MORENO [facility] [id number] Note* Exam Date Time Procedure Performing Provider Status 12/18/24 7:53 AM Electrocardiogram - EKG - CV TONI DENTON MD; Auth (Verified) ECG Final Report SINUS OR ECTOPIC ATRIAL TACHYCARDIA BORDERLINE IVCD WITH LAD PROBABLE ANTERIOR INFARCT, AGE INDETERMINATE PROLONGED QT INTERVAL Electronic Signature: TREY DENTON MD 12/19/2024 17:14:[address] [facility] [id number] Note* Exam Date Time Procedure Performing Provider Status 12/18/24 6:42 AM XR Chest 1 View RAYMON CALLE MD; Auth (Verified) [id number] ORIGINAL EXAMINATION: ONE XRAY VIEW OF THE CHEST 12/18/2024 6:43 am COMPARISON: Chest x-ray on 12/17/2024. CT chest on 12/18/2024 HISTORY: ORDERING SYSTEM PROVIDED HISTORY: Reason for Exam: Tube/line placement Post-intubation FINDINGS: The endotracheal tube tip is 5 cm above the reyna. Enteric tube tip is in the stomach. The side port is at the gastroesophageal junction. Left subclavian cardiac conduction device is in place. Cardiomegaly is stable. Left mid and lower lung zone airspace disease and small left pleural effusion are unchanged. There is no acute left lung infiltrate. No pneumothorax is present. IMPRESSION: 1. Endotracheal tube in satisfactory position. 2. Enteric tube side port is at the gastroesophageal junction. Recommend advancing the enteric tube by 8 cm. 3. Stable left lung infiltrate and small left pleural effusion. Interpreted by: Raymon Calle MD Preliminary Report By: Raymon Calle MD Electronically signed By Raymon Calle MD Dictated Date: 12/18/2024 6:48:01 AM Prelim Date: 12/18/2024 6:50:32 AM Sign Date: 12/18/2024 6:50:32 AM Ordering Provider: HÉCTOR JEONG Interpreted by: Raymon Calle MD Preliminary Report By: Raymon Calle MD Electronically signed By Raymon Calle MD Dictated Date: 12/18/2024 6:48:01 AM Prelim Date: 12/18/2024 6:50:32 AM Sign Date: 12/18/2024 6:50:32 AM Ordering Provider: HÉCTOR JEONG [facility]06-28-2025 Note* Exam Date Time Procedure Performing Provider Status 12/18/24 5:09 AM EKG [ED AOH] - CV HÉCTOR JEONG DO; Silvia [facility] (Verified) ECG Final Report Sinus rhythm Probable left atrial enlargement Left anterior fascicular block Prolonged QT interval EKG interpretation is noted and agreed to in [employer]. The interpretation of this patient's EKG contributed directly to the care and management of this patient. Electronic Signature: HÉCTOR JEONG DO 12/18/2024 06:09:22 [facility]06-28-2025 Note* Exam Date Time Procedure Performing Provider Status 12/18/24 5:[address] Angiography Chest w/ Contrast RAYMON CALLE MD; Auth (Verified) [id number] ORIGINAL EXAMINATION: CTA OF THE CHEST 12/18/2024 5:09 am TECHNIQUE: CTA of the chest was performed after the administration of intravenous contrast. Multiplanar reformatted images are provided for review. MIP images are provided for review. Automated exposure control, iterative reconstruction, and/or weight based adjustment of the mA/kV was utilized to reduce the radiation dose to as low as reasonably achievable. COMPARISON: Chest x-ray on 12/17/2024. CT chest on 09/13/2024. HISTORY: ORDERING SYSTEM PROVIDED HISTORY: Reason for Exam: pt states he began to have midsternal chest pain tonight, now radiating to the left arm upon arrival. pt states hx of pacemaker and dialysis difficulty breathing; suspect PE FINDINGS: Pulmonary Arteries: Pulmonary arteries are adequately opacified for evaluation. No evidence of intraluminal filling defect to suggest pulmonary embolism. The main pulmonary artery is mildly dilated with diameter 3.2 cm. Mediastinum: There is no mediastinal mass or lymph node enlargement. There is moderate generalized enlargement of the heart. Cardiac size is actually increased compared with CT scan on 09/13/2024 from transverse diameter of 14.5 cm to 16 cm. No pericardial fluid is present. There is moderate atherosclerotic coronary artery calcification. The thoracic aorta is nonaneurysmal. Lungs/pleura: There is new small right pleural effusion. Right lower lobe and right middle lobe airspace disease is present. Septal thickening is present bilaterally consistent with pulmonary edema. There is no focal left lung infiltrate and no left pleural fluid. Upper Abdomen: Limited images of the upper abdomen demonstrate peritoneal thickening around the liver which shows only mild progression since 10/11/2021 CT abdomen. Upper pole the left kidney is included and demonstrates chronic atrophy. Soft Tissues/Bones: No acute bone or soft tissue abnormality. IMPRESSION: 1. No evidence of pulmonary embolism. 2. Moderate cardiomegaly with pulmonary edema and small right pleural effusion. 3. Right lower lobe and right middle lobe airspace disease may be due to pneumonia or atelectasis. 4. Peritoneal thickening around the liver shows only mild progression since 10/11/2021. Interpreted by: Raymon Calle MD Preliminary Report By: Raymon Calle MD Electronically signed By Raymon Calle MD Dictated Date: 12/18/2024 5:13:31 AM Prelim Date: 12/18/2024 5:24:11 AM Sign Date: 12/18/2024 5:24:11 AM Ordering Provider: HÉCTOR JEONG Interpreted by: Raymon Calle MD Preliminary Report By: Raymon Calle MD Electronically signed By Raymon Calle MD Dictated Date: 12/18/2024 5:13:31 AM Prelim Date: 12/18/2024 5:24:11 AM Sign Date: 12/18/2024 5:24:11 AM Ordering Provider: HÉCTOR TOSHIAVeraSilvia [facility]06-28-2025 Note* Exam Date Time Procedure Performing Provider Status 12/18/24 1:57 AM EKG [ED AOH] - CV HÉCTOR JEONG ; A [facility] (Verified) ECG Final Report Sinus rhythm Probable left atrial enlargement Left anterior fascicular block Prolonged QT interval This EKG was read and contributed directly to the care of the patient Electronic Signature: HÉCTOR JEONG DO 12/18/2024 02:06:19 [facility]06-27-2025 Note* Exam Date Time Procedure Performing Provider Status 12/17/24 10:29 PM XR Chest 1 View OMER MARKS DO; Auth (Verified) [id number] ORIGINAL EXAMINATION: ONE XRAY VIEW OF THE CHEST12/17/2024 10:29 pm COMPARISON: 10/08/2022 HISTORY: ORDERING SYSTEM PROVIDED HISTORY: Reason for Exam: chest pain FINDINGS: Left chest wall ICD with leads in stable position. Stable cardiomediastinal contours. Small right pleural effusion with adjacent right basilar airspace opacities. No large left pleural effusion or visible pneumothorax. No acute osseous abnormality. IMPRESSION: Small right pleural effusion with adjacent right basilar atelectasis or other airspace disease. Recommend follow-up to resolution. I have reviewed the resident's preliminary report and agree with findings and impression. Interpreted by: Omer Marks Preliminary Report By: Parth Vega Electronically signed By Omer Marks Dictated Date: 12/17/2024 11:26:52 PM Prelim Date: 12/17/2024 11:29:54 PM Sign Date: 12/17/2024 11:40:51 PM Ordering Provider: HÉCTOR JEONG Interpreted by: Omer Marks Preliminary Report By: Parth Vega Electronically signed By Omer Marks Dictated Date: 12/17/2024 11:26:52 PM Prelim Date: 12/17/2024 11:29:54 PM Sign Date: 12/17/2024 11:40:51 PM Ordering Provider: HÉCTOR JEONG [facility]06-27-2025 Note* Exam Date Time Procedure Performing Provider Status 12/17/24 9:32 PM EKG [ED AOH] - CV HÉCTOR JEONG DO; A [facility] (Verified) ECG Final Report Sinus rhythm Borderline prolonged ND interval Probable left atrial enlargement Left anterior fascicular block Nonspecific T abnormalities, lateral leads Borderline prolonged QT interval EKG interpretation is noted and agreed to in [employer]. The interpretation of this patient's EKG contributed directly to the care and management of this patient. Electronic Signature: HÉCTOR JEONG DO 12/17/2024 23:27:50 [facility]06-18-2025 Consult note* Bryan Torres, [employer]- MANUFACTURING COORDINATOR - 12/08/2024 9:54 AM EDTAssociated Order(s): IP CONSULT TO ACUTE CARE SURGERY [facility] ACUTE CARE SURGERY - HISTORY AND PHYSICAL / CONSULT Patient Name: Carlitos Sweeney Admit Date: [id number] : 1975 AGE: 49 y.o. GENDER: male TODAY'S ASSESSMENT AND PLAN OF CARE: Mr. Sweeney is a 49 yo male with a PMHx of cardiomyopathy, HFrEF s/p AIC, congenital solitary kidney, COPD, HTN, GERD, ESRD s/p 2 x renal transplant both failed who presents as a transfer from OSH who initially presented with RLQ abdominal pain. OSH CT showed concerning for dilated small bowel with concern for developing low grade bowel obstruction. Patient currently afebrile, non tachycardic, HTN with SBP in 170s. He denies abdominal pain, nausea or vomiting. Continues to pass flatus and is havingbowel movements. Currently tolerating clear liquid diet. Recs: - No indication for surgical intervention - Likely resolution of pSBO - Continue clear liquid diet, may advance diet to regular as tolerated - No indication for surgical admission, agree with Medicine admit Patient seen and discussed with Attending Dr. Law Torres PERFORMANCE INSTRUCTOR-[facility] Acute Care Surgery Pager [phone] CHIEF COMPLAINT/REASON FOR CONSULT: Mr. Sweeney is a 49 yo male with a PMHx of cardiomyopathy, HFrEF s/p AIC, congenital solitary kidney, COPD, HTN, GERD, ESRD s/p 2 x renal transplant both failed who presents as a transfer from OSH who initially presented with abdominal pain. Patient states he has had right lower quadrant pain for approximately 4-5 days. Patient states he feels he pulled something while doing his job but pain was persistent and would become worse with change in positions. Denies changes in bowel habits or appetite. Has continued to pass flatus and having bowel movements and tolerating diet without n/v. He was concerned it may be his appendix and therefore he presented to the OSH ED. At OSH, CT showed dilated small bowel concerning for developing low grade obstruction. Therefore transferred to [facility] for higher level of care. Patient now stating he has no abdominal pain, n/v. Tolerating clear liquids and continues to pass flatus and have Bms. PAST MEDICAL HISTORY: PMH: cardiomyopathy, HFrEF s/p AIC, congenital solitary kidney, COPD, HTN, GERD, ESRD s/p 2 x renaltransplant both failed Medical History[1] PSH: Renal transplant x 2, cholecystectomy Surgical History[2] FH: reviewed and noncontributory to presenting problem Family History[3] SOCIAL HISTORY: Smoking: quit 3 days ago, 5-10 sticks per day Tobacco Use History[4] Alcohol: denies Social History Substance and Sexual Activity Alcohol Use Not on file Drug use: denies MEDICATIONS: polyethylene glycol (Glycolax, Miralax) packet 17 g (has no administration in time range) sodium zirconium cyclosilicate (Lokelma) packet 10 g (has no administration in time range) hydrALAZINE (Apresoline) tablet 50 mg (has no administration in time range) atorvastatin (Lipitor) tablet 40 mg (has no administration in time range) aspirin EC tablet 81 mg (has no administration in time range) carvedilol (Coreg) tablet 3.125 mg (has no administration in time range) sevelamer carbonate (Renvela) tablet 800 mg (has no administration in time range) isosorbide mononitrate tablet 60 mg (has no administration in time range Prior to Admission medications Not on File ALLERGIES: Iodine, PCN G RX Allergies[5] REVIEW OF SYSTEMS: Review of Systems Constitutional: Negative. HENT: Negative. Respiratory: Negative. Cardiovascular: Negative. Gastrointestinal: Negative. Genitourinary: Negative. Musculoskeletal: Negative. Skin: Negative. PHYSICAL EXAM: Physical Exam Constitutional: Appearance: Normal appearance. Eyes: Extraocular Movements: Extraocular movements intact. Cardiovascular: Comments: RR on monitor Pulmonary: Effort: Pulmonary effort is normal. Abdominal: Comments: Soft, non distended, non tender to palpitation, well healed scars Musculoskeletal: General: Normal range of motion. Skin: General: Skin is warm and dry. Neurological: Mental Status: He is alert and oriented to person, place, and time. Psychiatric: Behavior: Behavior normal. IMAGING SUMMARY: (summary of findings, not a copy of dictation) CT A/P 12/08/24 - Focally dilated small bowel possibly presenting developing/low grade obstruction. - Right lower lobe pleural thickening and loculated effusion with peripheral calcifications and right lower lobe scarring. - Consider prior asbestos exposure LABS: Results for orders placed or performed during the hospital encounter of 12/08/24 (from the past 24 hours) CBC and Auto Differential Result Value Ref Range WBC 4.7 4.4 - 11.3 x10*3/uL nRBC 0.0 0.0 - 0.0 /100 WBCs RBC 2.81 (L) 4.50 - 5.90 x10*6/uL Hemoglobin 7.7 (L) 13.5 - 17.5 g/dL Hematocrit 23.2 (L) 41.0 - 52.0 % MCV 83 80 - 100 fL MCH 27.4 26.0 - 34.0 pg MCHC 33.2 32.0 - 36.0 g/dL RDW 13.2 11.5 - 14.5 % Platelets 191 150 - 450 x10*3/uL Neutrophils % 89.6 40.0 - 80.0 % Immature Granulocytes %, Automated 0.2 0.0 - 0.9 % Lymphocytes % 7.9 13.0 - 44.0 % Monocytes % 1.9 2.0 - 10.0 % Eosinophils % 0.2 0.0 - 6.0 % Basophils % 0.2 0.0 - 2.0 % Neutrophils Absolute 4.22 1.20 - 7.70 x10*3/uL Immature Granulocytes Absolute, Automated 0.01 0.00 - 0.70 x10*3/uL Lymphocytes Absolute 0.37 (L) 1.20 - 4.80 x10*3/uL Monocytes Absolute 0.09 (L) 0.10 - 1.00 x10*3/uL Eosinophils Absolute 0.01 0.00 - 0.70 x10*3/uL Basophils Absolute 0.01 0.00 - 0.10 x10*3/uL Comprehensive metabolic panel Result Value Ref Range Glucose 136 (H) 74 - 99 mg/dL Sodium 134 (L) 136 - 145 mmol/L Potassium 5.4 (H) 3.5 - 5.3 mmol/L Chloride 93 (L) 98 - 107 mmol/L Bicarbonate 27 21 - 32 mmol/L Anion Gap 19 10 - 20 mmol/L Urea Nitrogen 55 (H) 6 - 23 mg/dL Creatinine 13.53 (H) 0.50 - 1.30 mg/dL eGFR 4 (L) >60 mL/min/1.73m*2 Calcium 8.5 (L) 8.6 - 10.6 mg/dL Albumin 4.0 3.4 - 5.0 g/dL Alkaline Phosphatase 62 33 - 120 U/L Total Protein 7.4 6.4 - 8.2 g/dL AST 12 9 - 39 U/L Bilirubin, Total 0.5 0.0 - 1.2 mg/dL ALT 11 10 - 52 U/L Magnesium Result Value Ref Range Magnesium 2.34 1.60 - 2.40 mg/dL Blood Gas Venous Full Panel Result Value Ref Range POCT pH, Venous 7.41 7.33 - 7.43 pH POCT pCO2, Venous 45 41 - 51 mm Hg POCT pO2, Venous 32 (L) 35 - 45 mm Hg POCT SO2, Venous 44 (L) 45 - 75 % POCT Oxy Hemoglobin, Venous 42.6 (L) 45.0 - 75.0 % POCT Hematocrit Calculated, Venous 25.0 (L) 41.0 - 52.0 % POCT Sodium, Venous 132 (L) 136 - 145 mmol/L POCT Potassium, Venous 5.9 (H) 3.5 - 5.3 mmol/L POCT Chloride, Venous 98 98 - 107 mmol/L POCT Ionized Calicum, Venous 0.99 (L) 1.10 - 1.33 mmol/L POCT Glucose, Venous 143 (H) 74 - 99 mg/dL POCT Lactate, Venous 0.7 0.4 - 2.0 mmol/L POCT Base Excess, Venous 3.4 (H) -2.0 - 3.0 mmol/L POCT HCO3 Calculated, Venous 28.5 (H) 22.0 - 26.0 mmol/L POCT Hemoglobin, Venous 8.2 (L) 13.5 - 17.5 g/dL POCT Anion Gap, Venous 11.0 10.0 - 25.0 mmol/L Patient Temperature 37.0 degrees Celsius FiO2 21 % Type And Screen Result Value Ref Range ABO TYPE O Rh TYPE POS ANTIBODY SCREEN NEG Hepatitis B surface antibody Result Value Ref Range Hepatitis B Surface AB >1,000.0 (H) <10.0 mIU/mL I have reviewed all laboratory and imaging results ordered/pertinent for this encounter. [1] Past Medical History: Diagnosis Date Personal history of other diseases of urinary system History of chronic kidney disease [2] Past Surgical History: Procedure Laterality Date OTHER SURGICAL HISTORY 08/18/2018 Kidney transplantation OTHER SURGICAL HISTORY 08/18/2018 Pacemaker insertion OTHER SURGICAL HISTORY 08/18/2018 Cardioverter defibrillator insertion [3] No family history on file. [4] Social History Tobacco Use Smoking Status Not on file Smokeless Tobacco Not on file [5] Allergies Allergen Reactions Iodinated Contrast Media Fever Penicillin G Hives [facility] Work Phone: [phone] Consult note* JEROD Houser - 12/08/2024 9:54 AM EDTAssociated Order(s): IP CONSULT TO ACUTE CARE SURGERY [facility] ACUTE CARE SURGERY - HISTORY AND PHYSICAL / CONSULT Patient Name: Carlitos Sweeney Admit Date: [id number] : 1975 AGE: 49 y.o. GENDER: male TODAY'S ASSESSMENT AND PLAN OF CARE: Mr. Sweeney is a 49 yo male with a PMHx of cardiomyopathy, HFrEF s/p AIC, congenital solitary kidney, COPD, HTN, GERD, ESRD s/p 2 x renal transplant both failed who presents as a transfer from OSH who initially presented with RLQ abdominal pain. OSH CT showed concerning for dilated small bowel with concern for developing low grade bowel obstruction. Patient currently afebrile, non tachycardic, HTN with SBP in 170s. He denies abdominal pain, nausea or vomiting. Continues to pass flatus and is havingbowel movements. Currently tolerating clear liquid diet. Recs: - No indication for surgical intervention - Likely resolution of pSBO - Continue clear liquid diet, may advance diet to regular as tolerated - No indication for surgical admission, agree with Medicine admit Patient seen and discussed with Attending Dr. Law NEWSOME Acute Care Surgery Pager [phone] CHIEF COMPLAINT/REASON FOR CONSULT: Mr. Sweeney is a 49 yo male with a PMHx of cardiomyopathy, HFrEF s/p AIC, congenital solitary kidney, COPD, HTN, GERD, ESRD s/p 2 x renal transplant both failed who presents as a transfer from OSH who initially presented with abdominal pain. Patient states he has had right lower quadrant pain for approximately 4-5 days. Patient states he feels he pulled something while doing his job but pain was persistent and would become worse with change in positions. Denies changes in bowel habits or appetite. Has continued to pass flatus and having bowel movements and tolerating diet without n/v. He was concerned it may be his appendix and therefore he presented to the OSH ED. At OSH, CT showed dilated small bowel concerning for developing low grade obstruction. Therefore transferred to [facility] for higher level of care. Patient now stating he has no abdominal pain, n/v. Tolerating clear liquids and continues to pass flatus and have Bms. PAST MEDICAL HISTORY: PMH: cardiomyopathy, HFrEF s/p AIC, congenital solitary kidney, COPD, HTN, GERD, ESRD s/p 2 x renaltransplant both failed Medical History[1] PSH: Renal transplant x 2, cholecystectomy Surgical History[2] FH: reviewed and noncontributory to presenting problem Family History[3] SOCIAL HISTORY: Smoking: quit 3 days ago, 5-10 sticks per day Tobacco Use History[4] Alcohol: denies Social History Substance and Sexual Activity Alcohol Use Not on file Drug use: denies MEDICATIONS: polyethylene glycol (Glycolax, Miralax) packet 17 g (has no administration in time range) sodium zirconium cyclosilicate (Lokelma) packet 10 g (has no administration in time range) hydrALAZINE (Apresoline) tablet 50 mg (has no administration in time range) atorvastatin (Lipitor) tablet 40 mg (has no administration in time range) aspirin EC tablet 81 mg (has no administration in time range) carvedilol (Coreg) tablet 3.125 mg (has no administration in time range) sevelamer carbonate (Renvela) tablet 800 mg (has no administration in time range) isosorbide mononitrate tablet 60 mg (has no administration in time range Prior to Admission medications Not on File ALLERGIES: Iodine, PCN G RX Allergies[5] REVIEW OF SYSTEMS: Review of Systems Constitutional: Negative. HENT: Negative. Respiratory: Negative. Cardiovascular: Negative. Gastrointestinal: Negative. Genitourinary: Negative. Musculoskeletal: Negative. Skin: Negative. PHYSICAL EXAM: Physical Exam Constitutional: Appearance: Normal appearance. Eyes: Extraocular Movements: Extraocular movements intact. Cardiovascular: Comments: RR on monitor Pulmonary: Effort: Pulmonary effort is normal. Abdominal: Comments: Soft, non distended, non tender to palpitation, well healed scars Musculoskeletal: General: Normal range of motion. Skin: General: Skin is warm and dry. Neurological: Mental Status: He is alert and oriented to person, place, and time. Psychiatric: Behavior: Behavior normal. IMAGING SUMMARY: (summary of findings, not a copy of dictation) CT A/P 12/08/24 - Focally dilated small bowel possibly presenting developing/low grade obstruction. - Right lower lobe pleural thickening and loculated effusion with peripheral calcifications and right lower lobe scarring. - Consider prior asbestos exposure LABS: Results for orders placed or performed during the hospital encounter of 12/08/24 (from the past 24 hours) CBC and Auto Differential Result Value Ref Range WBC 4.7 4.4 - 11.3 x10*3/uL nRBC 0.0 0.0 - 0.0 /100 WBCs RBC 2.81 (L) 4.50 - 5.90 x10*6/uL Hemoglobin 7.7 (L) 13.5 - 17.5 g/dL Hematocrit 23.2 (L) 41.0 - 52.0 % MCV 83 80 - 100 fL MCH 27.4 26.0 - 34.0 pg MCHC 33.2 32.0 - 36.0 g/dL RDW 13.2 11.5 - 14.5 % Platelets 191 150 - 450 x10*3/uL Neutrophils % 89.6 40.0 - 80.0 % Immature Granulocytes %, Automated 0.2 0.0 - 0.9 % Lymphocytes % 7.9 13.0 - 44.0 % Monocytes % 1.9 2.0 - 10.0 % Eosinophils % 0.2 0.0 - 6.0 % Basophils % 0.2 0.0 - 2.0 % Neutrophils Absolute 4.22 1.20 - 7.70 x10*3/uL Immature Granulocytes Absolute, Automated 0.01 0.00 - 0.70 x10*3/uL Lymphocytes Absolute 0.37 (L) 1.20 - 4.80 x10*3/uL Monocytes Absolute 0.09 (L) 0.10 - 1.00 x10*3/uL Eosinophils Absolute 0.01 0.00 - 0.70 x10*3/uL Basophils Absolute 0.01 0.00 - 0.10 x10*3/uL Comprehensive metabolic panel Result Value Ref Range Glucose 136 (H) 74 - 99 mg/dL Sodium 134 (L) 136 - 145 mmol/L Potassium 5.4 (H) 3.5 - 5.3 mmol/L Chloride 93 (L) 98 - 107 mmol/L Bicarbonate 27 21 - 32 mmol/L Anion Gap 19 10 - 20 mmol/L Urea Nitrogen 55 (H) 6 - 23 mg/dL Creatinine 13.53 (H) 0.50 - 1.30 mg/dL eGFR 4 (L) >60 mL/min/1.73m*2 Calcium 8.5 (L) 8.6 - 10.6 mg/dL Albumin 4.0 3.4 - 5.0 g/dL Alkaline Phosphatase 62 33 - 120 U/L Total Protein 7.4 6.4 - 8.2 g/dL AST 12 9 - 39 U/L Bilirubin, Total 0.5 0.0 - 1.2 mg/dL ALT 11 10 - 52 U/L Magnesium Result Value Ref Range Magnesium 2.34 1.60 - 2.40 mg/dL Blood Gas Venous Full Panel Result Value Ref Range POCT pH, Venous 7.41 7.33 - 7.43 pH POCT pCO2, Venous 45 41 - 51 mm Hg POCT pO2, Venous 32 (L) 35 - 45 mm Hg POCT SO2, Venous 44 (L) 45 - 75 % POCT Oxy Hemoglobin, Venous 42.6 (L) 45.0 - 75.0 % POCT Hematocrit Calculated, Venous 25.0 (L) 41.0 - 52.0 % POCT Sodium, Venous 132 (L) 136 - 145 mmol/L POCT Potassium, Venous 5.9 (H) 3.5 - 5.3 mmol/L POCT Chloride, Venous 98 98 - 107 mmol/L POCT Ionized Calicum, Venous 0.99 (L) 1.10 - 1.33 mmol/L POCT Glucose, Venous 143 (H) 74 - 99 mg/dL POCT Lactate, Venous 0.7 0.4 - 2.0 mmol/L POCT Base Excess, Venous 3.4 (H) -2.0 - 3.0 mmol/L POCT HCO3 Calculated, Venous 28.5 (H) 22.0 - 26.0 mmol/L POCT Hemoglobin, Venous 8.2 (L) 13.5 - 17.5 g/dL POCT Anion Gap, Venous 11.0 10.0 - 25.0 mmol/L Patient Temperature 37.0 degrees Celsius FiO2 21 % Type And Screen Result Value Ref Range ABO TYPE O Rh TYPE POS ANTIBODY SCREEN NEG Hepatitis B surface antibody Result Value Ref Range Hepatitis B Surface AB >1,000.0 (H) <10.0 mIU/mL I have reviewed all laboratory and imaging results ordered/pertinent for this encounter. [1] Past Medical History: Diagnosis Date Personal history of other diseases of urinary system History of chronic kidney disease [2] Past Surgical History: Procedure Laterality Date OTHER SURGICAL HISTORY 08/18/2018 Kidney transplantation OTHER SURGICAL HISTORY 08/18/2018 Pacemaker insertion OTHER SURGICAL HISTORY 08/18/2018 Cardioverter defibrillator insertion [3] No family history on file. [4] Social History Tobacco Use Smoking Status Not on file Smokeless Tobacco Not on file [5] Allergies Allergen Reactions Iodinated Contrast Media Fever Penicillin G Hives [facility] Phone: [phone] Emergency department Triage note* Napoleon Lopez RN - 12/08/2024 5:48 AM EDT Pt is a transfer from [facility] after experiencing abdominal pain for the past week. Per EMS pt was found to have a bowel obstruction. Pt has a hx of kidney transplant 1996, dialysis fri-fri, and pacemaker. [facility] Work Phone: [phone] 374-309606-18-2025 Emergency department Note* Napoleon Lopez RN - 12/08/2024 5:48 AM EDT Pt is a transfer from [facility] after experiencing abdominal pain for the past week. Per EMS pt was found to have a bowel obstruction. Pt has a hx of kidney transplant 1996, dialysis fri-fri, and pacemaker. documented in this [facility] Work Phone: [phone] Radiology Diagnostic study note [facility] [address] [place] [address] Abdomen/Pelvis W IV Cont ONLY MR#: [id number] Acct: [id number] Name: CARLITOS SWEENEY Rep #: [id number] : 1975 M 49 From: Merrick Carrillo MD PCP: Dr. Monie Alston, DO Status: REG ER Study:Abdomen/Pelvis W IV Cont ONLY Date of E xam: 12/07/24 Exam# [id number] Ordering Dr: López Marinelli MD PROCEDURE: ABDOMEN/PELVIS W IV CONT ONLY 12/07/2024 REASON FOR EXAM: RIGHT LOWER QUADRANT ABDOMINAL PAIN TECHNIQUE: ABDOMEN/PELVIS W IV CONT ONLY. Coronal and Sagittal reconstruction series were provided. ORAL CONTRAST TYPE: None. AMOUNT: mL CONTRAST: Isovue 370 VOLUME: 81 mL One or more dose reduction techniques were used (e.g., Automated exposure control, adjustment of the mA and/or kV according to patient size, use of iterative reconstruction technique. RADIATION DOSE SUMMARY: CTDlvol: 9.97+ 11.0 mGy DLP: 588.47 mGycm COMPARISON: None. FINDINGS: Right lower lobe scarring. Right pleural thickening and loculated pleural effusion with peripheral calcifications. Cardiomegaly. The peripheral soft tissues are unremarkable. Degenerative changes of the spine. Atherosclerosis. Normal caliber abdominal aorta. The liver is enlarged with normal attenuation. Surgically absent gallbladder. The pancreas, and adrenals are unremarkable. The right kidney is not visualized. Severe atrophy of the left kidney. The urinary bladder is decompressed. Loops of small bowel in the right lower quadrant measuring up to 3.0 cm. The appendix is not discretely visualized. Within the bilateral pelvis there is a right 2.0 x 3.9 cm and left 3.8 x 2.[address]/Abdomen/Pelvis W IV Cont ONLY IMPRESSION: Focally dilated loops of small bowel possibly representing developing/low-grade obstruction. Right lower lobe pleural thickening with a loculated effusion with peripheral calcifications and right lower lobe scarring. Consider prior asbestos exposure. Pelvic calcified lesions which may represent lymph nodes. Reading Location: [id number] CC: Dr. Monie Alston DO; Dr. Blaise Marinelli MD ~ Fishing Rod Marker: Signed [facility]06-17-2025 Hospital Discharge instructions Patient Education 12/06/2024 22:29:47 Lower Extremity Contusion Lower Extremity Contusion You have a contusion (bruise) of a lower extremity (leg, knee, ankle, foot, or toe). Symptoms include pain, swelling, and skin discoloration. No bones are broken. This injury may take from a few daysto a few weeks to heal. During that time, the bruise may change from reddish in color, to purple-blue, to green- yellow, to yellow-brown. Home care Unless another medicine was prescribed, you can take acetaminophen, ibuprofen, or naproxen to control pain. (If you have chronic liver or kidney disease or ever had a stomach ulcer or gastrointestinal bleeding, talk with your doctor before using these medicines.) Elevate the injured area to reduce pain and swelling. As much as possible, sit or lie down with theinjured area raised about the level of your heart. This is especially important during the first 48hours. Ice the injured area to help reduce pain and swelling. Wrap a cold source (ice pack or ice cubes eron plastic bag) in a thin towel. Apply to the bruised area for 20 minutes every 1 to 2 hours the first day. Continue this 3 to 4 times a day until the pain and swelling goes away. If crutches have been advised, do not bear full weight on the injured leg until you can do so without pain. You may return to sports when you are able to put full weight and impact on the injured legwithout pain. Follow up Follow up with your healthcare provider or our staff as advised. Call if you are not improving within the next 1 to 2 weeks. When to seek medical advice Call your healthcare provider right away if any of these occur: Increased pain or swelling Foot or toes become cold, blue, numb or tingly Signs of infection: Warmth, drainage, or increased redness or pain around the injury Inability to move the injured area , or any joints below the injured area. Frequent bruising for unknown reasons [id number] [employer]. [address] [place] [address]. All rights reserved. This information is not intended as a substitute for professional medical care. Always follow yourhealthcare professional's instructions. 12/06/2024 22:29:34 Ankle Sprain (Adult) Ankle Sprain (Adult) An ankle sprain is a stretching or tearing of the ligaments that hold the ankle joint together. There are no broken bones. An ankle sprain is a common injury for both children and adults. It happens when the ankle turns, twists, or rolls in an awkward way. This can be caused by a sports injury. Or it can happen from doing something as simple as stepping on an uneven surface. Ligaments are made of tough connective tissue. Normally, ligaments stretch a certain amount and then go back to their normal place. A sprain happens when a ligament is forced to stretch more than thenormal amount. A severe sprain can actually tear the ligaments. If you have a severe sprain, you may have felt or heard something like a pop when you were injured. Ankle sprains are given a grade depending on whether they are mild, moderate, or severe: Grade 1 sprain. A mild sprain with minor stretching and damage to the ligament. Grade 2 sprain. A moderate sprain where the ligament is partly torn. Grade 3 sprain. The most severe kind of sprain. The ligament is completely torn. Most sprains take about 4 to 6 weeks to heal. A severe sprain can take several months to recover. Your healthcare provider may order X-rays to be sure you don t have a fracture, or broken bone. The injured area will feel sore. Swelling and pain may make it hard to walk. You may need crutches if walking is painful. Or your provider may have you use a cast boot or air splint. This will dependon the grade of ankle sprain that you have. Home care For a Grade 1 sprain, use RICE (rest, ice, compression, and elevation): Rest your ankle. Don t walk on it. Ice should be used right away to help control swelling. Place an ice pack over the injured area for20 minutes. Do this every 3 to 6 hours for the first 24 to 48 hours. Keep using ice packs to ease pain and swelling as needed. To make an ice pack, put ice cubes in a plastic bag that seals at the top. Wrap the bag in a clean, thin towel or cloth. Never put ice or an ice pack directly on the skin. The ice pack can be put right on the cast, bandage, or splint. As the ice melts, be careful that thecast, bandage, or splint doesn t get wet. If you have a boot, open it to apply an ice pack, unless told otherwise by your provider. Compression devices help to control swelling. They also keep the ankle from moving and support yourinjured ankle. These devices include dressings, bandages, and wraps. Elevate or raise your ankle above the level of your heart when sitting or lying down. This is very important for the first 48 hours. Follow the RICE guidelines for a Grade 2 sprain. This type of sprain will take longer to heal. Yourprovider may have you wear a splint, cast, or brace to keep your ankle from moving. If you have a Grade 3 sprain, you are at risk for long-term ankle instability. In rare cases, surgery may be needed. Your provider may have you wear a short leg cast or a walking boot for 2 to 3 weeks. After 48 hours, it may be helpful to apply heat for 20 minutes several times a day. You can do thiswith a heating pad or warm compress. Or you may want to go back and forth between using ice and heat. Never apply heat directly to the skin. Always wrap the heating pad or warm compress in a clean, thin towel or cloth. You may use [id number] pain medicine (NSAIDS or nonsteroidal anti- inflammatory drugs) to control pain, unless another pain medicine was prescribed. Talk with your provider before using these medicines if you have chronic liver or kidney disease, or have ever had a stomach ulcer or gastrointestinal bleeding. Follow any rehabilitation exercises your provider gives you. These can help you be more flexible and improve your balance and coordination. This is helpful in preventing long-term ankle problems. Prevention To help prevent ankle sprains, it s important to have good strength, balance, and flexibility. Be sure to: Always warm up before you exercise or do something very active Be careful when walking or running on uneven or cracked surfaces Wear shoes that are in good condition and fit well Listen to your body s signals to slow down when you are in pain or tired Follow-up care Any X-rays you had today don t show any broken bones, breaks, or fractures. Sometimes fractures dont show up on the first X-ray. Bruises and sprains can sometimes hurt as much as a fracture. These injuries can take time to heal completely. If your symptoms don t get better or they get worse, talk with your healthcare provider. You may need a repeat X-ray. Follow up with your healthcare provider, or as advised. Check for any warning signs listed below. When to seek medical advice Call your healthcare provider right away if any of these occur: Fever of 100.4 F (38 C) or higher, or as directed by your healthcare provider Chills The injury doesn t seem to be healing The swelling comes back The cast or splint has a bad smell The plaster cast or splint gets wet or soft The fiberglass cast or splint gets wet and does not dry for 24 hours The pain or swelling increases, or redness appears Your toes become cold, blue, numb, or tingly The skin is discolored (looks blue, purple, or main), has blisters, or is irritated You re-injure your ankle [id number] [employer]. [address] [place] [address]. All rights reserved. This information is not intended as a substitute for professional medical care. Always follow yourhealthcare professional's instructions. Follow Up Care 12/06/2024 20:04:18 With:DANA LEO MD, Orthopedic Address: [facility], [address] [facility] [place] [address]- [phone] When:2-4 days With:MONIE ALSTON DO Address: [address] [facility] [place] [phone] When:2-4 days [facility] 06-16-2025 Emergency department Discharge summary Discharge Instructions Thank you for allowing [facility] to assist you with your healthcare needs. The following is importantdischarge information regarding your hospital visit. Diagnosis from Today's Visit Ankle injury What to Do Next Instructions from Your Care Team Discharge Home Equipment - Ordered -- Crutches, 99 month(s), 12/06/24 22:24:00 EDT Discharge Home Equipment - Ordered -- Splint, Ankle Stirrup Right, 99 month(s), 12/06/24 22:24:00 EDT Post Acute Orders No qualifying data available. You Need to Schedule the Following Appointments Follow Up with DANA LEO MD, Orthopedic When:Within 2-4 days Where:[address] [facility] [address] [facility] [place] [address]- [phone] Follow Up with MONIE ALSTON DO When:Within 2-4 days Where:[address] [facility] [place] [address] [phone] Allergies penicillin (Moderate) Anaphylaxis, rash Contrast dye Skin rash, Fever Medications Please ask your primary doctor or pharmacist before taking any other medication not listed, including over the counter drugs, herbal medications, vitamins and or supplements as they may interact withyour home medications. What How Much When Why Instructions Last Dose Unchanged acetaminophen (acetaminophen 325 mg oral capsule) 2 cap by mouth Every 4 hours as needed for for pain Unchanged albuterol (albuterol MDI (90 mcg/ inh) CFC free inhalation aerosol) 1 puff(s) by inhalation Every 4 hours as needed for as needed for wheezing Unchanged aspirin (aspirin 81 mg oral delayed release tablet) 1 tab(s) by mouth Every day Unchanged atorvastatin (atorvastatin 40 mg oral tablet) 1 tab(s) by mouth Once a day Unchanged budesonide-formoterol (Symbicort 80 mcg-4.5 mcg/ inh Inhaler) 2 puff(s) by inhalation Two (2) times a day COPD (chronic obstructive pulmonary disease) Unchanged calcium acetate (calcium acetate 667 mg oral capsule) 4 cap by mouth Three (3) times a day with meals Unchanged carvedilol (carvedilol 3.125 mg oral tablet) 1 tab(s) by mouth Twice daily with meals Unchanged isosorbide mononitrate (isosorbide mononitrate 30 mg oral tablet, extended release) 2 tab(s) by mouth Once a day before a meal Duration: 30 Days Unchanged midodrine (midodrine 5 mg oral tablet) 2 tab(s) by mouth Three (3) times a day Unchanged nicotine (nicotine 21 mg/ 24 hr transdermal film, extended release) 1 patch(es) Transdermal Once a day Duration: 30 Days apply to skin Unchanged sevelamer (Renvela 800 mg oral tablet (NF)) 1 tab(s) by mouth Three (3) times a day with meals Please take this list to your next doctor s visit. Bring all medications you take, including over the counter medications, herbals and other supplements with you to your doctor s visit. Patients and families are reminded to discard old lists and to update any records with all medication providers or retail pharmacies. Education Materials Lower Extremity Contusion You have a contusion (bruise) of a lower extremity (leg, knee, ankle, foot, or toe). Symptoms include pain, swelling, and skin discoloration. No bones are broken. This injury may take from a few daysto a few weeks to heal. During that time, the bruise may change from reddish in color, to purple-blue, to green- yellow, to yellow-brown. Home care Unless another medicine was prescribed, you can take acetaminophen, ibuprofen, or naproxen to control pain. (If you have chronic liver or kidney disease or ever had a stomach ulcer or gastrointestinal bleeding, talk with your doctor before using these medicines.) Elevate the injured area to reduce pain and swelling. As much as possible, sit or lie down with theinjured area raised about the level of your heart. This is especially important during the first 48hours. Ice the injured area to help reduce pain and swelling. Wrap a cold source (ice pack or ice cubes eron plastic bag) in a thin towel. Apply to the bruised area for 20 minutes every 1 to 2 hours the first day. Continue this 3 to 4 times a day until the pain and swelling goes away. If crutches have been advised, do not bear full weight on the injured leg until you can do so without pain. You may return to sports when you are able to put full weight and impact on the injured legwithout pain. Follow up Follow up with your healthcare provider or our staff as advised. Call if you are not improving within the next 1 to 2 weeks. When to seek medical advice Call your healthcare provider right away if any of these occur: Increased pain or swelling Foot or toes become cold, blue, numb or tingly Signs of infection: Warmth, drainage, or increased redness or pain around the injury Inability to move the injured area , or any joints below the injured area. Frequent bruising for unknown reasons [id number] [employer]. [address] [place] [address]. All rights reserved. This information is not intended as a substitute for professional medical care. Always follow yourhealthcare professional's instructions. Ankle Sprain (Adult) An ankle sprain is a stretching or tearing of the ligaments that hold the ankle joint together. There are no broken bones. An ankle sprain is a common injury for both children and adults. It happens when the ankle turns, twists, or rolls in an awkward way. This can be caused by a sports injury. Or it can happen from doing something as simple as stepping on an uneven surface. Ligaments are made of tough connective tissue. Normally, ligaments stretch a certain amount and then go back to their normal place. A sprain happens when a ligament is forced to stretch more than thenormal amount. A severe sprain can actually tear the ligaments. If you have a severe sprain, you may have felt or heard something like a pop when you were injured. Ankle sprains are given a grade depending on whether they are mild, moderate, or severe: Grade 1 sprain. A mild sprain with minor stretching and damage to the ligament. Grade 2 sprain. A moderate sprain where the ligament is partly torn. Grade 3 sprain. The most severe kind of sprain. The ligament is completely torn. Most sprains take about 4 to 6 weeks to heal. A severe sprain can take several months to recover. Your healthcare provider may order X-rays to be sure you don t have a fracture, or broken bone. The injured area will feel sore. Swelling and pain may make it hard to walk. You may need crutches if walking is painful. Or your provider may have you use a cast boot or air splint. This will dependon the grade of ankle sprain that you have. Home care For a Grade 1 sprain, use RICE (rest, ice, compression, and elevation): Rest your ankle. Don t walk on it. Ice should be used right away to help control swelling. Place an ice pack over the injured area for20 minutes. Do this every 3 to 6 hours for the first 24 to 48 hours. Keep using ice packs to ease pain and swelling as needed. To make an ice pack, put ice cubes in a plastic bag that seals at the top. Wrap the bag in a clean, thin towel or cloth. Never put ice or an ice pack directly on the skin. The ice pack can be put right on the cast, bandage, or splint. As the ice melts, be careful that thecast, bandage, or splint doesn t get wet. If you have a boot, open it to apply an ice pack, unless told otherwise by your provider. Compression devices help to control swelling. They also keep the ankle from moving and support yourinjured ankle. These devices include dressings, bandages, and wraps. Elevate or raise your ankle above the level of your heart when sitting or lying down. This is very important for the first 48 hours. Follow the RICE guidelines for a Grade 2 sprain. This type of sprain will take longer to heal. Yourprovider may have you wear a splint, cast, or brace to keep your ankle from moving. If you have a Grade 3 sprain, you are at risk for long-term ankle instability. In rare cases, surgery may be needed. Your provider may have you wear a short leg cast or a walking boot for 2 to 3 weeks. After 48 hours, it may be helpful to apply heat for 20 minutes several times a day. You can do thiswith a heating pad or warm compress. Or you may want to go back and forth between using ice and heat. Never apply heat directly to the skin. Always wrap the heating pad or warm compress in a clean, thin towel or cloth. You may use xsrw-nlv-fsnmyck pain medicine (NSAIDS or nonsteroidal anti- inflammatory drugs) to control pain, unless another pain medicine was prescribed. Talk with your provider before using these medicines if you have chronic liver or kidney disease, or have ever had a stomach ulcer or gastrointestinal bleeding. Follow any rehabilitation exercises your provider gives you. These can help you be more flexible and improve your balance and coordination. This is helpful in preventing long-term ankle problems. Prevention To help prevent ankle sprains, it s important to have good strength, balance, and flexibility. Be sure to: Always warm up before you exercise or do something very active Be careful when walking or running on uneven or cracked surfaces Wear shoes that are in good condition and fit well Listen to your body s signals to slow down when you are in pain or tired Follow-up care Any X-rays you had today don t show any broken bones, breaks, or fractures. Sometimes fractures dont show up on the first X-ray. Bruises and sprains can sometimes hurt as much as a fracture. These injuries can take time to heal completely. If your symptoms don t get better or they get worse, talk with your healthcare provider. You may need a repeat X-ray. Follow up with your healthcare provider, or as advised. Check for any warning signs listed below. When to seek medical advice Call your healthcare provider right away if any of these occur: Fever of 100.4 F (38 C) or higher, or as directed by your healthcare provider [place] The injury doesn t seem to be healing The swelling comes back The cast or splint has a bad smell The plaster cast or splint gets wet or soft The fiberglass cast or splint gets wet and does not dry for 24 hours The pain or swelling increases, or redness appears Your toes become cold, blue, numb, or tingly The skin is discolored (looks blue, purple, or main), has blisters, or is irritated You re-injure your ankle [id number] [employer]. [address] [place] [address]. All rights reserved. This information is not intended as a substitute for professional medical care. Always follow yourhealthcare professional's instructions. Additional Information VACCINATE! IT SAVES LIVES! Members of the community who have not yet received the COVID-19 vaccine and would like to receive it can visit one of [facility] vaccine clinics. There are many vaccine clinic locations within the [facility]. For locations and available times, please visit www.gettheshot.coronavirus.[place].gov/. It is important to note that some COVID mobile vaccine clinics are held outdoors and may be canceled in rainy or stormy conditions. To learn more about pediatric vaccinations (ages 5-11), we invite you to visit the [facility] webpage. https://www.[facility].org/pages/8254-Pmoqw-Frmpduiegdz-Xrgbogtcux-Pjpfh-Brd stions.htmlTo learn more about the COVID-19 vaccine, we invite you to visit the CDC website for a list of frequently asked questions. https://www.cdc.gov/coronavirus/2019-ncov/vaccines/faq.html [facility] Patient [facility] Access Instructions: Stay connected with your healthcare team and access your personal medical information anytime with the [facility] Patient Portal. If you would like a full copy of your medical records please contact the [facility] Medical Records Department Friday through Friday between 8a.m. and 4:30p.m. Please follow the directions below to access the portal: 1.Access the email account you provided upon registration to the [facility].2.Look for an invitation email from [facility].3.Open the email and access the invitation link: Accept Invitation to [facility]4.Fill in the required luis to create your account. Sign into [email or web address] with your username and password that you created in the above steps to stay up to date. You can then view a summary of results, a summary of your visits, and the ability to download your summaries to your computer or send the information securely to a physician. Remember that your healthcare information is confidential, so carefully consider who you will allow to register on the [facility] Patient Portal for access to your information. You can also access the [facility] Patient Portal on the [employer] kyleigh. Simply click on Health Records under [employer] and then click on the [employer] logo. HOW TO SAFELY DISPOSE OF PRESCRIPTION MEDICATIONS Please use one of the following methods to safely dispose of your unused medications. 1.Use a drug disposal kit: the drug disposal pouch allows you to safely discard your old and unuseddrugs. Ask your nurse to give you one when you are discharged.2.Visit a local take-back location: Many local pharmacies and police departments have programs that collect old and unwanted prescriptiondrugs. Call your local pharmacy or go to http://bit.ly/4J3Oi8c to find one close to you.3.Make use of household items: Use cat litter or old coffee grounds to dispose medications if other options arenot available. Mix your drugs with these household products, seal them in an airtight container andthrow it into the garbage. Call [facility]: [phone] to be sure your drugs can be disposed of in this way. Some medicines may require a different approach.4.Never flush your medications down the toilet. IF YOU HAVE BEEN PRESCRIBED AN OPIOIDS FOR PAIN If you have been prescribed an opioid (such as hydrocodone, oxycodone or morphine), it is critical to understand the possible side effects and risks of opioid pain medications. Even when taken as directed, opioids can have several side effects including: Tolerance, meaning you might need to take more of a medication for the same pain relief. Nausea, vomiting and/or constipation. Sleepiness, dizziness, dry mouth, confusion, depression or itching. Physical dependence, meaning you have withdrawal symptoms when a medication is stopped ? this can develop within a few days. KNOW YOUR RESPONSIBILITIES It is important to know exactly how much and how often to take the opioid pain medications you are prescribed. Never take opioids in higher amounts or more often than prescribed. Do not combine opioids with alcohol or other drugs that cause drowsiness, such as benzodiazepines, also known as benzos,including diazepam and alprazolam, muscle relaxants or sleep aids. Never sell or share prescriptionopioids. This is illegal. Store opioids in a secure place and out of reach of others (including children, family, friends and visitors). The last page(s) of this document has been signed and retained as a CHART COPY Signatures Patient Education Materials Lower Extremity Contusion Ankle Sprain (Adult) Medication Leaflets My discharge plan and instructions have been reviewed and explained to me and IZAHRA CHAD K understand my current condition and have read and understand these discharge instructions. I have received a written copy of the plan/instructions. If I have questions, I am aware that I should contact my doc tor. 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 Vascular calcifications. Os peroneum seen. IMPRESSION: No acute fracture or dislocation. I have personally reviewed the images of this examination and agree with the resident's findings and interpretation. Interpreted by: Lyle Mendenhall Preliminary Report By: Ranjith Donovan Electronically signed By Lyle Mendenhall Dictated Date: 12/06/2024 9:46:46 PM Prelim Date: 12/06/2024 9:52:03 PM Sign Date: 12/06/2024 10:00:33 PM Ordering Provider: ODILIA DAVILA [facility]06-04-2025 Instructions* Patient Instructions* Columba Keith APRN.[facility] - 11/24/2024 12:55 PM EDT ASSESSMENT/PLAN: 1. Other acute nonsuppurative otitis media of left ear, recurrence not specified - ICD9: 381.00, ICD10: H65.192 (primary diagnosis) - Will begin treatment with as per antibiotic as written, see orders - The patient should also be given mucinex for the first 5-7 days of treatment. - Supportive care with plenty of fluids, rest, and analgesia prn. - CEFDINIR 300 MG CAPSULE 2. Viral URI with cough - ICD9: 465.9, ICD10: J06.9 - Discussed viral etiology and rationale for treatment. - Symptomatic treatment with prn analgesia - Supportive care with fluids and rest - The patient may also use mucinex. - GUAIFENESIN ER 600 MG TABLET, EXTENDED RELEASE 12 HR - Follow-up with your PCP in 3-5 days if symptoms have not improved or sooner if symptoms worsen - Discussed red flags and need for immediate medical evaluation if any occur. - Discussed supportive care treatment with fluids, rest and analgesia. - Discussed expected course of illness Columba Keith APRN.MANUFACTURING COORDINATOR documented [facility] NoteHNO ID: [id number] Author: COLUMBA KEITH APRN.MANUFACTURING COORDINATOR Service: ? Author Type: Nurse Practitioner Type: Progress Notes Filed: 11/24/2024 12:57 Note Text: [facility] Subjective Carlitos Sweeney is a 49 year old male. Patient presents with: Sinus Problem: Congestion, cough, left ear issues x 4 days Sinus Problem Associated symptoms include congestion and coughing. Pertinent negatives include no chest pain, chills, fatigue, fever, headaches, myalgias, rash or sore throat. Carlitos Sweeney is a 49 year old male who presents with congestion, cough, sinus congestion and drainage and left ear feeling clogged for the past 4 days. He is currently on dialysis due to ESRD. Denies fever, chills, body aches. Has taken OTC cold medication without improvement. Review of Systems Constitutional: Negative for chills, fatigue and fever. HENT: Positive for congestion, ear pain, hearing loss and sinus pressure. Negative for ear discharge, sinus pain and sore throat. Respiratory: Positive for cough. Negative for shortness of breath and wheezing. Cardiovascular: Negative for chest pain. Musculoskeletal: Negative for myalgias. Skin: Negative for rash. Neurological: Negative for headaches. Objective BP 142/82 Pulse 97 Resp 20 Wt 76.3 kg (168 lb 3.4 oz) SpO2 98% BMI 23.46 kg/m? PAST MEDICAL HISTORY Diagnosis Date - Abdominal pain 10/01/2013 - Anemia associated with stage 5 chronic renal failure (HCC) ([facility]) 07/01/2022 - Anxiety 10/01/2013 - Arteriovenous fistula, acquired ([facility]) 11/21/2022 - BENIGN HYP RENAL W KID FAIL 02/11/2005 - Cardiomyopathy ([facility]) 07/01/2022 Echo 12/2014 EF 20%. - Chronic combined systolic and diastolic CHF (congestive heart failure) ([facility]) 08/18/2015 Seeing cardio in [place] (has pace maker/defibulator) - Chronic kidney disease, stage 5 ([facility]) Dialysis M,W,F @ [facility] - Chronic obstructive pulmonary disease ([facility]) 08/18/2015 - Chronic obstructive pulmonary disease ([facility]) 08/18/[address] 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 - Elevated hemoglobin A1c 10/13/2020 - End stage renal failure on dialysis ([facility]) 02/12/2017 - Essential hypertension 09/10/2013 - Gastroesophageal reflux disease without esophagitis 10/23/2016 - H/O: endocrine disorder 07/01/2022 Comment on above: HYPERPARATHYROIDISM - DR HERNANDEZ NOTES - Hemodialysis patient ([facility]) 03/28/2016 - History of cardiac pacemaker in situ 08/31/2015 - History of implantable cardiac defibrillator (ICD) 02/03/2015 - Hyperkalemia 02/12/2017 - Hyperphosphatemia 02/12/2017 - Hypertensive heart disease with congestive heart failure ([facility]) 02/12/2017 - Hypocalcemia 02/12/2017 - Implantable cardioverter-defibrillator (ICD) in situ 02/12/2017 - Kidney replaced by transplant 05/27/1997 - Kidney transplant failure and rejection 05/12/2013 - Kidney transplant rejection 05/12/2013 - Left ventricular systolic dysfunction 08/31/2015 - Malrotation of colon 07/01/[address]d 07/02/2015 Comment on above: noted on ct abd 07/02/2015 - Migraine headache 07/01/2022 - Mild episode of recurrent major depressive disorder (HCC) 09/04/2021 - Moderate episode of recurrent major depressive disorder (HCC) 10/23/2016 - MRSA colonization, nasal 02/28/2014 - Nonrheumatic aortic valve stenosis 11/21/2022 Seeing cardio - Presence of combination internal cardiac defibrillator (ICD) and pacemaker - Psychophysiological insomnia 11/14/2020 [facility] substance [facility]. If cancels or No Shows the Belsomra will be stopped. - Recurrent right pleural effusion 02/12/2022 - Smoker 08/18/2015 Started at age 14 up to 1-1.5 PPD, currently at 1/2 PPD (10/2016), as of 05/2019 less than 1/2 a PPD - Uremic encephalopathy 07/01/2022 PAST SURGICAL HISTORY Procedure Laterality Date - 2D ECHO (EXEP) 11/02/2020 EF=50%, mod Joshi dysf - CHOLECYSTECTOMY - INSJ TUNNELED CVC W/O SUBQ PORT/MANAGER TRAINING AND DEVELOPMENT AGE 3 YR/> 01/21/2014 - PAST SURGICAL HISTORY OF 05/1997 Renal Transplant, cadaveric - PAST SURGICAL HISTORY OF 09/2011 renal transplant - PAST SURGICAL HISTORY OF Right cautery right nare for chronic nosebleeds - PAST SURGICAL HISTORY OF 01/31/2017 LEFT UPPER ARM AVG ALLERGIES Iodinated Contrast Media, Cyclobenzaprine, Dye, Penicillins, Procardia [Nifedipine], and Tramadol MEDICATIONS - albuterol HFA (PROVENTIL HFA, VENTOLIN HFA) 90 mcg/actuation inhaler Inhale 2 Puffs as instructed every 4 hours as needed for wheezing/shortness of breath. - hydrALAZINE (APRESOLINE) 50 mg tablet Take 100 mg by mouth three times a day. - atorvastatin (LIPITOR) 40 mg tablet Take 1 tablet by mouth daily at bedtime. - aspirin 81 mg chewable tablet 1 tablet by ORAL/FEEDING TUBE route once daily. - carvedilol (COREG) 3.125 mg tablet Take 1 tablet by mouth twice daily with meals. Per [facility] - sevelamer carbonate (KHARI (more content not included)...[facility]06-04-2025 History of Present illness Narrative* Nate-Columba Gómez APRN.MANUFACTURING COORDINATOR - 11/24/2024 12:49 PM EDT [facility] Subjective Carlitos Sweeney is a 49 year old male. Patient presents with: Sinus Problem: Congestion, cough, left ear issues x 4 days Sinus Problem Associated symptoms include congestion and coughing. Pertinent negatives include no chest pain, chills, fatigue, fever, headaches, myalgias, rash or sore throat. Carlitos Sweeney is a 49 year old male who presents with congestion, cough, sinus congestion and drainageand left ear feeling clogged for the past 4 days. He is currently on dialysis due to ESRD. Denies fever, chills, body aches. Has taken OTC cold medication without improvement. Review of Systems Constitutional: Negative for chills, fatigue and fever. HENT: Positive for congestion, ear pain, hearing loss and sinus pressure. Negative for ear discharge, sinus pain and sore throat. Respiratory: Positive for cough. Negative for shortness of breath and wheezing. Cardiovascular: Negative for chest pain. Musculoskeletal: Negative for myalgias. Skin: Negative for rash. Neurological: Negative for headaches. Objective BP 142/82 Pulse 97 Resp 20 Wt 76.3 kg (168 lb 3.4 oz) SpO2 98% BMI 23.46 kg/m PAST MEDICAL HISTORY Diagnosis Date Abdominal pain 10/01/2013 Anemia associated with stage 5 chronic renal failure ([facility]) ([facility]) 07/01/2022 Anxiety 10/01/2013 Arteriovenous fistula, acquired ([facility]) 11/21/2022 BENIGN HYP RENAL W KID FAIL 02/11/2005 Cardiomyopathy ([facility]) 07/01/2022 Echo 12/2014 EF 20%. Chronic combined systolic and diastolic CHF (congestive heart failure) ([facility]) 08/18/2015 Seeing cardio in [place] (has pace maker/defibulator) Chronic kidney disease, stage 5 ([facility]) Dialysis M,W,F @ [facility] Chronic obstructive pulmonary disease ([facility]) 08/18/2015 Chronic obstructive pulmonary disease ([facility]) 08/18/[address] Barber ([facility]) Congenital solitary kidney pt was born with solitary atrophic kidney Elevated hemoglobin A1c 10/13/2020 End stage renal failure on dialysis ([facility]) 02/12/2017 Essential hypertension 09/10/2013 Gastroesophageal reflux disease without esophagitis 10/23/2016 H/O: endocrine disorder 07/01/2022 Comment on above: HYPERPARATHYROIDISM - DR HERNANDEZ NOTES Hemodialysis patient ([facility]) 03/28/2016 History of cardiac pacemaker in situ 08/31/2015 History of implantable cardiac defibrillator (ICD) 02/03/2015 Hyperkalemia 02/12/2017 Hyperphosphatemia 02/12/2017 Hypertensive heart disease with congestive heart failure ([facility]) 02/12/2017 Hypocalcemia 02/12/2017 Implantable cardioverter-defibrillator (ICD) in situ 02/12/2017 Kidney replaced by transplant 05/27/1997 Kidney transplant failure and rejection 05/12/2013 Kidney transplant rejection 05/12/2013 Left ventricular systolic dysfunction 08/31/2015 Malrotation of colon 07/01/[address]d 07/02/2015 Comment on above: noted on ct abd 07/02/2015 Migraine headache 07/01/2022 Mild episode of recurrent major depressive disorder (HCC) 09/04/2021 Moderate episode of recurrent major depressive disorder (HCC) 10/23/2016 MRSA colonization, nasal 02/28/2014 Nonrheumatic aortic valve stenosis 11/21/2022 Seeing cardio Presence of combination internal cardiac defibrillator (ICD) and pacemaker Psychophysiological insomnia 11/14/2020 Patient needs substance agreement and Tox screening done at appt on 01/10/2021. If cancels or No Shows the Belsomra will be stopped. 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 PAST SURGICAL HISTORY Procedure Laterality Date 2D ECHO (EXEP) 11/02/2020 EF=50%, mod Joshi dysf CHOLECYSTECTOMY INSJ TUNNELED CVC W/O SUBQ PORT/MANAGER TRAINING AND DEVELOPMENT AGE 3 YR/> 01/21/2014 PAST SURGICAL HISTORY OF 05/1997 Renal Transplant, cadaveric PAST SURGICAL HISTORY OF 09/2011 renal transplant PAST SURGICAL HISTORY OF Right cautery right nare for chronic nosebleeds PAST SURGICAL HISTORY OF 01/31/2017 LEFT UPPER ARM AVG ALLERGIES Iodinated Contrast Media, Cyclobenzaprine, Dye, Penicillins, Procardia [Nifedipine], and Tramadol MEDICATIONS albuterol HFA (PROVENTIL HFA, VENTOLIN HFA) 90 mcg/actuation inhaler Inhale 2 Puffs as instructed every 4 hours as needed for wheezing/shortness of breath. hydrALAZINE (APRESOLINE) 50 mg tablet Take 100 mg by mouth three times a day. atorvastatin (LIPITOR) 40 mg tablet Take 1 tablet by mouth daily at bedtime. aspirin 81 mg chewable tablet 1 tablet by ORAL/FEEDING TUBE route once daily. carvedilol (COREG) 3.125 mg tablet Take 1 tablet by mouth twice daily with meals. Per [facility] sevelamer carbonate (RENVELA) 800 mg tablet Take 1 tablet by mouth three times daily. acetaminophen (TYLENOL) 325 mg tablet Take 2 tablets every 4 hours as needed for pain. cefdinir (OMNICEF) 300 mg capsule Take 1 capsule by mouth every 48 hours for 7 days. Take after dialysis guaiFENesin (MUCINEX) 600 mg 12 hr tablet Take 1 tablet by mouth two times a day for 7 days. FAMILY HISTORY Problem Relation Age of Onset Diabetes Father Heart Father Asthma Brother Heart Brother Diabetes Paternal Uncle Anesthesia Problems No Family History Social History Tobacco Use Smoking status: Every Day Current packs/day: 0.50 Average packs/day: 0.5 packs/day for 29.0 years (14.5 ttl pk-yrs) Types: Cigarettes Smokeless tobacco: Never Tobacco comments: off and on, couple cigarettes per day Vaping Use Vaping status: Never Used Substance Use Topics Alcohol use: No Drug use: No Physical Exam Vitals and nursing note reviewed. Constitutional: General: He is not in acute distress. Appearance: Normal appearance. He is not ill-appearing. HENT: Right Ear: Tympanic membrane, ear canal and external ear normal. Left Ear: Ear canal and external ear normal. Tenderness present. A middle ear effusion is present. Tympanic membrane is erythematous. Nose: Congestion present. Mouth/Throat: Mouth: Mucous membranes are moist. Pharynx: Oropharynx is clear. No posterior oropharyngeal erythema. Cardiovascular: Rate and Rhythm: Normal rate and regular rhythm. Heart sounds: Normal heart sounds. Pulmonary: Effort: Pulmonary effort is normal. No respiratory distress. Breath sounds: Normal breath sounds. No wheezing or rales. Skin: General: Skin is warm and dry. Findings: No erythema or rash. Neurological: Mental Status: He is alert. {ASSESSMENT/PLAN: 1. Other acute nonsuppurative otitis media of left ear, recurrence not specified - ICD9: 381.00, ICD10: H65.192 (primary diagnosis) - Will begin treatment with as per antibiotic as written, see orders - The patient should also be given mucinex for the first 5-7 days of treatment. - Supportive care with plenty of fluids, rest, and analgesia prn. - CEFDINIR 300 MG CAPSULE 2. Viral URI with cough - ICD9: 465.9, ICD10: J06.9 - Discussed viral etiology and rationale for treatment. - Symptomatic treatment with prn analgesia - Supportive care with fluids and rest - The patient may also use mucinex. - GUAIFENESIN ER 600 MG TABLET, EXTENDED RELEASE 12 HR - Follow-up with your PCP in 3-5 days if symptoms have not improved or sooner if symptoms worsen - Discussed red flags and need for immediate medical evaluation if any occur. - Discussed supportive care treatment with fluids, rest and analgesia. - Discussed expected course of illness Columba Keith APRN.CNP History and Record Review Clinical information obtained from an independent historian. History obtained from or confirmed by:spouse. Disposition The patient was discharged. OTC Medications were advised: Procedures documented in [facility] NoteHNO ID: [id number] Author: CHAYA BRIDGES MD Service: ? Author Type: Physician Type: Progress Notes Filed: 10/18/2024 11:22 Note Text: [facility] Subjective Carlitos Sweeney is a 49 year old male. Patient presents with: Nose Bleed: left side x this am Patient presents with concern for nosebleed that began at 3 AM. He did have blood run down the back of his throat and he coughed out a blood clot. Bleeding stopped but had resumed once more today. He feels as though it is going to start bleeding again soon. He denies any injury. He has some frontal sinus pressure but no significant headache. He took his blood pressure medication 1 hour before arrival. His blood pressure has been running 150s to 170s over 80s to 90s at dialysis. He denies any abnormal bruising or blood in his stool. He makes no urine and is edentulous. He has had epistaxis requiring cautery and packing in the past. Review of Systems Objective BP 182/100 Pulse 86 Temp 36.1 ?C (96.9 ?F) Resp 16 Wt 78.7 kg (173 lb 8 oz) SpO2 98% BMI 24.20 kg/m? Last 4 Encounter BP Readings: Date: BP: 10/18/2024 172/80 05/30/2024 109/69 04/13/2024 159/77 04/01/2024 140/80 Physical Exam Constitutional: General: He is not in acute distress. Appearance: He is not ill-appearing. HENT: Right Ear: There is impacted cerumen. Left Ear: Tympanic membrane and ear canal normal. Ears: Comments: Rounded whitish mass (reports mass has been present for years) in the distal right canal anterior superior aspect occluding one third of the canal with the remainder of the canal occluded with cerumen at that level Nose: Comments: Small eschar very superior vestibule of the cartilaginous nose left nostril. Eschar and suspected ulceration left nostril septum without active bleeding Eyes: Extraocular Movements: Extraocular movements intact. Conjunctiva/sclera: Conjunctivae normal. Pupils: Pupils are equal, round, and reactive to light. Cardiovascular: Rate and Rhythm: Normal rate and regular rhythm. Heart sounds: No murmur heard. Pulmonary: Effort: No respiratory distress. Breath sounds: No wheezing, rhonchi or rales. Musculoskeletal: Cervical back: Neck supple. Lymphadenopathy: Cervical: No cervical adenopathy. Neurological: Mental Status: He is alert. {ASSESSMENT/PLAN: 1. Left-sided epistaxis - ICD9: 784.7, ICD10: R04.0 (primary diagnosis) Appears to have distal source of epistaxis. I advised pinching the nose for 10 minutes if bleeding recurs. Follow-up with ENT or with the emergency room if unable to stop bleeding for packing or cauterization. 2. Essential hypertension - ICD9: 401.9, ICD10: I10 Repeat BP 172/80. 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 Chaya Bridges MD Differential Diagnoses - distal nasal epistaxis from mechanical abrasion is more likely for the following reason(s): suggested by [facility]* Diagnosis Onset Date Resolution Status Admit Date Anemia of chronic disease chronic September 07, 2024 2:27pm Coronary artery disease chronic M arch 2024 2:27pm Dyslipidemia chronic September 07, 2024 2:27pm ESRD (end stage renal diseas e) on dialysis chronic September 07, 2024 2:27pm Essential hypertension chronic Ma rch 2024 2:27pm Non-ischemic cardiomyopathy chronic September 07, 2024 2:27pm S/P internal cardiac defibrillator procedure chronic September 072024 2:27pm [facility] Work Phone: [phone]) 851-463403-12-2025 Telephone encounter Note* Telephone Encounter - Yessy Bridges - 09/01/2024 2:50 PM EDT Left voicemail for patient to call office to update/verify correct mailing address. [facility] Work Phone: [phone]) 342-285703-12-2025 Miscellaneous Notes* Telephone Encounter - BridgesYessy - 09/01/2024 2:50 PM EDT Left voicemail for patient to call office to update/verify correct mailing address. documented in this [facility] Note* Exam Date Time Procedure Performing Provider Status 08/24/24 3:49 PM XR Spine Lumbar Flex /Ext w/Obliques JAYCOB GRIMALDO MD; Auth (Verified) [id number] ORIGINAL EXAMINATION: 7 XRAY VIEWS OF THE LUMBAR SPINE WITH OBLIQUES AND FLEXION/EXTENSION VIEWS08/24/2024 3:49 pm COMPARISON: 09/10/2020. HISTORY: ORDERING SYSTEM PROVIDED HISTORY: Reason for Exam: months of low back pain left sciatica, eval spine health for fracture malalignment etc FINDINGS: There are 5 lumbar-type vertebral bodies. Vertebral body heights are maintained. There is slight retrolisthesis of L2 on L3 and L3 on L4. These findings appear unchanged on flexion and extension imaging. Intervertebral disc space heights are maintained. Mild facet arthropathy is noted within the lower lumbar spine. A poly lobulated calcified density projects over the right pelvis. ICD leads are partially visualized. IMPRESSION: No acute osseous abnormality. Mild multilevel degenerative changes within the lumbar spine, as described above. These findings have slightly progressed since the prior exam. Nonspecific calcified body in the pelvis, similar to the prior exam I have personally reviewed the images of this examination and agree with the resident's findings and interpretation. Interpreted by: Jaycob Grimaldo MD Preliminary Report By: Martinez Barrios Electronically signed By Jaycob Grimaldo MD Dictated Date: 08/24/2024 3:54:48 PM Prelim Date: 08/24/2024 4:23:52 PM Sign Date: 08/24/2024 4:23:52 PM Ordering Provider: [facility]02-12-2025 Telephone encounter Note* Telephone Encounter - Yessy Bridges - 08/04/2024 2:32 PM EST Received returned mail from post office, triend calling patient to verify correct address, no answer and no v/m available. [facility] Work Phone: 1([phone]) 279-474102-12-2025 Miscellaneous Notes* Telephone Encounter - Yessy Bridges - 08/04/2024 2:32 PM EST Received returned mail from post office, triend calling patient to verify correct address, no answer and no v/m available. documented in this encounter[facility]12-08-2024 NoteHNO ID: [id number] Author: SOILA MARIA APRN.MANUFACTURING COORDINATOR Service: ? Author Type: Nurse Practitioner Type: Progress Notes Filed: 05/30/2024 12:38 Note Text: This note was created using NoteWriter. Subjective Carlitos Sweeney is a 48 year old male. 48 year old male with PMH migraine, CHF, cardiomyopathy, kidney failure ( @ age of 18) and is M-W-F (last treatment Friday) presents for illness. Acute onset 3 days ago + cough +productive +runny nose +sinus pressure Denies fever or chills Denies body aches Denies N/V/D Denies CP Denies dyspnea Used allergy medicine with some relief of sinus pressure Cough worse with laying down and at night +tobacco usage , but endorses he cannot smoke as much related to illness The history is provided by the patient. No medical language specialist was used. URI He complains of cough, shortness of breath, sputum production and wheezing. There is no chest tightness, difficulty breathing, frequent throat clearing, hemoptysis or hoarse voice. This is a new problem. The current episode started in the past 7 days. The problem occurs constantly. The problem has been gradually worsening. The cough is productive of sputum. Associated symptoms include ear congestion, ear pain, headaches, nasal congestion, postnasal drip, rhinorrhea, sneezing and a sore throat. Pertinent negatives include no appetite change, chest pain, dyspnea on exertion, fever, heartburn, malaise/fatigue, myalgias, orthopnea, PND, sweats, trouble swallowing or weight loss. His symptoms are aggravated by nothing. His symptoms are alleviated by nothing. He reports no improvement on treatment. Risk factors for lung disease include smoking/tobacco exposure. There is no history of asthma, bronchiectasis, bronchitis, COPD, emphysema or pneumonia. PAST MEDICAL HISTORY Diagnosis Date Abdominal pain 10/01/2013 Anemia associated with stage 5 chronic renal failure ([facility]) ([facility]) 07/01/2022 Anxiety 10/01/2013 Arteriovenous fistula, acquired ([facility]) 11/21/2022 BENIGN HYP RENAL W KID FAIL 02/11/2005 Cardiomyopathy ([facility]) 07/01/2022 Echo 12/2014 EF 20%. Chronic combined systolic and diastolic CHF (congestive heart failure) ([facility]) 08/18/2015 Seeing cardio in [place] (has pace maker/defibulator) Chronic kidney disease, stage 5 ([facility]) Dialysis M,W,F @ [facility] Chronic obstructive pulmonary disease ([facility]) 08/18/2015 Chronic obstructive pulmonary disease ([facility]) 08/18/[address] Barber ([place]) Congenital solitary kidney pt was born with solitary atrophic kidney Elevated hemoglobin A1c 10/13/2020 End stage renal failure on dialysis ([facility]) 02/12/2017 Essential hypertension 09/10/2013 Gastroesophageal reflux disease without esophagitis 10/23/2016 H/O: endocrine disorder 07/01/2022 Comment on above: HYPERPARATHYROIDISM - DR HERNANDEZ NOTES Hemodialysis patient ([facility]) 03/28/2016 History of cardiac pacemaker in situ 08/31/2015 History of implantable cardiac defibrillator (ICD) 02/03/2015 Hyperkalemia 02/12/2017 Hyperphosphatemia 02/12/2017 Hypertensive heart disease with congestive heart failure ([facility]) 02/12/2017 Hypocalcemia 02/12/2017 Implantable cardioverter-defibrillator (ICD) in situ 02/12/2017 Kidney replaced by transplant 05/27/1997 Kidney transplant failure and rejection 05/12/2013 Kidney transplant rejection 05/12/2013 Left ventricular systolic dysfunction 08/31/2015 Malrotation of colon 07/01/[address]d 07/02/2015 Comment on above: noted on ct abd 07/02/2015 Migraine headache 07/01/2022 Mild episode of recurrent major depressive disorder (HCC) 09/04/2021 Moderate episode of recurrent major depressive disorder (HCC) 10/23/2016 MRSA colonization, nasal 02/28/2014 Nonrheumatic aortic valve stenosis 11/21/2022 Seeing cardio Presence of combination internal cardiac defibrillator (ICD) and pacemaker Psychophysiological insomnia 11/14/2020 Patient needs substance agreement and Tox screening done at appt on 01/10/2021. If cancels or No Shows the Belsomra will be stopped. 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 PAST SURGICAL HISTORY Procedure Laterality Date 2D ECHO (EXEP) 11/02/2020 EF=50%, mod Joshi dysf CHOLECYSTECTOMY INSJ TUNNELED CVC W/O SUBQ PORT/MANAGER TRAINING AND DEVELOPMENT AGE 3 YR/> 01/21/2014 PAST SURGICAL HISTORY OF 05/1997 Renal Transplant, cadaveric PAST SURGICAL HISTORY OF 09/2011 renal transplant PAST SURGICAL HISTORY OF Right cautery right nare for chronic nosebleeds PAST SURGICAL HISTORY OF 01/31/2017 LEFT UPPER ARM AVG ALLERGIES Iodinated Contrast Media, Cyclobenzaprine, Dye, Penicillins, Procardia [Nifedipine], and Tramadol MEDICATIONS predniSONE (DELTASONE) 10 mg tablet Take 4 tabs daily for 3 days, then 2 tabs daily for 3 days, then 1 tab daily for 3 days with food. hydrALAZINE (APRESOLINE) 50 (more content not included)...[facility]12-[facility] History of Present illness Narrative* Soila Maria APRN.MANUFACTURING COORDINATOR - 05/30/2024 11:57 AM EST This note was created using NoteWriter. Subjective Carlitos K Zahra is a 48 year old male. 48 year old male with PMH migraine, CHF, cardiomyopathy, kidney failure ( @ age of 18) and is M-W-F(last treatment Friday) presents for illness. Acute onset 3 days ago + cough +productive +runny nose +sinus pressure Denies fever or chills Denies body aches Denies N/V/D Denies CP Denies dyspnea Used allergy medicine with some relief of sinus pressure Cough worse with laying down and at night +tobacco usage , but endorses he cannot smoke as much related to illness The history is provided by the patient. No medical language specialist was used. URI He complains of cough, shortness of breath, sputum production and wheezing. There is no chest tightness, difficulty breathing, frequent throat clearing, hemoptysis or hoarse voice. This is a new problem. The current episode started in the past 7 days. The problem occurs constantly. The problem has been gradually worsening. The cough is productive of sputum. Associated symptoms include ear congestion, ear pain, headaches, nasal congestion, postnasal drip, rhinorrhea, sneezing and a sore throat. Pertinent negatives include no appetite change, chest pain, dyspnea on exertion, fever, heartburn, malaise/fatigue, myalgias, orthopnea, PND, sweats, trouble swallowing or weight loss. His symptoms are aggravated by nothing. His symptoms are alleviated by nothing. He reports no improvement on treatment. Risk factors for lung disease include smoking/tobacco exposure. There is no history of asthma, bronchiectasis, bronchitis, COPD, emphysema or pneumonia. PAST MEDICAL HISTORY Diagnosis Date Abdominal pain 10/01/2013 Anemia associated with stage 5 chronic renal failure ([facility]) ([facility]) 07/01/2022 Anxiety 10/01/2013 Arteriovenous fistula, acquired ([facility]) 11/21/2022 BENIGN HYP RENAL W KID FAIL 02/11/2005 Cardiomyopathy ([facility]) 07/01/2022 Echo 12/2014 EF 20%. Chronic combined systolic and diastolic CHF (congestive heart failure) ([facility]) 08/18/2015 Seeing cardio in [place] (has pace maker/defibulator) Chronic kidney disease, stage 5 ([facility]) Dialysis M,W,F @ [facility] Chronic obstructive pulmonary disease ([facility]) 08/18/2015 Chronic obstructive pulmonary disease ([facility]) 08/18/[address] Barber ([place]) Congenital solitary kidney pt was born with solitary atrophic kidney Elevated hemoglobin A1c 10/13/2020 End stage renal failure on dialysis ([facility]) 02/12/2017 Essential hypertension 09/10/2013 Gastroesophageal reflux disease without esophagitis 10/23/2016 H/O: endocrine disorder 07/01/2022 Comment on above: HYPERPARATHYROIDISM - DR HERNANDEZ NOTES Hemodialysis patient ([facility]) 03/28/2016 History of cardiac pacemaker in situ 08/31/2015 History of implantable cardiac defibrillator (ICD) 02/03/2015 Hyperkalemia 02/12/2017 Hyperphosphatemia 02/12/2017 Hypertensive heart disease with congestive heart failure ([facility]) 02/12/2017 Hypocalcemia 02/12/2017 Implantable cardioverter-defibrillator (ICD) in situ 02/12/2017 Kidney replaced by transplant 05/27/1997 Kidney transplant failure and rejection 05/12/2013 Kidney transplant rejection 05/12/2013 Left ventricular systolic dysfunction 08/31/2015 Malrotation of colon 07/01/[address]d 07/02/2015 Comment on above: noted on ct abd 07/02/2015 Migraine headache 07/01/2022 Mild episode of recurrent major depressive disorder ([facility]) 09/04/2021 Moderate episode of recurrent major depressive disorder ([facility]) 10/23/2016 MRSA colonization, nasal 02/28/2014 Nonrheumatic aortic valve stenosis 11/21/2022 Seeing cardio Presence of combination internal cardiac defibrillator (ICD) and pacemaker Psychophysiological insomnia 11/14/2020 Patient needs substance agreement and Tox screening done at appt on 01/10/2021. If cancels or No Shows the Belsomra will be stopped. 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 PAST SURGICAL HISTORY Procedure Laterality Date 2D ECHO (EXEP) 11/02/2020 EF=50%, mod Joshi dysf CHOLECYSTECTOMY INSJ TUNNELED CVC W/O SUBQ PORT/MANAGER TRAINING AND DEVELOPMENT AGE 3 YR/> 01/21/2014 PAST SURGICAL HISTORY OF 05/1997 Renal Transplant, cadaveric PAST SURGICAL HISTORY OF 09/2011 renal transplant PAST SURGICAL HISTORY OF Right cautery right nare for chronic nosebleeds PAST SURGICAL HISTORY OF 01/31/2017 LEFT UPPER ARM AVG ALLERGIES Iodinated Contrast Media, Cyclobenzaprine, Dye, Penicillins, Procardia [Nifedipine], and Tramadol MEDICATIONS predniSONE (DELTASONE) 10 mg tablet Take 4 tabs daily for 3 days, then 2 tabs daily for 3 days, then 1 tab daily for 3 days with food. hydrALAZINE (APRESOLINE) 50 mg tablet Take 100 mg by mouth three times a day. aspirin 81 mg chewable tablet 1 tablet by ORAL/FEEDING TUBE route once daily. carvedilol (COREG) 3.125 mg tablet Take 1 tablet by mouth twice daily with meals. Per [facility] sevelamer carbonate (RENVELA) 800 mg tablet Take 1 tablet by mouth three times daily. acetaminophen (TYLENOL) 325 mg tablet Take 2 tablets every 4 hours as needed for pain. doxycycline (VIBRA-TABS) 100 mg tablet Take 1 tablet by mouth two times a day for 10 days. predniSONE (DELTASONE) 10 mg tablet Take 4 tabs daily for 3 days, then 2 tabs daily for 3 days, then 1 tab daily for 3 days with food. atorvastatin (LIPITOR) 40 mg tablet Take 1 tablet by mouth daily at bedtime. FAMILY HISTORY Problem Relation Age of Onset Diabetes Father Heart Father Asthma Brother Heart Brother Diabetes Paternal Uncle Anesthesia Problems No Family History Social History Tobacco Use Smoking status: Every Day Current packs/day: 0.50 Average packs/day: 0.5 packs/day for 29.0 years (14.5 ttl pk-yrs) Types: Cigarettes Smokeless tobacco: Never Tobacco comments: off and on, couple cigarettes per day Vaping Use Vaping status: Never Used Substance Use Topics Alcohol use: No Drug use: No Review of Systems Constitutional: Negative for appetite change, fever, malaise/fatigue and weight loss. HENT: Positive for ear pain, postnasal drip, rhinorrhea, sneezing and sore throat. Negative for hoarse voice and trouble swallowing. Respiratory: Positive for cough, sputum production, shortness of breath and wheezing. Negative for hemoptysis. Cardiovascular: Negative for chest pain, dyspnea on exertion and PND. Gastrointestinal: Negative for heartburn. Musculoskeletal: Negative for myalgias. Neurological: Positive for headaches. Objective BP 109/69 Pulse 95 Temp 37.5 C (99.5 F) (Left Tympanic) Resp 16 Wt 72.6 kg (160 lb 0.9 oz) SpO2 97% BMI 22.32 kg/m Physical Exam Vitals and nursing note reviewed. Constitutional: General: He is not in acute distress. Appearance: Normal appearance. He is not ill-appearing, toxic-appearing or diaphoretic. HENT: Head: Normocephalic and atraumatic. Right Ear: External ear normal. Left Ear: External ear normal. Nose: Nose normal. No congestion or rhinorrhea. Mouth/Throat: Mouth: Mucous membranes are moist. Pharynx: Oropharynx is clear. Posterior oropharyngeal erythema present. No oropharyngeal exudate. Eyes: General: Right eye: No discharge. Left eye: No discharge. Extraocular Movements: Extraocular movements intact. Conjunctiva/sclera: Conjunctivae normal. Pupils: Pupils are equal, round, and reactive to light. Cardiovascular: Rate and Rhythm: Normal rate and regular rhythm. Pulses: Normal pulses. Heart sounds: Normal heart sounds. No murmur heard. No friction rub. No gallop. Pulmonary: Effort: Pulmonary effort is normal. No respiratory distress. Breath sounds: No stridor. Wheezing and rhonchi present. No rales. Comments: Harsh cough noted Chest: Chest wall: No tenderness. Abdominal: General: Abdomen is flat. There is no distension. Palpations: Abdomen is soft. There is no mass. Tenderness: There is no abdominal tenderness. There is no guarding or rebound. Hernia: No hernia is present. Musculoskeletal: General: No swelling, tenderness, deformity or signs of injury. Normal range of motion. Cervical back: Normal range of motion and neck supple. No rigidity or tenderness. Right lower leg: No edema. Left lower leg: No edema. Lymphadenopathy: Cervical: Cervical adenopathy present. Skin: General: Skin is warm and dry. Capillary Refill: Capillary refill takes less than 2 seconds. Coloration: Skin is not jaundiced or pale. Findings: No bruising, lesion or rash. Neurological: General: No focal deficit present. Mental Status: He is alert and oriented to person, place, and time. Cranial Nerves: No cranial nerve deficit. Sensory: No sensory deficit. Motor: No weakness. Coordination: Coordination normal. Gait: Gait normal. Deep Tendon Reflexes: Reflexes normal. Psychiatric: Mood and Affect: Mood normal. Behavior: Behavior normal. Thought Content: Thought content normal. Assessment and Plan ASSESSMENT/PLAN: 1. Acute cough - ICD9: 786.2, ICD10: R05.1 (primary diagnosis) X 3 days No xray available at time of exam - DOXYCYCLINE HYCLATE 100 MG TABLET Prednisone taper 2. Asthma with COPD with exacerbation (HCC) - ICD9: 493.22, ICD10: J44.1 - Cough variant asthma - Factors affecting control of asthma include upper respiratory infection and tobacco smoke - Continue current medications - Albuterol 2 puffs with spacer beginning with URI's TID x 5 days then prn, Instructed if using >2 times per week when well to set up appointment for further evaluation - Avoidance of triggers recommended - Asthma Action Plan reviewed - Follow up in 2 day, sooner should any other issues arise. Soila Maria APRN.MANUFACTURING COORDINATOR documented in [facility]24 NoteHNO ID: [id number] Author: SOILA MARIA APRN.MANUFACTURING COORDINATOR Service: ? Author Type: Nurse Practitioner Type: Progress Notes Filed: 04/13/2024 15:07 Note Text: This note was created using HazelMail. Subjective Carlitos Sweeney is a 48 year old male. 48 year old male with extensive PMH which includes cardiomyopathy, HFrEF status post AICD, congenital solitary kidney, COPD, HTN, GERD, ESRD s/p renal transplant now on HD MWF via RUE fistula presents for illness. Acute onset 4 days ago + sinus pressure + cough +productive, increasing sputum Increased SOB Denies dyspnea Denies hemoptysis Denies CP Current tobacco smoker Girlfriend here for same. Patient endorses he was able to complete all of his dialysis yesterday. The history is provided by the patient. No medical language specialist was used. Cough This is a new problem. The current episode started more than 2 days ago. The problem occurs constantly. The problem has been gradually worsening. The cough is Productive of sputum. There has been no fever. Associated symptoms include shortness of breath and wheezing. Pertinent negatives include no chest pain, no chills, no sweats, no weight loss, no ear congestion, no ear pain, no headaches, no rhinorrhea, no sore throat, no myalgias and no eye redness. He has tried nothing for the symptoms. The treatment provided no relief. He is a smoker. His past medical history is significant for bronchitis and COPD. His past medical history does not include pneumonia, bronchiectasis, emphysema or asthma. PAST MEDICAL HISTORY Diagnosis Date Abdominal pain 10/01/2013 Anemia associated with stage 5 chronic renal failure ([facility]) ([facility]) 07/01/2022 Anxiety 10/01/2013 Arteriovenous fistula, acquired ([facility]) 11/21/2022 BENIGN HYP RENAL W KID FAIL 02/11/2005 Cardiomyopathy ([facility]) 07/01/2022 Echo 12/2014 EF 20%. Chronic combined systolic and diastolic CHF (congestive heart failure) ([facility]) 08/18/2015 Seeing cardio in [place] (has pace maker/defibulator) Chronic kidney disease, stage 5 ([facility]) Dialysis M,W,F @ [facility] Chronic obstructive pulmonary disease ([facility]) 08/18/2015 Chronic obstructive pulmonary disease ([facility]) 08/18/[address] Barber ([place]) Congenital solitary kidney pt was born with solitary atrophic kidney Elevated hemoglobin A1c 10/13/2020 End stage renal failure on dialysis ([facility]) 02/12/2017 Essential hypertension 09/10/2013 Gastroesophageal reflux disease without esophagitis 10/23/2016 H/O: endocrine disorder 07/01/2022 Comment on above: HYPERPARATHYROIDISM - DR HERNANDEZ NOTES Hemodialysis patient ([facility]) 03/28/2016 History of cardiac pacemaker in situ 08/31/2015 History of implantable cardiac defibrillator (ICD) 02/03/2015 Hyperkalemia 02/12/2017 Hyperphosphatemia 02/12/2017 Hypertensive heart disease with congestive heart failure ([facility]) 02/12/2017 Hypocalcemia 02/12/2017 Implantable cardioverter-defibrillator (ICD) in situ 02/12/2017 Kidney replaced by transplant 05/27/1997 Kidney transplant failure and rejection 05/12/2013 Kidney transplant rejection 05/12/2013 Left ventricular systolic dysfunction 08/31/2015 Malrotation of colon 07/01/[address]d 07/02/2015 Comment on above: noted on ct abd 07/02/2015 Migraine headache 07/01/2022 Mild episode of recurrent major depressive disorder (HCC) 09/04/2021 Moderate episode of recurrent major depressive disorder ([facility]) 10/23/2016 MRSA colonization, nasal 02/28/2014 Nonrheumatic aortic valve stenosis 11/21/2022 Seeing cardio Presence of combination internal cardiac defibrillator (ICD) and pacemaker Psychophysiological insomnia 11/14/2020 Patient needs substance agreement and Tox screening done at appt on 01/10/2021. If cancels or No Shows the Belsomra will be stopped. 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 PAST SURGICAL HISTORY Procedure Laterality Date 2D ECHO (EXEP) 11/02/2020 EF=50%, mod Joshi dysf CHOLECYSTECTOMY INSJ TUNNELED CVC W/O SUBQ PORT/MANAGER TRAINING AND DEVELOPMENT AGE 3 YR/> 01/21/2014 PAST SURGICAL HISTORY OF 05/1997 Renal Transplant, cadaveric PAST SURGICAL HISTORY OF 09/2011 renal transplant PAST SURGICAL HISTORY OF Right cautery right nare for chronic nosebleeds PAST SURGICAL HISTORY OF 01/31/2017 LEFT UPPER ARM AVG ALLERGIES Iodinated Contrast Media, Cyclobenzaprine, Dye, Penicillins, Procardia [Nifedipine], and Tramadol MEDICATIONS hydrALAZINE (APRESOLINE) 50 mg tablet Take 100 mg by mouth three times a day. atorvastatin (LIPITOR) 40 mg tablet Take 1 tablet by mouth daily at bedtime. aspirin 81 mg chewable tablet 1 tablet by ORAL/FEEDING TUBE route once daily. carvedilol (COREG) 3.125 mg tablet Take 1 tablet by mouth twice daily with meals. Per [facility] sevelamer carbonate (RENVELA) 800 mg tablet Take 1 tablet by mouth three time (more content not included)...[facility]10-22-2024 History of Present illness Narrative* Soila Maria, DARION.MANUFACTURING COORDINATOR - 04/13/2024 2:44 PM EDT This note was created using NoteWriter. Subjective Carlitos Katherine Sweeney is a 48 year old male. 48 year old male with extensive PMH which includes cardiomyopathy, HFrEF status post AICD, congenital solitary kidney, COPD, HTN, GERD, ESRD s/p renal transplant now on HD MWF via RUE fistula presents for illness. Acute onset 4 days ago + sinus pressure + cough +productive, increasing sputum Increased SOB Denies dyspnea Denies hemoptysis Denies CP Current tobacco smoker Girlfriend here for same. Patient endorses he was able to complete all of his dialysis yesterday. The history is provided by the patient. No medical language specialist was used. Cough This is a new problem. The current episode started more than 2 days ago. The problem occurs constantly. The problem has been gradually worsening. The cough is Productive of sputum. There has been no fever. Associated symptoms include shortness of breath and wheezing. Pertinent negatives include no chest pain, no chills, no sweats, no weight loss, no ear congestion, no ear pain, no headaches, no rhinorrhea, no sore throat, no myalgias and no eye redness. He has tried nothing for the symptoms. The treatment provided no relief. He is a smoker. His past medical history is significant for bronchitis and COPD. His past medical history does not include pneumonia, bronchiectasis, emphysema or asthma. PAST MEDICAL HISTORY Diagnosis Date Abdominal pain 10/01/2013 Anemia associated with stage 5 chronic renal failure ([facility]) ([facility]) 07/01/2022 Anxiety 10/01/2013 Arteriovenous fistula, acquired ([facility]) 11/21/2022 BENIGN HYP RENAL W KID FAIL 02/11/2005 Cardiomyopathy ([facility]) 07/01/2022 Echo 12/2014 EF 20%. Chronic combined systolic and diastolic CHF (congestive heart failure) ([facility]) 08/18/2015 Seeing cardio in [place] (has pace maker/defibulator) Chronic kidney disease, stage 5 ([facility]) Dialysis M,W,F @ [facility] Chronic obstructive pulmonary disease ([facility]) 08/18/2015 Chronic obstructive pulmonary disease ([facility]) 08/18/[address] Barber ([place]) Congenital solitary kidney pt was born with solitary atrophic kidney Elevated hemoglobin A1c 10/13/2020 End stage renal failure on dialysis ([facility]) 02/12/2017 Essential hypertension 09/10/2013 Gastroesophageal reflux disease without esophagitis 10/23/2016 H/O: endocrine disorder 07/01/2022 Comment on above: HYPERPARATHYROIDISM - DR HERNANDEZ NOTES Hemodialysis patient ([facility]) 03/28/2016 History of cardiac pacemaker in situ 08/31/2015 History of implantable cardiac defibrillator (ICD) 02/03/2015 Hyperkalemia 02/12/2017 Hyperphosphatemia 02/12/2017 Hypertensive heart disease with congestive heart failure (HCC) 02/12/2017 Hypocalcemia 02/12/2017 Implantable cardioverter-defibrillator (ICD) in situ 02/12/2017 Kidney replaced by transplant 05/27/1997 Kidney transplant failure and rejection 05/12/2013 Kidney transplant rejection 05/12/2013 Left ventricular systolic dysfunction 08/31/2015 Malrotation of colon 07/01/[address]d 07/02/2015 Comment on above: noted on ct abd 07/02/2015 Migraine headache 07/01/2022 Mild episode of recurrent major depressive disorder (HCC) 09/04/2021 Moderate episode of recurrent major depressive disorder (HCC) 10/23/2016 MRSA colonization, nasal 02/28/2014 Nonrheumatic aortic valve stenosis 11/21/2022 Seeing cardio Presence of combination internal cardiac defibrillator (ICD) and pacemaker Psychophysiological insomnia 11/14/2020 Patient needs substance agreement and Tox screening done at appt on 01/10/2021. If cancels or No Shows the Belsomra will be stopped. 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 PAST SURGICAL HISTORY Procedure Laterality Date 2D ECHO (EXEP) 11/02/2020 EF=50%, mod Joshi dysf CHOLECYSTECTOMY INSJ TUNNELED CVC W/O SUBQ PORT/MANAGER TRAINING AND DEVELOPMENT AGE 3 YR/> 01/21/2014 PAST SURGICAL HISTORY OF 05/1997 Renal Transplant, cadaveric PAST SURGICAL HISTORY OF 09/2011 renal transplant PAST SURGICAL HISTORY OF Right cautery right nare for chronic nosebleeds PAST SURGICAL HISTORY OF 01/31/2017 LEFT UPPER ARM AVG ALLERGIES Iodinated Contrast Media, Cyclobenzaprine, Dye, Penicillins, Procardia [Nifedipine], and Tramadol MEDICATIONS hydrALAZINE (APRESOLINE) 50 mg tablet Take 100 mg by mouth three times a day. atorvastatin (LIPITOR) 40 mg tablet Take 1 tablet by mouth daily at bedtime. aspirin 81 mg chewable tablet 1 tablet by ORAL/FEEDING TUBE route once daily. carvedilol (COREG) 3.125 mg tablet Take 1 tablet by mouth twice daily with meals. Per [facility] sevelamer carbonate (RENVELA) 800 mg tablet Take 1 tablet by mouth three times daily. acetaminophen (TYLENOL) 325 mg tablet Take 2 tablets every 4 hours as needed for pain. predniSONE (DELTASONE) 10 mg tablet Take 4 tabs daily for 3 days, then 2 tabs daily for 3 days, then 1 tab daily for 3 days with food. doxycycline (VIBRA-TABS) 100 mg tablet Take 1 tablet by mouth two times a day for 7 days. FAMILY HISTORY Problem Relation Age of Onset Diabetes Father Heart Father Asthma Brother Heart Brother Diabetes Paternal Uncle Anesthesia Problems No Family History Social History Tobacco Use Smoking status: Every Day Current packs/day: 0.50 Average packs/day: 0.5 packs/day for 29.0 years (14.5 ttl pk-yrs) Types: Cigarettes Smokeless tobacco: Never Tobacco comments: off and on, couple cigarettes per day Vaping Use Vaping status: Never Used Substance Use Topics Alcohol use: No Drug use: No Review of Systems Constitutional: Negative for chills, diaphoresis, fatigue and weight loss. HENT: Positive for congestion, sinus pressure and sinus pain. Negative for ear pain, rhinorrhea andsore throat. Eyes: Negative for discharge, redness and itching. Respiratory: Positive for cough, shortness of breath and wheezing. Negative for apnea, choking and chest tightness. Cardiovascular: Negative for chest pain. Gastrointestinal: Negative for abdominal pain, diarrhea, nausea and vomiting. Musculoskeletal: Negative for back pain and myalgias. Skin: Negative for color change, pallor, rash and wound. Allergic/Immunologic: Positive for environmental allergies and food allergies. Negative for immunocompromised state. Neurological: Negative for dizziness, facial asymmetry and headaches. Hematological: Positive for adenopathy. Does not bruise/bleed easily. Psychiatric/Behavioral: Negative for agitation and behavioral problems. Objective BP 159/77 Pulse 83 Temp 36.5 C (97.7 F) Resp 18 Wt 76 kg (167 lb 8.8 oz) SpO2 98% BMI 23.37 kg/m Physical Exam Vitals and nursing note reviewed. Constitutional: General: He is not in acute distress. Appearance: Normal appearance. He is not ill-appearing, toxic-appearing or diaphoretic. Comments: Appears older than stated age. HENT: Head: Normocephalic and atraumatic. Right Ear: External ear normal. Left Ear: External ear normal. Nose: Congestion present. No rhinorrhea. Mouth/Throat: Mouth: Mucous membranes are moist. Pharynx: Oropharynx is clear. Posterior oropharyngeal erythema present. No oropharyngeal exudate. Eyes: General: Right eye: No discharge. Left eye: No discharge. Extraocular Movements: Extraocular movements intact. Conjunctiva/sclera: Conjunctivae normal. Pupils: Pupils are equal, round, and reactive to light. Cardiovascular: Rate and Rhythm: Normal rate and regular rhythm. Pulses: Normal pulses. Heart sounds: Normal heart sounds. No murmur heard. No friction rub. No gallop. Pulmonary: Effort: Pulmonary effort is normal. No respiratory distress. Breath sounds: No stridor. Rhonchi present. No wheezing or rales. Chest: Chest wall: No tenderness. Abdominal: General: Abdomen is flat. There is no distension. Palpations: Abdomen is soft. There is no mass. Tenderness: There is no abdominal tenderness. There is no guarding or rebound. Hernia: No hernia is present. Musculoskeletal: General: No swelling, tenderness, deformity or signs of injury. Normal range of motion. Cervical back: Normal range of motion and neck supple. No rigidity or tenderness. Right lower leg: No edema. Left lower leg: No edema. Lymphadenopathy: Cervical: Cervical adenopathy present. Skin: General: Skin is warm and dry. Capillary Refill: Capillary refill takes less than 2 seconds. Coloration: Skin is not jaundiced or pale. Findings: No bruising, lesion or rash. Neurological: General: No focal deficit present. Mental Status: He is alert and oriented to person, place, and time. Cranial Nerves: No cranial nerve deficit. Sensory: No sensory deficit. Motor: No weakness. Coordination: Coordination normal. Gait: Gait normal. Deep Tendon Reflexes: Reflexes normal. Psychiatric: Mood and Affect: Mood normal. Behavior: Behavior normal. Thought Content: Thought content normal. Assessment and Plan ASSESSMENT/PLAN: 1. COPD with exacerbation (HCC) - ICD9: 491.21, ICD10: J44.1 X 3 days Progressively worsening Increased sputum Increased coughing and SOB No red flags RX Doxy RX Prednisone taper Discussed red flags Soila Maria APRN.MANUFACTURING COORDINATOR documented [facility] History of Present illness Narrative* Christian Foss RT(R) - 04/01/2024 2:50 PM EDT Radiology Service Progress Note PATIENT NAME: Carlitos Sweeney DATE OF SERVICE: April 01, 2024 TIME: 2:53 PM PATIENT IDENTITY VERIFICATION COMPLETED USING TWO (2) IDENTIFIERS: Name and Date of confirmedby patient verbally. FALL SCREENING: Has the patient had 2 falls in the last year or 1 fall with injury or currently using an Ambulatory Assistive Device (Walker, Cane, Wheelchair, Crutches, etc.)? No PATIENT GENDER DATA: Male PATIENT RELEVANT IMPLANT DATA REVIEWED: Not Applicable PATIENT PRESENTS WITH AN IMPLANTABLE OR ATTACHED EARTH SCIENCES PROFESSOR: No RADIOLOGY DEPARTMENT: General X-ray: Exam(s) Completed: Spine X-Ray(s): Lumbar AP / LAT / L5-S1 PERIPHERAL IV DATA: Not applicable SIGNED BY: DMITRIY Charlton) April 01, 2024 2:53 PM documented in this encounterMer[facility]10[facility]-2024 NoteHNO ID: [id number] Author: CHRISTIAN FOSS RT(R) Service: ? Author Type: Technologist Type: Progress Notes Filed: 04/01/2024 14:58 Note Text: Radiology Service Progress Note PATIENT NAME: Carlitos Sweeney DATE OF SERVICE: April 01, 2024 TIME: 2:53 PM PATIENT IDENTITY VERIFICATION COMPLETED USING TWO (2) IDENTIFIERS: Name and Date of confirmed by patient verbally. FALL SCREENING: Has the patient had 2 falls in the last year or 1 fall with injury or currently using an Ambulatory Assistive Device (Walker, Cane, Wheelchair, Crutches, etc.)? No PATIENT GENDER DATA: Male PATIENT RELEVANT IMPLANT DATA REVIEWED: Not Applicable PATIENT PRESENTS WITH AN IMPLANTABLE OR ATTACHED EARTH SCIENCES PROFESSOR: No RADIOLOGY DEPARTMENT: General X-ray: Exam(s) Completed: Spine X-Ray(s): Lumbar AP / LAT / L5-S1 PERIPHERAL IV DATA: Not applicable SIGNED BY: Christian Foss, RT(R) April 01, 2024 2:53 [facility]10-10-2024 NoteHNO ID: [id number] Author: CHRISTAL LIMA PA Service: ? Author Type: Physician Social And Human Services Assistant Type: Progress Notes Filed: 04/01/2024 15:26 Note Text: This note was created using Swankriter. Subjective Carlitos Sweeney is a 48 year old male. Relevant PMH and allergies reviewed: HTN, CHF, ESRD current dialysis patient, smoker, chronic lower back pain Pt is a 48 year old male who presents today with lower back pain x5 days. Pt states he has a history of lower back pain after falling off of a ladder 10-15 years ago but this is the worse his pain has ever been. Pt states this week his lower back pain has been progressively worsening throughout the week. He does not remember any particular injury to his back this week. He denies any new numbness or tingling in the extremities, radiating pain or loss of bowel/bladder. Pt states pain worsens when he tries to get up from laying down, sitting too long or bends over. He was using a back brace to help with the pain, but whenever the brace was off the pain was very intense. Pt states since he is a dialysis patient he is limited on the medication he can use and has to use tylenol for most problem, but the tylenol has not been helping to decrease the lower back pain this week. Pt states he has tried heat and lidocaine patches in the past without any significant relief. He has also tried going to the chiropractor without any lasting relief. Pt denies any fever, chills, nausea, vomiting, abdominal pain, chest pain, shortness of breath, fatigue, weakness and headaches. The history is provided by the patient. No medical language specialist was used. Back Pain This is a chronic problem. The current episode started more than 2 days ago. The problem occurs constantly. The problem has been gradually worsening. The pain is associated with falling. The pain is present in the lumbar spine. The quality of the pain is described as aching. The pain does not radiate. The pain is severe. The symptoms are aggravated by bending and certain positions. The pain is The same all the time. Stiffness is present In the morning. Pertinent negatives include no chest pain, no fever, no numbness, no headaches, no abdominal pain, no bowel incontinence, no bladder incontinence, no dysuria, no tingling and no weakness. He has tried NSAIDs for the symptoms. The treatment provided no relief. PAST MEDICAL HISTORY Diagnosis Date Abdominal pain 10/01/2013 Anemia associated with stage 5 chronic renal failure ([facility]) ([facility]) 07/01/2022 Anxiety 10/01/2013 Arteriovenous fistula, acquired ([facility]) 11/21/2022 BENIGN HYP RENAL W KID FAIL 02/11/2005 Cardiomyopathy ([facility]) 07/01/2022 Echo 12/2014 EF 20%. Chronic combined systolic and diastolic CHF (congestive heart failure) ([facility]) 08/18/2015 Seeing cardio in [place] (has pace maker/defibulator) Chronic kidney disease, stage 5 ([facility]) Dialysis M,W,F @ [facility] Chronic obstructive pulmonary disease ([facility]) 08/18/2015 Chronic obstructive pulmonary disease ([facility]) 08/18/[address] Barber ([place]) Congenital solitary kidney pt was born with solitary atrophic kidney Elevated hemoglobin A1c 10/13/2020 End stage renal failure on dialysis ([facility]) 02/12/2017 Essential hypertension 09/10/2013 Gastroesophageal reflux disease without esophagitis 10/23/2016 H/O: endocrine disorder 07/01/2022 Comment on above: HYPERPARATHYROIDISM - DR HERNANDEZ NOTES Hemodialysis patient ([facility]) 03/28/2016 History of cardiac pacemaker in situ 08/31/2015 History of implantable cardiac defibrillator (ICD) 02/03/2015 Hyperkalemia 02/12/2017 Hyperphosphatemia 02/12/2017 Hypertensive heart disease with congestive heart failure ([facility]) 02/12/2017 Hypocalcemia 02/12/2017 Implantable cardioverter-defibrillator (ICD) in situ 02/12/2017 Kidney replaced by transplant 05/27/1997 Kidney transplant failure and rejection 05/12/2013 Kidney transplant rejection 05/12/2013 Left ventricular systolic dysfunction 08/31/2015 Malrotation of colon 07/01/[address]d 07/02/2015 Comment on above: noted on ct abd 07/02/2015 Migraine headache 07/01/2022 Mild episode of recurrent major depressive disorder ([facility]) 09/04/2021 Moderate episode of recurrent major depressive disorder ([facility]) 10/23/2016 MRSA colonization, nasal 02/28/2014 Nonrheumatic aortic valve stenosis 11/21/2022 Seeing cardio Presence of combination internal cardiac defibrillator (ICD) and pacemaker Psychophysiological insomnia 11/14/2020 Patient needs substance agreement and Tox screening done at appt on 01/10/2021. If cancels or No Shows the Belsomra will be stopped. 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 PAST SURGICAL HISTORY Procedure Laterality Date 2D ECHO (EXEP) 11/02/2020 EF=50%, mod Joshi dysf CHOLECYSTECTOMY INSJ TUNNELED CVC W/O SUBQ (more content not included)...[facility]10-[facility] History of Present illness Narrative* Christal Lima PA - 04/01/2024 2:49 PM EDT Images from the original note were not included. This note was created using HazelMail. Subjective Carlitos Sweeney is a 48 year old male. Relevant PMH and allergies reviewed: HTN, CHF, ESRD current dialysis patient, smoker, chronic lowerback pain Pt is a 48 year old male who presents today with lower back pain x5 days. Pt states he has a history of lower back pain after falling off of a ladder 10-15 years ago but this is the worse his pain has ever been. Pt states this week his lower back pain has been progressively worsening throughout theweek. He does not remember any particular injury to his back this week. He denies any new numbness or tingling in the extremities, radiating pain or loss of bowel/bladder. Pt states pain worsens whenhe tries to get up from laying down, sitting too long or bends over. He was using a back brace to help with the pain, but whenever the brace was off the pain was very intense. Pt states since he is adialysis patient he is limited on the medication he can use and has to use tylenol for most problem, but the tylenol has not been helping to decrease the lower back pain this week. Pt states he has tried heat and lidocaine patches in the past without any significant relief. He has also tried going to the chiropractor without any lasting relief. Pt denies any fever, chills, nausea, vomiting, abdominal pain, chest pain, shortness of breath, fatigue, weakness and headaches. The history is provided by the patient. No medical language specialist was used. Back Pain This is a chronic problem. The current episode started more than 2 days ago. The problem occurs constantly. The problem has been gradually worsening. The pain is associated with falling. The pain is present in the lumbar spine. The quality of the pain is described as aching. The pain does not radiate. The pain is severe. The symptoms are aggravated by bending and certain positions. The pain is The same all the time. Stiffness is present In the morning. Pertinent negatives include no chest pain,no fever, no numbness, no headaches, no abdominal pain, no bowel incontinence, no bladder incontinence, no dysuria, no tingling and no weakness. He has tried NSAIDs for the symptoms. The treatment provided no relief. PAST MEDICAL HISTORY Diagnosis Date Abdominal pain 10/01/2013 Anemia associated with stage 5 chronic renal failure ([facility]) ([facility]) 07/01/2022 Anxiety 10/01/2013 Arteriovenous fistula, acquired ([facility]) 11/21/2022 BENIGN HYP RENAL W KID FAIL 02/11/2005 Cardiomyopathy ([facility]) 07/01/2022 Echo 12/2014 EF 20%. Chronic combined systolic and diastolic CHF (congestive heart failure) ([facility]) 08/18/2015 Seeing cardio in [place] (has pace maker/defibulator) Chronic kidney disease, stage 5 ([facility]) Dialysis M,W,F @ [facility] Chronic obstructive pulmonary disease ([facility]) 08/18/2015 Chronic obstructive pulmonary disease ([facility]) 08/18/[address] Barber ([place]) Congenital solitary kidney pt was born with solitary atrophic kidney Elevated hemoglobin A1c 10/13/2020 End stage renal failure on dialysis ([facility]) 02/12/2017 Essential hypertension 09/10/2013 Gastroesophageal reflux disease without esophagitis 10/23/2016 H/O: endocrine disorder 07/01/2022 Comment on above: HYPERPARATHYROIDISM - DR HERNANDEZ NOTES Hemodialysis patient ([facility]) 03/28/2016 History of cardiac pacemaker in situ 08/31/2015 History of implantable cardiac defibrillator (ICD) 02/03/2015 Hyperkalemia 02/12/2017 Hyperphosphatemia 02/12/2017 Hypertensive heart disease with congestive heart failure (HCC) 02/12/2017 Hypocalcemia 02/12/2017 Implantable cardioverter-defibrillator (ICD) in situ 02/12/2017 Kidney replaced by transplant 05/27/1997 Kidney transplant failure and rejection 05/12/2013 Kidney transplant rejection 05/12/2013 Left ventricular systolic dysfunction 08/31/2015 Malrotation of colon 07/01/[address]d 07/02/2015 Comment on above: noted on ct abd 07/02/2015 Migraine headache 07/01/2022 Mild episode of recurrent major depressive disorder (HCC) 09/04/2021 Moderate episode of recurrent major depressive disorder (HCC) 10/23/2016 MRSA colonization, nasal 02/28/2014 Nonrheumatic aortic valve stenosis 11/21/2022 Seeing cardio Presence of combination internal cardiac defibrillator (ICD) and pacemaker Psychophysiological insomnia 11/14/2020 Patient needs substance agreement and Tox screening done at appt on 01/10/2021. If cancels or No Shows the Belsomra will be stopped. 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 PAST SURGICAL HISTORY Procedure Laterality Date 2D ECHO (EXEP) 11/02/2020 EF=50%, mod Joshi dysf CHOLECYSTECTOMY INSJ TUNNELED CVC W/O SUBQ PORT/MANAGER TRAINING AND DEVELOPMENT AGE 3 YR/> 01/21/2014 PAST SURGICAL HISTORY OF 05/1997 Renal Transplant, cadaveric PAST SURGICAL HISTORY OF 09/2011 renal transplant PAST SURGICAL HISTORY OF Right cautery right nare for chronic nosebleeds PAST SURGICAL HISTORY OF 01/31/2017 LEFT UPPER ARM AVG ALLERGIES Iodinated Contrast Media, Cyclobenzaprine, Dye, Penicillins, Procardia [Nifedipine], and Tramadol MEDICATIONS hydrALAZINE (APRESOLINE) 50 mg tablet Take 1 tablet by mouth every 12 hours. aspirin 81 mg chewable tablet 1 tablet by ORAL/FEEDING TUBE route once daily. carvedilol (COREG) 3.125 mg tablet Take 1 tablet by mouth twice daily with meals. Per [facility] sevelamer carbonate (RENVELA) 800 mg tablet Take 1 tablet by mouth three times daily. acetaminophen (TYLENOL) 325 mg tablet Take 2 tablets every 4 hours as needed for pain. atorvastatin (LIPITOR) 40 mg tablet Take 1 tablet by mouth daily at bedtime. FAMILY HISTORY Problem Relation Age of Onset Diabetes Father Heart Father Asthma Brother Heart Brother Diabetes Paternal Uncle Anesthesia Problems No Family History Social History Tobacco Use Smoking status: Every Day Current packs/day: 0.50 Average packs/day: 0.5 packs/day for 29.0 years (14.5 ttl pk-yrs) Types: Cigarettes Smokeless tobacco: Never Tobacco comments: off and on, couple cigarettes per day Vaping Use Vaping status: Never Used Substance Use Topics Alcohol use: No Drug use: No Review of Systems Constitutional: Positive for activity change. Negative for appetite change, chills, fatigue and fever. Respiratory: Negative for cough and shortness of breath. Cardiovascular: Negative for chest pain and palpitations. Gastrointestinal: Negative for abdominal pain, bowel incontinence, constipation, diarrhea, nausea and vomiting. Genitourinary: Negative for bladder incontinence and dysuria. Musculoskeletal: Positive for back pain. Negative for neck pain and neck stiffness. Skin: Negative for rash. Allergic/Immunologic: Negative for environmental allergies and food allergies. Neurological: Negative for dizziness, tingling, syncope, weakness, numbness and headaches. Objective BP 140/80 Pulse 93 Temp 36.7 C (98 F) Resp 18 Wt 76 kg (167 lb 8.8 oz) SpO2 98% BMI 23.37 kg/m Physical Exam Vitals and nursing note reviewed. Constitutional: General: He is not in acute distress. Appearance: Normal appearance. He is not ill-appearing. HENT: Head: Normocephalic and atraumatic. Eyes: Extraocular Movements: Extraocular movements intact. Pupils: Pupils are equal, round, and reactive to light. Cardiovascular: Rate and Rhythm: Normal rate and regular rhythm. Pulses: Normal pulses. Heart sounds: Normal heart sounds. Pulmonary: Effort: Pulmonary effort is normal. No respiratory distress. Breath sounds: Normal breath sounds. No wheezing or rhonchi. Abdominal: Palpations: Abdomen is soft. Tenderness: There is no abdominal tenderness. There is no right CVA tenderness, left CVA tendernessor guarding. Musculoskeletal: Cervical back: Normal range of motion and neck supple. No rigidity or tenderness. Lumbar back: Tenderness and bony tenderness present. No signs of trauma. Decreased range of motion.Negative right straight leg raise test and negative left straight leg raise test. Back: Comments: Lumbar back pain with bony tenderness present -negative straight leg raise bilaterally -no known trauma within past 5 days -Pain with forward bending -No numbness or tingling in lower extremities noted -No cervical tenderness Skin: General: Skin is warm. Capillary Refill: Capillary refill takes less than 2 seconds. Neurological: Mental Status: He is alert. Psychiatric: Mood and Affect: Mood normal. Behavior: Behavior normal. Assessment and Plan ASSESSMENT/PLAN: 1. Lumbar pain - ICD9: 724.2, ICD10: M54.50 -lower back pain x5 days -chronic lower back pain with injury 10-15 years ago -Bony tenderness of lower lumbar region on PE - XR LUMBAR GENERAL 3V AP/LAT/L5-S1 -No acute fracture or facet subluxation. Mild dextroscoliosis of the lumbar spine. Intervertebral disc spaces are maintained. Sacroiliac joints appear normal. -See Rx -Advised follow up with PCP if symptoms persist or worsen Amalia Graf Student TEACHING PROVIDER (Physician/PA/PERFORMANCE INSTRUCTOR) NOTE OF PERSONAL INVOLVEMENT IN CARE: I have personally seen and examined the patient and performed the medical decision-making components. I have reviewed the Advanced Practice Registered Nurse (PERFORMANCE INSTRUCTOR) Student's documentation and verified the findings in the note as written. Any additions or changes are noted in bold/italics. Signature: Christal Lima Date: 04/01/2024 Time: 3:24 PM documented in this encounterMer[facility]24 History of Present illness Narrative* Gio Velarde MD - 11/12/2023 10:42 AM EDT Images from the original note were not included. [facility] DEPARTMENT OF VASCULAR SURGERY OUTPATIENT VISIT DATE November 12, 2023 OUTPATIENT VISIT TYPE ESTABLISHED SERVICE DATE: 11/12/2023 SERVICE TIME: 10:42 AM PRIMARY CARE PHYSICIAN: Monie Alston DO HISTORY OF PRESENT ILLNESS: Mr. Sweeney is a 48 year old male who presents today for a vascular surgeryfollow-up visit 6 seen today. Doing well right hand ulcers have healed. On examination has a strong thrill within the fistula palpable pulses within the bypass graft. PAST MEDICAL HISTORY Diagnosis Date Abdominal pain 10/01/2013 Anemia associated with stage 5 chronic renal failure ([facility]) ([facility]) 07/01/2022 Anxiety 10/01/2013 Arteriovenous fistula, acquired ([facility]) 11/21/2022 BENIGN HYP RENAL W KID FAIL 02/11/2005 Cardiomyopathy ([facility]) 07/01/2022 Echo 12/2014 EF 20%. Chronic combined systolic and diastolic CHF (congestive heart failure) ([facility]) 08/18/2015 Seeing cardio in [place] (has pace maker/defibulator) Chronic kidney disease, stage 5 ([facility]) Dialysis M,W,F @ [facility] Chronic obstructive pulmonary disease ([facility]) 08/18/2015 Chronic obstructive pulmonary disease ([facility]) 08/18/[address] Barber ([place]) Congenital solitary kidney pt was born with solitary atrophic kidney Elevated hemoglobin A1c 10/13/2020 End stage renal failure on dialysis ([facility]) 02/12/2017 Essential hypertension 09/10/2013 Gastroesophageal reflux disease without esophagitis 10/23/2016 H/O: endocrine disorder 07/01/2022 Comment on above: HYPERPARATHYROIDISM - DR HERNANDEZ NOTES Hemodialysis patient ([facility]) 03/28/2016 History of cardiac pacemaker in situ 08/31/2015 History of implantable cardiac defibrillator (ICD) 02/03/2015 Hyperkalemia 02/12/2017 Hyperphosphatemia 02/12/2017 Hypertensive heart disease with congestive heart failure ([facility]) 02/12/2017 Hypocalcemia 02/12/2017 Implantable cardioverter-defibrillator (ICD) in situ 02/12/2017 Kidney replaced by transplant 05/27/1997 Kidney transplant failure and rejection 05/12/2013 Kidney transplant rejection 05/12/2013 Left ventricular systolic dysfunction 08/31/2015 Malrotation of colon 07/01/[address]d 07/02/2015 Comment on above: noted on ct abd 07/02/2015 Migraine headache 07/01/2022 Mild episode of recurrent major depressive disorder (HCC) 09/04/2021 Moderate episode of recurrent major depressive disorder ([facility]) 10/23/2016 MRSA colonization, nasal 02/28/2014 Nonrheumatic aortic valve stenosis 11/21/2022 Seeing cardio Presence of combination internal cardiac defibrillator (ICD) and pacemaker Psychophysiological insomnia 11/14/2020 Patient needs substance agreement and Tox screening done at appt on 01/10/2021. If cancels or No Shows the Belsomra will be stopped. 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 PAST SURGICAL HISTORY Procedure Laterality Date 2D ECHO (EXEP) 11/02/2020 EF=50%, mod Joshi dysf CHOLECYSTECTOMY INSJ TUNNELED CVC W/O SUBQ PORT/MANAGER TRAINING AND DEVELOPMENT AGE 3 YR/> 01/21/2014 PAST SURGICAL HISTORY OF 05/1997 Renal Transplant, cadaveric PAST SURGICAL HISTORY OF 09/2011 renal transplant PAST SURGICAL HISTORY OF Right cautery right nare for chronic nosebleeds PAST SURGICAL HISTORY OF 01/31/2017 LEFT UPPER ARM AVG SOCIAL HISTORY Social History Tobacco Use Smoking status: Every Day Packs/day: 0.50 Years: 29.00 Additional pack years: 0.00 Total pack years: 14.50 Types: Cigarettes Smokeless tobacco: Never Tobacco comments: off and on, couple cigarettes per day Vaping Use Vaping Use: Never used Substance Use Topics Alcohol use: No Drug use: No MEDICATIONS: atorvastatin (LIPITOR) 40 mg tablet Take 1 tablet by mouth daily at bedtime. aspirin 81 mg chewable tablet 1 tablet by ORAL/FEEDING TUBE route once daily. carvedilol (COREG) 3.125 mg tablet Take 1 tablet by mouth twice daily with meals. Per [facility] sevelamer carbonate (RENVELA) 800 mg tablet Take 1 tablet by mouth three times daily. acetaminophen (TYLENOL) 325 mg tablet Take 2 tablets every 4 hours as needed for pain. ALLERGIES: ALLERGIES Allergen Reactions Iodinated Contrast * Rash Cyclobenzaprine Unknown Dye Other: See Comments IV contrast makes pt run a high temperature Penicillins Rash Procardia [Nifedipi* Swelling Tramadol Unknown PHYSICAL EXAM: BP 101/70 Pulse 66 General: Alert and oriented Integumentary: Normal color, no rash, no lesions. HEENT: EOM, pupils equal, round and reactive. Cardiovascular: Normal S1 & S2, no rubs, murmurs or gallops. No JVD., Pulse regular. Lungs: Normal breath sounds, no wheezes or crackles. Lung thrill palpable bypass graft pulse Diagnostic tests reviewed for today's visit: Most recent imaging IMPRESSION: Mr. Sweeney is a 48 year old male with right arm revascularization with drill. Asymptomatic malfunctioning fistula. Follow-up in 12 months. PLAN and RECOMMENDATIONS: As above SIGNATURE: Gio Velarde MD PATIENT NAME: Carlitos Sweeney DATE: November 12, 2023 TIME: 10:42 AM documented in this encounterMer[facility]04-07-2024 Miscellaneous Notes* Telephone Encounter - Vania Castellon APRN.CNP - 09/28/2023 11:11 PM EDT [facility] After [facility] [place] In [place] Call Physician: Dr. Velarde Reason for Call; Leg Pain Resolution: See below Pt calling with LLE pain at calf running down the back of his leg - describes pain as sore and achy. Pain started early this morning sharp pain that eased up and went away; has been coming and going throughout the day. Took Tylenol with some relief but pain again recurring this evening. Denies erythema, states it is not warm to touch, no edema. Continues to describe the pain as sore and achy. Advised assessment with local provider as soon as possible to ensure no acute changes; if pain acutely worse, advised report to local ER. Pt verbalized understanding. Vania Turner APRN.CNP 11:14 PM documented in this encounterMer[facility]03-05-2024 Miscellaneous Notes* Telephone Encounter - Radha Sethi - 08/26/2023 9:11 AM EST Hi willow. This patient is stating he has dialysis on wed and fri and unable to make his follow up appt, he is wanting to know can he see his pcp for his post op. (Advised would send you a message toask) documented in this encounterMer[facility]. [facility]02-20-2024 Miscellaneous Notes* Telephone Encounter - Fredis Marquez APRN.MANUFACTURING COORDINATOR - 08/12/2023 8:40 PM EST Pt called regarding some red bumps on hand and edema. Pt recently had surgery on affected arm. Pt states that he has not been elevating his arm like instructed post op. He states that arm is well perfused and denies any numbness or tingling in distal extremity. Advised patient that he can take benadryl for itching and small bumps and to keep arm elevated as much as possible. Pt has appointment wit h outpatient Dialysis and will be evaluated further tomorrow by his provider. All questions and concerns were addressed. documented in this encounterMercy [facility]. [facility]02-20-2024 Miscellaneous Notes* Telephone Encounter - Abigail Viveros LPN - 08/12/2023 7:40 PM EST Patient calling regarding rt arm discolored, itching, hard to touch. Conferenced to [facility] fret saw operator, Aura, to speak with provider correctional substance abuse counselor for Dr. Velarde. Abigail Viveros LPN documented in this [facility]02-14-2024 Miscellaneous Notes* Telephone Encounter - Emi Muñoz - 08/06/2023 11:59 AM EST Spoke with Carlitos, provided surgery arrival time of 8am to J1-2,NPO after midnight follow medication guidelines and blood thinners if any documented in this [facility]02-13-2024 Miscellaneous Notes* Telephone Encounter - Zoë Mendoza RN - 08/05/2023 11:22 AM EST Spoke with patient regarding previous message. Patient reports right fingers numb and have a slight pinkish/ purple color. Denies worsening ulcerations or pain at this time. Advised patient that he can go to ED for sooner evaluation, patient denies due to transportation. Patient states he has transportation arranged for surgery on with Dr Velarde and would like to just keep this as scheduled. Advised patient to present to local ED for worsening symptoms. Patient agreeable to plan and verbalizes understanding. All additional questions have been answered at this time. Office call back number provided. * Telephone Encounter - Tati Adamson - 08/05/2023 9:29 AM EST Pt called in and stated his right hand has been numb all Friday and Friday and also has a sharp pain. documented in this encounterMercy [facility]. [facility]02-09-2024 Miscellaneous Notes* Telephone Encounter - Zoë Mendoza RN - 08/01/2023 2:10 PM EST Spoke with patient. Offered DOS 08/07/23. Patient agreeable to date and aware of off pre op instructions. Patient agreeable to plan and verbalizes understanding. All additional questions have been answered at this time. Office call back number provided. * Telephone Encounter - Tati Adamson - 08/01/2023 12:19 PM EST PT called in to get surgery rescheduled documented in this encounterMer[facility]02-01-2024 Miscellaneous Notes* Telephone Encounter - Zoë Mendoza RN - 07/24/2023 11:31 AM EST LVM to patient advising to return my call to reschedule surgery with Dr Velarde. Provided call backnumber. documented in this encounterMer[facility]12-13-2023 History of Present illness Narrative* Gio Velarde MD - 06/04/2023 10:09 AM EST Images from the original note were not included. [facility] DEPARTMENT OF VASCULAR SURGERY OUTPATIENT VISIT DATE June 04, 2023 OUTPATIENT VISIT TYPE CONSULTATION SERVICE DATE: 06/04/2023 SERVICE TIME: 10:09 AM PRIMARY CARE PHYSICIAN: Monie Alston DO REFERRING PROVIDER: KALA Consult requested for an opinion regarding the evaluation and treatment of the above. My final impression and recommendations will be communicated back to the requesting physician by way of the shared medical record or letter via [place] mail. 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 Caballero. A copy of this consultation note will be providedto the requesting physician by way of shared Medical record or letter to requesting physician via [place] mail. Mr. Sweeney is a 47 year old male who is seen today for for multifactorial problem related to dialysis access. He states to me that he has been going for intermittent staged interventions of the what sounds like right innominate superior vena cava. He has a left axillary subclavian AICD. We do not have outside images but I would suspect that he has a SVC related stenosis plus or minus right innominate. Currently, he denies any head face or neck swelling he has no arm swelling. He states that prior tothese interventions he is relatively asymptomatic. I am uncertain as to the indication and will reach out to his team for both the images and clinical background of why he is having the scheduled interventions. Secondly, he notes that the fistula has increased in size over time and the reports weakness of theright hand as well as dropping objects numbness and tingling which is consistent with steal syndrome. He is seeing Dr. Velazquez in [place] who seems to support that he should not have interventions of the central vein circulation for an asymptomatic process and that he likely has steal. I discussed with him the options for management of his steal including ligation of his vascular access. With this, given the fact that he has a left-sided ICD and a right-sided innominate lesion thiswould require lower extremity access. He is relatively young. This was seem to be a less desirable management option. Alternatively, we will we can perform distal revascularization with interval ligation using leg pain. This would allow preservation of the access with revascularization of his hand.He is in agreement. PAST MEDICAL HISTORY Diagnosis Date Abdominal pain 10/01/2013 Anemia associated with stage 5 chronic renal failure ([facility]) 07/01/2022 Anxiety 10/01/2013 Arteriovenous fistula, acquired ([facility]) 11/21/2022 BENIGN HYP RENAL W KID FAIL 02/11/2005 Cardiomyopathy ([facility]) 07/01/2022 Echo 12/2014 EF 20%. Chronic combined systolic and diastolic CHF (congestive heart failure) ([facility]) 08/18/2015 Seeing cardio in [place] (has pace maker/defibulator) Chronic kidney disease, stage 5 ([facility]) Dialysis M,W,F @ [facility] Chronic obstructive pulmonary disease ([facility]) 08/18/2015 Chronic obstructive pulmonary disease ([facility]) 08/18/[address] Barber ([place]) Congenital solitary kidney pt was born with solitary atrophic kidney Elevated hemoglobin A1c 10/13/2020 End stage renal failure on dialysis ([facility]) 02/12/2017 Essential hypertension 09/10/2013 Gastroesophageal reflux disease without esophagitis 10/23/2016 H/O: endocrine disorder 07/01/2022 Comment on above: HYPERPARATHYROIDISM - DR HERNANDEZ NOTES Hemodialysis patient ([facility]) 03/28/2016 History of cardiac pacemaker in situ 08/31/2015 History of implantable cardiac defibrillator (ICD) 02/03/2015 Hyperkalemia 02/12/2017 Hyperphosphatemia 02/12/2017 Hypertensive heart disease with congestive heart failure ([facility]) 02/12/2017 Hypocalcemia 02/12/2017 Implantable cardioverter-defibrillator (ICD) in situ 02/12/2017 Kidney replaced by transplant 05/27/1997 Kidney transplant failure and rejection 05/12/2013 Kidney transplant rejection 05/12/2013 Left ventricular systolic dysfunction 08/31/2015 Malrotation of colon 07/01/[address]d 07/02/2015 Comment on above: noted on ct abd 07/02/2015 Migraine headache 07/01/2022 Mild episode of recurrent major depressive disorder ([facility]) 09/04/2021 Moderate episode of recurrent major depressive disorder ([facility]) 10/23/2016 MRSA colonization, nasal 02/28/2014 Nonrheumatic aortic valve stenosis 11/21/2022 Seeing cardio Presence of combination internal cardiac defibrillator (ICD) and pacemaker Psychophysiological insomnia 11/14/2020 Patient needs substance agreement and Tox screening done at appt on 01/10/2021. If cancels or No Shows the Belsomra will be stopped. 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 PAST SURGICAL HISTORY Procedure Laterality Date 2D ECHO (EXEP) 11/02/2020 EF=50%, mod Joshi dysf CHOLECYSTECTOMY INSJ TUNNELED CVC W/O SUBQ PORT/MANAGER TRAINING AND DEVELOPMENT AGE 3 YR/> 01/21/2014 PAST SURGICAL HISTORY OF 05/1997 Renal Transplant, cadaveric PAST SURGICAL HISTORY OF 09/2011 renal transplant PAST SURGICAL HISTORY OF Right cautery right nare for chronic nosebleeds PAST SURGICAL HISTORY OF 01/31/2017 LEFT UPPER ARM AVG SOCIAL HISTORY: Social History Tobacco Use Smoking status: Every Day Packs/day: 0.50 Years: 29.00 Additional pack years: 0.00 Total pack years: 14.50 Types: Cigarettes Smokeless tobacco: Never Tobacco comments: off and on, less than half of pack Vaping Use Vaping Use: Never used Substance Use Topics Alcohol use: No Drug use: No FAMILY HISTORY Problem Relation Age of Onset Diabetes Father Heart Father Asthma Brother Heart Brother Diabetes Paternal Uncle Anesthesia Problems No Family History MEDICATIONS: predniSONE (DELTASONE) 50 mg Take one tablet by mouth13 hrs prior to scan, then 7 hrs prior to scanand then 1 hr prior to scan diphenhydrAMINE (BENADRYL) 50 mg capsule Take 1 capsule by mouth as directed for 1 dose. Take 1 capsule by mouth 1 hour prior to your scan. carvedilol (COREG) 3.125 mg tablet Take 1 tablet by mouth twice daily with meals. Per [facility] busPIRone (BUSPAR) 5 mg tablet Take 1 tablet by mouth three times daily. hydrOXYzine HCl (ATARAX) 25 mg tablet Take 0.5 tablets by mouth three times daily as needed for anxiety. hydrALAZINE (APRESOLINE) 50 mg tablet Take 50 mg by mouth three times daily. sevelamer carbonate (RENVELA) 800 mg tablet Take 1 tablet by mouth three times daily. lisinopril (ZESTRIL, PRINIVIL) 5 mg tablet Take 5 mg by mouth once daily. amLODIPine (NORVASC) 10 mg tablet Take 1 tablet by mouth once daily. acetaminophen (TYLENOL) 325 mg tablet Take 2 tablets every 4 hours as needed for pain. calcium acetate (PHOSLO) 667 mg tab Take 667 mg by mouth as directed. takes 4 capsules 3 times a day plus 2 capsules with each snack. lidocaine (LIDODERM) 5 % Apply 1 Patch as directed every 24 hours. (Patient not taking: Reported on06/04/2023) ALLERGIES: ALLERGIES Allergen Reactions Iodinated Contrast * Rash Cyclobenzaprine Unknown Dye Other: See Comments IV contrast makes pt run a high temperature Penicillins Rash Procardia [Nifedipi* Swelling Tramadol Unknown REVIEW OF SYSTEM: Constitutional: No weight loss, malaise or fevers. HEENT: Negative for frequent or significant headaches Respiratory: Negative for cough, wheezing, or shortness of breath Cardiovascular: Negative for chest pain, leg swelling or palpitations Gatrointestinal: Negative for abdominal discomfort, blood in stools or black stools or change in bowel habits Genitourinary: No history of dysuria, frequency, or incontinence Musculoskeletal: Negative for joint pain or swelling, back pain or muscle pain Endocrine: Negative for cold or heat intolerance, polyuria, polydipsia and goiter Hematology/Lymphatic: Negative for prolonged bleeding, bruising easily or swollen nodes Neurologic: No history or headaches, syncope, paralysis, seizures or tremors Integumentary: Negative for lesions, rash, and itching. PHYSICAL EXAM: VITALS: BP 106/65 Pulse 90 Temp (Src) 97.2 (Oral) Resp 16 Ht 6' 0 (1.83m) Wt 163 lb 14.4oz (74.3kg) SpO2 99% BMI 22.22 kg/(m^2). General: Alert and oriented Integumentary: Normal color, no rash, no lesions. HEENT: EOM, pupils equal, round and reactive. Cardiovascular: Normal S1 & S2, no rubs, murmurs or gallops. No JVD., Pulse regular. Lungs: Normal breath sounds, no wheezes or crackles. Right lower quadrant incision. Palpable femoral popliteal pulse. Absent right radial pulse. Strong thrill within the fistula radial pulse returns with occlusion of the fistula IMPRESSION: Mr. Sweeney is a 47 year old male seen today. Steal syndrome of the right upper extremity. He will need lower extremity vein mapping, fistula ultrasound for volume flow which will likely be high. He has had AICD for low ejection fraction reportedly. He will need a new echo and stress test. He is seeing his roving or yarn color checker tomorrow. PLAN and RECOMMENDATIONS: As above informed symptoms provide SIGNATURE: Gio Velarde MD PATIENT NAME: Carlitos Sweeney DATE: June 04, 2023 TIME: 10:09 AM documented in this [facility]Mer[facility]12[facility]23 Miscellaneous Notes* Telephone Encounter - Zoë Mendoza RN - 05/29/2023 10:00 AM EST Spoke with patients significant other (Marina) regarding contrast dye allergy. Per Marina patient has pre medicated multiple times before and knows the protocol. Went over detailed instructions via telephone and dosing of medications (Prednisone x3 doses 13H, 7H, 1H prior to scan and Benadryl x1 dose 1H prior to scan). Patient requesting rx to be sent to [facility] on [facility] in [place], [place]. Advised that this RN will send instructions via Prox[employer] as well for a reminder on medication instructions. Ordered pended to PERFORMANCE INSTRUCTOR. Patient agreeable to plan and verbalizes understanding. All additional questions have been answered at this time. Office call back number provided. * Telephone Encounter - Tati Adamson - 05/28/2023 3:42 PM EST PT called in to inform us he is allergic to the contrast dye documented in this encounterMer[facility]09-21-2023 History of Present illness Narrative* Manjit Field MD - 03/13/2023 9:54 AM EDT Images from the original note were not included. [facility] Established Patient Follow Up note SERVICE DATE: March 13, 2023 LAST VISIT DATE: September 16, 2022 PRIMARY CARE PHYSICIAN: Tom Conte MD Consultation requested by Dr. Cotne for an opinion regarding right pleural effusion. My final recommendations will be communicated back to the requesting physician by way of shared Medical record orletter to requesting physician via US mail. SUBJECTIVE CHIEF COMPLAINT: Right-sided pleural effusion. HPI: Carlitos Sweeney is a 47 year old male here for follow-up. His PMH is significant for ESRD on HD, hypertension, HFrEF status post AICD, congenital solitary kidney, multiple comorbidities with recurrent right-sided pleural effusion and shortness of breath associated with it. For the recurrent pleural effusion we started him with a Pleurx catheter that was getting clogged several times so an upgrade in size was done. After that he had pleurodesis and the Pleurx catheter was removed. Since his last visit back in August he states that he is doing okay with no new symptoms. He had hisPleurx catheter removed around September and has been doing well since then. Denies any new symptoms, continues to smoke and states that he does not have any cough, fever, chills, chest pain or tightness. Otherwise denies any significant weight loss, fever, chills, lightheadedness, dizziness, fatigue, abdominal pain or any other significant symptoms. PMH: PAST MEDICAL HISTORY Diagnosis Date Abdominal pain 10/01/2013 Anemia associated with stage 5 chronic renal failure ([facility]) 07/01/2022 Anxiety 10/01/2013 Arteriovenous fistula, acquired ([facility]) 11/21/2022 BENIGN HYP RENAL W KID FAIL 02/11/2005 Cardiomyopathy ([facility]) 07/01/2022 Echo 12/2014 EF 20%. Chronic combined systolic and diastolic CHF (congestive heart failure) ([facility]) 08/18/2015 Seeing cardio in [place] (has pace maker/defibulator) Chronic kidney disease, stage 5 ([facility]) Dialysis M,W,F @ [facility] Chronic obstructive pulmonary disease ([facility]) 08/18/2015 Chronic obstructive pulmonary disease ([facility]) 08/18/[address] Barber ([place]) Congenital solitary kidney pt was born with solitary atrophic kidney Elevated hemoglobin A1c 10/13/2020 End stage renal failure on dialysis ([facility]) 02/12/2017 Essential hypertension 09/10/2013 Gastroesophageal reflux disease without esophagitis 10/23/2016 H/O: endocrine disorder 07/01/2022 Comment on above: HYPERPARATHYROIDISM - DR HERNANDEZ NOTES Hemodialysis patient ([facility]) 03/28/2016 History of cardiac pacemaker in situ 08/31/2015 History of implantable cardiac defibrillator (ICD) 02/03/2015 Hyperkalemia 02/12/2017 Hyperphosphatemia 02/12/2017 Hypertensive heart disease with congestive heart failure ([facility]) 02/12/2017 Hypocalcemia 02/12/2017 Implantable cardioverter-defibrillator (ICD) in situ 02/12/2017 Kidney replaced by transplant 05/27/1997 Kidney transplant failure and rejection 05/12/2013 Kidney transplant rejection 05/12/2013 Left ventricular systolic dysfunction 08/31/2015 Malrotation of colon 07/01/[address]d 07/02/2015 Comment on above: noted on ct abd 07/02/2015 Migraine headache 07/01/2022 Mild episode of recurrent major depressive disorder (HCC) 09/04/2021 Moderate episode of recurrent major depressive disorder (HCC) 10/23/2016 MRSA colonization, nasal 02/28/2014 Nonrheumatic aortic valve stenosis 11/21/2022 Seeing cardio Presence of combination internal cardiac defibrillator (ICD) and pacemaker Psychophysiological insomnia 11/14/2020 Patient needs substance agreement and Tox screening done at appt on 01/10/2021. If cancels or No Shows the Belsomra will be stopped. 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 PSH: PAST SURGICAL HISTORY Procedure Laterality Date 2D ECHO (EXEP) 11/02/2020 EF=50%, mod Joshi dysf CHOLECYSTECTOMY INSJ TUNNELED CVC W/O SUBQ PORT/MANAGER TRAINING AND DEVELOPMENT AGE 3 YR/> 01/21/2014 PAST SURGICAL HISTORY OF 05/1997 Renal Transplant, cadaveric PAST SURGICAL HISTORY OF 09/2011 renal transplant PAST SURGICAL HISTORY OF Right cautery right nare for chronic nosebleeds PAST SURGICAL HISTORY OF 01/31/2017 LEFT UPPER ARM AVG Family Hx: Family History Problem Relation Age of Onset Diabetes Father Heart Father Asthma Brother Heart Brother Diabetes Paternal Uncle Anesthesia Problems No Family History SOCIAL HISTORY: Social History Tobacco Use Smoking status: Every Day Packs/day: 0.50 Years: 29.00 Additional pack years: 0.00 Total pack years: 14.50 Types: Cigarettes Smokeless tobacco: Never Tobacco comments: off and on, less than half of pack Vaping Use Vaping Use: Never used Substance Use Topics Alcohol use: No Drug use: No MEDICATIONS: Current Outpatient Medications Medication Sig Dispense Refill carvedilol (COREG) 3.125 mg tablet Take 1 tablet by mouth twice daily with meals. Per [facility] busPIRone (BUSPAR) 5 mg tablet Take 1 tablet by mouth three times daily. 90 tablet 1 hydrOXYzine HCl (ATARAX) 25 mg tablet Take 0.5 tablets by mouth three times daily as needed for anxiety. 30 tablet 1 lidocaine (LIDODERM) 5 % Apply 1 Patch as directed every 24 hours. 10 Patch 2 hydrALAZINE (APRESOLINE) 50 mg tablet Take 50 mg by mouth three times daily. sevelamer carbonate (RENVELA) 800 mg tablet Take 1 tablet by mouth three times daily. lisinopril (ZESTRIL, PRINIVIL) 5 mg tablet 5 mg. amLODIPine (NORVASC) 10 mg tablet Take 1 tablet by mouth once daily. 0 acetaminophen (TYLENOL) 325 mg tablet Take 2 tablets every 4 hours as needed for pain. calcium acetate (PHOSLO) 667 mg tab Take 667 mg by mouth as directed. takes 4 capsules 3 times a day plus 2 capsules with each snack. No current facility-administered medications for this visit. ALLERGIES Allergen Reactions Iodinated Contrast * Rash Cyclobenzaprine Unknown Dye Other: See Comments IV contrast makes pt run a high temperature Penicillins Rash Procardia [Nifedipi* Swelling Tramadol Unknown (Not in a hospital admission) CURRENT ALLERGIES: ALLERGIES Allergen Reactions Iodinated Contrast * Rash Cyclobenzaprine Unknown Dye Other: See Comments IV contrast makes pt run a high temperature Penicillins Rash Procardia [Nifedipi* Swelling Tramadol Unknown COMPLETE REVIEW OF SYSTEMS: REVIEW OF SYSTEMS 12 Point ROS done and negative except HPI. OBJECTIVE PHYSICAL EXAMINATION: VITAL SIGNS: BP 97/60 Pulse 77 Temp 97 Resp 16 Ht 5' 11 (1.80m) Wt 166 lb 3.2 oz (75.4kg) SpO2 100% BMI 23.19 kg/(m^2). General appearance- NAD, no conversational dyspnea. Ambulates without assistance smells of smoke Eyes: PERRLA; anicteric sclera, No conjunctival injection; No heliotrope rash. ENMT: Gross hearing intact. No oral ulcers. No oral thrush. Mallampati class 4 Neck: No palpable DELPHINE; No obvious goiter; No JVD Cardiovascular: RRR w/o murmurs Respiratory: Bilateral air entry with no added sounds. No crackles, wheezes, or rhonchi. No accessory muscle use. Good effort. No kyphosis. Gastrointestinal: soft, NT/ND, BS+ Skin: No visible rashes, lesions, or subcutaneous nodules; No Gottron's papules; normal temperature Psychiatric: Alert and oriented x person, place and time; cooperative, appropriate affect Neurological: Gross sensation intact. EOMI, moving all extremities Musculoskeletal: No clubbing or cyanosis; No joint effusions, swelling or erythema; strength 5/5 throughout; normal tone Extremities: Peripheral pulses present; No edema DATA: Diagnostic tests reviewed for today's visit, films/specimens were personally reviewed by me: Labs: CBC with diff: WBC 4.36 07/17/2021 RBC 2.99 07/17/2021 HGB 8.3 07/17/2021 HCT 27.5 07/17/2021 MCV 92.0 07/17/2021 MCH 27.8 07/17/2021 MCHC 30.2 07/17/2021 RDW-CV 14.6 07/17/2021 PLT 252 07/17/2021 MPV 9.0 07/17/2021 Neut% 57.7 07/17/2021 Lymph% 22.7 07/17/2021 [place]% 13.5 07/17/2021 Eosin% 5.0 07/17/2021 Baso% 1.1 07/17/2021 Abs Neut (ANC) 2.50 07/17/2021 Abs [place] 0.59 07/17/2021 Abs Eosin 0.22 07/17/2021 Abs Baso 0.05 07/17/2021 Diagnostic Work Up: CT chest: Done 02/14/22 IMPRESSION: 1. Right thoracentesis with moderate residual effusion. Diffuse congestive changes. 2. Improved ventilation of the peroneal persist and atelectatic changes in the basal segments, possibly a combination of basilar atelectasis and scarring. Recommend follow-up to assess for resolution. 3. A 0.6 cm nodularity with coarse calcification in the superior lingula is incompletely characterized. Recommend follow-up CT in 12 months to assess stability. Done February 11, [address] [facility] showing right-sided pleural effusion with possible loculation and tracheal deviation towards the left because of the pleural effusion. There is no evidence of emphysema on that scan. Done February 04, 2022 showed moderate to large right-sided pleural effusion. Chest xray: 03/11/22 RESULT: Lines, tubes, and devices: Left chest AICD with leads profiling right atrium and right ventricle. Lungs and pleura: No pneumothorax. Pleural parenchymal opacities at the right lung base likely representing combination of right lower lung atelectasis and small to moderate-sized pleural effusion. The effusion is decreased in size from prior chest x-ray. Cardiomediastinal silhouette: Normal cardiomediastinal silhouette. Done February 11, 2022 showed right-sided whiteout with no other significant findings. Done November 01, 2021 showed moderate fluid atelectasis at the right base. Superimposed consolidation cannot be ruled out. Heart echo: Done October 2021, showing LVEF of 40% with no significant findings otherwise. PFT: None recent in our records. 1997 Spirometry indicates mild restriction by FVC. Recommend lung volumes and diffusing capacity if clinically indicated. Note:LLN is the lower limit of normal for each value Pred LLN Pre %Pred Post %Chg Date 01/19/98 Time 09:51:32AM FVC 5.55 4.43 3.93 71 FEV 1 4.61 3.77 3.78 82 Ratio 83.6 75.4 96.0 115 25-75% 4.86 3.20 6.55 135 PEF 9.85 7.08 10.8 110 FEF 50 6.07 4.56 7.30 120 FIF 50 8.79 FE%FIF 83.0 FET 6.53 Reviewed all his chest x-rays since last visit with the last 1 showing decreased left-sided pleuraleffusion and in between there was ultrasound showing loculated effusion preinsertion of the last chest tube/Pleurx. Patient had dressing with him and I removed the old dressing and placed a new 1 there is no evidence of any infection with no erythema, no discharge and small amount of dried blood on the dressing. Dressing was changed under sterile conditions. ASSESSMENT 1. Tobacco use disorder - ICD9: 305.1, ICD10: F17.200 (primary diagnosis) 2. Recurrent right pleural effusion - ICD9: 511.9, ICD10: J90 he is status post removal of the Pleurx catheter and no longer has any symptoms. Considering that he is doing well with no new symptoms and no evidence of reaccumulation patient can be discharged from clinic. To follow-up as needed. PLAN: No orders of the defined types were placed in this encounter. Return if symptoms worsen or fail to improve. Copy to Referring physician Thank you for allowing me to participate in this patient's care. I spent a total of 21 minutes on the date of the service which included preparing to see the patient, [id number] patient care, completing clinical documentation, obtaining and/or reviewing separately obtained history, performing a medically appropriate examination, and counseling and educating the patient/family/caregiver. SIGNATURE: Manjit Field MD PATIENT NAME: Carlitos Sweeney DATE: March 13, 2023 TIME: 9:54 AM PAGER/CONTACT #: [phone] documented in this encounterMer[facility]09-11-2023 History of Present illness Narrative* Rashmi Liu Ma - 03/03/2023 3:04 PM EDT Scan on 03/03/2023 2:58 PM by Provider, YUNIOR Loza: Consultation - Cardiology documented in this encounterMercy [facility] St. [facility]08-01-2023 Miscellaneous Notes* Telephone Encounter - Rashmi Liu Ma - 01/21/2023 9:47 AM EDT Pt notified of results via [employer]. Rashmi Liu Ma * Telephone Encounter - Lyudmila An APRN.CNP - 01/21/2023 9:45 AM EDT Please let patient know his lab is stable documented in this encounterMercy [facility] St. [facility]07-31-2023 Instructions* Patient Instructions* Lyudmila An APRN.CNP - 01/20/2023 4:35 PM EDT Schedule with Voice Teacher and Lock Stitch Channeler Complete labs Continue to hold Hypertensive medications. documented in this encounterMercy Health St. [facility]07-31-2023 History of Present illness Narrative* Lyudmila An APRN.CNP - 01/20/2023 4:15 PM EDT Chief Complaint Patient presents with: Follow Up: Blood pressure HPI Carlitos Sweeney is a 47 year old male who presents here today for Above Complaints.. Patient presents for lightheadedness and hypotension. Patient has a PMH HTN, cardiomyopathy, CHF, CKD with dialysis. Patient is prescribed 4 anti- hypertensive's however he has not been taking his medications because they have been so low. Patient reports he called his roving or yarn color checker and left a message regarding his current issues however they have not returned his message. Past medical history, appointments, medications, allergies reviewed. Previous Medical History PAST MEDICAL HISTORY Diagnosis Date Abdominal pain 10/01/2013 Anemia associated with stage 5 chronic renal failure (HCC) 07/01/2022 Anxiety 10/01/2013 Arteriovenous fistula, acquired ([facility]) 11/21/2022 BENIGN HYP RENAL W KID FAIL 02/11/2005 Cardiomyopathy ([facility]) 07/01/2022 Echo 12/2014 EF 20%. Chronic combined systolic and diastolic CHF (congestive heart failure) ([facility]) 08/18/2015 Seeing cardio in [place] (has pace maker/defibulator) Chronic kidney disease, stage 5 ([facility]) Dialysis M,W,F @ [facility] Chronic obstructive pulmonary disease ([facility]) 08/18/2015 Chronic obstructive pulmonary disease ([facility]) 08/18/[address] Barber ([place]) Congenital solitary kidney pt was born with solitary atrophic kidney Elevated hemoglobin A1c 10/13/2020 End stage renal failure on dialysis ([facility]) 02/12/2017 Essential hypertension 09/10/2013 Gastroesophageal reflux disease without esophagitis 10/23/2016 H/O: endocrine disorder 07/01/2022 Comment on above: HYPERPARATHYROIDISM - DR HERNANDEZ NOTES Hemodialysis patient ([facility]) 03/28/2016 History of cardiac pacemaker in situ 08/31/2015 History of implantable cardiac defibrillator (ICD) 02/03/2015 Hyperkalemia 02/12/2017 Hyperphosphatemia 02/12/2017 Hypertensive heart disease with congestive heart failure ([facility]) 02/12/2017 Hypocalcemia 02/12/2017 Implantable cardioverter-defibrillator (ICD) in situ 02/12/2017 Kidney replaced by transplant 05/27/1997 Kidney transplant failure and rejection 05/12/2013 Kidney transplant rejection 05/12/2013 Left ventricular systolic dysfunction 08/31/2015 Malrotation of colon 07/01/[address]d 07/02/2015 Comment on above: noted on ct abd 07/02/2015 Migraine headache 07/01/2022 Mild episode of recurrent major depressive disorder (HCC) 09/04/2021 Moderate episode of recurrent major depressive disorder (HCC) 10/23/2016 MRSA colonization, nasal 02/28/2014 Nonrheumatic aortic valve stenosis 11/21/2022 Seeing cardio Presence of combination internal cardiac defibrillator (ICD) and pacemaker Psychophysiological insomnia 11/14/2020 Patient needs substance agreement and Tox screening done at appt on 01/10/2021. If cancels or No Shows the Belsomra will be stopped. 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 Previous Surgical History PAST SURGICAL HISTORY Procedure Laterality Date 2D ECHO (EXEP) 11/02/2020 EF=50%, mod Joshi dysf CHOLECYSTECTOMY INSJ TUNNELED CVC W/O SUBQ PORT/MANAGER TRAINING AND DEVELOPMENT AGE 3 YR/> 01/21/2014 PAST SURGICAL HISTORY OF 05/1997 Renal Transplant, cadaveric PAST SURGICAL HISTORY OF 09/2011 renal transplant PAST SURGICAL HISTORY OF Right cautery right nare for chronic nosebleeds PAST SURGICAL HISTORY OF 01/31/2017 LEFT UPPER ARM AVG Family History FAMILY HISTORY Problem Relation Age of Onset Diabetes Father Heart Father Asthma Brother Heart Brother Diabetes Paternal Uncle Anesthesia Problems No Family History Patient Allergies ALLERGIES Allergen Reactions Iodinated Contrast * Rash Cyclobenzaprine Unknown Dye Other: See Comments IV contrast makes pt run a high temperature Penicillins Rash Procardia [Nifedipi* Swelling Tramadol Unknown Current Medications Current Outpatient Medications on File Prior to Visit Medication Sig busPIRone (BUSPAR) 5 mg tablet Take 1 tablet by mouth three times daily. hydrOXYzine HCl (ATARAX) 25 mg tablet Take 0.5 tablets by mouth three times daily as needed for anxiety. lidocaine (LIDODERM) 5 % Apply 1 Patch as directed every 24 hours. hydrALAZINE (APRESOLINE) 50 mg tablet Take 50 mg by mouth three times daily. NIFEdipine XL (ADALAT CC) 30 mg 24 hr tablet Take 30 mg by mouth twice daily. sevelamer carbonate (RENVELA) 800 mg tablet Take 1 tablet by mouth three times daily. lisinopril (ZESTRIL, PRINIVIL) 5 mg tablet 5 mg. amLODIPine (NORVASC) 10 mg tablet Take 1 tablet by mouth once daily. acetaminophen (TYLENOL) 325 mg tablet Take 2 tablets every 4 hours as needed for pain. calcium acetate (PHOSLO) 667 mg tab Take 667 mg by mouth as directed. takes 4 capsules 3 times a day plus 2 capsules with each snack. carvedilol (COREG) 25 mg tablet Take 25 mg by mouth twice daily with meals. No current facility-administered medications on file prior to visit. Social History Social History Tobacco Use Smoking status: Every Day Packs/day: 0.50 Years: 29.00 Total pack years: 14.50 Types: Cigarettes Smokeless tobacco: Never Tobacco comments: off and on, less than half of pack Vaping Use Vaping Use: Never used Substance Use Topics Alcohol use: No Drug use: No Review of Symptoms REVIEW OF SYSTEMS SEE HPI EXAM: BP 102/58 Pulse 90 Resp 16 Wt 72.1 kg (159 lb) BMI 22.18 kg/m General Appearance: Well appearing, alert, in no acute distress, well-hydrated, well nourished.. Lungs: Lungs clear to auscultation. No wheezing, rhonchi, rales.. Heart: RRR without murmur, gallop, or rubs. No ectopy. Orthostatic Vital Signs Laying-92/54, HR 90 Sitting 90/55, HR 93 Standing 97/62, HR 90 Health Maintenance List COVID-19 VACCINE(4 - Booster for Pfizer series) due on 01/16/2023 COLORECTAL CANCER SCREENING due on 11/22/2023 SHINGRIX VACCINE(1 of 2) due on 11/22/2023 INFLUENZA(1) due on 02/21/2023 HEMOGLOBIN/HEMATOCRIT due on 04/04/2023 ANNUAL PCP TEAM CHRONIC DISEASE VISIT due on 11/22/2023 SERUM CREATININE due on 11/22/2023 BP CONTROLLED (<130/80) due on 11/22/2023 DIABETES SCREEN due on 11/21/2025 LIPID SCREEN due on 11/22/2027 DTAP,TDAP,TD(3 - Td or Tdap) due on 10/23/2030 PNEUMOCOCCAL(4 - PPSV23 or PCV20) due on 2038 SPIROMETRY Completed HEPATITIS C SCREENING Completed HIV SCREENING Completed HPV VACCINE Aged Out ALPHA-1 ANTITRYPSIN DEFICIENCY SCREENING Discontinued ASSESSMENT/PLAN: 1. Hypotension, unspecified hypotension type - ICD9: 458.9, ICD10: I95.9 - COMP METABOLIC PANEL - Discussed with Dr. Conte, encouraged patient to continue to hold hypertensive medications. 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 Lyudmila An APRN.JYOTI [facility] Discharge instructions Patient Education 01/16/2023 17:19:38 Wrist Sprain Wrist Sprain A sprain is an injury to the ligaments or capsule that holds a joint together. There are no broken bones. Most sprains take about 3 to 6 weeks to heal. If it a severe sprain where the ligament is completely torn, it can take months to recover. Most wrist sprains are treated with a splint, wrist brace, or elastic wrap for support. Severe sprains may require surgery. Home care Keep your arm elevated to reduce pain and swelling. This is very important during the first 48 hours. Apply an ice pack over the injured area for 15 to 20 minutes every 3 to 6 hours. You should do thisfor the first 24 to 48 hours. You can make an ice pack by filling a plastic bag that seals at the top with ice cubes and then wrapping it with a thin towel. Continue to use ice packs for relief of pain and swelling as needed. As the ice melts, be careful to avoid getting your wrap, splint, or cast wet. After 48 hours, apply heat (warm shower or warm bath) for 15 to 20 minutes several times a day,or alternate ice and heat. You may use vkqa-efq-ceflsye pain medicine to control pain, unless another pain medicine was prescribed. If you have chronic liver or kidney disease or ever had a stomach ulcer or gastrointestinal bleeding, talk with your doctor before using these medicines. If you were given a splint or brace, wear it for the time advised by your doctor. Follow-up care Follow up with your healthcare provider, or as advised. Any X-rays you had today don t show any broken bones, breaks, or fractures. Sometimes fractures don t show up on the first X-ray. Bruises and sprains can sometimes hurt as much as a fracture. These injuries can take time to heal completely. Ifyour symptoms don t improve or they get worse, talk with your doctor. You may need a repeat X-ray. If X-rays were taken, you will be told of any new findings that may affect your care. When to seek medical advice Call your healthcare provider right away if any of these occur: Pain or swelling increases Fingers or hand becomes cold, blue, numb, or tingly [phone] [employer]. [address] [place] [address], [place] [address]. All rights reserved. This information is not intended as a substitute for professional medical care. Always follow yourhealthcare professional's instructions. 01/16/2023 17:19:38 Wrist Sprain Wrist Sprain A sprain is an injury to the ligaments or capsule that holds a joint together. There are no broken bones. Most sprains take about 3 to 6 weeks to heal. If it a severe sprain where the ligament is completely torn, it can take months to recover. Most wrist sprains are treated with a splint, wrist brace, or elastic wrap for support. Severe sprains may require surgery. Home care Keep your arm elevated to reduce pain and swelling. This is very important during the first 48 hours. Apply an ice pack over the injured area for 15 to 20 minutes every 3 to 6 hours. You should do thisfor the first 24 to 48 hours. You can make an ice pack by filling a plastic bag that seals at the top with ice cubes and then wrapping it with a thin towel. Continue to use ice packs for relief of pain and swelling as needed. As the ice melts, be careful to avoid getting your wrap, splint, or cast wet. After 48 hours, apply heat (warm shower or warm bath) for 15 to 20 minutes several times a day,or alternate ice and heat. You may use jdve-kcr-qkuqzfw pain medicine to control pain, unless another pain medicine was prescribed. If you have chronic liver or kidney disease or ever had a stomach ulcer or gastrointestinal bleeding, talk with your doctor before using these medicines. If you were given a splint or brace, wear it for the time advised by your doctor. Follow-up care Follow up with your healthcare provider, or as advised. Any X-rays you had today don t show any broken bones, breaks, or fractures. Sometimes fractures don t show up on the first X-ray. Bruises and sprains can sometimes hurt as much as a fracture. These injuries can take time to heal completely. Ifyour symptoms don t improve or they get worse, talk with your doctor. You may need a repeat X-ray. If X-rays were taken, you will be told of any new findings that may affect your care. When to seek medical advice Call your healthcare provider right away if any of these occur: Pain or swelling increases Fingers or hand becomes cold, blue, numb, or tingly [id number] [employer]. [address] [place] [address], [place] [address]. All rights reserved. This information is not intended as a substitute for professional medical care. Always follow yourhealthcare professional's instructions. Follow Up Care 01/16/2023 16:08:56 With:TOM CONTE MD Address: [address] [place] [address] When:2-4 days [facility] 07-27-2023 Note Discharge Instructions Thank you for allowing [facility] to assist you with your healthcare needs. The following is importantdischarge information regarding your hospital visit. Diagnosis from Today's Visit Wrist pain-swelling Wrist sign What to Do Next Instructions from Your Care Team Discharge Home Equipment - Ordered -- Splint, thumb velcro spica, 1 month(s), 01/16/23 17:17:00 EDT Post Acute Orders No qualifying data available. You Need to Schedule the Following Appointments Follow Up with TOM CONTE MD When Within 2-4 days [facility] [address] [facility] [id number]- Allergies penicillin (Anaphylaxis, rash) Contrast dye (Skin rash, Fever) cyclobenzaprine (Skin rash) traMADol (Skin rash) Medications Please ask your primary doctor or pharmacist before taking any other medication not listed, including over the counter drugs, herbal medications, vitamins and or supplements as they may interact withyour home medications. What How Much When Why Instructions Last Dose Unchanged acetaminophen (acetaminophen 325 mg oral capsule) 2 cap by mouth Every 4 hours as needed for for pain Unchanged atorvastatin (atorvastatin 40 mg oral tablet) 1 tab(s) by mouth Once a day Duration: 30 Days Unchanged baclofen (baclofen 10 mg oral tablet) 1 tab(s) by mouth Three (3) times a day Duration: 7 Days Unchanged busPIRone (busPIRone 5 mg oral tablet) 1 tab(s) by mouth Three (3) times a day Unchanged calcium acetate (calcium acetate 667 mg oral capsule) 4 cap by mouth Three (3) times a day with meals Unchanged carvedilol (Coreg 3.125 mg oral tablet) 1 tab(s) by mouth Twice daily with meals Duration: 30 Days Unchanged hydrALAZINE (hydrALAZINE 50 mg oral tablet) 1 tab(s) by mouth Three (3) times a day Unchanged hydrOXYzine (hydrOXYzine hydrochloride 25 mg oral tablet) 1 tab(s) by mouth Three (3) times a day as needed for as needed for itching Unchanged isosorbide mononitrate (isosorbide mononitrate 30 mg oral tablet, extended release) 1 tab(s) by mouth Once a day before a meal Duration: 30 Days Unchanged predniSONE (predniSONE 10 mg oral tablet) 4 tab(s) by mouth Once a day Duration: 5 Days Unchanged sevelamer (Renvela 800 mg oral tablet (NF)) 1 tab(s) by mouth Three (3) times a day with meals Unchanged tiZANidine (tiZANidine 2 mg oral tablet) 1 tab(s) by mouth Every 8 hours Chest pain Please take this list to your next doctor s visit. Bring all medications you take, including over the counter medications, herbals and other supplements with you to your doctor s visit. Patients and families are reminded to discard old lists and to update any records with all medication providers or retail pharmacies. Education Materials Wrist Sprain A sprain is an injury to the ligaments or capsule that holds a joint together. There are no broken bones. Most sprains take about 3 to 6 weeks to heal. If it a severe sprain where the ligament is completely torn, it can take months to recover. Most wrist sprains are treated with a splint, wrist brace, or elastic wrap for support. Severe sprains may require surgery. Home care Keep your arm elevated to reduce pain and swelling. This is very important during the first 48 hours. Apply an ice pack over the injured area for 15 to 20 minutes every 3 to 6 hours. You should do thisfor the first 24 to 48 hours. You can make an ice pack by filling a plastic bag that seals at the top with ice cubes and then wrapping it with a thin towel. Continue to use ice packs for relief of pain and swelling as needed. As the ice melts, be careful to avoid getting your wrap, splint, or cast wet. After 48 hours, apply heat (warm shower or warm bath) for 15 to 20 minutes several times a day,or alternate ice and heat. You may use mstx-poe-kqkdusc pain medicine to control pain, unless another pain medicine was prescribed. If you have chronic liver or kidney disease or ever had a stomach ulcer or gastrointestinal bleeding, talk with your doctor before using these medicines. If you were given a splint or brace, wear it for the time advised by your doctor. Follow-up care Follow up with your healthcare provider, or as advised. Any X-rays you had today don t show any broken bones, breaks, or fractures. Sometimes fractures don t show up on the first X-ray. Bruises and sprains can sometimes hurt as much as a fracture. These injuries can take time to heal completely. Ifyour symptoms don t improve or they get worse, talk with your doctor. You may need a repeat X-ray. If X-rays were taken, you will be told of any new findings that may affect your care. When to seek medical advice Call your healthcare provider right away if any of these occur: Pain or swelling increases Fingers or hand becomes cold, blue, numb, or tingly [phone] [employer]. [address] [place] [address]. All rights reserved. This information is not intended as a substitute for professional medical care. Always follow yourhealthcare professional's instructions. Wrist Sprain A sprain is an injury to the ligaments or capsule that holds a joint together. There are no broken bones. Most sprains take about 3 to 6 weeks to heal. If it a severe sprain where the ligament is completely torn, it can take months to recover. Most wrist sprains are treated with a splint, wrist brace, or elastic wrap for support. Severe sprains may require surgery. Home care Keep your arm elevated to reduce pain and swelling. This is very important during the first 48 hours. Apply an ice pack over the injured area for 15 to 20 minutes every 3 to 6 hours. You should do thisfor the first 24 to 48 hours. You can make an ice pack by filling a plastic bag that seals at the top with ice cubes and then wrapping it with a thin towel. Continue to use ice packs for relief of pain and swelling as needed. As the ice melts, be careful to avoid getting your wrap, splint, or cast wet. After 48 hours, apply heat (warm shower or warm bath) for 15 to 20 minutes several times a day,or alternate ice and heat. You may use wjvk-tuj-zkhdphw pain medicine to control pain, unless another pain medicine was prescribed. If you have chronic liver or kidney disease or ever had a stomach ulcer or gastrointestinal bleeding, talk with your doctor before using these medicines. If you were given a splint or brace, wear it for the time advised by your doctor. Follow-up care Follow up with your healthcare provider, or as advised. Any X-rays you had today don t show any broken bones, breaks, or fractures. Sometimes fractures don t show up on the first X-ray. Bruises and sprains can sometimes hurt as much as a fracture. These injuries can take time to heal completely. Ifyour symptoms don t improve or they get worse, talk with your doctor. You may need a repeat X-ray. If X-rays were taken, you will be told of any new findings that may affect your care. When to seek medical advice Call your healthcare provider right away if any of these occur: Pain or swelling increases Fingers or hand becomes cold, blue, numb, or tingly [phone] [employer]. [address] [place] [address]. All rights reserved. This information is not intended as a substitute for professional medical care. Always follow yourhealthcare professional's instructions. Additional Information VACCINATE! IT SAVES LIVES! Members of the community who have not yet received the COVID-19 vaccine and would like to receive it can visit one of [facility] vaccine clinics. There are many vaccine clinic locations within the [facility]. For locations and available times, please visit www.gettheshot.coronavirus.[place].gov/. It is important to note that some COVID mobile vaccine clinics are held outdoors and may be canceled in rainy or stormy conditions. To learn more about pediatric vaccinations (ages 5-11), we invite you to visit the [facility] webpage. https://www.[facility].org/pages/6296-Pmkap-Fldoqdkocgp-Ngtretcfzu-Qchrt-Zvc stions.htmlTo learn more about the COVID-19 vaccine, we invite you to visit the CDC website for a list of frequently asked questions. https://www.cdc.gov/coronavirus/2019-ncov/vaccines/faq.html [facility] Access Instructions: Stay connected with your healthcare team and access your personal medical information anytime with the [facility] Portal. If you would like a full copy of your medical records please contact the [facility] Medical Records Department Friday through Friday between 8a.m. and 4:30p.m. Please follow the directions below to access the portal: 1.Access the email account you provided upon registration to the hospital.2.Look for an invitation email from [facility].3.Open the email and access the invitation link: [facility].Fill in the required luis to create your account. Sign into [email or web address] with your username and password that you created in the above steps to stay up to date. You can then view a summary of results, a summary of your visits, and the ability to download your summaries to your computer or send the information securely to a physician. Remember that your healthcare information is confidential, so carefully consider who you will allow to register on the [facility] Patient Portal for access to your information. You can also access the [facility] Patient Portal on the [employer]. Simply click on Health Records under [employer] and then click on the [facility] logo. HOW TO SAFELY DISPOSE OF PRESCRIPTION MEDICATIONS Please use one of the following methods to safely dispose of your unused medications. 1.Use a drug disposal kit: the drug disposal pouch allows you to safely discard your old and unuseddrugs. Ask your nurse to give you one when you are discharged.2.Visit a local take-back location: Many local pharmacies and police departments have programs that collect old and unwanted prescriptiondrugs. Call your local pharmacy or go to http://Kardium.Golgi/3A1Rd4m to find one close to you.3.Make use of household items: Use cat litter or old coffee grounds to dispose medications if other options arenot available. Mix your drugs with these household products, seal them in an airtight container andthrow it into the garbage. Call [facility]: [phone] to be sure your drugs can be disposed of in this way. Some medicines may require a different approach.4.Never flush your medications down the toilet. IF YOU HAVE BEEN PRESCRIBED AN OPIOIDS FOR PAIN If you have been prescribed an opioid (such as hydrocodone, oxycodone or morphine), it is critical to understand the possible side effects and risks of opioid pain medications. Even when taken as directed, opioids can have several side effects including: Tolerance, meaning you might need to take more of a medication for the same pain relief. Nausea, vomiting and/or constipation. Sleepiness, dizziness, dry mouth, confusion, depression or itching. Physical dependence, meaning you have withdrawal symptoms when a medication is stopped ? this can develop within a few days. KNOW YOUR RESPONSIBILITIES It is important to know exactly how much and how often to take the opioid pain medications you are prescribed. Never take opioids in higher amounts or more often than prescribed. Do not combine opioids with alcohol or other drugs that cause drowsiness, such as benzodiazepines, also known as benzos,including diazepam and alprazolam, muscle relaxants or sleep aids. Never sell or share prescriptionopioids. This is illegal. Store opioids in a secure place and out of reach of others (including children, family, friends and visitors). The last page(s) of this document has been signed and retained as a CHART COPY Signatures Patient Education Materials Wrist Sprain Wrist Sprain Medication Leaflets My discharge plan and instructions have been reviewed and explained to me and I,CARLITOS SWEENEY understand my current condition and have read and understand these discharge instructions. I have received a written copy of the plan/instructions. If I have questions, I am aware that I should contact my doc tor. 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 The joint spaces are maintained. Maintained carpal arcs.. No radiopaque retained foreign body or appreciable soft tissue swelling. Vascular calcifications. IMPRESSION: No acute fracture or dislocation. I have personally reviewed the images of this examination and agree with the resident's findings and interpretation. Interpreted by: Bernabe Long Preliminary Report By: Elder Fuller Electronically signed By Bernabe Long Dictated Date: 01/16/2023 5:08:21 PM Prelim Date: 01/16/2023 5:10:43 PM Sign Date: 01/16/2023 5:34:20 PM Ordering Provider: [facility]07-08-2023 Hospital Discharge instructions Patient Education 12/28/2022 16:45:01 Measuring Your Pain Measuring Your Pain A pain scale helps you rate pain intensity. In the scale, 0 means no pain, and 10 is the worst painpossible. Pain scales are not used to compare your pain with another person's pain. A pain scale isused only to measure how your pain changes for you. You should rate your pain every few hours. You may feel some pain even with medicines. It is important to tell your healthcare provider if medicines don't reduce the pain. Be sure to mention if the pain suddenly increases or changes. Keep track of your pain each day. You might copy the pain journal on this page or use a small notebook. Show the journal to your healthcare provider. 4041-2301 [employer]. [address] [place] [address]. All rights reserved. This information is not intended as a substitute for professional medical care. Always follow yourhealthcare professional's instructions. Follow Up Care 12/28/2022 15:52:16 With:ODILIA GRIGSBY DPM, Surgery Address: [address] [place] [address], [address] [facility] [place] [address]- When:2-4 days With:Go to emergency room if symptoms worsen Address:Unknown When:2-4 days With:TOM CONTE MD Address: [address] [place] [id number]- When:2-4 days [facility] 07-08-2023 Emergency department Discharge summary Discharge Instructions Thank you for allowing [facility] to assist you with your healthcare needs. The following is importantdischarge information regarding your hospital visit. Diagnosis from Today's Visit Foot pain What to Do Next Instructions from Your Care Team Take Tylenol as needed for pain. Not exceed the recommended dose. Recommend rest, ice, compression,and elevation as needed. Follow-up with Dr. Carmelina Nuno podiatry if continued pain. Follow-up with your primary care provider. Return emergency department if experience worsening symptoms or any other care concern. No qualifying data available. Post Acute Orders No qualifying data available. You Need to Schedule the Following Appointments Follow Up with ODILIA GRIGSBY DPM, Surgery When Within 2-4 days Where: [address], [address] [facility] [place] [address]- Follow Up with Go to emergency room if symptoms worsen When Within 2-4 days Follow Up with TOM CONTE MD When Within 2-4 days Where: [address] [place] [address]- Allergies penicillin (Anaphylaxis, rash) Contrast dye (Skin rash, Fever) cyclobenzaprine (Skin rash) traMADol (Skin rash) Medications Please ask your primary doctor or pharmacist before taking any other medication not listed, including over the counter drugs, herbal medications, vitamins and or supplements as they may interact withyour home medications. What How Much When Why Instructions Last Dose Unchanged acetaminophen (acetaminophen 325 mg oral capsule) 2 cap by mouth Every 4 hours as needed for for pain Unchanged atorvastatin (atorvastatin 40 mg oral tablet) 1 tab(s) by mouth Once a day Duration: 30 Days Unchanged baclofen (baclofen 10 mg oral tablet) 1 tab(s) by mouth Three (3) times a day Duration: 7 Days Unchanged busPIRone (busPIRone 5 mg oral tablet) 1 tab(s) by mouth Three (3) times a day Unchanged calcium acetate (calcium acetate 667 mg oral capsule) 4 cap by mouth Three (3) times a day with meals Unchanged carvedilol (Coreg 3.125 mg oral tablet) 1 tab(s) by mouth Twice daily with meals Duration: 30 Days Unchanged hydrALAZINE (hydrALAZINE 50 mg oral tablet) 1 tab(s) by mouth Three (3) times a day Unchanged hydrOXYzine (hydrOXYzine hydrochloride 25 mg oral tablet) 1 tab(s) by mouth Three (3) times a day as needed for as needed for itching Unchanged isosorbide mononitrate (isosorbide mononitrate 30 mg oral tablet, extended release) 1 tab(s) by mouth Once a day before a meal Duration: 30 Days Unchanged lidocaine topical (Lidoderm 5% topical patch) 1 patch(es) Transdermal Once a day Duration: 30 Days Unchanged predniSONE (predniSONE 10 mg oral tablet) 4 tab(s) by mouth Once a day Duration: 5 Days Unchanged sevelamer (Renvela 800 mg oral tablet (NF)) 1 tab(s) by mouth Three (3) times a day with meals Unchanged tiZANidine (tiZANidine 2 mg oral tablet) 1 tab(s) by mouth Every 8 hours Chest pain Please take this list to your next doctor s visit. Bring all medications you take, including over the counter medications, herbals and other supplements with you to your doctor s visit. Patients and families are reminded to discard old lists and to update any records with all medication providers or retail pharmacies. Education Materials Measuring Your Pain A pain scale helps you rate pain intensity. In the scale, 0 means no pain, and 10 is the worst painpossible. Pain scales are not used to compare your pain with another person's pain. A pain scale isused only to measure how your pain changes for you. You should rate your pain every few hours. You may feel some pain even with medicines. It is important to tell your healthcare provider if medicines don't reduce the pain. Be sure to mention if the pain suddenly increases or changes. Keep track of your pain each day. You might copy the pain journal on this page or use a small notebook. Show the journal to your healthcare provider. [phone] [employer]. [address] [place] [address], [place] [phone]. All rights reserved. This information is not intended as a substitute for professional medical care. Always follow yourhealthcare professional's instructions. Additional Information VACCINATE! IT SAVES LIVES! Members of the community who have not yet received the COVID-19 vaccine and would like to receive it can visit one of [facility] vaccine clinics. There are many vaccine clinic locations within the [facility]. For locations and available times, please visit www.gettheshot.coronavirus.[place].gov/. It is important to note that some COVID mobile vaccine clinics are held outdoors and may be canceled in rainy or stormy conditions. To learn more about pediatric vaccinations (ages 5-11), we invite you to visit the [facility] webpage. https://www.[email or web address]/pages/[email or web address]-[email or web address]-[email or web address] stions.htmlTo learn more about the COVID-19 vaccine, we invite you to visit the CDC website for a list of frequently asked questions. https://www.cdc.gov/coronavirus/2019-ncov/vaccines/faq.html [facility] Patient Portal Access Instructions: Stay connected with your healthcare team and access your personal medical information anytime with the [facility] Patient Portal. If you would like a full copy of your medical records please contact the [facility] Medical Records Department Friday through Friday between 8a.m. and 4:30p.m. Please follow the directions below to access the portal: 1.Access the email account you provided upon registration to the [facility].2.Look for an invitation email from [facility].3.Open the email and access the invitation link: Accept Invitation to [facility].Fill in the required luis to create your account. Sign into [email or web address] with your username and password that you created in the above steps to stay up to date. You can then view a summary of results, a summary of your visits, and the ability to download your summaries to your computer or send the information securely to a physician. Remember that your healthcare information is confidential, so carefully consider who you will allow to register on the [facility] Patient Portal for access to your information. You can also access the [facility] Patient Portal on the [employer]. Simply click on Health Records under Identifiedta and then click on the [employer] logo. HOW TO SAFELY DISPOSE OF PRESCRIPTION MEDICATIONS Please use one of the following methods to safely dispose of your unused medications. 1.Use a drug disposal kit: the drug disposal pouch allows you to safely discard your old and unuseddrugs. Ask your nurse to give you one when you are discharged.2.Visit a local take-back location: Many local pharmacies and police departments have programs that collect old and unwanted prescriptiondrugs. Call your local pharmacy or go to http://bit.Golgi/9N8Re9o to find one close to you.3.Make use of household items: Use cat litter or old coffee grounds to dispose medications if other options arenot available. Mix your drugs with these household products, seal them in an airtight container andthrow it into the garbage. Call [facility]: [phone] to be sure your drugs can be disposed of in this way. Some medicines may require a different approach.4.Never flush your medications down the toilet. IF YOU HAVE BEEN PRESCRIBED AN OPIOIDS FOR PAIN If you have been prescribed an opioid (such as hydrocodone, oxycodone or morphine), it is critical to understand the possible side effects and risks of opioid pain medications. Even when taken as directed, opioids can have several side effects including: Tolerance, meaning you might need to take more of a medication for the same pain relief. Nausea, vomiting and/or constipation. Sleepiness, dizziness, dry mouth, confusion, depression or itching. Physical dependence, meaning you have withdrawal symptoms when a medication is stopped ? this can develop within a few days. KNOW YOUR RESPONSIBILITIES It is important to know exactly how much and how often to take the opioid pain medications you are prescribed. Never take opioids in higher amounts or more often than prescribed. Do not combine opioids with alcohol or other drugs that cause drowsiness, such as benzodiazepines, also known as benzos,including diazepam and alprazolam, muscle relaxants or sleep aids. Never sell or share prescriptionopioids. This is illegal. Store opioids in a secure place and out of reach of others (including children, family, friends and visitors). The last page(s) of this document has been signed and retained as a CHART COPY Signatures Patient Education Materials Measuring Your Pain Medication Leaflets My discharge plan and instructions have been reviewed and explained to me and IZAHRA CHAD K understand my current condition and have read and understand these discharge instructions. I have received a written copy of the plan/instructions. If I have questions, I am aware that I should contact my doc tor. 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 HISTORY: ORDERING SYSTEM PROVIDED HISTORY: Reason for Exam: pain FINDINGS: No acute fracture or dislocation. Chronic appearing irregularity of the big toe proximal phalanx distally, presumably degenerative. Peripheral vascular calcifications. No radiopaque foreign body IMPRESSION: No acute fracture or dislocation. Interpreted by: Lyle Mendenhall Preliminary Report By: Lyle Mendenhall Electronically signed By Lyle Mendenhall Dictated Date: 12/28/2022 5:48:21 PM Prelim Date: 12/28/2022 5:50:37 PM Sign Date: 12/28/2022 5:50:37 PM Ordering Provider: [facility]07-08-2023 Note ORIGINAL EXAMINATION: THREE XRAY VIEWS OF THE LEFT FOOT 12/28/2022 4:57 pm COMPARISON: None. HISTORY: ORDERING SYSTEM PROVIDED HISTORY: Reason for Exam: pain FINDINGS: No acute fracture or dislocation. Chronic appearing irregularity of the big toe proximal phalanx distally, presumably degenerative. Peripheral vascular calcifications. No radiopaque foreign body IMPRESSION: No acute fracture or dislocation. Interpreted by: Lyle Mendenhall Preliminary Report By: Lyle Mendenhall Electronically signed By Lyle Mendenhall Dictated Date: 12/28/2022 5:48:21 PM Prelim Date: 12/28/2022 5:50:37 PM Sign Date: 12/28/2022 5:50:37 PM Ordering Provider: [facility]06-19-2023 Hospital Discharge instructions Patient Education 12/09/2022 15:24:59 Sciatica Sciatica Sciatica is a condition that causes pain in the lower back that spreads down into the buttock, hip,and leg. Sometimes the leg pain can happen without any back pain. Sciatica happens when a spinal nerve is irritated or has pressure put on it as comes out of the spinal canal in the lower back. This most often happens when a bulge or rupture of a nearby spinal disk presses on the nerve. Sciatica can also be caused by a narrowing of the spinal canal (spinal stenosis) or spasm of the muscle in the buttocks that the sciatic nerve passes through (pyriform muscle). Sciatica is also called lumbar radiculopathy. Sciatica may begin after a sudden twisting or bending force, such as in a car accident. Or it can happen after a simple awkward movement. In either case, muscle spasm often also happens. Muscle spasmmakes the pain worse. A healthcare provider makes a diagnosis of sciatica from your symptoms and a physical exam. Unless you had an injury from a car accident or fall, you usually won t have X-rays taken at this time. This is because the nerves and disks in your back can t be seen on an X-ray. If the provider sees signsof a compressed nerve, you will need to schedule an MRI scan as an outpatient. Signs of a compressed nerve include loss of strength in a leg. Most sciatica gets better with medicine, exercise, and physical therapy. If your symptoms continue after at least 3 months of medical treatment, you may need surgery or injections to your lower back. Home care Follow these tips when caring for yourself at home: You may need to stay in bed the first few days. But as soon as possible, begin sitting up or walking. This will help you avoid problems that come from staying in bed for long periods. When in bed, try to find a position that is comfortable. A firm mattress is best. Try lying flat onyour back with pillows under your knees. You can also try lying on your side with your knees bent up toward your chest and a pillow between your knees. Avoid sitting for long periods. This puts more stress on your lower back than standing or walking. Use heat from a hot shower, hot bath, or heating pad to help ease pain. Massage can also help. You can also try using an ice pack. You can make your own ice pack by putting ice cubes in a plastic bag. Wrap the bag in a thin towel. Try both heat and cold to see which works best. Use the method that feels best for 20 minutes several times a day. You may use acetaminophen or ibuprofen to ease pain, unless another pain medicine was prescribed. Note: If you have chronic liver or kidney disease, talk with your healthcare provider before taking these medicines. Also talk with your provider if you ve had a stomach ulcer or gastrointestinal bleeding. Use safe lifting methods. Don t lift anything heavier than 15 pounds until all of the pain is gone. Follow-up care Follow up with your healthcare provider, or as advised. You may need physical therapy or additionaltests. If X-rays were taken, a radiologist will look at them. You will be told of any new findings that may affect your care. When to seek medical advice Call your healthcare provider right away if any of these occur: Pain gets worse even after taking prescribed medicine Weakness or numbness in 1 or both legs or hips Numbness in your groin or genital area You can t control your bowel or bladder Fever Redness or swelling over your back or spine [id number] [employer]. [address] [place] [address]. All rights reserved. This information is not intended as a substitute for professional medical care. Always follow yourhealthcare professional's instructions. Follow Up Care 12/09/2022 14:12:15 With:TOM CONTE MD Address: [address], [place] [id number]- When:2-4 days [facility] 06-19-2023 Note Discharge Instructions Thank you for allowing [facility] to assist you with your healthcare needs. The following is importantdischarge information regarding your hospital visit. Diagnosis from Today's Visit Leg pain-swelling Sciatic pain What to Do Next Instructions from Your Care Team No qualifying data available. Post Acute Orders No qualifying data available. You Need to Schedule the Following Appointments Follow Up with TOM CONTE MD When Within 2-4 days Where: [address] [place] [address]- Allergies penicillin (Anaphylaxis, rash) Contrast dye (Skin rash, Fever) cyclobenzaprine (Skin rash) traMADol (Skin rash) Medications Please ask your primary doctor or pharmacist before taking any other medication not listed, including over the counter drugs, herbal medications, vitamins and or supplements as they may interact withyour home medications. What How Much When Why Instructions Last Dose New acetaminophen-hydrocodone (Norman 325- 5 mg oral tablet) 1 tab(s) by mouth Every 8 hours as needed for as needed for pain Sciatic pain Duration: 3 Days Printed Prescription New baclofen (baclofen 10 mg oral tablet) 1 tab(s) by mouth Three (3) times a day Duration: 7 Days Printed Prescription New lidocaine topical (Lidoderm 5% topical patch) 1 patch(es) Transdermal Once a day Duration: 30 Days Printed Prescription New predniSONE (predniSONE 10 mg oral tablet) 4 tab(s) by mouth Once a day Duration: 5 Days Printed Prescription Unchanged acetaminophen (acetaminophen 325 mg oral capsule) 2 cap by mouth Every 4 hours as needed for for pain Unchanged atorvastatin (atorvastatin 40 mg oral tablet) 1 tab(s) by mouth Once a day Duration: 30 Days Unchanged busPIRone (busPIRone 5 mg oral tablet) 1 tab(s) by mouth Three (3) times a day Unchanged calcium acetate (calcium acetate 667 mg oral capsule) 4 cap by mouth Three (3) times a day with meals Unchanged carvedilol (Coreg 3.125 mg oral tablet) 1 tab(s) by mouth Twice daily with meals Duration: 30 Days Unchanged hydrALAZINE (hydrALAZINE 50 mg oral tablet) 1 tab(s) by mouth Three (3) times a day Unchanged hydrOXYzine (hydrOXYzine hydrochloride 25 mg oral tablet) 1 tab(s) by mouth Three (3) times a day as needed for as needed for itching Unchanged isosorbide mononitrate (isosorbide mononitrate 30 mg oral tablet, extended release) 1 tab(s) by mouth Once a day before a meal Duration: 30 Days Unchanged sevelamer (Renvela 800 mg oral tablet (NF)) 1 tab(s) by mouth Three (3) times a day with meals Unchanged tiZANidine (tiZANidine 2 mg oral tablet) 1 tab(s) by mouth Every 8 hours Chest pain Please take this list to your next doctor s visit. Bring all medications you take, including over the counter medications, herbals and other supplements with you to your doctor s visit. Patients and families are reminded to discard old lists and to update any records with all medication providers or retail pharmacies. Medication Leaflets prednisone (PRED ni sone) [place] What is the most important information I should know about prednisone? You should not use prednisone if you have a fungal infection anywhere in your body. You should not stop using prednisone suddenly. Follow your doctor's instructions about tapering your dose. What is prednisone? Prednisone is a steroid that reduces inflammation in the body, and also suppresses your immune system. Prednisone is used to treat many different conditions such as hormonal disorders, skin diseases, arthritis, lupus, psoriasis, allergic conditions, ulcerative colitis, Crohn's disease, eye diseases, lung diseases, asthma, tuberculosis, blood cell disorders, kidney disorders, leukemia, lymphoma, multi ple sclerosis, organ transplant rejection, swelling from a brain tumor or injury. Prednisone may also be used for purposes not listed in this medication guide. What should I discuss with my healthcare provider before taking prednisone? You should not use prednisone if you are allergic to it, or if you have a fungal infection anywherein your body. Steroid medication can weaken your immune system, making it easier for you to get an infection or worsening an infection you already have. Tell your doctor about any illness or infection you've had within the past several weeks. Tell your doctor if you have ever had: heart problems, high blood pressure, or a heart attack; glaucoma or cataracts; herpes infection of the eyes; past or present tuberculosis; a parasite infection that causes diarrhea (such as threadworms); any illness that causes diarrhea; underactive thyroid; diabetes; a stomach ulcer, diverticulitis; a colostomy or ileostomy; osteoporosis or low bone mineral density (steroid medication can increase your risk of bone loss); low levels of calcium or potassium in your blood; cirrhosis or other liver disease; mental illness or psychosis; or a muscle disorder such as myasthenia gravis. Long-term use of steroids may lead to bone loss (osteoporosis), especially if you smoke or drink alcohol, if you do not exercise, or if you do not get enough vitamin D or calcium in your diet. It is not known whether this medicine will harm an unborn baby. Tell your doctor if you are or plan to become . You should not breastfeed while using prednisone. How should I take prednisone? Follow all directions on your prescription label and read all medication guides or instruction sheets. Your doctor may occasionally change your dose. Use the medicine exactly as directed. Prednisone is taken daily or every other day, depending on the condition being treated. You may need to take the medicine at a certain time of day. Follow your doctor's instructions about when and how often to take this medicine. Take with food if prednisone upsets your stomach. Measure liquid medicine carefully. Use the dosing syringe provided, or use a medicine dose-measuring device (not a kitchen spoon). Swallow the delayed-release tablet whole and do not crush, chew, or break it. Prednisone can weaken (suppress) your immune system, and you may get an infection more easily. Callyour doctor if you have signs of infection (fever, weakness, cold or flu symptoms, skin sores, diarrhea, frequent or recurring illness). If you have major surgery or a severe injury or infection, your prednisone dose needs may change. Make sure any doctor caring for you knows you are using this medicine. If you use this medicine long-term, you may need medical tests and vision exams. In case of emergency, wear or carry medical identification to let others know you use a steroid. You should not stop using prednisone suddenly. Follow your doctor's instructions about tapering your dose. Store at room temperature away from moisture, heat, and light. What happens if I miss a dose? Take the medicine as soon as you can, but skip the missed dose if it is almost time for your next dose. Do not take two doses at one time. What happens if I overdose? Seek emergency medical attention or call the Poison Help line at . High doses or long-term use of prednisone can lead to thinning skin, easy bruising, changes in bodyfat (especially in your face, neck, back, and waist), increased acne or facial hair, menstrual problems, impotence, or loss of interest in sex. What should I avoid while taking prednisone? Do not receive a 'live' vaccine while using prednisone. The vaccine may not work as well and may not fully protect you from disease. Live vaccines include measles, mumps, rubella (MMR), polio, rotavirus, typhoid, yellow fever, varicella (chickenpox), zoster (shingles), and nasal flu (influenza) vaccine. Avoid being near people who are sick or have infections. Call your doctor for preventive treatment if you are exposed to chickenpox or measles. These conditions can be serious or even fatal in peoplewho are using steroid medicine. Avoid drinking alcohol. What are the possible side effects of prednisone? Get emergency medical help if you have signs of an allergic reaction: hives; difficult breathing; swelling of your face, lips, tongue, or throat. Call your doctor at once if you have: muscle pain or weakness; blurred vision, tunnel vision, eye pain, or seeing halos around lights; severe depression, changes in personality, unusual thoughts or behavior; bloody or tarry stools, coughing up blood or vomit that looks like coffee grounds; swelling, rapid weight gain, feeling short of breath; irregular heartbeats; severe headache, pounding in your neck or ears; decreased adrenal gland hormones--muscle weakness, tiredness, diarrhea, nausea, menstrual changes, skin discoloration, craving salty foods, and feeling light- headed; or low potassium level--leg cramps, constipation, irregular heartbeats, fluttering in your chest, increased thirst or urination, numbness or tingling, muscle weakness or limp feeling. Prednisone can affect growth in children. Tell your doctor if your child is not growing at a normalrate while using this medicine. Common side effects may include: weight gain (especially in your face or your upper back and torso); increased appetite; mood changes, trouble sleeping; changes in your menstrual periods; problems with memory or thought; muscle or joint pain; weakness; headache, dizziness, spinning sensation; nausea, bloating, loss of appetite; slow wound healing; or acne, increased sweating, thinning skin, bruising, pinpoint spots under your skin. This is not a complete list of side effects and others may occur. Call your doctor for medical advice about side effects. You may report side effects to FDA at 9-123-QEA-5817. What other drugs will affect prednisone? Sometimes it is not safe to use certain medications at the same time. Some drugs can affect your blood levels of other drugs you take, which may increase side effects or make the medications less effective. Tell your doctor about all your current medicines. Many drugs can affect prednisone, especially: bupropion; cyclosporine; digoxin; ketoconazole; an antibiotic; control pills or hormone replacement therapy; a diuretic or 'water pill'; insulin or oral diabetes medicine; a blood thinner--warfarin, Coumadin, Jantoven; or NSAIDs (nonsteroidal anti-inflammatory drugs)--aspirin, ibuprofen (Advil, Motrin), naproxen (Aleve), celecoxib, diclofenac, indomethacin, meloxicam, and others. This list is not complete and many other drugs may affect prednisone. This includes prescription and oeym-ofg-wlrymzz medicines, vitamins, and herbal products. Not all possible drug interactions are listed here. Where can I get more information? Your pharmacist can provide more information about prednisone. Remember, keep this and all other medicines out of the reach of children, never share your medicines with others, and use this medication only for the indication prescribed. Every effort has been made to ensure that the information provided by [employer]. ('[employer]') is accurate, up-to-date, and complete, but no guarantee is made to that effect. Drug information contained herein may be time sensitive. [employer] information has been compiled for use by healthcare practitioners and consumers in the [place] and therefore [employer] does not warrant that uses outside of the [place] are appropriate, unless specifically indicated otherwise. [employer] drug information does not endorse drugs, diagnose patients or recommend therapy. [employer] drug information isan informational resource designed to assist licensed healthcare practitioners in caring for their p atients and/or to serve consumers viewing this service as a supplement to, and not a substitute for, the expertise, skill, knowledge and judgment of healthcare practitioners. The absence of a warningfor a given drug or drug combination in no way should be construed to indicate that the drug or drug combination is safe, effective or appropriate for any given patient. [employer] does not assume any responsibility for any aspect of healthcare administered with the aid of information [employer] provides. The information contained herein is not intended to cover all possible uses, directions, precautions, warnings, drug interactions, allergic reactions, or adverse effects. If you have questions about the drugs you are taking, check with your doctor, nurse or pharmacist. Copyright 4953-5236 [employer]. Version: 10.. Revision Date: 09/17/2018. baclofen (oral) (FARHAN lewis fen) FIRST Baclofen, Fleqsuvy, Lyvispah, Ozobax What is the most important information I should know about baclofen? Use only as directed. Tell your doctor if you use other medicines or have other medical conditions or allergies. What is baclofen? Baclofen is used in adults and children at least 12 years old to treat muscle pain, spasms, and stiffness in people with multiple sclerosis or spinal cord injury or disease. Baclofen may also be used for purposes not listed in this medication guide. What should I discuss with my healthcare provider before taking baclofen? You should not use baclofen if you are allergic to it. Tell your doctor if you have ever had: mental illness or psychosis; epilepsy or other seizure disorder; problems with balance; high blood pressure, or fast heart rate; a stroke or blood clot; or kidney disease. Using baclofen may increase your risk of developing an ovarian cyst. Talk with your doctor about your own risk. Tell your doctor if you are or plan to become , or or plan to breastfeed. If you take baclofen while or , withdrawal symptoms such as tremors, stiff muscles, or seizure may occur in the baby. How should I take baclofen? Follow all directions on your prescription label and read all medication guides or instruction sheets. Your doctor may occasionally change your dose. Use the medicine exactly as directed. Shake the oral suspension (liquid). Measure a dose with the supplied measuring device (not a kitchen spoon). Shake and pour the entire oral granules packet to dissolve in your mouth or swallow whole at once, with or without liquids. You may also mix the granules with liquids (milk, or apple juice) or soft food (apple sauce, yogurt, or pudding). The oral granules can also be given through a feeding tube. Ask your doctor or pharmacist if you donot understand these instructions. Call your doctor if your symptoms do not improve, or if they get worse. You may have withdrawal symptoms if you stop using baclofen suddenly. Ask your doctor before stopping the medicine. Store the oral suspension (liquid) at room temperature away from moisture and heat. Throw Fleqsuvy away after 2 months of first opening. Store Ozobax in the refrigerator, do not freeze. What happens if I miss a dose? Take the medicine as soon as you can, but skip the missed dose if it is almost time for your next dose. Do not take two doses at one time. What happens if I overdose? Seek emergency medical attention or call the Poison Help line at . Overdose symptoms may include increasing drowsiness, dizziness, sleepiness, trouble focusing on objects, shallow breathing, seizure, or muscle weakness leading to loss of consciousness. What should I avoid while taking baclofen? Avoid drinking alcohol. Avoid driving or hazardous activity until you know how this medicine will affect you. Your reactions could be impaired. Do not share this medicine with another person, even if they have the same symptoms you have. What are the possible side effects of baclofen? Get emergency medical help if you have signs of an allergic reaction: hives; difficult breathing; swelling of your face, lips, tongue, or throat. Call your doctor at once if you have: severe drowsiness, breathing problems; confusion, hallucinations; muscle weakness, itching, tingling, or twitching in your hands, arms, feet, or legs; or fever. Common side effects may include: drowsiness, dizziness, weakness, or tiredness. This is not a complete list of side effects and others may occur. Call your doctor for medical advice about side effects. You may report side effects to FDA at 3-941-KEM-2437. What other drugs will affect baclofen? Using baclofen with other drugs that make you drowsy can worsen this effect. Ask your doctor beforeusing opioid medication, a sleeping pill, a muscle relaxer, or medicine for anxiety or seizures. Other drugs may affect baclofen, including prescription and rixh-rgh-ibmtuwh medicines, vitamins, and herbal products. Tell your doctor about all other medicines you use. Where can I get more information? Your doctor or pharmacist can provide more information about baclofen. Remember, keep this and all other medicines out of the reach of children, never share your medicines with others, and use this medication only for the indication prescribed. Every effort has been made to ensure that the information provided by [employer]') is accurate, up-to-date, and complete, but no guarantee is made to that effect. Drug information contained herein may be time sensitive. [employer] information has been compiled for use by healthcare practitioners and consumers in the [place] and therefore [employer] does not warrant that uses outside of the [place] are appropriate, unless specifically indicated otherwise. [employer] drug information does not endorse drugs, diagnose patients or recommend therapy. [employer] drug information isan informational resource designed to assist licensed healthcare practitioners in caring for their p atients and/or to serve consumers viewing this service as a supplement to, and not a substitute for, the expertise, skill, knowledge and judgment of healthcare practitioners. The absence of a warningfor a given drug or drug combination in no way should be construed to indicate that the drug or drug combination is safe, effective or appropriate for any given patient. [facility] does not assume any responsibility for any aspect of healthcare administered with the aid of information [facility] provides. The information contained herein is not intended to cover all possible uses, directions, precautions, warnings, drug interactions, allergic reactions, or adverse effects. If you have questions about the drugs you are taking, check with your doctor, nurse or pharmacist. Copyright [id number] [facility]. Version: 9.01. Revision Date: 09/23/2022. lidocaine topical (LYE strauss douglas TOP i terry) AneCream, Bactine, Glydo, LidaMantle, Lidoderm, LidoRx, Medi-Quik Lyons, RadiaGuard, RectiCare, Regenecare JACKSON Lyons, Solarcaine Cool Aloe What is the most important information I should know about lidocaine topical? An overdose of numbing medicine can cause fatal side effects if too much of the medicine is absorbed through your skin. Do not use large amounts of lidocaine topical, or cover treated skin areas with a bandage or plastic wrap without medical advice. Keep both used and unused lidocaine skin patches out of the reach of children or pets. The amount of lidocaine in the skin patches could be harmful to a child or pet who accidentally sucks on or swallows the patch. What is lidocaine topical? Lidocaine is a local anesthetic (numbing medication). There are many brands and forms of lidocaine available. Not all brands are listed on this leaflet. Lidocaine topical (for use on the skin) is used to reduce pain or discomfort caused by skin irritations such as sunburn, insect bites, poison maria esther, poison oak, poison sumac, and minor cuts, scratches,or gallegos. Lidocaine topical is also used to treat rectal discomfort caused by hemorrhoids. Lidocaine intradermal device can be used in minor medical procedures such as venipuncture or peripheral intravenous cannulation. Lidocaine topical may also be used for purposes not listed in this medication guide. What should I discuss with my healthcare provider before using lidocaine topical? You should not use lidocaine topical if you are allergic to any type of numbing medicine. Fatal overdoses have occurred when numbing medicines were used without the advice of a medical doctor (such as during a cosmetic procedure like laser hair removal). However, overdose has also occurred in women treated with a numbing medicine before having a mammography. Be aware that many cosmetic procedures are performed without a medical doctor present. Tell your doctor if you have ever had: a blood cell disorder called methemoglobinemia (in you or a family member); liver disease; or if you take a heart rhythm medicine. Tell your doctor if you are or . If you apply lidocaine topical to your chest, avoid areas that may come into contact with the baby's mouth. How should I use lidocaine topical? Use this medicine exactly as directed on the label, or as it has been prescribed by your doctor. Donot apply this medicine in larger amounts than recommended. Improper use of lidocaine topical may result in . Lidocaine topical comes in many different forms (gel, spray, cream, lotion, ointment, liquid, skin patch, and others). Do not take by mouth. Topical medicine is for use only on the skin. If this medicine gets in your eyes, nose, mouth, rectum, or vagina, rinse with water. Read and carefully follow any Instructions for Use provided with your medicine. Ask your doctor or pharmacist if you do not understand these instructions. Use the smallest amount of medicine needed to numb the skin or relieve pain. Your body may absorb too much of this medicine if you use too much, if you apply it over large skin areas, or if you apply heat, bandages, or plastic wrap to treated skin areas. Skin that is cut or irritated may also absorb more topical medication than healthy skin. Do not apply this medicine to swollen skin areas or deep puncture wounds. Avoid using the medicine on skin that is raw or blistered, such as a severe burn or abrasion. Do not cover treated skin unless your doctor has told you to. Lidocaine topical may be applied with your finger tips or a cotton swab. Lidocaine intradermal device is applied by a healthcare provider. Store at room temperature away from moisture and heat. Keep both used and unused lidocaine topical skin patches out of the reach of children or pets. The amount of lidocaine in the skin patches could be harmful to a child or pet who accidentally sucks onor swallows the patch. Seek emergency medical attention if this happens. What happens if I miss a dose? Since lidocaine topical is used when needed, you may not be on a dosing schedule. Skip any missed dose if it's almost time for your next dose. Do not use two doses at one time. What happens if I overdose? Seek emergency medical attention or call the Poison Help line at . An overdose of numbing medicine can cause fatal side effects if too much of the medicine is absorbed through your skinand into your blood. Overdose symptoms may include uneven heartbeats, seizure (convulsions), slowed breathing, coma, or respiratory failure (breathing stops). Lidocaine applied to the skin is not likely to cause an overdose unless you apply more than the recommended dose. What should I avoid while using lidocaine topical? Avoid touching the sticky side of a lidocaine skin patch while applying it. Avoid accidentally injuring treated skin areas while they are numb. Avoid coming into contact with very hot or very cold surfaces. What are the possible side effects of lidocaine topical? Get emergency medical help if you have signs of an allergic reaction: hives; difficulty breathing; swelling of your face, lips, tongue, or throat. Call your doctor at once if you have: severe headache or vomiting; severe burning, stinging, or irritation where the medicine was applied; swelling or redness; sudden dizziness or drowsiness after medicine is applied; confusion, problems with speech or vision, ringing in your ears; or unusual sensations of temperature. Common side effects include: mild irritation where the medication is applied; or numbness in places where the medicine is accidentally applied. This is not a complete list of side effects and others may occur. Call your doctor for medical advice about side effects. You may report side effects to FDA at 4-433-VLM-8983. What other drugs will affect lidocaine topical? Medicine used on the skin is not likely to be affected by other drugs you use. But many drugs can interact with each other. Tell each of your health care providers about all medicines you use, including prescription and gxfw-bur-pjpbyly medicines, vitamins, and herbal products. Where can I get more information? Your pharmacist can provide more information about lidocaine topical. Remember, keep this and all other medicines out of the reach of children, never share your medicines with others, and use this medication only for the indication prescribed. Every effort has been made to ensure that the information provided by [employer] is accurate, up-to-date, and complete, but no guarantee is made to that effect. Drug information contained herein may be time sensitive. [employer] information has been compiled for use by healthcare practitioners and consumers in the [place] and therefore [employer] does not warrant that uses outside of the [place] are appropriate, unless specifically indicated otherwise. [facility] drug information does not endorse drugs, diagnose patients or recommend therapy. [employer] drug information isan informational resource designed to assist licensed healthcare practitioners in caring for their p atients and/or to serve consumers viewing this service as a supplement to, and not a substitute for, the expertise, skill, knowledge and judgment of healthcare practitioners. The absence of a warningfor a given drug or drug combination in no way should be construed to indicate that the drug or drug combination is safe, effective or appropriate for any given patient. [employer] does not assume any responsibility for any aspect of healthcare administered with the aid of information [employer] provides. The information contained herein is not intended to cover all possible uses, directions, precautions, warnings, drug interactions, allergic reactions, or adverse effects. If you have questions about the drugs you are taking, check with your doctor, nurse or pharmacist. Copyright [id number] [employer]. Version: 9.02. Revision Date: 11/06/2021. acetaminophen and hydrocodone (a SEET a MIN oh fen and kaiser droe KOE done) Hycet, Lorcet, Norman, Verdrocet, Vicodin, Xodol, Zamicet What is the most important information I should know about acetaminophen and hydrocodone? MISUSE OF OPIOID MEDICINE CAN CAUSE ADDICTION, OVERDOSE, OR . Keep the medication in a place where others cannot get to it. Taking opioid medicine during may cause life-threatening withdrawal symptoms in the . Fatal side effects can occur if you use opioid medicine with alcohol, or with other drugs that cause drowsiness or slow your breathing. Stop taking this medicine and call your doctor right away if you have skin redness or a rash that spreads and causes blistering and peeling. What is acetaminophen and hydrocodone? Acetaminophen and hydrocodone is a combination medicine used to relieve moderate to severe pain. Acetaminophen and hydrocodone contains an opioid medicine, and may be habit-forming. Acetaminophen and hydrocodone may also be used for purposes not listed in this medication guide. What should I discuss with my healthcare provider before taking acetaminophen and hydrocodone? You should not use this medicine if you are allergic to acetaminophen or hydrocodone, or if you have: severe asthma or breathing problems; or a blockage in your stomach or intestines. Tell your doctor if you have ever had: breathing problems, sleep apnea (breathing stops during sleep); liver disease; a drug or alcohol addiction; kidney disease; a head injury or seizures; urination problems; or problems with your thyroid, pancreas, or gallbladder. If you use opioid medicine while you are , your baby could become dependent on the drug. This can cause life-threatening withdrawal symptoms in the baby after it is born. Babies born dependent on opioids may need medical treatment for several weeks. Ask a doctor before using opioid medicine if you are . Tell your doctor if you notice severe drowsiness or slow breathing in the nursing baby. How should I take acetaminophen and hydrocodone? Follow all directions on your prescription label. Never take this medicine in larger amounts, or for longer than prescribed. An overdose can damage your liver or cause . Tell your doctor if you feel an increased urge to use more of this medicine. Never share this medicine with another person, especially someone with a history of drug abuse or addiction. MISUSE CAN CAUSE ADDICTION, OVERDOSE, OR . Keep the medicine in a place where others cannot get to it. Selling or giving away this medicine is against the law. Measure liquid medicine carefully. Use the dosing syringe provided, or use a medicine dose-measuring device (not a kitchen spoon). If you need surgery or medical tests, tell the doctor ahead of time that you are using this medicine. You should not stop using this medicine suddenly. Follow your doctor's instructions about tapering your dose. Store at room temperature away from moisture and heat. Keep track of your medicine. You should be aware if anyone is using it improperly or without a prescription. Do not keep leftover opioid medication. Just one dose can cause in someone using this medicine accidentally or improperly. Ask your pharmacist where to locate a drug take-back disposal program.If there is no take-back program, flush the unused medicine down the toilet. What happens if I miss a dose? Since this medicine is used for pain, you are not likely to miss a dose. Skip any missed dose if itis almost time for your next dose. Do not use two doses at one time. What happens if I overdose? Seek emergency medical attention or call the Poison Help line at . An overdose of this medicine can be fatal, especially in a child or other person using the medicine without a prescription. Overdose symptoms may include nausea, vomiting, sweating, severe drowsiness, pinpoint pupils, slow breathing, or no breathing. Your doctor may recommend you get naloxone (a medicine to reverse an opioid overdose) and keep it with you at all times. A person caring for you can give the naloxone if you stop breathing or don't wake up. Your caregiver must still get emergency medical help and may need to perform CPR (cardiopulmonary resuscitation) on you while waiting for help to arrive. Anyone can buy naloxone from a pharmacy or local health department. Make sure any person caring foryou knows where you keep naloxone and how to use it. What should I avoid while taking acetaminophen and hydrocodone? Avoid driving or operating machinery until you know how this medicine will affect you. Dizziness ordrowsiness can cause falls, accidents, or severe injuries. Do not drink alcohol. Dangerous side effects or could occur. Ask a doctor or pharmacist before using any other medicine that may contain acetaminophen (sometimes abbreviated as APAP). Taking certain medications together can lead to a fatal overdose. What are the possible side effects of acetaminophen and hydrocodone? Get emergency medical help if you have signs of an allergic reaction: hives; difficulty breathing; swelling of your face, lips, tongue, or throat. Opioid medicine can slow or stop your breathing, and may occur. A person caring for you should give naloxone and/or seek emergency medical attention if you have slow breathing with long pauses,blue colored lips, or if you are hard to wake up. In rare cases, acetaminophen may cause a severe skin reaction that can be fatal. This could occur even if you have taken acetaminophen in the past and had no reaction. Stop taking this medicine and call your doctor right away if you have skin redness or a rash that spreads and causes blistering andpeeling. Call your doctor at once if you have: noisy breathing, sighing, shallow breathing, breathing that stops; a light-headed feeling, like you might pass out; liver problems--nausea, upper stomach pain, tiredness, loss of appetite, dark urine, riley-colored stools, jaundice (yellowing of the skin or eyes); low cortisol levels-- nausea, vomiting, loss of appetite, dizziness, worsening tiredness or weakness; o high levels of serotonin in the body--agitation, hallucinations, fever, sweating, shivering, fast heart rate, muscle stiffness, twitching, loss of coordination, nausea, vomiting, diarrhea. Serious breathing problems may be more likely in older adults and in those who are debilitated or have wasting syndrome or chronic breathing disorders. Common side effects include: dizziness, drowsiness, feeling tired; nausea, vomiting, stomach pain; constipation; or headache. This is not a complete list of side effects and others may occur. Call your doctor for medical advice about side effects. You may report side effects to FDA at 8-823-WZD-3403. What other drugs will affect acetaminophen and hydrocodone? You may have breathing problems or withdrawal symptoms if you start or stop taking certain other medicines. Tell your doctor if you also use an antibiotic, antifungal medication, heart or blood pressure medication, seizure medication, or medicine to treat HIV or hepatitis C. Opioid medication can interact with many other drugs and cause dangerous side effects or . Be sure your doctor knows if you also use: cold or allergy medicines, bronchodilator asthma/COPD medication, or a diuretic ('water pill'); medicines for motion sickness, irritable bowel syndrome, or overactive bladder; other opioids--opioid pain medicine or prescription cough medicine; a sedative like Valium--diazepam, alprazolam, lorazepam, Xanax, Klonopin, Versed, and others; drugs that make you sleepy or slow your breathing--a sleeping pill, muscle relaxer, medicine to treat mood disorders or mental illness; drugs that affect serotonin levels in your body--a stimulant, or medicine for depression, Parkinson's disease, migraine headaches, serious infections, or nausea and vomiting. This list is not complete. Other drugs may affect acetaminophen and hydrocodone, including prescription and japy-bvn-lowsqaz medicines, vitamins, and herbal products. Not all possible interactions are listed here. Where can I get more information? Your doctor or pharmacist can provide more information about acetaminophen and hydrocodone. Remember, keep this and all other medicines out of the reach of children, never share your medicines with others, and use this medication only for the indication prescribed. Every effort has been made to ensure that the information provided by [employer] is accurate, up-to-date, and complete, but no guarantee is made to that effect. Drug information contained herein may be time sensitive. [employer] information has been compiled for use by healthcare practitioners and consumers in the [place] and therefore [employer] does not warrant that uses outside of the [place] are appropriate, unless specifically indicated otherwise. [employer] drug information does not endorse drugs, diagnose patients or recommend therapy. [employer] drug information isan informational resource designed to assist licensed healthcare practitioners in caring for their p atients and/or to serve consumers viewing this service as a supplement to, and not a substitute for, the expertise, skill, knowledge and judgment of healthcare practitioners. The absence of a warningfor a given drug or drug combination in no way should be construed to indicate that the drug or drug combination is safe, effective or appropriate for any given patient. [employer] does not assume any responsibility for any aspect of healthcare administered with the aid of information [employer] provides. The information contained herein is not intended to cover all possible uses, directions, precautions, warnings, drug interactions, allergic reactions, or adverse effects. If you have questions about the drugs you are taking, check with your doctor, nurse or pharmacist. Copyright [id number] [facility] [employer]. Version: 16.03. Revision Date: 07/25/2020. [employer] Sciatica Sciatica is a condition that causes pain in the lower back that spreads down into the buttock, hip,and leg. Sometimes the leg pain can happen without any back pain. Sciatica happens when a spinal nerve is irritated or has pressure put on it as comes out of the spinal canal in the lower back. This most often happens when a bulge or rupture of a nearby spinal disk presses on the nerve. Sciatica can also be caused by a narrowing of the spinal canal (spinal stenosis) or spasm of the muscle in the buttocks that the sciatic nerve passes through (pyriform muscle). Sciatica is also called lumbar radiculopathy. Sciatica may begin after a sudden twisting or bending force, such as in a car accident. Or it can happen after a simple awkward movement. In either case, muscle spasm often also happens. Muscle spasmmakes the pain worse. A healthcare provider makes a diagnosis of sciatica from your symptoms and a physical exam. Unless you had an injury from a car accident or fall, you usually won t have X-rays taken at this time. This is because the nerves and disks in your back can t be seen on an X-ray. If the provider sees signsof a compressed nerve, you will need to schedule an MRI scan as an outpatient. Signs of a compressed nerve include loss of strength in a leg. Most sciatica gets better with medicine, exercise, and physical therapy. If your symptoms continue after at least 3 months of medical treatment, you may need surgery or injections to your lower back. Home care Follow these tips when caring for yourself at home: You may need to stay in bed the first few days. But as soon as possible, begin sitting up or walking. This will help you avoid problems that come from staying in bed for long periods. When in bed, try to find a position that is comfortable. A firm mattress is best. Try lying flat onyour back with pillows under your knees. You can also try lying on your side with your knees bent up toward your chest and a pillow between your knees. Avoid sitting for long periods. This puts more stress on your lower back than standing or walking. Use heat from a hot shower, hot bath, or heating pad to help ease pain. Massage can also help. You can also try using an ice pack. You can make your own ice pack by putting ice cubes in a plastic bag. Wrap the bag in a thin towel. Try both heat and cold to see which works best. Use the method that feels best for 20 minutes several times a day. You may use acetaminophen or ibuprofen to ease pain, unless another pain medicine was prescribed. Note: If you have chronic liver or kidney disease, talk with your healthcare provider before taking these medicines. Also talk with your provider if you ve had a stomach ulcer or gastrointestinal bleeding. Use safe lifting methods. Don t lift anything heavier than 15 pounds until all of the pain is gone. Follow-up care Follow up with your healthcare provider, or as advised. You may need physical therapy or additionaltests. If X-rays were taken, a radiologist will look at them. You will be told of any new findings that may affect your care. When to seek medical advice [facility]06-06-2023 Miscellaneous Notes* Telephone Encounter - Mary Ann Olguin RN - 11/26/2022 8:11 AM EDT Phoned patient and given provider's message below with verbalized understanding. * Telephone Encounter - Tom Conte MD - 11/25/2022 10:07 PM EDT Let patient know lipid panel was ok except his HDL is low at 34 (goal>40) walking 5-7 days a week for 30-40 min can help raise this. His A1c is very good at 4.8%. His kidney functions are stable. His liver functions and electrolytes were ok. documented in this encounterMer[facility]06-01-2023 Instructions* Patient Instructions* Tom Conte MD - 11/21/2022 3:08 PM EDT Check with insurance to see if they are covering the Colaguard test or colonoscopy for colon cancerscreen at your age. documented in this encounterMercy Health St. [facility]06-01-2023 History of Present illness Narrative* Tom Conte MD - 11/21/2022 2:20 PM EDT Chief Complaint Patient presents with: Follow Up HPI Carlitos Sweeney is a 47 year old male who presents here today for follow up. Patient with Hx of HTN, Hyperlipidemia, elevated A1c, GERD, Anxiety, depression, CKD stage 5 on dialysis, COPD, Smoker, CHF, chronic anemia, cardiomyopathy, migraines, s/p renal transplant, insomnia,S/P placement of defibulator or pace maker as well as those reviewed as below. Patient has a Hx of chronic noncompliance which has ultimately led to significant deterioration in his overall health. Patient sees cardio for heart disease, pulm for his lung diseased and renal for his kidney issues. Patient has been doing fine anxiety goddard with being on the buspar. Still smoking but cutting back. Has been getting a sharp chest pain during rest with no nausea or diaphoreses. Will resolve on its own. Has a call out to cardio. Past medical history, appointments, medications, allergies reviewed. Previous Medical History PAST MEDICAL HISTORY Diagnosis Date Abdominal pain 10/01/2013 Anemia of chronic renal failure 08/18/2015 Anxiety 10/01/2013 BENIGN HYP RENAL W KID FAIL 02/11/2005 Chronic combined systolic and diastolic CHF (congestive heart failure) ([facility]) 08/18/2015 Seeing cardio in [place] (has pace maker/defibulator) Chronic kidney disease, stage 5 ([facility]) Dialysis M,W,F @ [facility] Chronic obstructive pulmonary disease ([facility]) 08/18/2015 CKD (chronic kidney disease) stage 4, GFR 15-29 ml/min ([facility]) 04/26/[address] 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 End stage renal failure on dialysis ([facility]) 02/12/2017 Essential hypertension 09/10/2013 Gastroesophageal reflux disease without esophagitis 10/23/2016 Hemodialysis patient ([facility]) 03/28/2016 History of cardiac pacemaker in situ 08/31/2015 History of implantable cardiac defibrillator (ICD) 02/03/2015 Hyperkalemia 02/12/2017 Hyperphosphatemia 02/12/2017 Hypertensive heart disease with congestive heart failure ([facility]) 02/12/2017 Hypocalcemia 02/12/2017 Implantable cardioverter-defibrillator (ICD) in situ 02/12/2017 Kidney replaced by transplant 05/27/97 Kidney transplant failure and rejection 05/12/2013 Kidney transplant rejection 05/12/2013 Moderate episode of recurrent major depressive disorder (HCC) 10/23/2016 MRSA colonization, nasal 02/28/2014 Presence of combination internal cardiac defibrillator (ICD) and pacemaker Psychophysiological insomnia 11/14/2020 Patient needs substance agreement and Tox screening done at appt on 01/10/2021. If cancels or No Shows the Belsomra will be stopped. Smoker 08/18/2015 Started at age 14 up to 1-1.5 PPD, currently at 1/2 PPD (10/2016), as of 05/2019 less than 1/2 a PPD Previous Surgical History PAST SURGICAL HISTORY Procedure Laterality Date 2D ECHO (EXEP) 11/02/2020 EF=50%, mod Joshi dysf CHOLECYSTECTOMY INSJ TUNNELED CVC W/O SUBQ PORT/MANAGER TRAINING AND DEVELOPMENT AGE 3 YR/> 01/21/2014 PAST SURGICAL HISTORY OF 05/1997 Renal Transplant, cadaveric PAST SURGICAL HISTORY OF 09/2011 renal transplant PAST SURGICAL HISTORY OF Right cautery right nare for chronic nosebleeds PAST SURGICAL HISTORY OF 01/31/2017 LEFT UPPER ARM AVG Family History FAMILY HISTORY Problem Relation Age of Onset Diabetes Father Heart Father Asthma Brother Heart Brother Diabetes Paternal Uncle Anesthesia Problems No Family History Patient Allergies ALLERGIES Allergen Reactions Iodinated Contrast * Rash Cyclobenzaprine Unknown Dye Other: See Comments IV contrast makes pt run a high temperature Penicillins Rash Procardia [Nifedipi* Swelling Tramadol Unknown Current Medications Current Outpatient Medications on File Prior to Visit Medication Sig busPIRone (BUSPAR) 5 mg tablet Take 1 tablet by mouth three times daily. hydrOXYzine HCl (ATARAX) 25 mg tablet Take 0.5 tablets by mouth three times daily as needed for anxiety. hydrALAZINE (APRESOLINE) 50 mg tablet Take 50 mg by mouth three times daily. NIFEdipine XL (ADALAT CC) 30 mg 24 hr tablet Take 30 mg by mouth twice daily. sevelamer carbonate (RENVELA) 800 mg tablet Take 1 tablet by mouth three times daily. lisinopril (ZESTRIL, PRINIVIL) 5 mg tablet 5 mg. amLODIPine (NORVASC) 10 mg tablet Take 1 tablet by mouth once daily. acetaminophen (TYLENOL) 325 mg tablet Take 2 tablets every 4 hours as needed for pain. calcium acetate (PHOSLO) 667 mg tab Take 667 mg by mouth as directed. takes 4 capsules 3 times a day plus 2 capsules with each snack. carvedilol (COREG) 25 mg tablet Take 25 mg by mouth twice daily with meals. lidocaine (LIDODERM) 5 % Apply 1 Patch as directed every 24 hours. No current facility-administered medications on file prior to visit. Social History Social History Tobacco Use Smoking status: Every Day Packs/day: 0.50 Years: 29.00 Pack years: 14.50 Types: Cigarettes Smokeless tobacco: Never Tobacco comments: off and on, less than half of pack Vaping Use Vaping Use: Never used Substance Use Topics Alcohol use: No Drug use: No Review of Symptoms REVIEW OF SYSTEMS GENERAL: No weight loss, malaise or fevers NECK: a few weeks ago he noticed a swelling in the right side of his neck and some tenderness. The swelling has gone down but still slightly tender. We received call from dialysis and we advised to have patient go to ER and he was not able to go. No fevers or chills. RESPIRATORY: Negative for cough, hemoptysis, wheezing, no increased COPD, dyspnea or shortness of breath CARDIOVASCULAR: Negative for leg swelling, hypertension, CHF or palpitations. See HPI GI: No nausea, vomiting, or diarrhea and No heartburn or reflux symptoms PSYCH: See HPI NEURO: No history of frequent headaches (has his typical migraine from time to time), syncope, paralysis, seizures or tremors EXAM: BP 134/84 (BP Site: Left Arm, BP Position: Sitting, BP Cuff Size: Regular Adult) Pulse 86 Resp 18 Wt 68.5 kg (151 lb) BMI 21.06 kg/m Last 5 Encounter Wt Readings: Date: Wt: 11/21/2022 68.5 kg (151 lb) 09/16/2022 68.5 kg (151 lb) 09/01/2022 69 kg (152 lb 1.9 oz) 08/26/2022 69.4 kg (153 lb) 07/01/2022 69.4 kg (152 lb 14.4 oz) General Appearance: Well appearing, alert, in no acute distress, well-hydrated, well nourished. andThin. Neck: Supple, no adenopathy; thyroid symmetric, normal size, has bilateral Bruits. Suspect from hisAS. Lungs: Lungs clear to auscultation. No wheezing, rhonchi, rales.. Heart: RRR without gallop, or rubs. No ectopy. Soft MARLENY Abdomen: Normal abdominal exam, Abdomen soft, non-tender. Bowel sounds normal. No masses, organomegaly. Extremities: No deformities, edema. Good capillary refill. Has hemosiderin staining. . Musculoskeletal: Spine range of motion normal. Muscular strength intact, No joint swelling, deformity, or tenderness. Peripheral Pulses: Normal. Neurologic: Gait normal. Sensation to light touch intact. MSK: strength intact. Health Maintenance List BP CONTROLLED (<130/80) Never done SHINGRIX VACCINE(1 of 2) Never done ALPHA-1 ANTITRYPSIN DEFICIENCY SCREENING Never done COLORECTAL CANCER SCREENING Never done COVID-19 VACCINE(3 - Pfizer risk series) due on 06/25/2021 INFLUENZA(Season Ended) due on 02/21/2023 HEMOGLOBIN/HEMATOCRIT due on 04/04/2023 ANNUAL PCP TEAM CHRONIC DISEASE VISIT due on 08/27/2023 SERUM CREATININE due on 09/03/2023 LIPID SCREEN due on 12/04/2023 DIABETES SCREEN due on 02/12/2025 DTAP,TDAP,TD(3 - Td or Tdap) due on 10/23/2030 PNEUMOCOCCAL(4 - PPSV23 if available, else PCV20) due on 2038 SPIROMETRY Completed HEPATITIS C SCREENING Completed HIV SCREENING Completed HPV VACCINE Aged Out Data reviewed A/P ASSESSMENT/PLAN: 1. Essential hypertension - ICD9: 401.9, ICD10: I10 (primary diagnosis) - Controlled - Continue current medications - Recommend home blood pressure monitoring, to bring results to next visit - Encouraged sodium restriction, DASH or Mediterranean diet - Recommend regular aerobic exercise Check - LIPID PANEL, NONFASTING - COMP METABOLIC PANEL 2. Cardiomyopathy, unspecified type (HCC) - ICD9: 425.4, ICD10: I42.9 Management per cardiology. 3. Hypertensive heart disease with congestive heart failure, unspecified heart failure type (HCC) -ICD9: 402.91, 428.0, ICD10: I11.0 Management per cardiology. Check - LIPID PANEL, NONFASTING - COMP METABOLIC PANEL 4. Chronic combined systolic and diastolic CHF (congestive heart failure) (HCC) - ICD9: 428.42, 428.0, ICD10: I50.42 Management per cardiology. 5. Left ventricular systolic dysfunction - ICD9: 429.9, ICD10: I51.9 Management per cardiology. 6. Implantable cardioverter-defibrillator (ICD) in situ - ICD9: V45.02, ICD10: Z95.810 Management per cardiology. 7. Nonrheumatic aortic valve stenosis - ICD9: 424.1, ICD10: I35.0 Management per cardiology. 8. Elevated hemoglobin A1c - ICD9: 790.29, ICD10: R73.09 Check - HGB A1C 9. Gastroesophageal reflux disease without esophagitis - ICD9: 530.81, ICD10: K21.9 - controlled via diet. 10. Migraine without aura and without status migrainosus, not intractable - ICD9: 346.10, ICD10: G43.009 - clinically stable. No changes 11. Chronic obstructive pulmonary disease, unspecified COPD type (HCC) - ICD9: 496, ICD10: J44.9 - management per pulm 12. Anxiety - ICD9: 300.00, ICD10: F41.9 - stable with buspar 13. Mild episode of recurrent major depressive disorder (HCC) - ICD9: 296.31, ICD10: F33.0 - stable off meds. 14. CKD (chronic kidney disease) stage 5, GFR less than 15 ml/min (HCC) - ICD9: 585.5, ICD10: N18.5 - management per renal 15. End stage renal failure on dialysis (HCC) - ICD9: 585.6, V45.11, ICD10: N18.6, Z99.2 - management per renal 16. Anemia associated with stage 5 chronic renal failure (HCC) - ICD9: 285.21, 585.5, ICD10: N18.5,D63.1 - management per renal 17. Hemodialysis patient (HCC) - ICD9: V45.11, ICD10: Z99.2 - management per renal 18. Smoker - ICD9: 305.1, ICD10: F17.200 - Cessation encouraged. - Counseling was given focusing on the harmful effects of this addiction especially given the patient's medical condition(s) which will be worsened because of the chemicals in tobacco. 19. Need for vaccination - ICD9: V05.9, ICD10: Z23 - [email or web address] [employer] COVID-19 BIVALENT VACCINE, AGE 12+ YR: given 20. Bilateral carotid bruits - ICD9: 785.9, ICD10: R09.89 Check - US CAROTID ARTERIES MIA [facility] 21. Arteriovenous fistula, acquired (HCC) - ICD9: 447.0, ICD10: I77.0 - management per vascular. F/u in 6 months WAE sooner if issues. I spent a total of 43 minutes on the date of the service which included preparing to see the patient, inld-mv-[id number] patient care, completing clinical documentation, performing a medically appropriate examination, counseling and educating the patient/family/caregiver and ordering medications, tests, or procedures. Tom Conte MD documented in this encounterMer[facility]04-27-2023 Miscellaneous Notes* Telephone Encounter - Valerie Puente Sec - 10/17/2022 1:23 PM EDT The patient had an appointment scheduled 09-12-22 with the [facility], however, no showed.The Clinic reached out to the patient asking them to contact the Clinic to reschedule. However, thepatient did not reschedule. Therefore, this is considered a deferral of the clinic's services at this time. documented in this encounterMercy Health St. [facility]04-13-2023 Miscellaneous Notes* Telephone Encounter - Keenan Her LPN - 10/03/2022 12:20 PM EDT Noticed that scheduling has not contacted pt. Called and spoke with pt's significant other and scheduled 40 min routine ov with Dr Conte 11/21/22. Keenan Her LPN * Telephone Encounter - Mima Araiza LPN - 10/01/2022 3:04 PM EDT Patient significant other Marina returned call and went over notes from Miguelina LEWIS with understanding. Aware rx x 2 were sent to pharmacy. Schedulers: Please assist with scheduling 40 min appt with PCP in next several months as note belowsays. * Telephone Encounter - Keenan Her LPN - 10/01/2022 2:46 PM EDT Left message for pt to return call. See Miguelina's message below. (Did leave message on HH Nurse's identified vm regarding medication). Keenan Her LPN * Telephone Encounter - Miguelina Silva PA-C - 10/01/2022 2:02 PM EDT Patient should be seeing cardiology and nephrology who prescribe majority of his medications. The only meds we prescribe arehe ones that were started on 08/26 for hydroxyzine and buspar. (I will send in refills of these). The other medications will need to be addressed by cardio and nephrology. Patient does not need a Hospital follow up with PCP. He needs to follow up with Cardiology, nephrology, and pulmonology. He does need a 40min ROUTINE OV with Dr. Conte though scheduled sometime in the next few months. * Telephone Encounter - Teresa Osei RN - 10/01/2022 1:43 PM EDT Germania Bacon nurse with [facility] called in and reports she had a x1 visit with Pt. She states Pt hadall of his medications and they flew out the bed of his truck and were crushed. She said he filed apolice reports. She was reporting medications that are not on our medication list. She said they should be on his discharge papers from [facility]. She told the Pt to go to the pharmacy with the police report and they should be able to give him at least a few days worth of pills. She states his BP was WNL today. She is asking if the provider could go over Pt DC list and order his medication to [facility] in [place]. I told her the provider would need a copy of the police report. She said he could have the pharmacy copy it and she it to the providers office. I let her know he needs to get in as soon as possible for hospital follow up with Dr Conte. It looks like the last time Dr Conte actually saw this Pt was 06/03/19, he has been seen by other providers once or twice a year. documented in this encounterMercy Health St. [facility]04-11-2023 History of Present illness Narrative* Keenan Her LPN - 10/01/2022 1:18 PM EDT Scan on 10/01/2022 10:45 AM by External Provider: Discharge Summary documented in this encounterMercy Health St. [facility]04-09-2023 NoteORIGINAL PROCEDURE: ULTRASOUND EVALUATION FOR THORACENTESIS CLINICAL INDICATION: Right pleural effusion FINDINGS: Trace pleural effusion noted. IMPRESSION: 1. Insufficient pleural effusion for safe thoracentesis at this time. Evaluation was performed by Desiree Ponce PA-C Interpreted by: Aliza Blunt MD Preliminary Report By: Desiree Ponce PA-C Electronically signed By Aliza Blunt MD Dictated Date: 09/24/2022 3:18:13 PM Prelim Date: 09/24/2022 3:19:18 PM Sign Date: 09/29/2022 9:46:47 PM Ordering Provider: EBER [facility]09-28-2022 Note. MICRO - Microbiology PROCEDURE: Blood Culture (bacterial) [*1] SOURCE: Blood BODY SITE: COLLECTED DATE/TIME: 09/23/2022 07:00 EDT RECEIVED DATE/TIME: 09/23/2022 15:48 EDT START DATE/TIME: 09/23/2022 15:48 EDT FREE TEXT SOURCE: FINAL REPORTS Final Report [] Verified Date/Time/Personnel: 09/28/2022 15:59 EDT Blood Culture: No Growth at 5 days. PRELIMINARY REPORTS Preliminary Report [] Verified Date/Time/Personnel: 09/23/2022 16:59 EDT Culture has been received in lab and is no growth to date. Routine cultures are held for 5 days. Performing Locations *1: This test was performed at: [facility], [address] [place] [address], [address] [place], [place] [id number] Note. MICRO - Microbiology PROCEDURE: Blood Culture (bacterial) [O1 *1] SOURCE: Blood BODY SITE: COLLECTED DATE/TIME: 09/23/2022 08:09 EDT RECEIVED DATE/TIME: 09/23/2022 15:47 EDT START DATE/TIME: 09/23/2022 15:48 EDT FREE TEXT SOURCE: FINAL REPORTS Final Report [] Verified Date/Time/Personnel: 09/28/2022 15:59 EDT Blood Culture: No Growth at 5 days. PRELIMINARY REPORTS Preliminary Report [] Verified Date/Time/Personnel: 09/23/2022 16:59 EDT Culture has been received in lab and is no growth to date. Routine cultures are held for 5 days. Order Comments O1: Blood Culture (bacterial) aerobic only Performing Locations *1: This test was performed at: [facility], [address] [place] [address], [facility] , [facility] ([place])09-27-2022 NoteORIGINAL EXAMINATION: Hepatic elastography and Doppler evaluation TECHNIQUE: 2D Shear Wave Elastography and Doppler evaluation of the liver was performed in the right lobe. COMPARISON: Abdominal radiograph on 09/24/2022 HISTORY: Hepatic steatosis on right upper quadrant ultrasound. Elevated LFTs. FINDINGS: Elastography: Median velocity: 1.5 m/s IQR/median ratio: 4.1% (Value less than or equal to 15% should be seen to ensure exam adequacy.) Doppler evaluation: Splenic vein: Patent with normal direction of flow posterior to the pancreas. Main portal vein: Patent with normal direction of flow, normal spectral analysis, and normal caliber at 10-11 mm. Right portal vein: Patent with normal direction of flow. Left portal vein: Patent with normal direction of flow. There may be some collateralization of the left portal vein more distally. IVC: Patent Right, middle, and left hepatic veins: Patent with normal direction of flow. Main hepatic artery: Normal direction of flow. IMPRESSION: 1. Elastography indicates a normal to mild risk of clinically significant liver fibrosis. Shear Wave Liver Elastography-liver fibrosis staging Median Velocity: Recommendation: 1.35-1.66 m/s (5.48 kPa - 8.29 kPa) Normal to mild risk of clinically significant liver fibrosis : METAVIR Stage F1 1.66-1.77 m/s (8.29 kPa - 9.40 kPa) [id number] risk of clinically significant liver fibrosis. (METAVIR Stage F2) 1.77-1.99 m/s (9.40 kPa - 11.9 kPa) Moderate to severe risk of clinically significant liver fibrosis (METAVIR Stage F3) > 1.99 m/s (> 11.9 kPa) Advanced Fibrosis and/or Cirrhosis: (METAVIR Stage F4) 2. Normal liver Doppler evaluation. I have personally reviewed the images of this examination, and agree with the resident's findings and interpretation. Interpreted by: Raymon Calle MD Preliminary Report By: Edilberto Maldonado Electronically signed By Raymon Calle MD Dictated Date: 09/26/2022 11:58:45 PM Prelim Date: 09/27/2022 12:45:10 AM Sign Date: 09/27/2022 12:47:56 AM Ordering Provider: [facility] ([place])09-23-2022 History of Present illness Narrative* Keenan Her LPN - 09/23/2022 12:28 PM EDT Scan on 09/23/2022 9:31 AM by External Provider: Miscellaneous Lab documented in this encounterMercy Health St. [facility]03-30-2023 History of Present illness Narrative* Sneha Vaughan MA - 09/19/2022 3:28 PM EDT Scan on 09/19/2022 11:57 AM by External Provider: Consultation - Cardiology Sneha Vaughan MA documented in this encounterMercy Health St. [facility]03-30-2023 Miscellaneous Notes* Plan of Care - Nayan Howard MD - 09/19/2022 12:20 PM EDT Patient presenting for CTV chest to 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 Discussed with technologist, okay to obtain bilateral IV in order to obtain sufficient contrast volume injection given patient's indication, though to use as small IV needle as possible on side of fistula while still being able to obtain recommended flow rate. documented in this encounterMercy Health St. [facility]03-30-2023 Plan of care note* Plan of Care - Nayan Howard MD - 09/19/2022 12:20 PM EDT Patient presenting for CTV chest to 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 Discussed with technologist, okay to obtain bilateral IV in order to obtain sufficient contrast volume injection given patient's indication, though to use as small IV needle as possible on side of fistula while still being able to obtain recommended flow rate. [facility] Work Phone: [phone]) 796-278903-28-2023 Miscellaneous Notes* Telephone Encounter - Valerie Man - 09/17/2022 9:20 AM EDT The patient was scheduled 09-12-22 with the Heart Failure Clinic, however, no showed. A letter was mailed to the patient asking them to contact the Clinic to reschedule. documented in this encounterMercy Health St. [facility]03-23-2023 Miscellaneous Notes* Telephone Encounter - Myah Bourgeois RN - 09/12/2022 2:15 PM EDT Call placed to patient for scheduled telehealth appt. Pt did not answer. Voicemail left for pt withFC phone number to reschedule. documented in this encounterMercy Health St. [facility]03-17-2023 Note. MICRO - Microbiology PROCEDURE: Blood Culture (bacterial) [*1] SOURCE: Blood BODY SITE: COLLECTED DATE/TIME: 09/01/2022 00:08 EST RECEIVED DATE/TIME: 09/01/2022 19:06 EDT START DATE/TIME: 09/01/2022 19:06 EDT FREE TEXT SOURCE: FINAL REPORTS Final Report [] Verified Date/Time/Personnel: 09/06/2022 19:59 EDT Blood Culture: No Growth at 5 days. PRELIMINARY REPORTS Preliminary Report [] Verified Date/Time/Personnel: 09/01/2022 19:59 EDT Culture has been received in lab and is no growth to date. Routine cultures are held for 5 days. Performing Locations *1: This test was performed at: [address], [facility] , [facility]09-06-2022 Note. MICRO - Microbiology PROCEDURE: Blood Culture (bacterial) [*1] SOURCE: Blood BODY SITE: COLLECTED DATE/TIME: 09/01/2022 00:08 EST RECEIVED DATE/TIME: 09/01/2022 19:06 EDT START DATE/TIME: 09/01/2022 19:06 EDT FREE TEXT SOURCE: FINAL REPORTS Final Report [] Verified Date/Time/Personnel: 09/06/2022 19:59 EDT Blood Culture: No Growth at 5 days. PRELIMINARY REPORTS Preliminary Report [] Verified Date/Time/Personnel: 09/01/2022 19:59 EDT Culture has been received in lab and is no growth to date. Routine cultures are held for 5 days. Performing Locations *1: This test was performed at: [address], [facility] , [facility]09-04-2022 History of Present illness Narrative* Nayla Corbett RN - 09/04/2022 2:22 PM EDT TRANSITIONAL CARE MANAGEMENT (TCM) COMMUNITY MONITORING PROGRAM Outreach attempt #2 Unable to reach patient. Left message. Pt has PCP f/u on 09/26/22 Appointments for Next 60 Days Date Time Provider Location Dept Phone 09/12/2022 2:00 PM NURSE CARD CHF 2 SEBEWAING DEWAYNE [phone] 09/16/2022 2:15 PM MANJIT FIELD TARUN [phone] 09/26/2022 2:00 PM LYUDMILA AN [facility] [phone] SUMMARY: Pt discharged from [facility] on 09/02/22. Admitted for: Chest pain Patient was admitted for dyspnea. 46 yo M with hx of ESRD, chronic systolic and diastolic HF who presented with dyspnea and moderate sized R pleural effusion on chest xray. He recently had a pleurX catheter removed on 08/08/22 (per ) for a pleural effusion they were told was form his CHF. Pulmonology consulted and recommend HD, no plans for PleurX catheter this admission. They will order repeat chest xray in 1-2 weeks to reevaluate the effusion. His symptoms have improved and he is stable for discharge after dialysis. He does not urinate, so no indication for lasix. He had some pain at his ICD site prior to admission, but that has since resolved, and he can follow up with his PCP outpatient. He states he has a court date tomorrow at 9:30 that he needs to attend. Contact made with patient: No - 2nd unsuccessful attempt - end outreach and close encounter Outreach ended Nayla Corbett RN * Nayla Corbett RN - 09/03/2022 11:50 AM EDT TCM Home Visit Referral Source of Stratification: [facility] Admission Status: Discharged Readmission Risk Score: 20 ROB Score: 21 Patient meets program referral criteria: No Patient does not qualify for High Risk TCM Home Visit program due to: Discharged home, does not meet program criteria Nayla Corbett RN September 03, 2022 11:50 AM TRANSITIONAL CARE MANAGEMENT (TCM) COMMUNITY MONITORING PROGRAM Provider Action/FYI: Outreach attempt #1 Unable to reach patient. Left message. Will try again later Pt has PCP f/u on 09/26/22 Appointments for Next 60 Days Date Time Provider Location Dept Phone 09/16/2022 2:15 PM MANJIT FIELD [facility] [phone] 09/26/2022 2:00 PM LYUDMILA AN [facility] ARJUN [phone] SUMMARY: Pt discharged from [facility] on 09/02/22. Admitted for: Chest pain Patient was admitted for dyspnea. 46 yo M with hx of ESRD, chronic systolic and diastolic HF who presented with dyspnea and moderate sized R pleural effusion on chest xray. He recently had a pleurX catheter removed on 08/08/22 (per ) for a pleural effusion they were told was form his CHF. Pulmonology consulted and recommend HD, no plans for PleurX catheter this admission. They will order repeat chest xray in 1-2 weeks to reevaluate the effusion. His symptoms have improved and he is stable for discharge after dialysis. He does not urinate, so no indication for lasix. He had some pain at his ICD site prior to admission, but that has since resolved, and he can follow up with his PCP outpatient. He states he has a court date tomorrow at 9:30 that he needs to attend. Contact made with patient: No - next outreach attempt will be on next day Outreach ended Nayla Corbett RN [facility] Miscellaneous Notes* Telephone Encounter - Valerie Man - 09/03/2022 4:04 PM EDT The patient was discharged from [facility] 09-02-22 with an order to schedule with the [facility]. The Clinic reached out to the patient. TeleHealth appointment scheduled 09-12-22. documented in this encounterMer[facility]23 NoteHNO ID: [id number] Author: Devang Pepper MD Service: Nephrology Author Type: Physician Type: Progress Notes Filed: 09/02/2022 6:35 PM Note Text: Subjective. No new events 09/01/22 1956 09/02/22 0400 09/02/22 0900 09/02/22 1619 BP: 109/63 119/69 113/69 119/66 Pulse: 76 78 78 77 Resp: 17 18 16 16 Temp: 37.1 ?C (98.8 ?F) 36.9 ?C (98.4 ?F) 36.7 ?C (98.1 ?F) 36.5 ?C (97.7 ?F) TempSrc: Oral Oral Oral Temporal Artery SpO2: 97% 98% 98% Weight: Height: No pallor No icterus No JVD Heart - S1 S2 Lungs - clear Abdomen - soft, non distended, no organomegaly LE - no edema, No cyanosis No rash AAO x 3 CMP: Glucose 101 09/02/2022 BUN 53 09/02/2022 Creatinine 9.27 09/02/2022 Sodium 132 09/02/2022 Potassium 5.3 09/02/2022 Chloride 93 09/02/2022 CO2 Content, Venous 25 09/02/2022 Protein, Total 7.1 02/12/2022 Albumin 3.4 09/02/2022 Calcium 8.6 09/02/2022 Alkaline Phosphatase 76 02/12/2022 Bilirubin, Total 0.4 02/12/2022 AST 18 02/12/2022 ALT 17 02/12/2022 Hemoglobin (g/dL) Date Value 04/04/2022 9.5 07/17/2021 8.3 Hematocrit (%) Date Value 04/04/2022 30.3 07/17/2021 27.5 WBC (k/uL) Date Value 04/04/2022 4.15 07/17/2021 4.36 Platelet Count (k/uL) Date Value 04/04/2022 196 07/17/2021 252 Assessment/ Plan ESRD. The patient usually dialyzes at [facility] dialysis unit on MWF schedule. He is followed there by Dr. Hu. HD today Anemia in chronic kidney disease. stable Hypertension. BP is reasonably controlled on current medicationDown [facility]03-13-2023 NoteHNO ID: [id number] Author: Aj Tao RN Service: Dialysis Author Type: Registered Nurse Type: Nursing Progress Note Filed: 09/02/2022 4:19 PM Note Text: Hemo treatment complete,tolerated well,fluid removed 1 liter. See scanned flow sheet.[facility]03-13-2023 NoteHNO ID: [id number] Author: Lyudmila Laboy RN Service: Care Management Author Type: Registered Nurse Type: Care Mgt Progress Note Filed: 09/02/2022 2:31 PM Note Text: CARE MANAGEMENT DISCHARGE NOTE SERVICE DATE: 09/02/2022 SERVICE TIME: 2:31 PM LOS: 0 days Admission Date: 09/01/2022 DISCHARGE ARRANGEMENT (list agency and phone number) Discharge Arrangement: Home with Self Care Provider Name: NA Phone: NA CAREGIVER ASSESSMENT: Caregiver is ready, willing and able to meet the patient's needs as recommended by the inter-professional team:: No Caregiver needed HANDOFF COMMUNICATION: Handoff to: Primary Care Physician Primary Care Physician Name/Phone: Dr Conte [phone] TRANSPORTATION ARRANGEMENTS: Transportation Arrangements: Car Date of Trip: 09/02/22 Time of Trip: 1700 Destination: home ADDITIONAL CONTACT RESOURCES: NA Patient is discharging home with self care. Patient's fiancee to transport at discharge. SIGNATURE: Lyudmila Laboy RN PATIENT NAME: Carlitos Sweeney DATE: September 02, 2022 TIME: 2:31 PM PAGER/CONTACT #: [phone] East Community Hospital 09-02-2022 NoteHNO ID: [id number] Author: Lyudmila Laboy RN Service: Care Management Author Type: Registered Nurse Type: Care Mgt Initial Assessment Filed: 09/02/2022 9:27 AM Note Text: CARE MANAGEMENT: ASSESSMENT AND DISCHARGE PLAN SERVICE DATE: September 02, 2022 SERVICE TIME: 9:23 AM PRIMARY CARE PHYSICIAN: Tom Conte MD Primary Contact: Extended Emergency Contact Information Primary Emergency Contact: Marina Lundy [facility] Mobile Relation: Significant other ADMISSION STATUS: To Come In Insurance Provider: MEDICARE A AND B NEEDS PRIOR TO DISCHARGE Needs Prior to Discharge: To Be Determined, Discharge Prescriptions POTENTIAL TRANSITION PLANS To Be Determined Based on clinical judgement, Care Management will address the following needs: No transitional/discharge planning needs at this time Patient's perception of need for this admission: Chest pain ADVANCE DIRECTIVES Current Advance Directive: Health Care Power of Reflow Operator;Living Will In Chart: Yes Up To Date and Valid: Yes MS/BEHAVIOR Baseline Mental Status Prior to this Illness what was the patient's Baseline Mental Status?: Alert AND Oriented Prior to this illness, has anyone described the patient having any of the following behaviors?: Not Applicable Relationship of the informant to the patient:: Self READMISSION Last Discharge Date: 08/08/22 Is this Within the Past 30 days? From what level of care did patient present?: Home Last discharge within 30 days: No PATIENT SCREEN Patient/[employer] Stated Goals: To have reduction in pain, To have reduction in symptoms Under the care of a PCP?: Yes, Internal Provider Provider Name: Dr Conte Does the patient have transportation upon discharge?: Yes Use of any community resources?: Yes Does the patient have a stable and supportive living arrangement and home setting?: Yes Are there any potential risks or gaps identified by risk/functional/fall,etc. scores in the EMR?: No Any potential risks related to substance abuse and/or behavioral health?: No Based on clinical judgement, Care Management will address the following needs: No transitional/discharge planning needs at this time CAREGIVER ASSESSMENT Caregiver is ready, willing and able to meet the patient's needs as recommended by the inter-professional team:: No Caregiver needed MEDICAL Medical Needs: Two or more chronic diseases Health Issues Impacting Discharge Plan: Chronic Medication Adherance I am convinced of the importance of my prescription medication: 0 - Agree Completely I worry that my prescription medication will do more harm than good to me : 0 - Disagree Mostly I feel financially burdened by my uxq-pz-eorjaq expenses for my prescription medication:: 0 - Disagree Mostly Risk Score: 0 Patient is categorized as: Low risk < 2 SOCIAL Living Arrangements: Home Lives With: Partner/Significant Other Financial Resources: Disabled Supportive Patient Contact:: Yes Contact Resources: Medical/Health POA Is Patient Psychosocially Complex?: No Contact Resources: Medical/Health POA Health Literacy How often do you need to have someone help you when you read instructions, pamphlets, or other written material from your doctor or pharmacy? : 1 - Never How confident are you filling out medical forms by yourself?: 1 - Extremely If Patient scores > 3 on either question, the following interventions were put into place:: Patient did not score > 3 on either question. Food Insecurity: No Food Insecurity Worried About Running Out of Food in the Last Year: Never true Ran Out of Food in the Last Year: Never true Financial Resource Strain: Low Risk Difficulty of Paying Living Expenses: Not very hard Transportation Needs: No Transportation Needs Lack of Transportation (Medical): No Lack of Transportation (Non-Medical): No Housing Stability: Low Risk Unable to Pay for Housing in the Last Year: No Number of Places Lived in the Last Year: 1 Unstable Housing in the Last Year: No BEHAVIORAL/COGNITIVE Psychosocial Psychosocial Needs: None FUNCTIONAL How do you manage to accomplish the following: Independent: Ambulation;Bathe/Shower;Dress;Meals/Meal Prep;Going to the bathroom;Medication Management;Transportation to appointments/community Services/Needs//Equipment Does Patient Currently Receive Any Community Services or Home Care?: None Equipment Prior to Admission: None Has the Patient Been in a [facility] Facility in the Past 30 days?: No No medical discharge barriers identified at this time. No social discharge barriers identified at this time. No behavioral/cognitive discharge barriers identified at this time. No functional discharge barriers identified at this time. FREEDOM OF CHOICE EXPLAINED: Are you interested in bedside delivery of your medications? No Is Patient Psychosocially Complex?: (more content not included)...[facility]03-12-2023 SARS-CoV-2 (COVID-19) RNA JAMILAH+probe Ql (Nph)Negative *NA* (09/01/22 12:08 AM)AO Auto Urine [id number] Note ORIGINAL EXAMINATION: CT OF THE CHEST WITHOUT CONTRAST 08/31/2022 11:34 pm TECHNIQUE: CT of the chest was performed without the administration of intravenous contrast. Multiplanar reformatted images are provided for review. Automated exposure control, iterative reconstruction, and/or weight based adjustment of the mA/kV was utilized to reduce the radiation dose to as low as reasonably achievable. COMPARISON: Chest x-ray of the same date. HISTORY: ORDERING SYSTEM PROVIDED HISTORY: Reason for Exam: pneumonia, pleural effusion on CXR Patient reported thoracentesis 6 weeks ago at [facility]. FINDINGS: Evaluation of the lungs demonstrates dense consolidations of the basilar aspects of all 3 right lung lobes. There is associated atelectasis seen of the right middle lobe. Furthermore, there is demonstration of a pleural effusion with locules of air within highly concerning for empyema or possible pulmonary abscess. The empyema appears to measure approximately 10.5 x 5.4 x 5.2 cm in size. This is difficult to evaluate due to lack of IV contrast. The left lung demonstrates left basilar atelectasis and is otherwise clear. No evidence of pneumothorax. The heart is moderately enlarged status post left-sided AICD device placement. Coronary artery calcifications are appreciated. The main pulmonary artery is borderline in size measuring 3.2 cm indicative of pulmonary arterial hypertension. Lack of IV contrast limits evaluation of lymphadenopathy. Within this limitation there appears to be a enlarged subcarinal lymph node measuring 1.1 cm. Additional borderline right paratracheal lymph nodes are noted. These are likely reactive in nature. Limited evaluation of the upper abdomen demonstrates left renal atrophy. No acute fracture or aggressive osseous lesion is seen of the bony structures. IMPRESSION: Dense consolidations seen of the right lung as described above consistent with pneumonia. Findings on the basis of empyema versus large right basilar pulmonary abscess with evaluation limited due to lack of IV contrast. This measures approximately 10.5 x 5.4 x 5.2 cm. Reactive mediastinal lymphadenopathy. Borderline dilated main pulmonary artery indicative of pulmonary arterial hypertension. Coronary artery calcifications. Interpreted by: Jean Carlos Turner MD Preliminary Report By: Jean Carlos Turner MD Electronically signed By Jean Carlos Turner MD Dictated Date: 08/31/2022 11:36:24 PM Prelim Date: 08/31/2022 11:47:27 PM Sign Date: 08/31/2022 11:47:27 PM Ordering Provider: [facility]03-11-2023 Note ORIGINAL EXAMINATION: CT OF THE CHEST WITHOUT CONTRAST 08/31/2022 11:34 pm TECHNIQUE: CT of the chest was performed without the administration of intravenous contrast. Multiplanar reformatted images are provided for review. Automated exposure control, iterative reconstruction, and/or weight based adjustment of the mA/kV was utilized to reduce the radiation dose to as low as reasonably achievable. COMPARISON: Chest x-ray of the same date. HISTORY: ORDERING SYSTEM PROVIDED HISTORY: Reason for Exam: pneumonia, pleural effusion on CXR Patient reported thoracentesis 6 weeks ago at [facility]. FINDINGS: Evaluation of the lungs demonstrates dense consolidations of the basilar aspects of all 3 right lung lobes. There is associated atelectasis seen of the right middle lobe. Furthermore, there is demonstration of a pleural effusion with locules of air within highly concerning for empyema or possible pulmonary abscess. The empyema appears to measure approximately 10.5 x 5.4 x 5.2 cm in size. This is difficult to evaluate due to lack of IV contrast. The left lung demonstrates left basilar atelectasis and is otherwise clear. No evidence of pneumothorax. The heart is moderately enlarged status post left-sided AICD device placement. Coronary artery calcifications are appreciated. The main pulmonary artery is borderline in size measuring 3.2 cm indicative of pulmonary arterial hypertension. Lack of IV contrast limits evaluation of lymphadenopathy. Within this limitation there appears to be a enlarged subcarinal lymph node measuring 1.1 cm. Additional borderline right paratracheal lymph nodes are noted. These are likely reactive in nature. Limited evaluation of the upper abdomen demonstrates left renal atrophy. No acute fracture or aggressive osseous lesion is seen of the bony structures. IMPRESSION: Dense consolidations seen of the right lung as described above consistent with pneumonia. Findings on the basis of empyema versus large right basilar pulmonary abscess with evaluation limited due to lack of IV contrast. This measures approximately 10.5 x 5.4 x 5.2 cm. Reactive mediastinal lymphadenopathy. Borderline dilated main pulmonary artery indicative of pulmonary arterial hypertension. Coronary artery calcifications. Interpreted by: Jean Carlos Turner MD Preliminary Report By: Jean Carlos Turner MD Electronically signed By Jean Carlos Turner MD Dictated Date: 08/31/2022 11:36:24 PM Prelim Date: 08/31/2022 11:47:27 PM Sign Date: 08/31/2022 11:47:27 PM Ordering Provider: [facility]03-11-2023 Note ORIGINAL EXAMINATION: TWO XRAY VIEWS OF THE CHEST 08/31/2022 10:29 pm COMPARISON: Chest x-ray 06/15/2021, 08/23/2018.. HISTORY: ORDERING SYSTEM PROVIDED HISTORY: Reason for Exam: Chest Pain for 1 hour FINDINGS: Left dual lead AICD is noted with leads in unchanged position. A vascular stent is noted within the region of the left subclavian vessels. The cardiomediastinal silhouette is stable. There is a small loculated right pleural effusion with adjacent right basilar consolidation. There is mild bilateral interstitial prominence which is likely chronic in etiology. The osseous structures appear intact. IMPRESSION: Right basilar pneumonia with small right loculated appearing pleural effusion. Bilateral interstitial prominence is most likely chronic. Superimposed edema or atypical infection is not excluded. I have personally reviewed the images of this examination and agree with the resident's findings and interpretation. Interpreted by: Jean Carlos Turner MD Preliminary Report By: Bernabe Chávez Electronically signed By Jean Carlos Turner MD Dictated Date: 08/31/2022 10:32:02 PM Prelim Date: 08/31/2022 10:36:14 PM Sign Date: 08/31/2022 10:38:31 PM Ordering Provider: [facility]03-11-2023 Note ORIGINAL EXAMINATION: TWO XRAY VIEWS OF THE CHEST 08/31/2022 10:29 pm COMPARISON: Chest x-ray 06/15/2021, 08/23/2018.. HISTORY: ORDERING SYSTEM PROVIDED HISTORY: Reason for Exam: Chest Pain for 1 hour FINDINGS: Left dual lead AICD is noted with leads in unchanged position. A vascular stent is noted within the region of the left subclavian vessels. The cardiomediastinal silhouette is stable. There is a small loculated right pleural effusion with adjacent right basilar consolidation. There is mild bilateral interstitial prominence which is likely chronic in etiology. The osseous structures appear intact. IMPRESSION: Right basilar pneumonia with small right loculated appearing pleural effusion. Bilateral interstitial prominence is most likely chronic. Superimposed edema or atypical infection is not excluded. I have personally reviewed the images of this examination and agree with the resident's findings and interpretation. Interpreted by: Jean Carlos Turner MD Preliminary Report By: Bernabe Chávez Electronically signed By Jean Carlos Turner MD Dictated Date: 08/31/2022 10:32:02 PM Prelim Date: 08/31/2022 10:36:14 PM Sign Date: 08/31/2022 10:38:31 PM Ordering Provider: [facility]02-23-2023 Hospital Discharge instructions Patient Education 08/15/2022 20:16:18 Plantar Fasciitis Plantar Fasciitis Plantar fasciitis is a painful swelling of the plantar fascia. The plantar fascia is a thick, fibrous layer of tissue that covers the bones on the bottom of your foot. It supports the foot bones in an arched position. Plantar fasciitis can happen gradually or suddenly. It usually affects one foot at a time. Heel pain can be sharp, like a knife sticking into the bottom of your foot. You may feel pain after exercising, long-distance jogging, stair climbing, long periods of standing, or after standing up. Risk factors include: non-active lifestyle, arthritis, diabetes, obesity or recent weight gain, flat foot, high arch. Wearing high heels, loose shoes, or shoes with poor arch support for long periodsof time adds to the risk. This problem is commonly found in runners and dancers. It also found in people who stand on hard surfaces for long periods of time. Foot pain from this condition is usually worse in the morning. But it often improves with walking. By the end of the day there may be a dull aching. Treatment requires short-term rest and controllingswelling. It may take up to 9 months before all symptoms go away. Rarely, a steroid injection into the foot, or surgery, may be needed. Home care If you are overweight, lose weight to help healing. Choose supportive shoes with good arch support and shock absorbency. Replace athletic shoes when they become worn out. Don t walk or run barefoot. Premade or custom-fitted shoe inserts may be helpful. Inserts made of silicone seem to be the most effective. Custom-made inserts can be provided by developmental specialist, physical therapist, or orthopedist. Premade or custom-made night splints keep the heel stretched out while you sleep. They may prevent morning pain. Limit activities that stress the feet: jogging, prolonged standing or walking, contact sports, etc. First thing in the morning and before sports, stretch the bottom of your feet. Gently flex your ankle so the toes move toward your knee. Icing may help control heel pain. Apply an ice pack to the heel for 10 to 20 minutes as a preventive. Or ice your heel after a severe flare-up of symptoms. You may repeat this every 1 to 2 hours as needed. You may use hgis-axw-gtkdoye pain medicine to control pain, unless another medicine was prescribed.Anti-inflammatory pain medicines, such as ibuprofen or naproxen, may work better than acetaminophen. If you have chronic liver or kidney disease or ever had a stomach ulcer or gastrointestinal bleeding, talk with your healthcare provider before using these medicines. Follow-up care Follow up with your healthcare provider, or as advised. Call for an appointment if pain worsens or there is no relief after a few weeks of home treatment. Shoe inserts, a night splint, or a special boot may be required. If X-rays were taken, you will be told of any new findings that may affect your care. When to seek medical advice Call your healthcare provider right away if any of these occur: Foot swelling Redness or warmth with increasing pain [phone] [employer]. [address] [place] [address], [place] [address]. All rights reserved. This information is not intended as a substitute for professional medical care. Always follow yourhealthcare professional's instructions. Follow Up Care 08/15/2022 17:49:37 With:ODILIA GRIGSBY DPM, Surgery Address: [address] [facility] [place] [address]- When:2-4 days [facility] 02-23-2023 Emergency department Discharge summary Discharge Instructions Thank you for allowing [facility] to assist you with your healthcare needs. The following is importantdischarge information regarding your hospital visit. Diagnosis from Today's Visit Foot pain-swelling What to Do Next Instructions from Your Care Team Discharge Home Equipment - Ordered -- Walking Boot, 99 month(s), 08/15/22 20:15:00 EST Post Acute Orders No qualifying data available. You Need to Schedule the Following Appointments Follow Up with ODILIA GRIGSBY DPM, Surgery When Within 2-4 days Where: [address] [place], [address] [facility] [place] [address]- Allergies penicillin (rash) Contrast dye NIFEdipine hydrALAZINE traMADol Medications Please ask your primary doctor or pharmacist before taking any other medication not listed, including over the counter drugs, herbal medications, vitamins and or supplements as they may interact withyour home medications. What How Much When Why Instructions Last Dose Unchanged acetaminophen (Tylenol Extra Strength 500 mg oral tablet) 3 tab(s) by mouth Every 4 hours as needed for as needed for pain Unchanged amLODIPine (amLODIPine 10 mg oral tablet) TAKE 1 TABLET AT BEDTIME Unchanged carvedilol (carvedilol 6.25 mg oral tablet) TAKE 1 TABLET BY MOUTH TWICE DAILY Unchanged clopidogrel (Plavix 75 mg oral tablet) 1 tab(s) by mouth Once a day Six months of Plavix Unchanged diphenhydrAMINE (Benadryl 25 mg oral tablet) 1 tab(s) by mouth Three (3) times a day as needed for as needed for allergy symptoms Unchanged etodolac (etodolac 400 mg oral tablet) 1 tab(s) by mouth Two (2) times a day Foot pain Duration: 7 Days Unchanged hydrALAZINE (hydrALAZINE 50 mg oral tablet) 1 tab(s) by mouth Once a day Unchanged multivitamin (Nephro-Elle oral tablet) 1 tab(s) by mouth Every day Unchanged nabumetone (nabumetone 500 mg oral tablet) 2 tab(s) by mouth Two (2) times a day Strain of muscle of left posterior lower leg Duration: 7 Days Unchanged sertraline (sertraline 25 mg oral tablet) 1 tab(s) by mouth Once a day Unchanged sevelamer (Renvela 800 mg oral tablet (NF)) 3 tab(s) by mouth As Directed Unchanged sevelamer (Renvela 800 mg oral tablet (NF)) 4 tab(s) by mouth Three (3) times a day with meals Please take this list to your next doctor s visit. Bring all medications you take, including over the counter medications, herbals and other supplements with you to your doctor s visit. Patients and families are reminded to discard old lists and to update any records with all medication providers or retail pharmacies. Education Materials Plantar Fasciitis Plantar fasciitis is a painful swelling of the plantar fascia. The plantar fascia is a thick, fibrous layer of tissue that covers the bones on the bottom of your foot. It supports the foot bones in an arched position. Plantar fasciitis can happen gradually or suddenly. It usually affects one foot at a time. Heel pain can be sharp, like a knife sticking into the bottom of your foot. You may feel pain after exercising, long-distance jogging, stair climbing, long periods of standing, or after standing up. Risk factors include: non-active lifestyle, arthritis, diabetes, obesity or recent weight gain, flat foot, high arch. Wearing high heels, loose shoes, or shoes with poor arch support for long periodsof time adds to the risk. This problem is commonly found in runners and dancers. It also found in people who stand on hard surfaces for long periods of time. Foot pain from this condition is usually worse in the morning. But it often improves with walking. By the end of the day there may be a dull aching. Treatment requires short-term rest and controllingswelling. It may take up to 9 months before all symptoms go away. Rarely, a steroid injection into the foot, or surgery, may be needed. Home care If you are overweight, lose weight to help healing. Choose supportive shoes with good arch support and shock absorbency. Replace athletic shoes when they become worn out. Don t walk or run barefoot. Premade or custom-fitted shoe inserts may be helpful. Inserts made of silicone seem to be the most effective. Custom-made inserts can be provided by developmental specialist, physical therapist, or orthopedist. Premade or custom-made night splints keep the heel stretched out while you sleep. They may prevent morning pain. Limit activities that stress the feet: jogging, prolonged standing or walking, contact sports, etc. First thing in the morning and before sports, stretch the bottom of your feet. Gently flex your ankle so the toes move toward your knee. Icing may help control heel pain. Apply an ice pack to the heel for 10 to 20 minutes as a preventive. Or ice your heel after a severe flare-up of symptoms. You may repeat this every 1 to 2 hours as needed. You may use afqu-ire-gbjprkh pain medicine to control pain, unless another medicine was prescribed.Anti-inflammatory pain medicines, such as ibuprofen or naproxen, may work better than acetaminophen. If you have chronic liver or kidney disease or ever had a stomach ulcer or gastrointestinal bleeding, talk with your healthcare provider before using these medicines. Follow-up care Follow up with your healthcare provider, or as advised. Call for an appointment if pain worsens or there is no relief after a few weeks of home treatment. Shoe inserts, a night splint, or a special boot may be required. If X-rays were taken, you will be told of any new findings that may affect your care. When to seek medical advice Call your healthcare provider right away if any of these occur: Foot swelling Redness or warmth with increasing pain [phone] [employer]. [address] [place] [address]30. All rights reserved. This information is not intended as a substitute for professional medical care. Always follow yourhealthcare professional's instructions. Additional Information VACCINATE! IT SAVES LIVES! Members of the community who have not yet received the COVID-19 vaccine and would like to receive it can visit one of [facility] vaccine clinics. There are many vaccine clinic locations within the [facility]. For locations and available times, please visit www.gettheshot.coronavirus.[place].gov/. It is important to note that some COVID mobile vaccine clinics are held outdoors and may be canceled in rainy or stormy conditions. To learn more about pediatric vaccinations (ages 5-11), we invite you to visit the [facility] webpage. https://www.[facility].org/pages/1504-Bgyft-Owfpdohstsp-Ingrvahupy-Rvgtj-Trg stions.htmlTo learn more about the COVID-19 vaccine, we invite you to visit the CDC website for a list of frequently asked questions. https://www.cdc.gov/coronavirus/2019-ncov/vaccines/faq.html [facility] Patient Portal Access Instructions: Stay connected with your healthcare team and access your personal medical information anytime with the [facility] Patient Portal. If you would like a full copy of your medical records please contact the [facility] Medical Records Department Friday through Friday between 8a.m. and 4:30p.m. Please follow the directions below to access the portal: 1.Access the email account you provided upon registration to the [facility].2.Look for an invitation email from [facility].3.Open the email and access the invitation link: Accept Invitation to [facility]4.Fill in the required luis to create your account. Sign into [email or web address] with your username and password that you created in the above steps to stay up to date. You can then view a summary of results, a summary of your visits, and the ability to download your summaries to your computer or send the information securely to a physician. Remember that your healthcare information is confidential, so carefully consider who you will allow to register on the [facility] Patient Portal for access to your information. You can also access the [facility] Patient Portal on the [employer]. Simply click on Health Records under [employer] and then click on the [employer] logo. HOW TO SAFELY DISPOSE OF PRESCRIPTION MEDICATIONS Please use one of the following methods to safely dispose of your unused medications. 1.Use a drug disposal kit: the drug disposal pouch allows you to safely discard your old and unuseddrugs. Ask your nurse to give you one when you are discharged.2.Visit a local take-back location: Many local pharmacies and police departments have programs that collect old and unwanted prescriptiondrugs. Call your local pharmacy or go to http://cricket/4B4Je8r to find one close to you.3.Make use of household items: Use cat litter or old coffee grounds to dispose medications if other options arenot available. Mix your drugs with these household products, seal them in an airtight container andthrow it into the garbage. Call [facility]: [phone] to be sure your drugs can be disposed of in this way. Some medicines may require a different approach.4.Never flush your medications down the toilet. IF YOU HAVE BEEN PRESCRIBED AN OPIOIDS FOR PAIN If you have been prescribed an opioid (such as hydrocodone, oxycodone or morphine), it is critical to understand the possible side effects and risks of opioid pain medications. Even when taken as directed, opioids can have several side effects including: Tolerance, meaning you might need to take more of a medication for the same pain relief. Nausea, vomiting and/or constipation. Sleepiness, dizziness, dry mouth, confusion, depression or itching. Physical dependence, meaning you have withdrawal symptoms when a medication is stopped ? this can develop within a few days. KNOW YOUR RESPONSIBILITIES It is important to know exactly how much and how often to take the opioid pain medications you are prescribed. Never take opioids in higher amounts or more often than prescribed. Do not combine opioids with alcohol or other drugs that cause drowsiness, such as benzodiazepines, also known as benzos,including diazepam and alprazolam, muscle relaxants or sleep aids. Never sell or share prescriptionopioids. This is illegal. Store opioids in a secure place and out of reach of others (including children, family, friends and visitors). The last page(s) of this document has been signed and retained as a CHART COPY Signatures Patient Education Materials Plantar Fasciitis Medication Leaflets My discharge plan and instructions have been reviewed and explained to me and IZAHRA CHAD K understand my current condition and have read and understand these discharge instructions. I have received a written copy of the plan/instructions. If I have questions, I am aware that I should contact my doc tor. 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 right foot radiographs 10/23/2020 HISTORY: ORDERING SYSTEM PROVIDED HISTORY: Reason for Exam: foot pain FINDINGS: No visible acute fracture or dislocation. Incidental note is made of an os perineum. Normal osseous mineralization. No visible aggressive osseous lesions. There is no significant arthrosis present. Normal midfoot alignment. No tibiotalar effusion. Minimal atherosclerosis. No visible radiopaque foreign body. IMPRESSION: 1. No acute fracture or dislocation. Interpreted by: Jaycob Schwartz DO Preliminary Report By: Jaycob Schwartz DO Electronically signed By Jaycob Schwartz DO Dictated Date: 08/15/2022 7:57:18 PM Prelim Date: 08/15/2022 7:58:22 PM Sign Date: 08/15/2022 7:58:22 PM Ordering Provider: JEFF SOUZA [facility]02-23-2023 Note ORIGINAL EXAMINATION: THREE XRAY VIEWS OF THE RIGHT FOOT 08/15/2022 7:46 pm COMPARISON: Right ankle radiographs 02/07/2021. right foot radiographs 10/23/2020 HISTORY: ORDERING SYSTEM PROVIDED HISTORY: Reason for Exam: foot pain FINDINGS: No visible acute fracture or dislocation. Incidental note is made of an os perineum. Normal osseous mineralization. No visible aggressive osseous lesions. There is no significant arthrosis present. Normal midfoot alignment. No tibiotalar effusion. Minimal atherosclerosis. No visible radiopaque foreign body. IMPRESSION: 1. No acute fracture or dislocation. Interpreted by: Jaycob Schwartz DO Preliminary Report By: Jaycob Schwartz DO Electronically signed By Jaycob Schwartz DO Dictated Date: 08/15/2022 7:57:18 PM Prelim Date: 08/15/2022 7:58:22 PM Sign Date: 08/15/2022 7:58:22 PM Ordering Provider: [facility]02-16-2023 NoteHNO ID: [id number] Author: Harini Araujo RN Service: Interventional Radiology Author Type: Registered Nurse Type: Nursing Progress Note Filed: 08/08/2022 8:42 AM Note Text: [facility] of Present illness Narrative* Sneha Vaughan MA - 07/31/2022 5:26 PM EST Scan on 07/30/2022 11:02 PM by External Provider: Consultation - Emergency Medicine Scan on 07/30/2022 9:19 PM by External Provider: X-ray Please review. Sneha Vaughan MA [facility] Miscellaneous Notes* Telephone Encounter - Autumn Gomez - 07/31/2022 11:31 AM EST Pt called states he was at [facility] last night. States he was told he has in infection somewhere in his body. He had a fever, and left sided chest pain. Discharged with no medication and told to take tylenol. Pt never heard from IR for pleural cath removal. documented in [facility] [facility] July 30, 2022 10:55pm Note Date/Time July 30, 2022 8 :32pm [facility] Medical Records Department [address] [place] [address] Emergency Department Summary 07/30/22 MR#: [id number] Acct: [id number] Name: CARLITOS SWEENEY Rep #:[id number] : 1975 46 From: [place] Ha DO PCP: Dr. Tom Conte MD Status:[facility] ER Location: ED HPI History of Present Illness Chief Complaint: Chest Other Narrative Narrative: 46-year-old male with history of nonischemic cardiomyopathy, hypertension, end- stage renal disease on dialysis presenting with fever for the last week. He states that for the last week he has had fevers at night of less than 100 ?F. Last night he said his temperature was 104 ?F. He states that he just sat in took a couple of deep breaths and relax and his fever went away. He did not take anything to treat the fever. He states that he does have a defibrillator and upper chest wall. He reports that this was really red and tender. It is now back to normal. Patient also has a right- sided chest tube in. This is managed by [facility]. He supposed to have this out in a week or so. He states he does not still try to drain fluid from this and is notgetting much. He states that his surgeon request that he call him back in a week and report again. Other than the fever the patient states he is not very sent home. He has a little bit of stomach upset. [facility] Medical History Anemia due to chronic renal failure treated with erythropoietin, stage 5 Anxiety and depression Chronic systolic (congestive) heart failure COPD (chronic obstructive pulmonary disease) ESRD (end stage renal disease) on dialysis Essential hypertension GERD (gastroesophageal reflux disease) History of implantable cardiac defibrillator (ICD) (02/03/15) Hyperkalemia Hyperphosphatemia Non compliance w medication regimen Non compliance with medical treatment Non-compliance with renal dialysis Non-ischemic cardiomyopathy Problem with dialysis access Renal transplant failure and rejection Systolic murmur Home Medications acetaminophen 325 mg tablet 650 mg PO Q4H PRN Pain 07/07/19 [History Last Taken Unknown] calcium acetate(phosphat bind) 667 mg capsule 2,668 mg PO TIDCM phosphate /15/20 [History Last Taken Unknown] hydralazine 50 mg tablet 50 mg PO TID 08/21/21 [History Last Taken Unknown] lisinopril 5 mg tablet 5 mg PO DAILY 08/21/21 [History Last Taken Unknown] sevelamer carbonate 800 mg tablet 800 mg PO TID 08/21/21 [History Last Taken Unknown] nifedipine 90 mg tablet,extended release 24 hr 90 mg PO DAILY #90 tabs 06/19/22 [Rx Last Taken Unknown] Allergy/AdvReac Type Severity Reaction Status Date / Time Iodinated Contrast Media Allergy Fever and Verified 07/30/22 19:31 [CONTRASTS] skin rash Penicillins Allergy Anaphylaxis Verified 07/30/22 19:31 cyclobenzaprine AdvReac dizzy, Verified 07/30/22 19:31 [From Flexeril] faints tramadol [From Ultram] AdvReac Rash Verified 07/30/22 19:31 Family History Father Diabetes Heart disease Hypertension Presence of implantable cardioverter-defibrillator (ICD) Brother Heart disease Hypertension Diabetes Presence of implantable cardioverter-defibrillator (ICD) LVAD (left ventricular assist device) present Surgical History Hx of cholecystectomy Hx of kidney transplant Hx of partial thyroidectomy (12/07/99) Presence of surgically created primary arteriovenous shunt for hemodialysis Social History Smoking Status: Current every day smoker tobacco type: cigarettes second hand exposure: Yes quit status: considering quitting alcohol intake: never substance use type: does not use caffeine: Yes Type: carbonated beverages Number of servings: 3 what type of physical activity do you participate in: walking frequency: daily seatbelt use: always ROS ROS ED Constitutional Constitutional ED: Reports fever(s) Eyes Eyes: Denies change in vision ENT ENT ED: Denies rhinorrhea or sore throat Cardiovascular Cardiovascular: Reports chest pain Respiratory/Chest Respiratory/Chest: Denies cough or dyspnea Gastrointestinal Gastrointestinal: Reports nausea; Denies abdominal pain Genitourinary Genitourinary ED: Denies dysuria or hematuria Musculoskeletal Musculoskeletal: Denies arthralgias or back pain Integumentary Denies abscess or Abrasions Neurologic Neurologic: Denies headache(s) Psychiatric Psychiatric: Denies anxiety or depression EXAM Physical Exam Const Vital Signs: 07/30/22 19:27 07/30/22 20:27 Temperature 99.9 F H Temperature Source Oral Pulse Rate 102 H 78 Respiratory Rate 16 16 Blood Pressure 131/75 H 134/78 H Blood Pressure Mean 93 96 Pulse Ox 93 99 Oxygen Delivery Method Room Air Room Air Positive well nourished General Appearance ED: NAD HEENT atraumatic Eyes PERRL and EOMs intact bilaterally Chest Wall Chest Narrative: Defibrillator site nontender. No surrounding erythema or induration. No fluctuance. Resp normal respiratory effort and clear to auscultation bilaterally Resp Narrative: Equal symmetric breath sounds and chest wall rise. Cardio regular rhythm Rate: regular rate GI normal to inspection, nondistended, normoactive bowel sounds Neuro oriented x3 and CN's II-XII intact bilaterally Sensorium / Orientation: alert and oriented to person Motor Exam: strength 5/5 throughout Psych mental status grossly normal and thought process normal Skin no rashes or lesions noted MDM MDM MDM Narrative Medical decision making narrative: 46-year-old male presenting with fevers for the last week. He states the only happen at night. From what sounds like he did not have a fever until last nightand he states it was 104 ?F and he did nothing for this and it resolved on its own. Nobody else in his household is sick. He states he does not feel ill. Hedoes state that there is a tingling sensation from where his pacemaker defibrillator that to the left shoulder. He states not painful. He does reportthis was previously reddened but it does not look that way currently. There is no fluctuance induration or erythema. The area is not tender. Lungs clear to auscultation bilaterally. Patient slightly tachycardic at a heart rate of 102 initially but after settling in the bed he is 78. Temperature 99.9. Pulse ox currently anywhere 93 to 99%. Differential diagnosis pneumonia, viral etiology most likely. Patient does have a indwelling chest tube for pneumothorax. States is not draining anymore. Does not look infected on examination. CBC to assess white blood cell count, hemoglobin, differential. No leukocytosis. Hemoglobin stable 8.5. Platelet count 318. Minimal left shift. CMP to assess renal function, liver function, electrolytes, glucose and anion gap. LFTs are normal. Glucose 99 no anion gap. Creatinine 10.3 however patient is end-stage renal disease on dialysis. Sodium slightly low at 132. Potassium is normal. EKG normal sinus rhythm with a ventricular rate of 90 bpm with evidence of LVH.High-sensitivity troponin was 41. this is actually much lower than his normal troponins in the past. Patient also had recent negative stress test. COVID and influenza to assess for viral sources and these are negative. Chest x-ray on my interpretation shows a mild increase in the right pleural effusion however the radiologist interpretation agrees. Given patient's essentially normal work-up believe he is stable for discharge. Return precautions were discussed. Impression: 1. Febrile illness Lab Data Attestation: I reviewed the patient's lab results. Labs: Laboratory Results - last 24 hr 07/30/22 07/30/22 20:40 20:40 WBC 8.1 RBC 3.21 L Hgb 8.5 L Hct 27.1 L MCV 84.4 MCH 26.5 L MCHC 31.4 L RDW Std Deviation 46.5 H RDW Coeff of Good 15.1 H Plt Count 318 MPV 8.5 Immature Gran % (Auto) 0.500 Neut % (Auto) 77.1 H Lymph % (Auto) 8.6 L [place] % (Auto) 12.8 H Eos % (Auto) 0.6 Baso % (Auto) 0.4 Absolute Neuts (auto) 6.2 Absolute Lymphs (auto) 0.70 L Nucleated RBC % 0 Sodium 132 L Potassium 4.8 Chloride 93 L Carbon Dioxide 29.0 Anion Gap 10 BUN 55 H Creatinine 10.30 H* Estim Creat Clear Calc 8.56 Est GFR (MDRD) Af Amer 7 L Est GFR (MDRD) Non-Af 6 L BUN/Creatinine Ratio 5.3 L Glucose 99 Calcium 7.8 L Total Bilirubin 0.50 AST 28 ALT 20 Alkaline Phosphatase 95 Troponin I High Sens 41 Total Protein 7.6 Albumin 2.5 L Globulin 5.1 H Albumin/Globulin Ratio 0.5 L Radiography Diagnostic Testing: Clinical Impression(s) from Imaging Studies Chest X-Ray 07/30/22 20:55 IMPRESSION: Increased right pleural effusion. Normal appearance of the cardiac device and leads. Electronically Signed: Cristiano Ngo MD at 21:15 EST , Discharge Plan Triage Chief Complaint: Chest Other ED Provider: [place] Ha Dx/Rx/DC Orders Prescriptions: No Action acetaminophen 325 mg tablet 650 mg PO Q4H PRN (Reason: Pain) calcium acetate(phosphat bind) 667 mg capsule 2,668 mg PO TIDCM Label Comments: kidneys Rx Instructions: Take 2 caps with each snack hydralazine 50 mg tablet 50 mg PO TID sevelamer carbonate 800 mg tablet 800 mg PO TID Rx Instructions: must administer with a meal/food lisinopril 5 mg tablet 5 mg PO DAILY nifedipine 90 mg tablet extended release 24hr 90 mg PO DAILY Qty: 90 3RF Primary Care Provider: Tom Conte Referrals: Tom Conte MD [Primary Care Provider] - What to do if you have Problems For any increased pain, shortness of breath, bleeding, nausea or vomiting, chestpain, or any unexpected problems, contact your Primary Care Provider. Call [facility] ([phone]) or report to the closest Emergency Room. Call 911 if necessary. 07/30/22 1838 <Electronically signed by Maine Ha DO> Cosigner Signature (if applicable): CC: Dr. Tom Conte MD ~ Signed [facility] Work Phone: [phone]) 177-731802-02-2023 Miscellaneous Notes* Telephone Encounter - Autumn Gomez - 07/25/2022 3:47 PM EST Pt's called again to say pt is still having pain on the left side. Autumn Gomez RN * Telephone Encounter - Joan Eduardo Ma - 07/25/2022 3:27 PM EST Spoke to Naomi in IR and she is going to take care of this order. * Telephone Encounter - Autumn Gomez - 07/25/2022 1:[address] order for removal. Autumn Gomez RN * Telephone Encounter - Autumn Gomez - 07/24/2022 3:42 PM EST Pt called wanted Dr. Field to know he is having sharp pain on his left side by his lung and I still haven't got anything off the right lung yet Autumn Gomez RN [facility] Miscellaneous Notes* Telephone Encounter - Hilda Juárez RN - 07/15/2022 1:48 PM EST Images from the original note were not included. Patient notified of orders placed by Dr. Field and message below. Patient verbalized understanding and had nothing further. Manjit Field MD You 10 minutes ago (1:35 PM) AM Thank you for the update. We will no longer pursue the PA for the lidocaine. I ordered a chest x-ray to be obtained in about a week and we will assess after that. Thank you appreciate your help. Please let the patient know. Daniela Juárez RN July 15, 2022 1:48 PM * Addendum Note - Manjit Field MD - 07/15/2022 1:35 PM ESTAddended by: MANJIT FIELD on: 07/15/2022 01:35 PM Modules accepted: Orders * Telephone Encounter - Hilda Juárez RN - 07/15/2022 1:13 PM EST Patient called in to notify Dr. Field of drainage from pleurx catheter. Patient reports, 0 - 2.5 mL of beer-colored drainage every other day. While patient on phone, RN requested updated insurance cards need for Lidoderm PA. Patient states, he's working on it but is using OTC Lidocaine and that is working. States, not necessary to obtain PA at this time. Hilda Juárez RN July 15, 2022 1:17 PM documented in [facility]01-23-2023 Miscellaneous Notes* Telephone Encounter - Hilda Juárez RN - 07/15/2022 1:18 PM EST Patient states, PA no longer needed. See Telephone Encounter titled drainage. Hilda Juárez RN July 15, 2022 1:19 PM * Telephone Encounter - Hilda Juárez RN - 07/05/2022 10:43 AM EST Patient sent [employer] message requesting instructions on how to upload insurance cards. RN responded. Please see [employer] message. Hilda Juárez RN July 05, 2022 10:44 AM * Telephone Encounter - Hilda Juárez RN - 07/02/2022 8:17 AM EST Received a fax from [employer] stating, patient is ineligible or cannot be found. RN used [employer] and spoke with Sally who ran the Member ID on card and states, they do not have that patient on file. RN sent message via [employer] to patient to update insurance information. Hilda Juárez RN July 02, 2022 8:33 AM * Telephone Encounter - Hilda Juárez RN - 07/01/2022 3:29 PM EST Payer: [employer] Sorry but [employer] cannot process this PA request electronically. Please refer to the original instructions from the PBM for information on how to process this prior authorization manually. Prior Authorization for LIDODERM initiated via [employer]. Form faxed along with supporting documents. Hilda Juárez RN July 01, 2022 3:31 PM documented [facility] History of Present illness Narrative* Manjit Field MD - 07/01/2022 2:19 PM EST Images from the original note were not included. [facility] Established Patient Follow Up note SERVICE DATE: July 01, 2022 LAST VISIT DATE: March 18, 2022 PRIMARY CARE PHYSICIAN: Tom Conte MD Consultation requested by Dr. Conte for an opinion regarding right pleural effusion. My final recommendations will be communicated back to the requesting physician by way of shared Medical record orletter to requesting physician via US mail. SUBJECTIVE CHIEF COMPLAINT: Right-sided pleural effusion. HPI: Carlitos Sweeney is a 46 year old male here for evaluation of right-sided pleural effusion. His PMH is significant for ESRD on HD, hypertension, HFrEF status post AICD currently EF of 40%, congenital solitary kidney, multiple comorbidities with recurrent right-sided pleural effusion and shortness of breath associated with it. Since his last visit he had a Pleurx catheter placed after consulting with cardiothoracic surgery. Initially he was draining well but had repeated events of clogging and decision was made to increasethe size. After changing the Pleurx to a larger 1 about a week ago he noticed that the drainage hasdecreased but he is complaining of severe pain at the site of insertion. He did have to go to the emergency department a few days ago as the dressing was soaked with blood. He states that his breathing is much better and he is able to do more now especially with the less drainage and his main concern is that the pain is not preventing him to take deep breath. Otherwise denies any significant weight loss, fever, chills, lightheadedness, dizziness, fatigue, abdominal pain or any other significant symptoms. PMH: PAST MEDICAL HISTORY Diagnosis Date Abdominal pain 10/01/2013 Anemia of chronic renal failure 08/18/2015 Anxiety 10/01/2013 BENIGN HYP RENAL W KID FAIL 02/11/2005 Chronic combined systolic and diastolic CHF (congestive heart failure) ([facility]) 08/18/2015 Seeing cardio in [place] (has pace maker/defibulator) Chronic kidney disease, stage 5 ([facility]) Dialysis M,W,F @ [facility] Chronic obstructive pulmonary disease ([facility]) 08/18/2015 CKD (chronic kidney disease) stage 4, GFR 15-29 ml/min ([facility]) 04/26/[address] 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 End stage renal failure on dialysis ([facility]) 02/12/2017 Essential hypertension 09/10/2013 Gastroesophageal reflux disease without esophagitis 10/23/2016 Hemodialysis patient (HCC) 03/28/2016 Hyperkalemia 02/12/2017 Hyperphosphatemia 02/12/2017 Hypertensive heart disease with congestive heart failure (HCC) 02/12/2017 Hypocalcemia 02/12/2017 Implantable cardioverter-defibrillator (ICD) in situ 02/12/2017 Kidney replaced by transplant 05/27/97 Kidney transplant failure and rejection 05/12/2013 Kidney transplant rejection 05/12/2013 Moderate episode of recurrent major depressive disorder (HCC) 10/23/2016 MRSA colonization, nasal 02/28/2014 Presence of combination internal cardiac defibrillator (ICD) and pacemaker Psychophysiological insomnia 11/14/2020 Patient needs substance agreement and Tox screening done at appt on 01/10/2021. If cancels or No Shows the Belsomra will be stopped. Smoker 08/18/2015 Started at age 14 up to 1-1.5 PPD, currently at 1/2 PPD (10/2016), as of 05/2019 less than 1/2 a PPD PSH: PAST SURGICAL HISTORY Procedure Laterality Date 2D ECHO (EXEP) 11/02/2020 EF=50%, mod Joshi dysf CHOLECYSTECTOMY INSJ TUNNELED CVC W/O SUBQ PORT/MANAGER TRAINING AND DEVELOPMENT AGE 3 YR/> 01/21/2014 PAST SURGICAL HISTORY OF 05/1997 Renal Transplant, cadaveric PAST SURGICAL HISTORY OF 09/2011 renal transplant PAST SURGICAL HISTORY OF Right cautery right nare for chronic nosebleeds PAST SURGICAL HISTORY OF 01/31/2017 LEFT UPPER ARM AVG Family Hx: Family History Problem Relation Age of Onset Diabetes Father Heart Father Asthma Brother Heart Brother Diabetes Paternal Uncle Anesthesia Problems No Family History SOCIAL HISTORY: Social History Tobacco Use Smoking status: Every Day Packs/day: 0.50 Years: 29.00 Pack years: 14.50 Types: Cigarettes Smokeless tobacco: Never Tobacco comments: off and on, less than half of pack Vaping Use Vaping Use: Never used Substance Use Topics Alcohol use: No Drug use: No MEDICATIONS: Current Outpatient Medications Medication Sig Dispense Refill hydrALAZINE (APRESOLINE) 50 mg tablet Take 50 mg by mouth three times daily. NIFEdipine XL (ADALAT CC) 30 mg 24 hr tablet Take 30 mg by mouth twice daily. sevelamer carbonate (RENVELA) 800 mg tablet Take 1 tablet by mouth three times daily. lisinopril (ZESTRIL, PRINIVIL) 5 mg tablet 5 mg. amLODIPine (NORVASC) 10 mg tablet Take 1 tablet by mouth once daily. 0 acetaminophen (TYLENOL) 325 mg tablet Take 2 tablets every 4 hours as needed for pain. calcium acetate (PHOSLO) 667 mg tab Take 667 mg by mouth as directed. takes 4 capsules 3 times a day plus 2 capsules with each snack. carvedilol (COREG) 25 mg tablet Take 25 mg by mouth twice daily with meals. lidocaine (LIDODERM) 5 % Apply 1 Patch as directed every 24 hours. 10 Patch 2 azithromycin (ZITHROMAX) 250 mg tablet Take 2 tabs on the first day, then one tab daily for 4 days.(Patient not taking: Reported on 04/01/2022) 6 tablet 0 methylPREDNISolone (MEDROL, CHETAN,) 4 mg Dose-Pack Use orally as directed. (Patient not taking: Reported on 04/01/2022) 21 tablet 0 No current facility-administered medications for this visit. ALLERGIES Allergen Reactions Iodinated Contrast * Rash Cyclobenzaprine Unknown Dye Other: See Comments IV contrast makes pt run a high temperature Penicillins Rash Procardia [Nifedipi* Swelling Tramadol Unknown (Not in a hospital admission) CURRENT ALLERGIES: ALLERGIES Allergen Reactions Iodinated Contrast * Rash Cyclobenzaprine Unknown Dye Other: See Comments IV contrast makes pt run a high temperature Penicillins Rash Procardia [Nifedipi* Swelling Tramadol Unknown COMPLETE REVIEW OF SYSTEMS: REVIEW OF SYSTEMS 12 Point ROS done and negative except HPI. OBJECTIVE PHYSICAL EXAMINATION: VITAL SIGNS: BP 152/80 Pulse 89 Temp 98.9 Resp 16 Ht 5' 11 (1.80m) Wt 152 lb 14.4 oz (69.4kg) SpO2 100% BMI 21.33 kg/(m^2). General appearance- NAD, no conversational dyspnea. Ambulates without assistance Eyes: PERRLA; anicteric sclera, No conjunctival injection; No heliotrope rash. ENMT: Gross hearing intact. No oral ulcers. No oral thrush. Mallampati class 4 Neck: No palpable DELPHINE; No obvious goiter; No JVD Cardiovascular: RRR w/o murmurs Respiratory: Good air entry with no added sounds on the left side. Diminished air entry on the right lower side with stony dullness on percussion, unchanged. No crackles, wheezes, or rhonchi. No accessory muscle use. Good effort. No kyphosis. Gastrointestinal: soft, NT/ND, BS+ Skin: No visible rashes, lesions, or subcutaneous nodules; No Gottron's papules; normal temperature Psychiatric: Alert and oriented x person, place and time; cooperative, appropriate affect Neurological: Gross sensation intact. EOMI, moving all extremities Musculoskeletal: No clubbing or cyanosis; No joint effusions, swelling or erythema; strength 5/5 throughout; normal tone Extremities: Peripheral pulses present; No edema DATA: Diagnostic tests reviewed for today's visit, films/specimens were personally reviewed by me: Labs: CBC with diff: WBC 4.36 07/17/2021 RBC 2.99 07/17/2021 HGB 8.3 07/17/2021 HCT 27.5 07/17/2021 MCV 92.0 07/17/2021 MCH 27.8 07/17/2021 MCHC 30.2 07/17/2021 RDW-CV 14.6 07/17/2021 PLT 252 07/17/2021 MPV 9.0 07/17/2021 Neut% 57.7 07/17/2021 Lymph% 22.7 07/17/2021 [place]% 13.5 07/17/2021 Eosin% 5.0 07/17/2021 Baso% 1.1 07/17/2021 Abs Neut (ANC) 2.50 07/17/2021 Abs [place] 0.59 07/17/2021 Abs Eosin 0.22 07/17/2021 Abs Baso 0.05 07/17/2021 Diagnostic Work Up: CT chest: Done 02/14/22 IMPRESSION: 1. Right thoracentesis with moderate residual effusion. Diffuse congestive changes. 2. Improved ventilation of the peroneal persist and atelectatic changes in the basal segments, possibly a combination of basilar atelectasis and scarring. Recommend follow-up to assess for resolution. 3. A 0.6 cm nodularity with coarse calcification in the superior lingula is incompletely characterized. Recommend follow-up CT in 12 months to assess stability. Done February 11, [address] [facility] showing right-sided pleural effusion with possible loculation and tracheal deviation towards the left because of the pleural effusion. There is no evidence of emphysema on that scan. Done February 04, 2022 showed moderate to large right-sided pleural effusion. Chest xray: 03/11/22 RESULT: Lines, tubes, and devices: Left chest AICD with leads profiling right atrium and right ventricle. Lungs and pleura: No pneumothorax. Pleural parenchymal opacities at the right lung base likely representing combination of right lower lung atelectasis and small to moderate-sized pleural effusion. The effusion is decreased in size from prior chest x-ray. Cardiomediastinal silhouette: Normal cardiomediastinal silhouette. Done February 11, 2022 showed right-sided whiteout with no other significant findings. Done November 01, 2021 showed moderate fluid atelectasis at the right base. Superimposed consolidation cannot be ruled out. Heart echo: Done October 2021, showing LVEF of 40% with no significant findings otherwise. PFT: None recent in our records. 1997 Spirometry indicates mild restriction by FVC. Recommend lung volumes and diffusing capacity if clinically indicated. Note:LLN is the lower limit of normal for each value Pred LLN Pre %Pred Post %Chg Date 01/19/98 Time 09:51:32AM FVC 5.55 4.43 3.93 71 FEV 1 4.61 3.77 3.78 82 Ratio 83.6 75.4 96.0 115 25-75% 4.86 3.20 6.55 135 PEF 9.85 7.08 10.8 110 FEF 50 6.07 4.56 7.30 120 FIF 50 8.79 FE%FIF 83.0 FET 6.53 Reviewed all his chest x-rays since last visit with the last 1 showing decreased left-sided pleuraleffusion and in between there was ultrasound showing loculated effusion preinsertion of the last chest tube/Pleurx. Patient had dressing with him and I removed the old dressing and placed a new 1 there is no evidence of any infection with no erythema, no discharge and small amount of dried blood on the dressing. Dressing was changed under sterile conditions. ASSESSMENT 1. Pleural effusion - ICD9: 511.9, ICD10: J90 (primary diagnosis) 2. Recurrent right pleural effusion - ICD9: 511.9, ICD10: J90 Continue with regular drainage of the Pleurx catheter. Lidocaine patches for the local pain, patient tried [id number] lidocaine 4% with minimal painimprovement. Will prescribe 5%. If drainage is minimal over the next 2 to 3 weeks we will obtain chest x-ray to assess if there is any residual fluid and if none then can consider removing the Pleurx catheter. If patient has consistent drainage chest x-ray does not need to be done. Continue dressing as regular. Continue remaining management as planned. PLAN: Orders Placed This Encounter XR CHEST 2V FRONTAL/LAT Standing Status: Future Standing Expiration Date: 07/31/2023 lidocaine (LIDODERM) 5 % Sig: Apply 1 Patch as directed every 24 hours. Dispense: 10 Patch Refill: 2 Return in about 3 months (around 09/29/2022). Copy to Referring physician Thank you for allowing me to participate in this patient's care. Medical Decision Making: Level: 4 - Moderate SIGNATURE: Manjit Field MD PATIENT NAME: Carlitos Sweeney DATE: July 01, 2022 TIME: 2:19 PM PAGER/CONTACT #: [phone] documented in [facility] History of Past illness Narrative* Problem Noted Date Resolved Date Acute respiratory failure with hypoxemia 023 11/21/2022 Edema of lower extremity 07/01/2022 023 Recurrent right pleural effusion 02/12/2022 11/21/2022 Last Assessment & Plan: Assessment: This is most likely related to his ESRD and heart failure, but cannot rule out other etiologies. At this point we will proceed with ultrasound-guided thoracentesis and fluid analysis. We will obtain repeat chest CT after the thoracentesis is done. Discussed the pros and cons and the details of the procedure with the patient and he is in agreement. PLAN: Continue dialysis with ESRD. Ultrasound-guided thoracentesis and fluid analysis. Repeat CT chest. documented as of this encounter (statuses as of 11/22/2022) [facility] of Past illness Narrative* Problem Noted Date Resolved Date Acute respiratory failure with hypoxemia 023 11/21/2022 Edema of lower extremity 07/01/2022 023 Recurrent right pleural effusion 02/12/2022 11/21/2022 Last Assessment & Plan: Assessment: This is most likely related to his ESRD and heart failure, but cannot rule out other etiologies. At this point we will proceed with ultrasound-guided thoracentesis and fluid analysis. We will obtain repeat chest CT after the thoracentesis is done. Discussed the pros and cons and the details of the procedure with the patient and he is in agreement. PLAN: Continue dialysis with ESRD. Ultrasound-guided thoracentesis and fluid analysis. Repeat CT chest. documented as of this encounter (statuses as of 11/26/2022) [facility] of Past illness Narrative* Problem Noted Date Diagnosed Date Resolved Date Acute respiratory failure with hypoxemia 07/01/2022 11/21/2022 Edema of lower extremity 07/01/202206/2022 Recurrent right pleural effusion 02/12/2022 11/21/2022 Last Assessment & Plan: Assessment: This is most likely related to his ESRD and heart failure, but cannot rule out other etiologies. At this point we will proceed with ultrasound-guided thoracentesis and fluid analysis. We will obtain repeat chest CT after the thoracentesis is done. Discussed the pros and cons and the details of the procedure with the patient and he is in agreement. PLAN: Continue dialysis with ESRD. Ultrasound-guided thoracentesis and fluid analysis. Repeat CT chest. documented as of this encounter (statuses as of 01/21/2023) [facility] of Past illness Narrative* Problem Noted Date Diagnosed Date Resolved Date Acute respiratory failure with hypoxemia 07/01/2022 11/21/2022 Edema of lower extremity 07/01/202206/2022 Recurrent right pleural effusion 02/12/2022 11/21/2022 Last Assessment & Plan: Assessment: This is most likely related to his ESRD and heart failure, but cannot rule out other etiologies. At this point we will proceed with ultrasound-guided thoracentesis and fluid analysis. We will obtain repeat chest CT after the thoracentesis is done. Discussed the pros and cons and the details of the procedure with the patient and he is in agreement. PLAN: Continue dialysis with ESRD. Ultrasound-guided thoracentesis and fluid analysis. Repeat CT chest. documented as of this encounter (statuses as of 01/21/2023) [facility] of Past illness Narrative* Problem Noted Date Diagnosed Date Resolved Date Acute respiratory failure with hypoxemia 07/01/2022 11/21/2022 Edema of lower extremity 07/01/202206/2022 Recurrent right pleural effusion 02/12/2022 11/21/2022 Last Assessment & Plan: Assessment: This is most likely related to his ESRD and heart failure, but cannot rule out other etiologies. At this point we will proceed with ultrasound-guided thoracentesis and fluid analysis. We will obtain repeat chest CT after the thoracentesis is done. Discussed the pros and cons and the details of the procedure with the patient and he is in agreement. PLAN: Continue dialysis with ESRD. Ultrasound-guided thoracentesis and fluid analysis. Repeat CT chest. documented as of this encounter (statuses as of 03/04/2023) [facility] of [facility] illness Narrative* Problem Noted Date Diagnosed Date Resolved Date Acute respiratory failure with hypoxemia 07/01/2022 11/21/2022 Edema of lower extremity 07/01/202206/2022 Recurrent right pleural effusion 02/12/2022 11/21/2022 Last Assessment & Plan: Assessment: This is most likely related to his ESRD and heart failure, but cannot rule out other etiologies. At this point we will proceed with ultrasound-guided thoracentesis and fluid analysis. We will obtain repeat chest CT after the thoracentesis is done. Discussed the pros and cons and the details of the procedure with the patient and he is in agreement. PLAN: Continue dialysis with ESRD. Ultrasound-guided thoracentesis and fluid analysis. Repeat CT chest. documented as of this encounter (statuses as of 03/06/2023) [facility] of [facility] illness Narrative* Problem Noted Date Diagnosed Date Resolved Date Acute respiratory failure with hypoxemia 07/01/2022 11/21/2022 Edema of lower extremity 07/01/202206/2022 Recurrent right pleural effusion 02/12/2022 11/21/2022 Last Assessment & Plan: Assessment: This is most likely related to his ESRD and heart failure, but cannot rule out other etiologies. At this point we will proceed with ultrasound-guided thoracentesis and fluid analysis. We will obtain repeat chest CT after the thoracentesis is done. Discussed the pros and cons and the details of the procedure with the patient and he is in agreement. PLAN: Continue dialysis with ESRD. Ultrasound-guided thoracentesis and fluid analysis. Repeat CT chest. documented as of this encounter (statuses as of 03/12/2023) [facility] of [facility] illness Narrative* Problem Noted Date Diagnosed Date Resolved Date Acute respiratory failure with hypoxemia 07/01/2022 11/21/2022 Edema of lower extremity 07/01/202206/2022 Recurrent right pleural effusion 02/12/2022 11/21/2022 Last Assessment & Plan: Assessment: This is most likely related to his ESRD and heart failure, but cannot rule out other etiologies. At this point we will proceed with ultrasound-guided thoracentesis and fluid analysis. We will obtain repeat chest CT after the thoracentesis is done. Discussed the pros and cons and the details of the procedure with the patient and he is in agreement. PLAN: Continue dialysis with ESRD. Ultrasound-guided thoracentesis and fluid analysis. Repeat CT chest. documented as of this encounter (statuses as of 03/13/2023) [facility] illness Narrative* Problem Noted Date Diagnosed Date Resolved Date Acute respiratory failure with hypoxemia 07/01/2022 11/21/2022 Edema of lower extremity 07/01/202206/2022 Recurrent right pleural effusion 02/12/2022 11/21/2022 Last Assessment & Plan: Assessment: This is most likely related to his ESRD and heart failure, but cannot rule out other etiologies. At this point we will proceed with ultrasound-guided thoracentesis and fluid analysis. We will obtain repeat chest CT after the thoracentesis is done. Discussed the pros and cons and the details of the procedure with the patient and he is in agreement. PLAN: Continue dialysis with ESRD. Ultrasound-guided thoracentesis and fluid analysis. Repeat CT chest. documented as of this encounter (statuses as of 05/23/2023) [facility] of [facility] illness Narrative* Problem Noted Date Diagnosed Date Resolved Date Acute respiratory failure with hypoxemia 07/01/2022 11/21/2022 Edema of lower extremity 07/01/202206/2022 Recurrent right pleural effusion 02/12/2022 11/21/2022 Last Assessment & Plan: Assessment: This is most likely related to his ESRD and heart failure, but cannot rule out other etiologies. At this point we will proceed with ultrasound-guided thoracentesis and fluid analysis. We will obtain repeat chest CT after the thoracentesis is done. Discussed the pros and cons and the details of the procedure with the patient and he is in agreement. PLAN: Continue dialysis with ESRD. Ultrasound-guided thoracentesis and fluid analysis. Repeat CT chest. documented as of this encounter (statuses as of 05/29/2023) [facility] of [facility] illness Narrative* Problem Noted Date Diagnosed Date Resolved Date Acute respiratory failure with hypoxemia 07/01/2022 11/21/2022 Edema of lower extremity 07/01/202206/2022 Recurrent right pleural effusion 02/12/2022 11/21/2022 Last Assessment & Plan: Assessment: This is most likely related to his ESRD and heart failure, but cannot rule out other etiologies. At this point we will proceed with ultrasound-guided thoracentesis and fluid analysis. We will obtain repeat chest CT after the thoracentesis is done. Discussed the pros and cons and the details of the procedure with the patient and he is in agreement. PLAN: Continue dialysis with ESRD. Ultrasound-guided thoracentesis and fluid analysis. Repeat CT chest. documented as of this encounter (statuses as of 05/29/2023) [facility] Narrative* Problem Noted Date Diagnosed Date Resolved Date Acute respiratory failure with hypoxemia 07/01/2022 11/21/2022 Edema of lower extremity 07/01/202206/2022 Recurrent right pleural effusion 02/12/2022 11/21/2022 Last Assessment & Plan: Assessment: This is most likely related to his ESRD and heart failure, but cannot rule out other etiologies. At this point we will proceed with ultrasound-guided thoracentesis and fluid analysis. We will obtain repeat chest CT after the thoracentesis is done. Discussed the pros and cons and the details of the procedure with the patient and he is in agreement. PLAN: Continue dialysis with ESRD. Ultrasound-guided thoracentesis and fluid analysis. Repeat CT chest. documented as of this encounter (statuses as of 06/05/2023) [facility] of [facility] illness Narrative* Problem Noted Date Diagnosed Date Resolved Date Acute respiratory failure with hypoxemia 07/01/2022 11/21/2022 Edema of lower extremity 07/01/202206/2022 Recurrent right pleural effusion 02/12/2022 11/21/2022 Last Assessment & Plan: Assessment: This is most likely related to his ESRD and heart failure, but cannot rule out other etiologies. At this point we will proceed with ultrasound-guided thoracentesis and fluid analysis. We will obtain repeat chest CT after the thoracentesis is done. Discussed the pros and cons and the details of the procedure with the patient and he is in agreement. PLAN: Continue dialysis with ESRD. Ultrasound-guided thoracentesis and fluid analysis. Repeat CT chest. documented as of this encounter (statuses as of 07/24/2023) [facility] illness Narrative* Problem Noted Date Diagnosed Date Resolved Date Acute respiratory failure with hypoxemia 07/01/2022 11/21/2022 Edema of lower extremity 07/01/202206/2022 Recurrent right pleural effusion 02/12/2022 11/21/2022 Last Assessment & Plan: Assessment: This is most likely related to his ESRD and heart failure, but cannot rule out other etiologies. At this point we will proceed with ultrasound-guided thoracentesis and fluid analysis. We will obtain repeat chest CT after the thoracentesis is done. Discussed the pros and cons and the details of the procedure with the patient and he is in agreement. PLAN: Continue dialysis with ESRD. Ultrasound-guided thoracentesis and fluid analysis. Repeat CT chest. documented as of this encounter (statuses as of 08/01/2023) [facility]01-09-2023 History of Past illness Narrative* Problem Noted Date Diagnosed Date Resolved Date Acute respiratory failure with hypoxemia 07/01/2022 11/21/2022 Edema of lower extremity 07/01/202206/2022 Recurrent right pleural effusion 02/12/2022 11/21/2022 Last Assessment & Plan: Assessment: This is most likely related to his ESRD and heart failure, but cannot rule out other etiologies. At this point we will proceed with ultrasound-guided thoracentesis and fluid analysis. We will obtain repeat chest CT after the thoracentesis is done. Discussed the pros and cons and the details of the procedure with the patient and he is in agreement. PLAN: Continue dialysis with ESRD. Ultrasound-guided thoracentesis and fluid analysis. Repeat CT chest. documented as of this encounter (statuses as of 08/01/2023) [facility]01-09-2023 History of Past illness Narrative* Problem Noted Date Diagnosed Date Resolved Date Acute respiratory failure with hypoxemia 07/01/2022 11/21/2022 Edema of lower extremity 07/01/202206/2022 Recurrent right pleural effusion 02/12/2022 11/21/2022 Last Assessment & Plan: Assessment: This is most likely related to his ESRD and heart failure, but cannot rule out other etiologies. At this point we will proceed with ultrasound-guided thoracentesis and fluid analysis. We will obtain repeat chest CT after the thoracentesis is done. Discussed the pros and cons and the details of the procedure with the patient and he is in agreement. PLAN: Continue dialysis with ESRD. Ultrasound-guided thoracentesis and fluid analysis. Repeat CT chest. documented as of this encounter (statuses as of 08/05/2023) [facility]01-09-2023 History of Past illness Narrative* Problem Noted Date Diagnosed Date Resolved Date Acute respiratory failure with hypoxemia 07/01/2022 11/21/2022 Edema of lower extremity 07/01/202206/2022 Recurrent right pleural effusion 02/12/2022 11/21/2022 Last Assessment & Plan: Assessment: This is most likely related to his ESRD and heart failure, but cannot rule out other etiologies. At this point we will proceed with ultrasound-guided thoracentesis and fluid analysis. We will obtain repeat chest CT after the thoracentesis is done. Discussed the pros and cons and the details of the procedure with the patient and he is in agreement. PLAN: Continue dialysis with ESRD. Ultrasound-guided thoracentesis and fluid analysis. Repeat CT chest. documented as of this encounter (statuses as of 08/06/2023) [facility]01-09-2023 History of Past illness Narrative* Problem Noted Date Diagnosed Date Resolved Date Acute respiratory failure with hypoxemia 07/01/2022 11/21/2022 Edema of lower extremity 07/01/202206/2022 Recurrent right pleural effusion 02/12/2022 11/21/2022 Last Assessment & Plan: Assessment: This is most likely related to his ESRD and heart failure, but cannot rule out other etiologies. At this point we will proceed with ultrasound-guided thoracentesis and fluid analysis. We will obtain repeat chest CT after the thoracentesis is done. Discussed the pros and cons and the details of the procedure with the patient and he is in agreement. PLAN: Continue dialysis with ESRD. Ultrasound-guided thoracentesis and fluid analysis. Repeat CT chest. documented as of this encounter (statuses as of 08/07/2023) [facility]01-09-2023 History of Past illness Narrative* Problem Noted Date Diagnosed Date Resolved Date Acute respiratory failure with hypoxemia 07/01/2022 11/21/2022 Edema of lower extremity 07/01/202206/2022 Recurrent right pleural effusion 02/12/2022 11/21/2022 Last Assessment & Plan: Assessment: This is most likely related to his ESRD and heart failure, but cannot rule out other etiologies. At this point we will proceed with ultrasound-guided thoracentesis and fluid analysis. We will obtain repeat chest CT after the thoracentesis is done. Discussed the pros and cons and the details of the procedure with the patient and he is in agreement. PLAN: Continue dialysis with ESRD. Ultrasound-guided thoracentesis and fluid analysis. Repeat CT chest. documented as of this encounter (statuses as of 08/08/2023) [facility]01-09-2023 History of Past illness Narrative* Problem Noted Date Diagnosed Date Resolved Date Acute respiratory failure with hypoxemia 07/01/2022 11/21/2022 Edema of lower extremity 07/01/202206/2022 Recurrent right pleural effusion 02/12/2022 11/21/2022 Last Assessment & Plan: Assessment: This is most likely related to his ESRD and heart failure, but cannot rule out other etiologies. At this point we will proceed with ultrasound-guided thoracentesis and fluid analysis. We will obtain repeat chest CT after the thoracentesis is done. Discussed the pros and cons and the details of the procedure with the patient and he is in agreement. PLAN: Continue dialysis with ESRD. Ultrasound-guided thoracentesis and fluid analysis. Repeat CT chest. documented as of this encounter (statuses as of 08/08/2023) [facility]01-09-2023 History of Past illness Narrative* Problem Noted Date Diagnosed Date Resolved Date Acute respiratory failure with hypoxemia 07/01/2022 11/21/2022 Edema of lower extremity 07/01/202206/2022 Recurrent right pleural effusion 02/12/2022 11/21/2022 Last Assessment & Plan: Assessment: This is most likely related to his ESRD and heart failure, but cannot rule out other etiologies. At this point we will proceed with ultrasound-guided thoracentesis and fluid analysis. We will obtain repeat chest CT after the thoracentesis is done. Discussed the pros and cons and the details of the procedure with the patient and he is in agreement. PLAN: Continue dialysis with ESRD. Ultrasound-guided thoracentesis and fluid analysis. Repeat CT chest. documented as of this encounter (statuses as of 08/13/2023) [facility]01-09-2023 History of Past illness Narrative* Problem Noted Date Diagnosed Date Resolved Date Acute respiratory failure with hypoxemia 07/01/2022 11/21/2022 Edema of lower extremity 07/01/202206/2022 Recurrent right pleural effusion 02/12/2022 11/21/2022 Last Assessment & Plan: Assessment: This is most likely related to his ESRD and heart failure, but cannot rule out other etiologies. At this point we will proceed with ultrasound-guided thoracentesis and fluid analysis. We will obtain repeat chest CT after the thoracentesis is done. Discussed the pros and cons and the details of the procedure with the patient and he is in agreement. PLAN: Continue dialysis with ESRD. Ultrasound-guided thoracentesis and fluid analysis. Repeat CT chest. documented as of this encounter (statuses as of 08/26/2023) [facility]01-09-2023 History of Past illness Narrative* Problem Noted Date Diagnosed Date Resolved Date Acute respiratory failure with hypoxemia 07/01/2022 11/21/2022 Edema of lower extremity 07/01/202206/2022 Recurrent right pleural effusion 02/12/2022 11/21/2022 Last Assessment & Plan: Assessment: This is most likely related to his ESRD and heart failure, but cannot rule out other etiologies. At this point we will proceed with ultrasound-guided thoracentesis and fluid analysis. We will obtain repeat chest CT after the thoracentesis is done. Discussed the pros and cons and the details of the procedure with the patient and he is in agreement. PLAN: Continue dialysis with ESRD. Ultrasound-guided thoracentesis and fluid analysis. Repeat CT chest. documented as of this encounter (statuses as of 09/29/2023) [facility]12-30-2022 Miscellaneous Notes* Addendum Note - Manjit Field MD - 06/21/2022 1:32 PM ESTAddended by: MANJIT FIELD on: 06/21/2022 01:32 PM Modules accepted: Orders * Telephone Encounter - Autumn Gomez - 06/21/2022 1:27 PM EST Just spoke with IR they need a more specific order, it will need to say something in the comments like please change drain and increase tube size or evaluate for clogged tube or both. Autumn Gomez RN * Telephone Encounter - Autumn Gomez - 06/21/2022 12:18 PM EST They will need another order for IR * Telephone Encounter - Autumn Gomez - 06/21/2022 11:28 AM EST Pt called againtoday tried to drain last night and only got 15 mls out IT is clogged again. Autumn Gomez RN * Telephone Encounter - Autumn Gomez - 06/19/2022 3:19 PM EST Pt had plueral cath blockage removed on 06/14 drained well on 06/16, last night started draining okthen cloggged up again. Only got about 400 out, I can tell it isn't drained off enough documented in this [facility] Miscellaneous Notes* Telephone Encounter - Autumn Gomez - 06/11/2022 3:35 PM EST Pt called notes he has another blockage in his pleural catheter. He notes he was draining last night and got out about 600-700 then it started to trickle then it stopped completely and when I tried to to pump the bulb it was definitely shut closed . Advised pt to be awre of increased SOB if it gets to bad to go to ED. documented in this [facility] History of Present illness Narrative* Blessing Green RT(R) - 05/31/2022 12:40 PM EST Radiology Service Progress Note PATIENT NAME: Carlitos Sweeney DATE OF SERVICE: May 31, 2022 TIME: 12:48 PM PATIENT IDENTITY VERIFICATION COMPLETED USING TWO (2) IDENTIFIERS: Name and Date of confirmedby patient verbally. FALL SCREENING: Has the patient had 2 falls in the last year or 1 fall with injury or currently using an Ambulatory Assistive Device (Walker, Cane, Wheelchair, Crutches, etc.)? No PATIENT GENDER DATA: Male PATIENT RELEVANT IMPLANT DATA REVIEWED: Not Applicable RADIOLOGY DEPARTMENT: General X-ray: Exam(s) Completed: Chest X-Ray PERIPHERAL IV DATA: Not applicable SIGNED BY: RT Radha(R) May 31, 2022 12:48 PM documented in this encounterMer[facility]12-[facility]2022 Miscellaneous Notes* Result Encounter Note - Manjit Field MD - 05/31/2022 12:40 PM EST Reviewed her chest x-ray is showing that there is continued improvement in the right pleural effusion with the tubing place draining properly. I tried giving you a call earlier to discuss further. Continue to drain as instructed. We will discuss further during her next visit. documented in this [facility]Mer[facility]12-[facility]2022 Progress note* Result Encounter Note - Manjit Field MD - 05/31/2022 12:40 PM EST Reviewed her chest x-ray is showing that there is continued improvement in the right pleural effusion with the tubing place draining properly. I tried giving you a call earlier to discuss further. Continue to drain as instructed. We will discuss further during her next visit. [facility]12-07-2022 Miscellaneous Notes* Telephone Encounter - Autumn Gomez - 05/29/2022 12:28 PM EST Spoke with pt's they will go get chest Xray * Telephone Encounter - Autumn Gomez - 05/29/2022 10:18 AM EST Pt's called states they drained again last night and got very little out of the tube what should they do? * Telephone Encounter - Autumn Gomez - 05/27/2022 10:20 AM EST Pt's called notes nothing coming out of chest drain tube last 2 drain attempts. Autumn Gomez RN documented in [facility]10[facility]2022 Miscellaneous Notes* Telephone Encounter - Deonte Ponce APRN.CNP - 04/08/2022 3:19 PM EDT Called back to pt and relied answer from Dr. Huerta that this could be a piece of fat. Deonte Ponce APRN.MANUFACTURING COORDINATOR documented in this encounterMer[facility]10-13-2022 Surgical operation note* Brief Op Note - Celso Reed MD, MD - 04/04/2022 5:10 PM EDT INTERVENTIONAL RADIOLOGY POST PROCEDURE NOTE DATE: 04/04/22 NAME: Carlitos Sweeney LOG ID: [id number] Pre-Procedure Diagnosis: Recurrent pleural effusion. ESRD Staff Midwife/Apprenticeship Director: Surgeon(s) and Role: * Celso Reed MD, MD - Primary Procedure: Right tunneled pleural catheter (Aspira) Anesthesia: Procedural Sedation Findings: Tunneled catheter placed. Good position. A total of 1,500 cc of fluid were aspirated. Estimated Blood Loss: 10 mls Specimen: 10 cc of right pleural fluid to the lab. Complications: None Post-Op/Post-Procedure Diagnosis: Successful placement of tunneled right pleural catheter (Aspira) Ready to use. documented in this encounterMer[facility]10-13-2022 Miscellaneous Notes* Sedation Documentation - Aleja Shankar RN - 04/04/2022 1:22 PM EDT Teaching reviewed with significant other and family documented in this [facility]10-13-2022 History and physical note * Celso Rede MD, - 04/04/2022 10:29 AM EDT UPDATED HISTORY AND PHYSICAL EXAMINATION Date: 04/04/22 Name: Carlitos Sweeney PHYSICAL EXAM MUST BE COMPLETED ON ADMISSION The History and Physical (completed in the past 30 days) has been reviewed and the patient has beenexamined. The contents accurately reflect the patient's condition with the following additions or revisions since the H&P was completed. Examination indicates no changes. This H&P can be found in the attached. documented in this [facility]10-12-2022 Miscellaneous Notes* Telephone Encounter - Karyn Araujo RN - 04/03/2022 10:39 AM EDT Patient called regarding result PFT 04/02/22 . Karyn Araujo RN documented in this [facility]10-11-2022 History of Present illness Narrative* Autumn Chanel - 04/02/2022 9:10 AM EDT PULM FUNCTION SMARTBLOCK: Provider: Manjit Field MD Spirometry w/BD: 1 DLCO: 1 LV - Box: 1 documented in [address] [facility]Mer[facility]10-10-2022 NoteHNO ID: [id number] Author: Aj Huerta MD Service: ? Author Type: Physician Type: Progress Notes Filed: 04/01/2022 6:21 PM Note Text: PRIMARY CARE PHYSICIAN: Tom Conte [address] [place] [address] Subjective Chief Complaint Patient presents with: New Patient: Referral Leslie Field MD recurrent (R) pleural effusion. HISTORY OF PRESENT ILLNESS: Mr. Sweeney is a 46 year old male presenting to the office for evaluation of recurrent right-sided pleural effusion. He has a past medical history of ESRD on HD, 2 kidney transplants, and right AV fistula. He also has hypertension, HFrEF status post AICD with an EF of 40%, congenital solitary kidney, and a history of peritonitis with an indwelling peritoneal dialysis catheter up until about September of this year. He is a current every day smoker with about 10-ewht-ayvu history. So far has had 2 thoracenteses on the right with removal of 2 L of 1.2 L last on March 11, 2022. He was prescribed antibiotics and steroids at this time, neither which helped. Both times, the patient requested the procedure be stopped due to pain/shortness of breath and coughing, therefore fluid was left inside the chest cavity both times. Fluid returned mostly transudative with no malignant cells. The patient denies nausea, vomiting, fevers, chills, lightheadedness, dizziness, orthopnea, PND, headaches, back pain, easily bleeding or bruising, recent cancer diagnoses, or recent hospitalizations for any reason other than stated above. Review of Systems Constitutional: Negative for chills, fever, malaise/fatigue and weight loss. HENT: Negative for sore throat. Eyes: Negative for blurred vision and double vision. Respiratory: Positive for cough and shortness of breath. Negative for hemoptysis, wheezing and stridor. Cardiovascular: Positive for chest pain. Negative for palpitations, leg swelling and PND. Gastrointestinal: Negative for abdominal pain, melena, nausea and vomiting. Genitourinary: Negative for flank pain and hematuria. Musculoskeletal: Negative for myalgias. Skin: Negative for rash. Neurological: Negative for dizziness, seizures, loss of consciousness and weakness. Endo/Heme/Allergies: Does not bruise/bleed easily. Objective PAST MEDICAL HISTORY Diagnosis Date Abdominal pain 10/01/2013 Anemia of chronic renal failure 08/18/2015 Anxiety 10/01/2013 BENIGN HYP RENAL W KID FAIL 02/11/2005 Chronic combined systolic and diastolic CHF (congestive heart failure) ([facility]) 08/18/2015 Seeing cardio in [place] (has pace maker/defibulator) Chronic kidney disease, stage 5 ([facility]) Dialysis M,W,F @ [facility] Chronic obstructive pulmonary disease ([facility]) 08/18/2015 CKD (chronic kidney disease) stage 4, GFR 15-29 ml/min ([facility]) 04/26/[address] 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 End stage renal failure on dialysis ([facility]) 02/12/2017 Essential hypertension 09/10/2013 Gastroesophageal reflux disease without esophagitis 10/23/2016 Hemodialysis patient ([facility]) 03/28/2016 Hyperkalemia 02/12/2017 Hyperphosphatemia 02/12/2017 Hypertensive heart disease with congestive heart failure ([facility]) 02/12/2017 Hypocalcemia 02/12/2017 Implantable cardioverter-defibrillator (ICD) in situ 02/12/2017 Kidney replaced by transplant 05/27/97 Kidney transplant failure and rejection 05/12/2013 Kidney transplant rejection 05/12/2013 Moderate episode of recurrent major depressive disorder (HCC) 10/23/2016 MRSA colonization, nasal 02/28/2014 Presence of combination internal cardiac defibrillator (ICD) and pacemaker Psychophysiological insomnia 11/14/2020 Patient needs substance agreement and Tox screening done at appt on 01/10/2021. If cancels or No Shows the Belsomra will be stopped. Smoker 08/18/2015 Started at age 14 up to 1-1.5 PPD, currently at 1/2 PPD (10/2016), as of 05/2019 less than 1/2 a PPD PAST SURGICAL HISTORY Procedure Laterality Date 2D ECHO (EXEP) 11/02/2020 EF=50%, mod Joshi dysf CHOLECYSTECTOMY INSJ TUNNELED CVC W/O SUBQ PORT/MANAGER TRAINING AND DEVELOPMENT AGE 3 YR/> 01/21/2014 PAST SURGICAL HISTORY OF 05/1997 Renal Transplant, cadaveric PAST SURGICAL HISTORY OF 09/2011 renal transplant PAST SURGICAL HISTORY OF Right cautery right nare for chronic nosebleeds PAST SURGICAL HISTORY OF 01/31/2017 LEFT UPPER ARM AVG FAMILY HISTORY Problem Relation Age of Onset Diabetes Father Heart Father Asthma Brother Heart Brother Diabetes Paternal Uncle Anesthesia Problems No Family History Social History Tobacco Use Smoking status: Every Day Packs/day: 0.50 Years: 29.00 Pack years: 14.50 Types: Cigarettes Smokeless tobacco: Never Tobacco comments: off and on, less than half of pack Vaping Use Vaping Use: Never used Substance Use Topics Alcohol use: No Drug use: No ALLERGIES Allergen Reactions Cyclobenzaprine Unknown Dye Othe (more content not included)...[facility]10-10-2022 Miscellaneous Notes* Telephone Encounter - Chris Jean-Baptiste - 04/01/2022 4:04 PM EDT Phoned [facility] Interventional Radiology [phone] to schedule pt for placement right pleural catheter. They will call pt directly to schedule procedure. documented in this encounterMer[facility]09[facility]19[facility]2022 Miscellaneous Notes* [facility] - CONNIE RmR) - 03/11/2022 2:38 PM EDT Radiology Service Progress Note PATIENT NAME: Carlitos Sweeney DATE OF SERVICE: March 11, 2022 TIME: 2:41 PM PATIENT IDENTITY VERIFICATION COMPLETED USING TWO (2) IDENTIFIERS: Name and Date of confirmedby patient verbally and Name and Date of confirmed by identification band. FALL SCREENING: Has the patient had 2 falls in the last year or 1 fall with injury or currently using an Ambulatory Assistive Device (Walker, Cane, Wheelchair, Crutches, etc.)? No PATIENT GENDER DATA: Male PATIENT RELEVANT IMPLANT DATA REVIEWED: Not Applicable RADIOLOGY DEPARTMENT: General X-ray: Exam(s) Completed: Chest X-Ray PERIPHERAL IV DATA: Not applicable SIGNED BY: RT Jag(Leena) March 11, 2022 2:41 PM * Brief Op Note - Olga Lidia Sheridan APRN.CNP - 03/11/2022 2:19 PM EDT BRIEF OP NOTE LOG ID: [id number] Surgery/Procedure Date: 03/11/2022 Surgeon(s)/Proceduralist(s) and Social And Human Services Assistant(s): Olga Lidia Sheridan APRN.CNP Procedure(s): R thoracentesis Anesthesia: local 5 ml lidocaine Findings: 1200 ml clear yellow fluid, stopped due to pain/pressure/coughing. At least a moderate tolarge effusion remained. Estimated Blood Loss: <3 ml Specimens: No Complications: none Pre-Op/Pre-Procedure Diagnosis: effusion Post-Op/Post-Procedure Diagnosis: same SIGNATURE: Olga Lidia Sheridan APRN.CNP PATIENT NAME: Carlitos Sweeney DATE: March 11, 2022 TIME: 2:20 PM PAGER/CONTACT #: [id number] documented in this encounterMer[facility]09[facility]2022 Miscellaneous Notes* Telephone Encounter - Autumn Gomez - 02/26/2022 3:31 PM EDT Images from the original note were not included. Manjit Field MD [facility] The CXR is showing re-accumulation of the right sided pleural effusion, and we will repeat thoracentesis. Also we need the loom fixer apprentice to assess decreasing dry wt, since this is re-accumulating veryquickly. Called and left a message for pt to call office for results. documented in this [facility]09-06-2022 Miscellaneous Notes* Result Encounter Note - Manjit Field MD - 02/26/2022 12:00 PM EDT The CXR is showing re-accumulation of the right sided pleural effusion, and we will repeat thoracentesis. Also we need the loom fixer apprentice to assess decreasing dry wt, since this is re-accumulating veryquickly. documented in this [facility]09-06-2022 Progress note* Result Encounter Note - Manjit Field MD - 02/26/2022 12:00 PM EDT The CXR is showing re-accumulation of the right sided pleural effusion, and we will repeat thoracentesis. Also we need the loom fixer apprentice to assess decreasing dry wt, since this is re-accumulating veryquickly. [facility]09-06-2022 Miscellaneous Notes* Addendum Note - Manjit Field MD - 02/26/2022 10:44 AM EDTAddended by: MANJIT FIELD on: 02/26/2022 10:44 AM Modules accepted: Orders documented in this encounterMer[facility]08-25-2022 Miscellaneous Notes* [facility] - RT Gracie(R) - 02/14/2022 11:51 AM EDT Radiology Service Progress Note PATIENT NAME: Carlitos Sweeney DATE OF SERVICE: February 14, 2022 TIME: 11:51 AM PATIENT IDENTITY VERIFICATION COMPLETED USING TWO (2) IDENTIFIERS: Name and Date of confirmedby patient verbally and Name and Date of confirmed by identification band. FALL SCREENING: Has the patient had 2 falls in the last year or 1 fall with injury or currently using an Ambulatory Assistive Device (Walker, Cane, Wheelchair, Crutches, etc.)? No PATIENT GENDER DATA: Male PATIENT RELEVANT IMPLANT DATA REVIEWED: Not Applicable RADIOLOGY DEPARTMENT: General X-ray: Exam(s) Completed: Chest X-Ray PERIPHERAL IV DATA: Not applicable SIGNED BY: RT JENNIFER(R) February 14, 2022 11:51 AM * Brief Op Note - Keyla Lemons APRN.CNP - 02/14/2022 11:33 AM EDT BRIEF OPERATIVE / PROCEDURE NOTE LOG ID: [id number] SURGERY/PROCEDURE DATE: 02/14/2022 SURGEON(S)/PROCEDURALIST(S) AND SILK SCREEN ETCHER(S): Surgeon(s) and Role: Keyla Lemons CNP * Thor Olivo APRN.MANUFACTURING COORDINATOR - Primary No Additional Staff SURGERY/PROCEDURE(S): R thoracentesis ANESTHESIA: Local FINDINGS: 1.5L of clear yellow fluid removed. Thoracentesis stopped due to chest pain and coughing,patient unable to tolerate further fluid removal. Large pleural effusion remaining. ESTIMATED BLOOD LOSS: 0 ml SPECIMENS: Sent to lab COMPLICATIONS: None PRE-OP/PRE-PROCEDURE DIAGNOSIS: pleural effusion POST-OP/POST-PROCEDURE DIAGNOSIS: Same as Preop SIGNATURE: Keyla Lemons APRN.CNP PATIENT NAME: Carlitos Sweeney DATE: February 14, 2022 TIME: 11:33 AM documented in this encounterMer[facility]08-[facility]-2022 Hospital Discharge instructions Patient Education 01/27/2022 22:33:59 Muscle Strain, Extremity Muscle Strain in the Extremities A muscle strain is a stretching and tearing of muscle fibers. This causes pain, especially when youmove that muscle. There may also be some swelling and bruising. Home care Keep the hurt area raised above heart level to reduce pain and swelling. This is especially important during the first 48 hours. Apply an ice pack over the injured area for 15 to 20 minutes every 3 to 6 hours. You should do thisfor the first 24 to 48 hours. You can make an ice pack by filling a plastic bag that seals at the top with ice cubes and then wrapping it with a thin towel. Be careful not to injure your skin with the ice treatments. Ice should never be applied directly to skin. Continue the use of ice packs for relief of pain and swelling as needed. After 48 hours, apply heat (warm shower or warm bath) for 15 to20 minutes several times a day, or alternate ice and heat. You may use bbnc-vts-giepltk pain medicine to control pain, unless another medicine was prescribed.If you have chronic liver or kidney disease or ever had a stomach ulcer or gastrointestinal bleeding, talk with your healthcare provider before using these medicines. For leg strains: If crutches have been recommended, don t put full weight on the hurt leg until youcan do so without pain. You can return to sports when you are able to hop and run on the injured leg without pain. Follow-up care Follow up with your healthcare provider, or as advised. When to seek medical advice Call your healthcare provider right away if any of these occur: The toes of the injured leg become swollen, cold, blue, numb, or tingly Pain or swelling increases [phone] [employer]. [address] [place] [address] 12[address]. All rights reserved. This information is not intended as a substitute for professional medical care. Always follow yourhealthcare professional's instructions. Follow Up Care 01/27/2022 22:20:32 With:TOM CONTE MD Address: [address] [place] [id number]- When:2-4 days [facility] 08-07-2022 Emergency department Discharge summary Discharge Instructions Thank you for allowing [facility] to assist you with your healthcare needs. The following is importantdischarge information regarding your hospital visit. Diagnosis from Today's Visit Strain of muscle of left posterior lower leg Leg pain-swelling Torn muscle What to Do Next Instructions from Your Care Team No qualifying data available. Post Acute Orders No qualifying data available. You Need to Schedule the Following Appointments Follow Up with TOM CONTE MD When Within 2-4 days Where: [address] [place] [address]- Allergies penicillin (rash) Contrast dye NIFEdipine hydrALAZINE traMADol Medications Please ask your primary doctor or pharmacist before taking any other medication not listed, including over the counter drugs, herbal medications, vitamins and or supplements as they may interact withyour home medications. What How Much When Why Instructions Last Dose New acetaminophen-hydrocodone (Norman 325- 5 mg oral tablet) 1 tab(s) by mouth Every 8 hours as needed for as needed for pain Strain of muscle of left posterior lower leg Torn muscle Duration: 3 Days Printed Prescription New nabumetone (nabumetone 500 mg oral tablet) 2 tab(s) by mouth Two (2) times a day Strain of muscle of left posterior lower leg Duration: 7 Days Printed Prescription Unchanged acetaminophen (Tylenol Extra Strength 500 mg oral tablet) 3 tab(s) by mouth Every 4 hours as needed for as needed for pain Unchanged amLODIPine (amLODIPine 10 mg oral tablet) TAKE 1 TABLET AT BEDTIME Unchanged carvedilol (carvedilol 6.25 mg oral tablet) TAKE 1 TABLET BY MOUTH TWICE DAILY Unchanged clopidogrel (Plavix 75 mg oral tablet) 1 tab(s) by mouth Once a day Six months of Plavix Unchanged diphenhydrAMINE (Benadryl 25 mg oral tablet) 1 tab(s) by mouth Three (3) times a day as needed for as needed for allergy symptoms Unchanged etodolac (etodolac 400 mg oral tablet) 1 tab(s) by mouth Two (2) times a day Foot pain Duration: 7 Days Unchanged hydrALAZINE (hydrALAZINE 50 mg oral tablet) 1 tab(s) by mouth Once a day Unchanged multivitamin (Nephro-Elle oral tablet) 1 tab(s) by mouth Every day Unchanged sertraline (sertraline 25 mg oral tablet) 1 tab(s) by mouth Once a day Unchanged sevelamer (Renvela 800 mg oral tablet (NF)) 3 tab(s) by mouth As Directed Unchanged sevelamer (Renvela 800 mg oral tablet (NF)) 4 tab(s) by mouth Three (3) times a day with meals Please take this list to your next doctor s visit. Bring all medications you take, including over the counter medications, herbals and other supplements with you to your doctor s visit. Patients and families are reminded to discard old lists and to update any records with all medication providers or retail pharmacies. Education Materials Muscle Strain in the Extremities A muscle strain is a stretching and tearing of muscle fibers. This causes pain, especially when youmove that muscle. There may also be some swelling and bruising. Home care Keep the hurt area raised above heart level to reduce pain and swelling. This is especially important during the first 48 hours. Apply an ice pack over the injured area for 15 to 20 minutes every 3 to 6 hours. You should do thisfor the first 24 to 48 hours. You can make an ice pack by filling a plastic bag that seals at the top with ice cubes and then wrapping it with a thin towel. Be careful not to injure your skin with the ice treatments. Ice should never be applied directly to skin. Continue the use of ice packs for relief of pain and swelling as needed. After 48 hours, apply heat (warm shower or warm bath) for 15 to20 minutes several times a day, or alternate ice and heat. You may use wdro-owr-gwkxhdc pain medicine to control pain, unless another medicine was prescribed.If you have chronic liver or kidney disease or ever had a stomach ulcer or gastrointestinal bleeding, talk with your healthcare provider before using these medicines. For leg strains: If crutches have been recommended, don t put full weight on the hurt leg until youcan do so without pain. You can return to sports when you are able to hop and run on the injured leg without pain. Follow-up care Follow up with your healthcare provider, or as advised. When to seek medical advice Call your healthcare provider right away if any of these occur: The toes of the injured leg become swollen, cold, blue, numb, or tingly Pain or swelling increases [phone] [employer]. [address] [place] [address]. All rights reserved. This information is not intended as a substitute for professional medical care. Always follow yourhealthcare professional's instructions. Additional Information VACCINATE! IT SAVES LIVES! Members of the community who have not yet received the COVID-19 vaccine and would like to receive it can visit one of [facility] vaccine clinics. There are many vaccine clinic locations within the [facility]. For locations and available times, please visit [email or web address]. It is important to note that some COVID mobile vaccine clinics are held outdoors and may be canceled in rainy orstormy conditions. To learn more about pediatric vaccinations (ages 5-11), we invite you to visit the [facility] webpage. [email or web address]/[email or web address] [email or web address] learn more about the COVID-19 vaccine, we invite you to visit the [employer] website for a list of frequently asked questions. [email or web address] _[email or web address]-Questions.pdf [facility] Patient Portal Access Instructions: Stay connected with your healthcare team and access your personal medical information anytime with the [facility] Patient Portal. If you would like a full copy of your medical records please contact the [facility] Medical Records Department Friday through Friday between 8a.m. and 4:30p.m. Please follow the directions below to access the portal: 1.Access the email account you provided upon registration to the [facility].2.Look for an invitation email from [facility].3.Open the email and access the invitation link: Accept Invitation to [facility].Fill in the required luis to create your account. Sign into [email or web address] with your username and password that you created in the above steps to stay up to date. You can then view a summary of results, a summary of your visits, and the ability to download your summaries to your computer or send the information securely to a physician. Remember that your healthcare information is confidential, so carefully consider who you will allow to register on the [facility] Patient Portal for access to your information. You can also access the [facility] Patient Portal on the [employer]. Simply click on Health Records under [employer] and then click on the [employer] logo. HOW TO SAFELY DISPOSE OF PRESCRIPTION MEDICATIONS Please use one of the following methods to safely dispose of your unused medications. 1.Use a drug disposal kit: the drug disposal pouch allows you to safely discard your old and unuseddrugs. Ask your nurse to give you one when you are discharged.2.Visit a local take-back location: Many local pharmacies and police departments have programs that collect old and unwanted prescriptiondrugs. Call your local pharmacy or go to http://Kardium.Golgi/6W0Pj1x to find one close to you.3.Make use of household items: Use cat litter or old coffee grounds to dispose medications if other options arenot available. Mix your drugs with these household products, seal them in an airtight container andthrow it into the garbage. Call [facility]: [phone] to be sure your drugs can be disposed of in this way. Some medicines may require a different approach.4.Never flush your medications down the toilet. IF YOU HAVE BEEN PRESCRIBED AN OPIOIDS FOR PAIN If you have been prescribed an opioid (such as hydrocodone, oxycodone or morphine), it is critical to understand the possible side effects and risks of opioid pain medications. Even when taken as directed, opioids can have several side effects including: Tolerance, meaning you might need to take more of a medication for the same pain relief. Nausea, vomiting and/or constipation. Sleepiness, dizziness, dry mouth, confusion, depression or itching. Physical dependence, meaning you have withdrawal symptoms when a medication is stopped ? this can develop within a few days. KNOW YOUR RESPONSIBILITIES It is important to know exactly how much and how often to take the opioid pain medications you are prescribed. Never take opioids in higher amounts or more often than prescribed. Do not combine opioids with alcohol or other drugs that cause drowsiness, such as benzodiazepines, also known as benzos,including diazepam and alprazolam, muscle relaxants or sleep aids. Never sell or share prescriptionopioids. This is illegal. Store opioids in a secure place and out of reach of others (including children, family, friends and visitors). The last page(s) of this document has been signed and retained as a CHART COPY Signatures Patient Education Materials Muscle Strain, Extremity Medication Leaflets My discharge plan and instructions have been reviewed and explained to me and IZAHRA CHAD K understand my current condition and have read and understand these discharge instructions. I have received a written copy of the plan/instructions. If I have questions, I am aware that I should contact my doc tor. 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 Marina Marley APRN.JYOTI * Telephone Encounter - Rashmi Liu Ma - 11/05/2021 9:18 AM EDT Spoke with pt, notified of results. Pt states he is feeling pretty good. No SOB or coughing. Rashmi Liu Ma * Telephone Encounter - Marina Marley APRN.CNP - 11/03/2021 11:49 AM EDT Can you please call the patient and let him know that I reviewed his repeat chest x-ray results. There is some fluid collection in the right lower lung. Can you please ask the patient how he has beenfeeling and if he has been having any worsening symptoms? Thank you. Marina Marley APRN.JYOTI documented [facility] History of Present illness Narrative* Usha Márquez LPN - 11/01/2021 1:11 PM EDT See Stress Test: Scan on 11/01/2021 12:00 PM by External Provider: Stress Test And ECHO: Scan on 11/01/2021 1:07 PM by External Provider: Echo Shania Márquez LPN documented in this [facility]Mer[facility] History of Present illness Narrative* Roslyn Carvajal, RT(R) - 11/01/2021 10:50 AM EDT Radiology Service Progress Note PATIENT NAME: Carlitos Sweeney DATE OF SERVICE: November 01, 2021 TIME: 10:42 AM PATIENT IDENTITY VERIFICATION COMPLETED USING TWO (2) IDENTIFIERS: Name and Date of confirmedby patient verbally. FALL SCREENING: Has the patient had 2 falls in the last year or 1 fall with injury or currently using an Ambulatory Assistive Device (Walker, Cane, Wheelchair, Crutches, etc.)? No PATIENT GENDER DATA: Male PATIENT RELEVANT IMPLANT DATA REVIEWED: Yes RADIOLOGY DEPARTMENT: General X-ray: Exam(s) Completed: Chest X-Ray PERIPHERAL IV DATA: Not applicable SIGNED BY: RT Lianne(R) November 01, 2021 10:42 AM documented in this encounterMer[facility]04-28-2022 Instructions* Patient Instructions* Marina Marley APRN.CNP - 10/18/2021 10:43 AM EDT 1.) Get repeat chest xray 2-4 weeks. 2.) Continue to take all your medication as prescribed. 3.) Keep all scheduled appointments with specialists. 4.) Red flag symptoms go to ER. 5.) Follow up as needed. Recommend making follow up appointment with Dr. Conte within 3-6 months. documented in this encounterMer[facility]04-28-2022 History of Present illness Narrative* Marina Marley APRN.CNP - 10/18/2021 10:40 AM EDT This is a 46 year old male who presents today with: Patient presents with: Hospital F/U: Patient was seen in [place] about 1 month ago for pneumonia. Has migraine after every treatment HISTORY OF PRESENT ILLNESS: Carlitos Sweeney is a 46 year old male. Patient presents with: Hospital F/U: Patient was seen in [place] about 1 month ago for pneumonia. Has migraine after every treatment Patient of Dr. Conte here in the office for hospital follow up. HOSPITAL/ER FOLLOW UP: Reason for visit: Cough Which facility: [place] Date of visit: 09/27/2021 Diagnosis: Pneumonia Testing done: Chest xray showed right lung base infiltrate. Treatment given: AZirthomycin Was seen at [facility] 10/11/2021 abdominal pain, started on Flagyl for bacterial gastroenteritis.. Symptoms having improve significantly. Following with Lock St[facility] Channeler in [facility] Dr. Gamino. On fluid restriction 32 ounces between treatments. Sob has improved since having treatment of pneumonia. Trying to work on smoking cessation, smoking 1/2 PPD. Dialysis Friday, Friday, and Friday. Seeing [facility] (Dr. Rogers). Will be having stress/echo next month. Get pace maker replaced soon. Over all doing well. PAST MEDICAL HISTORY: PAST MEDICAL HISTORY Diagnosis Date Abdominal pain 10/01/2013 Anemia of chronic renal failure 08/18/2015 Anxiety 10/01/2013 BENIGN HYP RENAL W KID FAIL 02/11/2005 Chronic combined systolic and diastolic CHF (congestive heart failure) ([facility]) 08/18/2015 Seeing cardio in [place] (has pace maker/defibulator) Chronic kidney disease, stage 5 ([facility]) Dialysis M,W,F @ [facility] Chronic obstructive pulmonary disease ([facility]) 08/18/2015 CKD (chronic kidney disease) stage 4, GFR 15-29 ml/min ([facility]) 04/26/[address] 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 End stage renal failure on dialysis ([facility]) 02/12/2017 Essential hypertension 09/10/2013 Gastroesophageal reflux disease without esophagitis 10/23/2016 Hemodialysis patient ([facility]) 03/28/2016 Hyperkalemia 02/12/2017 Hyperphosphatemia 02/12/2017 Hypertensive heart disease with congestive heart failure ([facility]) 02/12/2017 Hypocalcemia 02/12/2017 Implantable cardioverter-defibrillator (ICD) in situ 02/12/2017 Kidney replaced by transplant 05/27/97 Kidney transplant failure and rejection 05/12/2013 Kidney transplant rejection 05/12/2013 Moderate episode of recurrent major depressive disorder (HCC) 10/23/2016 MRSA colonization, nasal 02/28/2014 Presence of combination internal cardiac defibrillator (ICD) and pacemaker Psychophysiological insomnia 11/14/2020 Patient needs substance agreement and [facility]. If cancels or No Shows the Belsomra will be stopped. Smoker 08/18/2015 Started at age 14 up to 1-1.5 PPD, currently at 1/2 PPD (10/2016), as of 05/2019 less than 1/2 a PPD PAST SURGICAL HISTORY Procedure Laterality Date 2D ECHO (EXEP) 11/02/2020 EF=50%, mod Joshi dysf CHOLECYSTECTOMY INSJ TUNNELED CVC W/O SUBQ PORT/MANAGER TRAINING AND DEVELOPMENT AGE 3 YR/> 01/21/2014 PAST SURGICAL HISTORY OF 05/1997 Renal Transplant, cadaveric PAST SURGICAL HISTORY OF 09/2011 renal transplant PAST SURGICAL HISTORY OF Right cautery right nare for chronic nosebleeds PAST SURGICAL HISTORY OF 01/31/2017 LEFT UPPER ARM AVG ALLERGIES Cyclobenzaprine, Dye, Hydralazine, Penicillins, Procardia [Nifedipine], and Tramadol MEDICATIONS Current Outpatient Medications Medication Sig hydrALAZINE (APRESOLINE) 50 mg tablet Take 50 mg by mouth three times daily. NIFEdipine XL (ADALAT CC) 30 mg 24 hr tablet Take 30 mg by mouth twice daily. sevelamer carbonate (RENVELA) 800 mg tablet Take 1 tablet by mouth three times daily. lisinopril (ZESTRIL, PRINIVIL) 5 mg tablet 5 mg. amLODIPine (NORVASC) 10 mg tablet Take 1 tablet by mouth once daily. acetaminophen (TYLENOL) 325 mg tablet Take 2 tablets every 4 hours as needed for pain. calcium acetate (PHOSLO) 667 mg tab Take 667 mg by mouth as directed. takes 4 capsules 3 times a day plus 2 capsules with each snack. carvedilol (COREG) 25 mg tablet Take 25 mg by mouth twice daily with meals. Current Facility-Administered Medications Medication Dose Route Frequency perflutren lipid microspheres 1.3 mL in NaCl (PF) 0.9% 10 mL injection (DEFINITY) INTRAVENOUS DIRECTED PRN sodium chloride 0.9 % (flush) 10 mL (BD POSIFLUSH) 10 mL INTRAVENOUS DIRECTED PRN FAMILY HISTORY Problem Relation Age of Onset Diabetes Father Heart Father Asthma Brother Heart Brother Diabetes Paternal Uncle Anesthesia Problems No Family History Social History Tobacco Use Smoking status: Current Every Day Smoker Packs/day: 0.50 Years: 29.00 Pack years: 14.50 Types: Cigarettes Smokeless tobacco: Never Used Tobacco comment: off and on, less than half of pack Substance Use Topics Alcohol use: No Drug use: No REVIEW OF SYSTEMS GENERAL: No weight loss, malaise or fevers/chills HEENT: Negative for frequent or significant headaches, No changes in hearing or vision. NECK: Negative for lumps, goiter, pain and significant neck swelling RESPIRATORY: Negative for cough, hemoptysis, wheezing, dyspnea or shortness of breath CARDIOVASCULAR: Negative for chest pain, leg swelling, orthopnea, or palpitations GI: No nausea, vomiting, or diarrhea/constipation. No hematochezia/melena. No heartburn or reflux symptoms. : No history of dysuria, frequency or incontinence MUSCULOSKELETAL: Negative for joint pain or swelling. SKIN: Negative for lesions, rash, and itching ENDOCRINE: Negative for cold or heat intolerance, polyuria, polydipsia and goiter NEURO: No history of headaches, syncope, paralysis, seizures or tremors MOOD: Negative for depression, anxiety, or suicidal ideation. EXAM: BP 134/86 (BP Site: Left Arm, BP Position: Sitting, BP Cuff Size: Regular Adult) Pulse 72 Resp 16 Wt 78.5 kg (173 lb) BMI 24.13 kg/m PHYSICAL EXAM: General Appearance: Well appearing, alert, in no acute distress, well-hydrated, well nourished. Skin: Skin color, texture, turgor normal, no suspicious rashes or lesions. Head: Normocephalic, no masses, lesions, tenderness or abnormalities. Eyes: Anicteric sclera. Extraocular movements are intact. Neck: Supple, no adenopathy; thyroid symmetric, normal size, no bruits. Lungs: Lungs clear to auscultation. No wheezing, rhonchi, rales. Heart: RRR without murmur, gallop, or rubs. No ectopy. Extremities: No deformities, edema, skin discoloration, clubbing or cyanosis. Good capillary refill. Peripheral Pulses: Normal, Capillary refill <2secs, strong peripheral pulses, Pulses palpable. ASSESSMENT/PLAN: 1. History of pneumonia - ICD9: V12.61, ICD10: Z87.01 (primary diagnosis) - Get repeat chest xray in 2-3 weeks. - Encouraged to work on smoking cessation. - XR CHEST 2V FRONTAL/LAT 2. End stage renal failure on dialysis (HCC) - ICD9: 585.6, V45.11, ICD10: N18.6, Z99.2 - Instructed to keep all dialysis and nephrology appointments Follow-up as needed or sooner if symptoms get worse or do not improve. Discussed treatment plan and patient voices understanding. Patient's questions answered appropriately. Medications and potential side effects were discussed and patient voices understanding. Marina Marley APRN.CNP This note was partially generated using [employer] Lambda voice recognition system. Note was reviewed for accuracy. There may be minor misspellings or grammar miscues with [facility] voice recognition. documented in this encounterMer[facility]04-[facility]-2022 Hospital Discharge instructions Patient Education 10/11/2021 20:18:43 Gastroenteritis, Bacterial (Adult) Bacterial Gastroenteritis (Adult) You have gastroenteritis. It is an infection in your intestinal tract caused by bacteria (dysentery). Viruses, parasites, and toxins may also cause gastroenteritis. This infection may cause fever, vomiting, stomach cramping, and diarrhea. You may have blood or mucus in your stool. Some of the more common causes of bacterial gastroenteritis include E. coli, salmonella, shigella, campylobacter, andclostridium difficile (C.diff). Antibiotics are sometimes used to treat this type of infection. Sometimes you may need to wait until a stool culture is done before your healthcare provider gives you an antibiotic. In the meantime, follow the advice below. Don't take antibiotics without your provider's recommendation. This can lead to other complications in certain types of bacterial gastroenteritis. Home care Medicines If your healthcare provider prescribed antibiotics, be sure you take them until they are finished. You may use acetaminophen or NSAID medicines like ibuprofen or naproxen to control fever unless another medicine was prescribed. If you have chronic liver or kidney disease, talk with your provider before using these medicines. Also talk with your provider if you've had a stomach ulcer or gastrointestinal bleeding. Don't give aspirin to anyone under 18 years of age who is ill with a fever. It maycause severe liver damage. Don't use NSAID medicines if you are already taking one for another condition (like arthritis) or are on aspirin such as for heart disease or after a stroke. Don't take or give chro-ccl-ydzvoxr antidiarrhea medicines, unless your healthcare provider prescribed or recommended them. Antidiarrhea medicine may make your symptoms last longer if the cause is aninfectious diarrhea. You may be given medicine for nausea and vomiting to help you keep down fluids. Take these medicines as prescribed. Gastroenteritis is transmitted by contact with the stool or vomit of an infected person. This can occur directly from person to person or indirectly from contact with a contaminated surface. General care If symptoms are severe, rest at home for the next 24 hours, or until you feel better. Washing your hands with soap and water and using alcohol-bases construction tech is the best way to stop the spread of infection. Wash your hands after touching anyone who is sick. Wash your hands after using the toilet and before meals. Clean the toilet after each use. Don't use tobacco, caffeine, or alcohol. These can make your symptoms worse. Diet Liquids are the first step: Water and clear liquids are important so you don't get dehydrated. Drink a small amount at a time or suck on ice chips. Food People with diarrhea should not make or serve food for others. When making food for yourself, wash your hands before and after. Wash your hands after using cutting boards, countertops, and knives that have touched raw food. Keep uncooked meats away from cooked and vnqyf-zd-vcg foods. During the first 24 hours, follow the diet below: Beverages: sport drinks, soft drinks without caffeine, mineral water (plain or flavored), decaffeinated tea and coffee. If you are very dehydrated, sports drinks are not a good choice. They have too much sugar and not enough electrolytes. In this case, commercially available products called oral zainab ydration solutions, are best. Soups: clear broth, consomm , and bouillon Desserts: plain gelatin, popsicles, and fruit juice bars During the next 24 hours (the second day), you may add these foods to the above list if you are feeling better. If not, continue what you did the first day: Hot cereal, plain toast, bread, rolls, crackers Plain noodles, rice, mashed potatoes, chicken noodle or rice soup Unsweetened canned fruit (avoid pineapple), bananas Limit fat to less than 15 grams per day. Avoid margarine, butter, oils, mayonnaise, sauces, gravies, fried foods, peanut butter, meat, poultry, and fish. Limit fiber. Avoid raw or cooked vegetables, fresh fruits (except bananas), and bran cereals. Limit dairy Continue to avoid alcohol Limit caffeine and chocolate. No spices or seasonings except salt. During the next 24 hours: Gradually resume a normal diet, as you feel better and your symptoms improve. If at any time you start feeling worse again, go back to clear liquids until you feel better. Follow-up care Follow up with your healthcare provider, or as advised. If you don't get better in 24 hours, or if your diarrhea lasts more than 1 week. Also follow up if you are unable to keep liquids down and stayhydrated. If a stool (diarrhea) sample was taken, you can call for the results as directed. Call 911 Call 911 if any of these occur: Trouble breathing Confused Very drowsy or trouble awakening Fainting or loss of consciousness Rapid heart rate Chest pain Seizure Stiff neck When to seek medical advice Call your healthcare provider right away if any of these occur: Increasing abdominal pain or constant lower right abdominal pain Continued vomiting (unable to keep liquids down) Diarrhea for more than 2 days in adults and 24 hours in children Stools containing blood or pus or black tarry stools Dark urine, reduced urine output Weakness, dizziness Drowsiness Fever of 100.4 F (38.0 C) or higher; or as directed by your healthcare provider New rash If you have muscle weakness or arthritis symptoms during or after your gastroenteritis is gone 8433-7[address] [employer]. [address] [place] [address], [place] [address]. All rights reserved. This information is not intended as a substitute for professional medical care. Always follow yourhealthcare professional's instructions. 10/11/2021 20:18:30 Ileus Ileus The digestive tract. Ileus occurs when there is a problem with motility in the stomach and small or large intestine (bowel). Motility is the movement of food and waste through the digestive tract. Ileus is not caused by a physical blockage (obstruction). Normally, muscles in the bowel zhu contract to move waste along. Signals from nerves tell the muscles when to contract. With ileus, this movement slows down or stops completely. As a result, waste can t move through the bowels and out of the body. This can cause belly (abdominal) pain and other symptoms. Treatment is needed to restore normal movement and ease symptoms. Causes of ileus Ileus can be caused by the following: Abdominal surgery Abdominal infection Injury to blood vessels that supply blood to the abdomen Low levels of sodium or potassium (electrolyte imbalance) Certain medicines, such as opioid pain medicines Certain kidney or lung diseases Certain health problems, such as cystic fibrosis and diabetes Symptoms of ileus Common symptoms of ileus include: Belly swelling or bloating Upset stomach (nausea) and vomiting Belly cramps Constipation or diarrhea Loss of appetite Not able to keep food down Not able to pass stool or gas Diagnosing ileus Your healthcare provider will ask about your symptoms and health history. You ll also have a physical exam. If your provider thinks you may have ileus, tests may be done to confirm the problem. Thesecan include: Imaging tests. These provide pictures of the bowels. Common tests include X-rays and a CT scan. Blood tests. These are done to c heck for infection and other problems, such as fluid loss (dehydration). Upper GI (gastrointestinal) series. This test takes X-rays of the upper digestive tract, from the mouth to the small intestine. An X-ray dye (contrast fluid) is used. The dye coats the inside of the upper digestive tract so that it will show up clearly on X-rays. Treating ileus In most cases, ileus goes away by itself when the main cause clears up. The goal is to manage symptoms until movement in the digestive tract returns to normal. Treatment takes place in a hospital. Aspart of your care, the following may be done: No food or drink is given by mouth. This allows your bowels to rest. An IV (intravenous) line is placed in a vein in your arm or hand. The IV line is used to give fluids and nutrition. It may also be used to give medicines. These may be needed to improve movement in your digestive tract, or to ease pain. They may also be needed to treat any underlying infections or conditions you have. A soft, thin, flexible tube (nasogastric tube) is inserted through your nose and into your stomach.The tube is used to remove extra gas and fluid in your stomach and bowels. This helps to ease symptoms such as pain and swelling. You ll be watched closely in the hospital until your symptoms get better. Your provider will tell you when you re well enough to go home. This is usually within a few days. In rare cases, problems may occur. Other treatments, such as surgery, may then be done. Your provider will tell you more about other treatments, if needed. Long-term concerns After treatment, most people recover completely. In some cases, you may need to see your provider for a follow-up appointment. When to call your provider Call your healthcare provider right away if you have any of the following: Fever of 100.4 F (38 C) or higher, or as advised by your provider Belly swelling or pain that won t go away Not able to pass stool or gas Nausea and vomiting Getting full very easily with only small amounts of food or drink Bleeding from the rectum Black, tarry stool [id number] [employer]. [address] [place] [address]. All rights reserved. This information is not intended as a substitute for professional medical care. Always follow yourhealthcare professional's instructions. 10/11/2021 18:24:51 Vomiting and Diarrhea, Nonspecific (Adult) Nonspecific Vomiting and Diarrhea (Adult) Vomiting and diarrhea can have many causes, including: Helping your body get rid of harmful substances Gastroenteritis caused by viruses, parasites, bacteria, or toxins. Allergy to or side effect of a food or medicine Severe stress or worry (anxiety) Other illnesses It is often hard to pinpoint an exact cause, even with testing. Vomiting and diarrhea often go awaywithin a day or two without problems. If they continue, though, they can lead to too much loss of fluid (dehydration). This can be serious if not treated. Home care Medicines You may use acetaminophen or NSAID medicines like ibuprofen or naproxen to control fever, unless another medicine was prescribed. If you have chronic liver or kidney disease, talk with your healthcare provider before using these medicines. Also talk with your provider if you've had a stomach ulcer or gastrointestinal bleeding. Don't give aspirin to anyone under 18 years of age who is ill with a fever because it may cause severe disease or . Don't use NSAID medicines if you are already taking one for another condition (like arthritis) or are on aspirin (such as for heart disease or after a stroke) Uvug-btx-yelifwz medicines for diarrhea, nausea, and vomiting are generally OK unless you have bleeding, fever, or severe abdominal pain. General care If symptoms are severe, rest at home for the next 24 hours, or until you are feeling better. Washing your hands with soap and water, or using alcohol-based hand construction tech is the best way to stop the spread of infection. Wash your hands after touching anyone who is sick. Wash your hands after using the toilet and before meals. Clean the toilet after each use. Dry your hands with a single use towel. Caffeine, tobacco, and alcohol can make the diarrhea, cramping, and pain worse. Remember, caffeine not only is in coffee, but also is in chocolate, some energy drinks, and teas. Diet Water and clear liquids are important so you don't get dehydrated. Drink a small amount at a time. Don't guzzle down the drinks. That may increase your nausea, make cramping worse, and cause the drinks to come back up. Sports drinks may also help if you are healthy and not too dehydrated. They have too much sugar andnot enough electrolytes and can sometimes make things worse. Also, don't drink beverages that are too acidic, like orange juice and grape juice. If you are very dehydrated, commercially available products called oral rehydration solutions are best. Food Don't force yourself to eat, especially if you have cramps, diarrhea, or vomiting. Eat just a little at a time, and then wait a few minutes before you try to eat more. Don't eat fatty, greasy, spicy, or fried foods. Don't eat dairy products if you have diarrhea. They can make it worse. During the first 24 hours (the first full day), follow the diet below: Beverages: Oral rehydration solutions, sports drinks, soft drinks without caffeine, mineral water, and decaffeinated tea and coffee Soups: Clear broth, consomm , and bouillon Desserts: Plain gelatin, popsicles, and fruit juice bars During the next 24 hours (the second day), you may add the following to the above if you are better. If not, continue what you did the first day: Hot cereal, plain toast, bread, rolls, crackers Plain noodles, rice, mashed potatoes, chicken noodle or rice soup Unsweetened canned fruit (avoid pineapple), bananas Limit fat intake to less than 15 grams per day by avoiding margarine, butter, oils, mayonnaise, sauces, gravies, fried foods, peanut butter, meat, poultry, and fish. Limit fiber. Avoid raw or cooked vegetables, fresh fruits (except bananas) and bran cereals. Limit caffeine and chocolate. No spices or seasonings except salt. During the next 24 hours: Gradually resume a normal diet, as you feel better and your symptoms improve. If at any time your symptoms start getting worse again, go back to clear liquids until you feel better. Food preparation If you have diarrhea, you should not prepare food for others. When preparing foods, wash your handsbefore and after. Wash your hands or use alcohol-based construction tech after using cutting boards, countertops, and knives that have been in contact with raw food. Dry your hands with a single use towel. Keep uncooked meats away from cooked and awwpr-dt-pxg foods. Follow-up care Follow up with your healthcare provider, or as advised. Call if you don't get better in the next 2 to 3 days. If a stool (diarrhea) sample was taken, or cultures done, you will be told if they are positive, or if your treatment needs to be changed. You may call as directed for the results. If X-rays were taken, you will be notified of any new findings that may affect your care Call 911 Call 911 if any of these occur: Trouble breathing Chest pain Confusion Severe drowsiness or trouble awakening Fainting or loss of consciousness Rapid heart rate Seizure Stiff neck Severe weakness, dizziness, or lightheadedness When to seek medical advice Call your healthcare provider right away if any of these occur: Bloody or black vomit or stools Severe, steady abdominal pain or any abdominal pain that is getting worse Severe headache or stiff neck An inability to hold down even sips of liquids for more than 12 hours Vomiting that lasts more than 24 hours Diarrhea that lasts more than 24 hours Fever of 100.4 F (38.0 C) or higher, or as directed by your healthcare provider Yellowish color to your skin or the whites of your eyes Signs of dehydration, such as dry mouth, little urine (less than every 6 hours), or very dark urine [id number] [employer]. [address] [place] [address], [place] [address]. All rights reserved. This information is not intended as a substitute for professional medical care. Always follow yourhealthcare professional's instructions. Follow Up Care 10/11/2021 17:43:45 With:TOM CONTE Address: [address] [place] [address]- Business (1) When:2-4 days [facility] 11-09-2021 Hospital Discharge instructions Patient Education 04/30/2021 22:06:12 Cellulitis Skin Infection Cellulitis Cellulitis is an infection of the deep layers of skin. A break in the skin, such as a cut or scratch, can let bacteria under the skin. If the bacteria get to deep layers of the skin, it can be serious. If not treated, cellulitis can get into the bloodstream and lymph nodes. The infection can then spread throughout the body. This causes serious illness. Cellulitis causes the affected skin to become red, swollen, warm, and sore. The reddened areas havea visible border. An open sore may leak fluid (pus). You may have a fever, chills, and pain. Cellulitis is treated with antibiotics taken for 7 to 10 days. An open sore may be cleaned and covered with cool wet gauze. Symptoms should get better 1 to 2 days after treatment is started. Make sure to take all the antibiotics for the full number of days until they are gone. Keep taking the medicine even if your symptoms go away. Home care Follow these tips: Limit the use of the part of your body with cellulitis. If the infection is on your leg, keep your leg raised while sitting. This will help to reduce swelling. Take all of the antibiotic medicine exactly as directed until it is gone. Do not miss any doses, especially during the first 7 days. Don t stop taking the medicine when your symptoms get better. Keep the affected area clean and dry. Wash your hands with soap and warm water before and after touching your skin. Anyone else who touches your skin should also wash his or her hands. Don't share towels. Follow-up care Follow up with your healthcare provider, or as advised. If your infection does not go away on the first antibiotic, your healthcare provider will prescribe a different one. When to seek medical advice Call your healthcare provider right away if any of these occur: Red areas that spread Swelling or pain that gets worse Fluid leaking from the skin (pus) Fever higher of 100.4 F (38.0 C) or higher after 2 days on antibiotics [id number] [employer]. [address] [place] [address]. All rights reserved. This information is not intended as a substitute for professional medical care. Always follow yourhealthcare professional's instructions. 04/30/2021 22:06:05 Balanitis Balanitis Balanitis is an inflammation of the head of the penis. It can happen because of a buildup of germs (bacteria, viruses, or fungi) under the foreskin. It can also happen because of exposure to soaps and other chemicals. In adults, this is most often a complication of diabetes. It can also happen because of obesity or poor genital cleaning habits. If it is not treated right away, this can lead to a condition called phimosis. This means you cannot pull back the foreskin from the head of the penis. Symptoms of balanitis may include pain or tenderness of the penis, discharge, inability to retract the foreskin, difficulty urinating, and impotence. Home care The following guidelines will help you care for your condition at home: If you are able to retract your foreskin: oChildren. Retract the foreskin and clean with water. Apply antibiotic cream or ointment to the penis three times a day. oAdults. Retract the foreskin and clean with water. Apply clotrimazole cream to the penis 3 times aday unless another medicine was prescribed. Clotrimazole cream is available over the counter. Avoidsexual activity while being treated. oSitz baths. Soak the penis and foreskin in warm water while inflammation is present. If you have diabetes, talk with your doctor about keeping your diabetes in good control. If you are overweight, talk with your doctor about a weight loss plan. Follow-up care Follow up with your healthcare provider, or as advised. When to seek medical advice Call your healthcare provider right away if any of these occur: You can't retract the foreskin You can't return the retracted foreskin to the forward position. This requires immediate attention! Your symptoms get worse You have partial or complete blockage of the flow of urine [phone] [employer]. [address] [place] [address]. All rights reserved. This information is not intended as a substitute for professional medical care. Always follow yourhealthcare professional's instructions. Follow Up Care 04/30/2021 21:30:10 With:TOM CONTE MD Address: [address] [place] [address]- When:2-4 days [facility] 05-26-2021 History of Present illness Narrative* [place] RT(R) - 11/15/2020 3:00 PM EDT Radiology Service Progress Note PATIENT NAME: Carlitos Sweeney DATE OF SERVICE: November 15, 2020 TIME: 3:12 PM PATIENT IDENTITY VERIFICATION COMPLETED USING TWO (2) IDENTIFIERS: Name and Date of confirmedby patient verbally. FALL SCREENING: Has the patient had 2 falls in the last year or 1 fall with injury or currently using an Ambulatory Assistive Device (Walker, Cane, Wheelchair, Crutches, etc.)? No PATIENT GENDER DATA: Male PATIENT RELEVANT IMPLANT DATA REVIEWED: Not Applicable RADIOLOGY DEPARTMENT: General X-ray: Exam(s) Completed: Chest X-Ray PERIPHERAL IV DATA: Not applicable SIGNED BY: RT Radha(R) November 15, 2020 3:12 PM [facility] History of Present illness Narrative* Kidney Transplant * Reason For Visit: Pre-Transplant . Annual review of listing status. * CKD: end stage renal disease. * TIEDI: previous UTx and PRA 100%. Listing date: 01/20/2019, currently status 7 * Hemodialysis: Friday, Friday, Friday. Dialysis Center: [facility] * Disease Etiology: Congenital anomalies of kidneys. * Compliance/Tolerance/Control: good compliance with treatment. * Primary Care Provider: Dr. Tom Conte (tel: [phone]). * Referral: Dr. Chaya Owens (tel: [phone]; fax: [phone]). * I am seeing CARLITOS SWEENEY at the referring provider's request for surgical suitability for kidney transplant candidate listing at [facility]. * History of Present Illness Comments: Mr. 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 He has had two previous kidney transplants in 2006 and 2011. 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 The patient's current cPRA is 100%. He started on peritoneal dialysis earlier this year due to hypotension during hemodialysis. * Today, the patient presents for an annual review of kidney transplant listing status. * The patient also has a past medical history of severe cardiomyopathy with an implanted ICD. He currently has problems with upper extremity venous outflow. 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 * Otherwise, no nausea, vomiting, or diarrhea. Eating and drinking well. No chest pain or shortness of breath. [facility] [address] Work Phone: [phone] Evaluation note* Diagnosis Onset Date Resolution Status History of implantable cardi ac defibrillator (ICD) February 03, 2015 acute Non-ischemic cardiomyopathy resolved ESRD (end stage renal disease) on dialysis chronic Non-ischemic cardiomyopathy resolved Acute dyspnea acute Pleural effusion, right [facility] Work Phone: Evaluation + Plan note No data available for this section [facility] Evaluation + Plan note Future Appointments Appointment Date:08/26/2025 12:30:00 PM Scheduled Provider:MONIE ALSTON DO Location:[facility] Appointment Type:[facility] Annual Future Scheduled Tests Laboratory* TSH with Reflex to FT4 08/24/24 * Prostate Specific Antigen 08/24/24 * A1C Hemoglobin 08/24/24 * Lipid Profile 08/24/24 Radiology* CT Low Dose Lung Cancer Screening (LDCT) 08/24/24 [facility] Evaluation + Plan note Future Appointments Appointment Date:01/10/2025 02:00:00 PM Scheduled Provider:SNEHA WHITE Location:[facility] Appointment Type:CV OV Appointment Date:08/26/2025 12:30:00 PM Scheduled Provider:MONIE ALSTON DO Location:[facility] Appointment Type: Wellness Annual Future Scheduled Tests Laboratory* Lipoprotein (a) 09/24/24 * Apolipoprotein B 09/24/24 * TSH with Reflex to FT4 09/24/24 * Prostate Specific Antigen 09/24/24 * A1C Hemoglobin 09/24/24 * Lipid Profile 09/24/24 Radiology* MRI Spine Lumbar w/o Contrast 09/14/24 [facility] Evaluation + Plan note Future Appointments Appointment Date:12/20/2024 09:15:00 AM Scheduled Provider:SNEHA WHITE Location:[facility] Appointment Type:CV OV Appointment Date:08/26/2025 12:30:00 PM Scheduled Provider:MONIE ALSTON DO Location:[facility] Appointment Type:PC Wellness Annual Future Scheduled Tests Laboratory* Lipoprotein (a) 09/24/24 * Apolipoprotein B 09/24/24 * TSH with Reflex to FT4 09/24/24 * Prostate Specific Antigen 09/24/24 * A1C Hemoglobin 09/24/24 * Lipid Profile 09/24/24 Radiology* MRI Spine Lumbar w/o Contrast 09/14/24 [facility] Evaluation + Plan note Future Appointments Appointment Date:01/14/2025 10:30:00 AM Scheduled Provider:CARLTON COLORADO Location:[facility] Appointment Type:CV OV Hospital Follow Up Appointment Date:03/31/2025 08:00:00 PM Scheduled Provider: Location:[facility] Appointment Type:CV Remote Procedure HM Appointment Date:08/26/2025 12:30:00 PM Scheduled Provider:MONIE ALSTON DO Location:[facility] Appointment Type:PC Wellness Annual Future Scheduled Tests Laboratory* Lipoprotein (a) 09/24/24 * Apolipoprotein B 09/24/24 * TSH with Reflex to FT4 09/24/24 * Prostate Specific Antigen 09/24/24 * A1C Hemoglobin 09/24/24 * Lipid Profile 09/24/24 Radiology* MRI Spine Lumbar w/o Contrast 09/14/[address] [facility] Evaluation + Plan note Future Appointments Appointment Date:02/10/2025 09:00:00 AM Scheduled Provider: Location:[facility] Appointment Type:CV Incision Check Appointment Date:04/28/2025 09:30:00 AM Scheduled Provider: Location:[facility] Appointment Type:CV Office Procedure ICD Appointment Date:07/29/2025 06:45:00 PM Scheduled Provider: Location:[facility] Appointment Type:CV Remote Procedure HM Appointment Date:08/26/2025 12:30:00 PM Scheduled Provider:MONIE ALSTON DO Location:[facility] Appointment Type:PC Wellness Annual Future Scheduled Tests Laboratory* Lipoprotein (a) 09/24/24 * Apolipoprotein B 09/24/24 * TSH with Reflex to FT4 09/24/24 * Prostate Specific Antigen 09/24/24 * A1C Hemoglobin 09/24/24 * Lipid Profile 09/24/24 Radiology* MRI Spine Lumbar w/o Contrast 09/14/[address] [facility] Evaluation + Plan note Future Appointments Appointment Date:02/10/2025 09:00:00 AM Scheduled Provider: Location:[facility] Appointment Type:CV Incision Check Appointment Date:04/28/2025 09:30:00 AM Scheduled Provider: Location:[facility] Appointment Type:CV Office Procedure ICD Appointment Date:07/29/2025 06:45:00 PM Scheduled Provider: Location:[facility] Appointment Type:CV Remote Procedure Appointment Date:08/26/2025 12:30:00 PM Scheduled Provider:OMNIE ALSTON DO Location:[facility] Appointment Type: Wellness Annual Diagnostic Tests Pending * Blood Culture (bacterial) 01/29/25 * Blood Culture (bacterial) 01/29/25 Future Scheduled Tests Laboratory* Lipoprotein (a) 09/24/24 * Apolipoprotein B 09/24/24 * TSH with Reflex to FT4 09/24/24 * Prostate Specific Antigen 09/24/24 * A1C Hemoglobin 09/24/24 * Lipid Profile 09/24/24 Radiology* MRI Spine Lumbar w/o Contrast 09/14/24 [facility] Evaluation + Plan note Future Appointments Appointment Date:04/28/2025 09:30:00 AM Scheduled Provider: Location:[facility] Appointment Type:CV Office Procedure ICD Appointment Date:07/29/2025 02:00:00 PM Scheduled Provider: Location:[facility] Appointment Type:CV Remote Procedure Appointment Date:08/26/2025 12:30:00 PM Scheduled Provider:MONIE ALSTON DO Location:[facility] Appointment Type: Wellness Annual Future Scheduled Tests Laboratory* Lipoprotein (a) 09/24/24 * Apolipoprotein B 09/24/24 * TSH with Reflex to FT4 09/24/24 * Prostate Specific Antigen 09/24/24 * A1C Hemoglobin 09/24/24 * Complete Blood Count 02/03/25 * Lipid Profile 09/24/24 * Complete Metabolic Panel 02/03/25 Radiology* MRI Spine Lumbar w/o Contrast 09/14/24 [facility] Evaluation note* Diagnosis History of pneumonia- Primary Personal history of pneumonia (recurrent) End stage renal failure on dialysis (HCC) End stage renal disease [facility] [place] [facility]* Diagnosis Onset Date Resolution Status Chest pain acute ESRD (end stage renal disease) on dialysis chronic Non-ischemic cardiomyopathy resolved [facility] Work Phone: evaluation note* Diagnosis Recurrent right pleural effusion Unspecified pleural effusion documented [facility] [place] [facility]* Diagnosis Shortness of breath- Primary documented in this [facility] [place] [facility]* Diagnosis Recurrent right pleural effusion- Primary Unspecified pleural effusion documented [facility] [place] [facility]* Diagnosis Shortness of breath documented in [facility] [place] [facility]* Diagnosis Shortness of breath documented [facility] [place] [facility]* Diagnosis Pleural effusion- Primary Unspecified pleural effusion documented [facility] [place] [facility]* Diagnosis Pleural effusion- Primary Unspecified pleural effusion documented in [facility] [place] [facility]* Diagnosis Pleural effusion- Primary Unspecified pleural effusion [facility] [place] [facility] Diagnosis Pleural effusion- Primary Unspecified pleural effusion documented [facility] [place] [facility]* Diagnosis Onset Date Resolution Status ESRD (end stage renal disease) on dialysis chronic Essential hypertension chron ic Non-ischemic cardiomyopathy chronic S/P internal cardiac defibrillator procedure chronic [facility] Work Phone: evaluation note* Diagnosis Pleural effusion- Primary Unspecified pleural effusion Recurrent right pleural effusion Unspecified pleural effusion documented [facility] [place] [facility]* Diagnosis Pleural effusion- Primary Unspecified pleural effusion [facility] [place] [facility]* Diagnosis Pleural effusion- Primary Unspecified pleural effusion documented in [facility] [place] [facility]* Diagnosis Pleural effusion- Primary Unspecified pleural effusion documented in [facility] [place] [facility]* Diagnosis Pleural effusion- Primary Unspecified pleural effusion documented in [facility] [place] [facility]* Diagnosis SONJA (generalized anxiety disorder) Generalized anxiety disorder documented [facility] [place] [facility]* Diagnosis Essential hypertension- Primary Unspecified essential hypertension Cardiomyopathy, unspecified type ([facility]) Hypertensive heart disease with congestive heart failure, unspecified heart failure type (HCC) Chronic combined systolic and diastolic CHF (congestive heart failure) ([facility]) Chronic combined systolic and diastolic heart failure Left ventricular systolic dysfunction Heart disease, unspecified Implantable cardioverter-defibrillator (ICD) in situ Nonrheumatic aortic valve stenosis Aortic valve disorders Elevated hemoglobin A1c Other abnormal blood chemistry Gastroesophageal reflux disease without esophagitis Esophageal reflux Migraine without aura and without status migrainosus, not intractable Migraine without aura, without mention of intractable migraine without mention of status migrainosus Chronic obstructive pulmonary disease, unspecified COPD type ([facility]) Anxiety Anxiety state, unspecified Mild episode of recurrent major depressive disorder ([facility]) CKD (chronic kidney disease) stage 5, GFR less than 15 ml/min ([facility]) Chronic kidney disease, Stage V End stage renal failure on dialysis ([facility]) End stage renal disease Anemia associated with stage 5 chronic renal failure ([facility]) Hemodialysis patient ([facility]) Renal dialysis status Smoker Tobacco use disorder Need for vaccination Need for prophylactic vaccination and inoculation against unspecified single disease Bilateral carotid bruits Arteriovenous fistula, acquired ([facility]) Arteriovenous fistula, acquired documented in this [facility] [place] [facility]* Diagnosis Hypotension, unspecified hypotension type- Primary End stage renal failure on dialysis (HCC) End stage renal disease [facility] [place] [facility]* Diagnosis Tobacco use disorder- Primary Recurrent right pleural effusion Unspecified pleural effusion [facility] [place] [facility]* Diagnosis Vasculopathy- Primary Unspecified circulatory system disorder SVC (superior vena cava obstruction) Compression of vein [facility] [place] [facility]* Diagnosis Vasculopathy- Primary Unspecified circulatory system disorder [facility] [place] [facility]* Diagnosis Encounter for screening for cardiovascular disorders- Primary Screening for other and unspecified cardiovascular conditions ESRD (end stage renal disease) (HCC) End stage renal disease Arteriovenous fistula, acquired (HCC) Arteriovenous fistula, acquired [facility] [place] [facility]* Diagnosis ESRD (end stage renal disease) (HCC)- Primary End stage renal disease ESRD (end stage renal disease) (HCC) End stage renal disease documented in this encounter [facility] note* Diagnosis ESRD (end stage renal disease) (HCC)- Primary End stage renal disease Arteriovenous fistula, acquired (HCC) Arteriovenous fistula, acquired documented in this [facility] [place] [facility]* Diagnosis ESRD (end stage renal disease) (HCC)- Primary End stage renal disease documented in this encounter [facility] note* Diagnosis Arteriovenous fistula, acquired (HCC)- Primary Arteriovenous fistula, acquired documented in this [facility] [place] [facility]* Diagnosis Peripheral arterial disease (HCC)- Primary Peripheral vascular disease, unspecified 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 documented [facility] [place] [facility]* Diagnosis Recurrent right pleural effusion- Primary Unspecified pleural effusion Tobacco use disorder Pleural effusion Unspecified pleural effusion documented in this [facility] [place] [facility]* Diagnosis Recurrent right pleural effusion- Primary Unspecified pleural effusion Tobacco use disorder Pleural effusion Unspecified pleural effusion documented in this [facility] [place] [facility]* Diagnosis Recurrent right pleural effusion- Primary Unspecified pleural effusion Tobacco use disorder Pleural effusion Unspecified pleural effusion documented in this [facility] [place] [facility]* Diagnosis Recurrent right pleural effusion- Primary Unspecified pleural effusion Tobacco use disorder Shortness of breath documented [facility] this [facility] [place] [facility]* Diagnosis History of pneumonia Personal history of pneumonia (recurrent) Recurrent right pleural effusion- Primary Unspecified pleural effusion Tobacco use disorder documented [facility] this [facility] [place] [facility]* Diagnosis Recurrent right pleural effusion- Primary Unspecified pleural effusion Tobacco use disorder Lumbar pain- Primary Lumbago Lumbar pain Lumbago documented in this [facility] [place] [facility]* Diagnosis Recurrent right pleural effusion- Primary Unspecified pleural effusion Tobacco use disorder Lumbar pain Lumbago documented in this [facility] [place] [facility]* Diagnosis Recurrent right pleural effusion- Primary Unspecified pleural effusion Tobacco use disorder COPD with exacerbation (HCC)- Primary Obstructive chronic bronchitis with exacerbation documented in this encounter [facility] note* Diagnosis Recurrent right pleural effusion- Primary Unspecified pleural effusion Tobacco use disorder Acute cough- Primary Asthma with COPD with exacerbation (HCC) Chronic obstructive asthma with exacerbation [facility] Diagnosis Recurrent right pleural effusion- Primary Unspecified pleural effusion Tobacco use disorder Other acute nonsuppurative otitis media of left ear, recurrence not specified- Primary Viral URI with cough Acute upper respiratory infections of unspecified site [facility] Diagnosis Small bowel obstruction (Multi)- Primary Unspecified intestinal obstruction documented in this encounter [facility] Work Phone: Evaluation note* Diagnosis ESRD (end stage renal disease) (Multi)- Primary End stage renal disease Kidney replaced by transplant ([facility]-HCC) Kidney replaced by transplant Pre-transplant evaluation for kidney transplant documented in this encounter [facility] Work Phone: Evaluation note* Diagnosis Pre-transplant evaluation for kidney transplant- Primary documented in this encounter [facility] Work Phone: Hospital Discharge instructions No data available for this section [facility] Hospital Discharge instructions Additional Instructions Her fusion appears to be draining. The catheter appears to be in good position. Follow-up. As scheduled.[facility] Work Phone: Note* RAMIRO MARTIN MD: SIGN, VERIFY Event Display: EKG [ED AOH] - CV Authored Date: [facility] Progress note No data available for this section [facility] Reason for referral (narrative)* Outpatient Procedure (Routine) - Authorized Specialty Diagnoses / Procedures Referred By Contac t Referred To [facility] Diagnoses Bilateral carotid bruits Procedures US CAROTID ARTERIES MIA VAS LAB DUPLEX SCAN EXTRACRANIAL ART COMPL BI STUDY Tom Conte MD [address] [place] [address] [facility] [address] [place] [address] Referral ID Status Reason Start Date Expiration Date Visits Requested Visits Authorized [id number] Authorized Auto-Generat ed Referral 11/21/2022 11/21/2023 1 1 [facility] for referral (narrative)* Outpatient Procedure (Routine) - Closed Specialty Diagnoses / Procedures Referred By Ja t Referred To Contact [facility] Diagnoses ESRD (end stage renal disease) ([facility]) Procedures US A/V FISTULA GRAFT UNL VAS LAB DUPLEX SC[place] [address] [place] [address] [address] Referral ID Status Reason Start Date Expiration Date V isits Requested Visits Authorized [id number] Closed Auto-Generate d Referral 06/04/2023 06/03/2024 1 1 * Outpatient Procedure (Routine) - Pending Review Specialty Diagnoses / Procedures Referred By Ja t Referred To Contact [facility] Diagnoses ESRD (end stage renal disease) ([facility]) Procedures US LEG VEIN MAP MIA VAS LAB DUP-SCAN XTR VEINS [place] [address] [place] [id number] [address] Referral ID Status Reason Start Date Expiration Date Visits Requested Visits Authorized [id number] Pending Review Auto-Generat ed Referral 3 06/03/2024 1 1 * Diagnostic Procedure Only (Routine) - Pending Review Specialty Diagnoses / Procedures Referred By Ja duff Referred To Contact [facility] Diagnoses Encounter for screening for cardiovascular disorders ESRD (end stage renal disease) ([facility]) Procedures NM CARDIAC PERF STRESS/PHARM MYOCARDIAL SPECT MULTIPLE STUDIES Gio Velarde MD [address] [place] [address] [facility] [address] [place] [address] Referral ID Status Reason Start Date Expiration Date Visits Requested Visits Authorized [id number] Pending Review Auto-Generat ed Referral 3 07/03/2024 1 1 * Outpatient Procedure (Routine) - Pending Review Specialty Diagnoses / Procedures Referred By Contac t Referred To Contact [facility] Diagnoses ESRD (end stage renal disease) (HCC) Procedures ECHO ECHO TTHRC R-T 2D W/WOM-MODE COMPL SPEC&COLR D Gio Velarde MD [address] [place] [address] [address] Referral ID Status Reason Start Date Expiration Date Visits Requested Visits Authorized [id number] Pending Review Auto-Generat ed Referral 3 06/03/2024 1 1 [facility] for referral (narrative)* Outpatient Procedure (Routine) - Authorized Specialty Diagnoses / Procedures [facility]erred To Contact [facility] Diagnoses ESRD (end stage renal disease) (HCC) Arteriovenous fistula, acquired (HCC) Procedures US A/V FISTULA GRAFT UNL VAS LAB DUPLEX SCAN HEMODIALYSIS ACCESS Gio Velarde MD [address] [place] [address] [place] [id number] Referral ID Status Reason Start Date Expiration Date Visits Requested Visits Authorized [id number] Authorized Auto-Generat ed Referral 08/08/2023 08/07/2024 1 1 * Outpatient Procedure (Routine) - Authorized Specialty Diagnoses / Procedures Referred By Contac t Referred To Contact [facility] Diagnoses ESRD (end stage renal disease) (HCC) Arteriovenous fistula, acquired (HCC) Procedures US ARM ARTERIAL UNL VAS LAB DUP-SCAN UXTR ART/ARTL BPGS UNI/LMTD STUDY Gio Velarde MD [address] [place] [address] [address] Referral ID Status Reason Start Date Expiration Date Visits Requested Visits Authorized [id number] Authorized Auto-Generat ed Referral 08/08/2023 08/07/2024 1 1 [facility] for referral (narrative)* Outpatient Procedure (Routine) - Pending Review Specialty Diagnoses / Procedures Referred By Contac t Referred To Contact [facility] Diagnoses ESRD (end stage renal disease) (HCC) Procedures US LEG ARTERIAL PERIPH UNL VAS LAB DUP-SCAN LXTR ART/ARTL BPGS UNI/[place] [address] [place] [address] [address] Referral ID Status Reason Start Date Expiration Date Visits Requested Visits Authorized [id number] Pending Review Auto-Generat ed Referral 10/23/2023 10/22/2024 1 1 * Outpatient Procedure (Routine) - Authorized Specialty Diagnoses / Procedures Referred By Contac t Referred To Contact [facility] Diagnoses ESRD (end stage renal disease) (HCC) Procedures US A/V FISTULA GRAFT UNL VAS LAB DUPLEX SCAN [place] [address] [place] [id number] [address] Referral ID Status Reason Start Date Expiration Date Visits Requested Visits Authorized [id number] Authorized Auto-Generat ed Referral 10/23/2023 10/22/2024 1 1 [facility] for referral (narrative)* Outpatient Procedure (Routine) - Authorized Specialty Diagnoses / Procedures Referred By Contac t Referred To [facility] Diagnoses Arteriovenous fistula, acquired (HCC) Procedures US ARM ARTERIAL UNL VAS LAB DUP-SCAN UXTR ART/ARTL BPGS UNI/LMTD STUDY Gio Velarde MD [address] [place] [address] [facility] [address] [place] [address] Referral ID Status Reason Start Date Expiration Date Visits Requested Visits Authorized [id number] Authorized Auto-Generat ed Referral 10/23/2023 10/22/2024 1 1 [facility] for referral (narrative)* Diagnostic Procedure Only (Urgent) - Closed Specialty Diagnoses / Procedures Referred By Contac t Referred To Contact [facility] IMAGING Diagnoses Lumbar pain Procedures XR LUMBAR GENERAL 3V AP/LAT/L5-S1 RADEX SPINE LUMBOSACRAL 2/3 VIEWS Christal Lima PA [address] [place] [address] Xr Imaging [id number] Referral ID Status Reason Start Date Expiration Date V isits Requested Visits Authorized [id number] Closed Auto-Generate d Referral 04/01/2024 05/01/2025 1 1 [facility] for referral (narrative)* Diagnostic Procedure Only (Urgent) - Closed Specialty Diagnoses / Procedures Referred By Contac t Referred To Contact [facility]R IMAGING Diagnoses Lumbar pain Procedures XR LUMBAR GENERAL 3V AP/LAT/L5-S1 RADEX SPINE LUMBOSACRAL 2/3 VIEWS Christal Lima PA [address] [place] [address] [place] [address] Referral ID Status Reason Start Date Expiration Date V isits Requested Visits Authorized [id number] Closed Auto-Generate d Referral 04/01/2024 05/01/2025 1 1 [facility]No reason for referral information [facility]WC[facility] Work [facility]: Reason for visit Narrative* Diagnostic Procedure Only (Urgent) - Closed Specialty Diagnoses / Procedures Referred By Ja t Referred To Contact XR IMAGING Diagnoses Lumbar pain Procedures XR LUMBAR GENERAL 3V AP/LAT/L5-S1 RADEX SPINE LUMBOSACRAL 2/3 VIEWS Christal Lima, DEBBIE [address] [place] [address] [place] [id number] Referral ID Status Reason Start Date Expiration Date V isits Requested Visits Authorized [id number] Closed Auto-Generate d Referral 04/01/2024 05/01/2025 [address] [facility] Family History No Family History Records FoundUnknown Family Member Name Dates Details No pertinent family history( V49.89, Z78.9) Comments:Other Status:Active Unknown Family Member Name Dates Details Family history of hypertensi on(V17.49, Z82.49) Comments:Other Status:Active Family history of diabetes m ellitus(V18.0, Z83.3) Comments:Other Status:Active Unknown Family Member Name Dates Details No pertinent family history( V49.89, Z78.9) Comments:Other Status:Active Unknown Family Member Name Dates Details No pertinent family history( V49.89, Z78.9) Comments:Other Status:Active Unknown Family Member Name Dates Details Family history of hypertensi on: Other(V17.49, Z82.49) Status:Active Family history of diabetes m ellitus: Other(V18.0, Z83.3) Status:Active Unknown Family Member Name Dates Details Family history of hypertensi on: Other(V17.49, Z82.49) Status:Active Family history of diabetes m ellitus: Other(V18.0, Z83.3) Status:Active Unknown Family Member Name Dates Details Family history of hypertensi on: Other(V17.49, Z82.49) Status:Active Family history of diabetes m ellitus: Other(V18.0, Z83.3) Status:Active Unknown Family Member Name Dates Details Family history of hypertensi on: Other(V17.49, Z82.49) Status:Active Family history of diabetes m ellitus: Other(V18.0, Z83.3) Status:Active Unknown Family Member Name Dates Details Family history of hypertensi on: Other(V17.49, Z82.49) Status:Active Family history of diabetes m ellitus: Other(V18.0, Z83.3) Status:Active Unknown Family Member Name Dates Details Family history of hypertensi on: Other(V17.49, Z82.49) Status:Active Family history of diabetes m ellitus: Other(V18.0, Z83.3) Status:Active Unknown Family Member Name Dates Details Family history of hypertensi on: Other(V17.49, Z82.49) Status:Active Family history of diabetes m ellitus: Other(V18.0, Z83.3) Status:Active Relationship Condition Age at Onset Recorded Date/T anahi father Diabetes mellitus Unknown Cardiac disease Unknown Hypertension Unknown Presence of implanta ble cardioverter-defibrillator (ICD) Unknown brother Cardiac disease Unknown Diabetes mellitus Unknown Presence of left jayy tricular assist device (LVAD) Unknown Summary Purpose Advance Directives No Advanced Directives Records FoundDocuments on File Type Date 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 Advance Directive(s) 09/18/2021 10:32 AM Advance Directive(s) 07/17/2021 1:11 PM Advance Directive(s) 07/17/2021 1:14 PM Advance Directive(s) 07/11/2021 11:11 AM Advance Directive(s) 01/10/2021 10:35 AM Advance Directive(s) 09/13/2020 10:45 AM Advance Directive(s) 07/03/2020 9:39 AM Advance Directive(s) 03/28/2020 12:45 PM Advance Directive(s) 03/23/2020 8:14 AM Advance Directive(s) 03/21/2020 9:56 AM Advance Directive(s) 02/03/2020 10:59 AM Advance Directive(s) 07/27/2019 7:51 AM Advance Directive Response Recorded Date/ Time Advance Directives Yes April 24, 2018 2:58pm Living Will Yes March 27 5:39pm Power of Reflow Operator Yes March 27 5:39pm Advance Directive Response Recorded Date/ Time Name of Medical Power of Reflow Operator Marina duff February 04, 2022 4:58am Advance Directives Yes April 24, 2018 2:58pm Living Will Yes February 04 4:58am Power of Reflow Operator Yes February 04, 022 4:58am Documents on File Type Date 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 Advance Directive(s) 07/17/2021 1:14 PM Documents on File Type Date Recorded 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 Advance Directive(s) 07/17/2021 1:14 PM Advance Directive Response Recorded Date/ Time Advance Directives Yes April 24, 2018 1:58pm Living Will No June 29 8:57pm Power of Reflow Operator No June 29, 023 8:57pm Advance Directive Response Recorded Date/ Time Advance Directives Yes April 24, 2018 1:58pm Living Will No July 30 8:27pm Power of Reflow Operator No July 30, 2022 8:27pm Documents on File Type Date 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 No December 07, 2024 9:38pm Advance Directives Yes April 24, 2018 2:58pm Date Activated Date Inactivated Comments 12/08/2024 9:12 AM Question Answer Comments Plan of Care: Code Status Discussion Completed Decision Maker: Patient Date Activated Date Inactivated Comments 12/08/2024 8:07 AM 12/08/2024 9:12 AM Question Answer Comments Plan of Care: Code Status Discussion Not Compl eted Decision Maker: Provider Rationale: Patient condition does not warra nt discussion tb completed Chief Complaint * ChiefComplaintFreeTextNoteForm_[facility]: * Annual follow up while on kidney transplant list Chief Complaint and Reason for Visit Chief Complaint Sharp chest pains/CM P LDavid CHEST PAIN CHEST PAIN Reason for Visit Chest pain ESRD (end stage renal disease) on dialysis Non-ischemic cardiomyopathy Chief Complaint CHEST PAIN CHEST PAIN 3 M FU/CARMELINA @ 1030 SOB, ESRD ON HD SOB, ESRD ON HD Reason for Visit History of implantab le cardiac defibrillator (ICD) Non-ischemic cardiomyopathy ESRD (end stage renal disease) on dialysis Non-ischemic cardiomyopathy Acute dyspnea Pleural effusion, right Chief Complaint 6 MO F/U (PREV NN PT ) general Reason for Visit ESRD (end stage joe l disease) on dialysis Essential hypertension Non-ischemic cardiomyopathy S/P internal cardiac defibrillator procedure Chief Complaint 6 MO F/U (PREV NN PT ) general CHEST OTHER Reason for Visit ESRD (end stage joe l disease) on dialysis Essential hypertension Non-ischemic cardiomyopathy S/P internal cardiac defibrillator procedure Chief Complaint CHEST OTHER 3 M FU remote PPM f/u DILATED CARDIOMYOPATHY Reason for Visit ESRD (end stage joe l disease) on dialysis Essential hypertension Non-ischemic cardiomyopathy S/P internal cardiac defibrillator procedure Chief Complaint Admit Date Pacer Check Remote August 30, 2024 3:0 3am 6 M FU September 07, 2024 2:2 7pm CARDIOMYOPATHIES October 07, 2024 1:3 7pm Reason for Visit Admit Date Anemia of chronic disease September 07 2:27pm Coronary artery disease September 07, 2024 2:27pm Dyslipidemia September 07, 2024 2:2 7pm ESRD (end stage renal disease) on dialys is September 07, 2024 2:27pm Essential hypertension September 07, 2024 2:27pm Non-ischemic cardiomyopathy September 07, 2024 2:27pm S/P internal cardiac defibrillator proce dure September 07, 2024 2:27pm Chief Complaint Admit Date Pacer Check Remote August 30, 2024 3:0 3am 6 M FU September 07, 2024 2:2 7pm CARDIOMYOPATHIES October 07, 2024 1:3 7pm Pacer Check Remote November 29, 2024 1:50a m ABD December 07, 2024 9:22 pm Medications Administered Section Inactive Administered Medications - up to 3 most recent administrations Medication Order MAR Action Action Date Dose Rate Site fentaNYL 50 mcg/mL injection (SUBLIMAZE) INTRAVENOUS, X (OR/PROCEDURE) PRN, Starting on Fri04/04/22 at 1411, Until Fri04/05/22 at 0303, Intraprocedure Given 04/04/2022 2:11 PM EDT 50 mcg fentaNYL 50 mcg/mL injection (SUBLIMAZE) INTRAVENOUS, X (OR/PROCEDURE) PRN, Starting on Sweta 04/04/22 at 1422, Until Fri04/05/22 at 0303, Intraprocedure Given 04/04/2022 2:22 PM EDT 25 mcg fentaNYL 50 mcg/mL injection (SUBLIMAZE) INTRAVENOUS, X (OR/PROCEDURE) PRN, Starting on Sweta 04/04/22 at 1425, Until Fri04/05/22 at 0303, Intraprocedure Given 04/04/2022 2:25 PM EDT 25 mcg lidocaine (PF) 20 mg/mL (2 %) injection (XYLOCAINE) SUBCUTANEOUS, X (OR/PROCEDURE) PRN, Starting on Sweta 04/04/22 at 1414, Until Fri04/05/22 at 0303, Intraprocedure Given 04/04/2022 2:14 PM EDT 10 mL Chest midazolam (PF) injection (VERSED) INTRAVENOUS, X (OR/PROCEDURE) PRN, Starting on Sweta 04/04/22 at 1412, Until Fri04/05/22 at 0303, Intraprocedure Given 04/04/2022 2:12 PM EDT 1 mg midazolam (PF) injection (VERSED) INTRAVENOUS, X (OR/PROCEDURE) PRN, Starting on Sweta 04/04/22 at 1422, Until Fri04/05/22 at 0303, Intraprocedure Given 04/04/2022 2:22 PM EDT 0.5 mg midazolam (PF) injection (VERSED) INTRAVENOUS, X (OR/PROCEDURE) PRN, Starting on Sweta 04/04/22 at 1426, Until Fri04/05/22 at 0303, Intraprocedure Given 04/04/2022 2:26 PM EDT 0.5 mg NaCl 0.9% iv infusion INTRAVENOUS, X (OR/PROCEDURE) CONTINUOUS, Starting on Sweta 04/04/22 at 1324, Until Fri04/05/22 at 0303, Intraprocedure New Bag/Syringe/Bottle 04/04/2022 1:24 PM EDT 500 mL 75 mL/hr sodium chloride 0.9 % (flush) (BD POSIFLUSH) INTRAVENOUS, X (OR/PROCEDURE) PRN, Starting on Sweta 04/04/22 at 1324, Until Fri04/05/22 at 0303, Intraprocedure Given 04/04/2022 1:24 PM EDT 10 mL Reason for Referral Specialty Diagnoses / Procedures Referred By Contac t Referred To Contact CT IMAGING Diagnoses Vasculopathy Procedures CTA CHEST (NONGATED) WO/W IVCON CT ANGIOGRAPHY CHEST W/CONTRAST/NONCONTRAST Gio Velarde MD [address] [place] [address] Ct Imaging [id number] Referral ID Status Reason Start Date Expiration Date Visits Requested Visits Authorized [id number] Pending Review Auto-Generat ed Referral 05/29/2023 06/27/2024 1 1 Specialty Diagnoses / Procedures Referred By Contac t Referred To Contact CT IMAGING Diagnoses Vasculopathy SVC (superior vena cava obstruction) Procedures CTA ABD/PEL WO/W IVCON CT ANGIO ABD&PLVIS CNTRST MTRL W/WO CNTRST Gio Barrow MD [address] [place] [address] Ct Imaging [id number] Referral ID Status Reason Start Date Expiration Date Visits Requested Visits Authorized [id number] Pending Review Auto-Generat ed Referral 05/23/2023 06/21/2024 1 1 Specialty Diagnoses / Procedures Referred By Contac t Referred To Contact CT IMAGING Diagnoses Vasculopathy SVC (superior vena cava obstruction) Procedures CTA CHEST (NONGATED) WO/W IVCON CT ANGIOGRAPHY CHEST W/CONTRAST/NONCONTRAST Gio Velarde MD [address] [place] [address] [id number] Referral ID Status Reason Start Date Expiration Date Visits Requested Visits Authorized [id number] Pending Review Auto-Generat ed Referral 05/23/2023 06/21/2024 1 1 Specialty Diagnoses / Procedures Referred By Contac t Referred To Contact Manjit Field MD [address] [place] [address] Referral ID Status Reason Start Date Expiration Date V isits Requested Visits Authorized [id number] Pending Review 1 1 Additional Source Comments (unrecognized sect ion and content) No Status Records FoundNo Status Records FoundNo Status Records FoundNo Status Records FoundNo Status Records FoundNo Status Records FoundNo Status Records FoundNo Status Records FoundNo Status Records FoundNo Status Records FoundNo Status Records FoundNo Status Records FoundNo Status Records Found INFORMATION SOURCE (unrecogn ized section and content) DATE CREATED AUTHOR 01/16/2021 [facility] DATE CREATED AUTHOR AUTHOR'S ORGANIZ ATION 03/01/2021 [employer] DATE CREATED AUTHOR AUTHOR'S ORGANIZ ATION 04/12/2021 [facility] DATE CREATED AUTHOR AUTHOR'S ORGANIZ ATION 09/20/2022 [facility] DATE CREATED AUTHOR AUTHOR'S ORGANIZ ATION 10/14/2022 [facility] DATE CREATED AUTHOR AUTHOR'S ORGANIZ ATION 05/18/2023 [facility]) DATE CREATED AUTHOR AUTHOR'S ORGANIZ ATION 07/01/2023 [facility] DATE CREATED AUTHOR AUTHOR'S ORGANIZ ATION 11/25/2024 [facility] DATE CREATED AUTHOR AUTHOR'S ORGANIZ ATION 12/12/2024 [facility] DATE CREATED AUTHOR AUTHOR'S ORGANIZ ATION 03/04/2025 [facility] DATE CREATED AUTHOR AUTHOR'S ORGANIZ ATION 03/11/2025 [facility] DATE CREATED AUTHOR AUTHOR'S ORGANIZ ATION 03/13/2025 [facility] DATE CREATED AUTHOR AUTHOR'S ORGANIZ ATION 03/15/2025 [facility] Source Comments (unrecognize d section and content) In the event this informatio n is protected by the Federal Confidentiality of Alcohol and Drug Abuse Patient Records regulations: The Federal rules restrict any use of the information to criminally investigate or prosecute any alcohol or drug abuse patient.[facility] the event this information is protected by the Federal Confidentiality of Alcohol and Drug Abuse Patient Records regulations: The Federal rules restrict any use of the information to criminally investigate or prosecute any alcohol or drug abuse patient.[facility] HospitalIn the event this information is protected by the Federal Confidentiality of Alcohol and Drug Abuse Patient Records regulations: The Federal rules restrict any use of the information to criminally investigate or prosecute any alcohol or drug abuse patient.[facility] HospitalIn the event this information is protected by the Federal Confidentiality of Alcohol and Drug Abuse Patient Records regulations: The Federal rules restrict any use of the information to criminally investigate or prosecute any alcohol or drug abuse patient.[facility] HospitalIn the event this information is protected by the Federal Confidentiality of Alcohol and Drug Abuse Patient Records regulations: The Federal rules restrict any use of the information to criminally investigate or prosecute any alcohol or drug abuse patient.[facility] HospitalIn the event this information is protected by the Federal Confidentiality of Alcohol and Drug Abuse Patient Records regulations: The Federal rules restrict any use of the information to criminally investigate or prosecute any alcohol or drug abuse patient.[facility] HospitalIn the event this information is protected by the Federal Confidentiality of Alcohol and Drug Abuse Patient Records regulations: The Federal rules restrict any use of the information to criminally investigate or prosecute any alcohol or drug abuse patient.[facility] HospitalIn the event this information is protected by the Federal Confidentiality of Alcohol and Drug Abuse Patient Records regulations: The Federal rules restrict any use of the information to criminally investigate or prosecute any alcohol or drug abuse patient.[facility] HospitalIn the event this information is protected by the Federal Confidentiality of Alcohol and Drug Abuse Patient Records regulations: The Federal rules restrict any use of the information to criminally investigate or prosecute any alcohol or drug abuse patient.[facility] HospitalIn the event this information is protected by the Federal Confidentiality of Alcohol and Drug Abuse Patient Records regulations: The Federal rules restrict any use of the information to criminally investigate or prosecute any alcohol or drug abuse patient.[facility] HospitalIn the event this information is protected by the Federal Confidentiality of Alcohol and Drug Abuse Patient Records regulations: The Federal rules restrict any use of the information to criminally investigate or prosecute any alcohol or drug abuse patient.[facility] HospitalIn the event this information is protected by the Federal Confidentiality of Alcohol and Drug Abuse Patient Records regulations: The Federal rules restrict any use of the information to criminally investigate or prosecute any alcohol or drug abuse patient.[facility] HospitalIn the event this information is protected by the Federal Confidentiality of Alcohol and Drug Abuse Patient Records regulations: The Federal rules restrict any use of the information to criminally investigate or prosecute any alcohol or drug abuse patient.[facility] HospitalIn the event this information is protected by the Federal Confidentiality of Alcohol and Drug Abuse Patient Records regulations: The Federal rules restrict any use of the information to criminally investigate or prosecute any alcohol or drug abuse patient.[facility] HospitalIn the event this information is protected by the Federal Confidentiality of Alcohol and Drug Abuse Patient Records regulations: The Federal rules restrict any use of the information to criminally investigate or prosecute any alcohol or drug abuse patient.[facility] HospitalIn the event this information is protected by the Federal Confidentiality of Alcohol and Drug Abuse Patient Records regulations: The Federal rules restrict any use of the information to criminally investigate or prosecute any alcohol or drug abuse patient.[facility] HospitalIn the event this information is protected by the Federal Confidentiality of Alcohol and Drug Abuse Patient Records regulations: The Federal rules restrict any use of the information to criminally investigate or prosecute any alcohol or drug abuse patient.[facility] HospitalIn the event this information is protected by the Federal Confidentiality of Alcohol and Drug Abuse Patient Records regulations: The Federal rules restrict any use of the information to criminally investigate or prosecute any alcohol or drug abuse patient.[facility] HospitalIn the event this information is protected by the Federal Confidentiality of Alcohol and Drug Abuse Patient Records regulations: The Federal rules restrict any use of the information to criminally investigate or prosecute any alcohol or drug abuse patient.[facility] HospitalIn the event this information is protected by the Federal Confidentiality of Alcohol and Drug Abuse Patient Records regulations: The Federal rules restrict any use of the information to criminally investigate or prosecute any alcohol or drug abuse patient.[facility] HospitalIn the event this information is protected by the Federal Confidentiality of Alcohol and Drug Abuse Patient Records regulations: The Federal rules restrict any use of the information to criminally investigate or prosecute any alcohol or drug abuse patient.[facility] HospitalIn the event this information is protected by the Federal Confidentiality of Alcohol and Drug Abuse Patient Records regulations: The Federal rules restrict any use of the information to criminally investigate or prosecute any alcohol or drug abuse patient.[facility] HospitalIn the event this information is protected by the Federal Confidentiality of Alcohol and Drug Abuse Patient Records regulations: The Federal rules restrict any use of the information to criminally investigate or prosecute any alcohol or drug abuse patient.[facility] HospitalIn the event this information is protected by the Federal Confidentiality of Alcohol and Drug Abuse Patient Records regulations: The Federal rules restrict any use of the information to criminally investigate or prosecute any alcohol or drug abuse patient.[facility] HospitalIn the event this information is protected by the Federal Confidentiality of Alcohol and Drug Abuse Patient Records regulations: The Federal rules restrict any use of the information to criminally investigate or prosecute any alcohol or drug abuse patient.[facility] HospitalIn the event this information is protected by the Federal Confidentiality of Alcohol and Drug Abuse Patient Records regulations: The Federal rules restrict any use of the information to criminally investigate or prosecute any alcohol or drug abuse patient.[facility] HospitalIn the event this information is protected by the Federal Confidentiality of Alcohol and Drug Abuse Patient Records regulations: The Federal rules restrict any use of the information to criminally investigate or prosecute any alcohol or drug abuse patient.[facility] HospitalIn the event this information is protected by the Federal Confidentiality of Alcohol and Drug Abuse Patient Records regulations: The Federal rules restrict any use of the information to criminally investigate or prosecute any alcohol or drug abuse patient.[facility] HospitalIn the event this information is protected by the Federal Confidentiality of Alcohol and Drug Abuse Patient Records regulations: The Federal rules restrict any use of the information to criminally investigate or prosecute any alcohol or drug abuse patient.[facility] HospitalIn the event this information is protected by the Federal Confidentiality of Alcohol and Drug Abuse Patient Records regulations: The Federal rules restrict any use of the information to criminally investigate or prosecute any alcohol or drug abuse patient.[facility] HospitalIn the event this information is protected by the Federal Confidentiality of Alcohol and Drug Abuse Patient Records regulations: The Federal rules restrict any use of the information to criminally investigate or prosecute any alcohol or drug abuse patient.[facility] HospitalIn the event this information is protected by the Federal Confidentiality of Alcohol and Drug Abuse Patient Records regulations: The Federal rules restrict any use of the information to criminally investigate or prosecute any alcohol or drug abuse patient.[facility] the event this information is protected by the Federal Confidentiality of Alcohol and Drug Abuse Patient Records regulations: The Federal rules restrict any use of the information to criminally investigate or prosecute any alcohol or drug abuse patient.[facility] HospitalIn the event this information is protected by the Federal Confidentiality of Alcohol and Drug Abuse Patient Records regulations: The Federal rules restrict any use of the information to criminally investigate or prosecute any alcohol or drug abuse patient.[facility] HospitalIn the event this information is protected by the Federal Confidentiality of Alcohol and Drug Abuse Patient Records regulations: The Federal rules restrict any use of the information to criminally investigate or prosecute any alcohol or drug abuse patient.[facility] HospitalIn the event this information is protected by the Federal Confidentiality of Alcohol and Drug Abuse Patient Records regulations: The Federal rules restrict any use of the information to criminally investigate or prosecute any alcohol or drug abuse patient.[facility] HospitalIn the event this information is protected by the Federal Confidentiality of Alcohol and Drug Abuse Patient Records regulations: The Federal rules restrict any use of the information to criminally investigate or prosecute any alcohol or drug abuse patient.[facility] HospitalIn the event this information is protected by the Federal Confidentiality of Alcohol and Drug Abuse Patient Records regulations: The Federal rules restrict any use of the information to criminally investigate or prosecute any alcohol or drug abuse patient.[facility] HospitalIn the event this information is protected by the Federal Confidentiality of Alcohol and Drug Abuse Patient Records regulations: The Federal rules restrict any use of the information to criminally investigate or prosecute any alcohol or drug abuse patient.[facility] HospitalIn the event this information is protected by the Federal Confidentiality of Alcohol and Drug Abuse Patient Records regulations: The Federal rules restrict any use of the information to criminally investigate or prosecute any alcohol or drug abuse patient.[facility] HospitalIn the event this information is protected by the Federal Confidentiality of Alcohol and Drug Abuse Patient Records regulations: The Federal rules restrict any use of the information to criminally investigate or prosecute any alcohol or drug abuse patient.[facility] HospitalIn the event this information is protected by the Federal Confidentiality of Alcohol and Drug Abuse Patient Records regulations: The Federal rules restrict any use of the information to criminally investigate or prosecute any alcohol or drug abuse patient.[facility] HospitalIn the event this information is protected by the Federal Confidentiality of Alcohol and Drug Abuse Patient Records regulations: The Federal rules restrict any use of the information to criminally investigate or prosecute any alcohol or drug abuse patient.[facility] HospitalIn the event this information is protected by the Federal Confidentiality of Alcohol and Drug Abuse Patient Records regulations: The Federal rules restrict any use of the information to criminally investigate or prosecute any alcohol or drug abuse patient.[facility] HospitalIn the event this information is protected by the Federal Confidentiality of Alcohol and Drug Abuse Patient Records regulations: The Federal rules restrict any use of the information to criminally investigate or prosecute any alcohol or drug abuse patient.[facility] HospitalIn the event this information is protected by the Federal Confidentiality of Alcohol and Drug Abuse Patient Records regulations: The Federal rules restrict any use of the information to criminally investigate or prosecute any alcohol or drug abuse patient.[facility] HospitalIn the event this information is protected by the Federal Confidentiality of Alcohol and Drug Abuse Patient Records regulations: The Federal rules restrict any use of the information to criminally investigate or prosecute any alcohol or drug abuse patient.[facility] HospitalIn the event this information is protected by the Federal Confidentiality of Alcohol and Drug Abuse Patient Records regulations: The Federal rules restrict any use of the information to criminally investigate or prosecute any alcohol or drug abuse patient.[facility] HospitalIn the event this information is protected by the Federal Confidentiality of Alcohol and Drug Abuse Patient Records regulations: The Federal rules restrict any use of the information to criminally investigate or prosecute any alcohol or drug abuse patient.[facility] HospitalIn the event this information is protected by the Federal Confidentiality of Alcohol and Drug Abuse Patient Records regulations: The Federal rules restrict any use of the information to criminally investigate or prosecute any alcohol or drug abuse patient.[facility] HospitalIn the event this information is protected by the Federal Confidentiality of Alcohol and Drug Abuse Patient Records regulations: The Federal rules restrict any use of the information to criminally investigate or prosecute any alcohol or drug abuse patient.[facility] HospitalIn the event this information is protected by the Federal Confidentiality of Alcohol and Drug Abuse Patient Records regulations: The Federal rules restrict any use of the information to criminally investigate or prosecute any alcohol or drug abuse patient.[facility] HospitalIn the event this information is protected by the Federal Confidentiality of Alcohol and Drug Abuse Patient Records regulations: The Federal rules restrict any use of the information to criminally investigate or prosecute any alcohol or drug abuse patient.[facility] HospitalIn the event this information is protected by the Federal Confidentiality of Alcohol and Drug Abuse Patient Records regulations: The Federal rules restrict any use of the information to criminally investigate or prosecute any alcohol or drug abuse patient.[facility] HospitalIn the event this information is protected by the Federal Confidentiality of Alcohol and Drug Abuse Patient Records regulations: The Federal rules restrict any use of the information to criminally investigate or prosecute any alcohol or drug abuse patient.[facility] HospitalIn the event this information is protected by the Federal Confidentiality of Alcohol and Drug Abuse Patient Records regulations: The Federal rules restrict any use of the information to criminally investigate or prosecute any alcohol or drug abuse patient.[facility] HospitalIn the event this information is protected by the Federal Confidentiality of Alcohol and Drug Abuse Patient Records regulations: The Federal rules restrict any use of the information to criminally investigate or prosecute any alcohol or drug abuse patient.[facility] HospitalIn the event this information is protected by the Federal Confidentiality of Alcohol and Drug Abuse Patient Records regulations: The Federal rules restrict any use of the information to criminally investigate or prosecute any alcohol or drug abuse patient.[facility] HospitalIn the event this information is protected by the Federal Confidentiality of Alcohol and Drug Abuse Patient Records regulations: The Federal rules restrict any use of the information to criminally investigate or prosecute any alcohol or drug abuse patient.[facility] HospitalIn the event this information is protected by the Federal Confidentiality of Alcohol and Drug Abuse Patient Records regulations: The Federal rules restrict any use of the information to criminally investigate or prosecute any alcohol or drug abuse patient.[facility] HospitalIn the event this information is protected by the Federal Confidentiality of Alcohol and Drug Abuse Patient Records regulations: The Federal rules restrict any use of the information to criminally investigate or prosecute any alcohol or drug abuse patient.[facility] HospitalIn the event this information is protected by the Federal Confidentiality of Alcohol and Drug Abuse Patient Records regulations: The Federal rules restrict any use of the information to criminally investigate or prosecute any alcohol or drug abuse patient.[facility] HospitalIn the event this information is protected by the Federal Confidentiality of Alcohol and Drug Abuse Patient Records regulations: The Federal rules restrict any use of the information to criminally investigate or prosecute any alcohol or drug abuse patient.[facility] HospitalIn the event this information is protected by the Federal Confidentiality of Alcohol and Drug Abuse Patient Records regulations: The Federal rules restrict any use of the information to criminally investigate or prosecute any alcohol or drug abuse patient.[facility] HospitalIn the event this information is protected by the Federal Confidentiality of Alcohol and Drug Abuse Patient Records regulations: The Federal rules restrict any use of the information to criminally investigate or prosecute any alcohol or drug abuse patient.[facility] HospitalIn the event this information is protected by the Federal Confidentiality of Alcohol and Drug Abuse Patient Records regulations: The Federal rules restrict any use of the information to criminally investigate or prosecute any alcohol or drug abuse patient.[facility] HospitalIn the event this information is protected by the Federal Confidentiality of Alcohol and Drug Abuse Patient Records regulations: The Federal rules restrict any use of the information to criminally investigate or prosecute any alcohol or drug abuse patient.[facility] HospitalIn the event this information is protected by the Federal Confidentiality of Alcohol and Drug Abuse Patient Records regulations: The Federal rules restrict any use of the information to criminally investigate or prosecute any alcohol or drug abuse patient.[facility] HospitalIn the event this information is protected by the Federal Confidentiality of Alcohol and Drug Abuse Patient Records regulations: The Federal rules restrict any use of the information to criminally investigate or prosecute any alcohol or drug abuse patient.[facility] HospitalIn the event this information is protected by the Federal Confidentiality of Alcohol and Drug Abuse Patient Records regulations: The Federal rules restrict any use of the information to criminally investigate or prosecute any alcohol or drug abuse patient.[facility] HospitalIn the event this information is protected by the Federal Confidentiality of Alcohol and Drug Abuse Patient Records regulations: The Federal rules restrict any use of the information to criminally investigate or prosecute any alcohol or drug abuse patient.[facility] HospitalIn the event this information is protected by the Federal Confidentiality of Alcohol and Drug Abuse Patient Records regulations: The Federal rules restrict any use of the information to criminally investigate or prosecute any alcohol or drug abuse patient.[facility] HospitalIn the event this information is protected by the Federal Confidentiality of Alcohol and Drug Abuse Patient Records regulations: The Federal rules restrict any use of the information to criminally investigate or prosecute any alcohol or drug abuse patient.[facility] HospitalIn the event this information is protected by the Federal Confidentiality of Alcohol and Drug Abuse Patient Records regulations: The Federal rules restrict any use of the information to criminally investigate or prosecute any alcohol or drug abuse patient.[facility] HospitalIn the event this information is protected by the Federal Confidentiality of Alcohol and Drug Abuse Patient Records regulations: The Federal rules restrict any use of the information to criminally investigate or prosecute any alcohol or drug abuse patient.[facility] HospitalIn the event this information is protected by the Federal Confidentiality of Alcohol and Drug Abuse Patient Records regulations: The Federal rules restrict any use of the information to criminally investigate or prosecute any alcohol or drug abuse patient.[facility] HospitalIn the event this information is protected by the Federal Confidentiality of Alcohol and Drug Abuse Patient Records regulations: The Federal rules restrict any use of the information to criminally investigate or prosecute any alcohol or drug abuse patient.[facility] HospitalIn the event this information is protected by the Federal Confidentiality of Alcohol and Drug Abuse Patient Records regulations: The Federal rules restrict any use of the information to criminally investigate or prosecute any alcohol or drug abuse patient.[facility] HospitalIn the event this information is protected by the Federal Confidentiality of Alcohol and Drug Abuse Patient Records regulations: The Federal rules restrict any use of the information to criminally investigate or prosecute any alcohol or drug abuse patient.[facility] HospitalIn the event this information is protected by the Federal Confidentiality of Alcohol and Drug Abuse Patient Records regulations: The Federal rules restrict any use of the information to criminally investigate or prosecute any alcohol or drug abuse patient.[facility] HospitalIn the event this information is protected by the Federal Confidentiality of Alcohol and Drug Abuse Patient Records regulations: The Federal rules restrict any use of the information to criminally investigate or prosecute any alcohol or drug abuse patient.[facility] HospitalIn the event this information is protected by the Federal Confidentiality of Alcohol and Drug Abuse Patient Records regulations: The Federal rules restrict any use of the information to criminally investigate or prosecute any alcohol or drug abuse patient.[facility] HospitalIn the event this information is protected by the Federal Confidentiality of Alcohol and Drug Abuse Patient Records regulations: The Federal rules restrict any use of the information to criminally investigate or prosecute any alcohol or drug abuse patient.[facility] Care Teams (unrecognized sec tion and content) Sugar Trucker Relationship Specialty Start Date End Date Tom Conte MD [address] [place], [place] [id number] [phone] PCP - General Family Practice 08/18/15 Robert Garcia MD Nephrology 01/02/17 Sugar Trucker Relationship Specialty Start Date End Date Tom Conte MD [address] [place] [address] PCP - General Family Practice 08/18/15 Robert Garcia MD Nephrology 01/02/17 Sugar Trucker Relationship Specialty Start Date End Date Tom Conte MD [address] [place] [address] PCP - General Family Practice 08/18/15 Robert Garcia MD Nephrology 01/02/17 Sugar Trucker Relationship Specialty Start Date End Date Tom Conte MD [address] [facility] [place] [address] PCP - General Family Practice 08/18/15 Robert Garcia MD Nephrology 01/02/17 Sugar Trucker Relationship Specialty Start Date End Date Tom Conte MD [address] [facility] [place] [address] PCP - General Family Practice 08/18/15 Robert Garcia MD Nephrology 01/02/17 Sugar Trucker Relationship Specialty Start Date End Date Tom Conte MD [address] [place] [address] PCP - General Family Practice 08/18/15 Robert Garcia MD Nephrology 01/02/17 Sugar Trucker Relationship Specialty Start Date End Date Tom Conte MD [address] [facility] [place] [address] PCP - General Family Practice 08/18/15 Robert Garcia MD Nephrology 01/02/17 Sugar Trucker Relationship Specialty Start Date End Date Tom Conte MD [address] [facility] [place] [address] PCP - General Family Practice 08/18/15 Robert Garcia MD Nephrology 01/02/17 Sugar Trucker Relationship Specialty Start Date End Date Tom Conte MD [address] [facility] [place] [address] PCP - General Family Practice 08/18/15 Robert Garcia MD Nephrology 01/02/17 Sugar Trucker Relationship Specialty Start Date End Date Tom Conte MD [address] [facility] [place] [place] [address] PCP - General Family Medicine 08/18/15 Robert Garcia MD Nephrology 01/02/17 Sugar Trucker Relationship Specialty Start Date End Date Tom Conte MD [address] [place] [address] PCP - General Family Medicine 08/18/15 Robert Garcia MD Nephrology 01/02/17 Sugar Trucker Relationship Specialty Start Date End Date Tom Conte MD [address] [place] [address] PCP - General Family Medicine 08/18/15 Robert Garcia MD Nephrology 01/02/17 Sugar Trucker Relationship Specialty Start Date End Date Tom Conte MD [address] [facility] [place] [address] PCP - General Family Medicine 08/18/15 Robert Garcia MD Nephrology 01/02/17 Sugar Trucker Relationship Specialty Start Date End Date Tom Conte MD [address] [place] [address] PCP - General Family Medicine 08/18/15 Robert Garcia MD Nephrology 01/02/17 Sugar Trucker Relationship Specialty Start Date End Date Tom Conte MD [address] [facility] [place] [address] PCP - General Family Medicine 08/18/15 Robert Garcia MD [address] [facility] [place] [address] Nephrology 01/02/17 Sugar Trucker Relationship Specialty Start Date End Date Tom Conte MD [address] [facility] [place] [address] PCP - General Family Medicine 08/18/15 Robert Garcia MD [address] [facility] [place] [place] [address] Nephrology 01/02/17 Sugar Trucker Relationship Specialty Start Date End Date Tom Conte MD [address] [facility] [place] [address] PCP - General Family Medicine 08/18/15 Robert Garcia MD [address] [facility] [place] [place] [address] Nephrology 01/02/17 Sugar Trucker Relationship Specialty Start Date End Date Tom Conte MD [address] [facility] [place] [address] PCP - General Family Medicine 08/18/15 Robert Garcia MD [address] [facility] [place] [address] Nephrology 01/02/17 Sugar Trucker Relationship Specialty Start Date End Date Tom Conte MD [address] [facility] [place] [address] PCP - General Family Medicine 08/18/15 Robert Garcia MD [address] [facility] [place] [place] [address] Nephrology 01/02/17 Sugar Trucker Relationship Specialty Start Date End Date Tom Conte MD [address] [facility] [place] [address] PCP - General Family Medicine 08/18/15 Robert Garcia MD [address] [facility] [place] [address] Nephrology 01/02/17 Sugar Trucker Relationship Specialty Start Date End Date Tom Conte MD [address] [facility] [place] [address] PCP - General Family Medicine 08/18/15 Robert Garcia MD [address] [facility] [place] [address] Nephrology 01/02/17 Sugar Trucker Relationship Specialty Start Date End Date Tom Conte MD [address] [facility] [place] [address] PCP - General Family Medicine 08/18/15 Robert Garcia MD [address] [facility] [place] [address] Nephrology 01/02/17 Team Status: Active Member Role Status Dates Dr. Tom Conte MD Family Provider Active Dr. Tom Conte MD Primary Care Provider Active Team Status: Inactive Member Role Status Dates Dr. Tom Conte MD Primary Care Provider, Referri ng Provider Active Dr. Tevin Khan MD Attending Provider Active Team Status: Inactive Member Role Status Dates Dr. Tom Conte MD Primary Care Provider Active Dr. Oneil Underwood MD Attending Provider, Emergency Pro vider Active Team Status: Inactive Member Role Status Dates Dr. Tom Conte MD Primary Care Provider Active Dr. Maine Leland , DO Emergency Provider Active Sugar Trucker Relationship Specialty Start Date End Date Tom Conte MD [address] [facility] [place] [address] PCP - General Family Medicine 08/18/15 Robert Garcia MD [address] [place] [address] Nephrology 01/02/17 Sugar Trucker Relationship Specialty Start Date End Date Tom Conte MD [address] [place] [address] PCP - General Family Medicine 08/18/15 Robert Garcia MD [address] [facility] [place] [place] [address] Nephrology 01/02/17 Sugar Trucker Relationship Specialty Start Date End Date Tom Conte MD [address] [place] [address] PCP - General Family Medicine 08/18/15 Robert Garcia MD [address] [facility] [place] [place] [address] Nephrology 01/02/17 Sugar Trucker Relationship Specialty Start Date End Date Tom Conte MD [address] [place] [address] PCP - General Family Medicine 08/18/15 Robert Garcia MD [address] [place] [address] Nephrology 01/02/17 Sugar Trucker Relationship Specialty Start Date End Date Tom Conte MD [address] [place] [address] PCP - General Family Medicine 08/18/15 Robert Garcia MD [address] [facility] [place] [address] Nephrology 01/02/17 Team Status: Inactive Member Role Status Dates Dr. Tom Conte MD Primary Care Provider, Referri ng Provider Active Janie Mcclure Attending Provider Active Team Status: Active Member Role Status Dates Dr. Tom Conte MD Primary Care Provider Active Dr. Pablo Rogers MD Attending Provider Active Team Status: Inactive Member Role Status Dates Dr. Tom Conte MD Primary Care Provider Active Dr. Maine Ha DO Attending Provider, Emergency Provider Active Team Status: Inactive Member Role Status Dates Dr. Tom Conte MD Primary Care Provider Active Dr. Tevin Khan MD Attending Provider, Referring Leo willingham Active Sugar Trucker Relationship Specialty Start Date End Date Tom Conte MD [address] [place] [address] PCP - General Family Medicine 08/18/15 Robert Garcia MD [address] [place] [address] Nephrology 01/02/17 Sugar Trucker Relationship Specialty Start Date End Date Tom Conte MD [address] [place] [address] PCP - General Family Medicine 08/18/15 Robert Garcia MD [address] [place] [address] Nephrology 01/02/17 Sugar Trucker Relationship Specialty Start Date End Date Tom Conte MD [address] [place] [address] PCP - General Family Medicine 08/18/15 Robert Garcia MD [address] [place] [address] Nephrology 01/02/17 Sugar Trucker Relationship Specialty Start Date End Date Tom Conte MD [address] [facility] [place] [address] PCP - General Family Medicine 08/18/15 Robert Garcia MD [address] [facility] [place] [address] Nephrology 01/02/17 Sugar Trucker Relationship Specialty Start Date End Date Tom Conte MD [address] [facility] [place] [address] PCP - General Family Medicine 08/18/15 Robert Garcia MD [address] [facility] [place] [address] Nephrology 01/02/17 Sugar Trucker Relationship Specialty Start Date End Date Tom Conte MD [address] [facility] [place] [address] PCP - General Family Medicine 08/18/15 Robert Garcia MD [address] [facility] [place] [address] Nephrology 01/02/17 Sugar Trucker Relationship Specialty Start Date End Date Tom Conte MD [address] [facility] [place] [address] PCP - General Family Medicine 08/18/15 Robert Garcia MD [address] [facility] [place] [address] Nephrology 01/02/17 Sugar Trucker Relationship Specialty Start Date End Date Monie Alston DO [address] [facility] [place] [address] PCP - General Family Medicine 06/04/23 Robert Garcia MD Nephrology 01/02/17 Sugar Trucker Relationship Specialty Start Date End Date Monie Alston DO [address] [facility] [place] [address] PCP - General Family Medicine 06/04/23 Robert Garcia MD Nephrology 01/02/17 Sugar Trucker Relationship Specialty Start Date End Date Monie Alston DO [address] [place] [address] PCP - General Family Medicine 06/04/23 Robert Garcia MD Nephrology 01/02/17 Sugar Trucker Relationship Specialty Start Date End Date Monie Alston DO [address] [facility] [place] [address] PCP - General Family Medicine 06/04/23 Robert Garcia MD Nephrology 01/02/17 Sugar Trucker Relationship Specialty Start Date End Date Monie Alston DO [address] [place] [address] PCP - General Family Medicine 06/04/23 Robert Garcia MD Nephrology 01/02/17 Sugar Trucker Relationship Specialty Start Date End Date Monie Alston DO [address] [place] [address] PCP - General Family Medicine 06/04/23 Robert Garcia MD Nephrology 01/02/17 Sugar Trucker Relationship Specialty Start Date End Date Monie Alston DO [address] [place] [address] PCP - General Family Medicine 06/04/23 Robert Garcia MD Nephrology 01/02/17 Sugar Trucker Relationship Specialty Start Date End Date Monie Alston DO [address] [place] [address] PCP - General Family Medicine 06/04/23 Robert Garcia MD Nephrology 01/02/17 Sugar Trucker Relationship Specialty Start Date End Date Monie Alston DO [address] [place] [address] PCP - General Family Medicine 06/04/23 Robert Garcia MD Nephrology 01/02/17 Sugar Trucker Relationship Specialty Start Date End Date Monie Alston DO [address] [place] [address] PCP - General Family Medicine 06/04/23 Robert Garcia MD Nephrology 01/02/17 Sugar Trucker Relationship Specialty Start Date End Date Monie Alston DO [address] [place] [address] PCP - General Family Medicine 06/04/23 Robert Garcia MD Nephrology 01/02/17 Sugar Trucker Relationship Specialty Start Date End Date Monie Alston DO [address] [place] [address] PCP - General Family Medicine 06/04/23 Robert Garcia MD Nephrology 01/02/17 Sugar Trucker Relationship Specialty Start Date End Date Tom Conte MD [address] [place], [place] [address] PCP - General Family Medicine 08/18/15 06/03/23 Robert Garcia MD [address] [place] [address] Nephrology 01/02/17 Sugar Trucker Relationship Specialty Start Date End Date Tom Conte MD [address] [place], [place] [address] PCP - General Family Medicine 08/18/15 06/03/23 Robert Garcia MD [address] [place], [place] [address] Nephrology 01/02/17 Sugar Trucker Relationship Specialty Start Date End Date Tom Conte MD [address] [place], [place] [address] PCP - General Family Medicine 08/18/15 06/03/23 Robert Garcia MD [address] [place] [address] Nephrology 01/02/17 Sugar Trucker Relationship Specialty Start Date End Date Tom Conte MD [address] [place], [place] [address] PCP - General Family Medicine 08/18/15 06/03/23 Robert Garcia MD [address] [place], [place] [address] Nephrology 01/02/17 Sugar Trucker Relationship Specialty Start Date End Date Tom Conte MD [address] [place], [place] [address] PCP - General Family Medicine 08/18/15 06/03/23 Robert Garcia MD [address] [place] [address] Nephrology 01/02/17 Sugar Trucker Relationship Specialty Start Date End Date Tom Conte MD [address] [place] [address] PCP - General Family Medicine 08/18/15 06/03/23 Robert Garcia MD [address] [place] [address] Nephrology 01/02/17 Sugar Trucker Relationship Specialty Start Date End Date Monie Alston DO [address] [place] [address] PCP - General Family Medicine 06/04/23 Robert Garcia MD Nephrology 01/02/17 Sugar Trucker Relationship Specialty Start Date End Date Monie Alston DO [address] [place] [address] PCP - General Family Medicine 06/04/23 Robert Garcia MD Nephrology 01/02/17 Sugar Trucker Relationship Specialty Start Date End Date Monie Alston DO [address] [place] [address] PCP - General Family Medicine 06/04/23 Robert Garcia MD Nephrology 01/02/17 Sugar Trucker Relationship Specialty Start Date End Date Monie Alston DO [address] [facility] [place] [address] PCP - General Family Medicine 06/04/23 Robert Garcia MD Nephrology 01/02/17 Sugar Trucker Relationship Specialty Start Date End Date Monie Alston DO [address] [place] [address] PCP - General Family Medicine 06/04/23 Robert Garcia MD Nephrology 01/02/17 Team Status: Active Member Role Status Dates Dr. Monie Alston DO Primary Care Provider Active Team Status: Inactive Member Role Status Dates Dr. Monie Alston DO Primary Care Provider Active Start: August 30, 2024 End: August 30, 2024 Dr. Pablo Rogers MD Attending Provider Active S tart: August 30, 2024 End: August 30, 2024 Dr. Pablo Rogers MD Referring Provider Active S tart: August 30, 2024 End: August 30, 2024 Team Status: Inactive Member Role Status Dates Dr. Monie Alston DO Primary Care Provider Active Start: September 07, 2024 End: September 07, 2024 Dr. Monie Alston DO Referring Provider Active Start: September 07, 2024 End: September 07, 2024 Dr. Tevin Khan MD Attending Provider Active Start: September 07, 2024 End: September 07, 2024 Team Status: Inactive Member Role Status Dates Dr. Monie Alston DO Primary Care Provider Active Start: October 07, 2024 End: October 07, 2024 Dr. Tevin Khan MD Attending Provider Active Start: October 07, 2024 End: October 07, 2024 Dr. Tevin Khan MD Referring Provider Active Start: October 07, 2024 End: October 07, 2024 Team Status: Active Member Role Status Dates Dr. Monie Alston DO Primary Care Provider Active Start: October 07, 2024 Dr. Tevin Khan MD Attending Provider Active Start: October 07, 2024 Team Status: Inactive Member Role Status Dates Dr. Monie Alston DO Primary Care Provider Active Start: November 29, 2024 End: November 29, 2024 Dr. Pablo Rogers MD Attending Provider Active S tart: November 29, 2024 End: November 29, 2024 Team Status: Active Member Role Status Dates Dr. Monie Alston DO Primary Care Provider Active Start: December 07, 2024 Dr. Blaise Marinelli MD Emergency Provider Active Sta rt: December 07, 2024 Team Status: Inactive Member Role Status Dates Dr. Monie Alston DO Primary Care Provider Active Start: December 07, 2024 End: December 08, 2024 Dr. Blaise Marinelli MD Emergency Provider Active Sta rt: December 07, 2024 End: December 08, 2024 Sugar Trucker Relationship Specialty Start Date End Date Tom Conte MD [address] [place] [phone] PCP - General 07/08/18 Sugar Trucker Relationship Specialty Start Date End Date Tom Conte MD [address] [place] [phone] PCP - General 07/08/18 Sugar Trucker Relationship Specialty Start Date End Date Tom Conte MD [address] [place] [phone] PCP - General 07/08/18 Reason for Visit (unrecogniz ed section and content) Reason Comments Hospital F/U Patient was seen in [place] about 1 month ago for pneumonia. Has migraine after every treatment Reason Comments Results Reason Comments Results Cussed the results o f his CT scan and initial thoracentesis fluid analysis. He is feeling okay at this time but still has some chest pain that is starting to ease out on the right side. Specialty Diagnoses / Procedures Referred By Contac t Referred To Contact Diagnoses Recurrent right pleural effusion Recurrent right pleural effusion [J90] Procedures THORACENTESIS NEEDLE/CATH PLEURA W/IMAGING THORACENTESIS NEEDLE OR CATHETER ASPIRATION OF THE PLEURAL SPACE W IMAGING GUIDANCE [facility] [address] [place] [address] Referral ID Status Reason Start Date Expiration Date Visits Re quested Visits Authorized [id number] 1 1 Reason Comments Patient Update Reason Comments Spirometry Specialty Diagnoses / Procedures [facility] To Contact [facility] [place] Diagnoses Shortness of breath Procedures SPIROMETRY - BASELINE AND POST DILATOR BRNCDILAT RSPSE SPMTRY PRE&POST-BRNCDILAT ADMN Manjit Field MD [address] [place] [address] [place] [id number] Referral ID Status Reason Start Date Expiration Date V isits Requested Visits Authorized [id number] Closed Auto-Generate d Referral 03/18/2022 04/17/2023 1 1 Specialty Diagnoses / Procedures [facility] Referred To Contact [facility] [place] Diagnoses Shortness of breath Procedures LUNG DIFFUSION CAPACITY (DLCO) DIFFUSING CAPACITY Manjit Field MD [address] [place] [address] [address] Referral ID Status Reason Start Date Expiration Date V isits Requested Visits Authorized [id number] Closed Auto-Generate d Referral 03/18/2022 04/17/2023 1 1 Specialty Diagnoses / Procedures [facility] To [facility] [place] Diagnoses Shortness of breath Procedures LUNG VOLUMES Manjit Field MD [address] [place] [address] [address] Referral ID Status Reason Start Date Expiration Date V isits Requested Visits Authorized [id number] Closed Auto-Generate d Referral 03/18/2022 04/17/2023 1 1 Reason Onset Date Comments Returning Patient's Call 04/08/2022 Reason Comments Patient Question Reason Comments Effusion Reason Comments Drainage Pleurx catheter Reason Comments Medication Authorization lidocaine (LIDO DERM) Prior Authorization no longer needed (see notes) Reason Comments Patient Update ER [facility] Reason Comments Patient Question Patient Update Reason Comments Orders HFC order contact/ap pt Reason Onset Date Comments Transition Of Care 09/03/2022 TCM Initial A [facility] Discharge 09/02/22 Reason Comments Appointment Reason Comments Appointment [facility]FC missed appt gabrielle er Reason Comments Consult Cardiology Reason Comments dischare summary Reason Onset Date Comments Opened In Error 10/01/2022 Reason Comments Patient Update Medication Problem Reason Comments Appointment [facility] deferral Reason Comments Follow Up Reason Comments Follow Up Blood pressure Reason Comments ext document Cardio OV note Reason Comments Effusion Reason Comments Consult Reason Comments Patient Update Rescheduling surgery Reason Onset Date Comments post op concern 08/12/2023 Reason Comments Returning Patient's Call Reason Comments Post Op Reason Comments Low Back Pain Chronic, worse last few days Reason Comments Cough Cough sinus pressure x 3 days Reason Comments URI X3 days Reason Comments Sinus Problem Congestion, cough, l eft ear issues x 4 days Reason Comments Abdominal Pain Specialty Diagnoses / Procedures Referred By Contac t Referred To Contact Diagnoses Small bowel obstruction (Multi) S[place] [address] [facility] Department [place] [address] Phone: tel: fax: [facility] [address] [place] [address] Phone: tel: fax: Referral ID Status Reason Start Date Expiration Date Visits Re quested Visits Authorized [id number] 1 1 Goals (unrecognized section and content) Goals may be documented in a n alternate section Care Team (unrecognized sect ion and content) Care Team Personnel Name: TOM CONTE MD Member Role: Primary Care Physician Address: Address: [address] [place] [address] Care Team Related Persons Name: MERI BRAVO Address: Home [place], [place] Name: MARINA LUNDY Name: GILBERTO BENITO Address: [facility] Care Team Personnel Name: TOM CONTE MD Member Role: Primary Care Physician Address: Address: [address] [place] [address]- Name: JEFF SOUZA Position: ED Physician Member Role: Attending Physician Address: Address: [address] [place] [address]- Name: Joan Edwards RN Position: ED RN Member Role: ED RN Care Team Related Persons Name: JUAN DAVID BRAVOANTHA Address: [facility] Name: MARINA LUNDY Name: GILBERTO BENITO Address: Home [facility] Care Team Personnel Name: TOM CONTE MD Member Role: Primary Care Physician Address: Address: [address] [place] [address] [place] [address]- Name: RAMIRO MARTIN MD Position: ED Physician Member Role: ED Physician Address: Address: [facility] [address] [place] [address]- Care Team Related Persons Name: JUAN DAVID BRAVOANTHA Address: [facility] Name: MARINA LUNDY Name: GILBERTO BENITO Address: [facility] PRN Active and Recently Administ ered Medications (unrecognized section and content) Medication Order 04/02/2022 04/03/2022 04/04/2022 fentaNYL 50 mcg/mL injection (SUBLIMAZE) INTRAVENOUS, X (OR/PROCEDURE) PRN, Starting on Sweta 04/04/22 at 1411, Until Fri04/05/22 at 0303, Intraprocedure 1411 (Given - Provid er: Aleja Shankar RN) fentaNYL 50 mcg/mL injection (SUBLIMAZE) INTRAVENOUS, X (OR/PROCEDURE) PRN, Starting on Sweta 04/04/22 at 1422, Until Fri04/05/22 at 0303, Intraprocedure 1422 (Given - Provid er: Aleja Shankar, MADONNA) fentaNYL 50 mcg/mL injection (SUBLIMAZE) INTRAVENOUS, X (OR/PROCEDURE) PRN, Starting on Sweta 04/04/22 at 1425, Until Fri04/05/22 at 0303, Intraprocedure 1425 (Given - Provid er: Aleja Shankar, MADONNA) lidocaine (PF) 20 mg/mL (2 %) injection (XYLOCAINE) SUBCUTANEOUS, X (OR/PROCEDURE) PRN, Starting on Sweta 04/04/22 at 1414, Until Fri04/05/22 at 0303, Intraprocedure 1414 (Given - Provid er: Celso Reed MD, - Comment: lateral right) midazolam (PF) injection (VERSED) INTRAVENOUS, X (OR/PROCEDURE) PRN, Starting on Sweta 04/04/22 at 1412, Until Fri04/05/22 at 0303, Intraprocedure 1412 (Given - Provid er: Aleja Shankar RN) midazolam (PF) injection (VERSED) INTRAVENOUS, X (OR/PROCEDURE) PRN, Starting on Sweta 04/04/22 at 1422, Until Fri04/05/22 at 0303, Intraprocedure 1422 (Given - Provid er: Aleja Shankar RN) midazolam (PF) injection (VERSED) INTRAVENOUS, X (OR/PROCEDURE) PRN, Starting on Sweta 04/04/22 at 1426, Until Fri04/05/22 at 0303, Intraprocedure 1426 (Given - Provid er: Aleja Shankar RN) NaCl 0.9% iv infusion INTRAVENOUS, X (OR/PROCEDURE) CONTINUOUS, Starting on Sweta 04/04/22 at 1324, Until Fri04/05/22 at 0303, Intraprocedure 1324 (New Bag/Syring e/Bottle - Provider: Aleja Shankar RN) sodium chloride 0.9 % (flush) (BD POSIFLUSH) INTRAVENOUS, X (OR/PROCEDURE) PRN, Starting on Sweta 04/04/22 at 1324, Until Fri04/05/22 at 0303, Intraprocedure 1324 (Given - Provid er: Aleja Shankar RN) Scheduled Medication Order 12/06/2024 12/07/2024 12/08/2024 aspirin EC tablet 81 mg 81 mg, oral, Daily, First dose on Fri12/08/24 at 0910, Do not crush, chew, or split., If ordered PRN for pain, nurse is permitted to administer this medication for higher pain scores based on patient preference? Yes 943 (Not Given - Pr ovider: Karoline Leo RN - Reason: Patient/family refused - Comment: pt took his home dose without notifying RN until after) atorvastatin (Lipitor) tablet 40 mg 40 mg, oral, Nightly, First dose on Fri12/08/24 at 2100 2100 (Due) carvedilol (Coreg) tablet 3.125 mg 3.125 mg, oral, 2 times daily, First dose on Fri12/08/24 at 0910 0944 (Not Given - Pr ovider: Karoline Leo RN - Reason: Patient/family refused - Comment: pt took his home dose without notifying RN until after)2100 (Due) heparin (porcine) injection 5,000 Units 5,000 Units, subcutaneous, Every 8 hours scheduled, First dose on Fri12/08/24 at 0935 0941 (Given - Provid er: Karoline Leo RN)1400 (Due)2200 (Due) hydrALAZINE (Apresoline) tablet 50 mg 50 mg, oral, 3 times daily, First dose on Fri12/08/24 at 0910 0945 (Not Given - Pr ovider: Karoline Leo RN - Reason: Patient/family refused - Comment: pt took his home dose without notifying RN until after)1500 (Due)2100 (Due) HYDROmorphone (Dilaudid) injection 0.5 mg (COMPLETED) 0.5 mg, intravenous, Once, On Fri12/08/24 at 0550, For 1 dose 0606 (Given - Provid er: Napoleon Lopez RN) isosorbide mononitrate ER (Imdur) 24 hr tablet 60 mg 60 mg, oral, Daily, First dose on Fri12/08/24 at 1000, If scored, tablet may be split. Do not crush or chew. 45 (Not Given - Pr ovider: Karoline Leo RN - Reason: Patient/family refused - Comment: pt took his home dose without notifying RN until after) lactated Ringer's bolus 1,000 mL (COMPLETED) 1,000 mL, intravenous, at 999 mL/hr, Administer over 1 Hours, Once, On Fri12/08/24 at 0550, For 1 dose 0605 (New Bag - Prov ider: Napoleon Lopez RN)0713 (Stopped - Provider: Napoleon Lopez RN) polyethylene glycol (Glycolax, Miralax) packet 17 g 17 g, oral, Daily, First dose on Fri12/08/24 at 0900, Bowel Regimen - for prevention of constipation. 0941 (Given - Provid er: Karoline McNish, RN) sevelamer carbonate (Renvela) tablet 800 mg 800 mg, oral, 3 times daily (morning, midday, late afternoon), First dose on Fri12/08/24 at 0910, Do not crush, chew, or split. 0945 (Not Given - Pr ovider: Karoline Leo RN - Reason: Patient/family refused)1200 (Due)1700 (Due) sodium zirconium cyclosilicate (Lokelma) packet 10 g 10 g, oral, Every 8 hours, First dose on Fri12/08/24 at 0905, For 6 doses, Empty entire contents of packet(s) into 45 mL water. Stir well and administer immediately. If powder remains, rinse glass with water and administer. 0941 (Given - Provid er: Karoline Leo RN)1705 (Due) PRN Medication Order 12/06/2024 12/07/2024 12/08/2024 acetaminophen (Tylenol) tablet 650 mg 650 mg, oral, Every 4 hours PRN, pain mild (1-3), first line, Starting on Fri12/08/24 at 1027, Administer tablet or oral liquid per patient preference., If ordered PRN for pain, nurse is permitted to administer this medication for higher pain scores based on patient preference? Yes albuterol 2.5 mg /3 mL (0.083 %) nebulizer solution 2.5 mg 2.5 mg, nebulization, Every 4 hours PRN, shortness of breath, Starting on Fri12/08/24 at 0939 FOR RECORDS PERTAINING TO PATIENTS WHO ARE OR HAVE BEEN ENROLLED IN A CHEMICAL DEPENDENCY/SUBSTANCEABUSE PROGRAM, SOME INFORMATION MAY BE OMITTED. This clinical summary was aggregated from multiple sources. Caution should be exercised in using it in the provision of clinical care. This summary normalizes information from multiple sources, and as a consequence, information in this document may materially change the coding, format and clinical context of patient data. In addition, data may be omitted in some cases. CLINICAL DECISIONS SHOULD BE BASED ON THE PRIMARY CLINICAL RECORDS. [employer] provides no warranty or guarantee of the accuracy or completeness of information in this document.
--- NOTE | 2025-03-15 22:10 | EX.ED.DYSGE1 ---
HPI History of Present Illness Chief Complaint: Shortness of Breath [facility] Medical History Inferior vena caval stenosis Steel syndrome Anemia of chronic disease Chest pain History of implantable cardiac defibrillator (ICD) (02/03/15) Chronic systolic (congestive) heart failure Tobacco abuse disorder Systolic murmur Non-ischemic cardiomyopathy GERD (gastroesophageal reflux disease) Anxiety and depression Essential hypertension Problem with dialysis access Non-compliance with renal dialysis Non compliance with medical treatment Non compliance w medication regimen Hyperkalemia COPD (chronic obstructive pulmonary disease) Hyperphosphatemia Anemia due to chronic renal failure treated with erythropoietin, stage 5 ESRD (end stage renal disease) on dialysis Renal transplant failure and rejection Home Medications ?Medication ?Instructions ?Recorded ?Last Taken ?Type acetaminophen 325 mg tablet 650 mg PO Q4H PRN Pain 07/07/19 Unknown History sevelamer carbonate 800 mg tablet 800 mg PO TID KIDNEY DISEASE 08/21/21 Unknown History aspirin 81 mg tablet,delayed 81 mg PO DAILY 02/04/24 Unknown History release (Adult Low Dose Aspirin) Held on 03/15/25. Instructions: PACEMAKER BATTERY CHANGE atorvastatin 40 mg tablet (Lipitor) 40 mg PO DAILY 02/04/24 Unknown History albuterol sulfate 90 mcg/actuation 2 puff inhalation Q4H PRN PRN 12/08/24 Unknown History aerosol inhaler wheezing carvedilol 3.125 mg tablet 3.125 mg PO BID 12/08/24 Unknown History isosorbide mononitrate 30 mg 30 mg PO BID 12/08/24 Unknown History tablet,extended release 24 hr nicotine 21 mg/24 hr daily 1 patch topical DAILY 12/08/24 Unknown History transdermal patch buspirone 5 mg tablet 5 mg PO TID 03/15/25 Unknown History hydralazine 25 mg tablet 25 mg PO TID 03/15/25 Unknown History ondansetron HCl 4 mg tablet 4 mg PO Q8H PRN PRN nausea and 03/15/25 Unknown History vomiting Allergy/AdvReac Type Severity Reaction Status Date / Time Iodinated Contrast Media Allergy Fever and Verified 03/15/25 21:22 (CONTRASTS) skin rash Penicillins Allergy Anaphylaxis Verified 03/15/25 21:22 cyclobenzaprine (From AdvReac dizzy, Verified 03/15/25 21:22 Flexeril) faints tramadol (From Ultram) AdvReac Rash Verified 03/15/25 21:22 Family History Father Diabetes Heart disease Hypertension Presence of implantable cardioverter-defibrillator (ICD) Brother Heart disease Hypertension Diabetes Presence of implantable cardioverter-defibrillator (ICD) LVAD (left ventricular assist device) present Surgical History Hx of cardiac catheterization (~09/26/22) S/P internal cardiac defibrillator procedure Presence of surgically created primary arteriovenous shunt for hemodialysis Hx of cholecystectomy Hx of kidney transplant Hx of partial thyroidectomy (12/07/99) Social History Smoking Status: Light Smoker (<10/day) second hand exposure: Yes quit status: considering quitting alcohol intake: never substance use type: does not use caffeine: Yes Type: carbonated beverages Number of servings: 3 what type of physical activity do you participate in: walking frequency: daily seatbelt use: always EXAM Physical Exam Const Vital Signs: 03/15/25 21:21 03/15/25 23:00 Temperature 97.5 F L Temperature Source Oral Pulse Rate 95 83 Respiratory Rate 18 19 H Blood Pressure 165/97 H 150/92 H Blood Pressure Mean 119 111 Pulse Ox 97 99 Oxygen Delivery Method Room Air Room Air MDM MDM MDM Narrative Medical decision making narrative: HISTORY OF PRESENT ILLNESS: Chief complaint: Shortness of breath 49-year-old male presents with concern for shortness of breath. Has a past medical history significant for CAD, hyperlipidemia, tobacco use disorder, nonischemic cardiomyopathy status post ICD, hypertension, ESRD s/p renal transplant failure rejection, anemia of chronic disease presents with 1 week of shortness of breath. Notes compliance to dialysis. States he gets dialysis daily through a right upper extremity fistula. States he had a complete treatment today. Denies leg swelling. Does know intermittent fevers and a cough that is nonproductive. No sick contacts. Is concerned he may have pneumonia. He denies chest pain. The patient denies recent surgery in the last 4 weeks or immobilization in the last 3 days, denies previous diagnosis of DVT or PE, hemoptysis, unilateral leg swelling or malignancy with treatment the last 6 months or palliative. No estrogen use noted. REVIEW OF SYSTEMS: Pertinent positives: Shortness of breath Pertinent negatives: As per HPI PHYSICAL EXAM: Nursing triage notes reviewed, Vital signs reviewed Constitutional: please see [facility] HENT: MMM Eyes: Pupils equal round and reactive to light, Extraocular muscles intact Neck: No stridor, no JVD, full neck ROM Lungs: Clear to auscultation, No wheezing or rales. No increased work of breathing, no conversational dyspnea, no accessory muscle use, no nasal flaring. No respiratory distress noted Heart: Regular rate and rhythm, No murmurs, No rubs and No gallops, 2+ distal pulses (radial, femoral, posterior tibial) in all extremities Abdomen: Soft, there is no tenderness, rigidity, rebound or guarding, no obvious peritoneal signs, no palpable pulsatile abdominal masses, no auscultated abdominal bruit : No CVAT Extremities: No edema, right upper extremity fistula with palpable thrill, no bleeding or signs of infection noted. Neuro: No new focal neurological deficits, cranial nerves II through XII intact, 5/5 strength in all present extremities. Intact sensation to light touch in all present extremities, 2+ reflexes bilateral patella tendons. Skin: No rash or lesions noted MEDICAL DECISION MAKING: Chief Complaint: please see [facility] External records reviewed: Reviewed prior hospitalizations and ED notes Factors affecting care: As per [facility] Social determinants of health: History of tobacco use History obtained from others: Family Consults: none [facility] Narrative: Patient was initially hemodynamically stable, afebrile and nontoxic-appearing. Exam with d focal consolidative auscultative process on the right. I considered the following differential diagnosis: CHF exacerbation, ESRD, bacterial pneumonia, viral illness, anemia, electro disturbance, arrhythmia, ACS While I considered ACS patient was not experiencing chest pain which makes this less likely. While I considered pulmonary embolism the patient had a low risk Wells score and as such have a low suspicion for pulmonary embolism I obtained a broad lab and imaging evaluation to further determine if the patient was suffering from a life-threatening etiology. ALL IMAGES (IF OBTAINED) HAVE BEEN PERSONALLY REVIEWED AND INTERPRETED BY MYSELF. EKG with normal sinus rhythm rate of 82, left axis deviation, prolonged QTc interval at 511, no obvious STEMI, no sign of significant electrolyte abnormality Chest x-ray was read and reviewed personally by myself shows evidence of a right lower lobe infiltrate consistent with likely pneumonia. Radiologist noted [close CBC with no leukocytosis to suggest systemic inflammation or sepsis, noted chronic anemia likely secondary to chronic disease, no thrombocytopenia BMP consistent with end-stage renal disease otherwise no significant Margo abnormalities or signs of metabolic acidosis. Patient does have a elevated anion gap consistent with likely uremia COVID/RSV/flu negative Upon reassessment the patient was ambulated with a pulse ox without showing signs of significant hypoxia. He is likely suffering from bacterial pneumonia. Will give oral antibiotics. While I considered hospitalization the patient did not have any significant vital sign abnormalities or hypoxia to warrant hospitalization at this time. He is appropriate for initial treatment with oral antibiotics with strict return precautions and close follow-up instructions with primary care physician. The patient and/or family, caregivers express understanding. The patient and/or family, caregivers agrees with the plan. Shared decision making: I will have a discussion with the patient and or visitors regarding risk/benefits of further testing or admission. They will be made aware of of the risk/benefits inherent in this decision they will be given the opportunity to voice understanding. Total critical care time today provided was at least 0 minutes. This excludes separately billable procedures. Critical care time (if documented) is secondary to the patient having high probability of clinically significant/life threatening deterioration in the patient's condition which required my urgent intervention. Impression: 1. Dyspnea 2. History of end-stage renal disease 3. Community-acquired pneumonia Dispo: Discharge This note was generated with [employer] dictation software. It may contain incorrect words, spelling, and punctuation that were not noted in review of the chart prior to signing. Lab Data Labs: Laboratory Results - last 24 hr 03/15/25 22:06 WBC 4.4 RBC 2.87 L Hgb 8.0 L Hct 25.2 L MCV 87.8 MCH 27.9 MCHC 31.7 L RDW Std Deviation 52.2 H RDW Coeff of Good 16.5 H Plt Count 197 MPV 9.9 Immature Gran % (Auto) 0.500 Neut % (Auto) 70.2 H Lymph % (Auto) 17.8 L [place] % (Auto) 8.1 Eos % (Auto) 2.5 Baso % (Auto) 0.9 Absolute Neuts (auto) 3.1 Absolute Lymphs (auto) 0.79 L Nucleated RBC % 0 Sodium 140 Potassium 4.9 Chloride 97 L Carbon Dioxide 24.4 Anion Gap 19 H BUN 67 H Creatinine 14.60 H* Estim Creat Clear Calc 6.18 L* Est GFR (MDRD) Non-Af 4 L BUN/Creatinine Ratio 4.6 L Glucose 105 H Calcium 8.0 Radiography Diagnostic Testing: Clinical Impression(s) from Imaging Studies Chest X-Ray 03/15/25 22:50 IMPRESSION: Cardiomegaly, with small right basilar pleural effusion. Bilateral perihilar airspace opacities likely represent pulmonary edema, with coexisting consolidation not excluded. Reading Location: [facility] Discharge Plan Triage Chief Complaint: Shortness of Breath ED Provider: Prabhjot Andres Dx/Rx/DC Orders Prescriptions: No Action acetaminophen 325 mg tablet 650 mg PO Q4H PRN (Reason: Pain) sevelamer carbonate 800 mg tablet 800 mg PO TID Rx Instructions: must administer with a meal/food atorvastatin [Lipitor] 40 mg tablet 40 mg PO DAILY aspirin [Adult Low Dose Aspirin] 81 mg tablet,delayed release (DR/EC) 81 mg PO DAILY isosorbide mononitrate 30 mg tablet extended release 24 hr 30 mg PO BID carvedilol 3.125 mg tablet 3.125 mg PO BID nicotine 21 mg/24 hr patch 24 hour 1 patch topical DAILY albuterol sulfate 90 mcg/actuation HFA aerosol inhaler 2 puff inhalation Q4H PRN PRN (Reason: wheezing) buspirone 5 mg tablet 5 mg PO TID hydralazine 25 mg tablet 25 mg PO TID ondansetron HCl 4 mg tablet 4 mg PO Q8H PRN PRN (Reason: nausea and vomiting) Primary Care Provider: Truman Alston Referrals: Truman Alston DO [Primary Care Provider, Medical] Print Language: Occitan
--- NOTE | 2025-03-15 22:34 | EKG12_ITS ---
Test Reason : SOB Blood Pressure : */* mmHG Vent. Rate : 82 BPM Atrial Rate : 82 BPM P-R Int : 160 ms QRS Dur : 98 ms QT Int : 438 ms P-R-T Axes : 42 -49 99 degrees QTcB Int : 511 ms Normal sinus rhythm Possible Left atrial enlargement Left anterior fascicular block Minimal voltage criteria for LVH, may be normal variant ( [place] product ) Nonspecific T wave abnormality Prolonged QT Abnormal ECG Confirmed by Tito Almonte ([id number]), manager editorial DEJAH LEA ([id number]) on 03/17/2025 6:00:00 AM Referred By: MEENA Confirmed By: Tito Almonte
--- NOTE | 2025-03-15 22:50 | RAD_ITS ---
PROCEDURE: CHEST PA AND LATERAL 03/15/2025 REASON FOR EXAM: COUGH, SHORTNESS OF BREATH TECHNIQUE: Procedure Code: RADCXR Modality: DX Procedure: CHEST PA AND LATERAL COMPARISON: 07/30/2022 FINDINGS: Devices: Left chest wall dual lead ICD in stable positioning. Lungs/Pleura: Small right basilar pleural effusion likely with adjacent atelectasis. No sizable pleural effusion on the left. Probable mild bilateral perihilar edema, coexisting consolidation not excluded. Heart/Mediastinum: Cardiomegaly. Aortic arch calcification. Bones/Soft tissues: No significant abnormality. RAD/Chest PA and Lateral IMPRESSION: Cardiomegaly, with small right basilar pleural effusion. Bilateral perihilar a irspace opacities likely represent pulmonary edema, with coexisting consolidation not excluded. Reading Location: [id number]
[2025-03-15 22:56] LABS: Hematocrit 25.2 % (40-54); Hemoglobin 8.0 g/dL (13.0-16.5); Immature Granulocytes Count 0.020 X10^3/uL (0.0-0.0); Mean Corp Hgb Conc 31.7 g/dL (32-36); Mean Corpuscular Volume 87.8 fL (80-94); Mean Platelet Vol. 9.9 fl (6.2-12.0); NRBC Flagged by Analyzer 0 % (0-5); Platelet Count 197 K/mm3 (150-450); RBC Distribution Width CV 16.5 % (11.6-14.6); RBC Distribution Width SD 52.2 fl (35.1-43.9); Red Blood Count 2.87 M/mm3 (4.6-6.2); White Blood Count 4.4 K/mm3 (4.4-11.0)
[2025-03-15 23:00] VITALS: BP 150/92; PULSE 83; RESP 19; O2SAT 99
[2025-03-15 23:14] LABS: Anion Gap 19 (5-15); BUN 67 mg/dL (4-19); BUN/Creat Ratio 4.6 RATIO (10-20); Calcium,Total 8.0 mg/dL (7.6-11.0); Carbon Dioxide 24.4 mmol/L (21.0-32.0); Chloride 97 mmol/L (98-108); Estimated Creatinine Clearance 6.18 ml/min (50-250); Glucose 105 mg/dL (70-99); Potassium 4.9 mmol/L (3.3-5.1)
[2025-03-15 23:33] VITALS: O2SAT 100
[2025-03-16 00:34] VITALS: BP 146/89; PULSE 82; RESP 14; TEMP 36.6; O2SAT 100
== END 2025-03-16 00:40 | disposition home or self-care (01) ==
PROVIDERS: Emergency Provider Emergency Medicine; Visit Provider Emergency Medicine
DX: R06.00 Dyspnea, unspecified (principal); I13.2 Hypertensive heart and chronic kidney disease with heart failure and with stage 5 chronic kidney disease, or end stage renal disease; N18.6 End stage renal disease; I50.22 Chronic systolic (congestive) heart failure; J44.9 Chronic obstructive pulmonary disease, unspecified; J18.9 Pneumonia, unspecified organism; D63.8 Anemia in other chronic diseases classified elsewhere; Z99.2 Dependence on renal dialysis; E78.5 Hyperlipidemia, unspecified; I25.10 Atherosclerotic heart disease of native coronary artery without angina pectoris; F17.200 Nicotine dependence, unspecified, uncomplicated; K21.9 Gastro-esophageal reflux disease without esophagitis; Z79.899 Other long term (current) drug therapy
CPT/HCPCS: 71046; 80048; 85025; 87631; 93005; 99283; A4216

== ENCOUNTER 2025-05-06 19:50 | Emergency (ER) | payer MEDICARE, MEDICAID, SELFPAY ==
[2025-05-06 19:50] VITALS: BP 153/96; PULSE 98; RESP 20; TEMP 36.4; O2SAT 99; BMI 22.0
--- NOTE | 2025-05-06 20:29 | ED.RN ---
PT. APPROACHED NURSES STATION AND SAID "HE IS HAVING WORSE BACK PAIN DOWN TO HIS LEFT LEG". PT. APPEARS GROANING IN TRIAGE, SEATED IN CHAIR, INT. CONVERSING WITH FAMILY (MOTHER IN LAW, , AND SON).
--- NOTE | 2025-05-06 21:00 | EKG12_ITS ---
Test Reason : DYSRHYTHMIA Blood Pressure : */* mmHG Vent. Rate : 95 BPM Atrial Rate : 95 BPM P-R Int : 166 ms QRS Dur : 104 ms QT Int : 396 ms P-R-T Axes : 41 -54 96 degrees QTcB Int : 497 ms Normal sinus rhythm Possible Left atrial enlargement Left anterior fascicular block Left ventricular hypertrophy with repolarization abnormality ( R in aVL , Sokolow-Lobo , [place] product , Romhilt-Horowitz ) QTcB >= 480 msec Abnormal ECG Confirmed by JOY MCCALL, SKY ([id number]), commercial production editor MARA ELIAS ([id number]) on 05/09/2025 8:20:00 AM Referred By: Confirmed By: SKY HAMILTON MD
--- NOTE | 2025-05-06 21:00 | EX.ED.DYSGE1 ---
HPI History of Present Illness Chief Complaint: General Illness Narrative Narrative: 49-year-old male past medical history of end-stage renal disease, does hemodialysis at home, presents with generalized weakness, malaise and fatigue, stating that he does not feel well. He relates history that he went to urgent care few days ago and he was told that he has pneumonia because he was having cough and mild shortness of breath. He states that he has hemodialysis at home for a few hours, approximately 3-1/2 every morning. Today, he did his dialysis and this morning he started feeling generally weak and tired. He states he does not feel quite right. [facility] Medical History Inferior vena caval stenosis Steel syndrome Anemia of chronic disease Chest pain History of implantable cardiac defibrillator (ICD) (02/03/15) Chronic systolic (congestive) heart failure Tobacco abuse disorder Systolic murmur Non-ischemic cardiomyopathy GERD (gastroesophageal reflux disease) Anxiety and depression Essential hypertension Problem with dialysis access Non-compliance with renal dialysis Non compliance with medical treatment Non compliance w medication regimen Hyperkalemia COPD (chronic obstructive pulmonary disease) Hyperphosphatemia Anemia due to chronic renal failure treated with erythropoietin, stage 5 ESRD (end stage renal disease) on dialysis Renal transplant failure and rejection Home Medications Medication Instructions Recorded Last Taken Type acetaminophen 325 mg tablet 650 mg PO Q4H PRN Pain 07/07/19 Unknown History sevelamer carbonate 800 mg tablet 800 mg PO TID KIDNEY DISEASE 08/21/21 Unknown History aspirin 81 mg tablet,delayed 81 mg PO DAILY 02/04/24 Unknown History release (Adult Low Dose Aspirin) Held on 03/15/25. Instructions: PACEMAKER BATTERY CHANGE atorvastatin 40 mg tablet (Lipitor) 40 mg PO DAILY 02/04/24 Unknown History albuterol sulfate 90 mcg/actuation 2 puff inhalation Q4H PRN PRN 12/08/24 Unknown History aerosol inhaler wheezing carvedilol 3.125 mg tablet 3.125 mg PO BID 12/08/24 Unknown History isosorbide mononitrate 30 mg 30 mg PO BID 12/08/24 Unknown History tablet,extended release 24 hr nicotine 21 mg/24 hr daily 1 patch topical DAILY 12/08/24 Unknown History transdermal patch buspirone 5 mg tablet 5 mg PO TID 03/15/25 Unknown History hydralazine 25 mg tablet 25 mg PO TID 03/15/25 Unknown History ondansetron HCl 4 mg tablet 4 mg PO Q8H PRN PRN nausea and 03/15/25 Unknown History vomiting doxycycline hyclate 100 mg tablet 100 mg PO BID 10 days #20 tabs 03/16/25 Unknown Rx benzonatate 200 mg capsule 200 mg PO TID PRN cough #20 caps 04/11/25 Unknown Rx methylprednisolone 4 mg tablets in See Rx Instructions PO PER PKG DIR 04/11/25 Unknown Rx a dose pack (Medrol (Syed)) #21 tabs Allergy/AdvReac Type Severity Reaction Status Date / Time Iodinated Contrast Media Allergy Fever and Verified 05/06/25 19:53 (CONTRASTS) skin rash Penicillins Allergy Anaphylaxis Verified 05/06/25 19:53 cyclobenzaprine (From AdvReac dizzy, Verified 05/06/25 19:53 Flexeril) faints tramadol (From Ultram) AdvReac Rash Verified 05/06/25 19:53 Family History Father Diabetes Heart disease Hypertension Presence of implantable cardioverter-defibrillator (ICD) Brother Heart disease Hypertension Diabetes Presence of implantable cardioverter-defibrillator (ICD) LVAD (left ventricular assist device) present Surgical History Hx of cardiac catheterization (~09/26/22) S/P internal cardiac defibrillator procedure Presence of surgically created primary arteriovenous shunt for hemodialysis Hx of cholecystectomy Hx of kidney transplant Hx of partial thyroidectomy (12/07/99) Social History Smoking Status: Light Smoker (<10/day) second hand exposure: Yes quit status: considering quitting alcohol intake: never substance use type: does not use caffeine: Yes Type: carbonated beverages Number of servings: 3 what type of physical activity do you participate in: walking frequency: daily seatbelt use: always EXAM Physical Exam Const Vital Signs: 05/06/25 19:50 05/06/25 21:35 05/06/25 22:00 Temperature 97.6 F L Temperature Source Temporal Pulse Rate 98 96 Respiratory Rate 20 H 24 H Respiratory Pattern Normal Blood Pressure 153/96 H Blood Pressure Mean 115 Pulse Ox 99 98 Oxygen Delivery Method Room Air Room Air MDM MDM MDM Narrative Medical decision making narrative: Differential diagnosis includes but not limited to hypokalemia versus other electrolyte imbalance given his history of end-stage renal disease. Patient does not make any urine. He may have a pneumonia as well. I reviewed his laboratory work and he has a white count that is normal at 4.7 with hemoglobin stable at 9.4, platelet count normal at 185. Sodium normal 136 with potassium 4.6, chloride slightly low at 94 which I think is nonspecific, BUN is elevated 54 with creatinine 8.73 consistent with his end-stage renal disease. However his creatinine is improved over previous. Calcium is normal at 9.3. LFTs are grossly normal. EKG was obtained and interpreted by myself independently as normal sinus rhythm at 95 bpm without ectopy or acute ST changes. No STEMI. Chest x-ray interpreted by myself independently shows small bilateral pleural effusions. He has either atelectasis or possibly a pneumonia on the right versus fluid/pulmonary congestion. He states he is already on a Z-Syed. He states he has been taking Tylenol and liquid Tylenol for his back pain. He was given 1 [place] tablet here. At this point in time, I do not feel that he requires observation or admission or transfer. He feels well enough to go home. His family is at the bedside and are willing to take him home. He will follow-up with his primary care provider on Friday. He is comfortable with discharge, and will finish his Z-Syed. Return instructions to the emergency department were reviewed. Disposition is discharged home in stable condition. History & Record Review Discussion w/independent historian: Patient Additional record(s) reviewed:: Prior labs Lab Data Attestation: I reviewed the patient's lab results. Labs: Laboratory Results - last 24 hr 05/06/25 19:25 WBC 4.7 RBC 3.53 L Hgb 9.4 L Hct 29.6 L MCV 83.9 MCH 26.6 L MCHC 31.8 L RDW Std Deviation 50.8 H RDW Coeff of Good 16.7 H Plt Count 185 MPV 9.6 Immature Gran % (Auto) 0.400 Neut % (Auto) 64.8 Lymph % (Auto) 18.4 L Miner % (Auto) 10.0 Eos % (Auto) 5.1 H Baso % (Auto) 1.3 H Absolute Neuts (auto) 3.1 Absolute Lymphs (auto) 0.87 Nucleated RBC % 0 Sodium 136 Potassium 4.6 Chloride 94 L Carbon Dioxide 28.8 Anion Gap 13 BUN 54 H Creatinine 8.73 H* Estim Creat Clear Calc 10.15 L Est GFR (MDRD) Non-Af 7 L BUN/Creatinine Ratio 6.2 L Glucose 89 Calcium 9.3 Total Bilirubin 0.50 AST 21 ALT 15 Alkaline Phosphatase 80 Total Protein 6.9 Albumin 3.9 Globulin 2.9 Albumin/Globulin Ratio 1.3 Radiography Diagnostic Testing: Clinical Impression(s) from Imaging Studies Chest X-Ray 05/06/25 21:34 IMPRESSION: 1. Cardiomegaly with pulmonary congestion and edema. Superimposed pneumonia cannot be excluded. 2. Right bilateral pleural effusions. Reading Location: [facility] Discharge Plan Triage Chief Complaint: General Illness ED Provider: Tulio Chung Dx/Rx/DC Orders Clinical Impression: Malaise and fatigue, End stage renal disease, Back pain Instructions: ED Back Pain (Acute or Chronic), ED Weakness Uncertain Cause Prescriptions: No Action acetaminophen 325 mg tablet 650 mg PO Q4H PRN (Reason: Pain) sevelamer carbonate 800 mg tablet 800 mg PO TID Rx Instructions: must administer with a meal/food atorvastatin [Lipitor] 40 mg tablet 40 mg PO DAILY aspirin [Adult Low Dose Aspirin] 81 mg tablet,delayed release (DR/EC) 81 mg PO DAILY benzonatate 200 mg capsule 200 mg PO TID PRN (Reason: cough) Qty: 20 0RF methylprednisolone [Medrol (Syed)] 4 mg tablets,dose pack See Rx Instructions PO PER PKG DIR Qty: 21 0RF Rx Instructions: PO PER PKG DIR isosorbide mononitrate 30 mg tablet extended release 24 hr 30 mg PO BID carvedilol 3.125 mg tablet 3.125 mg PO BID nicotine 21 mg/24 hr patch 24 hour 1 patch topical DAILY albuterol sulfate 90 mcg/actuation HFA aerosol inhaler 2 puff inhalation Q4H PRN PRN (Reason: wheezing) buspirone 5 mg tablet 5 mg PO TID hydralazine 25 mg tablet 25 mg PO TID ondansetron HCl 4 mg tablet 4 mg PO Q8H PRN PRN (Reason: nausea and vomiting) doxycycline hyclate 100 mg tablet 100 mg PO BID 10 Days Qty: 20 0RF Primary Care Provider: Truman Alston Referrals: Truman Alston DO [Primary Care Provider, Medical] - 3-5 Days Activity Restrictions/Additional Instructions: Finish the rest of your Z-Syed. Return with fever, increased difficulty breathing, new or worsening symptoms. Print Language: Tunisian Disposition Disposition: Home, Self Care
--- OUTSIDE RECORDS SUMMARY | 2025-05-06 21:18 | XMS RPT_ITS | CCD ---
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 Gerardo Bradford Admit Provider Sanchez, Dr. Carrillo Attending Provider Sanchez, Dr. Carrillo Other Provider Tom Conte MD Primary Care Provider Latha MCCALL, Dayanand Unavailable [phone] Latha MCCALL, Dayanand Unavailable Tom Conte MD Primary Care Provider Tom Conte MD Primary Care Provider Latha MCCALL, Dayanand Unavailable Dr. Tom Conte Primary Care Provider Dr. Tom Conte Referring Provider Dr. Tevin Khan Attending Provider AJ HUERTA Attending Unavailable TOM CONTE Primary Care Unavailable TOM CONTE Referring Unavailable FERNANDO FITZPATRICK Admitting Unavailable FERNANDO FITZPATRICK Attending Unavailable TOM CONTE Primary Care Unavailable TOM CONTE A Primary Care Unavailable GHANDOUR, ABED AL HAMID Admitting Unavaila ble GHANDOUR, ABED AL HAMID Attending Unavaila ble CATKA, DANIA Consulting Unavailable CHAYA LEO Referring Unavailable TOM CONTE Primary Care Unavailable FERNANDO REDDY Attending Unavailable RHIANNA WILKINS Admitting Unavailable THOR OLIVO Admitting Unavailable MANJIT IFELD Referring Unavailable THOR OLIVO Attending Unavailable TOM CONTE Primary Care Unavailable TOM CONTE Primary Care Unavailable OLGA LIDIA SHERIDAN Admitting Unavailable OLGA LIDIA SHERIDAN Attending Unavailable CELSO REED Admitting Unavailab CELSO Mir Attending Unavailab le TOM CONTE A Primary Care Unavailable TOM CONTE A Primary Care Unavailable GHANDOUR, ABED AL HAMID Admitting Unavaila ble GHANDOUR, ABED AL HAMID Attending Unavaila ble MOHAMED, MANJIT Referring Unavailable INÉS, TOM A Primary Care Unavailable GLORIA MALIK MD Admitting Unava suresh MALIK, GLORIA MCCALL Attending Unava GLORIA Jimenez MD Primary Care Unava ilable TOM CONTE MD Consulting Unavailable PROVIDER, UNKNOWN Consulting Unavailable JERRELL FERNANDO Admitting Unavailable FERNANDO ALLAN Attending Unavailable FERNANDO ALLAN Primary Care Unavailable TOM CONTE MD Consulting Unavailable PROVIDER, UNKNOWN Consulting Unavailable JULIAN MCLEAN Admitting Unavailable JULIAN MCLEAN Attending Unavailable JULIAN MCLEAN Primary Care Unavailable TOM CONTE MD Consulting Unavailable TOM CONTE MD Referring Unavailable PROVIDER, UNKNOWN Consulting Unavailable CHRISTOPHER BAEZA DO Admitting Unavailable CHRISTOPHER BAEZA DO Attending Unavailable CHRISTOPHER BAEZA DO Primary Care Unavailable TOM CONTE MD Consulting Unavailable TOM CONTE MD Referring Unavailable PROVIDER, UNKNOWN Consulting Unavailable SONUSERENA Admitting Unavailable SONUSERENA GOODE Attending Unavailable SONUSERENA GOODE Primary Care Unavailable TOM CONTE MD Consulting Unavailable PROVIDER, UNKNOWN Consulting Unavailable SONU SERENA E Admitting Unavailable SONUSERENA Attending Unavailable SONUSERENA Primary Care Unavailable TOM CONTE MD Consulting Unavailable TOM CONTE MD Referring Unavailable PROVIDER, UNKNOWN Consulting Unavailable RAPHAEL SHORT Admitting Unavailable RAPHAEL SHORT Attending Unavailable RAPHAEL SHORT Primary Care Unavailable TOM CONTE MD Consulting Unavailable PROVIDER, UNKNOWN Consulting Unavailable Dr. Tom Conte Primary Care Provider Dr. Tom Conte Referring Provider [phone] Dr. Tevin Khan Attending Provider [phone] Janie Mcclure Attending Provider Unavailable Dr. Pablo Rogers Attending Provider MONIE ALSTON DO Attending Unavailable MONIE ALSTON DO Primary Care Unavailable RAHEEM MCCALL, DR ERNST Rivera Attending Unavailshreyas CONTE MD, TOM Vega Primary Care Unavailable CAROLE LEDBETTER DO Attending Unavailable INÉS MCCALL, TOM Vega Primary Care Unavailable DR HARVEY HARVEY MD Attending Unavailable INÉS MCCALL, TMO Vega Primary Care Unavailable ELISEO STORY MD Attending Unavailable INÉS MCCALL, TOM Vega Primary Care Unavailable VINCENZO BARBER MD Attending Unavailable INÉS MCCALL, TOM Vega Primary Care Unavailable INÉS MCCALL, TOM Vega Primary Care Unavailable DR ALIZA BLUNT MD Attending Unavailable GERALDINE AVILA DO Admitting Unavailable INÉS MCCALL, TOM Vega Primary Care Unavailable ANNETTE MCCALL, AJ Reese Consulting Unavailable JUAN FRANCISCO MCCALL, HUGO Stanley Attending Unavailshreyas GARCIA MD, ROBERT Consulting Unavailable YOLANDA MCCALL, [...] JEFF SOUZA DO Attending Unavailable Latha MCCALL, Robert Unavailable Monie Alston DO Primary Care Provider [...] Unavailable Dr. Blaise Marinelli MD Emergency Provider [phone] Tom Conte MD Primary Care Provider Dejah Torres Unavailable Unavailable ALSTON DO, MONIE E Primary Care Unavailable ROBERT GARCIA MD Attending Unavailable ALSTON DO, MONIE E Primary Care Unavailable ALSTON DO, MONIE E Attending Unavailable ALSTON DO, MONIE E Primary Care Unavailable ALSTON DO, MONIE E Attending Unavailable BOGDAN PONCE MD Consulting Unavailable KRIS MCCALL, DR ALBA Attending Unavailabl e ALSTON DO, MONIE E Primary Care Unavailable ALSTON DO, MONIE E Primary Care Unavailable TOSHIAUJASilvia DOHÉCTOR Attending Unavailable YARA GUERRERO MD Consulting U navailable ALSTON DO, MONIE E Primary Care Unavailable LOLA DOODILIA Attending Unavailable ALSTON DO, MONIE E Primary Care Unavailable SILVIA PAVON MD Attending Unavailable Gamaliel MANZANO, Dr. Laughlin Primary Care Physician Ken MCCALL, Dr. Shah Attending Physician [phone] Ken MCCALL, Dr. Shah Referring Provider [phone] Yves MCCALL, Dr. Welsh Attending Physician Dr. Blaise Marinelli MD Emergency Department Physician Dr. Prabhjot Andres DO Attending Physician Dr. Prabhjot Andres DO Emergency Department Physi corrie SISSY GOLDEN Referring Unavailable TOM CONTE Primary Care Unavailabl e Alston, Monie Primary Care Unavailable Alston, Monie Referring Unavailable Bill, Tevin Attending Unavailable Alston, Monie Referring Unavailable Alston, Monie Primary Care Unavailable Bill, Tevin Attending Unavailable Alston, Monie Primary Care Unavailable Bill, Tevin Attending Unavailable Ken, Pablo Referring Unavailable Alston, Monie Primary Care Unavailable Ken, [place] Attending Unavailable Alston, Monie Referring Unavailable Alston, Monie Primary Care Unavailable Jeyson Kwon Attending Unavailable Ken, [place] Attending Unavailable Ken, [place] Referring Unavailable Alston, Monie Primary Care Unavailable Alston, Monie Primary Care Unavailable Ken, [place] Attending Unavailable Ken, Pablo Referring Unavailable Alston, Monie Primary Care Unavailable Bill, Tevin Attending Unavailable Bill, Tevin Referring Unavailable Alston, Monie Primary Care Unavailable Prabhjot Andres Attending Unavailable Alston, Monie Primary Care Unavailable Marinelli, Blaise Attending Unavailable YARA GUERRERO MD Admitting U navailable YOLANDA MCCALL, YARA Consulting U navailable ALSTON DO, MONIE E Primary Care Unavailable CHRISTINA MCCALL, KAYLAH Attending Unavailable ROMAN MCCALL, CHAYA Ny Consulting Unavailable DESI MCCALL, SILVER Vega Consulting Unavaila lisa KOTHARI MD, JALEN Vega Consulting Unavailable LEIGHA BOWEN MD Consulting Un available CHANDANA NEWMAN MD Attending Unavailable ALSTON DO, MONIE E Primary Care Unavailable BOGDAN PONCE MD Admitting Unavailable NORMA MARIE MD, DR NICHOLAS GAFFNEY Consulting Unavaila lisa OWENS MD, CHAYA Ny Consulting Unavailable VIOLET MCCALL, KD Consulting Unavailable VIOLET MCCALL, KD Attending Unavailable CARMEN HOUSE DO Consulting Unavailable KALYANI TYPE CUTTER-GAS MAKER, UAN T Referring Unavail able ALSTON DO, MONIE E Primary Care Unavailable CARL GRAVES PA-C Attending Unavailable ALSTON DO, MONIE E Primary Care Unavailable ALSTON DO, MONIE E Primary Care Unavailable KATYA TYPE CUTTER-GAS MAKER, ABELEDA Attending Unavailab VERITO Leggett MD Attending Unavailable ALSTON DO, MONIE E Primary Care Unavailable SCANNING, GENERIC PROVIDER Referring Unava ilable TOM CONTE Primary Care Unavailabl e JESUS CASTREJON Attending Unavailable YVAN-EVARISTO QUEVEDO S Admitting Unavailshreyas e JESUS CASTREJON Referring Unavailable TOM CONTE Primary Care Unavailabl cecilio CONTE [facility] Primary Care Unavailabl e INÉS [facility] Primary Care Unavailabl LOIDA Valerio Attending Unavailable TONYA BELL Attending Unavailab TOM Torres Primary Care Unavailabl e TOM CONTE MILILANI Primary Care Unavailabl e INÉS [facility] Primary Care Unavailabl e SISSY GOLDEN Referring Unavailable TOM CONTE Primary Care Unavailabl SISSY Reynoso Referring Unavailable TOM CONTE Primary Care Unavailabl e Dr. Monie Alston DO Primary Care Physician [phone] Dmitry MANZANO, Dr. Rick Attending Physician Dr. Prabhjot Andres DO Emergency Department Physi corrie Dr. Monie Alston DO Referring Provider [phone] Jeyson Kwon Attending Physician Allergies Allergy Classification Reported Allergen(s) Allergy Type Date of Onset Reaction(s) Facility [facility] (3 sources) Contrast media Substance Allergy [facility] Work Phone: Penicillins (antibiotic) (3 sources) Penicillins; Translations: [Penicillins] Drug Allergy [facility] Work Phone: (14 sources) Penicillins; Translations: [Penicillins] drug allergy 05-16-20 03 Rash [facility] Other [facility] (1 source) allergy to substance [facility] Work Phone: (8 sources) Contrast media Allergy to substance (finding) [facility] Work Phone: (20 sources) Contrast media; Translations: [iodinated radiocontrast agents] Drug allergy Eruption of skin (disorder), Fever (finding) [facility] (20 sources) hydrALAZINE; Translations: [hydralazine] Drug Allergy 02-06-20 17 Unknown [facility] (20 sources) NIFEdipine; Translations: [nifedipine] Drug Allergy 05-28-20 16 Swelling [facility] (20 sources) Penicillin; Translations: [penicillin] Drug Allergy Anaphylaxis (disorder) [facility] (20 sources) traMADol; Translations: [tramadol] Drug Allergy 02-06-20 17 Unknown, Eruption of skin (disorder) [facility] (20 sources) Contrast media; Translations: [DYE] Drug Intolerance 07-04-19 16 Other: See Comments [facility] Work Phone: (20 sources) cyclobenzaprine; Translations: [CYCLOBENZAPRINE] Drug Allergy 02-06-20 17 Unknown, Eruption of skin (disorder) [facility] Work Phone: (4 sources) Penicillins Propensity to adverse reactions to drug 05-16-20 03 Rash [facility] Work Phone: (20 sources) Iodinated [facility]; Translations: [IODINATED CONTRAST MEDIA] Allergy to substance 07-13-19 20 Rash, Fever [facility] (20 sources) Penicillins Propensity to adverse reactions to drug 05-16-20 03 Rash [facility] Work Phone: (8 sources) Penicillins Allergy to substance 06-29-19 23 Anaphylaxis [facility] (1 source) cyclobenzaprine Drug Allergy [facility] Repository (1 source) hydrALAZINE Drug Allergy [facility] Repository (1 source) NIFEdipine Drug Allergy [facility] Repository (1 source) traMADol Drug Allergy [facility] Repository (1 source) CONTRAST ALLERGY PREMED PACK Drug allergy (disorder) [facility] Repository (1 source) Penicillins Propensity to adverse reactions to drug 05-16-20 03 Rash [facility] (8 sources) Penicillin G; Translations: [PENICILLIN G] Drug Allergy 12-09-19 [facility] Work Phone: (7 sources) fentaNYL; Translations: [fentanyl] Drug Allergy Feeling agitated (finding) [facility] (7 sources) Propranolol; Translations: [propranolol] Drug Allergy Feeling agitated (finding) [facility] (1 source) cyclobenzaprine Drug Allergy 04-11-20 [facility] Repository (1 source) Penicillins Drug allergy (disorder) 04-11-20 [facility] Repository (1 source) traMADol Drug Allergy 04-11-20 [facility] Repository Medications Current Medications Medication Drug Class(es) [...] as needed for Pain July 07, 2019 12:00am Complies with drug therapy Comment on above: Take 2 tablets every 4 hours as needed for pain. acetaminophen 325 mg / HYDROcodone bitartrate 5 mg oral tablet (2 sources) Opioid Agonist Start: 12-09-2022 End: 12-12-2022 take 1 tablet by mouth every eight hours as needed for pain [place] 325- 5 mg oral tablet Dose = 1 tab(s), Oral, q8h, PRN as needed for pain, X 3 day(s), # 9 tab(s), 0 Refill(s), Sciatic pain, 68 Start Date: 12/09/22 Stop Date: 12/12/22 Status: Ordered Start: 01-27-2022 End: 01-30-2022 take 1 tablet by mouth every eight hours as needed for pain [place] 325- 5 mg oral tablet Dose = 1 tab(s), Oral, q8h, PRN as needed for pain, X 3 day(s), # 9 tab(s), 0 Refill(s), Strain of muscle of left posterior lower leg Torn muscle, 73 Start Date: 01/27/22 Stop Date: 01/30/22 Status: Ordered albuterol 0.83 mg/ml inhalation solution (20 sources) beta2-Adrenergic Agonist Start: 12-08-2024 take 2.5 mg by inhalation every four hours as needed 2.5 mg, nebulization, Every 4 hours PRN, shortness of breath, Starting on Fri12/08/24 at 0939 Start: 12-08-2024 Albuterol Sulf ate 90 mcg/actuation HFA aerosol inhaler Active 2 NMA INHALATION EVERY 4 HOURS NEEDED as needed for wheezing December 07, 2024 11:00pm Complies with drug therapy Start: 08-24-2024 take 2 puff(s) by in [...] 6 HOURS as needed July 07, 2019 12:00am August 21, 2021 10:57am Start: 07-07-2019 End: 08-21-2021 take 1 puff(s) by inhalation every six hours Albuterol Sulfate Discontinued 2 PUFF INHALATION EVERY 6 HOURS July 07, 2019 1:00am August 21, 2021 11:57am albuterol MDI (90 mcg/inh) CFC free inhalation aerosol (11 sources) Start: 08-24-2024 take 1 puff(s) by inhalation every four hours as needed for wheezing albuterol MDI (90 mcg/inh) CFC free inhalation aerosol 1 puff(s), Inhalation, q4h, PRN as needed for wheezing, # 18 gram(s), 3 Refill(s), Pharmacy: [id number], 184.8, cm, 08/24/24 14:18:00 EST, Height, kg, 08/24/24 14:18:00 EST, Dosing Weight Start Date: 3/4/25 Status: Ordered Medication Dispense Status: Completed Quantity: 18.0 Unit: g Total Allowed Fills: 4 Fills Dispensed: 0 Start: 08-24-2024 take 1 puff(s) by in halation every four hours as needed for wheezing albuterol MDI (90 mcg/inh) CFC free inhalation aerosol 1 puff(s), Inhalation, q4h, PRN as needed for wheezing, # 18 gram(s), 3 Refill(s), Pharmacy: [id number], 184.8, cm, 08/24/24 14:18:00 EST, Height, kg, 08/24/24 14:18:00 EST, Dosing Weight Start Date: 08/24/24 Status: Ordered Quantity: 18.0 Unit: g Repeat number: 4 aspirin 81 mg delayed release oral tablet (20 sources) Platelet Aggregation Inhibitor, Nonsteroidal Anti-inflammatory Drug Start: 02-04-2024 Aspirin (Adult Lo w Dose Aspirin) 81 mg tablet,delayed release (DR/EC) Active 81 mg PO DAILY February 03, 2024 11:00pm On Hold: PACEMAKER BATTERY CHANGE Complies with drug therapy Start: 08-09-2023 take 1 tablet by michael th once daily aspirin 81 mg chewable tablet 1 tablet by ORAL/FEEDING TUBE route once daily. 08/09/2023 Active Comment on above: 1 tablet by ORAL/FEE DING TUBE route once daily. atorvastatin 40 mg oral tablet (20 sources) HMG-CoA Reductase Inhibitor Start: 12-08-2024 take 40 mg by mouth once daily 40 mg, oral, Nightly, First dose on Fri12/08/24 at 2100 Start: 08-08-2023 End: 10-22-2024 atorvastatin 40 mg oral tabl et Dose : 40 mg = 1 tab(s), Oral, qDay, # 100 tab(s), 3 Refill(s), Pharmacy: [facility]/pharmacy #[id number], 165.1, cm, 12/18/24 18:33:00 EDT, Height, kg, 12/20/24 16:54:00 EDT, Dosing Weight Start Date: 12/20/24 Status: Ordered Medication Dispense Status: Completed Quantity: 100.0 Unit: tab(s) Total Allowed Fills: 4 Fills Dispensed: 0 Start: 09-27-2022 End: 10-27-2022 atorvastatin 40 mg oral tabl et Dose : 40 mg = 1 tab(s), Oral, qDay, # 30 tab(s), 0 Refill(s), Pharmacy: [id number], 180.3, cm, 09/23/22 13:37:00 EDT, Height Start Date: 09/27/22 Stop Date: 10/27/22 Status: Ordered Quantity: 30.0 Unit: tab(s) Repeat number: 1 Comment on above: Take 1 tablet by michael th daily at bedtime. benzonatate 200 mg oral capsule (20 sources) Non-narcotic Antitussive Start: take 1 capsule by mouth three times daily as needed for cough Benzonatate 200 mg capsule Active 200 mg PO THREE TIMES A DAY as needed for cough 20 0 April 10, 2025 11:00pm Complies with drug therapy Start: 07-07-2019 End: 07-13-2019 take 1 capsule by mouth three times daily as needed Benzonatate 100 mg capsule Discontinued 100 mg PO THREE TIMES A DAY as needed July 07, 2019 12:00am July 13, 2019 1:31pm Start: 09-07-2013 End: 01-24-2014 take 2 capsules by mouth three times daily as needed for cough Benzonatate 100 MG capsule Discontinued 200 mg PO 3 TIMES DAILY NEEDED as needed for Cough 20 0 September 06, 2013 11:00pm January 24, 2014 12:16pm Start: 09-07-2013 End: 01-24-2014 take 200 mg by mouth three times daily as needed Benzonatate Discontinued 200 MG PO 3 TIMES DAILY NEEDED September 07, 2013 12:00am January 24, 2014 1:16pm busPIRone hydrochloride 5 mg oral tablet (20 sources) Start: 02-03-2025 End: 05-04-2025 take 1 tablet by mouth three times daily Buspirone 5 mg tablet Active 5 mg PO THREE TIMES A DAY March 14, 2025 11:00pm Complies with drug therapy Start: 08-26-2022 End: 09-11-2023 take 1 tablet by mouth three times daily Buspirone 5 mg tablet Discontinued 5 mg PO THREE TIMES A DAY September 18, 2022 11:00pm September 11, 2023 9:12am Comment on above: Take 1 tablet by [...] TIMES DAILY WITH MEALS July 07, 2019 8:36am February 04, 2024 2:11pm phosphate binder Take 2 caps with each snack Start: 09-03-2016 End: 07-07-2019 Calcium Acetate(Phosphat Bin d) 667 MG capsule Discontinued 4 {tbl} PO 3 TIMES DAILY WITH MEALS 100 0 September 03, 2016 12:22pm July 07, 2019 8:39am phosphate binder Start: 10-31-2015 End: 09-03-2016 Calcium Acetate(Phosphat Bin d) 667 MG capsule Discontinued 3 {tbl} PO NEEDED as needed for AFTER SNACKS October 30, 2015 11:00pm September 03, 2016 12:20pm Start: 10-31-2015 End: 07-07-2019 take 4 tablets by mouth three times daily at mealtime Calcium Acetate(Phosphat Bind) Discontinued 4 TABLET PO 3 TIMES DAILY WITH MEALS 100 September 03, 2016 1:22pm July 07, 2019 [...] (20 sources) alpha-Adrenergic Marcela, beta-Adrenergic Marcela Start: 04-07-2025 carvedilol 6.25 mg oral tablet Dose : 6.25 mg = 1 tab(s), Oral, BID, # 180 tab(s), 0 Refill(s), Pharmacy: [facility]/pharmacy #[id number], 184, cm, 02/03/25 9:50:00 EDT, Height, kg, 02/03/25 9:50:00 EDT, Dosing Weight Start Date: 04/07/25 Status: Ordered Medication Dispense Status: Completed Quantity: 180.0 Unit: tab(s) Total Allowed Fills: 1 Fills Dispensed: 0 Start: 12-08-2024 take 1 tablet by michael th twice daily Carvedilol 3.125 mg tablet Active 3.125 mg PO TWICE A DAY December 07, 2024 11:00pm Complies with drug therapy Start: 09-08-2024 End: 03-15-2025 take 1 tablet by mouth twice daily at mealtime Carvedilol 6.25 mg tablet Discontinued 6.25 mg PO TWICE A DAY 180 September 07, 2024 11:00pm March 15, 2025 9:58pm must administer with a meal/food Start: 03-03-2023 End: 09-08-2024 take 1 tablet by mouth twice daily at mealtime Carvedilol 3.125 mg tablet Discontinued 3.125 mg PO TWICE A DAY 180 3 March 04, 2023 11:13am September 12, 2023 3:34pm must administer with a meal/food Start: 09-27-2022 End: 10-27-2022 Coreg 3.125 mg oral tablet D ose : 3.125 mg = 1 tab(s), Oral, BIDM, # 60 tab(s), 0 Refill(s), Pharmacy: [id number], 180.3, cm, 09/23/22 13:37:00 EDT, [...] 25 mg PO TWICE A DAY October 30, 2015 11:00pm June 19, 2022 6:18pm blood pressure Start: 09-17-2014 End: 10-19-2014 take 1 tablet by mouth twice daily Carvedilol 6.25 MG tablet Discontinued 6.25 mg PO TWICE A DAY 60 0 September 16, 2014 11:00pm October 19, 2014 10:55am Carvedilol 25 MG Oral Tablet Quantity: 0 Refills: 0 Ordered: 14-Oct-2019 DO Active Comment on above: Take 25 mg by mouth twice daily with meals. Take 1 tablet by michael th twice daily with meals. Per [facility] cefdinir 300 mg oral capsule (1 source) Cephalosporin Antibacterial Start: 11-25-19 End: 12-02-19 cefdinir (OMNICEF) 300 mg capsule Indications: Other acute nonsuppurative otitis media of left ear, recurrence not specified Take 1 capsule by mouth every 48 hours for 7 days. Take after dialysis 4 capsule 11/24/2024 12/01/2024 Active doxycycline hyclate 100 mg oral tablet (5 sources) Tetracycline-class Drug Start: 03-16-20 take 1 tablet by mouth twice daily Doxycycline Hyclate 100 mg tablet Active 100 mg PO TWICE A DAY 20 10 0 March 15, 2025 11:00pm Complies with drug therapy Start: 05-30-2024 End: 06-09-2024 take 1 tablet by mouth twice daily [...] scheduled, First dose on Fri12/08/24 at 0935 hydrALAZINE hydrochloride 25 mg oral tablet (20 sources) Arteriolar Vasodilator Start: 01-31-2025 End: 01-31-2025 take 1 tablet [...] Fills: 1 Fills Dispensed: 0 Start: 12-20-2024 take 1 tablet by michael three times daily Hydralazine 25 mg tablet Active 25 mg PO THREE TIMES A DAY March 14, 2025 11:00pm Complies with drug therapy Start: 12-20-2024 End: 12-20-2024 take 1 tablet [...] dose on Fri12/08/24 at 0910 Start: 04-07-2024 End: 03-15-2025 take 1 tablet by mouth three times daily Hydralazine 100 mg tablet Discontinued 100 mg PO THREE TIMES A DAY April 06, 2024 11:00pm March 15, 2025 9:59pm Start: 03-16-2024 End: 04-07-2024 take 1 tablet by mouth twice daily Hydralazine 50 mg tablet Discontinued 50 mg PO TWICE A DAY March 15, 2024 11:00pm April 07, 2024 8:24am Start: 03-08-2024 take 2 tablets by mo ut three times daily hydrALAZINE (APRESOLINE) 50 mg [...] 10 mg PO TWICE A DAY 60 11 January 28, 2023 11:00pm September 11, 2023 9:13am Start: 10-22-2020 End: 08-08-2023 take 1 tablet by mouth three times daily Hydralazine 50 mg tablet Discontinued 50 mg PO THREE TIMES A DAY August 21, 2021 12:00am January 21, 2023 9:58am Start: 09-17-2014 End: 10-19-2014 take 1 tablet by mouth three times daily Hydralazine 25 MG tablet Discontinued 25 mg PO THREE TIMES A DAY 90 0 September 16, 2014 11:00pm October 19, 2014 10:55am hydrALAZINE HCl - 25 MG Oral Tablet Quantity: 0 Refills: 0 Ordered: 14-Oct-2019 DO Active Comment on above: Take 50 mg by mouth three times daily. Inhalational Spacing Device (1 source) Start: End: Inhalational Spacing Device 1 Device one time only for 1 dose. 1 Each 05/30/2024 05/30/2024 Active 24 hr isosorbide mononitrate 30 mg extended release oral tablet (20 sources) Nitrate Vasodilator Start: End: take 1 tablet by mouth twice daily, then take 1 tablet by mouth every twenty-four hours Isosorbide Mononitrate 30 mg tablet extended release 24 hr Active 30 mg PO TWICE A DAY December 07, 2024 11:00pm Complies with drug therapy Start: 10-14-2024 End: 03-15-2025 take 1 tablet by mouth once daily in the morning, then take 1 tablet by mouth every twenty-four hours Isosorbide Mononitrate 60 mg tablet extended release 24 hr Discontinued 60 mg PO EVERY MORNING 30 October 13, 2024 11:00pm March 15, 2025 9:59pm Start: 02-04-2024 End: 10-14-2024 take 1 tablet by mouth once daily, then take 1 tablet by mouth every twenty-four hours Isosorbide Mononitrate 30 mg tablet extended release 24 hr Discontinued 30 mg PO DAILY 30 February 04, 2024 2:41pm October 14, 2024 8:35am Start: 09-27-2022 End: 10-27-2022 isosorbide mononitrate 30 mg oral tablet, extended release Dose : 30 mg = 1 tab(s), Oral, qDayAC, # 30 tab(s), 0 Refill(s), Pharmacy: [id number], 180.3, cm, 09/23/22 13:37:00 EDT, [...] application, # 113 gram(s), 2 Refill(s), Pharmacy: [facility]/pharmacy #[id number], Ointment, 184, cm, 12/23/24 9:59:00 EDT, Height, [...] Patch as dir ected every 24 hours. methylPREDNISolone 4 mg oral tablet (19 sources) Corticosteroid Start: 2024 take 1 tablet by mouth once Methylprednisolone (Medrol (Chetan)) 4 mg tablets,dose pack Active 0 PO per package directions April 10, 2025 11:00pm PO PER PKG DIR Complies with drug therapy Start: 02-26-2022 End: 07-01-2022 methylPREDNISolone (MEDROL, CHETAN,) 4 mg Dose-Pack Use orally as directed. 21 tablet 02/26/2022 07/01/2022 Discontinued (Course of therapy completed) Comment on above: Use orally as direct ed. metroNIDAZOLE 500 mg oral tablet (1 source) [...] 24 hr nicotine 0.875 mg/hr transdermal system (12 sources) Cholinergic Nicotinic Agonist Start: 025 apply 1 dose topically every twenty-four hours Nicotine 21 mg/24 hr patch 24 hour Active 1 NMA TOPICAL DAILY December 07, 2024 11:00pm Complies with drug therapy Start: 12-06-2024 apply 1 dose transde rmal route every twenty-four hours nicotine (Nicoderm CQ) 21 mg/[address] 1 patch on the skin once every 24 hours. 12/06/2024 Active Start: 12-03-2024 End: 01-02-2025 nicotine 21 mg/24 hr transde rmal film, extended release 21 = mg Apply 1 patch(es), Transdermal, qDay, apply to skin, X 30 day(s), # 30 patch(es), 0 Refill(s), Pharmacy: [facility]/pharmacy #[id number], 180, cm, 12/03/24 13:46:00 EDT, [...] Date: 05/07/21 Status: Ordered ondansetron 4 mg oral tablet (3 sources) Serotonin-3 Receptor Antagonist Start: 03-15-2025 take 1 tablet by mouth every eight hours as needed for nausea and vomiting Ondansetron Hcl 4 mg tablet Active 4 mg PO EVERY 8 HOURS NEEDED as needed for nausea and vomiting March 14, 2025 11:00pm Complies with drug therapy Start: 10-11-2021 End: 10-14-2021 ondansetron 4 mg oral tablet , disintegrating Dose : 4 mg = 1 tab(s), Oral, TID, X 3 day(s), # 10 tab(s), 0 Refill(s), 10/14/21 18:24:00 EDT Start Date: 10/11/21 Stop Date: 10/14/21 Status: Ordered oxyCODONE hydrochloride 5 mg oral tablet (20 sources) Opioid Agonist Start: 08-08-2023 End: 08-15-2023 [...] as needed for Pain October 31, 2014 11:11am November 02, 2014 11:03am Start: 10-19-2014 End: 10-31-2014 take 10-20 mg by mouth every four hours as needed for pain Oxycodone 5 MG tablet Discontinued 10 - 20 mg PO EVERY 4 HOURS NEEDED as needed for Pain 80 October 18, 2014 11:00pm October 31, 2014 11:11am Start: 10-19-2014 End: 11-02-2014 take 10 mg by mouth every four hours as needed Oxycodone Discontinued 10 MG PO EVERY 4 HOURS NEEDED October 31, 2014 12:11pm November 02, 2014 12:03pm Comment on above: Take 1 tablet by michael th every 6 hours as needed for up to 7 days. polyethylene glycol 3350 76143 mg powder for oral solution (2 sources) Osmotic Laxative Start: 12-08-2024 17 g, oral, Daily, First dose on Fri12/08/24 at 0900, Bowel Regimen - for prevention of constipation. Start: 10-06-2020 End: 07-17-2021 polyethylene glycol 3350 (MO RALAX, GLYCOLAX) 17 gram/dose powder Indications: Blood [...] once daily prednisone 10mg tab (TAPER) Taper 11-54-31-10-5 mg, Oral, Daily, Take 6 tabs daily x 3days, then 4 tabs daily x 3days, then 2 tabs daily x 3days,then 1 tab daily x 3days,then 1/2 tab daily x 2 days, # 40 tab(s), 0 Refill(s), Pharmacy: [facility] #[id number], Low back pain with left-sided sciatica, [...] mg tablet Discontinued 50 mg PO .COMPLEX 3 0 July 07, 2019 12:00am August 21, 2021 10:57am 50 mg PO Take 1 tablet 13 hours, 7 hours and 1 hour prior to test; Start: 04-18-2013 End: 01-24-2014 take 4 tablets by mouth once daily Prednisone 5 MG tablet Discontinued 20 mg PO DAILY April 17, 2013 11:00pm January 24, 2014 12:17pm Start: 04-18-2013 End: 01-24-2014 take 20 mg [...] tablet (20 sources) Phosphate Binder Start: 09-29-2017 take 1 tablet by mouth three times daily at mealtime Sevelamer Carbonate 800 mg tablet Active 800 mg PO THREE TIMES A DAY August 21, 2021 12:00am KIDNEY DISEASE must administer with a meal/food Complies with drug therapy Renvela TABS Terry ntity: 0 Refills: 0 Ordered: 18-Aug-2018 DO Active Renvela TABS Ref ills: 0 Active Renvela TABS Ref ills: 0 DO Active Comment on above: Take 1 tablet by michael three times daily. sodium zirconium cyclosilicate 60115 mg powder for oral suspension (1 source) Start: 5 End: 5 take 10 g by mouth every eight hours 10 g, oral, Every 8 hours, First dose on Fri12/08/24 at 0905, For 6 doses, Empty entire contents of packet(s) into 45 mL water. Stir well and administer immediately. If powder remains, rinse glass with water and administer. Symbicort 80 mcg-4.5 mcg/inh Inhaler (11 sources) Start: 4 take 1 dose by inhalation twice daily Symbicort 80 mcg-4.5 mcg/inh Inhaler Dose = 2 puff(s), Inhalation, BID, # 10.2 gram(s), 2 Refill(s), Pharmacy: [facility] #[id number], COPD (chronic obstructive pulmonary disease), 184.4, [...] BID, # 10.2 gram(s), 2 Refill(s), Pharmacy: [facility] #[id number], COPD (chronic obstructive pulmonary disease), 184.4, cm, 06/02/24 14:51:00 EST, Height, kg, 06/02/24 14:51:00 EST, Dosing Weight Start Date: 06/02/24 Status: Ordered Quantity: 10.2 Unit: g Repeat number: 3 Indications: Chronic obstructive pulmonary disease, unspecified; Start: 06-02-2024 take 1 dose by inhal ation twice daily Symbicort 80 mcg-4.5 mcg/inh Inhaler Dose = 2 puff(s), Inhalation, BID, # 10.2 gram(s), 2 Refill(s), Pharmacy: [facility] #[id number], COPD (chronic obstructive pulmonary disease), 184.4, [...] / oxyCODONE hydrochloride 5 mg oral tablet (20 sources) Opioid Agonist Start: 02-05-2018 End: 02-13-2018 Oxycodone-Acetaminoph en 1 TABLET tablet Discontinued 1 {tbl} PO EVERY 6 HOURS NEEDED as needed for Pain 6 2 0 February 04, 2018 11:00pm February 13, 2018 2:05pm Postoperative pain Other acute postprocedural pain Start: 02-05-2018 End: 02-13-2018 take 1 tablet by mouth every six hours as needed Oxycodone-Acetaminophen Discontinued 1 TABLET PO EVERY 6 HOURS NEEDED 6 2 February 05, 2018 12:00am February 13, 2018 3:05pm Start: 09-15-2014 End: 09-17-2014 Oxycodone-Acetaminophen (Per cocet 10-325 Mg Tablet) 1 EACH tablet Discontinued 1 {tbl} PO EVERY 8 HOURS NEEDED as needed for Pain September 14, 2014 11:00pm September 17, 2014 10:14am ALPRAZolam 1 mg oral tablet (20 sources) Benzodiazepine Start: 08-02-2015 End: 09-07-2015 take 1 tablet by mouth twice daily as needed for anxiety Alprazolam (Xanax) 1 MG tablet Discontinued 1 mg PO TWICE DAILY NEEDED as needed for Anxiety 14 0 August 02, 2015 4:12pm September 07, 2015 3:48pm Start: 10-31-2014 End: 11-02-2014 take 1 tablet by mouth three times daily Alprazolam 0.5 MG tablet Discontinued 0.5 mg PO THREE TIMES A DAY October 30, 2014 11:00pm November 02, 2014 11:02am Start: 09-17-2014 End: 09-17-2014 take 2 tablets by mouth twice daily as needed for anxiety Alprazolam 0.25 MG tablet Discontinued 0.5 mg PO TWICE DAILY NEEDED as needed for anxiety 10 September 17, 2014 10:12am September 17, 2014 10:15am Start: 09-17-2014 End: 09-17-2014 take 0.5 mg by mouth twice daily as needed Alprazolam Discontinued 0.5 MG PO TWICE DAILY NEEDED September 17, 2014 11:12am September 17, 2014 11:15am Start: 09-15-2014 End: 09-17-2014 take 1 tablet by mouth twice daily Alprazolam 0.25 MG tablet Discontinued 0.25 mg PO TWICE A DAY September 14, 2014 11:00pm September 17, 2014 10:13am amLODIPine 10 mg oral tablet (20 sources) Dihydropyridine Calcium Channel Marcela Start: 09-03-2016 End: 08-08-2023 take 1 tablet by mouth once daily Amlodipine 10 MG tablet Discontinued 10 mg PO DAILY 30 0 September 03, 2016 12:23pm December 03, 2016 7:50am Start: 04-29-2013 End: 01-24-2014 take 1 tablet by mouth once daily Amlodipine 5 MG tablet Discontinued 5 mg PO DAILY April 29, 2013 12:00am January 24, 2014 12:15pm amLODIPine Besyl ate 10 MG Oral Tablet [...] MG tablet Discontinued 250 mg PO DAILY 4 0 September 06, 2013 11:00pm January 24, 2014 12:16pm Comment on above: Take 2 tabs on the f irst day, then one tab daily for 4 days. baclofen 10 mg oral tablet (4 sources) gamma-Aminobutyric Acid-ergic Agonist Start: 12-09-2022 End: 12-16-2022 baclofen 10 mg oral tablet Dose : 10 mg = 1 tab(s), Oral, TID, # 21 tab(s), 0 Refill(s) Start Date: 12/09/22 Stop Date: 12/16/22 Status: Ordered Quantity: 21.0 Unit: tab(s) Repeat number: 1 bisacodyl 5 mg delayed release oral tablet [...] mg PO THREE TIMES A DAY September 14, 2014 11:00pm August 20, 2015 11:53am Start: 09-15-2014 End: 08-20-2015 take 1500 mg by mouth three times daily Calcium Carbonate Discontinued 1500 MG PO THREE TIMES A DAY September 15, 2014 12:00am August 20, 2015 12:53pm Start: 04-29-2013 End: 01-24-2014 take 3 tablets by mouth three times daily at mealtime Calcium Carbonate 500 MG tablet Discontinued 1500 mg PO 3 TIMES DAILY WITH MEALS April 29, 2013 12:00am January 24, 2014 12:17pm Start: 04-29-2013 End: 01-24-2014 take 1500 mg [...] 1 dose clopidogrel 75 mg oral tablet (20 sources) [id number] Platelet Inhibitor Start: 09-30-2017 End: 01-19-2018 take 1 tablet by mouth once daily Clopidogrel 75 MG tablet Discontinued 75 mg PO DAILY October 05, 2017 11:00pm January 19, 2018 11:54am blood thinner Plavix 75 MG Ora l Tablet Quantity: [...] psule Discontinued 50 mg PO .COMPLEX 1 0 July 07, 2019 12:00am August 21, 2021 10:57am 50 mg PO Take 1 tablet night prior to test; Start: 09-29-2017 Benadryl 25 mg oral tablet Dose : 25 mg = 1 tab(s), Oral, TID, PRN as needed for allergy symptoms Start Date: 09/29/17 Status: Ordered Comment on above: Take 1 capsule by [facility] as directed for 1 dose. Take 1 capsule by mouth 1 hour prior to your scan. etodolac 400 mg oral tablet (6 sources) Nonsteroidal Anti-inflammatory Drug Start: 02-08-20 End: 02-15-20 etodolac 400 mg oral tablet Dose : 400 mg = 1 tab(s), Oral, BID, # 14 tab(s), 0 Refill(s), Foot pain Start Date: 02/07/21 Stop Date: 02/14/21 Status: Ordered famotidine 20 mg oral tablet (10 sources) Histamine-2 Receptor Antagonist Start: 10-31-19 16 End: 01-20-20 take 1 tablet by mouth once daily as needed Famotidine 20 MG tablet Discontinued 20 mg PO DAILY NEEDED as needed for Indigestion October 30, 2015 11:00pm January 19, 2018 11:54am Gatorade Sports Drink (1 source) Start: 10-07-19 End: 07-17-19 Gatorade Sports Drink Indications: Blood in stool Use as directed for Miralax / Gatorade Bowel Prep Kit 64 oz 10/06/2020 07/17/2021 Discontinued 0.5 ml HYDROmorphone hydrochloride 1 mg/ml prefilled syringe (1 source) Opioid Agonist Start: 12-09-19 End: 12-09-19 0.5 mg, intravenous, Once, On Fri12/08/24 at 0550, For 1 dose hydrOXYzine hydrochloride 25 mg oral tablet (20 sources) Antihistamine Start: 09-20-19 23 End: 02-04-20 24 take 1 tablet by mouth three times daily as needed Hydroxyzine Hcl 25 mg tablet Discontinued 25 mg PO THREE TIMES A DAY as needed for itching September 18, 2022 11:00pm February 04, 2024 2:11pm Start: 08-26-2022 End: 10-01-2022 take 0.5 tablet [...] for anxiety. levoFLOXacin 500 mg oral tablet (10 sources) Quinolone Antimicrobial Start: 07-22-19 End: 07-29-19 17 take 1 tablet by mouth once daily Levofloxacin 500 MG tablet Discontinued 500 mg PO DAILY July 22, 2016 12:00am July 29, 2016 3:29pm lisinopril 5 mg oral tablet (20 sources) Angiotensin Converting Enzyme Inhibitor Start: 12-04-19 End: 09-11-19 24 take 1 tablet by mouth once daily Lisinopril 5 mg tablet Discontinued 5 mg PO DAILY August 21, 2021 12:00am September 11, 2023 9:13am On Hold: hypotension Comment on above: 5 mg. Take 5 mg by mouth o nce daily. metoprolol tartrate 50 mg oral tablet (10 sources) beta-Adrenergic Marcela Start: 09-06-19 16 End: 09-07-19 16 take 1 tablet by mouth twice daily Metoprolol Tartrate 50 MG tablet Discontinued 50 mg PO TWICE A DAY September 05, 2015 11:00pm September 07, 2015 3:46pm Multi Vitamin TABS (1 source) Multi Vitamin TA BS Refills: 0 Active Multi Vitamin TABS (8 sources) Multi Vitamin TA BS Quantity: 0 Refills: 0 Ordered: 14-Oct-2019 DO Active mycophenolate mofetil 250 mg oral capsule (20 sources) Start: 04-29-20 13 End: 01-25-20 14 take 1 capsule by mouth twice daily Mycophenolate Mofetil 250 MG capsule Discontinued 500 mg PO TWICE A DAY April 29, 2013 12:00am January 24, 2014 12:16pm Start: 04-29-2013 End: 01-24-2014 take 500 mg by mouth twice daily Mycophenolate Mofetil Discontinued 500 MG PO TWICE A DAY April 29, 2013 1:00am January 24, 2014 1:16pm Start: 04-18-2013 End: 04-29-2013 take 1 tablet by mouth twice daily Mycophenolate Mofetil 500 MG tablet Discontinued 500 mg PO TWICE A DAY April 17, 2013 11:00pm April 29, 2013 4:31am nabumetone 500 mg oral tablet (3 sources) [...] 90 mg PO DAILY March 03, 2023 1:27pm March 03, 2023 1:46pm Currently holding due to low BP Start: 05-29-2022 End: 06-19-2022 take 3 tablets by mouth once daily Nifedipine 30 mg tablet extended release Discontinued 90 mg PO DAILY May 29, 2022 11:24am June 19, 2022 6:17pm Start: 05-29-2022 End: 06-19-2022 take 90 mg by mouth once daily Nifedipine Discontinued 90 MG PO DAILY May 29, 2022 12:24pm June 19, 2022 7:17pm Start: 08-21-2021 End: 05-29-2022 take 1 tablet by mouth once daily Nifedipine 30 mg tablet extended release Discontinued 30 mg PO DAILY August 21, 2021 12:00am May 29, 2022 11:24am Start: 04-30-2021 End: 03-03-2023 take 1 tablet [...] mg / trimethoprim 80 mg oral tablet (20 sources) Dihydrofolate Reductase Inhibitor Antibacterial, Sulfonamide Antimicrobial Start: 04-29-2013 End: 01-24-2014 Sulfamethoxazole-Trime thoprim (Bactrim 400-80 Mg Tablet) 1 EACH tablet Discontinued 1 {tbl} PO DAILY April 29, 2013 12:00am January 24, 2014 12:17pm Start: 04-18-2013 End: 04-29-2013 take 1 tablet by mouth once daily Bactrim 400-80 mg Tablet Discontinued 1 TABLET PO DAILY April 18, 2013 5:43am April 29, 2013 5:31am Start: 04-18-2013 End: 04-29-2013 Bactrim 400-80 mg Tablet Discontinued 1 {tbl} PO DAILY April 17, 2013 11:00pm April 29, 2013 4:31am Start: 04-18-2013 End: 04-29-2013 Bactrim 400-80 mg [...] PO TWICE A DAY April 29, 2013 12:00am January 24, 2014 12:17pm Start: 04-29-2013 End: 01-24-2014 take 6 mg by mouth twice daily Tacrolimus Discontinued 6 MG PO TWICE A DAY April 29, 2013 1:00am January 24, 2014 1:17pm Start: 04-18-2013 End: 04-29-2013 take 3 capsules by mouth once daily Tacrolimus 1 MG capsule Discontinued 3 mg PO DAILY April 17, 2013 11:00pm April 29, 2013 4:30am Start: 04-18-2013 End: 04-29-2013 take 4 capsules by mouth at bedtime Tacrolimus 1 MG capsule Discontinued 4 mg PO AT BEDTIME April 17, 2013 11:00pm April 29, 2013 4:31am Start: 04-18-2013 End: 04-29-2013 Tacrolimus (Protopic) 60 GM Oint...G. Discontinued April 17, 2013 11:00pm April 29, 2013 4:30am Start: 04-18-2013 End: 04-29-2013 take 3 mg [...] Date Episodic/Chronic Acute and unspecified renal failure (20 sources) Chronic renal failure 03-01-2014 Chronic Comment on above: Cleared for surgery 04/26/15. Last hemodialysis 02/28/14, full run per pt Has history of two f alessio kidey transplants and prior peritoneal dialysis.Needs catheter for future dialysis. Allergic reactions (4 sources) Radiographic dye allergy status; Translations: [Allergy status to narcotic agent status] Onset: 5 Episodic Anxiety disorders (20 sources) Anxiety; Translations: [Anxiety disorder, unspecified] Onset: 4 03-01-2014 Chronic Comment on above: active without cardi ac limitations, EKG NSR without changes suggestive for ischemia Attention-deficit, conduct, and disruptive behavior disorders (11 sources) Behavior showing reduced motor activity 08-24-2024 Episodic Bacterial infection; unspecified site (12 sources) History of methicillin resistant Staphylococcus aureus [...] 6 08-02-2015 Chronic Chronic ulcer of skin (8 sources) Pressure ulcer stage 1; Translations: [Pressure [...] Complications of surgical procedures or medical care (10 sources) History of subtotal thyroidectomy; Translations: [Postprocedural [...] never fired. Device placed 01/2015 is a [employer] Itrevia 7 DR-T,model [id number];serial [id number] The device is a Entasso.May use a magnet per cardiology clearance. Congestive heart failure; nonhypertensive (20 sources) Congestive heart failure; Translations: [Congestive heart failure, unspecified] Onset: 6 08-02-2015 Chronic Coronary atherosclerosis and other heart disease (20 sources) Coronary arteriosclerosis; Translations: [Atherosclerotic heart disease of [place] coronary artery without angina pectoris] Onset: 5 09-07-2024 Chronic Deficiency and other anemia (8 sources) Anemia of chronic disease; Translations: [Anemia [...] unspecified; Translations: [Anemia, unspecified] Onset: 5 Episodic Diabetes mellitus with complications (4 sources) Type 2 diabetes mellitus with other specified complication; Translations: [Type 2 diabetes mellitus with other specified complication (Multi)] Onset: 5 Chronic Diabetes mellitus without complication (4 sources) Type 2 diabetes mellitus; Translations: [Type 2 diabetes mellitus with other specified complication] 03-18-2025 Chronic Digestive congenital anomalies (20 sources) Malrotation of colon; 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 Genitourinary symptoms and ill-defined conditions (20 sources) [...] 5 10-05-2013 Chronic Intestinal obstruction without hernia (10 sources) Partial obstruction of small bowel; Translations: [...] Onset: 5 Episodic Other aftercare (1 source) [facility] (current) use of inhaled steroids; Translations: [supervisor intermediates (current) use of inhaled steroids] Onset: 5 Episodic Other aftercare (3 sources) Other long-term (current) drug therapy; Translations: [Other long-term (current) drug therapy] Onset: 5 Episodic Other aftercare (1 source) supervisor intermediates (current) use of bisphosphonates; Translations: [[facility] (current) use of bisphosphonates] Onset: 5 Episodic Other aftercare (1 source) [facility] (current) use of aspirin; Translations: [supervisor intermediates (current) use of aspirin] Onset: 5 Episodic [...] circulatory system] 05-23-2023 Episodic Other congenital anomalies (5 sources) Hereditary disorder of musculoskeletal system; Translations: [Other specified congenital malformation syndromes, not elsewhere classified] 11-11-2023 Chronic Other connective tissue disease (1 source) Foot pain; Translations: [Pain in unspecified foot] Onset: 3 Episodic Other connective tissue disease (1 source) Musculoskeletal symptom; Translations: [Other symptoms and signs involving the musculoskeletal system] Onset: 3 Episodic Other connective tissue disease (12 sources) Wrist sign 01-16-2023 Episodic Other connective tissue disease (11 sources) Triggering of digit 02-20-2024 Episodic Other diseases of veins and lymphatics (1 source) Obstruction of superior vena cava; 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] 05-23-2023 Episodic Other diseases of veins and lymphatics (5 sources) Inferior vena cava stenosis; 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] 11-11-2023 Episodic Other ear and sense organ disorders (10 sources) Impacted cerumen 11-30-2024 Episodic Other endocrine disorders (1 source) Hyperparathyroidism, unspecified; Translations: [Hyperparathyroidism, unspecified] Onset: 5 Chronic Other gastrointestinal disorders (20 sources) Diarrhea; Translations: [Diarrhea, unspecified] Onset: 2 Episodic Other injuries and conditions due to external causes (2 sources) Traumatic AND/OR non-traumatic injury; Translations: [Other injury of unspecified body region, initial encounter] Onset: 2 Episodic Other injuries and conditions due to external causes (11 sources) History of fall 08-24-2024 Episodic Other injuries and conditions due to external causes (11 sources) Injury of ankle; Translations: [Unspecified injury of unspecified ankle, initial encounter] Onset: 5 Episodic Other injuries and conditions due to external causes (3 sources) Tear of skin 03-11-2025 Episodic Other injuries and conditions due to external causes (1 source) Other injury of unspecified body region, initial encounter; Translations: [Other injury of unspecified body region, initial encounter] Onset: 5 Episodic Other injuries and conditions due to external causes (1 source) History of falling; Translations: [History of falling] Onset: 5 Episodic Other lower respiratory disease [...] Onset: 3 Episodic Other lower respiratory disease (6 sources) Shortness of breath; Translations: [Shortness of breath] Onset: 2 Episodic Other lower respiratory disease (1 source) Cough; Translations: [Acute cough] 05-30-2024 Episodic Other nervous system disorders (20 sources) Uremic encephalopathy; 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] Onset: 3 07-01-2022 Chronic Other nutritional; endocrine; and metabolic disorders (10 sources) Hyperphosphatemia; Translations: [Other disorders of phosphorus metabolism] 02-05-2018 Chronic Other nutritional; endocrine; and metabolic disorders (20 sources) Hypocalcemia; Translations: [Hypocalcemia] 02-05-2018 Chronic Other nutritional; endocrine; and metabolic disorders (20 sources) H/O: endocrine disorder; Translations: [Personal history of other endocrine, nutritional and metabolic disease] Onset: 3 08-02-2015 Episodic Comment on above: HYPERPARATHYROIDISM - DR HERNANDEZ NOTES Other nutritional; endocrine; and metabolic disorders (11 sources) Overweight in adulthood with body mass [...] 11-24-2024 Episodic Otitis media and related conditions (12 sources) Other acute nonsuppurative otitis media, left [...] vascular disease, unspecified] Onset: 4 11-12-2023 Chronic Pneumonia (except that caused by tuberculosis or sexually transmitted disease) (20 sources) Pneumonia; Translations: [Pneumonia, unspecified organism] Onset: 3 10-28-2014 Episodic Pulmonary heart disease (2 sources) Pulmonary hypertension; Translations: [Pulmonary hypertension, unspecified] Onset: 5 Chronic Residual codes; unclassified (20 sources) Device in situ 08-02-2015 Episodic Comment on above: dialysis cath right chest Residual codes; unclassified (20 sources) Noncompliance with treatment; Translations: [Patient's noncompliance with other medical treatment and regimen] Onset: 7 02-12-2017 Episodic Residual codes; unclassified (20 sources) Edema of lower extremity; Translations: [Localized edema] Onset: 3 Resolved: 3 07-01-2022 Episodic Residual codes; unclassified (10 sources) Tobacco user; Translations: [Tobacco use] 07-13-2019 Episodic Residual codes; unclassified (10 sources) Noncompliance with medication regimen; Translations: [Patient's [...] Spondylosis; intervertebral disc disorders; other back problems (15 sources) Sciatica; Translations: [Sciatica, unspecified side] Onset: 3 Episodic Sprains and strains (20 sources) Shoulder strain; Translations: [Strain of unspecified muscle, fascia and tendon at shoulder and upper arm level, right arm, initial encounter] Onset: 2 Episodic Substance-related disorders (20 sources) Cigarette smoker ; Translations: [Tobacco user] Onset: 6 08-02-2015 Chronic Superficial injury; contusion (10 sources) Contusion of hand; Translations: [Contusion of right hand, initial encounter] 02-05-2018 Episodic Syncope (10 sources) Syncope and collapse; Translations: [Syncope and collapse] 02-05-2018 Episodic Unclassified (6 sources) Patient encounter status; Translations: [Pre-transplant evaluation for kidney transplant] 03-18-2025 Unclassified (20 sources) Eye glasses, device (physical object) 10-25-2014 Unclassified (20 sources) Infection control status 04-26-2015 Comment on above: MRSA Unclassified (20 sources) Patient noncompliance - general 08-02-2015 Comment on above: NOTED ON DR HERNANDEZ'S OFFICE NOTES Unclassified (1 source) New Patient Onset: 2 Unclassified (1 source) ENCOUNTER FOR SCREENING FOR COVID-19; Translations: [ENCOUNTER FOR SCREENING FOR COVID-19] Onset: 2 Unclassified (11 sources) Finding related to ability to use [...] [Other abnormal glucose] Onset: 10-13-2020 10-13-2020 Episodic Fluid and electrolyte disorders (20 sources) Hyponatremia; Translations: [Hypo-osmolality and hyponatremia] Onset: 12-18-2024 02-05-2018 Episodic Immunizations and screening for infectious disease (20 sources) Methicillin resistant staphylococcus aureus carrier; Translations: [Carrier or suspected carrier of Methicillin resistant Staphylococcus aureus] Onset: 02-28-2014 02-28-2014 Episodic Mood disorders (3 sources) Mood disorders Onset: 02-15-2025 02-22-2025 Nausea and vomiting (20 sources) Vomiting; Translations: [Vomiting, unspecified] Onset: 10-11-2021 Episodic Other injuries and conditions due to external causes (1 source) Unspecified injury of unspecified ankle, initial encounter; Translations: [Unspecified injury of unspecified ankle, initial encounter] Onset: 12-06-2024 Episodic Other lower respiratory disease (20 sources) Snoring; Translations: [Snoring] Onset: 08-18-2015 08-18-2015 Episodic Other nervous system disorders (17 sources) Postoperative pain ; Translations: [Other acute postprocedural pain] Onset: 08-07-2023 08-07-2023 Episodic Pleurisy; pneumothorax; pulmonary collapse (20 sources) Pleural effusion; Translations: [Pleural effusion, not elsewhere classified] Onset: 02-04-2022 Resolved: 11-21-2022 Episodic NEGATED: Highlighted row has not occurred!Residual codes; unclassified (20 sources) Disease Episodic Results Test Name Value Interpretation Reference Range Facility [facility] Letter Text [facility] 04-18-2025 [facility] Telephone ([place]) -- CARLITOS SWEENEY ([id number]) 1975 M NFR Date Time Provider Department 04/18/25 NEIL BALLARD During your visit today, we recorded the following information about you: Milton Ayers 04/18/2025 9:29 AM Signed Called patient to schedule an appointment with Dr. Goncalves from a referral we received and the number has calling restrictions Lizeth Cloud 04/20/2025 11:16 AM Signed Calling restrictions on phone sending letter to patient to call the office to schedule. Allergies As of Date: 04/18/2025 Noted Allergy Reaction IODINATED CONTRAST MEDIA 07/13/2019 2 - Rash CYCLOBENZAPRINE 02/05/2017 16 - Unknown DYE 07/04/2015 14 - Other: See Comments Comments: IV contrast makes pt run a high temperature PENICILLINS 05/16/2003 2 - Rash PROCARDIA (NIFEDIPINE) 05/28/2016 7 - Swelling TRAMADOL 02/05/2017 16 - Unknown Date Reviewed: 11/24/2024 Reviewed by: Clemencia Parson MA - Fully Assessed Reason for Visit: Appointment [[id number]] Prescriptions as of 04/20/2025 - albuterol HFA (PROVENTIL HFA, VENTOLIN HFA) [...] for pain. 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] 07/01/2022 Migraine headache [G43.909] 07/01/2022 Nonrheumatic aortic valve stenosis [I35.0] 11/21/2022 Arteriovenous fistula, acquired (HCC) [I77.0] 11/21/2022 Postoperative pain [G89.18] 08/07/2023 Peripheral arterial disease (HCC) [I73.9] 11/12/2023 Encounter Status:Closed by MILTON AYERS on 04/18/25 [facility] .Auto Diffon 04-12-2025 Basophil, Absolute 0.0 10 3/mcL Normal 0.0-0.3 [facility] Comment on above: Performed By: #### A DIFF, GFR, BMP, CBC, ANEU #### [facility] [address] [place] [id number] Basophils/100 WBC (Bld) 1.1 % Normal 0.0-2.5 [facility] Comment on above: Performed By: #### A DIFF, GFR, BMP, CBC, ANEU #### [address] [address] Eosinophil, Absolute 0.1 10 3/mcL Normal 0.0-0.7 [facility] Comment on above: Performed By: #### A DIFF, GFR, BMP, CBC, ANEU #### [address] [address] Eosinophils/100 WBC (Bld) 3.2 % Normal 0.0-6.0 [facility] Comment on above: Performed By: #### A DIFF, GFR, BMP, CBC, ANEU #### [address] [address] Lymphocyte, Absolute 0.8 10 3/mcL Low 0.9-4.3 [facility] Comment on above: Performed By: #### A DIFF, GFR, BMP, CBC, ANEU #### [address] [address] Lymphocytes/100 WBC (Bld) 21.3 % Normal 20.0-40.0 [facility] Comment on above: Performed By: #### A DIFF, GFR, BMP, CBC, ANEU #### [address] [address] Monocyte, Absolute 0.3 10 3/mcL Normal 0.1-1.4 [facility] Comment on above: Performed By: #### A DIFF, GFR, BMP, CBC, ANEU #### [address] [address] Monocytes/100 WBC (Bld) 8.2 % Normal 2.0-13.0 [facility] Comment on above: Performed By: #### A DIFF, GFR, BMP, CBC, ANEU #### [address] [address] Neutrophils/100 WBC (Bld) 66.2 % Normal 50.0-75.0 [facility] Comment on above: Performed By: #### A DIFF, GFR, BMP, CBC, ANEU #### [address] [address] .GFRon 04-12-2025 Estimated Glomerular Filtration Rate 4 ml/min/1.73sqm Normal [facility] Comment on above: Result Comment: Stages [...] A DIFF, GFR, BMP, CBC, ANEU #### [place] [address] .MDWon 04-12-2025 Monocyte Distribution Width 18.82 Normal 0.00-20.00 [facility] Comment on above: Result Comment: For ED adult patients suspected of sepsis, MDW<=20.0 does not rule out sepsis or risk of sepsis Performed By: #### A DIFF, GFR, BMP, CBC, ANEU #### [place] [address] .NEUABSon 04-12-2025 Neutrophil, Absolute 2.4 10 3/mcL Normal 2.3-8.1 [facility] Comment on above: Performed By: #### A DIFF, GFR, BMP, CBC, ANEU #### [place] [address] CBCon 04-12-2025 Erythrocyte distribution width (RBC) [Ratio] 18.0 % High 11.5-15.5 [facility] Comment on above: Performed By: #### A DIFF, GFR, BMP, CBC, ANEU #### [place] [address] Hematocrit (Bld) [Volume fraction] 30.7 % Low 40.0-52.0 [facility] Comment on above: Performed By: #### A DIFF, GFR, BMP, CBC, ANEU #### [place] [address] Hgb 9.8 G/dL Low 13.0-17.5 [facility] Comment on above: Performed By: #### A DIFF, GFR, BMP, CBC, ANEU #### [place] [address] MCH (RBC) [Entitic mass] 27.2 pg Normal 27.0-33.0 [facility] Comment on above: Performed By: #### A DIFF, GFR, BMP, CBC, ANEU #### [place] [address] MCHC 31.9 G/dL Low 32.0-36.0 [facility] Comment on above: Performed By: #### A DIFF, GFR, BMP, CBC, ANEU #### [place] [address] MCV (RBC) [Entitic vol] 85.5 fL Normal 81.0-100.0 [facility] Comment on above: Performed By: #### A DIFF, GFR, BMP, CBC, ANEU #### [place] [address] Platelet 168 10 3/mcL Normal 150-450 [facility] Comment on above: Performed By: #### A DIFF, GFR, BMP, CBC, ANEU #### [place] [address] Platelet mean volume (Bld) [Entitic vol] 8.3 fL Normal 6.4-10.5 [facility] Comment on above: Performed By: #### A DIFF, GFR, BMP, CBC, ANEU #### [place] [address] RBC 3.59 10 6/mcL Low 4.50-6.00 [facility] Comment on above: Performed By: #### A DIFF, GFR, BMP, CBC, ANEU #### [place] [address] WBC 3.7 10 3/mcL Low 4.5-10.8 [facility] Comment on above: Performed By: #### A DIFF, GFR, BMP, CBC, ANEU #### [place] [address] CMPon 04-12-2025 Albumin Level 3.6 G/dL Normal 3.2-4.8 [facility] Comment on above: Performed By: #### A DIFF, GFR, BMP, CBC, ANEU #### [address] [address] Albumin/Globulin [Mass ratio] 0.9 {ratio} Normal 0.9-1.6 [facility] Comment on above: Performed By: #### A DIFF, GFR, BMP, CBC, ANEU #### [address] [address] ALP [Catalytic activity/Vol] 82 U/L Normal 38-126 [facility] Comment on above: Performed By: #### A DIFF, GFR, BMP, CBC, ANEU #### [address] [address] ALT [Catalytic activity/Vol] 17 U/L Normal 12-55 [facility] Comment on above: Performed By: #### A DIFF, GFR, BMP, CBC, ANEU #### [place] [id number] AST [Catalytic activity/Vol] 18 U/L Normal 8-34 [facility] Comment on above: Performed By: #### A DIFF, GFR, BMP, CBC, ANEU #### [place] [id number] Bili Total 0.20 mg/dL Normal 0.20-1.20 [facility] Comment on above: Result Comment: Use of this assay is not recommended for patients undergoing treatment with eltrombopag due to the potential for falsely elevated results. Performed By: #### A DIFF, GFR, BMP, CBC, ANEU #### [address] [address] BUN/Creatinine Ratio 5.4 ratio Low 10.0-22.0 [facility] Comment on above: Performed By: #### A DIFF, GFR, BMP, CBC, ANEU #### [address] [address] Calcium [Mass/Vol] 8.4 mg/dL Low 8.7-10.4 [facility] Comment on above: Performed By: #### A DIFF, GFR, BMP, CBC, ANEU #### [address] [address] Chloride [Moles/Vol] 96 mmol/L Low 98-110 [facility] Comment on above: Performed By: #### A DIFF, GFR, BMP, CBC, ANEU #### [address] [address] CO2 [Moles/Vol] 27 mmol/L Normal 22-32 [facility] Comment on above: Performed By: #### A DIFF, GFR, BMP, CBC, ANEU #### [address] [address] Creatinine [Mass/Vol] 14.18 mg/dL High 0.60-1.40 [facility] Comment on above: Result Comment: Test ing performed on Timescape analyzer using enzymatic creatinine methodology. Performed By: #### A DIFF, GFR, BMP, CBC, ANEU #### [place] [id number] Electrolyte Balance 16.0 mEq/L High 4.0-15.0 [facility] Comment on above: Performed By: #### A DIFF, GFR, BMP, CBC, ANEU #### [address] [address] Globulin 3.9 G/dL Normal 2.5-4.2 [facility] Comment on above: Performed By: #### A DIFF, GFR, BMP, CBC, ANEU #### [address] [address] Glucose [Mass/Vol] 152 mg/dL High 70-110 [facility] Comment on above: Performed By: #### A DIFF, GFR, BMP, CBC, ANEU #### [address] [address] Potassium [Moles/Vol] 4.9 mmol/L Normal 3.5-5.0 [facility] Comment on above: Performed By: #### A DIFF, GFR, BMP, CBC, ANEU #### [address] [address] Sodium [Moles/Vol] 139 mmol/L Normal 136-145 [facility] Comment on above: Performed By: #### A DIFF, GFR, BMP, CBC, ANEU #### [address] [address] Total Protein 7.5 G/dL Normal 5.7-8.2 [facility] Comment on above: Performed By: #### A DIFF, GFR, BMP, CBC, ANEU #### [address] [address] Urea nitrogen [Mass/Vol] 77.0 mg/dL High 8.0-22.0 [facility] Comment on above: Performed By: #### A DIFF, GFR, BMP, CBC, ANEU #### [address] [address] LABORATORYOrdered By: SYSTEM SYSTEM on 04-12-2025 Troponin I.cardiac DL <= 0.01 ng/mL [Mass/Vol] 62 ng/L High 0 - 54 ng/L ADM SS Comment on above: Interpretive Data: High Sensitive Troponin I Reference Ranges: Female: 0-34 ng/L Male: 0-54 ng/L Testing performed on [employer] analyzer using direct chemiluminescent technology. Albumin BCP dye [Mass/Vol] 3.6 G/dL Normal 3.2 - 4.8 G/dL ADM SS Albumin/Globulin [Mass ratio] 0.9 {ratio} Normal 0.9 - 1.6 ratio ADM SS ALP [Catalytic activity/Vol] 82 U/L Normal 38 - 126 U/L ADM SS ALT No additional P-5'-P [Catalytic activity/Vol] 17 U/L Normal 12 - 55 U/L ADM SS AST [Catalytic activity/Vol] 18 U/L Normal 8 - 34 U/L ADM SS Basophils (Bld) [#/Vol] 0.0 103/mcL Normal 0.0 - 0.3 10^3/mcL Workflow SS Basophils/100 WBC (Bld) 1.1 % Normal 0.0 - 2.5 % Workflow SS Bilirubin [Mass/Vol] 0.20 mg/dL Normal 0.20 - 1.20 mg/dL ADM SS Comment on above: Interpretive Data: U se of this assay is not recommended for patients undergoing treatment with eltrombopag due to the potential for falsely elevated results. Calcium [Mass/Vol] 8.4 mg/dL Low 8.7 - 10. 4 mg/dL ADM SS Chloride [Moles/Vol] 96 mmol/L Low 98 - 11 0 mEq/L ADM SS CO2 [Moles/Vol] 27 mmol/L Normal 22 - 32 mEq/L ADM SS Creatinine [Mass/Vol] 14.18 mg/dL High 0.60 - 1.40 mg/dL ADM SS Comment on above: Interpretive Data: T esting performed on [employer] analyzer using enzymatic creatinine methodology. Electrolyte Balance 16.0 mEq/L High 4.0 - 15 .0 mEq/L ADM SS Eosinophils (Bld) [#/Vol] 0.1 103/mcL Normal 0.0 - 0.7 10^3/mcL Workflow SS Eosinophils/100 WBC (Bld) 3.2 % Normal 0.0 - 6.0 % Workflow SS Erythrocyte distribution width (RBC) [Ratio] 18.0 % High 11.5 - 15.5 % Workflow SS Globulin 3.9 G/dL Normal 2.5 - 4.2 G/dL ADM SS GLOMERULAR FILTRATION RATE/1.73 SQ M.PREDICTED:ARVRAT:PT :SER/PLAS/BLD:QN:CREA TININE-BASED FORMULA (CKD-EPI 2020) 4 ml/min/1.73sqm Invalid Interpretation Code ADM SS [...] to calculate the eGFR results. Glucose [Mass/Vol] 152 mg/dL High 70 - 110 mg/dL ADM SS Hematocrit (Bld) [Volume fraction] 30.7 % Low 40.0 - 52.0 % Workflow SS Hemoglobin (Bld) [Mass/Vol] 9.8 G/dL Low 13.0 - 17.5 G/dL AH Workflow SS Lymphocytes (Bld) [#/Vol] 0.8 103/mcL Low 0.9 - 4.3 10^3/mcL AH Workflow SS Lymphocytes/100 WBC (Bld) 21.3 % Normal 20.0 - 40.0 % AH Workflow SS MCH (RBC) [Entitic mass] 27.2 pg Normal 27.0 - 33.0 pg AH Workflow SS MCHC 31.9 G/dL Low 32.0 - 36.0 G/dL AH Workflow SS MCV (RBC) [Entitic vol] 85.5 fL Normal 81.0 - 100.0 fL AH Workflow SS Monocyte distribution width Auto (Bld) [Entitic vol] 18.82 1 Normal 0.00 - 20.00 AH Workflow SS Comment on above: Result Comment: For ED adult patients suspected of sepsis, MDW<=20.0 does not rule out sepsis or risk of sepsis Monocytes (Bld) [#/Vol] 0.3 103/mcL Normal 0.1 - 1.4 10^3/mcL AH Workflow SS Monocytes/100 WBC (Bld) 8.2 % Normal 2.0 - 13.0 % AH Workflow SS Neutrophils (Bld) [#/Vol] 2.4 103/mcL Normal 2.3 - 8.1 10^3/mcL AH Workflow SS Neutrophils/100 WBC (Bld) 66.2 % Normal 50.0 - 75.0 % AH Workflow SS Platelet mean volume (Bld) [Entitic vol] 8.3 fL Normal 6.4 - 10.5 fL AH Workflow SS Platelets (Bld) [#/Vol] 168 103/mcL Normal 150 - 450 10^3/mcL AH Workflow SS Potassium [Moles/Vol] 4.9 mmol/L Normal 3.5 - 5.0 mEq/L AH ADM SS Protein [Mass/Vol] 7.5 G/dL Normal 5.7 - 8.2 G/dL AH ADM SS RBC (Bld) [#/Vol] 3.59 106/mcL Low 4.50 - 6.0 0 10^6/mcL AH Workflow SS Sodium [Moles/Vol] 139 mmol/L Normal 136 - 145 mEq/L AH ADM SS Troponin I.cardiac DL <= 0.01 ng/mL [Mass/Vol] 65 ng/L High 0 - 54 ng/L [facility] SS Comment on above: Interpretive Data: High Sensitive Troponin I Reference Ranges: Female: 0-34 ng/L Male: 0-54 ng/L Testing performed on [employer] IM analyzer using direct chemiluminescent technology. Urea nitrogen [Mass/Vol] 77.0 mg/dL High 8.0 - 22.0 mg/dL ADM SS Urea nitrogen/Creatinine [Mass ratio] 5.4 ratio Low 10.0 - 22.0 ratio ADM SS WBC (Bld) [#/Vol] 3.7 103/mcL Low 4.5 - 10.8 10^3/mcL Workflow SS TROPHSon 04-12-2025 High Sensitivity Troponin I 62 ng/L High 0-54 [facility] Comment on above: Result Comment: High Sensitive Troponin I Reference Ranges: Female: 0-34 ng/L Male: 0-54 ng/L Testing performed on [employer] IM analyzer using direct chemiluminescent technology. Performed By: #### A DIFF, GFR, BMP, CBC, ANEU #### [place] [address] High Sensitivity Troponin I 65 ng/L High 0-54 [facility] Comment on above: Result Comment: High Sensitive Troponin I Reference Ranges: Female: 0-34 ng/L Male: 0-54 ng/L Testing performed on [employer] IM analyzer using direct chemiluminescent technology. Performed By: #### A DIFF, GFR, BMP, CBC, ANEU #### [place] [address] XR CHEST 2 VIEWSon XR CHEST 2 VIEWS ORIGINAL EXAMINATION: TWO XRAY VIEWS OF THE CHEST 04/12/2025 7:13 pm COMPARISON: March 10, 2025 HISTORY: ORDERING SYSTEM PROVIDED HISTORY: Reason for Exam: CHEST PAIN FINDINGS: Left-sided cardiac conduction device. Cardiomediastinal silhouette is unchanged in size. Persistent to mild increased mid and lower lung field opacities. Similar appearing blunting of the right costophrenic angle. Osseous structures grossly unchanged. IMPRESSION: Persistent to mild increased mid and lower lung field opacities. Interpreted by: Lyle Braswell Preliminary Report By: Lyle Braswell Electronically signed By Lyle Braswell Dictated Date: 04/12/2025 7:17:10 PM Prelim Date: 04/12/2025 7:20:43 PM Sign Date: 04/12/2025 7:20:43 PM Ordering Provider: ANITHA KIM RP [facility]IN Urgent Care Visit Reporton 1 Urgent Care Visit Report [facility] [address], [address] [place] [id number] OFFICE VISIT Date of Service: 04/11/25 MR#: [id number] Acct: [id number] Name: CARLITOS SWEENEY Rep #: [id number] : 1975 Provider: DEBBIE Dow Age/Sex: 49/M [facility] Status: Signed Intake Vital Signs 03/15/25 21:21 04/11/25 14:39 Height 5 ft 11 in 5 ft 11 in Weight: 160 lb BMI 22.3 BP 154/80 H Blood Pressure Location Lt brachial Position Sitting Pulse 82 Pulse Source Monitor Temp 97.6 F L Temp Source Oral Pulse Oximetry (%) 98 Oxygen Delivery Method room air Intake Visit Reasons: SINUS COMPLAINT/CHEST CONGESTION/COUGH Chief Complaint: Sinus ISsues Accompanied by: Self Allergies Iodinated Contrast Media (CONTRASTS) Allergy (Verified 04/11/25 14:27) Fever and skin rash Penicillins Allergy (Verified 04/11/25 14:27) Anaphylaxis cyclobenzaprine (From Flexeril) Adverse Reaction (Verified 04/11/25 14:27) dizzy, faints tramadol (From Ultram) Adverse Reaction (Verified 04/11/25 14:27) Rash Medications ???Medication ???Instructions ???Recorded ???Confirmed ???Type acetaminophen 325 mg tablet 650 mg PO Q4H PRN Pain 07/07/19 History sevelamer carbonate 800 mg tablet 800 mg PO TID KIDNEY DISEASE 07/1404/11/25 History aspirin 81 mg tablet,delayed 81 mg PO DAILY 02/04/24 04/11/25 H istory release (Adult Low Dose Aspirin) Held on 03/15/25. Instructions: PACEMAKER BATTERY CHANGE atorvastatin 40 mg tablet (Lipitor) 40 mg PO DAILY 08/14/24 10/20/2 5 History albuterol sulfate 90 mcg/actuation 2 puff inhalation Q4H PRN PRN 04/11/25 History aerosol inhaler wheezing carvedilol 3.125 mg tablet 3.125 mg PO BID 12/08/24 04/11/25 History isosorbide mononitrate 30 mg 30 mg PO BID 12/08/24 04/11/25 His tory tablet,extended release 24 hr nicotine 21 mg/24 hr daily 1 patch topical DAILY 12/08/24 History transdermal patch buspirone 5 mg tablet 5 mg PO TID 03/15/25 04/11/25 Hist ory hydralazine 25 mg tablet 25 mg PO TID 03/15/25 04/11/25 His tory ondansetron HCl 4 mg tablet 4 mg PO Q8H PRN PRN nausea and 04/11/25 History vomiting doxycycline hyclate 100 mg tablet 100 mg PO BID 10 days #20 tabs 04/11/25 Rx benzonatate 200 mg capsule 200 mg PO TID PRN cough #20 caps 1 04/11/25 Rx methylprednisolone 4 mg tablets in See Rx Instructions PO PER PKG D IR 04/11/25 04/11/25 Rx a dose pack (Medrol (Chetan)) #21 tabs Nurse's Note: Congestion, cough, coughing up clear mucus. X3 days PFSH Medical History Inferior vena caval stenosis [...] in: walking frequency: daily seatbelt use: always HPI HPI Chief Complaint: Sinus ISsues Details: CARLITOS SWEENEY, is a 49 M who presents to the office today for medrol benzon [facility] evaluation in the [facility] for approximately 2-3 day history of persistent congestion, productive clear cough; no c/o fever, chills, JACKSON, myalgias, fatigue, nausea, or diarrhea. Patient note (more content not included)... Normal [facility] ECG 12-LEADon 03-31-2025 ECG 12-LEAD Ventricular Rate 77 Atrial Rate 77 P-R Interval 172 QRS Duration 108 Q-T Interval 428 QTC Calculation(Bazett) 484 P [place] 60 R [place] -27 T [place] 154 QRS Count 12 Q Onset 209 P Onset 123 P Offset 182 T Offset 423 QTC Fredericia 465 Diagnosis Normal sinus rhythm Biatrial enlargement T wave abnormality, consider inferolateral ischemia Prolonged QT Confirmed by Aj Lora ([id number]) on 04/09/2025 6:42:12 AM Normal [facility] TRANSTHORACIC ECHO (TTE) COM PLETEon 03-31-2025 TRANSTHORACIC ECHO (TTE) COMPLETE [facility], [address] [place] [address], [address], [place], [place] [address] and TRANSTHORACIC ECHOCARDIOGRAM REPORT Patient Name: CARLITOS SWEENEY Reading Physician: [id number] Bean Carrasquillo MD Study Date: 03/31/2025 Ordering Provider: [id number] SISSY LEI MRN/PID: [id number] Fellow: Nurse: Date of /Age: 4 1975 / 49 years Go Cart Mechanic: Thor Johnson RDCS Gender assigned at Additional Staff: : Height: 180.34 cm Admit Date: Weight: 75.30 kg Admission Status: Outpatient BSA / BMI: 1.95 m2 / 23.15 kg/m2 Blood Pressure: 163/80 mmHg Department Location: [facility] Study Type: TRANSTHORACIC ECHO (TTE) COMPLETE Diagnosis/ICD: Encounter for other preprocedural examination-Z01.818 Indication: Kidney tx evaluation CPT Code: Echo Complete w Full Doppler-09109 Patient History: Pertinent CHF, COPD, Cardiomyopathy and HTN. ESRD,Kidney tx History: (2006,2011),DM. Study Detail: The following Echo studies were performed: 2D, M-Mode, Doppler and color flow. Technically challenging study due to body habitus and slender body habitus. Patient has a defibrillator. Patient has a pacemaker. PHYSICIAN INTERPRETATION: Left Ventricle: Left ventricular ejection fraction is moderately decreased by visual estimate at 30-35%. There is mild eccentric left ventricular hypertrophy. There is global hypokinesis of the left ventricle with minor regional variations. The left ventricular cavity size is mild to moderately dilated. There is normal septal and normal posterior left ventricular wall thickness. Spectral Doppler shows a normal pattern of left ventricular diastolic filling. Left Atrium: The left atrium is mildly dilated. Right Ventricle: The right ventricle is normal in size. There is mildly reduced right ventricular systolic function. Right Atrium: The right atrium is normal in size. Aortic Valve: The aortic valve is trileaflet. The aortic valve area by VTI is 2.14 cm?? with a peak velocity of 2.41 m/s. The peak and mean gradients are 23 mmHg and 12 mmHg, respectively with a dimensionless index of 0.62. There is evidence of mild aortic valve stenosis. There is no evidence of aortic valve regurgitation. Mitral Valve: The mitral valve is mildly thickened. The doppler estimated peak and mean diastolic pressure gradients are 11.9 mmHg and 3 mmHg, respectively. The mean gradient of the mitral valve is 3 mmHg. There is mild to moderate mitral valve regurgitation. The E Vmax is 1.15 m/s. The mitral regurgitant orifice area is 3 mm2. The mitral regurgitant volume is 5.03 ml. Tricuspid Valve: The tricuspid valve is structurally normal. There is moderate tricuspid regurgitation. The Doppler estimated right ventricular systolic pressure (RVSP) is severely elevated at 68 mmHg. Pulmonic Valve: The pulmonic valve is structurally normal. There is physiologic pulmonic valve regurgitation. Pericardium: There is no pericardial effusion noted. Aorta: The aortic root is normal. CONCLUSIONS: 1. Left ventricular ejection fraction is moderately decreased by visual estimate at 30-35%. 2. There is global hypokinesis of the left ventricle with minor regional variations. 3. Left ventricular cavity size is mild to moderately dilated. 4. The left atrium is mildly dilated. 5. Mild to moderate mitral valve regurgitation. 6. Moderate tricuspid regurgitation visualized. 7. The Doppler estimated RVSP is severely elevated at 68 mmHg. 8. Mild aortic valve stenosis. The peak and mean gradients are 23 mmHg and 12 mmHg respectively. QUANTITATIVE DATA SUMMARY: 2D MEASUREMENTS: Normal Ranges: LAs: 4.47 cm (2.7-4.0cm) IVSd: 1.03 cm (0.6-1.1cm) LVPWd: 0.87 cm (0.6-1.1cm) LVIDd: 6.24 cm (3.9-5.9cm) LVIDs: 5.24 cm LV Mass Index: 127 g/m2 LVEDV Index: 114 ml/m2 LV % FS 16.0 % LEFT ATRIUM: Normal Ranges: LA Vol A4C: 78.7 ml (22+/-6mL/m2) LA Vol A2C: 51.0 ml LA Vol BP: 73.7 ml LA Vol Index A4C: 40.4ml/m2 LA Vol Index A2C: 26.2 ml/m2 LA Vol Index BP: 37.8 ml/m2 LA Area A4C: 26.0 cm2 LA Area A2C: 18.0 cm2 LA [place] A4C: 7.3 cm LA [place] A2C: 5.4 cm LA Volume Index: 37.0 ml/m2 LA Vol A4C: 67.6 ml LA Vol A2C: 52.2 ml LA Vol Index BSA: 30.7 ml/m2 RIGHT ATRIUM: Normal Ranges: RA Vol A4C: 69.7 ml (8.3-19.5ml) RA Vol Index A4C: 35.8 ml/m2 RA Area A4C: 22.0 cm2 RA [place] A4C: 5.9 cm M-MODE MEASUREMENTS: Normal Ranges: Ao Root: 3.00 cm (2.0-3.7cm) LAs: 4.50 cm (2.7-4.0cm) AORTA MEASUREMENTS: Normal Ranges: Asc Ao, d: 3.50 cm (2.1-3.4cm) Ao Arch: 2.20 cm (2.0-3.6cm) LV SYSTOLIC FUNCTION: Normal Ranges: EF-A4C View: 41 % (>=55%) EF-A2C View: 30 % EF-Biplane: 33 % EF-Visual: 33 % LV EF Reported: 33 % LV DIASTOLIC FUNCTION: Normal Ranges: MV Peak E: 1.15 m/s (0.7-1.2 m/s) MV Peak A: 0.65 m/s (0.42-0.7 m/s) E/A Ratio: 1.78 (1.0-2.2) MV e' 0.061 m/s (>8.0) MV lateral e' 0.07 m/s MV medial e' 0.05 (more content not included)... Normal CT CARDIAC SCORING WO IV CON TRASTon 03-18-2025 CT CARDIAC SCORING WO IV CONTRAST Interpreted By: Kadeem Aragon, STUDY: CT CARDIAC SCORING WO IV CONTRAST; 03/18/2025 10:02 am INDICATION: Signs/Symptoms:prekidney recipient transplant evaluation. COMPARISON: None. ACCESSION NUMBER(S): [id number] ORDERING CLINICIAN: SISSY LEI TECHNIQUE: Using prospective ECG gating, CT scan of the coronary arteries was performed without intravenous contrast. Coronary calcium scoring was performed according to the method of Agatston. FINDINGS: The score and distribution of calcium in the coronary arteries is as follows: LM 148.42, LAD 2115.96, LCx 696.58, RCA 0, Total 2960.96 The visualized ascending thoracic aorta measures 3.3 cm in diameter. The heart is normal in size. Dual chamber pacemaker leads in place. No pericardial effusion is present. No gross evidence of mediastinal or hilar lymphadenopathy or masses is identified. The visualized segments of the lungs demonstrate interstitial edema and small bilateral pleural effusions. Right basilar opacities demonstrate chronic atelectatic changes. Atelectasis/scarring with calcifications.. The main pulmonary artery, right and left pulmonary artery are normal in size. The visualized subdiaphragmatic structures appear intact. IMPRESSION: 1. Coronary artery calcium score of 2960.96. Given the patient's extremely elevated CT calcium score consider correlation with anatomic/physiologic coronary artery testing. 2. Pulmonary edema bilateral pleural effusions and right basilar opacities most likely chronic atelectatic changes.*. *Coronary Artery Agatston score Score risk Very low 1-99 Mildly increased 100-299 Moderately increased >300 Moderate to severely increased >800 Emi et al. JCCT 2016 (http://dx.doi.org/10.1016 /j.jcct.2016.11.003) JOSHUA 10-Year CHD Risk with Coronary Artery Calcification can be calcuate using link below https://www.joshua-[email or web address] /MESACHDRisk/[email or web address] /RiskScore.aspx Yandel. JACC 2014 (http://dx.doi.org/10.1016 /j.j acc.2015.08.035) Signed by: Kadeem Aragon 03/18/2025 4:38 PM Dictation workstation: [id number] [facility] [place] CT for calcium scoring WO co ntrast and CTA W contrast IV Heart and coronary arterieson 03-18-2025 1. Coronary artery c alcium score of 2960.96. Given the patient's extremely elevated CT calcium score consider correlation with anatomic/physiologic coronary artery testing. 2. Pulmonary edema bilateral pleural effusions and right basilar opacities most likely chronic atelectatic changes.*. *Coronary Artery Agatston score Score risk Very low 1-99 Mildly increased 100-299 Moderately increased >300 Moderate to severely increased >800 Emi et al. JCCT 2016 (http://dx.doi.org/10.1016 /j.jcct.2016.11.003) JOSHUA 10-Year CHD Risk with Coronary Artery Calcification can be calcuate using link below https://www.joshua-[email or web address] /MESACHDRisk/MesaRiskScore /RiskScore.aspx Yandel. JACC 2014 (http://dx.doi.org/10.1016 /j.j acc.2015.08.035) Signed by: Kadeem Aragon 03/18/2025 4:38 PM Dictation workstation: [id number] MMODAL Interpreted By: Kadeem English, STUDY: CT CARDIAC SCORING WO IV CONTRAST; 03/18/2025 10:02 am INDICATION: Signs/Symptoms:prekidney recipient transplant evaluation. COMPARISON: None. ACCESSION NUMBER(S): [id number] ORDERING CLINICIAN: SISSY LEI TECHNIQUE: Using prospective ECG gating, CT scan of the coronary arteries was performed without intravenous contrast. Coronary calcium scoring was performed according to the method of Agatston. FINDINGS: The score and distribution of calcium in the coronary arteries is as follows: LM 148.42, LAD 2115.96, LCx 696.58, RCA 0, Total 2960.96 The visualized ascending thoracic aorta measures 3.3 cm in diameter. The heart is normal in size. Dual chamber pacemaker leads in place. No pericardial effusion is present. No gross evidence of mediastinal or hilar lymphadenopathy or masses is identified. The visualized segments of the lungs demonstrate interstitial edema and small bilateral pleural effusions. Right basilar opacities demonstrate chronic atelectatic changes. Atelectasis/scarring with calcifications.. The main pulmonary artery, right and left pulmonary artery are normal in size. The visualized subdiaphragmatic structures appear intact. MMODAL Radiology Study observation (narrative) [facility] Work Phone: CT for calcium scoring WO co ntrast and CTA W contrast IV Heart and coronary arteriesOrdered By: Leena Aragon on 03-18-2025 [facility] Work Phone: Electrocardiogram reportOrde red By: Napoleon Almonte on 03-16-2025 EKG study [facility] Cardiovascular Services [address] [place] [address] 12 Lead EKG 03/15/257 MR#: [id number] Acct: [id number] Name: CARLITOS SWEENEY Rep #:[id number] : 1975 49 From: Napoleon padilla MD Attending Dr: Status: DEP E R Ordering Dr: Prabhjot Andres DO Date: 0 03/15/25 Location: ED Sex: M C Admitted: Test Reason : SOB Blood Pressure : */* mmHG Vent. Rate : 82 BPM Atrial Rate : 82 BPM P-R Int : 160 ms QRS Dur : 98 ms QT Int : 438 ms P-R-T Axes : 42 -49 99 degrees QTcB Int : 511 ms Normal sinus rhythm Possible Left atrial enlargement Left anterior fascicular block Minimal voltage criteria for LVH, may be normal variant ( [place] product ) Nonspecific T wave abnormality Prolonged QT Abnormal ECG Confirmed by Napoleon Almonet ([id number]), editor dictionary DEJAH LEA ([id number]) on 56:00:00 AM Referred By: MEENA Confirmed By: Napoleon Almonte 03/17/25599 Date _ Napoleon Almonte MD CC: Dr. Monie Alston DO; Dr. Prabhjot Andres DO ~ Signed [facility] Other Phone: 12 Lead EKGon 03-15-2025 12 Lead EKG [facility] Cardiovascular Services [address] [place] [address] 12 Lead EKG 03/15/25 2237 MR#: [id number] Acct: [id number] Name: CARLITOS SWEENEY Rep #: [id number] : 1975 49 From: Napoleon Almonte MD Attending Dr: Status: DEP ER Ordering Dr: Prabhjot Andres DO Date: 03/15/25 Location: ED Sex: M C Admitted: Test Reason : SOB Blood Pressure : */* mmHG Vent. Rate : 82 BPM Atrial Rate : 82 BPM P-R Int : 160 ms QRS Dur : 98 ms QT Int : 438 ms P-R-T Axes : 42 -49 99 degrees QTcB Int : 511 ms Normal sinus rhythm Possible Left atrial enlargement Left anterior fascicular block Minimal voltage criteria for LVH, may be normal variant ( [place] product ) Nonspecific T wave abnormality Prolonged QT Abnormal ECG Confirmed by Napoleon Almonet ([id number]), DEJAH Marquez ([id number]) on 03/17/2025 6:00:00 AM Referred By: MEENA Confirmed By: Napoleon Almonte 03/17/25 06 Date Napoleon Almonte MD CC: Dr. Monie Alston, ; Dr. Prabhjot Andres DO Signed Normal [facility] Absolute lymphocyte countOrd ered By: Prabhjot Andres on 03-15-2025 Lymphocytes Auto (Unsp spec) [#/Vol] 0.79 10*3/uL Low 0.83-4.51 [facility] Absolute neutrophil countOrd ered By: Prabhjot Andres on 03-15-2025 Neutrophils (Bld) [#/Vol] 3.1 10*3/uL 2.0-7.7 [facility] Anion gap in Serum or Plasma Ordered By: Prabhjot Andres on 03-15-2025 Anion gap [Moles/Vol] 19 mmol/L High 5-15 [facility] Automated lymphocyte count a s percentage of total leukocytesOrdered By: Prabhjot Andres on 03-15-2025 Lymphocytes/100 WBC Auto (Unsp spec) 17.8 % Low 19-41 [facility] BUN/creatinine ratioOrdered By: Prabhjot Andres on 03-15-2025 Urea nitrogen/Creatinine [Mass ratio] 4.6 mg/mg Low 10-20 [facility] Basic Metabolic Profile (BMP )on 03-15-2025 BUN/CRE 4.6 RATIO Low 10-20 [facility] Comment on above: Performed By: #### L 100.0100, L500.2500 #### [facility] [address] [place], [address] Calcium [Mass/Vol] 8.0 mg/dL Normal 7.6-11.0 [facility] Comment on above: Performed By: #### L 100.0100, L500.2500 #### [facility] [address] [place], [address] Chloride [Moles/Vol] 97 mmol/L Low 98-108 [facility] Comment on above: Performed By: #### L 100.0100, L500.2500 #### [facility] [address] [place], [address] CO2 [Moles/Vol] 24.4 mmol/L Normal 21.0-32.0 [facility] Comment on above: Performed By: #### L 100.0100, L500.2500 #### [facility] [address] [place], [address] Creatinine [Mass/Vol] 14.60 mg/dL Invalid Interpretation Code 0.70-1.20 [facility] Comment on above: Result Comment: Crit ical Result(s) Called at: 2313 by: SUNITHA HAVEN TO FLEX SPARR ??Results read back by same. Performed By: #### L 100.0100, L500.2500 #### [facility] [address] [place], [address] ECRCL 6.18 ml/min Invalid Interpretation Code 50-250 [facility] Comment on above: Performed By: #### L 100.0100, L500.2500 #### [facility] [address] [place], [address] GAP 19 High 5-15 [facility] Comment on above: Performed By: #### L 100.0100, L500.2500 #### [facility] [address] [place], [address] GFR/1.73 sq M.predicted among non-blacks MDRD (S/P/Bld) [Vol rate/Area] 4 mL/min/{1.73_m2} Low >60 [facility] Comment on above: Result Comment: mL/m in/1.73m2 CKD-EPI Creatinine Equation (2020) Performed By: #### L 100.0100, L500.2500 #### [facility] [address] [place], [address] Glucose [Mass/Vol] 105 mg/dL High 70-99 [facility] Comment on above: Performed By: #### L 100.0100, L500.2500 #### [facility] [address] [place], [address] Potassium [Moles/Vol] 4.9 mmol/L Normal 3.3-5.1 [facility] Comment on above: Performed By: #### L 100.0100, L500.2500 #### [facility] [address] [place], [address] Sodium [Moles/Vol] 140 mmol/L Normal 133-145 [facility] Comment on above: Performed By: #### L 100.0100, L500.2500 #### [facility] [address] [place], [address] Urea nitrogen [Mass/Vol] 67 mg/dL High 4-19 [facility] Comment on above: Performed By: #### L 100.0100, L500.2500 #### [facility] [address] [place], [address] Basophil percentageOrdered B y: Prabhjotjessica Zamoras on 03-15-2025 Basophils/100 WBC (Bld) 0.9 % 0-1 [facility] CBC W/Diff, Automatedon 02-22 Absolute Lymph 0.79 X10 3/uL Low 0.83-4.51 [facility] Comment on above: Performed By: #### L 100.0100, L500.2500 #### [facility] [address] [place], [address] Absolute Neut 3.1 X10 3/uL Normal 2.0-7.7 [facility] Comment on above: Performed By: #### L 100.0100, L500.2500 #### [facility] [address] [place], [address] Basophils/100 WBC (Bld) 0.9 % Normal 0-1 [facility] Comment on above: Performed By: #### L 100.0100, L500.2500 #### [facility] [address] [place], [address] Eosinophils/100 WBC (Bld) 2.5 % Normal 0-5 [facility] Comment on above: Performed By: #### L 100.0100, L500.2500 #### [facility] [address] [place], [address] Erythrocyte distribution width (RBC) [Ratio] 16.5 % High 11.6-14.6 [facility] Comment on above: Performed By: #### L 100.0100, L500.2500 #### [facility] [address] [place], [address] Hematocrit (Bld) [Volume fraction] 25.2 % Low 40-54 [facility] Comment on above: Performed By: #### L 100.0100, L500.2500 #### [facility] [address] [place], [address] Hemoglobin (Bld) [Mass/Vol] 8.0 g/dL Low 13.0-16.5 [facility] Comment on above: Performed By: #### L 100.0100, L500.2500 #### [facility] [address] [place], [address] IG% 0.500 Normal 0.0-0.9 [facility] Comment on above: Result Comment: IG% - Immature Granulocytes (promyelocytes, myelocytes and metamyelocytes) > 1% indicates that a LEFT SHIFT is Present. Performed By: #### L 100.0100, L500.2500 #### [facility] [address] [place], [address] Lymphocytes/100 WBC (Bld) 17.8 % Low 19-41 [facility] Comment on above: Performed By: #### L 100.0100, L500.2500 #### [facility] [address] [place], [address] MCH (RBC) [Entitic mass] 27.9 pg Normal 27.0-32.0 [facility] Comment on above: Performed By: #### L 100.0100, L500.2500 #### [facility] [address] [place], [address] MCHC (RBC) [Mass/Vol] 31.7 g/dL Low 32-36 [facility] Comment on above: Performed By: #### L 100.0100, L500.2500 #### [facility] [address] [place], [address] MCV (RBC) [Entitic vol] 87.8 fL Normal 80-94 [facility] Comment on above: Performed By: #### L 100.0100, L500.2500 #### [facility] [address] [place], [address] Monocytes/100 WBC (Bld) 8.1 % Normal 0-10 [facility] Comment on above: Performed By: #### L 100.0100, L500.2500 #### [facility] [address] [place], [address] Neutrophils/100 WBC (Bld) 70.2 % High 47-70 [facility] Comment on above: Performed By: #### L 100.0100, L500.2500 #### [facility] [address] [place], [address] Nucleated RBC (Bld) [#/Vol] 0 10*3/uL Normal 0-5 [facility] Comment on above: Performed By: #### L 100.0100, L500.2500 #### [facility] [address] [place], [address] Platelet mean volume (Bld) [Entitic vol] 9.9 fL Normal 6.2-12.0 [facility] Comment on above: Performed By: #### L 100.0100, L500.2500 #### [facility] [address] [place], [address] Platelets (Bld) [#/Vol] 197 10*3/uL Normal 150-450 [facility] Comment on above: Performed By: #### L 100.0100, L500.2500 #### [facility] [address] [place], [address] RBC (Bld) [#/Vol] 2.87 10*6/uL Low 4.6-6.2 [facility] Comment on above: Performed By: #### L 100.0100, L500.2500 #### [facility] [address] [place], [address] RDW SD 52.2 fl High 35.1-43.9 [facility] Comment on above: Performed By: #### L 100.0100, L500.2500 #### [facility] [address] [place], [address] WBC (Bld) [#/Vol] 4.4 10*3/uL Normal 4.4-11.0 [facility] Comment on above: Performed By: #### L 100.0100, L500.2500 #### [facility] [address] [place], [address] Carbon dioxide, total [Moles /volume] in Central venous bloodOrdered By: Prabhjot Andres on 03-15-2025 CO2 [Moles/Vol] 24.4 mmol/L 21.0-32.0 [facility] Chest PA and Lateralon 03-15 Chest PA and Lateral [facility] Imaging Services [address] [place] [address] Chest PA and Lateral MR#: [id number] Acct: [id number] Name: CARLITOS SWEENEY Rep #: [id number] : 1975 M 49 From: Remi Dunne MD PCP: Dr. Monie Alston, DO Status: REG ER Study: Chest PA and Lateral Date of Exam: 03/15/25 Exam# [id number] Ordering Dr: Prabhjot Andres DO PROCEDURE: CHEST PA AND LATERAL 03/15/2025 REASON FOR EXAM: COUGH, SHORTNESS OF BREATH TECHNIQUE: Procedure Code: RADCXR Modality: DX Procedure: CHEST PA AND LATERAL COMPARISON: 07/30/2022 FINDINGS: Devices: Left chest wall dual lead ICD in stable positioning. Lungs/Pleura: Small right basilar pleural effusion likely with adjacent atelectasis. No sizable pleural effusion on the left. Probable mild bilateral perihilar edema, coexisting consolidation not excluded. Heart/Mediastinum: Cardiomegaly. Aortic arch calcification. Bones/Soft tissues: No significant abnormality. RAD/Chest PA and Lateral IMPRESSION: Cardiomegaly, with small right basilar pleural effusion. Bilateral perihilar airspace opacities likely represent pulmonary edema, with coexisting consolidation not excluded. Reading Location: [id number] CC: Dr. Monie Alston DO; Dr. Prabhjot Andres DO Property Loss [employer] Claim Adjuster: Signed Normal [facility] Chloride assayOrdered By: Scarlet Andres on 03-15-2025 Chloride [Moles/Vol] 97 mmol/L Low 98-108 [facility] Emergency Department Summary on 03-15-2025 Emergency Department Summary [facility] Medical Records Department [address] [place] [address] Emergency Department Summary 03/15/25 MR#: [id number] Acct: [id number] Name: CARLITOS SWEENEY Rep #: [id number] : 1975 49 From: Prabhjot Andres DO PCP: Dr. Monie Alston DO Status:REG ER Location: ED HPI History of Present Illness Chief Complaint: Shortness of Breath [facility] Medical History Inferior vena caval stenosis Steel [...] 800 mg tablet 800 mg PO TID KIDNEY DISEASE 07/14 Unknown History aspirin 81 mg tablet,delayed 81 mg PO DAILY 02/04/24 Unknown Hi story release (Adult Low Dose Aspirin) Held on 03/15/25. Instructions: PACEMAKER BATTERY CHANGE atorvastatin 40 mg tablet (Lipitor) 40 mg PO DAILY 02/04/24 Unknown History albuterol sulfate 90 mcg/actuation 2 puff inhalation Q4H PRN PRN Unknown History aerosol inhaler wheezing carvedilol 3.125 mg tablet 3.125 mg PO BID 12/08/24 Unknown H istory isosorbide mononitrate 30 mg 30 mg PO BID 12/08/24 Unknown Hist ory tablet,extended release 24 hr nicotine 21 mg/24 hr daily 1 patch topical DAILY 12/08/24 Unk nown History transdermal patch buspirone 5 mg tablet 5 mg PO TID 03/15/25 Unknown Histo ry hydralazine 25 mg tablet 25 mg PO TID 03/15/25 Unknown Hist ory ondansetron HCl 4 mg tablet 4 mg PO Q8H PRN PRN nausea and Unknown History vomiting Allergy/AdvReac Type Severity Reaction Status Date / Time Iodinated Contrast Media Allergy Fever and Verified 03/15/25 21:22 (CONTRASTS) skin rash Penicillins Allergy Anaphylaxis Verified 03/15/25 21:22 cyclobenzaprine (From AdvReac dizzy, Verified 03/15/25 21:22 Flexeril) faints tramadol (From Ultram) AdvReac Rash Verified 03/15/25 21:22 Family History Father Diabetes Heart disease Hypertension [...] in: walking frequency: daily seatbelt use: always EXAM Physical Exam Const Vital Signs: 03/15/25 21:21 03/15/25 23:00 Temperature 97.5 F L Temperature Source Oral Pulse Rate 95 83 Respiratory Rate 18 19 H Blood Pressure 165/97 H 150/92 H Blood Pressure Mean 119 111 Pulse Ox 97 99 Oxygen Delivery Method Room Air Room Air MDM MDM MDM Narrative Medical decision making narrative: HISTORY OF PRESENT ILLNESS: Chief complaint: Shortness of breath 49-year-old male presents with concern for shortness of breath. Has a past medical history significant for CAD, hyperlipidemia, tobacco use disorder, nonischemic cardiomyopathy status post ICD, hypertension, ESRD s/p renal transplant failure rejection, anemia of chronic disease presents with 1 week of shortness of breath. Notes compliance to dialysis. States he gets dialysis daily through a right upper extremity fistula. States he had a complete treatment today. Denies leg swelling. Does know intermittent fevers and a cough that is nonproductive. No sick contacts. Is concerned he may have pneumonia. H (more content not included)... Normal [facility] Eosinophil percentageOrdered By: Prabhjot Andres on 03-15-2025 Eosinophils/100 WBC (Bld) 2.5 % 0-5 [facility] Erythrocyte distribution wid th ratioOrdered By: Prabhjot Andres on 03-15-2025 Erythrocyte distribution width (RBC) [Ratio] 16.5 % High 11.6-14.6 [facility] Erythrocyte distribution wid th standard deviationOrdered By: Prabhjot Andres on 03-15-2025 Erythrocyte distribution width (RBC) [Ratio] 52.2 fl High 35.1-43.9 [facility] Glomerular filtration rate ( GFR) estimation/1.73 sq m using serum, plasma, or whole bOrdered By: Prabhjot Andres on 03-15-2025 GFR/1.73 sq M.predicted among non-blacks MDRD (S/P/Bld) [Vol rate/Area] 4 mL/min/{1.73_m2} Low >60 [facility] Comment on above: mL/min/1.73m2 CKD-EP I Creatinine Equation (2020) Hematocrit Auto (Bld) [Volum e fraction]Ordered By: Prabhjot Andres on 03-15-2025 Hematocrit (Bld) [Volume fraction] 25.2 % Low 40-54 [facility] Hemoglobin measurementOrdere d By: Prabhjot Andres on 03-15-2025 Hemoglobin (Bld) [Mass/Vol] 8.0 g/dL Low 13.0-16.5 [facility] Immature granulocytes/100 WB C Auto (Bld)Ordered By: Prabhjot Andres on 03-15-2025 Immature granulocytes/100 WBC (Bld) 0.500 % 0.0-0.9 [facility] Comment on above: IG% - Immature Granu locytes (promyelocytes, myelocytes and metamyelocytes) > 1% indicates that a LEFT SHIFT is Present. Influenza virus A and B and SARS-CoV-2 (COVID-19) and Respiratory syncytial virus RNAOrdered By: Prabhjot Andres on 03-15-2025 SARS-CoV-2 (COVID-19) RNA JAMILAH+probe Ql (Unsp spec) [facility] SARS-CoV-2 (COVID-19) RNA JAMILAH+probe Ql (Unsp spec) [facility] M100.678on 03-15-2025 M100.678 SARS-CoV-2 (COVID 19 ) Negative INFLUENZA A Negative INFLUENZA B Negative RSV PCR Negative Normal [facility] Comment on above: Performed By: #### M 100.678 ####[facility] [address] [place], [place], [id number] MCV (mean corpuscular volume ) determinationOrdered By: Prabhjot Andres on 03-15-2025 MCV (RBC) [Entitic vol] 87.8 fL 80-94 [facility] Mean corpuscular hemoglobin (MCH) determinationOrdered By: Prabhjot Andres on 03-15-2025 MCH (RBC) [Entitic mass] 27.9 pg 27.0-32.0 [facility] Mean corpuscular hemoglobin concentration (MCHC) determinationOrdered By: Prabhjot Andres on 03-15-2025 MCHC (RBC) [Mass/Vol] 31.7 g/dL Low 32-36 [facility] Mean platelet volume determi nationOrdered By: Prabhjot Andres on 03-15-2025 Platelet mean volume (Bld) [Entitic vol] 9.9 fL 6.2-12.0 [facility] Monocyte percentageOrdered B y: Prabhjot Andres on 03-15-2025 Monocytes/100 WBC (Bld) 8.1 % 0-10 [facility] Neutrophil percentageOrdered By: Prabhjot Andres on 03-15-2025 Neutrophils/100 WBC (Bld) 70.2 % High 47-70 [facility] Nucleated red blood cell per centageOrdered By: Prabhjot Andres on 03-15-2025 Nucleated RBC/100 WBC (Bld) [Ratio] 0 % 0-5 [facility] Platelet countOrdered By: Scarlet Andres on 03-15-2025 Platelets (Bld) [#/Vol] 197 10*3/uL 150-450 [facility] Potassium measurement (mass/ volume)Ordered By: Prabhjot Andres on 03-15-2025 Potassium (Unsp spec) [Mass/Vol] 4.9 mmol/L 3.3-5.1 [facility] RBC Auto (Bld) [#/Vol]Ordere d By: Prabhjot Andres on 03-15-2025 RBC (Bld) [#/Vol] 2.87 10*6/uL Low 4.6-6.2 [facility] Serum creatinine measurement (mass/volume)Ordered By: Prabhjot Andres on 03-15-2025 Creatinine [Mass/Vol] 14.60 mg/dL Critically high 0.70-1.2 0 [facility] Center Comment on above: Critical Result(s) C alled at: 2313 by: SUNITHA FINLEY Results read back by same. Serum glucose measurement (m ass/volume)Ordered By: Prabhjot Andres on 03-15-2025 Glucose [Mass/Vol] 105 mg/dL High 70-99 [facility] Serum or plasma calcium kassandra urement (mass/volume)Ordered By: Prabhjot Andres on 03-15-2025 Calcium [Mass/Vol] 8.0 mg/dL 7.6-11.0 [facility] Serum or plasma urea nitroge n measurement (mass/volume)Ordered By: Prabhjot Andres on 03-15-2025 Urea nitrogen [Mass/Vol] 67 mg/dL High 4-19 [facility] Sodium levelOrdered By: Navarro Andres on 03-15-2025 Sodium [Moles/Vol] 140 mmol/L 133-145 [facility] White blood cell (WBC) count Ordered By: Prabhjot Andres on 03-15-2025 WBC (Bld) [#/Vol] 4.4 10*3/uL 4.4-11.0 [facility] XR CHEST 2 VIEWSon XR CHEST 2 [...] 03/11/2025 8:57:16 AM Ordering Provider: ROBERT Street [facility] ABO and Rh group panel (Bld) on 02-15-2025 ABO group Nom (Bld) O Normal [facility] Comment on above: Performed By: #### 5 7021-8 #### MARTINEZ Al ([id number]) [facility] ([facility]) [address] [place] [address] 17977 D Ag Ql (Bld) Positive Normal Comment on above: Performed By: #### 5 7021-8 #### MARTINEZ Al ([id number]) [facility] ([facility]) [address] [place] [address] 34035 Amylaseon 02-15-2025 Amylase [Catalytic activity/Vol] 74 U/L Normal 29-103 Comment on above: Performed By: #### 5 7021-8 #### MARTINEZ Al ([id number]) [facility] ([facility]) [address] [place], [place] [id number] C peptideon 02-15-2025 C peptide [Mass/Vol] 7.3 ng/mL High 0.7-3.9 [facility] Comment on above: Performed By: #### 1 9123-9 #### MARTINEZ Al ([id number]) [facility] ([facility]) [address] [place] [address] 45147 CBC panel Auto (Bld)on 02-15 Erythrocyte distribution width (RBC) [Ratio] 16.5 % High 11.5-14.5 Comment on above: Performed By: #### 5 8410-2 #### MARTINEZ Al ([id number]) [facility] ([facility]) [address] [place] [address] 06547 Hematocrit (Bld) [Volume fraction] 21.9 % Low 41.0-52.0 Comment on above: Performed By: #### 5 8410-2 #### MARTINEZ Al ([id number]) [facility] ([facility]) [address] [place] [address] 45011 Hemoglobin (Bld) [Mass/Vol] 6.7 g/dL Low 13.5-17.5 Comment on above: Performed By: #### 5 8410-2 #### MARTINEZ Al ([id number]) [facility] ([facility]) [address] [place] [address] MCH (RBC) [Entitic mass] 28.2 pg Normal 26.0-34.0 Comment on above: Performed By: #### 5 8410-2 #### MARTINEZ Al ([id number]) [facility] ([facility]) [address] [place] [address] 22405 MCHC (RBC) [Mass/Vol] 30.6 g/dL Low 32.0-36.0 [facility] Comment on above: Performed By: #### 5 8410-2 #### MARTINEZ Al ([id number]) [facility] ([facility]) [address] [place] [address] 59530 MCV (RBC) [Entitic vol] 92 fL Normal 80-100 Comment on above: Performed By: #### 5 8410-2 #### MARTINEZ Al ([id number]) [facility] ([facility]) [address] [place] [address] 98944 Nucleated RBC/100 WBC (Bld) [Ratio] 0.0 /100 WBCs Normal 0.0-0.0 Comment on above: Performed By: #### 5 8410-2 #### MARTINEZ Al ([id number]) [facility] ([facility]) [address] [place] [address] 23307 Platelets (Bld) [#/Vol] 204 x10*3/uL Normal 150-450 Comment on above: Performed By: #### 5 8410-2 #### MARTINEZ Al ([id number]) [facility] ([facility]) [address] [place] [address] 68994 RBC (Bld) [#/Vol] 2.38 x10*6/uL Low 4.50-5.90 [facility] Comment on above: Performed By: #### 5 8410-2 #### MARTINEZ Al ([id number]) [facility] ([facility]) [address] [place] [address] 01428 WBC (Bld) [#/Vol] 5.3 x10*3/uL Normal 4.4-11.3 [facility] Comment on above: Performed By: #### 5 8410-2 #### MARTINEZ Al ([id number]) [facility] ([facility]) [address] [place] [address] 70848 Coagulation tissue factor in ducedon 02-15-2025 PT Coag (PPP) [Time] 12.1 s Normal 9.8-12.4 [facility] Comment on above: Performed By: #### 5 902-2 #### MARTINEZ Al ([id number]) [facility] ([facility]) [address] [place] [address] 18679 Creatinineon 02-15-2025 Creatinine [Mass/Vol] 16.54 mg/dL High 0.50-1.[address] [facility] Comment on above: Performed By: #### 5 7021-8 #### MARTINEZ Al ([id number]) [facility] ([facility]) [address] [place] [address] 96175 Creatinine [Mass/Vol]on 01-22 Glomerular filtration rate 3 mL/min/1.73m*2 Low >60 Comment on above: Result Comment: Calc ulations of estimated GFR are performed using the 2020 CKD-EPI Study Refit equation without the race variable for the IDMS-Traceable creatinine methods. https://jasn.asnjournals.org/content/early//ASN.631474 0774 Performed By: #### 5 7021-8 #### MARTINEZ Al ([id number]) [facility] ([facility]) [address] [place] [address] 92074 Cytomegalovirus Ab.IgG avidi tyon 02-15-2025 CMV IgG avidity IA [Ratio] Reactive Abnormal Nonreactive Comment on above: Performed By: #### 1 9123-9 #### MARTINEZ Al ([id number]) [facility] ([facility]) [address] [place] [address] DRUG PROFILE 9, BLOOD W/ REF BOAZ TO CONFIRMATIONon 02-15-2025 Amphetamines Screen Ql Negative [facility] Comment on above: Result Comment: Pres umptively Negative by immunoassay. Testing by mass spectrometry is available on request. Interpretive Information: Amphetamines Screen, S/P Methodology: Immunoassay Positive Cutoff: 20 ng/mL Performed By: #### 2 4323-8 #### MARTINEZ Al ([id number]) [facility] ([facility]) [address] [place] [address] Annotation comment [Interpretation] Narrative See Note [facility] Comment on above: Result Comment: Inte rpretive [...] developed and its performance characteristics determined by [facility]. It has not been cleared or approved by the US Food and Drug Administration. This test was performed in a CLIA certified laboratory and is intended for clinical purposes. Performed By: [facility] [address] [place] [address] 75333 Protein Specialist: Waqas Nelson MD, PhD CLIA Number: [id number] Performed By: #### 2 4323-8 #### MARTINEZ Al ([id number]) [facility] ([facility]) [address] [place] [address] Barbiturates Screen Ql Negative [facility] Comment on above: Result Comment: Pres umptively Negative by immunoassay. Testing by mass spectrometry is available on request. Interpretive Information: Barbiturates Screen, S/P Methodology: Immunoassay Positive Cutoff: 50 ng/mL Performed By: #### 2 4323-8 #### MARTINEZ Al ([id number]) [facility] ([facility]) [address] [place] [address] Benzodiazepines Screen Ql Negative [facility] Comment on above: Result Comment: Pres umptively Negative by immunoassay. Testing by mass spectrometry is available on request. Interpretive Information: Benzodiazepines Screen, S/P Methodology: Immunoassay Positive Cutoff: 50 ng/mL Performed By: #### 2 4323-8 #### MARTINEZ Al ([id number]) [facility] ([facility]) [address] [place] [address] Buprenorphine [Mass/Vol] Negative Normal Comment on above: Result Comment: Pres umptively Negative by immunoassay. Testing by mass spectrometry is available on request. Interpretive Information: Buprenorphine Screen, S/P Methodology: Immunoassay Positive Cutoff: 1 ng/mL Performed By: #### 2 4323-8 #### MARTINEZ TALBERT L ([id number]) [facility] ([facility]) [address] [place] [address] Cannabinoids Screen Ql Negative Normal Comment on above: Result Comment: Pres umptively Negative by immunoassay. Testing by mass spectrometry is available on request. Interpretive Information: Carboxy-THC Screen, S/P Methodology: Immunoassay Positive Cutoff: 20 ng/mL This test does not distinguish between the delta-8 and delta-9 forms of Carboxy-THC or their metabolites. Performed By: #### 2 4323-8 #### MARTINEZ Al ([id number]) [facility] ([facility]) [address] [place] [address] Cocaine Screen Ql Negative Normal [facility] Comment on above: Result Comment: Pres umptively Negative by immunoassay. Testing by mass spectrometry is available on request. Interpretive Information: Cocaine Screen, S/P Methodology: Immunoassay Positive Cutoff: 20 ng/mL Performed By: #### 2 4323-8 #### MARTINEZ CERDAMOWINDY L ([id number]) [facility] ([facility]) [address] [place] [address] Methadone Screen Ql Negative Normal [facility] Comment on above: Result Comment: Pres umptively Negative by immunoassay. Testing by mass spectrometry is available on request. Interpretive Information: Methadone Screen, S/P Methodology: Immunoassay Positive Cutoff: 25 ng/mL Performed By: #### 2 4323-8 #### MARTINEZ CERDAMOALYSAER L ([id number]) [facility] ([facility]) [address] [place] [address] Methamphetamine Ql Negative Normal [facility] Comment on above: Result Comment: Pres umptively Negative by immunoassay. Testing by mass spectrometry is available on request. Interpretive Information: Methamphetamine Screen, S/P Methodology: Immunoassay Positive Cutoff: 20 ng/mL Performed By: #### 2 4323-8 #### MARTINEZ Al ([id number]) [facility] ([facility]) [address] [place] [address] Opiates Screen Ql Negative Normal [facility] Comment on above: Result Comment: Pres umptively Negative by immunoassay. Testing by mass spectrometry is available on request. Interpretive Information: Opiates Screen, S/P Methodology: Immunoassay Positive Cutoff: 20 ng/mL Performed By: #### 2 4323-8 #### MARTINEZ TALBERT L ([id number]) [facility] ([facility]) [address] [place] [address] oxyCODONE Ql Negative Normal Comment on above: Result Comment: Pres umptively Negative by immunoassay. Testing by mass spectrometry is available on request. Interpretive Information: Oxycodone/Oxymorphone Screen, S/P Methodology: Immunoassay Positive Cutoff: 20 ng/mL Performed By: #### 2 4323-8 #### MARTINEZ TALBERT L ([id number]) [facility] ([facility]) [address] [place] [address] Phencyclidine Screen Ql Negative Normal Comment on above: Result Comment: Pres umptively Negative by immunoassay. Testing by mass spectrometry is available on request. Interpretive Information: Phencyclidine Screen, S/P Methodology: Immunoassay Positive Cutoff: 10 ng/mL Performed By: #### 2 4323-8 #### MARTINEZ TALBERT L ([id number]) [facility] ([facility]) [address] [place] [address] YADIEL-DAVALOS VIRUS ANTIBODY PANELon 02-15-2025 EBV capsid IgG IA Qn (S) Positive Abnormal Negative Comment on above: Order Comment: EBV I NTERPRETATION CHARTPRIMARY ACUTEVCA-IGG: +/-VCA-IGM: +/-EA-IGG: +/-NA-IGG: -LATE ACUTEVCA-IGG: +VCA-IGM: +/-EA-IGG: +/-NA-IGG: +/-RECOVERINGVCA-IGG: +VCA-IGM: -EA-IGG: +NA-IGG: -PREVIOUS INFECTIONVCA-IGG: +VCA-IGM: -EA-IGG: -NA-IGG: +/- Performed By: #### 1 9123-9 #### MARTINEZ Al ([id number]) [facility] ([facility]) [address] [place] [address] EBV capsid IgM IA Qn (S) Negative Normal Negative Comment on above: Order Comment: EBV I NTERPRETATION CHARTPRIMARY ACUTEVCA-IGG: +/-VCA-IGM: +/-EA-IGG: +/-NA-IGG: -LATE ACUTEVCA-IGG: +VCA-IGM: +/-EA-IGG: +/-NA-IGG: +/-RECOVERINGVCA-IGG: +VCA-IGM: -EA-IGG: +NA-IGG: -PREVIOUS INFECTIONVCA-IGG: +VCA-IGM: -EA-IGG: -NA-IGG: +/- Performed By: #### 1 9123-9 #### MARTINEZ Al ([id number]) [facility] ([facility]) [address] [place] [address] EBV early IgG Ql (S) Positive Abnormal Negative [facility] Comment on above: Order Comment: EBV I NTERPRETATION CHARTPRIMARY ACUTEVCA-IGG: +/-VCA-IGM: +/-EA-IGG: +/-NA-IGG: -LATE ACUTEVCA-IGG: +VCA-IGM: +/-EA-IGG: +/-NA-IGG: +/-RECOVERINGVCA-IGG: +VCA-IGM: -EA-IGG: +NA-IGG: -PREVIOUS INFECTIONVCA-IGG: +VCA-IGM: -EA-IGG: -NA-IGG: +/- Performed By: #### 1 9123-9 #### MARTINEZ Al ([id number]) [facility] ([facility]) [address] [place] [address] EBV nuclear Ab Ql (S) Positive Abnormal Negative [facility] Comment on above: Order Comment: EBV I NTERPRETATION CHARTPRIMARY ACUTEVCA-IGG: +/-VCA-IGM: +/-EA-IGG: +/-NA-IGG: -LATE ACUTEVCA-IGG: +VCA-IGM: +/-EA-IGG: +/-NA-IGG: +/-RECOVERINGVCA-IGG: +VCA-IGM: -EA-IGG: +NA-IGG: -PREVIOUS INFECTIONVCA-IGG: +VCA-IGM: -EA-IGG: -NA-IGG: +/- Performed By: #### 1 9123-9 #### MARTINEZ Al ([id number]) [facility] ([facility]) [address] [place] [address] FLOW AUTOCROSSMATCHon 2024 FLOW AUTOCROSSMATCH Normal [facility] Comment on above: Order Comment: Test performed at:[facility], [address] [place] [address] Performed By: #### 1 9123-9 #### MARTINEZ Al ([id number]) [facility] ([facility]) [address] [place] [address] HLA RESULTS See Attached Normal Comment on above: Order Comment: Test performed at:[facility], [address] [place] [address] Performed By: #### 1 9123-9 #### MARTINEZ Al ([id number]) [facility] ([facility]) [address] [place] [address] Performed By: #### 2 4323-8 #### MARTINEZ Al ([id number]) [facility] ([facility]) [address] [place] [address] HIV 1+2 Ab+HIV1 p24 Agon HIV 1+2 Ab+HIV1 p24 Ag IA Ql Non-Reactive Normal Nonreactive Comment on above: Order Comment: HIV A g/Ab screen is performed using the Siemens [employer] HIV Ag/Ab Combo assay which detects the presence of HIV p24 antigen as well as antibodies to HIV-1 (Group M and O) and HIV-2.No laboratory evidence of HIV infection. If acute HIV infection is suspected, consider testing for HIV RNA by PCR (viral load). Performed By: #### 5 7021-8 #### MARTINEZ Al ([id number]) [facility] ([facility]) [address] [place] [address] HLA DNA TYPE PANELon 025 HLA-A AND B AND C (class I) typing panel Normal Comment on above: Order Comment: Test performed at:[facility] [place] [address] Performed By: #### 2 4323-8 #### MARTINEZ Al ([id number]) [facility] ([facility]) [address] [place], [place] [address] HLA-DP2 Ql (Bld/Tiss) Normal [facility] Comment on above: Order Comment: Test performed at:[facility] LaboratoryK[facility], [address] [place], [place] [address] Performed By: #### 2 4323-8 #### MARTINEZ Al ([id number]) [facility] ([facility]) [address] [place] [address] HLA-DQB1 High resolution Nom (Bld/Tiss) Normal Comment on above: Order Comment: Test performed at:[facility] LaboratoryK[facility], [address] [place], [place] [address] Performed By: #### 2 4323-8 #### MARTINZE Al ([id number]) [facility] ([facility]) [address] [place] [address] 79326 HLA-DRB1 High resolution Nom (Bld/Tiss) Normal Comment on above: Order Comment: Test performed at:[facility], [address] [place] [address] Performed By: #### 2 4323-8 #### MARTINEZ Al ([id number]) [facility] ([facility]) [address] [place] [address] 27620 HLA NEW KIDNEY,K/P EVALUATIO N PANELon 02-15-2025 FLOW AUTOCROSSMATCH Normal [facility] Comment on above: Order Comment: Test performed at:[facility], [address] [place], [place] [address]Test performed at:[facility], [address] [place], [place] [address] Performed By: #### 1 9123-9 #### MARTINEZ Al ([id number]) [facility] ([facility]) [address] [place], [place] [address] HLA CLASS I AB SCREEN, Normal Comment on above: Order Comment: Test performed at:[facility], [address] [place], [place] [address]Test performed at:[facility]St[facility], [address] [place], [place] [address] Performed By: #### 1 9123-9 #### MARTINEZ Al ([id number]) [facility] ([facility]) [address] [place], [place] [address] HLA CLASS II AB SCREEN, Normal Comment on above: Order Comment: Test performed at:[facility]St[facility], [address] [place] [address] 399[address]Vhaa performed at:[facility] LaboratoryA[facility], [address] [place] [address] Performed By: #### 1 9123-9 #### MARTINEZ Al ([id number]) [facility] ([facility]) [address] [place] [address] 00361 HLA RESULTS Collection only Normal [facility] Comment on above: Order Comment: Test performed at:[facility] LaboratoryA[facility], [address] [place] [address] 656[address]Rjnt performed at:[facility] LaboratoryA[facility], [address] [place], [place] [address] Performed By: #### 1 9123-9 #### MARTINEZ Al ([id number]) [facility] ([facility]) [address] [place], [place] [address] HLA-A AND B AND C (class I) typing panel Normal Comment on above: Order Comment: Test performed at:[facility] LaboratoryW.[facility], [address] [place], [place] [address]Test performed at:[facility] LaboratoryA[facility], [address] [place], [place] [address] Performed By: #### 1 9123-9 #### MARTINEZ Al ([id number]) [facility] ([facility]) [address] [place] [address] 57018 HLA-DP2 Ql (Bld/Tiss) Normal [facility] Comment on above: Order Comment: Test performed at:[facility] LaboratoryA[facility], [address] [place] [address] 73742Dgaf performed at:[facility] LaboratoryOM[facility], [address] [place] [address] Performed By: #### 1 9123-9 #### MARTINEZ Al ([id number]) [facility] ([facility]) [address] [place] [address] HLA-DQB1 High resolution Nom (Bld/Tiss) Normal Comment on above: Order Comment: Test performed at:[facility], [address] [place], [place] [address]Test performed at:[facility] LaboratoryA[facility], [address] [place] [address] Performed By: #### 1 9123-9 #### MARTINEZ Al ([id number]) [facility] ([facility]) [address] [place] [address] HLA-DRB1 High resolution Nom (Bld/Tiss) Normal Comment on above: Order Comment: Test performed at:[facility] LaboratoryA[facility], [address] [place], [place] [address]Test performed at:[facility], [address] [place] [address] Performed By: #### 1 9123-9 #### MARTINEZ Al ([id number]) [facility] ([facility]) [address] [place] [address] HLA TRANSPLANT ANTIBODY PANE Deng 02-15-2025 HLA-A+B+C (class I) Ab (S) Normal Comment on above: Order Comment: Test performed at:[facility] LaboratoryA[facility], [address] [place] [address] Performed By: #### 2 4323-8 #### MARTINEZ Al ([id number]) [facility] ([facility]) [address] [place] [address] 64357 HLA-DP+DQ+DR (class II) Ab (S) Normal Comment on above: Order Comment: Test performed at:[facility] LaboratorySt[facility], [address] [place] [address] Performed By: #### 2 4323-8 #### MARTINEZ Al ([id number]) [facility] ([facility]) [address] [place] [address] HbA1c (Bld) [Mass fraction]o n 02-15-2025 Average glucose Estimated from glycated hemoglobin (Bld) [Mass/Vol] 114 mg/dL Normal Not Established Comment on above: Order Comment: Diagn osis of Diabetes-Adults Non-Diabetic: < or = 5.6% Increased risk for developing diabetes: 5.7-6.4% Diagnostic of diabetes: > or = 6.5% Performed By: #### 4 548-4 #### MARTINEZ Al ([id number]) [facility] ([facility]) [address] [place] [address] Hemoglobin A1c/Hemoglobin.to tiffany 02-15-2025 HbA1c (Bld) [Mass fraction] 5.6 % Normal See comment Comment on above: Order Comment: Diagn osis of Diabetes-Adults Non-Diabetic: < or = 5.6% Increased risk for developing diabetes: 5.7-6.4% Diagnostic of diabetes: > or = 6.5% Performed By: #### 4 548-4 #### MARTINEZ Al ([id number]) [facility] ([facility]) [address] [place], [place] [address] Hepatic function 2000 panelo n 02-15-2025 Albumin BCP dye [Mass/Vol] 4.2 g/dL Normal 3.4-5.0 Comment on above: Performed By: #### 5 7021-8 #### MARTINEZ Al ([id number]) [facility] ([facility]) [address] [place], [place] [address] ALP [Catalytic activity/Vol] 59 U/L Normal 33-120 Comment on above: Performed By: #### 5 7021-8 #### MARTINEZ Al ([id number]) [facility] ([facility]) [address] [place] [address] ALT With P-5'-P [Catalytic activity/Vol] 23 U/L Normal 10-52 Comment on above: Result Comment: Elana ents treated with Sulfasalazine may generate falsely decreased results for ALT. Performed By: #### 5 7021-8 #### MARTINEZ Al ([id number]) [facility] ([facility]) [address] [place] [address] AST With P-5'-P [Catalytic activity/Vol] 23 U/L Normal 9-39 Comment on above: Performed By: #### 5 7021-8 #### MARTINEZ Al ([id number]) [facility] ([facility]) [address] [place] [address] 15902 Bilirubin [Mass/Vol] 0.4 mg/dL Normal 0.0-1.2 [facility] Comment on above: Performed By: #### 5 7021-8 #### MARTINEZ Al ([id number]) [facility] ([facility]) [id number] [place] [address] 45242 Bilirubin.direct [Mass/Vol] 0.1 mg/dL Normal 0.0-0.3 Comment on above: Performed By: #### 5 7021-8 #### MARTINEZ Al ([id number]) [facility] ([facility]) [id number] [place] [address] 16150 Protein [Mass/Vol] 6.7 g/dL Normal 6.4-8.2 [facility] Comment on above: Performed By: #### 5 7021-8 #### MARTINEZ Al ([id number]) [facility] ([facility]) [address] [place] [address] 93616 Hepatitis B virus core Abon 02-15-2025 HBV core Ab Ql (S) Non-Reactive Normal Nonreactive [facility] Comment on above: Performed By: #### 1 9123-9 #### MARTINEZ Al ([id number]) [facility] ([facility]) [address] [place] [address] 17931 Hepatitis B virus surface Ab on 02-15-2025 HBV surface Ab Qn (S) 980.4 mIU/mL High <10.0 [facility] Comment on above: Result Comment: Inte rpretive Criteria: <10 mIU/mL Nonreactive >=10 mIU/mL Reactive Biotin interference may cause falsely decreased results. Patients taking a Biotin dose of up to 5 mg/day should refrain from taking Biotin for 24 hours before sample collection. Providers may contact their local laboratory for further information. Performed By: #### 5 7021-8 #### MARTINEZ Al ([id number]) [facility] ([facility]) [address] [place] [address] 83777 Hepatitis B virus surface Ag on 02-15-2025 HBV surface Ag IA Ql Non-Reactive Normal Nonreactive [facility] Comment on above: Result Comment: Biot in interference may cause falsely decreased results. Patients taking a Biotin dose of up to 5 mg/day should refrain from taking Biotin for 24 hours before sample collection. Providers may contact their local laboratory for further information. Performed By: #### 5 7021-8 #### MARTINEZ Al ([id number]) [facility] ([facility]) [address] [place] [address] 30225 Hepatitis C virus Abon 02-15 HCV Ab Ql (S) Non-Reactive Normal Nonreactive [facility] Comment on above: Result Comment: Resu lts from patients taking biotin supplements or receiving high-dose biotin therapy should be interpreted with caution due to possible interference with this test. Providers may contact their local laboratory for further information. Performed By: #### 1 9123-9 #### MARTINEZ Al ([id number]) [facility] ([facility]) [address] [place] [address] 65871 Homocysteineon 02-15-2025 Homocysteine [Moles/Vol] 41.59 umol/L High 5.00-13.90 Comment on above: Order Comment: Refer ence values apply to fasting specimens only. Non-fasting specimens produce slightly higher and likely clinically insignificant changes in homocysteine levels. Performed By: #### 1 9123-9 #### MARTINEZ Al ([id number]) [facility] ([facility]) [address] [place] [address] 22234 LIPID PANEL NON-FASTINGon Cholesterol [Mass/Vol] 95 mg/dL Normal 0-199 Comment on above: Result Comment: Age Desirable [...] 128(S5).Adult guidelines reference: NCEP ATPIII Guidelines,AMINTA 2001, 258:2486-97 Venipuncture immediately after or during the administration of Metamizole may lead to falsely low results. Testing should be performed immediately prior to Metamizole dosing. Performed By: #### 5 7021-8 #### MARTINEZ Al ([id number]) [facility] ([facility]) [address] [place] [address] 77179 Cholesterol in HDL [Mass/Vol] 37.6 mg/dL Normal Comment on above: Result Comment: Age Very Low Low Normal High 0-19 Y < 35 < 40 40-45 ---- 20-24 Y ---- < 40 >45 ---- >24 Y ---- < 40 40-60 >60 Performed By: #### 5 7021-8 #### MARTINEZ Al ([id number]) [facility] ([facility]) [id number] [place] [address] 31235 CHOLESTEROL/HDL RATIO 2.5 Normal [facility] Comment on above: Result Comment: Ref Values Desirable < 3.4 High Risk > 5.0 Performed By: #### 5 7021-8 #### MARTINEZ Al ([id number]) [facility] ([facility]) [address] [place] [address] NON-HDL CHOLESTEROL 57 mg/dL Normal 0-149 [facility] Comment on above: Result Comment: Age Desiable Borderline High High Very High 0-19 Y 0 - 119 120 - 144 >/= 145 >/= 160 20-24 Y 0 - 149 150 - 189 >/= 190 ---- >24 Y 30 MG/DL ABOVE LDL CHOLESTEROL GOAL Performed By: #### 5 7021-8 #### MARTINEZ Al ([id number]) [facility] ([facility]) [id number] [place] [address] 28245 M. tuberculosis stim IFN-g a nd spot count panel (Bld)on 02-15-2025 Gamma interferon negative control spot count (Bld) [#] Passed [facility] Comment on above: Performed By: #### 2 4323-8 #### MARTINEZ Al ([id number]) [facility] ([facility]) [address] [place] [address] 38010 M. tuberculosis stim IFN-g CFP10 Ag spot count (Bld) [#] 0 [facility] Comment on above: Performed By: #### 2 4323-8 #### MARTINEZ Al ([id number]) [facility] ([facility]) [id number] [place] [address] 03171 M. tuberculosis stim IFN-g ESAT-6 Ag spot count (Bld) [#] 0 [facility] Comment on above: Performed By: #### 2 4323-8 #### MARTINEZ Al ([id number]) [facility] ([facility]) [address] [place] [address] 91797 M. tuberculosis stim IFN-g Ql (Bld) [Interp] Negative Normal Negative Comment on above: Result Comment: A negative [...] By: #### 2 4323-8 #### MARTINEZ Al ([id number]) [facility] ([facility]) [address] [place] [address] 61644 Mitogen stimulated gamma interferon positive control spot count (Bld) [#] Passed [facility] Comment on above: Result Comment: For additional information, please refer to [email or web address].[employer]/faq/INM473 (This link is being provided for informational/ educational purposes only.) Performed By: #### 2 4323-8 #### MARTINEZ Al ([id number]) [facility] ([facility]) [address] [place] [address] 78596 NICOTINE AND METABOLITES,Son 02-15-2025 Cotinine [Mass/Vol] 177 ng/mL Normal [facility] Comment on above: Performed By: #### 2 4323-8 #### MARTINEZ Al ([id number]) [facility] ([facility]) [address] [place] [address] 61245 Nicotine [Mass/Vol] <5 [facility] Comment on above: Result Comment: INTE RPRETIVE [...] developed and its performance characteristics determined by [facility]. It has not been cleared or approved by the [place] Food and Drug Administration. This test was performed in a CLIA certified laboratory and is intended for clinical purposes. Performed By: [facility] [address] [place] [address] Protein Specialist: Waqas Nelson MD, PhD CLIA Number: [id number] Performed By: #### 2 4323-8 #### MARTINEZ Al ([id number]) [facility] ([facility]) [address] [place] [address] 53150 PSA, TOTAL AND FREEon 2024 Free PSA [Mass/Vol] 0.1 ng/mL Normal [facility] Comment on above: Performed By: #### 2 4323-8 #### MARTINEZ Al ([id number]) [facility] ([facility]) [address] [place] [address] 34112 Free PSA/Total PSA [Mass fraction] 25 % Normal Comment on above: Result Comment: INTE RPRETIVE INFORMATION: Prostate Specific Antigen, Free Percentage Specialty [employer] uses the [employer] Free PSA electrochemiluminescent immunoassay [...] prostate cancer in individual patients. Performed By: [facility] [address] [place] [address]4 Protein Specialist: Waqas Nelson MD, PhD [place] Number: [id number] Performed By: #### 2 4323-8 #### MARTINEZ Al ([id number]) [facility] ([facility]) [address] [place] [address] 82723 Prostate specific Ag IA [Mass/Vol] 0.4 ng/mL Normal 0.0-4.0 Comment on above: Result Comment: INTE RPRETIVE [...] By: #### 2 4323-8 #### MARTINEZ Al ([id number]) [facility] ([facility]) [address] [place] [address] 67604 PT Coag (PPP) [Time]on 02-15 INR Coag (PPP) [Relative time] 1.1 Normal 0.9-1.1 Comment on above: Performed By: #### 5 902-2 #### MARTINEZ Al ([id number]) [facility] ([facility]) [address] [place] [address] 56066 Phosphateon 02-15-2025 Phosphate [Mass/Vol] 10.2 mg/dL High 2.5-4.9 [facility] Comment on above: Performed By: #### 5 7021-8 #### MARTINEZ Al ([id number]) [facility] ([facility]) [address] [place] [address] 35283 Treponema pallidum Ab.IgG+Ig Mon 02-15-2025 T. pallidum IgG+IgM IA Ql (S) Non-Reactive Normal Nonreactive Comment on above: Result Comment: No s ignificant level of Treponema pallidum antibody detected. Repeat testing in 2 to 4 weeks may be considered if early infection or incubating syphilis infection is suspected. Performed By: #### 1 9123-9 #### MARTINEZ Al ([id number]) [facility] ([facility]) [address] [place] [address] 96497 Urea nitrogenon 02-15-2025 Urea nitrogen [Mass/Vol] 90 mg/dL High 6-23 Comment on above: Performed By: #### 5 7021-8 #### MARTINEZ Al ([id number]) [facility] ([facility]) [address] [place] [address] 80668 VZV IgG IA Ql (S)on 02-16-20 VARICELLA ZOSTER IGG INDEX 7.5 AI High <=0.8 Comment on above: Order Comment: NEGAT RAFITA: [...] By: #### 1 9123-9 #### MARTINEZ Al ([id number]) [facility] ([facility]) [address] [place] [address] 86153 Varicella zoster virus Ab.Ig Brendan 02-15-2025 VZV IgG IA Ql (S) Positive Abnormal Negative [facility] Comment on above: Order Comment: NEGAT RAFITA: [...] By: #### 1 9123-9 #### MARTINEZ Al ([id number]) [facility] ([facility]) [address] [place] [address] .Auto Diffon 01-31-2025 Basophil, Absolute 0.0 10 3/mcL Normal 0.0-0.3 [facility] Comment on above: Performed By: #### C MP, MG, GFR, ANEU, CBC, ADIFF #### [address] [address] Basophils/100 WBC (Bld) 0.4 % Normal 0.0-2.5 [facility] Comment on above: Performed By: #### C MP, MG, GFR, ANEU, CBC, ADIFF #### [address] [address] Eosinophil, Absolute 0.0 10 3/mcL Normal 0.0-0.7 [facility] Comment on above: Performed By: #### C MP, MG, GFR, ANEU, CBC, ADIFF #### [address] [address] Eosinophils/100 WBC (Bld) 0.5 % Normal 0.0-6.0 [facility] Comment on above: Performed By: #### C MP, MG, GFR, ANEU, CBC, ADIFF #### [address] [address] Lymphocyte, Absolute 1.1 10 3/mcL Normal 0.9-4.3 [facility] Comment on above: Performed By: #### C MP, MG, GFR, ANEU, CBC, ADIFF #### [address] [address] Lymphocytes/100 WBC (Bld) 17.2 % Low 20.0-40.0 [facility] Comment on above: Performed By: #### C MP, MG, GFR, ANEU, CBC, ADIFF #### [address] [address] Monocyte, Absolute 0.5 10 3/mcL Normal 0.1-1.4 [facility] Comment on above: Performed By: #### C MP, MG, GFR, ANEU, CBC, ADIFF #### [address] [address] Monocytes/100 WBC (Bld) 7.1 % Normal 2.0-13.0 [facility] Comment on above: Performed By: #### C MP, MG, GFR, ANEU, CBC, ADIFF #### [address] [address] Neutrophils/100 WBC (Bld) 74.8 % Normal 50.0-75.0 [facility] Comment on above: Performed By: #### C MP, MG, GFR, ANEU, CBC, ADIFF #### [address] [address] .GFRon 01-31-2025 Estimated Glomerular Filtration Rate 4 ml/min/1.73sqm Normal [facility] Comment on above: Result Comment: Stages [...] MP, MG, GFR, ANEU, CBC, ADIFF #### [address] [address] .NEUABSon 01-31-2025 Neutrophil, Absolute 4.9 10 3/mcL Normal 2.3-8.1 [facility] Comment on above: Performed By: #### C MP, MG, GFR, ANEU, CBC, ADIFF #### [address] [address] BMPon 01-31-2025 BUN/Creatinine Ratio 5.1 ratio Low 10.0-22.0 [facility] Comment on above: Performed By: #### C MP, MG, GFR, ANEU, CBC, ADIFF #### [place] [address] Calcium [Mass/Vol] 8.1 mg/dL Low 8.7-10.4 [facility] Comment on above: Performed By: #### C MP, MG, GFR, ANEU, CBC, ADIFF #### [place] [address] Chloride [Moles/Vol] 96 mmol/L Low 98-110 [facility] Comment on above: Performed By: #### C MP, MG, GFR, ANEU, CBC, ADIFF #### [place] [address] CO2 [Moles/Vol] 27 mmol/L Normal 22-32 [facility] Comment on above: Performed By: #### C MP, MG, GFR, ANEU, CBC, ADIFF #### [place] [address] Creatinine [Mass/Vol] 14.74 mg/dL High 0.60-1.40 [facility] Comment on above: Result Comment: Test ing performed on Timescape analyzer using enzymatic creatinine methodology. Performed By: #### C MP, MG, GFR, ANEU, CBC, ADIFF #### [place] [address] Electrolyte Balance 13.0 mEq/L Normal 4.0-15.0 [facility] Comment on above: Performed By: #### C MP, MG, GFR, ANEU, CBC, ADIFF #### [place] [id number] Glucose [Mass/Vol] 96 mg/dL Normal 70-110 [facility] Comment on above: Performed By: #### C MP, MG, GFR, ANEU, CBC, ADIFF #### [address] [address] Potassium [Moles/Vol] 4.7 mmol/L Normal 3.5-5.0 [facility] Comment on above: Performed By: #### C MP, MG, GFR, ANEU, CBC, ADIFF #### [address] [address] Sodium [Moles/Vol] 136 mmol/L Normal 136-145 [facility] Comment on above: Performed By: #### C MP, MG, GFR, ANEU, CBC, ADIFF #### [place] [phone] Urea nitrogen [Mass/Vol] 75.0 mg/dL High 8.0-22.0 [facility] Comment on above: Performed By: #### C MP, MG, GFR, ANEU, CBC, ADIFF #### [address] [address] CBCon 01-31-2025 Erythrocyte distribution width (RBC) [Ratio] 15.6 % High 11.5-15.5 [facility] Comment on above: Performed By: #### C MP, MG, GFR, ANEU, CBC, ADIFF #### [address] [address] Hematocrit (Bld) [Volume fraction] 21.1 % Low 40.0-52.0 [facility] Comment on above: Performed By: #### C MP, MG, GFR, ANEU, CBC, ADIFF #### [address] [address] Hgb 7.0 G/dL Low 13.0-17.5 [facility] Comment on above: Performed By: #### C MP, MG, GFR, ANEU, CBC, ADIFF #### [address] [address] MCH (RBC) [Entitic mass] 28.0 pg Normal 27.0-33.0 [facility] Comment on above: Performed By: #### C MP, MG, GFR, ANEU, CBC, ADIFF #### [place] [address] MCHC 33.1 G/dL Normal 32.0-36.0 [facility] Comment on above: Performed By: #### C MP, MG, GFR, ANEU, CBC, ADIFF #### [place] [address] MCV (RBC) [Entitic vol] 84.7 fL Normal 81.0-100.0 [facility] Comment on above: Performed By: #### C MP, MG, GFR, ANEU, CBC, ADIFF #### [place] [address] Platelet 187 10 3/mcL Normal 150-450 [facility] Comment on above: Performed By: #### C MP, MG, GFR, ANEU, CBC, ADIFF #### [place] [address] Platelet mean volume (Bld) [Entitic vol] 7.5 fL Normal 6.4-10.5 [facility] Comment on above: Performed By: #### C MP, MG, GFR, ANEU, CBC, ADIFF #### [place] [address] RBC 2.49 10 6/mcL Low 4.50-6.00 [facility] Comment on above: Performed By: #### C MP, MG, GFR, ANEU, CBC, ADIFF #### [place] [address] WBC 6.6 10 3/mcL Normal 4.5-10.8 [facility] Comment on above: Performed By: #### C MP, MG, GFR, ANEU, CBC, ADIFF #### [place] [address] HEPACon 01-31-2025 Hep A IgM Ab Non-Reactive Normal Non-Reactive [facility] Comment on above: Performed By: #### C MP, MG, GFR, ANEU, CBC, ADIFF #### [address] [address] Hep A IgM Ab Int [facility] Comment on above: Result Comment: Clinical Interpretation: No serological evidence of a current Hepatitis A infection. Performed By: #### C MP, MG, GFR, ANEU, CBC, ADIFF #### [place] [address] Hep B Core IgM Ab Non-Reactive Normal Non-Reactive [facility] Comment on above: Performed By: #### C MP, MG, GFR, ANEU, CBC, ADIFF #### [place] [address] Hep B Core IgM Ab Int See [facility] Comment on above: Result Comment: Clinical Interpretation: Samples with a value < 0.80 Index are considered nonreactive (negative) for IgM antibodies to hepatitis B core antigen. Performed By: #### C MP, MG, GFR, ANEU, CBC, ADIFF #### [place] [address] Hep B Surf Ag Non-Reactive [facility] Comment on above: Performed By: #### C MP, MG, GFR, ANEU, CBC, ADIFF #### [place] [address] Hep C Ab Non-Reactive [facility] Comment on above: Performed By: #### C MP, MG, GFR, ANEU, CBC, ADIFF #### [place] [address] Hep C Ab Int [facility] Comment on above: Result Comment: [...] MP, MG, GFR, ANEU, CBC, ADIFF #### [place] [address] LABORATORYOrdered By: Misty Fuller on 01-31-2025 LDose Vancomycin: (random) See eMAR (01/31/25 1:50 PM) Normal Chemistry S LABORATORYOrdered By: SYSTEM SYSTEM on 01-31-2025 Vancomycin [Mass/Vol] 16.3 mcg/mL Invalid Interpretation Code ADM SS Albumin BCP dye [Mass/Vol] 3.5 G/dL Normal 3.2 - 4.8 G/dL ADM SS Basophils (Bld) [#/Vol] 0.0 103/mcL Normal 0.0 - 0.3 10^3/mcL Workflow SS Basophils/100 WBC (Bld) 0.4 % Normal 0.0 - 2.5 % AH Workflow SS Eosinophils (Bld) [#/Vol] 0.0 103/mcL Normal 0.0 - 0.7 10^3/mcL Workflow SS Eosinophils/100 WBC (Bld) 0.5 % Normal 0.0 - 6.0 % Workflow SS Erythrocyte distribution width (RBC) [Ratio] 15.6 % High 11.5 - 15.5 % Workflow [...] 21.1 % Low 40.0 - 52.0 % Workflow SS Hemoglobin (Bld) [Mass/Vol] 7.0 G/dL Low 13.0 - 17.5 G/dL Workflow SS Lymphocytes (Bld) [#/Vol] 1.1 103/mcL Normal 0.9 - 4.3 10^3/mcL Workflow SS Lymphocytes/100 WBC (Bld) 17.2 % Low 20.0 - 40.0 % Workflow SS MCH (RBC) [Entitic mass] 28.0 [...] 74.8 % Normal 50.0 - 75.0 % Workflow SS Phosphate [Mass/Vol] 9.9 mg/dL Invalid Interpretation Code 2.4 - 5.1 mg/dL ADM SS Platelet mean volume (Bld) [Entitic vol] 7.5 fL Normal 6.4 - 10.5 fL Workflow SS Platelets (Bld) [#/Vol] 187 103/mcL Normal 150 - 450 10^3/mcL Workflow SS RBC (Bld) [#/Vol] 2.49 106/mcL Low 4.50 - 6.0 0 10^6/mcL Workflow SS WBC (Bld) [#/Vol] 6.6 103/mcL Normal 4.5 - 10.8 10^3/mcL Workflow SS LABORATORYOrdered By: Maddie foster on 01-31-2025 Cholesterol [Mass/Vol] 82 mg/dL Normal 50 - 199 mg/dL [facility] SS Comment on above: Interpretive Data: C holesterol Reference Interval: Less than 200 Desirable 200-239 Borderline high risk 240 and above High risk Cholesterol in HDL [Mass/Vol] 33 mg/dL Low 40 - 59 mg/dL ADM SS Cholesterol in LDL [Mass/Vol] 35 mg/dL Normal 0 - 129 mg/dL [facility] SS HAV IgM IA Ql See Interp 12 *NA* (01/31/25 5:36 AM) Invalid Interpretation Code Chemistry S Comment on above: Result Comment: Clinical Interpretation: No serological evidence of a current Hepatitis A infection. HAV IgM IA Ql Non-Reactive (01/31/25 5:36 AM) Normal Non-Reactive ADM SS HBV core IgM IA Ql See Interp 11 *NA* (01/31/25 5:36 AM) Invalid Interpretation Code AH Chemistry S Comment on above: Result Comment: [...] *NA* (01/31/25 5:36 AM) Invalid Interpretation Code Chemistry S Comment on above: Result Comment: [...] 01-31-2025 Cholesterol [Mass/Vol] 82 mg/dL Normal 50-199 [facility] Comment on above: Result Comment: Chol esterol Reference Interval: Less than 200 Desirable 200-239 Borderline high risk 240 and above High risk Performed By: #### C MP, MG, GFR, ANEU, CBC, ADIFF #### [address] [address] Cholesterol in HDL [Mass/Vol] 33 mg/dL Low 40-59 [facility] Comment on above: Performed By: #### C MP, MG, GFR, ANEU, CBC, ADIFF #### [facility] [address] [place] [address] Cholesterol in LDL [Mass/Vol] 35 mg/dL Normal 0-129 [facility] Comment on above: Performed By: #### C MP, MG, GFR, ANEU, CBC, ADIFF #### [address] [address] Triglyceride [Mass/Vol] 72 mg/dL Normal 3-149 [facility] Comment on above: Performed By: #### C MP, MG, GFR, ANEU, CBC, ADIFF #### [address] [address] Laboratory - Chemistry and C hemistry - challengeOrdered By: SYSTEM SYSTEM on 01-31-2025 Calcium [Mass/Vol] 8.1 mg/dL Low 8.7 - 10. 4 mg/dL ADM SS Chloride [Moles/Vol] 96 mmol/L Low 98 - 11 0 mEq/L AH ADM SS CO2 [Moles/Vol] 27 mmol/L Normal 22 - 32 mEq/L AH ADM SS Creatinine [Mass/Vol] 14.74 mg/dL High 0.60 - 1.40 mg/dL AH ADM SS Comment on above: Interpretive Data: T esting performed on Timescape analyzer using enzymatic creatinine methodology. Glucose [Mass/Vol] [...] 01-31-2025 Albumin Level 3.5 G/dL Normal 3.2-4.8 [facility] Comment on above: Performed By: #### C MP, MG, GFR, ANEU, CBC, ADIFF #### [address] [address] Phosphate [Mass/Vol] 9.9 mg/dL Critically abnormal 2.4-5.1 [facility] Comment on above: Performed By: #### C MP, MG, GFR, ANEU, CBC, ADIFF #### [address] [address] VANCRon 01-31-2025 LDose Vancomycin: (random) See eMAR Normal [facility] Comment on above: Order Comment: Post Dialysis Performed By: #### A DIFF, GFR, BMP, CBC, ANEU #### [address] [address] Vancomycin Lvl (random) 16.3 mcg/mL Normal [facility] Comment on above: Order Comment: Post Dialysis Performed By: #### A DIFF, GFR, BMP, CBC, ANEU #### [address] [address] .Auto Diffon 01-30-2025 Basophil, Absolute 0.0 10 3/mcL Normal 0.0-0.3 [facility] Comment on above: Performed By: #### C MP, MG, GFR, ANEU, CBC, ADIFF #### [address] [address] Basophils/100 WBC (Bld) 0.5 % Normal 0.0-2.5 [facility] Comment on above: Performed By: #### C MP, MG, GFR, ANEU, CBC, ADIFF #### [place] [address] Eosinophil, Absolute 0.0 10 3/mcL Normal 0.0-0.7 [facility] Comment on above: Performed By: #### C MP, MG, GFR, ANEU, CBC, ADIFF #### [address] [address] Eosinophils/100 WBC (Bld) 0.0 % Normal 0.0-6.0 [facility] Comment on above: Performed By: #### C MP, MG, GFR, ANEU, CBC, ADIFF #### [place] [address] Lymphocyte, Absolute 0.3 10 3/mcL Low 0.9-4.3 [facility] Comment on above: Performed By: #### C MP, MG, GFR, ANEU, CBC, ADIFF #### [address] [address] Lymphocytes/100 WBC (Bld) 8.7 % Low 20.0-40.0 [facility] Comment on above: Performed By: #### C MP, MG, GFR, ANEU, CBC, ADIFF #### [place] [id number] [place] [address] Monocyte, Absolute 0.0 10 3/mcL Low 0.1-1.4 [facility] Comment on above: Performed By: #### C MP, MG, GFR, ANEU, CBC, ADIFF #### [address] [id number] Monocytes/100 WBC (Bld) 1.2 % Low 2.0-13.0 [facility] Comment on above: Performed By: #### C MP, MG, GFR, ANEU, CBC, ADIFF #### [address] [id number] Neutrophils/100 WBC (Bld) 89.6 % High 50.0-75.0 [facility] Comment on above: Performed By: #### C MP, MG, GFR, ANEU, CBC, ADIFF #### [address] [id number] .GFRon 01-30-2025 Estimated Glomerular Filtration Rate 4 ml/min/1.73sqm Normal [facility] Comment on above: Result Comment: Stages [...] A DIFF, GFR, BMP, CBC, ANEU #### [address] [address] .NEUABSon 01-30-2025 Neutrophil, Absolute 3.0 10 3/mcL Normal 2.3-8.1 [facility] Comment on above: Performed By: #### C MP, MG, GFR, ANEU, CBC, ADIFF #### [address] [address] CBCon 01-30-2025 Erythrocyte distribution width (RBC) [Ratio] 15.7 % High 11.5-15.5 [facility] Comment on above: Performed By: #### C MP, MG, GFR, ANEU, CBC, ADIFF #### [place] [address] Hematocrit (Bld) [Volume fraction] 22.6 % Low 40.0-52.0 [facility] Comment on above: Performed By: #### C MP, MG, GFR, ANEU, CBC, ADIFF #### [place] [address] Hgb 7.4 G/dL Low 13.0-17.5 [facility] Comment on above: Performed By: #### C MP, MG, GFR, ANEU, CBC, ADIFF #### [place] [address] MCH (RBC) [Entitic mass] 27.6 pg Normal 27.0-33.0 [facility] Comment on above: Performed By: #### C MP, MG, GFR, ANEU, CBC, ADIFF #### [place] [address] MCHC 32.6 G/dL Normal 32.0-36.0 [facility] Comment on above: Performed By: #### C MP, MG, GFR, ANEU, CBC, ADIFF #### [place] [address] MCV (RBC) [Entitic vol] 84.8 fL Normal 81.0-100.0 [facility] Comment on above: Performed By: #### C MP, MG, GFR, ANEU, CBC, ADIFF #### [place] [address] Platelet 172 10 3/mcL Normal 150-450 [facility] Comment on above: Performed By: #### C MP, MG, GFR, ANEU, CBC, ADIFF #### [place] [address] Platelet mean volume (Bld) [Entitic vol] 8.0 fL Normal 6.4-10.5 [facility] Comment on above: Performed By: #### C MP, MG, GFR, ANEU, CBC, ADIFF #### [place] [address] RBC 2.67 10 6/mcL Low 4.50-6.00 [facility] Comment on above: Performed By: #### C MP, MG, GFR, ANEU, CBC, ADIFF #### [place] [phone] WBC 3.3 10 3/mcL Low 4.5-10.8 [facility] Comment on above: Performed By: #### C MP, MG, GFR, ANEU, CBC, ADIFF #### [place] [phone] CMPon 01-30-2025 Albumin Level 3.4 G/dL Normal 3.2-4.8 [facility] Comment on above: Performed By: #### A DIFF, GFR, BMP, CBC, ANEU #### [place] [address] Albumin/Globulin [Mass ratio] 1.0 {ratio} Normal 0.9-1.6 [facility] Comment on above: Performed By: #### A DIFF, GFR, BMP, CBC, ANEU #### [place] [address] ALP [Catalytic activity/Vol] 58 U/L Normal 38-126 [facility] Comment on above: Performed By: #### A DIFF, GFR, BMP, CBC, ANEU #### [place] [address] ALT/SGPT <7 Low 12-55 [facility] Comment on above: Performed By: #### A DIFF, GFR, BMP, CBC, ANEU #### [place] [phone] AST [Catalytic activity/Vol] 8 U/L Normal 8-34 [facility] Comment on above: Performed By: #### A DIFF, GFR, BMP, CBC, ANEU #### [place] [address] Bili Total 0.20 mg/dL Normal 0.20-1.20 [facility] Comment on above: Result Comment: Use of this assay is not recommended for patients undergoing treatment with eltrombopag due to the potential for falsely elevated results. Performed By: #### A DIFF, GFR, BMP, CBC, ANEU #### [address] [address] BUN/Creatinine Ratio 4.7 ratio Low 10.0-22.0 [facility] Comment on above: Performed By: #### A DIFF, GFR, BMP, CBC, ANEU #### [address] [address] Calcium [Mass/Vol] 8.2 mg/dL Low 8.7-10.4 [facility] Comment on above: Performed By: #### A DIFF, GFR, BMP, CBC, ANEU #### [place] [phone] Chloride [Moles/Vol] 97 mmol/L Low 98-110 [facility] Comment on above: Performed By: #### A DIFF, GFR, BMP, CBC, ANEU #### [place] [phone] CO2 [Moles/Vol] 26 mmol/L Normal 22-32 [facility] Comment on above: Performed By: #### A DIFF, GFR, BMP, CBC, ANEU #### [address] [address] Creatinine [Mass/Vol] 12.75 mg/dL High 0.60-1.40 [facility] Comment on above: Result Comment: Test ing performed on [employer] analyzer using enzymatic creatinine methodology. Performed By: #### A DIFF, GFR, BMP, CBC, ANEU #### [address] [address] Electrolyte Balance 12.0 mEq/L Normal 4.0-15.0 [facility] Comment on above: Performed By: #### A DIFF, GFR, BMP, CBC, ANEU #### [address] [address] Globulin 3.3 G/dL Normal 2.5-4.2 [facility] Comment on above: Performed By: #### A DIFF, GFR, BMP, CBC, ANEU #### [address] [address] Glucose [Mass/Vol] 197 mg/dL High 70-110 [facility] Comment on above: Performed By: #### A DIFF, GFR, BMP, CBC, ANEU #### [address] [address] Potassium [Moles/Vol] 4.8 mmol/L Normal 3.5-5.0 [facility] Comment on above: Performed By: #### A DIFF, GFR, BMP, CBC, ANEU #### [address] [address] Sodium [Moles/Vol] 135 mmol/L Low 136-145 [facility] Comment on above: Performed By: #### A DIFF, GFR, BMP, CBC, ANEU #### [place] [address] Total Protein 6.7 G/dL Normal 5.7-8.2 [facility] Comment on above: Performed By: #### A DIFF, GFR, BMP, CBC, ANEU #### [address] [address] Urea nitrogen [Mass/Vol] 60.0 mg/dL High 8.0-22.0 [facility] Comment on above: Performed By: #### A DIFF, GFR, BMP, CBC, ANEU #### [address] [address] CRPon 01-30-2025 C-Reactive Protein 2.6 mg/dL High 0.0-1.0 [facility] Comment on above: Performed By: #### A DIFF, GFR, BMP, CBC, ANEU #### [address] [address] ESRon 01-30-2025 Erythrocyte Sed Rate 38 mm/hr High 0-20 [facility] Comment on above: Performed By: #### A DIFF, GFR, BMP, CBC, ANEU #### [address] [address] LABORATORYOrdered By: SYSTEM SYSTEM on 01-30-2025 Troponin I.cardiac DL <= 0.01 ng/mL [Mass/Vol] 24 ng/L Normal 0 - 54 ng/L ADM SS Comment on above: Interpretive Data: High Sensitive Troponin I Reference Ranges: Female: 0-34 ng/L Male: 0-54 ng/L Testing performed on [employer] IM analyzer using direct chemiluminescent technology. Albumin BCP dye [Mass/Vol] 3.4 G/dL Normal 3.2 - 4.8 G/dL ADM SS Albumin/Globulin [Mass ratio] 1.0 {ratio} Normal 0.9 - 1.6 ratio AH ADM SS ALP [Catalytic activity/Vol] 58 U/L Normal 38 - 126 U/L ADM SS ALT No additional P-5'-P [Catalytic activity/Vol] U/L 1 Low 12 - 55 U/L ADM SS AST [Catalytic activity/Vol] 8 U/L Normal 8 - 34 U/L ADM SS Basophils (Bld) [#/Vol] 0.0 103/mcL Normal 0.0 - 0.3 10^3/mcL Workflow SS Basophils/100 WBC (Bld) 0.5 % [...] above: Interpretive Data: T esting performed on [employer] CH analyzer using enzymatic creatinine methodology. CRP [Mass/Vol] [...] 15.7 % High 11.5 - 15.5 % [facility] SS Estimated Glomerular Filtration Rate 4 ml/min/1.73sqm Invalid Interpretation Code [facility] Comment on above: Interpretive Data: Stages of [...] 3.3 G/dL Normal 2.5 - 4.2 G/dL [facility] Glucose [Mass/Vol] 197 mg/dL High 70 - 110 mg/dL [facility] Hematocrit (Bld) [Volume fraction] 22.6 % Low 40.0 - 52.0 % [facility] SS Hemoglobin (Bld) [Mass/Vol] 7.4 G/dL Low 13.0 - 17.5 G/dL [facility] SS Lymphocytes (Bld) [#/Vol] 0.3 103/mcL Low 0.9 - 4.3 10^3/mcL Workflow SS Lymphocytes/100 WBC (Bld) 8.7 % Low 20.0 - 40.0 % [facility] SS Magnesium [Mass/Vol] 2.5 mg/dL High 1.6 - 2 .4 mg/dL [facility] SS MCH (RBC) [Entitic mass] 27.6 pg Normal 27.0 - 33.0 pg Workflow SS MCHC 32.6 G/dL Normal 32.0 - 36.0 G/dL [facility] SS MCV (RBC) [Entitic vol] 84.8 fL Normal 81.0 - 100.0 fL Workflow SS Monocytes (Bld) [#/Vol] 0.0 103/mcL [...] 4.8 mmol/L Normal 3.5 - 5.0 mEq/L ADM SS Protein [Mass/Vol] 6.7 G/dL Normal 5.7 - 8.2 G/dL ADM SS RBC (Bld) [#/Vol] 2.67 106/mcL Low 4.50 - 6.0 0 10^6/mcL AH Workflow SS Sodium [Moles/Vol] 135 mmol/L Low 136 - 145 mEq/L ADM SS Troponin I.cardiac DL <= 0.01 ng/mL [Mass/Vol] 26 ng/L Normal 0 - 54 ng/L ADM SS Comment on above: Interpretive Data: High Sensitive Troponin I Reference Ranges: Female: 0-34 ng/L Male: 0-54 ng/L Testing performed on [employer] IM analyzer using direct chemiluminescent technology. Urea nitrogen [Mass/Vol] 60.0 mg/dL High 8.0 - 22.0 mg/dL ADM SS Urea nitrogen/Creatinine [Mass ratio] 4.7 ratio Low 10.0 - 22.0 ratio ADM SS WBC (Bld) [#/Vol] 3.3 103/mcL Low 4.5 - 10.8 10^3/mcL Workflow SS Troponin I.cardiac DL <= 0.01 ng/mL [Mass/Vol] 29 ng/L Normal 0 - 54 ng/L ADM SS Comment on above: Interpretive Data: High Sensitive Troponin I Reference Ranges: Female: 0-34 ng/L Male: 0-54 ng/L Testing performed on [employer] IM analyzer using direct chemiluminescent technology. LABORATORYOrdered By: Melquiades Davis on 01-30-2025 ESR 15 minute reading (Bld) [Velocity] 38 mm/hr High 0 - 20 mm/hr AH Auto Heme SS MGon 01-30-2025 Magnesium [Mass/Vol] 2.5 mg/dL High 1.6-2.4 [facility] Comment on above: Performed By: #### C MP, MG, GFR, ANEU, CBC, ADIFF #### [place] [address] No Panel Informationon 01-30 Microscopic examination of blood, culture Culture has been received in lab and is no growth to date. Routine cultures are held for 5 days. [facility] Work Phone: TROPHSon 01-30-2025 High Sensitivity Troponin I 24 ng/L Normal 0-54 [facility] Comment on above: Result Comment: High Sensitive Troponin I Reference Ranges: Female: 0-34 ng/L Male: 0-54 ng/L Testing performed on [employer] IM analyzer using direct chemiluminescent technology. Performed By: #### A DIFF, GFR, BMP, CBC, ANEU #### [place] [address] High Sensitivity Troponin I 26 ng/L Normal 0-54 [facility] Comment on above: Result Comment: High Sensitive Troponin I Reference Ranges: Female: 0-34 ng/L Male: 0-54 ng/L Testing performed on [employer] IM analyzer using direct chemiluminescent technology. Performed By: #### A DIFF, GFR, BMP, CBC, ANEU #### [place] [address] High Sensitivity Troponin I 29 ng/L Normal 0-54 [facility] Comment on above: Result Comment: High Sensitive Troponin I Reference Ranges: Female: 0-34 ng/L Male: 0-54 ng/L Testing performed on [employer] IM analyzer using direct chemiluminescent technology. Performed By: #### A DIFF, GFR, BMP, CBC, ANEU #### [place] [address] .GFRon 01-29-2025 Estimated Glomerular Filtration Rate 5 ml/min/1.73sqm Normal [facility] Comment on above: Result Comment: Stages of [...] ESR, MDW, CBC, TROPHS, CRP, GFR ####[id number] [place] [id number] .MDWon 01-29-2025 Monocyte Distribution Width 18.67 Normal 0.00-20.00 [facility] Comment on above: Result Comment: For ED adult patients suspected of sepsis, MDW<=20.0 does not rule out sepsis or risk of sepsis Performed By: #### B MP, MORPH, DIFF, ESR, MDW, CBC, TROPHS, CRP, GFR ####[place] [address] [place] [address] .Manual Diffon 01-29-2025 Basophil %, Manual 0.0 % Normal 0.0-2.5 [facility] Comment on above: Performed By: #### B MP, MORPH, DIFF, ESR, MDW, CBC, TROPHS, CRP, GFR ####[address] [place], [place] [address] Basophil, Abs Manual 0.0 10 3/mcL Normal 0.0-0.3 [facility] Comment on above: Performed By: #### B MP, MORPH, DIFF, ESR, MDW, CBC, TROPHS, CRP, GFR ####[place] [address] [place], [place] [address] Eosinophil %, Manual 3.0 % Normal 0.0-6.0 [facility] Comment on above: Performed By: #### B MP, MORPH, DIFF, ESR, MDW, CBC, TROPHS, CRP, GFR ####[place] [address] [place], [place] [address] Eosinophil, Abs Manual 0.2 10 3/mcL Normal 0.0-0.7 [facility] Comment on above: Performed By: #### B MP, MORPH, DIFF, ESR, MDW, CBC, TROPHS, CRP, GFR ####[address] [place], [place] [address] Lymphocyte %, Manual 19.0 % Low 20.0-40.0 [facility] Comment on above: Performed By: #### B MP, MORPH, DIFF, ESR, MDW, CBC, TROPHS, CRP, GFR ####[address] [address] Lymphocyte, Abs Manual 0.9 10 3/mcL Normal 0.9-4.3 [facility] Comment on above: Performed By: #### B MP, MORPH, DIFF, ESR, MDW, CBC, TROPHS, CRP, GFR ####[address] [address] Monocyte %, Manual 8.0 % Normal 2.0-13.0 [facility] Comment on above: Performed By: #### B MP, MORPH, DIFF, ESR, MDW, CBC, TROPHS, CRP, GFR ####[place] [address] [place], [place] [address] Monocyte, Abs Manual 0.4 10 3/mcL Normal 0.1-1.4 [facility] Comment on above: Performed By: #### B MP, MORPH, DIFF, ESR, MDW, CBC, TROPHS, CRP, GFR ####[address] [address] Neutrophil %, Manual 70.0 % Normal 50.0-75.0 [facility] Comment on above: Performed By: #### B MP, MORPH, DIFF, ESR, MDW, CBC, TROPHS, CRP, GFR ####[place] [address] [place], [place] [address] Neutrophil, Abs Manual 3.5 10 3/mcL Normal 2.3-8.1 [facility] Comment on above: Performed By: #### B MP, MORPH, DIFF, ESR, MDW, CBC, TROPHS, CRP, GFR ####[address] [address] Nucleated RBC 0.0 /100 WBC Normal [facility] Comment on above: Performed By: #### B MP, MORPH, DIFF, ESR, MDW, CBC, TROPHS, CRP, GFR ####[address] [address] .Morphon 01-29-2025 Anisocytosis Ql (Bld) 1+ Normal L [facility] Comment on above: Performed By: #### T CARENHS, PRO, GFR, CBC, ANEU, PBNP, CMP, ADIFF, APTT, MDW #### [address] [address] Hypochrom 1+ Normal [facility] Comment on above: Performed By: #### T CARENHS, PRO, GFR, CBC, ANEU, PBNP, CMP, ADIFF, APTT, MDW #### [address] [address] Microcytosis 1+ Normal [facility] Comment on above: Performed By: #### T AMAYA, PRO, GFR, CBC, ANEU, PBNP, CMP, ADIFF, APTT, MDW #### [address] [address] Ovalocytes 1+ Normal [facility] Comment on above: Performed By: #### T CARENHS, PRO, GFR, CBC, ANEU, PBNP, CMP, ADIFF, APTT, MDW #### [address] [address] Platelet Estimate Normal Normal [facility] Comment on above: Performed By: #### T ROPHS, PRO, GFR, CBC, ANEU, PBNP, CMP, ADIFF, APTT, MDW #### [address] [address] ABO/Rh (Gel)on 01-29-2025 ABO/Rh Interp Positive Invalid Interpretation Code [facility] Comment on above: Performed By: #### T ROPHS, PRO, GFR, CBC, ANEU, PBNP, CMP, ADIFF, APTT, MDW #### [place] [address] [place], [place] [address] ABS (Gel)on 01-29-2025 ABSC Interp (Gel) Negative Normal [facility] Comment on above: Performed By: #### T ROPHS, PRO, GFR, CBC, ANEU, PBNP, CMP, ADIFF, APTT, MDW #### [place] [address] [place], [place] [address] BMPon 01-29-2025 BUN/Creatinine Ratio 5 ratio Low 7-27 [facility] Comment on above: Performed By: #### B MP, MORPH, DIFF, ESR, MDW, CBC, TROPHS, CRP, GFR ####[place] [address] [place], [place] [address] Calcium [Mass/Vol] 8.3 mg/dL Low 8.4-10.2 [facility] Comment on above: Performed By: #### B MP, MORPH, DIFF, ESR, MDW, CBC, TROPHS, CRP, GFR ####[place] [address] [place], [place] [address] Chloride [Moles/Vol] 98 mmol/L Normal 98-107 [facility] Comment on above: Performed By: #### B MP, MORPH, DIFF, ESR, MDW, CBC, TROPHS, CRP, GFR ####[address] [address] CO2 [Moles/Vol] 33 mmol/L High 22-29 [facility] Comment on above: Performed By: #### B MP, MORPH, DIFF, ESR, MDW, CBC, TROPHS, CRP, GFR ####[place] [address] [place], [place] [address] Creatinine [Mass/Vol] 11.99 mg/dL High 0.67-1.17 [facility] Comment on above: Performed By: #### B MP, MORPH, DIFF, ESR, MDW, CBC, TROPHS, CRP, GFR ####[facility] [place], [place] [address] Electrolyte Balance 7.0 mEq/L Normal 4.0-15.0 [facility] Comment on above: Performed By: #### B MP, MORPH, DIFF, ESR, MDW, CBC, TROPHS, CRP, GFR ####[address] [place], [place] [address] Glucose [Mass/Vol] 97 mg/dL Normal 70-105 [facility] Comment on above: Performed By: #### B MP, MORPH, DIFF, ESR, MDW, CBC, TROPHS, CRP, GFR ####[address] [place], [place] [address] Potassium [Moles/Vol] 4.6 mmol/L Normal 3.5-5.1 [facility] Comment on above: Performed By: #### B MP, MORPH, DIFF, ESR, MDW, CBC, TROPHS, CRP, GFR ####[address] [place], [place] [address] Sodium [Moles/Vol] 138 mmol/L Normal 136-145 [facility] Comment on above: Performed By: #### B MP, MORPH, DIFF, ESR, MDW, CBC, TROPHS, CRP, GFR ####[address] [place], [place] [address] Urea nitrogen [Mass/Vol] 62 mg/dL High 7-18 [facility] Comment on above: Performed By: #### B MP, MORPH, DIFF, ESR, MDW, CBC, TROPHS, CRP, GFR ####[address] [place], [place] [address] CBCon 01-29-2025 Erythrocyte distribution width (RBC) [Ratio] 15.7 % High 11.5-15.5 [facility] Comment on above: Performed By: #### B MP, MORPH, DIFF, ESR, MDW, CBC, TROPHS, CRP, GFR ####[address] [place], [place] [address] Hematocrit (Bld) [Volume fraction] 20.5 % Low 40.0-52.0 [facility] Comment on above: Performed By: #### B MP, MORPH, DIFF, ESR, MDW, CBC, TROPHS, CRP, GFR ####[address] [address] Hgb 6.7 G/dL Critically abnormal 13.0-17.5 [facility] Comment on above: Performed By: #### B MP, MORPH, DIFF, ESR, MDW, CBC, TROPHS, CRP, GFR ####[place] [address] [id number] MCH (RBC) [Entitic mass] 27.5 pg Normal 27.0-33.0 [facility] Comment on above: Performed By: #### B MP, MORPH, DIFF, ESR, MDW, CBC, TROPHS, CRP, GFR ####[place] [address] [place] [address] MCHC 32.8 G/dL Normal 32.0-36.0 [facility] Comment on above: Performed By: #### B MP, MORPH, DIFF, ESR, MDW, CBC, TROPHS, CRP, GFR ####[place] [id number] MCV (RBC) [Entitic vol] 83.9 fL Normal 81.0-100.0 [facility] Comment on above: Performed By: #### B MP, MORPH, DIFF, ESR, MDW, CBC, TROPHS, CRP, GFR ####[place] [id number] Platelet 165 10 3/mcL Normal 150-450 [facility] Comment on above: Performed By: #### B MP, MORPH, DIFF, ESR, MDW, CBC, TROPHS, CRP, GFR ####[place] [id number] Platelet mean volume (Bld) [Entitic vol] 7.5 fL Normal 6.4-10.5 [facility] Comment on above: Performed By: #### B MP, MORPH, DIFF, ESR, MDW, CBC, TROPHS, CRP, GFR ####[place] [address] [place], [place] [address] RBC 2.44 10 6/mcL Low 4.50-6.00 [facility] Comment on above: Performed By: #### B MP, MORPH, DIFF, ESR, MDW, CBC, TROPHS, CRP, GFR ####[address] [place], [place] [address] WBC 5.0 10 3/mcL Normal 4.5-10.8 [facility] Comment on above: Performed By: #### B MP, MORPH, DIFF, ESR, MDW, CBC, TROPHS, CRP, GFR ####[address] [place], [place] [address] CRPon 01-29-2025 C-Reactive Protein 3.1 mg/dL High 0.0-0.3 [facility] Comment on above: Performed By: #### T ROPHS, PRO, GFR, CBC, ANEU, PBNP, CMP, ADIFF, APTT, MDW #### [place] [id number] [place], [place] [address] CT THORAX W/ CONTRASTon CT THORAX W/ [...] 01/29/2025 9:04:32 PM Ordering Provider: PARTH PONCE Normal [facility] ESRon 01-29-2025 Erythrocyte Sed Rate 22 mm/hr High 0-20 [facility] Comment on above: Performed By: #### B MP, MORPH, DIFF, ESR, MDW, CBC, TROPHS, CRP, GFR ####[place] [address] [place] [phone] LABORATORYOrdered By: Constanza Joy on 01-29-2025 ABO [...] mm/hr AO Man Heme SS LABORATORYOrdered By: [employer] SYSTEM on 01-29-2025 CRP [Mass/Vol] 3.1 mg/dL [...] ng/L Male: 0-76 ng/L Testing performed on [employer] using a homogeneous sandwich chemiluminescent immunoassay based on [employer] technology. Urea nitrogen [Mass/Vol] 62 mg/dL High 7 - 18 mg/dL AO ADM SS Urea nitrogen/Creatinine [Mass ratio] 5 ratio Low 7 - 27 ratio AO ADM SS WBC (Bld) [#/Vol] 5.0 103/mcL Normal 4.5 - 10.8 10^3/mcL AO Workflow SS RBC (Product)on 01-29-2025 RBC Product Ready RBC Ready for Pickup Normal [facility] Comment on above: Performed By: #### T ROPHS, PRO, GFR, CBC, ANEU, PBNP, CMP, ADIFF, APTT, MDW #### [place] [address] [place], [place] [address] TROPHSon 01-29-2025 High Sensitivity Troponin I 40 ng/L Normal 0-76 [facility] Comment on above: Result Comment: High Sensitive Troponin I Reference Ranges: Female: 0-51 ng/L Male: 0-76 ng/L Testing performed on [employer] using a homogeneous sandwich chemiluminescent immunoassay based on [employer] technology. Performed By: #### B MP, MORPH, DIFF, ESR, MDW, CBC, TROPHS, CRP, GFR ####[address] [address] .Auto Diffon 01-26-2025 Basophil, Absolute 0.1 10 3/mcL Normal 0.0-0.3 [facility] Comment on above: Performed By: #### A DIFF, GFR, BMP, CBC, ANEU #### [address] [address] Basophils/100 WBC (Bld) 2.5 % Normal 0.0-2.5 [facility] Comment on above: Performed By: #### A DIFF, GFR, BMP, CBC, ANEU #### [address] [address] Eosinophil, Absolute 0.1 10 3/mcL Normal 0.0-0.7 [facility] Comment on above: Performed By: #### A DIFF, GFR, BMP, CBC, ANEU #### [address] [address] Eosinophils/100 WBC (Bld) 2.8 % Normal 0.0-6.0 [facility] Comment on above: Performed By: #### A DIFF, GFR, BMP, CBC, ANEU #### [address] [address] Lymphocyte, Absolute 1.0 10 3/mcL Normal 0.9-4.3 [facility] Comment on above: Performed By: #### A DIFF, GFR, BMP, CBC, ANEU #### [address] [address] Lymphocytes/100 WBC (Bld) 21.3 % Normal 20.0-40.0 [facility] Comment on above: Performed By: #### A DIFF, GFR, BMP, CBC, ANEU #### [address] [address] Monocyte, Absolute 0.4 10 3/mcL Normal 0.1-1.4 [facility] Comment on above: Performed By: #### A DIFF, GFR, BMP, CBC, ANEU #### [address] [address] Monocytes/100 WBC (Bld) 7.9 % Normal 2.0-13.0 [facility] Comment on above: Performed By: #### A DIFF, GFR, BMP, CBC, ANEU #### [address] [address] Neutrophils/100 WBC (Bld) 65.5 % Normal 50.0-75.0 [facility] Comment on above: Performed By: #### A DIFF, GFR, BMP, CBC, ANEU #### [address] [address] .GFRon 01-26-2025 Estimated Glomerular Filtration Rate 4 ml/min/1.73sqm Normal [facility] Comment on above: Result Comment: Stages [...] A DIFF, GFR, BMP, CBC, ANEU #### [address] [address] .NEUABSon 01-26-2025 Neutrophil, Absolute 3.2 10 3/mcL Normal 2.3-8.1 [facility] Comment on above: Performed By: #### A DIFF, GFR, BMP, CBC, ANEU #### [address] [address] BMPon 01-26-2025 BUN/Creatinine Ratio 5.0 ratio Low 10.0-22.0 [facility] Comment on above: Performed By: #### A DIFF, GFR, BMP, CBC, ANEU #### [address] [address] Calcium [Mass/Vol] 8.3 mg/dL Low 8.7-10.4 [facility] Comment on above: Performed By: #### A DIFF, GFR, BMP, CBC, ANEU #### [address] [address] Chloride [Moles/Vol] 98 mmol/L Normal 98-110 [facility] Comment on above: Performed By: #### A DIFF, GFR, BMP, CBC, ANEU #### [address] [address] CO2 [Moles/Vol] 26 mmol/L Normal 22-32 [facility] Comment on above: Performed By: #### A DIFF, GFR, BMP, CBC, ANEU #### [address] [address] Creatinine [Mass/Vol] 15.10 mg/dL High 0.60-1.40 [facility] Comment on above: Result Comment: Test ing performed on Timescape analyzer using enzymatic creatinine methodology. Performed By: #### A DIFF, GFR, BMP, CBC, ANEU #### [place] [id number] Electrolyte Balance 16.0 mEq/L High 4.0-15.0 [facility] Comment on above: Performed By: #### A DIFF, GFR, BMP, CBC, ANEU #### [place] [id number] Glucose [Mass/Vol] 91 mg/dL Normal 70-110 [facility] Comment on above: Performed By: #### A DIFF, GFR, BMP, CBC, ANEU #### [place] [id number] Potassium [Moles/Vol] 4.5 mmol/L Normal 3.5-5.0 [facility] Comment on above: Performed By: #### A DIFF, GFR, BMP, CBC, ANEU #### [place] [id number] Sodium [Moles/Vol] 140 mmol/L Normal 136-145 [facility] Comment on above: Performed By: #### A DIFF, GFR, BMP, CBC, ANEU #### [address] [address] Urea nitrogen [Mass/Vol] 76.0 mg/dL High 8.0-22.0 [facility] Comment on above: Performed By: #### A DIFF, GFR, BMP, CBC, ANEU #### [place] [id number] CBCon 01-26-2025 Erythrocyte distribution width (RBC) [Ratio] 15.1 % Normal 11.5-15.5 [facility] Comment on above: Performed By: #### A DIFF, GFR, BMP, CBC, ANEU #### [address] [address] Hematocrit (Bld) [Volume fraction] 26.8 % Low 40.0-52.0 [facility] Comment on above: Performed By: #### A DIFF, GFR, BMP, CBC, ANEU #### [address] [address] Hgb 8.7 G/dL Low 13.0-17.5 [facility] Comment on above: Performed By: #### A DIFF, GFR, BMP, CBC, ANEU #### [address] [address] MCH (RBC) [Entitic mass] 27.2 pg Normal 27.0-33.0 [facility] Comment on above: Performed By: #### A DIFF, GFR, BMP, CBC, ANEU #### [place] [id number] MCHC 32.4 G/dL Normal 32.0-36.0 [facility] Comment on above: Performed By: #### A DIFF, GFR, BMP, CBC, ANEU #### [address] [address] MCV (RBC) [Entitic vol] 83.9 fL Normal 81.0-100.0 [facility] Comment on above: Performed By: #### A DIFF, GFR, BMP, CBC, ANEU #### [address] [address] Platelet 175 10 3/mcL Normal 150-450 [facility] Comment on above: Performed By: #### A DIFF, GFR, BMP, CBC, ANEU #### [place] [id number] Platelet mean volume (Bld) [Entitic vol] 8.1 fL Normal 6.4-10.5 [facility] Comment on above: Performed By: #### A DIFF, GFR, BMP, CBC, ANEU #### [address] [address] RBC 3.19 10 6/mcL Low 4.50-6.00 [facility] Comment on above: Performed By: #### A DIFF, GFR, BMP, CBC, ANEU #### [place] [id number] [place] [address] WBC 4.9 10 3/mcL Normal 4.5-10.8 [facility] Comment on above: Performed By: #### A DIFF, GFR, BMP, CBC, ANEU #### [address] [address] LABORATORYOrdered By: SYSTEM SYSTEM on 01-26-2025 Basophils (Bld) [#/Vol] 0.1 103/mcL Normal 0.0 - 0.3 10^3/mcL Workflow SS Basophils/100 WBC (Bld) 2.5 % Normal 0.0 - 2.5 % AH Workflow SS Calcium [Mass/Vol] 8.3 mg/dL Low 8.7 - 10. 4 mg/dL ADM SS Chloride [Moles/Vol] 98 mmol/L Normal 98 - 11 0 mEq/L ADM SS CO2 [Moles/Vol] 26 mmol/L Normal 22 - 32 mEq/L ADM SS Creatinine [Mass/Vol] 15.10 mg/dL High 0.60 - 1.40 mg/dL ADM SS Comment on above: Interpretive Data: T esting performed on Timescape analyzer using enzymatic creatinine methodology. Electrolyte Balance 16.0 mEq/L High 4.0 - 15 .0 mEq/L ADM SS Eosinophils (Bld) [#/Vol] 0.1 103/mcL Normal 0.0 - 0.7 10^3/mcL AH Workflow SS Eosinophils/100 WBC (Bld) 2.8 % Normal 0.0 - 6.0 % AH Workflow SS Erythrocyte distribution width (RBC) [Ratio] 15.1 % Normal 11.5 - 15.5 % AH [...] 91 mg/dL Normal 70 - 110 mg/dL AH ADM SS Hematocrit (Bld) [Volume fraction] 26.8 % Low 40.0 - 52.0 % AH Workflow SS Hemoglobin (Bld) [Mass/Vol] 8.7 G/dL Low 13.0 - 17.5 G/dL AH Workflow SS Lymphocytes (Bld) [#/Vol] 1.0 103/mcL Normal 0.9 - 4.3 10^3/mcL AH Workflow SS Lymphocytes/100 WBC (Bld) 21.3 % Normal 20.0 - 40.0 % AH Workflow SS MCH (RBC) [Entitic mass] 27.2 pg Normal 27.0 - 33.0 pg AH Workflow SS MCHC 32.4 G/dL Normal 32.0 - 36.0 G/dL AH Workflow SS MCV (RBC) [Entitic vol] 83.9 [...] 65.5 % Normal 50.0 - 75.0 % AH Workflow SS Platelet mean volume (Bld) [Entitic vol] 8.1 fL Normal 6.4 - 10.5 fL AH Workflow SS Platelets (Bld) [#/Vol] 175 103/mcL Normal 150 - 450 10^3/mcL AH Workflow SS Potassium [Moles/Vol] 4.5 mmol/L Normal 3.5 - 5.0 mEq/L AH ADM SS RBC (Bld) [#/Vol] 3.19 106/mcL Low 4.50 - 6.0 0 10^6/mcL AH Workflow SS Sodium [Moles/Vol] 140 mmol/L Normal 136 - 145 mEq/L AH ADM SS Urea nitrogen [Mass/Vol] 76.0 mg/dL High 8.0 - 22.0 mg/dL AH ADM SS Urea nitrogen/Creatinine [Mass ratio] 5.0 ratio Low 10.0 - 22.0 ratio AH ADM SS WBC (Bld) [#/Vol] 4.9 103/mcL Normal 4.5 - 10.8 10^3/mcL AH Workflow SS XR CHEST 2 VIEWSon XR [...] 01/04/2025 4:06:33 PM Ordering Provider: [address]L Street [facility] .Auto Diffon 12-20-2024 Basophil, Absolute 0.1 10 3/mcL Normal 0.0-0.3 [facility] Comment on above: Performed By: #### A DIFF, GFR, BMP, CBC, ANEU #### [facility] [address] [place] [address] Basophils/100 WBC (Bld) 1.0 % Normal 0.0-2.5 [facility] Comment on above: Performed By: #### A DIFF, GFR, BMP, CBC, ANEU #### [address] [address] Eosinophil, Absolute 0.1 10 3/mcL Normal 0.0-0.7 [facility] Comment on above: Performed By: #### A DIFF, GFR, BMP, CBC, ANEU #### [address] [address] Eosinophils/100 WBC (Bld) 1.2 % Normal 0.0-6.0 [facility] Comment on above: Performed By: #### A DIFF, GFR, BMP, CBC, ANEU #### [address] [address] Lymphocyte, Absolute 1.0 10 3/mcL Normal 0.9-4.3 [facility] Comment on above: Performed By: #### A DIFF, GFR, BMP, CBC, ANEU #### [address] [address] Lymphocytes/100 WBC (Bld) 11.6 % Low 20.0-40.0 [facility] Comment on above: Performed By: #### A DIFF, GFR, BMP, CBC, ANEU #### [address] [address] Monocyte, Absolute 1.7 10 3/mcL High 0.1-1.4 [facility] Comment on above: Performed By: #### A DIFF, GFR, BMP, CBC, ANEU #### [address] [address] Monocytes/100 WBC (Bld) 18.9 % High 2.0-13.0 [facility] Comment on above: Performed By: #### A DIFF, GFR, BMP, CBC, ANEU #### [address] [address] Neutrophils/100 WBC (Bld) 67.3 % Normal 50.0-75.0 [facility] Comment on above: Performed By: #### A DIFF, GFR, BMP, CBC, ANEU #### [place] [address] .GFRon 12-20-2024 Estimated Glomerular Filtration Rate 6 ml/min/1.73sqm Normal [facility] Comment on above: Result Comment: Stages [...] A DIFF, GFR, BMP, CBC, ANEU #### [place] [address] .NEUABSon 12-20-2024 Neutrophil, Absolute 6.1 10 3/mcL Normal 2.3-8.1 [facility] Comment on above: Performed By: #### A DIFF, GFR, BMP, CBC, ANEU #### [place] [address] CBCon 12-20-2024 Erythrocyte distribution width (RBC) [Ratio] 15.4 % Normal 11.5-15.5 [facility] Comment on above: Performed By: #### A DIFF, GFR, BMP, CBC, ANEU #### [place] [address] Hematocrit (Bld) [Volume fraction] 21.8 % Low 40.0-52.0 [facility] Comment on above: Performed By: #### A DIFF, GFR, BMP, CBC, ANEU #### [place] [address] Hgb 7.2 G/dL Low 13.0-17.5 [facility] Comment on above: Performed By: #### A DIFF, GFR, BMP, CBC, ANEU #### [place] [address] MCH (RBC) [Entitic mass] 28.1 pg Normal 27.0-33.0 [facility] Comment on above: Performed By: #### A DIFF, GFR, BMP, CBC, ANEU #### [place] [address] MCHC 33.1 G/dL Normal 32.0-36.0 [facility] Comment on above: Performed By: #### A DIFF, GFR, BMP, CBC, ANEU #### [place] [address] MCV (RBC) [Entitic vol] 85.0 fL Normal 81.0-100.0 [facility] Comment on above: Performed By: #### A DIFF, GFR, BMP, CBC, ANEU #### [place] [address] Platelet 229 10 3/mcL Normal 150-450 [facility] Comment on above: Performed By: #### A DIFF, GFR, BMP, CBC, ANEU #### [place] [address] Platelet mean volume (Bld) [Entitic vol] 7.6 fL Normal 6.4-10.5 [facility] Comment on above: Performed By: #### A DIFF, GFR, BMP, CBC, ANEU #### [place] [address] RBC 2.56 10 6/mcL Low 4.50-6.00 [facility] Comment on above: Performed By: #### A DIFF, GFR, BMP, CBC, ANEU #### [place] [address] WBC 9.0 10 3/mcL Normal 4.5-10.8 [facility] Comment on above: Performed By: #### A DIFF, GFR, BMP, CBC, ANEU #### [place] [address] CMPon 12-20-2024 Albumin/Globulin [Mass ratio] 1.2 {ratio} Normal 0.9-1.6 [facility] Comment on above: Performed By: #### A DIFF, GFR, BMP, CBC, ANEU #### [place] [id number] ALP [Catalytic activity/Vol] 59 U/L Normal 38-126 [facility] Comment on above: Performed By: #### A DIFF, GFR, BMP, CBC, ANEU #### [place] [address] ALT [Catalytic activity/Vol] 10 U/L Low 12-55 [facility] Comment on above: Performed By: #### A DIFF, GFR, BMP, CBC, ANEU #### [place] [address] AST [Catalytic activity/Vol] 30 U/L Normal 8-34 [facility] Comment on above: Performed By: #### A DIFF, GFR, BMP, CBC, ANEU #### [place] [address] Bili Total <0.20 Normal 0.20-1.20 [facility] Comment on above: Result Comment: Use of this assay is not recommended for patients undergoing treatment with eltrombopag due to the potential for falsely elevated results. Performed By: #### A DIFF, GFR, BMP, CBC, ANEU #### [place] [address] Globulin 2.9 G/dL Normal 2.5-4.2 [facility] Comment on above: Performed By: #### A DIFF, GFR, BMP, CBC, ANEU #### [place] [address] Total Protein 6.4 G/dL Normal 5.7-8.2 [facility] Comment on above: Performed By: #### A DIFF, GFR, BMP, CBC, ANEU #### [place] [address] LABORATORYOrdered By: SYSTEM SYSTEM on 12-20-2024 Albumin/Globulin [Mass ratio] 1.2 {ratio} Normal 0.9 - 1.6 ratio AH ADM SS ALP [Catalytic activity/Vol] 59 U/L Normal 38 - 126 U/L ADM SS ALT No additional P-5'-P [Catalytic activity/Vol] 10 U/L Low 12 - 55 U/L ADM SS AST [Catalytic activity/Vol] 30 U/L Normal 8 - 34 U/L ADM SS Basophils (Bld) [#/Vol] 0.1 103/mcL Normal 0.0 - 0.3 10^3/mcL Workflow SS Basophils/100 WBC (Bld) 1.0 % Normal 0.0 - 2.5 % Workflow SS Bilirubin [Mass/Vol] mg/dL Normal 0.20 - 1.20 mg/dL [facility] Comment on above: Interpretive Data: U se of this assay is not recommended for patients undergoing treatment with eltrombopag due to the potential for falsely elevated results. Eosinophils (Bld) [#/Vol] 0.1 103/mcL Normal 0.0 - 0.7 10^3/mcL Workflow SS Eosinophils/100 WBC (Bld) 1.2 % Normal 0.0 - 6.0 % [facility] SS Erythrocyte distribution width (RBC) [Ratio] 15.4 % Normal 11.5 - 15.5 % Workflow SS Estimated Glomerular Filtration Rate 6 ml/min/1.73sqm Invalid Interpretation Code [facility] Comment on above: Interpretive Data: Stages of [...] G/dL ADM SS Hematocrit (Bld) [Volume fraction] 21.8 % Low 40.0 - 52.0 % Workflow SS Hemoglobin (Bld) [Mass/Vol] 7.2 G/dL Low 13.0 - 17.5 G/dL Workflow SS Lymphocytes (Bld) [#/Vol] 1.0 103/mcL Normal 0.9 - 4.3 10^3/mcL Workflow SS Lymphocytes/100 WBC (Bld) 11.6 % [...] mmol/L Normal 98 - 11 0 mEq/L ADM SS CO2 [Moles/Vol] 28 mmol/L Normal 22 - 32 mEq/L AH ADM SS Creatinine [Mass/Vol] 9.51 mg/dL High 0.60 - 1.40 mg/dL ADM SS Comment on above: Interpretive Data: Omar ghotra performed on Timescape analyzer using enzymatic creatinine methodology. Glucose [Mass/Vol] 88 mg/dL Normal 70 - 110 mg/dL ADM SS Potassium [Moles/Vol] 4.3 mmol/L Normal 3.5 - 5.0 mEq/L ADM SS Sodium [Moles/Vol] 138 mmol/L Normal 136 - 145 mEq/L ADM SS Urea nitrogen [Mass/Vol] 30.0 mg/dL High 8.0 - 22.0 mg/dL ADM SS Urea nitrogen/Creatinine [Mass ratio] 3.2 ratio Low 10.0 - 22.0 ratio ADM SS MGon 12-20-2024 Magnesium [Mass/Vol] 2.3 mg/dL Normal 1.6-2.4 [facility] Comment on above: Performed By: #### A DIFF, GFR, BMP, CBC, ANEU #### [place] [address] No Panel InformationOrdered By: SYSTEM SYSTEM on 12-20-2024 Electrolyte Balance 11.0 mEq/L Normal 4.0 - 15 .0 mEq/L ADM SS RFPon 12-20-2024 Albumin Level 3.5 G/dL Normal 3.2-4.8 [facility] Comment on above: Performed By: #### A DIFF, GFR, BMP, CBC, ANEU #### [place] [address] BUN/Creatinine Ratio 3.2 ratio Low 10.0-22.0 [facility] Comment on above: Performed By: #### A DIFF, GFR, BMP, CBC, ANEU #### [address] [address] Calcium [Mass/Vol] 8.4 mg/dL Low 8.7-10.4 [facility] Comment on above: Performed By: #### A DIFF, GFR, BMP, CBC, ANEU #### [place] [address] Chloride [Moles/Vol] 99 mmol/L Normal 98-110 [facility] Comment on above: Performed By: #### A DIFF, GFR, BMP, CBC, ANEU #### [address] [address] CO2 [Moles/Vol] 28 mmol/L Normal 22-32 [facility] Comment on above: Performed By: #### A DIFF, GFR, BMP, CBC, ANEU #### [address] [address] Creatinine [Mass/Vol] 9.51 mg/dL High 0.60-1.40 [facility] Comment on above: Result Comment: Test ing performed on Timescape analyzer using enzymatic creatinine methodology. Performed By: #### A DIFF, GFR, BMP, CBC, ANEU #### [address] [address] Electrolyte Balance 11.0 mEq/L Normal 4.0-15.0 [facility] Comment on above: Performed By: #### A DIFF, GFR, BMP, CBC, ANEU #### [address] [address] Glucose [Mass/Vol] 88 mg/dL Normal 70-110 [facility] Comment on above: Performed By: #### A DIFF, GFR, BMP, CBC, ANEU #### [address] [address] Phosphate [Mass/Vol] 6.4 mg/dL High 2.4-5.1 [facility] Comment on above: Performed By: #### A DIFF, GFR, BMP, CBC, ANEU #### [address] [address] Potassium [Moles/Vol] 4.3 mmol/L Normal 3.5-5.0 [facility] Comment on above: Performed By: #### A DIFF, GFR, BMP, CBC, ANEU #### [address] [address] Sodium [Moles/Vol] 138 mmol/L Normal 136-145 [facility] Comment on above: Performed By: #### A DIFF, GFR, BMP, CBC, ANEU #### [address] [address] Urea nitrogen [Mass/Vol] 30.0 mg/dL High 8.0-22.0 [facility] Comment on above: Performed By: #### A DIFF, GFR, BMP, CBC, ANEU #### [address] [address] .Auto Diffon 12-19-2024 Basophil, Absolute 0.0 10 3/mcL Normal 0.0-0.3 [facility] Comment on above: Performed By: #### A DIFF, GFR, BMP, CBC, ANEU #### [address] [address] Basophils/100 WBC (Bld) 0.6 % Normal 0.0-2.5 [facility] Comment on above: Performed By: #### A DIFF, GFR, BMP, CBC, ANEU #### [address] [address] Eosinophil, Absolute 0.0 10 3/mcL Normal 0.0-0.7 [facility] Comment on above: Performed By: #### A DIFF, GFR, BMP, CBC, ANEU #### [address] [address] Eosinophils/100 WBC (Bld) 0.3 % Normal 0.0-6.0 [facility] Comment on above: Performed By: #### A DIFF, GFR, BMP, CBC, ANEU #### [address] [address] Lymphocyte, Absolute 0.9 10 3/mcL Normal 0.9-4.3 [facility] Comment on above: Performed By: #### A DIFF, GFR, BMP, CBC, ANEU #### [address] [address] Lymphocytes/100 WBC (Bld) 12.9 % Low 20.0-40.0 [facility] Comment on above: Performed By: #### A DIFF, GFR, BMP, CBC, ANEU #### [address] [address] Monocyte, Absolute 0.9 10 3/mcL Normal 0.1-1.4 [facility] Comment on above: Performed By: #### A DIFF, GFR, BMP, CBC, ANEU #### [address] [address] Monocytes/100 WBC (Bld) 13.1 % High 2.0-13.0 [facility] Comment on above: Performed By: #### A DIFF, GFR, BMP, CBC, ANEU #### [address] [address] Neutrophils/100 WBC (Bld) 73.1 % Normal 50.0-75.0 [facility] Comment on above: Performed By: #### A DIFF, GFR, BMP, CBC, ANEU #### [address] [address] .GFRon 12-19-2024 Estimated Glomerular Filtration Rate 5 ml/min/1.73sqm Normal [facility] Comment on above: Result Comment: Stages [...] A DIFF, GFR, BMP, CBC, ANEU #### [address] [address] .NEUABSon 12-19-2024 Neutrophil, Absolute 4.9 10 3/mcL Normal 2.3-8.1 [facility] Comment on above: Performed By: #### A DIFF, GFR, BMP, CBC, ANEU #### [address] [address] BGon 12-19-2024 Base excess Calc (Bld) [Moles/Vol] 3.0 mmol/L Normal [facility] Comment on above: Performed By: #### A DIFF, GFR, BMP, CBC, ANEU #### [address] [address] CO2 [Moles/Vol] 29.5 mmol/L Normal 22.0-30.0 [facility] Comment on above: Performed By: #### A DIFF, GFR, BMP, CBC, ANEU #### [address] [address] HCO3 (Bld) [Moles/Vol] 28.1 mmol/L Normal 21.0-29.0 [facility] Comment on above: Performed By: #### A DIFF, GFR, BMP, CBC, ANEU #### [place] [id number] Oxygen (Bld) [Partial pressure] 141.8 mm[Hg] High 74.0-108.0 [facility] Comment on above: Performed By: #### A DIFF, GFR, BMP, CBC, ANEU #### [place] [address] Oxygen saturation in Blood 99.1 % High 92.0-96.0 [facility] Comment on above: Performed By: #### A DIFF, GFR, BMP, CBC, ANEU #### [place] [id number] pCO2 45.7 mmHg Normal 32.0-46.0 [facility] Comment on above: Performed By: #### A DIFF, GFR, BMP, CBC, ANEU #### [address] [address] pH (Bld) 7.406 [pH] Normal 7.380-7.460 [facility] Comment on above: Performed By: #### A DIFF, GFR, BMP, CBC, ANEU #### [address] [address] CBCon 12-19-2024 Erythrocyte distribution width (RBC) [Ratio] 15.1 % Normal 11.5-15.5 [facility] Comment on above: Performed By: #### A DIFF, GFR, BMP, CBC, ANEU #### [address] [address] Hematocrit (Bld) [Volume fraction] 22.3 % Low 40.0-52.0 [facility] Comment on above: Performed By: #### A DIFF, GFR, BMP, CBC, ANEU #### [address] [address] Hgb 7.3 G/dL Low 13.0-17.5 [facility] Comment on above: Performed By: #### A DIFF, GFR, BMP, CBC, ANEU #### [address] [address] MCH (RBC) [Entitic mass] 27.8 pg Normal 27.0-33.0 [facility] Comment on above: Performed By: #### A DIFF, GFR, BMP, CBC, ANEU #### [place] [address] MCHC 32.7 G/dL Normal 32.0-36.0 [facility] Comment on above: Performed By: #### A DIFF, GFR, BMP, CBC, ANEU #### [place] [address] MCV (RBC) [Entitic vol] 85.0 fL Normal 81.0-100.0 [facility] Comment on above: Performed By: #### A DIFF, GFR, BMP, CBC, ANEU #### [place] [address] Platelet 234 10 3/mcL Normal 150-450 [facility] Comment on above: Performed By: #### A DIFF, GFR, BMP, CBC, ANEU #### [place] [address] Platelet mean volume (Bld) [Entitic vol] 7.6 fL Normal 6.4-10.5 [facility] Comment on above: Performed By: #### A DIFF, GFR, BMP, CBC, ANEU #### [place] [id number] RBC 2.62 10 6/mcL Low 4.50-6.00 [facility] Comment on above: Performed By: #### A DIFF, GFR, BMP, CBC, ANEU #### [place] [id number] WBC 6.7 10 3/mcL Normal 4.5-10.8 [facility] Comment on above: Performed By: #### A DIFF, GFR, BMP, CBC, ANEU #### [place] [id number] CMPon 12-19-2024 Albumin/Globulin [Mass ratio] 1.1 {ratio} Normal 0.9-1.6 [facility] Comment on above: Performed By: #### A DIFF, GFR, BMP, CBC, ANEU #### [place] [address] ALP [Catalytic activity/Vol] 55 U/L Normal 38-126 [facility] Comment on above: Performed By: #### A DIFF, GFR, BMP, CBC, ANEU #### [place] [address] ALT/SGPT <8 Low 12-55 [facility] Comment on above: Performed By: #### A DIFF, GFR, BMP, CBC, ANEU #### [place] [address] AST [Catalytic activity/Vol] 13 U/L Normal 8-34 [facility] Comment on above: Performed By: #### A DIFF, GFR, BMP, CBC, ANEU #### [place] [address] Bili Total 0.20 mg/dL Normal 0.20-1.20 [facility] Comment on above: Result Comment: Use of this assay is not recommended for patients undergoing treatment with eltrombopag due to the potential for falsely elevated results. Performed By: #### A DIFF, GFR, BMP, CBC, ANEU #### [place] [address] Globulin 2.9 G/dL Normal 2.5-4.2 [facility] Comment on above: Performed By: #### A DIFF, GFR, BMP, CBC, ANEU #### [place] [address] Total Protein 6.2 G/dL Normal 5.7-8.2 [facility] Comment on above: Performed By: #### A DIFF, GFR, BMP, CBC, ANEU #### [place] [address] LABORATORYOrdered By: Li Rose on 12-19-2024 CO2 [...] 22.3 % Low 40.0 - 52.0 % AH Workflow SS Hemoglobin (Bld) [Mass/Vol] 7.3 G/dL Low 13.0 - 17.5 G/dL Workflow SS Lymphocytes (Bld) [#/Vol] 0.9 103/mcL Normal 0.9 - 4.3 10^3/mcL AH Workflow SS Lymphocytes/100 WBC (Bld) 12.9 % Low 20.0 - 40.0 % AH Workflow SS Magnesium [Mass/Vol] 2.2 mg/dL Normal 1.6 - 2 .4 mg/dL ADM SS MCH (RBC) [Entitic mass] 27.8 pg Normal 27.0 - 33.0 pg AH Workflow SS MCHC 32.7 G/dL Normal 32.0 - 36.0 G/dL Workflow SS MCV (RBC) [Entitic vol] 85.0 fL Normal 81.0 - 100.0 fL Workflow SS Monocytes (Bld) [#/Vol] 0.9 103/mcL Normal 0.1 - 1.4 10^3/mcL AH Workflow SS Monocytes/100 WBC (Bld) 13.1 % High 2.0 - 13.0 % AH Workflow SS Neutrophils (Bld) [#/Vol] 4.9 103/mcL Normal 2.3 - 8.1 10^3/mcL AH Workflow SS Neutrophils/100 WBC (Bld) 73.1 % Normal 50.0 - 75.0 % Workflow SS Phosphate [Mass/Vol] 8.5 mg/dL High 2.4 - 5 .1 mg/dL ADM SS Platelet mean volume (Bld) [Entitic vol] 7.6 fL Normal 6.4 - 10.5 fL Workflow SS Platelets (Bld) [#/Vol] 234 103/mcL Normal 150 - 450 10^3/mcL AH Workflow SS Protein [Mass/Vol] 6.2 G/dL Normal 5.7 - 8.2 G/dL ADM SS RBC (Bld) [#/Vol] 2.62 106/mcL Low 4.50 - 6.0 0 10^6/mcL AH Workflow SS WBC (Bld) [#/Vol] 6.7 103/mcL Normal 4.5 - 10.8 10^3/mcL Workflow SS LABORATORYOrdered By: Linh Suggs on 12-19-2024 Cholesterol [Mass/Vol] 95 mg/dL Normal 50 - 199 mg/dL ADM SS Comment on above: Interpretive Data: C holesterol Reference Interval: Less than 200 Desirable 200-239 Borderline high risk 240 and above High risk Cholesterol in HDL [Mass/Vol] 24 mg/dL Low 40 - 59 mg/dL ADM SS Cholesterol in LDL [Mass/Vol] 37 mg/dL Normal 0 - 129 mg/dL ADM SS Triglyceride [Mass/Vol] 168 mg/dL High 3 - 149 mg/dL ADM SS LABORATORYOrdered By: Li Roy on 12-19-2024 Blood Glucose Testing Reason Routine (12/19/24 1:04 AM) [facility] Work Phone: Glucose [Mass/Vol] 106 mg/dL Normal 70 - 110 mg/dL [facility] Work Phone: LIPIDon 12-19-2024 Cholesterol [Mass/Vol] 95 mg/dL Normal 50-199 [facility] Comment on above: Result Comment: Chol esterol Reference Interval: Less than 200 Desirable 200-239 Borderline high risk 240 and above High risk Performed By: #### A DIFF, GFR, BMP, CBC, ANEU #### [facility] [address] [place] [id number] Cholesterol in HDL [Mass/Vol] 24 mg/dL Low 40-59 [facility] Comment on above: Performed By: #### A DIFF, GFR, BMP, CBC, ANEU #### [address] [address] Cholesterol in LDL [Mass/Vol] 37 mg/dL Normal 0-129 [facility] Comment on above: Performed By: #### A DIFF, GFR, BMP, CBC, ANEU #### [address] [address] Triglyceride [Mass/Vol] 168 mg/dL High 3-149 [facility] Comment on above: Performed By: #### A DIFF, GFR, BMP, CBC, ANEU #### [address] [address] Laboratory - Chemistry and C hemistry - [...] 32 mEq/L AH ADM SS Creatinine [Mass/Vol] 11.63 mg/dL High 0.60 - 1.40 mg/dL AH ADM SS Comment on above: Interpretive Data: T esting performed on Timescape analyzer using enzymatic creatinine methodology. Glucose [Mass/Vol] 91 mg/dL Normal 70 - 110 mg/dL ADM SS Potassium [Moles/Vol] 5.6 mmol/L High 3.5 - 5.0 mEq/L ADM SS Sodium [Moles/Vol] 138 mmol/L Normal 136 - 145 mEq/L ADM SS Urea nitrogen [Mass/Vol] 44.0 mg/dL High 8.0 - 22.0 mg/dL ADM SS Urea nitrogen/Creatinine [Mass ratio] 3.8 ratio Low 10.0 - 22.0 ratio AH ADM SS MGon 12-19-2024 Magnesium [Mass/Vol] 2.2 mg/dL Normal 1.6-2.4 [facility] Comment on above: Performed By: #### A DIFF, GFR, BMP, CBC, ANEU #### [address] [address] No Panel InformationOrdered By: SYSTEM SYSTEM on 12-19-2024 Electrolyte Balance 12.0 mEq/L Normal 4.0 - 15 .0 mEq/L ADM SS RFPon 12-19-2024 Albumin Level 3.3 G/dL Normal 3.2-4.8 [facility] Comment on above: Performed By: #### A DIFF, GFR, BMP, CBC, ANEU #### [place] [address] BUN/Creatinine Ratio 3.8 ratio Low 10.0-22.0 [facility] Comment on above: Performed By: #### A DIFF, GFR, BMP, CBC, ANEU #### [place] [address] Calcium [Mass/Vol] 8.1 mg/dL Low 8.7-10.4 [facility] Comment on above: Performed By: #### A DIFF, GFR, BMP, CBC, ANEU #### [place] [address] Chloride [Moles/Vol] 98 mmol/L Normal 98-110 [facility] Comment on above: Performed By: #### A DIFF, GFR, BMP, CBC, ANEU #### [place] [address] CO2 [Moles/Vol] 28 mmol/L Normal 22-32 [facility] Comment on above: Performed By: #### A DIFF, GFR, BMP, CBC, ANEU #### [place] [address] Creatinine [Mass/Vol] 11.63 mg/dL High 0.60-1.40 [facility] Comment on above: Result Comment: Test ing performed on Timescape analyzer using enzymatic creatinine methodology. Performed By: #### A DIFF, GFR, BMP, CBC, ANEU #### [place] [address] Electrolyte Balance 12.0 mEq/L Normal 4.0-15.0 [facility] Comment on above: Performed By: #### A DIFF, GFR, BMP, CBC, ANEU #### [place] [id number] Glucose [Mass/Vol] 91 mg/dL Normal 70-110 [facility] Comment on above: Performed By: #### A DIFF, GFR, BMP, CBC, ANEU #### [address] [address] Phosphate [Mass/Vol] 8.5 mg/dL High 2.4-5.1 [facility] Comment on above: Performed By: #### A DIFF, GFR, BMP, CBC, ANEU #### [address] [address] Potassium [Moles/Vol] 5.6 mmol/L High 3.5-5.0 [facility] Comment on above: Performed By: #### A DIFF, GFR, BMP, CBC, ANEU #### [address] [address] Sodium [Moles/Vol] 138 mmol/L Normal 136-145 [facility] Comment on above: Performed By: #### A DIFF, GFR, BMP, CBC, ANEU #### [address] [address] Urea nitrogen [Mass/Vol] 44.0 mg/dL High 8.0-22.0 [facility] Comment on above: Performed By: #### A DIFF, GFR, BMP, CBC, ANEU #### [address] [address] .GFRon 12-18-2024 Estimated Glomerular Filtration Rate 6 ml/min/1.73sqm Normal [facility] Comment on above: Result Comment: Stages [...] A DIFF, GFR, BMP, CBC, ANEU #### [place] [address] Estimated Glomerular Filtration Rate 3 ml/min/1.73sqm Normal [facility] Comment on above: Result Comment: Stages [...] A DIFF, GFR, BMP, CBC, ANEU #### [place] [address] .Manual Diffon 12-18-2024 Basophil %, Manual 0.0 % Normal 0.0-2.5 [facility] Comment on above: Performed By: #### A DIFF, GFR, BMP, CBC, ANEU #### [place] [address] Basophil, Abs Manual 0.0 10 3/mcL Normal 0.0-0.3 [facility] Comment on above: Performed By: #### A DIFF, GFR, BMP, CBC, ANEU #### [place] [address] Eosinophil %, Manual 0.0 % Normal 0.0-6.0 [facility] Comment on above: Performed By: #### A DIFF, GFR, BMP, CBC, ANEU #### [place] [address] Eosinophil, Abs Manual 0.0 10 3/mcL Normal 0.0-0.7 [facility] Comment on above: Performed By: #### A DIFF, GFR, BMP, CBC, ANEU #### [place] [address] Lymphocyte %, Manual 3.0 % Low 20.0-40.0 [facility] Comment on above: Performed By: #### A DIFF, GFR, BMP, CBC, ANEU #### [address] [address] Lymphocyte, Abs Manual 0.3 10 3/mcL Low 0.9-4.3 [facility] Comment on above: Performed By: #### A DIFF, GFR, BMP, CBC, ANEU #### [place] [id number] Monocyte %, Manual 0.0 % Low 2.0-13.0 [facility] Comment on above: Performed By: #### A DIFF, GFR, BMP, CBC, ANEU #### [place] [id number] Monocyte, Abs Manual 0.0 10 3/mcL Low 0.1-1.4 [facility] Comment on above: Performed By: #### A DIFF, GFR, BMP, CBC, ANEU #### [place] [id number] Neutrophil %, Manual 97.0 % High 50.0-75.0 [facility] Comment on above: Performed By: #### A DIFF, GFR, BMP, CBC, ANEU #### [place] [id number] Neutrophil, Abs Manual 9.0 10 3/mcL High 2.3-8.1 [facility] Comment on above: Performed By: #### A DIFF, GFR, BMP, CBC, ANEU #### [place] [id number] Nucleated RBC 0.0 /100 WBC Normal [facility] Comment on above: Performed By: #### A DIFF, GFR, BMP, CBC, ANEU #### [place] [id number] .Morphon 12-18-2024 Platelet Clumps Few Normal [facility] Comment on above: Performed By: #### A DIFF, GFR, BMP, CBC, ANEU #### [place] [address] Platelet Estimate Normal Normal [facility] Comment on above: Performed By: #### A DIFF, GFR, BMP, CBC, ANEU #### [address] [address] Ovalocytes 1+ Normal [facility] Comment on above: Performed By: #### A DIFF, GFR, BMP, CBC, ANEU #### [address] [address] Poik 1+ Normal [facility] Comment on above: Performed By: #### A DIFF, GFR, BMP, CBC, ANEU #### [place] [address] BGon 12-18-2024 Base excess Calc (Bld) [Moles/Vol] -5.8000 mmol/L Normal [facility] Comment on above: Performed By: #### B G #### [place] [address] CO2 [Moles/Vol] 20.7 mmol/L Low 22.0-30.0 [facility] Comment on above: Performed By: #### B G #### [place] [address] HCO3 (Bld) [Moles/Vol] 19.6 mmol/L Low 21.0-29.0 [facility] Comment on above: Performed By: #### B G #### [place] [address] Oxygen (Bld) [Partial pressure] 80.5 mm[Hg] Normal 74.0-108.0 [facility] Comment on above: Performed By: #### B G #### [place] [address] Oxygen saturation in Blood 94.2 % Normal 92.0-96.0 [facility] Comment on above: Performed By: #### B G #### [place] [address] pCO2 37.6 mmHg Normal 32.0-46.0 [facility] Comment on above: Performed By: #### B G #### [place] [id number] pH (Bld) 7.334 [pH] Low 7.380-7.460 [facility] Comment on above: Performed By: #### B G #### [place] [address] CAIONon 12-18-2024 Calcium Ionized 0.93 mmol/L Low 1.12-1.32 [facility] Comment on above: Performed By: #### A DIFF, GFR, BMP, CBC, ANEU #### [place] [id number] CBCon 12-18-2024 WBC 9.3 10 3/mcL Normal 4.5-10.8 [facility] Comment on above: Performed By: #### A DIFF, GFR, BMP, CBC, ANEU #### [place] [address] Platelet 272 10 3/mcL Normal 150-450 [facility] Comment on above: Performed By: #### A DIFF, GFR, BMP, CBC, ANEU #### [place] [address] Platelet mean volume (Bld) [Entitic vol] 7.9 fL Normal 6.4-10.5 [facility] Comment on above: Performed By: #### A DIFF, GFR, BMP, CBC, ANEU #### [place] [address] Erythrocyte distribution width (RBC) [Ratio] 14.9 % Normal 11.5-15.5 [facility] Comment on above: Performed By: #### A DIFF, GFR, BMP, CBC, ANEU #### [place] [address] Hematocrit (Bld) [Volume fraction] 25.1 % Low 40.0-52.0 [facility] Comment on above: Performed By: #### A DIFF, GFR, BMP, CBC, ANEU #### [place] [address] Hgb 8.0 G/dL Low 13.0-17.5 [facility] Comment on above: Performed By: #### A DIFF, GFR, BMP, CBC, ANEU #### [facility] [address] [place], [place] [address] MCH (RBC) [Entitic mass] 27.2 pg Normal 27.0-33.0 [facility] Comment on above: Performed By: #### A DIFF, GFR, BMP, CBC, ANEU #### [place] [address] MCHC 31.8 G/dL Low 32.0-36.0 [facility] Comment on above: Performed By: #### A DIFF, GFR, BMP, CBC, ANEU #### [place] [id number] MCV (RBC) [Entitic vol] 85.3 fL Normal 81.0-100.0 [facility] Comment on above: Performed By: #### A DIFF, GFR, BMP, CBC, ANEU #### [place] [address] RBC 2.94 10 6/mcL Low 4.50-6.00 [facility] Comment on above: Performed By: #### A DIFF, GFR, BMP, CBC, ANEU #### [place] [id number] CMPon 12-18-2024 Albumin Level 3.5 G/dL Normal 3.2-4.8 [facility] Comment on above: Performed By: #### A DIFF, GFR, BMP, CBC, ANEU #### [place] [address] Albumin/Globulin [Mass ratio] 1.1 {ratio} Normal 0.9-1.6 [facility] Comment on above: Performed By: #### A DIFF, GFR, BMP, CBC, ANEU #### [place] [id number] ALP [Catalytic activity/Vol] 63 U/L Normal 38-126 [facility] Comment on above: Performed By: #### A DIFF, GFR, BMP, CBC, ANEU #### [place] [address] ALT/SGPT <8 Low 12-55 [facility] Comment on above: Performed By: #### A DIFF, GFR, BMP, CBC, ANEU #### [place] [id number] AST [Catalytic activity/Vol] 13 U/L Normal 8-34 [facility] Comment on above: Performed By: #### A DIFF, GFR, BMP, CBC, ANEU #### [place] [address] Bili Total 0.30 mg/dL Normal 0.20-1.20 [facility] Comment on above: Result Comment: Use of this assay is not recommended for patients undergoing treatment with eltrombopag due to the potential for falsely elevated results. Performed By: #### A DIFF, GFR, BMP, CBC, ANEU #### [place] [address] BUN/Creatinine Ratio 3.5 ratio Low 10.0-22.0 [facility] Comment on above: Performed By: #### A DIFF, GFR, BMP, CBC, ANEU #### [place] [address] Calcium [Mass/Vol] 8.5 mg/dL Low 8.7-10.4 [facility] Comment on above: Performed By: #### A DIFF, GFR, BMP, CBC, ANEU #### [place] [id number] Chloride [Moles/Vol] 99 mmol/L Normal 98-110 [facility] Comment on above: Performed By: #### A DIFF, GFR, BMP, CBC, ANEU #### [place] [id number] CO2 [Moles/Vol] 26 mmol/L Normal 22-32 [facility] Comment on above: Performed By: #### A DIFF, GFR, BMP, CBC, ANEU #### [place] [id number] Creatinine [Mass/Vol] 9.32 mg/dL High 0.60-1.40 [facility] Comment on above: Result Comment: Test ing performed on Timescape analyzer using enzymatic creatinine methodology. Performed By: #### A DIFF, GFR, BMP, CBC, ANEU #### [place] [id number] Electrolyte Balance 13.0 mEq/L Normal 4.0-15.0 [facility] Comment on above: Performed By: #### A DIFF, GFR, BMP, CBC, ANEU #### [address] [address] Globulin 3.3 G/dL Normal 2.5-4.2 [facility] Comment on above: Performed By: #### A DIFF, GFR, BMP, CBC, ANEU #### [address] [address] Glucose [Mass/Vol] 114 mg/dL High 70-110 [facility] Comment on above: Performed By: #### A DIFF, GFR, BMP, CBC, ANEU #### [address] [address] Potassium [Moles/Vol] 4.7 mmol/L Normal 3.5-5.0 [facility] Comment on above: Performed By: #### A DIFF, GFR, BMP, CBC, ANEU #### [address] [address] Sodium [Moles/Vol] 138 mmol/L Normal 136-145 [facility] Comment on above: Performed By: #### A DIFF, GFR, BMP, CBC, ANEU #### [address] [address] Total Protein 6.8 G/dL Normal 5.7-8.2 [facility] Comment on above: Performed By: #### A DIFF, GFR, BMP, CBC, ANEU #### [address] [address] Urea nitrogen [Mass/Vol] 33.0 mg/dL High 8.0-22.0 [facility] Comment on above: Performed By: #### A DIFF, GFR, BMP, CBC, ANEU #### [address] [address] Albumin Level 3.5 G/dL Normal 3.2-4.8 [facility] Comment on above: Performed By: #### A DIFF, GFR, BMP, CBC, ANEU #### [address] [address] Albumin/Globulin [Mass ratio] 1.0 {ratio} Normal 0.9-1.6 [facility] Comment on above: Performed By: #### A DIFF, GFR, BMP, CBC, ANEU #### [place] [id number] ALP [Catalytic activity/Vol] 67 U/L Normal 38-126 [facility] Comment on above: Performed By: #### A DIFF, GFR, BMP, CBC, ANEU #### [place] [id number] ALT/SGPT <7 Low 12-55 [facility] Comment on above: Performed By: #### A DIFF, GFR, BMP, CBC, ANEU #### [place] [id number] AST [Catalytic activity/Vol] 15 U/L Normal 8-34 [facility] Comment on above: Performed By: #### A DIFF, GFR, BMP, CBC, ANEU #### [place] [address] Bili Total <0.20 Normal 0.20-1.20 [facility] Comment on above: Result Comment: Use of this assay is not recommended for patients undergoing treatment with eltrombopag due to the potential for falsely elevated results. Performed By: #### A DIFF, GFR, BMP, CBC, ANEU #### [place] [address] BUN/Creatinine Ratio 3.9 ratio Low 10.0-22.0 [facility] Comment on above: Performed By: #### A DIFF, GFR, BMP, CBC, ANEU #### [place] [id number] Calcium [Mass/Vol] 8.1 mg/dL Low 8.7-10.4 [facility] Comment on above: Performed By: #### A DIFF, GFR, BMP, CBC, ANEU #### [place] [id number] Chloride [Moles/Vol] 100 mmol/L Normal 98-110 [facility] Comment on above: Performed By: #### A DIFF, GFR, BMP, CBC, ANEU #### [place] [id number] CO2 [Moles/Vol] 20 mmol/L Low 22-32 [facility] Comment on above: Performed By: #### A DIFF, GFR, BMP, CBC, ANEU #### [address] [address] Creatinine [Mass/Vol] 18.40 mg/dL High 0.60-1.40 [facility] Comment on above: Result Comment: Test ing performed on Timescape analyzer using enzymatic creatinine methodology. Performed By: #### A DIFF, GFR, BMP, CBC, ANEU #### [address] [address] Electrolyte Balance 18.0 mEq/L High 4.0-15.0 [facility] Comment on above: Performed By: #### A DIFF, GFR, BMP, CBC, ANEU #### [address] [address] Globulin 3.6 G/dL Normal 2.5-4.2 [facility] Comment on above: Performed By: #### A DIFF, GFR, BMP, CBC, ANEU #### [address] [address] Glucose [Mass/Vol] 165 mg/dL High 70-110 [facility] Comment on above: Performed By: #### A DIFF, GFR, BMP, CBC, ANEU #### [address] [address] Potassium [Moles/Vol] 5.3 mmol/L High 3.5-5.0 [facility] Comment on above: Performed By: #### A DIFF, GFR, BMP, CBC, ANEU #### [address] [address] Sodium [Moles/Vol] 138 mmol/L Normal 136-145 [facility] Comment on above: Performed By: #### A DIFF, GFR, BMP, CBC, ANEU #### [address] [address] Total Protein 7.1 G/dL Normal 5.7-8.2 [facility] Comment on above: Performed By: #### A DIFF, GFR, BMP, CBC, ANEU #### [address] [place], [place] [address] Urea nitrogen [Mass/Vol] 72.0 mg/dL High 8.0-22.0 [facility] Comment on above: Performed By: #### A DIFF, GFR, BMP, CBC, ANEU #### [facility] [address] [place] [address] ANGIOGRAPHY CHEST W/CONTR Shola 12-18-2024 CT [...] 5:24:11 AM Ordering Provider: HÉCTOR JEONG Normal [facility] HBSAGon 12-18-2024 Hep B Surf Ag Non-Reactive Normal Non-Reactive [facility] Comment on above: Performed By: #### A DIFF, GFR, BMP, CBC, ANEU #### [place] [address] LABORATORYOrdered By: Li Roy on 12-18-2024 Blood Glucose Testing Reason Routine (12/18/24 8:49 PM) [facility] Work Phone: Glucose [Mass/Vol] 115 mg/dL High 70 - 110 mg/dL [facility] Work Phone: Blood Glucose Testing Reason Routine (12/18/24 5:15 PM) [facility] Work Phone: Glucose [Mass/Vol] 114 mg/dL High 70 - 110 mg/dL [facility] Work Phone: LABORATORYOrdered By: SYSTEM SYSTEM on 12-18-2024 Albumin/Globulin [Mass ratio] 1.1 {ratio} Normal 0.9 - 1.6 ratio AH ADM SS ALP [Catalytic activity/Vol] 63 U/L Normal 38 - 126 U/L AH ADM SS ALT No additional P-5'-P [Catalytic [...] 3.3 G/dL Normal 2.5 - 4.2 G/dL ADM SS Magnesium [Mass/Vol] 2.2 mg/dL Normal 1.6 - 2 .4 mg/dL ADM SS Protein [Mass/Vol] 6.8 G/dL Normal 5.7 - 8.2 G/dL ADM SS Troponin I.cardiac DL <= 0.01 ng/mL [Mass/Vol] 42 ng/L Normal 0 - 54 ng/L ADM SS Comment on above: Interpretive Data: High Sensitive Troponin I Reference Ranges: Female: 0-34 ng/L Male: 0-54 ng/L Testing performed on [employer] analyzer using direct chemiluminescent technology. Basophils (Bld) [#/Vol] 0.0 103/mcL Normal 0.0 - 0.3 10^3/mcL Workflow SS Basophils/100 WBC (Bld) 0.0 % Normal 0.0 - 2.5 % Workflow SS Eosinophils (Bld) [#/Vol] 0.0 103/mcL [...] SS Natriuretic peptide.B prohormone N-Terminal IA [Mass/Vol] 530927 pg/mL High 0 - 900 pg/mL ADM SS Neutrophils (Bld) [#/Vol] 9.0 103/mcL [...] mg/dL High 2.4 - 5 .1 mg/dL ADM SS Platelet Clumps Few *NA* (12/18/24 [...] ng/L Male: 0-54 ng/L Testing performed on [employer] analyzer using direct chemiluminescent technology. TSH Qn [...] 19.6 mmol/L Low 21.0 - 29.0 mmol/L AH Main Rapid Comm SS Oxygen (Bld) [Partial pressure] 80.5 mm[Hg] Normal 74.0 - 108.0 mm Hg AH Main Rapid Comm SS pCO2 37.6 mm[Hg] Normal 32.0 - 46.0 mm Hg AH Main Rapid Comm SS pH (Bld) 7.334 [pH] Low 7.380 - 7.460 [facility] Main Rapid Comm SS Sodium [Moles/Vol] -5.8000 mmol/L Invalid Interpretation Code AH Main Rapid Comm SS MGon 12-18-2024 Magnesium [Mass/Vol] 2.2 mg/dL Normal 1.6-2.4 [facility] Comment on above: Performed By: #### A DIFF, GFR, BMP, CBC, ANEU #### [place] [address] Magnesium [Mass/Vol] 2.6 mg/dL High 1.6-2.4 [facility] Comment on above: Performed By: #### A DIFF, GFR, BMP, CBC, ANEU #### [place] [address] PBNPon 12-18-2024 Natriuretic peptide B (Bld) [Mass/Vol] 346371 pg/mL High 0-900 [facility] Comment on above: Performed By: #### A DIFF, GFR, BMP, CBC, ANEU #### [place] [address] [facility] Phosphate [Mass/Vol] 8.0 mg/dL High 2.4-5.1 [facility] Comment on above: Performed By: #### A DIFF, GFR, BMP, CBC, ANEU #### [address] 12-18-2024 High Sensitivity Troponin I 42 ng/L Normal 0-54 [facility] Comment on above: Result Comment: High Sensitive Troponin I Reference Ranges: Female: 0-34 ng/L Male: 0-54 ng/L Testing performed on [employer] IM analyzer using direct chemiluminescent technology. Performed By: #### A DIFF, GFR, BMP, CBC, ANEU #### [place] [address] High Sensitivity Troponin I 37 ng/L Normal 0-54 [facility] Comment on above: Result Comment: High Sensitive Troponin I Reference Ranges: Female: 0-34 ng/L Male: 0-54 ng/L Testing performed on [employer] IM analyzer using direct chemiluminescent technology. Performed By: #### A DIFF, GFR, BMP, CBC, ANEU #### [place] [address] TSHon 12-18-2024 TSH 6.993 mIU/mL High 0.550-4.780 [facility] Comment on above: Performed By: #### A DIFF, GFR, BMP, CBC, ANEU #### [address] [address] XR CHEST 1 VIEWon 12-18-2024 XR CHEST [...] Date: 12/18/2024 8:34:21 AM Ordering Provider: [address] [facility] XR CHEST 1 VIEW ORIGINAL EXAMINATION: [...] 6:50:32 AM Ordering Provider: HÉCTOR JEONG Normal [facility] .Auto Diffon 12-17-2024 Basophil, Absolute 0.1 10 3/mcL Normal 0.0-0.3 [facility] Comment on above: Performed By: #### T ROPHS, PRO, GFR, CBC, ANEU, PBNP, CMP, ADIFF, APTT, MDSamanta #### [address] [address] Basophils/100 WBC (Bld) 1.3 % Normal 0.0-2.5 [facility] Comment on above: Performed By: #### T ROPHS, PRO, GFR, CBC, ANEU, PBNP, CMP, ADIFF, APTT, MDW #### [place] [address] [place], [place] [address] Eosinophil, Absolute 0.2 10 3/mcL Normal 0.0-0.7 [facility] Comment on above: Performed By: #### T ROPHS, PRO, GFR, CBC, ANEU, PBNP, CMP, ADIFF, APTT, MDW #### [address] [address] Eosinophils/100 WBC (Bld) 4.3 % Normal 0.0-6.0 [facility] Comment on above: Performed By: #### T ROPHS, PRO, GFR, CBC, ANEU, PBNP, CMP, ADIFF, APTT, MDW #### [address] [address] Lymphocyte, Absolute 0.8 10 3/mcL Low 0.9-4.3 [facility] Comment on above: Performed By: #### T ROPHS, PRO, GFR, CBC, ANEU, PBNP, CMP, ADIFF, APTT, MDW #### [address] [address] Lymphocytes/100 WBC (Bld) 17.5 % Low 20.0-40.0 [facility] Comment on above: Performed By: #### T ROPHS, PRO, GFR, CBC, ANEU, PBNP, CMP, ADIFF, APTT, MDSamanta #### [address] [address] Monocyte, Absolute 0.8 10 3/mcL Normal 0.1-1.4 [facility] Comment on above: Performed By: #### T ROPHS, PRO, GFR, CBC, ANEU, PBNP, CMP, ADIFF, APTT, KAYLA #### [address] [address] Monocytes/100 WBC (Bld) 16.1 % High 2.0-13.0 [facility] Comment on above: Performed By: #### T ROPHS, PRO, GFR, CBC, ANEU, PBNP, CMP, ADIFF, APTT, MDW #### [address] [address] Neutrophils/100 WBC (Bld) 60.8 % Normal 50.0-75.0 [facility] Comment on above: Performed By: #### T ROPHS, PRO, GFR, CBC, ANEU, PBNP, CMP, ADIFF, APTT, MDW #### [address] [address] .GFRon 12-17-2024 Estimated Glomerular Filtration Rate 3 ml/min/1.73sqm Normal [facility] Comment on above: Result Comment: Stages of [...] the eGFR results. Performed By: #### T AMAYA, PRO, GFR, CBC, ANEU, PBNP, CMP, ADIFF, APTT, KAYLA ####[address] [address] .MDWon 12-17-2024 Monocyte Distribution Width 16.34 Normal 0.00-20.00 [facility] Comment on above: Result Comment: For ED adult patients suspected of sepsis, MDW<=20.0 does not rule out sepsis or risk of sepsis Performed By: #### T AMAYA, PRO, GFR, CBC, ANEU, PBNP, CMP, ADIFF, APTT, KAYLA #### [address] [address] .NEUABSon 12-17-2024 Neutrophil, Absolute 2.9 10 3/mcL Normal 2.3-8.1 [facility] Comment on above: Performed By: #### T ROPHS, PRO, GFR, CBC, ANEU, PBNP, CMP, ADIFF, APTT, MDW #### [address] [address] APTTon 12-17-2024 aPTT Coag (Bld) [Time] 38.0 s High 25.0-35.0 [facility] Comment on above: Result Comment: For Heparin anticoagulation therapy, the recommended therapeutic range is: 45.4-75.9 seconds. Patients on heparin therapy may have an extreme result. Performed By: #### T CARENHS, PRO, GFR, CBC, ANEU, PBNP, CMP, ADIFF, APTT, MDSamanta #### [address] [address] CBCon 12-17-2024 Erythrocyte distribution width (RBC) [Ratio] 14.9 % Normal 11.5-15.5 [facility] Comment on above: Performed By: #### T CARENHS, PRO, GFR, CBC, ANEU, PBNP, CMP, ADIFF, APTT, KAYLA #### [place] [address] Hematocrit (Bld) [Volume fraction] 24.4 % Low 40.0-52.0 [facility] Comment on above: Performed By: #### T CARENHS, PRO, GFR, CBC, ANEU, PBNP, CMP, ADIFF, APTT, KAYLA #### [place] [address] Hgb 8.0 G/dL Low 13.0-17.5 [facility] Comment on above: Performed By: #### T CARENHS, PRO, GFR, CBC, ANEU, PBNP, CMP, ADIFF, APTT, MDW #### [place] [address] MCH (RBC) [Entitic mass] 28.0 pg Normal 27.0-33.0 [facility] Comment on above: Performed By: #### T CARENHS, PRO, GFR, CBC, ANEU, PBNP, CMP, ADIFF, APTT, MDW #### [place] [address] MCHC 32.7 G/dL Normal 32.0-36.0 [facility] Comment on above: Performed By: #### T ROPHS, PRO, GFR, CBC, ANEU, PBNP, CMP, ADIFF, APTT, MDW #### [address] [address] MCV (RBC) [Entitic vol] 85.5 fL Normal 81.0-100.0 [facility] Comment on above: Performed By: #### T AMAYA, PRO, GFR, CBC, ANEU, PBNP, CMP, ADIFF, APTT, MDW #### [address] [address] Platelet 239 10 3/mcL Normal 150-450 [facility] Comment on above: Performed By: #### T ROPHS, PRO, GFR, CBC, ANEU, PBNP, CMP, ADIFF, APTT, MDW #### [address] [address] Platelet mean volume (Bld) [Entitic vol] 7.2 fL Normal 6.4-10.5 [facility] Comment on above: Performed By: #### T AMAYA, PRO, GFR, CBC, ANEU, PBNP, CMP, ADIFF, APTT, MDW #### [address] [address] RBC 2.85 10 6/mcL Low 4.50-6.00 [facility] Comment on above: Performed By: #### T AMAYA, PRO, GFR, CBC, ANEU, PBNP, CMP, ADIFF, APTT, MDW #### [address] [address] WBC 4.8 10 3/mcL Normal 4.5-10.8 [facility] Comment on above: Performed By: #### T CARENHS, PRO, GFR, CBC, ANEU, PBNP, CMP, ADIFF, APTT, MDW #### [address] [address] CMPon 12-17-2024 Albumin Level 3.3 G/dL Low 3.5-5.0 [facility] Comment on above: Performed By: #### T CARENHS, PRO, GFR, CBC, ANEU, PBNP, CMP, ADIFF, APTT, MDW #### [address] [address] Albumin/Globulin [Mass ratio] 0.8 {ratio} Low 1.1-2.5 [facility] Comment on above: Performed By: #### T ROPHS, PRO, GFR, CBC, ANEU, PBNP, CMP, ADIFF, APTT, MDW #### [address] [address] ALP [Catalytic activity/Vol] 72 U/L Normal 40-135 [facility] Comment on above: Performed By: #### T ROPHS, PRO, GFR, CBC, ANEU, PBNP, CMP, ADIFF, APTT, MDW #### [address] [address] ALT [Catalytic activity/Vol] 15 U/L Low 16-63 [facility] Comment on above: Performed By: #### T ROPHS, PRO, GFR, CBC, ANEU, PBNP, CMP, ADIFF, APTT, MDW #### [place] [id number] AST [Catalytic activity/Vol] 10 U/L Normal 10-40 [facility] Comment on above: Performed By: #### T CARENHS, PRO, GFR, CBC, ANEU, PBNP, CMP, ADIFF, APTT, KAYLA #### [address] [address] Bili Total 0.4 mg/dL Normal 0.2-1.0 [facility] Comment on above: Result Comment: Use of this assay is not recommended for patients undergoing treatment with eltrombopag due to the potential for falsely elevated results. Performed By: #### T ROPHS, PRO, GFR, CBC, ANEU, PBNP, CMP, ADIFF, APTT, MDW #### [address] [address] BUN/Creatinine Ratio 4 ratio Low 7-27 [facility] Comment on above: Performed By: #### T ROPHS, PRO, GFR, CBC, ANEU, PBNP, CMP, ADIFF, APTT, MDW #### [address] [address] Calcium [Mass/Vol] 7.8 mg/dL Low 8.4-10.2 [facility] Comment on above: Performed By: #### T AMAYA, PRO, GFR, CBC, ANEU, PBNP, CMP, ADIFF, APTT, KAYLA #### [address] [address] Chloride [Moles/Vol] 103 mmol/L Normal 98-107 [facility] Comment on above: Performed By: #### T AMAYA, PRO, GFR, CBC, ANEU, PBNP, CMP, ADIFF, APTT, KAYLA #### [address] [address] CO2 [Moles/Vol] 28 mmol/L Normal 22-29 [facility] Comment on above: Performed By: #### T AMAYA, PRO, GFR, CBC, ANEU, PBNP, CMP, ADIFF, APTT, KAYLA #### [address] [address] Creatinine [Mass/Vol] 16.91 mg/dL High 0.67-1.17 [facility] Comment on above: Performed By: #### T AMAYA, PRO, GFR, CBC, ANEU, PBNP, CMP, ADIFF, APTT, KAYLA #### [address] [address] Electrolyte Balance 13.0 mEq/L Normal 4.0-15.0 [facility] Comment on above: Performed By: #### T AMAYA, PRO, GFR, CBC, ANEU, PBNP, CMP, ADIFF, APTT, KAYLA #### [address] [address] Globulin 4.2 G/dL Normal 2.7-4.4 [facility] Comment on above: Performed By: #### T AMAYA, PRO, GFR, CBC, ANEU, PBNP, CMP, ADIFF, APTT, KAYLA #### [address] [address] Glucose [Mass/Vol] 110 mg/dL High 70-105 [facility] Comment on above: Performed By: #### T CARENHS, PRO, GFR, CBC, ANEU, PBNP, CMP, ADIFF, APTT, KAYLA #### [address] [address] Potassium [Moles/Vol] 4.5 mmol/L Normal 3.5-5.1 [facility] Comment on above: Performed By: #### T CARENHS, PRO, GFR, CBC, ANEU, PBNP, CMP, ADIFF, APTT, KAYLA #### [address] [address] Sodium [Moles/Vol] 144 mmol/L Normal 136-145 [facility] Comment on above: Performed By: #### T AMAYA, PRO, GFR, CBC, ANEU, PBNP, CMP, ADIFF, APTT, KAYLA #### [address] [address] Total Protein 7.5 G/dL Normal 6.4-8.2 [facility] Comment on above: Performed By: #### T AMAYA, PRO, GFR, CBC, ANEU, PBNP, CMP, ADIFF, APTT, KAYLA #### [address] [address] Urea nitrogen [Mass/Vol] 73 mg/dL High 7-18 [facility] Comment on above: Performed By: #### T AMAYA, PRO, GFR, CBC, ANEU, PBNP, CMP, ADIFF, APTT, KAYLA #### [address] [address] LABORATORYOrdered By: SYSTEM SYSTEM on 12-17-2024 Troponin I.cardiac DL <= 0.01 ng/mL [Mass/Vol] 29 ng/L Normal 0 - 76 ng/L AO ADM SS Comment on above: Interpretive Data: H igh Sensitive Troponin I Reference Ranges: Female: 0-51 ng/L Male: 0-76 ng/L Testing performed on [employer] using a homogeneous sandwich chemiluminescent immunoassay based on [employer] technology. Albumin BCP dye [Mass/Vol] 3.3 G/dL [...] Comment on above: Interpretive Data: [employer] (CHEST, 1991, 102:312S-25S) [...] ng/L Male: 0-76 ng/L Testing performed on [employer] using a homogeneous sandwich chemiluminescent immunoassay based on [employer] technology. Urea nitrogen [Mass/Vol] 73 mg/dL High [...] AO Chemistry S PBNPon 12-17-2024 N-Terminal proBNP >33[address] High 0-125 [facility] Comment on above: Performed By: #### T AMAYA, PRO, GFR, CBC, ANEU, PBNP, CMP, ADIFF, APTT, AKYLA ####[address] [place], [place] [address] PROon 12-17-2024 PT Coag (PPP) [Time] 11.9 s Normal 9.0-14.4 [facility] Comment on above: Performed By: #### T AMAYA, PRO, GFR, CBC, ANEU, PBNP, CMP, ADIFF, APTT, KAYLA #### [address] [place] [address] [place], [place] [address] PT International Ratio 1.0 Normal [facility] Comment on above: Result Comment: [employer] (CHEST, 1992, 102:312S-25S) recommended therapeutic range for oral anticoagulant therapy is: LOW RISK: Prophylaxis of venous thrombosis INR: 2.0-3.0 Treatment of pulmonary embolism 2.0-3.0 Prevention of systemic embolism 2.0-3.0 HIGH RISK: Mechanical prosthetic valves 2.5-3.5 Performed By: #### T AMAYA, PRO, GFR, CBC, ANEU, PBNP, CMP, ADIFF, APTT, KAYLA #### [address] [place] [id number] [place], [place] [address] TROPHSon 12-17-2024 High Sensitivity Troponin I 29 ng/L Normal 0-76 [facility] Comment on above: Result Comment: High Sensitive Troponin I Reference Ranges: Female: 0-51 ng/L Male: 0-76 ng/L Testing performed on [employer] using a homogeneous sandwich chemiluminescent immunoassay based on [employer] technology. Performed By: #### T AMAYA ####[address] [place], [place] [address] High Sensitivity Troponin I 35 ng/L Normal 0-76 [facility] Comment on above: Result Comment: High Sensitive Troponin I Reference Ranges: Female: 0-51 ng/L Male: 0-76 ng/L Testing performed on [employer] using a homogeneous sandwich chemiluminescent immunoassay based on [employer] technology. Performed By: #### T ROPHS, PRO, GFR, CBC, ANEU, PBNP, CMP, ADIFF, APTT, MDW #### [place] [address] [place], [place] [address] XR CHEST 1 VIEWon 12-17-2024 XR CHEST [...] 11:40:51 PM Ordering Provider: HÉCTOR JEONG Normal [facility] Blood type and Indirect anti body screen panel (Bld)on 12-08-2024 ABO group Nom (Bld) O [facility] Blood group antibody screen Ql Negative [facility] D Ag Ql (Bld) Positive [facility] ABO group Nom (Bld) O [facility] Comment on above: Performed By: #### 3 4532-2 #### MARTINEZ Al ([id number]) [facility] ([facility]) [address] [place] [address] Blood group antibody screen Ql Negative Normal Comment on above: Performed By: #### 3 4532-2 #### MARTINEZ Al ([id number]) [facility] ([facility]) [address] [place] [address] D Ag Ql (Bld) Positive Normal Comment on above: Performed By: #### 3 4532-2 #### MARTINEZ Al ([id number]) [facility] ([facility]) [address] [place] [address] CBC W Auto Differential pane l (Bld)on 12-08-2024 Basophils (Bld) [#/Vol] 0.01 10*3/uL [facility] Basophils/100 WBC (Bld) 0.2 % 0.0 - 2.0 % [facility] Eosinophils (Bld) [#/Vol] 0.01 10*3/uL [facility] Eosinophils/100 WBC (Bld) 0.2 % 0.0 - 6.0 % [facility] Erythrocyte distribution width (RBC) [Ratio] 13.2 % 11.5 - 14.5 % [facility] Hematocrit (Bld) [Volume fraction] 23.2 % Low 41.0 - 52.0 % [facility] Hemoglobin (Bld) [Mass/Vol] 7.7 g/dL Low 13.5 - 17.5 g/dL [facility] Immature granulocytes (Bld) [#/Vol] 0.01 10*3/uL [facility] Immature granulocytes/100 WBC (Bld) 0.2 % 0.0 - 0.9 % [facility] Comment on above: Immature Granulocyte Count (IG) includes promyelocytes, myelocytes and metamyelocytes but does not include bands. Percent differential counts (%) should be interpreted in the context of the absolute cell counts (cells/UL). Interpretation and review of laboratory results Abnormal [facility] Lymphocytes (Bld) [#/Vol] 0.37 10*3/uL Low [facility] Lymphocytes/100 WBC (Bld) 7.9 % 13.0 - 44.0 % [facility] MCH (RBC) [Entitic mass] 27.4 pg 26.0 - 34.0 pg [facility] MCHC (RBC) [Mass/Vol] 33.2 g/dL 32.0 - 36.0 g/dL [facility] MCV (RBC) [Entitic vol] 83 fL 80 - 100 fL [facility] Monocytes (Bld) [#/Vol] 0.09 10*3/uL Low [facility] Monocytes/100 WBC (Bld) 1.9 % 2.0 - 10.0 % [facility] Neutrophils (Bld) [#/Vol] 4.22 10*3/uL [facility] Comment on above: Percent differential counts (%) should be interpreted in the context of the absolute cell counts (cells/uL). Neutrophils/100 WBC (Bld) 89.6 % 40.0 - 80.0 % [facility] Nucleated RBC/100 WBC (Bld) [Ratio] 0 % [facility] Platelets (Bld) [#/Vol] 191 10*3/uL [facility] RBC (Bld) [#/Vol] 2.81 10*6/uL [facility] WBC (Bld) [#/Vol] 4.7 10*3/uL [facility] Basophils (Bld) [#/Vol] 0.01 x10*3/uL Normal 0.00-0.10 Comment on above: Performed By: #### 5 7021-8 #### MARTINEZ Al ([id number]) [facility] ([facility]) [id number] [place] [address] Basophils/100 WBC (Bld) 0.2 % Normal 0.0-2.0 Comment on above: Performed By: #### 5 7021-8 #### MARTINEZ Al (52906) [facility] ([facility]) [address] [place] [address] Eosinophils (Bld) [#/Vol] 0.01 x10*3/uL Normal 0.00-0.70 Comment on above: Performed By: #### 5 7021-8 #### MARTINEZ Al ([id number]) [facility] ([facility]) [address] [place] [address] Eosinophils/100 WBC (Bld) 0.2 % Normal 0.0-6.0 Comment on above: Performed By: #### 5 7021-8 #### MARTINEZ Al ([id number]) [facility] ([facility]) [address] [place] [address] Erythrocyte distribution width (RBC) [Ratio] 13.2 % Normal 11.5-14.5 Comment on above: Performed By: #### 5 7021-8 #### MARTINEZ Al ([id number]) [facility] ([facility]) [address] [place] [address] Hematocrit (Bld) [Volume fraction] 23.2 % Low 41.0-52.0 Comment on above: Performed By: #### 5 7021-8 #### MARTINEZ Al ([id number]) [facility] ([facility]) [address] [place] [address] Hemoglobin (Bld) [Mass/Vol] 7.7 g/dL Low 13.5-17.5 Comment on above: Performed By: #### 5 7021-8 #### MARTINEZ Al ([id number]) [facility] ([facility]) [address] [place] [address] Immature granulocytes (Bld) [#/Vol] 0.01 x10*3/uL Normal 0.00-0.70 Comment on above: Performed By: #### 5 7021-8 #### MARTINEZ Al ([id number]) [facility] ([facility]) [address] [place] [address] Immature granulocytes/100 WBC (Bld) 0.2 % Normal 0.0-0.9 Comment on above: Result Comment: Willa ture Granulocyte Count (IG) includes promyelocytes, myelocytes and metamyelocytes but does not include bands. Percent differential counts (%) should be interpreted in the context of the absolute cell counts (cells/UL). Performed By: #### 5 7021-8 #### MARTINEZ Al ([id number]) [facility] ([facility]) [address] [place] [address] Lymphocytes (Bld) [#/Vol] 0.37 x10*3/uL Low 1.20-4.80 Comment on above: Performed By: #### 5 7021-8 #### MARTINEZ Al ([id number]) [facility] ([facility]) [address] [place] [address] Lymphocytes/100 WBC (Bld) 7.9 % Normal 13.0-44.0 Comment on above: Performed By: #### 5 7021-8 #### MARTINEZ Al ([id number]) [facility] ([facility]) [address] [place] [address] MCH (RBC) [Entitic mass] 27.4 pg Normal 26.0-34.0 Comment on above: Performed By: #### 5 7021-8 #### MARTINEZ Al ([id number]) [facility] ([facility]) [address] [place] [address] MCHC (RBC) [Mass/Vol] 33.2 g/dL Normal 32.0-36.0 [facility] Comment on above: Performed By: #### 5 7021-8 #### MARTINEZ Al ([id number]) [facility] ([facility]) [address] [place] [address] MCV (RBC) [Entitic vol] 83 fL Normal 80-100 Comment on above: Performed By: #### 5 7021-8 #### MARTINEZ Al ([id number]) [facility] ([facility]) [address] [place] [address] Monocytes (Bld) [#/Vol] 0.09 x10*3/uL Low 0.10-1.00 Comment on above: Performed By: #### 5 7021-8 #### MARTINEZ Al ([id number]) [facility] ([facility]) [address] [place] [address] Monocytes/100 WBC (Bld) 1.9 % Normal 2.0-10.0 Comment on above: Performed By: #### 5 7021-8 #### MARTINEZ Al ([id number]) [facility] ([facility]) [address] [place] [address] Neutrophils (Bld) [#/Vol] 4.22 x10*3/uL Normal 1.20-7.70 Comment on above: Result Comment: Perc ent differential counts (%) should be interpreted in the context of the absolute cell counts (cells/uL). Performed By: #### 5 7021-8 #### MARTINEZ Al ([id number]) [facility] ([facility]) [id number] [place] [address] Neutrophils/100 WBC (Bld) 89.6 % Normal 40.0-80.0 Comment on above: Performed By: #### 5 7021-8 #### MARTINEZ Al ([id number]) [facility] ([facility]) [address] [place] [address] Nucleated RBC/100 WBC (Bld) [Ratio] 0.0 /100 WBCs Normal 0.0-0.0 Comment on above: Performed By: #### 5 7021-8 #### MARTINEZ Al ([id number]) [facility] ([facility]) [address] [place] [address] Platelets (Bld) [#/Vol] 191 x10*3/uL Normal 150-450 Comment on above: Performed By: #### 5 7021-8 #### MARTINEZ Al ([id number]) [facility] ([facility]) [address] [place] [address] RBC (Bld) [#/Vol] 2.81 x10*6/uL Low 4.50-5.90 [facility] Comment on above: Performed By: #### 5 7021-8 #### MARTINEZ Al ([id number]) [facility] ([facility]) [address] [place] [address] WBC (Bld) [#/Vol] 4.7 x10*3/uL Normal 4.4-11.3 [facility] Comment on above: Performed By: #### 5 7021-8 #### MARTINEZ Al ([id number]) [facility] ([facility]) [address] [place] [address] Comprehensive metabolic 2000 panelon 12-08-2024 Albumin BCP dye [Mass/Vol] 4 g/dL 3.4 - 5.0 g/dL [facility] ALP [Catalytic activity/Vol] 62 U/L 33 - 120 U/L [facility] ALT With P-5'-P [Catalytic activity/Vol] 11 U/L 10 - 52 U/L [facility] Comment on above: Patients treated wit h Sulfasalazine may generate falsely decreased results for ALT. Anion gap [Moles/Vol] 19 mmol/L 10 - 2 0 mmol/L [facility] AST With P-5'-P [Catalytic activity/Vol] 12 U/L 9 - 39 U/L [facility] Bilirubin [Mass/Vol] 0.5 mg/dL 0.0 - 1 .2 mg/dL [facility] Calcium [Mass/Vol] 8.5 mg/dL Low 8.6 - 10. 6 mg/dL [facility] Chloride [Moles/Vol] 93 mmol/L Low 98 - 10 7 mmol/L [facility] CO2 [Moles/Vol] 27 mmol/L 21 - 32 mmol/L [facility] Creatinine [Mass/Vol] 13.53 mg/dL High 0.50 - 1.30 mg/dL [facility] GFR/1.73 sq M.predicted among non-blacks MDRD (S/P/Bld) [Vol rate/Area] 4 mL/min/{1.73_m2} Low - PINF [facility] Comment on above: Calculations of deanna mated GFR are performed using the 2020 CKD-EPI Study Refit equation without the race variable for the IDMS-Traceable creatinine methods. https://jasn.asnjournals.org/content//ASN.835009 3317 Glucose [Mass/Vol] 136 mg/dL High 74 - 99 mg/dL [facility] Interpretation and review of laboratory results Abnormal [facility] Potassium [Moles/Vol] 5.4 mmol/L High 3.5 - 5.3 mmol/L [facility] Protein [Mass/Vol] 7.4 g/dL 6.4 - 8.2 g/dL [facility] Sodium [Moles/Vol] 134 mmol/L Low 136 - 145 mmol/L [facility] Urea nitrogen [Mass/Vol] 55 mg/dL High 6 - 23 mg/dL [facility] Albumin BCP dye [Mass/Vol] 4.0 g/dL Normal 3.4-5.0 Comment on above: Performed By: #### 2 4323-8 #### MARTINEZ Al ([id number]) [facility] ([facility]) [address] [place] [address] ALP [Catalytic activity/Vol] 62 U/L Normal 33-120 Comment on above: Performed By: #### 2 4323-8 #### MARTINEZ Al (49752) [facility] ([facility]) [address] [place] [address] ALT With P-5'-P [Catalytic activity/Vol] 11 U/L Normal 10-52 Comment on above: Result Comment: Elana ents treated with Sulfasalazine may generate falsely decreased results for ALT. Performed By: #### 2 4323-8 #### MARTINEZ Al ([id number]) [facility] ([facility]) [address] [place] [address] Anion gap [Moles/Vol] 19 mmol/L Normal 10-20 [facility] Comment on above: Performed By: #### 2 4323-8 #### MARTINEZ Al (61626) [facility] ([facility]) [address] [place] [address] AST With P-5'-P [Catalytic activity/Vol] 12 U/L Normal 9-39 Comment on above: Performed By: #### 2 4323-8 #### MARTINEZ Al ([id number]) [facility] ([facility]) [address] [place] [address] Bilirubin [Mass/Vol] 0.5 mg/dL Normal 0.0-1.2 [facility] Comment on above: Performed By: #### 2 4323-8 #### MARTINEZ Al ([id number]) [facility] ([facility]) [id number] [place] [address] Calcium [Mass/Vol] 8.5 mg/dL Low 8.6-10.6 [facility] Comment on above: Performed By: #### 2 4323-8 #### MARTINEZ Al ([id number]) [facility] ([facility]) [address] [place] [address] Chloride [Moles/Vol] 93 mmol/L Low 98-107 [facility] Comment on above: Performed By: #### 2 4323-8 #### MARTINEZ Al ([id number]) [facility] ([facility]) [address] [place] [address] CO2 [Moles/Vol] 27 mmol/L Normal 21-32 [facility] Comment on above: Performed By: #### 2 4323-8 #### MARTINEZ TALBERT L ([id number]) [facility] ([facility]) [address] [place] [address] Creatinine [Mass/Vol] 13.53 mg/dL High 0.50-1.[address] [facility] Comment on above: Performed By: #### 2 4323-8 #### MARTINEZ TALBERT L ([id number]) [facility] ([facility]) [id number] [place] [id number] Glomerular filtration rate/1.73 sq M.predicted 4 mL/min/1.73m*2 Low >60 Comment on above: Result Comment: Calc ulations of estimated GFR are performed using the 2020 CKD-EPI Study Refit equation without the race variable for the IDMS-Traceable creatinine methods. https://jasn.asnjournals.org/content//ASN.387928 8114 Performed By: #### 2 4323-8 #### MARTINEZ Al ([id number]) [facility] ([facility]) [address] [place] [address] Glucose [Mass/Vol] 136 mg/dL High 74-99 [facility] Comment on above: Performed By: #### 2 4323-8 #### MARTINEZ Al ([id number]) [facility] ([facility]) [address] [place] [address] Potassium [Moles/Vol] 5.4 mmol/L High 3.5-5.3 [facility] Comment on above: Performed By: #### 2 4323-8 #### MARTINEZ Al ([id number]) [facility] ([facility]) [address] [place] [address] Protein [Mass/Vol] 7.4 g/dL Normal 6.4-8.2 [facility] Comment on above: Performed By: #### 2 4323-8 #### MARTINEZ Al ([id number]) [facility] ([facility]) [address] [place] [address] Sodium [Moles/Vol] 134 mmol/L Low 136-145 [facility] Comment on above: Performed By: #### 2 4323-8 #### MARTINEZ Al ([id number]) [facility] ([facility] [facility] [id number] [place] [address] 22937 Urea nitrogen [Mass/Vol] 55 mg/dL High 6-23 Comment on above: Performed By: #### 2 4323-8 #### MARTINEZ Al ([id number]) [facility] ([facility]) [id number] [place], [place] [id number] ECG 12-LEADon 12-08-2024 ECG 12-LEAD Ventricular Rate 76 Atrial Rate 76 P-R Interval 158 QRS Duration 96 Q-T Interval 436 QTC Calculation(Bazett) 490 P [place] 51 R [place] -12 T [place] 83 QRS Count 12 Q Onset 214 P Onset 135 P Offset 186 T Offset 432 QTC Fredericia 471 Diagnosis Normal sinus rhythm Minimal voltage criteria for LVH, may be normal variant ( Moises product ) QTcB >= 480 msec Abnormal ECG When compared with ECG of 20-OCT-2018 14:38, QRS axis Shifted left See ED provider note for full interpretation and clinical correlation Confirmed by Francie Chandler ([id number]) on 12/09/2024 12:14:04 AM Normal [facility] Gas panel (BldV)on Anion gap 4 (BldV) [Moles/Vol] 11 mmol/L 10.0 - 25.0 mmol/L [facility] Base excess Calc (BldV) [Moles/Vol] 3.4 mmol/L High -2.0 - 3.0 mmol/L [facility] Calcium.ionized (BldV) [Moles/Vol] 0.99 mmol/L Low 1.10 - 1.33 mmol/L [facility] Chloride (BldV) [Moles/Vol] 98 mmol/L 98 - 107 mmol/L [facility] CO2 (BldV) [Partial pressure] 45 mm[Hg] [facility] Glucose [Mass/Vol] 143 mg/dL High 74 - 99 mg/dL [facility] HCO3 (Bld) [Moles/Vol] 28.5 mmol/L High 22.0 - 26.0 mmol/L [facility] Hematocrit Est (Bld) [Volume fraction] 25 % Low 41.0 - 52.0 % [facility] Hemoglobin (Bld) [Mass/Vol] 8.2 g/dL Low 13.5 - 17.5 g/dL [facility] Inhaled oxygen concentration 21 % [facility] Interpretation and review of laboratory results Abnormal [facility] Lactate (BldV) [Moles/Vol] 0.7 mmol/L 0.4 - 2.0 mmol/L [facility] Oxygen (BldV) [Partial pressure] 32 mm[Hg] Low [facility] Oxygen saturation in Venous blood 44 % Low 45 - 75 % [facility] Oxyhemoglobin (BldV) [Mass fraction] 42.6 % Low 45.0 - 75.0 % [facility] pH (BldV) 7.41 [pH] 7.33 - 7.43 pH [facility] Potassium (BldV) [Moles/Vol] 5.9 mmol/L High 3.5 - 5.3 mmol/L [facility] Sodium (BldV) [Moles/Vol] 132 mmol/L Low 136 - 145 mmol/L [facility] Anion gap 4 (BldV) [Moles/Vol] 11.0 mmol/L Normal 10.0-25.0 Comment on above: Performed By: #### 2 4339-4 #### MARTINEZ Al ([id number]) [facility] ([facility]) [address] [place] [address]14 Base excess Calc (BldV) [Moles/Vol] 3.4 mmol/L High -2.0-3.0 Comment on above: Performed By: #### 2 4339-4 #### MARTINEZ Al ([id number]) [facility] ([facility]) [address] [place] [address] 48780 Calcium.ionized (BldV) [Moles/Vol] 0.99 mmol/L Low 1.10-1.33 Comment on above: Performed By: #### 2 4339-4 #### MARTINEZ Al ([id number]) [facility] ([facility]) [address] [place] [address] 31897 Chloride (BldV) [Moles/Vol] 98 mmol/L Normal 98-107 Comment on above: Performed By: #### 2 4339-4 #### MARTINEZ Al ([id number]) [facility] ([facility]) [address] [place] [address] 53696 CO2 (BldV) [Partial pressure] 45 mm Hg Normal 41-51 Comment on above: Performed By: #### 2 4339-4 #### MARTINEZ Al ([id number]) [facility] ([facility]) [address] [place] [address] Glucose [Mass/Vol] 143 mg/dL High 74-99 [facility] Comment on above: Performed By: #### 2 4339-4 #### MARTINEZ Al ([id number]) [facility] ([facility]) [id number] [place] [address] 10372 HCO3 (Bld) [Moles/Vol] 28.5 mmol/L High 22.0-26.0 Comment on above: Performed By: #### 2 4339-4 #### MARTINEZ Al ([id number]) [facility] ([facility]) [id number] [place] [address]3007 Hematocrit Est (Bld) [Volume fraction] 25.0 % Low 41.0-52.0 Comment on above: Performed By: #### 2 4339-4 #### MARTINEZ Al ([id number]) [facility] ([facility]) [address] [place] [address] 23567 Hemoglobin (Bld) [Mass/Vol] 8.2 g/dL Low 13.5-17.5 Comment on above: Performed By: #### 2 4339-4 #### MARTINEZ Al ([id number]) [facility] ([facility]) [address] [place] [address] 36625 Inhaled oxygen concentration 21 % Normal Comment on above: Performed By: #### 2 4339-4 #### MARTINEZ Al ([id number]) [facility] ([facility]) [address] [place] [address] 40312 Lactate (BldV) [Moles/Vol] 0.7 mmol/L Normal 0.4-2.0 Comment on above: Performed By: #### 2 4339-4 #### MARTINEZ Al ([id number]) [facility] ([facility]) [address] [place] [address] 02684 Oxygen (BldV) [Partial pressure] 32 mm Hg Low 35-45 Comment on above: Performed By: #### 2 4339-4 #### MARTINEZ Al ([id number]) [facility] ([facility]) [address] [place] [address] 98968 Oxygen saturation in Venous blood 44 % Low 45-75 Comment on above: Performed By: #### 2 4339-4 #### MARTINEZ Al ([id number]) [facility] ([facility]) [address] [place] [address] 84078 Oxyhemoglobin (BldV) [Mass fraction] 42.6 % Low 45.0-75.0 Comment on above: Performed By: #### 2 4339-4 #### MARTINEZ Al ([id number]) [facility] ([facility]) [address] [place] [address] 84784 pH (BldV) 7.41 [pH] Normal 7.33-7.43 Comment on above: Performed By: #### 2 4339-4 #### MARTINEZ Al ([id number]) [facility] ([facility]) [address] [place] [address] 04464 Potassium (BldV) [Moles/Vol] 5.9 mmol/L High 3.5-5.3 Comment on above: Performed By: #### 2 4339-4 #### MARTINEZ Al ([id number]) [facility] ([facility]) [address] [place] [address] 96242 Sodium (BldV) [Moles/Vol] 132 mmol/L Low 136-145 Comment on above: Performed By: #### 2 4339-4 #### MARTINEZ Al ([id number]) [facility] ([facility]) [address] [place] [address] 61348 HBV surface Ab Qn (S)on 11-21 Interpretation and review of laboratory results Abnormal [facility] HBV surface Ag IA Qlon 12-08 Interpretation and review of laboratory results Normal [facility] Hepatitis B surface antibody on 12-08-2024 HBV surface Ab Qn (S) High NINF [facility] Comment on above: Interpretive Criteri a: <10 mIU/mL Nonreactive >=10 mIU/mL Reactive Biotin interference may cause falsely decreased results. Patients taking a Biotin dose of up to 5 mg/day should refrain from taking Biotin for 24 hours before sample collection. Providers may contact their local laboratory for further information. Hepatitis B surface antigeno n 12-08-2024 HBV surface Ag IA Ql Non-Reactive Nonreactive U [facility] Comment on above: Biotin interference may cause falsely decreased results. Patients taking a Biotin dose of up to 5 mg/day should refrain from taking Biotin for 24 hours before sample collection. Providers may contact their local laboratory for further information. Hepatitis B virus surface Ab on 12-08-2024 HBV surface Ab Qn (S) >1000.0 High <10.0 [facility] Comment on above: Result Comment: Inte rpretive Criteria: <10 mIU/mL Nonreactive >=10 mIU/mL Reactive Biotin interference may cause falsely decreased results. Patients taking a Biotin dose of up to 5 mg/day should refrain from taking Biotin for 24 hours before sample collection. Providers may contact their local laboratory for further information. Performed By: #### 1 6935-9 #### MARTINEZ Al ([id number]) [facility] ([facility]) [address] [place] [address] Hepatitis B virus surface Ag on 12-08-2024 HBV surface Ag IA Ql Non-Reactive Normal Nonreactive [facility] Comment on above: Result Comment: Biot in interference may cause falsely decreased results. Patients taking a Biotin dose of up to 5 mg/day should refrain from taking Biotin for 24 hours before sample collection. Providers may contact their local laboratory for further information. Performed By: #### 5 196-1 #### MARTINEZ Al ([id number]) [facility] ([facility]) [address] [place] [address] Magnesiumon 12-08-2024 Magnesium [Mass/Vol] 2.34 mg/dL 1.60 - 2.40 mg/dL [facility] Magnesium [Mass/Vol] 2.34 mg/dL Normal 1.60-2.40 [facility] Comment on above: Performed By: #### 1 9123-9 #### MARTINEZ Al ([id number]) [facility] ([facility]) [address] [place] [address] Magnesium [Mass/Vol]on 12-08 Interpretation and review of laboratory results Normal [facility] No Panel Informationon 12-08 [facility] Abdomen/Pelvis W IV Cont ONL Yon 12-07-2024 Abdomen/Pelvis W IV Cont ONLY [facility] [address] [place] [address] [id number] Abdomen/Pelvis W IV Cont ONLY MR#: [id number] Acct: [id number] Name: CARLITOS SWEENEY Rep #: [id number] : 1975 M 49 From: Sarthak Carrillo MD PCP: Dr. Monie Alston, DO Status: REG ER Study: Abdomen/Pelvis W IV Cont ONLY Date of Exam: Exam# [id number] Ordering Dr: Blaise Marinelli MD PROCEDURE: ABDOMEN/PELVIS [...] which may represent lymph nodes. Reading Location: [id number] CC: Dr. Monie Alston DO; Dr. Blaise Marinelli MD [employer] Claim Adjuster: Signed Normal [facility] Absolute lymphocyte countOrd ered By: Blaise Marinelli on 12-07-2024 Lymphocytes Auto (Unsp spec) [#/Vol] 1.05 10*3/uL 0.83-4.51 [facility] Absolute neutrophil countOrd ered By: Blaiseamaris Marinelli on 12-07-2024 Neutrophils (Bld) [#/Vol] 3.4 10*3/uL 2.0-7.7 [facility] Anion gap in Serum or Plasma Ordered By: Blaiseamaris Marinelli on 12-07-2024 Anion gap [Moles/Vol] 15 mmol/L 5-15 [facility] Automated lymphocyte count a s percentage of total leukocytesOrdered By: Blaiseamaris Marinelli on 12-07-2024 Lymphocytes/100 WBC Auto (Unsp spec) 20.3 % 19-41 [facility] BUN/creatinine ratioOrdered By: Blaiseamaris Marinelli on 12-07-2024 Urea nitrogen/Creatinine [Mass ratio] 4.0 mg/mg Low 10-20 [facility] Basic Metabolic Profile (BMP )on 12-07-2024 BUN/CRE 4.0 RATIO Low - [facility] Comment on above: Performed By: #### L 100.0100, L500.2500 #### [facility] [address] [place], [address] Calcium [Mass/Vol] 8.3 mg/dL Normal 7.6-11.0 [facility] Comment on above: Performed By: #### L 100.0100, L500.2500 #### [facility] [address] [place], [address] Chloride [Moles/Vol] 92 mmol/L Low 98-108 [facility] Comment on above: Performed By: #### L 100.0100, L500.2500 #### [facility] [address] [place], [address] CO2 [Moles/Vol] 28.7 mmol/L Normal 21.0-32.0 [facility] Comment on above: Performed By: #### L 100.0100, L500.2500 #### [facility] [address] [place], [address] Creatinine [Mass/Vol] 12.60 mg/dL Invalid Interpretation Code 0.70-1.20 [facility] Comment on above: Result Comment: Crit ical Result(s) Called at 2248: by: NBURNS TO MMARTIAN??Results read back by same. Performed By: #### L 100.0100, L500.2500 #### [facility] [address] [place], [address] ECRCL 7.39 ml/min Invalid Interpretation Code 50-250 [facility] Comment on above: Performed By: #### L 100.0100, L500.2500 #### [facility] [address] [place], [address] GAP 15 Normal 5-15 [facility] Comment on above: Performed By: #### L 100.0100, L500.2500 #### [facility] [address] [place], [address] GFR/1.73 sq M.predicted among non-blacks MDRD (S/P/Bld) [Vol rate/Area] 4 mL/min/{1.73_m2} Low >60 [facility] Comment on above: Result Comment: mL/m in/1.73m2 CKD-EPI Creatinine Equation (2020) Performed By: #### L 100.0100, L500.2500 #### [facility] [address] [place], [address] Glucose [Mass/Vol] 115 mg/dL High 70-99 [facility] Comment on above: Performed By: #### L 100.0100, L500.2500 #### [facility] [address] [place], [address] Potassium [Moles/Vol] 5.0 mmol/L Normal 3.3-5.1 [facility] Comment on above: Performed By: #### L 100.0100, L500.2500 #### [facility] [address] [place], [address] Sodium [Moles/Vol] 136 mmol/L Normal 133-145 [facility] Comment on above: Performed By: #### L 100.0100, L500.2500 #### [facility] [address] [place], [address] Urea nitrogen [Mass/Vol] 51 mg/dL High 4-19 [facility] Comment on above: Performed By: #### L 100.0100, L500.2500 #### [facility] [address] [place], [address] Basophil percentageOrdered B y: Blaise Marinelli on 12-07-2024 Basophils/100 WBC (Bld) 1.0 % 0-1 [facility] CBC W/Diff, Automatedon 11-21 Absolute Lymph 1.05 X10 3/uL Normal 0.83-4.51 [facility] Comment on above: Performed By: #### L 100.0100, L500.2500 #### [facility] [address] [place], [address] Absolute Neut 3.4 X10 3/uL Normal 2.0-7.7 [facility] Comment on above: Performed By: #### L 100.0100, L500.2500 #### [facility] [address] [place], [address] Basophils/100 WBC (Bld) 1.0 % Normal 0-1 [facility] Comment on above: Performed By: #### L 100.0100, L500.2500 #### [facility] [address] [place], [address] Eosinophils/100 WBC (Bld) 2.9 % Normal 0-5 [facility] Comment on above: Performed By: #### L 100.0100, L500.2500 #### [facility] [address] [place], [address] Erythrocyte distribution width (RBC) [Ratio] 13.3 % Normal 11.6-14.6 [facility] Comment on above: Performed By: #### L 100.0100, L500.2500 #### [facility] [address] [place], [address] Hematocrit (Bld) [Volume fraction] 22.4 % Low 40-54 [facility] Comment on above: Performed By: #### L 100.0100, L500.2500 #### [facility] [address] [place], [address] Hemoglobin (Bld) [Mass/Vol] 7.4 g/dL Low 13.0-16.5 [facility] Comment on above: Performed By: #### L 100.0100, L500.2500 #### [facility] [address] [place], [address] IG% 0.400 Normal 0.0-0.9 [facility] Comment on above: Result Comment: IG% - Immature Granulocytes (promyelocytes, myelocytes and metamyelocytes) > 1% indicates that a LEFT SHIFT is Present. Performed By: #### L 100.0100, L500.2500 #### [facility] [address] [place], [address] Lymphocytes/100 WBC (Bld) 20.3 % Normal 19-41 [facility] Comment on above: Performed By: #### L 100.0100, L500.2500 #### [facility] [address] [place], [address] MCH (RBC) [Entitic mass] 27.9 pg Normal 27.0-32.0 [facility] Comment on above: Performed By: #### L 100.0100, L500.2500 #### [facility] [address] [place], [address] MCHC (RBC) [Mass/Vol] 33.0 g/dL Normal 32-36 [facility] Comment on above: Performed By: #### L 100.0100, L500.2500 #### [facility] [address] [place], [address] MCV (RBC) [Entitic vol] 84.5 fL Normal 80-94 [facility] Comment on above: Performed By: #### L 100.0100, L500.2500 #### [facility] [address] [place], [address] Monocytes/100 WBC (Bld) 9.8 % Normal 0-10 [facility] Comment on above: Performed By: #### L 100.0100, L500.2500 #### [facility] [address] [place], [address] Neutrophils/100 WBC (Bld) 65.6 % Normal 47-70 [facility] Comment on above: Performed By: #### L 100.0100, L500.2500 #### [facility] [address] [place], [address] Nucleated RBC (Bld) [#/Vol] 0 10*3/uL Normal 0-5 [facility] Comment on above: Performed By: #### L 100.0100, L500.2500 #### [facility] [address] [place], [address] Platelet mean volume (Bld) [Entitic vol] 10.3 fL Normal 6.2-12.0 [facility] Comment on above: Performed By: #### L 100.0100, L500.2500 #### [facility] [address] [place], [address] Platelets (Bld) [#/Vol] 171 10*3/uL Normal 150-450 [facility] Comment on above: Performed By: #### L 100.0100, L500.2500 #### [facility] [address] [place], [address] RBC (Bld) [#/Vol] 2.65 10*6/uL Low 4.6-6.2 [facility] Comment on above: Performed By: #### L 100.0100, L500.2500 #### [facility] [address] [place], [address] RDW SD 40.7 fl Normal 35.1-43.9 [facility] Comment on above: Performed By: #### L 100.0100, L500.2500 #### [facility] [address] [place], [address] WBC (Bld) [#/Vol] 5.2 10*3/uL Normal 4.4-11.0 [facility] Comment on above: Performed By: #### L 100.0100, L500.2500 #### [facility] [address] [place], [address] Carbon dioxide, total [Moles /volume] in Central venous bloodOrdered By: Blaise Marinelli on 12-07-2024 CO2 [Moles/Vol] 28.7 mmol/L 21.0-32.0 [facility] Chloride assayOrdered By: López Marinelli on 12-07-2024 Chloride [Moles/Vol] 92 mmol/L Low 98-108 [facility] Emergency Department Summary on 12-07-2024 Emergency Department Summary [facility] Records Department [address] [place] [address] Emergency Department Summary 12/07/24 MR#: [id number] Acct: [id number] Name: CARLITOS SWEENEY Rep #: [id number] : 1975 49 From: Blaise Marinelli MD [...] palpitations Respirat (more content not included)... Normal [facility] Eosinophil percentageOrdered By: Blaise Marinelli on 12-07-2024 Eosinophils/100 WBC (Bld) 2.9 % 0-5 [facility] Erythrocyte distribution wid th ratioOrdered By: Blaise Marinelli on 12-07-2024 Erythrocyte distribution width (RBC) [Ratio] 13.3 % 11.6-14.6 [facility] Erythrocyte distribution wid th standard deviationOrdered By: Blaiseamaris Marinelli on 12-07-2024 Erythrocyte distribution width (RBC) [Ratio] 40.7 fl 35.1-43.9 [facility] Glomerular filtration rate ( GFR) estimation/1.73 sq m using serum, plasma, or whole bOrdered By: Blaise Marinelli on 12-07-2024 GFR/1.73 sq M.predicted among non-blacks MDRD (S/P/Bld) [Vol rate/Area] 4 mL/min/{1.73_m2} Low >60 [facility] Comment on above: mL/min/1.73m2 CKD-EP I Creatinine Equation (2020) Hematocrit Auto (Bld) [Volum e fraction]Ordered By: Blaise Marinelli on 12-07-2024 Hematocrit (Bld) [Volume fraction] 22.4 % Low 40-54 [facility] Hemoglobin measurementOrdere d By: Blaise Marinelli on 12-07-2024 Hemoglobin (Bld) [Mass/Vol] 7.4 g/dL Low 13.0-16.5 [facility] Immature granulocytes/100 WB C Auto (Bld)Ordered By: Blaise Marinelli on 12-07-2024 Immature granulocytes/100 WBC (Bld) 0.400 % 0.0-0.9 [facility] Comment on above: IG% - Immature Granu locytes (promyelocytes, myelocytes and metamyelocytes) > 1% indicates that a LEFT SHIFT is Present. MCV (mean corpuscular volume ) determinationOrdered By: Blaise Marinelli on 12-07-2024 MCV (RBC) [Entitic vol] 84.5 fL 80-94 [facility] Mean corpuscular hemoglobin (MCH) determinationOrdered By: Blaiseamaris Marinelli on 12-07-2024 MCH (RBC) [Entitic mass] 27.9 pg 27.0-32.0 [facility] Mean corpuscular hemoglobin concentration (MCHC) determinationOrdered By: Blaiseamaris Marinelli on 12-07-2024 MCHC (RBC) [Mass/Vol] 33.0 g/dL 32-36 [facility] Mean platelet volume determi nationOrdered By: Blaise Marinelli on 12-07-2024 Platelet mean volume (Bld) [Entitic vol] 10.3 fL 6.2-12.0 [facility] Monocyte percentageOrdered B y: Blaise Marinelli on 12-07-2024 Monocytes/100 WBC (Bld) 9.8 % 0-10 [facility] Neutrophil percentageOrdered By: Blaiseamaris Marinelli on 12-07-2024 Neutrophils/100 WBC (Bld) 65.6 % 47-70 [facility] Nucleated red blood cell per centageOrdered By: Blaise Marinelli on 12-07-2024 Nucleated RBC/100 WBC (Bld) [Ratio] 0 % 0-5 [facility] Platelet countOrdered By: amaris Marinelli on 12-07-2024 Platelets (Bld) [#/Vol] 171 10*3/uL 150-450 [facility] Potassium measurement (mass/ volume)Ordered By: Blaiseamaris Marinelli on 12-07-2024 Potassium (Unsp spec) [Mass/Vol] 5.0 mmol/L 3.3-5.1 [facility] RBC Auto (Bld) [#/Vol]Ordere d By: Blaise Marinelli on 12-07-2024 RBC (Bld) [#/Vol] 2.65 10*6/uL Low 4.6-6.2 [facility] Serum creatinine measurement (mass/volume)Ordered By: Blaise Marinelli on 12-07-2024 Creatinine [Mass/Vol] 12.60 mg/dL Critically high 0.70-1.2 0 [facility] Comment on above: Critical Result(s) C alled at 2248: by: [facility] Results read back by same. Serum glucose measurement (m ass/volume)Ordered By: Blaiseamaris Marinelli on 12-07-2024 Glucose [Mass/Vol] 115 mg/dL High 70-99 [facility] Serum or plasma calcium kassandra urement (mass/volume)Ordered By: Blaiseamaris Marinelli on 12-07-2024 Calcium [Mass/Vol] 8.3 mg/dL 7.6-11.0 [facility] Serum or plasma urea nitroge n measurement (mass/volume)Ordered By: Blaise Marinelli on 12-07-2024 Urea nitrogen [Mass/Vol] 51 mg/dL High 4-19 [facility] Sodium levelOrdered By: Blaise Marinelli on 12-07-2024 Sodium [Moles/Vol] 136 mmol/L 133-145 [facility] White blood cell (WBC) count Ordered By: Blaiseamaris Marinelli on 12-07-2024 WBC (Bld) [#/Vol] 5.2 10*3/uL 4.4-11.0 [facility] XR ANKLE AND FOOT 6 VIEWS [facility] 12-06-2024 XR ANKLE AND FOOT 6 VIEWS [...] resident's findings and interpretation. Interpreted by: Lyle Braswell Preliminary Report By: Ranjith Donovan Electronically signed By Edward Missinne Dictated Date: 12/06/2024 9:46:46 PM Prelim Date: 12/06/2024 9:52:03 PM Sign Date: 12/06/2024 10:00:33 PM Ordering Provider: ODILIA DAVILA [facility] CNOVjessica 11-24-2024 CNOV Office Visit ([facility] ) -- CARLITOS SWEENEY ([id number]) 1975 M NFR Date Time Provider Department 11/24/24 12:00 PM COLUMBA KEITH [facility] During your visit today, we recorded the following information about you: Pulse Respiration Blood pressure Weight 97/minute 20/minute 142/82 76.3 kg Columba Keith APRN.[employer] 11/24/2024 12:57 PM Signed ARJUN [facility] [...] ([facility]) 08/18/2015 Seeing cardio in [place] (has pace maker/defibulator) - Chronic kidney disease, stage 5 ([facility]) Dialysis M,W,F @ [facility] - Chronic obstructive pulmonary disease ([facility]) 08/18/2015 - Chronic obstructive pulmonary disease ([facility]) 08/18/[address] Barber ([place]) - Congenital solitary kidney pt was born [...] major depressive disorder ([facility]) 10/23/2016 - MRSA colonization, nasal 02/28/2014 - [...] CHOLECYSTECTOMY - INSJ TUNNELED CVC W/O SUBQ PORT/LIQUIFIED NATURAL GAS TECHNICIAN AGE 3 YR/> 01/21/2014 - PAST SURGICAL [...] 40 mg (more content not included)... Normal [facility] CNOVon 10-18-2024 CNOV Office Visit (WSTR ) -- CARLITOS SWEENEY ([id number]) 1975 M NFR Date Time Provider Department 10/18/24 10:30 AM CHAYA BRIDGES [facility] During your visit today, we recorded the following information about you: Temperature Pulse Respiration Blood pressure 96.9 degrees 86/minute 16/minute 172/80 Weight 78.7 kg Chaya Bridges MD 10/18/2024 11:22 AM Signed [facility] Subjective Carlitos Sweeney [...] to monitor and follow up with his nurse wound with concerns. Chaya Bridges MD Differential Diagnoses [...] by mouth twice daily with meals. Per [facility] - sevelamer carbonate (RENVELA) 800 [...] Anxiety [ (more content not included)... Normal [facility] Echocardiogram study reportO rdered By: Tevin Khan on 10-11-2024 Study report [facility] [address] [place] [address] Echo Complete 10/07/24 1354 MR#: [id number] Acct: [id number] Name: CARLITOS SWEENEY Rep #:[id number] : 1975 49 From: Tevin Khan MD Attending Dr: Dr. Tevin Khan MD Status: REG CLI Ordering Dr: Tevin Khan MD Date: Location: [facility] Sex: M C Admitted: Reason For [...] Tevin Khan MD; Dr. Monie Alston DO ~ Date Dictated: 10/07/24 1354 Date Transcribed: 10/11/24 0835 Property Loss Insurance Claim Adjuster: Signed [facility] Work Phone: Echo Completeon 10-07-2024 Echo Complete [facility] [address] [place] [address] Echo Complete 10/07/24 1354 MR#: [id number] Acct: [id number] Name: CARLITOS SWEENEY Rep #: [id number] : 1975 49 From: Tevin Khan MD Attending Dr: Dr. Tevin Khan MD Status: REG CLI Ordering Dr: Tevin Khan MD Date: 10/07/24 Location: [facility] Sex: M C Admitted: Reason For Study [...] CC: Dr. Tevin Khan MD; Dr. Monie Alston, DO Date Dictated: 10/07/24 1354 Date Transcribed: 10/11/24 0835 Property Loss Insurance Claim Adjuster: Signed Normal [facility] CT THORAX SCREENING W/O CONT Jamie 09-15-2024 CT THORAX SCREENING W/O CONTRAST ORIGINAL [...] Recall Type: LDCT LungRads: 2s Interpreted by: Verito Chávez Preliminary Report By: Verito Chávez Electronically signed By Verito Chávez Dictated Date: 09/15/2024 9:52:08 AM Prelim Date: 09/15/2024 10:06:05 AM Sign Date: 09/15/2024 10:06:05 AM Ordering Provider: MONIE Street [facility] Cardiology Visit Reporton Cardiology Visit Report [facility] [address] [place], [place] [address] OFFICE VISIT Date of Service: 09/07/24 MR#: [id number] Acct: [id number] Name: CARLITOS SWEENEY Rep #: [id number] : 1975 Provider: Dr. Tevin Khan MD Age/Sex: 48/M Location[facility] Status: Signed HPI HPI History of Present [...] NIBP Intake Visit Reasons: 6 M FU Medical Records Manager Required: No Accompanied by: Is patient in [...] Appearance: w (more content not included)... Normal [facility] 09-01-2024 [facility] Telephone (JALYN) -- CARLITOS SWEENEY ([id number]) 1975 M NFR Date Time Provider Department [...] by mouth twice daily with meals. Per [facility] - sevelamer carbonate (RENVELA) 800 [...] valve stenosis [I35.0] 11/21/2022 Arteriovenous fistula, acquired ([facility]) [I77.0] 11/21/2022 Postoperative pain [G89.18] 08/07/2023 Peripheral arterial disease (HCC) [I73.9] 11/12/2023 Encounter Status:Closed by YESSY BRIDGES on 09/01/24 Normal [facility] XR SPINE LUMBAR FLEX/EXT W/O BLIQUESon 08-24-2024 [...] 08/24/2024 4:23:52 PM Ordering Provider: MONIE ALSTON [facility] 08-04-2024 [place] Telephone (JALYN) -- CARLITOS SWEENEY ([id number]) 1975 M NFR Date Time Provider Department [...] by mouth twice daily with meals. Per [facility] - sevelamer carbonate (RENVELA) 800 [...] valve stenosis [I35.0] 11/21/2022 Arteriovenous fistula, acquired ([facility]) [I77.0] 11/21/2022 Postoperative pain [G89.18] 08/07/2023 Peripheral arterial disease (HCC) [I73.9] 11/12/2023 Encounter Status:Closed by YESSY BRIDGES on 08/04/24 [facility] CNOVon 05-30-2024 CNOV Office Visit (UCWSTR ) -- CARLITOS SWEENEY ([id number]) 1975 M NFR Date Time Provider Department 05/30/24 12:00 PM SOILA MARIA [facility] During your visit today, we recorded the [...] history is provided by the patient. No manager technical support was used. URI He complains of cough, [...] ([facility]) 08/18/2015 Seeing cardio in [place] (has pace maker/defibulator) Chronic kidney disease, stage 5 ([facility]) Dialysis M,W,F @ [facility] Chronic obstructive pulmonary disease ([facility]) 08/18/2015 Chronic obstructive pulmonary disease ([facility]) 08/18/[address] Barber ([place]) Congenital solitary kidney pt was born with [...] substance agreement and Tox screening done [facility] on 01/10/2021. If cancels or No Shows the Belsomra will be stopped. 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 PAST SURGICAL HISTORY Procedure Laterality Date 2D ECHO (EXEP) 11/02/2020 EF=50%, mod Joshi dysf CHOLECYSTECTOMY INSJ TUNNELED CVC W/O SUBQ PORT/LIQUIFIED NATURAL GAS TECHNICIAN AGE 3 YR/> 01/21/2014 PAST SURGICAL HISTORY OF 05/1997 Renal Transplant, cadaveric PAST SURGICAL HISTORY OF 09/2011 renal transplant PAST SURGICAL HISTORY OF Right cautery right nare for chronic nosebleeds PAST SURGICAL HISTORY OF 01/31/2017 LEFT UPPER ARM AVG (more content not included)... Normal [facility] CNOVon 04-13-2024 CNOV Office Visit (UCWSTR ) -- CARLITOS SWEENEY ([id number]) 1975 M NFR Date Time Provider Department 04/13/24 2:30 PM SOILA MARIAWSTR During your visit today, we recorded the following information about you: Temperature Pulse Respiration Blood pressure 97.7 degrees 83/minute 18/minute 159/77 Weight 76 kg Soila Maria, TYPE CUTTERCRUZ 04/13/2024 3:07 PM Signed This note was created using dELiAsriter. Subjective Carlitos Sweeney is a 48 year [...] history is provided by the patient. No manager technical support was used. Cough This is a new [...] renal failure (HCC) ([facility]) 07/01/2022 Anxiety 10/01/2013 Arteriovenous fistula, acquired ([facility]) 11/21/2022 BENIGN HYP RENAL W KID FAIL 02/11/2005 Cardiomyopathy ([facility]) 07/01/2022 Echo 12/2014 EF 20%. Chronic combined systolic and diastolic CHF (congestive heart failure) ([facility]) 08/18/2015 Seeing cardio in [place] (has pace maker/defibulator) Chronic kidney disease, stage 5 ([facility]) Dialysis M,W,F @ [facility] Chronic obstructive pulmonary disease ([facility]) 08/18/2015 Chronic obstructive pulmonary disease ([facility]) 08/18/[address] Barber ([place]) Congenital solitary kidney pt was born with solitary atrophic kidney Elevated hemoglobin A1c 10/13/2020 End stage renal failure on dialysis ([facility]) 02/12/2017 Essential hypertension 09/10/2013 Gastroesophageal reflux disease without esophagitis 10/23/2016 H/O: endocrine disorder 07/01/2022 Comment on above: HYPERPARATHYROIDISM - DR HERNANDEZ NOTES Hemodialysis patient (HCC) 03/28/2016 History of cardiac pacemaker in situ [...] substance agreement and Tox screening done at [facility] on 01/10/2021. If cancels or No Shows the Belsomra will be stopped. 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 PAST SURGICAL HISTORY Procedure Laterality Date 2D ECHO (EXEP) 11/02/2020 EF=50%, mod Joshi dysf CHOLECYSTECTOMY INSJ TUNNELED CVC W/O SUBQ PORT/LIQUIFIED NATURAL GAS TECHNICIAN AGE 3 YR/> 01/21/2014 PAST SURGICAL HISTORY [...] by m (more content not included)... Normal [facility] CNOVon 04-01-2024 CNOV Office Visit (UCWSTR ) -- CARLITOS SWEENEY ([id number]) 1975 M NFR Date Time Provider Department 04/01/24 2:30 PM CHRISTAL LIMA WS During your visit today, we recorded the following information about you: Temperature Pulse Respiration Blood pressure 98 degrees 93/minute 18/minute 140/80 Weight 76 kg Christal Lima PA 04/01/2024 3:26 PM Signed This note was created using Bex. Subjective Carlitos Sweeney is a 48 year [...] history is provided by the patient. No manager technical support was used. Back Pain This is a [...] ([facility]) 08/18/2015 Seeing cardio in [place] (has pace maker/defibulator) Chronic kidney disease, stage 5 ([facility]) Dialysis M,W,F @ [facility] Chronic obstructive pulmonary disease ([facility]) 08/18/2015 Chronic obstructive pulmonary disease ([facility]) 08/18/[address] Barber ([place]) Congenital solitary kidney pt was born with [...] substance agreement and Tox screening done at [facility] on 01/10/2021. If cancels or No Shows the Belsomra will be stopped. Recurrent right pleural effusion 02/12/2022 Smoker (more content not included)... Normal [facility] XR LUMBAR 3V AP/LAT/L5-S1on 04-01-2024 XR LUMBAR [...] prior CT. IMPRESSION: NO EVIDENCE OF FRACTURE Property Loss Insurance Claim Adjuster: PSCB Transcribe Date/Time: Apr 01 2024 2:59P Dictated by : HENRIQUE LEES MD This examination was interpreted and the report reviewed and electronically signed by: HENRIQUE LEES MD on Apr 01 2024 3:03PM EST [id number] Normal [facility] XR Lumbar spine 3 Viewson IMPRESSION: NO EVIDE NCE OF FRACTURE Property Loss Insurance Claim Adjuster: [facility] Transcribe Date/Time: Apr 01 2024 2:59P Dictated [...] the prior CT. DIVISION OF RADIOLOGY [facility] * * *Final Report* [...] CT. IMPRESSION IMPRESSION: NO EVIDENCE OF FRACTURE Property Loss Insurance Claim Adjuster: HENRY Transcribe Date/Time: Apr 01 2024 2:59P Dictated by : HENRIQUE LEES MD This examination was interpreted and the report reviewed and electronically signed by: HENRIQUE LEES MD on Apr 01 2024 3:03PM EST [facility] Radiology Study observation (narrative) [facility] XR Lumbar spine 3 ViewsOrder ed By: Ccf Provider on 04-01-2024 [facility] ICD CLINIC CHECKon AV Delay Adaptive Paced Minimum (ms) 180 ms [facility] AV Delay Paced (ms) 140 ms [facility] Battery Voltage 2.89 V [facility] Omer RA Pacing Amplitude (volts) 1.5 V [facility] Omer RA Pacing Polarity BI [facility] Omer RA Pacing Pulse Width (ms) 0.4 ms [facility] Omer RA Sensing Amplitude (mvolts) 0.4 mV [facility] Omer RA Sensing Polarity BI [facility] Omer RV Pacing Amplitude (volts) 1.7 V [facility] Omer RV Pacing Polarity BI [facility] Omer RV Pacing Pulse Width (ms) 0.4 ms [facility] Omer RV Sensing Amplitude (mvolts) 0.8 mV [facility] Omer RV Sensing Polarity BI [facility] Detection Configuration (Vent) 1 - Zone [facility] FastVT_Detection Interval 360 ms [facility] ICD FastVT DetectionStatus Monitor [facility] ICD-AMS EPISODES 160 {beats}/min [facility] ICD-ATP Episodes (Vent) 0 [facility] ICD-Device [facility] ICD-Fast Ventricular Tachycardia 0 [facility] ICD-LEADIMPEDANCEATRI AL 692 ohm [facility] ICD-Percent Pacing (Atrial) 2 % [facility] ICD-Percent Pacing (Vent) 0 % [facility] ROI-NVBCPA-TIFHDDFLP 0 [facility] ICD-SHOCKSDELIVEREDVE NTRICULAR 0 [facility] Lead Impedance (RV) 736 ohm [facility] Lead Impedance High Voltage 79 ohm [facility] Lead1 [facility] Lead2 [facility] Location RV [facility] Location RA [facility] Lower Rate (bpm) 60 {beats}/min [facility] Max Sensor Rate (bpm) 120 {beats}/min [facility] MDT_PROG_TACHY_ZONE_D ETECTIONS_STATUS ENABLED [facility] Model 053919 Itrevia 7 DR-T [facility] Model 359 065 Linox Smart SD 60/16 [facility] Model Setrox S60 [facility] Pacing Mode DDD [facility] Serial Number [id number] [facility] Serial Number [id number] [facility] Serial Number [id number] [facility] Test Charge Energy 40 J [facility] Test Charge Time 9.3 s [facility] Therapy Status (Vent) Enabled [facility] Thresh RA Capture Amplitude (volts) 0.5 V [facility] Thresh RA Capture Duration (ms) 0.4 ms [facility] Thresh RV Capture Amplitude (VOLTS) 0.7 V [facility] Thresh RV Capture Duration (MS) 0.4 ms [facility] Tracking Rate (bpm) 140 {beats}/min [facility] VF Zone Detection Interval 300 ms [facility] VF Zone Therapy Configuration 1 ATP(s) + 8 Shock(s) [facility] No Panel Informationon 08-08 BLANK _ [facility] Implant Date 02/03/2015 [facility] ICD CLINIC CHECKon AV Delay Adaptive Paced Minimum (ms) 180 ms [facility] AV Delay Adaptive Rate Maximum (bpm) 130 {beats}/min [facility] AV Delay Adaptive Rate Minimum (bpm) 60 {beats}/min [facility] AV Delay Adaptive Sensed Minimum (ms) 180 ms [facility] AV Delay Adaptive Status ENABLED [facility] AV Delay Paced (ms) 140 ms [facility] AV Delay Sensed (ms) 140 ms [facility] Omer LV Pacing Polarity Unknown [facility] Omer LV Sensing Polarity Unknown [facility] Omer RA Pacing Amplitude (volts) 1.5 V [facility] Omer RA Pacing Polarity BI [facility] Omer RA Pacing Pulse Width (ms) 0.4 ms [facility] Omer RA Sensing Amplitude (mvolts) 0.4 mV [facility] Omer RA Sensing Polarity BI [facility] Omer RV Pacing Amplitude (volts) 1.8 V [facility] Omer RV Pacing Polarity BI [facility] Omer RV Pacing Pulse Width (ms) 0.4 ms [facility] Omer RV Sensing Amplitude (mvolts) 0.8 mV [facility] Omer RV Sensing Polarity BI [facility] Detection Configuration (Vent) 1 - Zone [facility] ICD FastVT DetectionStatus DISABLED [facility] ICD-AMS EPISODES 160 {beats}/min [facility] ICD-Device Mfg BIO [facility] ICD-FALLBACKRATE_BPM DDIR [facility] ICD-Hysteresis Rate 60 {beats}/min C [facility] ICD-PVC Intervention 375 [facility] ICD-Rate Modulation Acceleration Reaction 2 s [facility] ICD-Rate Modulation Deceleration 0.5 m [facility] ICD-Rate Modulation [place] Medium [facility] ICD-Rate Modulation Threshold Mean [facility] ICD-Rhythm Sinus Rhythm [facility] Lead1 Mfg BIO [facility] Lead2 Mfg BIO [facility] Location RV [facility] Location RA [facility] Lower Rate (bpm) 60 {beats}/min [facility] Max Sensor Rate (bpm) 120 {beats}/min [facility] MDT_PROG_TACHY_ZONE_D ETECTIONS_STATUS DISABLED [facility] Model [id number] Itrevia 7 DR-T [facility] Model 359 065 Linox Smart SD 60/16 [facility] Model Setrox S60 [facility] Pacemaker Dependent? NO [facility] Pacing Mode DDD [facility] Serial Number [id number] [facility] Serial Number [id number] [facility] Serial Number [id number] [facility] Therapy Status (Vent) Enabled [facility] Tracking Rate (bpm) 140 {beats}/min [facility] VF Zone Detection Interval 300 ms [facility] VF Zone Therapy Configuration 0 ATP(s) + 8 Shock(s) [facility] No Panel Informationon 08-07 BLANK _ [facility] Implant Date 02/03/2015 [facility] CNPKaryn 06-30-2023 CNPN Telephone (CDLBME) -- CARLITOS SWEENEY ([id number]) 1975 M NFR Date Time Provider Department 1/8/24 DEBBIE ROBERTSON CDLBME During your visit today, we recorded the following information about you: Debbie Robertson, RN 06/30/2023 1:14 PM Signed Left message [...] Fully Assessed Reason for Visit: Reminder Call [0069] Prescriptions as of 06/30/2023 - predniSONE (DELTASONE) [...] Status:Closed by DEBBIE ROBERTSON on 06/30/23 Normal [facility] A/V FISTULA GRAFT UNL VAS LABon 06-04-2023 [facility] FT4on 05-13-2023 Free T4 [Mass/Vol] 0.82 ng/dL Normal 0.76-1.46 [facility] ([place]) Comment on above: Performed By: #### P SA, TSH, FT4, VIDH ####[address] [address] PSAon 05-13-2023 Prostate Specific Antigen 0.50 ng/mL Normal 0.00-4.00 [facility] ([place]) Comment on above: Performed By: #### P SA, TSH, FT4, VIDH ####Y[address] [address] TSHon 05-13-2023 TSH Qn 2.18 m[IU]/L Normal 0.36-3.74 [facility] ([place]) Comment on above: Performed By: #### P SA, TSH, FT4, VIDH ####Y[address] [address] VIDHon 05-13-2023 Vit. D 25-Hydroxy 44.1 ng/mL Normal [facility] ([place]) Comment on above: Result Comment: Inte rpretive Values Based on Total 25(OH) Vitamin D: Deficient <20 ng/mL Insufficient 20 - <30 ng/mL Sufficient 30-100 ng/mL Performed By: #### P SA, TSH, FT4, VIDH ####Yana [place] [address] XR HAND MINIMUM 3 VIEWS RIGH Ton 11-21-2023 XR HAND MINIMUM 3 VIEWS RIGHT ORIGINAL [...] 05/13/2023 3:20:58 PM Ordering Provider: MONIE ALSTON [facility] ([place]) IR ARTERIOGRAM-AV SHUNT FIST ULOGRAMon 05-06-2023 IR ARTERIOGRAM-AV SHUNT FISTULOGRAM ORIGINAL HISTORY: ORDERING SYSTEM PROVIDED HISTORY: Reason for Exam: CENTRAL STENOSIS, right upper extremity swelling, hemodialysis PROCEDURE: 147164 - Ultrasound guidance for vascular access 2. 97453 - Diagnostic angiography of dialysis circuit (fistulogram) with fluoroscopy (no intervention) 307 - +Angioplasty, central dialysis segment BRICK GRADER: Dr. Blunt SYSTEMS TESTING LABORATORY TECHNICIAN: None FLUORO: 60 min AIR KERMA DOSE: 5.2 mGy ANESTHESIA: Moderate conscious sedation administered. Patient was monitored throughout the procedure by nurse. INTRASERVICE TIME (min): 117 CONTRAST: Documented in Surginet. DIALYSIS ACCESS: Right upper arm AV fistula, brachiobasilic MATERIALS: 7 Fr Prelude 6 [place] guide catheter ferraro Micropuncture Stiff Glidewire Amplatz Inflator [place] balloons: 14 mm DEFINITIONS: Dialysis circuit: Segments [...] CIV, IVC, and central collaterals). Src: [email or web address])[email or web address] [email or web address]/pdf STENOSIS: Normal: 0% stenosis Minimal: <25% [...] 05/06/2023 5:31:16 PM Ordering Provider: GLORIA Street [facility] ([place]) .Auto Diffon 04-22-2023 Basophil, Absolute 0.0 10 3/mcL Normal 0.0-0.3 [facility] ([place]) Comment on above: Performed By: #### C BC, BMP, GFR, PRO, ADIFF, ANEU ####[address] [address] Basophils/100 WBC (Bld) 0.3 % Normal 0.0-2.5 [facility] ([place]) Comment on above: Performed By: #### C BC, BMP, GFR, PRO, ADIFF, ANEU ####[address] [address] Eosinophil, Absolute 0.0 10 3/mcL Normal 0.0-0.7 [facility] ([place]) Comment on above: Performed By: #### C BC, BMP, GFR, PRO, ADIFF, ANEU ####[address] [address] Eosinophils/100 WBC (Bld) 0.0 % Normal 0.0-6.0 [facility] ([place]) Comment on above: Performed By: #### C BC, BMP, GFR, PRO, ADIFF, ANEU ####[address] [address] Lymphocyte, Absolute 0.3 10 3/mcL Low 0.9-4.3 [facility] ([place]) Comment on above: Performed By: #### C BC, BMP, GFR, PRO, ADIFF, ANEU ####[address] [address] Lymphocytes/100 WBC (Bld) 5.2 % Low 20.0-40.0 [facility] ([place]) Comment on above: Performed By: #### C BC, BMP, GFR, PRO, ADIFF, ANEU ####[address] [address] Monocyte, Absolute 0.1 10 3/mcL Normal 0.1-1.4 [facility] ([place]) Comment on above: Performed By: #### C BC, BMP, GFR, PRO, ADIFF, ANEU ####[address] [address] Monocytes/100 WBC (Bld) 0.9 % Low 2.0-13.0 [facility] ([place]) Comment on above: Performed By: #### C BC, BMP, GFR, PRO, ADIFF, ANEU ####[address] [address] Neutrophils/100 WBC (Bld) 93.6 % High 50.0-75.0 [facility] ([place]) Comment on above: Performed By: #### C BC, BMP, GFR, PRO, ADIFF, ANEU ####[address] [address] .GFRon 04-22-2023 GFR 7 ml/min/1.73sqm Normal [facility] ([place]) Comment on above: Result Comment: GFR Population [...] C BC, BMP, GFR, PRO, ADIFF, ANEU ####[address] [address] GFR Non- 6 ml/min/1.73sqm Normal [facility] ([place]) Comment on above: Result Comment: GFR Population [...] C BC, BMP, GFR, PRO, ADIFF, ANEU ####[address] [address] .NEUABSon 04-22-2023 Neutrophil, Absolute 5.2 10 3/mcL Normal 2.3-8.1 [facility] ([place]) Comment on above: Performed By: #### C BC, BMP, GFR, PRO, ADIFF, ANEU ####[address] [address] BMPon 04-22-2023 BUN/Creatinine Ratio 4.4 ratio Low 10.0-22.0 [facility] ([place]) Comment on above: Performed By: #### C BC, BMP, GFR, PRO, ADIFF, ANEU ####[address] [address] Calcium [Mass/Vol] 9.2 mg/dL Normal 8.7-10.4 [facility] ([place]) Comment on above: Performed By: #### C BC, BMP, GFR, PRO, ADIFF, ANEU ####[address] [address] Chloride [Moles/Vol] 98 mmol/L Normal 98-110 [facility] ([place]) Comment on above: Performed By: #### C BC, BMP, GFR, PRO, ADIFF, ANEU ####[address] [address] CO2 [Moles/Vol] 33 mmol/L High 22-32 [facility] ([place]) Comment on above: Performed By: #### C BC, BMP, GFR, PRO, ADIFF, ANEU ####[address] [address] Creatinine [Mass/Vol] 9.81 mg/dL High 0.60-1.40 [facility] ([place]) Comment on above: Performed By: #### C BC, BMP, GFR, PRO, ADIFF, ANEU ####[address] [address] Electrolyte Balance 4.0 mEq/L Normal 4.0-15.0 [facility] ([place]) Comment on above: Performed By: #### C BC, BMP, GFR, PRO, ADIFF, ANEU ####[address] [address] Glucose [Mass/Vol] 134 mg/dL High 70-110 [facility] ([place]) Comment on above: Performed By: #### C BC, BMP, GFR, PRO, ADIFF, ANEU ####[address] [address] Potassium [Moles/Vol] 4.4 mmol/L Normal 3.5-5.0 [facility] ([place]) Comment on above: Performed By: #### C BC, BMP, GFR, PRO, ADIFF, ANEU ####[address] [address] Sodium [Moles/Vol] 135 mmol/L Low 136-145 [facility] ([place]) Comment on above: Performed By: #### C BC, BMP, GFR, PRO, ADIFF, ANEU ####[address] [address] Urea nitrogen [Mass/Vol] 43.0 mg/dL High 8.0-22.0 [facility] ([place]) Comment on above: Performed By: #### C BC, BMP, GFR, PRO, ADIFF, ANEU ####[address] [address] CBCon 04-22-2023 Erythrocyte distribution width (RBC) [Ratio] 15.3 % Normal 11.5-15.5 [facility] ([place]) Comment on above: Performed By: #### C BC, BMP, GFR, PRO, ADIFF, ANEU ####[place] [address] Hematocrit (Bld) [Volume fraction] 33.5 % Low 40.0-52.0 [facility] ([place] Comment on above: Performed By: #### C BC, BMP, GFR, PRO, ADIFF, ANEU ####[place] [address] Hgb 11.2 G/dL Low 13.0-17.5 [facility] ([place] Comment on above: Performed By: #### C BC, BMP, GFR, PRO, ADIFF, ANEU ####[place] [address] MCH (RBC) [Entitic mass] 30.6 pg Normal 27.0-33.0 [facility] ([place] Comment on above: Performed By: #### C BC, BMP, GFR, PRO, ADIFF, ANEU ####[place] [address] MCHC 33.5 G/dL Normal 32.0-36.0 [facility] ([place] Comment on above: Performed By: #### C BC, BMP, GFR, PRO, ADIFF, ANEU ####[place] [address] MCV (RBC) [Entitic vol] 91.6 fL Normal 81.0-100.0 [facility] ([place] Comment on above: Performed By: #### C BC, BMP, GFR, PRO, ADIFF, ANEU ####[place] [address] Platelet 228 10 3/mcL Normal 150-450 [facility] ([place] Comment on above: Performed By: #### C BC, BMP, GFR, PRO, ADIFF, ANEU ####[place] [address] Platelet mean volume (Bld) [Entitic vol] 7.4 fL Normal 6.4-10.5 [facility] ([place] Comment on above: Performed By: #### C BC, BMP, GFR, PRO, ADIFF, ANEU ####[place] [address] RBC 3.65 10 6/mcL Low 4.50-6.00 [facility] ([place] Comment on above: Performed By: #### C BC, BMP, GFR, PRO, ADIFF, ANEU ####[place] [address] WBC 5.5 10 3/mcL Normal 4.5-10.8 [facility] ([place] Comment on above: Performed By: #### C BC, BMP, GFR, PRO, ADIFF, ANEU ####[place] [address] PROon 04-22-2023 INR Coag (PPP) [Relative time] 0.9 {INR} Normal [facility] ([place]) Comment on above: Result Comment: [employer] (CHEST, 1992, 102:312S-25S) recommended therapeutic range for oral anticoagulant therapy is: LOW RISK: Prophylaxis of venous thrombosis INR: 2.0-3.0 Treatment of pulmonary embolism 2.0-3.0 Prevention of systemic embolism 2.0-3.0 HIGH RISK: Mechanical prosthetic valves 2.5-3.5 Performed By: #### C BC, BMP, GFR, PRO, ADIFF, ANEU ####[place] [address] PT Coag (PPP) [Time] 10.7 s Normal 9.0-14.2 [facility] ([place]) Comment on above: Result Comment: Effe ctive 01/05/08, Protime results may be affected by some antibiotics (i.e. Ciprofloxacin, Azithromycin, Bactrim) which may potentiate the action of oral anticoagulants, with further increases in Protime/INR. Performed By: #### C BC, BMP, GFR, PRO, ADIFF, ANEU ####[place] [address] XR WRIST NAVICULAR 4 VIEWS L Ton [...] the resident's findings and interpretation. Interpreted by: Verito Long Preliminary Report By: Elder Fuller Electronically signed By Verito Long Dictated Date: 01/16/2023 5:08:21 PM Prelim Date: 01/16/2023 5:10:43 PM Sign Date: 01/16/2023 5:34:20 PM Ordering Provider: ERNST MACIEL [facility]) XR FOOT MINIMUM 3 VIEWS LEFT on [...] acute fracture or dislocation. Interpreted by: Lyle Braswell Preliminary Report By: Lyle Braswell Electronically signed By Lyle Braswell Dictated Date: 12/28/2022 5:48:21 PM Prelim Date: 12/28/2022 5:50:37 PM Sign Date: 12/28/2022 5:50:37 PM Ordering Provider: CAROLE LEDBETTER [facility]) CT THORAX W/O CONTRASTon CT THORAX W/O [...] 11/29/2022 2:56:11 PM Ordering Provider: VINCENZO BARBER [facility] ([place] EMERGENCY REPORTon 3 EMERGENCY REPORT [facility] EMERGENCY ROOM REPORT NAME ACCOUNT SEX AGE ADMIT DISCHARGE PT MED. RECORD# NUMBER DATE DATE TYPE CARLITOS SWEENEY [id number] M 46 09/23/22 3 [id number] ROOM: ER DATE OF : 1975 DICTATING [...] of 93-94%. He was treated with two [id number] DuoNebs with improvement of his respiratory status. [...] Julian Mclean DO 09/23/22 11:25 JOB #: [id number] Transcribed By: della 09/23/22 11:32 Electronically signed by: E-SIGN: Julian Mclean D.O. 10/14/22 06:57 Page 2 of 2 CARLITOS SWEENEY Emergency Room Report Normal [facility] 10-08-2022 Troponin I High Sensitivity 34.6 ng/L Normal 0.0-76.2 [facility] ([place]) Comment on above: Performed By: #### T [facility] ####[address] [place], [place] [address] XR CHEST 2 VIEWSon 3 XR CHEST [...] the resident's findings and interpretation. Interpreted by: Verito Long Preliminary Report By: Betsey Mcarthur Electronically signed By Verito Long Dictated Date: 10/08/2022 4:25:16 PM Prelim Date: 10/08/2022 4:28:40 PM Sign Date: 10/08/2022 4:29:36 PM Ordering Provider: ELISEO Street [facility] ([place]) .Auto Diffon 09-27-2022 Basophil, Absolute 0.1 10 3/mcL Normal 0.0-0.3 [facility] ([place]) Comment on above: Performed By: #### C BC, GFR, BMP, ADIFF, ANEU ####[address] [address] Basophils/100 WBC (Bld) 1.1 % Normal 0.0-2.5 [facility] ([place] Comment on above: Performed By: #### C BC, GFR, BMP, ADIFF, ANEU ####[address] [address] Eosinophil, Absolute 0.2 10 3/mcL Normal 0.0-0.7 [facility] ([place]) Comment on above: Performed By: #### C BC, GFR, BMP, ADIFF, ANEU ####[address] [address] Eosinophils/100 WBC (Bld) 3.8 % Normal 0.0-6.0 [facility] ([place]) Comment on above: Performed By: #### C BC, GFR, BMP, ADIFF, ANEU ####[address] [address] Lymphocyte, Absolute 0.6 10 3/mcL Low 0.9-4.3 [facility] ([place]) Comment on above: Performed By: #### C BC, GFR, BMP, ADIFF, ANEU ####[address] [address] Lymphocytes/100 WBC (Bld) 10.6 % Low 20.0-40.0 [facility] ([place] Comment on above: Performed By: #### C BC, GFR, BMP, ADIFF, ANEU ####[address] [address] Monocyte, Absolute 0.7 10 3/mcL Normal 0.1-1.4 [facility] ([place] Comment on above: Performed By: #### C BC, GFR, BMP, ADIFF, ANEU ####[place] [address] [place] [address] Monocytes/100 WBC (Bld) 11.4 % Normal 2.0-13.0 [facility] ([place]) Comment on above: Performed By: #### C BC, GFR, BMP, ADIFF, ANEU ####[address] [address] Neutrophils/100 WBC (Bld) 73.1 % Normal 50.0-75.0 [facility] ([place]) Comment on above: Performed By: #### C BC, GFR, BMP, ADIFF, ANEU ####[address] [address] .GFRon 09-27-2022 GFR 9 ml/min/1.73sqm Normal [facility] ([place]) Comment on above: Result Comment: GFR [...] #### C BC, GFR, BMP, ADIFF, ANEU ####[address] [address] GFR Non- 8 ml/min/1.73sqm Normal [facility] ([place]) Comment on above: Result Comment: GFR [...] #### C BC, GFR, BMP, ADIFF, ANEU ####[address] [address] .NEUABSon 09-27-2022 Neutrophil, Absolute 4.2 10 3/mcL Normal 2.3-8.1 [facility] ([place]) Comment on above: Performed By: #### C BC, GFR, BMP, ADIFF, ANEU ####[place] [address] BMPon 09-27-2022 BUN/Creatinine Ratio 4.3 ratio Low 10.0-22.0 [facility] ([place]) Comment on above: Performed By: #### C BC, GFR, BMP, ADIFF, ANEU ####[place] [address] Calcium [Mass/Vol] 8.2 mg/dL Low 8.7-10.4 [facility] ([place] Comment on above: Performed By: #### C BC, GFR, BMP, ADIFF, ANEU ####[place] [address] Chloride [Moles/Vol] 99 mmol/L Normal 98-110 [facility] ([place] Comment on above: Performed By: #### C BC, GFR, BMP, ADIFF, ANEU ####[place] [address] CO2 [Moles/Vol] 29 mmol/L Normal 22-32 [facility] ([place] Comment on above: Performed By: #### C BC, GFR, BMP, ADIFF, ANEU ####[place] [address] Creatinine [Mass/Vol] 7.64 mg/dL High 0.60-1.40 [facility] ([place]) Comment on above: Performed By: #### C BC, GFR, BMP, ADIFF, ANEU ####[address] [address] Electrolyte Balance 6.0 mEq/L Normal 4.0-15.0 [facility] ([place]) Comment on above: Performed By: #### C BC, GFR, BMP, ADIFF, ANEU ####[address] [address] Glucose [Mass/Vol] 89 mg/dL Normal 70-110 [facility] ([place] Comment on above: Performed By: #### C BC, GFR, BMP, ADIFF, ANEU ####[place] [address] Potassium [Moles/Vol] 5.5 mmol/L High 3.5-5.0 [facility] ([place] Comment on above: Performed By: #### C BC, GFR, BMP, ADIFF, ANEU ####[place] [address] Sodium [Moles/Vol] 134 mmol/L Low 136-145 [facility] ([place] Comment on above: Performed By: #### C BC, GFR, BMP, ADIFF, ANEU ####[place] [address] Urea nitrogen [Mass/Vol] 33.0 mg/dL High 8.0-22.0 [facility] ([place] Comment on above: Performed By: #### C BC, GFR, BMP, ADIFF, ANEU ####[address] [address] CBCon 09-27-2022 Erythrocyte distribution width (RBC) [Ratio] 17.7 % High 11.5-15.5 [facility] ([place] Comment on above: Performed By: #### C BC, GFR, BMP, ADIFF, ANEU ####[place] [address] Hematocrit (Bld) [Volume fraction] 26.4 % Low 40.0-52.0 [facility] ([place] Comment on above: Performed By: #### C BC, GFR, BMP, ADIFF, ANEU ####[place] [address] Hgb 8.1 G/dL Low 13.0-17.5 [facility] ([place] Comment on above: Performed By: #### C BC, GFR, BMP, ADIFF, ANEU ####[place] [address] MCH (RBC) [Entitic mass] 25.1 pg Low 27.0-33.0 [facility] ([place] Comment on above: Performed By: #### C BC, GFR, BMP, ADIFF, ANEU ####[place] [address] MCHC 30.9 G/dL Low 32.0-36.0 [facility] ([place] Comment on above: Performed By: #### C BC, GFR, BMP, ADIFF, ANEU ####[place] [address] MCV (RBC) [Entitic vol] 81.2 fL Normal 81.0-100.0 [facility] ([place] Comment on above: Performed By: #### C BC, GFR, BMP, ADIFF, ANEU ####[place] [address] Platelet 312 10 3/mcL Normal 150-450 [facility] ([place] Comment on above: Performed By: #### C BC, GFR, BMP, ADIFF, ANEU ####[place] [address] Platelet mean volume (Bld) [Entitic vol] 6.3 fL Low 6.4-10.5 [facility] ([place] Comment on above: Performed By: #### C BC, GFR, BMP, ADIFF, ANEU ####[place] [address] RBC 3.25 10 6/mcL Low 4.50-6.00 [facility] ([place] Comment on above: Performed By: #### C BC, GFR, BMP, ADIFF, ANEU ####[place] [address] WBC 5.8 10 3/mcL Normal 4.5-10.8 [facility] ([place] Comment on above: Performed By: #### C BC, GFR, BMP, ADIFF, ANEU ####[address] [address] Jose 09-27-2022 Potassium [Moles/Vol] 4.1 mmol/L Normal 3.5-5.0 [facility] ([place] Comment on above: Performed By: #### R BCP #### [place] [address] .Auto Diffon 09-26-2022 Basophil, Absolute 0.0 10 3/mcL Normal 0.0-0.3 [facility] ([place]) Comment on above: Performed By: #### G FR, FES, FOL, CMP, MG, FERR, CBC, B12, ADIFF, RFP, ANEU ####[place] [address] Basophils/100 WBC (Bld) 0.8 % Normal 0.0-2.5 [facility] ([place] Comment on above: Performed By: #### G FR, FES, FOL, CMP, MG, FERR, CBC, B12, ADIFF, RFP, ANEU ####[place] [address] Eosinophil, Absolute 0.2 10 3/mcL Normal 0.0-0.7 [facility] ([place] Comment on above: Performed By: #### G FR, FES, FOL, CMP, MG, FERR, CBC, B12, ADIFF, RFP, ANEU ####[place] [address] Eosinophils/100 WBC (Bld) 2.5 % Normal 0.0-6.0 [facility] ([place] Comment on above: Performed By: #### G FR, FES, FOL, CMP, MG, FERR, CBC, B12, ADIFF, RFP, ANEU ####[place] [address] Lymphocyte, Absolute 0.7 10 3/mcL Low 0.9-4.3 [facility] ([place] Comment on above: Performed By: #### G FR, FES, FOL, CMP, MG, FERR, CBC, B12, ADIFF, RFP, ANEU ####[address] [address] Lymphocytes/100 WBC (Bld) 11.3 % Low 20.0-40.0 [facility] ([place] Comment on above: Performed By: #### G FR, FES, FOL, CMP, MG, FERR, CBC, B12, ADIFF, RFP, ANEU ####[address] [address] Monocyte, Absolute 0.8 10 3/mcL Normal 0.1-1.4 [facility] ([place] Comment on above: Performed By: #### G FR, FES, FOL, CMP, MG, FERR, CBC, B12, ADIFF, RFP, ANEU ####[address] [address] Monocytes/100 WBC (Bld) 13.1 % High 2.0-13.0 [facility] ([place] Comment on above: Performed By: #### G FR, FES, FOL, CMP, MG, FERR, CBC, B12, ADIFF, RFP, ANEU ####[address] [address] Neutrophils/100 WBC (Bld) 72.3 % Normal 50.0-75.0 [facility] ([place] Comment on above: Performed By: #### G FR, FES, FOL, CMP, MG, FERR, CBC, B12, ADIFF, RFP, ANEU ####[address] [address] .GFRon 09-26-2022 GFR 13 ml/min/1.73sqm Normal [facility] ([place]) Comment on above: Result Comment: GFR Population [...] MG, FERR, CBC, B12, ADIFF, RFP, ANEU ####[place] [address] GFR Non- 11 ml/min/1.73sqm Normal [facility] ([place] Comment on above: Result Comment: GFR Population [...] MG, FERR, CBC, B12, ADIFF, RFP, ANEU ####[place] [address] .NEUABSon 09-26-2022 Neutrophil, Absolute 4.6 10 3/mcL Normal 2.3-8.1 [facility] ([place] Comment on above: Performed By: #### G FR, FES, FOL, CMP, MG, FERR, CBC, B12, ADIFF, RFP, ANEU ####[place] [address] B12on 09-26-2022 Cobalamin (Vitamin B12) [Mass/Vol] 650 pg/mL Normal 211-911 [facility] ([place]) Comment on above: Performed By: #### G FR, FES, FOL, CMP, MG, FERR, CBC, B12, ADIFF, RFP, ANEU ####[place] [address] CBCon 09-26-2022 Erythrocyte distribution width (RBC) [Ratio] 17.5 % High 11.5-15.5 [facility] ([place]) Comment on above: Performed By: #### G FR, FES, FOL, CMP, MG, FERR, CBC, B12, ADIFF, RFP, ANEU ####[place] [address] Hematocrit (Bld) [Volume fraction] 24.6 % Low 40.0-52.0 [facility] ([place] Comment on above: Performed By: #### G FR, FES, FOL, CMP, MG, FERR, CBC, B12, ADIFF, RFP, ANEU ####[place] [address] Hgb 7.6 G/dL Low 13.0-17.5 [facility] ([place]) Comment on above: Performed By: #### G FR, FES, FOL, CMP, MG, FERR, CBC, B12, ADIFF, RFP, ANEU ####[place] [address] MCH (RBC) [Entitic mass] 24.9 pg Low 27.0-33.0 [facility] ([place] Comment on above: Performed By: #### G FR, FES, FOL, CMP, MG, FERR, CBC, B12, ADIFF, RFP, ANEU ####[place] [address] MCHC 30.7 G/dL Low 32.0-36.0 [facility] ([place] Comment on above: Performed By: #### G FR, FES, FOL, CMP, MG, FERR, CBC, B12, ADIFF, RFP, ANEU ####[place] [address] MCV (RBC) [Entitic vol] 81.0 fL Normal 81.0-100.0 [facility] ([place] Comment on above: Performed By: #### G FR, FES, FOL, CMP, MG, FERR, CBC, B12, ADIFF, RFP, ANEU ####[place] [address] Platelet 325 10 3/mcL Normal 150-450 [facility] ([place] Comment on above: Performed By: #### G FR, FES, FOL, CMP, MG, FERR, CBC, B12, ADIFF, RFP, ANEU ####[place] [address] Platelet mean volume (Bld) [Entitic vol] 6.3 fL Low 6.4-10.5 [facility] ([place] Comment on above: Performed By: #### G FR, FES, FOL, CMP, MG, FERR, CBC, B12, ADIFF, RFP, ANEU ####[place] [address] RBC 3.04 10 6/mcL Low 4.50-6.00 [facility] ([place] Comment on above: Performed By: #### G FR, FES, FOL, CMP, MG, FERR, CBC, B12, ADIFF, RFP, ANEU ####[place] [address] WBC 6.4 10 3/mcL Normal 4.5-10.8 [facility] ([place]) Comment on above: Performed By: #### G FR, FES, FOL, CMP, MG, FERR, CBC, B12, ADIFF, RFP, ANEU ####[place] [address] CMPon 09-26-2022 Albumin/Globulin [Mass ratio] 0.6 {ratio} Low 0.9-1.6 [facility] ([place] Comment on above: Performed By: #### G FR, FES, FOL, CMP, MG, FERR, CBC, B12, ADIFF, RFP, ANEU ####[place] [address] ALP [Catalytic activity/Vol] 79 U/L Normal 38-126 [facility] ([place]) Comment on above: Performed By: #### G FR, FES, FOL, CMP, MG, FERR, CBC, B12, ADIFF, RFP, ANEU ####[place] [address] ALT [Catalytic activity/Vol] 70 U/L High 12-55 [facility] ([place]) Comment on above: Performed By: #### G FR, FES, FOL, CMP, MG, FERR, CBC, B12, ADIFF, RFP, ANEU ####[place] [address] AST [Catalytic activity/Vol] 53 U/L High 8-34 [facility] ([place]) Comment on above: Performed By: #### G FR, FES, FOL, CMP, MG, FERR, CBC, B12, ADIFF, RFP, ANEU ####[place] [address] Bili Total 0.20 mg/dL Normal 0.20-1.20 [facility] ([place]) Comment on above: Result Comment: Use of this assay is not recommended for patients undergoing treatment with eltrombopag due to the potential for falsely elevated results. Performed By: #### G FR, FES, FOL, CMP, MG, FERR, CBC, B12, ADIFF, RFP, ANEU ####[place] [address] Globulin 4.4 G/dL High 1.5-3.8 [facility] ([place] Comment on above: Performed By: #### G FR, FES, FOL, CMP, MG, FERR, CBC, B12, ADIFF, RFP, ANEU ####[place] [address] Total Protein 6.9 G/dL Normal 5.7-8.2 [facility] ([place]) Comment on above: Result Comment: No te - New Reference Range in effect 20 Performed By: #### G FR, FES, FOL, CMP, MG, FERR, CBC, B12, ADIFF, RFP, ANEU ####[place] [address] Ilia 09-26-2022 Ferritin [Mass/Vol] 1977.5 ng/mL High 26.0-388.0 [facility] ([place] Comment on above: Performed By: #### G FR, FES, FOL, CMP, MG, FERR, CBC, B12, ADIFF, RFP, ANEU ####[place] [address] FESon 09-26-2022 Iron [Mass/Vol] 23 ug/dL Low 65-175 [facility] ([place] Comment on above: Performed By: #### G FR, FES, FOL, CMP, MG, FERR, CBC, B12, ADIFF, RFP, ANEU ####[place] [address] Iron Sat 13 % Normal [facility] ([place] Comment on above: Performed By: #### G FR, FES, FOL, CMP, MG, FERR, CBC, B12, ADIFF, RFP, ANEU ####[place] [address] TIBC 183 mcg/dL Low 250-500 [facility] ([place] Comment on above: Performed By: #### G FR, FES, FOL, CMP, MG, FERR, CBC, B12, ADIFF, RFP, ANEU ####[place] [address] FOLon 09-26-2022 Folate 3.88 ng/mL Low 5.38-24.00 [facility] ([place] Comment on above: Performed By: #### G FR, FES, FOL, CMP, MG, FERR, CBC, B12, ADIFF, RFP, ANEU ####[place] [address] MGon 09-26-2022 Magnesium [Mass/Vol] 2.1 mg/dL Normal 1.6-2.4 [facility] ([place] Comment on above: Performed By: #### G FR, FES, FOL, CMP, MG, FERR, CBC, B12, ADIFF, RFP, ANEU ####[place] [address] RFPon 09-26-2022 Albumin Level 2.5 G/dL Low 3.2-4.8 [facility] ([place] Comment on above: Performed By: #### G FR, FES, FOL, CMP, MG, FERR, CBC, B12, ADIFF, RFP, ANEU ####[place] [address] BUN/Creatinine Ratio 4.0 ratio Low 10.0-22.0 [facility] ([place] Comment on above: Performed By: #### G FR, FES, FOL, CMP, MG, FERR, CBC, B12, ADIFF, RFP, ANEU ####[address] [address] Calcium [Mass/Vol] 8.0 mg/dL Low 8.7-10.4 [facility] ([place] Comment on above: Performed By: #### G FR, FES, FOL, CMP, MG, FERR, CBC, B12, ADIFF, RFP, ANEU ####[address] [address] Chloride [Moles/Vol] 102 mmol/L Normal 98-110 [facility] ([place] Comment on above: Performed By: #### G FR, FES, FOL, CMP, MG, FERR, CBC, B12, ADIFF, RFP, ANEU ####[address] [address] CO2 [Moles/Vol] 31 mmol/L Normal 22-32 [facility] ([place] Comment on above: Performed By: #### G FR, FES, FOL, CMP, MG, FERR, CBC, B12, ADIFF, RFP, ANEU ####[place] [address] Creatinine [Mass/Vol] 5.75 mg/dL High 0.60-1.40 [facility] ([place] Comment on above: Performed By: #### G FR, FES, FOL, CMP, MG, FERR, CBC, B12, ADIFF, RFP, ANEU ####[place] [address] Electrolyte Balance 5.0 mEq/L Normal 4.0-15.0 [facility] ([place]) Comment on above: Performed By: #### G FR, FES, FOL, CMP, MG, FERR, CBC, B12, ADIFF, RFP, ANEU ####[address] [address] Glucose [Mass/Vol] 96 mg/dL Normal 70-110 [facility] ([place] Comment on above: Performed By: #### G FR, FES, FOL, CMP, MG, FERR, CBC, B12, ADIFF, RFP, ANEU ####[address] [address] Phosphate [Mass/Vol] 3.1 mg/dL Normal 2.4-5.1 [facility] ([place] Comment on above: Result Comment: No te - New Reference Range in effect 20 Performed By: #### G FR, FES, FOL, CMP, MG, FERR, CBC, B12, ADIFF, RFP, ANEU ####[place] [id number] [place] [address] Potassium [Moles/Vol] 5.1 mmol/L High 3.5-5.0 [facility] ([place] Comment on above: Performed By: #### G FR, FES, FOL, CMP, MG, FERR, CBC, B12, ADIFF, RFP, ANEU ####[place] [address] [place] [address] Sodium [Moles/Vol] 138 mmol/L Normal 136-145 [facility] ([place] Comment on above: Performed By: #### G FR, FES, FOL, CMP, MG, FERR, CBC, B12, ADIFF, RFP, ANEU ####[place] [address] [place] [address] Urea nitrogen [Mass/Vol] 23.0 mg/dL High 8.0-22.0 [facility] ([place] Comment on above: Performed By: #### G FR, FES, FOL, CMP, MG, FERR, CBC, B12, ADIFF, RFP, ANEU ####[address] [address] XR CHEST 1 VIEWon 09-26-2022 XR CHEST [...] 09/26/2022 9:36:05 AM Ordering Provider: NAPOLEON CARVAJAL [facility] [place] XR CHEST 1 VIEW ORIGINAL EXAMINATION: ONE [...] by: Aj Dhaliwal MD Preliminary Report By: Vreito Chávez Electronically signed By Aj Dhaliwal MD Dictated Date: 2022 10:11:06 PM Prelim Date: 2022 10:13:44 PM Sign Date: 2022 10:16:49 PM Ordering Provider: TONY BOSCH [facility] ([place] .Auto Diffon 2022 Basophil, Absolute 0.1 10 3/mcL Normal 0.0-0.3 [facility] ([place]) Comment on above: Performed By: #### C BC, MG, CMP, ADIFF, GFR, ANEU ####[facility] [place] [address] Basophils/100 WBC (Bld) 1.1 % Normal 0.0-2.5 [facility] ([place] Comment on above: Performed By: #### C BC, MG, CMP, ADIFF, GFR, ANEU ####[address] [address] Eosinophil, Absolute 0.2 10 3/mcL Normal 0.0-0.7 [facility] ([place]) Comment on above: Performed By: #### C BC, MG, CMP, ADIFF, GFR, ANEU ####[address] [address] Eosinophils/100 WBC (Bld) 3.9 % Normal 0.0-6.0 [facility] ([place]) Comment on above: Performed By: #### C BC, MG, CMP, ADIFF, GFR, ANEU ####[address] [address] Lymphocyte, Absolute 0.5 10 3/mcL Low 0.9-4.3 [facility] ([place]) Comment on above: Performed By: #### C BC, MG, CMP, ADIFF, GFR, ANEU ####[address] [address] Lymphocytes/100 WBC (Bld) 9.1 % Low 20.0-40.0 [facility] ([place]) Comment on above: Performed By: #### C BC, MG, CMP, ADIFF, GFR, ANEU ####[address] [address] Monocyte, Absolute 0.6 10 3/mcL Normal 0.1-1.4 [facility] ([place] Comment on above: Performed By: #### C BC, MG, CMP, ADIFF, GFR, ANEU ####[address] [address] Monocytes/100 WBC (Bld) 11.5 % Normal 2.0-13.0 [facility] ([place]) Comment on above: Performed By: #### C BC, MG, CMP, ADIFF, GFR, ANEU ####[address] [address] Neutrophils/100 WBC (Bld) 74.4 % Normal 50.0-75.0 [facility] ([place] Comment on above: Performed By: #### C BC, MG, CMP, ADIFF, GFR, ANEU ####[address] [address] .GFRon 2022 GFR 9 ml/min/1.73sqm Normal [facility] ([place] Comment on above: Result Comment: GFR Population [...] C BC, MG, CMP, ADIFF, GFR, ANEU ####[place] [address] GFR Non- 7 ml/min/1.73sqm Normal [facility] ([place] Comment on above: Result Comment: GFR Population [...] C BC, MG, CMP, ADIFF, GFR, ANEU ####[address] [address] .NEUABSon 2022 Neutrophil, Absolute 3.8 10 3/mcL Normal 2.3-8.1 [facility] ([place]) Comment on above: Performed By: #### C BC, MG, CMP, ADIFF, GFR, ANEU ####[address] [address] ABO/Rh (Gel)on 2022 ABO/Rh Interp Positive Invalid Interpretation Code [facility] ([place] Comment on above: Performed By: #### A BSGEL, ABOGEL #### [place] [id number] ABS (Gel)on 2022 ABSC Interp (Gel) Negative Normal [facility] ([place] Comment on above: Performed By: #### A BSGEL, ABOGEL ####[place] [id number] CBCon 2022 Erythrocyte distribution width (RBC) [Ratio] 17.1 % High 11.5-15.5 [facility] ([place] Comment on above: Performed By: #### C BC, MG, CMP, ADIFF, GFR, ANEU ####[place] [address] Hematocrit (Bld) [Volume fraction] 23.8 % Low 40.0-52.0 [facility] ([place] Comment on above: Performed By: #### C BC, MG, CMP, ADIFF, GFR, ANEU ####[place] [address] Hgb 7.5 G/dL Low 13.0-17.5 [facility] ([place] Comment on above: Performed By: #### C BC, MG, CMP, ADIFF, GFR, ANEU ####[place] [address] MCH (RBC) [Entitic mass] 25.3 pg Low 27.0-33.0 [facility] ([place] Comment on above: Performed By: #### C BC, MG, CMP, ADIFF, GFR, ANEU ####[place] [address] MCHC 31.5 G/dL Low 32.0-36.0 [facility] ([place] Comment on above: Performed By: #### C BC, MG, CMP, ADIFF, GFR, ANEU ####[place] [address] MCV (RBC) [Entitic vol] 80.2 fL Low 81.0-100.0 [facility] ([place] Comment on above: Performed By: #### C BC, MG, CMP, ADIFF, GFR, ANEU ####[place] [address] Platelet 342 10 3/mcL Normal 150-450 [facility] ([place] Comment on above: Performed By: #### C BC, MG, CMP, ADIFF, GFR, ANEU ####[place] [address] Platelet mean volume (Bld) [Entitic vol] 6.6 fL Normal 6.4-10.5 [facility] ([place] Comment on above: Performed By: #### C BC, MG, CMP, ADIFF, GFR, ANEU ####[place] [address] RBC 2.97 10 6/mcL Low 4.50-6.00 [facility] ([place] Comment on above: Performed By: #### C BC, MG, CMP, ADIFF, GFR, ANEU ####[place] [address] WBC 5.2 10 3/mcL Normal 4.5-10.8 [facility] ([place] Comment on above: Performed By: #### C BC, MG, CMP, ADIFF, GFR, ANEU ####[place] [address] CMPon 2022 Albumin Level 2.4 G/dL Low 3.2-4.8 [facility] ([place] Comment on above: Performed By: #### C BC, MG, CMP, ADIFF, GFR, ANEU ####[place] [address] Albumin/Globulin [Mass ratio] 0.6 {ratio} Low 0.9-1.6 [facility] ([place] Comment on above: Performed By: #### C BC, MG, CMP, ADIFF, GFR, ANEU ####[address] [address] ALP [Catalytic activity/Vol] 79 U/L Normal 38-126 [facility] ([place] Comment on above: Performed By: #### C BC, MG, CMP, ADIFF, GFR, ANEU ####[address] [address] ALT [Catalytic activity/Vol] 65 U/L High 12-55 [facility] ([place] Comment on above: Performed By: #### C BC, MG, CMP, ADIFF, GFR, ANEU ####[address] [address] AST [Catalytic activity/Vol] 46 U/L High 8-34 [facility] ([place] Comment on above: Performed By: #### C BC, MG, CMP, ADIFF, GFR, ANEU ####[place] [address] Bili Total <0.20 Normal 0.20-1.20 [facility] ([place] Comment on above: Result Comment: Use of this assay is not recommended for patients undergoing treatment with eltrombopag due to the potential for falsely elevated results. Performed By: #### C BC, MG, CMP, ADIFF, GFR, ANEU ####[place] [address] BUN/Creatinine Ratio 4.7 ratio Low 10.0-22.0 [facility] ([place] Comment on above: Performed By: #### C BC, MG, CMP, ADIFF, GFR, ANEU ####[place] [address] Calcium [Mass/Vol] 7.8 mg/dL Low 8.7-10.4 [facility] ([place] Comment on above: Performed By: #### C BC, MG, CMP, ADIFF, GFR, ANEU ####[place] [address] Chloride [Moles/Vol] 102 mmol/L Normal 98-110 [facility] ([place] Comment on above: Performed By: #### C BC, MG, CMP, ADIFF, GFR, ANEU ####[address] [address] CO2 [Moles/Vol] 31 mmol/L Normal 22-32 [facility] ([place] Comment on above: Performed By: #### C BC, MG, CMP, ADIFF, GFR, ANEU ####[address] [address] Creatinine [Mass/Vol] 7.85 mg/dL High 0.60-1.40 [facility] ([place] Comment on above: Performed By: #### C BC, MG, CMP, ADIFF, GFR, ANEU ####[address] [address] Electrolyte Balance 8.0 mEq/L Normal 4.0-15.0 [facility] ([place] Comment on above: Performed By: #### C BC, MG, CMP, ADIFF, GFR, ANEU ####[address] [address] Globulin 4.1 G/dL High 1.5-3.8 [facility] ([place] Comment on above: Performed By: #### C BC, MG, CMP, ADIFF, GFR, ANEU ####[place] [address] Glucose [Mass/Vol] 124 mg/dL High 70-110 [facility] ([place] Comment on above: Performed By: #### C BC, MG, CMP, ADIFF, GFR, ANEU ####[address] [address] Potassium [Moles/Vol] 4.8 mmol/L Normal 3.5-5.0 [facility] ([place] Comment on above: Performed By: #### C BC, MG, CMP, ADIFF, GFR, ANEU ####[address] [address] Sodium [Moles/Vol] 141 mmol/L Normal 136-145 [facility] ([place] Comment on above: Performed By: #### C BC, MG, CMP, ADIFF, GFR, ANEU ####[place] [address] Total Protein 6.5 G/dL Normal 5.7-8.2 [facility] ([place] Comment on above: Result Comment: No te - New Reference Range in effect 20 Performed By: #### C BC, MG, CMP, ADIFF, GFR, ANEU ####[address] [address] Urea nitrogen [Mass/Vol] 37.0 mg/dL High 8.0-22.0 [facility] ([place] Comment on above: Performed By: #### C BC, MG, CMP, ADIFF, GFR, ANEU ####[address] [address] MGon 2022 Magnesium [Mass/Vol] 2.2 mg/dL Normal 1.6-2.4 [facility] ([place] Comment on above: Performed By: #### C BC, MG, CMP, ADIFF, GFR, ANEU ####[place] [id number] RBC (Product)on 2022 RBC Product Ready RBC Ready for Pickup Normal [facility] ([place] Comment on above: Performed By: #### R BCP #### [place] [address] TROPHSon 2022 Troponin I High Sensitivity 32.00 ng/L Normal 0.00-54.00 [facility] ([place] Comment on above: Result Comment: If t he High Sensitive Troponin result is below the 99th percentile value (<45 ng/L) at the first blood draw, at least two additional blood samples should be drawn before results are interpreted as negative for AMI. Performed By: #### T ROPHS ####[address] [address] .Auto Diffon 09-24-2022 Basophil, Absolute 0.0 10 3/mcL Normal 0.0-0.3 [facility] ([place] Comment on above: Performed By: #### R BCP #### [place] [address] Basophils/100 WBC (Bld) 0.7 % Normal 0.0-2.5 [facility] ([place] Comment on above: Performed By: #### R BCP #### [address] [address] Eosinophil, Absolute 0.2 10 3/mcL Normal 0.0-0.7 [facility] ([place] Comment on above: Performed By: #### R BCP #### [address] [address] Eosinophils/100 WBC (Bld) 3.1 % Normal 0.0-6.0 [facility] ([place] Comment on above: Performed By: #### R BCP #### [address] [address] Lymphocyte, Absolute 0.5 10 3/mcL Low 0.9-4.3 [facility] ([place] Comment on above: Performed By: #### R BCP #### [address] [address] Lymphocytes/100 WBC (Bld) 9.9 % Low 20.0-40.0 [facility] ([place] Comment on above: Performed By: #### R BCP #### [address] [address] Monocyte, Absolute 0.5 10 3/mcL Normal 0.1-1.4 [facility] ([place] Comment on above: Performed By: #### R BCP #### [address] [address] Monocytes/100 WBC (Bld) 9.7 % Normal 2.0-13.0 [facility] ([place] Comment on above: Performed By: #### R BCP #### [address] [address] Neutrophils/100 WBC (Bld) 76.6 % High 50.0-75.0 [facility] ([place] Comment on above: Performed By: #### R BCP #### [address] [address] .GFRon 09-24-2022 GFR Non- 4 ml/min/1.73sqm Normal [facility] ([place] Comment on above: Result Comment: GFR Population [...] DIFF, MG, LD, ANEU, GFR, CMP, CBC ####[address] [address] GFR 5 ml/min/1.73sqm Normal [facility] ([place] Comment on above: Result Comment: GFR Population [...] DIFF, MG, LD, ANEU, GFR, CMP, CBC ####[address] [address] .NEUABSon 09-24-2022 Neutrophil, Absolute 4.3 10 3/mcL Normal 2.3-8.1 [facility] ([place] Comment on above: Performed By: #### A DIFF, MG, LD, ANEU, GFR, CMP, CBC ####[address] [address] CBCon 09-24-2022 Erythrocyte distribution width (RBC) [Ratio] 17.4 % High 11.5-15.5 [facility] ([place] Comment on above: Performed By: #### R BCP #### [place] [address] Hematocrit (Bld) [Volume fraction] 24.3 % Low 40.0-52.0 [facility] ([place] Comment on above: Performed By: #### R BCP #### [place] [address] Hgb 7.7 G/dL Low 13.0-17.5 [facility] ([place] Comment on above: Performed By: #### R BCP #### [place] [address] MCH (RBC) [Entitic mass] 25.0 pg Low 27.0-33.0 [facility] ([place] Comment on above: Performed By: #### R BCP #### [place] [address] MCHC 31.5 G/dL Low 32.0-36.0 [facility] ([place] Comment on above: Performed By: #### R BCP #### [place] [address] MCV (RBC) [Entitic vol] 79.5 fL Low 81.0-100.0 [facility] ([place] Comment on above: Performed By: #### R BCP #### [place] [address] Platelet 368 10 3/mcL Normal 150-450 [facility] ([place] Comment on above: Performed By: #### R BCP #### [place] [address] Platelet mean volume (Bld) [Entitic vol] 6.9 fL Normal 6.4-10.5 [facility] ([place] Comment on above: Performed By: #### R BCP #### [place] [address] RBC 3.06 10 6/mcL Low 4.50-6.00 [facility] ([place] Comment on above: Performed By: #### R BCP #### [place] [address] WBC 5.6 10 3/mcL Normal 4.5-10.8 [facility] ([place] Comment on above: Performed By: #### R BCP #### [place] [address] CMPon 09-24-2022 Albumin Level 2.4 G/dL Low 3.2-4.8 [facility] ([place] Comment on above: Performed By: #### A DIFF, MG, LD, ANEU, GFR, CMP, CBC ####[place] [address] Albumin/Globulin [Mass ratio] 0.6 {ratio} Low 0.9-1.6 [facility] ([place] Comment on above: Performed By: #### A DIFF, MG, LD, ANEU, GFR, CMP, CBC ####[place] [address] ALP [Catalytic activity/Vol] 89 U/L Normal 38-126 [facility] ([place] Comment on above: Performed By: #### A DIFF, MG, LD, ANEU, GFR, CMP, CBC ####[place] [address] ALT [Catalytic activity/Vol] 83 U/L High 12-55 [facility] ([place] Comment on above: Performed By: #### A DIFF, MG, LD, ANEU, GFR, CMP, CBC ####[place] [address] AST [Catalytic activity/Vol] 96 U/L High 8-34 [facility] ([place] Comment on above: Performed By: #### A DIFF, MG, LD, ANEU, GFR, CMP, CBC ####[place] [address] Bili Total 0.20 mg/dL Normal 0.20-1.20 [facility] ([place] Comment on above: Result Comment: Use of this assay is not recommended for patients undergoing treatment with eltrombopag due to the potential for falsely elevated results. Performed By: #### A DIFF, MG, LD, ANEU, GFR, CMP, CBC ####[place] [address] BUN/Creatinine Ratio 6.2 ratio Low 10.0-22.0 [facility] ([place] Comment on above: Performed By: #### A DIFF, MG, LD, ANEU, GFR, CMP, CBC ####[place] [address] Calcium [Mass/Vol] 7.5 mg/dL Low 8.7-10.4 [facility] ([place] Comment on above: Performed By: #### A DIFF, MG, LD, ANEU, GFR, CMP, CBC ####[address] [address] Chloride [Moles/Vol] 98 mmol/L Normal 98-110 [facility] ([place] Comment on above: Performed By: #### A DIFF, MG, LD, ANEU, GFR, CMP, CBC ####[place] [id number] CO2 [Moles/Vol] 27 mmol/L Normal 22-32 [facility] ([place] Comment on above: Performed By: #### A DIFF, MG, LD, ANEU, GFR, CMP, CBC ####[place] [address] Creatinine [Mass/Vol] 12.90 mg/dL High 0.60-1.40 [facility] ([place] Comment on above: Performed By: #### A DIFF, MG, LD, ANEU, GFR, CMP, CBC ####[place] [address] Electrolyte Balance 13.0 mEq/L Normal 4.0-15.0 [facility] ([place] Comment on above: Performed By: #### A DIFF, MG, LD, ANEU, GFR, CMP, CBC ####[place] [address] Globulin 4.1 G/dL High 1.5-3.8 [facility] ([place] Comment on above: Performed By: #### A DIFF, MG, LD, ANEU, GFR, CMP, CBC ####[place] [address] Glucose [Mass/Vol] 146 mg/dL High 70-110 [facility] ([place] Comment on above: Performed By: #### A DIFF, MG, LD, ANEU, GFR, CMP, CBC ####[place] [address] Potassium [Moles/Vol] 5.0 mmol/L Normal 3.5-5.0 [facility] ([place] Comment on above: Performed By: #### A DIFF, MG, LD, ANEU, GFR, CMP, CBC ####[place] [address] Sodium [Moles/Vol] 138 mmol/L Normal 136-145 [facility] ([place] Comment on above: Performed By: #### A DIFF, MG, LD, ANEU, GFR, CMP, CBC ####[place] [address] Total Protein 6.5 G/dL Normal 5.7-8.2 [facility] ([place] Comment on above: Result Comment: No te - New Reference Range in effect 20 Performed By: #### A DIFF, MG, LD, ANEU, GFR, CMP, CBC ####[place] [address] Urea nitrogen [Mass/Vol] 80.0 mg/dL High 8.0-22.0 [facility] ([place] Comment on above: Performed By: #### A DIFF, MG, LD, ANEU, GFR, CMP, CBC ####[place] [address] HHon 09-24-2022 Hematocrit (Bld) [Volume fraction] 25.2 % Low 40.0-52.0 [facility] ([place] Comment on above: Order Comment: pleas e check after HD and call for transfusion if less than 8. Performed By: #### H H ####[place] [address] Hgb 8.0 G/dL Low 13.0-17.5 [facility] ([place] Comment on above: Order Comment: pleas e check after HD and call for transfusion if less than 8. Performed By: #### H H ####[place] [address] LDHon 09-24-2022 LDH 248 U/L High 120-246 [facility] ([place] Comment on above: Performed By: #### A DIFF, MG, LD, ANEU, GFR, CMP, CBC ####[place] [address] MGon 09-24-2022 Magnesium [Mass/Vol] 2.6 mg/dL High 1.6-2.4 [facility] ([place] Comment on above: Performed By: #### A DIFF, MG, LD, ANEU, GFR, CMP, CBC ####[place] [address] US ABDOMEN LIMITEDon 023 US ABDOMEN LIMITED [...] by: Aj Dhaliwal MD Preliminary Report By: Verito Chávez Electronically signed By Aj Dhaliwal MD Dictated Date: 09/24/2022 4:01:45 PM Prelim Date: 09/24/2022 4:04:42 PM Sign Date: 09/24/2022 4:44:50 PM Ordering Provider: TONY Street [facility] ([place]) .Auto Diffon 09-23-2022 Basophil, Absolute 0.1 10 3/mcL Normal 0.0-0.3 [facility] ([place] Comment on above: Performed By: #### T ROPHS, GFR, ADIFF, ANEU, CBC, BMP ####[place] [address] Basophils/100 WBC (Bld) 1.0 % Normal 0.0-2.5 [facility] ([place] Comment on above: Performed By: #### T ROPHS, GFR, ADIFF, ANEU, CBC, BMP ####[address] [address] Eosinophil, Absolute 0.0 10 3/mcL Normal 0.0-0.7 [facility] ([place] Comment on above: Performed By: #### T ROPHS, GFR, ADIFF, ANEU, CBC, BMP ####[address] [address] Eosinophils/100 WBC (Bld) 0.3 % Normal 0.0-6.0 [facility] ([place] Comment on above: Performed By: #### T ROPHS, GFR, ADIFF, ANEU, CBC, BMP ####[address] [address] Lymphocyte, Absolute 0.7 10 3/mcL Low 0.9-4.3 [facility] ([place] Comment on above: Performed By: #### T ROPHS, GFR, ADIFF, ANEU, CBC, BMP ####[address] [address] Lymphocytes/100 WBC (Bld) 8.1 % Low 20.0-40.0 [facility] ([place] Comment on above: Performed By: #### T ROPHS, GFR, ADIFF, ANEU, CBC, BMP ####[address] [address] Monocyte, Absolute 0.8 10 3/mcL Normal 0.1-1.4 [facility] ([place] Comment on above: Performed By: #### T ROPHS, GFR, ADIFF, ANEU, CBC, BMP ####[address] [address] Monocytes/100 WBC (Bld) 9.0 % Normal 2.0-13.0 [facility] ([place] Comment on above: Performed By: #### T ROPHS, GFR, ADIFF, ANEU, CBC, BMP ####[address] [address] Neutrophils/100 WBC (Bld) 81.6 % High 50.0-75.0 [facility] ([place] Comment on above: Performed By: #### T AMAYA, GFR, ADIFF, ANEU, CBC, BMP ####[address] [address] .GFRon 09-23-2022 GFR 6 ml/min/1.73sqm Normal [facility] ([place] Comment on above: Result Comment: GFR Population [...] T AMAYA, GFR, ADIFF, ANEU, CBC, BMP ####[address] [address] GFR Non- 5 ml/min/1.73sqm Normal [facility] ([place] Comment on above: Result Comment: GFR Population [...] T AMAYA, GFR, ADIFF, ANEU, CBC, BMP ####[place] [id number] [place] [address] .NEUABSon 09-23-2022 Neutrophil, Absolute 7.2 10 3/mcL Normal 2.3-8.1 [facility] ([place] Comment on above: Performed By: #### T ROPHS, GFR, ADIFF, ANEU, CBC, BMP ####[place] [id number] [address] [place] [address] ARTERIAL BLOOD GAS ANALYSISo n 09-23-2022 ALLENS TEST Positive Normal [facility] Comment on above: Result Comment: { TI ME CALLED [id number] Performed By: #### 2 41734 #### [facility],[address] [place] [address] ARTERIAL BLOOD GAS ANALYSIS Normal [facility] Comment on above: Result Comment: KARISSA RIAL BLOOD GAS Performed By: #### 2 57336 #### [facility],[address] [place] [address] BE 3 Normal -2 - 3 [facility] Comment on above: Performed By: #### 2 45088 #### [facility],[address] [place] [address] HCO3 (Bld) [Moles/Vol] 27 mmol/L High 22 - 26 [facility] Comment on above: Performed By: #### 2 31462 #### [facility],[address] [place] [address] Heart rate 104 /min Normal [facility] Comment on above: Performed By: #### 2 95328 #### [facility],[address] [place] [address] MODALITY NC Normal [facility] Comment on above: Performed By: #### 2 44556 #### [facility],[address] [place] [address] PCO2 33 mm Hg Low 35 - 45 [facility] Comment on above: Performed By: #### 2 24665 #### [facility],[address] [place] [address] pH (Bld) 7.51 [pH] High 7.35 - 7.45 [facility] Comment on above: Performed By: #### 2 78770 #### [facility],[address] [place] [address] PO2 61 mm Hg Low 80 - 105 [facility] Comment on above: Performed By: #### 2 90574 #### [facility],[address] [place] [address] SAMPLE SITE LR Normal [facility] Comment on above: Performed By: #### 2 68556 #### [facility],[address] [place] [address] SaO2 93 Low 95 - 98 [facility] Comment on above: Result Comment: TIME RESULT CALLED _[id number] 09/23/22.0753.SONJA. { FIO2/LPM 2L Performed By: #### 2 73958 #### [facility],[address] [place] [address] TOTAL RR 40 Normal [facility] Comment on above: Performed By: #### 2 69991 #### [facility],[address] [place] [address] VENT N/A Normal [facility] Comment on above: Performed By: #### 2 04924 #### [facility],[address] [place] [address] BMPon 09-23-2022 BUN/Creatinine Ratio 6.3 ratio Low 10.0-22.0 [facility] ([place] Comment on above: Performed By: #### T AMAYA, GFR, ADIFF, ANEU, CBC, BMP ####[address] [address] Calcium [Mass/Vol] 8.3 mg/dL Low 8.7-10.4 [facility] ([place] Comment on above: Performed By: #### T AMAYA, GFR, ADIFF, ANEU, CBC, BMP ####[address] [address] Chloride [Moles/Vol] 98 mmol/L Normal 98-110 [facility] ([place] Comment on above: Performed By: #### T AMAYA, GFR, ADIFF, ANEU, CBC, BMP ####[address] [address] CO2 [Moles/Vol] 26 mmol/L Normal 22-32 [facility] ([place] Comment on above: Performed By: #### T AMAYA, GFR, ADIFF, ANEU, CBC, BMP ####[place] [address] Creatinine [Mass/Vol] 11.89 mg/dL High 0.60-1.40 [facility] ([place] Comment on above: Performed By: #### T AMAYA, GFR, ADIFF, ANEU, CBC, BMP ####[place] [address] Electrolyte Balance 14.0 mEq/L Normal 4.0-15.0 [facility] ([place] Comment on above: Performed By: #### T AMAYA, GFR, ADIFF, ANEU, CBC, BMP ####[place] [address] Glucose [Mass/Vol] 112 mg/dL High 70-110 [facility] ([place] Comment on above: Performed By: #### T AMAYA, GFR, ADIFF, ANEU, CBC, BMP ####[place] [address] Potassium [Moles/Vol] 5.0 mmol/L Normal 3.5-5.0 [facility] ([place] Comment on above: Performed By: #### T ROPLITO, GFR, ADIFF, ANEU, CBC, BMP ####[place] [address] Sodium [Moles/Vol] 138 mmol/L Normal 136-145 [facility] ([place] Comment on above: Performed By: #### T ROPHS, GFR, ADIFF, ANEU, CBC, BMP ####[place] [address] Urea nitrogen [Mass/Vol] 75.0 mg/dL High 8.0-22.0 [facility] ([place] Comment on above: Performed By: #### T ROPHS, GFR, ADIFF, ANEU, CBC, BMP ####[address] [address] CBCon 09-23-2022 Erythrocyte distribution width (RBC) [Ratio] 17.6 % High 11.5-15.5 [facility] ([place] Comment on above: Performed By: #### T ROPHS, GFR, ADIFF, ANEU, CBC, BMP ####[place] [address] Hematocrit (Bld) [Volume fraction] 26.9 % Low 40.0-52.0 [facility] ([place] Comment on above: Performed By: #### T ROPHS, GFR, ADIFF, ANEU, CBC, BMP ####[place] [address] Hgb 8.6 G/dL Low 13.0-17.5 [facility] ([place] Comment on above: Performed By: #### T ROPHS, GFR, ADIFF, ANEU, CBC, BMP ####[place] [address] MCH (RBC) [Entitic mass] 25.4 pg Low 27.0-33.0 [facility] ([place] Comment on above: Performed By: #### T ROPHS, GFR, ADIFF, ANEU, CBC, BMP ####[place] [address] MCHC 32.1 G/dL Normal 32.0-36.0 [facility] ([place] Comment on above: Performed By: #### T ROPHS, GFR, ADIFF, ANEU, CBC, BMP ####[place] [address] MCV (RBC) [Entitic vol] 79.1 fL Low 81.0-100.0 [facility] ([place] Comment on above: Performed By: #### T ROPHS, GFR, ADIFF, ANEU, CBC, BMP ####[place] [address] Platelet 387 10 3/mcL Normal 150-450 [facility] ([place] Comment on above: Performed By: #### T AMAYA, GFR, ADIFF, ANEU, CBC, BMP ####[address] [address] Platelet mean volume (Bld) [Entitic vol] 7.0 fL Normal 6.4-10.5 [facility] ([place] Comment on above: Performed By: #### T AMAYA, GFR, ADIFF, ANEU, CBC, BMP ####[address] [address] RBC 3.40 10 6/mcL Low 4.50-6.00 [facility] ([place] Comment on above: Performed By: #### T AMAYA, GFR, ADIFF, ANEU, CBC, BMP ####[address] [address] WBC 8.8 10 3/mcL Normal 4.5-10.8 [facility] ([place] Comment on above: Performed By: #### T AMAYA, GFR, ADIFF, ANEU, CBC, BMP ####[address] [address] CBC + DIFFon 09-23-2022 Baso # 0.10 x10EE3/UL Normal 0.00 - 0.10 [facility] Comment on above: Performed By: #### 2 05721 #### [facility],[address] [place] [address] Basophils/100 WBC (Bld) 0.7 % Normal 0.0 - 2.0 [facility] Comment on above: Performed By: #### 2 55889 #### [facility],[address] [place] [address] CBC + DIFF Normal [facility] Comment on above: Result Comment: CBC- COMPLETE BLOOD COUNT Performed By: #### 2 90357 #### [facility],[address] [place] [address] EO # 0.10 x10EE3/UL Normal 0.00 - 0.50 [facility] Comment on above: Performed By: #### 2 72253 #### [facility],[address] [place] [address] Eosinophils/100 WBC (Bld) 0.6 % Normal 0.0 - 7.0 [facility] Comment on above: Performed By: #### 2 16762 #### [facility],[address] [place] [address] Erythrocyte distribution width (RBC) [Ratio] 17.6 % High 12.0 - 15.6 [facility] Comment on above: Performed By: #### 2 93745 #### [facility],[address] [place] [address] Hematocrit (Bld) [Volume fraction] 28.0 % Low 40.0 - 52.0 [facility] Comment on above: Performed By: #### 2 99660 #### [place] [address] Hemoglobin (Bld) [Mass/Vol] 8.8 g/dL Low 13.0 - 17.5 [facility] Comment on above: Performed By: #### 2 48263 #### [place] [address] Lymph # 0.80 x10EE3/UL Normal 0.80 - 2.80 [facility] Comment on above: Performed By: #### 2 86277 #### [facility],[address] [place], [place] [id number] Lymphocytes/100 WBC (Bld) 8.2 % Low 20.0 - 45.0 [facility] Comment on above: Performed By: #### 2 98428 #### [place] [id number] MANUAL DIFF N/A Normal [facility] Comment on above: Performed By: #### 2 07080 #### [place] [address] MCH (RBC) [Entitic mass] 25 pg Low 27 - 33 [facility] Comment on above: Performed By: #### 2 55405 #### [place] [address] MCHC 31 X10 3 Low 32 - 36 [facility] Comment on above: Performed By: #### 2 70346 #### [facility],[address] [place] [address] MCV (RBC) [Entitic vol] 80 fL Low 81 - 98 [facility] Comment on above: Performed By: #### 2 60338 #### [place] [address] Lane # 0.80 x10EE3/UL Normal 0.20 - 1.00 [facility] Comment on above: Performed By: #### 2 43290 #### [place] [address] MONOS % 8.4 % Normal 0.0 - 10.0 [facility] Comment on above: Performed By: #### 2 30248 #### [place] [address] Morphology Jose (Bld) [Interp] N/A Normal [facility] Comment on above: Performed By: #### 2 15877 #### [place] [address] Neut # 8.00 x10EE3/UL High 1.50 - 7.10 [facility] Comment on above: Performed By: #### 2 30184 #### [place] [address] Neutrophils/100 WBC (Bld) 82.1 % High 46.0 - 76.0 [facility] Comment on above: Performed By: #### 2 40430 #### [place] [address] PLATELET 506 x10EE3/UL High 150 - 450 [facility] Comment on above: Performed By: #### 2 56175 #### [facility],[address] [place] [address] Platelet mean volume (Bld) [Entitic vol] 6.6 fL Normal 6.4 - 10.5 [facility] Comment on above: Result Comment: AUTO MATED DIFFERENTIAL Performed By: #### 2 34148 #### [facility],[address] [place] [address] RBC 3.51 x 10EE6/UL Low 4.50 - 6.00 [facility] Comment on above: Performed By: #### 2 03806 #### [facility],[address] [place] [address] WBC 9.8 x 10EE3/UL Normal 4.5 - 10.8 [facility] Comment on above: Performed By: #### 2 27415 #### [facility],[address] [place] [address] CHEST 1 VIEWon 09-23-2022 CHEST 1 VIEW [place] [address] Patient: CARLITOS SWEENEY Phone#: : [phone] Age: 46 Gender: M Pt. Type: ER Account: [id number] Location: [facility] Ordering: JULIAN MCLEAN Exam Date: 09/23/2022/7:15 Family Phys: TOM CONTE Charge Code: 208957 Physician: [place] Order #: [id number] Dose#: PROCEDURE: X-RAY CHEST 1 VIEW COMPARISON: [facility], , CHEST 2 VIEWS, 02/11/2022, 0:16. INDICATIONS: Shortness [...] Boateng MD on 09/23/2022 at 8:48 Normal [facility] CMP with eGFRon 09-23-2022 AGE 46 years Normal [facility] Comment on above: Performed By: #### 2 80255 #### [facility],[address] [place] [address] Albumin [Mass/Vol] 3.2 g/dL Low 3.4 - 5.0 [facility] Comment on above: Performed By: #### 2 41379 #### [facility],[address] [place] [address] Albumin/Globulin [Mass ratio] 0.6 {ratio} Low 0.9 - 1.6 [facility] Comment on above: Performed By: #### 2 59974 #### [facility],[address] [place] [address] ALK PHOS 121 U/L High 46 - 116 [facility] Comment on above: Performed By: #### 2 43140 #### [facility],[address] [place] [address] ALT [Catalytic activity/Vol] 112 U/L High 16 - 63 [facility] Comment on above: Performed By: #### 2 01319 #### [facility],[address] [place] [address] 94827 Anion gap [Moles/Vol] 21 mmol/L High 10 - 20 [facility] Comment on above: Performed By: #### 2 08417 #### [facility],[address] [place] [address] 20269 AST [Catalytic activity/Vol] 203 U/L High 15 - 37 [facility] Comment on above: Performed By: #### 2 51954 #### [facility],[address] [place] [address] 82581 B/C RATIO 6 ratio Normal 0 - 30 [facility] Comment on above: Performed By: #### 2 98644 #### [facility],[address] [place] [address] 39219 Bilirubin [Mass/Vol] 0.6 mg/dL Normal 0.2 - 1.0 [facility] Comment on above: Performed By: #### 2 06427 #### [facility],[address] [place] [address] 30327 Calcium [Mass/Vol] 8.8 mg/dL Normal 8.5 - 10.1 [facility] Comment on above: Performed By: #### 2 78089 #### [facility],[address] [place] [address] 32404 Chloride [Moles/Vol] 95 mmol/L Low 98 - 107 [facility] Comment on above: Performed By: #### 2 39115 #### [facility],[address] [place] [address] 64360 CMP with eGFR Normal [facility] Comment on above: Result Comment: COMP REHENSIVE METABOLIC PANEL Performed By: #### 2 35920 #### [facility],[address] [place] [address] 24833 CO2 [Moles/Vol] 25.8 mmol/L Normal 21.0 - 32.0 [facility] Comment on above: Performed By: #### 2 26563 #### [facility],[address] [place] [address] Creatinine [Mass/Vol] 11.58 mg/dL High 0.70 - 1.30 J l [facility] Comment on above: Performed By: #### 2 01120 #### [facility],[address] [place] [address] eGFR 5 ML/MINUTE Low 60 - 999 [facility] Comment on above: Performed By: #### 2 97948 #### [facility],[address] [place] [address] eGFR(AA) 6 ML/MINUTE Low 60 - 999 [facility] Comment on above: Result Comment: ACCO RDING TO THE NATIONAL KIDNEY DISEASE EDUCATION PROGRAM(NKDE), A NORMAL eGFR IS A VALUE GREATER THAN OR EQUAL TO 60 ML/MIN/1.73 SQ METERS. CHRONIC KIDNEY DISEASE: <60mL/MIN/1.73 SQ METERS KIDNEY FAILURE: <15mL/MIN/1.73 SQ METERS THIS TEST SHOULD ONLY BE USED FOR PATIENTS 18 YEARS OF AGE AND OLDER. Performed By: #### 2 76319 #### [place] [address] Globulin (S) [Mass/Vol] 5.8 g/dL High 1.5 - 3.8 [facility] Comment on above: Performed By: #### 2 62243 #### [place] [address] Glucose [Mass/Vol] 103 mg/dL Normal 74 - 106 [facility] Comment on above: Performed By: #### 2 85879 #### [place] [id number] Potassium [Moles/Vol] 6.1 mmol/L Critically high 3.5 - 5.1 [facility] Comment on above: Result Comment: { CA LLED TO SHIELA/Bethany/MELLYO { READ BACK BY SHIELA/JAILYN Performed By: #### 2 28703 #### [facility],[address] [place] [address] 69941 Protein [Mass/Vol] 9.0 g/dL High 6.4 - 8.2 [facility] Comment on above: Performed By: #### 2 51037 #### [facility],[address] [place] [address] 47913 Sodium [Moles/Vol] 136 mmol/L Normal 136 - 145 [facility] Comment on above: Performed By: #### 2 67211 #### [facility],[address] [place] [address] 10050 Urea nitrogen [Mass/Vol] 65 mg/dL High 7 - 18 [facility] Comment on above: Performed By: #### 2 61362 #### [facility],[address] [place] [address] 71111 CORONAVIRUS (SARS) ANTIGEN T ESTon 09-23-2022 EXTERNAL QC DONE? YES Normal [facility] Comment on above: Performed By: #### 2 58349 #### [facility],[address] [place] [address] 39522 INTERNAL CONTROL PASS Normal [facility] Comment on above: Performed By: #### 2 63338 #### [facility],[address] [place] [address] 68590 SARS ANTIGEN Negative Normal NORMAL: NEGATIVE [facility] Comment on above: Performed By: #### 2 25529 #### [facility],[address] [place] [address] 63573 SEND TO ? YES Normal [facility] Comment on above: Result Comment: SARS -CoV-2 THIS TEST IS BEING USED UNDER THE FDA EUA PROCEDURE. THIS ASSAY HAS BEEN VALIDATED AT [facility] FOR USE WITH NASAL AND NASOPHARYNGEAL SWAB [...] PUBLIC HEALTH AUTHORITIES. Performed By: #### 2 97610 #### [place] [id number] CULTURE BLOOD [YANA]on Microscopic examination of blood, culture CULTURE BLOOD [YANA] _BLOOD CULTURE_ [facility] RE[facility] AND ATTACHMENTS FOR SCANNED REPORT 09/30/22.1214.DNP.COMPLETE Normal [facility] Comment on above: Performed By: #### 2 07494 #### [place] [id number] Performed By: #### 2 79201 #### [address] [address] LACTATEon 09-23-2022 Lactate [Moles/Vol] 1.9 mmol/L Normal 0.4 - 2.0 [facility] Comment on above: Performed By: #### 2 89214 #### [facility],[address] [place] [address] 89913 NT-proBNPon 09-23-2022 NT PRO-BNP >41882 High 0 - 125 [facility] Comment on above: Performed By: #### 2 70585 #### [facility],[address] [place] [address] 79811 TROPHSon 09-23-2022 Troponin I High Sensitivity 33.71 ng/L Normal 0.00-54.00 [facility] ([place]) Comment on above: Result Comment: If t he High Sensitive Troponin result is below the 99th percentile value (<45 ng/L) at the first blood draw, at least two additional blood samples should be drawn before results are interpreted as negative for AMI. Performed By: #### T AMAYA ####[address] [address] Troponin I High Sensitivity 42.23 ng/L Normal 0.00-54.00 [facility] ([place] Comment on above: Result Comment: If t he High Sensitive Troponin result is below the 99th percentile value (<45 ng/L) at the first blood draw, at least two additional blood samples should be drawn before results are interpreted as negative for AMI. Performed By: #### T AMAYA, GFR, ADIFF, ANEU, CBC, BMP ####[address] [address] TROPONIN I, HIGH SENSITIVITY on 09-23-2022 HS TROPONIN 28.6 pg/mL Normal 0.0 - 76.2 [facility] Comment on above: Performed By: #### 2 78550 #### [facility],[address] [place] [address] 81602 XR CHEST 1 VIEWon 09-23-2022 XR CHEST [...] Date: 09/23/2022 3:38:23 PM Ordering Provider: EBER SHORT [facility] ([place] XR Chest PA and Lateralon IMPRESSION: Stable abnormal chest. Significant opacification of the right hemithorax. Property Loss Insurance Claim Adjuster: HENRY Transcribe Date/Time: Sep 19 2022 4:31P Dictated by : ISIDRO HUGO MD This examination was interpreted and the report reviewed and electronically signed by: ISIDRO HUGO MD on Sep 19 2022 4:33PM [facility] DIVISION OF RADIOLOGY * * *Final Report* [...] soft tissues: Unremarkable. DIVISION OF RADIOLOGY Provider, [facility] - 09/19/2022 * * *Final Report* * [...] chest. Significant opacification of the right hemithorax. Property Loss Insurance Claim Adjuster: PSCB Transcribe Date/Time: Sep 19 2022 4:31P Dictated by : ISIDRO HUGO MD This examination was interpreted and the report reviewed and electronically signed by: ISIDRO HUGO MD on Sep 19 2022 4:33PM EST [facility] Radiology Study observation (narrative) [facility] XR Chest PA and LateralOrder ed By: Ccf Provider on 09-19-2022 [facility] CNPNon [facility]20[facility] -- CARLITOS SWEENEY ([id number]) 1975 M NFR Date Time Provider Department 09/17/22 VALERIE PUENTE [facility] During your visit today, we recorded the [...] Assessed Reason for Visit: Appointment [186] Cmt: [facility] missed appt letter Prescriptions as of 09/17/2022 [...] major depressive *10/23/2016 Noncompliance with renal dialysis ([facility]) [Z91.15]10/23/2016 Noncompliance with treatment [Z91.199] 10/23/2016 Implantable cardioverter-defibrillator (ICD) in*02/12/2017 End stage renal failure on dialysis ([facility]) [N18.*02/12/2017 Hypertensive heart disease with congestive hear*02/12/2017 [...] Diarrhea [R19.7] 10/11/2021 Encounter for kidney dialysis [[id number]] 07/01/2022 History of implantable cardiac defibrillator (I*02/03/2015 [...] Encounter Status:Closed by VALERIE VEGA on 09/17/22 [facility] 09-12-2022 [facility] Telephone ([facility]) -- CARLITOS SWEENEY ([id number]) 1975 M NFR Date Time Provider Department 09/12/22 MYAH BOURGEOIS [facility] During your visit today, we recorded the following information about you: Myah Bourgeois RN 09/12/2022 2:18 PM Signed Call placed to patient for scheduled telehealth appt. Pt did not answer. Voicemail left for pt with [facility] phone number to reschedule. Allergies As of [...] Diarrhea [R19.7] 10/11/2021 Encounter for kidney dialysis [[id number]] 07/01/2022 History of implantable cardiac defibrillator (I*02/03/2015 [...] Encounter Status:Closed by MYAH BOURGEOIS on 09/12/22 [facility] [place] 09-03-2022 CNPN Telephone ([facility]) -- CARLITOS SWEENEY ([id number]) 1975 M NFR Date Time Provider Department 09/03/22 VALERIE PUENTE [facility] During your visit today, we recorded the following information about you: Valerie Puente Sec 09/03/2022 4:04 PM Signed The patient was discharged from [facility] 09-02-22 with an order to schedule with [...] - Fully Assessed Reason for Visit: Orders [361] Cmt: [facility] order contact/appt Prescriptions as of 09/03/2022 - [...] Diarrhea [R19.7] 10/11/2021 Encounter for kidney dialysis [[id number]] 07/01/2022 History of implantable cardiac defibrillator (I*02/03/2015 [...] Encounter Status:Closed by VALERIE VEGA on 09/03/22 [facility] CNDSon 09-02-2022 CNDS HNO ID: [id number] Author: Fernando Reddy DO Service: Hospital Medicine [...] When: In 1 week Manjit Field MD [phone] [address] [place] [address] PCP Requested Referral Follow-Up Appointment When: In 1 week Tom Conte MD [phone] [address] [place] [address] PCP Requested Referral Additional Provider to Provider Information: Treatment Team: Attending Provider: Fernando Reddy DO Consulting: Mandeep Figueroa MD Primary Service: SANDRA ALEXANDRA Consulting: Carmela Gabriel MD Consulting: Dania Oconnor MD FOLLOW-UP APPOINTMENTS ALREADY SCHEDULED WITH A [facility] PROVIDER: Future Appointments Date Time Provider Department Center 09/16/2022 2:15 PM Manjit Field MD [facility] 09/26/2022 2:00 PM Lyudmila An APRN.[employer] [facility] [place] ALLERGIES Allergen Reactions Iodinated Contrast * [...] (Oral) Resp 16 Ht 180.3 cm (5' 11") Wt 69 kg (152 lb 1.9 oz) SpO2 98% BMI 21.22 kg/m? GEN: AANDox3, NAD CARDIO: s1 s2, RRR, no rubs or gallop (more content not included)... Normal [facility] CONSULTon 09-02-2022 CONSULT HNO ID: [id number] Author: Chen Avalos MD Service: Pulmonary Disease [...] year old male, Ht 180.3 cm (5' 11") BMI 21.22 kg/m2, with a history of [...] 97% 98% 98% Weight: Height: PHYSICAL EXAM: FACILITIES MANAGEMENT EXECUTIVE: Alert and oriented Eyes: PER Neck: Unremarkable; [...] Avalos MD Date: 09/02/2022 Time: 2:21 PM [facility] PULMONARY MEDICINE CONSULT NOTE SERVICE [...] ICD placement, current smoker. Presented to the [facility] ED on 09/01/2022 evaluation of chest pain at his ICD site. Pain had been worsening over the last several days. ED work-up significant for Cr 9.27, right pleural effusion on chest x-ray, patient was admitted to [facility] for further management. When seen today patient [...] 08/18/2015 S (more content not included)... Normal [facility] NT-proBNP [facility] 09-02 Natriuretic peptide.B prohormone N-Terminal [Mass/Vol] >09374 High <125 [facility] Comment on above: Order Comment: Speci men Type: BLOOD SPECIMENOrdering Facility: [facility] Address: [address] [place] [id number] Performed By: #### 2 4362-6, 69317-4 ####[facility] LABORATORYCLIA [id number] [address] [place] Renal function 2000 panelon 09-02-2022 Albumin [Mass/Vol] 3.4 g/dL Low 3.9-4.9 [facility] Comment on above: Order Comment: Speci men Type: BLOOD SPECIMENOrdering Facility: [facility] Address: [address] [place] [address] Performed By: #### 2 4362-6, 03446-5 ####[facility] LABORATORYCLIA [id number] [address] [place] Anion gap [Moles/Vol] 14 mmol/L Normal 9-18 [facility] Comment on above: Order Comment: Speci men Type: BLOOD SPECIMENOrdering Facility: [facility] Address: [address] [place] [address] Performed By: #### 2 4362-6, 55181-6 ####[facility] LABORATORYCLIA [id number] [address] [place] Calcium [Mass/Vol] 8.6 mg/dL Normal 8.5-10.2 [facility] Comment on above: Order Comment: Speci men Type: BLOOD SPECIMENOrdering Facility: [facility] Address: [address] [place] [address] Performed By: #### 2 4362-6, 09883-0 ####[facility] LABORATORYCLIA [id number] [place] [address] [place] Chloride [Moles/Vol] 93 mmol/L Low 97-105 [facility] Comment on above: Order Comment: Speci men Type: BLOOD SPECIMENOrdering Facility: [facility] Address: [address] [place] [address] Performed By: #### 2 4362-6, 61655-9 ####[facility] LABORATORYCLIA [id number] [address] [place] CO2 [Moles/Vol] 25 mmol/L Normal 22-30 [facility] Comment on above: Order Comment: Speci men Type: BLOOD SPECIMENOrdering Facility: [facility] Address: [facility] [place] [address] Performed By: #### 2 4362-6, 78920-6 ####[facility] [id number] [address] [place] OF [facility] Creatinine [Mass/Vol] 9.27 mg/dL High 0.73-1.22 [facility] Comment on above: Order Comment: Speci men Type: BLOOD SPECIMENOrdering Facility: [facility] Address: [place] [address] Performed By: #### 2 4362-6, 39864-0 ####[facility] [id number] [place] [id number] [facility] ESTIMATED GLOMERULAR FILTRATION RATE 6 mL/min/1.73m??? Low >=60 [facility] Comment on above: Order Comment: Speci men Type: BLOOD SPECIMENOrdering Facility: [facility] Address: [address] [place] [address] Result Comment: Deanna mated Glomerular Filtration Rate [...] actual GFR. Performed By: #### 2 4362-6, 99729-8 ####[facility] LABORATORYCLIA [id number] [address] [place] Glucose [Mass/Vol] 101 mg/dL High 74-99 [facility] Comment on above: Order Comment: Speci men Type: BLOOD SPECIMENOrdering Facility: [facility] Address: [address] [place] [address] Result Comment: The [place] [employer] Association (ADA) provides guidance for cutoff [...] Standards of Medical Care in Diabetes 2016, [place] [employer]. Diabetes Care. 2016.39(Suppl 1). Performed By: #### 2 4362-6, 89147-7 ####[facility] LABORATORYCLIA [id number] [place] [address] [place] Phosphate [Mass/Vol] 4.8 mg/dL Normal 2.7-4.8 [facility] Comment on above: Order Comment: Milad chapman Type: BLOOD SPECIMENOrdering Facility: [facility] Address: [address] [place] [address] Performed By: #### 2 4362-6, 17459-6 ####[facility] LABORATORYCLIA [id number] [place] [address] [place] Potassium [Moles/Vol] 5.3 mmol/L High 3.7-5.1 [facility] Comment on above: Order Comment: Milad chapman Type: BLOOD SPECIMENOrdering Facility: [facility] Address: [address] [place] [address] Performed By: #### 2 4362-6, 01821-1 ####[facility] LABORATORYCLIA [id number] [place] [address] [place] Sodium [Moles/Vol] 132 mmol/L Low 136-144 [facility] Comment on above: Order Comment: Savii adela Type: BLOOD SPECIMENOrdering Facility: [facility] Address: [address] [place] [address] Performed By: #### 2 4362-6, 49811-4 ####[facility] LABORATORYCLIA [id number] [place] [address] [place] Urea nitrogen [Mass/Vol] 53 mg/dL High 9-24 [facility] Comment on above: Order Comment: Savii adela Type: BLOOD SPECIMENOrdering Facility: [facility] Address: [address] [place], [place] [address] [address] Performed By: #### 2 4362-6, 70163-6 ####[facility] LABORATORYCLIA [id number] [place] [address] [facility] .Auto Diffon 09-01-2022 Basophil, Absolute 0.1 10 3/mcL Normal 0.0-0.2 [facility] ([place]) Comment on above: Performed By: #### R BCP #### [address] [address] Basophils/100 WBC (Bld) 1.2 % Normal 0.0-2.5 [facility] ([place]) Comment on above: Performed By: #### R BCP #### [address] [address] Eosinophil, Absolute 0.2 10 3/mcL Normal 0.0-0.4 [facility] ([place]) Comment on above: Performed By: #### R BCP #### [address] [address] Eosinophils/100 WBC (Bld) 3.4 % Normal 0.0-7.0 [facility] ([place]) Comment on above: Performed By: #### R BCP #### [address] [address] Lymphocyte, Absolute 0.8 10 3/mcL Normal 0.8-3.9 [facility] ([place]) Comment on above: Performed By: #### R BCP #### [address] [address] Lymphocytes/100 WBC (Bld) 12.1 % Normal 10.0-50.0 [facility] ([place]) Comment on above: Performed By: #### R BCP #### [address] [address] Monocyte, Absolute 0.9 10 3/mcL Normal 0.2-1.0 [facility] ([place]) Comment on above: Performed By: #### R BCP #### [address] [address] Monocytes/100 WBC (Bld) 12.9 % Normal 1.7-13.0 [facility] ([place] Comment on above: Performed By: #### R BCP #### [address] [address] Neutrophils/100 WBC (Bld) 70.4 % Normal 37.0-80.0 [facility] ([place] Comment on above: Performed By: #### R BCP #### [address] [address] .GFRon 09-01-2022 GFR 9 ml/min/1.73sqm Normal [facility] ([place] Comment on above: Result Comment: GFR Population [...] meters Performed By: #### R BCP #### [address] [address] GFR Non- 8 ml/min/1.73sqm Normal [facility] ([place]) Comment on above: Result Comment: GFR Population [...] meters Performed By: #### R BCP #### [address] [address] .MDWon 09-01-2022 Monocyte Distribution Width 17.04 Normal 0.00-20.00 [facility] ([place]) Comment on above: Result Comment: For ED adult patients suspected of sepsis, MDW<=20.0 does not rule out sepsis or risk of sepsis Performed By: #### R BCP #### [place] [address] .NEUABSon 09-01-2022 Neutrophil, Absolute 4.7 10 3/mcL Normal 2.9-6.2 [facility] ([place]) Comment on above: Performed By: #### R BCP #### [place] [address] ALLIED HEALTHon 09-01-2022 ALLIED HEALTH HNO ID: [id number] Author: Jayne Valdes RT(R) Service: Radiology Author Type: Seasonal Package Handler Type: Allied Health Filed: 09/01/2022 10:28 AM [...] RT(R) September 01, 2022 10:28 AM Normal [facility] BMPon 09-01-2022 BUN/Creatinine Ratio 5 ratio Low 7-27 [facility] ([place]) Comment on above: Performed By: #### R BCP #### [place] [address] Calcium [Mass/Vol] 8.1 mg/dL Low 8.4-10.2 [facility] ([place] Comment on above: Performed By: #### R BCP #### [address] [address] Chloride [Moles/Vol] 96 mmol/L Low 98-107 [facility] ([place]) Comment on above: Performed By: #### R BCP #### [address] [address] CO2 [Moles/Vol] 32 mmol/L High 22-29 [facility] ([place] Comment on above: Performed By: #### R BCP #### [place] [id number] Creatinine [Mass/Vol] 7.52 mg/dL High 0.70-1.30 [facility] ([place]) Comment on above: Performed By: #### R BCP #### [place] [address] Electrolyte Balance 7.0 mEq/L Normal 4.0-15.0 [facility] ([place]) Comment on above: Performed By: #### R BCP #### [place] [id number] Glucose [Mass/Vol] 102 mg/dL Normal 70-105 [facility] ([place] Comment on above: Performed By: #### R BCP #### [place] [address] Potassium [Moles/Vol] 4.4 mmol/L Normal 3.5-5.1 [facility] ([place]) Comment on above: Performed By: #### R BCP #### [place] [id number] Sodium [Moles/Vol] 135 mmol/L Low 136-145 [facility] ([place] Comment on above: Performed By: #### R BCP #### [address] [address] Urea nitrogen [Mass/Vol] 36 mg/dL High 7-18 [facility] ([place] Comment on above: Performed By: #### R BCP #### [place] [id number] CBCon 03-12-2023 Erythrocyte distribution width (RBC) [Ratio] 16.9 % High 11.5-14.5 [facility] ([place] Comment on above: Performed By: #### R BCP #### [place] [address] Hematocrit (Bld) [Volume fraction] 23.3 % Low 42.0-52.0 [facility] ([place] Comment on above: Performed By: #### R BCP #### [place] [address] Hgb 7.4 G/dL Low 14.0-18.0 [facility] ([place] Comment on above: Performed By: #### R BCP #### [place] [address] MCH (RBC) [Entitic mass] 25.7 pg Low 27.0-31.2 [facility] ([place] Comment on above: Performed By: #### R BCP #### [place] [address] MCHC 31.8 G/dL Normal 31.8-35.4 [facility] ([place] Comment on above: Performed By: #### R BCP #### [place] [address] MCV (RBC) [Entitic vol] 80.6 fL Normal 80.0-94.0 [facility] ([place] Comment on above: Performed By: #### R BCP #### [place] [address] Platelet 377 10 3/mcL Normal 130-400 [facility] ([place] Comment on above: Performed By: #### R BCP #### [place] [address] Platelet mean volume (Bld) [Entitic vol] 6.6 fL Low 7.4-10.4 [facility] ([place] Comment on above: Performed By: #### R BCP #### [place] [address] RBC 2.89 10 6/mcL Low 4.04-6.13 [facility] ([place] Comment on above: Performed By: #### R BCP #### [facility] [address] [place] [address] WBC 6.7 10 3/mcL Normal 4.6-10.8 [facility] ([place] Comment on above: Performed By: #### R BCP #### [facility] [address] [place] [address] CONSULTon 09-01-2022 CONSULT HNO ID: [id number] Author: Mandeep Figueroa MD Service: Nephrology Author Type: Physician Type: Consults Filed: 09/01/2022 4:58 PM Note Text: [facility] [place] [address] [place], [place] [id number] Consult Note Patient's Name: Carlitos Sweeney 3:38 PM 09/01/2022 ATTENDING/ADMITTING PHYSICIAN:Rhianna Wilkins MD Reason for consultation: ESRD. History of Present Ilness: Carlitos Sweeney is a 46-year-old man with past history of ESRD status post failed kidney transplant, COPD, hypertension and secondary hyperparathyroidism. The patient initially presented to [place] with pain around the ICD insertion site. [...] ([facility]) 08/18/2015 Seeing cardio in [place] (has pace maker/defibulator) Chronic kidney disease, stage 5 ([facility]) Dialysis M,W,F @ [facility] Chronic obstructive pulmonary disease ([facility]) [...] substance agreement and Tox [facility]. If cancels or No Shows the Belsomra will be stopped. Smoker 08/18/2015 Started at age 14 up to 1-1.5 PPD, currently at 1/2 PPD (10/2016), as of 05/2019 less than 1/2 a PPD PAST SURGICAL HISTORY Procedure Laterality Date 2D ECHO (EXEP) 11/02/2020 EF=50%, mod Joshi dysf CHOLECYSTECTOMY INSJ TUNNELED CVC W/O SUBQ PORT/LIQUIFIED NATURAL GAS TECHNICIAN AGE 3 YR/> 01/21/2014 PAST SURGICAL HISTORY [...] (Oral) Resp 18 Ht 180.3 cm (5' 11") Wt 69 kg (152 lb 1.9 oz) SpO2 96% BMI 21.22 kg/m? General: AAO x 3, speaking in full sentences, no access (more content not included)... [facility] [id number] 09-01-2022 SARS-CoV-2 (COVID-19) RNA JAMILAH+probe Ql (Unsp spec) Negative Normal Negative [facility] ([place] Comment on above: Performed By: #### C OVD19 ####[address] [place], [place] [address] SARS-CoV-2 (COVID-19) RNA JAMILAH+probe Ql (Unsp spec) Normal [facility] ([place] Comment on above: Result Comment: Nega tive [...] Int Performed By: #### C OVD19 ####[address] [place], [place] [address] CT THORAX W/O CONTRASTon CT THORAX W/O [...] Patient reported thoracentesis 6 weeks ago at [facility]. FINDINGS: Evaluation of the lungs demonstrates dense [...] 08/31/2022 11:47:27 PM Ordering Provider: RAMIRO Street [facility] ([place]) HISTORY PHYSICALon HISTORY PHYSICAL HNO ID: [id number] Author: Rhianna Wilkins MD Service: Hospital Medicine Author Type: Physician Type: HANDP Filed: 09/01/2022 2:43 PM Note Text: DEPARTMENT OF INTERNAL MEDICINE HISTORY AND PHYSICAL EXAM SERVICE DATE: 09/01/2022 SERVICE TIME: 9a Primary Care Physician: Tom Cotne MD Subjective CHIEF COMPLAINT: Chest Pain HPI: This is a 46 year old male who presents with chest pain around his ICD area that brought him to the [facility] ER. Patient noticed that he had been [...] heart failure) (HCC) 08/18/2015 Seeing cardio in [place] (has pace maker/defibulator) Chronic kidney disease, stage 5 ([facility]) Dialysis M,W,F [facility] Chronic obstructive pulmonary disease ([facility]) [...] dysf CHOLECYSTECTOMY INSJ TUNNELED CVC W/O SUBQ PORT/LIQUIFIED NATURAL GAS TECHNICIAN AGE 3 YR/> 01/21/2014 PAST SURGICAL HISTORY [...] (Src) 98.2 (Oral) Resp 18 Ht 5' 11" (1.80m) Wt 152 lb 1.9 oz (69.0kg) [...] w MEALS (more content not included)... [facility] LABORATORYOrdered By: SYSTEM SYSTEM on 09-01-2022 [...] Routine cultures are held for 5 days. [facility] Work Phone: [facility] 09-01-2022 Troponin I High Sensitivity 35.9 ng/L Normal 0.0-76.2 [facility] ([place] Comment on above: Performed By: #### T [facility] #### [facility] [address] [place], [place] [address] Troponin I High Sensitivity 33.3 ng/L Normal 0.0-76.2 [facility] ([place] Comment on above: Performed By: #### R [facility] #### [facility] [address] [place] [address] XR CHEST 1V FRONTALon 2022 XR CHEST [...] is suboptimally evaluated due to the effusion. Property Loss Insurance Claim Adjuster: PSCB Transcribe Date/Time: Sep 01 2022 1:42P Dictated by : TAL OSPINA MD This examination was interpreted and the report reviewed and electronically signed by: TAL OSPINA MD on Sep 01 2022 1:43PM EST [id number] [facility] XR CHEST 2 VIEWSon 3 XR [...] Jean Carlos Turner MD Preliminary Report By: Verito Chávez Electronically signed By Jean Carlos Turner MD Dictated Date: 08/31/2022 10:32:02 PM Prelim Date: 08/31/2022 10:36:14 PM Sign Date: 08/31/2022 10:38:31 PM Ordering Provider: RAMIRO Street [facility] ([place]) LABORATORYOrdered By: Diane Benjamin on 08-31-2022 Basophil, [...] ADM SS XR HAND MINIMUM 3 VIEWS EDDIE Roberts 08-20-2022 XR HAND MINIMUM 3 VIEWS RIGHT [...] the resident's findings and interpretation. Interpreted by: Verito Long Preliminary Report By: Napoleon Turcios Electronically signed By Verito Long Dictated Date: 08/20/2022 4:59:04 PM Prelim Date: 08/20/2022 5:03:40 PM Sign Date: 08/20/2022 5:20:31 PM Ordering Provider: RAMIRO MARTIN [facility] ([place]) XR FOOT MINIMUM 3 VIEWS [facility] 08-15-2022 XR FOOT MINIMUM 3 VIEWS [...] 08/15/2022 7:58:22 PM Ordering Provider: JEFF SOUZA [facility] ([place]) BRIEF OP NOTon 08-08-2022 BRIEF OP NOT HNO ID: [id number] Author: Fernando Fitzpatrick DO Service: Interventional Radiology Author Type: Physician Type: Brief Op Note Filed: 08/08/2022 8:52 AM Note Text: BRIEF OPERATIVE / PROCEDURE NOTE LOG ID: [id number] SURGERY/PROCEDURE DATE: 08/08/2022 INCISION/PROCEDURE START TIME: 8:27 AM INCISION CLOSE/PROCEDURE END TIME: 8:41 AM SURGEON(S)/PROCEDURALIST(S ) AND SYSTEMS TESTING LABORATORY TECHNICIAN(S): Surgeon(s) and Role: * Fernando Fitzpatrick DO - Primary No Additional Staff [...] DATE: August 08, 2022 TIME: 8:49 AM [facility] IR REM TUNNEL INTRAPERI CATH on 08-08-2022 IR REM TUNNEL INTRAPERI CATH * * *Final Report* * * DATE OF EXAM: Aug 08 2022 8:46AM [facility] 0968 - IR REM TUNNEL INTRAPERI CATH / [...] performed by the: attending radiologist, without an human resources office assistant. The attending radiologist performed the following [...] and agree with the report as written. Property Loss Insurance Claim Adjuster: HENRY Transcribe Date/Time: Aug 12 2022 1:46P Dictated by : FERNANDO FITZPATRICK DO This examination was interpreted and the report reviewed and electronically signed by: FERNANDO FITZPATRICK DO on Aug 12 2022 1:50PM EST [id number] [facility] NURSING PROGon 08-08-2022 NURSING PROG HNO ID: [id number] Author: Harini Araujo RN Service: Interventional Radiology Author Type: Registered Nurse Type: Nursing Progress Note Filed: 08/08/2022 8:26 AM Note Text: Aspira connected to wall suction per Dr Fitzpatrick. 100 cc fluid drained. Patient tolerated well. [facility] PT EDon 08-08-2022 PT ED HNO ID: [id number] Author: Harini Araujo RN Service: Interventional Radiology Author Type: Registered Nurse Type: Patient Education Filed: 08/08/2022 8:17 AM Note Text: At home instructions reviewed with patient and understanding verbalized. Written copy provided for discharge. [facility] Absolute lymphocyte countOrd ered By: Dr. Ha on 07-30-2022 Lymphocytes Auto (Unsp spec) [#/Vol] 0.70 10*3/uL 0.83-4.51 [facility] [place] [facility] Basophil percentageOrdered B y: Dr. Ha on 07-30-2022 Basophils/100 WBC (Bld) 0.4 % 0-1 [facility] [place] [facility] Bilirubin [Mass/Vol] 0.50 mg/dL 0.20-1.00 [facility] Comment on above: For patients on eltr ombopag therapy, use of Dimension Eagle TBIL is not recommended. Chloride [Moles/Vol] 93 mmol/L 98-107 [facility] Eosinophils/100 WBC (Bld) 0.6 % 0-5 [facility] [place] [facility] Glucose [Mass/Vol] 99 mg/dL 74-106 [facility] Neutrophils (Bld) [#/Vol] 6.2 10*3/uL 2.0-7.7 [facility] [place] [facility] Neutrophils/100 WBC (Bld) 77.1 % 47-70 [facility] [place] [facility] Potassium [Moles/Vol] 4.8 mmol/L 3.5-5.1 [facility] Protein [Mass/Vol] 7.6 g/dL 6.4-8.2 [facility] Sodium [Moles/Vol] 132 mmol/L 136-145 [facility] WBC (Bld) [#/Vol] 8.1 10*3/uL 4.4-11.0 [facility] Blood erythrocytes count (nu mber/volume)Ordered By: Dr. Ha on 07-30-2022 RBC (Bld) [#/Vol] 3.21 10*6/uL 4.6-6.2 [facility] Blood hemoglobin measurement (mass/volume)Ordered By: Dr. Ha on 07-30-2022 Hemoglobin (Bld) [Mass/Vol] 8.5 g/dL 13.0-16.5 [facility] [place] [facility] Blood lymphocytes/100 leukoc ytesOrdered By: Dr. Ha on 07-30-2022 Lymphocytes/100 WBC (Bld) 8.6 % 19-41 [facility] [place] [facility] Blood monocytes/100 leukocyt esOrdered By: Dr. Ha on 07-30-2022 Monocytes/100 WBC (Bld) 12.8 % 0-10 [facility] [place] [facility] Blood platelet mean volumeOr dered By: Dr. Ha on 07-30-2022 Platelet mean volume (Bld) [Entitic vol] 8.5 fL 6.2-12.0 [facility] [place] [facility] Determination of erythrocyte mean corpuscular volume (MCV)Ordered By: Dr. Ha on 07-30-2022 MCV (RBC) [Entitic vol] 84.4 fL 80-94 [facility] [place] [facility] Hematocrit Auto (Bld) [Volum e fraction]Ordered By: Dr. Ha on 07-30-2022 Hematocrit (Bld) [Volume fraction] 27.1 % 40-54 [facility] [place] [facility] Influenza virus A and B and SARS-CoV-2 (COVID-19) Ag panel - Upper respiratory specimOrdered By: Dr. Ha on 07-30-2022 SARS-CoV-2 (COVID-19) RNA JAMILAH+probe Ql (Resp) [facility] [place] [facility] Laboratory - Chemistry and C hemistry - challengeOrdered By: Dr. Ha on 07-30-2022 ALP [Catalytic activity/Vol] 95 U/L 45-117 [facility] [place] [facility] ALT [Catalytic activity/Vol] 20 U/L 16-61 [facility] [place] [facility] CO2 [Moles/Vol] 29.0 mmol/L 21.0-32.0 [facility] [place] [facility] Globulin (S) [Mass/Vol] 5.1 g/dL 2.2-4.2 [facility] [place] [facility] Urea nitrogen/Creatinine [Mass ratio] 5.3 mg/mg 10-20 [facility] [place] [facility] Laboratory - Hematology and Cell countsOrdered By: Dr. Ha on 07-30-2022 Erythrocyte distribution width (RBC) [Entitic vol] 46.5 fL 35.1-43.9 [facility] [place] [facility] Erythrocyte distribution width (RBC) [Ratio] 15.1 % 11.6-14.6 [facility] [place] [facility] Immature granulocytes/100 WBC (Bld) 0.500 % 0.0-0.9 [facility] [place] [facility] Comment on above: IG% - Immature Granu locytes (promyelocytes, myelocytes and metamyelocytes) > 1% indicates that a LEFT SHIFT is Present. MCH (RBC) [Entitic mass] 26.5 pg 27.0-32.0 [facility] [place] [facility] Nucleated RBC/100 WBC (Bld) [Ratio] 0 % 0-5 [facility] [place] [facility] MCHC Auto (RBC) [Mass/Vol]Or dered By: Dr. Ha on 07-30-2022 MCHC (RBC) [Mass/Vol] 31.4 g/dL 32-36 [facility] No Panel InformationOrdered By: Dr. Ha on 07-30-2022 Estimated Creatinine Clearance Calc 8.56 ml/min [facility] [place] [facility] Estimated GFR (MDRD) Amer 7 mL/min >60 [facility] [place] [facility] Comment on above: GFR Calc Estimated GFR (MDRD) Non-Af Amer 6 mL/min >60 [facility] [place] [facility] Comment on above: Non- GFR Calc Troponin I High Sensitivity 41 pg/mL 3.0-78.0 [facility] [place] [facility] Comment on above: Please Note: [place] t Units and Gender Specific Reference Ranges. For more information see Policy Stat Procedure Eagle High Sensitivity Troponin (TNIH) and attachments. Platelets bldOrdered By: Dr. Ha on 07-30-2022 Platelets (Bld) [#/Vol] 318 10*3/uL 150-450 [facility] [place] [facility] Serum or plasma albumin kassandra urement (mass/volume)Ordered By: Dr. Ha on 07-30-2022 Albumin [Mass/Vol] 2.5 g/dL 3.2-5.0 [facility] Serum or plasma albumin/glob ulin mass ratioOrdered By: Dr. Ha on 07-30-2022 Albumin/Globulin [Mass ratio] 0.5 {ratio} 0.9-2.4 [facility] [place] [facility] Serum or plasma calcium kassandra urement (mass/volume)Ordered By: Dr. Ha on 07-30-2022 Calcium [Mass/Vol] 7.8 mg/dL 8.5-10.1 [facility] Serum or plasma creatinine m easurement (mass/volume)Ordered By: Dr. Ha on 07-30-2022 Creatinine [Mass/Vol] 10.30 mg/dL 0.70-1.30 [facility] Comment on above: Critical Result(s) C alled at: 21:24:12 07/30/2022 by: Tati Nettles. Results read back by same.The validity of the calculated GFR & GFRAA in patients over 70 years has not been determined. Clinical correlation is essential. Serum or plasma urea nitroge n measurement (mass/volume)Ordered By: Dr. Ha on 07-30-2022 Urea nitrogen [Mass/Vol] 55 mg/dL 7-18 [facility] [place] [facility] Thin prep Papanicolaou smear with manual screeningOrdered By: Dr. Ha on 07-30-2022 Thin prep Papanicolaou smear with manual screening 28 U/L 15-37 [facility] [place] [facility] Thin prep Papanicolaou smear with manual screening 10 5-15 [facility] [place] [facility] XR CHEST 2V FRONTAL/LATon [facility] XR Chest PA and Lateralon IMPRESSION: Persistent partially loculated grevj-iv-eupifkxs right pleural effusion without substantial interval change with subjacent patchy opacities. Property Loss Insurance Claim Adjuster: HENRY Transcribe Date/Time: Jul 15 2022 3:45P Dictated by : COURTNEY DOWNS MD This examination was interpreted and the report reviewed and electronically signed by: COURTNEY DOWNS MD on Jul 15 2022 3:46PM [facility] DIVISION OF RADIOLOGY * * *Final Report* [...] pleura: There is a persistent partially loculated rbwed-sz-dseduaac right pleural effusion without substantial interval change with subjacent patchy opacities. No pneumothorax. Cardiomediastinal silhouette: Normal cardiomediastinal silhouette. Bones and soft tissues: Stable appearance DIVISION OF RADIOLOGY Provider, [facility] - 07/15/2022 * * *Final Report* * [...] pleura: There is a persistent partially loculated qumme-jm-rmumjorz right pleural effusion without substantial interval change with subjacent patchy opacities. No pneumothorax. Cardiomediastinal silhouette: Normal cardiomediastinal silhouette. Bones and soft tissues: Stable appearance IMPRESSION IMPRESSION: Persistent partially loculated nrpdy-hs-wpiimohd right pleural effusion without substantial interval change with subjacent patchy opacities. Property Loss Insurance Claim Adjuster: PSCB Transcribe Date/Time: Jul 15 2022 3:45P Dictated by : COURTNEY DOWNS MD This examination was interpreted and the report reviewed and electronically signed by: COURTNEY DOWNS MD on Jul 15 2022 3:46PM EST [facility] Radiology Study observation (narrative) [facility] XR Chest PA and LateralOrder ed By: Ccf Provider on 07-15-2022 [facility] BRIEF OP NOTon 06-25-2022 BRIEF OP NOT HNO ID: [id number] Author: Braxton Olivia MD Service: Radiology Author Type: Resident Type: Brief Op Note Filed: 06/25/2022 2:05 PM Note Text: BRIEF OPERATIVE / PROCEDURE NOTE LOG ID: [id number] SURGERY/PROCEDURE DATE: 06/25/2022 INCISION/PROCEDURE START TIME: 9:50 AM INCISION CLOSE/PROCEDURE END TIME: 10:10 AM SURGEON(S)/PROCEDURALIST(S ) AND SYSTEMS TESTING LABORATORY TECHNICIAN(S): Surgeon(s) and Role: * Ministerio Hauser MD, [...] June 25, 2022 TIME: 10:20 AM [facility] HISTORY PHYSICALon HISTORY PHYSICAL HNO ID: [id number] Author: Braxton Olivia MD Service: Radiology Author Type: Resident Type: HANDP Filed: 06/25/2022 9:32 AM Note Text: -- Attestation signed by Ministerio Hauser MD, at 06/25/2022 11:34 AM Agree -- UPDATED PROCEDURAL SEDATION HISTORY AND PHYSICAL EXAMINATION SERVICE DATE: 06/25/2022 SERVICE TIME: 9:31 AM PROCEDURE SCHEDULED: Procedure(s) with comments: INSERTION PLEURAL CATHETER/ EXCHANGE? Upsize (Pending) - pt/flores/ Dr Field, npo sprinkler driver,[id number] Tube clogged RADIOLOGY ORDER PLACED: ASA Class: [...] 25, 2022 TIME: 9:31 AM PAGER: [facility] IR INSERT TUNNELED PLEURAL C ATHon 06-25-2022 IR INSERT TUNNELED PLEURAL CATH * * *Final Report* * * DATE OF EXAM: Jun 25 2022 10:31AM [facility] 7704 - IR INSERT TUNNELED PLEURAL CATH [...] The procedure was performed by the: the human resources office assistant, and the attending radiologist personally supervised the entire procedure. The attending radiologist performed the following procedural activities: Personal supervision of the entir (more content not included)... [facility] IR CHEST TUBE INSERTon 06-14 IR CHEST TUBE INSERT * * *Final Report* * * DATE OF EXAM: Jun 14 2022 3:26PM [facility] 7804 - IR CHEST TUBE INSERT / [...] obtained at the end of the procedure). Property Loss Insurance Claim Adjuster: HENRY Transcribe Date/Time: Jun 14 2022 4:22P Dictated by : MINISTERIO CADENA MD This examination was interpreted and the report reviewed and electronically signed by: MINISTERIO CADENA MD on Jun 14 2022 4:33PM EST [id number] [facility] XR Chest PA and Lateralon IMPRESSION: Improvement without resolution of the right pleural effusion after placement of a right chest tube. A follow-up exam is recommended. Property Loss Insurance Claim Adjuster: [facility]ITAL[facility] Transcribe Date/Time: Jun 02 2022 4:35P Dictated [...] soft tissues: Unremarkable. DIVISION OF RADIOLOGY Provider, [facility] - 06/02/2022 * * *Final Report* * [...] chest tube. A follow-up exam is recommended. Property Loss Insurance Claim Adjuster: PSCB Transcribe Date/Time: Jun 02 2022 4:35P Dictated by : RAVI ESCOBAR MD This examination was interpreted and the report reviewed and electronically signed by: RAVI ESCOBAR MD on Jun 02 2022 4:37PM EST [facility] XR Chest PA and LateralOrder ed By: Ccf Provider on 06-02-2022 [facility] XR Chest PA and Lateralon Radiology Study observation (narrative) [facility] Donavan 04-08-2022 CNPN Telephone ([facility]) -- IVORYCARLITOS K ([id number]) 1975 M NFR Date Time Provider Department 04/08/22 DEONTE PONCE During your visit today, we recorded the following information about you: Deonte Ponce APRN.JYOTI 04/08/2022 3:20 PM Signed Called back to pt and relied answer from Dr. Huerta that this could be a piece of fat. Deonte Ponce APRN.GAS MAKER Allergies As of Date: 04/08/2022 Noted Allergy Reaction CYCLOBENZAPRINE 02/05/2017 16 - Unknown DYE 07/04/2015 14 - Other: See Comments Comments: IV contrast makes pt run a high temperature HYDRALAZINE 02/05/2017 16 - Unknown PENICILLINS 05/16/2003 2 - Rash PROCARDIA (NIFEDIPINE) 05/28/2016 7 - Swelling TRAMADOL 02/05/2017 16 - Unknown Date Reviewed: 04/04/2022 Reviewed by: Aleja Shankar, RN - Fully Assessed Reason for Visit: Returning [...] Encounter Status:Closed by DEONTE PONCE on 04/08/22 [facility] BRIEF OP NOTon 04-04-2022 BRIEF OP NOT HNO ID: [id number] Author: Celso Reed MD, MD Service: Interventional Radiology Author Type: Physician Type: Brief Op Note Filed: 04/04/2022 5:12 PM Note Text: INTERVENTIONAL RADIOLOGY POST PROCEDURE NOTE DATE: 04/04/22 NAME: Carlitos Sweeney LOG ID: [id number] Pre-Procedure Diagnosis: Recurrent pleural effusion. ESRD Nurse Navigator: Surgeon(s) and Role: * Celso Reed MD, [...] pleural catheter (Aspira) Ready to use. [facility] CBC panel Auto (Bld)on 04-04 Erythrocyte distribution width (RBC) [Ratio] 16.1 % High 11.5-15.0 [facility] Comment on above: Order Comment: Speci men Type: BLOOD SPECIMENOrdering Facility: [facility] Address: [address] [place] [address] Performed By: #### 5 8410-2 ####[facility] LABORATORYCLIA [id number] [address] [place] Hematocrit (Bld) [Volume fraction] 30.3 % Low 39.0-51.0 [facility] Comment on above: Order Comment: Speci men Type: BLOOD SPECIMENOrdering Facility: [facility] Address: [address] [place] [address] Performed By: #### 5 8410-2 ####[facility] LABORATORYCLIA [id number] [place] [address] [place] Hemoglobin (Bld) [Mass/Vol] 9.5 g/dL Low 13.0-17.0 [facility] Comment on above: Order Comment: Speci men Type: BLOOD SPECIMENOrdering Facility: [facility] Address: [address] [place] [address] Performed By: #### 5 8410-2 ####[facility] LABORATORYCLIA [id number] [address] MCH (RBC) [Entitic mass] 28.3 pg Normal 26.0-34.0 [facility] Comment on above: Order Comment: Speci men Type: BLOOD SPECIMENOrdering Facility: [facility] Address: [address] [place] [address] Performed By: #### 5 8410-2 ####[facility] LABORATORYCLIA [id number] [address] MCHC (RBC) [Mass/Vol] 31.4 g/dL Normal 30.5-36.0 [facility] Comment on above: Order Comment: Speci men Type: BLOOD SPECIMENOrdering Facility: [facility] Address: [address] [place] [address] Performed By: #### 5 8410-2 ####[facility] LABORATORYCLIA [id number] [address] MCV (RBC) [Entitic vol] 90.2 fL Normal 80.0-100.0 [facility] Comment on above: Order Comment: Speci men Type: BLOOD SPECIMENOrdering Facility: [facility] Address: [address] [place] [address] Performed By: #### 5 8410-2 ####[facility] LABORATORYCLIA [id number] [address] Nucleated RBC (Bld) [#/Vol] 10*3/uL Normal <0.01 [facility] Comment on above: Order Comment: Speci men Type: BLOOD SPECIMENOrdering Facility: [facility] Address: [address] [place] [address] Performed By: #### 5 8410-2 ####[facility] LABORATORYCLIA [id number] [address] OF [facility] Platelet mean volume (Bld) [Entitic vol] 8.7 fL Low 9.0-12.7 [facility] Comment on above: Order Comment: Speci men Type: BLOOD SPECIMENOrdering Facility: [facility] Address: [address] [place] [address] Performed By: #### 5 8410-2 ####[facility] LABORATORYCLIA [id number] [address] [place] Platelets (Bld) [#/Vol] 196 10*3/uL Normal 150-400 [facility] Comment on above: Order Comment: Speci men Type: BLOOD SPECIMENOrdering Facility: [facility] Address: [address] [place] [address] Performed By: #### 5 8410-2 ####[facility] LABORATORYCLIA [id number] [address] RBC (Bld) [#/Vol] 3.36 10*6/uL Low 4.20-6.00 [facility] Comment on above: Order Comment: Speci men Type: BLOOD SPECIMENOrdering Facility: [facility] Address: [address] [place] [address] Performed By: #### 5 8410-2 ####[facility] LABORATORYCLIA [id number] [address] WBC (Bld) [#/Vol] 4.15 10*3/uL Normal 3.70-11.00 [facility] Comment on above: Order Comment: Speci men Type: BLOOD SPECIMENOrdering Facility: [facility] Address: [address] [place] [address] Performed By: #### 5 8410-2 ####[facility] LABORATORYCLIA [id number] [address] Erythrocyte distribution width (RBC) [Ratio] 16.1 % High 11.5 - 15.0 % [facility] Hematocrit (Bld) [Volume fraction] 30.3 % Low 39.0 - 51.0 % [facility] Hemoglobin (Bld) [Mass/Vol] 9.5 g/dL Low 13.0 - 17.0 g/dL [facility] MCH (RBC) [Entitic mass] 28.3 pg 26.0 - 34.0 pg [facility] MCHC (RBC) [Mass/Vol] 31.4 g/dL 30.5 - 36.0 g/dL [facility] MCV (RBC) [Entitic vol] 90.2 fL 80.0 - 100.0 fL [facility] Nucleated RBC (Bld) [#/Vol] <0.01 k/uL [facility] Platelet mean volume (Bld) [Entitic vol] 8.7 fL Low 9.0 - 12.7 fL [facility] Platelets (Bld) [#/Vol] 196 10*3/uL 150 - 400 k/uL [facility] RBC (Bld) [#/Vol] 3.36 10*6/uL Low 4.20 - 6.0 0 m/uL [facility] WBC (Bld) [#/Vol] 4.15 10*3/uL 3.70 - 11. 00 k/uL [facility] HISTORY PHYSICALon HISTORY PHYSICAL HNO ID: [id number] Author: Celso Reed MD, MD Service: Interventional [...] can be found in the attached. [facility] IR INSERT TUNNELED PLEURAL C ATHon 04-04-2022 IR INSERT TUNNELED PLEURAL CATH * * *Final Report* * * DATE OF EXAM: Apr 04 2022 3:27PM [facility] 7704 - IR INSERT TUNNELED PLEURAL CATH [...] as described above. 2. No immediate complications. Property Loss Insurance Claim Adjuster: PSCB Transcribe Date/Time: Apr 10 2022 1:05A Dictated by : CELSO REED MD This examination was interpreted and the report reviewed and electronically signed by: CELSO REED MD on Apr 10 2022 1:09AM EST [id number] [facility] PT panel Coag (PPP)on 2021 INR Coag (PPP) [Relative time] 1.0 {INR} Normal 0.9-1.3 [facility] Comment on above: Order Comment: Speci men Type: BLOOD SPECIMENOrdering Facility: [facility] Address: [address] [place] [id number] Result Comment: Jacquelyn min K Antagonist (VKA) Therapeutic Range: INR 2 to 3 (Target INR of 2.5) Note: For patients treated with VKA drugs, such as warfarin, the [employer] 2012 Guideline recommends [...] to 3.5 (target INR of 3). Andrew GH, et al. Chest 2012, 141:7S-47S Mireya RA, et al. JAC 2017, 70: 252-289 Performed By: #### 3 4528-0 ####[facility] LABORATORYCLIA [id number] [address] [place] PT Coag (PPP) [Time] 10.7 s Normal 9.7-13.0 [facility] Comment on above: Order Comment: Speci men Type: BLOOD SPECIMENOrdering Facility: [facility] Address: [address] [place] [address] Performed By: #### 3 4528-0 ####[facility] LABORATORYCLIA [id number] [place] [address] [place] [facility] INR Coag (PPP) [Relative time] 1.0 {INR} 0.9 - 1.3 [facility] PT Coag (PPP) [Time] 10.7 s 9.7 - 1 3.0 sec [facility] No Panel Informationon 04-02 [facility] SPIROMETRY - BASELINE AND PO ST DILATORon 04-02-2022 DLCO (ml/min/mmHg) 11.16 ml/min/mmHg [facility] DLCO/VA (ml/min/mmHg/L) 3.86 ml/min/mmHg/L [facility] ERV BOX (L) 0.31 L [facility] ZFB55-95% POST (L/S) 2.11 L/S [facility] MRI54-10% PRE (L/S) 1.34 L/S [facility] FEV1 PRE (L) 1.25 L [facility] FEV1/FVC POST (%) 83 % [facility] nd [facility] FEV1/FVC PRE (%) 81 % [facility] d [facility] FEV1_POST (L) 1.37 L [facility] FRC Box (L) 1.81 L [facility] FVC POST (L) 1.65 L [facility] FVC PRE (L) 1.55 L [facility] IC BOX (L) 1.21 L [facility] PEF POST (L/S) 4.13 L/S [facility] PEF PRE (L/S) 3.80 L/S [facility] RV Box (L) 1.48 L [facility] RV/TLC Box (%) 49 % [facility] TLC Box (L) 3.00 L [facility] VA (L) 2.89 L [facility] VC (L) BOX 1.57 L [facility] CNOVon 04-01-2022 CNOV Office Visit (ALEJANDRA SILVEIRA) -- CARLITOS SWEENEY ([id number]) 1975 M NFR Date Time Provider Department 04/01/22 2:00 PM AJ HUERTA During your visit today, we recorded the following information about you: Pulse Blood pressure Weight Height 61/minute 134/70 71.4 kg 1.803 m Aj Huerta MD 04/01/2022 6:21 PM Signed PRIMARY CARE PHYSICIAN: Tom Conte [address] [place] [address] Subjective Chief Complaint Patient presents with: New [...] a current every day smoker with about 13-onjv-pwqg history. 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 [facility] CNPNon 04-01-2022 CNPN Telephone (AGVASACC) -- CARLITOS SWEENEY ([id number]) 1975 M NFR Date Time Provider Department 04/01/22 AJ HUERTA During your visit today, we recorded the following information about you: Chris Rivervictoria 04/01/2022 4:05 PM Signed Phoned [facility] Interventional Radiology [phone] to schedule pt for placement right pleural [...] Status:Closed by CHRIS JEAN-BAPTISTE on 04/01/22 [facility] CORONAVIRUS PCR - [facility] 03-28-2022 SARS-CoV-2 (COVID-19) RNA JAMILAH+probe Ql (Unsp spec) Negative Normal NORMAL: NEGATIVE [facility] Comment on above: Performed By: #### 2 08180 #### [facility],[address] [place] [address] SEND TO IC? YES Normal [facility] Comment on above: Result Comment: RESU LTS FAXED TO INFECTION CONTROL. SARS-CoV-2 THIS TEST IS BEING USED UNDER THE FDA EUA PROCEDURE. THIS ASSAY HAS BEEN VALIDATED IN THE [facility] FOR USE WITH NASOPHARYNGEAL SPECIMENS IN [facility]. INTERPRETIVE DATA LABORATORY TEST RESULTS SHOULD ALWAYS [...] PUBLIC HEALTH AUTHORITIES. Performed By: #### 2 78116 #### [facility],[address] [place] [address] HEALTH 03-11-2022 ALLIED HEALTH HNO ID: [id number] Author: RT Jag(R) Service: Radiology Author Type: [...] RT Jag(R) March 11, 2022 2:41 PM [facility] BRIEF OP NOTon 03-11-2022 BRIEF OP NOT HNO ID: [id number] Author: Olga Lidia Sheridan APRN.CNP Service: Interventional Radiology Author Type: Nurse Practitioner Type: Brief Op Note Filed: 03/11/2022 2:30 PM Note Text: BRIEF OP NOTE LOG ID: [id number] Surgery/Procedure Date: 03/11/2022 Surgeon(s)/Proceduralist(s ) and Inflated Pad Buffer(s): Olga Lidia Sheridan APRN.CNP Procedure(s): R thoracentesis Anesthesia: local 5 ml lidocaine Findings: 1200 ml clear yellow fluid, stopped due to pain/pressure/coughing. At least a moderate to large effusion remained. Estimated Blood Loss: <3 ml Specimens: No Complications: none Pre-Op/Pre-Procedure Diagnosis: effusion Post-Op/Post-Procedure Diagnosis: same SIGNATURE: Olga Lidia Sheridan APRN.CNP PATIENT NAME: Carlitos Sweeney DATE: March 11, 2022 TIME: 2:20 PM PAGER/CONTACT #: [phone] [facility] IMAGING GUIDED THORACENTESIS on 03-11-2022 [facility] US THORACENTESIS BIon 2021 US THORACENTESIS BI * * *Final Report* * * DATE OF EXAM: Mar 11 2022 2:34PM [facility] 2048 - US THORACENTESIS BI / PROCEDURE REASON: [...] prepped, and anesthetized. Under ultrasound guidance a 5-Emirati Yueh needle was passed into the pleural [...] determine the presence or absence of pneumothorax. Property Loss Insurance Claim Adjuster: HENRY Transcribe Date/Time: Mar 11 2022 3:05P Dictated by : OLGA LIDIA SHERIDAN CNP This examination was interpreted and the report reviewed and electronically signed by: OLGA LIDIA SHERIDAN CNP on Mar 11 2022 3:07PM EST [id number] [facility] XR CHEST 1V FRONTALon 2021 XR [...] residual pleural effusion. Left lung base atelectasis. Property Loss Insurance Claim Adjuster: HENRY Transcribe Date/Time: Mar 11 2022 2:45P Dictated by : DWIGHT MOSCOSO MD This examination was interpreted and the report reviewed and electronically signed by: DWIGHT MOSCOSO MD on Mar 11 2022 2:47PM EST [id number] Normal [facility] XR CHEST 2V FRONTAL/LATon [facility] XR Chest PA and Lateralon IMPRESSION: Moderately large right pleural effusion with subjacent opacity. Property Loss Insurance Claim Adjuster: [facility] Transcribe Date/Time: Feb 26 2022 12:36P Dictated [...] large right pleural effusion with subjacent opacity. Property Loss Insurance Claim Adjuster: [facility] Transcribe Date/Time: Feb 26 2022 12:36P Dictated by : COURTNEY DOWNS MD This examination was interpreted and the report reviewed and electronically signed by: COURTNEY DOWNS MD on Feb 26 2022 12:47PM EST [facility] Radiology Study observation (narrative) [facility] XR Chest PA and LateralOrder ed By: Ccf Provider on 02-26-2022 [facility] ALLIED HEALTHon 02-14-2022 ALLIED HEALTH HNO ID: [id number] Author: RT Gracie(R) Service: Radiology Author Type: [...] RT JENNIFER(R) February 14, 2022 11:51 AM [facility] BF MANUAL DIFFon 02-14-2022 Diff Total Body Fluid 100 cells counted [facility] Eosin%, BF 1 % [facility] Lymph%, BF 53 % High 18 - 36 % [facility] Macro%, BF 24 % Low 64 - 80 % [facility] Meso%, BF 15 % High 0 - 2 % [facility] Lane%, BF 6 % [facility] Neut%, BF 1 % 0 - 1 % [facility] DIF TTL, BODY FLUID 100 cells counted [facility] Comment on above: Order Comment: Speci men Type: BODY FLUID SAMPLEOrdering Facility: [facility] Address: [address] [place] [address] Performed By: #### C CBF, [id number] ####[facility] LABORATORYCLIA [id number] [place] [address] [place] EOSIN%, BF 1 % [facility] Comment on above: Order Comment: Speci men Type: BODY FLUID SAMPLEOrdering Facility: [facility] Address: [address] [place] [address] Performed By: #### C CBF, [id number] ####[facility] LABORATORYCLIA [id number] [place] [address] [place] LYMPH%, BF 53 % High 18-36 [facility] Comment on above: Order Comment: Speci men Type: BODY FLUID SAMPLEOrdering Facility: [facility] Address: [address] [place] [address] Performed By: #### C CBF, [id number] ####[facility]ORATORYCLIA [id number] [address] MACRO%, BF 24 % Low 64-80 [facility] Comment on above: Order Comment: Speci men Type: BODY FLUID SAMPLEOrdering Facility: [facility] Address: [address] [place] [address] Performed By: #### C CBF, [id number] ####[facility]ORATORYCLIA [id number] [address] OF [place] MESO %, BF 15 % High 0-2 [facility] Comment on above: Order Comment: Speci men Type: BODY FLUID SAMPLEOrdering Facility: [facility] Address: [address] [place] [address] Performed By: #### C CBF, [id number] ####[facility]ORATORYCLIA [id number] [address] OF [place] MONO% BF 6 % [facility] Comment on above: Order Comment: Speci men Type: BODY FLUID SAMPLEOrdering Facility: [facility] Address: [address] [place] [address] Performed By: #### C CBF, [id number] ####[facility]ORATORYCLIA [id number] [address] NEUT%, BF 1 % Normal 0-1 [facility] Comment on above: Order Comment: Speci men Type: BODY FLUID SAMPLEOrdering Facility: [facility] Address: [address] [place] [address] Performed By: #### C CBF, [id number] ####[facility]ORATORYCLIA [id number] [address] BODY FLUID CELL COUNTon 08-2 Clarity (Unsp spec) Not Indicated Normal Clear [facility] Comment on above: Order Comment: Speci men Type: BODY FLUID SAMPLEOrdering Facility: [facility] Address: [address] [address] Performed By: #### C CBF, [id number] ####[facility]ORATORYCLIA [id number] [address] Color (Body fld) Not Indicated Normal Yellow [facility] Comment on above: Order Comment: Speci men Type: BODY FLUID SAMPLEOrdering Facility: [facility] Address: [address] [place] [address] Performed By: #### C CBF, [id number] ####[facility]ORATORYCLIA [id number] [address] RBC Manual cnt (Body fld) [#/Vol] <2000 Normal <2000 [facility] Comment on above: Order Comment: Speci men Type: BODY FLUID SAMPLEOrdering Facility: [facility] Address: [address] [place] [address] Performed By: #### C CBF, [id number] ####[facility]ORATORYCLIA [id number] [address] Specimen source Nom (Body fld) Pleural Normal [facility] Comment on above: Order Comment: Speci men Type: BODY FLUID SAMPLEOrdering Facility: [facility] Address: [address] [place] [address] Performed By: #### C CBF, [id number] ####[facility]ORATORYCLIA [id number] [address] WBC Manual cnt (Body fld) [#/Vol] 243 /uL Normal <1000 [facility] Comment on above: Order Comment: Speci men Type: BODY FLUID SAMPLEOrdering Facility: [facility] Address: [address] [place] [address] Performed By: #### C CBF, [id number] ####[facility]ORATORYCLIA [id number] [address] Clarity (Unsp spec) Clear Clear [facility] Clarity (Unsp spec) Not Indicated Clear [facility] Color (Body fld) Yellow Yellow [facility] Color (Body fld) Not Indicated Yellow [facility] RBC Manual cnt (Body fld) [#/Vol] <2,000 /uL [facility] Specimen source Nom (Body fld) Pleural [facility] WBC Manual cnt (Body fld) [#/Vol] 243 /uL <1,000 /uL [facility] BRIEF OP NOTon 02-14-2022 BRIEF OP NOT HNO ID: [id number] Author: Keyla Lemons APRN.CNP Service: Interventional Radiology Author Type: Nurse Practitioner Type: Brief Op Note Filed: 02/14/2022 11:35 AM Note Text: BRIEF OPERATIVE / PROCEDURE NOTE LOG ID: [id number] SURGERY/PROCEDURE DATE: 02/14/2022 SURGEON(S)/PROCEDURALIST(S ) AND SYSTEMS TESTING LABORATORY TECHNICIAN(S): Surgeon(s) and Role: Keyla Lemons CNP * Thor Olivo APRN.GAS MAKER - Primary No Additional Staff SURGERY/PROCEDURE(S): R [...] February 14, 2022 TIME: 11:33 AM [facility] Bacteria Fld Culton 02-15-20 22 Bacteria identified Cx Nom (Body fld) No growth 5 days [facility] Comment on above: Order Comment: Speci men Type: MICROBIAL ISOLATEOrdering Facility: [facility] Address: [address] [place], [place] [phone] Performed By: #### 6 11-4 ####[facility] LABORATORYCLIA [id number] [place] [address] [place] Bacteria identified Cx Nom ( Body fld)on 02-14-2022 Microscopic observation Smear Nom (Unsp spec) [facility] Comment on above: Order Comment: Speci men Type: MICROBIAL ISOLATEOrdering Facility: [facility] Address: [facility] [place] [address] Result Comment: No o rganisms seen Few Polymorphonuclear leukocytes Performed By: #### 6 11-4 ####[facility] LABORATORYCLIA [id number] [place] [address] [place] [address] CHEST WO IVCONon 02-15-20 CT CHEST WO IVCON * * *Final Report* * * DATE OF EXAM: Feb 14 2022 11:57AM [facility] 0541 - CT CHEST WO IVCON [...] of prior inflammation although not including the emtse-zi-pybf of prior studies. The central airways are [...] the visualized portions of the upper abdomen. Machine Tool Designer (topogram) images: No additional findings. IMPRESSION: 1. [...] assess stability. Other chronic findings, as above. Property Loss Insurance Claim Adjuster: HENRY Transcribe Date/Time: Feb 14 2022 12:56P Dictated by : EMERY LEVI MD This examination was interpreted and the report reviewed and electronically signed by: EMERY LEVI MD on Feb 14 2022 1:06PM EST [id number] [facility] CYTOLOGY NON-GYNon 2 CASE REPORT [facility] Comment on above: Order Comment: Speci men Type: FLUID SAMPLEOrdering Facility: [facility] Address: [address] [place] [address] Result Comment: [facility] Cytology Report Case: [id number] Authorizing Provider: Keyla Lemons, Collected: 02/14/2022 11:27 AM TYPE CUTTER.GAS MAKER [facility] Received: 02/14/2022 12:54 PM INTERVENTIONAL RADIOLOGY Pathologist: Saira Garcia MD Specimen: PLEURAL FLUID RIGHT Performed By: #### C YTONON ####[facility] LABORATORYCLIA [id number] [address] OF [facility] CLINICAL HISTORY [facility] Comment on above: Order Comment: Speci men Type: FLUID SAMPLEOrdering Facility: [facility] Address: [address] [place] [address] Performed By: #### C YTONON ####[facility] LABORATORYCLIA [id number] [address] FINAL DIAGNOSIS [facility] Comment on above: Order Comment: Speci men Type: FLUID SAMPLEOrdering Facility: [facility] Address: [address] [place] [address] Result Comment: A - PLEURAL FLUID RIGHT Negative for malignant cells. The following cell blocks were associated with this case: A1Cell Block, Formalin Fixed [place] Performed By: #### C YTONON ####[facility] LABORATORYCLIA [id number] [address] FINAL PERFORMING LAB Normal [facility] Comment on above: Order Comment: Speci men Type: FLUID SAMPLEOrdering Facility: [facility] Address: [address] [place] [address] Result Comment: Tech nical component, wireless consultant screening performed at [facility], [address] [place] [address] CLIA# [id number] Diagnostic interpretation performed at [facility], [address] [place] [address] CLIA# [id number] Protein Specialist: Chi Ascencio M.D. Performed By: #### C YTONON ####[facility] LABORATORYCLIA [id number] [address] GROSS DESCRIPTION [facility] Comment on above: Order Comment: Speci men Type: FLUID SAMPLEOrdering Facility: [facility] Address: [address] [place] [address] Result Comment: A. P LEURAL FLUID RIGHT 1000 cc hazy yellow fluid. ThinPrep and Cell Block prepared. Performed By: #### C YTONON ####[facility] LABORATORYCLIA [id number] [place] [address] [place] GLUCOSE BFLon 02-14-2022 Glucose (Body fld) [Mass/Vol] 107 mg/dL See Comment mg/dL [facility] Glucose Fld-mCncon 2 Glucose (Body fld) [Mass/Vol] 107 mg/dL Normal See Comment [facility] Comment on above: Order Comment: Speci men Type: BODY FLUID SAMPLEOrdering Facility: [facility] Address: [address] [place], [place] [phone] Result Comment: Syno vial fluid: Synovial fluid [...] document C49A. DEBBIE Miranda: Clinical Laboratory Standards [place]: 2007. This test was developed and its performance characteristics determined by [facility]'s [facility] Pathology and Laboratory Medicine [place] ([facility]). It has not been cleared or approved by the FDA. -[facility] is regulated under CLIA as qualified to perform high-complexity testing. This test is used for clinical purposes. It should not be regarded as investigational or for research. Performed By: #### 2 344-0, 2529-6, 2881-1 ####[facility] LABCLIA [id number] [place] [id number] [place] IMAGING GUIDED THORACENTESIS on 02-14-2022 [facility] LDH BODY FLUIDon 02-14-2022 LDH (Body fld) [Catalytic activity/Vol] 115 U/L See Comment U/L [facility] LDH Fld-cCncon 02-14-2022 LDH (Body fld) [Catalytic activity/Vol] 115 U/L Normal See Comment [facility] Comment on above: Order Comment: Speci men Type: BODY FLUID SAMPLEOrdering Facility: [facility] Address: [address] [phone] Result Comment: Pleu ral fluids: Pleural fluid [...] Clinical Chemistry Approved Guideline. CLSI document C49A. DEBBEI Miranda: Clinical Laboratory Standards [place]: 2007. Reference: 2. Juan Miguel LESLIE, Nicole [...] developed and its performance characteristics determined by [facility]'s [facility] Pathology and Laboratory Medicine [place] ([facility]). It has not been cleared or approved by the FDA. -[facility] is regulated under CLIA as qualified to perform high-complexity testing. This test is used for clinical purposes. It should not be regarded as investigational or for research. Performed By: #### 2 344-0, 2529-6, 2881-1 ####[facility] LABCLIA [id number] [place] [address] [place] PH BODY FLUIDon 02-14-2022 pH (Body fld) 7.50 [pH] [facility] PROTEIN BFLon 02-14-2022 Protein (Body fld) [Mass/Vol] 3.4 g/dL See Comment g/dL [facility] Prot Fld-mCncon 02-14-2022 Protein (Body fld) [Mass/Vol] 3.4 g/dL Normal See Comment [facility] Comment on above: Order Comment: Speci men Type: BODY FLUID SAMPLEOrdering Facility: [facility] Address: [address] [phone] Result Comment: Sero us fluids: Effusions are [...] document C49A. DEBBIE Miranda: Clinical Laboratory Standards [place]: 2007. This test was developed and its performance characteristics determined by [facility]'s [facility] Pathology and Laboratory Medicine [place] (RTPLMI). It has not been cleared or approved by the FDA. RT-[facility] is regulated under CLIA as qualified to perform high-complexity testing. This test is used for clinical purposes. It should not be regarded as investigational or for research. Performed By: #### 2 344-0, 2529-6, 2881-1 ####[facility] LABCLIA [id number] [place] [address] [place] US THORACENTESIS BIon 2021 US THORACENTESIS BI * * *Final Report* * * DATE OF EXAM: Feb 14 2022 11:30AM [facility] 2049 - US THORACENTESIS BI / PROCEDURE [...] prepped, and anesthetized. Under ultrasound guidance a 5-Emirati Yueh needle was passed into the pleural [...] under the supervision of Thor Olivo CNP Property Loss Insurance Claim Adjuster: HENRY Transcribe Date/Time: Feb 14 2022 12:39P Dictated by : THOR OLIVO CNP This examination was interpreted and the report reviewed and electronically signed by: THOR OLIVO CNP on Feb 14 2022 2:10PM EST [id number] [facility] XR CHEST 1V FRONTALon 2021 XR [...] lung infiltrate/atelectasis. A follow-up exam is recommended. Property Loss Insurance Claim Adjuster: HENRY Transcribe Date/Time: Feb 14 2022 11:53A Dictated by : RAVI ESCOBAR MD This examination was interpreted and the report reviewed and electronically signed by: RAVI ESCOBAR MD on Feb 14 2022 11:57AM EST [id number] Normal [facility] pH (Body fld)on 02-14-2022 Fluid Nom (Body fld) Pleural Normal [facility] Comment on above: Order Comment: Speci men Type: BODY FLUID SAMPLEOrdering Facility: [facility] Address: [address] [place] [address] Performed By: #### 2 748-2 ####[facility] LABORATORYCLIA [id number] [address] [place] Fluid Nom (Body fld) Pleural [facility] pH Fldon 02-14-2022 pH (Body fld) 7.50 [pH] [facility] Comment on above: Order Comment: Speci men Type: BODY FLUID SAMPLEOrdering Facility: [facility] Address: [address] [place] [address] Result Comment: No r eference range has been established for this specimen type. Performed By: #### 2 748-2 ####[facility] LABORATORYCLIA [id number] [address] STATES OF [facility] Comprehensive metabolic 2000 panelon 02-12-2022 Albumin [Mass/Vol] 4.4 g/dL Normal 3.9-4.9 [facility] Comment on above: Order Comment: Speci men Type: BLOOD SPECIMENOrdering Facility: [facility] Address: [address] [place] [address] Performed By: #### 2 532-0, 52269-0 ####[facility] LABORATORYCLIA [id number] [address] STATES [facility] ALP [Catalytic activity/Vol] 76 U/L Normal 38-113 [facility] Comment on above: Order Comment: Speci men Type: BLOOD SPECIMENOrdering Facility: [facility] Address: [address] [place] [address] Performed By: #### 2 532-0, 95913-7 ####[facility] LABORATORYCLIA [id number] [address] [place] ALT With P-5'-P [Catalytic activity/Vol] 17 U/L Normal 10-54 [facility] Comment on above: Order Comment: Speci men Type: BLOOD SPECIMENOrdering Facility: [facility] Address: [address] [place] [address] Performed By: #### 2 532-0, 57288-1 ####[facility] LABORATORYCLIA [id number] [address] STATES OF [facility] Anion gap [Moles/Vol] 17 mmol/L Normal 9-18 [facility] Comment on above: Order Comment: Speci men Type: BLOOD SPECIMENOrdering Facility: [facility] Address: [address] [place] [address] Performed By: #### 2 532-0, 87790-4 ####[facility] LABORATORYCLIA [id number] [address] [place] AST With P-5'-P [Catalytic activity/Vol] 18 U/L Normal 14-40 [facility] Comment on above: Order Comment: Speci men Type: BLOOD SPECIMENOrdering Facility: [facility] Address: [address] [place] [address] Performed By: #### 2 532-0, 26464-0 ####[facility] LABORATORYCLIA [id number] [address] [place] Bilirubin [Mass/Vol] 0.4 mg/dL Normal 0.2-1.3 [facility] [facility] Comment on above: Order Comment: Speci men Type: BLOOD SPECIMENOrdering Facility: [facility] Address: [address] [place] [address] Performed By: #### 2 532-0, 88114-3 ####[facility] LABORATORYCLIA [id number] [place] [address] [place] Calcium [Mass/Vol] 8.6 mg/dL Normal 8.5-10.2 [facility] Comment on above: Order Comment: Speci men Type: BLOOD SPECIMENOrdering Facility: [facility] Address: [address] [address] Performed By: #### 2 532-0, 45910-2 ####[facility] LABORATORYCLIA [id number] [place] [address] [place] Chloride [Moles/Vol] 94 mmol/L Low 97-105 [facility] Comment on above: Order Comment: Speci men Type: BLOOD SPECIMENOrdering Facility: [facility] Address: [address] [place] [address] Performed By: #### 2 532-0, 14089-5 ####[facility] LABORATORYCLIA [id number] [place] [address] [place] CO2 [Moles/Vol] 29 mmol/L Normal 22-30 [facility] Comment on above: Order Comment: Speci men Type: BLOOD SPECIMENOrdering Facility: [facility] Address: [address] [place] [address] Performed By: #### 2 532-0, 63513-3 ####[facility] LABORATORYCLIA [id number] [place] [address] [place] Creatinine [Mass/Vol] 9.43 mg/dL High 0.73-1.22 [facility] Comment on above: Order Comment: Speci men Type: BLOOD SPECIMENOrdering Facility: [facility] Address: [address] [address] Performed By: #### 2 532-0, 82482-8 ####[facility] LABORATORYCLIA [id number] [address] [place] ESTIMATED GLOMERULAR FILTRATION RATE 6 mL/min/1.73m??? Low >=60 [facility] Comment on above: Order Comment: Speci men Type: BLOOD SPECIMENOrdering Facility: [facility] Address: [address] [place] [address] Result Comment: Deanna mated Glomerular Filtration Rate [...] actual GFR. Performed By: #### 2 532-0, 03557-0 ####[facility] LABORATORYCLIA [id number] [place] [address] [place] Glucose [Mass/Vol] 153 mg/dL High 74-99 [facility] Comment on above: Order Comment: Milad chapman Type: BLOOD SPECIMENOrdering Facility: [facility] Address: [address] [place], [place] [id number] Result Comment: The [place] [employer] (ADA) provides guidance for cutoff [...] Standards of Medical Care in Diabetes 2016, [place] [employer]. Diabetes Care. 2016.39(Suppl 1). Performed By: #### 2 532-0, 28563-2 ####[facility] [id number] [place] [id number] [place] Potassium [Moles/Vol] 5.4 mmol/L High 3.7-5.1 [facility] Comment on above: Order Comment: Milad chapman Type: BLOOD SPECIMENOrdering Facility: [facility] Address: [address] [phone] Performed By: #### 2 532-0, 55279-9 ####[facility] LABORATORYCLIA [id number] [place] [address] [place] Protein [Mass/Vol] 7.1 g/dL Normal 6.3-8.0 [facility] Comment on above: Order Comment: Milad chapman Type: BLOOD SPECIMENOrdering Facility: [facility] Address: [address] [place] [address] Performed By: #### 2 532-0, 46523-8 ####[facility] LABORATORYCLIA [id number] [address] [place] [phone] [place] Sodium [Moles/Vol] 140 mmol/L Normal 136-144 [facility] Comment on above: Order Comment: Milad chapman Type: BLOOD SPECIMENOrdering Facility: [facility] Address: [address] [place] [address] Performed By: #### 2 532-0, 97092-2 ####[facility] LABORATORYCLIA [id number] [address] [phone] [place] Urea nitrogen [Mass/Vol] 45 mg/dL High 9-24 [facility] Comment on above: Order Comment: Milad chapman Type: BLOOD SPECIMENOrdering Facility: [facility] Address: [address] [place] [address] Performed By: #### 2 532-0, 98908-4 ####[facility] LABORATORYCLIA [id number] [address] [phone] [place] EMERGENCY REPORTon 2 EMERGENCY REPORT [facility] EMERGENCY ROOM REPORT NAME ACCOUNT SEX AGE ADMIT DISCHARGE PT MED. RECORD# NUMBER DATE DATE TYPE CARLITOS SWEENEY [id number] M 46 02/11/22 02/11/22 3 [id number] ROOM: ER DATE OF : 1975 DICTATING [...] Serena Ascencio DO 02/11/22 06:41 JOB #: [id number] Transcribed By: am 02/11/22 11:26 Electronically signed by: DEBBY Ascencio DO 02/12/22 09:22 Page 2 of 2 CARLITOS SWEENEY Emergency Room Report Normal [facility] LDH SerPl-cCncon 02-12-2022 LDH [Catalytic activity/Vol] 191 U/L Normal 135-225 [facility] Comment on above: Order Comment: Speci men Type: BLOOD SPECIMENOrdering Facility: [facility] Address: [address] [place] [phone] Performed By: #### 2 532-0, 47449-0 ####[facility] LABORATORYCLIA [id number] [address] OF [facility] CBC + DIFFon 02-11-2022 Baso # 0.20 x10EE3/UL High 0.00 - 0.10 [facility] Comment on above: Performed By: #### 2 87486 #### [facility],[address] [place] [address] Basophils/100 WBC (Bld) 2.9 % High 0.0 - 2.0 [facility] Comment on above: Performed By: #### 2 08453 #### [address] [place] [address] CBC + DIFF Normal [facility] Comment on above: Result Comment: CBC- COMPLETE BLOOD COUNT Performed By: #### 2 43938 #### [facility],[address] [place] [address] EO # 0.20 x10EE3/UL Normal 0.00 - 0.50 [facility] Comment on above: Performed By: #### 2 27242 #### [facility],[address] [place], [place] [id number] Eosinophils/100 WBC (Bld) 3.7 % Normal 0.0 - 7.0 [facility] Comment on above: Performed By: #### 2 25824 #### [address],[place] [address] Erythrocyte distribution width (RBC) [Ratio] 16.0 % High 12.0 - 15.6 [facility] Comment on above: Performed By: #### 2 09876 #### [facility],[address] [place], [place] [id number] Hematocrit (Bld) [Volume fraction] 30.6 % Low 40.0 - 52.0 [facility] Comment on above: Performed By: #### 2 31042 #### [facility],[address] [place] [address] Hemoglobin (Bld) [Mass/Vol] 9.8 g/dL Low 13.0 - 17.5 [facility] Comment on above: Performed By: #### 2 85702 #### [facility],[address] [place] [address] Lymph # 0.90 x10EE3/UL Normal 0.80 - 2.80 [facility] Comment on above: Performed By: #### 2 06207 #### [facility],[address] [place] [address] Lymphocytes/100 WBC (Bld) 16.2 % Low 20.0 - 45.0 [facility] Comment on above: Performed By: #### 2 30601 #### [facility],[address] [place], [place] [id number] MANUAL DIFF N/A Normal [facility] Comment on above: Performed By: #### 2 40856 #### [facility],[address] [place] [address]3065 MCH (RBC) [Entitic mass] 28 pg Normal 27 - 33 [facility] Comment on above: Performed By: #### 2 96812 #### [facility],[address] [place] [address]58 MCHC 32 X10 3 Normal 32 - 36 [facility] Comment on above: Performed By: #### 2 98309 #### [facility],[address] [place] [address] 24522 MCV (RBC) [Entitic vol] 86 fL Normal 81 - 98 [facility] Comment on above: Performed By: #### 2 93366 #### [facility],[address] [place] [address] # 0[address]50 x10EE3/UL Normal 0.20 - 1.00 [facility] Comment on above: Performed By: #### 2 56040 #### [facility],[address] [place] [address]246 MONOS % 9.5 % Normal 0.0 - 10.0 [facility] Comment on above: Performed By: #### 2 09856 #### [facility],[address] [place] [address]4443 Morphology Jose (Bld) [Interp] N/A Normal [facility] Comment on above: Result Comment: {CD] Performed By: #### 2 90812 #### [facility],[address] [place] [address] 13623 Neut # 3.70 x10EE3/UL Normal 1.50 - 7.10 [facility] Comment on above: Performed By: #### 2 79275 #### [facility],[address] [place] [address] 98669 Neutrophils/100 WBC (Bld) 67.7 % Normal 46.0 - 76.0 [facility] Comment on above: Performed By: #### 2 22779 #### [facility],[address] [place] [address] 15141 PLATELET 251 x10EE3/UL Normal 150 - 450 [facility] Comment on above: Performed By: #### 2 24421 #### [facility],[address] [place] [address] 55991 Platelet mean volume (Bld) [Entitic vol] 6.9 fL Normal 6.4 - 10.5 [facility] Comment on above: Result Comment: AUTO MATED DIFFERENTIAL Performed By: #### 2 55639 #### [facility],[address] [place] [address] 72160 RBC 3.55 x 10EE6/UL Low 4.50 - 6.00 [facility] Comment on above: Performed By: #### 2 96326 #### [facility],[address] [place] [address] 50536 WBC 5.4 x 10EE3/UL Normal 4.5 - 10.8 [facility] Comment on above: Performed By: #### 2 55486 #### [facility],[address] [place] [address] 47945 CHEST 2 VIEWSon 02-11-2022 CHEST [address] [address] Patient: CARLITOS SWEENEY Phone#: : 1975 Age: 46 Gender: M Pt. Type: ER Account: [id number] Location: [facility] Ordering: SERENA ASCENCIO Exam Date: 02/11/2022/0:16 Family Phys: TOM CONTE Charge Code: [id number] Physician: [place] Order #: [id number] DLP Dose#: PROCEDURE: X-RAY CHEST 2 VIEWS COMPARISON: [facility], XR, CHEST 1 VIEW, 02/03/2022, 22:46. [...] Gonzales MD on 02/11/2022 at 8:15 Normal [facility] CMP with eGFRon 02-11-2022 AGE 46 years Normal [facility] Comment on above: Performed By: #### 2 36391 #### [facility],[address] [place] [address] 98960 Albumin [Mass/Vol] 3.7 g/dL Normal 3.4 - 5.0 [facility] Comment on above: Performed By: #### 2 87368 #### [facility],[address] [place] [address] 48573 Albumin/Globulin [Mass ratio] 0.8 {ratio} Low 0.9 - 1.6 [facility] Comment on above: Performed By: #### 2 94727 #### [facility],[address] [place] [address] 64533 ALK PHOS 81 U/L Normal 46 - 116 [facility] Comment on above: Performed By: #### 2 33676 #### [facility],[address] [place] [address] 09425 ALT [Catalytic activity/Vol] 27 U/L Normal 16 - 63 [facility] Comment on above: Performed By: #### 2 69900 #### [facility],[address] [place] [address] 77957 Anion gap [Moles/Vol] 18 mmol/L Normal 10 - 20 [facility] Comment on above: Performed By: #### 2 89850 #### [facility],[address] [place] [address] 61096 AST [Catalytic activity/Vol] 21 U/L Normal 15 - 37 [facility] Comment on above: Performed By: #### 2 99420 #### [facility],[address] [place] [address] 11229 B/C RATIO 5 ratio Normal 0 - 30 [facility] Comment on above: Performed By: #### 2 22541 #### [facility],[address] [place] [address] 37269 Bilirubin [Mass/Vol] 0.6 mg/dL Normal 0.2 - 1.0 [facility] Comment on above: Performed By: #### 2 59462 #### [facility],[address] [place] [address] 60206 Calcium [Mass/Vol] 8.1 mg/dL Low 8.5 - 10.1 [facility] Comment on above: Performed By: #### 2 31008 #### [facility],[address] [place] [address] 67258 Chloride [Moles/Vol] 96 mmol/L Low 98 - 107 [facility] Comment on above: Performed By: #### 2 08332 #### [facility],[address] [place] [address] 79530 CMP with eGFR Normal [facility] Comment on above: Result Comment: COMP REHENSIVE METABOLIC PANEL Performed By: #### 2 07221 #### [facility],[address] [place] [address] 21841 CO2 [Moles/Vol] 31.4 mmol/L Normal 21.0 - 32.0 [facility] Comment on above: Performed By: #### 2 21748 #### [facility],[address] [place] [address] 54894 Creatinine [Mass/Vol] 10.91 mg/dL High 0.70 - 1.30 [facility] Comment on above: Performed By: #### 2 61770 #### [facility],[address] [place] [address] 61191 eGFR 5 ML/MINUTE Low 60 - 999 [facility] Comment on above: Performed By: #### 2 25916 #### [facility],[address] [place] [address] 23899 eGFR(AA) 6 ML/MINUTE Low 60 - 999 [facility] Comment on above: Result Comment: ACCO RDING TO THE NATIONAL KIDNEY DISEASE EDUCATION PROGRAM(NKDE), A NORMAL eGFR IS A VALUE GREATER THAN OR EQUAL TO 60 ML/MIN/1.73 SQ METERS. CHRONIC KIDNEY DISEASE: <60mL/MIN/1.73 SQ METERS KIDNEY FAILURE: <15mL/MIN/1.73 SQ METERS THIS TEST SHOULD ONLY BE USED FOR PATIENTS 18 YEARS OF AGE AND OLDER. Performed By: #### 2 39501 #### [address] [address] Globulin (S) [Mass/Vol] 4.4 g/dL High 1.5 - 3.8 [facility] Comment on above: Performed By: #### 2 25060 #### [address] [address] Glucose [Mass/Vol] 91 mg/dL Normal 74 - 106 [facility] Comment on above: Performed By: #### 2 56330 #### [address] [address] Potassium [Moles/Vol] 5.4 mmol/L High 3.5 - 5.1 [facility] Comment on above: Performed By: #### 2 07317 #### [address] [address] Protein [Mass/Vol] 8.1 g/dL Normal 6.4 - 8.2 [facility] Comment on above: Performed By: #### 2 19436 #### [address] [address] Sodium [Moles/Vol] 140 mmol/L Normal 136 - 145 [facility] Comment on above: Performed By: #### 2 78902 #### [address] [address] Urea nitrogen [Mass/Vol] 57 mg/dL High 7 - 18 [facility] Comment on above: Performed By: #### 2 77038 #### [address] [address] [address] CHEST/ABD/PELVIS C-on CT CHEST/ABD/PELVIS [address] [address] Patient: CARLITOS SWEENEY Phone#: : 1975 Age: 46 Gender: M Pt. Type: ER Account: [id number] Location: 052 Ordering: [employer] Exam Date: 02/11/2022/0:52 Family Phys: TOM CONTE Charge Code: [id number] Physician: [place] Order #: [id number] DLP Dose#: 6.20 PROCEDURE: CT CHEST/ABD/PELVIS WO [...] 46 Gender: M Pt. Type: ER Account: [id number] Location: 052 Ordering: [employer] Exam Date: 02/11/2022/0:52 Family Phys: TOM CONTE Charge Code: [id number] Physician: [place] Order #: [id number] DLP Dose#: 6.20 KIDNEYS: The right kidney [...] Gonzales MD on 02/11/2022 at 8:55 Normal [facility] TROPONIN I, HIGH SENSITIVITY on 02-11-2022 HS TROPONIN 75.9 pg/mL Normal 0.0 - 76.2 [facility] Comment on above: Performed By: #### 2 87353 #### [facility],[address] [place] [address] EMERGENCY REPORTon 2 EMERGENCY REPORT [facility] EMERGENCY ROOM REPORT NAME ACCOUNT SEX AGE ADMIT DISCHARGE PT MED. RECORD# NUMBER DATE DATE TYPE CARLITOS SWEENEY [id number] M 46 02/03/22 02/04/22 3 [id number] ROOM: ER DATE OF : 1975 DICTATING [...] injury pattern, just some left ventricular hypertrophy. [place] was 60 degrees. QT interval was 390 [...] he should go home. I spoke with [facility] because his braid pattern setter is Dr. Hu, but they have no beds. They are full. The Page 1 of 2 CARLITOS SWEENEY Emergency Room Report CARLITOS SWEENEY : 1975 patient told me he has been admitted up at [facility] before, so I spoke with Dr. Wilson, the Hospitalist toncindy at [facility], and he did accept this patient for admission there. We are presently awaiting EMS to arrive for an ambulance transfer up to [facility] for a direct admission under Dr. Wilson's service. I have discussed the treatment plan with the patient, and he is agreeable. Dictated By: Christopher Baeza DO 02/04/22 02:36 JOB #: [id number] Transcribed By: am 02/05/22 09:10 Electronically signed by: E-Sign: Dr. Christopher Baeza D.O. 02/05/22 14:29 Page 2 of 2 CARLITOS SWEENEY Emergency Room Report Normal [facility] EMERGENCY REPORT [facility] EMERGENCY ROOM REPORT NAME ACCOUNT SEX AGE ADMIT DISCHARGE PT MED. RECORD# NUMBER DATE DATE TYPE CARLITOS SWEENEY [id number] M 46 02/03/22 02/04/22 3 [id number] ROOM: ER DATE OF : 1975 DICTATING [...] bpm. No acute ST-segment changes were noted. [place] is approximately 60 degrees. EMERGENCY DEPARTMENT COURSE AND TREATMENT: Presently, I do have some screening bloodwork pending. We will get a chest x-ray. I am going to give the patient some Solu-Medrol here as well as give him a DuoNeb and an albuterol aerosol treatment and then we will reevaluate. Dictated By: Christopher Baeza DO 02/03/22 22:56 JOB #: [id number] Transcribed By: della 02/05/22 07:54 Electronically signed by: E-Sign: Dr. Christopher Baeza D.O. 02/05/22 14:28 Page 2 of 2 CARLITOS SWEENEY Emergency Room Report Normal [facility] Basophil percentageon 2021 Basophil percentage 9.0 mg/dL 2.5-4.9 [facility]: Comment on above: Critical Result(s) C alled at: 07:44:33 02/04/2022 by: Carla Pedersen. Results read back by same. Chloride [Moles/Vol] 101 mmol/L 98-107 [facility] Work Phone: Glucose [Mass/Vol] 253 mg/dL 74-106 [facility] Work Phone: Comment on above: Glucose result great er than or equal to 200 mg/dLsuggests DIABETES MELLITUS per A.D.A. criteria. Potassium [Moles/Vol] 5.4 mmol/L 3.5-5.1 [facility] Work Phone: Sodium [Moles/Vol] 138 mmol/L 136-145 [facility] Work Phone: CBC + DIFFon 02-04-2022 Baso # 0.10 x10EE3/UL Normal 0.00 - 0.10 [facility] Comment on above: Performed By: #### 2 83585 #### [facility],[address] [place], [place] [id number] Basophils/100 WBC (Bld) 1.6 % Normal 0.0 - 2.0 [facility] Comment on above: Performed By: #### 2 35719 #### [facility],[address] [place], [place] [address] CBC + DIFF Normal [facility] Comment on above: Result Comment: CBC- COMPLETE BLOOD COUNT Performed By: #### 2 35517 #### [place] [address] EO # 0.20 x10EE3/UL Normal 0.00 - 0.50 [facility] Comment on above: Performed By: #### 2 38712 #### [place] [address] Eosinophils/100 WBC (Bld) 3.8 % Normal 0.0 - 7.0 [facility] Comment on above: Performed By: #### 2 69871 #### [place] [address] Erythrocyte distribution width (RBC) [Ratio] 15.8 % High 12.0 - 15.6 [facility] Comment on above: Performed By: #### 2 74136 #### [place] [address] Hematocrit (Bld) [Volume fraction] 29.8 % Low 40.0 - 52.0 [facility] Comment on above: Performed By: #### 2 59283 #### [place] [address] Hemoglobin (Bld) [Mass/Vol] 9.8 g/dL Low 13.0 - 17.5 [facility] Comment on above: Performed By: #### 2 01499 #### [facility],[address] [place] [address] Lymph # 0.80 x10EE3/UL Normal 0.80 - 2.80 [facility] Comment on above: Performed By: #### 2 23315 #### [place] [address] Lymphocytes/100 WBC (Bld) 13.8 % Low 20.0 - 45.0 [facility] Comment on above: Performed By: #### 2 21033 #### [facility],[address] [place] [address] MANUAL DIFF N/A Normal [facility] Comment on above: Performed By: #### 2 35555 #### [facility],[address] [place] [address] MCH (RBC) [Entitic mass] 28 pg Normal 27 - 33 [facility] Comment on above: Performed By: #### 2 26017 #### [place] [address] MCHC 33 X10 3 Normal 32 - 36 [facility] Comment on above: Performed By: #### 2 63465 #### [place] [address] MCV (RBC) [Entitic vol] 86 fL Normal 81 - 98 [facility] Comment on above: Performed By: #### 2 68061 #### [place] [address] [address] # 0.50 x10EE3/UL Normal 0.20 - 1.00 [facility] Comment on above: Performed By: #### 2 40351 #### [place] [address] MONOS % 9.2 % Normal 0.0 - 10.0 [facility] Comment on above: Performed By: #### 2 44531 #### [place] [address] Morphology Jose (Bld) [Interp] N/A Normal [facility] Comment on above: Result Comment: {CD] Performed By: #### 2 69045 #### [place] [address] Neut # 4.00 x10EE3/UL Normal 1.50 - 7.10 [facility] Comment on above: Performed By: #### 2 33067 #### [place] [address] Neutrophils/100 WBC (Bld) 71.6 % Normal 46.0 - 76.0 [facility] Comment on above: Performed By: #### 2 68837 #### [address] [address] PLATELET 230 x10EE3/UL Normal 150 - 450 [facility] Comment on above: Performed By: #### 2 41330 #### [facility],[address] [place] [address] 61632 Platelet mean volume (Bld) [Entitic vol] 7.4 fL Normal 6.4 - 10.5 [facility] Comment on above: Result Comment: AUTO MATED DIFFERENTIAL Performed By: #### 2 66614 #### [facility],[address] [place] [address] 30973 RBC 3.48 x 10EE6/UL Low 4.50 - 6.00 [facility] Comment on above: Performed By: #### 2 84902 #### [facility],[address] [place] [address] 32660 WBC 5.6 x 10EE3/UL Normal 4.5 - 10.8 [facility] Comment on above: Performed By: #### 2 02868 #### [facility],[address] [place] [address] 46009 CHEST 1 VIEWon 02-04-2022 CHEST 1 VIEW [place] [address] Patient: CARLITOS SWEENEY Phone#: : 1975 Age: 46 Gender: M Pt. Type: ER Account: [id number] Location: 052 Ordering: CHRISTOPHER BAEZA Exam Date: 02/03/2022/22:46 Family Phys: TOM CONTE Charge Code: [id number] Physician: [place] Order #: [id number] DLP Dose#: This report includes an Addendum and supersedes previous reports for this exam. PROCEDURE: X-RAY CHEST 1 VIEW COMPARISON: [facility], CT, CHEST W/O CON, 02/04/2022, 0:31. [facility], XR, CHEST 1 VIEW, 09/26/2021, 23:52. [...] 46 Gender: M Pt. Type: ER Account: [id number] Location: [facility] Ordering: CHRISTOPHER BAEZA Exam Date: 02/03/2022/22:46 Family Phys: TOM CONTE Charge Code: [id number] Physician: [place] Order #: [id number] DLP Dose#: Dictated by: Kathy Boateng MD on 02/04/2022 at 11:42 Approved by: Kathy Boateng MD on 02/04/2022 at 11:42 Normal [facility] CMP with eGFRon 02-04-2022 AGE 46 years Normal [facility] Comment on above: Performed By: #### 2 56270 #### [facility],[address] [place] [address] Albumin [Mass/Vol] 3.7 g/dL Normal 3.4 - 5.0 [facility] Comment on above: Performed By: #### 2 81113 #### [facility],[address] [place] [address] 86353 Albumin/Globulin [Mass ratio] 0.9 {ratio} Normal 0.9 - 1.6 [facility] Comment on above: Performed By: #### 2 77236 #### [facility],[address] [place] [address] 02919 ALK PHOS 75 U/L Normal 46 - 116 [facility] Comment on above: Performed By: #### 2 77041 #### [facility],[address] [place] [address] 73236 ALT [Catalytic activity/Vol] 25 U/L Normal 16 - 63 [facility] Comment on above: Performed By: #### 2 86020 #### [facility],[address] [place] [address] 92967 Anion gap [Moles/Vol] 22 mmol/L High 10 - 20 [facility] Comment on above: Performed By: #### 2 48414 #### [facility],[address] [place] [address] 50729 AST [Catalytic activity/Vol] 24 U/L Normal 15 - 37 [facility] Comment on above: Performed By: #### 2 09993 #### [facility],[address] [place] [address] 59690 B/C RATIO 5 ratio Normal 0 - 30 [facility] Comment on above: Performed By: #### 2 68387 #### [facility],[address] [place] [address] 60338 Bilirubin [Mass/Vol] 0.7 mg/dL Normal 0.2 - 1.0 [facility] Comment on above: Performed By: #### 2 67204 #### [facility],[address] [place] [address] 72750 Calcium [Mass/Vol] 8.0 mg/dL Low 8.5 - 10.1 [facility] Comment on above: Performed By: #### 2 25043 #### [facility],[address] [place] [address] 77703 Chloride [Moles/Vol] 101 mmol/L Normal 98 - 107 [facility] Comment on above: Performed By: #### 2 65336 #### [facility],[address] [place] [address] 78540 CMP with eGFR Normal [facility] Comment on above: Result Comment: COMP REHENSIVE METABOLIC PANEL Performed By: #### 2 28035 #### [facility],[address] [place] [address] 03934 CO2 [Moles/Vol] 25.9 mmol/L Normal 21.0 - 32.0 [facility] Comment on above: Performed By: #### 2 72044 #### [facility],[address] [place], [place] [id number] Creatinine [Mass/Vol] 14.77 mg/dL High 0.70 - 1.30 [facility] Comment on above: Performed By: #### 2 88480 #### [facility],[address] [place] [address] 80510 eGFR 4 ML/MINUTE Low 60 - 999 [facility] Comment on above: Performed By: #### 2 03556 #### [facility],[address] [place] [address] 89642 eGFR(AA) 4 ML/MINUTE Low 60 - 999 [facility] Comment on above: Result Comment: ACCO RDING TO THE NATIONAL KIDNEY DISEASE EDUCATION PROGRAM(NKDE), A NORMAL eGFR IS A VALUE GREATER THAN OR EQUAL TO 60 ML/MIN/1.73 SQ METERS. CHRONIC KIDNEY DISEASE: <60mL/MIN/1.73 SQ METERS KIDNEY FAILURE: <15mL/MIN/1.73 SQ METERS THIS TEST SHOULD ONLY BE USED FOR PATIENTS 18 YEARS OF AGE AND OLDER. Performed By: #### 2 84426 #### [facility],[address] [place] [address] 90527 Globulin (S) [Mass/Vol] 4.2 g/dL High 1.5 - 3.8 [facility] Comment on above: Performed By: #### 2 17094 #### [facility],[address] [place] [address] 61046 Glucose [Mass/Vol] 92 mg/dL Normal 74 - 106 [facility] Comment on above: Performed By: #### 2 39667 #### [facility],[address] [place] [address] 57580 Potassium [Moles/Vol] 5.1 mmol/L Normal 3.5 - 5.1 [facility] Comment on above: Performed By: #### 2 84571 #### [facility],[address] [place] [address] 99786 Protein [Mass/Vol] 7.9 g/dL Normal 6.4 - 8.2 [facility] Comment on above: Performed By: #### 2 34200 #### [facility],[address] [place] [address] 91782 Sodium [Moles/Vol] 144 mmol/L Normal 136 - 145 [facility] Comment on above: Performed By: #### 2 94385 #### [facility],[address] [place] [address] 08269 Urea nitrogen [Mass/Vol] 76 mg/dL High 7 - 18 [facility] Comment on above: Performed By: #### 2 69170 #### [facility],[address] [place], [place] [id number] CORONAVIRUS (SARS) ANTIGEN T DEBBIEon 02-04-2022 EXTERNAL QC DONE? YES Normal [facility] Comment on above: Performed By: #### 2 41932 #### [facility],[address] [place] [address] 56127 INTERNAL CONTROL PASS Normal [facility] Comment on above: Performed By: #### 2 60381 #### [facility],[address] [place] [address] 28971 SARS ANTIGEN Negative Normal NORMAL: NEGATIVE [facility] Comment on above: Performed By: #### 2 09858 #### [facility],[address] [place] [address] 91636 SEND TO ? YES Normal [facility] Comment on above: Result Comment: SARS -CoV-2 THIS TEST IS BEING USED UNDER THE FDA EUA PROCEDURE. THIS ASSAY HAS BEEN VALIDATED AT [facility] FOR USE WITH NASAL AND NASOPHARYNGEAL SWAB [...] PUBLIC HEALTH AUTHORITIES. Performed By: #### 2 97255 #### [facility],[address] [place] [address] CHEST W/O CONTRASTon 01-21 CT CHEST W/O CONTRAST [place] [address] Patient: CARLITOS SWEENEY Phone#: : 1975 Age: 46 Gender: M Pt. Type: ER Account: [id number] Location: 052 Ordering: CHRISTOPHER BAEZA Exam Date: 02/04/2022/0:31 Family Phys: TOM CONTE Charge Code: 787651 Physician: [place] Order #: [id number] DLP Dose#: 5.30 PROCEDURE: CT CHEST WITHOUT [...] 46 Gender: M Pt. Type: ER Account: [id number] Location: 052 Ordering: CHRISTOPHER BAEZA Exam Date: 02/04/2022/0:31 Family Phys: TOM CONTE Charge Code: [id number] Physician: [place] Order #: [id number] DLP Dose#: 5.30 1. Moderate-sized right pleural effusion. Small left pleural effusion. There is associated compressive atelectasis, cannot exclude superimposed infiltrate. 2. Right chest wall edema 3. Cardiomegaly 4. Suspected anemia Dictated by: Kathy Boateng MD on 02/04/2022 at 11:42 Approved by: Kathy Boateng MD on 02/04/2022 at 11:48 Normal [facility] Laboratory - Chemistry and C hemistry - challengeon 02-04-2022 CO2 [Moles/Vol] 21.0 mmol/L 21.0-32.0 [facility] Work Phone: Magnesium [Mass/Vol] 3.0 mg/dL 1.6-2.6 [facility] Work Phone: Comment on above: Critical Result(s) C alled at: 07:44:33 02/04/2022 by: Carla Pedersen. Results read back by same. Urea nitrogen/Creatinine [Mass ratio] 5.4 mg/mg 10-20 [facility] Work Phone: NT-proBNPon 02-04-2022 NT PRO-BNP >20729 High 0 - 125 [facility] Comment on above: Performed By: #### 2 43303 #### [facility],[address] [place] [address] No Panel Informationon 02-04 Troponin I High Sensitivity 59 pg/mL 3.0-78.0 [facility] Work Phone: Comment on above: Please Note: [place] t Units and Gender Specific Reference Ranges. For more information see Policy Stat Procedure [place] High Sensitivity Troponin (TNIH) and attachments. Estimated Creatinine Clearance Calc 6.31 ml/min [facility] Work Phone: Estimated GFR (MDRD) Amer 4 mL/min >60 [facility] Work Phone: Comment on above: GFR Calc Estimated GFR (MDRD) Non-Af Amer 4 mL/min >60 [facility] Work Phone: Comment on above: Non- GFR Calc Serum or plasma calcium kassandra urement (mass/volume)on 02-04-2022 Calcium [Mass/Vol] 8.0 mg/dL 8.5-10.1 [facility] Work Phone: Serum or plasma creatinine m easurement (mass/volume)on 02-04-2022 Creatinine [Mass/Vol] 15.20 mg/dL 0.70-1.30 [facility] Work Phone: Comment on above: The validity of the calculated GFR & GFRAA in patients over 70 years has not been determined. Clinical correlation is essential. Serum or plasma urea nitroge n measurement (mass/volume)on 02-04-2022 Urea nitrogen [Mass/Vol] 82 mg/dL 7-18 [facility] Work Phone: TROPONIN I, HIGH SENSITIVITY on 02-04-2022 HS TROPONIN 72.0 pg/mL Normal 0.0 - 76.2 [facility] Comment on above: Performed By: #### 2 36852 #### [facility],[address] [place] [address] Thin prep Papanicolaou smear with manual screeningon 02-04-2022 Thin prep Papanicolaou smear with manual screening 16 11-04 [facility] Work Phone: XR Chest PA and Lateralon IMPRESSION: Moderate fluid and atelectasis at the right base. Superimposed consolidation cannot be excluded. Cardiomegaly Property Loss Insurance Claim Adjuster: PSCB Transcribe Date/Time: Nov 01 2021 10:55A Dictated by : ISIDRO HUGO MD This examination was interpreted and the report reviewed and electronically signed by: ISIDRO HUGO MD on Nov 01 2021 10:57AM EST AMPARO_DO_NOT_ USE_DIVISIO N OF RADIOLOGY * * *Final [...] USE_DIVISIO N OF RADIOLOGY Provider, [facility] - 11/01/2021 * * *Final Report* * [...] base. Superimposed consolidation cannot be excluded. Cardiomegaly Property Loss Insurance Claim Adjuster: PSCB Transcribe Date/Time: Nov 01 2021 10:55A Dictated by : ISIDRO HUGO MD This examination was interpreted and the report reviewed and electronically signed by: ISIDRO HUGO MD on Nov 01 2021 10:57AM EST [facility] Radiology Study observation (narrative) [facility] XR Chest PA and LateralOrder ed By: Ccf Provider on 11-01-2021 [facility] EMERGENCY REPORTon EMERGENCY REPORT [facility] EMERGENCY ROOM REPORT NAME ACCOUNT SEX AGE ADMIT DISCHARGE PT MED. RECORD# NUMBER DATE DATE TYPE IVORYGABRIELLAD Katherine [id number] M 46 10/25/21 10/26/21 3 [id number] ROOM: ER DATE OF : 1975 DICTATING [...] Serena Ascencio DO 10/26/21 04:29 JOB #: [id number] Transcribed By: della 10/26/21 15:42 Electronically signed by: DEBBY Ascencio DO 10/28/21 08:08 Page 2 of 2 CARLITOS SWEENEY Emergency Room Report Normal [facility] CBC + DIFFon 10-26-2021 Baso # 0.10 x10EE3/UL Normal 0.00 - 0.10 [facility] Comment on above: Performed By: #### 2 34719 #### [place] [address] Basophils/100 WBC (Bld) 1.5 % Normal 0.0 - 2.0 [facility] Comment on above: Performed By: #### 2 01996 #### [place] [address] CBC + DIFF Normal [facility] Comment on above: Result Comment: CBC- COMPLETE BLOOD COUNT Performed By: #### 2 00338 #### [place] [address] EO # 0.20 x10EE3/UL Normal 0.00 - 0.50 [facility] Comment on above: Performed By: #### 2 22347 #### [place] [address] Eosinophils/100 WBC (Bld) 4.4 % Normal 0.0 - 7.0 [facility] Comment on above: Performed By: #### 2 33111 #### [place] [address] Erythrocyte distribution width (RBC) [Ratio] 18.3 % High 12.0 - 15.6 [facility] Comment on above: Performed By: #### 2 47982 #### [place] [address] Hematocrit (Bld) [Volume fraction] 36.9 % Low 40.0 - 52.0 [facility] Comment on above: Performed By: #### 2 70292 #### [facility],[address] [place] [address] Hemoglobin (Bld) [Mass/Vol] 11.8 g/dL Low 13.0 - 17.5 [facility] Comment on above: Performed By: #### 2 85287 #### [facility],[address] [place] [address] Lymph # 0.90 x10EE3/UL Normal 0.80 - 2.80 [facility] Comment on above: Performed By: #### 2 22885 #### [facility],[address] [place] [address] Lymphocytes/100 WBC (Bld) 20.3 % Normal 20.0 - 45.0 [facility] Comment on above: Performed By: #### 2 93701 #### [facility],[address] [place] [address] MANUAL DIFF N/A Normal [facility] Comment on above: Performed By: #### 2 16197 #### [facility],[address] [place], [place] [phone] MCH (RBC) [Entitic mass] 28 pg Normal 27 - 33 [facility] Comment on above: Performed By: #### 2 39718 #### [facility],[address] [place], [place] [id number] MCHC 32 X10 3 Normal 32 - 36 [facility] Comment on above: Performed By: #### 2 48512 #### [facility],[address] [place], [place] [address] MCV (RBC) [Entitic vol] 87 fL Normal 81 - 98 [facility] Comment on above: Performed By: #### 2 30410 #### [facility],[address] [place], [place] [address] Lane # 0.70 x10EE3/UL Normal 0.20 - 1.00 [facility] Comment on above: Performed By: #### 2 56261 #### [facility],[address] [place] [address] 21317 MONOS % 14.9 % High 0.0 - 10.0 [facility] Comment on above: Performed By: #### 2 15044 #### [facility],[address] [place] [address] Morphology Jose (Bld) [Interp] N/A Normal [facility] Comment on above: Performed By: #### 2 43042 #### [facility],[address] [place] [address] Neut # 2.60 x10EE3/UL Normal 1.50 - 7.10 [facility] Comment on above: Performed By: #### 2 59576 #### [facility],[address] [place] [address] Neutrophils/100 WBC (Bld) 58.9 % Normal 46.0 - 76.0 [facility] Comment on above: Performed By: #### 2 71696 #### [facility],[address] [place] [address] PLATELET 272 x10EE3/UL Normal 150 - 450 [facility] Comment on above: Performed By: #### 2 17244 #### [facility],[address] [place] [address] Platelet mean volume (Bld) [Entitic vol] 6.8 fL Normal 6.4 - 10.5 [facility] Comment on above: Result Comment: AUTO MATED DIFFERENTIAL Performed By: #### 2 68534 #### [facility],[address] [place] [address] RBC 4.24 x 10EE6/UL Low 4.50 - 6.00 [facility] Comment on above: Performed By: #### 2 62355 #### [facility],[address] [place] [address] 14387 WBC 4.4 x 10EE3/UL Low 4.5 - 10.8 [facility] Comment on above: Performed By: #### 2 47384 #### [facility],[address] [place] [address] 81358 CMP with eGFRon 10-26-2021 AGE 46 years Normal [facility] Comment on above: Performed By: #### 2 70584 #### [facility],[address] [place] [address] 23949 Albumin [Mass/Vol] 3.8 g/dL Normal 3.4 - 5.0 [facility] Comment on above: Performed By: #### 2 94113 #### [facility],[address] [place] [address] 19624 Albumin/Globulin [Mass ratio] 1.0 {ratio} Normal 0.9 - 1.6 [facility] Comment on above: Performed By: #### 2 45979 #### [facility],[address] [place] [address] 66259 ALK PHOS 80 U/L Normal 46 - 116 [facility] Comment on above: Performed By: #### 2 09786 #### [facility],[address] [place] [address] 95678 ALT [Catalytic activity/Vol] 16 U/L Normal 16 - 63 [facility] Comment on above: Performed By: #### 2 75270 #### [facility],[address] [place] [address] 70894 Anion gap [Moles/Vol] 12 mmol/L Normal 10 - 20 [facility] Comment on above: Performed By: #### 2 93858 #### [facility],[address] [place] [address] 48768 AST [Catalytic activity/Vol] 13 U/L Low 15 - 37 [facility] Comment on above: Performed By: #### 2 97855 #### [facility],[address] [place] [address] 17669 B/C RATIO 4 ratio Normal 0 - 30 [facility] Comment on above: Performed By: #### 2 75326 #### [facility],[address] [place] [address] 26665 Bilirubin [Mass/Vol] 0.4 mg/dL Normal 0.2 - 1.0 [facility] Comment on above: Performed By: #### 2 08801 #### [facility],[address] [place] [address] 13400 Calcium [Mass/Vol] 9.1 mg/dL Normal 8.5 - 10.1 [facility] Comment on above: Performed By: #### 2 15028 #### [facility],[address] [place] [address] 76330 Chloride [Moles/Vol] 94 mmol/L Low 98 - 107 [facility] Comment on above: Performed By: #### 2 67534 #### [facility],[address] [place] [address] 33360 CMP with eGFR Normal [facility] Comment on above: Result Comment: COMP REHENSIVE METABOLIC PANEL Performed By: #### 2 79210 #### [facility],[address] [place] [address] 02262 CO2 [Moles/Vol] 33.6 mmol/L High 21.0 - 32.0 [facility] Comment on above: Performed By: #### 2 64767 #### [facility],[address] [place] [address] 91507 Creatinine [Mass/Vol] 9.56 mg/dL High 0.70 - 1.30 [facility] Comment on above: Performed By: #### 2 10608 #### [facility],[address] [place] [address] 25316 eGFR 6 ML/MINUTE Low 60 - 999 [facility] Comment on above: Performed By: #### 2 77700 #### [facility],[address] [place] [address] 58027 eGFR(AA) 7 ML/MINUTE Low 60 - 999 [facility] Comment on above: Result Comment: ACCO RDING TO THE NATIONAL KIDNEY DISEASE EDUCATION PROGRAM(NKDE), A NORMAL eGFR IS A VALUE GREATER THAN OR EQUAL TO 60 ML/MIN/1.73 SQ METERS. CHRONIC KIDNEY DISEASE: <60mL/MIN/1.73 SQ METERS KIDNEY FAILURE: <15mL/MIN/1.73 SQ METERS THIS TEST SHOULD ONLY BE USED FOR PATIENTS 18 YEARS OF AGE AND OLDER. Performed By: #### 2 35495 #### [address] [address] Globulin (S) [Mass/Vol] 4.0 g/dL High 1.5 - 3.8 [facility] Comment on above: Performed By: #### 2 71580 #### [address] [address] Glucose [Mass/Vol] 101 mg/dL Normal 74 - 106 [facility] Comment on above: Performed By: #### 2 77097 #### [address] [address] Potassium [Moles/Vol] 4.1 mmol/L Normal 3.5 - 5.1 [facility] Comment on above: Performed By: #### 2 50383 #### [address] [address] Protein [Mass/Vol] 7.8 g/dL Normal 6.4 - 8.2 [facility] Comment on above: Performed By: #### 2 48856 #### [address] [address] Sodium [Moles/Vol] 135 mmol/L Low 136 - 145 [facility] Comment on above: Performed By: #### 2 72040 #### [address] [address] Urea nitrogen [Mass/Vol] 38 mg/dL High 7 - 18 [facility] Comment on above: Performed By: #### 2 59954 #### [facility],[address] [place] [address] ABDOMEN/PELVIS WO 10-26 CT ABDOMEN/PELVIS [address] [address] Patient: CARLIOTS SWEENEY Phone#: : 1975 Age: 46 Gender: M Pt. Type: ER Account: [id number] Location: [facility] Ordering: SERENA ASCENCIO Exam Date: 10/26/2021/0:49 Family Phys: TOM CONTE Charge Code: [id number] Physician: [place] Order #: [id number] DLP Dose#: 5.30 PROCEDURE: CT ABDOMEN/PELVIS WITHOUT [...] Normal. No enlargement or focal lesion. KIDNEYS: [place] kidneys are markedly atrophic. Dense calcification of [...] 46 Gender: M Pt. Type: ER Account: [id number] Location: 05 Ordering: SERENA ASCENCIO Exam Date: 10/26/2021/0:49 Family Phys: TOM CONTE Charge Code: [id number] Physician: [place] Order #: [id number] DLP Dose#: 5.30 LUNG BASES: Cardiac pacing device is present. Coronary artery calcification is present. There is moderate right-sided pleural effusion. Bibasilar atelectasis is present. OTHER: Negative. CONCLUSION: 1. Moderate right pleural effusion. 2. Marked atrophy of the [place] kidneys. Dense calcification of bilateral transplant kidneys. 3. Moderate stool retention. Dictated by: Kady Gonzales MD on 10/26/2021 at 9:24 Approved by: Kady Gonzales MD on 10/26/2021 at 9:30 Normal [facility] LIPASEon 10-26-2021 Lipase [Catalytic activity/Vol] 103.0 U/L Normal 73.0 - 393 [facility] Comment on above: Performed By: #### 2 05907 #### [facility],[address] [place] [address] LABORATORYOrdered By: Ghulam Mae on 10-11-2021 Albumin [...] Invalid Interpretation Code 0.00 - 0.65 10^3/mcL AH Remisol SS Eosinophils/100 WBC (Bld) 8.8 % Invalid Interpretation Code 0.0 - 6.0 % AH Remisol SS Erythrocyte distribution width (RBC) [Ratio] 16.4 % Invalid Interpretation Code 11.5 - 15.5 % AH Remisol SS GFR/1.73 sq M.predicted among blacks MDRD (S/P/Bld) [Vol rate/Area] 7 ml/min/1.73sqm Invalid Interpretation Code AH ADM SS GFR/1.73 sq M.predicted among non-blacks MDRD (S/P/Bld) [Vol rate/Area] 5 ml/min/1.73sqm Invalid Interpretation Code AH ADM SS Glucose [Mass/Vol] 95 mg/dL Invalid Interpretation Code 70 - 110 mg/dL AH ADM SS Hematocrit (Bld) [Volume fraction] 26.4 % Invalid Interpretation Code 40.0 - 52.0 % AH Remisol SS Hemoglobin (Bld) [Mass/Vol] 8.5 G/dL Invalid Interpretation Code 13.0 - 17.5 G/dL AH Remisol SS Lymphocytes (Bld) [#/Vol] 0.70 103/mcL Invalid Interpretation Code 0.90 - 4.32 10^3/mcL AH Remisol SS Lymphocytes/100 WBC (Bld) 9.9 % Invalid Interpretation Code 20.0 - 40.0 % AH Remisol SS MCH (RBC) [Entitic mass] 28.9 [...] Panel Informationon 03-12 SEE SEPARATE REPORT [facility] Work Phone: Echocardiogramon 09-08-2021 Echocardiography Please click on the link to view the study images Normal [facility]- [place] [address] Work Phone: Hemoglobin A1Con 02-28-2021 Glucose [Mass/Vol] 120 mg/dL [facility]ep hrolo [facility]-[place] 2480 DO Work Phone: HbA1c (Bld) [Mass fraction] 5.8 % Abnormal [facility]rol[facility]-[place] 2480 DO Work Phone: Comment on above: Diagnosis of Diabete s-Adults Non-Diabetic: < or = 5.6% Increased risk for developing diabetes: 5.7-6.4% Diagnostic of diabetes: > or = 6.5%. Monitoring of Diabetes Age (y) Therapeutic Goal (%) Adults: >18 <7.0 Pediatrics: 13-18 <7.5 7-12 <8.0 0- 6 7.5-8.5 [place] [employer]. Diabetes Care 33(S1), Jun 2009. Laboratory - Chemistry and C hemistry - challengeon 02-28-2021 Anion gap [Moles/Vol] 21 mmol/L above high threshold 10 - 20 [facility] [address] DO Work Phone: Calcium [Mass/Vol] 8.0 mg/dL below low threshold 8.6 - 10.6 [facility] 24[address] DO Work Phone: Chloride [Moles/Vol] 95 mmol/L below low threshold 98 - 107 [facility] 24[address] DO Work Phone: CO2 [Moles/Vol] 30 mmol/L 21 - 32 [facility] lo [facility]-[place] 2480 DO Work Phone: Creatinine [Mass/Vol] 16.49 mg/dL above high threshold See Below [facility] 2480 DO Work Phone: Comment on above: Reference Range: 0.5 0 - 1.30 Glucose [Mass/Vol] 76 mg/dL 74 - 99 [facility] 2480 DO Work Phone: Potassium [Moles/Vol] 3.8 mmol/L 3.5 - 5.3 [facility]- [facility] 2480 DO Work Phone: Sodium [Moles/Vol] 142 mmol/L 136 - 145 [facility] 2480 DO Work Phone: Urea nitrogen [Mass/Vol] 53 mg/dL above high threshold 6 - 23 [facility] 2480 DO Work Phone: No Panel Informationon 02-28 4 {mL/min/1.73m2} Abnormal >60 [facility] du[facility]-[place] 2480 DO Work Phone: Comment on above: CALCULATIONS OF DEANNA MATED GFR ARE PERFORMED USING THE MDRD STUDY EQUATION FOR THE IDMS-TRACEABLE CREATININE METHODS. CLIN CHEM 2007;53:766-72 3 {mL/min/1.73m2} Abnormal >60 [facility] [address]80 DO Work Phone: Office VIsit (Pre-Transplant Surgery)on 02-28-2021 Follow-up visit Diagnosis/Problems Assessed Pre-transplant evaluation for kidney transplant (V72.83) (Z01.818) Orders Pre-transplant evaluation for kidney transplant Basic Metabolic Panel; Status:In Progress - Specimen/Data Collected; Done: [id number] Perform:Lab Services - Lab To Draw (Blood Test); Order Comments:pre-transplant C0500; Due:[id number];Ordered; For:Pre-transplant evaluation for kidney transplant; Ordered By:Nevaeh Bowens; Hemoglobin A1C; Status:In Progress - Specimen/Data Collected; Done: [id number] Perform:Lab Services - Lab To Draw (Blood Test); Order Comments:pre-transplant C0500; Due:[id number];Ordered; For:Pre-transplant evaluation for kidney transplant; Ordered By:Nevaeh [...] but no active ischemia - Follows with nurse wound regularly 3. Central venous stenosis - Trying [...] a potential candidate for active listing at [facility] [place]. Medical Evaluation to be Performed: Nephrology, Transplant Vessel Slagman and Transplant Golf [employer] Equipment Operator. - Patient understands these requirements and will [...] All medical record entries made by the Martha were at my direction and personally dictated [...] 7 Hemodialysis: Friday, Friday, Friday. Dialysis Center: [facility] Disease Etiology: Congenital anomalies of kidneys. Compliance/Tolerance/Contr ol: good compliance with treatment. Primary Care Provider: Dr. Tom Conte (tel: [phone]). Referral: Dr. Chaya Owens (tel: [phone]; fax: [phone]). I am seeing CARLITOS SWEENEY at the referring provider's request for surgical suitability for kidney transplant candidate listing at [facility]. History of Present Illness Comments: Mr. Carlitos [...] No chest (more content not included)... Normal Root4 Transplant SW Assessment Upd ateon 02-28-2021 Transplant SW Assessment Update Note Body [...] there is no change with his insurance, [employer]. He should not require a PAP for [...] after transplant and treatments would be at [facility]. SW also discussed the frequency of post op appointments - once a week MD visits and twice a week labs for 2-3 months. Pt and sig other express understanding. Pt is moderate psychosocial risk due to previous noncompliance and changing support. Signatures Electronically signed by : MCKENZIE Burns; Feb 28 2021 1:36PM EST (Author) Normal Root4 No Panel Informationon 02-13 SEE SEPARATE REPORT -Maciel laurie Anuj 2[address] Work Phone: XR Chest PA and Lateralon IMPRESSION: Free air beneath the diaphragm. After discussion with Dr. Alaniz, it was determined that the patient recently had peritoneal dialysis. The chest is clear Findings discussed with Dr. Alaniz at 1528 Property Loss Insurance Claim Adjuster: HENRY Transcribe Date/Time: Nov 15 2020 3:13P [...] Findings discussed with Dr. Alaniz at 1528 Property Loss Insurance Claim Adjuster: PSCB Transcribe Date/Time: Nov 15 2020 3:13P Dictated by : ISIDRO HUGO MD This examination was interpreted and the report reviewed and electronically signed by: ISIDRO HUGO MD on Nov 15 2020 3:28PM EST [facility] Radiology Study observation (narrative) [facility] XR Chest PA and LateralOrder ed By: Ccf Provider on 11-15-2020 [facility] IR DIALYSIS INJ W/ANGIOPLAST Yon 09-13-2020 [...] was angioplastied with a 6 x 6 [place] balloon followed by 9 x 6 and a 10 x 8. The completion the case, there is improvement in area of stenosis. Catheters wires removed and pressure is held. FINDINGS: No evidence of inflow stenosis. No evidence of outflow stenosis. Area of central stenosis similar to prior fistulogram's, improvement status post angioplasty with a 6, 9, and 10 [place] balloon IMPRESSION: Improvement of area of central stenosis status post angioplasty. 114 MG Y, 12.2 minutes fluoroscopy time, 48 cc contrast Property Loss Insurance Claim Adjuster: HENRY Transcribe Date/Time: Sep 14 2020 10:56A Dictated by : BRIAN MENDOZA MD This examination was interpreted and the report reviewed and electronically signed by: BRIAN MENDOZA MD on Sep 14 2020 11:03AM EST [facility] IR DIALYSIS INJ W/ANGIOPLAST Yon 02-07-2020 IR DIALYSIS INJ W/ANGIOPLASTY Final Report DATE OF EXAM: Feb 07 2020 7:44AM [facility] - IR DIALYSIS INJ W/ANGIOPLASTY / PROCEDURE [...] the sheath was upsized to a 6 Emirati sheath. A fistulogram was performed. Central access was obtained. Utilizing a Glidewire and a glide catheter we were able to traverse the area of stenosis just proximal to the pacing wires, and a similar to area to the previous area stenosis. Successful angioplasty of the area stenosis was performed utilizing a 9 x 60 and 10 x 60 [place] balloon. The completion the case catheters wires removed and pressure is held. FINDINGS: No evidence of inflow stenosis by ultrasound. No evidence of outflow stenosis, large AV fistula Area of central stenosis, similar to previous, in area associated with pacing wires, successful angioplasty with 9 x 6 and 10 x 6 [place] balloon. IMPRESSION: Successful angioplasty of central stenosis. 9.8 minutes fluoroscopy time, 84 MG Y, contrast not recorded Property Loss Insurance Claim Adjuster: HENRY Transcribe Date/Time: Feb 03 2020 3:19P Dictated by : BRIAN MENDOZA MD This examination was interpreted and the report reviewed and electronically signed by: BRIAN MENDOZA MD on Feb 03 2020 3:22PM EST [facility] Otheron 11-06-2019 COMMENT [facility] [address] Work Phone: Comment on above: SEE SEPARATE REPORT. Otheron 10-20-2018 Interpreted by: MEHTA10/20/18 16:37MRN: [id number] Name: CARLITOS SWEENEY STUDY:CARDIAC STRESS/REST INJECTION; CARDIAC STRESS/REST (MYOCARDIALPERFUSION/MIBI) ; PART 2 STRESS OR REST (NO CHARGE); 10/20/2018 3:51pm; 10/20/2018 3:23 pm INDICATION:cardiac risk stratification for renal transplant. 43-year-old malewith history of congenital kidney disease, ESRD, status postpacemaker, referred for preop risk assessment COMPARISON:None. [id number]; [id number] ORDERING CLINICIAN:NAPOLEON WU TECHNIQUE:DIVISION OF NUCLEAR MEDICINEPHARMACOLOGIC [...] findingsas stated. This study was interpreted at [place], [place].Electronically signed by: ABRAHAM 10/20/18 16:37 Normal [facility] Work Phone: [id number] [phone] [address] [place] [address], [address] [place] [address], [address], [place] [address]Rwq [phone] and Gyalrnp Treadmill Stress TestPatient Name: Carlitos Sweeney Ordering Physician:Study Date: 10/20/2018 Reading Physician: Polly Oneil MDMRN/PID: [id number] Supervising Physician: Polly Oneil MDAccession/Order#: [id number] Referring Physician: [id number] of : 1975 PCP:Gender: M Fellow:Admission Status: Outpatient Seasonal Package Handler: Angelita Saltert: 180.34 cm Nurse: Balbina MooreWeight: 79.38 kg Go Cart Mechanic: NABSA: 1.99 m2 Technologist:BMI: 24.41 kg/m2 Additional Staff:Age: 43 years cc report to:Patient Location: [facility] cc report to:Stress LabStudy Type: Syngo Nuclear OrderDiagnosis/ICD: I50.9-Heart failure, unspecified; Z01.818-Encounter for otherpreprocedural examinationIndication: Congestive Heart Failure and Pretransplant evaluationProcedure/CPT: Stress Test Interpretation-[id number]; Stress Test Supervision-[id number] Details: Correct procedure and correct patient verified verbally and withID Band checked.Patient History: Previous deep vein thrombosis. 43 yo male with congenital kidney disease for pretransplant evaluation. Currently on hemodialysis. [facility] kidney transplant 1996 and 2011, S/P [...] BP 140/92 Peak HR 80.Stress Stage Data:+--+------+-------+-- +\\F\\HR\\F \\Sys BP\\F\\Joshi BP\\F\\Comments \\F\\+--+------+-------+---- +\\F\\60\\F\\1 76 \\F\\105 \\F\\ \\F\\+--+------+-------+---- +\\F\\60\\F\\ \\F\\ \\F\\Lexiscan 0.4 mg IVP \\F\\+--+------+-------+---- +\\F\\78\\F\\1 40 \\F\\92 \\F\\01:00 vague symptoms\\F\\+--+------+---- ---+ +\\ F\\79\\F\\153 \\F\\94 \\F\\02:00 \\F\\+--+------+-------+---- +Recovery ECG: Recovery ECG showed normal sinus rhythm, with no abnormal findings. The heart rate recovery was normal.+ +--+-- ----+-------+--------+\\F\\ \\F\\HR\\F\\Sys BP\\F\\Joshi BP\\F\\Comments\\F\\+--------- ---+--+------+-------+---- ----+\\F\\Recovery I \\F\\80\\F\\161 \\F\\100 \\F\\2 min \\F\\+ +--+------ +-------+--------+\\F\\Recov abdulkadir II \\F\\71\\F\\167 \\F\\98 \\F\\4 min \\F\\+ +--+------ +-------+--------+\\F\\Recov abdulkadir III\\F\\74\\F\\160 \\F\\101 \\F\\6 min \\F\\+ +--+------ +-------+--------+\\F\\Recov abdulkadir IV \\F\\ \\F\\ \\F\\ \\F\\ \\F\\+ +--+------ +-------+--------+Summary: 1. No clinical or electrocardiographic evidence for ischemia at a maximal infusion.2. Nuclear image results are reported separately.3. The adequate level of stress was achieved.[id number] Alexandra Russ MDElectronically signed on 10/20/2018 at 4:27:57 PM Final [facility] Work Phone: Otheron 09-29-2018 67 1 [facility] Work Phone: [phone] [facility] Work Phone: 88 1 [facility] Work Phone: [phone] [facility] Work Phone: [phone] [facility] Work Phone: 57 1 [facility] Work Phone: [email or web address] [id number] [facility] Work Phone: 11 1 [facility] Work Phone: 220 1 [facility] Work Phone: 142 1 [facility] Work Phone: 195 1 [facility] Work Phone: 448 1 [facility] Work Phone: [phone] 1 [facility] Work Phone: -[phone] 1 [facility] Work Phone: Normal sinus rhythm [facility] Work Phone: Vital Signs Date Time Vital Sign Value Performing Clinician Faci lity 04-12-2025 21:53-0400 Diastolic Blood Pressure Non-Invasive 68 mm[Hg] VERITO NAPIER MD [facility] 04-12-2025 21:53-0400 Heart rate 82 /min VERITO NAPIER MD [facility] 04-12-2025 21:53-0400 Respiratory rate 18 /min VERITO NAPIER MD [facility] 04-12-2025 21:53-0400 Systolic Blood Pressure Non-Invasive 158 mm[Hg] VERITO NAPIER MD [facility] 04-12-2025 15:38-0400 Body temperature 98.06 [degF] VERITO NAPIER MD [facility] 04-12-2025 15:38-0400 Body weight 73.3 kg VERITO NAPIER MD [facility] 04-12-2025 15:38-0400 Diastolic Blood Pressure Non-Invasive 95 mm[Hg] VERITO NAPIER MD [facility] 04-12-2025 15:38-0400 Heart rate 88 /min VERITO NAPIER MD [facility] 04-12-2025 15:38-0400 Respiratory rate 18 /min VERITO NAPIER MD [facility] 04-12-2025 15:38-0400 Systolic Blood Pressure Non-Invasive 158 mm[Hg] VERITO NAPIER MD [facility] 04-11-2025 14:39-0400 Body height 180.[address] Monie Alston DO Work Phone: [facility] [place] [facility] 04-11-2025 14:39-0400 Body mass index (BMI) [Ratio] 22.3 kg/m2 Dr. Monie Alston DO Work Phone: [facility] [place] [facility] 04-11-2025 14:39-0400 Body temperature 97.6 [degF] Dr. Monie Alston DO Work Phone: [facility] [place] [facility] 04-11-2025 14:39-0400 Body weight 72.[address] Monie Alston DO Work Phone: [facility] [place] [facility] 04-11-2025 14:39-0400 Diastolic blood pressure 80 mm[Hg] Dr. Monie Alston DO Work Phone: [facility] [place] [facility] 04-11-2025 14:39-0400 Heart rate 82 /min Dr. Monie Alston DO Work Phone: [facility] [place] [facility] 04-11-2025 14:39-0400 SaO2% (BldA) [Mass fraction] 98 % Dr. Monie Alston DO Work Phone: [facility] [place] [facility] 04-11-2025 14:39-0400 Systolic blood pressure 154 mm[Hg] Dr. Monie Alston DO Work Phone: [facility] [place] [facility] 03-16-2025 00:34-0400 Body temperature 97.8 [degF] Dr. Monie Alston DO Work Phone: [facility] [place] [facility] 03-16-2025 00:34-0400 Diastolic blood pressure 89 mm[Hg] Dr. Monie Alston DO Work Phone: [facility] [place] [facility] 03-16-2025 00:34-0400 Heart rate 82 /min Dr. Monie Alston DO Work Phone: [facility] [place] [facility] 03-16-2025 00:34-0400 Respiratory rate 14 /min Dr. Monie Alston DO Work Phone: [facility] [place] [facility] 03-16-2025 00:34-0400 SaO2% (BldA) [Mass fraction] 100 % Dr. Monie Alston DO Work Phone: [facility] [place] [facility] 03-16-2025 00:34-0400 Systolic blood pressure 146 mm[Hg] Dr. Monie Alston DO Work Phone: [facility] [place] [facility] 03-15-2025 21:21-0400 Body height 180.[address] Monie Alston DO Work Phone: [facility] [place] [facility] 03-15-2025 21:21-0400 Body mass index (BMI) [Ratio] 22.4 kg/m2 Dr. Monie Alston DO Work Phone: [facility] [place] [facility] 03-15-2025 21:21-0400 Body weight 73.[address] Monie Alston DO Work Phone: [facility] [place] [facility] 02-15-2025 13:52-0400 Body height 180.3 cm Loida Perea MD Work Phone: [facility] 02-15-2025 13:52-0400 Body mass index (BMI) [Ratio] 23.26 kg/m2 Loida Perea MD Work Phone: [facility] 02-15-2025 13:52-0400 Body temperature 97.81 [degF] Loida Perea MD Work Phone: [facility] 02-15-2025 13:52-0400 Body weight 75.66 kg Loida Perea MD Work Phone: [facility] 02-15-2025 13:52-0400 Diastolic blood pressure 80 mm[Hg] Loida Perea MD Work Phone: [facility] 02-15-2025 13:52-0400 Heart rate 79 /min Loida Perea MD Work Phone: [facility] 02-15-2025 13:52-0400 SaO2% (BldA) [Mass fraction] 98 % Loida Perea MD Work Phone: [facility] 02-15-2025 13:52-0400 Systolic blood pressure 163 mm[Hg] Loida Perea MD Work Phone: [facility] 02-15-2025 13:49-0400 Body height 180.3 cm Tonya garcia MD Work Phone: [facility] 02-15-2025 13:49-0400 Body mass index (BMI) [Ratio] 23.26 kg/m2 Tonya Bell MD Work Phone: [facility] 02-15-2025 13:49-0400 Body temperature 97.81 [degF] Tonya garcia MD Work Phone: [facility] 02-15-2025 13:49-0400 Body weight 75.66 kg Tonya garcia MD Work Phone: [facility] 02-15-2025 13:49-0400 Diastolic blood pressure 80 mm[Hg] Tonya Bell MD Work Phone: [facility] 02-15-2025 13:49-0400 Heart rate 79 /min Tonya garcia MD Work Phone: [facility] 02-15-2025 13:49-0400 SaO2% (BldA) [Mass fraction] 98 % Tonya Bell MD Work Phone: [facility] 02-15-2025 13:49-0400 Systolic blood pressure 163 mm[Hg] Tonya Bell MD Work Phone: [facility] 12-19-2024 15:39-0400 SaO2% (BldA) [Mass fraction] 99.1 % YARA GUERRERO MD [facility] 12-18-2024 08:32-0400 SaO2% (BldA) [Mass fraction] 94.2 % YARA GUERRERO MD [facility] 12-08-2024 12:21-0400 Diastolic blood pressure 89 mm[Hg] Jan Simeon MD MPH Work Phone: [facility] 12-08-2024 12:21-0400 Heart rate 78 /min Jan Simeon MD MPH Work Phone: [facility] 12-08-2024 12:21-0400 Respiratory rate 19 /min Jan Simeon MD MPH Work Phone: [facility] 12-08-2024 12:21-0400 SaO2% (BldA) [Mass fraction] 100 % Jan Simeon MD MPH Work Phone: [facility] 12-08-2024 12:21-0400 Systolic blood pressure 146 mm[Hg] Jan Simeon MD MPH Work Phone: [facility] 12-08-2024 06:01-0400 Body temperature 37 Jan Simeon MD MPH Work Phone: [facility] 12-08-2024 05:52-0400 Body height 180.3 cm Jan Simeon MD MPH Work Phone: [facility] 12-08-2024 05:52-0400 Body mass index (BMI) [Ratio] 23.21 kg/m2 Jan Simeon MD MPH Work Phone: [facility] 12-08-2024 05:52-0400 Body temperature 97.7 [degF] Jan Simeon MD MPH Work Phone: [facility] 12-08-2024 05:52-0400 Body weight 75.5 kg Jan Simeon MD MPH Work Phone: [facility] 12-08-2024 05:51-0400 Body temperature 37.0 degrees Celsius GENERIC SCANNING Comment on above: Performed By: #### [id number] #### MARTINEZ Al ([id number]) [facility] ([facility]) [id number] [place] [address] 12-08-2024 03:15-0400 Body temperature 97.6 [degF] Dr. Monie Alston DO Work Phone: [facility] [place] [facility] 12-08-2024 03:15-0400 Diastolic blood pressure 95 mm[Hg] Dr. Monie Alston DO Work Phone: [facility] [place] [facility] 12-08-2024 03:15-0400 Heart rate 83 /min Dr. Monie Alston DO Work Phone: [facility] [place] [facility] 12-08-2024 03:15-0400 Respiratory rate 16 /min Dr. Monie Alston DO Work Phone: [facility] [place] [facility] 12-08-2024 03:15-0400 SaO2% (BldA) [Mass fraction] 96 % Dr. Monie Alston DO Work Phone: [facility] [place] [facility] 12-08-2024 03:15-0400 Systolic blood pressure 175 mm[Hg] Dr. Monie Alston DO Work Phone: [facility] [place] [facility] 12-07-2024 23:22-0400 Diastolic blood pressure 96 mm[Hg] Dr. Monie Alston DO Work Phone: [facility] [place] [facility] 12-07-2024 23:22-0400 Heart rate 84 /min Dr. Monie Alston DO Work Phone: [facility] [place] [facility] 12-07-2024 23:22-0400 Respiratory rate 16 /min Dr. Monie Alston DO Work Phone: [facility] [place] [facility] 12-07-2024 23:22-0400 SaO2% (BldA) [Mass fraction] 94 % Dr. Monie Alston DO Work Phone: [facility] [place] [facility] 12-07-2024 23:22-0400 Systolic blood pressure 184 mm[Hg] Dr. Monie Alston DO Work Phone: [facility] [place] [facility] 12-07-2024 21:39-0400 Body mass index (BMI) [Ratio] 23.6 kg/m2 Dr. Monie Alston DO Work Phone: [facility] [place] [facility] 12-07-2024 21:39-0400 Body weight 76.[address] Monie Alston DO Work Phone: [facility] [place] [facility] 12-07-2024 21:22-0400 Body height 180.[address] Monie Alston DO Work Phone: [facility] [place] [facility] 12-07-2024 21:22-0400 Body temperature 96.8 [degF] Dr. Monie Alston DO Work Phone: [facility] [place] [facility] 11-24-2024 12:16-0400 Body mass index (BMI) [Ratio] 23.46 kg/m2 Columba Praisler-Wood TYPE CUTTER.GAS MAKER Work Phone: [facility] 11-24-2024 12:16-0400 Body weight 76.3 kg Columba Praisler-Wood TYPE CUTTER[employer]GAS MAKER Work Phone: [facility] 11-24-2024 12:16-0400 Diastolic blood pressure 82 mm[Hg] Columba Praisler-Wood TYPE CUTTER.GAS MAKER Work Phone: [facility] 11-24-2024 12:16-0400 Heart rate 97 /min Columba Praisler-Wood TYPE CUTTER[employer]GAS MAKER Work Phone: [facility] 11-24-2024 12:16-0400 Respiratory rate 20 /min Columba Praisler-Wood TYPE CUTTER.GAS MAKER Work Phone: [facility] 11-24-2024 12:16-0400 SaO2% (BldA) [Mass fraction] 98 % Columba Praisler-Wood TYPE CUTTER.GAS MAKER Work Phone: [facility] 11-24-2024 12:16-0400 Systolic blood pressure 142 mm[Hg] Columba Praisler-Wood TYPE CUTTER[employer]GAS MAKER Work Phone: [facility] 09-07-2024 08:17-0400 Body mass index (BMI) [Ratio] 22.9 kg/m2 Dr. Monie Alston DO Work Phone: [facility] [place] [facility] 09-07-2024 08:17-0400 Body weight 74.[address] Monie Alston DO Work Phone: [facility] [place] [facility] 09-07-2024 08:17-0400 Diastolic blood pressure 88 mm[Hg] Dr. Monie Alston DO Work Phone: [facility] [place] [facility] 09-07-2024 08:17-0400 Heart rate 86 /min Dr. Monie Alston DO Work Phone: [facility] [place] [facility] 09-07-2024 08:17-0400 Respiratory rate 18 /min Dr. Monie Alston DO Work Phone: [facility] [place] [facility] 09-07-2024 08:17-0400 Systolic blood pressure 142 mm[Hg] Dr. Monie Alston DO Work Phone: [facility] [place] [facility] 05-30-2024 11:53-0500 Body mass index (BMI) [Ratio] 22.32 kg/m2 Soila Maria TYPE CUTTER.GAS MAKER Work Phone: [facility] 05-30-2024 11:53-0500 Body temperature 99.5 [degF] Soila Maria TYPE CUTTER.GAS MAKER Work Phone: [facility] 05-30-2024 11:53-0500 Body weight 72.6 kg Soila Maria TYPE CUTTER.GAS MAKER Work Phone: [facility] 05-30-2024 11:53-0500 Diastolic blood pressure 69 mm[Hg] Soila Maria TYPE CUTTER.GAS MAKER Work Phone: [facility] 05-30-2024 11:53-0500 Heart rate 95 /min Soila Maria TYPE CUTTER.GAS MAKER Work Phone: [facility] 05-30-2024 11:53-0500 Respiratory rate 16 /min Soila Maria TYPE CUTTER.GAS MAKER Work Phone: [facility] 05-30-2024 11:53-0500 SaO2% (BldA) [Mass fraction] 97 % Soila Maria TYPE CUTTER.GAS MAKER Work Phone: [facility] 05-30-2024 11:53-0500 Systolic blood pressure 109 mm[Hg] Soila Maria TYPE CUTTER.GAS MAKER Work Phone: [facility] 04-13-2024 14:34-0400 Body mass index (BMI) [Ratio] 23.37 kg/m2 Soila Maria TYPE CUTTER.GAS MAKER Work Phone: [facility] 04-13-2024 14:34-0400 Body temperature 97.7 [degF] Soila Maria TYPE CUTTER.GAS MAKER Work Phone: [facility] 04-13-2024 14:34-0400 Body weight 76 kg Soila Maria TYPE CUTTER.GAS MAKER Work Phone: [facility] 04-13-2024 14:34-0400 Diastolic blood pressure 77 mm[Hg] Soila Maria TYPE CUTTER.GAS MAKER Work Phone: [facility] 04-13-2024 14:34-0400 Heart rate 83 /min Soila Maria TYPE CUTTER.GAS MAKER Work Phone: [facility] 04-13-2024 14:34-0400 Respiratory rate 18 /min Soila Maria TYPE CUTTER.GAS MAKER Work Phone: [facility] 04-13-2024 14:34-0400 SaO2% (BldA) [Mass fraction] 98 % Soila Maria TYPE CUTTER.GAS MAKER Work Phone: [facility] 04-13-2024 14:34-0400 Systolic blood pressure 159 mm[Hg] Soila Maria TYPE CUTTER.GAS MAKER Work Phone: [facility] 04-01-2024 14:28-0400 Body mass index (BMI) [Ratio] 23.37 kg/m2 Christal LEWIS Work Phone: [facility] 04-01-2024 14:28-0400 Body temperature 98.01 [degF] Krislyn Aberegg PA Work Phone: [facility] 04-01-2024 14:28-0400 Body weight 76 kg Krislyn Aberegg PA Work Phone: [facility] 04-01-2024 14:28-0400 Diastolic blood pressure 80 mm[Hg] Krislyn Aberegg PA Work Phone: [facility] 04-01-2024 14:28-0400 Heart rate 93 /min Krislyn Aberegg PA Work Phone: [facility] 04-01-2024 14:28-0400 Respiratory rate 18 /min Krislyn Aberegg PA Work Phone: [facility] 04-01-2024 14:28-0400 SaO2% (BldA) [Mass fraction] 98 % Krislyn Aberegg PA Work Phone: [facility] 04-01-2024 14:28-0400 Systolic blood pressure 140 mm[Hg] Krislyn Aberegg PA Work Phone: [facility] 11-12-2023 10:25-0400 Diastolic blood pressure 70 mm[Hg] Gio Velarde MD Work Phone: [facility] 11-12-2023 10:25-0400 Heart rate 66 /min Gio Velarde MD Work Phone: [facility] 11-12-2023 10:25-0400 Systolic blood pressure 101 mm[Hg] Gio Velarde MD Work Phone: [facility] 06-04-2023 09:51-0500 Body height 182.9 cm Gio Velarde MD Work Phone: [facility] 06-04-2023 09:51-0500 Body temperature 97.2 [degF] Gio Velarde MD Work Phone: [facility] 06-04-2023 09:51-0500 Body weight 74.34 kg Gio Velarde MD Work Phone: [facility] 06-04-2023 09:51-0500 Diastolic blood pressure 65 mm[Hg] Gio Velarde MD Work Phone: [facility] 06-04-2023 09:51-0500 Heart rate 90 /min iGo Velarde MD Work Phone: [facility] 06-04-2023 09:51-0500 Respiratory rate 16 /min Gio Velarde MD Work Phone: [facility] 06-04-2023 09:51-0500 SaO2% (BldA) [Mass fraction] 99 % Gio Velarde MD Work Phone: [facility] 06-04-2023 09:51-0500 Systolic blood pressure 106 mm[Hg] Gio Velarde MD Work Phone: [facility] 03-13-2023 09:28-0400 Body height 180.3 cm Manjit Field MD Work Phone: [facility] 03-13-2023 09:28-0400 Body temperature 97 [degF] Manjit Field MD Work Phone: [facility] 03-13-2023 09:28-0400 Body weight 75.39 kg Manjit Field MD Work Phone: [facility] 03-13-2023 09:28-0400 Diastolic blood pressure 60 mm[Hg] Manjit Field MD Work Phone: [facility] 03-13-2023 09:28-0400 Heart rate 77 /min Manjit Field MD Work Phone: [facility] 03-13-2023 09:28-0400 Respiratory rate 16 /min Manjit Field MD Work Phone: [facility] 03-13-2023 09:28-0400 SaO2% (BldA) [Mass fraction] 100 % Manjit Field MD Work Phone: [facility] 03-13-2023 09:28-0400 Systolic blood pressure 97 mm[Hg] Manjit Field MD Work Phone: [facility] 01-20-2023 16:12-0400 Body weight 72.12 kg Lyudmila An TYPE C[employer]TER[employer]AS MAKER Work Phone: [facility] 01-20-2023 16:12-0400 Diastolic blood pressure 58 mm[Hg] Lyudmila An TYPE C[employer]TER[employer]GAS MAKER Work Phone: [facility] 01-20-2023 16:12-0400 Heart rate 90 /min Lyudmila An TYPE CUTTER.GAS MAKER Work Phone: [facility] 01-20-2023 16:12-0400 Respiratory rate 16 /min Lyudmila An TYPE CUTTER.GAS MAKER Work Phone: [facility] 01-20-2023 16:12-0400 Systolic blood pressure 102 mm[Hg] Lyudmila An TYPE CUTTER.GAS MAKER Work Phone: [facility] 01-16-2023 16:12-[address] ERNST MACIEL MD [facility] 01-16-2023 16:12-[address] ERNST MACIEL MD [facility] 01-16-2023 16:12-0400 Body height 180.[address] ERNST MACIEL MD [facility] 01-16-2023 16:12-0400 Body temperature 98.06 [degF] DR ERNST MACIEL MD [facility] 01-16-2023 16:12-0400 Body weight [address] ERNST MACIEL MD [facility] 01-16-2023 16:12-0400 Diastolic Blood Pressure Non-Invasive [address] ERNST MACIEL MD [facility] 01-16-2023 16:12-0400 Heart rate 94 /min DR ERNST MACIEL MD [facility] 01-16-2023 16:12-0400 Respiratory rate 18 /min DR ERNST MACIEL MD [facility] 01-16-2023 16:12-0400 Systolic Blood Pressure Non-Invasive [address] ERNST MACIEL MD [facility] 12-28-2022 16:30-0400 Body temperature 98.06 [degF] CAROLE REICHFIELD DO [facility] 12-28-2022 16:30-0400 Diastolic Blood Pressure Non-Invasive 77 1 CAROLE REICHFIELD DO [facility] 12-28-2022 16:30-0400 Heart rate 86 /min CAROLE REICHFIELD DO [facility] 12-28-2022 16:30-0400 Respiratory rate 18 /min CAROLE REICHFIELD DO [facility] 12-28-2022 16:30-0400 Systolic Blood Pressure Non-Invasive 111 1 CAROLE REICHFIELD DO [facility] 12-09-2022 14:30-0400 Body height [address] HARVEY HARVEY MD [facility] 12-09-2022 14:30-0400 Body temperature 98.96 [degF] DR HARVEY HARVEY MD [facility] 12-09-2022 14:30-0400 Body weight [address] HARVEY HARVEY MD [facility] 12-09-2022 14:30-0400 Diastolic Blood Pressure Non-Invasive [address] HARVEY HARVEY MD [facility] 12-09-2022 14:30-0400 Heart rate 88 /min DR HARVEY HARVEY MD [facility] 12-09-2022 14:30-0400 Respiratory rate 18 /min DR HARVEY HARVEY MD [facility] 12-09-2022 14:30-0400 Systolic Blood Pressure Non-Invasive [address] HARVEY HARVEY MD [facility] 11-21-2022 14:21-0400 Body weight 68.49 kg Tom Conte MD Work Phone: [facility] 11-21-2022 14:21-0400 Diastolic blood pressure 84 mm[Hg] Tom Conte MD Work Phone: [facility] 11-21-2022 14:21-0400 Heart rate 86 /min Tom Conte MD Work Phone: [facility] 11-21-2022 14:21-0400 Respiratory rate 18 /min Tom Conte MD Work Phone: [facility] 11-21-2022 14:21-0400 Systolic blood pressure 134 mm[Hg] Tom Conte MD Work Phone: [facility] 09-23-2022 09:58-0400 SaO2% (BldA) [Mass fraction] 94 % [facility] Comment on above: Performed By: #### [id number] #### [facility],[address] [place] [address] 09-19-2022 11:20-0400 Body height 180.[address] Tom Conte Work Phone: [facility] 09-19-2022 11:20-0400 Body mass index (BMI) [Ratio] 21.6 kg/m2 Dr. Tom Conte Work Phone: [facility] 09-19-2022 11:20-0400 Body weight 70.[address] Tom Conte Work Phone: [facility] 09-19-2022 11:20-0400 Diastolic blood pressure 66 mm[Hg] Dr. Tom Conte Work Phone: [facility] 09-19-2022 11:20-0400 Heart rate 73 /min Dr. Tom Conte Work Phone: [facility] 09-19-2022 11:20-0400 Respiratory rate 16 /min Dr. Tom Conte Work Phone: [facility] 09-19-2022 11:20-0400 Systolic blood pressure 128 mm[Hg] Dr. Tom Conte Work Phone: [facility] 09-01-2022 03:38-0400 Body temperature 98.78 [degF] RAMIRO MARTIN MD [facility] 09-01-2022 03:38-0400 Diastolic Blood Pressure Non-Invasive 90 1 RAMIRO MARTIN MD [facility] 09-01-2022 03:38-0400 Heart rate 85 /min RAMIRO MARTIN MD [facility] 09-01-2022 03:38-0400 Respiratory rate 23 /min RAMIRO MARTIN MD [facility] 09-01-2022 03:38-0400 Systolic Blood Pressure Non-Invasive 149 1 RAMIRO MARTIN MD [facility] 09-01-2022 00:59-0500 Diastolic Blood Pressure Non-Invasive 90 1 RAMIRO MARTIN MD [facility] 09-01-2022 00:59-0500 Heart rate 86 /min RAMIRO MARTIN MD [facility] 09-01-2022 00:59-0500 Reason For Taking VItal Signs RAMIRO MARTIN MD [facility] 09-01-2022 00:59-0500 Respiratory rate 22 /min RAMIRO MARTIN MD [facility] 09-01-2022 00:59-0500 Systolic Blood Pressure Non-Invasive 148 1 RAMIRO MARTIN MD [facility] 08-31-2022 23:52-0500 Diastolic Blood Pressure Non-Invasive 79 1 RAMIRO MARTIN MD [facility] 08-31-2022 23:52-0500 Heart rate 86 /min RAMIRO MARTIN MD [facility] 08-31-2022 23:52-0500 Respiratory rate 24 /min RAMIRO MARTIN MD [facility] 08-31-2022 23:52-0500 Systolic Blood Pressure Non-Invasive 136 1 RAMIRO MARTIN MD [facility] 08-31-2022 22:00-0500 Body temperature 99.5 [degF] RAMIRO MARTIN MD [facility] 08-15-2022 21:13-0500 Diastolic Blood Pressure Non-Invasive 88 1 JEFF BOLEST DO [facility] 08-15-2022 21:13-0500 Heart rate 98 /min JEFF FROMMELT DO [facility] 08-15-2022 21:13-0500 Reason For Taking VItal Signs JEFF FROMLIBERTYT DO [facility] 08-15-2022 21:13-0500 Respiratory rate 18 /min JEFF BOLEST DO [facility] 08-15-2022 21:13-0500 Systolic Blood Pressure Non-Invasive 163 1 JEFF BOLEST DO [facility] 08-15-2022 18:04-0500 Body temperature 98.6 [degF] JEFF BOLEST DO [facility] 08-15-2022 18:04-0500 Diastolic Blood Pressure Non-Invasive 83 1 JEFF BOLEST [facility] 08-15-2022 18:04-0500 Heart rate 102 /min JEFF BOLEST [employer] [facility] 08-15-2022 18:04-0500 Respiratory rate 18 /min JEFF SOUZA DO [facility] 08-15-2022 18:04-0500 Systolic Blood Pressure Non-Invasive 159 1 JEFF SOUZA DO [facility] 07-30-2022 23:05-0500 Body temperature 97.8 [degF] Dr. Tom Conte Work Phone: [facility] 07-30-2022 23:05-0500 Diastolic blood pressure 78 mm[Hg] Dr. Tom Conte Work Phone: [facility] 07-30-2022 23:05-0500 Heart rate 78 /min Dr. Tom Conte Work Phone: [facility] 07-30-2022 23:05-0500 Respiratory rate 16 /min Dr. Tom Conte Work Phone: [facility] 07-30-2022 23:05-0500 SaO2% (BldA) [Mass fraction] 99 % Dr. Tom Conte Work Phone: [facility] 07-30-2022 23:05-0500 Systolic blood pressure 130 mm[Hg] Dr. Tom Conte Work Phone: [facility] 07-30-2022 19:27-0500 Body height 180.[address] Tom Conte Work Phone: [facility] 07-30-2022 19:27-0500 Body mass index (BMI) [Ratio] 21.2 kg/m2 Dr. Tom Conte Work Phone: [facility] 07-30-2022 19:27-0500 Body weight [address] Tom Conte Work Phone: [facility] 07-01-2022 13:45-0500 Body height 180.3 cm Manjit Field MD Work Phone: 6(438)400-937302 [address] 07-01-2022 13:45-0500 Body temperature 98.91 [degF] Manjit Field MD Work Phone: 3(653)972-519502 [address] 07-01-2022 13:45-0500 Body weight 69.36 kg Manjit Field MD Work Phone: 7(481)003-834002 [address] 07-01-2022 13:45-0500 Diastolic blood pressure 80 mm[Hg] Manjit Field MD Work Phone: 9(579)667-083602 [address] 07-01-2022 13:45-0500 Heart rate 89 /min Manjit Field MD Work Phone: 5(157)687-115402 [address] 07-01-2022 13:45-0500 Respiratory rate 16 /min Manjit Field MD Work Phone: 2(747)490-061931 [place] [address] 07-01-2022 13:45-0500 SaO2% (BldA) [Mass fraction] 100 % Manjit Field MD Work Phone: 9(271)789-871931 [place] [address] 07-01-2022 13:45-0500 Systolic blood pressure 152 mm[Hg] Manjit Field MD Work Phone: 5(152)733-658502 [address] 06-29-2022 20:41-0500 Body height 180.[address] Tom Conte Work Phone: 8(409)191-044809 [place] [address] Work Phone: 06-29-2022 20:41-0500 Body mass index (BMI) [Ratio] 21.2 kg/m2 Dr. Tom Conte Work Phone: 6(743)698-975200 [address] 06-29-2022 20:41-0500 Body temperature 98 [degF] Dr. Tom Conte Work Phone: 0(443)009-223596 [place] [address] 06-29-2022 20:41-0500 Body weight 68.[address] Tom Conte Work Phone: 0(474)628-196796 [place] [address] 06-29-2022 20:41-0500 Diastolic blood pressure 89 mm[Hg] Dr. Tom Conte Work Phone: 8(870)267-315596 [place] [address] 06-29-2022 20:41-0500 Heart rate 87 /min Dr. Tom Conte Work Phone: 2(978)086-913596 [place] [address] 06-29-2022 20:41-0500 Respiratory rate 17 /min Dr. Tom Conte Work Phone: 2(997)015-764996 [place] [address] 06-29-2022 20:41-0500 SaO2% (BldA) [Mass fraction] 100 % Dr. Tom Conte Work Phone: 0(339)434-711996 [place] [address] 06-29-2022 20:41-0500 Systolic blood pressure 157 mm[Hg] Dr. Tom Conte Work Phone: 7(213)520-779796 [place] [address] 05-29-2022 11:01-0500 Body mass index (BMI) [Ratio] 21.4 kg/m2 Dr. Tom Conte Work Phone: 5(460)094-327796 [place] [address] 05-29-2022 11:01-0500 Body weight 69.[address] Tom Conte Work Phone: 7(209)699-769796 [place] [address] 05-29-2022 11:01-0500 Diastolic blood pressure 84 mm[Hg] Dr. Tom Conte Work Phone: 7(099)450-106996 [place] [address] 05-29-2022 11:01-0500 Heart rate 77 /min Dr. Tom Conte Work Phone: [facility] 05-29-2022 11:01-0500 Respiratory rate 18 /min Dr. Tom Conte Work Phone: [facility] 05-29-2022 11:01-0500 SaO2% (BldA) [Mass fraction] 99 % Dr. Tom Conte Work Phone: [facility] 05-29-2022 11:01-0500 Systolic blood pressure 149 mm[Hg] Dr. Tom Conte Work Phone: [facility] 04-04-2022 16:06-0400 Diastolic blood pressure 86 mm[Hg] Celso Reed MD, MD Work Phone: [facility] 04-04-2022 16:06-0400 Respiratory rate 18 /min Celso hernandes MD, MD Work Phone: [facility] 04-04-2022 16:06-0400 SaO2% (BldA) [Mass fraction] 96 % Celso Reed MD, MD Work Phone: [facility] 04-04-2022 16:06-0400 Systolic blood pressure 145 mm[Hg] Celso Reed MD, MD Work Phone: [facility] 04-04-2022 15:18-0400 Heart rate 72 /min Celso hernandes MD, MD Work Phone: [facility] 04-04-2022 10:07-0400 Body temperature 97.5 [degF] Celso hernandes MD, MD Work Phone: [facility] 02-04-2022 14:36-0400 Body temperature 96.8 [degF] Dr. Tom Conte Work Phone: [facility] Work Phone: 02-04-2022 14:36-0400 Diastolic blood pressure 89 mm[Hg] Dr. Tom Conte Work Phone: [facility] Work Phone: 02-04-2022 14:36-0400 Heart rate 74 /min Dr. Tom Conte Work Phone: [facility] Work Phone: 02-04-2022 14:36-0400 Respiratory rate 16 /min Dr. Tom Conte Work Phone: [facility] Work Phone: 02-04-2022 14:36-0400 SaO2% (BldA) [Mass fraction] 98 % Dr. Tom Conte Work Phone: [facility] Work Phone: 02-04-2022 14:36-0400 Systolic blood pressure 157 mm[Hg] Dr. Tom Conte Work Phone: [facility] Work Phone: 02-04-2022 10:00-0400 Inhaled oxygen flow rate 3 L/min Dr. Tom Conte Work Phone: [facility] Work Phone: 02-04-2022 04:58-0400 Body height 180.[address] Tom Conte Work Phone: [facility] Work Phone: 02-04-2022 04:58-0400 Body mass index (BMI) [Ratio] 23.1 kg/m2 Dr. Tom Conte Work Phone: [facility] Work Phone: 02-04-2022 04:58-0400 Body weight 75.[address] Tom Conte Work Phone: [facility] Work Phone: 01-27-2022 22:24-0400 Body temperature 98.42 [degF] DR HARVEY HARVEY MD [facility] 01-27-2022 22:24-0400 Diastolic blood pressure 102 mm[Hg] DR HARVEY HARVEY MD [facility] 01-27-2022 22:24-0400 Heart rate 94 /min DR HARVEY HARVEY MD [facility] 01-27-2022 22:24-0400 Respiratory rate 24 /min DR HARVEY HARVEY MD [facility] 01-27-2022 22:24-0400 Systolic blood pressure 196 mm[Hg] DR HARVEY HARVEY MD [facility] 11-27-2021 10:36-0400 Body mass index (BMI) [Ratio] 22.8 kg/m2 Dr. Tom Conte Work Phone: [facility] Work Phone: 11-27-2021 10:36-0400 Body weight 74.[address] Tom Conte Work Phone: [facility] Work Phone: 11-27-2021 10:36-0400 Diastolic blood pressure 72 mm[Hg] Dr. Tom Conte Work Phone: [facility] Work Phone: 11-27-2021 10:36-0400 Heart rate 70 /min Dr. Tom Conte Work Phone: [facility] Work Phone: 11-27-2021 10:36-0400 Respiratory rate 18 /min Dr. Tom Conte Work Phone: [facility] Work Phone: 11-27-2021 10:36-0400 SaO2% (BldA) [Mass fraction] 97 % Dr. Tom Conte Work Phone: [facility] Work Phone: 11-27-2021 10:36-0400 Systolic blood pressure 135 mm[Hg] Dr. Tom Conte Work Phone: [facility] Work Phone: 10-18-2021 10:26-0400 Body weight 78.47 kg Marina Noguerahof TYPE [employer] Work Phone: [facility] 10-18-2021 10:26-0400 Diastolic blood pressure 86 mm[Hg] Marina Tannhof [employer] Work Phone: [facility] 10-18-2021 10:26-0400 Heart rate 72 /min Marina Poornimahof TYPE [employer] Work Phone: [facility] 10-18-2021 10:26-0400 Respiratory rate 16 /min Marinawilton Noguerahof TYPE C[employer]TER[employer] Work Phone: [facility] 10-18-2021 10:26-0400 Systolic blood pressure 134 mm[Hg] Marina Tannhof TYPE C[employer] Work Phone: [facility] 10-11-2021 19:49-0400 Diastolic blood pressure 74 mm[Hg] SHIELA BALDERAS MD [facility] 10-11-2021 19:49-0400 Heart rate 86 /min SHIELA BALDERAS MD [facility] 10-11-2021 19:49-0400 Respiratory rate 18 /min SHIELA BALDERAS MD [facility] 10-11-2021 19:49-0400 Systolic blood pressure 126 mm[Hg] SHIELA BALDERAS MD [facility] 10-11-2021 17:45-0400 Body temperature 98.6 [degF] SHIELA BALDERAS MD [facility] 10-11-2021 17:45-0400 Body weight 73 kg SHIELA BALDERAS MD [facility] 10-11-2021 17:45-0400 Diastolic blood pressure 70 mm[Hg] SHIELA BALDERAS MD [facility] 10-11-2021 17:45-0400 Heart rate 88 /min SHIELA BALDERAS MD [facility] 10-11-2021 17:45-0400 Respiratory rate 18 /min SHIELA BALDERAS MD [facility] 10-11-2021 17:45-0400 Systolic blood pressure 135 mm[Hg] SHIELA BALDERAS MD [facility] 08-21-2021 09:51-0500 Body height 180.[address] Tom Conte Work Phone: [facility] Work Phone: 08-21-2021 09:51-0500 Body mass index (BMI) [Ratio] 22.8 kg/m2 Dr. Tom Conte Work Phone: [facility] Work Phone: 08-21-2021 09:51-0500 Body weight 74.[address] Tom Conte Work Phone: [facility] Work Phone: 08-21-2021 09:51-0500 Diastolic blood pressure 86 mm[Hg] Dr. Tom Conte Work Phone: [facility] Work Phone: 08-21-2021 09:51-0500 Heart rate 75 /min Dr. Tom Conte Work Phone: [facility] Work Phone: 08-21-2021 09:51-0500 Respiratory rate 18 /min Dr. Tom Conte Work Phone: [facility] Work Phone: 08-21-2021 09:51-0500 SaO2% (BldA) [Mass fraction] 100 % Dr. Tom Conte Work Phone: [facility] Work Phone: 08-21-2021 09:51-0500 Systolic blood pressure 157 mm[Hg] Dr. Tom Conte Work Phone: [facility] Work Phone: 06-15-2021 05:34-0500 Body temperature 97.88 [degF] GILBERTO WILLIAM MD [facility] 06-15-2021 05:34-0500 Diastolic blood pressure 81 mm[Hg] GILBERTO WILLIAM MD [facility] 06-15-2021 05:34-0500 Heart rate 78 /min GILBERTO WILLIAM MD [facility] 06-15-2021 05:34-0500 Respiratory rate 20 /min GILBERTO WILLIAM MD [facility] 06-15-2021 05:34-0500 Systolic blood pressure 167 mm[Hg] GILBERTO WILLIAM MD [facility] 04-30-2021 21:38-0500 Body height 180 cm ODILIA DAVILA DO [facility] 04-30-2021 21:38-0500 Body temperature 98.24 [degF] ODILIA DAVILA DO [facility] 04-30-2021 21:38-0500 Body weight 72.7 kg ODILIA DAVILA DO [facility] 04-30-2021 21:38-0500 Diastolic blood pressure 111 mm[Hg] ODILIA DURESKA DO [facility] 04-30-2021 21:38-0500 Heart rate 99 /min ODILIA TIPTONESKA DO [facility] 04-30-2021 21:38-0500 Respiratory rate 20 /min ODILIA TIPTONESKA DO [facility] 04-30-2021 21:38-0500 Systolic blood pressure 187 mm[Hg] ODILIA TIPTONESKA DO [facility] 02-28-2021 11:29-0400 Body height 180.34 cm Tom Conte Work Phone: WF-Auyfuup-Wbedfd l 2099 Work Phone: 02-28-2021 11:29-0400 Body mass index (BMI) [Ratio] 22.51 kg/m2 Tom Conte Work Phone: KL-Vxepxyb-Mwdret l 2099 Work Phone: 02-28-2021 11:29-0400 Body surface area Derived from formula 1.93 m2 Tom Conte Work Phone: EU-Aeqxgpg-Jotbuv l 2099 Work Phone: 02-28-2021 11:29-0400 Body temperature 97.5 [degF] Tom Conte Work Phone: TI-Cxeewsn-Wphtju l 2099 Work Phone: 02-28-2021 11:29-0400 Body weight 73.21 kg Tom Conte Work Phone: SI-Hrlutrc-Rtvkey l 2100 Work Phone: 02-28-2021 11:29-0400 Diastolic blood pressure 74 mm[Hg] Tom Conte Work Phone: UX-Dczwehh-Fpdlbp l 2100 Work Phone: 02-28-2021 11:29-0400 Heart rate 74 /min Tom Conte Work Phone: SZ-Zjxjsvo-Lmfmwq l 2099 Work Phone: 02-28-2021 11:29-0400 SaO2% (BldA) [Mass fraction] 100 % Tom Conte Work Phone: JP-Hifpapc-Ptflvn l 2099 Work Phone: 02-28-2021 11:29-0400 Systolic blood pressure 121 mm[Hg] Tom Conte Work Phone: PD-Fjlsocr-Vivrqk l 2099 Work Phone: Encounters Encounter Date Encounter Type Care Provider Facility Start: 04-12-2025 End: 04-12-2025 Emergency department patient visit VERITO NAPIER MD [facility] Start: 04-11-2025 End: 04-11-2025 Patient encounter procedure Jeyson Callejas [place] Work Phone: Start: 04-11-2025 End: 04-11-2025 ambulatory [facility] [place] Start: 03-31-2025 End: 03-31-2025 Patient encounter status Med Echo/Stress [facility] Work Phone: Start: 03-31-2025 End: 03-31-2025 Subsequent hospital visit by physician Med Echo/Stress [facility] Comment on above: ESRD (end stage joe l disease) (Multi); Kidney replaced by transplant ([facility]); Pre-transplant evaluation for kidney transplant; Type 2 diabetes mellitus with other specified complication, unspecified whether continuous churn buttermaker insulin use (Multi) Start: 03-31-2025 End: 03-31-2025 ambulatory [facility] Start: 03-25-2025 End: 03-25-2025 ambulatory TOM [facility] Start: 03-22-2025 End: 03-22-2025 ambulatory [facility] Start: 03-18-2025 End: 03-18-2025 Patient encounter status [facility] 1 [facility] Work Phone: Start: 03-18-2025 End: 03-18-2025 Subsequent hospital visit by physician Richard [id number] [facility] Comment on above: ESRD (end stage joe l disease) ([facility]); Kidney replaced by transplant ([facility]); Pre-transplant evaluation for kidney transplant; Type 2 diabetes mellitus with other specified complication, unspecified whether long-term insulin use (Multi) Start: 03-18-2025 End: 03-18-2025 ambulatory [facility] Start: 03-18-2025 End: 03-18-2025 Encounter for other preprocedural examination [facility] Start: 03-15-2025 End: 03-16-2025 Emergency department patient visit Dr. Prabhjot Andres DO -Emergency Department Work Phone: Start: 03-11-2025 End: 03-11-2025 Emergency department patient visit SILVIA PAVON MD [facility] Start: 03-10-2025 ambulatory Monie Alston [facility] [facility] Start: 03-10-2025 End: 03-10-2025 ambulatory MONIE ALSTON DO Facility:[facility] Start: 03-10-2025 End: 03-10-2025 Patient encounter procedure ROBERT GARCIA MD [facility] Start: 02-15-2025 End: 02-15-2025 Office outpatient new 60 minutes Loida Perea MD Work Phone: [facility] Comment on above: ESRD (end stage joe l disease) (Multi) (Primary Dx); Kidney replaced by transplant ([facility]); Pre-transplant evaluation for kidney transplant Pre-transplant evalu ation for kidney transplant (Primary Dx) Start: 02-15-2025 End: 02-15-2025 Patient encounter status Loida Perea MD Work Phone: [facility] Work Phone: Start: 02-15-2025 End: 02-15-2025 ambulatory [facility] Start: 02-15-2025 End: 02-15-2025 ambulatory [facility] Start: 02-15-2025 End: 02-15-2025 Encounter for other preprocedural examination [facility] Start: 01-29-2025 End: 01-31-2025 Evaluation and management of inpatient BOGDAN PONCE MD [facility] Start: 01-29-2025 End: 01-29-2025 Emergency department patient visit DR PARTH PONCE MD [facility] Start: 01-26-2025 End: 01-26-2025 ambulatory KD RODRIGUEZ MD Facility:A Start: 01-26-2025 End: 01-26-2025 SAME DAY STAY KD RODRIGUEZ MD [facility] Start: 01-04-2025 End: 01-04-2025 ambulatory CARL GRAVES PA-C Facility:[facility] Start: 01-04-2025 End: 01-04-2025 Patient encounter procedure CARL GRAVES PA-C [facility] Start: 12-18-2024 End: 12-20-2024 Evaluation and management of inpatient YARA GUERRERO MD [facility] Start: 12-17-2024 End: 12-18-2024 Emergency department patient visit HÉCTOR JEONG DO [facility] Start: 12-08-2024 End: 12-08-2024 ambulatory JESUS CASTREJON Start: 12-08-2024 End: 12-08-2024 ambulatory [facility] Start: 12-08-2024 End: 12-08-2024 Evaluation and management of inpatient Jan Simeon MD MPH Work Phone: [facility] Start: 12-07-2024 End: 12-08-2024 Emergency department patient visit Dr. Monie Alston DO Work Phone: Emergency Department Work Phone: Start: 12-06-2024 End: 12-06-2024 Emergency department patient visit ODILIA LOLA DO [facility] Start: 11-29-2024 End: 11-29-[address] Monie Alston DO Work Phone: [facility] Work Phone: Start: 11-29-2024 End: 11-29-[address] Pablo Rogers MD -[facility] Work Phone: Start: 11-24-2024 End: 11-24-2024 ambulatory [facility] Start: 11-24-2024 End: 11-24-2024 Patient encounter procedure Columba Keith APRN.CNP Work Phone: [facility] Comment on above: Other acute nonsuppu rative otitis media of left ear, recurrence not specified (Primary Dx); Viral URI with cough Start: 10-18-2024 End: 10-18-2024 ambulatory [facility] Facility:[facility] Start: 10-12-2024 ambulatory MONIE ALSTON DO Faci lity:A Start: 10-07-2024 Non-patient / Non-visit Dr. Tevin goyal MD -[facility] Start: 10-07-2024 End: 10-07-[address] Monie Alston DO Work Phone: [facility] Work Phone: Start: 10-07-2024 End: 10-07-[address] Tevin Khan MD -Cardiovascular Services Work Phone: Start: 10-07-2024 End: 10-07-2024 ambulatory Monie Alston Facility:[facility] Start: 09-13-2024 End: 09-13-2024 ambulatory MONIE ALSTON DO Facility:[facility] Start: 09-07-2024 End: 09-07-[address] Tevin Khan MD -[facility] Work Phone: Start: 09-07-2024 End: 09-07-2024 ambulatory Monie Alston [place] Start: 09-01-2024 End: 09-01-2024 Telephone encounter Britton Morin APRN.CNP Work Phone: Vascular Surg Dept Start: 08-30-2024 End: 08-30-2024 ambulatory Monie Alston [facility] Start: 08-30-2024 End: 08-30-[address] Pablo Rogers MD [place] [facility] Work Phone: Start: 08-24-2024 End: 08-24-2024 ambulatory MONIE ALSTON DO Facility:[facility] Start: 08-24-2024 End: 08-24-2024 Patient encounter procedure MONIE ALSTON DO [facility] Start: 08-04-2024 End: 08-04-2024 Telephone encounter Gio Velarde MD Work Phone: Vascular Surg Dept Comment on above: Patient Update Start: 06-01-2024 End: 06-01-2024 ambulatory Pablo Andersonori [place] Start: 05-30-2024 End: 05-30-2024 ambulatory [facility] Facility:[facility] Start: 05-30-2024 End: 05-30-2024 Patient encounter procedure Soila Ana ANTHONYGAS MAKER Work Phone: [facility] Comment on above: Acute cough (Primary Dx); Asthma with COPD with exacerbation (HCC) Start: 04-13-2024 End: 04-13-2024 ambulatory [facility] Facility:[facility] Start: 04-13-2024 End: 04-13-2024 Patient encounter procedure Soila Ana TYPE CUTTER.GAS MAKER Work Phone: [facility] Comment on above: COPD with exacerbati on (HCC) (Primary Dx) Start: 04-01-2024 End: 04-01-2024 Subsequent hospital visit by physician [facility] Work Phone: Radiology Comment on above: Lumbar pain [M54.50] Start: 04-01-2024 End: 04-01-2024 ambulatory [facility] Facility:[facility] Start: 04-01-2024 End: 04-01-2024 Patient encounter procedure Christal LEWIS Work Phone: [facility] Comment on above: Lumbar pain (Primary Dx) Start: 11-12-2023 End: 11-12-2023 Patient encounter procedure iGo Velarde MD Work Phone: Vascular Surg Dept Comment on above: Peripheral arterial disease (HCC) (Primary Dx); Chronic combined systolic and diastolic CHF (congestive heart failure) (HCC) Start: 10-23-2023 Orders Only Gio browning MD Work Phone: Vascular Surg Dept Comment on above: ESRD (end stage joe l disease) (HCC) (Primary Dx) Arteriovenous fistul a, acquired (HCC) (Primary Dx) Start: 09-28-2023 Telephone encounter Vania Turner APRN.GAS MAKER Work Phone: Cardiothoracic Start: 08-26-2023 Telephone encounter Gio nguyen MD Work Phone: Vascular Surg Dept Start: 08-12-2023 ambulatory Abigail mclaughlin 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 Comment on above: post op concern Start: 08-12-2023 Telephone encounter Fredis Nascimento son TYPE CUTTER.GAS MAKER Work Phone: Cardiothoracic Comment on above: Returning Patient's Call Start: 08-08-2023 Follow-up encounter Juni Northjessica DO Work Phone: [facility] Start: 08-08-2023 Orders Only Gio browning MD Work Phone: Vascular Surg Dept Comment on above: ESRD (end stage joe l disease) (HCC) (Primary Dx); Arteriovenous fistula, acquired (HCC) Start: 08-08-2023 Patient encounter procedure Juni Cristiano Mary Annejessica DO Work Phone: [facility] Department Start: 08-07-2023 Follow-up encounter Juni Northjessica DO Work Phone: [facility] Start: 08-07-2023 Patient encounter procedure Juni Quinonez Mary Annejessica DO Work Phone: [facility] Start: 08-06-2023 Telephone encounter Gio [...] (HCC) (Primary Dx) Start: 07-24-2023 Telephone encounter Gio nguyen MD Work Phone: [...] Letter encounter Tom michael MD Work Phone: [facility] [place] Comment on above: Service animal lette r Start: 03-05-2023 ambulatory Tom browning MD Work Phone: [facility] Comment on above: Note for service ani mal Start: 03-03-2023 Chart abstracting Tom krishnamurthy MD Work Phone: [facility] Comment on above: ext document (Cardio OV note) Start: 01-21-2023 Telephone encounter Lyudmila saldivar APRN.GAS MAKER Work Phone: [facility] Comment on above: Results Start: 01-20-2023 End: 01-20-2023 Patient encounter procedure Lyudmila An APRN.GAS MAKER Work Phone: [facility] [place] Comment on above: Hypotension, unspeci fied hypotension type (Primary Dx); End stage renal failure on dialysis (HCC) Start: 01-16-2023 End: 01-16-2023 Emergency department patient visit DR ERNST MACIEL MD Facility:[facility] Start: 01-16-2023 End: 01-16-2023 Emergency department patient visit DR ERNST MACIEL MD [facility] Start: 12-28-2022 End: 12-28-2022 [facility] Start: 12-28-2022 End: 12-28-2022 [facility] Start: 12-09-2022 End: 12-09-2022 Emergency department patient visit DR HARVEY HARVEY MD Facility:[facility] Start: 12-09-2022 End: 12-09-2022 Emergency department patient visit DR HARVEY HARVEY MD [facility] Start: 11-28-2022 End: 11-29-2022 ambulatory VINCENZO BARBER MD Facility:A Start: 11-25-2022 Telephone encounter Tom Conte MD Work Phone: [facility] Comment on above: Results Start: 11-21-2022 End: 11-21-2022 Patient encounter procedure Tom Conte MD Work Phone: [facility] Comment on above: Essential hypertensi on (Primary Dx); Cardiomyopathy, unspecified type ([facility]); Hypertensive heart disease with congestive heart failure, unspecified heart failure type (HCC); Chronic combined systolic and diastolic CHF (congestive heart failure) ([facility]); Left ventricular systolic dysfunction; Implantable cardioverter-defibrillator (ICD) in situ; Nonrheumatic aortic valve stenosis; Elevated hemoglobin A1c; Gastroesophageal reflux disease without esophagitis; Migraine without aura and without status migrainosus, not intractable; Chronic obstructive pulmonary disease, unspecified COPD type (HCC); Anxiety; Mild episode of recurrent major depressive disorder (HCC); CKD (chronic kidney disease) stage 5, GFR less than 15 ml/min (HCC); End stage renal failure on dialysis (HCC); Anemia associated with stage 5 chronic renal failure (HCC); Hemodialysis patient (HCC); Smoker; Need for vaccination; Bilateral carotid bruits; Arteriovenous fistula, acquired (HCC) Start: 10-28-2022 Non-patient / Non-visit Dr. Paco Conte Work Phone: [facility] Start: 10-28-2022 End: 10-28-[address] Tom Conte Work Phone: [facility] Work Phone: Start: 10-28-2022 End: 10-28-[address] Tom Conte Work Phone: [facility] Start: 10-17-2022 Telephone encounter Valerie Puente [facility] Comment on above: Appointment (HFC def erral) Start: 10-08-2022 End: 10-08-2022 Emergency department patient visit ELISEO STORY MD Facility:B Start: 10-02-2022 ambulatory [facility] Start: 10-01-2022 ambulatory Keenan Wu [facility] Comment on above: Opened In Error Start: 10-01-2022 Chart abstracting Tom krishnamurthy MD Work Phone: [facility] Comment on above: dischare summary Start: 10-01-2022 Telephone encounter Tom Conte MD Work Phone: [facility] Comment on above: Patient Update; Medi cation Problem Start: 09-23-2022 End: 09-27-2022 Evaluation and management of inpatient GERALDINE AVILA DO Facility:A Start: 09-23-2022 Chart abstracting Tom krishnamurthy MD Work Phone: [facility] Start: 09-23-2022 End: 09-23-2022 Emergency department patient visit JULIAN MCLEAN [facility] Start: 09-21-2022 End: 09-21-2022 Emergency department patient visit ELISEO STORY MD Facility:[facility] Start: 09-20-2022 End: 09-20-[address] Tom Conte Work Phone: [facility] Start: 09-19-2022 Chart abstracting Tom krishnamurthy MD Work Phone: [facility] Comment on above: Consult (Cardiology /) Start: 09-19-2022 End: 09-19-2022 Subsequent hospital visit by physician Xr [facility] Work Phone: Radiology Comment on above: Pleural effusion [J9 0] Start: 09-19-2022 End: 09-19-[address] Tom Conte Work Phone: [facility] Start: 09-17-2022 Telephone encounter Valerie Puente [facility] Comment on above: Appointment (HFC mis sed appt letter) Start: 09-12-2022 Telephone encounter Myah ward RN [facility] Comment on above: Appointment Start: 09-03-2022 ambulatory Nayla porter RN Work Phone: [facility] Start: 09-03-2022 Telephone encounter Valerie Puente [facility] Comment on above: Orders (HFC order co ntact/appt) Transition Of Care ( TCM [facility]02[facility]22/) Start: 09-02-2022 Orders Only Napoleon Gordillo PA-C Work Phone: Pulmonary Medicine Comment on above: Pleural effusion (Pr imary Dx) Start: 09-01-2022 End: 09-02-2022 ambulatory DANIA OCONNOR Facility:[facility] Start: 08-31-2022 End: 09-01-2022 Emergency department patient visit RAMIRO MARTIN MD Facility:[facility] Start: 08-31-2022 End: 09-01-2022 Emergency department patient visit RAMIRO MARTIN MD [facility] Start: 08-20-2022 End: 08-20-2022 Emergency department patient visit RAMIRO MARTIN MD Facility:[facility] Start: 08-18-2022 ambulatory Manjit garvey MD Work Phone: Pulmonary Comment on above: Possible fluid Start: 08-15-2022 End: 08-15-2022 Emergency department patient visit TOM CONTE MD Facility:[facility] Start: 08-15-2022 End: 08-15-2022 Emergency department patient visit JEFF SOUZA DO [facility] Start: 08-08-2022 End: 08-08-2022 ambulatory FERNANDO FITZPATRICK Facility:[facility] Start: 07-31-2022 Chart abstracting Tom krishnamurthy MD Work Phone: [facility] Comment on above: Patient Update (ER W CH ) Start: 07-31-2022 Telephone encounter Manjit Field MD Work Phone: Pulmonary Comment on above: Patient Question; Pa tient Update Start: 07-30-2022 End: 07-30-2022 Emergency department patient visit Dr. Tom Conte [facility] Start: 07-24-2022 Telephone encounter Manjit Field MD Work Phone: Pulmonary Comment on above: Patient Update Start: 07-15-2022 End: 07-15-2022 Subsequent hospital visit by physician [facility] Work Phone: Radiology Comment on above: Pleural effusion [J9 0] Start: 07-15-2022 Telephone encounter Manjit Field MD Work Phone: Pulmonary Medicine Comment on above: Drainage (Pleurx cat heter) Start: 07-04-2022 ambulatory Manjit garvey MD Work Phone: Pulmonary Comment on above: Aspire for drian tub es and bandages Insurance cards Start: 07-01-2022 End: [...] 06-29-2022 Emergency department patient visit Dr. Tom Conte Work Phone: [facility] Start: 06-25-2022 End: 06-25-2022 ambulatory TOM CONTE Facility:[facility] Start: 06-19-2022 Telephone encounter Manjit Field MD Work Phone: Pulmonary Comment on above: Patient Update Start: 06-14-2022 ambulatory TOM CONTE Facili ty:[facility] Start: 06-11-2022 Telephone encounter Manjit Field MD Work Phone: Pulmonary Comment on above: Patient Question Start: 05-31-2022 End: 05-31-2022 Subsequent hospital visit by physician Xr [facility] Work Phone: Radiology Comment on above: Pleural effusion [J9 0] Start: 05-29-2022 End: 05-29-[address] Tom Conte Work Phone: [facility] Start: 05-27-2022 Telephone encounter Manjit Field MD Work Phone: Pulmonary Comment on above: Patient Question Start: 04-24-2022 ambulatory Manjit garvey MD Work Phone: Pulmonary Comment on above: Drain Start: 04-08-2022 Telephone encounter Deonte Ponce APRN.CNP Work Phone: [facility] Comment on above: Returning Patient's Call Start: 04-04-2022 ambulatory CELSO Velazquez acility:[facility] Start: 04-04-2022 End: 04-04-2022 Subsequent hospital visit by physician Celso Reed MD Work Phone: [facility] Comment on above: Pleural effusion [J9 0] Start: 04-03-2022 Telephone encounter Manjit Field MD Work Phone: Pulmonary Medicine Comment on above: Results Start: 04-02-2022 End: 04-02-2022 ambulatory Pulm Work Phone: PUL LAB [facility] Comment on above: Spirometry Start: 04-02-2022 End: 04-02-2022 Patient encounter procedure [facility] [place] Work Phone: [facility] [place] Start: 04-01-2022 End: 04-01-2022 ambulatory AJ HUERTA Facility:[facility] Start: 04-01-2022 Telephone encounter Aj brannon MD Work Phone: [facility] Comment on above: Patient Update Start: 03-26-2022 End: 03-26-2022 ambulatory [facility] Start: 03-11-2022 ambulatory TOM Paredes ty:[facility] Start: 03-11-2022 End: 03-11-2022 Subsequent hospital visit by physician Olga Lidia Sheridan APRN.GAS MAKER Work Phone: [facility] Comment on above: Recurrent right pleu ral effusion [J90] Start: 03-05-2022 Orders Only Manjit garvey MD Work Phone: [facility] Comment on above: Recurrent [...] right side.) Start: 02-14-2022 ambulatory THOR OLIVO Facility:[facility] Start: 02-14-2022 End: 02-14-2022 Subsequent hospital visit by physician Thor Olivo APRN.[facility] Work Phone: [facility] Comment on above: Pleural effusion [J9 0] Start: 02-12-2022 End: 02-13-2022 ambulatory MANJIT FIELD Facility:[facility] Start: 02-11-2022 End: 02-11-2022 Emergency department patient visit SERENA ASCENCIO [facility] Start: 02-04-2022 Non-patient / Non-visit Dr. Paco oCnte Work Phone: [facility] Start: 02-04-2022 End: 02-04-2022 Evaluation and management of inpatient Dr. Tom Conte Work Phone: [facility] Start: 02-04-2022 End: 02-04-2022 Emergency department patient visit CHRISTOPHER PANTOJA [facility] Start: 01-27-2022 End: 01-27-2022 Emergency department patient visit DR HARVEY HARVEY MD [facility] Start: 01-24-2022 ambulatory Tom browning MD Work Phone: [facility] [place] Comment on above: Blood work for job Start: 11-27-2021 End: 11-27-[address] Tom Conte Work Phone: [facility] Start: 11-05-2021 End: 11-05-2021 ambulatory GLORIA HUADITI [facility] Start: 11-03-2021 Telephone encounter Marina Henry mcfarland TYPE CUTTER.GAS MAKER Work Phone: [facility] Comment on above: Results Start: 11-01-2021 Chart abstracting Tom krishnamurthy MD Work Phone: [facility] Start: 11-01-2021 Non-patient / Non-visit Dr. Paco Conte Work Phone: [facility] Start: 11-01-2021 End: 11-01-2021 Subsequent hospital visit by physician Xr [facility] Work Phone: Radiology Comment on above: History of pneumonia [Z87.01] Start: 11-01-2021 End: 11-01-[address] Tom Conte Work Phone: [facility] Start: 10-26-2021 End: 10-26-2021 Emergency department patient visit SERENA ASCENCIO [facility] Start: 10-18-2021 End: 10-18-2021 Patient encounter procedure Marina Marley APRN.GAS MAKER Work Phone: [facility] Comment on above: History of pneumonia (Primary Dx); End stage renal failure on dialysis (HCC) Start: 10-11-2021 End: 10-11-2021 Emergency department patient visit SHIELA BALDERAS MD [facility] Start: 09-28-2021 ambulatory Tom browning MD Work Phone: [facility] Comment on above: Hospital have pneumo barbraa Start: 08-21-2021 End: 08-21-[address] Tom Conte Work Phone: [facility] Start: 06-15-2021 End: 06-15-2021 Emergency department patient visit GILBERTO WILLIAM MD [facility] Start: 04-30-2021 End: 04-30-2021 Emergency department patient visit ODILIA DAVILA DO [facility] Start: 04-06-2021 AUDIT Tom browning Work Phone: CL-Onuyzmympy-Rkwyvq Work Phone: Start: 03-19-2021 Chart Update Tom browning Work Phone: GR-Zukrbmbqiu-Jjibghef 2480 DO Work Phone: Start: 03-15-2021 AUDIT Tom browning Work Phone: FB-Yriicwqird-Kwlhsv Work Phone: Start: 03-02-2021 [facility] Facility : Start: 03-02-2021 Chart Update Tom browning Work Phone: QX-Mrnschlxpx-Cacwid Work Phone: Start: 02-28-2021 Patient encounter procedure Tom Conte Work Phone: LK-Aasvoxm-Xacxpnw 2100 Work Phone: Start: 01-18-2021 AUDIT Tom browning Work Phone: MK-Moqoimjoai-Fedvkh Work Phone: Start: 12-13-2020 AUDIT Tom browning Work Phone: NS-Nsrisrwfky-Anipci Work Phone: Start: 11-15-2020 End: 11-15-2020 Subsequent hospital visit by physician Xr [facility] [place] Work Phone: Radiology Comment on above: Cough [R05] Start: 11-30-2019 Patient encounter procedure Meisam Moghbelli DZ-Wqbhfllchy-Wffluz 1800 Wound Work Phone: Start: 10-14-2019 Patient encounter procedure Meisam Moghbelli UD-Rpobcxqxuk-Ihirnr 1800 Wound Work Phone: Start: 08-03-2019 Patient encounter procedure Anabela Jurado WT-Xmvmdcaycr-Onaycr 1800 Wound Work Phone: Start: 12-16-2018 Patient encounter procedure Tom Conte RF-Pberketrei-Mzqfnl Work Phone: Start: 09-29-2018 Patient encounter procedure Tom Conte QF-Xdluuzotey-Wizkpv Work Phone: Start: 08-18-2018 Patient encounter procedure Tom Conte MF-Oyrkswkmvy-Pjpmbi Work Phone: Start: 06-30-2018 Patient encounter procedure Tom Conte CH-Okajngvhgj-Mnlzey Work Phone: Patient encounter status Tom Conte Work Phone: QJ-Bmgfzmvrxz-Zhsobd Work Phone: Procedures Date Procedure Procedure Detail Performing Clinician Start: 03-18-2025 Ct heart no contrast quant eval coronry calcium Sissy Lei MD Work Phone: Start: 03-15-2025 Radiologic exam chest [address] Monie Alston DO Work Phone: Start: 03-15-[address] Monie Alston DO Work Phone: Start: 03-15-2025 SARS-CoV-2, Influenza & RSV (PCR) Dr. Monie Alston DO Work Phone: Start: 02-15-2025 Lipid 1996 panel - Serum or Plasma Ahu 1 Start: 12-08-2024 Iaad ia hepatitis b surface [...] Phone: Start: 08-08-2023 ICD CLINIC CHECK Juni Cristiano Abdullahi DO Work Phone: Start: 08-07-2023 ICD CLINIC CHECK Juni Northjessica DO Work Phone: Start: 11-21-2022 [employer] COVID-19 BIVALENT VACCINE, AGE 12+ YR Tom [...] Radiologic exam chest single view Olga Lidia Sheridan TYPE CUTTER.GAS MAKER Work Phone: Start: 03-11-2022 Thoracentesis needle/cath pleura w/imaging Manjit Field MD Work Phone: Start: 02-26-2022 Radiologic exam chest 2 views Manjit Field MD Work Phone: Start: 02-14-2022 Radiologic exam chest single view Keyla Benedictpearlsherrie TYPE CUTTER.GAS MAKER Work Phone: Start: 02-14-2022 Thoracentesis needle/cath pleura w/imaging Manjit Field MD Work Phone: Start: 02-14-2022 Cul bact xcpt urine blood/stool aerobic isol Manjit Field MD Work Phone: Start: 02-14-2022 BF MANUAL DIFF Manjit Feild MD Work Phone: Start: 02-14-2022 Cell count misc body fluids w/differential count Manjit Field MD Work Phone: Start: 02-14-2022 Glucose body fluid other than blood Manjit Field MD Work Phone: Start: 02-04-2022 Plain chest X-ray Dr. Tom Conte Work Phone: Start: 11-01-2021 Radiologic exam chest 2 views Marina Marley TYPE CUTTER.GAS MAKER Work Phone: Start: 11-01-2021 Cardiovascular stress test using pharmacologic stress agent Dr. Tom Conte Work Phone: Start: 02-28-2021 Echocardiography Tom Conte Work Phone: Start: 11-15-2020 Radiologic exam chest 2 views Waqas Alaniz TYPE CUTTER.GAS MAKER Work Phone: Start: 11-30-2019 Echocardiography Anabela Jurado Start: 11-30-2019 NM Cardiac Stress/Rest Nuclear Med Order Anabela Jurado Start: 12-16-2018 Echocardiography Tom Conte Start: 10-31-2018 Echocardiography Tom Conte Start: 01-24-2015 Defibrillator, device (physical object) ODILIA DAVILA DO Comment on above: Biotronik generator left chest Itrevia 6 [id number] Biotronik RA Setrox S 60 [id number] Biotronik RV Linox Smart [id number] 01/26/[address] by Dr Rodriguez model Ilivia Jai 7 LISBETH BRENNAN-1 [facility] [id number] #[id number] Start: 01-24-2015 Implantation of cardiac pacemaker ODILIA DANUTAGIOVANNI DO Start: 02-11-2005 History of renal transplant Kidney replaced by transplant Tom Conte MD Work Phone: Cholecystectomy ODILIA CARRILLO A DO Cholecystectomy ODILIA TIGREK A DO Dialysis catheter (physical object) ODILIA LANDEROSMARIA DEL ROSARIO DO History of cholecystectomy Hx of cholecys tectomy Dr. Tom Conte Work Phone: History of renal transplant ODILIA DAVILA DO Comment on above: x 2 History of renal transplant ODILIA DAVILA DO History of renal transplant Hx of kidney transplant Dr. Tom Conte Work Phone: Comment on above: Right- 1996. Left- 2011 History of renal transplant Kidney replaced by transplant (HHS-HCC) Loida Perea MD Work Phone: History of renal transplant Kidney replaced by transplant (HHS-HCC) Ahu 1 History of renal transplant Kidney replaced by transplant (HHS-HCC) Ahu 1 History of renal transplant Kidney replaced by transplant (HHS-HCC) Med Echo/Stress Insertion of pacemak er pulse generator Tom Conte Insertion of pulse generator of implantable cardioverter defibrillator Tom Conte Nasal septoplasty ODILIASARA HENRYA DO Parathyroid structur e (body structure) ODILIA LANDEROSMARIA DEL ROSARIO DO Parathyroidectomy ODILIA SHARP SKA DO Procedure on peritoneum JASO N TIGREMARIA DEL ROSARIO DO Comment on above: catheters inserted and remvoed Renal dialysis Kidney dialysis( Confirmed ) 14, 15 ODILIA LANDEROSMARIA DEL ROSARIO DO Comment on above: Last dialysis 08/08/15. hemodialysis SARS-CoV-2 & FLU Ant igen (Rapid) Dr. Tom Conte Work Phone: Transplant of kidney Tom Conte Transplant of kidney ODILIA Amy GAMBOA DO Plan of Treatment Date Care Activity Detail Author Start: 2038 PNEUMOCOCCAL (4 - PP SV23 if available, else PCV20) PNEUMOCOCCAL (4 - PPSV23 if available, else PCV20) [facility] Start: 2038 PNEUMOCOCCAL (4 - PP SV23 or PCV20) PNEUMOCOCCAL (4 - PPSV23 or PCV20) [facility] Start: 2038 Pneumococcal vaccination [facility] Start: 10-23-2030 DTaP/Tdap/Td Vaccine s (3 - Td or Tdap) DTaP/Tdap/Td Vaccines (3 - Td or Tdap) [facility] Start: 10-23-2030 Urine microalbumin profile [facility] Start: 04-23-2030 Evaluation and manag ement of inpatient 04/23/2030 6:00 AM EDT [place] [address] [place] [address] [facility] Work Phone: Start: 11-22-2027 Lipid 1996 panel - S david or Plasma Lipid Screening [facility] Start: 11-22-2027 Lipid panel [facility] Start: 11-22-2027 LIPID SCREEN LIPID SCREEN [facility] Start: 08-08-2026 Diabetes Screening Diabetes Screenin g [facility] Start: 07-17-2026 Diabetes Screening Diabetes Screenin g [facility] Start: 02-15-2026 Creatinine measurement Creatinine Le vianey [facility] Start: 02-15-2026 Lipid panel Lipid Panel [facility] Start: 01-20-2026 DIABETES SCREEN DIABETES SCREEN [facility] Start: 01-20-2026 Diabetes Screening Diabetes Screenin g [facility] Start: 12-08-2025 Creatinine measurement Creatinine Le vianey [facility] Start: 12-08-2025 Diabetes mellitus screening Diabetes Screening [facility] Start: 12-08-2025 Potassium measurement Potassium Leve l [facility] Start: 11-21-2025 DIABETES SCREEN DIABETES SCREEN [facility] Start: 06-27-2025 End: 06-27-2025 Social Work 06/27/2025 2:30 PM EST Social Work [facility] [address] [facility] [address] [place] [address] Rosalina Kingsley LSW [facility] Start: 05-30-2025 BP Controlled (<130/80) BP Controlle d (<130/80) [facility] Start: 05-24-2025 End: 05-24-2025 Patient encounter procedure 05/24/2025 2:00 PM EST Consult [facility] [address] [facility] [address] [place] [address] [place] [address] [place] [address] [facility] Start: 05-18-2025 Hemoglobin A1c measurement Cathleen betes: Hemoglobin A1C [facility] Start: 04-25-2025 End: 04-25-2025 Patient encounter procedure 04/25/2025 2:40 PM EST Consult [facility] [address] [place] [address] [place] [address] [place] [address] [facility] Start: 03-31-2025 End: 03-31-2025 Patient encounter procedure 03/31/2025 11:30 AM EDT Appointment [facility] [address] [place] [id number] [facility] Start: 03-31-2025 End: 03-31-2025 Patient encounter procedure [facility] Start: 03-22-2025 End: 03-22-2025 Patient encounter procedure 03/22/2025 4:00 PM EDT Appointment [facility] [address] [facility] 6th [place] [address] [facility] Start: 03-22-2025 End: 03-22-2025 ambulatory 03/22/2025 1:30 PM EDT Other [facility] [address] [facility] [address] [place] [address] [facility] Start: 03-16-2025 [facility] Start: 03-08-2025 Hepatitis B Vaccines (2 of 3 - 19+ 3-dose series) Hepatitis B Vaccines (2 of 3 - 19+ 3-dose series) [facility] Start: 02-21-2025 COVID-19 Vaccine (2024- season) COVID-19 Vaccine ( season) [facility] Start: 02-21-2025 Influenza vaccination [facility] Start: 02-15-2025 End: 02-15-2025 Patient encounter procedure [facility] Start: 02-15-2025 End: 02-15-2025 Nursing evaluation of patient and report [facility] Start: 02-12-2025 DIABETES SCREEN DIABETES SCREEN [facility] Start: 12-08-2024 [facility] Start: 11-11-2024 BP Controlled (<130/80) BP Controlle d (<130/80) [facility] Start: 08-08-2024 Complete blood count Hemoglobin/Manoj tocgat [facility] Start: 08-08-2024 Creatinine measurement Serum Creatin ine [facility] Start: 07-17-2024 BP Controlled (<130/80) BP Controlle d (<130/80) [facility] Start: 07-17-2024 Complete blood count [facility] Start: 07-17-2024 Creatinine measurement Serum Creatin ine [facility] Start: 07-17-2024 DIABETES SCREEN DIABETES SCREEN [facility] Start: 06-04-2024 BP Controlled (<130/80) BP Controlle d (<130/80) [facility] Start: 03-13-2024 BP Controlled (<130/80) BP Controlle d (<130/80) [facility] Start: 02-22-2024 COVID-19 Vaccine () COVID-19 Vaccine () [facility] Start: 02-22-2024 Covid-19 Vaccine () Covid-19 Vaccine () [facility] Start: 02-22-2024 Influenza vaccination C [facility] Start: 01-21-2024 ANNUAL PCP TEAM LEAD PROGRAMMER ANALYST FRANSICO DISEASE VISIT ANNUAL PCP TEAM CHRONIC DISEASE VISIT [facility] Start: 01-21-2024 BP CONTROLLED (<130/80) BP CONTROLLE D (<130/80) [facility] Start: 01-21-2024 Creatinine measurement Serum Creatin ine [facility] Start: 01-21-2024 SERUM CREATININE SERUM CREATININE Cl [facility] Start: 12-04-2023 LIPID SCREEN LIPID SCREEN [facility] Start: 11-22-2023 ANNUAL PCP TEAM LEAD PROGRAMMER ANALYST FRANSICO DISEASE VISIT ANNUAL PCP TEAM CHRONIC DISEASE VISIT [facility] Start: 11-22-2023 BP CONTROLLED (<130/80) BP CONTROLLE D (<130/80) [facility] Start: 11-22-2023 COLORECTAL CANCER SCREENING COLORECTAL CANCER SCREENING [facility] Comment on above: Postponed from 09/25 (Declined at this time) Start: 11-22-2023 Diabetes mellitus screening Diabetes Screening [facility] Start: 11-22-2023 Screening for malign ant neoplasm of colon Colorectal Cancer Screening [facility] Comment on above: Postponed from 09/25 (Declined at this time) Start: 11-22-2023 SERUM CREATININE SERUM CREATININE Cl [facility] Start: 11-22-2023 SHINGRIX VACCINE (1 of 2) FRANKLIN GRIX VACCINE (1 of 2) [facility] Comment on above: Postponed from 09/25 (Insurance Coverage) Start: 11-12-2023 End: 11-12-2023 Patient encounter procedure Vascular Surgery Comment on above: 1 Month S/P DRILL Pr ocedure W/ RUE Fistula & Arterial Arm Duplexes 1 month post op f/u Start: 09-26-2023 Pneumococcal vaccination Pneum ococcal Vaccine (3 of 3 - PCV20 or PCV21) [facility] Start: 09-26-2023 Pneumococcal Vaccine : 50+ (4 of 4 - PCV20 or PCV21) Pneumococcal Vaccine: 50+ (4 of 4 - PCV20 or PCV21) [facility] Start: 09-26-2023 Prostate specific an tigen measurement PSA Prostate Cancer Screening [facility] Start: 09-26-2023 Zoster Vaccines (1 of 2) Zoste r Vaccines (1 of 2) [facility] Start: 09-03-2023 SERUM CREATININE SERUM CREATININE [facility] Start: 08-27-2023 ANNUAL PCP TEAM LEAD PROGRAMMER ANALYST FRANSICO DISEASE VISIT ANNUAL PCP TEAM CHRONIC DISEASE VISIT [facility] Start: 05-29-2023 End: 08-28-2023 CREATININE BLD CREATININE BLD Lab Routine Vasculopathy Expected: 05/29/2023, Expires: 08/28/2023 [facility] Work Phone: Comment on above: Expected: 05/29/2023 , Expires: 08/28/2023 Start: 04-04-2023 Complete blood count Hemoglobin/Manoj tocrit [facility] Start: 04-04-2023 HEMOGLOBIN/HEMATOCRIT HEMOGLOBIN/HEM ATOCRIT [facility] Start: 02-21-2023 Covid-19 Vaccine ( season) Covid-19 Vaccine ( season) [facility] Start: 02-21-2023 Influ[facility] Start: 02-12-2023 SERUM CREATININE SERUM CREATININE [facility] Start: 01-20-2023 End: 03-22-2023 Comprehensive metabolic 2000 panel - Serum or Plasma [facility] Work Phone: Comment on above: Expected: 01/20/2023 , Expires: 03/22/2023 Start: 01-16-2023 COVID-19 VACCINE (4 - Booster for Pfizer series) COVID-19 VACCINE (4 - Booster for Pfizer series) [facility] Start: 01-16-2023 COVID-19 VACCINE (4 - Pfizer risk series) COVID-19 VACCINE (4 - Pfizer risk series) [facility] Start: 11-21-2022 End: 01-21-2023 Comprehensive metabolic 2000 panel - Serum or Plasma [facility] Work Phone: Comment on above: Expected: 11/21/2022 , Expires: 01/21/2023 Start: 11-21-2022 End: 01-21-2023 Hemoglobin A1c in Blood [facility] Work Phone: Comment on above: Expected: 11/21/2022 , Expires: 01/21/2023 Start: 11-21-2022 End: 01-21-2023 LIPID PANEL, NONFASTING [facility] Work Phone: Comment on above: Expected: 11/21/2022 , Expires: 01/21/2023 Start: 10-18-2022 ANNUAL PCP TEAM LEAD PROGRAMMER ANALYST FRANSICO DISEASE VISIT ANNUAL PCP TEAM CHRONIC DISEASE VISIT [facility] Start: 09-04-2022 ANNUAL PCP TEAM LEAD PROGRAMMER ANALYST FRANSICO DISEASE VISIT ANNUAL PCP TEAM CHRONIC DISEASE VISIT [facility] Start: 07-17-2022 HEMOGLOBIN/HEMATOCRIT HEMOGLOBIN/HEM ATOCRIT [facility] Start: 07-17-2022 SERUM CREATININE SERUM CREATININE Cl [facility] Start: 07-15-2022 End: 07-31-2023 Radiologic exam chest 2 views XR CHEST 2V FRONTAL/LAT Radiology Routine Pleural effusion Expected: 07/15/2022, Expires: 07/31/2023 [facility] Work Phone: Comment on above: Expected: 07/15/2022 , Expires: 07/31/2023 Start: 04-25-2022 End: 06-25-2022 CBC panel - Blood by Automated count CBC Lab Routine Pleural effusion Expected: 04/25/2022, Expires: 06/25/2022 [facility] Work Phone: Comment on above: Expected: 04/25/2022 , Expires: 06/25/2022 Start: 02-28-2022 Echocardiography Echocardiogram [facility] Start: 02-21-2022 Influenza vaccination C [facility] Start: 02-05-2022 Blood chemistry [facility] Work Phone: Start: 02-04-[address] [facility] Work Phone: Start: 02-04-2022 [facility] Work Phone: Start: 02-04-2022 Ambulation without limitation [facility] Work Phone: Start: 02-04-2022 Assessment of risk o f venous thromboembolism [facility] Work Phone: Start: 02-04-2022 Bacteria identified in Sputum by Culture [facility] Work Phone: Start: 02-04-2022 Incentive spirometry [facility] Work Phone: Start: 02-04-2022 Insertion of cathete r into peripheral vein [facility] Work Phone: Start: 02-04-2022 Measuring intake and output [facility] Work Phone: Start: 02-04-2022 Oxygen therapy [facility] Work Phone: Start: 02-04-2022 Physiotherapy of chest [facility] Work Phone: Start: 02-04-2022 Providing care accor ding to standard [facility] Work Phone: Start: 02-04-2022 Referral to braid pattern setter [facility] Work Phone: Start: 02-04-2022 [facility] Work Phone: Start: 02-04-2022 Verification routine [facility] Work Phone: Start: 02-04-2022 Admission procedure [facility] Work Phone: Start: 02-04-2022 Following clinical p athway protocol [facility] Work Phone: Start: 02-04-2022 Inhalation therapy procedure [facility] Work Phone: Start: 06-25-2021 COVID-19 VACCINE (3 - Pfizer risk 4-dose series) COVID-19 VACCINE (3 - Pfizer risk 4-dose series) [facility] Start: 06-25-2021 COVID-19 VACCINE (3 - Pfizer risk series) COVID-19 VACCINE (3 - Pfizer risk series) [facility] Start: 03-06-2021 TXPEVAL, Provider: Jing Moran, Status: Pen, Time: 3:40 PM TXPEVAL, Provider: Jing Moran, Status: Pen, Time: 3:40 PM FD-Hnhjvdkcqx-Yojox r Work Phone: Start: 02-01-2021 ECHO, Provider: MARILYN SMITH HHVI 1,MG CARD, Status: Pen, Time: 12:40 PM ECHO, Provider: MARILYN SMITH HHVI 1,MG CARD, Status: Pen, Time: 12:40 PM VM-Vntlgwawkm-Yafhh r Work Phone: Start: 02-01-2021 JOSEPHINEANNNASRIN, Provider: Soila Urena, Status: Pen, Time: 12:00 PM KIDANNSW, Provider: Soila Urena, Status: Pen, Time: 12:00 PM KZ-Wdfvjdkora-Cegdt r Work Phone: Start: 02-01-2021 KIET, Provider : Marisel Torrez, Status: Pen, Time: 11:30 AM KIET, Provider: Marisel Torrez, Status: Pen, Time: 11:30 AM OE-Gyfwtvulzp-Wspkd r Work Phone: Start: 2018 COLOGUARD (FIT-DNA) COLOGUARD (FIT-D NA) [facility] Start: 2018 Colonoscopy COLONOSCOPY [facility] Start: 2018 COLORECTAL CANCER SCREENING COLORECTAL CANCER SCREENING [facility] Start: [address] COLONOGRAPHY [facility] Start: 2018 FECAL OCCULT BLOOD FECAL OCCULT BLOO D [facility] Start: 2018 Screening for malign ant neoplasm of colon [facility] Start: 2018 SIGMOIDOSCOPY SIGMOIDOSCOPY [facility] Start: 09-26-2003 Zoledronic acid therapy ALPHA- 1 ANTITRYPSIN DEFICIENCY SCREENING [facility] Start: 1993 Hepatitis B Vaccine (1 of 3 - Risk Dialysis 4-dose series) Hepatitis B Vaccine (1 of 3 - Risk Dialysis 4-dose series) [facility] Start: 04-05-1993 Hepatitis B Vaccines (1 of 3 - 19+ 3-dose series) Hepatitis B Vaccines (1 of 3 - 19+ 3-dose series) [facility] Start: 1992 SHINGRIX VACCINE (1 of 2) FRANKLIN GRIX VACCINE (1 of 2) [facility] Start: 1992 Urine microalbumin profile DTAP,TDAP ,TD (1 - Tdap) [facility] Start: 1992 Urine screening for protein CKD: Urine Protein Screening [facility] Start: 09-26-1991 BP CONTROLLED (<130/80) BP CONTROLLE D (<130/80) [facility] Start: 09-26-1991 SPIROMETRY SPIROMETRY [facility] Start: 09-26-1983 Glaucoma screening Diabetes: R etinopathy Screening [facility] Start: 1974 MMR Vaccines (1 of 1 - Standard series) MMR Vaccines (1 of 1 - Standard series) [facility] Start: 1973 Lipid panel Lipid Panel [facility] Start: 1973 Medicare Annual Well ness Visit Medicare Annual Wellness Visit (AWV) [facility] Start: 1973 Screening for malign ant neoplasm of colon [facility] Start: 1973 Urine screening for protein Diabetes: Urine Protein Screening [facility] Bacteria identified in Body fluid by Culture BODY FLUID CULTURE AND GRAM STAIN Microbiology Routine Recurrent right pleural effusion 02/14/2022 11:28 AM EDT [facility] Work Phone: End: 12-08-2024 Blood type and Indirect antibody screen panel - Blood Type and Screen Lab Routine Once (Lab) for 1 Occurrences starting 12/08/2024 until 12/08/2024 [facility] Work Phone: Comment on above: Once (Lab) for 1 Occ urrences starting 12/08/2024 until 12/08/2024 End: 12-11-2024 CBC W Auto Differential panel - Blood CBC and Auto Differential Lab Routine Morning draw (Lab) for 3 Occurrences starting 12/09/2024 until 12/11/2024 [facility] Work Phone: Comment on above: Morning draw (Lab) f or 3 Occurrences starting 12/09/2024 until 12/11/2024 End: 06-21-2024 Ct angio abd&plvis cntrst mtrl w/wo cntrst img CTA ABD/PEL WO/W IVCON Radiology Routine Vasculopathy SVC (superior vena cava obstruction) 1 Occurrences starting 05/23/2023 until 06/21/2024 [facility] Work Phone: Comment on above: 1 Occurrences starti ng 05/23/2023 until 06/21/2024 End: 06-21-2024 Ct angiography chest w/contrast/noncontrast CTA CHEST (NONGATED) WO/W IVCON Radiology Routine Vasculopathy SVC (superior vena cava obstruction) 1 Occurrences starting 05/23/2023 until 06/21/2024 [facility] Work Phone: Comment on above: 1 Occurrences starti ng 05/23/2023 until 06/21/2024 End: 06-27-2024 Ct angiography chest w/contrast/noncontrast CTA CHEST (NONGATED) WO/W IVCON Radiology Routine Vasculopathy 1 Occurrences starting 05/29/2023 until 06/27/2024 [facility] Work Phone: Comment on above: 1 Occurrences starti ng 05/29/2023 until 06/27/2024 CYTOLOGY NON-CLOTH BLEACHING RANGE OPERATOR CHIEF CYTOLOGY NON-GY N Lab Routine 02/14/2022 11:27 AM EDT [facility] Work Phone: ECG 12 Lead ECG 12 Lead ECG Routine ESRD (end stage renal disease) (Multi) Kidney replaced by transplant ([facility]) Pre-transplant evaluation for kidney transplant Type 2 diabetes mellitus with other specified complication, unspecified whether long-term insulin use (Multi) 03/31/2025 9:33 AM EDT [facility] Work Phone: End: 06-04-2024 Echocardiography ECHO Cardiology Routine ESRD (end stage renal disease) (HCC) 1 Occurrences starting 06/04/2023 until 06/04/2024 [facility] Work Phone: Comment on above: 1 Occurrences starti ng 06/04/2023 until 06/04/2024 End: 12-08-2024 Electrocardiogram, 12-lead PRN ACS symptoms [facility] Work Phone: Comment on above: As needed until disc ontinued starting 12/08/2024 Once for 1 Occurrenc es starting 12/08/2024 until 12/08/2024 End: 12-09-2024 Hemodialysis Hemodialysis inpatient 3 Hours Dialysis Routine Once for 1 Occurrences starting 12/09/2024 until 12/09/2024 [facility] Work Phone: Comment on above: Once for 1 Occurrenc es starting 12/09/2024 until 12/09/2024 IR INTERVENTIONAL RADIOLOGY CONSULT IR INTERVENTIONAL RADIOLOGY CONSULT Radiology Routine Pleural effusion Ordered: 06/11/2022 [facility] Work Phone: Comment on above: Ordered: 06/11/2022 IR INTERVENTIONAL RADIOLOGY CONSULT IR INTERVENTIONAL RADIOLOGY CONSULT Radiology Routine Pleural effusion Ordered: 06/21/2022 [facility] Work Phone: Comment on above: Ordered: 06/21/2022 IR INTERVENTIONAL RADIOLOGY CONSULT IR INTERVENTIONAL RADIOLOGY CONSULT Radiology Routine Pleural effusion Ordered: 07/25/2022 [facility] Work Phone: Comment on above: Ordered: 07/25/2022 End: 12-11-2024 Magnesium [Mass/volume] in Serum or Plasma Magnesium Lab Routine Morning draw (Lab) for 3 Occurrences starting 12/09/2024 until 12/11/2024 [facility] Work Phone: Comment on above: Morning draw (Lab) f or 3 Occurrences starting 12/09/2024 until 12/11/2024 End: 12-08-2024 Magnesium [Mass/volume] in Serum or Plasma Magnesium Lab Routine Evening draw (Lab) for 1 Occurrences starting 12/08/2024 until 12/08/2024 [facility] Work Phone: Comment on above: Evening draw (Lab) f or 1 Occurrences starting 12/08/2024 until 12/08/2024 End: 07-03-2024 NM CARDIAC PERF STRESS/PHARM NM CARDIAC PERF STRESS/PHARM Radiology Routine Encounter for screening for cardiovascular disorders ESRD (end stage renal disease) (HCC) 1 Occurrences starting 06/04/2023 until 07/03/2024 [facility] Work Phone: Comment on above: 1 Occurrences starti ng 06/04/2023 until 07/03/2024 Patient Education [facility] Work Phone: Patient referral [facility] Work Phone: End: 11-17-2022 Radiologic exam chest 2 views XR CHEST 2V FRONTAL/LAT Radiology Routine History of pneumonia 1 Occurrences starting 10/18/2021 until 11/17/2022 [facility] Work Phone: Comment on above: 1 Occurrences starti ng 10/18/2021 until 11/17/2022 End: 05-25-2023 Radiologic exam chest 2 views XR CHEST 2V FRONTAL/LAT Radiology Routine Pleural effusion 1 Occurrences starting 04/25/2022 until 05/25/2023 [facility] Work Phone: Comment on above: 1 Occurrences starti ng 04/25/2022 until 05/25/2023 End: 06-28-2023 Radiologic exam chest 2 views XR CHEST 2V FRONTAL/LAT Radiology Routine Pleural effusion 1 Occurrences starting 05/29/2022 until 06/28/2023 [facility] Work Phone: Comment on above: 1 Occurrences starti ng 05/29/2022 until 06/28/2023 End: 09-18-2023 Radiologic exam chest 2 views XR CHEST 2V FRONTAL/LAT Radiology Routine Pleural effusion 1 Occurrences starting 08/19/2022 until 09/18/2023 [facility] Work Phone: Comment on above: 1 Occurrences starti ng 08/19/2022 until 09/18/2023 End: 10-02-2023 Radiologic exam chest 2 views XR CHEST 2V FRONTAL/LAT Radiology Routine Pleural effusion 1 Occurrences starting 09/02/2022 until 10/02/2023 [facility] Work Phone: Comment on above: 1 Occurrences starti ng 09/02/2022 until 10/02/2023 End: 12-11-2024 Renal function 2000 panel - Serum or Plasma Renal Function Panel Lab Routine Morning draw (Lab) for 3 Occurrences starting 12/09/2024 until 12/11/2024 [facility] Work Phone: Comment on above: Morning draw (Lab) f or 3 Occurrences starting 12/09/2024 until 12/11/2024 End: 12-08-2024 Renal function 2000 panel - Serum or Plasma Renal function panel Lab Routine Evening draw (Lab) for 1 Occurrences starting 12/08/2024 until 12/08/2024 [facility] Work Phone: Comment on above: Evening draw (Lab) f or 1 Occurrences starting 12/08/2024 until 12/08/2024 Thoracentesis THORACENTESIS Cardiology Routine Recurrent right pleural effusion Ordered: 02/26/2022 [facility] Work Phone: Comment on above: Ordered: 02/26/2022 Thoracentesis needle /cath pleura w/imaging IMAGING GUIDED THORACENTESIS Radiology Routine Recurrent right pleural effusion Ordered: 03/05/2022 [facility] Work Phone: Comment on above: Ordered: 03/05/2022 End: 08-08-2024 US AV fistula US A/V FISTULA GRAFT [facility]L [facility] Vascular Lab Routine ESRD (end stage renal disease) (HCC) Arteriovenous fistula, acquired (HCC) 1 Occurrences starting 08/08/2023 until 08/08/2024 [facility] Work Phone: Comment on above: 1 Occurrences starti ng 08/08/2023 until 08/08/2024 End: 10-22-2024 US AV fistula US A/V FISTULA GRAFT [facility] Vascular Lab Routine ESRD (end stage renal disease) (HCC) 1 Occurrences starting 10/23/2023 until 10/22/2024 [facility] Work Phone: Comment on above: 1 Occurrences starti ng 10/23/2023 until 10/22/2024 End: 11-22-2023 US CAROTID ARTERIES MIA [facility] US CAROTID ARTERIES [facility]IA [facility] Vascular Lab Routine Bilateral carotid bruits 1 Occurrences starting 11/21/2022 until 11/22/2023 [facility] Work Phone: Comment on above: 1 Occurrences starti ng 11/21/2022 until 11/22/2023 End: 03-31-2025 US Heart Transthoracic [facility] Work Phone: Comment on above: Once for 1 Occurrenc es starting 03/31/2025 until 03/31/2025 End: 06-04-2024 US LEG VEIN MAP MIA [facility] US LEG VEIN MAP MIA [facility] Vascular Lab Routine ESRD (end stage renal disease) (HCC) 1 Occurrences starting 06/04/2023 until 06/04/2024 [facility] Work Phone: Comment on above: 1 Occurrences starti ng 06/04/2023 until 06/04/2024 End: 10-22-2024 US Lower extremity artery US LEG ARTERIAL PERIPH [facility] Vascular Lab Routine ESRD (end stage renal disease) (HCC) 1 Occurrences starting 10/23/2023 until 10/22/2024 [facility] Comment on above: 1 Occurrences starti ng 10/23/2023 until 10/22/2024 End: 08-08-2024 US Upper extremity artery US ARM ARTERIAL [facility] Vascular Lab Routine ESRD (end stage renal disease) (HCC) Arteriovenous fistula, acquired (HCC) 1 Occurrences starting 08/08/2023 until 08/08/2024 [facility] Work Phone: Comment on above: 1 Occurrences starti ng 08/08/2023 until 08/08/2024 End: 10-22-2024 US Upper extremity artery US ARM ARTERIAL UNL [facility] Vascular Lab Routine Arteriovenous fistula, acquired ([facility]) 1 Occurrences starting 10/23/2023 until 10/22/2024 [facility] Work Phone: Comment on above: 1 Occurrences starti ng 10/23/2023 until 10/22/2024 [facility] Immunizations Immunization Date Immunization Notes Care Provider Bryce coreas 11-21-2022 COVID-19 vaccine, ag e 12+ yr, bivalent (PFIZER-BIONTECH) Tom Conte MD Work Phone: [facility] 05-28-2021 SARS-CoV-2 mRNA (tozinameran) vaccine DR HARVEY HARVEY MD [facility] 05-07-2021 SARS-CoV-2 mRNA (tozinameran) vaccine DR HARVEY HARVEY MD [facility] 04-23-2021 Covid (Pfizer) Dr. Tom mcrae Work Phone: [facility] 10-23-2020 tetanus toxoid, redu sahara diphtheria toxoid, and acellular pertussis vaccine, adsorbed Manjit Field MD Work Phone: [facility] 10-23-2020 tetanus toxoid, redu sahara diphtheria toxoid, and acellular pertussis vaccine, adsorbed; Translations: [Boostrix (Tdap)] ODILIA DAVILA DO [facility] 05-07-2020 COVID-19 original vaccine, age 12+ yr, monovalent (PFIZER-BIONTECH - PURPLE TOP) Manjit Field MD Work Phone: [facility] 03-23-2019 influenza virus vacc ine, unspecified formulation DR HARVEY HARVEY MD [facility] 03-23-2019 influenza, seasonal, injectable Tom Conte Work Phone: [facility] 04-07-2017 pneumococcal conjuga te vaccine, [address] Tom Conte Work Phone: [facility] 10-23-2016 pneumococcal conjuga te vaccine, 13 valent Tom Conte Work Phone: [facility] 05-23-[address] Tom Conte Work Phone: [facility] 05-23-2016 influenza, seasonal, injectable, preservative free Manjit Field MD Work Phone: [facility] 06-03-2015 influenza nasal, unspecified formulation Manjit Field MD Work Phone: [facility] 06-03-2015 influenza virus vacc ine, unspecified formulation Tom Conte Work Phone: [facility] 06-03-2015 pneumococcal polysaccharide vaccine, 23 valent Tom Conte Work Phone: [facility] 04-11-[address] Tom Conte Work Phone: [facility] 04-11-2015 influenza, seasonal, injectable Manjit Field MD Work Phone: [facility] 03-23-[address] Tom Conte Work Phone: [facility] 03-23-2014 influenza, seasonal, injectable Manjit Field MD Work Phone: [facility] 02-24-2014 pneumococcal polysaccharide vaccine, 23 valent ODILIA DURESKA DO [facility] 11-19-2013 tetanus toxoid, redu sahara diphtheria toxoid, and acellular pertussis vaccine, adsorbed ODILIA DURESKA DO [facility] 12-04-2007 pneumococcal polysaccharide vaccine, 23 valent Tom Conte MD Work Phone: [facility] 06-23-2007 pneumococcal polysaccharide vaccine, 23 valent ODILIA TIGREKA DO [facility] 05-16-2003 influenza virus vacc ine, unspecified formulation Tom Conte MD Work Phone: [facility] 06-23-1996 pneumococcal polysaccharide vaccine, 23 valraisa Field MD Work Phone: [facility] 06-23-[address] Shawn Conte Work Phone: [facility] Work Phone: 06-23-1996 pneumococcal vaccine , unspecified formulation Dr. Tom Conte Work Phone: [facility] Payers Date Payer Category Payer Private Health Insurance [id number] 2024 Unknown 2024 Self-pay [id number] 2023 Dual Eligibility Medicare/Medicaid Organization [id number] 2023 Medicare (Managed Care) [facility] [id number] 2023 Unknown [id number] 2021 Medicaid MEDICAID [facility] MEDICAID [id number] 2021-Present [phone] [address] [place] [address] Medicaid [id number] 2021 Medicaid [id number] 2017 Medicaid [id number] 2016 Medicare [id number] 2007 Medicare MEDICARE MEDICAR E A AND B [id number] 2007-Present [phone] [address] [address] [place] [address] Medicare [id number] 2007 Medicare [id number] 2007 Medicare [id number] 1.13.159.2 .[id number] 1973 Unknown [id number] 2.16.840.1.722036.3.579.2 .594 1973 Unknown [id number] 2.16.840.1.069585.3.579.2 .651 1973 Unknown [id number] 2.16.840.1.943453.3.579.2 .651 1973 Unknown [id number] 2.16.840.1.523307.3.579.2 .651 1973 Unknown [id number] 2.16.840.1.897900.3.579.2 .651 1973 Unknown [id number] 2.16.840.1.809833.3.579.2 .651 1973 Unknown [id number] 2.16.840.1.576347.3.579.2 .651 1973 Unknown [id number] 2.16.840.1.018889.3.579.2 .651 1973 Unknown [id number] 2.16.840.1.878923.3.579.2 .627 1973 Unknown [id number] 2.16.840.1.950684.3.579.2 .627 1973 Unknown [id number] 2.16.840.1.129066.3.579.2 .1973 Unknown [id number] 2.16.840.1.752697.3.579.2 .1973 Unknown [id number] .16.840.1.215512.3.579.2 1973 Unknown [id number] 2.16.840.1.981830.3.579.2 1973 Unknown [id number] .16840.1.027289.3.579.2 1973 Unknown [id number] 2.16840.1.217547.3.579.2 1973 Unknown [id number] .840.1.760367.3.579.2 1973 Unknown [id number] 2.840.1.236853.3.579.2 1973 Unknown [id number] .840.1.719955.3.579.2 1973 Unknown [id number] .840.1.178046.3.579.2 1973 Unknown [id number] .840.1.881703.3.579.2 1973 Unknown [id number] .840.1.278004.3.579.2 1973 Unknown [id number] .840.1.752916.3.579.2 1973 Unknown [id number] .840.1.556641.3.579.2 1973 Unknown [id number] .16840.1.844113.3.579.2 1973 Unknown [id number] 2.16840.1.465776.3.579.2 1973 Unknown [id number] 2.16840.1.028509.3.579.2 .627 1973 Unknown [id number] 2.16.840.1.187187.3.579.2 .1241 1973 Unknown [id number] 2.16.840.1.875327.3.579.2 .1973 Unknown [id number] 2.16.840.1.184477.3.579.2 .1973 Unknown [id number] 2.16.840.1.312833.3.579.2 .1973 Unknown [id number] 2.16.840.1.021078.3.579.2 .1973 Unknown [id number] 2.16840.1.194687.3.579.2 .1973 Unknown [id number] 2.840.1.131499.3.579.2 .1973 Unknown [id number] 2.16840.1.343566.3.579.2 .1244 1973 Unknown [id number] 2.16840.1.219280.3.579.2 .1244 1973 Unknown [id number] 2.16840.1.708808.3.579.2 .1244 1973 Unknown [id number] 2.840.1.668881.3.579.2 .1244 1973 Unknown [id number] 2.16840.1.590345.3.579.2 .1244 1973 Unknown [id number] 2.16840.1.336665.3.579.2 .1244 1973 Unknown [id number] 2.16.840.1.124944.3.579.2 .1244 1973 Unknown [id number] 2.16840.1.879674.3.579.2 .1244 1973 Unknown [id number] 2.16.840.1.412746.3.579.2 .1245 1973 Unknown [id number] 2.16.840.1.664138.3.579.2 .1245 1973 Unknown [id number] 2.16.840.1.448327.3.579.2 .1245 Unknown [id number] 2.16.840.1.389937.3.579.2 .462 Unknown [id number] 2.16.840.1.886428.3.579.2 .462 Unknown [id number] 2.16.840.1.294614.3.579.2 .462 Unknown [id number] 2.16.840.1.950374.3.579.2 .462 Unknown [id number] 2.16.840.1.848479.3.579.2 .462 Unknown [id number] 2.16.840.1.607204.3.579.2 .462 Unknown [id number] 2.16.840.1.940081.3.579.2 .462 Unknown [id number] 2.16.840.1.613397.3.579.2 .462 Unknown [id number] 2.16.840.1.870598.3.579.2 .462 Unknown [id number] 2.16.840.1.399713.3.579.2 .462 Social History Date Type Detail Facility Assertion Unknown if ever smoked [facility] Work Phone: Start: 12-07-2018 End: 03-15-2025 Light tobacco smoker (finding) [facility] Sex Assigned At [facility] Start: 12-20-2014 End: 04-01-2024 Tobacco smoking status INIS Smokes tobacco daily [facility] History of tobacco use Cigarette Smoker C [facility] Start: 12-20-2014 End: 02-15-2025 Cigarettes smoked current (pack per day) - Reported 0.5 [facility] Start: 12-20-2014 End: 04-01-2024 Tobacco use and exposure Smokeless tobacco non-user [facility] Start: 09-04-2021 End: 05-30-2024 Alcohol intake Current non-drinker of alcohol (finding) [facility] Start: 10-04-2020 End: 09-02-2022 History SDOH Alcohol Frequency 1 [facility] Start: 10-04-2020 History SDOH Alcohol Std Drinks 98 [facility] Start: 10-04-2020 End: 08-26-2022 History SDOH Social Connections Phone 5 [facility] Start: 10-04-2020 End: 09-02-2022 History SDOH Social Connections Membership 2 [facility] Start: 10-04-2020 History SDOH Social Connections Living 8 [facility] Start: 10-04-2020 End: 08-26-2022 History SDOH Physical Activity DPW 7 [facility] Start: 10-04-2020 End: 08-26-2022 History SDOH Physical Activity MPS 3 [facility] Start: 10-03-2020 Education 12 [facility] Start: 07-11-2020 End: 02-12-2022 Tobacco Comment off and on, less than half of pack [facility] Start: 1975 Sex Assigned At Not on file C [facility] Start: 10-16-2020 End: 05-23-2022 Exposure to SARS-CoV-2 (event) Not sure [facility] Start: 08-21-2021 End: 09-19-2022 Tobacco smoking status NHIS Unknown if ever smoked [facility] Start: 12-02-2016 None [facility] Start: 12-02-2016 Roommate [facility] Start: 10-20-2020 Non-smoker [facility] Start: 1975 Sex Assigned At Male W [facility] Start: 08-26-2022 History SDOH Alcohol Std Drinks 0 [facility] Start: 08-26-2022 End: 09-02-2022 History SDOH Stress 4 [facility] Start: 08-26-2022 End: 02-15-2025 Social connection and isolation panel [facility] Do you belong to any clubs or organizations such as episcopalian groups, unions, fraternal or athletic groups, or school groups? No [facility] Are you now , , , , never or living with a partner? [facility] How often to you hav e a drink containing alcohol? Never [facility] Start: 05-17-[address] inks containing alcohol do you have on a typical day? Patient does not drink [facility] How hard is it for y ou to pay for the very basics like food, housing, medical care, and heating Not very hard [facility] Do you feel stress - tense, restless, nervous, or anxious, or unable to sleep at night because your mind is troubled all the time - these days [OSQ] Rather much [facility] (I/We) worried jame er (my/our) food would run out before (I/we) got money to buy more. Never true [facility] Start: 05-02-2021 Gender identity Identifies as male gender (finding) [facility] Start: 05-02-2021 Sexual orientation Heterosexual (fin ding) [facility] Start: 07-17-2023 Tobacco Comment off and on, co uple cigarettes per day [facility] Are you now , , , , never or living with a partner? Living with partner [facility] Do you feel stress - tense, restless, nervous, or anxious, or unable to sleep at night because your mind is troubled all the time - these days [OSQ] Only a little [facility] Start: 04-01-2008 End: 10-13-2024 Sex Male (finding) [facility] Start: 12-23-2024 End: 01-14-2025 Tobacco smoking status Ex-smoker (finding) [facility] [place] Comment on above: Quir smoking 11/2024 History of tobacco use Current smoker [facility] Work Phone: Start: 02-15-2025 End: 03-23-2025 Alcoholic beverage intake Ex-drinker (finding) [facility] Work Phone: Do you feel stress - tense, restless, nervous, or anxious, or unable to sleep at night because your mind is troubled all the time - these days [OSQ] To some extent [facility] Work Phone: Start: 02-15-2025 Tobacco Comment Using nicotine patches for the past 3 months to assist with quitting. [facility] Work Phone: Start: 04-12-2025 Not applicable (qualifier value) [facility] Medical Equipment Procedure Code Equipment Code Equipment Origin al Text Equipment Identifier Dates FDA Start: 09-30-2017 FDA Start: 09-30-2017 Catheter [place] Arnett Neck Curl Cath 15fr 180d Silicone 62.5cm Dialysis 2 - [id number] Start: 07-18-2020 FDA Start: 09-30-2017 SUTURE,LIGA [...] 1 Insertion Tray Catheter Peritoneal Pleural - [id number] Start: 04-04-2022 SUTURE,LIGA CLIP MED [id number] [...] 1 Insertion Tray Catheter Peritoneal Pleural - [id number] Start: 06-25-2022 SUTURE,LIGA CLIP MED LT200 [...] Unknown 09/30/17 Unknown Unknown FDA Start: 09-30-2017 [id number] Itrev ia 7 [id number] Start: 02-03-2015 Unknown Unknown 09/30/17 Unknown [...] SUTURE,LIGA CLIP SM LT-100 FDA Start: 02-05-2018 Goals Date Patient Goal Desired Activity /State Personal health goal Functional Status Date Assessment Result Facility 04-12-2025 Functional Status Assistive Device None A [facility] 04-12-2025 [facility] 04-12-2025 Functional Status 3pm-3am [facility] 02-15-2025 Patient Health Questionnaire 2 item (PHQ-2) [Reported] [facility] Work Phone: 02-15-2025 Total score [AUDIT-C] 0 02/16/20 25 11:27 AM Nanci Palmer LSW [facility] Work Phone: 12-08-2024 [place] - suicide severity rating scale screener - recent [C-SSRS] [facility] Work Phone: 08-08-2023 Are you deaf, or do you have serious difficulty hearing No 08/08/2023 6:21 PM Desiree Bentley, RN No [facility] 08-08-2023 Are you blind, or do you have serious difficulty seeing, even when wearing glasses No 08/08/2023 6:21 PM Desiree Bentley, RN No [facility] 08-08-2023 Do you have serious difficulty walking or climbing stairs Yes 08/08/2023 6:21 PM Desiree Bentley, MADONNA Yes [facility] 08-08-2023 Do you have difficul ty dressing or bathing Yes 08/08/2023 6:21 PM Desiree Bentley, MADONNA Yes [facility] 08-08-2023 Because of a physica l, mental, or emotional condition, do you have difficulty doing errands alone such as visiting a physician's office or shopping No 08/08/2023 6:21 PM Desiree Bentley, MADONNA No [facility] 01-16-2023 Functional Status Independent [facility] 01-16-2023 Functional Status ID band on, Allergy Band on, Call device within reach, Bed in low position, Wheels locked, Upper/Half-Length side-rails up, Visitor at bedside [facility] 12-28-2022 Functional Status Independent [facility] 12-09-2022 Functional Status Up ad carolyn [facility] 12-09-2022 Functional Status Standard Safet y ID band on, Allergy Band on, Call device within reach, Bed in low position, Wheels locked [facility] 08-31-2022 Functional Status Standard Safet y ID band on, Allergy Band on, Call device within reach, Bed in low position, Wheels locked, Upper/Half-Length side-rails up, Phone within reach, personal items within reach, Bedside Cart Locked, Visitor at bedside [facility] 08-15-2022 Functional Status Standard Safet y ID band on, Allergy Band on, Call device within reach, Bed in low position, Wheels locked, Bedside Cart Locked, Visitor at bedside, Safety level maintained [facility] 02-04-2022 Functional status Bedrest [facility] Work Phone: 01-27-2022 Functional Status Standard Safet y ID band on, Allergy Band on, Call device within reach, Bed in low position, Wheels locked, Upper/Half-Length side-rails up, Bedside Cart Locked, Visitor at bedside, Safety level maintained [facility] 10-11-2021 Functional Status [facility] blue [facility] Work Phone: [facility] Work Phone: NEGATED: Highlighted row Functional performance Functional status health issues are not documented Disease [facility] Work Phone: Mental Status Date Assessment Result Facility 04-12-2025 Mental Status Orientation [address] 04-12-2025 Mental Status [facility] 08-08-2023 Because of a physical, mental, or emotional condition, do you have serious difficulty concentrating, remembering, or making decisions 08/08/2023 6:21 PM Desiree Bentley RN [facility] 01-16-2023 Mental Status Orientation [address] 01-16-2023 Mental Status [facility] 12-28-2022 Mental Status Orientation [address] 12-09-2022 Mental Status Orientation [address] 12-09-2022 Mental Status [facility] 08-31-2022 Mental Status Orientation [address] 08-15-2022 Mental Status Oriented [address] 07-30-2022 Cognitive function Voice/Name [facility] Work Phone: 06-29-2022 Cognitive function Level Of Cons ciousness Awake;Alert;Appropriate [facility] Work Phone: 02-04-2022 Cognitive function Voice/Name [facility] Work Phone: 01-27-2022 Mental Status Oriented x [address] [place] [address] 10-11-2021 Mental Status Yana [facility] norma Li NEGATED: Highlighted row Cognitive function [Interpretation] Cognitive status health issues are not documented Disease [facility] Work Phone: Clinical Notes 02-03-2015 to 04-12-2025 Note Date & Type Note Facility 04-12-2025 Hospital Discharg e instructions Patient Education 04/12/2025 21:45:24 Shortness of Breath (Dyspnea) Shortness of Breath (Dyspnea) Shortness of breath is the feeling that you can't catch your breath or get enough air. It is also known as dyspnea. Dyspnea can be caused by many different conditions. They include: Acute asthma attack Worsening of chronic lung diseases such as chronic bronchitis and emphysema Heart failure. This is when weak heart muscle allows extra fluid to collect in the lungs. Panic attacks or anxiety. Fear can cause rapid breathing (hyperventilation). Pneumonia, or an infection in the lung tissue Exposure to toxic substances, fumes, smoke, or certain medicines Blood clot in the lung (pulmonary embolism). This is often from a piece of blood clot in a deep vein of the leg (deep vein thrombosis) that breaks off and travels to the lungs. Heart attack or heart-related chest pain (angina) Anemia Collapsed lung (pneumothorax) Dehydration Based on your visit today, the exact cause of your shortness of breath is not certain. Your tests don t show any of the serious causes of dyspnea. You may need other tests to find out if you have a serious problem. It s important to watch for any new symptoms or symptoms that get worse. Follow up with your healthcare provider as directed. Home care Follow these tips to take care of yourself at home: When your symptoms are better, go back to your usual activities. If you smoke, you should stop. Join a quit-smoking program or ask your healthcare provider for help. Eat a healthy diet and get plenty of sleep. Get regular exercise. Talk with your healthcare provider before starting to exercise, especially if you have other medical problems. Cut down on the amount of caffeine and stimulants you consume. Follow-up care Follow up with your healthcare provider, or as advised. If tests were done, you will be told if your treatment needs to be changed. You can call as directed for the results. If an X-ray was taken, a specialist will review it. You will be notified of any new findings that may affect your care. Call 911 Shortness of breath may be a sign of a serious medical problem. For example, it may be a problem with your heart or lungs. Call 911 if you have worsening shortness of breath or trouble breathing, especially with any of the symptoms below: Confusion or difficulty waking Fainting or loss of consciousness. Fast or irregular heartbeat Coughing up blood Pain in your chest, arm, shoulder, neck, or upper back Sweating When to seek medical advice Call your healthcare provider right away if any of these occur: Slight shortness of breath or wheezing Redness, pain or swelling in your leg, arm, or other body area Swelling in both legs or ankles Fast weight gain Dizziness or weakness Fever of 100.4 F (38 C) or higher, or as directed by your healthcare provider [phone] [employer]. [address] [place] [address]. All rights reserved. This information is not intended as a substitute for professional medical care. Always follow your healthcare professional's instructions. Follow Up Care 04/12/2025 15:21:24 With:MONIE ALSTON DO Address: [address] [place] [phone] When:2-4 days [facility] 04-12-2025 Emergency department Discharge summary Discharge Instructions Thank you for allowing [facility] to assist you with your healthcare needs. The following is important discharge information regarding your hospital visit. Diagnosis from Today's Visit Shortness of breath What to Do Next Instructions from Your Care Team No qualifying data available. Post Acute Orders No qualifying data available. You Need to Schedule the Following Appointments Follow Up with MONIE ALSTON DO When:Within 2-4 days Where:[address] [place] [phone] Allergies penicillin (Moderate) Anaphylaxis, rash Contrast dye [...] medication providers or retail pharmacies. Education Materials Shortness of Breath (Dyspnea) Shortness of breath is the feeling that you can't catch your breath or get enough air. It is also known as dyspnea. Dyspnea can be caused by many different conditions. They include: Acute asthma attack Worsening of chronic lung diseases such as chronic bronchitis and emphysema Heart failure. This is when weak heart muscle allows extra fluid to collect in the lungs. Panic attacks or anxiety. Fear can cause rapid breathing (hyperventilation). Pneumonia, or an infection in the lung tissue Exposure to toxic substances, fumes, smoke, or certain medicines Blood clot in the lung (pulmonary embolism). This is often from a piece of blood clot in a deep vein of the leg (deep vein thrombosis) that breaks off and travels to the lungs. Heart attack or heart-related chest pain (angina) Anemia Collapsed lung (pneumothorax) Dehydration Based on your visit today, the exact cause of your shortness of breath is not certain. Your tests don t show any of the serious causes of dyspnea. You may need other tests to find out if you have a serious problem. It s important to watch for any new symptoms or symptoms that get worse. Follow up with your healthcare provider as directed. Home care Follow these tips to take care of yourself at home: When your symptoms are better, go back to your usual activities. If you smoke, you should stop. Join a quit-smoking program or ask your healthcare provider for help. Eat a healthy diet and get plenty of sleep. Get regular exercise. Talk with your healthcare provider before starting to exercise, especially if you have other medical problems. Cut down on the amount of caffeine and stimulants you consume. Follow-up care Follow up with your healthcare provider, or as advised. If tests were done, you will be told if your treatment needs to be changed. You can call as directed for the results. If an X-ray was taken, a specialist will review it. You will be notified of any new findings that may affect your care. Call 911 Shortness of breath may be a sign of a serious medical problem. For example, it may be a problem with your heart or lungs. Call 911 if you have worsening shortness of breath or trouble breathing, especially with any of the symptoms below: Confusion or difficulty waking Fainting or loss of consciousness. Fast or irregular heartbeat Coughing up blood Pain in your chest, arm, shoulder, neck, or upper back Sweating When to seek medical advice Call your healthcare provider right away if any of these occur: Slight shortness of breath or wheezing Redness, pain or swelling in your leg, arm, or other body area Swelling in both legs or ankles Fast weight gain Dizziness or weakness Fever of 100.4 F (38 C) or higher, or as directed by your healthcare provider [phone] [employer]. [address] [place] [address], [place] [address]. All rights reserved. This information is not intended as a substitute for professional medical care. Always follow your healthcare professional's instructions. Additional Information VACCINATE! IT SAVES LIVES! Members of the community who have not yet received the COVID-19 vaccine and would like to receive it can visit one of [facility] vaccine clinics. There are many vaccine clinic locations within the [facility]. For locations and available times, please visit [email or web address] It is important to note that some COVID mobile vaccine clinics are held outdoors and may be canceled in rainy or stormy conditions. To learn more about pediatric vaccinations (ages 5-11), we invite you to visit the [facility] webpage. [email or web address] To learn more about the COVID-19 vaccine, we invite you to visit the CDC website for a list of frequently asked questions. https://www.cdc.gov/coronavirus/ 2019-ncov/vaccines/faq.html [facility] Patient Portal Access Instructions: Stay connected with your healthcare team and access your personal medical information anytime with the [facility] Patient Portal. If you would like a full copy of your medical records please contact the [facility] Medical Records Department Friday through Friday between 8a.m. and 4:30p.m. Please follow the directions below to access the portal: 1.Access the email account you provided upon registration to the hospital.2.Look for an invitation email from [facility].3.Open the email and access the invitation link: Accept Invitation to [facility]4.Fill in the required luis to create your account. To access your account, visit [email or web address] or scan the QR code above. Click the blue button labeled "Access Patient Portal" and then log in with the username [...] you will allow to register on the [facility] Patient Portal for access to your information. You can also access the [facility] Patient Portal on the [employer] kyleigh. Simply click on "Health Records" under "Health Data" and then click on the [facility] logo. HOW TO SAFELY DISPOSE OF PRESCRIPTION [...] Call your local pharmacy or go to [email or web address] to find one close to you.3.Make use of household items: Use cat litter or old coffee grounds to dispose medications if other options are not available. Mix your drugs with these household products, seal them in an airtight container and throw it into the garbage. Call [facility]: [phone] to be sure your drugs can be [...] a CHART COPY Signatures Patient Education Materials Shortjessica of Breath (Dyspnea) Medication Leaflets My discharge plan and instructions have been reviewed and explained to me and I,CARLITOS SWEENEY understand my current condition and have read and understand these discharge instructions. I have received a written copy of the plan/instructions. If I have questions, I am aware that I should contact my doctor. 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 Cardiomediastinal silhouette is unchanged in size. Persistent to mild increased mid and lower lung field opacities. Similar appearing blunting of the right costophrenic angle. Osseous structures grossly unchanged. IMPRESSION: Persistent to mild increased mid and lower lung field opacities. Interpreted by: Lyle Braswell Preliminary Report By: Lyle Braswell Electronically signed By Lyle Braswell Dictated Date: 04/12/2025 7:17:10 PM Prelim Date: 04/12/2025 7:20:43 PM Sign Date: 04/12/2025 7:20:43 PM Ordering Provider: ANITHA KIM RP [id number] Note* Exam Date Time Procedure Performing Provider Status 04/12/25 6:16 PM EKG (ED) - VERITO LOMELI MD; Auth (Verified) ECG Final Report SINUS RHYTHM LAE, CONSIDER BIATRIAL ENLARGEMENT LVH WITH SECONDARY REPOLARIZATION ABNORMALITY BORDERLINE PROLONGED QT INTERVAL Electronic Signature: VERITO NAPIER MD 04/12/2025 20:35:59 [id number] [facility] [address], [address] [place], [place] [address] OFFICE VISIT Date of Service: 04/11/25 MR#: [id number] Acct: [id number] Name: CARLITOS SWEENEY Rep #: [id number] : 1975 Provider: DEBBIE Dow Age/Sex: 49/M [place] [facility] Status: Signed Intake Vital Signs 03/15/25 21:21 04/11/25 14:39 Height 5 ft 11 in 5 ft 11 in Weight: 160 lb BMI 22.3 BP 154/80 H Blood Pressure Location Lt brachial Position Sitting Pulse 82 Pulse Source Monitor Temp 97.6 F L Temp Source Oral Pulse Oximetry (%) 98 Oxygen Delivery Method room air Intake Visit Reasons: SINUS COMPLAINT/CHEST CONGESTION/COUGH Chief Complaint: Sinus ISsues Accompanied by: Self Allergies Iodinated Contrast Media (CONTRASTS) Allergy (Verified 04/11/25 14:27) Fever and skin rash Penicillins Allergy (Verified 04/11/25 14:27) Anaphylaxis cyclobenzaprine (From Flexeril) Adverse Reaction (Verified 04/11/25 14:27) dizzy, faints tramadol (From Ultram) Adverse Reaction (Verified 04/11/25 14:27) Rash Medications ?Medication ?Instructions ?Recorded ?Confirmed ?Type acetaminophen 325 mg tablet 650 mg PO Q4H PRN Pain 04/11/25 History sevelamer carbonate 800 mg tablet 800 mg PO TID KIDNEY DISEASE 08/21/21 04/11/25 History aspirin 81 mg tablet,delayed 81 mg PO DAILY 02/04/24 1 History release (Adult Low Dose Aspirin) Held on 03/15/25. Instructions: PACEMAKER BATTERY CHANGE atorvastatin 40 mg tablet (Lipitor) 40 mg PO DAILY 04/11/25 History albuterol sulfate 90 mcg/actuation 2 puff inhalation Q 4H PRN PRN 12/08/24 04/11/25 History aerosol inhaler wheezing carvedilol 3.125 mg tablet 3.125 mg PO BID 12/08/24 History isosorbide mononitrate 30 mg 30 mg PO BID 12/08/24 History tablet,extended release 24 hr nicotine 21 mg/24 hr daily 1 patch topical DAILY 12/0804/11/25 History transdermal patch buspirone 5 mg tablet 5 mg PO TID 03/15/25 5 History hydralazine 25 mg tablet 25 mg PO TID 03/15/25 History ondansetron HCl 4 mg tablet 4 mg PO Q8H PRN PRN nausea and 03/15/25 04/11/25 History vomiting doxycycline hyclate 100 mg tablet 100 mg PO BID 10 day s #20 tabs 03/16/25 04/11/25 Rx benzonatate 200 mg capsule 200 mg PO TID PRN cough #20 caps 04/11/25 04/11/25 Rx methylprednisolone 4 mg tablets in See Rx Instructions PO PER PKG DIR 04/11/25 04/11/25 Rx a dose pack (Medrol (Chetan)) #21 tabs Nurse's Note: Congestion, cough, coughing up clear mucus. X3 days PFSH Medical History Inferior vena caval stenosis [...] rejection Surgical History Hx of cardiac catheterization (~09/26/22) S/P internal cardiac defibrillator procedure Presence of [...] in: walking frequency: daily seatbelt use: always HPI HPI Chief Complaint: Sinus ISsues Details: CARLITOS SWEENEY, is a 49 M who presents to the office today for medrol benzon [facility] evaluation in the [facility] for approximately 2-3 day history of persistent congestion, productive clear cough; no c/o fever, chills, JACKSON, myalgias, fatigue, nausea, or diarrhea. Patient notes no complaints of chest pain or shortness of breath or dyspnea on exertion. Several close contacts r ecently dx?d w/ similar URI complaints. No ooyv-exh-ojcrcel taken to assist. Ex- smoker. No other associated symptoms and no other alleviating/aggravating factors. ROS Const Constitutional: No other (As above) Exam Const General: cooperative, healthy appearing and no acute distress Orientation: alert, awake HENNV Head: normal to inspection Ears: hearing grossly normal bilaterally, external ears normal, TM's normal bilaterally and EAC's normal Nose: external nose normal, nares normal, septum normal and clear nasal discharge Face and sinus: normal facial exam, sinuses nontender and face symmetric Mouth: oral mucosae normal, lip normal, tongue normal and oropharynx normal Throat: posterior oropharynx normal, tonsils normal, uvula midline and no postnasal drainage Eyes General: appearance normal, both eyes and all related structures Neck Neck: normal visual inspection, full ROM, no lymphadenopathy, no meningeal signsand supple Neck mass: No Thyroid: thyroid normal Lymphatic: no lymphadenopathy noted Chest Chest palpation & inspection: normal inspection of the chest Resp Effort & Inspection: normal respiratory effort, able to speak in complete sentences and cough Quality of cough: wet (nonproductive in office today) Auscultation: Bilateral: Clear to Auscultation Cardio Palpation: normal PMI Rate: tachycardic Rhythm: regular rhythm Heart Sounds: S1 normal, S2 normal Pulses: radial pulses present Skin General: no rashes or lesions noted Neuro General: patient alert, patient awake Cognition: normal cognition Speech: speech normal Psych Appearance: grossly normal Mental Status: mental status grossly normal Mood: congruent mood Affect: normal affect Speech and Movement: speech and movement normal Attitude: cooperative Diagnoses Acute bronchitis, unspecified J20.9 URI (upper respiratory infection) J06.9 Assessment and Plan Assessment and Plan (1) Acute bronchitis, unspecified: Status: Acute (2) URI (upper respiratory infection): Status: Acute Plan: Medrol and Benzonatate as prescribed today. Supportive measures as instructed today. Follow-up with PCP in 5 to 7 days should symptoms not improve, sooner should symptoms worsen or anyother concerns develop. Pt states acknowledging understanding all the above. Coding Level of Care Code Off vis,new,level 3 Assessment and Plan Assessment and Plan Medications: New benzonatate 200 mg PO TID PRN 20 caps 0RF cough methylprednisolone (Medrol (Chetan)) PO PER PKG DIR 21 tabs 0RF 04/11/25 1507 s DEBBIE PA> Date _ Jeyson LEWIS Cosign Signature: Date (if applicable) CC: ~ [facility]10-20-2025 Progress note Author Jeyson Callejas [facility] Note Date/Time April 11, 2025 4 :07pm [facility] [address], [address] [place], [place] [id number] OFFICE VISIT Date of Service: 04/11/25 MR#: [id number] Acct: [id number] Name: CARLITOS SWEENEY Rep #: [id number] : 1975 Provider: DEBBIE Dow Age/Sex: 49/M Location[place] [facility] Status: Signed Intake Vital Signs 03/15/25 21:21 04/11/25 14:39 Height 5 ft 11 in 5 ft 11 in Weight: 160 lb BMI 22.3 BP 154/80 H Blood Pressure Location Lt brachial Position Sitting Pulse 82 Pulse Source Monitor Temp 97.6 F L Temp Source Oral Pulse Oximetry (%) 98 Oxygen Delivery Method room air Intake Visit Reasons: SINUS COMPLAINT/CHEST CONGESTION/COUGH Chief Complaint: Sinus ISsues Accompanied by: Self Allergies Iodinated Contrast Media (CONTRASTS) Allergy (Verified 04/11/25 14:27) Fever and skin rash Penicillins Allergy (Verified 04/11/25 14:27) Anaphylaxis cyclobenzaprine (From Flexeril) Adverse Reaction (Verified 04/11/25 14:27) dizzy, faints tramadol (From Ultram) Adverse Reaction (Verified 04/11/25 14:27) Rash Medications ?Medication ?Instructions ?Recorded ?Confirmed ?Type acetaminophen 325 mg tablet 650 mg PO Q4H PRN Pain 04/11/25 History sevelamer carbonate 800 mg tablet 800 mg PO TID KIDNEY DISEASE 08/21/21 04/11/25 History aspirin 81 mg tablet,delayed 81 mg PO DAILY 02/04/24 1 History release (Adult Low Dose Aspirin) Held on 03/15/25. Instructions: PACEMAKER BATTERY CHANGE atorvastatin 40 mg tablet (Lipitor) 40 mg PO DAILY 04/11/25 History albuterol sulfate 90 mcg/actuation 2 puff inhalation Q 4H PRN PRN 12/08/24 04/11/25 History aerosol inhaler wheezing carvedilol 3.125 mg tablet 3.125 mg PO BID 12/08/24 History isosorbide mononitrate 30 mg 30 mg PO BID 12/08/24 History tablet,extended release 24 hr nicotine 21 mg/24 hr daily 1 patch topical DAILY 12/0804/11/25 History transdermal patch buspirone 5 mg tablet 5 mg PO TID 03/15/25 5 History hydralazine 25 mg tablet 25 mg PO TID 03/15/25 History ondansetron HCl 4 mg tablet 4 mg PO Q8H PRN PRN nausea and 03/15/25 04/11/25 History vomiting doxycycline hyclate 100 mg tablet 100 mg PO BID 10 day s #20 tabs 03/16/25 04/11/25 Rx benzonatate 200 mg capsule 200 mg PO TID PRN cough #20 caps 04/11/25 04/11/25 Rx methylprednisolone 4 mg tablets in See Rx Instructions PO PER PKG DIR 04/11/25 04/11/25 Rx a dose pack (Medrol (Chetan)) #21 tabs Nurse's Note: Congestion, cough, coughing up clear mucus. X3 days PFSH Medical History Inferior vena caval stenosis [...] rejection Surgical History Hx of cardiac catheterization (~09/26/22) S/P internal cardiac defibrillator procedure Presence of [...] in: walking frequency: daily seatbelt use: always HPI HPI Chief Complaint: Sinus ISsues Details: CARLITOS DYE, is a 49 M who presents to the office today for medrol benzon [facility] evaluation in the [facility] for approximately 2-3 day history of persistent congestion, productive clear cough; no c/o fever, chills, JACKSON, myalgias, fatigue, nausea, or diarrhea. Patient notes no complaints of chest pain or shortness of breath or dyspnea on exertion. Several close contacts recently dx?d w/ similar URI complaints. No [id number] taken to assist. Ex-smoker. No other associated symptoms and no other alleviating/aggravating factors. ROS Const Constitutional: No other (As above) Exam Const General: cooperative, healthy appearing and no acute distress Orientation: alert, awake HENMT Head: normal to inspection Ears: hearing grossly normal bilaterally, external ears normal, TM's normal bilaterally and EAC's normal Nose: external nose normal, nares normal, septum normal and clear nasal discharge Face and sinus: normal facial exam, sinuses nontender and face symmetric Mouth: oral mucosae normal, lip normal, tongue normal and oropharynx normal Throat: posterior oropharynx normal, tonsils normal, uvula midline and no postnasal drainage Eyes General: appearance normal, both eyes and all related structures Neck Neck: normal visual inspection, full ROM, no lymphadenopathy, no meningeal signsand supple Neck mass: No Thyroid: thyroid normal Lymphatic: no lymphadenopathy noted Chest Chest palpation & inspection: normal inspection of the chest Resp Effort & Inspection: normal respiratory effort, able to speak in complete sentences and cough Quality of cough: wet (nonproductive in office today) Auscultation: Bilateral: Clear to Auscultation Cardio Palpation: normal PMI Rate: tachycardic Rhythm: regular rhythm Heart Sounds: S1 normal, S2 normal Pulses: radial pulses present Skin General: no rashes or lesions noted Neuro General: patient alert, patient awake Cognition: normal cognition Speech: speech normal Psych Appearance: grossly normal Mental Status: mental status grossly normal Mood: congruent mood Affect: normal affect Speech and Movement: speech and movement normal Attitude: cooperative Diagnoses Acute bronchitis, unspecified J20.9 URI (upper respiratory infection) J06.9 Assessment and Plan Assessment and Plan (1) Acute bronchitis, unspecified: Status: Acute (2) URI (upper respiratory infection): Status: Acute Plan: Medrol and Benzonatate as prescribed today. Supportive measures as instructed today. Follow-up with PCP in 5 to 7 days should symptoms not improve, sooner should symptoms worsen or any other concerns develop. Pt states acknowledging understanding all the above. Coding Level of Care Code Off vis,new,level 3 Assessment and Plan Assessment and Plan Medications: New benzonatate 200 mg PO TID PRN 20 caps 0RF cough methylprednisolone (Medrol (Chetan)) PO PER PKG DIR 21 tabs 0RF 04/11/25 1507 <Electronically signed by Jeyson LWEIS> Date _ Jeyson LEWIS Cosigner Signature: Date (if applicable) CC: ~ [employer] Work Phone: [phone] Discharge summary [facility] Medical Records Department [address] [place] [address] Emergency Department Summary 03/15/25 MR#: [id number] Acct: [id number] Name: CARLITOS SWEENEY Rep #:[id number] : 1975 49 From: Prabhjot Glez PCP: Dr. Monie Alston, DO Status:REG ER Location: ED HPI History of Present Illness Chief Complaint: Shortness of Breath [facility] Medical History Inferior vena caval stenosis Steel [...] Renal transplant failure and rejection Home Medications ?Medication ?Instructions ?Recorded ?Last Taken ?Type acetaminophen 325 mg tablet 650 mg PO Q4H PRN Pain Unknown History sevelamer carbonate 800 mg tablet 800 mg PO TID KIDNEY DISEASE 08/21/21 Unknown History aspirin 81 mg tablet,delayed 81 mg PO DAILY 02/04/24 U nknown History release (Adult Low Dose Aspirin) Held on 03/15/25. Instructions: PACEMAKER BATTERY CHANGE atorvastatin 40 mg tablet (Lipitor) 40 mg PO DAILY Unknown History albuterol sulfate 90 mcg/actuation 2 puff inhalation Q 4H PRN PRN 12/08/24 Unknown History aerosol inhaler wheezing carvedilol 3.125 mg tablet 3.125 mg PO BID 12/08/24 Un known History isosorbide mononitrate 30 mg 30 mg PO BID 12/08/24 Unk nown History tablet,extended release 24 hr nicotine 21 mg/24 hr daily 1 patch topical DAILY 12/08 Unknown History transdermal patch buspirone 5 mg tablet 5 mg PO TID 03/15/25 Unknown History hydralazine 25 mg tablet 25 mg PO TID 03/15/25 Unknow n History ondansetron HCl 4 mg tablet 4 mg PO Q8H PRN PRN nausea and 03/15/25 Unknown History vomiting Allergy/AdvReac Type Severity Reaction Status Date / Time Iodinated Contrast Media Allergy Fever and Verified 03/15/25 21:22 (CONTRASTS) skin rash Penicillins Allergy Anaphylaxis Verified 03/15/25 21:22 cyclobenzaprine (From AdvReac dizzy, Verified 03/15/25 21:22 Flexeril) faints tramadol (From Ultram) AdvReac Rash Verified 03/15/25 21:22 Family History Father Diabetes Heart disease Hypertension Presence of implantable cardioverter-defibrillator (ICD) Brother Heart disease Hypertension Diabetes Presence of implantable cardioverter-defibrillator (ICD) LVAD (left ventricular assist device) present Surgical History Hx of cardiac catheterization (~09/26/22) S/P internal cardiac defibrillator procedure Presence of [...] in: walking frequency: daily seatbelt use: always EXAM Physical Exam Const Vital Signs: 03/15/25 21:21 03/15/25 23:00 Temperature 97.5 F L Temperature Source Oral Pulse Rate 95 83 Respiratory Rate 18 19 H Blood Pressure 165/97 H 150/92 H Blood Pressure Mean 119 111 Pulse Ox 97 99 Oxygen Delivery Method Room Air Room Air MDM MDM MDM Narrative Medical decision making narrative: HISTORY OF PRESENT ILLNESS: Chief complaint: Shortness of breath 49-year-old male presents with concern for shortness of breath. Has a past medical history significant for CAD, hyperlipidemia, tobacco use disorder, nonischemic cardiomyopathy status post ICD, hypertension, ESRD s/p renal transplant failure rejection, anemia of chronic disease presents with 1 weekof shortness of breath. Notes compliance to dialysis. States he gets dialysis daily through a rightupper extremity fistula. States he had a complete treatment today. Denies leg swelling. Does know intermittent fevers and a cough that is nonproductive. No sick contacts. Is concerned he may have pneumonia. He denies chest pain. The patient denies recent surgery in the last 4 weeks or immobilization in the last 3 days, denies previous diagnosis of DVT or PE, hemoptysis, unilateral leg swelling or malignancy with treatment the last 6 months or palliative. No estrogen use noted. REVIEW OF SYSTEMS: Pertinent positives: Shortness of breath Pertinent negatives: As per HPI PHYSICAL EXAM: Nursing triage notes reviewed, Vital signs reviewed Constitutional: please see mdm HENT: MMM Eyes: Pupils equal round and reactive to light, Extraocular muscles intact Neck: No stridor, no JVD, full neck ROM Lungs: Clear to auscultation, No wheezing or rales. No increased work of breathing, no conversational dyspnea, no accessory muscle use, no nasal flaring. No respiratory distress noted Heart: Regular rate and rhythm, No murmurs, No rubs and No gallops, 2+ distal pulses (radial, femoral, posterior tibial) in all extremities Abdomen: Soft, there is no tenderness, rigidity, rebound or guarding, no obviousperitoneal signs, no palpable pulsatile abdominal masses, no auscultated abdominal bruit : No CVAT Extremities: No edema, right upper extremity fistula with palpable thrill, no bleeding or signs of infection noted. Neuro: No new focal neurological deficits, cranial nerves II through XII intact,5/5 strength in allpresent extremities. Intact sensation to light touch in all present extremities, 2+ reflexes bilateral patella tendons. Skin: No rash or lesions noted MEDICAL DECISION MAKING: Chief Complaint: please see HPI External records reviewed: Reviewed prior hospitalizations and ED notes Factors affecting care: As per HPI Social determinants of health: History of tobacco use History obtained from others: Family Consults: none [facility] Narrative: Patient was initially hemodynamically stable, afebrile and nontoxic-appearing. Exam with d focal consolidative auscultative process on the right. I considered the following differential diagnosis: CHF exacerbation, ESRD, bacterial pneumonia, viral illness, anemia, electro disturbance, arrhythmia, ACS While I considered ACS patient was not experiencing chest pain which makes this less likely. While I considered pulmonary embolism the patient had a low risk Wells score andas such have a low suspicion for pulmonary embolism I obtained a broad lab and imaging evaluation to further determine if the patient was suffering from a life-threatening etiology. ALL IMAGES (IF OBTAINED) HAVE BEEN PERSONALLY REVIEWED AND INTERPRETED BY MYSELF. EKG with normal sinus rhythm rate of 82, left axis deviation, prolonged QTc interval at 511, no obvious STEMI, no sign of significant electrolyte abnormality Chest x-ray was read and reviewed personally by myself shows evidence of a rightlower lobe infiltrate consistent with likely pneumonia. Radiologist noted [close CBC with no leukocytosis to suggest systemic inflammation or sepsis, noted chronic anemia likely secondary to chronic disease, no thrombocytopenia BMP consistent with end-stage renal disease otherwise no significant [place] abnormalities or signsof metabolic acidosis. Patient does have a elevated anion gap consistent with likely uremia COVID/RSV/flu negative Upon reassessment the patient was ambulated with a pulse ox without showing signs of significant hypoxia. He is likely suffering from bacterial pneumonia. Will give oral antibiotics. While I considered hospitalization the patient did not have any significant vital sign abnormalities or hypoxia to warrant hospitalization at this time. He is appropriate for initial treatment with oral antibiotics with strict return precautions and close follow-up instructions with primary care physician. The patient and/or family, caregivers express understanding. The patient and/or family, caregivers agrees with the plan. Shared decision making: I will have a discussion with the patient and or visitors regarding risk/benefits of further testing or admission. They will be made aware of of the risk/benefits inherent in this decision they will be given the opportunity to voice understanding. Total critical care time today provided was at least 0 minutes. This excludes separately billable procedures. Critical care time (if documented) is secondary to the patient having high probability ofclinically significant/life threatening deterioration in the patient's condition which required my urgent intervention. Impression: 1. Dyspnea 2. History of end-stage renal disease 3. Community-acquired pneumonia Dispo: Discharge This note was generated with [employer] dictation software. It may contain incorrect words, spelling, and punctuation that were not noted in review of the chart prior to signing. Lab Data Labs: Laboratory Results - last 24 hr 03/15/25 22:06 WBC 4.4 RBC 2.87 L Hgb 8.0 L Hct 25.2 L MCV 87.8 MCH 27.9 MCHC 31.7 L RDW Std Deviation 52.2 H RDW Coeff of Good 16.5 H Plt Count 197 MPV 9.9 Immature Gran % (Auto) 0.500 Neut % (Auto) 70.2 H Lymph % (Auto) 17.[address] % (Auto) 8.1 Eos % (Auto) 2.5 Baso % (Auto) 0.9 Absolute Neuts (auto) 3.1 Absolute Lymphs (auto) 0.79 L Nucleated RBC % 0 Sodium 140 Potassium 4.9 Chloride 97 L Carbon Dioxide 24.4 Anion Gap 19 H BUN 67 H Creatinine 14.60 H* Estim Creat Clear Calc 6.18 L* Est GFR (MDRD) Non-Af 4 L BUN/Creatinine Ratio 4.6 L Glucose 105 H Calcium 8.0 Radiography Diagnostic Testing: Clinical Impression(s) from Imaging Studies Chest X-Ray 03/15/25 22:50 IMPRESSION: Cardiomegaly, with small right basilar pleural effusion. Bilateral perihilar airspace opacities likely represent pulmonary edema, with coexisting consolidation not excluded. Reading Location: [facility] Discharge Plan Triage Chief Complaint: Shortness of Breath ED Provider: Prabhojt Andres Dx/Rx/DC Orders Prescriptions: No Action acetaminophen 325 mg tablet 650 mg PO Q4H PRN (Reason: Pain) sevelamer carbonate 800 mg tablet 800 mg PO TID Rx Instructions: must administer with a meal/food atorvastatin [Lipitor] 40 mg tablet 40 mg PO DAILY aspirin [Adult Low Dose Aspirin] 81 mg tablet,delayed release (DR/EC) 81 mg PO DAILY isosorbide mononitrate 30 mg tablet extended release 24 hr 30 mg PO BID carvedilol 3.125 mg tablet 3.125 mg PO BID nicotine 21 mg/24 hr patch 24 hour 1 patch topical DAILY albuterol sulfate 90 mcg/actuation HFA aerosol inhaler 2 puff inhalation Q4H PRN PRN (Reason: wheezing) buspirone 5 mg tablet 5 mg PO TID hydralazine 25 mg tablet 25 mg PO TID ondansetron HCl 4 mg tablet 4 mg PO Q8H PRN PRN (Reason: nausea and vomiting) Primary Care Provider: Monie Alston Referrals: Monie Alston DO [Primary Care Provider, Medical] Print Language: Vietnamese What to do if you have Problems For any increased pain, shortness of breath, bleeding, nausea or vomiting, chestpain, or any unexpected problems, contact your Primary Care Provider. Call [facility] ([phone]) or report tothe closest Emergency Room. Call 911 if necessary. 03/16/25 0019 Cosigner Signature (if applicable): CC: Dr. Monie Alston DO ~ Signed [facility]09-24-2025 Radiology Diagnostic study note [facility] Imaging Services [address] [place] [address] Chest PA and Lateral MR#: [id number] Acct: [id number] Name: CARLITOS SWEENEY Rep #: [id number] : 1975 M 49 From: Palomo Dunne MD PCP: Dr. Monie Alston DO Status: REG ER Study:Chest PA and Lateral Date of Exam: 03/15/25 Exam# [id number] Ordering Dr: Omar Andres DO PROCEDURE: CHEST PA AND LATERAL 03/15/2025 REASON FOR EXAM: COUGH, SHORTNESS OF BREATH TECHNIQUE: Procedure Code: RADCXR Modality: DX Procedure: CHEST PA AND LATERAL COMPARISON: 07/30/2022 FINDINGS: Devices: Left chest wall dual lead ICD in stable positioning. Lungs/Pleura: Small right basilar pleural effusion likely with adjacent atelectasis. No sizable pleural effusion on the left. Probable mild bilateral perihilar edema, coexisting consolidation not excluded. Heart/Mediastinum: Cardiomegaly. Aortic arch calcification. Bones/Soft tissues: No significant abnormality. RAD/Chest PA and Lateral IMPRESSION: Cardiomegaly, with small right basilar pleural effusion. Bilateral perihilar airspace opacities likely represent pulmonary edema, with coexisting consolidation not excluded. Reading Location: [facility] [place] CC: Dr. Monie Alston DO; Dr. Prabhjot Andres DO ~ Property Loss Insurance Claim Adjuster: Signed [facility]09-23-2025 Discharge summary Author Prabhjot Andres [facility] Note Date/Time March 16, 2025 12:19am [facility] Medical Records Department [address] [place] [address] Emergency Department Summary 03/15/25 MR#: [id number] Acct: [id number] Name: CARLITOS SWEENEY Rep #:[id number] : 1975 49 From: Prabhjot Glez PCP: Dr. Monie Alston DO Status:REG ER Location: ED HPI History of Present Illness Chief Complaint: Shortness of Breath [facility] Medical History Inferior vena caval stenosis Steel [...] Renal transplant failure and rejection Home Medications ?Medication ?Instructions ?Recorded ?Last Taken ?Type acetaminophen 325 mg tablet 650 mg PO Q4H PRN Pain Unknown History sevelamer carbonate 800 mg tablet 800 mg PO TID KIDNEY DISEASE 08/21/21 Unknown History aspirin 81 mg tablet,delayed 81 mg PO DAILY 02/04/24 U nknown History release (Adult Low Dose Aspirin) Held on 03/15/25. Instructions: PACEMAKER BATTERY CHANGE atorvastatin 40 mg tablet (Lipitor) 40 mg PO DAILY Unknown History albuterol sulfate 90 mcg/actuation 2 puff inhalation Q 4H PRN PRN 12/08/24 Unknown History aerosol inhaler wheezing carvedilol 3.125 mg tablet 3.125 mg PO BID 12/08/24 Un known History isosorbide mononitrate 30 mg 30 mg PO BID 12/08/24 Unk nown History tablet,extended release 24 hr nicotine 21 mg/24 hr daily 1 patch topical DAILY 12/08 Unknown History transdermal patch buspirone 5 mg tablet 5 mg PO TID 03/15/25 Unknown History hydralazine 25 mg tablet 25 mg PO TID 03/15/25 Unknow n History ondansetron HCl 4 mg tablet 4 mg PO Q8H PRN PRN nausea and 03/15/25 Unknown History vomiting Allergy/AdvReac Type Severity Reaction Status Date / Time Iodinated Contrast Media Allergy Fever and Verified 03/15/25 21:22 (CONTRASTS) skin rash Penicillins Allergy Anaphylaxis Verified 03/15/25 21:22 cyclobenzaprine (From AdvReac dizzy, Verified 03/15/25 21:22 Flexeril) faints tramadol (From Ultram) AdvReac Rash Verified 03/15/25 21:22 Family History Father Diabetes Heart disease Hypertension Presence of implantable cardioverter-defibrillator (ICD) Brother Heart disease Hypertension Diabetes Presence of implantable cardioverter-defibrillator (ICD) LVAD (left ventricular assist device) present Surgical History Hx of cardiac catheterization (~09/26/22) S/P internal cardiac defibrillator procedure Presence of [...] in: walking frequency: daily seatbelt use: always EXAM Physical Exam Const Vital Signs: 03/15/25 21:21 03/15/25 23:00 Temperature 97.5 F L Temperature Source Oral Pulse Rate 95 83 Respiratory Rate 18 19 H Blood Pressure 165/97 H 150/92 H Blood Pressure Mean 119 111 Pulse Ox 97 99 Oxygen Delivery Method Room Air Room Air MDM MDM MDM Narrative Medical decision making narrative: HISTORY OF PRESENT ILLNESS: Chief complaint: Shortness of breath 49-year-old male presents with concern for shortness of breath. Has a past medical history significant for CAD, hyperlipidemia, tobacco use disorder, nonischemic cardiomyopathy status post ICD, hypertension, ESRD s/p renal transplant failure rejection, anemia of chronic disease presents with 1 week of shortness of breath. Notes compliance to dialysis. States he gets dialysis daily through a right upper extremity fistula. States he had a complete treatment today. Denies leg swelling. Does know intermittent fevers and a cough that is nonproductive. No sick contacts. Is concerned he may have pneumonia. He denies chest pain. The patient denies recent surgery in the last 4 weeks or immobilization in the last 3 days, denies previous diagnosis of DVT or PE, hemoptysis, unilateral leg swelling or malignancy with treatment the last 6 months or palliative. No estrogen use noted. REVIEW OF SYSTEMS: Pertinent positives: Shortness of breath Pertinent negatives: As per HPI PHYSICAL EXAM: Nursing triage notes reviewed, Vital signs reviewed Constitutional: please see mdm HENT: MMM Eyes: Pupils equal round and reactive to light, Extraocular muscles intact Neck: No stridor, no JVD, full neck ROM Lungs: Clear to auscultation, No wheezing or rales. No increased work of breathing, no conversational dyspnea, no accessory muscle use, no nasal flaring. No respiratory distress noted Heart: Regular rate and rhythm, No murmurs, No rubs and No gallops, 2+ distal pulses (radial, femoral, posterior tibial) in all extremities Abdomen: Soft, there is no tenderness, rigidity, rebound or guarding, no obviousperitoneal signs, no palpable pulsatile abdominal masses, no auscultated abdominal bruit : No CVAT Extremities: No edema, right upper extremity fistula with palpable thrill, no bleeding or signs of infection noted. Neuro: No new focal neurological deficits, cranial nerves II through XII intact,5/5 strength in all present extremities. Intact sensation to light touch in all present extremities, 2+ reflexes bilateral patella tendons. Skin: No rash or lesions noted MEDICAL DECISION MAKING: Chief Complaint: please see HPI External records reviewed: Reviewed prior hospitalizations and ED notes Factors affecting care: As per [facility] Social determinants of health: History of tobacco use History obtained from others: Family Consults: none [facility] Narrative: Patient was initially hemodynamically stable, afebrile and nontoxic-appearing. Exam with d focal consolidative auscultative process on the right. I considered the following differential diagnosis: CHF exacerbation, ESRD, bacterial pneumonia, viral illness, anemia, electro disturbance, arrhythmia, ACS While I considered ACS patient was not experiencing chest pain which makes this less likely. While I considered pulmonary embolism the patient had a low risk Wells score andas such have a low suspicion for pulmonary embolism I obtained a broad lab and imaging evaluation to further determine if the patient was suffering from a life-threatening etiology. ALL IMAGES (IF OBTAINED) HAVE BEEN PERSONALLY REVIEWED AND INTERPRETED BY MYSELF. EKG with normal sinus rhythm rate of 82, left axis deviation, prolonged QTc interval at 511, no obvious STEMI, no sign of significant electrolyte abnormality Chest x-ray was read and reviewed personally by myself shows evidence of a rightlower lobe infiltrate consistent with likely pneumonia. Radiologist noted [close CBC with no leukocytosis to suggest systemic inflammation or sepsis, noted chronic anemia likely secondary to chronic disease, no thrombocytopenia BMP consistent with end-stage renal disease otherwise no significant [place] abnormalities or signs of metabolic acidosis. Patient does have a elevated anion gap consistent with likely uremia COVID/RSV/flu negative Upon reassessment the patient was ambulated with a pulse ox without showing signs of significant hypoxia. He is likely suffering from bacterial pneumonia. Will give oral antibiotics. While I considered hospitalization the patient did not have any significant vital sign abnormalities or hypoxia to warrant hospitalization at this time. He is appropriate for initial treatment with oral antibiotics with strict return precautions and close follow-up instructions with primary care physician. The patient and/or family, caregivers express understanding. The patient and/or family, caregivers agrees with the plan. Shared decision making: I will have a discussion with the patient and or visitors regarding risk/benefits of further testing or admission. They will be made aware of of the risk/benefits inherent in this decision they will be given the opportunity to voice understanding. Total critical care time today provided was at least 0 minutes. This excludes separately billable procedures. Critical care time (if documented) is secondary to the patient having high probability of clinically significant/life threatening deterioration in the patient's condition which required my urgent intervention. Impression: 1. Dyspnea 2. History of end-stage renal disease 3. Community-acquired pneumonia Dispo: Discharge This note was generated with [employer] dictation software. It may contain incorrect words, spelling, and punctuation that were not noted in review of the chart prior to signing. Lab Data Labs: Laboratory Results - last 24 hr 03/15/25 22:06 WBC 4.4 RBC 2.87 L Hgb 8.0 L Hct 25.2 L MCV 87.8 MCH 27.9 MCHC 31.7 L RDW Std Deviation 52.2 H RDW Coeff of Good 16.5 H Plt Count 197 MPV 9.9 Immature Gran % (Auto) 0.500 Neut % (Auto) 70.2 H Lymph % (Auto) 17.[address] % (Auto) 8.1 Eos % (Auto) 2.5 Baso % (Auto) 0.9 Absolute Neuts (auto) 3.1 Absolute Lymphs (auto) 0.79 L Nucleated RBC % 0 Sodium 140 Potassium 4.9 Chloride 97 L Carbon Dioxide 24.4 Anion Gap 19 H BUN 67 H Creatinine 14.60 H* Estim Creat Clear Calc 6.18 L* Est GFR (MDRD) Non-Af 4 L BUN/Creatinine Ratio 4.6 L Glucose 105 H Calcium 8.0 Radiography Diagnostic Testing: Clinical Impression(s) from Imaging Studies Chest X-Ray 03/15/25 22:50 IMPRESSION: Cardiomegaly, with small right basilar pleural effusion. Bilateral perihilar airspace opacities likely represent pulmonary edema, with coexisting consolidation not excluded. Reading Location: [facility] [place] Discharge Plan Triage Chief Complaint: Shortness of Breath ED Provider: Prabhjot Andres Dx/Rx/DC Orders Prescriptions: No Action acetaminophen 325 mg tablet 650 mg PO Q4H PRN (Reason: Pain) sevelamer carbonate 800 mg tablet 800 mg PO TID Rx Instructions: must administer with a meal/food atorvastatin [Lipitor] 40 mg tablet 40 mg PO DAILY aspirin [Adult Low Dose Aspirin] 81 mg tablet,delayed release (DR/EC) 81 mg PO DAILY isosorbide mononitrate 30 mg tablet extended release 24 hr 30 mg PO BID carvedilol 3.125 mg tablet 3.125 mg PO BID nicotine 21 mg/24 hr patch 24 hour 1 patch topical DAILY albuterol sulfate 90 mcg/actuation HFA aerosol inhaler 2 puff inhalation Q4H PRN PRN (Reason: wheezing) buspirone 5 mg tablet 5 mg PO TID hydralazine 25 mg tablet 25 mg PO TID ondansetron HCl 4 mg tablet 4 mg PO Q8H PRN PRN (Reason: nausea and vomiting) Primary Care Provider: Monie Alston Referrals: Monie Alston DO [Primary Care Provider, Medical] Print Language: Vietnamese What to do if you have Problems For any increased pain, shortness of breath, bleeding, nausea or vomiting, chestpain, or any unexpected problems, contact your Primary Care Provider. Call [facility] ([phone]) or report to the closest Emergency Room. Call 911 if necessary. 03/16/25 0019 <Electronically signed by Prabhjot Andres DO> Cosigner Signature (if applicable): CC: Dr. Monie Alston DO ~ Signed [facility] Work Phone: [phone]) 305-172609-19-2025 Hospital Discharge instructions Patient Education 03/11/2025 01:03:14 [...] will keep the wound clean, make it easierto remove the stitches, and reduce scarring. If [...] becomes wet, blot it dry with a cleantowel. If skin glue was used, don't put [...] some information about medicine: You may use jdan-prl-qmhkwmb medicine such as acetaminophen or ibuprofen to [...] will tell you how long stitches should beleft in. If surgical tape was used, it [...] re-open Bleeding not controlled by direct pressure [id number] [employer]. [address] [place] [address]. All rights reserved. This information is not intended as a substitute for professional medical care. Always follow yourhealthcare professional's instructions. Follow Up Care 03/11/2025 00:04:32 With:MONIE ALSTON Address: [address] [facility] [place] [address]- [phone] Business (1) When:Within 1 Week(s) Comments:Follow-up as needed.Daily wound care with application of topical antibiotic ointment and dry sterile dressing.Watch for signs of infection.Return to the ED if symptoms worsen. [facility] 09-19-2025 Note Discharge Instructions Thank you for allowing [facility] to assist you with your healthcare needs. The following is importantdischarge information regarding your hospital visit. Diagnosis from Today's Visit Skin tear of left forearm without complication What to Do Next Instructions from Your Care Team No qualifying data available. Post Acute Orders No qualifying data available. You Need to Schedule the Following Appointments Follow Up with MONIE ALSTON When:In 1 week Where:[address] [facility] [place] [address]- [phone] Business (1) Additional Information: Follow-up as needed. Daily [...] will keep the wound clean, make it easierto remove the stitches, and reduce scarring. If [...] becomes wet, blot it dry with a cleantowel. If skin glue was used, don't put [...] some information about medicine: You may use nepq-nyy-uihdvle medicine such as acetaminophen or ibuprofen to [...] will tell you how long stitches should beleft in. If surgical tape was used, it [...] re-open Bleeding not controlled by direct pressure [id number] [employer]. [address] [place] [address], [place] [address]. All rights reserved. This information is not intended as a substitute for professional medical care. Always follow yourhealthcare professional's instructions. Additional Information VACCINATE! IT SAVES LIVES! Members of the community who have not yet received the COVID-19 vaccine and would like to receive it can visit one of [facility] vaccine clinics. There are many vaccine clinic locations within the [facility]. For locations and available times, please visit www.gettheshot.coronavirus.[place].gov/. It is important to note that some COVID mobile vaccine clinics are held outdoors and may be canceled in rainy or stormy conditions. To learn more about pediatric vaccinations (ages 5-11), we invite you to visit the [facility] webpage. https://www.[facility].org/pages/6335-Gukjk-Lqyukoynbqp-Uwfritaeki-Ivrwa-Oge stions.htmlTo learn more about the COVID-19 vaccine, we invite you to visit the CDC website for a list of frequently asked questions. https://www.cdc.gov/coronavirus/2019-ncov/vaccines/faq.html [facility] Patient Portal Access Instructions: Stay connected with your healthcare team and access your personal medical information anytime with the [facility] Patient Portal. If you would like a full copy of your medical records please contact the [facility] Medical Records Department Friday through Friday between 8a.m. and 4:30p.m. Please follow the directions below to access the portal: 1.Access the email account you provided upon registration to the hospital.2.Look for an invitation email from [facility].3.Open the email and access the invitation link: Accept Invitation to [facility]4.Fill in the required luis to create your account. To access your account, visit [email or web address] or scan the QR code above. Click the bluebutton labeled "Access Patient Portal" and then log in with the username and password that you created in the steps above. You can then view a summary of results, a summary of your visits, and the ability to download your summaries to your computer or send the information securely to a physician. Re member that your healthcare information is confidential, so carefully consider who you will allow to register on the [facility] Patient Portal for access to your information. You can also access the [facility] Patient Portal on the devsisters. Simply click on "Health Records" under "Health Data" and then click on the [facility] logo. HOW TO SAFELY DISPOSE OF PRESCRIPTION [...] Call your local pharmacy or go to http://[employer].Million Dollar Earth/0B5Gf4o to find one close to you.3.Make use of household items: Use cat litter or old coffee grounds to dispose medications if other options arenot available. Mix your drugs with these household products, seal them in an airtight container andthrow it into the garbage. Call [facility]: [phone] to be sure your drugs can be [...] been reviewed and explained to me and IVORY Covarrubias CHAD K understand my current condition and have read and understand these discharge instructions. I have received a written copy of the plan/instructions. If I have questions, I am aware that I should contact my doctor. 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 TRANSPLANT NEPHROLOGY CONSULT : KIDNEY TRANSPLANT RECIPIENT EVALUATION SERVICE DATE: 02/15/2025 REASON FOR CONSULT/CHIEF COMPLAINT: FOR KIDNEY TRANSPLANT RECIPIENT EVALUATION. HPI: Mr. Sweeney is a 49 y.o. 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 Social History Socioeconomic History [...] Insecurity: No Food Insecurity (09/02/2022) Received from [facility] Hunger Vital Sign Within the past 12 months, you worried that your food would run out before you got the money to buymore.: Never true Within the past 12 months, the food you bought just didn't last and you didn't have money to get more.: Never true Transportation Needs: No Transportation Needs (02/15/2025) PRAPARE - Transportation Lack of Transportation (Medical): No Lack of Transportation (Non-Medical): No Physical Activity: Sufficiently Active (08/26/2022) Received from [facility] Exercise Vital Sign On average, how many days per week do you engage in moderate to strenuous exercise (like a brisk walk)?: 7 days On average, how many minutes do you engage in exercise at this level?: 30 min Stress: Stress Concern Present (02/15/2025) [employer] [place] [facility] [employer] - Occupational Stress Questionnaire Feeling of Stress: To some extent Social Connections: Moderately Isolated (08/26/2022) Received from [facility] Social Connection and Isolation Panel In a typical week, how many times do you talk on the phone with family, friends, or neighbors?: More than three times a week How often do you get together with friends or relatives?: More than three times a week How often do you attend episcopalian or mandaen services?: Never Do you belong to any clubs or organizations such as episcopalian groups, unions, fraternal or athletic groups, or [...] (97.8 F) (Temporal) Ht 1.803 m (5' 11") Wt 75.7 kg (166 lb 12.8 oz) [...] 4.8 11/21/2022 par EKG: Reviewed Echocardiogram: Echocardiogram Narrative [facility], [address] [place] [address] and TRANSTHORACIC ECHOCARDIOGRAM REPORT Patient Name: CARLITOS SWEENEY Reading Physician: [id number] Raman Green MD Study Date: 02/28/2021 Referring Physician: MARISEL TORREZ MRN/PID: [id number] PCP: Accession/Order#: [id number] Department Location: [place] [facility] Non Invasive Date of : 1975 Fellow: Gender: M Nurse: Admit Date: Go Cart Mechanic: Concepción Valdez [facility] Admission Status: Outpatient Additional Staff: Height: 180.34 cm CC Report to: Weight: 72.57 kg Study Type: Echocardiogram BSA: 1.92 m2 Blood Pressure: 143 /83 mmHg Diagnosis/ICD: Z01.818-Encounter for other preprocedural examination Indication: Pre-Kidney Transplant Procedure/CPT: Echo Complete w Full [id number] Patient History: Pertinent History: CHF, COPD and [...] LA Area A2C: 29.4 cm2 LA [place] A4C: 6.4 cm LA [place] A2C: 6.6 cm LA Volume Index: 48.0 ml/m2 LA Vol A4C: 67.4 ml LA Vol A2C: 104.2 ml RA VOLUME BY A/L METHOD: Normal Ranges: RA Vol A4C: 56.7 ml (8.3-19.5ml) RA Vol Index A4C: 29.6 ml/m2 RA Area A4C: 18.8 cm2 RA [place] A4C: 5.3 cm AORTA MEASUREMENTS: Normal Ranges: [...] 1.1 m/s (0.6-0.9m/s) PV Max P.9 mmHg [id number] Raman Green MD Electronically signed on 03/01/2021 [...] transplant evaluation guideline : -Cardiology consult for "cardiac clearance"; repeat echo and stress test -Pulmonary function [...] protocol to ensure safety of kidney transplantation. The case will be presented at the selection committee at the [facility] [place], . The final decision from the committee will be sent out to notify the patient/primary care physician/ braid pattern setter. The above recommendations were discussed with the patie nt at length. In addition, the following were [...] Centers for Disease Control and Prevention(CDC)'s guidelines [https://www.cdc.go v/vaccines/schedules/downloads/adult/mrdho-yzbupnim-wfwphwxt.pdf] Currently, the patient has received the following vaccines: Immunization History Administered Date(s) Administered COVID-19, mRNA, LNP-S, PF, 30 mcg/0.3 mL dose 05/07/2021, 05/28/2021 Scryer COVID-19 vaccine, bivalent, age 10 years and [...] time was spent in counseling, explaining about thetransplantation and answering the questions. I also reviewed [...] Fever Penicillin G Hives [facility] Work Phone: 1(134) 349-742208-26-2025 History of Present illness Narrative* Loida Perea MD - 02/15/2025 2:00 PM EDT Sebastian Sweeney is a 49 y.o. male [...] 5x/week Denies CP, SOB No history of MO or CVA Review of Systems Constitutional: Negative [...] Review Blood Type: No results found for: "ABORH" Lab Results Component Value Date WBC 4.7 [...] living and donor allograft recipients. This data includedWhite Hospital data compared to National data readily [...] disease) (Multi) 2. Kidney replaced by transplant ([facility]) 3. Pre-transplant evaluation for [...] CT for anatomy evaluation documented in this [facility] Work Phone: 1(740) 978-135908-15-2025 Note. MICRO - Microbiology PROCEDURE: Blood Culture [...] Locations *1: This test was performed at: [facility], [address] [place] [address], [id number]- , [facility]08-15-2025 Note. MICRO - Microbiology PROCEDURE: Blood Culture [...] Locations *1: This test was performed at: [address], [address] [place], [place] [address]365[address]-15-2025 Note. MICRO - Microbiology PROCEDURE: Blood Culture [...] Locations *1: This test was performed at: [address], [address] [place], [place] [address]-11-2025 Note Date of Service 01/31/2025 Reason for [...] generator change on 01/26/2025 (performedby Sarthak Obregon). Postprocedurally, he had mild pain [...] He had CT chest with contrast at [place] [facility] showing large collection of fluid left [...] 14.74 H Creatinine Lvl (s): 14.74 H 08/10 06:39 WBC: 3.3 L Hgb: 7.4 L [...] needed with transportation BMI 26.0-26.9,adult 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 Cardiomyopathy Chest pain Chronic renal failure Cigarette smoker COPD (chronic obstructive pulmonary disease) Coronary artery calcification, severe on CT 2024 Depression STRAUSS (dyspnea on exertion) End stage renal disease Glasses Headache HFrEF (heart failure with reduced ejection fraction) History of fall 1999s, about 10 feet into gravel History of [...] 6 mg= 2 tab(s), Oral, qHS, PRN [place] 325- 5 mg oral tablet, 1 tab(s), Oral, q4h, PRN [place] 325-10 mg oral tablet, 1 tab(s), Oral, [...] mRNA (tozinameran) vaccine: 0.3 unknown unit (05/07/21) tetanus/diphtheria/pertussMUL.ORD!g71461: 0.5 mL (10/23/20) tetanus/diphtheria/pertussMUL.ORD!a84989: 0.5 mL (11/19/13) Digitally Signed by LEIGHA BOWEN MD on 01/31/2025 04:21 PM [facility] HospitalEboncoss15-00-5735 Note* Exam Date Time Procedure Performing Provider Status 01/31/25 7:10 PM Echocardiogram, Adult - CV DOMINGA FREEMAN MD; Auth (Verified) [facility] [id number] Cardiology Progress note Date of Service 01/31/2025 [...] He had CT chest with contrast at [place] [facility] showing large collection of fluid left anterior chest wall surrounding pacemaker with locules of air with concerns for abscess formation. Concern for right lower and middle lobe airspace disease. Trace effusion on the right. Noted to have acute on chronic anemia with hemoglobin 6.7 (B/L Hgb 7-8), received transfusion at [place] [facility]. CRP 3.1. HS troponin 40 (similar [...] ICD generator change 01/26/2025 S/p dual-chamber ICD 2015 (Medtronic) follows Dr. Rodriguez Nonischemic cardiomyopathy with [...] by ANNAMARIE QUINTANILLA on 01/31/2025 04:23 PM [facility] [id number] Cardiology Progress note Date of Service 01/31/2025 [...] He had CT chest with contrast at [place] [facility] showing large collection of fluid left anterior chest wall surrounding pacemaker with locules of air with concerns for abscess formation. Concern for right lower and middle lobe airspace disease. Trace effusion on the right. Noted to have acute on chronic anemia with hemoglobin 6.7 (B/L Hgb 7-8), received transfusion at [place] [facility]. CRP 3.1. HS troponin 40 (similar [...] by ANNAMARIE QUINTANILLA on 01/31/2025 04:23 PM [facility] [id number] Note Date of Service 01/31/2025 Reason for [...] generator change on 01/26/2025 (performedby Sarthak Obregon). 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 Cardiomyopathy Chest pain Chronic renal failure [...] 6 mg= 2 tab(s), Oral, qHS, PRN [place] 325- 5 mg oral tablet, 1 tab(s), Oral, q4h, PRN [place] 325-10 mg oral tablet, 1 tab(s), Oral, [...] mRNA (tozinameran) vaccine: 0.3 unknown unit (05/07/21) tetanus/diphtheria/pertussMUL.ORD!t83363: 0.5 mL (10/23/20) tetanus/diphtheria/pertussMUL.ORD!s00180: 0.5 mL (11/19/13) Digitally Signed by LEIGHA BOWEN MD on 01/31/2025 04:21 PM [facility] [id number] Infectious disease Progress note Date of Service [...] by HENRIQUE GAMBLE on 01/31/2025 07:30 PM [facility] [id number] Nephrology Progress note Objective Vitals and Measurements [...] ROBERT GARCIA MD on 01/31/2025 02:10 PM [facility] HospitalBwhlvbog01-02-2039 History and physical note Date of Service [...] He had CT chest with contrast at [place] [facility] showing large collection of fluid left anterior chest wall surrounding pacemaker with locules of air with concerns for abscess formation. Concern for right lower and middle lobe airspace disease. Trace effusion on the right. Noted to have acute on chronic anemia with hemoglobin 6.7 (B/L Hgb 7-8), received transfusion at [place] [facility]. CRP 3.1. HS troponin 40 (similar [...] male with above-mentioned medical history presented to [place] ED for pain and swelling around the [...] noted to have hemoglobin of 6.7 at [place] [facility], received a transfusion, repeat CBC pending. Plan: - Started patient on vancomycin, obtain blood cultures showed no growth so far - ID, Nephro and EP are consulted. - He has noted to have acute anemia with Hgb 6.7 (baseline 7-8), received PRBC transfusion at [place] [facility], repeat CBC pending, no overt signs of bleeding noted. - Resume home medications This note was transcribed using [employer] dictation software; please excuse any inadvertent typographical or grammatical errors. The plan was reviewed with the attending, who is in agreement. 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 Cardiomyopathy Chest pain Chronic renal failure Cigarette smoker COPD (chronic obstructive pulmonary disease) Coronary artery calcification, severe on CT 2024 Depression STRAUSS (dyspnea on exertion) End stage renal disease Glasses Headache HFrEF (heart failure with reduced ejection fraction) History of fall 1999s, about 10 feet into gravel History of [...] mRNA (tozinameran) vaccine: 0.3 unknown unit (05/07/21) tetanus/diphtheria/pertussMUL.ORD!q91822: 0.5 mL (10/23/20) tetanus/diphtheria/pertussMUL.ORD!x37603: 0.5 mL (11/19/13) Code Status Code Status - Ordered -- 01/30/25 1:48:00 EDT, Full Code, Constant Order Digitally Signed by ROB JOSEPH MD on 01/30/2025 09:43 AM [facility] [id number] History and physical note Date of Service [...] He had CT chest with contrast at [place] [facility] showing large collection of fluid left anterior chest wall surrounding pacemaker with locules of air with concerns for abscess formation. Concern for right lower and middle lobe airspace disease. Trace effusion on the right. Noted to have acute on chronic anemia with hemoglobin 6.7 (B/L Hgb 7-8), received transfusion at [place] [facility]. CRP 3.1. HS troponin 40 (similar [...] male with above-mentioned medical history presented to [place] ED for pain and swelling around the [...] noted to have hemoglobin of 6.7 at [place] [facility], received a transfusion, repeat CBC pending. Plan: - Started patient on vancomycin, obtain blood cultures showed no growth so far - ID, Nephro and EP are consulted. - He has noted to have acute anemia with Hgb 6.7 (baseline 7-8), received PRBC transfusion at [place] [facility], repeat CBC pending, no overt signs of bleeding noted. - Resume home medications This note was transcribed using [employer] dictation software; please excuse any inadvertent typographical or grammatical errors. The plan was reviewed with the attending, who is in agreement. 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 Cardiomyopathy Chest pain Chronic renal failure [...] mRNA (tozinameran) vaccine: 0.3 unknown unit (05/07/21) tetanus/diphtheria/pertussMUL.ORD!h24452: 0.5 mL (10/23/20) tetanus/diphtheria/pertussMUL.ORD!j73901: 0.5 mL (11/19/13) Code Status Code Status - Ordered -- 01/30/25 1:48:00 EDT, Full Code, Constant Order Digitally Signed by ROB JOSEPH MD on 01/30/2025 09:43 AM [facility] [id number] Evaluation + Plan noteExtracted from: Title:History and [...] male with above-mentioned medical history presented to [place] [facility] for pain and swelling around the [...] noted to have hemoglobin of 6.7 at [place] [facility], received a transfusion, repeat CBC pending. Plan: - Started patient on vancomycin, obtain blood cultures showed no growth so far - ID, Nephro and EP are consulted. - He has noted to have acute anemia with Hgb 6.7 (baseline 7-8), received PRBC transfusion at [place] [facility], repeat CBC pending, no overt signs of bleeding noted. - Resume home medications This note was transcribed using [employer] dictation software; please excuse any inadvertent typographical [...] Date:08/26/2025 12:30:00 PM Scheduled Provider:MONIE ALSTON DO Location:[facility] Appointment Type: Wellness Annual Future Scheduled Tests Laboratory* Lipoprotein (a) 09/24/24 * Apolipoprotein B 09/24/24 * TSH with Reflex to FT4 09/24/24 * Prostate Specific Antigen 09/24/24 * A1C Hemoglobin 09/24/24 * Lipid Profile 09/24/24 Radiology* MRI Spine Lumbar w/o Contrast 09/14/24 [facility] 08-10-2025 Infectious disease Consult note Date [...] H Imaging Results and Diagnostics Imaging at [facility] reviewed Assessment/Plan Chest pain cellulitis with [...] fistula, 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 No leukocytosis. 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 Cardiomyopathy Chest pain Chronic renal failure [...] 6 mg= 2 tab(s), Oral, qHS, PRN [place] 325- 5 mg oral tablet, 1 tab(s), Oral, q4h, PRN [place] 325-10 mg oral tablet, 1 tab(s), Oral, [...] mRNA (tozinameran) vaccine: 0.3 unknown unit (05/07/21) tetanus/diphtheria/pertussMUL.ORD!m51641: 0.5 mL (10/23/20) tetanus/diphtheria/pertussMUL.ORD!k50187: 0.5 mL (11/19/13) Digitally Signed by NICHOLAS CARDENAS BA, MD on 01/30/2025 01:52 PM Digitally Signed by Karen Donovan Licensed Scribe on 01/30/2025 09:08 AM Digitally Signed by Karen Donovan Licensed Scribe on 01/30/2025 10:07 AM Digitally Signed by NICHOLAS CARDENAS BA, MD on 01/30/2025 04:41 PM [facility] [id number] Nephrology Consult note Date of Service January [...] needed with transportation BMI 26.0-26.9,adult 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 Cardiomyopathy Chest pain Chronic renal failure [...] 6 mg= 2 tab(s), Oral, qHS, PRN [place] 325- 5 mg oral tablet, 1 tab(s), Oral, q4h, PRN [place] 325-10 mg oral tablet, 1 tab(s), Oral, [...] mRNA (tozinameran) vaccine: 0.3 unknown unit (05/07/21) tetanus/diphtheria/pertussMUL.ORD!x53797: 0.5 mL (10/23/20) tetanus/diphtheria/pertussMUL.ORD!x44590: 0.5 mL (11/19/13) Digitally Signed by CHAYA OWENS MD on 01/30/2025 11:00 AM [facility] HospitalNrbuxemz63-71-6328 History and physical note Date of Service [...] He had CT chest with contrast at [place] [facility] showing large collection of fluid left anterior chest wall surrounding pacemaker with locules of air with concerns for abscess formation. Concern for right lower and middle lobe airspace disease. Trace effusion on the right. Noted to have acute on chronic anemia with hemoglobin 6.7 (B/L Hgb 7-8), received transfusion at [place] [facility]. CRP 3.1. HS troponin 40 (similar [...] male with above-mentioned medical history presented to [place] ED for pain and swelling around the [...] noted to have hemoglobin of 6.7 at [place] [facility], received a transfusion, repeat CBC pending. Plan: - Started patient on vancomycin, obtain blood cultures showed no growth so far - ID, Nephro and EP are consulted. - He has noted to have acute anemia with Hgb 6.7 (baseline 7-8), received PRBC transfusion at [place] [facility], repeat CBC pending, no overt signs of bleeding noted. - Resume home medications This note was transcribed using [employer] dictation software; please excuse any inadvertent typographical or grammatical errors. The plan was reviewed with the attending, who is in agreement. 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 Cardiomyopathy Chest pain Chronic renal failure [...] mRNA (tozinameran) vaccine: 0.3 unknown unit (05/07/21) tetanus/diphtheria/pertussMUL.ORD!c32065: 0.5 mL (10/23/20) tetanus/diphtheria/pertussMUL.ORD!u99001: 0.5 mL (11/19/13) Code Status Code Status - Ordered -- 01/30/25 1:48:00 EDT, Full Code, Constant Order Digitally Signed by ROB JOSEPH MD on 01/30/2025 09:43 AM [facility] [id number] Note* Exam Date Time Procedure Performing Provider Status 01/30/25 12:02 AM Electrocardiogram - EKG - CV BOGDAN PONCE MD; Auth (Verified) ECG Final Report SINUS RHYTHM LEFT ANTERIOR FASCICULAR BLOCK LVH WITH SECONDARY REPOLARIZATION ABNORMALITY PROLONGED QT INTERVAL Electronic Signature: BOGDAN PONCE MD 01/30/2025 13:03:40 [facility] HospitalEuznzgns03-61-4464 Note* Exam Date Time Procedure Performing Provider Status 01/29/25 8:[address] Thorax w/ Contrast NAYELI ESPAÑA; Auth (Verified) [id number] ORIGINAL EXAMINATION: CT OF THE CHEST WITH [...] 01/29/2025 9:04:32 PM Ordering Provider: PARTH PONCE [facility]08-09-2025 Note* Exam Date Time Procedure Performing Provider Status 01/29/25 7:35 PM EKG [ED AOH] - CV PARTH PONCE MD; A cox monett (Verified) ECG Final Report Sinus rhythm Probable left atrial enlargement Left anterior fascicular block LVH with secondary repolarization abnormality Borderline prolonged QT interval Electronic Signature: PARTH PONCE MD 01/29/2025 19:47:08 [facility]08-06-2025 Hospital Discharge instructions Patient Education [...] 05/26/2013 Document Reviewed: 06/10/2014 ExitCare Patient Information 2014 [employer]. This information is not intended to replace [...] what activities are safe for you. Take dwxz-mql-srbwexh and prescription medicines only as told by [...] 09/15/2001 Document Revised: 06/12/2018 Document Reviewed: 01/23/2018 [employer] Patient Education 2020 Programeter. Follow Up Care 01/12/2025 10:07:30 With:KD RODRIGUEZ MD Address: [address] [place] [address] [address] [place] [address]- [phone] When:02/10/2025 09:00:00 Comments:This is your incision check in the [facility]. With:KD RODRIGUEZ MD Address: [address] [facility] [address] [place] [address]- [phone] When:04/28/2025 09:30:00 Comments:This is your hospital follow up in the [facility]. [facility] 08-06-2025 Discharge summary Date of Service [...] MD When:02/10/2025 09:00 AM EDT Where:[address] [facility] [address] [place] [address]- [phone] Additional Information: This is your incision check in the [facility]. Follow Up with KD RODRIGUEZ MD When:04/28/2025 09:30 AM EST Where:[address] [facility] [address] [place] [address]- [phone] Additional Information: This is your hospital follow [...] KD RODRIGUEZ MD on 01/26/2025 12:54 PM [facility] HospitalBmxowibm51-82-5570 Summary of episode note Discharge Instructions Thank you for allowing [facility] to assist you with your healthcare needs. The following is importantdischarge information regarding your hospital visit. Your Care Team MONIE ALSTON DO Your Diagnosis COPD (chronic obstructive pulmonary disease) What to do next Scheduled Follow-Up Appointments Appointment Type When With Where Contact Information StatusCV Incision Check 02/10/2025 09:00 AM EDT [facility] Confirmed CV Office Procedure ICD 04/28/2025 09:30 AM EST [facility] Confirmed CV Remote Procedure HM 07/29/2025 06:45 PM EST [facility] Confirmed PC Wellness Annual 08/26/2025 12:30 PM MONIE MACEDO DO [facility] [address] [place] [address] Confirmed Follow Up Appointments Follow Up with KD RODRIGUEZ MD When:02/10/2025 09:00 AM EDT Where:[address] [place] [address] Additional Information: This is your incision check in the [facility]. Follow Up with KD RODRIGUEZ MD When:04/28/2025 09:30 AM EST Where[facility] [facility] [address] [place] [address]- [phone] Additional Information: This is your hospital follow [...] 06/09/2006 Document Revised: 05/26/2013 Document Reviewed: 06/10/2014 [facility] Patient Information 2015 [employer] [facility]. This information is not intended to replace [...] what activities are safe for you. Take nnbs-fro-zdzxliw and prescription medicines only as told by [...] 09/15/2001 Document Revised: 06/12/2018 Document Reviewed: 01/23/2018 [employer] Patient Education 2020 Programeter. Additional Information VACCINATE! IT SAVES LIVES! Members of the community who have not yet received the COVID-19 vaccine and would like to receive it can visit one of [facility] vaccine clinics. There are many vaccine clinic locations within the [facility]. For locations and available times, please visit [email or web address] It is important to note that some COVID mobile vaccine clinics are held outdoors and may be canceled in rainy or stormy conditions. To learn more about pediatric vaccinations (ages 5-11), we invite you to visit the [facility] webpage. [email or web address]/[email or web address] learn more about the COVID-19 vaccine, we invite you to visit the CDC website for a list of frequently asked questions.https://www.cdc.gov/coronavirus/2019-ncov/vaccines/faq.html [facility] Patient Portal Access Instructions: Stay connected with your healthcare team and access your personal medical information anytime with the [facility] Patient Portal. Please follow the directions below to create your [facility] account: 1.Access the email account you provided upon registration to the hospital/physician office.2.Look for an invitation email from [facility].3.Open the email and access the invitation link: AcceptInvitation to [facility].4.Fill in the required luis to create your account. To access your account, visit [employer]CHOneCwinstont. Click the blue button labeled "Access Patient Portal" and then log in with the username [...] who you will allowto register on the [facility] Patient Portal for access to your information. You can also access the [facility] Patient Portal on the [facility] kyleigh. Simply click on "Patient Portal" and then log into your account. If you would like to receive a full copy of your medical records, please contact the [facility] Medical Records Department by calling [phone], Friday through Friday between 8 a.m. and [...] Call your local pharmacy or go to [email or web address] to find one close to you.3.Make use of household items: Use cat litter or old coffee grounds to dispose medications if other options arenot available. Mix your drugs with these household products, seal them in an airtight container andthrow it into the garbage. Call [facility]: [phone] to be sure your drugs can be [...] aware that I should contact my doctor. 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 Signature: Date/Time: Relationship to Patient: Witness Name/Signature: Date/Time: [facility]Ybnowkfw57-71-0302 Anesthesiology Consult note Patient: CARLITOS SWEENEY Age: [...] CARMEN HOUSE DO on 01/26/2025 11:58 AM [facility] HospitalNjwbyzhf10-58-8115 Anesthesiology Consult note Patient: CARLITOS SWEENEY Age: [...] list: Medical Abdominal pain / SNOMED CT 13244809 / Confirmed Acute hypoxic respiratory failure / SNOMED CT 652558554 / Confirmed Anemia / SNOMED CT 849489740 / Confirmed Anxiety / SNOMED CT 05650561 / Confirmed AICD (automatic cardioverter/defibrillator) present / SNOMED CT 6316624277 / Confirmed Hypokinesis on echo 2022 / SNOMED CT 810477589 / Confirmed Coronary artery calcification, severe on CT 2024 / SNOMED CT 7523872418 / Confirmed Cardiomyopathy / SNOMED CT 535173661 / Confirmed Chest pain / SNOMED CT 89728986 / Confirmed COPD (chronic obstructive pulmonary disease) / SNOMED CT 29186017 / Confirmed Chronic renal failure / SNOMED CT 596857613 / Confirmed Cigarette smoker / SNOMED CT 867418186 / Confirmed 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 / SNOMED CT 91606489 / Confirmed Depression / SNOMED CT 142733879 / Confirmed Vascular dialysis catheter in place / SNOMED CT 6628398629 / Confirmed SOBOE (shortness of breath on exertion) / SNOMED CT 926071885 / Confirmed STRAUSS (dyspnea on exertion) / SNOMED CT 592630819 / Confirmed End stage renal disease / SNOMED CT 29044271 / Confirmed Assistance needed with transportation / SNOMED CT 334109247 / Confirmed Glasses / SNOMED CT 7057752379 / Confirmed Hx of hyperparathyroidism / SNOMED CT 353399758 / Confirmed Headache / SNOMED CT 29993681 / Confirmed HFrEF (heart failure with reduced ejection fraction) / SNOMED CT 9723443794 / Confirmed History of fall 2000s, about 10 feet into gravel / SNOMED CT 4996563468 / Confirmed History of MRSA infection / SNOMED CT 0137680902 / Confirmed Hypertension / SNOMED CT [id number] / Confirmed Hypertensive urgency / SNOMED CT 5189949714 / Confirmed Impacted cerumen of right ear / SNOMED CT 66179690 / Confirmed Need for isolation / SNOMED CT 9261237038 / Confirmed Ankle injury / SNOMED CT 699382671 / Confirmed Low back pain with left-sided sciatica / SNOMED CT 020236342 / Confirmed Malrotation colon / SNOMED CT 50447091 / Confirmed Migraine / SNOMED CT 71243325 / Confirmed Mitral regurgitation / SNOMED CT 27613018 / Confirmed BMI 26.0-26.9,adult / SNOMED CT 0625208444 / Confirmed Medically noncompliant / SNOMED CT 7248340855 / Confirmed Pressure ulcer, stage 1 / SNOMED CT 5242531803 / Confirmed Left serous otitis media / SNOMED CT 747347303 / Confirmed Trigger finger, right middle finger / SNOMED CT 960435433 / Confirmed Weakness / SNOMED CT 10891576 / Confirmed Wrist sign / SNOMED CT 69207156 / Confirmed Resolved: Endocarditis / SNOMED CT 92296089 Resolved: 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) / SNOMED CT 9509625761 Canceled: Cholecystectomy / SNOMED CT 62484556 Canceled: Heart failure / SNOMED CT 306633484 Canceled: High blood pressure / SNOMED CT 90182952 Canceled: Kidney dialysis / SNOMED CT 894487144 Canceled: Kidney transplant / SNOMED CT 331003136 Canceled: Kidney transplant / SNOMED CT 792341750 Canceled: Low back pain with right-sided sciatica / SNOMED CT [id number] Canceled: Pneumonia / SNOMED CT [id number] Canceled: Shortness of breath / SNOMED CT [id number], Active Problems (41) Abdominal pain Acute hypoxic respiratory failure AICD (automatic cardioverter/defibrillator) present Anemia Ankle injury Anxiety Assistance needed with transportation BMI 26.0-26.9,adult 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 03/01/2014 EDT 11:50 MAINE SANCHEZ MD Last hemodialysis 02/28/14, full run per pt 04/26/2015 EST 12:27 MADONNA Thorpe Cleared for surgery 04/26/15. Anxiety (57087706) Comments: 03/01/2014 EDT 11:50 MAINE SANCHEZ MD active without cardiac limitations, EKG NSR without changes suggestive for ischemia Weakness (58863186) End stage renal disease (56023798) Comments: 08/09/2015 EST 12:48 MADONNA Thorpe Last hemodialysis 08/08/15. Headache (90520947) Migraine (12044815) Glasses (0692786810) Depression (808593900) Need for isolation (1443191197) Comments: 04/26/2015 EST 12:10 MADONNA Thorpe MRSA AICD (automatic cardioverter/defibrillator) present (1566229404) Comments: 04/26/2015 EST 12:26 MADONNA Thorpe The device is a Biotronik.May use a magnet per cardiology clearance. 08/09/2015 EST 12:51 MADONNA Thorpe Device placed 01/2015 is a Biotronik Itrevia 7 DR-T,model [id number];serial [id number] 08/09/2015 EST 12:52 MADONNA Thorpe Patient states device has never fired. Abdominal pain (60001538) Vascular dialysis catheter in place (9120163030) Comments: 08/02/2015 EST 12:10 MADONNA Sewell dialysis cath right chest Malrotation colon (98027654) Comments: 08/02/2015 EST 13:26 MADONNA Sewell noted on ct abd 07/02/2015 COPD (chronic obstructive pulmonary disease) (06536545) SOBOE (shortness of breath on exertion) (656198470) Cardiomyopathy (379494746) Comments: 08/09/2015 EST 12:47 EST - MADONNA [place] Echo 12/2014 EF 20%. 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 Resolved. Comments: 2022 EDT 8:37 EDT - MADONNA Crawford Removed disease alert on 2022 per Infection Prevention Policy patient has met criteria Endocarditis (04632105): Resolved. Family History: Diabetes mellitus Father Hypertension Father Heart disease Father Procedure history: Pacemaker ([id number]) on 01/24/2015 at 39 Years. Defibrillator (59878233) on 01/24/2015 at 39 Years. Comments: 12/28/2024 16:14 EDT - Millicent Maya RN Biotronik generator left chest Itrevia [id number] Biotronik RA Setrox S 60 [id number] Biotronik RV Linox Smart [id number] Cholecystectomy (85509920). Parathyroidectomy (95891931). Nasal septoplasty (24126745). Cholecystectomy (07070825). History of kidney transplant ([id number]). Comments: 08/23/2014 6:35 MADONNA Sanchez x 2 Hx of kidney transplant ([id number]). Dialysis catheter (3377058367). Kidney transplant (088946005). Parathyroid (2060194). Peritoneal procedure (5706684652). Comments: 08/02/2015 13:27 MADONNA Sewell catheters inserted [...] Oral36.7 DegC (JAN 26 05:30) Heart Rate Sewnwtdph15 bpm (JAN 26 08:20) OGG046 mmHg (JAN 26 08:22) DBP89 mmHg (JAN [...] Documentation reviewed: Current records. Assessment and Plan [place] [employer] Anesthesiologists (ASA) physical status classification: [...] CARMEN HOUSE DO on 01/26/2025 08:30 AM [facility] Note* Exam Date Time Procedure Performing Provider Status 01/26/25 8:02 AM ICD Generator Change KD RODRIGUEZ; Auth (Verified) [facility]pt[facility]n07-99-5511 Note* Exam Date Time Procedure Performing Provider Status 01/26/25 6:15 AM Electrocardiogram - EKG - CV Nav FREEMAN MD; Auth (Verified) ECG Final Report SINUS RHYTHM LEFT ANTERIOR FASCICULAR BLOCK LVH WITH SECONDARY REPOLARIZATION ABNORMALITY PROLONGED QT INTERVAL Electronic Signature: TERENCE FREEMAN MD 01/26/2025 23:36:43 [facility]Alayduch76-08-8470 Note* Exam Date Time Procedure Performing Provider Status 01/04/25 2:08 PM XR Chest 2 Views AJ DHALIWAL MD; [facility] (Verified) [id number] ORIGINAL EXAMINATION: TWO XRAY VIEWS OF THE [...] Sign Date: 01/04/2025 4:06:33 PM Ordering Provider: CARLGARDENIA GRAVES [facility]Iulbirlp67-37-0526 Hospital Discharge instructions Patient Education 12/20/2024 20:17:16 Hypertension, Adult, Kxlv-to-Xhvb Hypertension, Adult Hypertension is another name for [...] your doctor. This is important. Medicines Take zseh-lkq-dhpjshf and prescription medicines only as told by [...] 11/25/2008 Document Revised: 02/17/2019 Document Reviewed: 02/17/2019 [employer] Patient Education 2020 Programeter. 12/20/2024 20:16:44 Acute Respiratory Distress Syndrome, Adult [...] cases. Follow these instructions at home: Take ermc-kjm-lsujzxh and prescription medicines only as told by [...] 06/09/2006 Document Revised: 05/22/2018 Document Reviewed: 05/26/2017 [employer] Patient Education 2020 Programeter. 12/20/2024 20:13:55 Eating Plan for Dialysis, Exfa-dj-Ocly Eating Plan for Dialysis Dialysis is a [...] sodium. Look for foods that are labeled "sodium free," "reduced sodium," or "low sodium." Shopping Do not buy whole-grain and high-fiber [...] only as told by your doctor. Take wknb-ymu-etazxhl and prescription medicines only as told by [...] desserts Sherbet. Cakes. Cookies. Fats and oils [place] oil, canola oil, and safflower oil. Other [...] and cottage cheese. Processed cheese spreads. Beverages [place] juice. Prune juice. Carbonated soft drinks. Seasonings [...] 12/08/2012 Document Revised: 08/26/2018 Document Reviewed: 06/10/2018 [employer] Patient Education 2020 Programeter. 12/20/2024 20:13:02 Angina, Wlvj-vj-[place] Angina Angina is very bad discomfort or [...] Follow these instructions at home: Medicines Take zjmg-wgf-atfytap and prescription medicines only as told by [...] 11/25/2008 Document Revised: 01/25/2019 Document Reviewed: 01/25/2019 [employer] Patient Education 2020 Programeter. Follow Up Care 12/18/2024 00:14:18 With:YARA GUERRERO MD Address: [address] [facility] [address] [place] [address]- When:5 to 7 days [facility] 06-30-2025 Note Discharge Instructions Thank you for allowing [facility] to assist you with your healthcare needs. [...] Appointment Type When With Where [facility] 01/14/2025 10:30 AM [facility] 08/26/2025 12:30 PM EST MONIE ALSTON DO [facility] [address] [place] [address] Confirmed Follow Up Appointments Follow Up with YARA GUERRERO MD When:Within 5 to 7 days Where:[address] [address]- The Following Activity and Diet Have Been [...] times a day Refills: 3 Pickup at [facility]/pharmacy #4607 Changed carvedilol (carvedilol 6.25 mg oral tablet) 1 tab(s) by mouth Two (2) times a day Pickup at [facility]/pharmacy #4608 Changed isosorbide mononitrate (isosorbide mononitrate 30 mg oral tablet, extended release) 2 tab(s) by mouth Once a day before a meal Pickup at [facility]/pharmacy #4603 Unchanged acetaminophen (acetaminophen 325 mg oral capsule) 2 cap by mouth Every 4 hours as needed for for pain Unchanged albuterol (albuterol MDI (90 mcg/ inh) CFC free inhalation aerosol) 1 puff(s) by inhalation Every 4 hours as needed for as needed for wheezing Unchanged aspirin (aspirin 81 mg oral delayed release tablet) 1 tab(s) by mouth Every day Pickup at [facility]/pharmacy #4609 Unchanged atorvastatin (atorvastatin 40 mg oral tablet) 1 tab(s) by mouth Once a day Pickup at [facility]/pharmacy #4607 Unchanged budesonide-formoterol (Symbicort 80 mcg-4.5 mcg/ inh [...] times a day with meals Pharmacy Information [facility]/pharmacy #[id number]: [address], [place] [phone] What How Much When Comments Stop Taking [...] retail pharmacies. Medication Leaflets carvedilol (COLETTE ve dil ole) Coreg, Coreg CR What is the most [...] may report side effects to FDA at 6-359-PRN-8897. What other drugs will affect carvedilol? Sometimes it is not safe to use certain medications at the same time. Some drugs can affect your blood levels of other drugs you take, which may increase side effects or make the medications less effective. Other drugs may affect carvedilol, including prescription and wodx-pkf-nbzuzpf medicines, vitamins,and herbal products. Tell your doctor [...] to ensure that the information provided by [employer]. ('[employer]') is accurate, up-to-date, and complete, but no guarantee is made to that effect. Drug information contained herein may be time sensitive. [employer] information has been compiled for use by healthcare practitioners and consumers in the [place] and therefore [employer] does not warrant that uses outside of the [place] are appropriate, unless specifically indicated otherwise. [employer] drug information does not endorse drugs, diagnose patients or recommend therapy. [employer] drug information isan informational resource designed to [...] effective or appropriate for any given patient. [employer] does not assume any responsibility for any aspect of healthcare administered with the aid of information [employer] provides. The information contained herein is not intended to cover all possible uses, directions, precautions, warnings, drug interactions, allergic reactions, or adverse effects. If you have questions about the drugs you are taking, check with your doctor, nurse or pharmacist. Copyright 5234-5792 [employer]. Version: 16.01. Revision Date: 10/15/2018. hydralazine (kaiser [...] may report side effects to FDA at 8-365-CWR-2069. What other drugs will affect hydralazine? Tell your doctor about all your current medicines and any you start or stop using, especially: diazoxide (an injectable blood pressure medication); or an MAO inhibitor--isocarboxazid, linezolid, methylene blue injection, phenelzine, rasagiline, selegiline, tranylcypromine, and others. This list is not complete. Other drugs may interact with hydralazine, including prescription and awoc-fwn-yarinll medicines, vitamins, and herbal products. Not all [...] to ensure that the information provided by [employer]. ('[employer]') is accurate, up-to-date, and complete, but no guarantee is made to that effect. Drug information contained herein may be time sensitive. [employer] information has been compiled for use by healthcare practitioners and consumers in the [place] and therefore [employer] does not warrant that uses outside of the [place] are appropriate, unless specifically indicated otherwise. [employer] drug information does not endorse drugs, diagnose patients or recommend therapy. [employer] drug information isan informational resource designed to [...] effective or appropriate for any given patient. [employer] does not assume any responsibility for any aspect of healthcare administered with the aid of information [employer] provides. The information contained herein is not intended to cover all possible uses, directions, precautions, warnings, drug interactions, allergic reactions, or adverse effects. If you have questions about the drugs you are taking, check with your doctor, nurse or pharmacist. Copyright 7710-7883 [employer]. Version: 7.01. Revision Date: 01/24/2023. Education Materials [...] your doctor. This is important. Medicines Take eghz-fyz-euhsbjy and prescription medicines only as told by [...] 11/25/2008 Document Revised: 02/17/2019 Document Reviewed: 02/17/2019 [employer] Patient Education 2020 Programeter. Acute Respiratory Distress Syndrome, Adult Acute respiratory [...] cases. Follow these instructions at home: Take fmoj-cbk-njphmdn and prescription medicines only as told by [...] 06/09/2006 Document Revised: 05/22/2018 Document Reviewed: 05/26/2017 [employer] Patient Education 2020 [employer] Eating Plan for Dialysis Dialysis is a [...] sodium. Look for foods that are labeled "sodium free," "reduced sodium," or "low sodium." Shopping Do not buy whole-grain and high-fiber [...] only as told by your doctor. Take shzk-pwv-dtvvfgo and prescription medicines only as told by [...] desserts Sherbet. Cakes. Cookies. Fats and oils [place] oil, canola oil, and safflower oil. Other [...] and cottage cheese. Processed cheese spreads. Beverages [place] juice. Prune juice. Carbonated soft drinks. Seasonings [...] 12/08/2012 Document Revised: 08/26/2018 Document Reviewed: 06/10/2018 [employer] Patient Education 2020 Programeter. Angina Angina is very bad discomfort or [...] Follow these instructions at home: Medicines Take muik-kqm-lgjamxd and prescription medicines only as told by [...] In the [place] one drink equals: ? [facility]Elrstqoh57-98-4240 Note Date of Service 12/20/2024 Reason for Consultation Battery life Referring Physician Dr. [place] History of Present Illness This is a 49-year-old male with a past medical history significant for ESRD [on dialysis], mild CAD[[facility] 2022], heart failure with improved ejection fraction [...] with 6% battery life remaining. ICD inserted 2015 Biotronik. Currently set at DDD. No VT, [...] History of ESRD [on dialysis], mild CAD [[facility] 2022], heart failure with improved ejection fraction [...] needed with transportation BMI 26.0-26.9,adult 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 Cardiomyopathy Chest pain Chronic renal failure [...] resistant Staphylococcus aureus) Endocarditis Procedure/Surgical History Defibrillator: 08/04/15 Peritoneal procedure Kidney transplant Parathyroid Dialysis catheter [...] mRNA (tozinameran) vaccine: 0.3 unknown unit (05/07/21) tetanus/diphtheria/pertussMUL.ORD!k00566: 0.5 mL (10/23/20) tetanus/diphtheria/pertussMUL.ORD!v12657: 0.5 mL (11/19/13) Digitally Signed by CLARK GARIBAY MD on 12/20/2024 04:20 PM [facility] HospitalReacrbzl17-34-5750 Note Date of Service 12/20/24 Reason for [...] needed with transportation BMI 26.0-26.9,adult 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 Cardiomyopathy Chest pain Chronic renal failure [...] by MADONNA Monzon on 12/20/2024 12:32 PM [facility] HospitalRrmgmtvt95-70-5547 Note Date of Service 12/20/2024 Reason for Consultation Battery life Referring Physician Dr. [place] History of Present Illness This is a 49-year-old male with a past medical history significant for ESRD [on dialysis], mild CAD[[facility] 2022], heart failure with improved ejection fraction [...] History of ESRD [on dialysis], mild CAD [[facility] 2022], heart failure with improved ejection fraction [...] needed with transportation BMI 26.0-26.9,adult 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 Cardiomyopathy Chest pain Chronic renal failure [...] mRNA (tozinameran) vaccine: 0.3 unknown unit (05/07/21) tetanus/diphtheria/pertussMUL.ORD!m09631: 0.5 mL (10/23/20) tetanus/diphtheria/pertussMUL.ORD!s30304: 0.5 mL (11/19/13) Digitally Signed by CLARK GARIBAY MD on 12/20/2024 04:20 PM [facility] HospitalLsarvcwp92-34-6119 Nephrology Progress note Subjective resting Objective Vitals [...] ROBERT GARCIA MD on 12/20/2024 12:34 PM [facility] HospitalIgkhcbxp15-13-9290 Cardiology Progress note Date of Service 12/19/2024 Subjective Patient examined at bedside. Patient is alert oriented x 3. Denies any complaints. Background: A 49-year-old male with PMH of ESRD [on dialysis], CAD [mild; 09/2022], chronic HFimpEF [EF 50%; 09/2022], active smoker, hypertension, COPD, status post AICD in situ, presented as a transfer from [place] ED because of chest pain. On encounter, the patient was examined in room 323. He was intubated. As per the records, patient went to [place] ED because of midsternal chest pain radiating to the left arm. STEMI alert was called, her troponins were negative, EKG was not concerning for STEMI was aborted. Patient went into respiratory arrest and was intubated at [place] before transferring to CCU. Objective Vitals and [...] exacerbation 2. Nonischemic cardiomyopathy Patient presented to [place] ED because of chest pain Blood pressure on admission was 172/97, patient was intubated [results not documented well] CT PE protocol suggestive of pulmonary vascular congestion proBNP: 366359 ECHO [09/2024]: EF 50% [facility] Plan Fluid restriction to 1500 mL/day [...] CARMELO KIM MD on 12/19/2024 10:24 AM [facility] HospitalJwdsfeuu10-92-7250 Nephrology Progress note Date of Service December [...] CHAYA OWENS MD on 12/19/2024 09:41 AM [facility] HospitalDblpkodg73-86-9005 Cardiology Progress note Date of Service 12/19/2024 Subjective Patient examined at bedside. Patient is alert oriented x 3. Denies any complaints. Background: A 49-year-old male with PMH of ESRD [on dialysis], CAD [mild; 09/2022], chronic HFimpEF [EF 50%; 09/2022], active smoker, hypertension, COPD, status post AICD in situ, presented as a transfer from [place] ED because of chest pain. On encounter, the patient was examined in room 323. He was intubated. As per the records, patient went to [place] ED because of midsternal chest pain radiating to the left arm. STEMI alert was called, her troponins were negative, EKG was not concerning for STEMI was aborted. Patient went into respiratory arrest and was intubated at [place] before transferring to CCU. Objective Vitals and [...] exacerbation 2. Nonischemic cardiomyopathy Patient presented to [place] ED because of chest pain Blood pressure on admission was 172/97, patient was intubated [results not documented well] CT PE protocol suggestive of pulmonary vascular congestion proBNP: 434422 ECHO [09/2024]: EF 50% [facility] Plan Fluid restriction to 1500 mL/day [...] CARMELO KIM MD on 12/19/2024 10:24 AM [facility] HospitalTpoiqmuk74-47-4828 Note [facility] Cardiac Critical Care Progress Note Date: 12/19/2024 [...] s/p AICD in 2014 who presented to [facility] ED with chest pain radiating to his left arm. Troponin was negative and EKG was not concerning so STEMI was cancelled. He then went into respiratory distress and was intubated. Prior to transfer to [facility] CCU, a CT angio chest was negative [...] DBP C 45(DEC 19 06:12) C 36(DEC 18:28) C 129(DEC 18 08:27) [...] Nursing Notes. Critical Care services I provided 86442 45 minutes. The time involved in the [...] NOEMÍ MORENO MD on 12/19/2024 10:43 AM [facility] HospitalNlnpaybv64-93-6405 Nephrology procedure note Date of Service December 18, 2024 Patient seen in dialysis. Blood pressure has decreased into the 120s. He is more sedated however. Discussed with family at bedside. Next scheduled treatment will be Friday and possibly tomorrow if needed for volume Digitally Signed by CHAYA OWENS MD on 12/18/2024 04:21 PM [facility] HospitalYdzjwsoq25-98-4698 Nurse Progress note Velazquez catheter ordered and 40mg IVP lasix BID to be given. Pt family is at bedside, and sisterrefusing for pt to have velazquez catheter placed or lasix given. Dr. Kim is aware. Digitally Signed by Martinez Chu RN on 12/18/2024 02:42 PM [facility] HospitalZvfbqgdv60-95-0873 Evaluation + Plan noteExtracted from: Title:History and Physical Author:CARMELO KIM MD Date:12/18/24 1. Acute on chronic HFimpEF exacerbation 2. Nonischemic cardiomyopathy Patient presented to [place] ED because of chest pain Blood pressure on admission was 172/97, patient was intubated [results not documented well] CT PE protocol suggestive of pulmonary vascular congestion proBNP: 211121 ECHO [09/2024]: EF 50% [facility] Plan Fluid restriction to 1500 mL/day [...] Appointment Date:01/14/2025 10:30:00 AM Scheduled Provider:CARLTON COLORADO Location:[facility] Appointment Type:CV Hospital Follow Up Appointment Date:08/26/2025 12:30:00 PM Scheduled Provider:MONIE ALSTON DO Location:[facility] Appointment Type:PC Wellness Annual Future Scheduled Tests Laboratory* Lipoprotein (a) 09/24/24 * Apolipoprotein B 09/24/24 * TSH with Reflex to FT4 09/24/24 * Prostate Specific Antigen 09/24/24 * A1C Hemoglobin 09/24/24 * Lipid Profile 09/24/24 Radiology* MRI Spine Lumbar w/o Contrast 09/14/24 [facility] 06-28-2025 Critical care medicine Consult note [...] s/p AICD in 2014 who presented to [facility] ED with chest pain radiating to his left arm. Troponin was negative and EKG was not concerning so STEMI was cancelled. He then went into respiratory distress and was intubated. Prior to transfer to [facility], a CT angio chest was negative [...] 36.9(DEC 18 07:28) 36.9(DEC 18 07:28) 36.9(DEC 18 07:28) Heart Rate 76(DEC 18 11:28) 76(DEC 18 11:28) H 123(DEC 18 07:56) SBP 138(DEC 18 11:28) L 85(DEC 18 09:28) H 260(DEC 18 07:45) DBP 69(DEC 18 11:28) C 36(DEC 18 09:28) C 129(DEC 18 [...] 09:29:00 Potassium Level 5.3 mEq/L High 12/18/24 09::00 Chloride 100 mEq/L 12/18/24 09::00 CO2 20 mEq/L Low 12/18/24 09:29:00 BUN [...] Nursing Notes. Critical Care services I provided 83198 65 minutes. The time involved in the [...] NOEMÍ MORENO MD on 12/18/2024 12:20 PM [facility] HospitalSiznpnsz30-04-9273 History and physical note Date of Service 12/18/2024 Chief Complaint Chest Pain History of Present Illness A 49-year-old male with PMH of ESRD [on dialysis], CAD [mild; 09/2022], chronic HFimpEF [EF 50%; 09/2022], active smoker, hypertension, COPD, status post AICD in situ, presented as a transfer from [place] ED because of chest pain. On encounter, the patient was examined in room 323. He was intubated. As per the records, patient went to [place] ED because of midsternal chest pain radiating to the left arm. STEMI alert was called, her troponins were negative, EKG was not concerning for STEMI was aborted. Patient went into respiratory arrest and was intubated at [place] before transferring to CCU. Review of Systems [...] exacerbation 2. Nonischemic cardiomyopathy Patient presented to [place] ED because of chest pain Blood pressure on admission was 172/97, patient was intubated [results not documented well] CT PE protocol suggestive of pulmonary vascular congestion proBNP: 807671 ECHO [09/2024]: EF 50% [facility] Plan Fluid restriction to 1500 mL/day [...] needed with transportation BMI 26.0-26.9,adult 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 Cardiomyopathy Chest pain Chronic renal failure [...] mRNA (tozinameran) vaccine: 0.3 unknown unit (05/07/21) tetanus/diphtheria/pertussMUL.ORD!a52248: 0.5 mL (10/23/20) tetanus/diphtheria/pertussMUL.ORD!z67109: 0.5 mL (11/19/13) Code Status Code Status - Ordered -- 12/18/24 7:45:00 EDT, Full Code, Constant Order Digitally Signed by CARMELO KIM MD on 12/18/2024 11:03 AM [facility] HospitalAaqmghvo42-36-2206 History and physical note Date of Service 12/18/2024 Chief Complaint Chest Pain History of Present Illness A 49-year-old male with PMH of ESRD [on dialysis], CAD [mild; 09/2022], chronic HFimpEF [EF 50%; 09/2022], active smoker, hypertension, COPD, status post AICD in situ, presented as a transfer from [place] ED because of chest pain. On encounter, the patient was examined in room 323. He was intubated. As per the records, patient went to [place] ED because of midsternal chest pain radiating to the left arm. STEMI alert was called, her troponins were negative, EKG was not concerning for STEMI was aborted. Patient went into respiratory arrest and was intubated at [place] before transferring to CCU. Review of Systems [...] exacerbation 2. Nonischemic cardiomyopathy Patient presented to [place] ED because of chest pain Blood pressure on admission was 172/97, patient was intubated [results not documented well] CT PE protocol suggestive of pulmonary vascular congestion proBNP: 574930 ECHO [09/2024]: EF 50% [facility] Plan Fluid restriction to 1500 mL/day [...] needed with transportation BMI 26.0-26.9,adult 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 Cardiomyopathy Chest pain Chronic renal failure [...] mRNA (tozinameran) vaccine: 0.3 unknown unit (05/07/21) tetanus/diphtheria/pertussMUL.ORD!n54309: 0.5 mL (10/23/20) tetanus/diphtheria/pertussMUL.ORD!a89937: 0.5 mL (11/19/13) Code Status Code Status - Ordered -- 12/18/24 7:45:00 EDT, Full Code, Constant Order Digitally Signed by CARMELO KIM MD on 12/18/2024 11:03 AM [id number] Nephrology Consult note Date of Service December [...] but no PE. He was transferred to [facility] for cardiac evaluation. Patient did develop respiratory [...] alpha (Retacrit / Procrit) 10,000 unit(s)/mL (DIALYSIS)), 57822 unit(s)= 1 mL,IV Push, prep pharm Dialysis [...] needed with transportation BMI 26.0-26.9,adult 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 Cardiomyopathy Chest pain Chronic renal failure Cigarette smoker COPD (chronic obstructive pulmonary disease) Coronary artery calcification, severe on CT 2024 Depression STRAUSS (dyspnea on exertion) End stage renal disease Glasses Headache HFrEF (heart failure with reduced ejection fraction) History of fall 1999s, about 10 feet into gravel History of [...] alpha (Retacrit / Procrit) 10,000 unit(s)/mL (DIALYSIS), 88478 unit(s)= 1 mL, IV Push, preppharm isosorbide [...] mRNA (tozinameran) vaccine: 0.3 unknown unit (05/07/21) tetanus/diphtheria/pertussMUL.ORD!t10552: 0.5 mL (10/23/20) tetanus/diphtheria/pertussMUL.ORD!d98068: 0.5 mL (11/19/13) Digitally Signed by CHAYA OWENS MD on 12/18/2024 08:47 AM [id number] Note* Exam Date Time Procedure Performing Provider Status 12/18/24 8:13 AM XR Chest 1 View JAYCOB GRIMALDO; Auth (Verified) [id number] ORIGINAL EXAMINATION: ONE XRAY VIEW OF THE [...] 12/18/2024 8:34:21 AM Ordering Provider: NOEMÍ MORENO [id number] Note* Exam Date Time Procedure Performing Provider Status 12/18/24 7:53 AM Electrocardiogram - EKG - CV TONI DENTON MD; Auth (Verified) ECG Final Report SINUS OR ECTOPIC ATRIAL TACHYCARDIA BORDERLINE IVCD WITH LAD PROBABLE ANTERIOR INFARCT, AGE INDETERMINATE PROLONGED QT INTERVAL Electronic Signature: TREY DENTON MD 12/19/2024 17:14:18 [id number] Note* Exam Date Time Procedure Performing Provider Status 12/18/24 6:42 AM XR Chest 1 View RAYMON CALLE MD; Auth (Verified) [id number] ORIGINAL EXAMINATION: ONE XRAY VIEW OF THE [...] 12/18/2024 6:50:32 AM Ordering Provider: HÉCTOR JEONG [facility]06-28-2025 Note* Exam Date Time Procedure Performing Provider Status 12/18/24 5:09 AM EKG [ED AOH] - CV ADENIKE HÉCTOR MANZANO; A cox monett (Verified) ECG Final Report Sinus rhythm Probable left atrial enlargement Left anterior fascicular block Prolonged QT interval EKG interpretation is noted and agreed to in [employer]. The interpretation of this patient's EKG contributed directly to the care and management of this patient. Electronic Signature: HÉCTOR JEONG DO 12/18/2024 06:09:22 [facility]06-28-2025 Note* Exam Date Time Procedure Performing Provider Status 12/18/24 5:[address] Angiography Chest w/ Contrast RAYMON CALLE MD; Auth (Verified) [id number] ORIGINAL EXAMINATION: CTA OF THE CHEST 12/18/2024 [...] Sign Date: 12/18/2024 5:24:11 AM Ordering Provider: [facility]06-28-2025 Note* Exam Date Time Procedure Performing Provider Status 12/18/24 1:57 AM EKG [ED AOH] - HÉCTOR MCKEON DO; A uth (Verified) ECG Final Report Sinus rhythm Probable left atrial enlargement Left anterior fascicular block Prolonged QT interval This EKG was read and contributed directly to the care of the patient Electronic Signature: HÉCTOR JEONG DO 12/18/2024 02:06:19 [facility]06-27-2025 Note* Exam Date Time Procedure Performing Provider Status 12/17/24 10:29 PM XR Chest 1 View OMER MARKS DO; Auth (Verified) [id number] ORIGINAL EXAMINATION: ONE XRAY VIEW OF THE [...] 12/17/2024 11:40:51 PM Ordering Provider: HÉCTOR JEONG [facility]06-27-2025 Note* Exam Date Time Procedure Performing Provider Status 12/17/24 9:32 PM EKG [ED AOH] - CV HÉCTOR JEONG DO; A cox monett (Verified) ECG Final Report Sinus rhythm Borderline prolonged [place] interval Probable left atrial enlargement Left anterior fascicular block Nonspecific T abnormalities, lateral leads Borderline prolonged QT interval EKG interpretation is noted and agreed to in [employer]. The interpretation of this patient's EKG contributed directly to the care and management of this patient. Electronic Signature: HÉCTOR JEONG DO 12/17/2024 23:27:50 [facility]06-18-2025 Consult note* Bryan Torres, LV MONTES - 12/08/2024 9:54 AM EDTAssociated Order(s): IP CONSULT TO ACUTE CARE SURGERY [facility] ACUTE CARE SURGERY - HISTORY AND [...] Patient seen and discussed with Attending Dr. Lwa Torres [facility] Pager [phone] CHIEF COMPLAINT/REASON FOR CONSULT: Mr. Sweeney is [...] developing low grade obstruction. Therefore transferred to [facility] for higher level of care. Patient now [...] Iodinated Contrast Media Fever Penicillin G Hives [facility] Work Phone: 1(627) 465-725906-18-2025 Consult note* JEROD Houser - 12/08/2024 9:54 AM EDTAssociated Order(s): IP CONSULT TO ACUTE CARE SURGERY [facility] ACUTE CARE SURGERY - HISTORY AND [...] and discussed with Attending Dr. Law Torres APRN-[facility] Acute Care Surgery Pager [phone] CHIEF COMPLAINT/REASON FOR CONSULT: Mr. Sweeney is [...] developing low grade obstruction. Therefore transferred to [facility] for higher level of care. Patient now [...] Fever Penicillin G Hives documented in [facility]University [facility] Work Phone: 1(138) 378-319106-18-2025 Emergency department Triage note* Napoleon Lopez RN - 12/08/2024 5:48 AM EDT Pt is a transfer from [place] after experiencing abdominal pain for the past week. Per EMS pt was found to have a bowel obstruction. Pt has a hx of kidney transplant 1996, dialysis fri-fri, and pacemaker. [facility] Work Phone: 1(926) 711-367306-18-2025 Emergency department Note* Napoleon Lopez RN - 12/08/2024 5:48 AM EDT Pt is a transfer from [place] after experiencing abdominal pain for the past week. Per EMS pt was found to have a bowel obstruction. Pt has a hx of kidney transplant 1996, dialysis fri-fri, and pacemaker. documented in this encounterUniversity [facility] Work Phone: 1(794) 896-980006-18-2025 Radiology Diagnostic study note [facility] Imaging Services [address] [place] [address] [id number] Abdomen/Pelvis W IV Cont ONLY MR#: [id number] Acct: [id number] Name: CARLITOS SWEENEY Rep #: [id number] : 1975 M 49 From: Merrick Carrillo MD PCP: Dr. Monie Alston, DO Status: REG ER Study:Abdomen/Pelvis W IV Cont ONLY Date of E xam: 12/07/24 Exam# [id number] Ordering Dr: López Marinelli MD PROCEDURE: ABDOMEN/PELVIS [...] which may represent lymph nodes. Reading Location: [id number] CC: Dr. Monie Alston DO; Dr. Blaise Marinelli MD ~ Property Loss Insurance Claim Adjuster: Signed [facility]06-17-2025 Hospital Discharge instructions Patient Education 12/06/2024 22:29:47 [...] injured area. Frequent bruising for unknown reasons [id number] [employer]. [address] [place] [address]. All rights reserved. This information is not [...] thin towel or cloth. You may use mjrd-oxt-leciwpl pain medicine (NSAIDS or nonsteroidal anti- inflammatory [...] or is irritated You re-injure your ankle 5928-8650 [employer]. [address] [place] [address]. All rights reserved. This information is not intended as a substitute for professional medical care. Always follow yourhealthcare professional's instructions. Follow Up Care 12/06/2024 20:04:18 With:DANA LEO MD, Orthopedic Address: [address] [place] [address] [address] [facility] [place] [address]- [phone] When:2-4 days With:MONIE ALSTON DO Address: [address] [place] [phone]- [phone] When:2-4 days [facility] 06-16-2025 Emergency department Discharge summary Discharge Instructions Thank you for allowing [facility] to assist you with your healthcare needs. [...] DANA LEO MD, Orthopedic When:Within 2-4 days Where:[address] [place] [address] 2 [facility] [place] [address]- [phone] Follow Up with MONIE ALSTON DO When:Within 2-4 days Where:[address] [place] [phone] [phone] Allergies penicillin (Moderate) Anaphylaxis, rash Contrast dye [...] injured area. Frequent bruising for unknown reasons 8254-2165 [employer]. [address] [place] [address]. All rights reserved. This information is not [...] thin towel or cloth. You may use qlgg-pfx-ddsrqsi pain medicine (NSAIDS or nonsteroidal anti- inflammatory [...] or is irritated You re-injure your ankle 5001-8498 [employer]. [address] [place] [address], [place] [address]. All rights reserved. This information is not intended as a substitute for professional medical care. Always follow yourhealthcare professional's instructions. Additional Information VACCINATE! IT SAVES LIVES! Members of the community who have not yet received the COVID-19 vaccine and would like to receive it can visit one of [facility] vaccine clinics. There are many vaccine clinic locations within the [facility]. For locations and available times, please visit www.[email or web address].[email or web address]/. It is important to note that some COVID mobile vaccine clinics are held outdoors and may be canceled in rainy or stormy conditions. To learn more about pediatric vaccinations (ages 5-11), we invite you to visit the [facility] webpage. https://www.[email or web address].[email or web address]/pages/[email or web address]-Qgmes-Yfgvpbseezs-Vqnnjaokfi-Uxizm-Erg stions.htmlTo learn more about the COVID-19 vaccine, we invite you to visit the CDC website for a list of frequently asked questions. https://www.cdc.gov/coronavirus/2019-ncov/vaccines/faq.html [facility] Patient Portal Access Instructions: Stay connected with your healthcare team and access your personal medical information anytime with the [facility] Patient Portal. If you would like a full copy of your medical records please contact the [facility] Medical Records Department Friday through Friday between 8a.m. and 4:30p.m. Please follow the directions below to access the portal: 1.Access the email account you provided upon registration to the hospital.2.Look for an invitation email from [facility].3.Open the email and access the invitation link: Accept Invitation to [facility]4.Fill in the required luis to create your account. Sign into www.[employer] with your username and password that you [...] you will allow to register on the [facility] Patient Portal for access to your information. You can also access the [facility] Patient Portal on the devsisters. Simply click on "Health Records" under "HealthData" and then click on the [employer] logo. HOW TO SAFELY DISPOSE OF PRESCRIPTION [...] Call your local pharmacy or go to [email or web address] [email or web address]/[email or web address] to find one close to you.3.Make use of household items: Use cat litter or old coffee grounds to dispose medications if other options arenot available. Mix your drugs with these household products, seal them in an airtight container andthrow it into the garbage. Call [facility]: [phone] to be sure your drugs can be [...] that I should contact my doc tor. 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 Vascular calcifications. Os peroneum seen. IMPRESSION: No acute fracture or dislocation. I have personally reviewed the images of this examination and agree with the resident's findings and interpretation. Interpreted by: Lyle Braswell Preliminary Report By: Ranjith Donovan Electronically signed By Lyle Braswell Dictated Date: 12/06/2024 9:46:46 PM Prelim Date: 12/06/2024 9:52:03 PM Sign Date: 12/06/2024 10:00:33 PM Ordering Provider: ODILIA DAVILA [address]04-2025 Instructions* Patient Instructions* Columba Keith APRN.JYOTI - 11/24/2024 12:55 PM EDT ASSESSMENT/PLAN: 1. [...] Discussed expected course of illness Columba Keith APRN.GAS MAKER documented in this encounterDayton Children'S Hospital06-04-2025 NoteHNO ID: [id number] Author: COLUMBA KEITH APRN.GAS MAKER Service: ? Author Type: Nurse Practitioner Type: [...] ([facility]) 08/18/2015 Seeing cardio in [place] (has pace maker/defibulator) - Chronic kidney disease, stage 5 ([facility]) Dialysis M,W,F @ [facility] - Chronic obstructive pulmonary disease ([facility]) 08/18/2015 - Chronic obstructive pulmonary disease ([facility]) 08/18/[address] Barber ([facility]) - Congenital solitary kidney pt was born [...] substance agreement and [facility]ox [facility]. If cancels or No Shows [...] CHOLECYSTECTOMY - INSJ TUNNELED CVC W/O SUBQ PORT/LIQUIFIED NATURAL GAS TECHNICIAN AGE 3 YR/> 01/21/2014 - PAST SURGICAL [...] Per [facility] - sevelamer carbonate (KHARI (more content not included)...[facility]06-04-2025 History of Present illness Narrative* Columba Keith APRN.GAS MAKER - 11/24/2024 12:49 PM EDT [facility] Subjective Carlitos Sweeney is [...] renal failure (HCC) ([facility]) 07/01/2022 Anxiety 10/01/2013 Arteriovenous fistula, acquired ([facility]) 11/21/2022 BENIGN HYP RENAL W KID FAIL 02/11/2005 Cardiomyopathy ([facility]) 07/01/2022 Echo 12/2014 EF 20%. Chronic combined systolic and diastolic CHF (congestive heart failure) ([facility]) 08/18/2015 Seeing cardio in [place] (has pace maker/defibulator) Chronic kidney disease, stage 5 ([facility]) Dialysis M,W,F @ [facility] Chronic obstructive pulmonary disease ([facility]) 08/18/2015 Chronic obstructive pulmonary disease ([facility]) 08/18/[address] Barber ([facility]) Congenital solitary kidney pt was born with [...] dysf CHOLECYSTECTOMY INSJ TUNNELED CVC W/O SUBQ PORT/LIQUIFIED NATURAL GAS TECHNICIAN AGE 3 YR/> 01/21/2014 PAST SURGICAL HISTORY [...] by mouth twice daily with meals. Per [facility] sevelamer carbonate (RENVELA) 800 mg tablet [...] Discussed expected course of illness Columba Keith APRN.JYOTI History and Record Review Clinical information obtained from an independent historian. History obtained from or confirmed by:spouse. Disposition The patient was discharged. OTC Medications were advised: Procedures documented in this encounterDayton Children'S Hospital04-28-2025 NoteHNO ID: [id number] Author: CHAYA BRIDGES MD Service: ? Author [...] to monitor and follow up with his nurse wound with concerns. Chaya Bridges MD Differential Diagnoses - distal nasal epistaxis from mechanical abrasion is more likely for the following reason(s): suggested by [facility]P ProceduresKeenan [facility]03-18-2025 Evaluation note* Diagnosis Onset Date Resolution Status Admit Date Anemia of chronic disease chronic September 07, 2024 2:27pm Coronary artery disease chronic [facility] 2024 2:27pm Dyslipidemia chronic September 07, 2024 2:27pm ESRD (end stage renal diseas e) on dialysis chronic September 07, 2024 2:27pm Essential hypertension chronic [facility] 2024 2:27pm Non-ischemic cardiomyopathy chronic September 07, 2024 2:27pm S/P internal cardiac defibrillator procedure chronic September 072024 2:27pm [facility] Work Phone: 1([phone]) 116-533603-12-2025 Telephone encounter Note* Telephone Encounter - Yessy Bridges - 09/01/2024 2:50 PM EDT Left voicemail for patient to call office to update/verify correct mailing address. [facility] Work Phone: 1(352) 681-639003-12-2025 Miscellaneous Notes* Telephone Encounter - Yessy Bridges - 09/01/2024 2:50 PM EDT Left voicemail for patient to call office to update/verify correct mailing address. documented in this encounterDayton Children'S Hospital03-04-2025 Note* Exam Date Time Procedure Performing Provider Status 08/24/24 3:49 PM XR Spine Lumbar Flex /Ext w/Obliques JAYCOB GRIMALDO MD; Auth (Verified) [id number] ORIGINAL EXAMINATION: 7 XRAY VIEWS OF THE [...] Sign Date: 08/24/2024 4:23:52 PM Ordering Provider: [facility]02-12-2025 Telephone encounter Note* Telephone Encounter - Yessy Bridges - 08/04/2024 2:32 PM EST Received returned mail from post office, triend calling patient to verify correct address, no answer and no v/m available. [facility] Work Phone: 1(158) 237-454902-12-2025 Miscellaneous Notes* Telephone Encounter - Yessy Bridges - 08/04/2024 2:32 PM EST Received returned mail from post office, triend calling patient to verify correct address, no answer and no v/m available. documented in this encounterDayton Children'S Hospital12-08-2024 NoteHNO ID: [id number] Author: SOILA MARIA APRN.GAS MAKER Service: ? Author Type: Nurse Practitioner Type: [...] history is provided by the patient. No manager technical support was used. URI He complains of cough, [...] renal failure (HCC) ([facility]) 07/01/2022 Anxiety 10/01/2013 Arteriovenous fistula, acquired ([facility]) 11/21/2022 BENIGN HYP RENAL W KID FAIL 02/11/2005 Cardiomyopathy ([facility]) 07/01/2022 Echo 12/2014 EF 20%. Chronic combined systolic and diastolic CHF (congestive heart failure) ([facility]) 08/18/2015 Seeing cardio in [place] (has pace maker/defibulator) Chronic kidney disease, stage 5 (HCC) Dialysis M,W,F @ [facility] Chronic obstructive pulmonary disease ([facility]) 08/18/2015 Chronic obstructive pulmonary disease ([facility]) 08/18/[address] Barber ([facility]) Congenital solitary kidney pt was born with [...] dysf CHOLECYSTECTOMY INSJ TUNNELED CVC W/O SUBQ PORT/LIQUIFIED NATURAL GAS TECHNICIAN AGE 3 YR/> 01/21/2014 PAST SURGICAL HISTORY [...] food. hydrALAZINE (APRESOLINE) 50 (more content not included)...[facility]12-08-2024 History of Present illness Narrative* Soila Maria APRN.GAS MAKER - 05/30/2024 11:57 AM EST This note [...] history is provided by the patient. No manager technical support was used. URI He complains of cough, [...] renal failure (HCC) ([facility]) 07/01/2022 Anxiety 10/01/2013 Arteriovenous fistula, acquired ([facility]) 11/21/2022 BENIGN HYP RENAL W KID FAIL 02/11/2005 Cardiomyopathy ([facility]) 07/01/2022 Echo 12/2014 EF 20%. Chronic combined systolic and diastolic CHF (congestive heart failure) ([facility]) 08/18/2015 Seeing cardio in [place] (has pace maker/defibulator) Chronic kidney disease, stage 5 ([facility]) Dialysis M,W,F @ [facility] Chronic obstructive pulmonary disease ([facility]) 08/18/2015 Chronic obstructive pulmonary disease ([facility]) 08/18/[address] Barber ([facility]) Congenital solitary kidney pt was born with [...] dysf CHOLECYSTECTOMY INSJ TUNNELED CVC W/O SUBQ PORT/LIQUIFIED NATURAL GAS TECHNICIAN AGE 3 YR/> 01/21/2014 PAST SURGICAL HISTORY [...] by mouth twice daily with meals. Per [facility] sevelamer carbonate (RENVELA) 800 mg tablet [...] sooner should any other issues arise. Soila Marai APRN.JYOTI documented in this encounterDayton Children'S Hospital10-22-2024 NoteHNO ID: [id number] Author: SOILA MARIA APRN.JYOTI Service: ? Author Type: Nurse Practitioner Type: [...] history is provided by the patient. No manager technical support was used. Cough This is a new [...] renal failure (HCC) ([facility]) 07/01/2022 Anxiety 10/01/2013 Arteriovenous fistula, acquired ([facility]) 11/21/2022 BENIGN HYP RENAL W KID FAIL 02/11/2005 Cardiomyopathy ([facility]) 07/01/2022 Echo 12/2014 EF 20%. Chronic combined systolic and diastolic CHF (congestive heart failure) ([facility]) 08/18/2015 Seeing cardio in [place] (has pace maker/defibulator) Chronic kidney disease, stage 5 ([facility]) Dialysis M,W,F @ [facility] Chronic obstructive pulmonary disease ([facility]) 08/18/2015 Chronic obstructive pulmonary disease ([facility]) 08/18/[address] Barber ([facility]) Congenital solitary kidney pt was born with solitary atrophic kidney Elevated hemoglobin A1c 10/13/2020 End stage renal failure on dialysis ([facility]) 02/12/2017 Essential hypertension 09/10/2013 Gastroesophageal reflux disease without esophagitis 10/23/2016 H/O: endocrine disorder 07/01/2022 Comment on above: HYPERPARATHYROIDISM - DR HERNANDEZ NOTES Hemodialysis patient (HCC) 03/28/2016 History of cardiac pacemaker in situ [...] dysf CHOLECYSTECTOMY INSJ TUNNELED CVC W/O SUBQ PORT/LIQUIFIED NATURAL GAS TECHNICIAN AGE 3 YR/> 01/21/2014 PAST SURGICAL HISTORY [...] by mouth three time (more content not included)...[facility]10-22-20[facility] History of Present illness Narrative* Soila Maria APRN.GAS MAKER - 04/13/2024 2:44 PM EDT This note was created using [employer]ex. Subjective Carlitos Sweeney is a 48 year [...] history is provided by the patient. No manager technical support was used. Cough This is a new [...] ([facility]) 08/18/2015 Seeing cardio in [place] (has pace maker/defibulator) Chronic kidney disease, stage 5 ([facility]) Dialysis M,W,F @ [facility] Chronic obstructive pulmonary disease ([facility]) 08/18/2015 Chronic obstructive pulmonary disease ([facility]) 08/18/[address] Barber ([facility]) Congenital solitary kidney pt was born with [...] dysf CHOLECYSTECTOMY INSJ TUNNELED CVC W/O SUBQ PORT/LIQUIFIED NATURAL GAS TECHNICIAN AGE 3 YR/> 01/21/2014 PAST SURGICAL HISTORY [...] by mouth twice daily with meals. Per [facility] sevelamer carbonate (RENVELA) 800 mg tablet [...] Prednisone taper Discussed red flags Soila Maria APRN.GAS MAKER documented in this encounterDayton Children'S Hospital10-10-2024 History of Present illness Narrative* Christian [...] PATIENT PRESENTS WITH AN IMPLANTABLE OR ATTACHED PEDIGREE RESEARCHER: No RADIOLOGY DEPARTMENT: General X-ray: Exam(s) Completed: Spine X-Ray(s): Lumbar AP / LAT / L5-S1 PERIPHERAL IV DATA: Not applicable SIGNED BY: RT Zoltan(R) April 01, 2024 2:53 PM documented in this encounterDayton Children'S Hospital10-10-2024 NoteHNO ID: [id number] Author: CHRISTIAN FOSS RT(R) Service: ? Author [...] PATIENT PRESENTS WITH AN IMPLANTABLE OR ATTACHED PEDIGREE RESEARCHER: No RADIOLOGY DEPARTMENT: General X-ray: Exam(s) Completed: Spine X-Ray(s): Lumbar AP / LAT / L5-S1 PERIPHERAL IV DATA: Not applicable SIGNED BY: RT Zoltan(R) April 01, 2024 2:53 [facility]10-10-2024 NoteHNO ID: [id number] Author: CHRISTAL LIMA PA Service: ? Author Type: Physician Inflated Pad Buffer Type: Progress Notes Filed: 04/01/2024 15:26 Note Text: This note was created using dELiAsriter. Subjective Carlitos Sweeney is a 48 year [...] history is provided by the patient. No manager technical support was used. Back Pain This is a [...] ([facility]) 08/18/2015 Seeing cardio in [place] (has pace maker/defibulator) Chronic kidney disease, stage 5 ([facility]) Dialysis M,W,F @ [facility] Chronic obstructive pulmonary disease ([facility]) 08/18/2015 Chronic obstructive pulmonary disease ([facility]) 08/18/[address] Barber ([facility]) Congenital solitary kidney pt was born with solitary atrophic kidney Elevated hemoglobin A1c 10/13/2020 End stage renal failure on dialysis ([facility]) 02/12/2017 Essential hypertension 09/10/2013 Gastroesophageal reflux disease without esophagitis 10/23/2016 H/O: endocrine disorder 07/01/2022 Comment on above: HYPERPARATHYROIDISM - DR HERNANDEZ NOTES Hemodialysis patient (HCC) 03/28/2016 History of cardiac pacemaker in situ [...] TUNNELED CVC W/O SUBQ (more content not included)...[facility]10-10-2024 History of Present illness Narrative* Christal Lima PA - 04/01/2024 2:49 PM EDT Images from the original note were not included. This note was created using NoteWriter. Subjective [...] history is provided by the patient. No manager technical support was used. Back Pain This is a [...] renal failure (HCC) ([facility]) 07/01/2022 Anxiety 10/01/2013 Arteriovenous fistula, acquired ([facility]) 11/21/2022 BENIGN HYP RENAL W KID FAIL 02/11/2005 Cardiomyopathy (HCC) 07/01/2022 Echo 12/2014 EF 20%. Chronic combined systolic and diastolic CHF (congestive heart failure) ([facility]) 08/18/2015 Seeing cardio in [place] (has pace maker/defibulator) Chronic kidney disease, stage 5 ([facility]) Dialysis M,W,F @ [facility] Chronic obstructive pulmonary disease ([facility]) 08/18/2015 Chronic obstructive pulmonary disease ([facility]) 08/18/[address] Barber ([place]) Congenital solitary kidney pt was born with [...] dysf CHOLECYSTECTOMY INSJ TUNNELED CVC W/O SUBQ PORT/LIQUIFIED NATURAL GAS TECHNICIAN AGE 3 YR/> 01/21/2014 PAST SURGICAL HISTORY [...] by mouth twice daily with meals. Per [facility] sevelamer carbonate (RENVELA) 800 mg tablet [...] or worsen Amalia Graf Student TEACHING PROVIDER (Physician/PA/TYPE CUTTER) NOTE OF PERSONAL INVOLVEMENT IN CARE: I have personally seen and examined the patient and performed the medical decision-making components. I have reviewed the Advanced Practice Registered Nurse (TYPE CUTTER) Student's documentation and verified the findings in the note as written. Any additions or changes are noted in bold/italics. Signature: Christal Lima Date: 04/01/2024 Time: 3:24 PM documented in this encounterDayton Children'S Hospital05-22-2024 History of Present illness Narrative* Gio Velarde MD - 11/12/2023 10:42 AM EDT Images from the original note were not included. Heart , Vascular and Thoracic [place] DEPARTMENT OF VASCULAR SURGERY OUTPATIENT VISIT DATE [...] ([facility]) 08/18/2015 Seeing cardio in [place] (has pace maker/defibulator) Chronic kidney disease, stage 5 ([facility]) Dialysis M,W,F @ [facility] Chronic obstructive pulmonary disease ([facility]) 08/18/2015 Chronic obstructive pulmonary disease ([facility]) 08/18/[address] Barber ([place]) Congenital solitary kidney pt was born with solitary atrophic kidney Elevated hemoglobin A1c 10/13/2020 End stage renal failure on dialysis ([facility]) 02/12/2017 Essential hypertension 09/10/2013 Gastroesophageal reflux disease without esophagitis 10/23/2016 H/O: endocrine disorder 07/01/2022 Comment on above: HYPERPARATHYROIDISM - DR HERNANDEZ NOTES Hemodialysis patient (HCC) 03/28/2016 History of cardiac pacemaker in situ [...] dysf CHOLECYSTECTOMY INSJ TUNNELED CVC W/O SUBQ PORT/LIQUIFIED NATURAL GAS TECHNICIAN AGE 3 YR/> 01/21/2014 PAST SURGICAL HISTORY [...] 2023 TIME: 10:42 AM documented in this encounterDayton Children'S Hospital04-07-2024 Miscellaneous Notes* Telephone Encounter - Vania Castellon, DARION.GAS MAKER - 09/28/2023 11:11 PM EDT [facility] After [facility] [place] In [place] Call Physician: Dr. Velarde Reason for Call; Leg Pain Resolution: See below Pt calling with LLE pain at calf running down the back of his leg - describes pain as sore and achy. Pain started early this morning "sharp pain" that eased up and went away; has [...] Turner APRN.CNP 11:14 PM documented in this encounterDayton Children'S Hospital03-05-2024 Miscellaneous Notes* Telephone Encounter - Radha Sethi - 08/26/2023 9:11 AM EST Toby patricia. This patient is stating he has dialysis on fri and fri and unable to make his follow up appt, he is wanting to know can he see his pcp for his post op. (Advised would send you a message toask) documented in this encounterDayton Children'S Hospital02-20-2024 Miscellaneous Notes* Telephone Encounter - Fredis Marquez APRN.CNP - 08/12/2023 8:40 PM EST Pt called [...] and concerns were addressed. documented in this encounterDayton Children'S Hospital02-20-2024 Miscellaneous Notes* Telephone Encounter - Abigail Viveros LPN - 08/12/2023 7:40 PM EST Patient calling regarding rt arm discolored, itching, hard to touch. Conferenced to [facility] [place] straight pin making machine operator, Aura, to speak with provider turf sales person for Dr. Velarde. Abigail Viveros LPN documented in this encounterDayton Children'S Hospital02-14-2024 Miscellaneous Notes* Telephone Encounter - Emi Muñoz - 08/06/2023 11:59 AM EST Spoke with Carlitos, provided surgery arrival time of 8am to J1-2,NPO after midnight follow medication guidelines and blood thinners if any documented in this encounterDayton Children'S Hospital02-13-2024 Miscellaneous Notes* Telephone Encounter - Zoë Mendoza RN - 08/05/2023 11:22 AM EST Spoke with patient regarding previous message. Patient reports right fingers "numb" and have a slight "pinkish/ purple color. Denies worsening ulcerations or pain [...] has a sharp pain. documented in this encounterDayton Children'S Hospital02-09-2024 Miscellaneous Notes* Telephone Encounter - Zoë [...] to get surgery rescheduled documented in this encounterDayton Children'S Hospital02-01-2024 Miscellaneous Notes* Telephone Encounter - Zoë Mendoza RN - 07/24/2023 11:31 AM EST LVM to patient advising to return my call to reschedule surgery with Dr Velarde. Provided call backnumber. documented in this encounterDayton Children'S Hospital12-13-2023 History of Present illness Narrative* Gio Velarde MD - 06/04/2023 10:09 AM EST Images from the original note were not included. Heart , Vascular and Thoracic [place] DEPARTMENT OF VASCULAR SURGERY OUTPATIENT VISIT DATE June 04, 2023 OUTPATIENT VISIT TYPE CONSULTATION SERVICE DATE: 06/04/2023 SERVICE TIME: 10:09 AM PRIMARY CARE PHYSICIAN: Monie Alston DO REFERRING PROVIDER: SELF Consult requested for an opinion regarding the [...] syndrome. He is seeing Dr. Velazquez in [place] who seems to support that he should [...] ([facility]) 08/18/2015 Seeing cardio in [place] (has pace maker/defibulator) Chronic kidney disease, stage 5 ([facility]) Dialysis M,W,F @ [facility] Chronic obstructive pulmonary disease ([facility]) 08/18/2015 Chronic obstructive pulmonary disease ([facility]) 08/18/[address] 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 Per [facility] busPIRone (BUSPAR) 5 mg tablet Take [...] (Src) 97.2 (Oral) Resp 16 Ht 6' 0" (1.83m) Wt 163 lb 14.4oz (74.3kg) SpO2 [...] and stress test. He is seeing his nurse wound tomorrow. PLAN and RECOMMENDATIONS: As above informed symptoms provide SIGNATURE: Gio Velarde MD PATIENT NAME: Carlitos Sweeney DATE: June 04, 2023 TIME: 10:09 AM documented in this encounterDayton Children'S Hospital12-07-2023 Miscellaneous Notes* Telephone Encounter - Zoë [...] Patient requesting rx to be sent to [facility] on [facility] in [place], [place]. Advised that this RN will send instructions via BEKIZ as well for a reminder on medication instructions. Ordered pended to TYPE CUTTER. Patient agreeable to plan and verbalizes understanding. All additional questions have been answered at this time. Office call back number provided. * Telephone Encounter - Tati Adamson - 05/28/2023 3:42 PM EST PT called in to inform us he is allergic to the contrast dye documented in this encounterDayton Children'S Hospital09-21-2023 History of Present illness Narrative* Manjit Field MD - 03/13/2023 9:54 AM EDT Images from the original note were not included. Respiratory [place] [facility] Established Patient Follow Up note SERVICE [...] ([facility]) 08/18/2015 Seeing cardio in [place] (has pace maker/defibulator) Chronic kidney disease, stage 5 ([facility]) Dialysis M,W,F @ [facility] Chronic obstructive pulmonary disease ([facility]) 08/18/2015 Chronic obstructive pulmonary disease ([facility]) 08/18/[address] Barber ([place]) Congenital solitary kidney pt was born with [...] substance agreement and Tox [facility]. If cancels or No Shows [...] dysf CHOLECYSTECTOMY INSJ TUNNELED CVC W/O SUBQ PORT/LIQUIFIED NATURAL GAS TECHNICIAN AGE 3 YR/> 01/21/2014 PAST SURGICAL HISTORY [...] twice daily with meals. Per [facility] busPIRone (BUSPAR) 5 mg tablet Take [...] 77 Temp 97 Resp 16 Ht 5' 11" (1.80m) Wt 166 lb 3.2 oz (75.4kg) [...] 07/17/2021 Neut% 57.7 07/17/2021 Lymph% 22.7 07/17/2021 Lane% 13.5 07/17/2021 Eosin% 5.0 07/17/2021 Baso% 1.1 07/17/2021 Abs Neut (ANC) 2.50 07/17/[address] 0.59 07/17/2021 Abs Eosin 0.22 07/17/2021 Abs [...] Done February 11, [address] [facility] showing right-sided pleural effusion with possible loculation [...] volumes and diffusing capacity if clinically indicated. Note:"LLN" is the lower limit of normal for [...] which included preparing to see the patient, slnq-oa-edhd patient care, completing clinical documentation, obtaining and/or reviewing separately obtained history, performing a medically appropriate examination, and counseling and educating the patient/family/caregiver. SIGNATURE: Manjit Field MD PATIENT NAME: Carlitos Sweeney DATE: March 13, 2023 TIME: 9:54 AM PAGER/CONTACT #: [phone] documented in this encounterDayton Children'S Hospital09-11-2023 History of Present illness Narrative* Rashmi Liu Ma - 03/03/2023 3:04 PM EDT Scan on 03/03/2023 2:58 PM by Provider, External, YUNIOR: Consultation - Cardiology documented in this encounterDayton Children'S Hospital08-01-2023 Miscellaneous Notes* Telephone Encounter - Rashmi Liu Ma - 01/21/2023 9:47 AM EDT Pt notified of results via BEKIZ. Rashmi Liu Ma * Telephone Encounter - Lyudmila An APRN.CNP - 01/21/2023 9:45 AM EDT Please let patient know his lab is stable documented in this encounterDayton Children'S Hospital07-31-2023 Instructions* Patient Instructions* Lyudmila An APRN.CNP - 01/20/2023 4:35 PM EDT Schedule with Supervisory Investigative Specialist and Cellulose Insulation Helper Complete labs Continue to hold Hypertensive medications. documented in this encounterDayton Children'S Hospital07-31-2023 History of Present illness Narrative* Lyudmila An APRN.GAS MAKER - 01/20/2023 4:15 PM EDT Chief Complaint [...] so low. Patient reports he called his nurse wound and left a message regarding his current [...] ([facility]) 08/18/2015 Seeing cardio in [place] (has pace maker/defibulator) Chronic kidney disease, stage 5 ([facility]) Dialysis M,W,F @ [facility] Chronic obstructive pulmonary disease ([facility]) 08/18/2015 Chronic obstructive pulmonary disease ([facility]) 08/18/[address] Barber ([place]) Congenital solitary kidney pt was born with [...] dysf CHOLECYSTECTOMY INSJ TUNNELED CVC W/O SUBQ PORT/LIQUIFIED NATURAL GAS TECHNICIAN AGE 3 YR/> 01/21/2014 PAST SURGICAL HISTORY [...] medications. Patient should make appointments with his braid pattern setter and nurse wound for further evaluation. Lyudmila An APRN.JYOTI documented in this encounterDayton Children'S Hospital07-27-2023 Hospital Discharge instructions Patient Education 01/16/2023 [...] alternate ice and heat. You may use loom-ztp-jyzgfwk pain medicine to control pain, unless another [...] hand becomes cold, blue, numb, or tingly 0206-5759 [employer]. [address] [place] [address]. All rights reserved. This information is not [...] alternate ice and heat. You may use yrvj-hmh-jzfxsgu pain medicine to control pain, unless another [...] hand becomes cold, blue, numb, or tingly 8422-5474 [employer]. [address] [place] [address]. All rights reserved. This information is not intended as a substitute for professional medical care. Always follow yourhealthcare professional's instructions. Follow Up Care 01/16/2023 16:08:56 With:TOM CONTE MD Address: [address] [place] [address]- When:2-4 days [facility] 07-27-2023 Note Discharge Instructions Thank you for allowing [facility] to assist you with your healthcare needs. [...] CONTE MD When Within 2-4 days Where: [address] [place] [address]- Allergies penicillin (Anaphylaxis, rash) Contrast dye [...] alternate ice and heat. You may use elgv-jfp-nxllxrk pain medicine to control pain, unless another [...] hand becomes cold, blue, numb, or tingly 1105-7169 [employer]. [address] [place] [address], [place] [address]. All rights reserved. This information is not [...] alternate ice and heat. You may use epra-dpz-ysoftqi pain medicine to control pain, unless another [...] hand becomes cold, blue, numb, or tingly 9739-4661 [employer]. [address] [facility], [place] [address]. All rights reserved. This information is not intended as a substitute for professional medical care. Always follow yourhealthcare professional's instructions. Additional Information VACCINATE! IT SAVES LIVES! Members of the community who have not yet received the COVID-19 vaccine and would like to receive it can visit one of [facility] vaccine clinics. There are many vaccine clinic locations within the [facility]. For locations and available times, please visit www.[email or web address].[place].gov/. It is important to note that some COVID mobile vaccine clinics are held outdoors and may be canceled in rainy or stormy conditions. To learn more about pediatric vaccinations (ages 5-11), we invite you to visit the [facility] webpage. https://www.[employer].org/pages/7232-Cuwsm-Qjingymuqma-Atzdudbpes-Jnmds-Lpp stions.htmlTo learn more about the COVID-19 vaccine, we invite you to visit the CDC website for a list of frequently asked questions. https://www.cdc.gov/coronavirus/2019-ncov/vaccines/faq.html [facility] Patient Portal Access Instructions: Stay connected with your healthcare team and access your personal medical information anytime with the [facility] Patient Portal. If you would like a full copy of your medical records please contact the [facility] Medical Records Department Friday through Friday between 8a.m. and 4:30p.m. Please follow the directions below to access the portal: 1.Access the email account you provided upon registration to the hospital.2.Look for an invitation email from [facility].3.Open the email and access the invitation link: Accept Invitation to [facility]4.Fill in the required luis to create your account. Sign into www.Black Ocean with your username and password that you [...] you will allow to register on the [facility] Patient Portal for access to your information. You can also access the [facility] Patient Portal on the Guerrilla [employer] kyleigh. Simply click on "Health Records" under "HealthData" and then click on the Yana logo. [...] Call your local pharmacy or go to http://[employer].Million Dollar Earth/2R9In1l to find one close to you.3.Make use of household items: Use cat litter or old coffee grounds to dispose medications if other options arenot available. Mix your drugs with these household products, seal them in an airtight container andthrow it into the garbage. Call [facility]: [phone] to be sure your drugs can be [...] that I should contact my doc tor. 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 Interpreted by: Verito Long Preliminary Report By: Elder Fuller Electronically signed By Verito Long Dictated Date: 01/16/2023 5:08:21 PM Prelim Date: 01/16/2023 5:10:43 PM Sign Date: 01/16/2023 5:34:20 PM Ordering Provider: [facility]07-08-2023 Hospital Discharge instructions Patient Education 12/28/2022 16:45:01 [...] Show the journal to your healthcare provider. 0091-4377 [employer]. [address] [place] [address], [place] [address]. All rights reserved. This information is not intended as a substitute for professional medical care. Always follow yourhealthcare professional's instructions. Follow Up Care 12/28/2022 15:52:16 With:ODILIA GRIGSBY DPM, Surgery Address: [address] [place] [address] Foot and Ankle [place], [place] [address]- When:2-4 days With:Go to emergency room if symptoms worsen Address:Unknown When:2-4 days With:TOM CONTE MD Address: [address] [place] [address]- When:2-4 days [facility] 07-08-2023 Emergency department Discharge summary Discharge Instructions Thank you for allowing [facility] to assist you with your healthcare needs. [...] DPM, Surgery When Within 2-4 days Where: [address] [place], [place] [address] [facility] Foot and Ankle [place], [place] [address]- Follow Up with Go to emergency room if symptoms worsen When Within 2-4 days Follow Up with TOM CONTE MD When Within 2-4 days Where: [address] [place] [address]- Allergies penicillin (Anaphylaxis, rash) Contrast [...] Show the journal to your healthcare provider. 2648-6078 [employer]. [address] [place] [address], [place] [address]. All rights reserved. This information is not intended as a substitute for professional medical care. Always follow yourhealthcare professional's instructions. Additional Information VACCINATE! IT SAVES LIVES! Members of the community who have not yet received the COVID-19 vaccine and would like to receive it can visit one of [facility] vaccine clinics. There are many vaccine clinic locations within the [facility]. For locations and available times, please visit www.[email or web address].[place].gov/. It is important to note that some COVID mobile vaccine clinics are held outdoors and may be canceled in rainy or stormy conditions. To learn more about pediatric vaccinations (ages 5-11), we invite you to visit the [facility] webpage. https://www.[facility].org/pages/1253-Eynxi-Naliyjneizw-Iwvnglezmr-Qtzcn-Joo stions.htmlTo learn more about the COVID-19 vaccine, we invite you to visit the CDC website for a list of frequently asked questions. https://www.cdc.gov/coronavirus/2019-ncov/vaccines/faq.html [facility] Patient Portal Access Instructions: Stay connected with your healthcare team and access your personal medical information anytime with the [facility] Patient Portal. If you would like a full copy of your medical records please contact the [facility] Medical Records Department Friday through Friday between 8a.m. and 4:30p.m. Please follow the directions below to access the portal: 1.Access the email account you provided upon registration to the [facility].2.Look for an invitation email from [facility].3.Open the email and access the invitation link: Accept Invitation to [facility]4.Fill in the required luis to create your account. Sign into www.Black Ocean with your username and password that you [...] you will allow to register on the [facility] Patient Portal for access to your information. You can also access the [facility] Patient Portal on the devsisters. Simply click on "Health Records" under "ReferronDaSkipo" and then click on the YOGITECH logo. HOW TO SAFELY DISPOSE OF PRESCRIPTION [...] Call your local pharmacy or go to http://Departing/9B3Gw3k to find one close to you.3.Make use of household items: Use cat litter or old coffee grounds to dispose medications if other options arenot available. Mix your drugs with these household products, seal them in an airtight container andthrow it into the garbage. Call [facility]: [phone] to be sure your drugs can be [...] that I should contact my doc tor. 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 Signature: Date/Time: Relationship to Patient: Witness Name/Signature: Date/Time: [facility]07-08-2023 Note ORIGINAL EXAMINATION: THREE XRAY VIEWS OF THE LEFT FOOT 12/28/2022 4:57 pm COMPARISON: None. HISTORY: ORDERING SYSTEM PROVIDED HISTORY: Reason for Exam: pain FINDINGS: No acute fracture or dislocation. Chronic appearing irregularity of the big toe proximal phalanx distally, presumably degenerative. Peripheral vascular calcifications. No radiopaque foreign body IMPRESSION: No acute fracture or dislocation. Interpreted by: Lyle Braswell Preliminary Report By: Lyle Braswell Electronically signed By Lyle Braswell Dictated Date: 12/28/2022 5:48:21 PM Prelim Date: 12/28/2022 5:50:37 PM Sign Date: 12/28/2022 5:50:37 PM Ordering Provider: CAROLE LEDBETTER [facility]07-08-2023 Note ORIGINAL EXAMINATION: THREE XRAY VIEWS OF THE LEFT FOOT 12/28/2022 4:57 pm COMPARISON: None. HISTORY: ORDERING SYSTEM PROVIDED HISTORY: Reason for Exam: pain FINDINGS: No acute fracture or dislocation. Chronic appearing irregularity of the big toe proximal phalanx distally, presumably degenerative. Peripheral vascular calcifications. No radiopaque foreign body IMPRESSION: No acute fracture or dislocation. Interpreted by: Lyle Braswell Preliminary Report By: Lyle Braswell Electronically signed By Lyle Braswell Dictated Date: 12/28/2022 5:48:21 PM Prelim Date: 12/28/2022 5:50:37 PM Sign Date: 12/28/2022 5:50:37 PM Ordering Provider: [facility]06-19-2023 Hospital Discharge instructions Patient Education 12/09/2022 [...] or swelling over your back or spine [id number] [employer] Online. [address] [place] [address]. All rights reserved. This information is not intended as a substitute for professional medical care. Always follow yourhealthcare professional's instructions. Follow Up Care 12/09/2022 14:12:15 With:TOM CONTE MD Address: [address] [place] [address]- When:2-4 days [facility] Yanaelliott Li 06-19-2025 Note Discharge Instructions Thank you for allowing [facility] to assist you with your healthcare needs. The following is importantdischarge information regarding your hospital visit. Diagnosis from Today's Visit Leg pain-swelling Sciatic pain What to Do Next Instructions from Your Care Team No qualifying data available. Post Acute Orders No qualifying data available. You Need to Schedule the Following Appointments Follow Up with TOM CONTE MD When Within 2-4 days Where: [address] [place] [address]- Allergies penicillin (Anaphylaxis, rash) Contrast dye (Skin rash, Fever) cyclobenzaprine (Skin rash) traMADol (Skin rash) Medications Please ask your primary doctor or pharmacist before taking any other medication not listed, including over the counter drugs, herbal medications, vitamins and or supplements as they may interact withyour home medications. What How Much When Why Instructions Last Dose New acetaminophen-hydrocodone (Rockford 325- 5 mg oral tablet) 1 tab(s) [...] providers or retail pharmacies. Medication Leaflets prednisone (VICKY Toro What is the most important information I [...] may report side effects to FDA at 7-674-ZQC-8441. What other drugs will affect prednisone? Sometimes [...] may affect prednisone. This includes prescription and bgbc-yok-suykgob medicines, vitamins, and herbal products. Not all [...] to ensure that the information provided by [employer]. ('Multum') is accurate, up-to-date, and complete, but no guarantee is made to that effect. Drug information contained herein may be time sensitive. P[employer]ota information has been compiled for use by healthcare practitioners and consumers in the [place] and therefore P[employer] does not warrant that uses outside of the [place] are appropriate, unless specifically indicated otherwise. Dem[employer] drug information does not endorse drugs, diagnose patients or recommend therapy. Democravises drug information isan informational resource designed to [...] effective or appropriate for any given patient. [facility] does not assume any responsibility for any aspect of healthcare administered with the aid of information [facility] provides. The information contained herein is not intended to cover all possible uses, directions, precautions, warnings, drug interactions, allergic reactions, or adverse effects. If you have questions about the drugs you are taking, check with your doctor, nurse or pharmacist. Copyright 3721-0807 [employer]. Version: 10.. Revision Date: 09/17/2018. baclofen (oral) [...] may report side effects to FDA at 6-999-HMZ-5735. What other drugs will affect baclofen? Using baclofen with other drugs that make you drowsy can worsen this effect. Ask your doctor beforeusing opioid medication, a sleeping pill, a muscle relaxer, or medicine for anxiety or seizures. Other drugs may affect baclofen, including prescription and espy-str-cwfupyg medicines, vitamins, and herbal products. Tell your [...] to ensure that the information provided by [employer]. ('Multum') is accurate, up-to-date, and complete, but no guarantee is made to that effect. Drug information contained herein may be time sensitive. Pronota information has been compiled for use by healthcare practitioners and consumers in the [place] and therefore P[employer] does not warrant that uses outside of the [place] are appropriate, unless specifically indicated otherwise. Dem[employer]rav[employer] drug information does not endorse drugs, diagnose patients or recommend therapy. Democravises drug information isan informational resource designed to [...] effective or appropriate for any given patient. [employer] does not assume any responsibility for any aspect of healthcare administered with the aid of information [employer] provides. The information contained herein is not intended to cover all possible uses, directions, precautions, warnings, drug interactions, allergic reactions, or adverse effects. If you have questions about the drugs you are taking, check with your doctor, nurse or pharmacist. Copyright 4953-1677 [employer]. Version: 9.01. Revision Date: 09/23/2022. lidocaine topical (LYE strauss douglas TOP i terry) AneCream, Bactine, Glydo, LidaMantle, Lidoderm, LidoRx, Medi-Quik [place], RadiaGuard, RectiCare, Regenecare JACKSON [place], Solarcaine Cool Aloe What is the most [...] over large skin areas, or if you applyheat, bandages, or plastic wrap to treated skin [...] may report side effects to FDA at 9-693-YBX-6709. What other drugs will affect lidocaine topical? Medicine used on the skin is not likely to be affected by other drugs you use. But many drugs can interact with each other. Tell each of your health care providers about all medicines you use, including prescription and xqph-znq-rekmrfp medicines, vitamins, and herbal products. Where can I get more information? Your pharmacist can provide more information about lidocaine topical. Remember, keep this and all other medicines out of the reach of children, never share your medicines with others, and use this medication only for the indication prescribed. Every effort has been made to ensure that the information provided by [employer]. ('Multum') is accurate, up-to-date, and complete, but no guarantee is made to that effect. Drug information contained herein may be time sensitive. Pronota information has been compiled for use by healthcare practitioners and consumers in the [place] and therefore P[employer]ota does not warrant that uses outside of the [place] are appropriate, unless specifically indicated otherwise. Democravises drug information does not endorse drugs, diagnose patients or recommend therapy. Democravises drug information isan informational resource designed to [...] effective or appropriate for any given patient. [employer] does not assume any responsibility for any aspect of healthcare administered with the aid of information [employer] provides. The information contained herein is not intended to cover all possible uses, directions, precautions, warnings, drug interactions, allergic reactions, or adverse effects. If you have questions about the drugs you are taking, check with your doctor, nurse or pharmacist. Copyright 2869-6860 [employer]. Version: 9.02. Revision Date: 11/06/2021. acetaminophen and hydrocodone (a SEET a MIN oh fen and kaiser droe KOE done) Hycet, Lorcet, [place], Verdrocet, Vicodin, Xodol, Zamicet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 08/26/2023) [facility] History of Past illness Narrative* Problem [...] of this encounter (statuses as of 09/29/2023) [facility] Miscellaneous Notes* Addendum Note - Manjit Field MD - 06/21/2022 1:32 PM ESTAddended by: MANJIT FIELD on: 06/21/2022 01:32 PM Modules accepted: Orders * Telephone Encounter - Autumn Gomez - 06/21/2022 1:27 PM EST Just spoke with IR they need a more specific order, it will need to say something in the comments like " please change drain and increase tube size" or evaluate for clogged tube" or both. Autumn Goemz RN * Telephone Encounter - Autumn Gomez - 06/21/2022 12:18 PM EST They will need another order for IR * Telephone Encounter - Autumn Gomez - 06/21/2022 11:28 AM EST Pt called againtoday tried to drain last night and only got 15 mls out "IT is clogged again". Autumn Gomez RN * Telephone Encounter - Autumn Gomez - 06/19/2022 3:19 PM EST Pt had plueral cath blockage removed on 06/14 drained well on 06/16, last night started draining okthen cloggged up again. Only got about 400 out, " I can tell it isn't drained off enough" documented in this encounterDayton Children'S Hospital12-20-2022 Miscellaneous Notes* Telephone Encounter - Autumn Gomez - 06/11/2022 3:35 PM EST Pt called notes he has another blockage in his pleural catheter. He notes he was draining last night and got out about 600-700 then it started to trickle then it stopped completely and when I tried to to pump the bulb it was definitely shut closed" . Advised pt to be awre of increased SOB if it gets to bad to go to ED. documented in this encounterDayton Children'S Hospital12-09-2022 History of Present illness Narrative* Blessing [...] 31, 2022 12:48 PM documented in this [facility]12-09-2022 Miscellaneous Notes* Result Encounter Note - Manjit Field MD - 05/31/2022 12:40 PM EST Reviewed her chest x-ray is showing that there is continued improvement in the right pleural effusion with the tubing place draining properly. I tried giving you a call earlier to discuss further. Continue to drain as instructed. We will discuss further during her next visit. documented in this encounterDayton Children'S Hospital12-09-2022 Progress note* Result Encounter Note - Manjit Field MD - 05/31/2022 12:40 PM EST Reviewed her chest x-ray is showing that there is continued improvement in the right pleural effusion with the tubing place draining properly. I tried giving you a call earlier to discuss further. Continue to drain as instructed. We will discuss further during her next visit. [facility]12-[facility] Miscellaneous Notes* Telephone Encounter - Autumn [...] attempts. Autumn Gomez RN documented in this encounterDayton Children'S Hospital10-17-2022 Miscellaneous Notes* Telephone Encounter - Deonte Ponce APRN.JYOTI - 04/08/2022 3:19 PM EDT Called back to pt and relied answer from Dr. Huerta that this could be a piece of fat. Deonte Ponce APRN.GAS MAKER documented in this encounterDayton Children'S Hospital10-13-2022 Surgical operation note* Brief Op Note - Celso Reed MD, - 04/04/2022 5:10 PM EDT INTERVENTIONAL RADIOLOGY POST PROCEDURE NOTE DATE: 04/04/22 NAME: Carlitos Sweeney LOG ID: [id number] Pre-Procedure Diagnosis: Recurrent pleural effusion. ESRD Nurse Navigator: Surgeon(s) and Role: * Celso Reed MD, [...] (Aspira) Ready to use. documented in this encounterDayton Children'S Hospital10-13-2022 Miscellaneous Notes* Sedation Documentation - Aleja Shankar RN - 04/04/2022 1:22 PM EDT Teaching reviewed with significant other and family documented in this encounterDayton Children'S Hospital10-13-2022 History and physical note * Celso Reed MD, - 04/04/2022 10:29 AM EDT UPDATED [...] found in the attached. documented in this encounterDayton Children'S Hospital10-12-2022 Miscellaneous Notes* Telephone Encounter - Karyn Araujo RN - 04/03/2022 10:39 AM EDT Patient called regarding result PFT 04/02/22 . Karyn Araujo RN documented in this encounterDayton Children'S Hospital10-11-2022 History of Present illness Narrative* Autumn Chanle - 04/02/2022 9:10 AM EDT PULM FUNCTION SMARTBLOCK: Provider: Manjit Field MD Spirometry w/BD: 1 DLCO: 1 LV - Box: 1 documented in this encounterDayton Children'S Hospital10-10-2022 NoteHNO ID: [id number] Author: Aj Huerta MD Service: ? Author Type: Physician Type: Progress Notes Filed: 04/01/2022 6:21 PM Note Text: PRIMARY CARE PHYSICIAN: Tom Conte [address] [place] [address] Subjective Chief Complaint Patient presents with: New [...] a current every day smoker with about 59-riwc-ywwh history. So far has had 2 thoracenteses [...] ([facility]) 08/18/2015 Seeing cardio in [place] (has pace maker/defibulator) Chronic kidney disease, stage 5 ([facility]) Dialysis M,W,F @ [facility] Chronic obstructive pulmonary disease ([facility]) [...] dysf CHOLECYSTECTOMY INSJ TUNNELED CVC W/O SUBQ PORT/LIQUIFIED NATURAL GAS TECHNICIAN AGE 3 YR/> 01/21/2014 PAST SURGICAL HISTORY [...] Cyclobenzaprine Unknown Dye Othe (more content not included)...[facility]10-10[facility] Miscellaneous Notes* Telephone Encounter - Chris Jean-Baptiste - 04/01/2022 4:04 PM EDT Phoned [facility] Interventional Radiology [phone] to schedule pt for placement right pleural catheter. They will call pt directly to schedule procedure. documented in this encounterDayton Children'S Hospital09-19-2022 Miscellaneous Notes* Allied [facility] - RT Jag(R) - 03/11/2022 2:38 PM EDT Radiology Service [...] RT Jag(R) March 11, 2022 2:41 PM * Brief Op Note - Olga Lidia Sheridan APRN.CNP - 03/11/2022 2:19 PM EDT BRIEF OP NOTE LOG ID: [id number] Surgery/Procedure Date: 03/11/2022 Surgeon(s)/Proceduralist(s) and Inflated Pad Buffer(s): Olga Lidia Sheridan APRN.CNP Procedure(s): R thoracentesis Anesthesia: local 5 ml lidocaine Findings: 1200 ml clear yellow fluid, stopped due to pain/pressure/coughing. At least a moderate tolarge effusion remained. Estimated Blood Loss: <3 ml Specimens: No Complications: none Pre-Op/Pre-Procedure Diagnosis: effusion Post-Op/Post-Procedure Diagnosis: same SIGNATURE: Olga Lidia Sheridan APRN.CNP PATIENT NAME: Carlitos Sweeney DATE: March 11, 2022 TIME: 2:20 PM PAGER/CONTACT #: [phone] documented in this encounterDayton Children'S Hospital09-06-2022 Miscellaneous Notes* Telephone Encounter - Autumn Gomez - 02/26/2022 3:31 PM EDT Images from the original note were not included. MD Autumn Allen The CXR is showing re-accumulation of the right sided pleural effusion, and we will repeat thoracentesis. Also we need the braid pattern setter to assess decreasing dry wt, since this is re-accumulating veryquickly. Called and left a message for pt to call office for results. documented in this encounterDayton Children'S Hospital09-06-2022 Miscellaneous Notes* Result Encounter Note - Manjit Field MD - 02/26/2022 12:00 PM EDT The CXR is showing re-accumulation of the right sided pleural effusion, and we will repeat thoracentesis. Also we need the braid pattern setter to assess decreasing dry wt, since this is re-accumulating veryquickly. documented in this encounterDayton Children'S Hospital09-06-2022 Progress note* Result Encounter Note - Manjit Field MD - 02/26/2022 12:00 PM EDT The CXR is showing re-accumulation of the right sided pleural effusion, and we will repeat thoracentesis. Also we need the braid pattern setter to assess decreasing dry wt, since this is re-accumulating veryquickly. [facility]09-06-[facility] Miscellaneous Notes* Addendum Note - Manjit Field MD - 02/26/2022 10:44 AM EDTAddended by: MANJIT FIELD on: 02/26/2022 10:44 AM Modules accepted: Orders documented in this encounterDayton Children'S Hospital08-25-2022 Miscellaneous Notes* [facility] - Aramis Pedro RT(R) - 02/14/2022 11:51 AM EDT Radiology Service [...] BRIEF OPERATIVE / PROCEDURE NOTE LOG ID: [id number] SURGERY/PROCEDURE DATE: 02/14/2022 SURGEON(S)/PROCEDURALIST(S) AND SYSTEMS TESTING LABORATORY TECHNICIAN(S): Surgeon(s) and Role: Keyla Lemons CNP * Thor Olivo APRN.GAS MAKER - Primary No Additional Staff SURGERY/PROCEDURE(S): R [...] 2022 TIME: 11:33 AM documented in this encounterZachary [place] [address]-08-2022 Hospital Discharge instructions Patient Education 01/27/2022 22:33:59 [...] alternate ice and heat. You may use jsjh-cog-xpjhkec pain medicine to control pain, unless another [...] numb, or tingly Pain or swelling increases [id number] [employer]. [address] [place] [address]. All rights reserved. This information is not intended as a substitute for professional medical care. Always follow yourhealthcare professional's instructions. Follow Up Care 01/27/2022 22:20:32 With:TOM CONTE MD Address: [address] [place] [id number]- When:2-4 days [facility] 08-07-2022 Emergency department Discharge summary Discharge Instructions Thank you for allowing [facility] to assist you with your healthcare needs. [...] MD When Within 2-4 days Where: [address] [place] [address]- Allergies penicillin (rash) Contrast dye NIFEdipine hydrALAZINE traMADol Medications Please ask your primary doctor or pharmacist before taking any other medication not listed, including over the counter drugs, herbal medications, vitamins and or supplements as they may interact withyour home medications. What How Much When Why Instructions Last Dose New acetaminophen-hydrocodone ([place] 325- 5 mg oral tablet) 1 tab(s) [...] alternate ice and heat. You may use bayh-izh-uwkvoyp pain medicine to control pain, unless another [...] numb, or tingly Pain or swelling increases 1604-1097 [employer]. [address] [place] [address]. All rights reserved. This information is not intended as a substitute for professional medical care. Always follow yourhealthcare professional's instructions. Additional Information VACCINATE! IT SAVES LIVES! Members of the community who have not yet received the COVID-19 vaccine and would like to receive it can visit one of [facility] vaccine clinics. There are many vaccine clinic locations within the [facility]. For locations and available times, please visit [email or web address]. It is important to note that some COVID mobile vaccine clinics are held outdoors and may be canceled in rainy orstormy conditions. To learn more about pediatric vaccinations (ages 5-11), we invite you to visit the [facility] webpage. https://www.[email or web address]/pages/[email or web address]-Rnfsm-Nfpdknjhlie-Dqswwtehea-Gvlza-Ilh stions.htmlTo learn more about the COVID-19 vaccine, we invite you to visit the [facility] website for a list of frequently asked questions. [email or web address]-[email or web address]-Nqgsryxy/ruueo-Jbdykbt-Woafmjbhrc _Asked-Questions.pdf [facility] Patient Portal Access Instructions: Stay connected with your healthcare team and access your personal medical information anytime with the [facility] Patient Portal. If you would like a full copy of your medical records please contact the [facility] Medical Records Department Friday through Friday between 8a.m. and 4:30p.m. Please follow the directions below to access the portal: 1.Access the email account you provided upon registration to the [facility].2.Look for an invitation email from [facility].3.Open the email and access the invitation link: Accept Invitation to [facility]4.Fill in the required luis to create your account. Sign into www.[employer] with your username and password that you [...] you will allow to register on the [facility] Patient Portal for access to your information. You can also access the [facility] Patient Portal on the devsisters. Simply click on "Health Records" under "ReferronDaSkipo" and then click on the [employer] logo. HOW TO SAFELY DISPOSE OF PRESCRIPTION [...] Call your local pharmacy or go to [email or web address] [email or web address]/[email or web address] to find one close to you.3.Make use of household items: Use cat litter or old coffee grounds to dispose medications if other options arenot available. Mix your drugs with these household products, seal them in an airtight container andthrow it into the garbage. Call [facility]: [phone] to be sure your drugs can be [...] that I should contact my doc tor. 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 Marina Marley APRN.CNP * Telephone Encounter - Rashmi Liu Ma [...] any worsening symptoms? Thank you. Marina Marley APRN.CNP documented in this encounterDayton Children'S Hospital05-12-2022 History of Present illness Narrative* Usha Márquez LPN - 11/01/2021 1:11 PM EDT See Stress Test: Scan on 11/01/2021 12:00 PM by External Provider: Stress Test And ECHO: Scan on 11/01/2021 1:07 PM by External Provider: Echo Shania Márquez LPN documented in this encounterDayton Children'S Hospital05-12-2022 History of Present illness Narrative* Roslyn Carvajal RT(R) - 11/01/2021 10:50 AM EDT Radiology [...] IV DATA: Not applicable SIGNED BY: DMITRIY Abdalla) November 01, 2021 10:42 AM documented in this encounterDayton Children'S Hospital04-28-2022 Instructions* Patient Instructions* Marina Marley APRN.CNP - 10/18/2021 10:43 AM EDT 1.) Get repeat chest xray 2-4 weeks. 2.) Continue to take all your medication as prescribed. 3.) Keep all scheduled appointments with specialists. 4.) Red flag symptoms go to ER. 5.) Follow up as needed. Recommend making follow up appointment with Dr. Conte within 3-6 months. documented in this encounterDayton Children'S Hospital04-28-2022 History of Present illness Narrative* Marina Marley APRN.CNP - 10/18/2021 10:40 AM EDT This is a 46 year old male who presents today with: Patient presents with: Hospital F/U: Patient was seen in [place] about 1 month ago for pneumonia. Has migraine after every treatment HISTORY OF PRESENT ILLNESS: Carlitos Sweeney is a 46 year old male. Patient presents with: Hospital F/U: Patient was seen in [place] about 1 month ago for pneumonia. Has migraine after every treatment Patient of Dr. Conte here in the office for hospital follow up. HOSPITAL/ER FOLLOW UP: Reason for visit: Cough Which facility: [place] Date of visit: 09/27/2021 Diagnosis: Pneumonia Testing done: Chest xray showed right lung base infiltrate. Treatment given: AZirthomycin Was seen at [facility] 10/11/2021 abdominal pain, started on Flagyl for bacterial gastroenteritis.. Symptoms having improve significantly. Following with [facility] in [place], Dr. Gamino. On fluid restriction 32 ounces between treatments. Sob has improved since having treatment of pneumonia. Trying to work on smoking cessation, smoking 1/2 PPD. Dialysis Friday, Friday, and Friday. Seeing [facility] (Dr. Rogers). Will be having stress/echo next month. Get pace maker replaced soon. Over all doing well. PAST MEDICAL HISTORY: PAST MEDICAL HISTORY Diagnosis Date Abdominal pain 10/01/2013 Anemia of chronic renal failure 08/18/2015 Anxiety 10/01/2013 BENIGN HYP RENAL W KID FAIL 02/11/2005 Chronic combined systolic and diastolic CHF (congestive heart failure) ([facility]) 08/18/2015 Seeing cardio in [place] (has pace maker/defibulator) Chronic kidney disease, stage 5 ([facility]) Dialysis M,W,F @ [facility] Chronic obstructive pulmonary disease ([facility]) 08/18/2015 CKD (chronic kidney disease) stage 4, GFR 15-29 ml/min ([facility]) 04/26/[address] 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 Marina Marley [email or web address] This note was partially generated using [employer] voice recognition system. Note was reviewed for accuracy. There may be minor misspellings or grammar miscues with [employer] voice recognition. [facility] Hospital Discharge instructions Patient Education 10/11/2021 [...] after a stroke. Don't take or give gsxf-iee-xilrmlc antidiarrhea medicines, unless your healthcare provider prescribed [...] with soap and water and using alcohol-bases head loader is the best way to stop the [...] Keep uncooked meats away from cooked and ppera-uv-zjs foods. During the first 24 hours, follow [...] during or after your gastroenteritis is gone 2634-0800 [employer]. [address] [place] [address]. All rights reserved. This information is not [...] Bleeding from the rectum Black, tarry stool 0944-4917 [employer]. [address] [place] [address], [place] [address]. All rights reserved. This information is not [...] for heart disease or after a stroke) Iceg-wne-npqligu medicines for diarrhea, nausea, and vomiting are generally OK unless you have bleeding, fever, or severe abdominal pain. General care If symptoms are severe, rest at home for the next 24 hours, or until you are feeling better. Washing your hands with soap and water, or using alcohol-based hand head loader is the best way to stop the [...] after. Wash your hands or use alcohol-based head loader after using cutting boards, countertops, and knives that have been in contact with raw food. Dry your hands with a single use towel. Keep uncooked meats away from cooked and gsipc-xp-ytx foods. Follow-up care Follow up with your [...] every 6 hours), or very dark urine 1599-7650 [employer]. [address] [place] [address]. All rights reserved. This information is not intended as a substitute for professional medical care. Always follow yourhealthcare professional's instructions. Follow Up Care 10/11/2021 17:43:45 With:TOM CONTE Address: [address] [place] [address] [facility] (1) When:2-4 days [facility] 11-09-2021 Hospital Discharge instructions Patient Education 04/30/2021 [...] or higher after 2 days on antibiotics 0800-0853 [employer]. [address] [place] [address]. All rights reserved. This information is not [...] complete blockage of the flow of urine 5296-3255 [employer]. [address] [place] [address]. All rights reserved. This information is not intended as a substitute for professional medical care. Always follow yourhealthcare professional's instructions. Follow Up Care 04/30/2021 21:30:10 With:TOM CONTE MD Address: [address] [place] [phone] When:2-4 days [facility] 05-26-2021 History of Present illness [...] 15, 2020 3:12 PM documented in this encounterDay[facility] History of Present illness Narrative* Kidney Transplant * Reason For Visit: Pre-Transplant . Annual review of listing status. * CKD: end stage renal disease. * TIEDI: previous UTx and PRA 100%. Listing date: 01/20/2019, currently status 7 * Hemodialysis: Friday, Friday, Friday. Dialysis Center: [facility] * Disease Etiology: Congenital anomalies of kidneys. * Compliance/Tolerance/Control: good compliance with treatment. * Primary Care Provider: Dr. Tom Conte (tel: [phone]). * Referral: Dr. Chaya Owens (tel: [phone]; fax: [phone]). * I am seeing CARLITOS SWEENEY at the referring provider's request for surgical suitability for kidney transplant candidate listing at [facility]. * History of Present Illness Comments: Mr. [...] No chest pain or shortness of breath. [facility] Work Phone: [phone] Evaluation note* Diagnosis Onset Date Resolution Status History of implantable cardi ac defibrillator (ICD) February 03, 2015 acute Non-ischemic cardiomyopathy resolved ESRD (end stage renal disease) on dialysis chronic Non-ischemic cardiomyopathy resolved Acute dyspnea acute Pleural effusion, right acut e [facility] Work Phone: Evaluation + Plan note No data available for this section [facility] Evaluation + Plan note Future Appointments Appointment Date:08/26/2025 12:30:00 PM Scheduled Provider:MONIE ALSTON DO Location:[facility] Appointment Type:PC Wellness Annual Future Scheduled Tests Laboratory* TSH with Reflex to FT4 08/24/24 * Prostate Specific Antigen 08/24/24 * A1C Hemoglobin 08/24/24 * Lipid Profile 08/24/24 Radiology* CT Low Dose Lung Cancer Screening (LDCT) 08/24/24 [facility] Evaluation + Plan note Future Appointments Appointment Date:01/10/2025 02:00:00 PM Scheduled Provider:SNEHA WHITE Location:[facility] Appointment Type:CV OV Appointment Date:08/26/2025 12:30:00 PM Scheduled Provider:MONIE ALSTON DO Location:[facility] Appointment Type: Wellness Annual Future Scheduled Tests Laboratory* Lipoprotein (a) 09/24/24 * Apolipoprotein B 09/24/24 * TSH with Reflex to FT4 09/24/24 * Prostate Specific Antigen 09/24/24 * A1C Hemoglobin 09/24/24 * Lipid Profile 09/24/24 Radiology* MRI Spine Lumbar w/o Contrast 09/14/24 [facility] Evaluation + Plan note Future Appointments Appointment Date:12/20/2024 09:15:00 AM Scheduled Provider:SNEHA WHITE Location:[facility] Appointment Type:CV OV Appointment Date:08/26/2025 12:30:00 PM Scheduled Provider:MONIE ALSTON DO Location:[facility] Appointment Type: Wellness Annual Future Scheduled Tests Laboratory* Lipoprotein (a) 09/24/24 * Apolipoprotein B 09/24/24 * TSH with Reflex to FT4 09/24/24 * Prostate Specific Antigen 09/24/24 * A1C Hemoglobin 09/24/24 * Lipid Profile 09/24/24 Radiology* MRI Spine Lumbar w/o Contrast 09/14/24 [facility] Evaluation + Plan note Future Appointments Appointment Date:01/14/2025 10:30:00 AM Scheduled Provider:CARLTON COLORADO Location:[facility] Appointment Type:CV Hospital Follow Up Appointment Date:03/31/2025 08:00:00 PM Scheduled Provider: Location:[facility] Appointment Type:CV Remote Procedure Appointment Date:08/26/2025 12:30:00 PM Scheduled Provider:MONIE ALSTON DO Location:[facility] Appointment Type:PC Wellness Annual Future Scheduled Tests Laboratory* Lipoprotein (a) 09/24/24 * Apolipoprotein B 09/24/24 * TSH with Reflex to FT4 09/24/24 * Prostate Specific Antigen 09/24/24 * A1C Hemoglobin 09/24/24 * Lipid Profile 09/24/24 Radiology* MRI Spine Lumbar w/o Contrast 09/14/24 [facility] Evaluation + Plan note Future Appointments Appointment Date:02/10/2025 09:00:00 AM Scheduled Provider: Location:[facility] Appointment Type:CV Incision Check Appointment Date:04/28/2025 09:30:00 AM Scheduled Provider: Location:[facility] Appointment Type:CV Office Procedure ICD Appointment Date:07/29/2025 06:45:00 PM Scheduled Provider: Location:[facility] Appointment Type:CV Remote Procedure Appointment Date:08/26/2025 12:30:00 PM Scheduled Provider:MONIE ALSTON DO Location:[facility] Appointment Type:PC Wellness Annual Future Scheduled Tests Laboratory* Lipoprotein (a) 09/24/24 * Apolipoprotein B 09/24/24 * TSH with Reflex to FT4 09/24/24 * Prostate Specific Antigen 09/24/24 * A1C Hemoglobin 09/24/24 * Lipid Profile 09/24/24 Radiology* MRI Spine Lumbar w/o Contrast 09/14/24 [facility] evaluation + Plan note Future Appointments Appointment Date:02/10/2025 09:00:00 AM Scheduled Provider: Location:[facility] Appointment Type:CV Incision Check Appointment Date:04/28/2025 09:30:00 AM Scheduled Provider: Location:[facility] Appointment Type:CV Office Procedure ICD Appointment Date:07/29/2025 06:45:00 PM Scheduled Provider: Location:[facility] Appointment Type:CV Remote Procedure HM Appointment Date:08/26/2025 12:30:00 PM Scheduled Provider:MONIE ALSTON DO Location:[facility] Appointment Type:PC Wellness Annual Diagnostic Tests Pending * Blood Culture (bacterial) 01/29/25 * Blood Culture (bacterial) 01/29/25 Future Scheduled Tests Laboratory* Lipoprotein (a) 09/24/24 * Apolipoprotein B 09/24/24 * TSH with Reflex to FT4 09/24/24 * Prostate Specific Antigen 09/24/24 * A1C Hemoglobin 09/24/24 * Lipid Profile 09/24/24 Radiology* MRI Spine Lumbar w/o Contrast 09/14/24 [facility] Evaluation + Plan note Future Appointments Appointment Date:04/28/2025 09:30:00 AM Scheduled Provider: Location:[facility] Appointment Type:CV Office Procedure ICD Appointment Date:07/29/2025 02:00:00 PM Scheduled Provider: Location:[facility] Appointment Type:CV Remote Procedure Appointment Date:08/26/2025 12:30:00 PM Scheduled Provider:MONIE ALSTON DO Location:[facility] Appointment Type: Wellness Annual Future Scheduled Tests Laboratory* Lipoprotein (a) 09/24/24 * Apolipoprotein B 09/24/24 * TSH with Reflex to FT4 09/24/24 * Prostate Specific Antigen 09/24/24 * A1C Hemoglobin 09/24/24 * Complete Blood Count 02/03/25 * Lipid Profile 09/24/24 * Complete Metabolic Panel 02/03/25 Radiology* MRI Spine Lumbar w/o Contrast 09/14/24 [facility] Evaluation note* Diagnosis History of pneumonia- Primary Personal history of pneumonia (recurrent) End stage renal failure on dialysis (HCC) End stage renal disease [facility] Diagnosis Onset Date Resolution Status Chest pain acute ESRD (end stage renal disease) on dialysis chronic Non-ischemic cardiomyopathy resolved [facility] Work Phone: Evaluation note* Diagnosis Recurrent right pleural effusion Unspecified pleural effusion documented in this encounter [facility] note* Diagnosis Shortness of breath- Primary documented in this encounter [facility] note* Diagnosis Recurrent right pleural effusion- Primary Unspecified pleural effusion documented in this encounter [facility] note* Diagnosis Shortness of breath documented in this encounter [facility] note* Diagnosis Shortness of breath documented in this encounter [facility] note* Diagnosis Pleural effusion- Primary Unspecified pleural effusion documented in this encounter [facility] note* Diagnosis Pleural effusion- Primary Unspecified pleural effusion documented in this encounter [facility] note* Diagnosis Pleural effusion- Primary Unspecified pleural effusion documented in this encounter [facility] note* Diagnosis Pleural effusion- Primary Unspecified pleural effusion documented in this encounter [facility] note* Diagnosis Onset Date Resolution Status ESRD (end stage renal disease) on dialysis chronic Essential hypertension chron ic Non-ischemic cardiomyopathy chronic S/P internal cardiac defibrillator procedure [facility] Work [facility]* Diagnosis Pleural effusion- Primary Unspecified pleural effusion Recurrent right pleural effusion Unspecified pleural effusion documented in this encounter [facility] note* Diagnosis Pleural effusion- Primary Unspecified pleural effusion documented in this encounter [facility] note* Diagnosis Pleural effusion- Primary Unspecified pleural effusion documented in this encounter [facility] note* Diagnosis Pleural effusion- Primary Unspecified pleural effusion documented in this encounter [facility] note* Diagnosis Pleural effusion- Primary Unspecified pleural effusion documented in this encounter [facility] note* Diagnosis SONJA (generalized anxiety disorder) Generalized anxiety disorder documented in this encounter [facility] note* Diagnosis Essential hypertension- Primary Unspecified essential hypertension Cardiomyopathy, unspecified type (HCC) Hypertensive heart disease with congestive heart failure, [...] obstructive pulmonary disease, unspecified COPD type (HCC) Anxiety Anxiety state, unspecified Mild episode of recurrent major depressive disorder (HCC) CKD (chronic kidney disease) stage 5, GFR less than 15 ml/min (HCC) Chronic kidney disease, Stage V End stage renal failure on dialysis (HCC) End stage renal disease Anemia associated with stage 5 chronic renal failure (HCC) Hemodialysis patient (HCC) Renal dialysis status Smoker Tobacco use disorder Need for vaccination Need for prophylactic vaccination and inoculation against unspecified single disease Bilateral carotid bruits Arteriovenous fistula, acquired (HCC) Arteriovenous fistula, acquired [facility] Diagnosis Hypotension, unspecified hypotension type- Primary End stage renal failure on dialysis (HCC) End stage renal disease [facility]* Diagnosis Tobacco use disorder- Primary Recurrent right pleural effusion Unspecified pleural effusion [facility] Diagnosis Vasculopathy- Primary Unspecified circulatory system disorder SVC (superior vena cava obstruction) Compression of vein [facility]* Diagnosis Vasculopathy- Primary Unspecified circulatory system disorder [facility]* Diagnosis Encounter for screening for cardiovascular disorders- Primary Screening for other and unspecified cardiovascular conditions ESRD (end stage renal disease) (HCC) End stage renal disease Arteriovenous fistula, acquired (HCC) Arteriovenous fistula, acquired [facility]* Diagnosis ESRD (end stage renal disease) (HCC)- Primary End stage renal disease ESRD (end stage renal disease) (HCC) End stage renal disease [facility]* Diagnosis ESRD (end stage renal disease) (HCC)- Primary End stage renal disease Arteriovenous fistula, acquired (HCC) Arteriovenous fistula, acquired [facility]* Diagnosis ESRD (end stage renal disease) (HCC)- Primary End stage renal disease [facility]* Diagnosis Arteriovenous fistula, acquired (HCC)- Primary Arteriovenous fistula, acquired [facility]* Diagnosis Peripheral arterial disease (HCC)- Primary Peripheral vascular disease, unspecified 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 [facility]* Diagnosis Recurrent right pleural effusion- Primary Unspecified pleural effusion Tobacco use disorder Pleural effusion Unspecified pleural effusion [facility] Diagnosis Recurrent right pleural effusion- Primary Unspecified pleural effusion Tobacco use disorder Pleural effusion Unspecified pleural effusion documented in this encounter [facility] note* Diagnosis Recurrent right pleural effusion- Primary Unspecified pleural effusion Tobacco use disorder Pleural effusion Unspecified pleural effusion [facility] Diagnosis Recurrent right pleural effusion- Primary Unspecified pleural effusion Tobacco use disorder Shortness of breath [facility]* Diagnosis History of pneumonia Personal history of pneumonia (recurrent) Recurrent right pleural effusion- Primary Unspecified pleural effusion Tobacco use disorder [facility]* Diagnosis Recurrent right pleural effusion- Primary Unspecified pleural effusion Tobacco use disorder Lumbar pain- Primary Lumbago Lumbar pain Lumbago [facility]* Diagnosis Recurrent right pleural effusion- Primary Unspecified pleural effusion Tobacco use disorder Lumbar pain Lumbago [facility]* Diagnosis Recurrent right pleural effusion- Primary Unspecified pleural effusion Tobacco use disorder COPD with exacerbation (HCC)- Primary Obstructive chronic bronchitis with exacerbation documented in this encounter [facility] note* Diagnosis Recurrent right pleural effusion- Primary Unspecified pleural effusion Tobacco use disorder Acute cough- Primary Asthma with COPD with exacerbation (HCC) Chronic obstructive asthma with exacerbation [facility]* Diagnosis Recurrent right pleural effusion- Primary Unspecified pleural effusion Tobacco use disorder Other acute nonsuppurative otitis media of left ear, recurrence not specified- Primary Viral URI with cough Acute upper respiratory infections of unspecified site documented in this encounter [facility] note* Diagnosis Small bowel obstruction (Multi)- Primary Unspecified intestinal obstruction documented in this encounter [facility] Work Phone: Evaluation note* Diagnosis ESRD (end stage renal disease) (Multi)- Primary End stage renal disease Kidney replaced by transplant ([facility]) Kidney replaced by transplant Pre-transplant evaluation for kidney transplant documented in this encounter [facility] Work Phone: Evaluation note* Diagnosis Pre-transplant evaluation for kidney transplant- Primary documented in this encounter [facility] Work Phone: Evaluation note* Diagnosis ESRD (end stage renal disease) (Multi) End stage renal disease Kidney replaced by transplant ([facility]) Kidney replaced by transplant Pre-transplant evaluation for kidney transplant Type 2 diabetes mellitus with other specified complication, unspecified whether long-term insulin use (Multi) documented in this encounter [facility] Work Phone: Evaluation noteNo assessment information available [facility] Work Phone: Evaluation note* Diagnosis ESRD (end stage renal disease) (Multi) End stage renal disease Kidney replaced by transplant ([facility]) Kidney replaced by transplant Pre-transplant evaluation for kidney transplant Type 2 diabetes mellitus with other specified complication, unspecified whether long-term insulin use (Multi) documented in this encounter [facility] Work Phone: Hospital Discharge instructions No data available for this section [facility] Hospital Discharge instructions Additional Instructions Her fusion appears to be draining. The catheter appears to be in good position. Follow-up. As scheduled.[facility] Work Phone: Hospital Discharge instructionsAdditional Instructions Thank you for trusting us with your care today! Your chest x-ray is consistent with bacterial pneumonia. This is treated with antibiotics. Please take antibiotics until the course is complete Please take Tylenol (2 pills, 650 mg), ibuprofen (2 pills, 400 mg) every 6 hours as needed for pain and fever control. Please return to the emergency department if your symptoms change or worsen. Please follow with your primary care physician for further outpatient evaluation and management.[facility] Work Phone: Note* RAMIRO MARTIN MD: SIGN, VERIFY Event Display: EKG [ED AO] - CV Authored Date: [facility] Progress note No data available for this section [facility] Reason for referral (narrative)* Outpatient Procedure (Routine) - Authorized Specialty Diagnoses / Procedures Referred By Contac t Referred To [facility] Diagnoses Bilateral carotid bruits Procedures US CAROTID ARTERIES MIA VAS LAB DUPLEX SCAN EXTRACRANIAL ART COMPL BI STUDY Tom Conte MD [address] [place] [address] [facility] [place] [phone] Referral ID Status Reason Start Date Expiration Date Visits Requested Visits Authorized [id number] Authorized Auto-Generat ed Referral 11/21/2022 11/21/2023 1 1 [facility] for referral (narrative)* Outpatient Procedure (Routine) - Closed Specialty Diagnoses / Procedures Referred By Contac t Referred To Contact [facility] [place] Diagnoses ESRD (end stage renal disease) (HCC) Procedures US A/V FISTULA GRAFT UNL VAS LAB DUPLEX SCAN HEMODIALYSIS ACCESS Gio Velarde MD [address] [place] [address] [facility] [address] [address] Referral ID Status Reason Start Date Expiration Date V isits Requested Visits Authorized [id number] Closed Auto-Generate d Referral 06/04/2023 06/03/2024 1 1 * Outpatient Procedure (Routine) - Pending Review Specialty Diagnoses / Procedures Referred By Contac t Referred To Contact [facility] Diagnoses ESRD (end stage renal disease) (HCC) Procedures US LEG VEIN MAP MIA VAS LAB DUP-SCAN XTR VEINS COMPLETE BILATERAL STUDY Gio Velarde MD [address] [place] [address] [address] Referral ID Status Reason Start Date Expiration Date Visits Requested Visits Authorized [id number] Pending Review Auto-Generat ed Referral 06/03/2024 1 1 * Diagnostic Procedure Only (Routine) - Pending Review Specialty Diagnoses / Procedures Referred By Contac t Referred To Contact [facility] Diagnoses Encounter for screening for cardiovascular disorders ESRD (end stage renal disease) (HCC) Procedures NM CARDIAC PERF STRESS/PHARM MYOCARDIAL SPECT MULTIPLE STUDIES Gio Velarde MD [address] [place] [address] [facility] [address] [place] [address] Referral ID Status Reason Start Date Expiration Date Visits Requested Visits Authorized [id number] Pending Review Auto-Generat ed Referral 3 07/03/2024 1 1 * Outpatient Procedure (Routine) - Pending Review Specialty Diagnoses / Procedures Referred By Ja duff Referred To [facility] Diagnoses ESRD (end stage renal disease) ([facility]) Procedures ECHO ECHO TTHRC R-T 2D W/WOM-MODE COMPL SPEC&COLR D Gio Velarde MD [address] [place] [address] [facility] [address] [address] Referral ID Status Reason Start Date Expiration Date Visits Requested Visits Authorized [id number] Pending Review Auto-Generat ed Referral 3 06/03/2024 1 1 [facility] for referral (narrative)* Outpatient Procedure (Routine) - Authorized Specialty Diagnoses / Procedures Referred By Ja duff Referred To Contact [facility] Diagnoses ESRD (end stage renal disease) (HCC) Arteriovenous fistula, acquired (HCC) Procedures US A/V FISTULA GRAFT UNL VAS LAB DUPLEX SCAN HEMODIALYSIS ACCESS Gio Velarde MD [address] [place] [address] [facility] [address] [address] Referral ID Status Reason Start Date Expiration Date Visits Requested Visits Authorized [id number] Authorized Auto-Generat ed Referral 08/08/2023 08/07/2024 1 1 * Outpatient Procedure (Routine) - Authorized Specialty Diagnoses / Procedures Referred By Contac t Referred To Contact [facility] Diagnoses ESRD (end stage renal disease) (HCC) Arteriovenous fistula, acquired (HCC) Procedures US ARM ARTERIAL UNL VAS LAB DUP-SCAN UXTR ART/ARTL BP UNI/[place] [address] [place] [address] [facility] [address] [address] Referral ID Status Reason Start Date Expiration Date Visits Requested Visits Authorized [id number] Authorized Auto-Generat ed Referral 08/08/2023 08/07/2024 1 1 [facility] for referral (narrative)* Outpatient Procedure (Routine) - Pending Review Specialty Diagnoses / Procedures Referred By Contac t Referred To Contact [facility] Diagnoses ESRD (end stage renal disease) (HCC) Procedures US LEG ARTERIAL PERIPH UNL VAS LAB DUP-SCAN LXTR ART/ARTL BP UNI/[place] [address] [place] [address] [facility] [address] [address] Referral ID Status Reason Start Date Expiration Date Visits Requested Visits Authorized [id number] Pending Review Auto-Generat ed Referral 10/23/2023 10/22/2024 1 1 * Outpatient Procedure (Routine) - Authorized Specialty Diagnoses / Procedures Referred By Contac t Referred To Contact [facility] Diagnoses ESRD (end stage renal disease) ([facility]) Procedures US A/V FISTULA GRAFT UNL VAS LAB DUPLEX SCAN [place] [address] [place] [address] [facility] [address] [address] Referral ID Status Reason Start Date Expiration Date Visits Requested Visits Authorized [id number] Authorized Auto-Generat ed Referral 10/23/2023 10/22/2024 1 1 [facility] for referral (narrative)* Outpatient Procedure (Routine) - Authorized Specialty Diagnoses / Procedures Referred By Contac t [facility] Diagnoses Arteriovenous fistula, acquired (HCC) Procedures US ARM ARTERIAL UNL VAS LAB DUP-SCAN UXTR ART/ARTL BPGS UNI/LMTD STUDY Gio Velarde MD [address] [place] [address] [facility] [place] [address] Referral ID Status Reason Start Date Expiration Date Visits Requested Visits Authorized [id number] Authorized Auto-Generat ed Referral 10/23/2023 10/22/2024 1 1 [facility] for referral (narrative)* Diagnostic Procedure Only (Urgent) - Closed Specialty Diagnoses / Procedures Referred By Contac t Referred To Contact XR IMAGING Diagnoses Lumbar pain Procedures XR LUMBAR GENERAL 3V AP/LAT/L5-S1 RADEX SPINE LUMBOSACRAL 2/3 VIEWS Christal Lima PA [address] [place] [address] [place] [address] Referral ID Status Reason Start Date Expiration Date V isits Requested Visits Authorized [id number] Closed Auto-Generate d Referral 04/01/2024 05/01/2025 1 1 [facility] for referral (narrative)* Diagnostic Procedure Only (Urgent) - Closed Specialty Diagnoses / Procedures Referred By Contac t Referred To Contact XR IMAGING Diagnoses Lumbar pain Procedures XR LUMBAR GENERAL 3V AP/LAT/L5-S1 RADEX SPINE LUMBOSACRAL 2/3 VIEWS Christal Lima PA [address] [place] [address] [place] [address] Referral ID Status Reason Start Date Expiration Date V isits Requested Visits Authorized [id number] Closed Auto-Generate d Referral 04/01/2024 05/01/2025 1 1 [facility] referral (narrative)No reason for [facility] Reason for visit Narrative* Diagnostic Procedure Only (Urgent) - Closed Specialty Diagnoses / Procedures Referred By Contac t Referred To Contact XR IMAGING Diagnoses Lumbar pain Procedures XR LUMBAR GENERAL 3V AP/LAT/L5-S1 RADEX SPINE LUMBOSACRAL 2/3 VIEWS Christal Lima, DEBBIE [address] [place] [address] [place] [address] Referral ID Status Reason Start Date Expiration Date V isits Requested Visits Authorized [id number] Closed Auto-Generate d Referral 04/01/2024 05/01/2025 1 1 [facility] for visit Narrative* Imaging (Routine) - Pending Review Specialty Diagnoses / Procedures Referred By Contac t Referred To Contact Radiology Diagnoses ESRD (end stage renal disease) (Multi) Kidney replaced by transplant ([facility]) Pre-transplant evaluation for kidney transplant Type 2 diabetes mellitus with other specified complication, unspecified whether continuous churn buttermaker insulin use (Multi) Procedures CT cardiac [place] [address] [address] Department [place] [address] Phone: tel: fax: Referral ID Status Reason Start Date Expiration Date Visits Requested Visits Authorized [id number] Pending Review Perform Procedure 03/14/2025 04/13/2026 1 1 [facility] Work Phone: Reglym for visit Narrative* CV Imaging (Routine) - Authorized Specialty Diagnoses / Procedures Referred By Contac t Referred To Contact Cardiology Diagnoses ESRD (end stage renal disease) (Multi) Kidney replaced by transplant ([facility]) Pre-transplant evaluation for kidney transplant Type 2 diabetes mellitus with other specified complication, unspecified whether long-term insulin use (Multi) Procedures Transthoracic Echo (TTE) Complete [place] ECHO TTHRC R-T 2D W/WOM-MODE COMPL SPEC&[place] [address] [address] Department [place] [address] Phone: tel: fax: Referral ID Status Reason Start Date Expiration Date Visits Requested Visits Authorized [id number] Authorized Perform Procedure 03/14/2025 03/14/2026 1 1 [facility] Work Phone: Reason for visit Narrative* Cardiovascular (Routine) - Pending Review Specialty Diagnoses / Procedures Referred By Contac t Referred To Contact Diagnoses ESRD (end stage renal disease) (Multi) Kidney replaced by transplant ([facility]) Pre-transplant evaluation for kidney transplant Type 2 diabetes mellitus with other specified complication, unspecified whether long-term insulin use (Multi) Procedures [place] 12 [place] [address] [address] Department of Surgery-Transplant [place] [phone] Phone: tel: fax: Referral ID Status Reason Start Date Expiration Date V isits Requested Visits Authorized [id number] Pending Review 03/14/2025 03/14/2026 1 1 [facility] Work Phone: Family History Unknown Family Member Name Dates Details No [...] device (LVAD) Unknown Summary Purpose Advance Directives Documents on File Type Date Recorded 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 Advance Directive(s) 09/18/2021 10:32 AM [...] Will Yes March 27 5:39pm Power of Certified Medical Asst Yes March 27 021 5:39pm Advance Directive Response Recorded Date/ Time Name of Medical Power of Certified Medical Asst Marina duff February 04, 2022 4:58am Advance Directives Yes April 24, 2018 2:58pm Living Will Yes February 04 4:58am Power of Certified Medical Asst Yes February 04, 022 4:58am Documents on File Type Date Recorded 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 Advance Directive(s) 07/17/2021 1:14 PM Documents on File Type Date Recorded 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 Advance Directive(s) 07/17/2021 1:14 PM Advance Directive Response Recorded Date/ Time Advance Directives Yes April 24, 2018 1:58pm Living Will No June 29 8:57pm Power of Certified Medical Asst No June 29 023 8:57pm Advance Directive Response Recorded Date/ Time Advance Directives Yes April 24, 2018 1:58pm Living Will No July 30 8:27pm Power of Certified Medical Asst No July 30, 2022 8:27pm Documents on File Type Date Recorded 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 Advance Directive(s) 09/06/2022 3:00 PM Advance Directive(s) 07/17/2021 1:14 PM Advance Directive Response Recorded Date/ Time Advance Directives Yes April 24, 2018 2:58pm Living Will No July 30 9:27pm Power of Certified Medical Asst No July 30, 2022 9:27pm Documents on File Type Date Recorded 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 No December 07, 2024 9:38pm Advance Directives [...] does not warra nt discussion tb completed Date Activated Date Inactivated Comments 12/08/2024 9:12 AM Question Answer Comments Plan of Care: Code Status Discussion Completed Decision Maker: Patient Date Activated Date Inactivated Comments 12/08/2024 8:07 AM 12/08/2024 9:12 AM Question Answer Comments Plan of Care: Code Status Discussion Not Compl eted Decision Maker: Provider Rationale: Patient condition does not warra nt discussion tb completed Advance Directive Response Recorded Date/ Time Do you have a Healthcare Power of Certified Medical Asst? No December 07, 2024 9:38pm Do you have a Healthcare Power of Certified Medical Asst? No March 15, 2025 9:26pm Advance Directives Yes April 24, 2018 2:58pm Advance Directive Response Recorded Date/ Time Do you have a Healthcare Power of Certified Medical Asst? No March 15, 2025 8:26pm Advance Directives Yes April 24, 2018 1:58pm Chief Complaint * ChiefComplaintFreeTextNoteForm_UH: * Annual follow up while on kidney transplant list Chief Complaint and Reason for Visit Chief Complaint Sharp chest pains/CM [facility] CHEST PAIN CHEST PAIN Reason for Visit [...] m ABD December 07, 2024 9:22 pm Chief Complaint Admit Date Pacer Check Remote November 29, 2024 1:50a m ABD December 07, 2024 9:22 pm SOB March 15, 2025 9:20pm Chief Complaint Admit Date SOB March 15, 2025 9:20pm SINUS COMPLAINT/CHEST CONGESTION/COUGH O ctober 2024 2:03pm Medications Administered Section Inactive Administered Medications - [...] CT ANGIOGRAPHY CHEST W/CONTRAST/NONCONTRAST Gio Velarde MD [address] [place] [id number] [id number] Referral ID Status Reason Start Date Expiration Date Visits Requested Visits Authorized [id number] Pending Review Auto-Generat ed Referral 05/29/2023 06/27/2024 1 1 Specialty Diagnoses / Procedures Referred By Contac t Referred To Contact CT IMAGING Diagnoses Vasculopathy SVC (superior vena cava obstruction) Procedures CTA ABD/PEL WO/W IVCON CT ANGIO ABD&PLVIS CNTRST MTRL W/WO CNTRST Gio Barrow MD [address] [place] [id number] Imaging [place] [address] Referral ID Status Reason Start Date Expiration Date Visits Requested Visits Authorized [id number] Pending Review Auto-Generat ed Referral 05/23/2023 06/21/2024 1 1 Specialty Diagnoses / Procedures Referred By Contac t Referred To Contact CT IMAGING Diagnoses Vasculopathy SVC (superior vena cava obstruction) Procedures CTA CHEST (NONGATED) WO/W IVCON CT ANGIOGRAPHY CHEST W/CONTRAST/NONCONTRAST Gio Velarde MD [address] [place] [id number] [facility] Referral ID Status Reason Start Date Expiration Date Visits Requested Visits Authorized [id number] Pending Review Auto-Generat ed Referral 05/23/2023 06/21/2024 1 1 Specialty Diagnoses / Procedures Referred By Contac t Referred To Contact Manjit Field MD [address] [place] [address] Referral ID Status Reason Start Date Expiration Date V isits Requested Visits Authorized [id number] Pending Review 1 1 Additional Source Comments [...] section and content) DATE CREATED AUTHOR 01/16/2021 Ignacio [facility] DATE CREATED AUTHOR AUTHOR'S ORGANIZ ATION 03/01/2021 [employer] DATE CREATED AUTHOR AUTHOR'S ORGANIZ ATION 04/12/2021 [facility] DATE CREATED AUTHOR AUTHOR'S ORGANIZ ATION 09/20/2022 [facility] DATE CREATED AUTHOR AUTHOR'S ORGANIZ ATION 10/14/2022 [facility] DATE CREATED AUTHOR AUTHOR'S ORGANIZ ATION 05/18/2023 [facility]) DATE CREATED AUTHOR AUTHOR'S ORGANIZ ATION 07/01/2023 [facility] DATE CREATED AUTHOR AUTHOR'S ORGANIZ ATION 11/25/2024 [facility] DATE CREATED AUTHOR AUTHOR'S ORGANIZ ATION 03/25/2025 [facility] DATE CREATED AUTHOR AUTHOR'S ORGANIZ ATION 03/25/2025 [facility] DATE CREATED AUTHOR AUTHOR'S ORGANIZ ATION 04/10/2025 [facility] DATE CREATED AUTHOR AUTHOR'S ORGANIZ ATION 04/12/2025 [facility] DATE CREATED AUTHOR AUTHOR'S ORGANIZ ATION 04/21/2025 [facility] DATE CREATED AUTHOR AUTHOR'S ORGANIZ ATION 04/22/2025 [facility] DATE CREATED AUTHOR AUTHOR'S ORGANIZ ATION 04/23/2025 [facility] Source Comments (unrecognize d section and content) In the event this informatio n is protected by the Federal Confidentiality of Alcohol and Drug Abuse Patient Records regulations: The Federal rules restrict any use of the information to criminally investigate or prosecute any alcohol or drug abuse patient.[facility] the event this information is protected by the Federal Confidentiality of Alcohol and Drug Abuse Patient Records regulations: The Federal rules restrict any use of the information to criminally investigate or prosecute any alcohol or drug abuse patient.[facility] HospitalIn the event this information is protected by the Federal Confidentiality of Alcohol and Drug Abuse Patient Records regulations: The Federal rules restrict any use of the information to criminally investigate or prosecute any alcohol or drug abuse patient.[facility] Hospital[facility] the event this information is protected by the Federal Confidentiality of Alcohol and Drug Abuse Patient Records regulations: The Federal rules restrict any use of the information to criminally investigate or prosecute any alcohol or drug abuse patient.[facility] HospitalIn the event this information is protected by the Federal Confidentiality of Alcohol and Drug Abuse Patient Records regulations: The Federal rules restrict any use of the information to criminally investigate or prosecute any alcohol or drug abuse patient.[facility] Hospital[facility] the event this information is protected by the Federal Confidentiality of Alcohol and Drug Abuse Patient Records regulations: The Federal rules restrict any use of the information to criminally investigate or prosecute any alcohol or drug abuse patient.[facility] HospitalIn the event this information is protected by the Federal Confidentiality of Alcohol and Drug Abuse Patient Records regulations: The Federal rules restrict any use of the information to criminally investigate or prosecute any alcohol or drug abuse patient.[facility] HospitalIn the event this information is protected by the Federal Confidentiality of Alcohol and Drug Abuse Patient Records regulations: The Federal rules restrict any use of the information to criminally investigate or prosecute any alcohol or drug abuse patient.[facility] HospitalIn the event this information is protected by the Federal Confidentiality of Alcohol and Drug Abuse Patient Records regulations: The Federal rules restrict any use of the information to criminally investigate or prosecute any alcohol or drug abuse patient.[facility] HospitalIn the event this information is protected by the Federal Confidentiality of Alcohol and Drug Abuse Patient Records regulations: The Federal rules restrict any use of the information to criminally investigate or prosecute any alcohol or drug abuse patient.[facility] HospitalIn the event this information is protected by the Federal Confidentiality of Alcohol and Drug Abuse Patient Records regulations: The Federal rules restrict any use of the information to criminally investigate or prosecute any alcohol or drug abuse patient.[facility] HospitalIn the event this information is protected by the Federal Confidentiality of Alcohol and Drug Abuse Patient Records regulations: The Federal rules restrict any use of the information to criminally investigate or prosecute any alcohol or drug abuse patient.[facility] HospitalIn the event this information is protected by the Federal Confidentiality of Alcohol and Drug Abuse Patient Records regulations: The Federal rules restrict any use of the information to criminally investigate or prosecute any alcohol or drug abuse patient.[facility] HospitalIn the event this information is protected by the Federal Confidentiality of Alcohol and Drug Abuse Patient Records regulations: The Federal rules restrict any use of the information to criminally investigate or prosecute any alcohol or drug abuse patient.[facility] HospitalIn the event this information is protected by the Federal Confidentiality of Alcohol and Drug Abuse Patient Records regulations: The Federal rules restrict any use of the information to criminally investigate or prosecute any alcohol or drug abuse patient.[facility] HospitalIn the event this information is protected by the Federal Confidentiality of Alcohol and Drug Abuse Patient Records regulations: The Federal rules restrict any use of the information to criminally investigate or prosecute any alcohol or drug abuse patient.[facility] HospitalIn the event this information is protected by the Federal Confidentiality of Alcohol and Drug Abuse Patient Records regulations: The Federal rules restrict any use of the information to criminally investigate or prosecute any alcohol or drug abuse patient.[facility] HospitalIn the event this information is protected by the Federal Confidentiality of Alcohol and Drug Abuse Patient Records regulations: The Federal rules restrict any use of the information to criminally investigate or prosecute any alcohol or drug abuse patient.[facility] HospitalIn the event this information is protected by the Federal Confidentiality of Alcohol and Drug Abuse Patient Records regulations: The Federal rules restrict any use of the information to criminally investigate or prosecute any alcohol or drug abuse patient.[facility] HospitalIn the event this information is protected by the Federal Confidentiality of Alcohol and Drug Abuse Patient Records regulations: The Federal rules restrict any use of the information to criminally investigate or prosecute any alcohol or drug abuse patient.[facility] HospitalIn the event this information is protected by the Federal Confidentiality of Alcohol and Drug Abuse Patient Records regulations: The Federal rules restrict any use of the information to criminally investigate or prosecute any alcohol or drug abuse patient.[facility] HospitalIn the event this information is protected by the Federal Confidentiality of Alcohol and Drug Abuse Patient Records regulations: The Federal rules restrict any use of the information to criminally investigate or prosecute any alcohol or drug abuse patient.[facility] HospitalIn the event this information is protected by the Federal Confidentiality of Alcohol and Drug Abuse Patient Records regulations: The Federal rules restrict any use of the information to criminally investigate or prosecute any alcohol or drug abuse patient.[facility] HospitalIn the event this information is protected by the Federal Confidentiality of Alcohol and Drug Abuse Patient Records regulations: The Federal rules restrict any use of the information to criminally investigate or prosecute any alcohol or drug abuse patient.[facility] HospitalIn the event this information is protected by the Federal Confidentiality of Alcohol and Drug Abuse Patient Records regulations: The Federal rules restrict any use of the information to criminally investigate or prosecute any alcohol or drug abuse patient.[facility] HospitalIn the event this information is protected by the Federal Confidentiality of Alcohol and Drug Abuse Patient Records regulations: The Federal rules restrict any use of the information to criminally investigate or prosecute any alcohol or drug abuse patient.[facility] HospitalIn the event this information is protected by the Federal Confidentiality of Alcohol and Drug Abuse Patient Records regulations: The Federal rules restrict any use of the information to criminally investigate or prosecute any alcohol or drug abuse patient.[facility] HospitalIn the event this information is protected by the Federal Confidentiality of Alcohol and Drug Abuse Patient Records regulations: The Federal rules restrict any use of the information to criminally investigate or prosecute any alcohol or drug abuse patient.[facility] HospitalIn the event this information is protected by the Federal Confidentiality of Alcohol and Drug Abuse Patient Records regulations: The Federal rules restrict any use of the information to criminally investigate or prosecute any alcohol or drug abuse patient.[facility] HospitalIn the event this information is protected by the Federal Confidentiality of Alcohol and Drug Abuse Patient Records regulations: The Federal rules restrict any use of the information to criminally investigate or prosecute any alcohol or drug abuse patient.[facility] HospitalIn the event this information is protected by the Federal Confidentiality of Alcohol and Drug Abuse Patient Records regulations: The Federal rules restrict any use of the information to criminally investigate or prosecute any alcohol or drug abuse patient.[facility] HospitalIn the event this information is protected by the Federal Confidentiality of Alcohol and Drug Abuse Patient Records regulations: The Federal rules restrict any use of the information to criminally investigate or prosecute any alcohol or drug abuse patient.[facility] HospitalIn the event this information is protected by the Federal Confidentiality of Alcohol and Drug Abuse Patient Records regulations: The Federal rules restrict any use of the information to criminally investigate or prosecute any alcohol or drug abuse patient.[facility] HospitalIn the event this information is protected by the Federal Confidentiality of Alcohol and Drug Abuse Patient Records regulations: The Federal rules restrict any use of the information to criminally investigate or prosecute any alcohol or drug abuse patient.[facility] HospitalIn the event this information is protected by the Federal Confidentiality of Alcohol and Drug Abuse Patient Records regulations: The Federal rules restrict any use of the information to criminally investigate or prosecute any alcohol or drug abuse patient.[facility] HospitalIn the event this information is protected by the Federal Confidentiality of Alcohol and Drug Abuse Patient Records regulations: The Federal rules restrict any use of the information to criminally investigate or prosecute any alcohol or drug abuse patient.[facility] HospitalIn the event this information is protected by the Federal Confidentiality of Alcohol and Drug Abuse Patient Records regulations: The Federal rules restrict any use of the information to criminally investigate or prosecute any alcohol or drug abuse patient.[facility] HospitalIn the event this information is protected by the Federal Confidentiality of Alcohol and Drug Abuse Patient Records regulations: The Federal rules restrict any use of the information to criminally investigate or prosecute any alcohol or drug abuse patient.[facility] HospitalIn the event this information is protected by the Federal Confidentiality of Alcohol and Drug Abuse Patient Records regulations: The Federal rules restrict any use of the information to criminally investigate or prosecute any alcohol or drug abuse patient.[facility] HospitalIn the event this information is protected by the Federal Confidentiality of Alcohol and Drug Abuse Patient Records regulations: The Federal rules restrict any use of the information to criminally investigate or prosecute any alcohol or drug abuse patient.[facility] HospitalIn the event this information is protected by the Federal Confidentiality of Alcohol and Drug Abuse Patient Records regulations: The Federal rules restrict any use of the information to criminally investigate or prosecute any alcohol or drug abuse patient.[facility] HospitalIn the event this information is protected by the Federal Confidentiality of Alcohol and Drug Abuse Patient Records regulations: The Federal rules restrict any use of the information to criminally investigate or prosecute any alcohol or drug abuse patient.[facility] HospitalIn the event this information is protected by the Federal Confidentiality of Alcohol and Drug Abuse Patient Records regulations: The Federal rules restrict any use of the information to criminally investigate or prosecute any alcohol or drug abuse patient.[facility] HospitalIn the event this information is protected by the Federal Confidentiality of Alcohol and Drug Abuse Patient Records regulations: The Federal rules restrict any use of the information to criminally investigate or prosecute any alcohol or drug abuse patient.[facility] HospitalIn the event this information is protected by the Federal Confidentiality of Alcohol and Drug Abuse Patient Records regulations: The Federal rules restrict any use of the information to criminally investigate or prosecute any alcohol or drug abuse patient.[facility] HospitalIn the event this information is protected by the Federal Confidentiality of Alcohol and Drug Abuse Patient Records regulations: The Federal rules restrict any use of the information to criminally investigate or prosecute any alcohol or drug abuse patient.[facility] HospitalIn the event this information is protected by the Federal Confidentiality of Alcohol and Drug Abuse Patient Records regulations: The Federal rules restrict any use of the information to criminally investigate or prosecute any alcohol or drug abuse patient.[facility] HospitalIn the event this information is protected by the Federal Confidentiality of Alcohol and Drug Abuse Patient Records regulations: The Federal rules restrict any use of the information to criminally investigate or prosecute any alcohol or drug abuse patient.[facility] HospitalIn the event this information is protected by the Federal Confidentiality of Alcohol and Drug Abuse Patient Records regulations: The Federal rules restrict any use of the information to criminally investigate or prosecute any alcohol or drug abuse patient.[facility] HospitalIn the event this information is protected by the Federal Confidentiality of Alcohol and Drug Abuse Patient Records regulations: The Federal rules restrict any use of the information to criminally investigate or prosecute any alcohol or drug abuse patient.[facility] HospitalIn the event this information is protected by the Federal Confidentiality of Alcohol and Drug Abuse Patient Records regulations: The Federal rules restrict any use of the information to criminally investigate or prosecute any alcohol or drug abuse patient.[facility] HospitalIn the event this information is protected by the Federal Confidentiality of Alcohol and Drug Abuse Patient Records regulations: The Federal rules restrict any use of the information to criminally investigate or prosecute any alcohol or drug abuse patient.[facility] HospitalIn the event this information is protected by the Federal Confidentiality of Alcohol and Drug Abuse Patient Records regulations: The Federal rules restrict any use of the information to criminally investigate or prosecute any alcohol or drug abuse patient.[facility] HospitalIn the event this information is protected by the Federal Confidentiality of Alcohol and Drug Abuse Patient Records regulations: The Federal rules restrict any use of the information to criminally investigate or prosecute any alcohol or drug abuse patient.[facility] HospitalIn the event this information is protected by the Federal Confidentiality of Alcohol and Drug Abuse Patient Records regulations: The Federal rules restrict any use of the information to criminally investigate or prosecute any alcohol or drug abuse patient.[facility] HospitalIn the event this information is protected by the Federal Confidentiality of Alcohol and Drug Abuse Patient Records regulations: The Federal rules restrict any use of the information to criminally investigate or prosecute any alcohol or drug abuse patient.[facility] HospitalIn the event this information is protected by the Federal Confidentiality of Alcohol and Drug Abuse Patient Records regulations: The Federal rules restrict any use of the information to criminally investigate or prosecute any alcohol or drug abuse patient.[facility] HospitalIn the event this information is protected by the Federal Confidentiality of Alcohol and Drug Abuse Patient Records regulations: The Federal rules restrict any use of the information to criminally investigate or prosecute any alcohol or drug abuse patient.[facility] HospitalIn the event this information is protected by the Federal Confidentiality of Alcohol and Drug Abuse Patient Records regulations: The Federal rules restrict any use of the information to criminally investigate or prosecute any alcohol or drug abuse patient.[facility] HospitalIn the event this information is protected by the Federal Confidentiality of Alcohol and Drug Abuse Patient Records regulations: The Federal rules restrict any use of the information to criminally investigate or prosecute any alcohol or drug abuse patient.[facility] HospitalIn the event this information is protected by the Federal Confidentiality of Alcohol and Drug Abuse Patient Records regulations: The Federal rules restrict any use of the information to criminally investigate or prosecute any alcohol or drug abuse patient.[facility] HospitalIn the event this information is protected by the Federal Confidentiality of Alcohol and Drug Abuse Patient Records regulations: The Federal rules restrict any use of the information to criminally investigate or prosecute any alcohol or drug abuse patient.[facility] HospitalIn the event this information is protected by the Federal Confidentiality of Alcohol and Drug Abuse Patient Records regulations: The Federal rules restrict any use of the information to criminally investigate or prosecute any alcohol or drug abuse patient.[facility] HospitalIn the event this information is protected by the Federal Confidentiality of Alcohol and Drug Abuse Patient Records regulations: The Federal rules restrict any use of the information to criminally investigate or prosecute any alcohol or drug abuse patient.[facility] HospitalIn the event this information is protected by the Federal Confidentiality of Alcohol and Drug Abuse Patient Records regulations: The Federal rules restrict any use of the information to criminally investigate or prosecute any alcohol or drug abuse patient.[facility] HospitalIn the event this information is protected by the Federal Confidentiality of Alcohol and Drug Abuse Patient Records regulations: The Federal rules restrict any use of the information to criminally investigate or prosecute any alcohol or drug abuse patient.[facility] HospitalIn the event this information is protected by the Federal Confidentiality of Alcohol and Drug Abuse Patient Records regulations: The Federal rules restrict any use of the information to criminally investigate or prosecute any alcohol or drug abuse patient.[facility] HospitalIn the event this information is protected by the Federal Confidentiality of Alcohol and Drug Abuse Patient Records regulations: The Federal rules restrict any use of the information to criminally investigate or prosecute any alcohol or drug abuse patient.[facility] HospitalIn the event this information is protected by the Federal Confidentiality of Alcohol and Drug Abuse Patient Records regulations: The Federal rules restrict any use of the information to criminally investigate or prosecute any alcohol or drug abuse patient.[facility] HospitalIn the event this information is protected by the Federal Confidentiality of Alcohol and Drug Abuse Patient Records regulations: The Federal rules restrict any use of the information to criminally investigate or prosecute any alcohol or drug abuse patient.[facility] HospitalIn the event this information is protected by the Federal Confidentiality of Alcohol and Drug Abuse Patient Records regulations: The Federal rules restrict any use of the information to criminally investigate or prosecute any alcohol or drug abuse patient.[facility] HospitalIn the event this information is protected by the Federal Confidentiality of Alcohol and Drug Abuse Patient Records regulations: The Federal rules restrict any use of the information to criminally investigate or prosecute any alcohol or drug abuse patient.[facility] HospitalIn the event this information is protected by the Federal Confidentiality of Alcohol and Drug Abuse Patient Records regulations: The Federal rules restrict any use of the information to criminally investigate or prosecute any alcohol or drug abuse patient.[facility] HospitalIn the event this information is protected by the Federal Confidentiality of Alcohol and Drug Abuse Patient Records regulations: The Federal rules restrict any use of the information to criminally investigate or prosecute any alcohol or drug abuse patient.[facility] HospitalIn the event this information is protected by the Federal Confidentiality of Alcohol and Drug Abuse Patient Records regulations: The Federal rules restrict any use of the information to criminally investigate or prosecute any alcohol or drug abuse patient.[facility] HospitalIn the event this information is protected by the Federal Confidentiality of Alcohol and Drug Abuse Patient Records regulations: The Federal rules restrict any use of the information to criminally investigate or prosecute any alcohol or drug abuse patient.[facility] HospitalIn the event this information is protected by the Federal Confidentiality of Alcohol and Drug Abuse Patient Records regulations: The Federal rules restrict any use of the information to criminally investigate or prosecute any alcohol or drug abuse patient.[facility] HospitalIn the event this information is protected by the Federal Confidentiality of Alcohol and Drug Abuse Patient Records regulations: The Federal rules restrict any use of the information to criminally investigate or prosecute any alcohol or drug abuse patient.[facility] HospitalIn the event this information is protected by the Federal Confidentiality of Alcohol and Drug Abuse Patient Records regulations: The Federal rules restrict any use of the information to criminally investigate or prosecute any alcohol or drug abuse patient.[facility] HospitalIn the event this information is protected by the Federal Confidentiality of Alcohol and Drug Abuse Patient Records regulations: The Federal rules restrict any use of the information to criminally investigate or prosecute any alcohol or drug abuse patient.[facility] HospitalIn the event this information is protected by the Federal Confidentiality of Alcohol and Drug Abuse Patient Records regulations: The Federal rules restrict any use of the information to criminally investigate or prosecute any alcohol or drug abuse patient.[facility] HospitalIn the event this information is protected by the Federal Confidentiality of Alcohol and Drug Abuse Patient Records regulations: The Federal rules restrict any use of the information to criminally investigate or prosecute any alcohol or drug abuse patient.[facility] HospitalIn the event this information is protected by the Federal Confidentiality of Alcohol and Drug Abuse Patient Records regulations: The Federal rules restrict any use of the information to criminally investigate or prosecute any alcohol or drug abuse patient.[facility] Care Teams (unrecognized sec tion and content) Oliving Machine Operator Relationship Specialty Start Date End Date Tom Conte MD [address] [place] [address] PCP - General Family Practice 08/18/15 Robert Garcia MD Nephrology 01/02/17 Oliving Machine Operator Relationship Specialty Start Date End Date Tom Conte MD [address] [place] [address] PCP - General Family Practice 08/18/15 Robert Garcia MD Nephrology 01/02/17 Oliving Machine Operator Relationship Specialty Start Date End Date Tom Conte MD [address] [place] [address] PCP - General Family Practice 08/18/15 Robert Garcia MD Nephrology 01/02/17 Oliving Machine Operator Relationship Specialty Start Date End Date Tom Conte MD [address] [place] [address] PCP - General Family Practice 08/18/15 Robert Garcia MD Nephrology 01/02/17 Oliving Machine Operator Relationship Specialty Start Date End Date Tom Conte MD [address] [facility] [place] [address] PCP - General Family Practice 08/18/15 Robert Garcia MD Nephrology 01/02/17 Oliving Machine Operator Relationship Specialty Start Date End Date Tom Conte MD [address] [facility] [place] [address] PCP - General Family Practice 08/18/15 Robert Garcia MD Nephrology 01/02/17 Oliving Machine Operator Relationship Specialty Start Date End Date Tom Conte MD [address] [facility] [place] [address] PCP - General Family Practice 08/18/15 Robert Garcia MD Nephrology 01/02/17 Oliving Machine Operator Relationship Specialty Start Date End Date Tom Conte MD [address] [facility] [place] [address] PCP - General Family Practice 08/18/15 Robert Garcia MD Nephrology 01/02/17 Oliving Machine Operator Relationship Specialty Start Date End Date Tom Conte MD [address] [facility] [place] [address] PCP - General Family Practice 08/18/15 Robert Garcia MD Nephrology 01/02/17 Oliving Machine Operator Relationship Specialty Start Date End Date Tom Conte MD [address] [place] [address] PCP - General Family Medicine 08/18/15 Robert Garcia MD Nephrology 01/02/17 Oliving Machine Operator Relationship Specialty Start Date End Date Tom Conte MD [address] [place] [address] PCP - General Family Medicine 08/18/15 Robert Garcia MD Nephrology 01/02/17 Oliving Machine Operator Relationship Specialty Start Date End Date Tom Conte MD [address] [place] [address] PCP - General Family Medicine 08/18/15 Robert Garcia MD Nephrology 01/02/17 Oliving Machine Operator Relationship Specialty Start Date End Date Tom Conte MD [address] [place] [address] PCP - General Family Medicine 08/18/15 Robert Garcia MD Nephrology 01/02/17 Oliving Machine Operator Relationship Specialty Start Date End Date Tom Conte MD [address] [place] [address] PCP - General Family Medicine 08/18/15 Robert Garcia MD Nephrology 01/02/17 Oliving Machine Operator Relationship Specialty Start Date End Date Tom Conte MD [address] [facility] [place] [address] PCP - General Family Medicine 08/18/15 Robert Garcia MD [address] [facility] [place] [address] Nephrology 01/02/17 Oliving Machine Operator Relationship Specialty Start Date End Date Tom Conte MD [address] [facility] [place] [address] PCP - General Family Medicine 08/18/15 Robert Garcia MD [address] [facility] [place] [address] Nephrology 01/02/17 Oliving Machine Operator Relationship Specialty Start Date End Date Tom Conte MD [address] [facility] [place] [address] PCP - General Family Medicine 08/18/15 Robert Garcia MD [address] [facility] [place] [address] Nephrology 01/02/17 Oliving Machine Operator Relationship Specialty Start Date End Date Tom Conte MD [address] [facility] [place] [address] PCP - General Family Medicine 08/18/15 Robert Garcia MD [address] [facility] [place] [address] Nephrology 01/02/17 Oliving Machine Operator Relationship Specialty Start Date End Date Tom Conte MD [address] [facility] [place] [address] PCP - General Family Medicine 08/18/15 Robert Garcia MD [address] [facility] [place] [address] Nephrology 01/02/17 Oliving Machine Operator Relationship Specialty Start Date End Date Tom Conte MD [address] [facility] [place] [address] PCP - General Family Medicine 08/18/15 Robert Garcia MD [address] [facility] [place] [address] Nephrology 01/02/17 Oliving Machine Operator Relationship Specialty Start Date End Date Tom Conte MD [address] [facility] [place] [address] PCP - General Family Medicine 08/18/15 Robert Garcia MD [address] [facility] [place] [address] Nephrology 01/02/17 Oliving Machine Operator Relationship Specialty Start Date End Date Tom Conte MD [address] [facility] [place] [address] PCP - General Family Medicine 08/18/15 Robert Garcia MD [address] [facility] [place] [address] Nephrology 01/02/17 Team Status: Active Member Role [...] Care Provider Active Dr. Maine Ha DO Emergency Provider Active Oliving Machine Operator Relationship Specialty Start Date End Date Tom Conte MD [address] [facility] [place] [address] PCP - General Family Medicine 08/18/15 Robert Garcia MD [address] [facility] [place] [address] Nephrology 01/02/17 Oliving Machine Operator Relationship Specialty Start Date End Date Tom Conte MD [address] [facility] [place] [address] PCP - General Family Medicine 08/18/15 Robert Garcia MD [address] [facility] [place] [address] Nephrology 01/02/17 Oliving Machine Operator Relationship Specialty Start Date End Date Tom Conte MD [address] [facility] [place] [address] PCP - General Family Medicine 08/18/15 Robert Garcia MD [address] [facility] [place] [address] Nephrology 01/02/17 Oliving Machine Operator Relationship Specialty Start Date End Date Tom Conte MD [address] [facility] [place] [address] PCP - General Family Medicine 08/18/15 Robert Garcia MD [address] [facility] [place] [address] Nephrology 01/02/17 Oliving Machine Operator Relationship Specialty Start Date End Date Tom Conte MD [address] [facility] [place] [address] PCP - General Family Medicine 08/18/15 Robert Garcia MD [address] [facility] [place] [address] Nephrology 01/02/17 Team Status: Inactive Member Role [...] Dr. Tevin Khan MD Attending Provider, Referring Pr ovid Active Oliving Machine Operator Relationship Specialty Start Date End Date Tom Conte MD [address] [facility] [place] [address] PCP - General Family Medicine 08/18/15 Robert Garcia MD [address] [facility] [place] [address] Nephrology 01/02/17 Oliving Machine Operator Relationship Specialty Start Date End Date Tom Conte MD [address] [facility] [place] [address] PCP - General Family Medicine 08/18/15 Robert Garcia MD [address] [facility] [place] [address] Nephrology 01/02/17 Oliving Machine Operator Relationship Specialty Start Date End Date Tom Conte MD [address] [place] [address] PCP - General Family Medicine 08/18/15 Robert Garcia MD [address] [facility] [place] [address] Nephrology 01/02/17 Oliving Machine Operator Relationship Specialty Start Date End Date Tom Conte MD [address] [place] [address] PCP - General Family Medicine 08/18/15 Robert Garcia MD [address] [place], [place] [address] Nephrology 01/02/17 Oliving Machine Operator Relationship Specialty Start Date End Date Tom Conte MD [address] [place], [place] [address] PCP - General Family Medicine 08/18/15 Robert Garcia MD [address] [place], [place] [address] Nephrology 01/02/17 Oliving Machine Operator Relationship Specialty Start Date End Date Tom Conte MD [address] [place], [place] [address] PCP - General Family Medicine 08/18/15 Robert Garcia MD [address] [place], [place] [address] Nephrology 01/02/17 Oliving Machine Operator Relationship Specialty Start Date End Date Tom Conte MD [address] [place], [place] [address] PCP - General Family Medicine 08/18/15 Robert Garcia MD [address] [place] [address] Nephrology 01/02/17 Oliving Machine Operator Relationship Specialty Start Date End Date Monie Alston DO [address] [facility] [place] [address] PCP - General Family Medicine 06/04/23 Robert Garcia MD Nephrology 01/02/17 Oliving Machine Operator Relationship Specialty Start Date End Date Monie Alston DO [address] [place] [address] PCP - General Family Medicine 06/04/23 Robert Garcia MD Nephrology 01/02/17 Oliving Machine Operator Relationship Specialty Start Date End Date Monie Alston DO [address] [place] [address] PCP - General Family Medicine 06/04/23 Robert Garcia MD Nephrology 01/02/17 Oliving Machine Operator Relationship Specialty Start Date End Date Monie Alston DO [address] [place] [address] PCP - General Family Medicine 06/04/23 Robert Garcia MD Nephrology 01/02/17 Oliving Machine Operator Relationship Specialty Start Date End Date Monie Alston DO [address] [place] [address] PCP - General Family Medicine 06/04/23 Robert Garcia MD Nephrology 01/02/17 Oliving Machine Operator Relationship Specialty Start Date End Date Monie Alston DO [address] [place] [address] PCP - General Family Medicine 06/04/23 Robert Garcia MD Nephrology 01/02/17 Oliving Machine Operator Relationship Specialty Start Date End Date Monie Alston DO [address] [facility] [place] [address] PCP - General Family Medicine 06/04/23 Robert Garcia MD Nephrology 01/02/17 Oliving Machine Operator Relationship Specialty Start Date End Date Monie Alston DO [address] [place] [address] PCP - General Family Medicine 06/04/23 Robert Garcia MD Nephrology 01/02/17 Oliving Machine Operator Relationship Specialty Start Date End Date Monie Alston DO [address] [place] [address] PCP - General Family Medicine 06/04/23 Robert Garcia MD Nephrology 01/02/17 Oliving Machine Operator Relationship Specialty Start Date End Date Monie Alston DO [address] [facility] [place] [address] PCP - General Family Medicine 06/04/23 Robert Garcia MD Nephrology 01/02/17 Oliving Machine Operator Relationship Specialty Start Date End Date Monie Alston DO [address] [facility] [place] [address] PCP - General Family Medicine 06/04/23 Robert Garcia MD Nephrology 01/02/17 Oliving Machine Operator Relationship Specialty Start Date End Date Monie Alston DO [address] [facility] [place] [address] PCP - General Family Medicine 06/04/23 Robert Garcia MD Nephrology 01/02/17 Oliving Machine Operator Relationship Specialty Start Date End Date Tom Conte MD [address] [place] [address] PCP - General Family Medicine 08/18/15 06/03/23 Robert Garcia MD [address] [place], [place] [address] Nephrology 01/02/17 Oliving Machine Operator Relationship Specialty Start Date End Date Tom Conte MD [address] [place], [place] [address] PCP - General Family Medicine 08/18/15 06/03/23 Robert Garcia MD [address] [place], [place] [address] Nephrology 01/02/17 Oliving Machine Operator Relationship Specialty Start Date End Date Tom Conte MD [address] [place], [place] [address] PCP - General Family Medicine 08/18/15 06/03/23 Robert Garcia MD [address] [place] [address] Nephrology 01/02/17 Oliving Machine Operator Relationship Specialty Start Date End Date Tom Conte MD [address] [place] [address] PCP - General Family Medicine 08/18/15 06/03/23 Robert Garcia MD [address] [place], [place] [id number] Nephrology 01/02/17 Oliving Machine Operator Relationship Specialty Start Date End Date Tom Conte MD [address] [place] [address] PCP - General Family Medicine 08/18/15 06/03/23 Robert Garcia MD [address] [place], [place] [address] Nephrology 01/02/17 Oliving Machine Operator Relationship Specialty Start Date End Date Tom Conte MD [address] [place] [address] PCP - General Family Medicine 08/18/15 06/03/23 Robert Garcia MD [address] [place] [address] Nephrology 01/02/17 Oliving Machine Operator Relationship Specialty Start Date End Date Monie Alston DO [address] [facility] [place] [address] PCP - General Family Medicine 06/04/23 Robert Garcia MD Nephrology 01/02/17 Oliving Machine Operator Relationship Specialty Start Date End Date Monie Alston DO [address] [facility] [place] [address] PCP - General Family Medicine 06/04/23 Robert Garcia MD Nephrology 01/02/17 Oliving Machine Operator Relationship Specialty Start Date End Date Monie Alston DO [address] [facility] [place] [address] PCP - General Family Medicine 06/04/23 Robert Garcia MD Nephrology 01/02/17 Oliving Machine Operator Relationship Specialty Start Date End Date Monie Alston DO [address] [facility] [place] [address] PCP - General Family Medicine 06/04/23 Robert Garcia MD Nephrology 01/02/17 Oliving Machine Operator Relationship Specialty Start Date End Date Monie Alston DO [address] [place] [address] PCP - General Family Medicine 06/04/23 Robert [...] 2024 End: September 07, 2024 Dr. Tevin Kahn MD Attending Provider Active Start: September 07, [...] December 07, 2024 End: December 08, 2024 Oliving Machine Operator Relationship Specialty Start Date End Date Tom Conte MD [address] [place] [phone] PCP - General 07/08/18 Oliving Machine Operator Relationship Specialty Start Date End Date Tom Conte MD [address] [place] [phone] PCP - General 07/08/18 Oliving Machine Operator Relationship Specialty Start Date End Date Tom Conte MD [address] [place] [phone] PCP - General 07/08/18 Oliving Machine Operator Relationship Specialty Start Date End Date Tom Conte MD [address] [place] [phone] PCP - General 07/08/18 Team Status: Active Member Role/Relationship Status Dates Dr. Monie Alston DO Primary care physician Active Team Status: Inactive Member Role/Relationship Status Dates Dr. Monie Alston DO Primary care physician Active Start: November 29, 2024 End: November 29, 2024 Dr. Pablo Rogers MD Attending physician Active Start: November 29, 2024 End: November 29, 2024 Dr. Pablo Rogers MD Referring Provider Active S tart: November 29, 2024 End: November 29, 2024 Team Status: Inactive Member Role/Relationship Status Dates Dr. Monie Alston DO Primary care physician Active Start: December 07, 2024 End: December 08, 2024 Dr. Blaise Marinelli MD Attending physician Active St art: December 07, 2024 End: December 08, 2024 Dr. Blaise Marinelli MD Emergency Department Physician Acti ve Start: December 07, 2024 End: December 08, 2024 Team Status: Inactive Member Role/Relationship Status Dates Dr. Monie Alston DO Primary care physician Active Start: March 15, 2025 End: March 16, 2025 Dr. Prabhjot Andres DO Attending physician Active Start: March 15, 2025 End: March 16, 2025 Dr. Prabhjot Andres DO Emergency Departm ent Physician Active Start: March 15, 2025 End: March 16, 2025 Oliving Machine Operator Relationship Specialty Start Date End Date Tom Conte MD [address] [place] [phone] PCP - General 07/08/18 Oliving Machine Operator Relationship Specialty Start Date End Date Tom Conte MD [address] [place] [phone] PCP - General 07/08/18 Team Status: Inactive Member Role/Relationship Status Dates Dr. Monie Alston DO Primary care physician Active Start: March 15, 2025 End: March 16, 2025 Dr. Prabhjot Andres DO Attending physician Active Start: March 15, 2025 End: March 16, 2025 Dr. Prabhjot Andres DO Emergency Departm ent Physician Active Start: March 15, 2025 End: March 16, 2025 Team Status: Inactive Member Role/Relationship Status Dates Dr. Monie Alston DO Primary care physician Active Start: April 11, 2025 End: April 11, 2025 Dr. Monie Alston DO Referring Provider Active Start: April 11, 2025 End: April 11, 2025 Jeyson LEWIS, PA Attending physician Active Start: April 11, 2025 End: April 11, 2025 Reason for Visit (unrecogniz ed section and content) Reason Comments Hospital F/U Patient was seen in [place] about 1 month ago for pneumonia. Has migraine after every treatment Reason Comments Results Reason Comments Results Cussed the results o f his CT scan and initial thoracentesis fluid analysis. He is feeling okay at this time but still has some chest pain that is starting to ease out on the right side. Specialty Diagnoses / Procedures Referred By Contac t Referred To [facility] Diagnoses Recurrent right pleural effusion Recurrent right pleural effusion [J90] Procedures THORACENTESIS NEEDLE/CATH PLEURA W/IMAGING THORACENTESIS NEEDLE OR CATHETER ASPIRATION OF THE PLEURAL SPACE W IMAGING GUIDANCE Dc Interventional Radiology [address] [place] [address] Referral ID Status Reason Start Date Expiration Date Visits Re quested Visits Authorized [id number] 1 1 Reason Comments Patient Update Reason Comments Spirometry Specialty Diagnoses / Procedures Referred By Contac t Referred To [facility] RESPIRATORY [facility] Diagnoses Shortness of breath Procedures SPIROMETRY - BASELINE AND POST DILATOR BRNCDILAT RSPSE SPMTRY PRE&POST-BRNCDILAT ADMN Manjit Field MD [address] [place] [address] [address] Referral ID Status Reason Start Date Expiration Date V isits Requested Visits Authorized [id number] Closed Auto-Generate d Referral 03/18/2022 04/17/2023 1 1 Specialty Diagnoses / Procedures Referred By Contac t Referred To [facility]PIRATORY [facility] Diagnoses Shortness of breath Procedures LUNG DIFFUSION CAPACITY (DLCO) DIFFUSING CAPACITY Manjit Field MD [address] [place] [address] [address] Referral ID Status Reason Start Date Expiration Date V isits Requested Visits Authorized [id number] Closed Auto-Generate d Referral 03/18/2022 04/17/2023 1 1 Specialty Diagnoses / Procedures Referred By Contac t Referred To [facility]AT[facility] Diagnoses Shortness of breath Procedures LUNG VOLUMES Manjit Field MD [address] [place] [address] Respiratory [place] [address] [place] [address] Referral ID Status Reason Start Date Expiration Date V isits Requested Visits Authorized [id number] Closed Auto-Generate d Referral 03/18/2022 04/17/2023 1 [...] Transition Of Care 09/03/2022 TCM Initial A [facility] Discharge 09/02/22 Reason Comments Appointment Reason [...] (Multi) S[place] [address] [facility] Department of [place] [address] Phone: tel: fax: [facility] Emergency Medicine [address] [place] [address] Phone: tel: fax: Referral ID Status Reason Start Date Expiration Date Visits Re quested Visits Authorized [id number] 1 1 Goals (unrecognized section and content) Goals may be documented in a n alternate section Care Team (unrecognized sect ion and content) Care Team Personnel Name: TOM CONTE MD Member Role: Primary Care Physician Address: Address: [address] [place] [address] Care Team Related Persons Name: MERI BRAVO Address: [place], [place] Name: MARINA LUNDY Name: GILBERTO BENITO Address: [facility] Care Team Personnel Name: TOM CONTE MD Member Role: Primary Care Physician Address: Address: [address] [place] [address]- Name: JEFF SOUZA DO Position: ED Physician Member Role: Attending Physician Address: Address: [address] [place] [address]- Name: Joan Edwards RN Position: ED RN Member Role: ED RN Care Team Related Persons Name: MERI BRAVO Address: [place], [place] Name: MARINA LUNDY Name: GILBERTO BENITO Address: [facility] Care Team Personnel Name: TOM CONTE MD Member Role: Primary Care Physician Address: Address: [address] [place] [address] Name: RAMIRO MARTIN MD Position: ED Physician Member Role: ED Physician Address: Address: [facility] [address] [place] [address] Care Team Related Persons Name: MERI BRAVO Address: [place], [place] Name: MARINA LUNDY Name: GILBERTO BENITO Address: [facility] PRN Active and Recently Administ ered [...] Intraprocedure 1425 (Given - Provid er: Aleja Shankar RN) lidocaine (PF) 20 mg/mL (2 %) injection (XYLOCAINE) SUBCUTANEOUS, X (OR/PROCEDURE) PRN, Starting on Sweta 04/04/22 at 1414, Until Fri04/05/22 at 0303, Intraprocedure 1414 (Given - Provid er: Celso Reed MD, MD - Comment: lateral right) midazolam (PF) injection [...] pain scores based on patient preference? Yes 0944 (Not Given - Pr ovider: Karoline [...] be split. Do not crush or chew. 0945 (Not Given - Pr ovider: Karoline [...] constipation. 0941 (Given - Provid er: Karoline Leo RN) sevelamer carbonate (Renvela) tablet 800 mg [...] BE BASED ON THE PRIMARY CLINICAL RECORDS. [facility]. provides no warranty or guarantee of the accuracy or completeness of information in this document.
[2025-05-06 21:34] LABS: Hematocrit 29.6 % (40-54); Hemoglobin 9.4 g/dL (13.0-16.5); Immature Granulocytes Count 0.020 X10^3/uL (0.0-0.0); Mean Corp Hgb Conc 31.8 g/dL (32-36); Mean Corpuscular Volume 83.9 fL (80-94); Mean Platelet Vol. 9.6 fl (6.2-12.0); NRBC Flagged by Analyzer 0 % (0-5); Platelet Count 185 K/mm3 (150-450); RBC Distribution Width CV 16.7 % (11.6-14.6); RBC Distribution Width SD 50.8 fl (35.1-43.9); Red Blood Count 3.53 M/mm3 (4.6-6.2); White Blood Count 4.7 K/mm3 (4.4-11.0)
--- NOTE | 2025-05-06 21:34 | RAD_ITS ---
EXAM: XR Chest, 1 View CLINICAL INDICATION: SHORTNESS OF BREATH, COUGH TECHNIQUE: Frontal view of the chest. COMPARISON: No relevant prior studies available. FINDINGS: LUNGS AND PLEURAL SPACES: Right bilateral pleural effusions. HEART: Cardiomegaly with pulmonary congestion and edema. Superimposed pneumonia cannot be excluded. MEDIASTINUM: Unremarkable. Normal mediastinal contour. BONES/JOINTS: Unremarkable. No acute fracture. TUBES, LINES AND DEVICES: Left-sided cardiac pacemaker. RAD/Chest 1 View (Portable) IMPRESSION: 1. Cardiomegaly with pulmonary congestion and edema. Superimposed pneumonia ca nnot be excluded. 2. Right bilateral pleural effusions. Reading Location: [id number]
[2025-05-06 22:00] VITALS: PULSE 96; RESP 24; O2SAT 98
[2025-05-06 22:14] LABS: AST(SGOT) 21 U/L (<=37); Alanine Aminotransfer ALT/SGPT 15 U/L (<=46); Albumin, Serum 3.9 g/dL (3.5-5.0); Alkaline Phosphatase 80 U/L (40-129); Anion Gap 13 (5-15); BUN 54 mg/dL (4-19); BUN/Creat Ratio 6.2 RATIO (10-20); Calcium,Total 9.3 mg/dL (7.6-11.0); Carbon Dioxide 28.8 mmol/L (21.0-32.0); Chloride 94 mmol/L (98-108); Estimated Creatinine Clearance 10.15 ml/min (50-250); Globulin 2.9 g/dL (2.2-4.2); Glucose 89 mg/dL (70-99); Potassium 4.6 mmol/L (3.3-5.1)
[2025-05-07] MEDS: HYDROcodone Bitartrate/Apap 5/325 Tablet PO (00:05)
[2025-05-07 00:07] VITALS: BP 149/95; PULSE 96; RESP 24; TEMP 36.7; O2SAT 98
== END 2025-05-07 00:07 | disposition home or self-care (01) ==
PROVIDERS: Emergency Provider Emergency Medicine; Visit Provider Emergency Medicine
DX: R53.81 Other malaise (principal); I13.2 Hypertensive heart and chronic kidney disease with heart failure and with stage 5 chronic kidney disease, or end stage renal disease; N18.6 End stage renal disease; I50.22 Chronic systolic (congestive) heart failure; J44.9 Chronic obstructive pulmonary disease, unspecified; M54.9 Dorsalgia, unspecified; Z99.2 Dependence on renal dialysis; R53.83 Other fatigue
CPT/HCPCS: 71045; 80053; 85025; 87631; 93005; 99284; A4216

== ENCOUNTER 2025-05-17 14:35 | Emergency (ER) | payer MEDICARE, MEDICAID, SELFPAY ==
[2025-05-17 14:36] VITALS: BP 143/89; PULSE 90; RESP 16; TEMP 36.6; O2SAT 95; BMI 22.2
[2025-05-17 14:48] VITALS: BP 141/94; PULSE 87; O2SAT 100
--- NOTE | 2025-05-17 14:55 | EDS_ITS ---
HPI <Dr. Oneil Underwood MD - Last Filed: 05/17/25 16:52> HPI - GI History of Present Illness Chief Complaint: Abd Pain Informant: patient Abdominal Pain/Flank Pain Onset: Days (Started on Friday. Increasing pain.) Context: Gradual Onset Timing: Continuous Quality: Sharp and Stabbing Location: RLQ Current Severity: Moderate Maximum Severity: Moderate Worsened by: Nothing Relieved by: Nothing Nausea/Vomiting/Emesis GI Symptom: Positive for Nausea Onset: Today Severity: Mild Diarrhea/Melena/Hematochezia GI Symptom: Negative for Diarrhea, Melena or Hematochezia Associated Symptoms Associated Symptoms: Positive for - (Patient does not make urine. On dialysis.); Negative for Dysuria, Frequency, Hematuria or Urgency Narrative Narrative: 49-year-old male history of cardiomyopathy with a defibrillator. End-stage renal disease dialysis he does dialysis at home 5 days a week Friday through Friday. History of COPD. He has had prior abdominal surgeries for cholecystectomy, 2 renal transplants and peritoneal dialysis tubes. Patient states on Friday he started having right lower quadrant abdominal pain is progressively worsened. Associated nausea. No vomiting or diarrhea. No constipation. He does not make urine. He has not had pain like this before. He denies any fever or chills. No trauma. Prior similar symptoms: No Recent Illness/Hospitalization: No PFSH <Dr. Oneil Underwood MD - Last Filed: 05/17/25 16:52> PFSH Medical History Inferior vena caval stenosis Steel syndrome Anemia of chronic disease Chest pain History of implantable cardiac defibrillator (ICD) (02/03/15) Chronic systolic (congestive) heart failure Tobacco abuse disorder Systolic murmur Non-ischemic cardiomyopathy GERD (gastroesophageal reflux disease) Anxiety and depression Essential hypertension Problem with dialysis access Non-compliance with renal dialysis Non compliance with medical treatment Non compliance w medication regimen Hyperkalemia COPD (chronic obstructive pulmonary disease) Hyperphosphatemia Anemia due to chronic renal failure treated with erythropoietin, stage 5 ESRD (end stage renal disease) on dialysis Renal transplant failure and rejection Home Medications ?Medication ?Instructions ?Recorded ?Last Taken ?Type acetaminophen 325 mg tablet 650 mg PO Q4H PRN Pain Unknown History sevelamer carbonate 800 mg tablet 800 mg PO TID KIDNEY DISEASE 08/21/21 Unknown History aspirin 81 mg tablet,delayed 81 mg PO DAILY 02/04/24 U nknown History release (Adult Low Dose Aspirin) Held on 03/15/25. Instructions: PACEMAKER BATTERY CHANGE atorvastatin 40 mg tablet (Lipitor) 40 mg PO DAILY Unknown History albuterol sulfate 90 mcg/actuation 2 puff inhalation Q 4H PRN PRN 12/08/24 Unknown History aerosol inhaler wheezing carvedilol 3.125 mg tablet 3.125 mg PO BID 12/08/24 Un known History isosorbide mononitrate 30 mg 30 mg PO BID 12/08/24 Unk nown History tablet,extended release 24 hr nicotine 21 mg/24 hr daily 1 patch topical DAILY 12/08 Unknown History transdermal patch buspirone 5 mg tablet 5 mg PO TID 03/15/25 Unknown History hydralazine 25 mg tablet 25 mg PO TID 03/15/25 Unknow n History ondansetron HCl 4 mg tablet 4 mg PO Q8H PRN PRN nausea and 03/15/25 Unknown History vomiting doxycycline hyclate 100 mg tablet 100 mg PO BID 10 day s #20 tabs 03/16/25 Unknown Rx benzonatate 200 mg capsule 200 mg PO TID PRN cough #20 caps 04/11/25 Unknown Rx methylprednisolone 4 mg tablets in See Rx Instructions PO PER PKG DIR 04/11/25 Unknown Rx a dose pack (Medrol (Syed)) #21 tabs Allergy/AdvReac Type Severity Reaction Status Date / Time Iodinated Contrast Media Allergy Fever and Verified 05/17/25 14:37 (CONTRASTS) skin rash Penicillins Allergy Anaphylaxis Verified 05/17/25 14:37 cyclobenzaprine (From AdvReac dizzy, Verified 05/17/25 14:37 Flexeril) faints tramadol (From Ultram) AdvReac Rash Verified 05/17/25 14:37 Family History Father Diabetes Heart disease Hypertension Presence of implantable cardioverter-defibrillator (ICD) Brother Heart disease Hypertension Diabetes Presence of implantable cardioverter-defibrillator (ICD) LVAD (left ventricular assist device) present Surgical History Hx of cardiac catheterization (~09/26/22) S/P internal cardiac defibrillator procedure Presence of surgically created primary arteriovenous shunt for hemodialysis Hx of cholecystectomy Hx of kidney transplant Hx of partial thyroidectomy (12/07/99) Social History Smoking Status: Light Smoker (<10/day) second hand exposure: Yes quit status: considering quitting alcohol intake: never substance use type: does not use caffeine: Yes Type: carbonated beverages Number of servings: 3 what type of physical activity do you participate in: walking frequency: daily seatbelt use: always ROS <Dr. Oneil Underwood MD - Last Filed: 05/17/25 16:52> ROS ED ROS Narrative Abdominal pain. Nausea. Constitutional Constitutional ED: Denies chills or fever(s) ENT ENT ED: Denies ear pain Cardiovascular Cardiovascular: Denies chest pain Respiratory/Chest Respiratory/Chest: Denies cough or dyspnea Gastrointestinal Gastrointestinal: Reports abdominal pain and nausea; Denies constipation, diarrhea, melena or vomiting Genitourinary Genitourinary ED: Denies dysuria, hematuria or urinary frequency Musculoskeletal Musculoskeletal: Denies arthralgias Integumentary Denies abscess Neurologic Neurologic: Denies headache(s) Psychiatric Psychiatric: Denies anxiety Endocrine Endocrinology: Denies polydipsia Hematologic/Lymphatic Hematologic/Lymphatic: Denies easy bleeding Allergic/Immunologic Allergic/Immunologic ED: Denies mouth swelling or tongue swelling EXAM <Dr. Oneil Underwood MD - Last Filed: 05/17/25 16:52> Physical Exam Narrative Exam Narrative: 49-year-old male vital signs stable afebrile. No acute distress. Family at bedside. H EENT exam pupils round react light. Moist mutes membranes. Neck nontender no JVD. Lungs clear to auscultation. Heart regular rhythm no murmur. Rate about 90. Chest wall ribs nontender. Left side defibrillator and pacemaker. Abdomen soft nondistended normal bowel sounds. Right lower quadrant tenderness. No hernia or mass. Well-healed prior abdominal surgical scars. Right upper left upper left lower quadrant unremarkable. No obvious obstruction. No pulsatile mass. Moving all 4 extremities. Nontender no edema. He has a dialysis shunt in his right upper extremity with a good thrill. He has normal aerospace control and warning systems strength. Normal dorsi plantarflexion. Neurologically he is awake alert. Answer questions following commands. Back nontender. Const Vital Signs: 05/17/25 14:36 05/17/25 14:48 05/17/25 16:38 Temperature 97.9 F Temperature Source Oral Pulse Rate 90 87 91 Respiratory Rate 16 Blood Pressure 143/89 H 141/94 H 135/93 H Blood Pressure Mean 107 109 107 Pulse Ox 95 100 95 Oxygen Delivery Method Room Air Room Air Room Air <Tulio Chung MD - Last Filed: 05/17/25 17:58> Physical Exam Const Vital Signs: 05/17/25 14:36 05/17/25 14:48 05/17/25 16:38 Temperature 97.9 F Temperature Source Oral Pulse Rate 90 87 91 Respiratory Rate 16 Blood Pressure 143/89 H 141/94 H 135/93 H Blood Pressure Mean 107 109 107 Pulse Ox 95 100 95 Oxygen Delivery Method Room Air Room Air Room Air MDM <Dr. Oneil Underwood MD - Last Filed: 05/17/25 16:52> [facility] MDM Narrative Medical decision making narrative: 49-year-old male with significant past medical history with right lower quadrant abdominal pain CAT scan labs to be obtained. Morphine for pain and Zofran for nausea. Differential would include acute appendicitis, mesenteric adenitis, bowel obstruction versus other etiologies. Repeat exam around 3:20 PM. Patient still has abdominal pain. Awaiting labs and his CT the CT is delayed due to his contrast allergy received IV Solu-Medrol and Benadryl. He has not been done as of yet. He will be turned over to the oncoming physician to check his labs and CT results and make final disposition. He is resting comfortably currently does not need any more pain medications at this time. History & Record Review Discussion w/independent historian: Patient and Family Additional record(s) reviewed:: Prior inpatient record, Prior outpatient record, Prior ED visit and Prior labs Lab Data Attestation: I reviewed the patient's lab results. Lab results narrative: CBC shows white count 4.3. H&H 9.8 and 31. Platelets 195. Consistent with prior hemograms. Lipase normal at 17. Liver enzymes are normal. Chemistries show a gap of 17. BUN and creatinine of 71 and 10.8 he is chronic renal failure. Glucose 97. Labs: Laboratory Results - last 24 hr 05/17/25 15:02 WBC 4.3 L RBC 3.65 L Hgb 9.8 L Hct 31.0 L MCV 84.9 MCH 26.8 L MCHC 31.6 L RDW Std Deviation 52.1 H RDW Coeff of Good 17.2 H Plt Count 195 MPV 9.2 Immature Gran % (Auto) 0.200 Neut % (Auto) 67.4 Lymph % (Auto) 16.5 L [place] % (Auto) 9.8 Eos % (Auto) 4.7 Baso % (Auto) 1.4 H Absolute Neuts (auto) 2.9 Absolute Lymphs (auto) 0.71 L Nucleated RBC % 0 Sodium 137 Potassium 5.1 Chloride 93 L Carbon Dioxide 27.3 Anion Gap 17 H BUN 71 H Creatinine 10.80 H* Estim Creat Clear Calc 8.28 L* Est GFR (MDRD) Non-Af 5 L BUN/Creatinine Ratio 6.6 L Glucose 97 Calcium 8.6 Total Bilirubin 0.34 AST 17 ALT 17 Alkaline Phosphatase 103 Total Protein 7.0 Albumin 3.9 Globulin 3.1 Albumin/Globulin Ratio 1.3 Lipase 17 Radiography Diagnostic Testing: Clinical Impression(s) from Imaging Studies Abdomen/Pelvis CT 05/17/25 16:25 IMPRESSION: Severe concentric right basilar pleural thickening with pleural calcifications, most consistent with prior asbestos exposure. Severely atrophic left kidney and absent right kidney. No hydronephrosis. Normal caliber large and small bowel without evidence of acute inflammatory process. Moderate atherosclerosis. No significant intraperitoneal free fluid or free air. Reading Location: [address] <Tulio Chung MD - Last Filed: 05/17/25 17:58> [facility] Lab Data Labs: Laboratory Results - last 24 hr 05/17/25 15:02 WBC 4.3 L RBC 3.65 L Hgb 9.8 L Hct 31.0 L MCV 84.9 MCH 26.8 L MCHC 31.6 L RDW Std Deviation 52.1 H RDW Coeff of Good 17.2 H Plt Count 195 MPV 9.2 Immature Gran % (Auto) 0.200 Neut % (Auto) 67.4 Lymph % (Auto) 16.5 L [place] % (Auto) 9.8 Eos % (Auto) 4.7 Baso % (Auto) 1.4 H Absolute Neuts (auto) 2.9 Absolute Lymphs (auto) 0.71 L Nucleated RBC % 0 Sodium 137 Potassium 5.1 Chloride 93 L Carbon Dioxide 27.3 Anion Gap 17 H BUN 71 H Creatinine 10.80 H* Estim Creat Clear Calc 8.28 L* Est GFR (MDRD) Non-Af 5 L BUN/Creatinine Ratio 6.6 L Glucose 97 Calcium 8.6 Total Bilirubin 0.34 AST 17 ALT 17 Alkaline Phosphatase 103 Total Protein 7.0 Albumin 3.9 Globulin 3.1 Albumin/Globulin Ratio 1.3 Lipase 17 Radiography Diagnostic Testing: Clinical Impression(s) from Imaging Studies Abdomen/Pelvis CT 05/17/25 16:25 IMPRESSION: Severe concentric right basilar pleural thickening with pleural calcifications, most consistent with prior asbestos exposure. Severely atrophic left kidney and absent right kidney. No hydronephrosis. Normal caliber large and small bowel without evidence of acute inflammatory process. Moderate atherosclerosis. No significant intraperitoneal free fluid or free air. Reading Location: [address] Treatment and Re-Evaluation :: Dr. Chung: Patient was endorsed to me by Dr. Underwood to check the CT scanner this patient with right lower quadrant tenderness. He does have history of end- stage renal disease, hypertension, and kidney transplants. I reviewed the radiology report of the CT of the abdomen and pelvis. Severe concentric right basilar pleural thickening with pleural calcifications, most consistent with prior asbestos exposure. Severely atrophic left kidney and absent right kidney. No hydronephrosis. Normal caliber large and small bowel without evidence of acute inflammatory process. Moderate atherosclerosis. No significant intraperitoneal free fluid or free air. Upon repeat examination at approximately 1755, the patient has mild tenderness in the right lower quadrant, but his abdomen remains soft. I doubt he has an acute appendicitis. He is comfortable with discharge. I do feel [id number] medications are appropriate for his right lower quadrant abdominal pain of unknown etiology. Return instructions to the emergency department were reviewed. Patient family comfortable with the plan. Disposition is discharged home in stable condition. Discharge Plan Triage Chief Complaint: Abd Pain ED Provider: Oneil Underwood Dx/Rx/DC Orders Clinical Impression: Abdominal pain, History of end stage renal disease, History of cardiomyopathy, History of cardiac defibrillator placement Instructions: ED Abdominal Pain Unkn Cause Male... Prescriptions: No Action acetaminophen 325 mg tablet 650 mg PO Q4H PRN (Reason: Pain) sevelamer carbonate 800 mg tablet 800 mg PO TID Rx Instructions: must administer with a meal/food atorvastatin [Lipitor] 40 mg tablet 40 mg PO DAILY aspirin [Adult Low Dose Aspirin] 81 mg tablet,delayed release (DR/EC) 81 mg PO DAILY benzonatate 200 mg capsule 200 mg PO TID PRN (Reason: cough) Qty: 20 0RF methylprednisolone [Medrol (Syed)] 4 mg tablets,dose pack See Rx Instructions PO PER PKG DIR Qty: 21 0RF Rx Instructions: PO PER PKG DIR isosorbide mononitrate 30 mg tablet extended release 24 hr 30 mg PO BID carvedilol 3.125 mg tablet 3.125 mg PO BID nicotine 21 mg/24 hr patch 24 hour 1 patch topical DAILY albuterol sulfate 90 mcg/actuation HFA aerosol inhaler 2 puff inhalation Q4H PRN PRN (Reason: wheezing) buspirone 5 mg tablet 5 mg PO TID hydralazine 25 mg tablet 25 mg PO TID ondansetron HCl 4 mg tablet 4 mg PO Q8H PRN PRN (Reason: nausea and vomiting) doxycycline hyclate 100 mg tablet 100 mg PO BID 10 Days Qty: 20 0RF Primary Care Provider: Truman Alston Referrals: Truman Alston DO [Primary Care Provider, Medical] - 3-5 Days if not improving Activity Restrictions/Additional Instructions: The CT of your abdomen and pelvis did not show any acute process currently. Take [id number] medications as needed for pain. Return with fever, increased pain, new or worsening symptoms. Print Language: Ukrainian Disposition Disposition: Home, Self Care
[2025-05-17 15:08] LABS: Hematocrit 31.0 % (40-54); Hemoglobin 9.8 g/dL (13.0-16.5); Immature Granulocytes Count 0.010 X10^3/uL (0.0-0.0); Mean Corp Hgb Conc 31.6 g/dL (32-36); Mean Corpuscular Volume 84.9 fL (80-94); Mean Platelet Vol. 9.2 fl (6.2-12.0); NRBC Flagged by Analyzer 0 % (0-5); Platelet Count 195 K/mm3 (150-450); RBC Distribution Width CV 17.2 % (11.6-14.6); RBC Distribution Width SD 52.1 fl (35.1-43.9); Red Blood Count 3.65 M/mm3 (4.6-6.2); White Blood Count 4.3 K/mm3 (4.4-11.0)
[2025-05-17] MEDS: DiphenhydrAMINE 50 MG/ML Syringe 25 MG IV (15:17)
[2025-05-17 15:43] LABS: Lipase 17 U/L (13-75)
[2025-05-17 15:54] LABS: AST(SGOT) 17 U/L (<=37); Alanine Aminotransfer ALT/SGPT 17 U/L (<=46); Albumin, Serum 3.9 g/dL (3.5-5.0); Alkaline Phosphatase 103 U/L (40-129); Anion Gap 17 (5-15); BUN 71 mg/dL (4-19); BUN/Creat Ratio 6.6 RATIO (10-20); Calcium,Total 8.6 mg/dL (7.6-11.0); Carbon Dioxide 27.3 mmol/L (21.0-32.0); Chloride 93 mmol/L (98-108); Estimated Creatinine Clearance 8.28 ml/min (50-250); Globulin 3.1 g/dL (2.2-4.2); Glucose 97 mg/dL (70-99); Potassium 5.1 mmol/L (3.3-5.1)
--- NOTE | 2025-05-17 16:25 | CT_ITS ---
PROCEDURE: ABDOMEN/PELVIS W IV CONT ONLY 05/17/2025 REASON FOR EXAM: ABD PAIN TECHNIQUE: Procedure Code: [id number] Modality: CT Procedure: ABDOMEN/PELVIS W IV CONT ONLY Coronal and Sagittal reconstruction series were provided. CONTRAST: Isovue-300 VOLUME: 94 mL One or more dose reduction techniques were used (e.g., Automated exposure control, adjustment of the mA and/or kV according to patient size, use of iterative reconstruction technique. RADIATION DOSE SUMMARY: CTDlvol: 36+ 9 mGy DLP: 507 mGycm COMPARISON: 12/08/2024. FINDINGS: Severe concentric pleural thickening of the right basilar lung with pleural calcifications likely indicating prior asbestos exposure. The heart is enlarged. The peripheral soft tissues are unremarkable. Moderate atherosclerosis. Normal caliber abdominal aorta. Redemonstration of calcified lesions within the pelvis which are unchanged in size. The liver is unremarkable. The gallbladder is surgically absent. The pancreas, spleen, and adrenals are unremarkable. Severely atrophic left kidney. Absent right kidney. Normal caliber large and small bowel without surrounding inflammatory changes. No free intraperitoneal air. No significant free intraperitoneal fluid. CT/Abdomen/Pelvis W IV Cont ONLY IMPRESSION: Severe concentric right basilar pleural thickening with pleural calcifications, most consistent with prior asbestos exposure. Severely atrophic left kidney and absent right kidney. No hydronephrosis. Normal caliber large and small bowel without evidence of acute inflammatory pro cess. Moderate atherosclerosis. No significant intraperitoneal free fluid or free air. Reading Location: [address]
[2025-05-17 16:38] VITALS: BP 135/93; PULSE 91; O2SAT 95
[2025-05-17 18:00] VITALS: BP 128/87; PULSE 91; RESP 16; TEMP 36.8; O2SAT 92
== END 2025-05-17 18:09 | disposition home or self-care (01) ==
PROVIDERS: Emergency Provider Emergency Medicine; Visit Provider Emergency Medicine
DX: R10.9 Unspecified abdominal pain (principal); I13.2 Hypertensive heart and chronic kidney disease with heart failure and with stage 5 chronic kidney disease, or end stage renal disease; N18.6 End stage renal disease; Z94.4 Liver transplant status; I50.22 Chronic systolic (congestive) heart failure; J44.9 Chronic obstructive pulmonary disease, unspecified; R11.2 Nausea with vomiting, unspecified; Z99.2 Dependence on renal dialysis; Z95.0 Presence of cardiac pacemaker; Z95.810 Presence of automatic (implantable) cardiac defibrillator; F17.200 Nicotine dependence, unspecified, uncomplicated; Z90.49 Acquired absence of other specified parts of digestive tract
CPT/HCPCS: 74177; 80053; 83690; 85025; 96374; 96375; 99283; Q9967; A4216; J2405